=== PATIENT | female | born 1965 | race Two or more races ===

== ENCOUNTER → 2020-02-16 13:22 | Outpatient (BNVA) | payer MEDICAID, SELFPAY | PROVIDERS: PCP Nurse Practitioner Family; Referring Provider Nurse Practitioner Family; Visit Provider Internal Medicine Endocrinology, Diabetes & Metabolism | DX: E11.21 Type 2 diabetes mellitus with diabetic nephropathy (principal); E11.40 Type 2 diabetes mellitus with diabetic neuropathy, unspecified; Z79.84 Long term (current) use of oral hypoglycemic drugs; I10 Essential (primary) hypertension; E78.5 Hyperlipidemia, unspecified; E66.01 Morbid (severe) obesity due to excess calories; Z68.41 Body mass index [BMI] 40.0-44.9, adult; Z79.899 Other long term (current) drug therapy | CPT/HCPCS: 82947; 99214 ==

== ENCOUNTER 2020-03-20 12:47 | Outpatient (REF) | payer MEDICAID, SELFPAY ==
--- NOTE | 2020-03-20 13:00 | MM_ITS ---
EXAMINATION: MM SCREENING DIGITAL BREAST TOMOSYNTHESIS, BILATERAL CLINICAL INFORMATION: Screening. Asymptomatic. Remote history bilateral reduction mammoplasty. The lifetime risk of breast cancer based on the Tyrer-Cuzick Model is 15%. COMPARISON: Mammography: 02/18/2019, 02/10/2018, 10/28/2017, 02/18/2017 TECHNIQUE: Digital breast tomosynthesis is performed in both the craniocaudal and mediolateral oblique views along with computer-aided detection (CAD). Synthesized 2D images are generated from the tomosynthesis. FINDINGS: There are scattered areas of fibroglandular density (ACR BI-RADS breast composition Category b). There are no significant masses, abnormal calcifications, or other abnormalities. Parenchymal pattern is similar to prior studies. Again, there is stable scarring, greater on left with associated left bulky calcifications of fat necrosis again seen. No significant changes. MM/MM tomosynthesis screening BI IMPRESSION: No significant changes from prior studies. ASSESSMENT: BI-RADS 2: Benign RECOMMENDATION: Routine annual mammography screening. This patient's information was entered into a reminder system with a target due date for their next mammogram.
== END 2020-03-20 12:48 | disposition home or self-care (01) ==
LOC: HO.MAMMO 12:47
PROVIDERS: PCP Nurse Practitioner Family; Visit Provider Nurse Practitioner Family
DX: Z12.31 Encounter for screening mammogram for malignant neoplasm of breast (principal); K21.9 Gastro-esophageal reflux disease without esophagitis; R10.10 Upper abdominal pain, unspecified; E66.01 Morbid (severe) obesity due to excess calories; Z87.19 Personal history of other diseases of the digestive system
CPT/HCPCS: 77063; 77067; 99202

== ENCOUNTER 2020-04-07 12:04 | Outpatient (REF) | payer MEDICAID, SELFPAY | END 2020-04-07 12:05 | disposition home or self-care (01) | LOC: HO.LAB 12:04 | PROVIDERS: Visit Provider Internal Medicine | DX: Z20.828 Contact with and (suspected) exposure to other viral communicable diseases (principal) | CPT/HCPCS: C9803; U0003 ==

== ENCOUNTER → 2020-04-10 13:33 | Outpatient (BNVA) | payer MEDICAID, SELFPAY | PROVIDERS: PCP Nurse Practitioner Family; Referring Provider Nurse Practitioner Family; Visit Provider Internal Medicine Endocrinology, Diabetes & Metabolism | DX: Z76.89 Persons encountering health services in other specified circumstances (principal) ==

== ENCOUNTER 2020-04-25 10:51 | Outpatient (REF) | payer MEDICAID, SELFPAY | END 2020-04-25 10:52 | disposition home or self-care (01) | LOC: HO.LAB 10:51 | PROVIDERS: PCP Nurse Practitioner Family; Visit Provider Nurse Practitioner | DX: Z13.89 Encounter for screening for other disorder (principal) ==

== ENCOUNTER → 2020-05-09 09:30 | Outpatient (BNV) | payer MEDICAID, SELFPAY | PROVIDERS: PCP Nurse Practitioner Family; Visit Provider Internal Medicine Medical Oncology | DX: D47.1 Chronic myeloproliferative disease (principal); D32.9 Benign neoplasm of meninges, unspecified | CPT/HCPCS: 99212; 99213; 99214 ==

== ENCOUNTER 2020-05-14 13:51 | Emergency (ER) | payer MEDICAID, SELFPAY ==
[2020-05-14 14:07] VITALS: BP 125/62; PULSE 86; RESP 16; TEMP 36.4; O2SAT 98; BMI 39.4
[2020-05-14 19:55] VITALS: BP 153/77; PULSE 86; RESP 16; TEMP 35.8; O2SAT 96
--- NOTE | 2020-05-14 22:18 | ECG_ITS ---
Test Reason : ABDOMINAL PAIN Blood Pressure : / mmHG Vent. Rate : 074 BPM Atrial Rate : 074 BPM P-R Int : 128 ms QRS Dur : 114 ms QT Int : 430 ms P-R-T Axes : 064 -55 014 degrees QTc Int : 477 ms Normal sinus rhythm Left anterior fascicular block Voltage criteria for left ventricular hypertrophy Abnormal ECG When compared with ECG of 01-SEP-2019 21:51, No significant change was found Referred By: Rickey Horton Electronically Signed By:ALEXANDRO CORTEZ MD
--- NOTE | 2020-05-14 22:21 | ED.GENADULT ---
HPI - General Adult General Chief complaint: Abdominal Pain Stated complaint: back and abdominal pain Time Seen by Provider: 05/14/20 15:13 Source: patient Mode of arrival: ambulatory Limitations: no limitations and language barrier (French speaking, eligibility technician was used to obtain history) History of Present Illness HPI narrative: 55-year-old female who presents the emergency department for evaluation at abdominal pain. She states that the pain came on gradually yesterday and was intermittent and mild. She states that today the pain is more severe and constant. She runs or hand across her upper abdomen when asked to localize the pain. She also points to her bilateral upper flank area when asked to localize the pain. The pain is a constant, burning sensation which is 10/10 at its worst. She has noted urinary frequency and dysuria. She denied fever, chills, weakness, nausea or vomiting. She states that she has had a good appetite and has been able to eat and drink without any difficulty. This is her 1st episode of this type of pain. Related Data Home Medications Medication Instructions Recorded Confirmed albuterol mcg INHALATION 02/15/20 04/10/20 citalopram 40 mg PO DAILY 02/15/20 04/10/20 fluticasone propionate [Flovent] 2 puff INHALATION BID 02/15/20 04/10/20 folic acid 1 mg PO DAILY 02/15/20 04/10/20 loratadine [Claritin] 10 mg PO DAILY 02/15/20 04/10/20 ondansetron HCl 4 mg PO Q8H PRN 02/15/20 04/10/20 ruxolitinib [Jakafi] 5 mg PO BID 02/15/20 04/10/20 senna 8.6 mg PO BEDTIME 02/15/20 04/10/20 cholecalciferol (vitamin D3) 25 25 mcg PO DAILY 02/16/20 04/10/20 mcg (1,000 unit) capsule quetiapine [Seroquel] 50 mg PO BEDTIME 05/09/20 05/09/20 Previous Rx's Medication Instructions Recorded amlodipine 10 mg tablet 10 mg PO DAILY 90 Days #90 tab 02/16/20 atorvastatin 40 mg tablet 40 mg PO BEDTIME 90 Days #90 tab 02/16/20 lisinopril 5 mg tablet 5 mg PO DAILY 90 Days #90 tab 11/03/20 dicyclomine 20 mg tablet 20 mg PO QID 30 Days #120 tab 03/20/20 pantoprazole 40 mg tablet,delayed 40 mg PO BID #60 tab 03/20/20 release simethicone 180 mg capsule 180 mg PO QID 30 Days #120 cap 03/20/20 metformin 1,000 mg tablet 1,000 mg PO DAILY 90 Days #90 tab 04/10/20 sitagliptin 100 mg tablet 100 mg PO DAILY 90 Days #90 tab 04/10/20 oxycodone 5 mg PO Q4H PRN #14 tab 05/15/20 Allergies Allergy/AdvReac Type Severity Reaction Status Date / Time aspirin [ASPIRIN] Allergy Intermediate SWELLING/ITCHING, Verified 05/09/20 09:34 rash Penicillins Allergy Intermediate ITCHING Verified 05/09/20 09:34 vancomycin [VANCOMYCIN] AdvReac Intermediate RED MAN Verified 05/09/20 09:34 SYNDROME PER MD Review of Systems Review of Systems: Yes all other systems are reviewed and are negative Neurologic: Reports Abnormal speech present [facility] Past Medical History Medical History Asthma Diabetes type 2, controlled Diabetic nephropathy Diabetic neuropathy associated with type 2 diabetes mellitus Dyslipidemia Hypertension Morbid obesity due to excess calories Vitamin B12 deficiency Surgical History H/O stem cell transplant History of partial hysterectomy Hx of breast reduction, elective Hx of colonoscopy Hx of esophagogastroduodenoscopy Family History Family History Father Heart problem HTN (hypertension) Mother Diabetes Family/Other Diabetes HTN (hypertension) Heart problem Social History Social History Alcohol intake: current Alcohol intake frequency: does not drink Smoking Status: Former smoker Advance Directives: No Advance Directives Information Provided: Yes Physical Exam Vital Signs: Vital Signs: Last Vital Signs Temp 98.0 F 05/14/20 22:31 Pulse 70 05/15/20 01:24 Resp 16 05/15/20 01:24 BP 143/69 H 05/15/20 01:24 Pulse Ox 98 05/15/20 01:24 Body Mass Index 39.4 Const: General: cooperative Nutritional Appearance: obese Orientation/consciousness: oriented to person and oriented to place Limitations: no limitations HENMT: Head: Yes normal to inspection, Yes normocephalic and Yes atraumatic Ears: external ears normal General nose exam: Normal external nose present Face and sinus: Yes normal facial exam Mouth: Normal oral and palatal mucosa present Throat: Yes posterior oropharynx normal Eyes: Periorbital: periorbital findings normal Eyelids: Yes eyelids normal Conjunctivae: conjunctivae normal Sclerae: sclerae normal Corneas: corneas normal Pupils: Equal, round and reactive pupils present Direct Ophthalmoscopy: normal light reflex Neck: Neck: Yes full ROM, Yes no lymphadenopathy, Yes no meningeal signs, Yes trachea midline and Yes supple Chest: Chest palpation & inspection: normal inspection of the chest and normal palpation of entire chest wall Resp: Effort & Inspection: normal respiratory effort and able to speak in complete sentences Auscultation: clear to auscultation bilaterally Cardio: Rate: regular rate Rhythm: regular rhythm Heart sounds: S1 normal heart sound present, S2 normal heart sound present and no murmurs GI: Inspection: Yes normal to inspection and Yes obesity Palpation (GI): Soft to palpation, Tenderness to palpation present (GI) in the LUQ (Moderate) and in the RUQ (Moderate), no guarding, not rigid and Hepatomegaly present : General: Yes CVA tenderness bilateral (Moderate) Back/Spine/Pelvis: Back: CVA tenderness Cervical Spine: normal cervical lordosis Thoracic/Lumbar Spine: thoracic and lumbar spine normal to inspection Skin: Lesions: no lesions Rashes: no rashes Wounds: no wounds Neuro: General: oriented to person, oriented to place and no meningeal signs Cranial nerves: Yes Equal, round and reactive pupils present Cognition (Neuro): normal cognition Speech: Abnormal speech present Motor exam (neuro): 5/5 motor strength present throughout Extrem: General: Yes normal to inspection and Yes full ROM Psych: Appearance: well kempt Mental Status: mental status grossly normal Speech and movement: Normal speech and movement present Affect: normal affect Attitude: cooperative Thought process: Normal thought process present Thought content: Normal thought content present Course Course Course Narrative: 55-year-old female with multiple medical problems including diabetes mellitus, hyperlipidemia, GERD, CML, chronic kidney disease who presents to the emergency department for evaluation of 2 days of worsening abdominal pain. The patient did upper abdominal tenderness and bilateral CVA tenderness. I do not have a clear etiology for her pain. I did order an abdominal pain workup to include a CT scan of the abdomen pelvis with IV contrast as well. She was ordered to get normal saline IV x1 L, morphine 4 mg IV and Zofran 4 mg IV. 0556 the patient's laboratory evaluation revealed anemia but this is consistent with her CML. The patient's CT scan did not reveal a clear cause for the patient's pain. She does have incidental 3 mm left kidney stone and a 1.8 cm renal cyst. Urinalysis did reveal positive blood with 5-9 red blood cells and only 1-4 white blood cells. The patient did not get any relief with the initial morphine and she got a 2nd dose of morphine 4 mg IV, Toradol 15 mg IV with no relief for pain. She was given a GI cocktail of Maalox, viscous lidocaine and with no relief for discomfort. This point I do not have a clear etiology for the patient's pain. The patient will be discharged home. She is advised to stay on a bland diet for the next 24 hours. She was advised to take Tylenol and oxycodone for her pain. [facility] search revealed prescriptions for tramadol on a regular basis. She was advised to stop taking tramadol wall taking oxycodone. Medical Decision Making Lab Data Result diagrams: 05/14/20 23:48 05/14/20 23:48 Labs: Lab Results 05/14/20 05/14/20 05/15/20 Range/Units 23:48 23:48 01:29 WBC 7.4 (4.8-10.8) X10*3/uL RBC 3.27 L (4.20-5.50) X10*6/uL Hgb 9.2 L (12.0-16.0) g/dl Hct 28.3 L (37-47) % MCV 86.5 (80-98) fL MCH 28.1 (27.0-33.0) pg MCHC 32.5 (31.0-35.0) g/dl RDW 14.5 (11.0-16.0) % Plt Count 253 (160-400) X10*3/uL MPV 9.2 L (9.4-12.3) fL Immature Gran % (Auto) 0.5 H (0.0-0.4) % Neut % (Auto) 57.3 (45-73) % Lymph % (Auto) 33.1 (20-40) % [place] % (Auto) 7.1 (2-11) % Eos % (Auto) 1.9 (0-4) % Baso % (Auto) 0.1 (0-2) % Lymph # (Auto) 2.5 (1.2-4.9) X10*3/uL [place] # (Auto) 0.5 (0.1-1.2) X10*3/uL Eos # (Auto) 0.1 (0.0-0.4) X10*3/uL Baso # (Auto) 0.0 (0.0-0.2) X10*3/uL Abs Immat Gran (auto) 0.04 H (0.00-0.03) X10*3/uL Absolute Neuts (auto) 4.3 (2.0-8.3) X10*3/uL Absolute Nucleated RBC 0.000 (0.0-0.012) X10*3/uL Nucleated RBC % (auto) 0.0 (0.0-0.2) /100WBC Sodium 144 (135-145) mmol/L Potassium 4.5 (3.3-5.1) mmol/l Chloride 108 (96-108) mmol/L Carbon Dioxide 23 (22-29) mmol/L Anion Gap 18 (12-20) BUN 25 H (9-16) mg/dL Creatinine 1.41 H (0.5-1.4) mg/dL Estim Creat Clear Calc 57.4 Estimated GFR 38 Random Glucose 102 (60-115) mg/dL Calcium 8.6 (8.4-10.2) mg/dL Total Bilirubin 0.3 (0.0-1.0) mg/dL AST 15 (5-31) U/L ALT 18 (0-31) U/L Alkaline Phosphatase 87 (39-117) U/L Total Protein 7.2 (6.5-8.0) g/dL Albumin 4.2 (3.5-5.0) g/dL Lipase 43 (8-78) U/L Urine Color YELLOW Urine Appearance CLEAR Urine pH 7.0 (5.0-8.0) Ur Specific [place] 1.020 (1.005-1.025) Urine Protein NEG (NEG-TRACE) MG/DL Urine Glucose (UA) NEG (NEG) MG/DL Urine Ketones NEG (NEG) MG/DL Urine Blood 1+ H (NEG) Urine Nitrite NEG (NEG) Ur Leukocyte Esterase NEG (NEG) Urine RBC 5-9 H (0) /HPF Urine WBC 1-4 (0-4) /HPF Ur Squamous Epith Cells 1+ /LPF Urine Bacteria 1+ /LPF Urine Mucus 1+ /LPF ECG Data Attestation: I personally reviewed and interpreted this ECG as follows: Interpretation: 2226: Normal sinus rhythm with a rate of 74, normal MS, prolonged QRS of 114 milliseconds, prolonged QTC of 477 milliseconds, left anterior fascicular block, no ST segment elevation, no ST segment depression, nonspecific flattening of the T-wave in lead 3, no old EKG for comparison. No evidence for cardiac ischemia or myocardial injury. Discharge Plan Discharge Clinical Impression: Abdominal pain Qualifiers: Abdominal location: upper abdomen, unspecified Qualified Code(s): R10.10 - Upper abdominal pain, unspecified Patient Disposition: Home, Self-Care Instructions: Abdominal Pain (ED) Additional Instructions: Your laboratory evaluation was unremarkable. The CT scan of your abdomen pelvis did not reveal a clear cause for your pain. Take Tylenol (acetaminophen) 500 mg pills, 2 pills every 4 to 6 hours as needed for pain. For pain not relieved by Tylenol take oxycodone 5 mg pills, 1 pill every 4-6 hours as needed for pain. This medication may be constipated and sleepy. Stop taking your tramadol while you are taking oxycodone. Follow-up with your doctor in 2 days. Please return to the emergency department if your symptoms get worse or if you develop any symptoms that are concerning to you. Prescriptions: New oxycodone 5 mg tablet 5 mg PO Q4H PRN (Reason: pain) Qty: 14 RF: 0 No Action lisinopril 5 mg tablet 5 mg PO DAILY 90 Days Qty: 90 RF: 1 citalopram 40 mg Tablet 40 mg PO DAILY RF: 0 ondansetron HCl 4 mg Tablet 4 mg PO Q8H PRN (Reason: Nausea) RF: 0 folic acid 1 mg Tablet 1 mg PO DAILY RF: 0 albuterol 90 mcg/actuation Aerosol INHALATION RF: 0 loratadine [Claritin] 10 mg Tablet 10 mg PO DAILY RF: 0 Flovent 110 mcg/actuation Hfa Aerosol Inhaler 2 puff INHALATION BID RF: 0 senna 8.6 mg Capsule 8.6 mg PO BEDTIME RF: 0 Jakafi 5 mg Tablet 5 mg PO BID RF: 0 quetiapine [Seroquel] 50 mg Tablet 50 mg PO BEDTIME RF: 0 dicyclomine 20 mg tablet 20 mg PO QID 30 Days Qty: 120 RF: 1 simethicone 180 mg capsule 180 mg PO QID 30 Days Qty: 120 RF: 3 pantoprazole 40 mg tablet,delayed release (DR/EC) 40 mg PO BID Qty: 60 RF: 3 cholecalciferol (vitamin D3) 25 mcg (1,000 unit) capsule 25 mcg PO DAILY RF: 0 amlodipine 10 mg tablet 10 mg PO DAILY 90 Days Qty: 90 RF: 1 atorvastatin 40 mg tablet 40 mg PO BEDTIME 90 Days Qty: 90 RF: 1 metformin 1,000 mg tablet 1,000 mg PO DAILY 90 Days Qty: 90 RF: 1 Januvia 100 mg tablet 100 mg PO DAILY 90 Days Qty: 90 RF: 1
[2020-05-14 22:31] VITALS: BP 107/57; PULSE 73; RESP 14; TEMP 36.7; O2SAT 97
[2020-05-14 23:53] LABS: Basophils Percent Auto 0.1 % (0-2); Eosinophils Absolute Auto 0.1 X10*3/uL (0.0-0.4); Eosinophils Percent Auto 1.9 % (0-4); Hematocrit 28.3 % (37-47); Hemoglobin 9.2 g/dl (12.0-16.0); Imm Gran Abs Auto 0.04 X10*3/uL (0.00-0.03); Imm Gran Pct Auto 0.5 % (0.0-0.4); Lymphocytes Absolute Auto 2.5 X10*3/uL (1.2-4.9); Lymphocytes Percent Auto 33.1 % (20-40); MANUAL DIFF FLAG NO; Mean Corpuscular HGB Conc 32.5 g/dl (31.0-35.0); Mean Corpuscular Hemoglobin 28.1 pg (27.0-33.0); Mean Corpuscular Volume 86.5 fL (80-98); Mean Platelet Volume 9.2 fL (9.4-12.3); Monocytes Absolute Auto 0.5 X10*3/uL (0.1-1.2); Monocytes Percent Auto 7.1 % (2-11); Neutrophils Absolute Auto 4.3 X10*3/uL (2.0-8.3); Neutrophils Percent Auto 57.3 % (45-73); Platelet Count 253 X10*3/uL (160-400); Red Blood Count 3.27 X10*6/uL (4.20-5.50); Red Cell Distribution Width 14.5 % (11.0-16.0); White Blood Count 7.4 X10*3/uL (4.8-10.8)
[2020-05-15 00:20] LABS: Alanine Aminotransferase 18 U/L (0-31); Albumin Level 4.2 g/dL (3.5-5.0); Alkaline Phosphatase 87 U/L (39-117); Anion Gap 18 (12-20); Aspartate Amino Transferase 15 U/L (5-31); Bilirubin Total 0.3 mg/dL (0.0-1.0); Blood Urea Nitrogen 25 mg/dL (9-16); Calcium 8.6 mg/dL (8.4-10.2); Carbon Dioxide 23 mmol/L (22-29); Chloride 108 mmol/L (96-108); Creatinine Clr Calc Pharmacy 57.4; Estimated Glomerular Filt Rate 38; Glucose Random 102 mg/dL (60-115); Lipase 43 U/L (8-78); Potassium 4.5 mmol/l (3.3-5.1); Sodium 144 mmol/L (135-145); Total Protein 7.2 g/dL (6.5-8.0)
--- NOTE | 2020-05-15 00:30 | CT_ITS ---
EXAMINATION: CT ABDOMEN AND PELVIS WITHOUT CONTRAST CLINICAL INFORMATION: Upper abdominal and bilateral flank pain. COMPARISON: 09/01/2019 TECHNIQUE: Multidetector volumetric imaging was performed from the superior aspect of the liver through the pubic symphysis. Sagittal and coronal reformatted images were obtained on the technologist's workstation. This CT examination was performed using dose optimization techniques as appropriate, variously including the following: *Automated exposure control *Adjustment of mA and/or kV according to patient size (this includes techniques or standardized protocols for targeted exams where dose is matched to indication/reason for exam; i.e. extremities or head) *Use of iterative reconstruction technique DLP: 941 mGy-cm FINDINGS: LUNG BASES: Right basilar atelectasis. The visualized cardiac structures are unremarkable. LIVER, GALLBLADDER, AND BILIARY TREE: The liver is normal in size and shape with decreased attenuation. No focal hepatic lesion or biliary ductal dilatation is present. The gallbladder is unremarkable with no evidence of radiopaque gallstones, gallbladder wall thickening, or obvious pericholecystic inflammatory changes. PANCREAS: Unremarkable. SPLEEN: Unremarkable. ADRENAL GLANDS: Unremarkable. KIDNEYS AND URETERS: The kidneys are normal in size, shape, and attenuation. No hydronephrosis or hydroureter. 0.3 cm left midpole calculus there is a right lower pole 1.8 cm cyst. BLADDER: Unremarkable. GASTROINTESTINAL TRACT: Small hiatal hernia. The stomach is otherwise unremarkable. Normal caliber small bowel. There is no obstruction. Normal appendix. No colonic wall thickening or inflammatory change. Mild colonic stool burden. No free air. No free fluid. ABDOMINAL WALL: No significant hernia is appreciated. LYMPH NODES: Normal. VASCULAR: Normal caliber aorta with mild atherosclerotic calcifications. PELVIC VISCERA: The uterus is not seen. No adnexal mass. OSSEOUS STRUCTURES: No acute or suspicious osseous abnormality. Mild degenerative changes noted in the spine. CT/CT abdomen pelvis wo con IMPRESSION: No acute finding of the abdomen or pelvis. Hepatic steatosis. Nonobstructing left midpole renal calculus which is unchanged from prior.
[2020-05-15 01:24] VITALS: BP 143/69; PULSE 70; RESP 16; O2SAT 98
[2020-05-15] MEDS: 0.9 % Sodium Chloride 1,000 ML 999 ML IV (01:26)
[2020-05-15] MEDS: ondansetron HCL 4 MG/2 ML VIAL IVPUSH (01:26)
[2020-05-15] MEDS: Morphine Sulfate 4 MG/ML CARTRIDGE IVPUSH ×2 (01:27→02:42)
[2020-05-15 01:35] LABS: Glucose Urine UA NEG (NEG); Leukocyte Esterase Urine NEG (NEG); Nitrite Urine NEG (NEG); Urine Blood 1+ (NEG); Urine Ketones NEG (NEG); Urine Protein NEG (NEG-TRACE)
[2020-05-15 01:37] LABS: Appearance Urine CLEAR; Color Urine YELLOW
[2020-05-15 01:57] LABS: Bacteria Urine 1+ /LPF; Mucus Urine 1+ /LPF; Squamous Epithelial Cell Urine 1+ /LPF
[2020-05-15] MEDS: Magnesium Hydrox/Alum Hydrox 30 ML ORAL.SUSP PO (05:35)
[2020-05-15] MEDS: Lidocaine HCl Viscous 2 % 15 ML SOLUTION MUCOUS MEM (05:35)
[2020-05-15] MEDS: PHENobarb/Hyoscy/Atropine/Scop 10 ML ELIXIR PO (05:36)
[2020-05-15 06:00] VITALS: BP 98/48; PULSE 72; RESP 14; O2SAT 95
[2020-05-15] MEDS: Ketorolac Tromethamine 15 MG/ML VIAL IV (06:19)
== END 2020-05-15 06:24 | disposition home or self-care (01) ==
PROVIDERS: Emergency Provider Emergency Medicine Emergency Medical Services; PCP Nurse Practitioner Family
DX: R10.10 Upper abdominal pain, unspecified (principal); M54.5 Low back pain; Z79.899 Other long term (current) drug therapy
CPT/HCPCS: 36415; 74176; 80053; 81001; 83690; 85025; 93005; 96361; 96374; 96375; 96376; 99284; J1885; J2270; J2405

== ENCOUNTER 2020-06-26 10:39 | Outpatient (REF) | payer MEDICAID, SELFPAY | END 2020-06-26 10:40 | disposition home or self-care (01) | LOC: HO.LNP 10:39 | PROVIDERS: Visit Provider Nurse Practitioner | DX: R10.10 Upper abdominal pain, unspecified (principal); K21.9 Gastro-esophageal reflux disease without esophagitis | CPT/HCPCS: 87338 ==

== ENCOUNTER → 2020-07-10 14:08 | Outpatient (BNVA) | payer MEDICAID, SELFPAY | PROVIDERS: PCP Nurse Practitioner Family; Visit Provider Nurse Practitioner ==

== ENCOUNTER → 2020-07-17 13:06 | Outpatient (BNVA) | payer MEDICAID, SELFPAY | PROVIDERS: PCP Nurse Practitioner Family; Visit Provider Internal Medicine Endocrinology, Diabetes & Metabolism | DX: E11.40 Type 2 diabetes mellitus with diabetic neuropathy, unspecified (principal); E11.21 Type 2 diabetes mellitus with diabetic nephropathy; E66.01 Morbid (severe) obesity due to excess calories; E78.5 Hyperlipidemia, unspecified; I10 Essential (primary) hypertension | CPT/HCPCS: 82947; 99212 ==

== ENCOUNTER → 2020-07-25 08:01 | Outpatient (REF) | payer MEDICAID, SELFPAY ==
--- NOTE | ~2020-07-25 | NM_ITS ---
EXAMINATION: BILIARY TRACT IMAGING STUDY WITH CCK CLINICAL INFORMATION: Periumbilical pain.. COMPARISON: No previous biliary scan is available for comparison. The diagnostic CT scan of the abdomen and pelvis, dated 05/15/2020, is available for comparison. TECHNIQUE: Serial gamma scintillation camera images were obtained over the abdomen for a total observation period of 110 minutes following the intravenous administration of 5.0 mCi Tc-99m Mebrofenin. FINDINGS: There is good concentration of activity in the liver by 5 minutes post injection. Biliary activity is visualized by 10 minutes. The gallbladder is well visualized by 30 minutes. Small bowel is well visualized by 35 minutes. At 80 minutes post radiopharmaceutical injection, a 30-minute infusion of 2.3 micrograms Sincalide was then begun and an additional third minutes of images were obtained. There is only minimal gallbladder emptying during the sincalide infusion. At the end of the study there is abnormal retention in the gallbladder but almost complete clearance of activity from the liver and visualization of diffuse small bowel activity. The calculated gallbladder ejection fraction is 19% (normal gallbladder ejection fraction is greater than 35%). NM/NM hepatobiliary w pharm IMPRESSION: 1. Visualization of the gallbladder is evidence of a patent cystic duct and strong evidence against the diagnosis of acute cholecystitis. The common bile duct is patent. Liver function appears normal. 2. Poor gallbladder emptying and a low gallbladder ejection fraction are evidence of impaired gallbladder contractility and most likely due to chronic cholecystitis.
== END ==
LOC: HO.NUCMED 08:01
PROVIDERS: Visit Provider Nurse Practitioner
DX: R10.33 Periumbilical pain (principal); R14.0 Abdominal distension (gaseous); K21.9 Gastro-esophageal reflux disease without esophagitis
CPT/HCPCS: 78227; A9537; J2805

== ENCOUNTER → 2020-08-08 13:18 | Outpatient (BNVA) | payer MEDICAID, SELFPAY | PROVIDERS: Visit Provider Nurse Practitioner ==

== ENCOUNTER → 2020-08-10 14:08 | Outpatient (BNVA) | payer MEDICAID, SELFPAY | PROVIDERS: Visit Provider Surgery | DX: K82.8 Other specified diseases of gallbladder (principal); E66.01 Morbid (severe) obesity due to excess calories | CPT/HCPCS: 99202 ==

== ENCOUNTER 2020-09-05 09:20 | Outpatient (REF) | payer MEDICAID, SELFPAY | END 2020-09-05 09:21 | disposition home or self-care (01) | LOC: HO.LAB 09:20 | PROVIDERS: Visit Provider Internal Medicine | DX: Z20.822 Contact with and (suspected) exposure to COVID-19 (principal) | CPT/HCPCS: C9803; U0003; U0005 ==

== ENCOUNTER → 2020-10-04 14:31 | Outpatient (BNVA) | payer MEDICAID, SELFPAY | PROVIDERS: PCP Internal Medicine; Referring Provider Internal Medicine; Visit Provider Surgery | DX: K82.8 Other specified diseases of gallbladder (principal) | CPT/HCPCS: 99212 ==

== ENCOUNTER 2020-10-05 13:05 | Emergency (ER) | payer MEDICAID, SELFPAY ==
[2020-10-05 14:11] VITALS: BP 105/61; PULSE 74; RESP 18; TEMP 37; O2SAT 98; BMI 85.9
--- NOTE | 2020-10-05 14:53 | ED.GENADULT ---
HPI - General Adult General Chief complaint: General Medical Stated complaint: CONGESTION AND NOSE PAIN Time Seen by Provider: 10/05/20 14:53 Source: patient Limitations: language barrier History of Present Illness HPI narrative: Patient complaining of facial pain nasal congestion sinus pressure. Worsening over the past 24 hours 8/10 pain. No nausea vomiting chest pain shortness of breath. No dental pain at this time. Patient has longstanding history of asthma diabetes. Patient also has a history of obstructive sleep apnea reflux. No exposure to COVID-19. Patient has been fully vaccinated for COVID-19. Patient also has a small bump in the inside of her nasal passage Related Data Home Medications Medication Instructions Recorded Confirmed albuterol mcg INHALATION 02/15/20 10/04/20 citalopram 40 mg PO DAILY 02/15/20 10/04/20 fluticasone propionate [Flovent] 2 puff INHALATION BID 02/15/20 10/04/20 loratadine [Claritin] 10 mg PO DAILY 02/15/20 10/04/20 ondansetron HCl 4 mg PO Q8H PRN 02/15/20 10/04/20 ruxolitinib [Jakafi] 5 mg PO BID 02/15/20 10/04/20 senna 8.6 mg PO BEDTIME 02/15/20 10/04/20 cholecalciferol (vitamin D3) 25 25 mcg PO DAILY 02/16/20 10/04/20 mcg (1,000 unit) capsule quetiapine [Seroquel] 50 mg PO BEDTIME 05/09/20 10/04/20 acetaminophen 500 mg tablet 500 mg PO Q6H PRN 07/10/20 10/04/20 tramadol 50 mg tablet 50 mg PO Q8H PRN 07/10/20 10/04/20 zolpidem 5 mg tablet 5 mg PO BEDTIME PRN 07/17/20 10/04/20 Previous Rx's Medication Instructions Recorded oxycodone 5 mg PO Q4H PRN #14 tab 05/15/20 hyoscyamine sulfate 0.125 mg 0.125 mg PO BID-QID PRN 30 Days 07/10/20 sublingual tablet #90 tab metformin 1,000 mg tablet 1,000 mg PO DAILY 90 Days #90 tab 07/17/20 sitagliptin 50 mg tablet 50 mg PO DAILY 90 Days #90 tab 07/17/20 folic acid 1 mg PO DAILY tab 07/24/20 folic acid 1 mg PO DAILY #90 tab 07/25/20 [id number]-[id number] 1 cap PO .QIDAC 30 Days #120 cap 07/26/20 24,000-76,000-120,000 unit capsule,delayed rel simethicone 180 mg capsule 180 mg PO QID 30 Days #120 cap 08/08/20 amlodipine 10 mg tablet 10 mg PO DAILY 90 Days #90 tab 08/23/20 canagliflozin 100 mg tablet 100 mg PO DAILY 90 Days #90 tab 08/23/20 pantoprazole 40 mg tablet,delayed 40 mg PO BID #56 tab 09/04/20 release lisinopril 5 mg tablet 5 mg PO DAILY 90 Days #90 tab 09/18/20 atorvastatin 40 mg tablet 40 mg PO BEDTIME 90 Days #90 tab 09/19/20 doxycycline hyclate 100 mg PO BID #10 cap 10/05/20 mupirocin 1 appl TOPICAL BID 10 Days #15 g 10/05/20 Allergies Allergy/AdvReac Type Severity Reaction Status Date / Time aspirin [ASPIRIN] Allergy Intermediate SWELLING/ITCHING, Verified 10/05/20 14:11 rash Penicillins Allergy Intermediate ITCHING Verified 10/05/20 14:11 vancomycin [VANCOMYCIN] AdvReac Intermediate RED MAN Verified 10/05/20 14:11 SYNDROME PER MD Review of Systems Constitutional: Constitutional: Denies chills, Denies fatigue, Denies fever(s) and Denies headache(s) Eyes: Eyes: Denies itchy eyes ENT: Reports facial pain, Denies headache(s), Reports nasal congestion, Reports nasal discharge, Reports sinus pressure and Denies sore throat Cardiovascular: Cardiovascular: Denies chest pain and Denies dyspnea Respiratory: Respiratory: Denies cough and Denies dyspnea Gastrointestinal: Gastrointestinal: Denies nausea and Denies vomiting Musculoskeletal: Musculoskeletal: Reports no additional musculoskeletal complaints Neurologic: Denies headache(s) Endocrine: Endocrine: Denies fatigue Allergic/Immunologic: Allergic/Immunologic: Denies urticaria and Denies itchy eyes PMFSH Past Medical History Attestation statement: The following information was validated with the patient. Medical History Asthma Biliary dyskinesia Chronic myeloproliferative disease CKD stage 3 due to type 2 diabetes mellitus Diabetes type 2, controlled Diabetic nephropathy Diabetic neuropathy associated with type 2 diabetes mellitus Dyslipidemia GERD (gastroesophageal reflux disease) History of gastritis Hypertension Morbid obesity due to excess calories Upper abdominal pain Vitamin B12 deficiency Surgical History H/O stem cell transplant History of partial hysterectomy Hx of breast reduction, elective Hx of colonoscopy Hx of esophagogastroduodenoscopy Family History Family History Father Heart problem HTN (hypertension) Mother Diabetes Family/Other Diabetes HTN (hypertension) Heart problem Sister Cancer Social History Social History Alcohol intake: current Alcohol intake frequency: does not drink Advance Directives: Yes Advance Directives Information Provided: Yes Advance Directives on File: No Patient : No Physical Exam Vital Signs: Vital Signs: Last Vital Signs Temp 98.6 F 10/05/20 14:11 Pulse 74 10/05/20 14:11 Resp 18 10/05/20 14:11 BP 105/61 10/05/20 14:11 Pulse Ox 98 10/05/20 14:11 Body Mass Index 85.9 vital signs have been reviewed as normal and appeared to be correct. Blood pressure normal. Heart rate normal. Respiration rate normal. Temperature normal. Oxygen saturation normal. Appearance: Alert. Oriented X3. No acute distress. Head: Normal external exam. Normocephalic. Atraumatic. No Hickman signs noted. No raccoon eyes noted Eyes: PERRLA. EOMI. Conjunctiva and sclera normal. Eyelids normal. ENT: Pharynx normal. Uvula midline. Positive nasal congestion sinus pressure positive sinus tenderness maxillary frontal right greater than left. Right naris patient has a small area of erythema medial aspect not appear fluctuant. Neck: Soft full range of motion, no JVD CVS: Heart regular rate and rhythm no murmurs and rubs Respiratory: Breath sounds are clear to auscultation bilaterally. No accessory muscle use noted. Skin: Skin warm and dry. Normal skin color. No rashes noted Extremities: No lower extremity edema. Extremities exhibit normal range of motion. Extremities nontender. Patient ambulatory Neuro: Oriented X 3. No motor deficit. No sensory deficit. Reflexes normal. Course Course Course Narrative: Differential diagnosis: Sinusitis URI Viral syndrome seasonal allergies Right nasal abscess Systems consistent with sinusitis Will also prescribe Bactroban nasally Discharge Plan Discharge Clinical Impression: Sinusitis Patient Disposition: Home, Self-Care Instructions: Sinusitis (ED) Prescriptions: New doxycycline hyclate 100 mg capsule 100 mg PO BID Qty: 10 RF: 0 mupirocin 2 % ointment 1 appl topical BID 10 Days Qty: 15 RF: 0 No Action folic acid 1 mg Tablet 1 mg PO DAILY RF: 0 Creon 24,000-76,000 -120,000 unit capsule,delayed release(DR/EC) 1 cap PO .QIDAC 30 Days Qty: 120 RF: 6 Invokana 100 mg tablet 100 mg PO DAILY 90 Days Qty: 90 RF: 2 amlodipine 10 mg tablet 10 mg PO DAILY 90 Days Qty: 90 RF: 1 pantoprazole 40 mg tablet,delayed release (DR/EC) 40 mg PO BID Qty: 56 RF: 1 lisinopril 5 mg tablet 5 mg PO DAILY 90 Days Qty: 90 RF: 1 atorvastatin 40 mg tablet 40 mg PO BEDTIME 90 Days Qty: 90 RF: 1 folic acid 1 mg Tablet 1 mg PO DAILY Qty: 90 RF: 3 citalopram 40 mg Tablet 40 mg PO DAILY RF: 0 ondansetron HCl 4 mg Tablet 4 mg PO Q8H PRN (Reason: Nausea) RF: 0 albuterol 90 mcg/actuation Aerosol INHALATION RF: 0 loratadine [Claritin] 10 mg Tablet 10 mg PO DAILY RF: 0 Flovent 110 mcg/actuation Hfa Aerosol Inhaler 2 puff INHALATION BID RF: 0 senna 8.6 mg Capsule 8.6 mg PO BEDTIME RF: 0 Jakafi 5 mg Tablet 5 mg PO BID RF: 0 quetiapine [Seroquel] 50 mg Tablet 50 mg PO BEDTIME RF: 0 oxycodone 5 mg tablet 5 mg PO Q4H PRN (Reason: pain) Qty: 14 RF: 0 tramadol 50 mg tablet 50 mg PO Q8H PRNRF: 0 acetaminophen [Tylenol Extra Strength] 500 mg tablet 500 mg PO Q6H PRNRF: 0 hyoscyamine sulfate [Levsin/SL] 0.125 mg tablet, sublingual 0.125 mg PO BID-QID PRN (Reason: cramping) 30 Days Qty: 90 RF: 6 cholecalciferol (vitamin D3) 25 mcg (1,000 unit) capsule 25 mcg PO DAILY RF: 0 zolpidem [Ambien] 5 mg tablet 5 mg PO BEDTIME PRNRF: 0 metformin 1,000 mg tablet 1,000 mg PO DAILY 90 Days Qty: 90 RF: 1 Januvia 50 mg tablet 50 mg PO DAILY 90 Days Qty: 90 RF: 2 simethicone 180 mg capsule 180 mg PO QID 30 Days Qty: 120 RF: 3 Referrals: Kalpana Baptiste MD [Primary Care Provider] - 2 days Print Language: [place] Leonean
== END 2020-10-05 15:35 | disposition home or self-care (01) ==
PROVIDERS: Emergency Provider Emergency Medicine; PCP Internal Medicine
DX: J32.8 Other chronic sinusitis (principal); E11.22 Type 2 diabetes mellitus with diabetic chronic kidney disease; I12.9 Hypertensive chronic kidney disease with stage 1 through stage 4 chronic kidney disease, or unspecified chronic kidney disease; N18.30 Chronic kidney disease, stage 3 unspecified; E78.5 Hyperlipidemia, unspecified; E66.01 Morbid (severe) obesity due to excess calories; Z79.02 Long term (current) use of antithrombotics/antiplatelets; Z79.899 Other long term (current) drug therapy; Z79.84 Long term (current) use of oral hypoglycemic drugs
CPT/HCPCS: 99283

== ENCOUNTER 2020-10-11 10:46 | Outpatient (REF) | payer MEDICAID, SELFPAY ==
--- NOTE | ~2020-10-11 | XR_ITS ---
EXAMINATION: XR CHEST CLINICAL INFORMATION: Cough COMPARISON: Chest radiographs 05/17/2019, 02/03/2019 TECHNIQUE: 2 views of the chest were obtained. FINDINGS: The lungs appear grossly clear with no lobar or segmental airspace consolidation, groundglass opacity, or effusion. The costophrenic sulci are clear. The heart is normal in size. The hilar and mediastinal contours and bony structures are similar to prior study. XR/XR chest 2V IMPRESSION: Unremarkable examination.
== END 2020-10-11 10:47 | disposition home or self-care (01) ==
LOC: HO.XRAY 10:46
PROVIDERS: Absent Provider Internal Medicine; PCP Internal Medicine; Visit Provider Emergency Medicine
DX: R05 Cough (principal)
CPT/HCPCS: 71046

== ENCOUNTER 2020-11-03 12:26 | Emergency (ER) | payer MEDICAID, SELFPAY ==
--- NOTE | ~2020-11-03 | CT_ITS ---
EXAMINATION: CT ABDOMEN AND PELVIS WITHOUT CONTRAST CLINICAL INFORMATION: Bilateral flank pain. COMPARISON: CT abdomen and pelvis without contrast. TECHNIQUE: Multidetector volumetric imaging was performed from the superior aspect of the liver through the pubic symphysis. Sagittal and coronal reformatted images were obtained on the technologist's workstation. This CT examination was performed using dose optimization techniques as appropriate, variously including the following: *Automated exposure control *Adjustment of mA and/or kV according to patient size (this includes techniques or standardized protocols for targeted exams where dose is matched to indication/reason for exam; i.e. extremities or head) *Use of iterative reconstruction technique DLP: 1048 mGy-cm FINDINGS: LUNG BASES: The lung bases are clear. There is a right basilar atelectasis. Heart size is normal. LIVER, GALLBLADDER, AND BILIARY TREE: The liver is normal in size, shape, and attenuation. No focal hepatic lesion or biliary ductal dilatation is present. The gallbladder is unremarkable with no evidence of radiopaque gallstones, gallbladder wall thickening, or obvious pericholecystic inflammatory changes. PANCREAS: Unremarkable. SPLEEN: Unremarkable. ADRENAL GLANDS: Unremarkable. KIDNEYS AND URETERS: The kidneys are normal in size, shape, and attenuation. There is a 5 mm nonobstructive radiopaque calculi mid pole left kidney. No caliectasis or hydronephrosis seen. There is no perinephric stranding. BLADDER: Unremarkable. GASTROINTESTINAL TRACT: There is scattered stool, diverticuli and gas seen throughout the colon without significant distention. The small bowel loops are normal caliber. No free air or free fluid seen. ABDOMINAL WALL: No significant hernia is appreciated. LYMPH NODES: No abnormal size lymph nodes or mass seen. VASCULAR: There is atherosclerotic calcification of abdominal aorta. PELVIC VISCERA: The uterus is atrophied or surgically absent. No adnexal mass or free fluid seen. No evidence of hernia. . OSSEOUS STRUCTURES: There are degenerative disc changes with vacuum disc phenomena L4-L5 disc level. No lytic or sclerotic process. CT/CT abdomen pelvis wo con IMPRESSION: No acute intra-abdominal process seen. Nonobstructive 5 mm radiopaque calculi mid pole left kidney. No hydroureteronephrosis seen in either kidney. Mild constipation.
[2020-11-03 12:34] VITALS: BP 113/61; PULSE 81; RESP 20; TEMP 37.1; O2SAT 98; BMI 38.7
[2020-11-03 13:01] LABS: Glucose Urine UA 500 MG/DL (NEG); Leukocyte Esterase Urine 1+ (NEG); Nitrite Urine NEG (NEG); UACC Culture Trigger YES; Urine Blood 1+ (NEG); Urine Ketones NEG (NEG); Urine Protein NEG (NEG-TRACE)
[2020-11-03 13:04] LABS: Appearance Urine CLEAR; Color Urine YELLOW
[2020-11-03 13:19] LABS: Mucus Urine 2+ /LPF; Squamous Epithelial Cell Urine 2+ /LPF
[2020-11-03 14:13] LABS: MANUAL DIFF FLAG NO
--- NOTE | 2020-11-03 14:14 | ED_ITS ---
HPI - General Adult General Chief complaint: General Medical Stated complaint: flank pain Time Seen by Provider: 11/03/20 13:42 Source: patient Mode of arrival: ambulatory Limitations: language barrier ( Hungarian speaking only, [employer] reports developer used) History of Present Illness HPI narrative: 55-year-old female who presents emergency department for evaluation of bilateral flank pain x3 days. The patient states the pain came on gradually in her left flank and then she also developed right flank pain. She describes the pain as a constant, burning sensation which is 10/10 at its worst. She does have urinary frequency and dysuria. She denied fever, chills, nausea, vomiting, chest pain, shortness of breath. The patient took Tylenol with no relief for pain. She states this the 1st episode of this type pain. The patient was seen by me on 05/14/2020 for abdominal pain. She had a CT scan of the abdomen pelvis at that time. There was no clear source for the patient's abdominal pain at that time but she did have a 3 mm left midpole renal calculus. Related Data Home Medications Medication Instructions Recorded Confirmed albuterol mcg INHALATION 02/15/20 10/04/20 citalopram 40 mg PO DAILY 02/15/20 10/04/20 fluticasone propionate [Flovent] 2 puff INHALATION BID 02/15/20 10/04/20 loratadine [Claritin] 10 mg PO DAILY 02/15/20 10/04/20 ondansetron HCl 4 mg PO Q8H PRN 02/15/20 10/04/20 ruxolitinib [Jakafi] 5 mg PO BID 02/15/20 10/04/20 senna 8.6 mg PO BEDTIME 02/15/20 10/04/20 cholecalciferol (vitamin D3) 25 25 mcg PO DAILY 02/16/20 10/04/20 mcg (1,000 unit) capsule quetiapine [Seroquel] 50 mg PO BEDTIME 05/09/20 10/04/20 acetaminophen 500 mg tablet 500 mg PO Q6H PRN 07/10/20 10/04/20 tramadol 50 mg tablet 50 mg PO Q8H PRN 07/10/20 10/04/20 zolpidem 5 mg tablet 5 mg PO BEDTIME PRN 07/17/20 10/04/20 Previous Rx's Medication Instructions Recorded oxycodone 5 mg PO Q4H PRN #14 tab 05/15/20 hyoscyamine sulfate 0.125 mg 0.125 mg PO BID-QID PRN 30 Days 07/10/20 sublingual tablet #90 tab metformin 1,000 mg tablet 1,000 mg PO DAILY 90 Days #90 tab 07/17/20 sitagliptin 50 mg tablet 50 mg PO DAILY 90 Days #90 tab 07/17/20 folic acid 1 mg PO DAILY tab 07/24/20 folic acid 1 mg PO DAILY #90 tab 07/25/20 [id number] 1 cap PO .QIDAC 30 Days #120 cap 07/26/20 24,000-76,000-120,000 unit capsule,delayed rel simethicone 180 mg capsule 180 mg PO QID 30 Days #120 cap 08/08/20 amlodipine 10 mg tablet 10 mg PO DAILY 90 Days #90 tab 08/23/20 canagliflozin 100 mg tablet 100 mg PO DAILY 90 Days #90 tab 08/23/20 pantoprazole 40 mg tablet,delayed 40 mg PO BID #56 tab 09/04/20 release lisinopril 5 mg tablet 5 mg PO DAILY 90 Days #90 tab 09/18/20 atorvastatin 40 mg tablet 40 mg PO BEDTIME 90 Days #90 tab 09/19/20 doxycycline hyclate 100 mg PO BID #10 cap 10/05/20 mupirocin 1 appl TOPICAL BID 10 Days #15 g 10/05/20 Allergies Allergy/AdvReac Type Severity Reaction Status Date / Time aspirin [ASPIRIN] Allergy Intermediate SWELLING/ITCHING, Verified 10/05/20 14:11 rash Penicillins Allergy Intermediate ITCHING Verified 10/05/20 14:11 vancomycin [VANCOMYCIN] AdvReac Intermediate RED MAN Verified 10/05/20 14:11 SYNDROME PER MD Review of Systems Review of Systems: Yes all other systems are reviewed and are negative [facility] Past Medical History [facility] Narrative: Social history: She denies tobacco, alcohol and drug use. Medical History Asthma Biliary dyskinesia Chronic myeloproliferative disease CKD stage 3 due to type 2 diabetes mellitus Diabetes type 2, controlled Diabetic nephropathy Diabetic neuropathy associated with type 2 diabetes mellitus Dyslipidemia GERD (gastroesophageal reflux disease) History of gastritis Hypertension Morbid obesity due to excess calories Upper abdominal pain Vitamin B12 deficiency Surgical History H/O stem cell transplant History of partial hysterectomy Hx of breast reduction, elective Hx of colonoscopy Hx of esophagogastroduodenoscopy Family History Family History Father Heart problem HTN (hypertension) Mother Diabetes Family/Other Diabetes HTN (hypertension) Heart problem Sister Cancer Social History Social History Alcohol intake: current Alcohol intake frequency: does not drink Advance Directives: No Advance Directives Information Provided: No Physical Exam Vital Signs: Vital Signs: Last Vital Signs Temp 98.7 F 11/03/20 14:40 Pulse 68 11/03/20 14:40 Resp 17 11/03/20 14:40 BP 120/75 11/03/20 14:40 Pulse Ox 97 11/03/20 14:40 Body Mass Index 38.7 Const: General: cooperative and in distress ( Secondary to pain) moderate Nutritional Appearance: obese Orientation/consciousness: oriented to person and oriented to place Limitations: no limitations HENMT: Head: Yes normal to inspection, Yes normocephalic and Yes atraumatic Ears: external ears normal General nose exam: Normal external nose present Face and sinus: Yes normal facial exam Mouth: Normal oral and palatal mucosa present Throat: Yes posterior oropharynx normal Eyes: Periorbital: periorbital findings normal Eyelids: Yes eyelids normal Conjunctivae: conjunctivae normal Sclerae: sclerae normal Corneas: corneas normal Pupils: Equal, round and reactive pupils present Direct Ophthalmoscopy: normal light reflex Neck: Neck: Yes full ROM, Yes no lymphadenopathy, Yes no meningeal signs, Yes trachea midline and Yes supple Chest: Chest palpation & inspection: normal inspection of the chest and normal palpation of entire chest wall Resp: Effort & Inspection: normal respiratory effort and able to speak in complete sentences Auscultation: clear to auscultation bilaterally Cardio: Rate: regular rate Rhythm: regular rhythm Heart sounds: S1 normal heart sound present, S2 normal heart sound present and no murmurs GI: Inspection: Yes normal to inspection Palpation (GI): Soft to palpation, nontender, no guarding, not rigid and No hepatosplenomegaly present : General: Yes CVA tenderness on the left ( moderate) Back/Spine/Pelvis: Back: CVA tenderness Cervical Spine: normal cervical lordosis Thoracic/Lumbar Spine: thoracic and lumbar spine normal to inspection Skin: Lesions: no lesions Rashes: no rashes Wounds: no wounds Neuro: General: oriented to person, oriented to place and no meningeal signs Cranial nerves: Yes CN's II-XII intact bilaterally and Yes Equal, round and reactive pupils present Cognition (Neuro): normal cognition Motor exam (neuro): 5/5 motor strength present throughout Extrem: General: Yes normal to inspection and Yes full ROM Psych: Appearance: well kempt Mental Status: mental status grossly normal Speech and movement: Normal speech and movement present Affect: normal affect Attitude: cooperative Thought process: Normal thought process present Thought content: Normal thought content present Course Course Course Narrative: 55-year-old female who presents emergency department for evaluation of bilateral flank pain, the pain started 3 days prior on the left flank and then also developed in the right flank area. The patient has had urinary symptoms including dysuria and frequency. Vital signs were normal. Physical examination did reveal left flank tenderness otherwise was unremarkable. I ordered a CBC, CMP, lipase, CT scan of the abdomen pelvis without IV contrast. Patient's pain was treated with Toradol 30 mg IV and morphine 4 mg IV. She was given Zofran 4 mg IV for nausea and normal saline x1 L. 1626: The patient's laboratory evaluation revealed a chronic anemia. Her BUN and creatinine are chronically elevated as well, urinalysis and microscopic revealed 5-9 WBCs but no bacteria. CT scan of the abdomen pelvis without IV contrast revealed no clear cause for the patient's pain. The patient got some improvement with the IV morphine, was given a 2nd dose 4 mg IV. At this time, I do not have a clear etiology for the patient's pain, it is possible it may be musculoskeletal. The patient will be discharged home from a she is advised to take Tylenol for pain. She was also given a prescription for morphine 15 mg every 4-6 hours as needed for pain, dispense 10 tablets. The patient was given verbal and printed instructions prior to discharge. The patient was advised to follow-up with their PCP in 2 days and to return to the emergency department if their symptoms get worse or if they develop any new symptoms that are concerning to them Medical Decision Making Lab Data Result diagrams: 11/03/20 14:09 11/03/20 14:09 Labs: Lab Results 11/03/20 11/03/20 11/03/20 Range/Units 12:50 14:09 14:09 WBC 7.4 (4.8-10.8) X10*3/uL RBC 3.14 L (4.20-5.50) X10*6/uL Hgb 9.0 L (12.0-16.0) g/dl Hct 27.6 L (37-47) % MCV 87.9 (80-98) fL MCH 28.7 (27.0-33.0) pg MCHC 32.6 (31.0-35.0) g/dl RDW 14.7 (11.0-16.0) % Plt Count 297 (160-400) X10*3/uL MPV 8.9 L (9.4-12.3) fL Immature Gran % (Auto) 0.7 H (0.0-0.4) % Neut % (Auto) 58.5 (45-73) % Lymph % (Auto) 32.0 (20-40) % [place] % (Auto) 6.5 (2-11) % Eos % (Auto) 2.2 (0-4) % Baso % (Auto) 0.1 (0-2) % Lymph # (Auto) 2.4 (1.2-4.9) X10*3/uL [place] # (Auto) 0.5 (0.1-1.2) X10*3/uL Eos # (Auto) 0.2 (0.0-0.4) X10*3/uL Baso # (Auto) 0.0 (0.0-0.2) X10*3/uL Abs Immat Gran (auto) 0.05 H (0.00-0.03) X10*3/uL Absolute Neuts (auto) 4.3 (2.0-8.3) X10*3/uL Absolute Nucleated RBC 0.000 (0.0-0.012) X10*3/uL Nucleated RBC % (auto) 0.0 (0.0-0.2) /100WBC Sodium 147 H (135-145) mmol/L Potassium 5.2 H (3.3-5.1) mmol/L Chloride 110 H (96-108) mmol/L Carbon Dioxide 22 (22-29) mmol/L Anion Gap 20 (12-20) BUN 28 H D (9-16) mg/dL Creatinine 1.70 H (0.5-1.4) mg/dL Estim Creat Clear Calc 47.1 Estimated GFR 31 Random Glucose 163 H (60-115) mg/dL Calcium 9.8 D (8.4-10.2) mg/dL Total Bilirubin 0.5 (0.0-1.0) mg/dL AST 14 (5-31) U/L ALT 16 (0-31) U/L Alkaline Phosphatase 103 (39-117) U/L Total Protein 7.5 (6.5-8.0) g/dL Albumin 4.5 (3.5-5.0) g/dL Lipase 28 (8-78) U/L Urine Color YELLOW Urine Appearance CLEAR Urine pH 6.0 (5.0-8.0) Ur Specific Mccarr 1.010 (1.005-1.025) Urine Protein NEG (NEG-TRACE) MG/DL Urine Glucose (UA) 500 H (NEG) MG/DL Urine Ketones NEG (NEG) MG/DL Urine Blood 1+ H (NEG) Urine Nitrite NEG (NEG) Ur Leukocyte Esterase 1+ H (NEG) Urine RBC 5-9 H (0) /HPF Urine WBC 1-4 (0-4) /HPF Ur Squamous Epith Cells 2+ /LPF Urine Bacteria NONE /LPF Urine Mucus 2+ /LPF Discharge Plan Discharge Prescriptions: No Action folic acid 1 mg Tablet 1 mg PO DAILY RF: 0 Creon 24,000-76,000 -120,000 unit capsule,delayed release(DR/EC) 1 cap PO .QIDAC 30 Days Qty: 120 RF: 6 Invokana 100 mg tablet 100 mg PO DAILY 90 Days Qty: 90 RF: 2 amlodipine 10 mg tablet 10 mg PO DAILY 90 Days Qty: 90 RF: 1 pantoprazole 40 mg tablet,delayed release (DR/EC) 40 mg PO BID Qty: 56 RF: 1 lisinopril 5 mg tablet 5 mg PO DAILY 90 Days Qty: 90 RF: 1 atorvastatin 40 mg tablet 40 mg PO BEDTIME 90 Days Qty: 90 RF: 1 folic acid 1 mg Tablet 1 mg PO DAILY Qty: 90 RF: 3 citalopram 40 mg Tablet 40 mg PO DAILY RF: 0 ondansetron HCl 4 mg Tablet 4 mg PO Q8H PRN (Reason: Nausea) RF: 0 albuterol 90 mcg/actuation Aerosol INHALATION RF: 0 loratadine [Claritin] 10 mg Tablet 10 mg PO DAILY RF: 0 Flovent 110 mcg/actuation Hfa Aerosol Inhaler 2 puff INHALATION BID RF: 0 senna 8.6 mg Capsule 8.6 mg PO BEDTIME RF: 0 Jakafi 5 mg Tablet 5 mg PO BID RF: 0 quetiapine [Seroquel] 50 mg Tablet 50 mg PO BEDTIME RF: 0 oxycodone 5 mg tablet 5 mg PO Q4H PRN (Reason: pain) Qty: 14 RF: 0 doxycycline hyclate 100 mg capsule 100 mg PO BID Qty: 10 RF: 0 mupirocin 2 % ointment 1 appl topical BID 10 Days Qty: 15 RF: 0 tramadol 50 mg tablet 50 mg PO Q8H PRNRF: 0 acetaminophen [Tylenol Extra Strength] 500 mg tablet 500 mg PO Q6H PRNRF: 0 hyoscyamine sulfate [Levsin/SL] 0.125 mg tablet, sublingual 0.125 mg PO BID-QID PRN (Reason: cramping) 30 Days Qty: 90 RF: 6 cholecalciferol (vitamin D3) 25 mcg (1,000 unit) capsule 25 mcg PO DAILY RF: 0 zolpidem [Ambien] 5 mg tablet 5 mg PO BEDTIME PRNRF: 0 metformin 1,000 mg tablet 1,000 mg PO DAILY 90 Days Qty: 90 RF: 1 Januvia 50 mg tablet 50 mg PO DAILY 90 Days Qty: 90 RF: 2 simethicone 180 mg capsule 180 mg PO QID 30 Days Qty: 120 RF: 3
[2020-11-03 14:20] LABS: Basophils Percent Auto 0.1 % (0-2); Eosinophils Absolute Auto 0.2 X10*3/uL (0.0-0.4); Eosinophils Percent Auto 2.2 % (0-4); Hematocrit 27.6 % (37-47); Imm Gran Abs Auto 0.05 X10*3/uL (0.00-0.03); Imm Gran Pct Auto 0.7 % (0.0-0.4); Lymphocytes Absolute Auto 2.4 X10*3/uL (1.2-4.9); Mean Corpuscular HGB Conc 32.6 g/dl (31.0-35.0); Mean Corpuscular Hemoglobin 28.7 pg (27.0-33.0); Mean Corpuscular Volume 87.9 fL (80-98); Mean Platelet Volume 8.9 fL (9.4-12.3); Monocytes Absolute Auto 0.5 X10*3/uL (0.1-1.2); Monocytes Percent Auto 6.5 % (2-11); Neutrophils Absolute Auto 4.3 X10*3/uL (2.0-8.3); Neutrophils Percent Auto 58.5 % (45-73); Platelet Count 297 X10*3/uL (160-400); Red Blood Count 3.14 X10*6/uL (4.20-5.50); Red Cell Distribution Width 14.7 % (11.0-16.0); White Blood Count 7.4 X10*3/uL (4.8-10.8)
[2020-11-03] MEDS: ondansetron HCL 4 MG/2 ML VIAL IVPUSH (14:39)
[2020-11-03 14:40] VITALS: BP 120/75; PULSE 68; RESP 17; RESP 18; TEMP 37.1; O2SAT 97
[2020-11-03] MEDS: Ketorolac Tromethamine 30 MG/ML VIAL IVPUSH (14:40)
[2020-11-03] MEDS: Morphine Sulfate 4 MG/ML CARTRIDGE IVPUSH ×2 (14:40→17:10)
[2020-11-03 14:46] LABS: Alanine Aminotransferase 16 U/L (0-31); Albumin Level 4.5 g/dL (3.5-5.0); Alkaline Phosphatase 103 U/L (39-117); Anion Gap 20 (12-20); Aspartate Amino Transferase 14 U/L (5-31); Bilirubin Total 0.5 mg/dL (0.0-1.0); Blood Urea Nitrogen 28 mg/dL (9-16); Calcium 9.8 mg/dL (8.4-10.2); Carbon Dioxide 22 mmol/L (22-29); Chloride 110 mmol/L (96-108); Creatinine Clr Calc Pharmacy 47.1; Estimated Glomerular Filt Rate 31; Glucose Random 163 mg/dL (60-115); Lipase 28 U/L (8-78); Potassium 5.2 mmol/L (3.3-5.1); Sodium 147 mmol/L (135-145); Total Protein 7.5 g/dL (6.5-8.0)
== END 2020-11-03 18:00 | disposition home or self-care (01) ==
PROVIDERS: Emergency Provider Emergency Medicine Emergency Medical Services; PCP Internal Medicine
DX: R10.9 Unspecified abdominal pain (principal); D64.9 Anemia, unspecified; I12.9 Hypertensive chronic kidney disease with stage 1 through stage 4 chronic kidney disease, or unspecified chronic kidney disease; E11.22 Type 2 diabetes mellitus with diabetic chronic kidney disease; N18.30 Chronic kidney disease, stage 3 unspecified; Z79.84 Long term (current) use of oral hypoglycemic drugs; Z79.899 Other long term (current) drug therapy
CPT/HCPCS: 36415; 74176; 80053; 81001; 81003; 83690; 85025; 87086; 87147; 96374; 96375; 96376; 99284; J1885; J2270; J2405

== ENCOUNTER 2020-11-14 09:52 | Emergency (ER) | payer MEDICAID, SELFPAY ==
--- NOTE | 2020-11-14 | ECG_ITS ---
Test Reason : CHEST PAIN Blood Pressure : / mmHG Vent. Rate : 082 BPM Atrial Rate : 082 BPM P-R Int : 126 ms QRS Dur : 112 ms QT Int : 400 ms P-R-T Axes : 019 -51 002 degrees QTc Int : 467 ms Normal sinus rhythm Left anterior fascicular block Abnormal ECG When compared with ECG of 14-MAY-2020 22:26, No significant change was found Referred By: Generic ED Physician Electronically Signed By:Natanael Montano
--- NOTE | ~2020-11-14 | XR_ITS ---
EXAMINATION: XR CHEST CLINICAL INFORMATION: Chest pain COMPARISON: Previous chest x-ray October 2020 TECHNIQUE: Frontal view of the chest was obtained. FINDINGS: No significant abnormality is noted involving the heart, lungs, mediastinum, bony thorax or soft tissues. XR/XR chest 1V IMPRESSION: Unremarkable examination.
[2020-11-14 10:15] VITALS: BP 140/59; PULSE 90; TEMP 35.7; O2SAT 95; BMI 38.7
--- NOTE | 2020-11-14 15:04 | ED.CHESTPAIN ---
HPI - Chest Pain General Chief Complaint: Chest Pain Stated Complaint: chest Pain Time Seen by Provider: 11/14/20 14:46 Source: patient and inspector open die Mode of arrival: ambulatory Limitations: no limitations History of Present Illness HPI narrative: 55-year-old female came in for evaluation of chest wall pain, and coughing for the past 2 weeks. Patient is a former smoker with history of asthma came in for 2 weeks of nonproductive cough as a result patient complained of by lateral chest wall pain and headache with coughing. Patient declined any fever or chills. Patient ran out of her asthma medication and not taking it. Related Data Home Medications Medication Instructions Recorded Confirmed albuterol mcg INHALATION 02/15/20 10/04/20 citalopram 40 mg PO DAILY 02/15/20 10/04/20 fluticasone propionate [Flovent] 2 puff INHALATION BID 02/15/20 10/04/20 loratadine [Claritin] 10 mg PO DAILY 02/15/20 10/04/20 ruxolitinib [Jakafi] 5 mg PO BID 02/15/20 11/07/20 senna 8.6 mg PO BEDTIME 02/15/20 11/07/20 cholecalciferol (vitamin D3) 25 25 mcg PO DAILY 02/16/20 11/07/20 mcg (1,000 unit) capsule acetaminophen 500 mg tablet 500 mg PO Q6H PRN 07/10/20 11/07/20 tramadol 50 mg tablet 50 mg PO Q8H PRN 07/10/20 11/07/20 Previous Rx's Medication Instructions Recorded hyoscyamine sulfate 0.125 mg 0.125 mg PO BID-QID PRN 30 Days 07/10/20 sublingual tablet #90 tab metformin 1,000 mg tablet 1,000 mg PO DAILY 90 Days #90 tab 07/17/20 sitagliptin 50 mg tablet 50 mg PO DAILY 90 Days #90 tab 07/17/20 folic acid 1 mg PO DAILY #90 tab 07/25/20 fretbj-fonazpun-euntjlr 1 cap PO .QIDAC 30 Days #120 cap 07/26/20 24,000-76,000-120,000 unit capsule,delayed rel simethicone 180 mg capsule 180 mg PO QID 30 Days #120 cap 08/08/20 amlodipine 10 mg tablet 10 mg PO DAILY 90 Days #90 tab 08/23/20 canagliflozin 100 mg tablet 100 mg PO DAILY 90 Days #90 tab 08/23/20 pantoprazole 40 mg tablet,delayed 40 mg PO BID #56 tab 09/04/20 release lisinopril 5 mg tablet 5 mg PO DAILY 90 Days #90 tab 09/18/20 atorvastatin 40 mg tablet 40 mg PO BEDTIME 90 Days #90 tab 09/19/20 doxycycline hyclate 100 mg PO BID #10 cap 10/05/20 mupirocin 1 appl TOPICAL BID 10 Days #15 g 10/05/20 oxycodone 5 mg PO Q8H PRN #30 tab 11/07/20 albuterol sulfate 1 inh INHALATION QID PRN #8.5 g 11/14/20 albuterol sulfate 2.5 mg INHALATION Q4-6H PRN #75 ml 11/14/20 azithromycin [Zithromax Z-George] See Rx Instructions .ROUTE 11/14/20 .COMPLEX #6 tab hydrocodone-homatropine [Hycodan] 5 ml PO Q4-6H PRN #200 ml 11/14/20 prednisone 20 mg PO BID #10 tab 11/14/20 Allergies Allergy/AdvReac Type Severity Reaction Status Date / Time aspirin [ASPIRIN] Allergy Intermediate SWELLING/ITCHING, Verified 10/05/20 14:11 rash Penicillins Allergy Intermediate ITCHING Verified 10/05/20 14:11 vancomycin [VANCOMYCIN] AdvReac Intermediate RED MAN Verified 10/05/20 14:11 SYNDROME PER MD Review of Systems Review of Systems: All other systems are reviewed and are negative Constitutional: Reports as per HPI and Reports no additional constitutional complaints Eyes: Reports as per HPI and Reports no additional eye complaints Reports system reviewed and no additional complaints, except as documented Cardiovascular: Reports as per HPI and Reports no additional cardiovascular complaints Respiratory: Reports as per HPI and Reports no additional respiratory complaints Gastrointestinal: Reports as per HPI and Reports no additional gastrointestinal complaints Genitourinary: Reports no additional female genitourinary complaints Musculoskeletal: Reports no additional musculoskeletal complaints Skin/Breast: Reports system reviewed and no additional complaints, except as docu Psychiatric: Reports no additional psychiatric complaints Endocrine: Reports no additional endocrine complaints Hematologic/Lymphatic: Reports no additional hematologic/lymphatic complaints Allergic/Immunologic: Reports no additional allergic/immunologic complaints Reports system reviewed and no additional complaints, except as documented and Reports Abnormal speech present PMFSH Past Medical History Medical History Asthma Biliary dyskinesia Chronic myeloproliferative disease CKD stage 3 due to type 2 diabetes mellitus Diabetes type 2, controlled Diabetic nephropathy Diabetic neuropathy associated with type 2 diabetes mellitus Dyslipidemia GERD (gastroesophageal reflux disease) History of gastritis Hypertension Morbid obesity due to excess calories Upper abdominal pain Vitamin B12 deficiency Surgical History H/O stem cell transplant History of partial hysterectomy Hx of breast reduction, elective Hx of colonoscopy Hx of esophagogastroduodenoscopy Family History Family History Father Heart problem HTN (hypertension) Mother Diabetes Family/Other Diabetes HTN (hypertension) Heart problem Sister Cancer Social History Social History Alcohol intake: never Patient Tobacco Use Status: Never used Tobacco Use of substances other than those prescribed or required for medical reasons: No Advance Directives: No Advance Directives Information Provided: No Physical Exam Vital Signs: Vital Signs: Last Vital Signs Temp 97.9 F 11/14/20 15:43 Pulse 71 11/14/20 16:06 Resp 16 11/14/20 15:43 BP 133/71 11/14/20 15:43 Pulse Ox 97 11/14/20 15:43 Body Mass Index 38.7 Vital signs have been reviewed as appeared to be correct. Blood pressure normal. Heart rate normal. Respiration rate normal. Temperature normal. Oxygen saturation normal. Appearance: Alert. Oriented X3. No acute distress. Head: Normal external exam. Normocephalic. Atraumatic. No Hickman signs noted. No raccoon eyes noted Eyes: PERRLA. EOMI. Conjunctiva and sclera normal. Eyelids normal. ENT: TM's Normal. Pharynx normal. Uvula midline. Moist mucous membranes. No trismus noted. No drooling noted. No muffled voice noted. Neck: Normal inspection. Neck supple. FROM. No adenopathy. Thyroid Normal. No meningeal signs. No neck mass noted. CVS: Normal heart rate and rhythm. Heart sound normal. No murmurs noted. Pulses normal throughout. Respiratory: No respiratory distress. Painless inspiration. Breath sounds normal. Diffuse bilateral mild expiratory wheezes, no rales, or rhonchi noted. Chest nontender. No accessory muscle usage noted or decreased air movement noted. Abdomen: Soft and nontender. Bowel sounds normal in all 4 quadrants. No distention noted. No organomegaly noted. No visible injury noted. Back: No CVA tenderness. Full range of motion noted. Skin: Skin warm and dry. Normal skin color. Normal skin turgor. No rashes/lesions/lacerations noted. Extremities: No lower extremity edema. Extremities exhibit normal range of motion. Extremities nontender. Neuro: Oriented X 3. No motor deficit. No sensory deficit. Reflexes normal. Course Course Course Narrative: Assessment and plan. 55-year-old female history of asthma, former smoker, came in for 2 weeks of dry cough. Patient improved with prednisone/bronchodilator/Zithromax in the ED. Will discharge the patient on prednisone/bronchodilator/Zithromax MDM - Chest Pain Lab Data Attestation: I reviewed the patient's lab results. Result diagrams: 11/14/20 15:16 11/14/20 15:16 Labs: Lab Results 11/14/20 11/14/20 Range/Units 15:16 15:16 WBC 7.6 (4.8-10.8) X10*3/uL RBC 3.21 L (4.20-5.50) X10*6/uL Hgb 9.0 L (12.0-16.0) g/dl Hct 28.2 L (37-47) % MCV 87.9 (80-98) fL MCH 28.0 (27.0-33.0) pg MCHC 31.9 (31.0-35.0) g/dl RDW 14.8 (11.0-16.0) % Plt Count 271 (160-400) X10*3/uL MPV 8.9 L (9.4-12.3) fL Immature Gran % (Auto) 1.5 H (0.0-0.4) % Neut % (Auto) 69.6 (45-73) % Lymph % (Auto) 18.9 L (20-40) % [place] % (Auto) 8.7 (2-11) % Eos % (Auto) 1.2 (0-4) % Baso % (Auto) 0.1 (0-2) % Lymph # (Auto) 1.4 (1.2-4.9) X10*3/uL [place] # (Auto) 0.7 (0.1-1.2) X10*3/uL Eos # (Auto) 0.1 (0.0-0.4) X10*3/uL Baso # (Auto) 0.0 (0.0-0.2) X10*3/uL Abs Immat Gran (auto) 0.11 H (0.00-0.03) X10*3/uL Absolute Neuts (auto) 5.3 (2.0-8.3) X10*3/uL Absolute Nucleated RBC 0.020 H (0.0-0.012) X10*3/uL Nucleated RBC % (auto) 0.3 H (0.0-0.2) /100WBC Sodium 145 (135-145) mmol/L Potassium 4.7 (3.3-5.1) mmol/L Chloride 108 (96-108) mmol/L Carbon Dioxide 24 (22-29) mmol/L Anion Gap 18 (12-20) BUN 23 H (9-16) mg/dL Creatinine 1.52 H (0.5-1.4) mg/dL Estim Creat Clear Calc 52.7 Estimated GFR 35 Random Glucose 121 H (60-115) mg/dL Calcium 9.5 D (8.4-10.2) mg/dL Total Bilirubin 0.4 (0.0-1.0) mg/dL Direct Bilirubin < 0.2 (0.0-0.5) mg/dL AST 14 (5-31) U/L ALT 15 (0-31) U/L Alkaline Phosphatase 102 (39-117) U/L Total Protein 7.4 (6.5-8.0) g/dL Albumin 4.4 (3.5-5.0) g/dL Lipase 24 (8-78) U/L Imaging Data Chest x-ray: Radiologist's impression: Unremarkable examination ECG Data ECG #1: Interpretation: Normal sinus rhythm at 82 beats per minutes LVH, no acute ST-T changes. Discharge Plan Discharge Clinical Impression: Bronchitis Patient Disposition: Home, Self-Care Instructions: Acute Bronchitis (ED) Prescriptions: New azithromycin [Zithromax Z-George] 250 mg tablet See Rx Instructions .ROUTE .COMPLEX Qty: 6 RF: 0 prednisone 20 mg tablet 20 mg PO BID Qty: 10 RF: 0 albuterol sulfate 2.5 mg /3 mL (0.083 %) solution for nebulization 2.5 mg inhalation Q4-6H PRN (Reason: shortness of breath or wheezing) Qty: 75 RF: 0 albuterol sulfate 90 mcg/actuation HFA aerosol inhaler 1 inh inhalation QID PRN (Reason: shortness of breath or wheezing) Qty: 8.5 RF: 0 hydrocodone-homatropine [Hycodan] 5-1.5 mg/5 mL (5 mL) syrup 5 ml PO Q4-6H PRN (Reason: cough) Qty: 200 RF: 0 No Action Creon 24,000-76,000 -120,000 unit capsule,delayed release(DR/EC) 1 cap PO .QIDAC 30 Days Qty: 120 RF: 6 Invokana 100 mg tablet 100 mg PO DAILY 90 Days Qty: 90 RF: 2 amlodipine 10 mg tablet 10 mg PO DAILY 90 Days Qty: 90 RF: 1 pantoprazole 40 mg tablet,delayed release (DR/EC) 40 mg PO BID Qty: 56 RF: 1 lisinopril 5 mg tablet 5 mg PO DAILY 90 Days Qty: 90 RF: 1 atorvastatin 40 mg tablet 40 mg PO BEDTIME 90 Days Qty: 90 RF: 1 folic acid 1 mg Tablet 1 mg PO DAILY Qty: 90 RF: 3 citalopram 40 mg Tablet 40 mg PO DAILY RF: 0 albuterol 90 mcg/actuation Aerosol INHALATION RF: 0 loratadine [Claritin] 10 mg Tablet 10 mg PO DAILY RF: 0 Flovent 110 mcg/actuation Hfa Aerosol Inhaler 2 puff INHALATION BID RF: 0 senna 8.6 mg Capsule 8.6 mg PO BEDTIME RF: 0 Jakafi 5 mg Tablet 5 mg PO BID RF: 0 oxycodone 5 mg Tablet 5 mg PO Q8H PRN (Reason: Breakthrough Pain, Moderate) Qty: 30 RF: 0 doxycycline hyclate 100 mg capsule 100 mg PO BID Qty: 10 RF: 0 mupirocin 2 % ointment 1 appl topical BID 10 Days Qty: 15 RF: 0 tramadol 50 mg tablet 50 mg PO Q8H PRN (Reason: Pain) RF: 0 acetaminophen [Tylenol Extra Strength] 500 mg tablet 500 mg PO Q6H PRN (Reason: Pain) RF: 0 hyoscyamine sulfate [Levsin/SL] 0.125 mg tablet, sublingual 0.125 mg PO BID-QID PRN (Reason: cramping) 30 Days Qty: 90 RF: 6 cholecalciferol (vitamin D3) 25 mcg (1,000 unit) capsule 25 mcg PO DAILY RF: 0 metformin 1,000 mg tablet 1,000 mg PO DAILY 90 Days Qty: 90 RF: 1 Januvia 50 mg tablet 50 mg PO DAILY 90 Days Qty: 90 RF: 2 simethicone 180 mg capsule 180 mg PO QID 30 Days Qty: 120 RF: 3 Referrals: [facility] [Primary Care Provider] - 2 days
[2020-11-14 15:06] VITALS: BP 133/71; PULSE 82; RESP 16; TEMP 36.9; O2SAT 96
[2020-11-14 15:23] LABS: MANUAL DIFF FLAG NO
[2020-11-14 15:28] LABS: Basophils Percent Auto 0.1 % (0-2); Eosinophils Absolute Auto 0.1 X10*3/uL (0.0-0.4); Eosinophils Percent Auto 1.2 % (0-4); Hematocrit 28.2 % (37-47); Imm Gran Abs Auto 0.11 X10*3/uL (0.00-0.03); Imm Gran Pct Auto 1.5 % (0.0-0.4); Lymphocytes Absolute Auto 1.4 X10*3/uL (1.2-4.9); Lymphocytes Percent Auto 18.9 % (20-40); Mean Corpuscular HGB Conc 31.9 g/dl (31.0-35.0); Mean Corpuscular Volume 87.9 fL (80-98); Mean Platelet Volume 8.9 fL (9.4-12.3); Monocytes Absolute Auto 0.7 X10*3/uL (0.1-1.2); Monocytes Percent Auto 8.7 % (2-11); NRBC Pct Auto 0.3 /100WBC (0.0-0.2); Neutrophils Absolute Auto 5.3 X10*3/uL (2.0-8.3); Neutrophils Percent Auto 69.6 % (45-73); Platelet Count 271 X10*3/uL (160-400); Red Blood Count 3.21 X10*6/uL (4.20-5.50); Red Cell Distribution Width 14.8 % (11.0-16.0); White Blood Count 7.6 X10*3/uL (4.8-10.8)
[2020-11-14] MEDS: Azithromycin 500 MG TABLET PO (15:29)
[2020-11-14] MEDS: predniSONE 20 MG TABLET 60 MG PO (15:29)
[2020-11-14 15:43] VITALS: BP 133/71; PULSE 81; RESP 16; TEMP 36.6; O2SAT 97
[2020-11-14 15:56] LABS: Alanine Aminotransferase 15 U/L (0-31); Albumin Level 4.4 g/dL (3.5-5.0); Alkaline Phosphatase 102 U/L (39-117); Anion Gap 18 (12-20); Aspartate Amino Transferase 14 U/L (5-31); Bilirubin Direct < 0.2 mg/dL (0.0-0.5); Bilirubin Total 0.4 mg/dL (0.0-1.0); Blood Urea Nitrogen 23 mg/dL (9-16); Calcium 9.5 mg/dL (8.4-10.2); Carbon Dioxide 24 mmol/L (22-29); Chloride 108 mmol/L (96-108); Creatinine Clr Calc Pharmacy 52.7; Estimated Glomerular Filt Rate 35; Glucose Random 121 mg/dL (60-115); Lipase 24 U/L (8-78); Potassium 4.7 mmol/L (3.3-5.1); Sodium 145 mmol/L (135-145); Total Protein 7.4 g/dL (6.5-8.0)
[2020-11-14] MEDS: Albuterol/Iprat 2.5/0.5MG 3 ML AMPUL.NEB INHALE (16:03)
[2020-11-14] MEDS: Albuterol Sulfate (0.083%) 2.5 MG/3 ML VIAL.NEB 5 MG INHALE (16:03)
[2020-11-14 16:06] VITALS: PULSE 71; O2SAT 97
[2020-11-14 17:52] VITALS: BP 122/83; PULSE 90; RESP 18; TEMP 36.7; O2SAT 98
== END 2020-11-14 18:09 | disposition home or self-care (01) ==
PROVIDERS: Emergency Provider Emergency Medicine
DX: J40 Bronchitis, not specified as acute or chronic (principal); E11.22 Type 2 diabetes mellitus with diabetic chronic kidney disease; I12.9 Hypertensive chronic kidney disease with stage 1 through stage 4 chronic kidney disease, or unspecified chronic kidney disease; N18.30 Chronic kidney disease, stage 3 unspecified
CPT/HCPCS: 36415; 71045; 80048; 80076; 83690; 85025; 93005; 94640; 94644; 99284

== ENCOUNTER → 2020-11-20 13:18 | Outpatient (BNVA) | payer MEDICAID, SELFPAY | PROVIDERS: PCP Internal Medicine; Visit Provider Internal Medicine Endocrinology, Diabetes & Metabolism | DX: E11.40 Type 2 diabetes mellitus with diabetic neuropathy, unspecified (principal); E66.01 Morbid (severe) obesity due to excess calories; E11.21 Type 2 diabetes mellitus with diabetic nephropathy; E78.5 Hyperlipidemia, unspecified; I10 Essential (primary) hypertension | CPT/HCPCS: 82947; 83036; 99212 ==

== ENCOUNTER → 2020-11-28 15:10 | Outpatient (BNVA) | payer MEDICAID, SELFPAY | PROVIDERS: PCP Internal Medicine; Visit Provider Nurse Practitioner ==

== ENCOUNTER → 2020-12-06 09:49 | Outpatient (BNVA) | payer MEDICAID, SELFPAY | PROVIDERS: PCP Internal Medicine; Referring Provider Internal Medicine; Visit Provider Surgery | DX: K82.8 Other specified diseases of gallbladder (principal) | CPT/HCPCS: 99212 ==

== ENCOUNTER → 2020-12-15 08:35 | Outpatient (BNVA) | payer MEDICAID, SELFPAY | PROVIDERS: PCP Internal Medicine; Visit Provider Nurse Practitioner ==

== ENCOUNTER → 2021-01-09 10:18 | Outpatient (BNVA) | payer MEDICAID, SELFPAY | PROVIDERS: PCP Internal Medicine; Referring Provider Internal Medicine; Visit Provider Psychiatry & Neurology Neurology | DX: G47.33 Obstructive sleep apnea (adult) (pediatric) (principal) | CPT/HCPCS: 99202 ==

== ENCOUNTER → 2021-01-11 13:13 | Outpatient (BNVA) | payer MEDICAID, SELFPAY | PROVIDERS: PCP Internal Medicine; Visit Provider Internal Medicine Pulmonary Disease | DX: J45.909 Unspecified asthma, uncomplicated (principal); R06.00 Dyspnea, unspecified; E11.65 Type 2 diabetes mellitus with hyperglycemia; E11.22 Type 2 diabetes mellitus with diabetic chronic kidney disease; E11.42 Type 2 diabetes mellitus with diabetic polyneuropathy; I12.9 Hypertensive chronic kidney disease with stage 1 through stage 4 chronic kidney disease, or unspecified chronic kidney disease; N18.30 Chronic kidney disease, stage 3 unspecified; E78.5 Hyperlipidemia, unspecified; E66.01 Morbid (severe) obesity due to excess calories; K82.8 Other specified diseases of gallbladder; Z68.41 Body mass index [BMI] 40.0-44.9, adult; Z88.6 Allergy status to analgesic agent; Z88.0 Allergy status to penicillin | CPT/HCPCS: 99202 ==

== ENCOUNTER → 2021-01-12 14:58 | Outpatient (BNVA) | payer MEDICAID, SELFPAY | PROVIDERS: PCP Internal Medicine; Visit Provider Nurse Practitioner ==

== ENCOUNTER 2021-01-26 10:36 | Outpatient (REF) | payer MEDICAID, SELFPAY ==
--- NOTE | 2021-01-26 17:21 | PFT_ITS ---
Forced vital capacity is moderately reduced. FEV1 slightly reduced, but FEV1/FVC ratio is normal. [id number] and MVV are normal. Post bronchodilator therapy, there is no significant change. Total lung capacity and residual volume are slightly decreased. Diffusion capacity is moderately decreased. CONCLUSION: Mild to moderate degree of restrictive pulmonary disorder. No significant obstructive airway disorder. Clinical correlation is recommended. MD TAMIKO Kramer/BANL / [phone]
== END 2021-01-26 10:37 | disposition home or self-care (01) ==
LOC: HO.RESP 10:36
PROVIDERS: PCP Internal Medicine; Visit Provider Internal Medicine Pulmonary Disease
DX: R06.00 Dyspnea, unspecified (principal)
CPT/HCPCS: 94060; 94727; 94729

== ENCOUNTER 2021-02-02 13:37 | Outpatient (REF) | payer MEDICAID, SELFPAY ==
[2021-02-02 13:49] LABS: MANUAL DIFF FLAG NO
[2021-02-02 14:14] LABS: Basophils Percent Auto 0.1 % (0-2); Eosinophils Absolute Auto 0.2 X10*3/uL (0.0-0.4); Eosinophils Percent Auto 2.2 % (0-4); Hematocrit 28.5 % (37-47); Hemoglobin 9.1 g/dl (12.0-16.0); Imm Gran Abs Auto 0.09 X10*3/uL (0.00-0.03); Imm Gran Pct Auto 1.3 % (0.0-0.4); Lymphocytes Absolute Auto 1.7 X10*3/uL (1.2-4.9); Lymphocytes Percent Auto 25.2 % (20-40); Mean Corpuscular HGB Conc 31.9 g/dl (31.0-35.0); Mean Corpuscular Hemoglobin 27.9 pg (27.0-33.0); Mean Corpuscular Volume 87.4 fL (80-98); Monocytes Absolute Auto 0.5 X10*3/uL (0.1-1.2); Monocytes Percent Auto 6.7 % (2-11); Neutrophils Absolute Auto 4.3 X10*3/uL (2.0-8.3); Neutrophils Percent Auto 64.5 % (45-73); Platelet Count 259 X10*3/uL (160-400); Red Blood Count 3.26 X10*6/uL (4.20-5.50); Red Cell Distribution Width 14.6 % (11.0-16.0); White Blood Count 6.7 X10*3/uL (4.8-10.8)
[2021-02-02 14:34] LABS: Albumin Level 4.4 g/dL (3.5-5.0); Anion Gap 14 (12-20); Blood Urea Nitrogen 18 mg/dL (9-16); Calcium 9.3 mg/dL (8.4-10.2); Carbon Dioxide 26 mmol/L (22-29); Chloride 107 mmol/L (96-108); Estimated Glomerular Filt Rate 39; Iron 51 mcg/dL (30-160); Percent Iron Saturation 22 % (15-50); Potassium 4.4 mmol/L (3.3-5.1); Sodium 143 mmol/L (135-145); Total Iron Binding Capacity 231 mcg/dL (228-428); Unsaturated Iron Binding 180 ug/dL
[2021-02-02 14:55] LABS: Vitamin D 25-OH Total 26.7 ng/mL (>30)
[2021-02-02 16:02] LABS: Appearance Urine CLEAR; Color Urine STRAW; Glucose Urine UA >=1000 MG/DL (NEG); Leukocyte Esterase Urine NEG (NEG); Nitrite Urine NEG (NEG); Specific Gravity - Urine 1.015 (1.005-1.025); Urine Blood 1+ (NEG); Urine Ketones NEG (NEG); Urine Protein TRACE MG/DL (NEG-TRACE)
[2021-02-02 16:14] LABS: Bacteria Urine TRACE /LPF; Squamous Epithelial Cell Urine 1+ /LPF; WBC Urine 0 /HPF (0-4)
[2021-02-02 16:30] LABS: Creatinine Urine 79.45 mg/dL; Microalbum/Creatinine Ratio Ur 237.8 ug/mg cr; Protein/Creatinine Ratio, Ur 0.43 (<0.2); Total Protein Urine Random 34 mg/dL (<12)
[2021-02-05 13:27] LABS: Calcium (PTHI) 9.3 mg/dL (8.6-10.4); PTHI 120 pg/mL (14-64)
== END 2021-02-02 13:38 | disposition home or self-care (01) ==
LOC: HO.LAB 13:37
PROVIDERS: PCP Internal Medicine; Visit Provider Internal Medicine Nephrology
DX: I12.9 Hypertensive chronic kidney disease with stage 1 through stage 4 chronic kidney disease, or unspecified chronic kidney disease (principal); E11.22 Type 2 diabetes mellitus with diabetic chronic kidney disease; N18.32 Chronic kidney disease, stage 3b; R80.1 Persistent proteinuria, unspecified
CPT/HCPCS: 36415; 80051; 81001; 81003; 82040; 82043; 82306; 82310; 82565; 83540; 83970; 84156; 84520; 85025; 87086

== ENCOUNTER 2021-02-09 10:48 | Day surgery (SDC) | payer MEDICAID, SELFPAY ==
--- NOTE | 2021-02-08 09:11 | HO.ANESPROP2 ---
Documented by User: Joann Thao NP 02/08/21 09:13 HPI - Anesthesia Eval Consult details Narrative: 55yo F for Upper Endoscopy PMFSH Active Problems Active Problems: All Active Problems (Updated 02/05/21 @ 16:08 by Jazmine Johnson, NEGAR) BERNIE (obstructive sleep apnea) (Acute) Meningioma (Acute) GERD (gastroesophageal reflux disease) (Acute) Abdominal bloating (Acute) Periumbilical abdominal pain (Acute) Acalculous cholecystitis (Acute) Anemia (Acute) Cough (Acute) Obstructive sleep apnea (Acute) Dyspnea on exertion (Acute) Biliary dyskinesia (Acute) Chronic myeloproliferative disease (Acute) CKD stage 3 due to type 2 diabetes mellitus (Acute) Asthma (Acute) Diabetic neuropathy associated with type 2 diabetes mellitus (Acute) Diabetic nephropathy (Acute) Morbid obesity due to excess calories (Acute) Hypertension (Acute) Diabetes type 2, controlled (Acute) Dyslipidemia (Acute) Past Medical History Medical History Anemia Asthma Biliary dyskinesia Chronic myeloproliferative disease CKD stage 3 due to type 2 diabetes mellitus Diabetes type 2, controlled Diabetic nephropathy Diabetic neuropathy associated with type 2 diabetes mellitus Dyslipidemia GERD (gastroesophageal reflux disease) Hiatal hernia History of depression History of gastritis History of myelofibrosis Hypertension Migraines Morbid obesity due to excess calories BERNIE (obstructive sleep apnea) Upper abdominal pain Vitamin B12 deficiency Family History Family History Father Heart problem HTN (hypertension) Mother Diabetes Family/Other Diabetes HTN (hypertension) Heart problem Sister Cancer Surgical History Surgical History H/O stem cell transplant History of partial hysterectomy History of resection of meningioma Hx of breast reduction, elective Hx of colonoscopy Hx of esophagogastroduodenoscopy Social History Social History Alcohol intake: former Patient Tobacco Use Status: Never used Tobacco Use of substances other than those prescribed or required for medical reasons: No Are you DNR?: No Advance Directives: No Advance Directives Information Provided: Yes Meds Allergies Allergy/AdvReac Type Severity Reaction Status Date / Time aspirin [ASPIRIN] Allergy Intermediate SWELLING/ITCHING, Verified 02/09/21 10:02 rash Penicillins Allergy Intermediate ITCHING Verified 02/09/21 10:02 vancomycin [VANCOMYCIN] AdvReac Intermediate RED MAN Verified 02/09/21 10:02 SYNDROME PER MD Home Medications Medication Instructions Recorded Confirmed Last Taken Type albuterol 90 mcg/actuation aerosol 90 mcg INHALATION DAILY 02/15/20 02/05/21 Unknown History inhaler citalopram 40 mg tablet 40 mg PO DAILY 02/15/20 02/05/21 Unknown History fluticasone propionate 110 2 puff INHALATION BID 02/15/20 02/05/21 Unknown History mcg/actuation HFA aerosol inhaler ruxolitinib 5 mg tablet (Jakafi) 5 mg PO BID 02/15/20 02/05/21 Unknown History sennosides 8.6 mg capsule (senna) 8.6 mg PO BEDTIME 02/15/20 02/05/21 Unknown History cholecalciferol (vitamin D3) 25 25 mcg PO DAILY 02/16/20 02/05/21 Unknown History mcg (1,000 unit) capsule acetaminophen 500 mg tablet 500 mg PO Q6H PRN 07/10/20 02/05/21 Unknown History (Tylenol Extra Strength) tramadol 50 mg tablet 50 mg PO Q8H PRN 07/10/20 02/05/21 Unknown History allopurinol 100 mg tablet 100 mg PO DAILY 11/28/20 02/05/21 Unknown History mirtazapine 15 mg tablet 15 mg PO BEDTIME 11/28/20 02/05/21 Unknown History tolterodine 4 mg capsule,extended 4 mg PO BEDTIME cap 11/28/20 02/05/21 Unknown History release 24 hr Exam Exam Date and Time: February 08, 2021 0911 Pertinent Lab Results Pertinent Lab Results: Laboratory Tests 02/02/21 02/02/21 13:45 13:45 WBC 6.7 Hgb 9.1 L Hct 28.5 L Plt Count 259 Sodium 143 Potassium 4.4 Chloride 107 Carbon Dioxide 26 BUN 18 H Creatinine 1.39 Narrative Narrative: EKG 11/2020 Vent. Rate : 082 BPM ? ? Atrial Rate : 082 BPM ?? P-R Int : 126 ms? QRS Dur : 112 ms ? ? QT Int : 400 ms ? ? ? P-R-T Axes : 019 -51 002 degrees ?? QTc Int : 467 ms ? Normal sinus rhythm Left anterior fascicular block Abnormal ECG When compared with ECG of 14-MAY-2020 22:26, No significant change was found PFT 01/2021 Forced vital capacity is moderately reduced.? FEV1 slightly reduced, but FEV1/FVC ratio is normal. ? ASD79-94 and MVV are normal. ? Post bronchodilator therapy, there is no significant change. ? Total lung capacity and residual volume are slightly decreased. ? Diffusion capacity is moderately decreased. ? CONCLUSION:? Mild to moderate degree of restrictive pulmonary disorder. ? No significant obstructive airway disorder. ? Clinical correlation is recommended. Assessment and Plan Assessment Anesthesia Assessment: Chart Reviewed Documented by User: Roseann Fernandez MD 02/09/21 12:35 PMFSH Past Medical History Medical History Anemia Asthma Biliary dyskinesia Chronic myeloproliferative disease CKD stage 3 due to type 2 diabetes mellitus Diabetes type 2, controlled Diabetic nephropathy Diabetic neuropathy associated with type 2 diabetes mellitus Dyslipidemia GERD (gastroesophageal reflux disease) Hiatal hernia History of depression History of gastritis History of myelofibrosis Hypertension Migraines Morbid obesity due to excess calories BERNIE (obstructive sleep apnea) Upper abdominal pain Vitamin B12 deficiency Family History Family History Father Heart problem HTN (hypertension) Mother Diabetes Family/Other Diabetes HTN (hypertension) Heart problem Sister Cancer Family history of problems with anesthesia: No Surgical History Surgical History H/O stem cell transplant History of partial hysterectomy History of resection of meningioma Hx of breast reduction, elective Hx of colonoscopy Hx of esophagogastroduodenoscopy History of Problems with Anesthesia: No Social History Social History Alcohol intake: former Patient Tobacco Use Status: Never used Tobacco Use of substances other than those prescribed or required for medical reasons: No Are you DNR?: No Advance Directives: No Advance Directives Information Provided: Yes Meds Allergies Allergy/AdvReac Type Severity Reaction Status Date / Time aspirin [ASPIRIN] Allergy Intermediate SWELLING/ITCHING, Verified 02/09/21 10:02 rash Penicillins Allergy Intermediate ITCHING Verified 02/09/21 10:02 vancomycin [VANCOMYCIN] AdvReac Intermediate RED MAN Verified 02/09/21 10:02 SYNDROME PER MD Home Medications Medication Instructions Recorded Confirmed Last Taken Type albuterol 90 mcg/actuation aerosol 90 mcg INHALATION DAILY 02/15/20 02/05/21 Unknown History inhaler citalopram 40 mg tablet 40 mg PO DAILY 02/15/20 02/05/21 Unknown History fluticasone propionate 110 2 puff INHALATION BID 02/15/20 02/05/21 Unknown History mcg/actuation HFA aerosol inhaler ruxolitinib 5 mg tablet (Jakafi) 5 mg PO BID 02/15/20 02/05/21 Unknown History sennosides 8.6 mg capsule (senna) 8.6 mg PO BEDTIME 02/15/20 02/05/21 Unknown History cholecalciferol (vitamin D3) 25 25 mcg PO DAILY 02/16/20 02/05/21 Unknown History mcg (1,000 unit) capsule acetaminophen 500 mg tablet 500 mg PO Q6H PRN 07/10/20 02/05/21 Unknown History (Tylenol Extra Strength) tramadol 50 mg tablet 50 mg PO Q8H PRN 07/10/20 02/05/21 Unknown History allopurinol 100 mg tablet 100 mg PO DAILY 11/28/20 02/05/21 Unknown History mirtazapine 15 mg tablet 15 mg PO BEDTIME 11/28/20 02/05/21 Unknown History tolterodine 4 mg capsule,extended 4 mg PO BEDTIME cap 11/28/20 02/05/21 Unknown History release 24 hr Exam Airway Mallampati Class: II TM Dist: >3cm Neck ROM: Full Assessment and Plan Assessment Anesthesia Assessment: Anesthesia Plan Discussed Final Anesthetic Review Family History of Problems with Anesthesia: No History of Problems with Anesthesia: No NPO: Yes ASA Class: III Final Preanesthetic Review: No Changes in Pt Med Stat, Meds/Allgs Chart Reviewed, Consent Obtained/Reviewed and Anes Risks/Benef Reviewed Patient Risk: Intermediate Procedure Risk: Low Assessment/Block/Sedation in SS: Assess/Block/Sedation-SS Anesthetic Plan Anesthetic Plan: MAC: Disposition: Standard PACU
[2021-02-09 11:07] VITALS: BMI 41.8
[2021-02-09 11:23] VITALS: BP 146/85; PULSE 76; RESP 18; TEMP 36.5; O2SAT 94
[2021-02-09 11:28] LABS: Glucose, Whole Blood 133 mg/dL (60-115)
[2021-02-09] MEDS: Lactated Ringers 1,000 ML 100 ML IVCONT (11:38)
--- NOTE | 2021-02-09 12:25 | MHC.SHP ---
Pre-Procedural Eval Section A Date of Service: 02/09/21 The patient is an INPATIENT: No Changes since office visit: Yes Patient answered all questions; No Cold of Flu in the past 2 weeks, No New Medical Problems and No Changes in Medication The History & Physical has been completed within 30 days and I have reviewed it.: Yes Section B Chief Complaint: GERD Details of Present Illness: GERD, abdominal bloating Allergies: Allergies Allergy/AdvReac Type Severity Reaction Status Date / Time aspirin [ASPIRIN] Allergy Intermediate SWELLING/ITCHING, Verified 02/09/21 10:02 rash Penicillins Allergy Intermediate ITCHING Verified 02/09/21 10:02 vancomycin [VANCOMYCIN] AdvReac Intermediate RED MAN Verified 02/09/21 10:02 SYNDROME PER MD Plan I have reviewed the history and physical and performed a pertinent physical examination on my patient. No changes have occurred unless specified.
--- NOTE | 2021-02-09 12:33 | PM.OP ---
Brief Operative Note Date of Service: 02/09/21 Pre-op diagnosis: GERD, cough, abdominal bloating Post-op diagnosis: other (GERD, gastritis, gastric nodule) Procedure: FLEXIBLE TRANSORAL UPPER GASTROINTESTINAL ENDOSCOPY WITH BIOPSIES Consent: Indications for the procedure and potential complications of bleeding, perforation, reaction to medications and missed diagnosis were discussed with the patient and informed consent was obtained. Instrument: Olympus GIF H 190 mid size upper endoscope Monitoring: Vital signs and clinical assessment, continuous EKG monitoring, Pulse oximetry, Carbon Dioxide monitoring and blood pressure monitoring were done throughout the procedure. Procedure: The patient was placed in the left lateral decubitis position and pre-procedure medications were administered and a bite block was placed. The endoscope was inserted into the mouth and advanced under direct vision to the third part of duodenum. A careful inspection was made as the upper endoscope was withdrawn including a retroflexed examination of the proximal stomach; Findings and interventions are described below. Findings: Larynx: Normal Esophagus: GE junction at 35 cms. No esophagitis or Johns Stomach: A 1.5 cms benign appearing nodule in the pre-pyloric area with central erosion - biopsies were obtained. Mild gastric erythema. Biopsies were obtained. Grade 2 flap valve on retroflexed examination of the cardia. Duodenum: Normal bulb and descending duodenum. Biopsies were obtained from 3rd part of the duodenum to check for celiac sprue. Intervention: Biopsies as noted above Impression and Post Procedure Diagnosis: Endoscopy Findings: STOMACH: A 1.5 cms benign appearing nodule in the pre-pyloric area with central erosion - biopsies were obtained. Mild gastric erythema. Biopsies were obtained. DUODENUM: Normal - biopsied to check for celiac sprue Plan: Await pathology results Patient has an appointment on 02/27/21 in the GI Clinic with Kristal Villasenor NP -. Above findings were reviewed with the patient and GERD and Gastritis handouts were given in the discharge area Surgeon: Cristhian Foster MD Anesthesia: MAC (Tex Malik CRNA) Was an Telephone Cleaner used for this Procedure?: Yes Telephone Cleaner: Valentin Wang Estimated blood loss (mL): 0 Pathology: other (A- SMALL BOWEL BXS R/O CELIAC B- GASTRIC ANTRUM R/O H. PYLORI C- GASTRIC NODULE) Condition: stable Disposition: PACU
--- NOTE | 2021-02-09 12:34 | P.OP_ITS ---
Operative Note Operative Note Date of Service: 02/09/21 Narrative: Pre-op diagnosis:?GERD, cough, abdominal bloating Post-op diagnosis:?other (GERD, gastritis, gastric nodule) Procedure:? FLEXIBLE TRANSORAL UPPER GASTROINTESTINAL ENDOSCOPY WITH BIOPSIES Consent:?Indications for the procedure and potential complications of bleeding, perforation, reaction to medications and missed diagnosis were discussed with the patient and informed consent was obtained. Instrument:?Olympus GIF H 190 mid size upper endoscope Monitoring: Vital signs and clinical assessment, continuous EKG monitoring, Pulse oximetry, Carbon Dioxide monitoring and blood pressure monitoring were done throughout the procedure. Procedure:?The patient was placed in the left lateral decubitis position and pre-procedure medications were administered and a bite block was placed. The endoscope was inserted into the mouth and advanced under direct vision to the third part of duodenum. A careful inspection was made as the upper endoscope was withdrawn including a retroflexed examination of the proximal stomach; Findings and interventions are described below. Findings: Larynx:??Normal Esophagus:?GE junction at 35 cms.? No esophagitis or Johns Stomach:?A 1.5 cms benign appearing nodule in the pre-pyloric area with central erosion - biopsies were obtained.? Mild gastric erythema. Biopsies were obtained. Grade 2 flap valve on retroflexed examination of the cardia. Duodenum:?Normal bulb and descending duodenum.? Biopsies were obtained from 3rd part of the duodenum to check for celiac sprue. Intervention:?Biopsies as noted above Impression and Post Procedure Diagnosis: Endoscopy Findings: STOMACH: A 1.5 cms benign appearing nodule in the pre-pyloric area with central erosion - biopsies were obtained.? Mild gastric erythema. Biopsies were obtained. DUODENUM: Normal - biopsied to check for celiac sprue Plan: Await pathology results Patient has an appointment on 02/27/21 in the GI Clinic with Kristal Villasenor NP -. Above findings were reviewed with the patient and GERD and Gastritis handouts were given in the discharge area Surgeon:?Cristhian Foster MD Anesthesia:?BECKY (Tex Malik CRNA) Was an Employment Law Specialist used for this Procedure?:?Yes Employment Law Specialist:?Valentin Wang Estimated blood loss (mL):?0 Pathology:?other (A- SMALL BOWEL BXS? R/O CELIAC? B- GASTRIC ANTRUM? R/O H. PYLORI? C- GASTRIC NODULE) Condition:?stable Disposition:?PACU
[2021-02-09 12:57] VITALS: BP 146/74; PULSE 87; RESP 18; TEMP 36.2
[2021-02-09 13:12] VITALS: BP 142/85; PULSE 70; RESP 16; TEMP 36.2; O2SAT 95
== END 2021-02-09 13:55 | disposition home or self-care (01) ==
PROVIDERS: PCP Internal Medicine; Visit Provider Internal Medicine Gastroenterology
PROC: 0DJ08ZZ Inspection of Upper Intestinal Tract, Via Natural or Artificial Opening Endoscopic (ICD-10-PCS; CPT 43235; principal; 2021-02-09 12:30)
DX: K21.9 Gastro-esophageal reflux disease without esophagitis (principal); R14.0 Abdominal distension (gaseous); K29.70 Gastritis, unspecified, without bleeding; K31.89 Other diseases of stomach and duodenum; E11.22 Type 2 diabetes mellitus with diabetic chronic kidney disease; I12.9 Hypertensive chronic kidney disease with stage 1 through stage 4 chronic kidney disease, or unspecified chronic kidney disease; N18.30 Chronic kidney disease, stage 3 unspecified; E11.40 Type 2 diabetes mellitus with diabetic neuropathy, unspecified; Z88.0 Allergy status to penicillin; Z88.6 Allergy status to analgesic agent; M17.0 Bilateral primary osteoarthritis of knee
CPT/HCPCS: 43239; 82947; 88305; 88342; 99212

== ENCOUNTER → 2021-02-14 08:39 | Outpatient (REF) | payer MEDICAID, SELFPAY | LOC: HO.SL 08:39 | PROVIDERS: PCP Internal Medicine; Visit Provider Psychiatry & Neurology Neurology | DX: G47.33 Obstructive sleep apnea (adult) (pediatric) (principal) | CPT/HCPCS: 95806 ==

== ENCOUNTER 2021-02-17 17:55 | Emergency (ER) | payer MEDICAID, SELFPAY ==
--- NOTE | ~2021-02-17 | CT_ITS ---
EXAMINATION: CT ABDOMEN AND PELVIS WITHOUT CONTRAST CLINICAL INFORMATION: Pain left lower quadrant. Tenderness. COMPARISON: CT scan abdomen pelvis November 03, 2020 TECHNIQUE: Multidetector volumetric imaging was performed from the superior aspect of the liver through the pubic symphysis. Sagittal and coronal reformatted images were obtained on the technologist's workstation. This CT examination was performed using dose optimization techniques as appropriate, variously including the following: *Automated exposure control *Adjustment of mA and/or kV according to patient size (this includes techniques or standardized protocols for targeted exams where dose is matched to indication/reason for exam; i.e. extremities or head) *Use of iterative reconstruction technique DLP: 888 mGy-cm FINDINGS: LUNG BASES: The visualized lung bases are unremarkable. LIVER, GALLBLADDER, AND BILIARY TREE: There is hepatomegaly. Right lobe liver measures 23 cm superior inferior. No focal liver lesion or intrahepatic bile duct dilatation. The gallbladder is unremarkable with no evidence of radiopaque gallstones, gallbladder wall thickening, or obvious pericholecystic inflammatory changes. PANCREAS: Unremarkable. SPLEEN: Unremarkable. ADRENAL GLANDS: Unremarkable. KIDNEYS AND URETERS: There is a 3 mm stone in the midpole of the left kidney. Stone is unchanged since CAT scan November 03, 2020. No stone in right kidney. There is no hydronephrosis. No ureteral stone. 2 cm cyst in the cortex lower pole right kidney. Density measurement 3 Hounsfield units. No follow-up imaging is recommended for simple renal cyst. BLADDER: Unremarkable. GASTROINTESTINAL TRACT: The small and large bowel are unremarkable. The appendix is unremarkable. ABDOMINAL WALL: No significant hernia is appreciated. LYMPH NODES: Normal. VASCULAR: Unremarkable. PELVIC VISCERA: Unremarkable. OSSEOUS STRUCTURES: Unremarkable. CT/CT abdomen pelvis wo con IMPRESSION: No acute abnormality the abdomen or pelvis. Small nonobstructive stone mid pole left kidney. No ureteral stone or hydronephrosis.
[2021-02-17 19:45] LABS: MANUAL DIFF FLAG NO
[2021-02-17 19:47] LABS: Basophils Percent Auto 0.2 % (0-2); Eosinophils Absolute Auto 0.2 X10*3/uL (0.0-0.4); Eosinophils Percent Auto 1.7 % (0-4); Hematocrit 29.2 % (37-47); Hemoglobin 9.4 g/dl (12.0-16.0); Imm Gran Abs Auto 0.07 X10*3/uL (0.00-0.03); Imm Gran Pct Auto 0.8 % (0.0-0.4); Lymphocytes Absolute Auto 1.8 X10*3/uL (1.2-4.9); Lymphocytes Percent Auto 20.4 % (20-40); Mean Corpuscular HGB Conc 32.2 g/dl (31.0-35.0); Mean Corpuscular Hemoglobin 27.9 pg (27.0-33.0); Mean Corpuscular Volume 86.6 fL (80-98); Mean Platelet Volume 9.3 fL (9.4-12.3); Monocytes Absolute Auto 0.8 X10*3/uL (0.1-1.2); Monocytes Percent Auto 8.3 % (2-11); NRBC Pct Auto 0.2 /100WBC (0.0-0.2); Neutrophils Absolute Auto 6.2 X10*3/uL (2.0-8.3); Neutrophils Percent Auto 68.6 % (45-73); Platelet Count 258 X10*3/uL (160-400); Red Blood Count 3.37 X10*6/uL (4.20-5.50)
[2021-02-17 20:05] LABS: Alanine Aminotransferase 20 U/L (0-31); Albumin Level 4.3 g/dL (3.5-5.0); Alkaline Phosphatase 103 U/L (39-117); Anion Gap 16 (12-20); Aspartate Amino Transferase 17 U/L (5-31); Bilirubin Total 0.3 mg/dL (0.0-1.0); Blood Urea Nitrogen 22 mg/dL (9-16); Calcium 9.4 mg/dL (8.4-10.2); Carbon Dioxide 23 mmol/L (22-29); Chloride 108 mmol/L (96-108); Estimated Glomerular Filt Rate 36; Glucose Random 85 mg/dL (60-115); Potassium 4.7 mmol/L (3.3-5.1); Sodium 142 mmol/L (135-145); Total Protein 7.2 g/dL (6.5-8.0)
[2021-02-17 21:02] VITALS: BP 142/71; PULSE 68; RESP 16; TEMP 37.3; O2SAT 97; BMI 41.8
[2021-02-17 22:01] VITALS: BP 122/64; PULSE 73; RESP 18; TEMP 37.1; O2SAT 96
--- NOTE | 2021-02-17 22:52 | ED.ABDPAIN ---
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 She states she has also had abdominal discomfort primarily in the upper abdomen that she describes it is burning in nature without radiation. She states that this has not happened before and that the number of diarrheal episodes has not improved. In addition, she denies any recent medication changes or new medications and denies any use of antibiotics within the past 3 months. She does describe some mild dizziness that this has started since the onset of her multiple episodes of diarrhea. She states that as soon as she eats something it ?goes right through me?. She does endorse a recent upper endoscopy for gastritis. Related Data Home Medications Medication Instructions Recorded Confirmed albuterol 90 mcg/actuation aerosol 90 mcg INHALATION DAILY 02/15/20 02/05/21 inhaler citalopram 40 mg tablet 40 mg PO DAILY 02/15/20 02/05/21 fluticasone propionate 110 2 puff INHALATION BID 02/15/20 02/05/21 mcg/actuation HFA aerosol inhaler ruxolitinib 5 mg tablet (Jakafi) 5 mg PO BID 02/15/20 02/05/21 sennosides 8.6 mg capsule (senna) 8.6 mg PO BEDTIME 02/15/20 02/05/21 cholecalciferol (vitamin D3) 25 25 mcg PO DAILY 02/16/20 02/05/21 mcg (1,000 unit) capsule acetaminophen 500 mg tablet 500 mg PO Q6H PRN 07/10/20 02/05/21 (Tylenol Extra Strength) tramadol 50 mg tablet 50 mg PO Q8H PRN 07/10/20 02/05/21 allopurinol 100 mg tablet 100 mg PO DAILY 11/28/20 02/05/21 mirtazapine 15 mg tablet 15 mg PO BEDTIME 11/28/20 02/05/21 tolterodine 4 mg capsule,extended 4 mg PO BEDTIME cap 11/28/20 02/05/21 release 24 hr Previous Rx's Medication Instructions Recorded folic acid 1 mg tablet 1 mg PO DAILY #90 tab 07/25/20 amlodipine 10 mg tablet 10 mg PO DAILY 90 Days #90 tab 08/23/20 lisinopril 5 mg tablet 5 mg PO DAILY 90 Days #90 tab 09/18/20 atorvastatin 40 mg tablet 40 mg PO BEDTIME 90 Days #90 tab 09/19/20 oxycodone 5 mg tablet 5 mg PO Q8H PRN #30 tab 11/07/20 albuterol sulfate 2.5 mg INHALATION Q4-6H PRN #75 ml 11/14/20 canagliflozin 100 mg tablet 100 mg PO DAILY 90 Days #90 tab 11/20/20 (Invokana) metformin 1,000 mg tablet 1,000 mg PO DAILY 90 Days #90 tab 11/20/20 sitagliptin 50 mg tablet (Januvia) 50 mg PO DAILY 90 Days #90 tab 11/20/20 famotidine 40 mg tablet (Pepcid) 40 mg PO BID 30 Days #60 tab 12/15/20 albuterol sulfate 90 mcg/actuation 2 puff INHALATION Q4-6H PRN 30 01/11/21 aerosol inhaler Days #1 ea fluticasone 250 mcg-salmeterol 50 1 inh INHALATION BID 30 Days #1 ea 01/11/21 mcg/dose blistr powdr for inhalation (Wixela Inhub) [id number] 1 cap PO .QIDAC 30 Days #120 cap 01/12/21 24,000-76,000-120,000 unit capsule,delayed rel (Creon) simethicone 180 mg capsule 180 mg PO QID #120 cap 01/12/21 Allergies Allergy/AdvReac Type Severity Reaction Status Date / Time aspirin [ASPIRIN] Allergy Intermediate SWELLING/ITCHING, Verified 02/17/21 21:02 rash Penicillins Allergy Intermediate ITCHING Verified 02/17/21 21:02 vancomycin [VANCOMYCIN] AdvReac Intermediate RED MAN Verified 02/17/21 21:02 SYNDROME PER MD Review of Systems Review of Systems Pertinent positives and negatives as stated in HPI 10 point review of systems is otherwise negative. Physical Exam Vital Signs: Vital Signs: Last Vital Signs Temp 98.7 F 02/17/21 22:01 Pulse 64 02/18/21 00:13 Resp 18 02/18/21 00:13 BP 135/67 02/18/21 00:13 Pulse Ox 96 02/18/21 00:13 Body Mass Index 41.8 VITAL SIGNS: Reviewed. GENERAL: Well developed, well nourished, in no acute distress. HEAD: Normocephalic/atraumatic EYES: PERRLA, EOMI OROPHARYNX: no oral lesions noted, posterior pharynx clear, moist mucosa NECK: Supple, no adenopathy LUNGS: Normal breath sounds. No adventitious sounds or accessory muscle use. SpO2<96> CARDIOVASCULAR: Regular rate and rhythm without noted murmurs, no JVD or lower extremity edema. ABDOMEN: Soft, diffusely tender and maximal in left lower quadrant as well as right upper quadrant without rebound, non-distended with bowel sounds. MUSCULOSKELETAL: No tenderness, deformities, or effusions noted on gross inspection. EXTREMITIES: No cyanosis, clubbing or edema. SKIN: Inspection of the skin reveals no rashes NEUROLOGIC: Alert and oriented x 4. Strength and sensation to light touch were grossly intact x 4. Course Course Course Narrative: 2300: 55-year-old female with history and clinical presentation suggestive of gastroenteritis, pancreatitis, colitis, diverticulitis and suspect infection. Review of all investigations otherwise negative for acute findings. Patient received 1 L of IV fluids is had no further episodes of diarrhea since being evaluated here in the emergency room. Patient was encouraged to follow-up with her primary care provider on Friday morning and to start taking [id number] Imodium if diarrhea did not improve in the next 24 hours. She was strongly encouraged to increase fluid hydration despite the association with increased bowel movements. Review of repeat lab work and urinalysis with resolution lactic acidosis and improvement of creatinine to baseline levels. Urinalysis is negative for acute findings other than few RBCs. All results and findings discussed with patient at bedside she was discharged home in stable condition. MDM - Abdominal Pain Lab Data Result diagrams: 02/17/21 19:40 02/18/21 00:19 Labs: Lab Results 02/17/21 02/17/21 02/17/21 Range/Units 19:40 19:40 23:04 WBC 9.0 (4.8-10.8) X10*3/uL RBC 3.37 L (4.20-5.50) X10*6/uL Hgb 9.4 L (12.0-16.0) g/dl Hct 29.2 L (37-47) % MCV 86.6 (80-98) fL MCH 27.9 (27.0-33.0) pg MCHC 32.2 (31.0-35.0) g/dl RDW 15.0 (11.0-16.0) % Plt Count 258 (160-400) X10*3/uL MPV 9.3 L (9.4-12.3) fL Immature Gran % (Auto) 0.8 H (0.0-0.4) % Neut % (Auto) 68.6 (45-73) % Lymph % (Auto) 20.4 (20-40) % [place] % (Auto) 8.3 (2-11) % Eos % (Auto) 1.7 (0-4) % Baso % (Auto) 0.2 (0-2) % Lymph # (Auto) 1.8 (1.2-4.9) X10*3/uL [place] # (Auto) 0.8 (0.1-1.2) X10*3/uL Eos # (Auto) 0.2 (0.0-0.4) X10*3/uL Baso # (Auto) 0.0 (0.0-0.2) X10*3/uL Abs Immat Gran (auto) 0.07 H (0.00-0.03) X10*3/uL Absolute Neuts (auto) 6.2 (2.0-8.3) X10*3/uL Absolute Nucleated RBC 0.020 H (0.0-0.012) X10*3/uL Nucleated RBC % (auto) 0.2 (0.0-0.2) /100WBC Sodium 142 (135-145) mmol/L Potassium 4.7 (3.3-5.1) mmol/L Chloride 108 (96-108) mmol/L Carbon Dioxide 23 (22-29) mmol/L Anion Gap 16 (12-20) BUN 22 H (9-16) mg/dL Creatinine 1.50 H (0.5-1.4) mg/dL Estim Creat Clear Calc TNP Estimated GFR 36 Random Glucose 85 (60-115) mg/dL Lactic Acid 2.6 H* (0.5-2.0) mmol/L Calcium 9.4 (8.4-10.2) mg/dL Total Bilirubin 0.3 (0.0-1.0) mg/dL AST 17 (5-31) U/L ALT 20 (0-31) U/L Alkaline Phosphatase 103 (39-117) U/L Total Protein 7.2 (6.5-8.0) g/dL Albumin 4.3 (3.5-5.0) g/dL Lipase 32 (8-78) U/L Urine Color Urine Appearance Urine pH (5.0-8.0) Ur Specific [place] (1.005-1.025) Urine Protein (NEG-TRACE) MG/DL Urine Glucose (UA) (NEG) MG/DL Urine Ketones (NEG) MG/DL Urine Blood (NEG) Urine Nitrite (NEG) Ur Leukocyte Esterase (NEG) Urine RBC (0) /HPF Urine WBC (0-4) /HPF Ur Squamous Epith Cells /LPF Urine Bacteria /LPF Urine Mucus /LPF 02/18/21 02/18/21 02/18/21 Range/Units 00:19 00:19 00:19 WBC (4.8-10.8) X10*3/uL RBC (4.20-5.50) X10*6/uL Hgb (12.0-16.0) g/dl Hct (37-47) % MCV (80-98) fL MCH (27.0-33.0) pg MCHC (31.0-35.0) g/dl RDW (11.0-16.0) % Plt Count (160-400) X10*3/uL MPV (9.4-12.3) fL Immature Gran % (Auto) (0.0-0.4) % Neut % (Auto) (45-73) % Lymph % (Auto) (20-40) % [place] % (Auto) (2-11) % Eos % (Auto) (0-4) % Baso % (Auto) (0-2) % Lymph # (Auto) (1.2-4.9) X10*3/uL [place] # (Auto) (0.1-1.2) X10*3/uL Eos # (Auto) (0.0-0.4) X10*3/uL Baso # (Auto) (0.0-0.2) X10*3/uL Abs Immat Gran (auto) (0.00-0.03) X10*3/uL Absolute Neuts (auto) (2.0-8.3) X10*3/uL Absolute Nucleated RBC (0.0-0.012) X10*3/uL Nucleated RBC % (auto) (0.0-0.2) /100WBC Sodium 141 (135-145) mmol/L Potassium 4.3 (3.3-5.1) mmol/L Chloride 110 H (96-108) mmol/L Carbon Dioxide 22 (22-29) mmol/L Anion Gap 13 (12-20) BUN 21 H (9-16) mg/dL Creatinine 1.29 (0.5-1.4) mg/dL Estim Creat Clear Calc 64.9 Estimated GFR 43 Random Glucose 104 (60-115) mg/dL Lactic Acid 1.7 (0.5-2.0) mmol/L Calcium 8.7 D (8.4-10.2) mg/dL Total Bilirubin (0.0-1.0) mg/dL AST (5-31) U/L ALT (0-31) U/L Alkaline Phosphatase (39-117) U/L Total Protein (6.5-8.0) g/dL Albumin (3.5-5.0) g/dL Lipase (8-78) U/L Urine Color YELLOW Urine Appearance CLEAR Urine pH 5.5 (5.0-8.0) Ur Specific [place] 1.020 (1.005-1.025) Urine Protein NEG (NEG-TRACE) MG/DL Urine Glucose (UA) NEG (NEG) MG/DL Urine Ketones NEG (NEG) MG/DL Urine Blood 2+ H (NEG) Urine Nitrite NEG (NEG) Ur Leukocyte Esterase NEG (NEG) Urine RBC 5-9 H (0) /HPF Urine WBC 1-4 (0-4) /HPF Ur Squamous Epith Cells 1+ /LPF Urine Bacteria TRACE /LPF Urine Mucus TRACE /LPF Discharge Plan Discharge Clinical Impression: Diarrhea, Mild dehydration Patient Disposition: Home, Self-Care Instructions: Dehydration (ED), Acute Diarrhea (ED) Additional Instructions: 1. Reanude todos los medicamentos caseros seg?n lo prescrito. 2. Incrementar la hidrataci?n de los fluidos especialmente con agua. 3. Michaela un seguimiento con lim proveedor de atenci?n primaria el lunes por la ma?shad para rosario reevaluaci?n y un tratamiento ambulatorio adicional. 4. Si los episodios de diarrea no disminuyen en n?foster shira las pr?ximas 24 horas, recomiende comenzar con Imodium de venta donald amira se indica en el empaque exterior. Regrese a la mei de emergencias por un empeoramiento ana de los s?ntomas. Prescriptions: No Action amlodipine 10 mg tablet 10 mg PO DAILY 90 Days Qty: 90 RF: 1 lisinopril 5 mg tablet 5 mg PO DAILY 90 Days Qty: 90 RF: 1 atorvastatin 40 mg tablet 40 mg PO BEDTIME 90 Days Qty: 90 RF: 1 folic acid 1 mg Tablet 1 mg PO DAILY Qty: 90 RF: 3 albuterol sulfate 2.5 mg /3 mL (0.083 %) solution for nebulization 2.5 mg inhalation Q4-6H PRN (Reason: shortness of breath or wheezing) Qty: 75 RF: 0 citalopram 40 mg Tablet 40 mg PO DAILY RF: 0 albuterol 90 mcg/actuation Aerosol 90 mcg INHALATION DAILY RF: 0 fluticasone propionate 110 mcg/actuation Hfa Aerosol Inhaler 2 puff INHALATION BID RF: 0 senna 8.6 mg Capsule 8.6 mg PO BEDTIME RF: 0 Jakafi 5 mg Tablet 5 mg PO BID RF: 0 oxycodone 5 mg Tablet 5 mg PO Q8H PRN (Reason: Breakthrough Pain, Moderate) Qty: 30 RF: 0 tramadol 50 mg tablet 50 mg PO Q8H PRN (Reason: Pain) RF: 0 acetaminophen [Tylenol Extra Strength] 500 mg tablet 500 mg PO Q6H PRN (Reason: Pain) RF: 0 cholecalciferol (vitamin D3) 25 mcg (1,000 unit) capsule 25 mcg PO DAILY RF: 0 Invokana 100 mg tablet 100 mg PO DAILY 90 Days Qty: 90 RF: 2 metformin 1,000 mg tablet 1,000 mg PO DAILY 90 Days Qty: 90 RF: 1 Januvia 50 mg tablet 50 mg PO DAILY 90 Days Qty: 90 RF: 2 allopurinol 100 mg tablet 100 mg PO DAILY RF: 0 tolterodine 4 mg capsule,extended release 24hr 4 mg PO BEDTIME RF: 0 mirtazapine 15 mg tablet 15 mg PO BEDTIME RF: 0 famotidine [Pepcid] 40 mg tablet 40 mg PO BID 30 Days Qty: 60 RF: 6 Creon 24,000-76,000 -120,000 unit capsule,delayed release(DR/EC) 1 cap PO .QIDAC 30 Days Qty: 120 RF: 6 simethicone 180 mg capsule 180 mg PO QID Qty: 120 RF: 6 fluticasone propion-salmeterol [Wixela Inhub] 250-50 mcg/dose blister with device 1 inh inhalation BID 30 Days Qty: 1 RF: 6 albuterol sulfate 90 mcg/actuation HFA aerosol inhaler 2 puff inhalation Q4-6H PRN (Reason: shortness of breath or wheezing) 30 Days Qty: 1 RF: 6 Referrals: Kalpana Baptiste MD [Primary Care Provider] - 2 days Print Language: Ecuadorean [facility] Past Medical History Source: nursing notes reviewed Medical History Anemia Asthma Biliary dyskinesia Chronic myeloproliferative disease CKD stage 3 due to type 2 diabetes mellitus Diabetes Diabetes type 2, controlled Diabetic nephropathy Diabetic neuropathy associated with type 2 diabetes mellitus Dyslipidemia GERD (gastroesophageal reflux disease) Hiatal hernia History of depression History of gastritis History of myelofibrosis Hypertension Migraines Morbid obesity due to excess calories BERNIE (obstructive sleep apnea) Upper abdominal pain Vitamin B12 deficiency Surgical History Bone marrow replaced by transplant H/O stem cell transplant History of partial hysterectomy History of resection of meningioma Hx of breast reduction, elective Hx of colonoscopy Hx of esophagogastroduodenoscopy Family History Family History Father Heart problem HTN (hypertension) Mother Diabetes Family/Other Diabetes HTN (hypertension) Heart problem Sister Cancer Social History Social History Alcohol intake: never Patient Tobacco Use Status: Never used Tobacco Use of substances other than those prescribed or required for medical reasons: No Advance Directives: No Advance Directives Information Provided: Yes
[2021-02-17 23:07] LABS: Lipase 32 U/L (8-78)
[2021-02-17] MEDS: 0.9 % Sodium Chloride 1,000 ML 999 ML IV (23:19)
[2021-02-17 23:24] LABS: Lactic Acid 2.6 mmol/L (0.5-2.0)
[2021-02-18 00:13] VITALS: BP 135/67; PULSE 64; RESP 18; O2SAT 96
[2021-02-18 00:26] LABS: Appearance Urine CLEAR; Color Urine YELLOW; Glucose Urine UA NEG (NEG); Leukocyte Esterase Urine NEG (NEG); Nitrite Urine NEG (NEG); PH 5.5 (5.0-8.0); UACC Culture Trigger NO; Urine Blood 2+ (NEG); Urine Ketones NEG (NEG); Urine Protein NEG (NEG-TRACE)
[2021-02-18 00:37] LABS: Bacteria Urine TRACE /LPF; Mucus Urine TRACE /LPF; Squamous Epithelial Cell Urine 1+ /LPF
[2021-02-18 00:42] LABS: Lactic Acid 1.7 mmol/L (0.5-2.0)
[2021-02-18 00:48] LABS: Anion Gap 13 (12-20); Blood Urea Nitrogen 21 mg/dL (9-16); Calcium 8.7 mg/dL (8.4-10.2); Carbon Dioxide 22 mmol/L (22-29); Chloride 110 mmol/L (96-108); Creatinine Clr Calc Pharmacy 64.9; Estimated Glomerular Filt Rate 43; Glucose Random 104 mg/dL (60-115); Potassium 4.3 mmol/L (3.3-5.1); Sodium 141 mmol/L (135-145)
== END 2021-02-18 01:19 | disposition home or self-care (01) ==
PROVIDERS: Emergency Provider Student in an Organized Health Care Education/Training Program; PCP Internal Medicine
DX: R19.7 Diarrhea, unspecified (principal); E86.0 Dehydration; E11.9 Type 2 diabetes mellitus without complications; I10 Essential (primary) hypertension; J45.909 Unspecified asthma, uncomplicated
CPT/HCPCS: 36415; 74176; 80048; 80053; 81001; 83605; 83690; 85025; 87040; 96360; 99284; 99285

== ENCOUNTER → 2021-02-27 15:27 | Outpatient (BNVA) | payer MEDICAID, SELFPAY | PROVIDERS: PCP Internal Medicine; Visit Provider Nurse Practitioner ==

== ENCOUNTER → 2021-03-02 09:22 | Outpatient (REF) | payer MEDICAID, SELFPAY ==
--- NOTE | 2021-03-02 09:27 | CA_ITS ---
Transthoracic Echocardiogram Patient (Last, First, Middle): Santa Kate, Gender: Female Date of : 1965 Age: 56 Procedure Date: 03/02/2021 Procedure Type: Transthoracic Echocardiogram Location: OP Height: 170.18 cm Weight: 121.11 kg BSA: 2.29 m2 Heart Rate: bpm BP: 138 / 70 mmHg Equal Opportunity Officer: JOSE Anderson MD: Marcio Sandoval MD Symptoms: R06.00 - Dyspnea, unspecified Study Quality: Fair Conclusions: - Normal left ventricular size and systolic function. - There is mildly increased left ventricular wall thickness. - There is mild aortic valve stenosis. Findings Left Ventricle Normal left ventricular size and systolic function. There is mildly increased left ventricular wall thickness. The visually estimated ejection fraction is between 55-60%. There is no evidence of regional wall motion abnormalities. Diastolic function is normal for age. Right Ventricle Normal right ventricular cavity size and systolic function. Atria Both atria are normal in size. Aortic Valve There is a normal trileaflet aortic valve. There is mild thickening of the aortic valve. There is mild aortic valve stenosis. The peak aortic velocity is 2.05 m/s. There is no aortic valve regurgitation. Mitral Valve Normal mitral valve structure and function. There is no mitral valve regurgitation. There is no mitral valve stenosis. Pulmonic Valve Normal pulmonic valve structure and function. There is no pulmonic valve regurgitation. Tricuspid Valve Normal tricuspid valve structure and function. There is trace tricuspid valve regurgitation. Indeterminate right atrial pressure. Great Vessels There is mild dilatation of the ascending aorta measuring 3.60 cm. The visualized portions of the pulmonary artery and branches are normal. Venous The inferior vena cava was not well visualized. Pericardium/Pleural There is no evidence of pericardial effusion. Measurements 2D Linear Measurements IVSd: 1.14 0.6-0.9/0.6-1.0 cm LVIDd: 3.95 3.9-5.3/4.2-5.9 cm LVIDd Index: 1.72 2.4-3.2/2.2-3.1 cm/m2 LVIDs: 2.53 2.0-3.6 cm LVPWd: 1.17 0.7-1.1 cm Ao Root: 3.20 2.1-3.5 cm LA Diam: 3.30 2.7-3.8/3.0-4.0 cm LAIDs Index: 1.44 1.5-2.3 cm/m2 LV Mass: 191.03 67-162/88-224 g LV Mass Index: 83.42 43-95/49-115 g/m2 LVOT Diam: 2.00 3.0+(-)1.3 cm 2D Systolic Function EF 4C: 54.50 >55% EF 2C: 55.90 >55% EF BiP: 54.60 >55% Mitral Valve MV Pk E: 0.96 MV PK A: 0.88 MV Decel Time: 213.00 E/A: 1.10 E'Lateral: 11.10 E'Medial: 6.64 E/E' Med: 14.50 E/E' Lat: 8.60 PHT: 62.00 MVA PHT: 3.55 Decel [place]: 4.51 Aortic Valve AoV Pk Ronaldo: 2.05 AoV Mn Ronaldo: 1.38 AoV VTI: 0.41 AoV Pk Grad: 17.00 Aov Mn Grad: 8.00 PELON Cont.VTI: 1.92 LVOT LVOT Pk Ronaldo: 1.31 LVOT Mn Ronaldo: 0.89 LVOT VTI: 0.25 LVOT Pk Grad: 7.00 LVOT Mn Grad: 3.00 LVOT Diam: 2.00 LVOT Area: 3.14 Diastolic Function MV Pk E: 0.96 MV Pk A: 0.88 E/A: 1.10 E'Medial: 6.64 E/E' Med: 14.50 E' Laterial: 11.10 E/E' Lat: 8.60 Right Ventricle TAPSE (mm): 2.38 TVS' Ronaldo: 11.30 Tricuspid Valve TR Pk Ronaldo: 2.55 TR Pk Grad: 26.00 RA Press: 3.00 RVSP: 29.00 Great Vessels Aorta Ao Root-2D: 3.20 2.0-3.7 cm Ao Asc: 3.60 2.1-3.4 cm Ao Arch: 3.20 Updated in Other Vendor System with Status of Final Natanael Montano MD electronically signed on 03/03/2021 7:34:40 PM with status of Final
== END ==
LOC: HO.CARD 09:22
PROVIDERS: PCP Internal Medicine; Visit Provider Internal Medicine Pulmonary Disease
DX: R06.00 Dyspnea, unspecified (principal)
CPT/HCPCS: 93306

== ENCOUNTER → 2021-03-07 08:23 | Outpatient (BNVA) | payer MEDICAID, SELFPAY | PROVIDERS: PCP Internal Medicine; Visit Provider Anesthesiology | DX: J45.909 Unspecified asthma, uncomplicated (principal); R06.00 Dyspnea, unspecified | CPT/HCPCS: 99202; 99212 ==

== ENCOUNTER 2021-03-27 09:52 | Outpatient (REF) | payer MEDICAID, SELFPAY ==
--- NOTE | ~2021-03-27 | CT_ITS ---
EXAMINATION: CT CHEST WITH CONTRAST CLINICAL INFORMATION: Dyspnea COMPARISON: None TECHNIQUE: Multidetector volumetric CT imaging of the chest was obtained after the administration of 65 mL of Omnipaque 350 intravenous contrast without immediate adverse reactions. Axial MIP volume rendering provided. Sagittal and coronal reformatted images were obtained. This CT examination was performed using dose optimization techniques as appropriate, variously including the following: *Automated exposure control *Adjustment of mA and/or kV according to patient size (this includes techniques or standardized protocols for targeted exams where dose is matched to indication/reason for exam; i.e. extremities or head) *Use of iterative reconstruction technique DLP: 242 mGy-cm FINDINGS: LUNGS: The lungs are clear with no evidence of inflammation or nodules. Mild right basilar subsegmental atelectasis, or focal atelectatic changes within the dependent right lower lobe. MEDIASTINUM: Normal heart size. No pericardial effusion. Great vessels normal caliber. No mediastinal or hilar adenopathy. PLEURA: There is no pleural effusion. No pleural mass or thickening. CHEST WALL/AXILLA: No lymphadenopathy. Stable post surgical changes within the left breast and accompanying dystrophic calcification. UPPER ABDOMEN: Hepatic steatosis. There is a 2 mm nonobstructive calculus in the upper pole of left kidney. A benign parapelvic cysts is present in the upper pole right kidney. This requires no further follow-up. OSSEOUS STRUCTURES: No acute or suspicious osseous abnormalities. CT/CT chest w con IMPRESSION: No etiology for the patient's dyspnea is identified. Hepatic steatosis.
[2021-03-27] MEDS: iohexoL 350 MG/ML 100 ML INFUS..BTL IV (11:20)
== END 2021-03-27 09:53 | disposition home or self-care (01) ==
LOC: HO.CT 09:52
PROVIDERS: Visit Provider Internal Medicine Pulmonary Disease
DX: R06.00 Dyspnea, unspecified (principal)
CPT/HCPCS: 71260; Q9967

== ENCOUNTER → 2021-04-02 12:43 | Outpatient (BNVA) | payer MEDICAID, SELFPAY | PROVIDERS: PCP Internal Medicine; Visit Provider Nurse Practitioner Gerontology | DX: E11.21 Type 2 diabetes mellitus with diabetic nephropathy (principal); E11.40 Type 2 diabetes mellitus with diabetic neuropathy, unspecified; E78.5 Hyperlipidemia, unspecified; E66.01 Morbid (severe) obesity due to excess calories; I10 Essential (primary) hypertension; Z68.41 Body mass index [BMI] 40.0-44.9, adult | CPT/HCPCS: 82947; 83036; 99212 ==

== ENCOUNTER 2021-04-03 06:31 | Outpatient (REF) | payer MEDICAID, SELFPAY ==
--- NOTE | ~2021-04-03 | FL_ITS ---
EXAMINATION: XR FLUOROSCOPY WITH IMAGES CLINICAL INFORMATION: M17.0 - Bilateral primary osteoarthritis of knee COMPARISON: Radiographs knees 12/16/2019 TECHNIQUE: Fluoroscopy performed by Dr. Candido Manzano. Fluoroscopy time: 0.2 minutes DAP: 0.839 Gycm2 Images: 2 FINDINGS: There are spinal needles adjacent to the distal femoral shaft, medial and lateral sides, mid depth. There is a spinal needle adjacent to the proximal tibia on medial side mid depth. Again, there are tricompartment osteoarthritic changes with joint narrowing and osteophytes. FL/FL guidance in treatment room IMPRESSION: Fluoroscopy for pain management procedures.
== END 2021-04-03 06:32 | disposition home or self-care (01) ==
LOC: HO.RADIR 06:31
PROVIDERS: Visit Provider Anesthesiology
DX: M17.0 Bilateral primary osteoarthritis of knee (principal)
CPT/HCPCS: 64454

== ENCOUNTER 2021-04-10 06:28 | Outpatient (REF) | payer MEDICAID, SELFPAY ==
--- NOTE | ~2021-04-10 | FL_ITS ---
EXAMINATION: XR FLUOROSCOPY WITH IMAGES CLINICAL INFORMATION: M17.0 - Bilateral primary osteoarthritis of knee COMPARISON: Radiographs knees 12/16/2019 TECHNIQUE: Fluoroscopy performed by Dr. Candido Manzano. Fluoroscopy time: 0.2 minutes DAP: 2.35 Gycm2 Images: 2 FINDINGS: There are spinal needles adjacent to the distal femoral shaft, medial and lateral sides, mid depth. There is a spinal needle adjacent to the proximal tibia on medial side mid depth. There are tricompartment degenerative changes again seen with joint narrowing and osteophytes. FL/FL guidance in treatment room IMPRESSION: Fluoroscopy for pain management procedures.
== END 2021-04-10 06:29 | disposition home or self-care (01) ==
LOC: HO.RADIR 06:28
PROVIDERS: Visit Provider Anesthesiology
DX: M17.0 Bilateral primary osteoarthritis of knee (principal)
CPT/HCPCS: 64454

== ENCOUNTER → 2021-04-11 11:07 | Outpatient (BNVA) | payer MEDICAID, SELFPAY | PROVIDERS: PCP Internal Medicine; Visit Provider Anesthesiology | DX: M17.0 Bilateral primary osteoarthritis of knee (principal); E66.01 Morbid (severe) obesity due to excess calories; Z68.41 Body mass index [BMI] 40.0-44.9, adult | CPT/HCPCS: 99212 ==

== ENCOUNTER 2021-04-17 14:11 | Outpatient (REF) | payer MEDICAID, SELFPAY ==
--- NOTE | ~2021-04-17 | MM_ITS ---
EXAMINATION: MM SCREENING DIGITAL BREAST TOMOSYNTHESIS, BILATERAL CLINICAL INFORMATION: Screening. Asymptomatic. Prior reduction mammoplasty over 14 years ago. The lifetime risk of breast cancer based on the Tyrer-Cuzick Model is 14%. COMPARISON: Mammography: 03/20/2020, 02/18/2019, 02/10/2018 TECHNIQUE: Digital breast tomosynthesis is performed in both the craniocaudal and mediolateral oblique views along with computer-aided detection (CAD). Synthesized 2D images are generated from the tomosynthesis. Additional right cleavage view and exaggerated left CC view are provided. FINDINGS: There are scattered areas of fibroglandular density (ACR BI-RADS breast composition Category b). Parenchymal pattern is similar to prior studies. There are stable post surgical changes consistent with the reduction mammoplasty. There are no significant masses, abnormal calcifications, or other abnormalities. No significant changes. MM/MM tomosynthesis screening BI IMPRESSION: No mammographic evidence of malignancy. ASSESSMENT: BI-RADS 2: Benign RECOMMENDATION: Routine annual mammography screening. This patient's information was entered into a reminder system with a target due date for their next mammogram.
== END 2021-04-17 14:12 | disposition home or self-care (01) ==
LOC: HO.MAMMO 14:11
PROVIDERS: Visit Provider Internal Medicine
DX: Z12.31 Encounter for screening mammogram for malignant neoplasm of breast (principal)
CPT/HCPCS: 77063; 77067

== ENCOUNTER 2021-04-24 06:23 | Outpatient (REF) | payer MEDICAID, SELFPAY ==
--- NOTE | ~2021-04-24 | FL_ITS ---
EXAMINATION: XR FLUOROSCOPY WITH IMAGES CLINICAL INFORMATION: M54.16 - Radiculopathy, lumbar region COMPARISON: Bilateral knee radiographs 12/16/2019 TECHNIQUE: Fluoroscopy performed by Dr. Candido Manzano. Fluoroscopy time: 0.2 minutes DAP: 0.29 Gycm2 Images: 2 FINDINGS: There are spinal needles adjacent to the distal femoral shaft, medial and lateral sides, mid depth. There is a spinal needle adjacent to the proximal tibia on medial side mid depth. There are degenerative changes again seen greatest medial knee joint compartment with joint narrowing and central and peripheral osteophytes. FL/FL guidance in treatment room IMPRESSION: Fluoroscopy for pain management procedures.
== END 2021-04-24 06:24 | disposition home or self-care (01) ==
LOC: HO.RADIR 06:23
PROVIDERS: Visit Provider Anesthesiology
DX: M17.0 Bilateral primary osteoarthritis of knee (principal); E66.01 Morbid (severe) obesity due to excess calories
CPT/HCPCS: 64454; J3300

== ENCOUNTER 2021-05-01 05:57 | Outpatient (REF) | payer MEDICAID, SELFPAY ==
--- NOTE | ~2021-05-01 | FL_ITS ---
EXAMINATION: XR FLUOROSCOPY WITH IMAGES CLINICAL INFORMATION: M17.0 - Bilateral primary osteoarthritis of knee COMPARISON: Fluoroscopic spot views 04/24/2021 TECHNIQUE: Fluoroscopy performed by pain management physician. Fluoroscopy time: 0.3 minutes DAP: 0.756 Gycm2 Images: 1 FINDINGS: There are spinal needles adjacent to the distal femoral shaft at mid depth, likely medial and lateral sides. There is a spinal needle adjacent to the proximal tibia mid depth. Degenerative changes noted similar to prior exam. FL/FL guidance in treatment room IMPRESSION: Fluoroscopy for pain management procedures.
== END 2021-05-01 05:58 | disposition home or self-care (01) ==
LOC: HO.RADIR 05:57
PROVIDERS: Visit Provider Anesthesiology
DX: M17.0 Bilateral primary osteoarthritis of knee (principal); E66.01 Morbid (severe) obesity due to excess calories; E11.22 Type 2 diabetes mellitus with diabetic chronic kidney disease; E11.21 Type 2 diabetes mellitus with diabetic nephropathy; E11.42 Type 2 diabetes mellitus with diabetic polyneuropathy; I12.9 Hypertensive chronic kidney disease with stage 1 through stage 4 chronic kidney disease, or unspecified chronic kidney disease; N18.30 Chronic kidney disease, stage 3 unspecified; E78.5 Hyperlipidemia, unspecified; E55.9 Vitamin D deficiency, unspecified; G47.33 Obstructive sleep apnea (adult) (pediatric); Z68.41 Body mass index [BMI] 40.0-44.9, adult; Z94.81 Bone marrow transplant status; Z82.49 Family history of ischemic heart disease and other diseases of the circulatory system; Z83.3 Family history of diabetes mellitus; Z80.9 Family history of malignant neoplasm, unspecified; Z88.6 Allergy status to analgesic agent; Z88.1 Allergy status to other antibiotic agents; Z88.0 Allergy status to penicillin
CPT/HCPCS: 64447; J3300

== ENCOUNTER → 2021-05-30 13:26 | Outpatient (BNVA) | payer MEDICAID, SELFPAY | PROVIDERS: PCP Internal Medicine; Visit Provider Anesthesiology | DX: M17.0 Bilateral primary osteoarthritis of knee (principal); M19.039 Primary osteoarthritis, unspecified wrist; E66.01 Morbid (severe) obesity due to excess calories; Z68.41 Body mass index [BMI] 40.0-44.9, adult | CPT/HCPCS: 99212 ==

== ENCOUNTER → 2021-06-11 12:33 | Outpatient (BNVA) | payer MEDICAID, SELFPAY | PROVIDERS: PCP Internal Medicine; Referring Provider Internal Medicine; Visit Provider Surgery | DX: K82.8 Other specified diseases of gallbladder (principal) | CPT/HCPCS: 99212 ==

== ENCOUNTER 2021-06-14 09:42 | Outpatient (REF) | payer MEDICAID, SELFPAY ==
--- NOTE | ~2021-06-14 | XR_ITS ---
EXAMINATION: XR KNEE, BILATERAL XR KNEE, RIGHT XR KNEE, LEFT CLINICAL INFORMATION: Bilateral knee pain. COMPARISON: Most recent bilateral knee radiographs dated 12/16/2019. TECHNIQUE: Standing AP view of both knees and lateral and sunrise views of the right and left knee. FINDINGS: Right Knee: Srzzgkug-ut-bbgumd medial compartment joint space narrowing with prominent central osteophytes. More moderate lateral and patellofemoral compartment joint space narrowing. Lateral compartment central osteophytes. Prominent tricompartmental marginal osteophytes. No osseous erosion. No fracture or dislocation. Small joint effusion. Left Knee: Brkwvnps-jn-fjilvl medial compartment joint space narrowing with central osteophytes and subchondral sclerosis. More moderate patellofemoral and lateral compartment joint space narrowing. Large tricompartmental marginal osteophytes. No fracture or dislocation. Small joint effusion. XR/XR knee RT 2V IMPRESSION: RIGHT KNEE: Prominent tricompartmental osteoarthritis, most severe within the medial compartment. Small joint effusion. Findings are not significantly changed when compared to the most recent radiographs. LEFT KNEE: Prominent tricompartmental osteoarthritis, most severe within the medial compartment. Small joint effusion. Findings are not significantly changed when compared to the most recent radiographs.
--- NOTE | ~2021-06-14 | XR_ITS ---
EXAMINATION: XR KNEE, BILATERAL XR KNEE, RIGHT XR KNEE, LEFT CLINICAL INFORMATION: Bilateral knee pain. COMPARISON: Most recent bilateral knee radiographs dated 12/16/2019. TECHNIQUE: Standing AP view of both knees and lateral and sunrise views of the right and left knee. FINDINGS: Right Knee: Iglxyald-jx-misjzr medial compartment joint space narrowing with prominent central osteophytes. More moderate lateral and patellofemoral compartment joint space narrowing. Lateral compartment central osteophytes. Prominent tricompartmental marginal osteophytes. No osseous erosion. No fracture or dislocation. Small joint effusion. Left Knee: Oqihazpu-hz-sfdywv medial compartment joint space narrowing with central osteophytes and subchondral sclerosis. More moderate patellofemoral and lateral compartment joint space narrowing. Large tricompartmental marginal osteophytes. No fracture or dislocation. Small joint effusion. XR/XR knee LT 2V IMPRESSION: RIGHT KNEE: Prominent tricompartmental osteoarthritis, most severe within the medial compartment. Small joint effusion. Findings are not significantly changed when compared to the most recent radiographs. LEFT KNEE: Prominent tricompartmental osteoarthritis, most severe within the medial compartment. Small joint effusion. Findings are not significantly changed when compared to the most recent radiographs.
--- NOTE | ~2021-06-14 | XR_ITS ---
EXAMINATION: XR KNEE, BILATERAL XR KNEE, RIGHT XR KNEE, LEFT CLINICAL INFORMATION: Bilateral knee pain. COMPARISON: Most recent bilateral knee radiographs dated 12/16/2019. TECHNIQUE: Standing AP view of both knees and lateral and sunrise views of the right and left knee. FINDINGS: Right Knee: Fwygwypf-tw-mthyer medial compartment joint space narrowing with prominent central osteophytes. More moderate lateral and patellofemoral compartment joint space narrowing. Lateral compartment central osteophytes. Prominent tricompartmental marginal osteophytes. No osseous erosion. No fracture or dislocation. Small joint effusion. Left Knee: Aebvydys-mj-mtgcfz medial compartment joint space narrowing with central osteophytes and subchondral sclerosis. More moderate patellofemoral and lateral compartment joint space narrowing. Large tricompartmental marginal osteophytes. No fracture or dislocation. Small joint effusion. XR/XR knee standing BI IMPRESSION: RIGHT KNEE: Prominent tricompartmental osteoarthritis, most severe within the medial compartment. Small joint effusion. Findings are not significantly changed when compared to the most recent radiographs. LEFT KNEE: Prominent tricompartmental osteoarthritis, most severe within the medial compartment. Small joint effusion. Findings are not significantly changed when compared to the most recent radiographs.
== END 2021-06-14 09:43 | disposition home or self-care (01) ==
LOC: HO.HOSX 09:42
PROVIDERS: Visit Provider Orthopaedic Surgery
DX: M17.0 Bilateral primary osteoarthritis of knee (principal); E11.40 Type 2 diabetes mellitus with diabetic neuropathy, unspecified
CPT/HCPCS: 73560; 73565; 99212

== ENCOUNTER 2021-07-04 13:57 | Outpatient (REF) | payer MEDICAID, SELFPAY ==
[2021-07-04 14:23] LABS: MANUAL DIFF FLAG NO
[2021-07-04 14:38] LABS: Basophils Percent Auto 0.3 % (0-2); Eosinophils Absolute Auto 0.1 X10*3/uL (0.0-0.4); Eosinophils Percent Auto 1.6 % (0-4); Hematocrit 28.1 % (37.0-47.0); Hemoglobin 8.9 g/dl (12.0-16.0); Imm Gran Abs Auto 0.04 X10*3/uL (0.00-0.03); Imm Gran Pct Auto 0.6 % (0.0-0.4); Lymphocytes Absolute Auto 1.9 X10*3/uL (1.2-4.9); Lymphocytes Percent Auto 28.2 % (20-40); Mean Corpuscular HGB Conc 31.7 g/dl (31.0-35.0); Mean Corpuscular Hemoglobin 27.4 pg (27.0-33.0); Mean Corpuscular Volume 86.5 fL (80.0-98.0); Monocytes Absolute Auto 0.6 X10*3/uL (0.1-1.2); Monocytes Percent Auto 8.4 % (2-11); Neutrophils Absolute Auto 4.1 x10*3/uL (2.0-8.3); Neutrophils Percent Auto 60.9 % (45-73); Platelet Count 268 X10*3/uL (160-400); Red Blood Count 3.25 X10*6/uL (4.20-5.50); White Blood Count 6.8 X10*3/uL (4.8-10.8)
[2021-07-04 14:42] LABS: Appearance Urine CLEAR; Color Urine YELLOW; Glucose Urine UA NEG (NEG); Leukocyte Esterase Urine NEG (NEG); Nitrite Urine NEG (NEG); Specific Gravity - Urine 1.015 (1.005-1.025); Urine Blood 2+ (NEG); Urine Ketones NEG (NEG); Urine Protein NEG (NEG-TRACE)
[2021-07-04 14:56] LABS: Creatinine Urine 93.97 mg/dL; Microalbum/Creatinine Ratio Ur 56.4 ug/mg cr; Protein/Creatinine Ratio, Ur 0.14 (<0.2); Total Protein Urine Random 13 mg/dL (<12)
[2021-07-04 15:00] LABS: Albumin Level 4.3 g/dL (3.5-5.0); Anion Gap 12 (12-20); Blood Urea Nitrogen 24 mg/dL (9-16); Calcium 8.6 mg/dL (8.4-10.2); Carbon Dioxide 26 mmol/L (22-29); Chloride 109 mmol/L (96-108); Estimated Glomerular Filt Rate 40; Iron 58 mcg/dL (30-160); Magnesium 1.8 mg/dL (1.6-2.6); Phosphorus 2.4 mg/dL (2.7-4.5); Potassium 4.5 mmol/L (3.3-5.1); Sodium 142 mmol/L (135-145)
[2021-07-04 15:04] LABS: WBC Urine 0-2 /HPF (0-4)
[2021-07-04 15:05] LABS: Squamous Epithelial Cell Urine 1+ /LPF
[2021-07-04 15:13] LABS: Percent Iron Saturation 26 % (15-50); Total Iron Binding Capacity 220 mcg/dL (228-428); Unsaturated Iron Binding 162 ug/dL
[2021-07-04 15:17] LABS: Vitamin D 25-OH Total 27.8 ng/mL (>30)
[2021-07-05 14:33] LABS: Calcium (PTHI) 8.5 mg/dL (8.6-10.4); PTHI 131 pg/mL (14-64)
== END 2021-07-04 13:58 | disposition home or self-care (01) ==
LOC: HO.LAB 13:57
PROVIDERS: PCP Internal Medicine; Visit Provider Internal Medicine Nephrology
DX: I12.9 Hypertensive chronic kidney disease with stage 1 through stage 4 chronic kidney disease, or unspecified chronic kidney disease (principal); N18.32 Chronic kidney disease, stage 3b; R80.1 Persistent proteinuria, unspecified; E11.22 Type 2 diabetes mellitus with diabetic chronic kidney disease; E11.21 Type 2 diabetes mellitus with diabetic nephropathy
CPT/HCPCS: 36415; 80051; 81001; 82040; 82043; 82306; 82310; 82565; 83540; 83735; 83970; 84100; 84156; 84520; 85025; 87086; 87147; 95250

== ENCOUNTER → 2021-07-11 12:36 | Outpatient (BNVA) | payer MEDICAID, SELFPAY | PROVIDERS: PCP Internal Medicine; Visit Provider Nurse Practitioner Gerontology | DX: E11.21 Type 2 diabetes mellitus with diabetic nephropathy (principal); E11.40 Type 2 diabetes mellitus with diabetic neuropathy, unspecified; I10 Essential (primary) hypertension; E78.5 Hyperlipidemia, unspecified; E66.09 Other obesity due to excess calories; Z68.41 Body mass index [BMI] 40.0-44.9, adult; Z79.84 Long term (current) use of oral hypoglycemic drugs | CPT/HCPCS: 82947; 83036; 99212 ==

== ENCOUNTER 2021-07-13 14:01 | Outpatient (REF) | payer MEDICAID, SELFPAY ==
[2021-07-13 15:06] LABS: Cholesterol 195 mg/dL; HDL Cholesterol 48 mg/dL; LDL Cholesterol Calculated 99 mg/dl; Triglycerides 242 mg/dL
[2021-07-13 16:57] LABS: Creatinine Urine 148.32 mg/dL; Microalbum/Creatinine Ratio Ur 49.8 ug/mg cr
[2021-07-14 16:20] LABS: LDL Cholesterol Direct 97 mg/dL (<100)
== END 2021-07-13 14:02 | disposition home or self-care (01) ==
LOC: HO.LAB 14:01
PROVIDERS: PCP Internal Medicine; Visit Provider Nurse Practitioner Gerontology
DX: E11.21 Type 2 diabetes mellitus with diabetic nephropathy (principal)
CPT/HCPCS: 36415; 80061; 82043; 83721

== ENCOUNTER → 2021-08-07 10:28 | Outpatient (BNVA) | payer MEDICAID, SELFPAY | PROVIDERS: PCP Internal Medicine; Referring Provider Internal Medicine; Visit Provider Nurse Practitioner | DX: K21.9 Gastro-esophageal reflux disease without esophagitis (principal); R14.0 Abdominal distension (gaseous); K81.9 Cholecystitis, unspecified; D64.9 Anemia, unspecified; L65.9 Nonscarring hair loss, unspecified; E66.01 Morbid (severe) obesity due to excess calories; Z68.41 Body mass index [BMI] 40.0-44.9, adult | CPT/HCPCS: 99212 ==

== ENCOUNTER → 2021-08-08 09:58 | Outpatient (BNVA) | payer MEDICAID, SELFPAY | PROVIDERS: PCP Internal Medicine; Visit Provider Orthopaedic Surgery | DX: E11.21 Type 2 diabetes mellitus with diabetic nephropathy (principal) | CPT/HCPCS: 97802 ==

== ENCOUNTER 2021-08-16 10:17 | Outpatient (REF) | payer MEDICAID, SELFPAY ==
--- NOTE | 2021-08-16 10:23 | ECG_ITS ---
Test Reason : Z01.810 PREOP Blood Pressure : / mmHG Vent. Rate : 065 BPM Atrial Rate : 065 BPM P-R Int : 128 ms QRS Dur : 116 ms QT Int : 420 ms P-R-T Axes : 025 -47 027 degrees QTc Int : 436 ms Normal sinus rhythm Left anterior fascicular block Left ventricular hypertrophy with QRS widening ( R in aVL , [place] product ) Abnormal ECG When compared with ECG of 14-NOV-2020 10:13, No significant change was found Referred By: Tello Grigsby Electronically Signed By:Natanael Montano
[2021-08-16 11:48] LABS: Alanine Aminotransferase 16 U/L (0-31); Albumin Level 4.2 g/dL (3.5-5.0); Alkaline Phosphatase 83 U/L (39-117); Anion Gap 15 (12-20); Aspartate Amino Transferase 12 U/L (5-31); Bilirubin Total 0.4 mg/dL (0.0-1.0); Blood Urea Nitrogen 22 mg/dL (9-16); Calcium 8.7 mg/dL (8.4-10.2); Carbon Dioxide 24 mmol/L (22-29); Chloride 108 mmol/L (96-108); Estimated Glomerular Filt Rate 37; Glucose Random 122 mg/dL (60-115); Potassium 4.8 mmol/L (3.3-5.1); Sodium 142 mmol/L (135-145)
[2021-08-16 12:11] LABS: TSH reflex Free T4 1.39 uIU/mL (0.32-4.0)
== END 2021-08-16 10:18 | disposition home or self-care (01) ==
LOC: HO.LAB 10:17
PROVIDERS: Absent Provider Orthopaedic Surgery; PCP Internal Medicine; Visit Provider Nurse Practitioner
DX: Z01.810 Encounter for preprocedural cardiovascular examination (principal); R10.9 Unspecified abdominal pain; L65.9 Nonscarring hair loss, unspecified
CPT/HCPCS: 36415; 80053; 84443; 93005

== ENCOUNTER 2021-09-11 | Outpatient (REF) | payer MEDICAID, SELFPAY ==
[2021-08-28 11:53] VITALS: BP 119/61; PULSE 74; RESP 20; O2SAT 96; BMI 43.5
[2021-08-28 12:33] LABS: MANUAL DIFF FLAG NO
[2021-08-28 13:08] LABS: Basophils Percent Auto 0.3 % (0-2); Eosinophils Absolute Auto 0.1 X10*3/uL (0.0-0.4); Eosinophils Percent Auto 1.4 % (0-4); Hematocrit 27.4 % (37.0-47.0); Hemoglobin 8.5 g/dl (12.0-16.0); Imm Gran Abs Auto 0.08 X10*3/uL (0.00-0.03); Imm Gran Pct Auto 1.2 % (0.0-0.4); Lymphocytes Absolute Auto 1.8 X10*3/uL (1.2-4.9); Lymphocytes Percent Auto 28.2 % (20-40); Mean Corpuscular Hemoglobin 27.2 pg (27.0-33.0); Mean Corpuscular Volume 87.8 fL (80.0-98.0); Mean Platelet Volume 9.5 fL (9.4-12.3); Monocytes Absolute Auto 0.4 X10*3/uL (0.1-1.2); Monocytes Percent Auto 6.4 % (2-11); Neutrophils Percent Auto 62.5 % (45-73); Platelet Count 241 X10*3/uL (160-400); Red Blood Count 3.12 X10*6/uL (4.20-5.50); Red Cell Distribution Width 14.8 % (11.0-16.0); White Blood Count 6.4 X10*3/uL (4.8-10.8)
[2021-08-28 13:29] LABS: Anion Gap 15 (12-20); Blood Urea Nitrogen 30 mg/dL (9-16); Carbon Dioxide 23 mmol/L (22-29); Chloride 107 mmol/L (96-108); Estimated Glomerular Filt Rate 37; Potassium 4.6 mmol/L (3.3-5.1); Sodium 140 mmol/L (135-145)
[2021-08-28 14:57] LABS: MRSA Nasal PCR NEGATIVE (Negative); SA Nasal PCR POSITIVE (Negative)
== END 2021-09-11 00:01 ==
LOC: HO.PAT
PROVIDERS: Physician Assistant; PCP Internal Medicine; Visit Provider Orthopaedic Surgery
DX: Z01.818 Encounter for other preprocedural examination (principal); M17.12 Unilateral primary osteoarthritis, left knee
CPT/HCPCS: 36415; 80051; 82565; 84520; 85025; 86850; 86900; 86901; 87640; 87641

== ENCOUNTER 2021-10-06 14:57 | Observation (INO) | payer MEDICAID, SELFPAY ==
--- NOTE | ~2021-10-06 | CT_ITS ---
EXAMINATION: CT ABDOMEN AND PELVIS WITHOUT CONTRAST CLINICAL INFORMATION: Right lower quadrant pain with question of appendicitis COMPARISON: CT abdomen pelvis 02/17/2021 TECHNIQUE: Multidetector volumetric imaging was performed from the superior aspect of the liver through the pubic symphysis. Sagittal and coronal reformatted images were obtained on the technologist's workstation. This CT examination was performed using dose optimization techniques as appropriate, variously including the following: *Automated exposure control *Adjustment of mA and/or kV according to patient size (this includes techniques or standardized protocols for targeted exams where dose is matched to indication/reason for exam; i.e. extremities or head) *Use of iterative reconstruction technique DLP: 888 mGy-cm FINDINGS: LUNG BASES: The visualized lung bases are unremarkable. LIVER, GALLBLADDER, AND BILIARY TREE: The liver is markedly enlarged measuring 23.2 cm in greatest cephalocaudad dimension and demonstrates heterogeneous decreased attenuation consistent with hepatic steatosis with areas of focal fatty sparing. No focal hepatic lesion or biliary ductal dilatation is present. The gallbladder contains very subtle layering high density material. This could be dense bilateral including nonradiopaque gallstones. However there is no wall thickening or obvious pericholecystic inflammatory changes. PANCREAS: Unremarkable. SPLEEN: Unremarkable. ADRENAL GLANDS: Unremarkable. KIDNEYS AND URETERS: The kidneys are normal in size, shape, and attenuation. There is a right upper pole 1.9 cm Bosniak class I cyst which needs no further imaging or follow-up. There is a nonobstructing 3 mm calculus in the left mid kidney. This measures 412 Hounsfield units and is 10.7 cm from the posterior axillary line.. No hydronephrosis, hydroureter, or right-sided calculi seen. No perinephric stranding. BLADDER: Unremarkable. GASTROINTESTINAL TRACT: The small and large bowel are unremarkable. The appendix is unremarkable. ABDOMINAL WALL: No significant hernia is appreciated. LYMPH NODES: No retroperitoneal lymphadenopathy. VASCULAR: Calcific aorto iliac plaque is present without aneurysm. PELVIC VISCERA: Surgically removed OSSEOUS STRUCTURES: Mild degenerative changes present at L5-S1. CT/CT abdomen pelvis wo con IMPRESSION: 1. The appendix is normal. 2. Cause for the patient's acute right lower quadrant pain has not found. 3. An enlarged fatty liver is present. 4. Incidental note made of a nonobstructing 3 mm left renal calculus. Fleischner guidelines were followed.
[2021-10-06 15:09] VITALS: BP 127/77; PULSE 74; RESP 24; TEMP 36.8; O2SAT 98; BMI 42.0
--- NOTE | 2021-10-06 18:44 | ED.ABDPAIN ---
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 Travelled from [place] 2 days ago, patient admitted to eating salad 2 days ago then started with a nonbloody watery diarrhea. Has upper abdominal/epigastric pain but also pain is less severe in the whole abdomen, describe it as a dull aching pain that has been constant and severe 02/11, no nausea, no vomiting but associated with nonbloody watery diarrhea, patient's symptoms was triggered by eating a salad in [place], otherwise patient decline using antibiotic recently or exposed to a sick contact. Patient feels hungry with good appetite but afraid to eat because the severe diarrhea. No urinary frequency, no dysuria. Surgical history of hysterectomy. Related Data Home Medications Medication Instructions Recorded Confirmed albuterol 90 mcg/actuation aerosol 90 mcg INHALATION DAILY 02/15/20 08/27/21 inhaler citalopram 40 mg tablet 40 mg PO DAILY 02/15/20 08/27/21 fluticasone propionate 110 2 puff INHALATION BID 02/15/20 08/27/21 mcg/actuation HFA aerosol inhaler (Flovent HFA) ruxolitinib 5 mg tablet (Jakafi) 5 mg PO BID 02/15/20 08/27/21 sennosides 8.6 mg capsule (senna) 8.6 mg PO BEDTIME 02/15/20 08/27/21 cholecalciferol (vitamin D3) 25 25 mcg PO DAILY 02/16/20 08/27/21 mcg (1,000 unit) capsule acetaminophen 500 mg tablet 500 mg PO Q6H PRN 07/10/20 08/27/21 (Tylenol Extra Strength) tramadol 50 mg tablet 50 mg PO Q8H PRN 07/10/20 08/27/21 allopurinol 100 mg tablet 100 mg PO DAILY 11/28/20 08/27/21 mirtazapine 15 mg tablet 15 mg PO BEDTIME 11/28/20 08/27/21 tolterodine 4 mg capsule,extended 4 mg PO BEDTIME cap 11/28/20 08/27/21 release 24 hr (Detrol LA) Previous Rx's Medication Instructions Recorded folic acid 1 mg tablet 1 mg PO DAILY #90 tab 07/25/20 amlodipine 10 mg tablet 10 mg PO DAILY 90 Days #90 tab 08/23/20 lisinopril 5 mg tablet 5 mg PO DAILY 90 Days #90 tab 09/18/20 atorvastatin 40 mg tablet 40 mg PO BEDTIME 90 Days #90 tab 09/19/20 albuterol sulfate 2.5 mg (3 mL) INHALATION Q4-6H PRN 11/14/20 #75 ml vhyrju-czduvmyr-mwuuhor 1 cap PO .QIDAC 30 Days #120 cap 01/12/21 24,000-76,000-120,000 unit capsule,delayed rel (Creon) simethicone 180 mg capsule 180 mg PO QID #120 cap 01/12/21 metformin 500 mg tablet 500 mg PO BID 90 Days #180 tab 06/11/21 sitagliptin 50 mg tablet (Januvia) 50 mg PO DAILY 90 Days #90 tab 06/11/21 canagliflozin 100 mg tablet 100 mg PO DAILY 90 Days #90 tab 07/11/21 (Invokana) dicyclomine 20 mg tablet 20 mg PO QID 30 Days #120 tab 08/07/21 famotidine 40 mg tablet (Pepcid) 40 mg PO BEDTIME 30 Days #30 tab 08/07/21 ferrous sulfate 325 mg (65 mg 325 mg PO DAILY #30 tab 08/07/21 iron) tablet pantoprazole 40 mg tablet,delayed 40 mg PO QAM 30 Days #30 tab 08/07/21 release (Protonix) Allergies Allergy/AdvReac Type Severity Reaction Status Date / Time aspirin [ASPIRIN] Allergy Intermediate SWELLING/ITCHING, Verified 08/07/21 10:57 rash Penicillins Allergy Intermediate ITCHING Verified 08/07/21 10:57 vancomycin [VANCOMYCIN] AdvReac Intermediate RED MAN Verified 08/27/21 10:23 SYNDROME PER MD Review of Systems Review of Systems All other systems are reviewed and are negative Constitutional: Reports as per HPI and Reports no additional constitutional complaints Eyes: Reports as per HPI and Reports no additional eye complaints Reports system reviewed and no additional complaints, except as documented Cardiovascular: Reports as per HPI and Reports no additional cardiovascular complaints Respiratory: Reports as per HPI and Reports no additional respiratory complaints Gastrointestinal: Reports as per HPI and Reports no additional gastrointestinal complaints Genitourinary: Reports no additional female genitourinary complaints Musculoskeletal: Reports no additional musculoskeletal complaints Skin/Breast: Reports system reviewed and no additional complaints, except as docu Psychiatric: Reports no additional psychiatric complaints Endocrine: Reports no additional endocrine complaints Hematologic/Lymphatic: Reports no additional hematologic/lymphatic complaints Allergic/Immunologic: Reports no additional allergic/immunologic complaints Reports system reviewed and no additional complaints, except as documented and Reports Abnormal speech present. [facility] Past Medical History Medical History Anemia Asthma Biliary dyskinesia Chronic myeloproliferative disease CKD stage 3 due to type 2 diabetes mellitus COVID-19 vaccine series completed Diabetes type 2, controlled Diabetic nephropathy Diabetic neuropathy associated with type 2 diabetes mellitus Dyslipidemia GERD (gastroesophageal reflux disease) Hiatal hernia History of depression History of gastritis History of myelofibrosis Hypertension Migraines Morbid obesity due to excess calories Obesity due to excess calories BERNIE (obstructive sleep apnea) Osteoarthritis of knees, bilateral Osteoarthritis of wrist Upper abdominal pain Vitamin B12 deficiency Surgical History (Updated 08/27/21 @ 10:22 by Mary Ellen Mueller RN) Bone marrow replaced by transplant H/O stem cell transplant History of partial hysterectomy History of resection of meningioma Hx of breast reduction, elective Hx of colonoscopy Hx of esophagogastroduodenoscopy Family History Family History Father Heart problem HTN (hypertension) Mother Diabetes Family/Other Diabetes HTN (hypertension) Heart problem Sister Cancer Social History Social History Household Members: None Housing: Apartment Are you a primary critical care technician to a significant other at home: No Do you presently have visiting nurse or other home services: Yes (EMERGENCY ROOM PHYSICIAN-daughter Indu) Alcohol intake: never Patient Tobacco Use Status: Never used Tobacco Advance Directives: Yes Advance Directives on File: Yes Advance Directives Date on File: 03/24/16 service: No Current occupational status: disabled Physical Exam ED Vital Signs: Vital Signs - 24 hr 10/06/21 15:09 10/06/21 19:24 Temperature 98.2 F 98.7 F Pulse Rate 74 70 Respiratory Rate 24 H 16 Blood Pressure 127/77 111/68 Pulse Oximetry 98 98 BMI result Body Mass Index 42.0 Vital signs have been reviewed as appeared to be correct. Blood pressure normal. Heart rate normal. Respiration rate normal. Temperature normal. Oxygen saturation normal. Appearance: Alert. Oriented X3. No acute distress. Head: Normal external exam. Normocephalic. Atraumatic. No Hickman signs noted. No raccoon eyes noted Eyes: PERRLA. EOMI. Conjunctiva and sclera normal. Eyelids normal. ENT: TM's Normal. Pharynx normal. Uvula midline. Dry mucous membranes. No trismus noted. No drooling noted. No muffled voice noted. Neck: Normal inspection. Neck supple. FROM. No adenopathy. Thyroid Normal. No meningeal signs. No neck mass noted. CVS: Normal heart rate and rhythm. Heart sound normal. No murmurs noted. Pulses normal throughout. Respiratory: No respiratory distress. Painless inspiration. Breath sounds normal. No wheezes/rales/rhonchi noted. Chest nontender. No accessory muscle usage noted or decreased air movement noted. Abdomen: Soft, obese, mild epigastric tenderness with no rebound tenderness, no guarding. Bowel sounds normal in all 4 quadrants. No distention noted. No organomegaly noted. No visible injury noted. Back: No CVA tenderness. Full range of motion noted. Skin: Skin warm and dry. Normal skin color. Normal skin turgor. No rashes/lesions/lacerations noted. Extremities: No lower extremity edema. Extremities exhibit normal range of motion. Extremities nontender. Neuro: Oriented X 3. Cranial nerve exam: II-XII are grossly intact No motor deficit. No sensory deficit. Reflexes normal. Course Course Course Narrative: 56-year-old female came in for evaluation of constant diarrhea for the past 2 days with decreased p.o. intake, physical exam is consistent with dehydration, labs showed acute renal injury despite IV hydration. Will admit the patient for further IV hydration and monitoring kidney function. MDM - Abdominal Pain Lab Data Attestation: I reviewed the patient's lab results. Result diagrams: 10/06/21 19:11 10/06/21 23:12 Labs: Lab Results 10/06/21 10/06/21 10/06/21 Range/Units 19:11 19:11 19:11 WBC 8.2 (4.8-10.8) X10*3/uL RBC 3.36 L (4.20-5.50) X10*6/uL Hgb 9.3 L (12.0-16.0) g/dl Hct 27.9 L (37.0-47.0) % MCV 83.0 (80.0-98.0) fL MCH 27.7 (27.0-33.0) pg MCHC 33.3 (31.0-35.0) g/dl RDW 14.6 (11.0-16.0) % Plt Count 283 (160-400) X10*3/uL MPV 8.9 L (9.4-12.3) fL Immature Gran % (Auto) 0.4 (0.0-0.4) % Neut % (Auto) 62.0 (45-73) % Lymph % (Auto) 28.9 (20-40) % [place] % (Auto) 7.4 (2-11) % Eos % (Auto) 1.2 (0-4) % Baso % (Auto) 0.1 (0-2) % Lymph # (Auto) 2.4 (1.2-4.9) X10*3/uL [place] # (Auto) 0.6 (0.1-1.2) X10*3/uL Eos # (Auto) 0.1 (0.0-0.4) X10*3/uL Baso # (Auto) 0.0 (0.0-0.2) X10*3/uL Abs Immat Gran (auto) 0.03 (0.00-0.03) X10*3/uL Absolute Neuts (auto) 5.1 (2.0-8.3) x10*3/uL Absolute Nucleated RBC 0.000 (0.0-0.012) X10*3/uL Nucleated RBC % (auto) 0.0 (0.0-0.2) /100WBC Sodium 139 (135-145) mmol/L Potassium 4.4 (3.3-5.1) mmol/L Chloride 108 (96-108) mmol/L Carbon Dioxide 16 L (22-29) mmol/L Anion Gap 19 (12-20) BUN 33 H (9-16) mg/dL Creatinine 2.07 H (0.5-1.4) mg/dL Estim Creat Clear Calc 40.0 Estimated GFR 25 Random Glucose 97 (60-115) mg/dL Calcium 9.1 (8.4-10.2) mg/dL Total Bilirubin 0.3 (0.0-1.0) mg/dL Direct Bilirubin 0.2 (0.0-0.5) mg/dL AST 26 D (5-31) U/L ALT 25 (0-31) U/L Alkaline Phosphatase 95 (39-117) U/L Troponin I High Sens 9.9 (<3.5-17.0) ng/L Total Protein 7.4 (6.5-8.0) g/dL Albumin 4.4 (3.5-5.0) g/dL Lipase 50 (8-78) U/L Urine Color Urine Appearance Urine pH (5.0-8.0) Ur Specific [place] (1.005-1.025) Urine Protein (NEG-TRACE) MG/DL Urine Glucose (UA) (NEG) MG/DL Urine Ketones (NEG) MG/DL Urine Blood (NEG) Urine Nitrite (NEG) Ur Leukocyte Esterase (NEG) Urine RBC (0) /HPF Urine WBC (0-4) /HPF Ur Squamous Epith Cells /LPF Urine Bacteria /LPF Urine Mucus /LPF Urine Test (NEGATIVE) 10/06/21 10/06/21 10/06/21 Range/Units 19:11 19:11 23:12 WBC (4.8-10.8) X10*3/uL RBC (4.20-5.50) X10*6/uL Hgb (12.0-16.0) g/dl Hct (37.0-47.0) % MCV (80.0-98.0) fL MCH (27.0-33.0) pg MCHC (31.0-35.0) g/dl RDW (11.0-16.0) % Plt Count (160-400) X10*3/uL MPV (9.4-12.3) fL Immature Gran % (Auto) (0.0-0.4) % Neut % (Auto) (45-73) % Lymph % (Auto) (20-40) % [place] % (Auto) (2-11) % Eos % (Auto) (0-4) % Baso % (Auto) (0-2) % Lymph # (Auto) (1.2-4.9) X10*3/uL [place] # (Auto) (0.1-1.2) X10*3/uL Eos # (Auto) (0.0-0.4) X10*3/uL Baso # (Auto) (0.0-0.2) X10*3/uL Abs Immat Gran (auto) (0.00-0.03) X10*3/uL Absolute Neuts (auto) (2.0-8.3) x10*3/uL Absolute Nucleated RBC (0.0-0.012) X10*3/uL Nucleated RBC % (auto) (0.0-0.2) /100WBC Sodium 139 (135-145) mmol/L Potassium 4.7 (3.3-5.1) mmol/L Chloride 110 H (96-108) mmol/L Carbon Dioxide 18 L (22-29) mmol/L Anion Gap 16 (12-20) BUN 33 H (9-16) mg/dL Creatinine 2.14 H (0.5-1.4) mg/dL Estim Creat Clear Calc 38.7 Estimated GFR 24 Random Glucose 88 (60-115) mg/dL Calcium 8.7 (8.4-10.2) mg/dL Total Bilirubin (0.0-1.0) mg/dL Direct Bilirubin (0.0-0.5) mg/dL AST (5-31) U/L ALT (0-31) U/L Alkaline Phosphatase (39-117) U/L Troponin I High Sens (<3.5-17.0) ng/L Total Protein (6.5-8.0) g/dL Albumin (3.5-5.0) g/dL Lipase (8-78) U/L Urine Color DK YELLOW Urine Appearance HAZY Urine pH 5.5 (5.0-8.0) Ur Specific [place] 1.020 (1.005-1.025) Urine Protein NEG (NEG-TRACE) MG/DL Urine Glucose (UA) NEG (NEG) MG/DL Urine Ketones NEG (NEG) MG/DL Urine Blood 1+ H (NEG) Urine Nitrite NEG (NEG) Ur Leukocyte Esterase 1+ H (NEG) Urine RBC 1-4 (0) /HPF Urine WBC 5-9 H (0-4) /HPF Ur Squamous Epith Cells 3+ /LPF Urine Bacteria 3+ /LPF Urine Mucus 2+ /LPF Urine Test NEGATIVE (NEGATIVE) Imaging Data Abdomen and pelvis CT.: Attestation: I personally reviewed and interpreted this imaging study as follows: Radiologist's impression: 1.? The appendix is normal. 2.? Cause for the patient's acute right lower quadrant pain has not found. 3.? An enlarged fatty liver is present. 4.? Incidental note made of a nonobstructing 3 mm left renal calculus. ? Discharge Plan Discharge Clinical Impression: Gastritis, Diarrhea, Acute dehydration, Acute kidney injury Patient Disposition: Admitted As Inpatient Prescriptions: No Action amlodipine 10 mg tablet 10 mg PO DAILY 90 Days Qty: 90 1RF lisinopril 5 mg tablet 5 mg PO DAILY 90 Days Qty: 90 1RF atorvastatin 40 mg tablet 40 mg PO BEDTIME 90 Days Qty: 90 1RF Januvia 50 mg tablet 50 mg PO DAILY 90 Days Qty: 90 2RF Rx Instructions: Dose reduced based on GFR metformin 500 mg tablet 500 mg PO BID 90 Days Qty: 180 1RF folic acid 1 mg Tablet 1 mg PO DAILY Qty: 90 3RF albuterol sulfate 2.5 mg /3 mL (0.083 %) solution for nebulization 2.5 mg inhalation Q4-6H PRN (Reason: shortness of breath or wheezing) Qty: 75 0RF citalopram 40 mg Tablet 40 mg PO DAILY 0RF albuterol 90 mcg/actuation Aerosol 90 mcg INHALATION DAILY 0RF Flovent HFA 110 mcg/actuation Hfa Aerosol Inhaler 2 puff INHALATION BID 0RF senna 8.6 mg Capsule 8.6 mg PO BEDTIME 0RF Jakafi 5 mg Tablet 5 mg PO BID 0RF tramadol 50 mg tablet 50 mg PO Q8H PRN (Reason: Pain) 0RF acetaminophen [Tylenol Extra Strength] 500 mg tablet 500 mg PO Q6H PRN (Reason: Pain) 0RF cholecalciferol (vitamin D3) 25 mcg (1,000 unit) capsule 25 mcg PO DAILY 0RF allopurinol 100 mg tablet 100 mg PO DAILY 0RF tolterodine [Detrol LA] 4 mg capsule,extended release 24hr 4 mg PO BEDTIME 0RF mirtazapine 15 mg tablet 15 mg PO BEDTIME 0RF Creon 24,000-76,000 -120,000 unit capsule,delayed release(DR/EC) 1 cap PO .QIDAC 30 Days Qty: 120 6RF Rx Instructions: administer with meals and/or snacks simethicone 180 mg capsule 180 mg PO QID Qty: 120 6RF Invokana 100 mg tablet 100 mg PO DAILY 90 Days Qty: 90 2RF pantoprazole [Protonix] 40 mg tablet,delayed release (DR/EC) 40 mg PO QAM 30 Days Qty: 30 6RF dicyclomine 20 mg tablet 20 mg PO QID 30 Days Qty: 120 6RF famotidine [Pepcid] 40 mg tablet 40 mg PO BEDTIME 30 Days Qty: 30 6RF ferrous sulfate 325 mg (65 mg iron) tablet 325 mg PO DAILY Qty: 30 6RF
[2021-10-06 19:17] LABS: MANUAL DIFF FLAG NO
[2021-10-06] MEDS: Loperamide HCl 2 MG CAPSULE PO (19:18)
[2021-10-06] MEDS: Magnesium Hydrox/Alum Hydrox 30 ML ORAL.SUSP PO (19:18)
[2021-10-06] MEDS: Famotidine/PF 20 MG/2 ML VIAL IVPUSH (19:19)
[2021-10-06 19:22] LABS: Basophils Percent Auto 0.1 % (0-2); Eosinophils Absolute Auto 0.1 X10*3/uL (0.0-0.4); Eosinophils Percent Auto 1.2 % (0-4); Hematocrit 27.9 % (37.0-47.0); Hemoglobin 9.3 g/dl (12.0-16.0); Imm Gran Abs Auto 0.03 X10*3/uL (0.00-0.03); Imm Gran Pct Auto 0.4 % (0.0-0.4); Lymphocytes Absolute Auto 2.4 X10*3/uL (1.2-4.9); Lymphocytes Percent Auto 28.9 % (20-40); Mean Corpuscular HGB Conc 33.3 g/dl (31.0-35.0); Mean Corpuscular Hemoglobin 27.7 pg (27.0-33.0); Mean Platelet Volume 8.9 fL (9.4-12.3); Monocytes Absolute Auto 0.6 X10*3/uL (0.1-1.2); Monocytes Percent Auto 7.4 % (2-11); Neutrophils Absolute Auto 5.1 x10*3/uL (2.0-8.3); Platelet Count 283 X10*3/uL (160-400); Red Blood Count 3.36 X10*6/uL (4.20-5.50); Red Cell Distribution Width 14.6 % (11.0-16.0); White Blood Count 8.2 X10*3/uL (4.8-10.8)
[2021-10-06 19:23] LABS: Appearance Urine HAZY; Color Urine DK YELLOW; Glucose Urine UA NEG (NEG); Leukocyte Esterase Urine 1+ (NEG); Nitrite Urine NEG (NEG); PH 5.5 (5.0-8.0); UACC Culture Trigger YES; Urine Blood 1+ (NEG); Urine Ketones NEG (NEG); Urine Protein NEG (NEG-TRACE)
[2021-10-06 19:24] VITALS: BP 111/68; PULSE 70; RESP 16; TEMP 37.1; O2SAT 98
[2021-10-06 19:26] LABS: UPreg QC Valid YES; Urine Pregnancy NEGATIVE (NEGATIVE)
[2021-10-06 19:47] LABS: Bacteria Urine 3+ /LPF; Mucus Urine 2+ /LPF; Squamous Epithelial Cell Urine 3+ /LPF
[2021-10-06 20:00] LABS: Troponin-I High Sensitivity 9.9 ng/L (<3.5-17.0)
[2021-10-06 20:01] LABS: Alanine Aminotransferase 25 U/L (0-31); Albumin Level 4.4 g/dL (3.5-5.0); Alkaline Phosphatase 95 U/L (39-117); Anion Gap 19 (12-20); Aspartate Amino Transferase 26 U/L (5-31); Bilirubin Direct 0.2 mg/dL (0.0-0.5); Bilirubin Total 0.3 mg/dL (0.0-1.0); Blood Urea Nitrogen 33 mg/dL (9-16); Calcium 9.1 mg/dL (8.4-10.2); Carbon Dioxide 16 mmol/L (22-29); Chloride 108 mmol/L (96-108); Estimated Glomerular Filt Rate 25; Glucose Random 97 mg/dL (60-115); Lipase 50 U/L (8-78); Potassium 4.4 mmol/L (3.3-5.1); Sodium 139 mmol/L (135-145); Total Protein 7.4 g/dL (6.5-8.0)
[2021-10-06] MEDS: 0.9 % Sodium Chloride 1,000 ML 999 ML IV (22:07)
[2021-10-06 23:41] LABS: Anion Gap 16 (12-20); Blood Urea Nitrogen 33 mg/dL (9-16); Calcium 8.7 mg/dL (8.4-10.2); Carbon Dioxide 18 mmol/L (22-29); Chloride 110 mmol/L (96-108); Creatinine Clr Calc Pharmacy 38.7; Estimated Glomerular Filt Rate 24; Glucose Random 88 mg/dL (60-115); Potassium 4.7 mmol/L (3.3-5.1); Sodium 139 mmol/L (135-145)
[2021-10-07 00:36] VITALS: BP 100/52; PULSE 71; RESP 16; TEMP 36.8; O2SAT 97
--- NOTE | 2021-10-07 00:36 | P.HPHOSP_ITS ---
History of Present Illness Date of Service: 10/07/21 Chief Complaint: Abdominal pain and diarrhea This is a 56-year-old female with past medical history of BERNIE, GERD, anemia, morbid obesity, osteoarthritis, chronic mild low proliferative disease, CKD stage 3, diabetes, HTN, HLD who presents to the hospital with complaints of abdominal pain as well as diarrhea. Patient reports her symptoms started 2 days prior to presentation. Pain is localized to the epigastric region, nonradiating, 8/10, no alleviating or exacerbating factors. She has had more than 10 episodes of diarrhea prior to presenting to the hospital. Patient reports nausea with no vomiting. No fever or chills, no alleviating or exacerbating factors. No recent travel. Patient denies any urinary symptoms and no lower extremity edema. She also reports low oral intake and has not eaten for 3 days. On arrival to the ED patient hemodynamically stable no significant abnormal vitals Labs are significant for WBC count of 8.2, hemoglobin of 9.3, hematocrit of 27.9, creatinine of 2.07 with a baseline of around 1.4, BUN of 33, UA positive for leukocyte Estrace and WBC. Patient will be admitted for further management Review of Systems Review of Systems: Yes all other systems are reviewed and are negative [facility] Medical History Anemia Asthma Biliary dyskinesia Chronic myeloproliferative disease CKD stage 3 due to type 2 diabetes mellitus COVID-19 vaccine series completed Diabetes type 2, controlled Diabetic nephropathy Diabetic neuropathy associated with type 2 diabetes mellitus Dyslipidemia GERD (gastroesophageal reflux disease) Hiatal hernia History of depression History of gastritis History of myelofibrosis Hypertension Migraines Morbid obesity due to excess calories Obesity due to excess calories BERNIE (obstructive sleep apnea) Osteoarthritis of knees, bilateral Osteoarthritis of wrist Upper abdominal pain Vitamin B12 deficiency Family History Father Heart problem HTN (hypertension) Mother Diabetes Family/Other Diabetes HTN (hypertension) Heart problem Sister Cancer Surgical History Bone marrow replaced by transplant H/O stem cell transplant History of partial hysterectomy History of resection of meningioma Hx of breast reduction, elective Hx of colonoscopy Hx of esophagogastroduodenoscopy Social History Household Members: None Housing: Apartment Are you a primary physician locums urgent care to a significant other at home: No Do you presently have visiting nurse or other home services: Yes ([employer] OFFICER-daughter Indu) Alcohol intake: never Patient Tobacco Use Status: Never used Tobacco Advance Directives: Yes Advance Directives on File: Yes Advance Directives Date on File: 03/24/16 service: No Current occupational status: disabled Meds Allergies Allergy/AdvReac Type Severity Reaction Status Date / Time aspirin [ASPIRIN] Allergy Intermediate SWELLING/ITCHING, Verified 08/07/21 10:57 rash Penicillins Allergy Intermediate ITCHING Verified 08/07/21 10:57 vancomycin [VANCOMYCIN] AdvReac Intermediate RED MAN Verified 08/27/21 10:23 SYNDROME PER MD Active Medications: Current Medications Acetaminophen (Acetaminophen 325 Mg Tablet) 650 mg PO Q6H PRN PRN Reason: Pain, Mild (Pain Scale 1-3) Lactated Ringer's (Lr) 1,000 mls @ 100 mls/hr IVCONT .Q10H SOBEIDA Ondansetron HCl (Ondansetron Hcl 4 Mg/2 Ml Vial) 4 mg IVPUSH Q8H PRN PRN Reason: Nausea and Vomiting Sodium Chloride (0.9 % Sodium Chloride Flush 3 Ml Syringe) 3 ml IVFLUSH QSHIFT [facility] Home Medications Medication Instructions Recorded Confirmed Last Taken Type albuterol 90 mcg/actuation aerosol 90 mcg INHALATION DAILY 02/15/20 08/27/21 Unknown History inhaler citalopram 40 mg tablet 40 mg PO DAILY 02/15/20 08/27/21 Unknown History fluticasone propionate 110 2 puff INHALATION BID 02/15/20 08/27/21 Unknown History mcg/actuation HFA aerosol inhaler (Flovent HFA) ruxolitinib 5 mg tablet (Jakafi) 5 mg PO BID 02/15/20 08/27/21 Unknown History sennosides 8.6 mg capsule (senna) 8.6 mg PO BEDTIME 02/15/20 08/27/21 Unknown History cholecalciferol (vitamin D3) 25 25 mcg PO DAILY 02/16/20 08/27/21 Unknown History mcg (1,000 unit) capsule acetaminophen 500 mg tablet 500 mg PO Q6H PRN 07/10/20 08/27/21 Unknown History (Tylenol Extra Strength) tramadol 50 mg tablet 50 mg PO Q8H PRN 07/10/20 08/27/21 Unknown History allopurinol 100 mg tablet 100 mg PO DAILY 11/28/20 08/27/21 Unknown History mirtazapine 15 mg tablet 15 mg PO BEDTIME 11/28/20 08/27/21 Unknown History tolterodine 4 mg capsule,extended 4 mg PO BEDTIME cap 11/28/20 08/27/21 Unknown History release 24 hr (Detrol LA) Physical Exam Vital Signs and Narrative: Vital Signs: Last Vital Signs Temp 98.7 F 10/06/21 19:24 Pulse 70 10/06/21 19:24 Resp 16 10/06/21 19:24 BP 111/68 10/06/21 19:24 Pulse Ox 98 10/06/21 19:24 BMI result Body Mass Index 42.0 Const: General: cooperative and no acute distress Orientation/consciousness: patient oriented x3 Eyes: General: appearance normal, both eyes and all related structures Pupils: Equal, round and reactive pupils present Resp: Effort & Inspection: normal respiratory effort Auscultation: clear to auscultation bilaterally Cardio: Rate: regular rate Rhythm: regular rhythm GI: Other: Abdomen is nontender, no rebound or guarding Palpation (GI): Soft to palpation Auscultation: normal bowel sounds Skin: General skin exam: no rashes or lesions noted Neuro: General: patient oriented x3 Cranial nerves: Yes Equal, round and reactive pupils present Cognition (Neuro): normal cognition Extrem: General: Yes normal to inspection and Yes no pedal edema Results Labs CBC and Chem 7: 10/07/21 06:16 10/06/21 23:12 Labs: Laboratory Results - last 24 hr 10/06/21 10/06/21 10/06/21 19:11 19:11 19:11 MCV 83.0 MCH 27.7 MCHC 33.3 RDW 14.6 Plt Count 283 MPV 8.9 L Immature Gran % (Auto) 0.4 Neut % (Auto) 62.0 Lymph % (Auto) 28.9 [place] % (Auto) 7.4 Eos % (Auto) 1.2 Baso % (Auto) 0.1 Lymph # (Auto) 2.4 [place] # (Auto) 0.6 Eos # (Auto) 0.1 Baso # (Auto) 0.0 Abs Immat Gran (auto) 0.03 Absolute Neuts (auto) 5.1 Absolute Nucleated RBC 0.000 Nucleated RBC % (auto) 0.0 Anion Gap 19 Estim Creat Clear Calc 40.0 Estimated GFR 25 Random Glucose 97 Calcium 9.1 Total Bilirubin 0.3 Direct Bilirubin 0.2 AST 26 D ALT 25 Alkaline Phosphatase 95 Troponin I High Sens 9.9 Total Protein 7.4 Albumin 4.4 Lipase 50 Urine Color Urine Appearance Urine pH Ur Specific [place] Urine Protein Urine Glucose (UA) Urine Ketones Urine Blood Urine Nitrite Ur Leukocyte Esterase Urine RBC Urine WBC Ur Squamous Epith Cells Urine Bacteria Urine Mucus Urine Test 10/06/21 10/06/21 10/06/21 19:11 19:11 23:12 MCV MCH MCHC RDW Plt Count MPV Immature Gran % (Auto) Neut % (Auto) Lymph % (Auto) [place] % (Auto) Eos % (Auto) Baso % (Auto) Lymph # (Auto) [place] # (Auto) Eos # (Auto) Baso # (Auto) Abs Immat Gran (auto) Absolute Neuts (auto) Absolute Nucleated RBC Nucleated RBC % (auto) Anion Gap 16 Estim Creat Clear Calc 38.7 Estimated GFR 24 Random Glucose 88 Calcium 8.7 Total Bilirubin Direct Bilirubin AST ALT Alkaline Phosphatase Troponin I High Sens Total Protein Albumin Lipase Urine Color DK YELLOW Urine Appearance HAZY Urine pH 5.5 Ur Specific [place] 1.020 Urine Protein NEG Urine Glucose (UA) NEG Urine Ketones NEG Urine Blood 1+ H Urine Nitrite NEG Ur Leukocyte Esterase 1+ H Urine RBC 1-4 Urine WBC 5-9 H Ur Squamous Epith Cells 3+ Urine Bacteria 3+ Urine Mucus 2+ Urine Test NEGATIVE Imaging Radiologist's Impressions: Impressions Abdomen/Pelvis CT 10/06/21 18:57 IMPRESSION: 1. The appendix is normal. 2. Cause for the patient's acute right lower quadrant pain has not found. 3. An enlarged fatty liver is present. 4. Incidental note made of a nonobstructing 3 mm left renal calculus. Fleischner guidelines were followed. Assessment and Plan (1) Acute kidney injury superimposed on CKD: Status: Acute (2) Abdominal pain: Status: Acute (3) Diarrhea: Status: Acute (4) UTI (urinary tract infection): Status: Acute Plan 56-year-old female with past medical history as mentioned above including diabetes, hypertension presents to the hospital with complaints of 2-3 days abdominal pain, diarrhea found to have UTI as well as JUSTINO on CKD # Justino and CKD - likely secondary to dehydration, with diarrhea and low oral intake - will start IV fluids - follow BMP # abdominal pain and diarrhea - CT abdomen negative for any acute abnormality - likely viral gastroenteritis - will treat with supportive care, IV fluids # diarrhea - likely secondary to gastritis - rule out C diff - supportive care - IV fluids # UTI -although patient denies any urinary symptoms, given the diarrhea, abdominal pain, and dehydration as well as JUSTINO will treat with IV antibiotics - follow cultures # diabetes - hold oral antihyperglycemics - low-dose sliding scale insulin - diabetic diet # hypertension - stable - hold lisinopril in the setting of JUSTINO # Myloproliferative disease - hold allopurinol in the setting of JUSTINO DVT prophylaxis: Heparin subQ - given the JUSTINO, diarrhea, as well as UTI patient will require minimum 2 night hospital stay for further management -0 stable Quality Stroke Does the patient have a stroke diagnosis?: No VTE Prior VTE?: No VTE Risk Level:: Medical - low VTE Device Contraindication: Treatment Not Indicated VTE Drug Contraindication: N/A - Med Ordered
[2021-10-07] MEDS: Lactated Ringers 1,000 ML 100 ML IVCONT ×3 (01:37→17:10)
[2021-10-07 03:56] LABS: COVID-19 Test Negative (Negative)
[2021-10-07 04:40] VITALS: BP 130/65; PULSE 67; RESP 18; O2SAT 97
[2021-10-07 06:45] LABS: MANUAL DIFF FLAG NO
[2021-10-07 06:49] LABS: Basophils Percent Auto 0.2 % (0-2); Eosinophils Absolute Auto 0.1 X10*3/uL (0.0-0.4); Eosinophils Percent Auto 1.9 % (0-4); Hematocrit 28.7 % (37.0-47.0); Imm Gran Abs Auto 0.02 X10*3/uL (0.00-0.03); Imm Gran Pct Auto 0.3 % (0.0-0.4); Lymphocytes Absolute Auto 1.9 X10*3/uL (1.2-4.9); Mean Corpuscular HGB Conc 31.4 g/dl (31.0-35.0); Mean Corpuscular Hemoglobin 27.2 pg (27.0-33.0); Mean Corpuscular Volume 86.7 fL (80.0-98.0); Mean Platelet Volume 9.3 fL (9.4-12.3); Monocytes Absolute Auto 0.6 X10*3/uL (0.1-1.2); Monocytes Percent Auto 9.5 % (2-11); Neutrophils Absolute Auto 3.8 x10*3/uL (2.0-8.3); Neutrophils Percent Auto 59.1 % (45-73); Platelet Count 272 X10*3/uL (160-400); Red Blood Count 3.31 X10*6/uL (4.20-5.50); Red Cell Distribution Width 14.8 % (11.0-16.0); White Blood Count 6.4 X10*3/uL (4.8-10.8)
[2021-10-07 07:04] LABS: Anion Gap 14 (12-20); Blood Urea Nitrogen 31 mg/dL (9-16); Calcium 8.8 mg/dL (8.4-10.2); Carbon Dioxide 21 mmol/L (22-29); Chloride 110 mmol/L (96-108); Creatinine Clr Calc Pharmacy 41.6; Estimated Glomerular Filt Rate 26; Glucose Random 99 mg/dL (60-115); Potassium 5.3 mmol/L (3.3-5.1); Sodium 140 mmol/L (135-145)
[2021-10-07] MEDS: Heparin Sodium,Porcine 5,000 UNIT/ML VIAL 5000 UNIT SUBCUT ×2 (07:19→20:42)
[2021-10-07] MEDS: cefTRIAXone sodium 1 GM in 0.9 % Sodium Chloride 50 ML IV (07:20)
--- NOTE | 2021-10-07 07:25 | PC.NURSE ---
ate breakfast, no abd pain or n/v. nad. medicated as ordered skin wpd
[2021-10-07] MEDS: 0.9 % Sodium Chloride Flush 3 ML SYRINGE IVFLUSH (07:26)
[2021-10-07 08:24] LABS: Glucose, Whole Blood 88 mg/dL (60-115)
--- NOTE | 2021-10-07 09:10 | PC.NURSE ---
this gag writer assumed care of this pt at 0910. pt alert and oriented, vss. denies pain. LR running 100 ml/hr. no complaints.
[2021-10-07 09:14] VITALS: BP 100/50; PULSE 70; TEMP 35.7; O2SAT 95
--- NOTE | 2021-10-07 11:57 | P.EN_ITS ---
Event Note Date of Service: 10/07/21 Event Note: 56-year-old female with past medical history of BERNIE, GERD, anemia, morbid obesity, osteoarthritis, chronic mild low proliferative disease, CKD stage 3, diabetes, HTN, HLD who presents to the hospital with complaints of abdominal pain and diarrhea, symptoms started 2 days ago pain localized to epigastric region, nonradiating, 8/10, no alleviating or exacerbating factors associated with > 10 episodes of diarrhea, reports nausea with no vomiting.? No fever or chills, Patient denies urinary symptoms , has poor by mouth intake On arrival to the ED patient hemodynamically stable no significant abnormal vitals Labs are significant for WBC count of 8.2, hemoglobin of 9.3, hematocrit of 27.9, creatinine of 2.07 with a baseline of around 1.4, BUN of 33, UA positive for leukocyte Estrace and WBC. at present patient is resting comfortably history of [place] via spanish medical interpreter, denies abdominal pain, no further episodes of diarrhea general awake alert no distress neck is supple abdomen obese soft nontender extremities no edema 56-year-old female with past medical history as mentioned above including diabetes, hypertension presents to the hospital with complaints of 2-3 days abdominal pain, diarrhea found to have UTI as well as ADOLPH on CKD # Adolph on CKD stage III creatinine 2.07 on admission, baseline creatinine 1.5 likely secondary to dehydration, with diarrhea and low oral intake continue IV fluid follow BMP # abdominal pain and diarrhea - likely viral gastroenteritis,CT abdomen negative for any acute abnormality, abdominal pain continue IV fluids, analgesic # UTI UA positive patient denies urinary symptoms continue IV ceftriaxone day 1, follow urine culture. # diabetes - hold oral antihyperglycemics, continue diabetic diet and insulin sliding scale # hypertension - soft BP on Norvasc 10 mg and lisinopril - hold lisinopril in the setting of ADOLPH, resume Norvasc if BP allows # Myloproliferative disease - hold allopurinol in the setting of ADOLPH DVT prophylaxis:? Heparin subQ will request for med reconciliation not done patient admitted this morning continue hospitalization for acute kidney injury requiring IV fluids and IV antibiotics for UTI
[2021-10-07 12:31] LABS: Glucose, Whole Blood 88 mg/dL (60-115)
--- NOTE | 2021-10-07 13:31 | PHA.MEDREC ---
Pharmacy Consult ? Medication Reconciliation Pharmacy has completed the medication reconciliation. Spoke with patient via interpreter deaf. Patient was able to tell me if she was on medications but did not know doses. Patient fills all meds at [facility] and I was able to get an active medication list from them. patient last took medications yesterday.
[2021-10-07 14:52] VITALS: BP 116/60; PULSE 71; RESP 16; TEMP 36.7; O2SAT 97
[2021-10-07 16:00] VITALS: BP 135/66; PULSE 67; RESP 18; TEMP 37.1; O2SAT 97
--- NOTE | 2021-10-07 16:06 | PC.NURSE ---
report given to NEGAR Villarreal
[2021-10-07 17:11] LABS: Glucose, Whole Blood 111 mg/dL (60-115)
[2021-10-07 20:00] VITALS: BP 134/63; PULSE 74; RESP 18; TEMP 36.4; O2SAT 97
[2021-10-07 20:01] LABS: CDiff Gene PCR NEGATIVE (Negative)
[2021-10-07 21:32] LABS: Glucose, Whole Blood 107 mg/dL (60-115)
[2021-10-08] VITALS: BP 145/70; PULSE 65; RESP 17; TEMP 36.4; O2SAT 95
[2021-10-08] MEDS: Lactated Ringers 1,000 ML 100 ML IVCONT (03:18)
[2021-10-08 04:00] VITALS: BP 127/62; PULSE 70; RESP 17; TEMP 36.5; O2SAT 95
[2021-10-08] MEDS: cefTRIAXone sodium 1 GM in 0.9 % Sodium Chloride 50 ML IV (06:17)
[2021-10-08] MEDS: Heparin Sodium,Porcine 5,000 UNIT/ML VIAL 5000 UNIT SUBCUT (06:17)
[2021-10-08 07:42] VITALS: BP 115/73; PULSE 66; RESP 16; TEMP 36.1; O2SAT 95
[2021-10-08 07:46] LABS: Glucose, Whole Blood 100 mg/dL (60-115)
[2021-10-08 08:26] LABS: Anion Gap 13 (12-20); Blood Urea Nitrogen 22 mg/dL (9-16); Calcium 8.9 mg/dL (8.4-10.2); Carbon Dioxide 23 mmol/L (22-29); Chloride 108 mmol/L (96-108); Creatinine Clr Calc Pharmacy 63.2; Estimated Glomerular Filt Rate 42; Glucose Random 107 mg/dL (60-115); Sodium 139 mmol/L (135-145)
[2021-10-08] MEDS: Cholecalciferol (Vitamin D3) 25 MCG TABLET PO (09:09)
[2021-10-08] MEDS: Escitalopram Oxalate 20 MG TABLET PO (09:09)
[2021-10-08] MEDS: SITagliptin Phosphate 50 MG TABLET PO (10:00)
[2021-10-08 11:30] VITALS: BP 137/69; PULSE 66; RESP 18; TEMP 36.1; O2SAT 97
[2021-10-08 11:30] LABS: Glucose, Whole Blood 82 mg/dL (60-115)
--- NOTE | 2021-10-08 13:42 | MHC.CM.PN ---
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 D/C PLAN: HOME TODAY W/RESUMP OF SERVICES, DTR TO TRANSPORT TODAY AFTER DROPPING OF HER CHILD.
--- NOTE | 2021-10-08 16:15 | P.DS_ITS ---
DS: Providers Provider Date of Service: 10/08/21 Date of admission: 10/07/21 00:27 Primary care physician: Kalpana Steele MD DS: Diagnosis Discharge Diagnosis (1) Acute kidney injury superimposed on CKD: Status: Acute (2) Abdominal pain: Status: Acute (3) Diarrhea: Status: Acute (4) UTI (urinary tract infection): Status: Acute DS: Summary Hospital Course Hospital Course: Chief Complaint: Abdominal pain and diarrhea This is a 56-year-old female with past medical history of BERNIE, GERD, anemia, morbid obesity, osteoarthritis, chronic mild low proliferative disease, CKD stage 3, diabetes, HTN, HLD who presents to the hospital with complaints of abdominal pain as well as diarrhea.? Patient reports her symptoms started 2 days prior to presentation.? Pain is localized to the epigastric region, nonradiating, 8/10, no alleviating or exacerbating factors.? She has had more than 10 episodes of diarrhea prior to presenting to the hospital.? Patient reports nausea with no vomiting.? No fever or chills, no alleviating or exacerbating factors.? No recent travel.? Patient denies any urinary symptoms and no lower extremity edema.? She also reports low oral intake and has not eaten for 3 days.? On arrival to the ED patient hemodynamically stable no significant abnormal vitals Labs are significant for WBC count of 8.2, hemoglobin of 9.3, hematocrit of 27.9, creatinine of 2.07 with a baseline of around 1.4, BUN of 33, UA positive for leukocyte Estrace and WBC. Patient will be admitted for further management. hospital course 56-year-old female with past medical history of diabetes hypertension admitted to [facility] with symptoms of abdominal pain and diarrhea and was diagnosed to have acute on chronic kidney disease with creatinine of 2.07 on admission with a baseline creatinine of 1.5, CT abdomen was negative for acute abnormality, patient was admitted to medical floor with a diagnosis of acute on chronic kidney disease stage 3, likely pre renal with diarrhea, and also with low blood pressures,was treated with IV fluids and analgesics patient responded well to above treatment during course of hospitalization patient had no further bouts of diarrhea, no nausea, no vomiting she is tolerating diet she did have epigastric discomfort likely due to underlying history of GERD was continued on Prilosec and Pepcid, with improvement in symptoms, initially felt to have UTI due to positive urinalysis however patient was asymptomatic and urine culture grew strep agalactie therefore does not require antibiotic treatment, since patient symptoms have resolved she is being discharged home due to low blood pressure Zestril has been discontinued and dose of Norvasc has been lowered to 5 mg patient is on multiple medications at home therefore recommend to review home medications with PCP. Diabetes mellitus she is recommended to follow diabetic diet and continue home medications. in regard to morbid obesity patient has been recommended to follow low-calorie diet. discharge diagnosis acute on chronic kidney disease stage 3 abdominal pain/ diarrhea likely gastroenteritis morbid obesity Time Spent with Patient Time attestation: Total time spent providing and/or coordinating discharge services: Discharge coordination time: Greater than 30 minutes Quality: Safe Use of Opioids Does Pt have an Active Cancer Diagnosis on the Problem List?: No Quality: Stroke Does the patient have a stroke diagnosis?: No Physical Exam Vital Signs: Vital Signs: Last Vital Signs Temp 96.9 F 10/08/21 11:30 Pulse 66 10/08/21 11:30 Resp 18 10/08/21 11:30 BP 137/69 10/08/21 11:30 Pulse Ox 97 10/08/21 11:30 BMI result Body Mass Index 42.0 Const: Other: General Awake alert x3, no acute distress. Neck supple no JVD. CVS regular rate rhythm, Respiratory lungs clear to auscultation, no respiratory distress, no wheeze, no rhonchi. Gastrointestinal abdomen obese ,soft, nontender, bowel sounds audible,no guarding , no rigidity. Extremities no edema. Neuro nonfocal Skin no rash psych appropriate affect DS: Data Data Completed and Pending Labs on day of discharge: Laboratory Results - last 24 hr 10/07/21 10/07/21 10/07/21 17:06 18:50 21:15 Sodium Potassium Chloride Carbon Dioxide Anion Gap BUN Creatinine Estim Creat Clear Calc Estimated GFR POC Glucose 111 107 Random Glucose Calcium C. difficile Tox B Gene NEGATIVE 10/08/21 10/08/21 10/08/21 07:33 07:40 11:23 Sodium 139 Potassium 5.0 Chloride 108 Carbon Dioxide 23 Anion Gap 13 BUN 22 H Creatinine 1.31 Estim Creat Clear Calc 63.2 Estimated GFR 42 POC Glucose 100 82 Random Glucose 107 Calcium 8.9 C. difficile Tox B Gene Preliminary micro results at discharge 10/07/21 18:50 Stool Culture - Preliminary Stool Culture in progress. Discharge Plan Discharge Patient Disposition: Home, Self-Care Discharge Diagnosis: Acute on chronic kidney disease stage 3 diarrhea Referrals: Kalpana Baptiste MD [Primary Care Provider] - 1 Week Discharge Medications: New amlodipine [Norvasc] 5 mg tablet 5 mg PO DAILY Qty: 30 0RF Continued Januvia 50 mg tablet 50 mg PO DAILY 90 Days Qty: 90 2RF Rx Instructions: Dose reduced based on GFR citalopram 40 mg Tablet 40 mg PO DAILY 0RF atorvastatin 20 mg Tablet 20 mg PO BEDTIME 0RF tamsulosin 0.4 mg Capsule 0.4 mg PO DAILY@1700 0RF lidocaine [Lidoderm] 5 % Adhesive Patch,Medicated 1 patch TOPICAL DAILY 0RF Rx Instructions: leave on most painful area for up to 12 hrs fluticasone propionate 50 mcg/actuation Bly,Suspension 2 spray INTRANASAL DAILY PRN (Reason: Allergy Symptoms) 0RF Rx Instructions: administer into each nostril loratadine 10 mg Tablet 10 mg PO DAILY PRN (Reason: Allergy Symptoms) 0RF diclofenac sodium 1 % Gel 2 g TOPICAL BID 0RF Rx Instructions: apply to single elbow, wrist or hand; for hand includes palm/fingers/back of hand metformin 500 mg tablet 500 mg PO BIDWM 0RF albuterol sulfate 2.5 mg /3 mL (0.083 %) solution for nebulization 2.5 mg inhalation TID 0RF pantoprazole [Protonix] 40 mg tablet,delayed release (DR/EC) 40 mg PO DAILY@0630 0RF albuterol sulfate [ProAir HFA] 90 mcg/actuation Hfa Aerosol Inhaler 2 puff INHALATION Q4-6H PRN (Reason: Shortness Of Breath) 0RF Jakafi 5 mg Tablet 5 mg PO BID 0RF tramadol 50 mg tablet 50 mg PO QID PRN (Reason: Pain (Scale Score 1-3)) 0RF acetaminophen [Tylenol Extra Strength] 500 mg tablet 1,000 mg PO TID PRN (Reason: Pain (Scale Score 4-6)) 0RF cholecalciferol (vitamin D3) 25 mcg (1,000 unit) capsule 25 mcg PO DAILY 0RF tolterodine [Detrol LA] 4 mg capsule,extended release 24hr 4 mg PO BEDTIME 0RF mirtazapine 15 mg tablet 15 mg PO BEDTIME PRN (Reason: Sleep) 0RF famotidine [Pepcid] 40 mg tablet 40 mg PO BEDTIME 30 Days Qty: 30 6RF ferrous sulfate 325 mg (65 mg iron) tablet 325 mg PO DAILY Qty: 30 6RF Discontinued amlodipine 10 mg tablet 10 mg PO DAILY 90 Days Qty: 90 1RF lisinopril 10 mg Tablet 10 mg PO DAILY 0RF dicyclomine 20 mg tablet 20 mg PO QID 30 Days Qty: 120 6RF Discharge Orders: Discharge Order (Routine); Ordered 10/08/21 Ordered By: Rosemary Miranda Diet: diabetic diet Activity on Discharge: As tolerated Stand Alone Forms: Patient Portal Discharge page Care Plan Goals: acute kidney injury resolved, noted to have soft blood pressure therefore dose of Norvasc reduced to 5 mg and lisinopril discontinued, patient on multiple medications recommend to follow-up with PCP to adjust home meds, on Flomax and Detrol LA, also on protonix and Pepcid, recommend to take dicyclomine as needed Health Concerns: hyperlipidemia, hypertension, chronic kidney disease stage 3, chronic pain, recommend to follow low-calorie diet/ exercise as tolerated Plan of Treatment: outpatient follow-up with primary care physician in 1-2 weeks Assessment: as per discharge summary Discharge Date/Time: 10/08/21 14:00
== END 2021-10-08 14:00 | disposition home or self-care (01) ==
LOC: HO.ED 10-07 00:02 → HO.EDOVER 10-07 00:42 → HO.S3 10-07 15:08
PROVIDERS: Admitting Provider Internal Medicine; Emergency Provider Emergency Medicine; PCP Internal Medicine; Visit Provider Hospitalist
DX: N17.9 Acute kidney failure, unspecified (principal); R10.31 Right lower quadrant pain; R19.7 Diarrhea, unspecified; N39.0 Urinary tract infection, site not specified; K29.70 Gastritis, unspecified, without bleeding; K21.9 Gastro-esophageal reflux disease without esophagitis; E11.22 Type 2 diabetes mellitus with diabetic chronic kidney disease; I12.9 Hypertensive chronic kidney disease with stage 1 through stage 4 chronic kidney disease, or unspecified chronic kidney disease; N18.30 Chronic kidney disease, stage 3 unspecified; E86.0 Dehydration; N20.0 Calculus of kidney; K76.0 Fatty (change of) liver, not elsewhere classified; G47.33 Obstructive sleep apnea (adult) (pediatric); E66.01 Morbid (severe) obesity due to excess calories; E78.5 Hyperlipidemia, unspecified; Z88.6 Allergy status to analgesic agent; Z88.3 Allergy status to other anti-infective agents; Z88.0 Allergy status to penicillin; Z79.4 Long term (current) use of insulin
CPT/HCPCS: 36415; 74176; 80048; 80076; 81001; 81025; 82947; 83690; 84484; 85025; 87045; 87046; 87086; 87147; 87493; 87635; 96361; 96374; 96375; 99218; 99285; J0696

== ENCOUNTER → 2021-10-17 12:29 | Outpatient (BNVA) | payer MEDICAID, SELFPAY | PROVIDERS: PCP Internal Medicine; Visit Provider Surgery | DX: K82.8 Other specified diseases of gallbladder (principal) | CPT/HCPCS: 99212 ==

== ENCOUNTER → 2021-10-23 12:29 | Outpatient (BNVA) | payer MEDICAID, SELFPAY | PROVIDERS: PCP Internal Medicine; Visit Provider Dietitian, Registered | DX: E11.21 Type 2 diabetes mellitus with diabetic nephropathy (principal); Z71.3 Dietary counseling and surveillance | CPT/HCPCS: 97803 ==

== ENCOUNTER → 2021-10-29 13:31 | Outpatient (BNVA) | payer MEDICAID, SELFPAY | PROVIDERS: PCP Internal Medicine; Visit Provider Nurse Practitioner | DX: K21.9 Gastro-esophageal reflux disease without esophagitis (principal); E66.01 Morbid (severe) obesity due to excess calories; Z68.39 Body mass index [BMI] 39.0-39.9, adult; R14.0 Abdominal distension (gaseous); R10.33 Periumbilical pain; K81.9 Cholecystitis, unspecified; D64.9 Anemia, unspecified; Z79.899 Other long term (current) drug therapy | CPT/HCPCS: 99212 ==

== ENCOUNTER → 2021-11-28 12:58 | Outpatient (BNVA) | payer MEDICAID, SELFPAY | PROVIDERS: PCP Internal Medicine; Visit Provider Dietitian, Registered | DX: E11.21 Type 2 diabetes mellitus with diabetic nephropathy (principal); E66.9 Obesity, unspecified; Z68.41 Body mass index [BMI] 40.0-44.9, adult; Z71.3 Dietary counseling and surveillance | CPT/HCPCS: 97803 ==

== ENCOUNTER 2021-12-11 13:49 | Outpatient (REF) | payer MEDICAID, SELFPAY | END 2021-12-11 13:50 | disposition home or self-care (01) | LOC: HO.MDS 13:49 | PROVIDERS: Visit Provider Internal Medicine Medical Oncology | DX: D50.9 Iron deficiency anemia, unspecified (principal) | CPT/HCPCS: 96365; J2916 ==

== ENCOUNTER 2021-12-18 12:35 | Outpatient (REF) | payer MEDICAID, SELFPAY | END 2021-12-18 12:36 | disposition home or self-care (01) | LOC: HO.MDS 12:35 | PROVIDERS: Visit Provider Internal Medicine Medical Oncology | DX: D50.9 Iron deficiency anemia, unspecified (principal); Z94.81 Bone marrow transplant status; Z94.84 Stem cells transplant status | CPT/HCPCS: 96365; J2916 ==

== ENCOUNTER 2021-12-27 10:48 | Emergency (ER) | payer MEDICAID, SELFPAY ==
--- NOTE | ~2021-12-27 | XR_ITS ---
EXAMINATION: XR FOOT, LEFT CLINICAL INFORMATION: Pain after fall COMPARISON: None TECHNIQUE: 3 views of the left foot. FINDINGS: Bones have normal alignment throughout the foot. No acute fracture or subluxation. Moderate sized enthesophytes at the posterior and plantar surfaces of the calcaneus. Small osteophytes of the first metatarsophalangeal joint. Nonspecific soft tissue swelling of the foot. XR/XR foot LT min 3V IMPRESSION: * No acute osseous injury in the left foot. * Incidentally noted is mild osteoarthritis of the great toe metatarsophalangeal joint. * Nonspecific soft tissue swelling of the foot.
[2021-12-27 11:01] VITALS: BP 147/74; PULSE 87; RESP 18; TEMP 36.6; O2SAT 96; BMI 41.8
--- NOTE | 2021-12-27 12:32 | ED.GENADULT ---
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 Patient states that yesterday, she tripped and fell and is now having left great toe pain and right palm pain. Patient states that she did not hit her head with the incident. Patient states that she had no loss of consciousness. Patient denies any dizziness, lightheadedness, abdominal pain, nausea, vomiting, fever, chills, blurry vision, double vision, loss of vision, chest pain, difficulty breathing, shortness of breath, back pain, night sweats, pain with urination, increased urinary frequency, increased urinary urgency, blood in her urine or stool, syncope or a near syncopal episode, bowel incontinence, bladder incontinence, bowel retention, bladder retention, or any other complaints at this time. Onset (ago): day(s) (1) Related Data Home Medications Medication Instructions Recorded Confirmed citalopram 40 mg tablet 40 mg PO DAILY 02/15/20 11/15/21 cholecalciferol (vitamin D3) 25 25 mcg PO DAILY 02/16/20 11/15/21 mcg (1,000 unit) capsule acetaminophen 500 mg tablet 1,000 mg PO TID PRN Pain (Scale 07/10/20 11/15/21 (Tylenol Extra Strength) Score 4-6) tramadol 50 mg tablet 50 mg PO QID PRN Pain (Scale Score 07/10/20 11/15/21 1-3) mirtazapine 15 mg tablet 15 mg PO BEDTIME PRN Sleep 11/28/20 11/15/21 tolterodine 4 mg capsule,extended 4 mg PO BEDTIME 11/28/20 11/15/21 release 24 hr (Detrol LA) albuterol sulfate 2.5 mg/3 mL 2.5 mg inhalation TID 10/07/21 11/15/21 (0.083 %) solution for nebulization albuterol sulfate 90 mcg/actuation 2 puff inhalation Q4-6H PRN 10/07/21 11/15/21 aerosol inhaler (ProAir HFA) Shortness Of Breath atorvastatin 20 mg tablet 20 mg PO BEDTIME 10/07/21 11/15/21 diclofenac sodium 1 % topical gel 2 g topical BID 10/07/21 11/15/21 fluticasone propionate 50 2 spray intranasal DAILY PRN 10/07/21 11/15/21 mcg/actuation nasal Allergy Symptoms spray,suspension lidocaine 5 % topical patch 1 patch topical DAILY 10/07/21 11/15/21 (Lidoderm) loratadine 10 mg tablet 10 mg PO DAILY PRN Allergy Symptoms 10/07/21 11/15/21 metformin 500 mg tablet 500 mg PO BIDWM 10/07/21 11/15/21 ruxolitinib 5 mg tablet (Jakafi) 5 mg PO BID 10/07/21 11/15/21 tamsulosin 0.4 mg capsule 0.4 mg PO DAILY@1700 10/07/21 11/15/21 Previous Rx's Medication Instructions Recorded sitagliptin 50 mg tablet (Januvia) 50 mg PO DAILY 90 days #90 tabs 06/11/21 amlodipine 5 mg tablet (Norvasc) 5 mg PO DAILY #30 tabs 10/08/21 famotidine 40 mg tablet (Pepcid) 40 mg PO BEDTIME 30 days #30 tabs 10/29/21 ferrous sulfate 325 mg (65 mg 325 mg PO DAILY #30 tabs 10/29/21 iron) tablet pantoprazole 40 mg tablet,delayed 40 mg PO DAILY@0630 #30 tabs 10/29/21 release (Protonix) Allergies Allergy/AdvReac Type Severity Reaction Status Date / Time aspirin [ASPIRIN] Allergy Intermediate SWELLING/ITCHING, Verified 11/15/21 09:50 rash Penicillins Allergy Intermediate ITCHING Verified 11/15/21 09:50 vancomycin [VANCOMYCIN] AdvReac Intermediate RED MAN Verified 11/15/21 09:50 SYNDROME PER MD Review of Systems Constitutional: Constitutional: Reports no additional constitutional complaints, Denies chills, Denies fever(s) and Denies night sweats Eyes: Eyes: Reports no additional eye complaints, Denies blurry vision, Denies change in vision, Denies diplopia, Denies eye discharge, Denies loss of vision and Denies eye pain ENT: Denies dizziness Cardiovascular: Cardiovascular: Reports no additional cardiovascular complaints, Denies chest pain, Denies lightheadedness, Denies Loss of Consciousness and Denies dyspnea Respiratory: Respiratory: Reports no additional respiratory complaints and Denies dyspnea Gastrointestinal: Gastrointestinal: Reports no additional gastrointestinal complaints, Denies abdominal pain, Denies melena, Denies hematochezia, Denies change in bowel habits and Denies change in stool character Genitourinary: Genitourinary: Denies hematuria, Denies urinary frequency, Denies dysuria, Denies urinary incontinence, Denies urinary hesitancy and Denies urinary urgency Musculoskeletal: Musculoskeletal: Reports no additional musculoskeletal complaints, Denies numbness and Denies tingling Comments: right hand pain, left great toe pain Neurologic: Denies dizziness, Denies loss of vision, Denies numbness and Denies tingling Psychiatric: Psychiatric: Reports no additional psychiatric complaints Endocrine: Endocrine: Reports no additional endocrine complaints Hematologic/Lymphatic: Hematologic/Lymphatic: Reports no additional hematologic/lymphatic complaints Allergic/Immunologic: Allergic/Immunologic: Reports no additional allergic/immunologic complaints PMFSH Past Medical History Attestation statement: The following information was validated with the patient. Source: old records reviewed Medical History Anemia Asthma Biliary dyskinesia Chronic myeloproliferative disease CKD stage 3 due to type 2 diabetes mellitus COVID-19 vaccine series completed Diabetes type 2, controlled Diabetic nephropathy Diabetic neuropathy associated with type 2 diabetes mellitus Dyslipidemia GERD (gastroesophageal reflux disease) Hiatal hernia History of depression History of gastritis History of myelofibrosis Hypertension Migraines Morbid obesity due to excess calories Obesity due to excess calories BERNIE (obstructive sleep apnea) Osteoarthritis of knees, bilateral Osteoarthritis of wrist Upper abdominal pain Vitamin B12 deficiency Surgical History Bone marrow replaced by transplant H/O stem cell transplant History of partial hysterectomy History of resection of meningioma Hx of breast reduction, elective Hx of colonoscopy Hx of esophagogastroduodenoscopy Family History Family History Father Heart problem HTN (hypertension) Mother Diabetes Family/Other Diabetes HTN (hypertension) Heart problem Sister Cancer Social History Social History Household Members: None Housing: Apartment Are you a primary patient care nursing assistant to a significant other at home: No Do you presently have visiting nurse or other home services: Yes Alcohol intake: never Patient Tobacco Use Status: Never used Tobacco Advance Directives: Yes Advance Directives on File: Yes Advance Directives Date on File: 03/24/16 service: No Current occupational status: disabled Physical Exam ED Vital Signs: Vital Signs - 24 hr 12/27/21 11:01 Temperature 98 F Pulse Rate 87 Respiratory Rate 18 Blood Pressure 147/74 H Pulse Oximetry 96 Oxygen Delivery Method Room Air BMI result Body Mass Index 41.8 Const General: cooperative, no acute distress, alert and awake Nutritional Appearance: well nourished Orientation/consciousness: patient oriented x3 Limitations: no limitations HENMT Head: Yes normal to inspection and Yes atraumatic Ears: hearing grossly normal bilaterally and external ears normal General nose exam: Normal external nose present, no nasal discharge noted and no epistaxis Face and sinus: Yes normal facial exam, No abrasion and No laceration Mouth: Normal oral and palatal mucosa present, no drooling and no muffled voice Eyes General: appearance normal, both eyes and all related structures Periorbital: periorbital findings normal Eyelids: Yes eyelids normal Conjunctivae: conjunctivae normal Pupils: Equal, round and reactive pupils present EOM: EOMs intact bilaterally Neck Neck: Yes normal visual inspection, Yes full ROM and Yes no lymphadenopathy Chest Chest palpation & inspection: normal inspection of the chest Resp Effort & Inspection: normal respiratory effort and able to speak in complete sentences Auscultation: clear to auscultation bilaterally Cardio Rate: regular rate Rhythm: regular rhythm GI Inspection: Yes normal to inspection Neuro General: patient oriented x3 and moves all extremities Cranial nerves: Yes Equal, round and reactive pupils present Cognition (Neuro): normal cognition Motor exam (neuro): 5/5 motor strength present throughout Sensory Exam: Normal double simultaneous stimulation for sensation Coordination: [id number] test normal Extrem General: Yes normal to inspection, Yes full ROM and Yes capillary refill normal Psych Appearance: grossly normal Mental Status: mental status grossly normal Affect: normal affect Attitude: cooperative Thought process: Normal thought process present Thought content: Normal thought content present Insight: Good insight present (Psych) Medical Decision Making MDM Narrative Medical decision making narrative: Patient is a 56 year old female presenting to the emergency department today with right hand pain and left great toe pain. Patient's physical exam was unremarkable. Patient's left foot x-ray showed no acute process. I explained my physical exam findings as well as all test results to the patient. I answered all questions asked by the patient. I stressed the importance of the patient taking her medication as prescribed. I stressed the importance of the patient following up with her primary care provider. I stressed the importance of the patient returning to the emergency department immediately if her symptoms were to worsen or if she were to develop any dizziness, shortness of breath, difficulty breathing, chest pain, blurry vision, loss of vision, nausea, vomiting, abdominal pain, fever, chills, back pain, or any other complaints. Patient verbalized agreement and understanding with this treatment plan and discharge. Differential Diagnosis Differential Diagnosis: left foot pain, right hand pain Medical Records Medical records reviewed: Yes I reviewed the patient's medical records. Lab Data Lab results reviewed: Yes I reviewed the patient's lab results. Imaging Data Left foot x-ray: Attestation: I personally reviewed and interpreted this imaging study as follows: My impression: No acute process. Radiologist's impression: EXAMINATION: XR FOOT, LEFT CLINICAL INFORMATION: Pain after fall? COMPARISON: None? TECHNIQUE: 3 views of the left foot. FINDINGS: Bones have normal alignment throughout the foot. No acute fracture or subluxation. Moderate sized enthesophytes at the posterior and plantar surfaces of the calcaneus. Small osteophytes of the first metatarsophalangeal joint. Nonspecific soft tissue swelling of the foot.? XR/XR foot LT min 3V IMPRESSION: *? No acute osseous injury in the left foot. *? Incidentally noted is mild osteoarthritis of the great toe metatarsophalangeal joint. *? Nonspecific soft tissue swelling of the foot. Dictated By: Valentin Abdalla MD Signed By: Electronically signed by Valentin Abdalla MD 12/27/21 1311 Discharge Plan Discharge Clinical Impression: Fall Patient Disposition: Home, Self-Care Instructions: Fall Prevention (ED) Additional Instructions: Follow up with your primary care provider. Return to the emergency department immediately if your symptoms worsen or if you develop any dizziness, shortness of breath, difficulty breathing, chest pain, blurry vision, loss of vision, nausea, vomiting, abdominal pain, fever, chills, back pain, or any other complaints. Prescriptions: No Action Januvia 50 mg tablet 50 mg PO DAILY 90 Days Qty: 90 2RF Rx Instructions: Dose reduced based on GFR citalopram 40 mg Tablet 40 mg PO DAILY atorvastatin 20 mg Tablet 20 mg PO BEDTIME tamsulosin 0.4 mg Capsule 0.4 mg PO DAILY@1700 lidocaine [Lidoderm] 5 % Adhesive Patch,Medicated 1 patch TOPICAL DAILY Rx Instructions: leave on most painful area for up to 12 hrs fluticasone propionate 50 mcg/actuation [place],Suspension 2 spray INTRANASAL DAILY PRN (Reason: Allergy Symptoms) Rx Instructions: administer into each nostril loratadine 10 mg Tablet 10 mg PO DAILY PRN (Reason: Allergy Symptoms) diclofenac sodium 1 % Gel 2 g TOPICAL BID Rx Instructions: apply to single elbow, wrist or hand; for hand includes palm/fingers/back of hand metformin 500 mg tablet 500 mg PO BIDWM albuterol sulfate 2.5 mg /3 mL (0.083 %) solution for nebulization 2.5 mg inhalation TID albuterol sulfate [ProAir HFA] 90 mcg/actuation Hfa Aerosol Inhaler 2 puff INHALATION Q4-6H PRN (Reason: Shortness Of Breath) Jakafi 5 mg Tablet 5 mg PO BID amlodipine [Norvasc] 5 mg tablet 5 mg PO DAILY Qty: 30 0RF tramadol 50 mg tablet 50 mg PO QID PRN (Reason: Pain (Scale Score 1-3)) acetaminophen [Tylenol Extra Strength] 500 mg tablet 1,000 mg PO TID PRN (Reason: Pain (Scale Score 4-6)) cholecalciferol (vitamin D3) 25 mcg (1,000 unit) capsule 25 mcg PO DAILY tolterodine [Detrol LA] 4 mg capsule,extended release 24hr 4 mg PO BEDTIME mirtazapine 15 mg tablet 15 mg PO BEDTIME PRN (Reason: Sleep) pantoprazole [Protonix] 40 mg tablet,delayed release (DR/EC) 40 mg PO DAILY@0630 Qty: 30 6RF famotidine [Pepcid] 40 mg tablet 40 mg PO BEDTIME 30 Days Qty: 30 6RF ferrous sulfate 325 mg (65 mg iron) tablet 325 mg PO DAILY Qty: 30 6RF Referrals: Kalpana Baptiste MD [Primary Care Provider] - Interventions: ED Discharge Assessment Last Done: 12/27/21 13:56 Discharge Date/Time: 12/27/21 13:58 Print Language: Kinyarwanda
== END 2021-12-27 13:58 | disposition home or self-care (01) ==
PROVIDERS: Emergency Provider Emergency Medicine Emergency Medical Services; PCP Internal Medicine
DX: Z04.3 Encounter for examination and observation following other accident (principal); M79.675 Pain in left toe(s); M79.641 Pain in right hand
CPT/HCPCS: 73630; 99282; 99283

== ENCOUNTER 2021-12-28 11:48 | Outpatient (REF) | payer MEDICAID, SELFPAY | END 2021-12-28 11:49 | disposition home or self-care (01) | LOC: HO.MDS 11:48 | PROVIDERS: Visit Provider Internal Medicine Medical Oncology | DX: D50.9 Iron deficiency anemia, unspecified (principal); Z94.81 Bone marrow transplant status; Z94.84 Stem cells transplant status | CPT/HCPCS: 96365; J2916 ==

== ENCOUNTER 2021-12-30 14:26 | Emergency (ER) | payer MEDICAID, SELFPAY ==
--- NOTE | ~2021-12-30 | US_ITS ---
EXAMINATION: US VENOUS ULTRASOUND WITH DOPPLER LOWER EXTREMITY, LEFT CLINICAL INFORMATION: Foot pain swelling COMPARISON: None TECHNIQUE: Ultrasound of the deep veins is performed from the hip to the calf with compression sonography and color and pulse Doppler assessment. Spectral analysis with color-flow imaging is performed. FINDINGS: There is normal venous compression and respiratory variation and augmented flow. The visualized common femoral vein, superficial femoral vein, profunda femoral vein, popliteal vein, and the trifurcation region shows no evidence of deep venous thrombosis. There is no significant popliteal fossa cyst. If the patient's symptoms persist, followup ultrasound in 5 days 7 days might be of value to exclude proximal propagation from a non-visualized calf vein. US/US venous duplex LE LT IMPRESSION: No DVT demonstrated in the left lower extremity.
--- NOTE | ~2021-12-30 | XR_ITS ---
EXAMINATION: XR FOOT, LEFT CLINICAL INFORMATION: Pain COMPARISON: Left foot radiographs 03/17/2010 TECHNIQUE: AP, lateral, and oblique views of the left foot. FINDINGS: Soft tissue swelling along the dorsal aspect of the foot. No acute fracture or dislocation. Mild first MTP joint osteoarthritis with small marginal osteophytes. Joint spaces are maintained. Lisfranc alignment is within normal limits. Large posterior and plantar calcaneal spurs. Healed fracture deformities of the medial malleolus and distal fibula. XR/XR foot LT min 3V IMPRESSION: 1. No acute fracture or dislocation. 2. Mild first MTP joint osteoarthritis. 3. Healed fractures of the medial and lateral malleoli.
[2021-12-30 14:28] VITALS: BP 146/65; PULSE 100; RESP 19; TEMP 36.1; O2SAT 98; BMI 43.0
--- NOTE | 2021-12-30 15:35 | ED.EXTPRO ---
HPI - Extremity Problem General Chief complaint: Extremity Injury, Lower Stated complaint: L foot pain Time Seen by Provider: 12/30/21 14:58 Source: patient Mode of arrival: ambulatory Limitations: language barrier (Luxembour[place]-speaking medical delivery technician utilized) History of Present Illness HPI Narrative: Patient presents emergency department for evaluation of left foot pain. Onset of pain a few weeks ago, but pain had resolved and then last night she developed sudden onset of severe pain. Pain has been constant. Pain is mostly felt to the ball of the left foot radiating down towards the heel and upper leg. Is is made worse with ambulation or weight-bearing. There is redness to the base of her toe. Denies any numbness or tingling. Denies any known precipitating injury or trauma. Denies any wounds or lesions. Pain has been unrelieved despite the use of home tramadol Related Data Home Medications Medication Instructions Recorded Confirmed citalopram 40 mg tablet 40 mg PO DAILY 02/15/20 11/15/21 cholecalciferol (vitamin D3) 25 25 mcg PO DAILY 02/16/20 11/15/21 mcg (1,000 unit) capsule acetaminophen 500 mg tablet 1,000 mg PO TID PRN Pain (Scale 07/10/20 11/15/21 (Tylenol Extra Strength) Score 4-6) tramadol 50 mg tablet 50 mg PO QID PRN Pain (Scale Score 07/10/20 11/15/21 1-3) mirtazapine 15 mg tablet 15 mg PO BEDTIME PRN Sleep 11/28/20 11/15/21 tolterodine 4 mg capsule,extended 4 mg PO BEDTIME 11/28/20 11/15/21 release 24 hr (Detrol LA) albuterol sulfate 2.5 mg/3 mL 2.5 mg inhalation TID 10/07/21 11/15/21 (0.083 %) solution for nebulization albuterol sulfate 90 mcg/actuation 2 puff inhalation Q4-6H PRN 10/07/21 11/15/21 aerosol inhaler (ProAir HFA) Shortness Of Breath atorvastatin 20 mg tablet 20 mg PO BEDTIME 10/07/21 11/15/21 diclofenac sodium 1 % topical gel 2 g topical BID 10/07/21 11/15/21 fluticasone propionate 50 2 spray intranasal DAILY PRN 10/07/21 11/15/21 mcg/actuation nasal Allergy Symptoms spray,suspension lidocaine 5 % topical patch 1 patch topical DAILY 10/07/21 11/15/21 (Lidoderm) loratadine 10 mg tablet 10 mg PO DAILY PRN Allergy Symptoms 10/07/21 11/15/21 metformin 500 mg tablet 500 mg PO BIDWM 10/07/21 11/15/21 ruxolitinib 5 mg tablet (Jakafi) 5 mg PO BID 10/07/21 11/15/21 tamsulosin 0.4 mg capsule 0.4 mg PO DAILY@1700 10/07/21 11/15/21 Previous Rx's Medication Instructions Recorded sitagliptin 50 mg tablet (Januvia) 50 mg PO DAILY 90 days #90 tabs 06/11/21 amlodipine 5 mg tablet (Norvasc) 5 mg PO DAILY #30 tabs 10/08/21 famotidine 40 mg tablet (Pepcid) 40 mg PO BEDTIME 30 days #30 tabs 10/29/21 ferrous sulfate 325 mg (65 mg 325 mg PO DAILY #30 tabs 10/29/21 iron) tablet pantoprazole 40 mg tablet,delayed 40 mg PO DAILY@0630 #30 tabs 10/29/21 release (Protonix) colchicine 0.6 mg tablet 0.6 mg PO DAILY #10 tabs 12/30/21 Allergies Allergy/AdvReac Type Severity Reaction Status Date / Time aspirin [ASPIRIN] Allergy Intermediate SWELLING/ITCHING, Verified 11/15/21 09:50 rash Penicillins Allergy Intermediate ITCHING Verified 11/15/21 09:50 vancomycin [VANCOMYCIN] AdvReac Intermediate RED MAN Verified 11/15/21 09:50 SYNDROME PER MD Review of Systems Review of Systems: Constitutional: No weight loss, fever, chills, weakness or fatigue. Skin: No rash or itching. Cardiovascular: No chest pain, chest pressure or chest discomfort. No palpitations or pedal edema. Respiratory: No shortness of breath, cough or sputum production. Gastrointestinal: No , nausea, vomiting or diarrhea. No abdominal pain Genitourinary: No burning micturition. No urinary frequency or incontinence. Musculoskeletal: No muscle pain, back pain. Positive foot pain Psychiatric: No depression or anxiety. Yes all other systems are reviewed and are negative PMFSH Past Medical History Attestation statement: The following information was validated with the patient. Source: old records reviewed Medical History Anemia Asthma Biliary dyskinesia Chronic myeloproliferative disease CKD stage 3 due to type 2 diabetes mellitus COVID-19 vaccine series completed Diabetes type 2, controlled Diabetic nephropathy Diabetic neuropathy associated with type 2 diabetes mellitus Dyslipidemia GERD (gastroesophageal reflux disease) Hiatal hernia History of depression History of gastritis History of myelofibrosis Hypertension Migraines Morbid obesity due to excess calories Obesity due to excess calories BERNIE (obstructive sleep apnea) Osteoarthritis of knees, bilateral Osteoarthritis of wrist Upper abdominal pain Vitamin B12 deficiency Surgical History Bone marrow replaced by transplant H/O stem cell transplant History of partial hysterectomy History of resection of meningioma Hx of breast reduction, elective Hx of colonoscopy Hx of esophagogastroduodenoscopy Family History Family History Father Heart problem HTN (hypertension) Mother Diabetes Family/Other Diabetes HTN (hypertension) Heart problem Sister Cancer Social History Social History Household Members: None Housing: Apartment Are you a primary rn critical care to a significant other at home: No Do you presently have visiting nurse or other home services: Yes Alcohol intake: never Patient Tobacco Use Status: Never used Tobacco Advance Directives: Yes Advance Directives on File: Yes Advance Directives Date on File: 03/24/16 service: No Current occupational status: disabled Physical Exam Vital Signs: Vital Signs: Last Vital Signs Temp 97 F 12/30/21 14:28 Pulse 100 12/30/21 14:28 Resp 19 12/30/21 14:28 BP 146/65 H 12/30/21 14:28 Pulse Ox 98 12/30/21 14:28 O2 Del Method 12/30/21 14:28 BMI result Body Mass Index 43.0 Appearance: Alert.?Oriented to person, place and time. No acute distress.?Normal affect. Eyes: Pupils equal, round and reactive to light.? ENT: Pharynx normal.?? Neck: Normal inspection.? Neck supple.?? CVS: Heart sounds normal. Normal heart rate and rhythm.? Pulses normal.?? Respiratory: No respiratory distress.? Lung sounds clear to auscultation bilaterally?? Abdomen: Soft and non-tender. Normoactive bowel sounds. No pulsatile mass.?? Skin: Skin warm and dry.? Normal skin color.? Normal skin turgor.?? Extremities: Localized swelling to left foot. Mild calf tenderness upon palpation. Erythema to the medial 1st MTP on the left. Palpable 2+ DP/PT pulse bilaterally. Neuro: Moves all extremities spontaneously. Sensation intact bilaterally. No focal neuro deficits. Ambulates with antalgic gait Course Course Course Narrative: Patient is a 56-year-old female with a past medical history of anemia, asthma, chronic myeloproliferative disease, CKD stage 3, type 2 diabetes, dyslipidemia, GERD, myelofibrosis, hypertension, obesity, obstructive sleep apnea, and osteoarthritis. She presents emergency department today for evaluation of left foot pain. Onset a few weeks ago, severe increase in pain since last night, swelling and erythema. He is overall well appearing, but does seem uncomfortable. Vital signs are stable, no tachycardia, tachypnea, hypoxia, or fever. Physical exam does not seem consistent with cellulitis or septic arthritis, no wounds or lesions. There is mild erythema at 1st MTP joint, and localized swelling to the foot with pain radiating up her leg and calf tenderness. Will obtain CBC, CMP, inflammatory markers and uric acid, in addition to ultrasound of the left lower extremity to exclude DVT. XR reveals from triage reveals no acute fracture or dislocation, there is however presence of mild osteoarthritis to the first MTP joint Reevaluation(s) Reevaluation #1: Ultrasound of left lower extremity reveals no DVT. CBC is overall unremarkable from baseline. CMP consistent with baseline. CRP is elevated at 3.44, and uric acid level is elevated at 10.9, suspect that pain to the left foot/great toe secondary to gout. Would not advise treatment with oral corticosteroids as she is a diabetic, currently on metformin no insulin, and on Jakafi due to myelofibrosis, therefore would not want to further cause immune suppression. Reviewed plan of care with ED attending Dr. Yepez, patient received a single dose of Decadron while in the emergency department, in addition to colchicine. Will provide prescription for colchicine. Additionally provided a postop shoe to alleviate pressure off of the distal foot. Advised outpatient follow-up with primary care provider within 3 days, for close monitoring of uric acid levels and symptom management. Reviewed worsening signs and symptoms return back to the emergency department for. All questions were answered, and patient was discharged home in stable condition. MDM - Extremity (Nontraumatic) Medical Records Attestation: I reviewed the patient's medical records. Lab Data Attestation: I reviewed the patient's lab results. Result diagrams: 12/30/21 16:27 12/30/21 16:27 Labs: Lab Results 12/30/21 12/30/21 12/30/21 Range/Units 16:27 16: 16:27 WBC 8.1 (4.8-10.8) X10*3/uL RBC 3.15 L (4.20-5.50) X10*6/uL Hgb 8.7 L (12.0-16.0) g/dl Hct 26.8 L (37.0-47.0) % MCV 85.1 (80.0-98.0) fL MCH 27.6 (27.0-33.0) pg MCHC 32.5 (31.0-35.0) g/dl RDW 15.5 (11.0-16.0) % Plt Count 302 (160-400) X10*3/uL MPV 8.8 L (9.4-12.3) fL Immature Gran % (Auto) 1.1 H (0.0-0.4) % Neut % (Auto) 67.9 (45-73) % Lymph % (Auto) 22.7 (20-40) % [place] % (Auto) 6.6 (2-11) % Eos % (Auto) 1.6 (0-4) % Baso % (Auto) 0.1 (0-2) % Lymph # (Auto) 1.9 (1.2-4.9) X10*3/uL [place] # (Auto) 0.5 (0.1-1.2) X10*3/uL Eos # (Auto) 0.1 (0.0-0.4) X10*3/uL Baso # (Auto) 0.0 (0.0-0.2) X10*3/uL Abs Immat Gran (auto) 0.09 H (0.00-0.03) X10*3/uL Absolute Neuts (auto) 5.5 (2.0-8.3) x10*3/uL Absolute Nucleated RBC 0.000 (0.0-0.012) X10*3/uL Nucleated RBC % (auto) 0.0 (0.0-0.2) /100WBC Smear Tech's Comments VERIFIED ESR 109 H (0-20) MM/HR Sodium 140 (135-145) mmol/L Potassium 4.5 (3.3-5.1) mmol/L Chloride 104 (96-108) mmol/L Carbon Dioxide 20 L (22-29) mmol/L Anion Gap 21 H (12-20) BUN 18 H (9-16) mg/dL Creatinine 1.42 H (0.5-1.4) mg/dL Estim Creat Clear Calc 57.2 Estimated GFR 38 Random Glucose 118 H (60-115) mg/dL Uric Acid 10.9 H (2.4-5.7) mg/dL Calcium 8.8 (8.4-10.2) mg/dL Total Bilirubin 0.4 (0.0-1.0) mg/dL AST 18 (5-31) U/L ALT 19 (0-31) U/L Alkaline Phosphatase 98 (39-117) U/L C-Reactive Protein 3.44 H (< or = 0.50) mg/dL Total Protein 7.5 (6.5-8.0) g/dL Albumin 4.1 (3.5-5.0) g/dL Imaging Data XR foot: Radiologist's impression: XR/XR foot LT min 3V IMPRESSION: ? 1. No acute fracture or dislocation. 2. Mild first MTP joint osteoarthritis. 3. Healed fractures of the medial and lateral malleoli. Venous US: Radiologist's impression: US/US venous duplex LE LT IMPRESSION: No DVT demonstrated in the left lower extremity. Discharge Plan Discharge Clinical Impression: Gout Patient Disposition: Home, Self-Care Instructions: Low Purine Diet (ED), Gout (ED) Additional Instructions: As we discussed, the x-ray of your left foot was overall normal. There was evidence of mild osteoarthritis at the base of your first toe. You were found to have elevated uric acid level, 10.9, the pain to your toe is most likely due to a condition called gout. For this you were given a single dose of an oral steroid and colchicine while in the emergency department. You have been given a prescription for colchicine to bulk picker from the pharmacy, this is to take once daily starting tomorrow. Follow low purine diet, and stay well hydrated. Please contact your primary care provider tomorrow to arrange for a follow-up visit within 3 days for close monitoring of your symptoms and levels. You may return to the emergency department with any new or worsening symptoms or concerns. Prescriptions: New colchicine 0.6 mg tablet 0.6 mg PO DAILY Qty: 10 0RF No Action Januvia 50 mg tablet 50 mg PO DAILY 90 Days Qty: 90 2RF Rx Instructions: Dose reduced based on GFR citalopram 40 mg Tablet 40 mg PO DAILY atorvastatin 20 mg Tablet 20 mg PO BEDTIME tamsulosin 0.4 mg Capsule 0.4 mg PO DAILY@1700 lidocaine [Lidoderm] 5 % Adhesive Patch,Medicated 1 patch TOPICAL DAILY Rx Instructions: leave on most painful area for up to 12 hrs fluticasone propionate 50 mcg/actuation [place],Suspension 2 spray INTRANASAL DAILY PRN (Reason: Allergy Symptoms) Rx Instructions: administer into each nostril loratadine 10 mg Tablet 10 mg PO DAILY PRN (Reason: Allergy Symptoms) diclofenac sodium 1 % Gel 2 g TOPICAL BID Rx Instructions: apply to single elbow, wrist or hand; for hand includes palm/fingers/back of hand metformin 500 mg tablet 500 mg PO BIDWM albuterol sulfate 2.5 mg /3 mL (0.083 %) solution for nebulization 2.5 mg inhalation TID albuterol sulfate [ProAir HFA] 90 mcg/actuation Hfa Aerosol Inhaler 2 puff INHALATION Q4-6H PRN (Reason: Shortness Of Breath) Jakafi 5 mg Tablet 5 mg PO BID amlodipine [Norvasc] 5 mg tablet 5 mg PO DAILY Qty: 30 0RF tramadol 50 mg tablet 50 mg PO QID PRN (Reason: Pain (Scale Score 1-3)) acetaminophen [Tylenol Extra Strength] 500 mg tablet 1,000 mg PO TID PRN (Reason: Pain (Scale Score 4-6)) cholecalciferol (vitamin D3) 25 mcg (1,000 unit) capsule 25 mcg PO DAILY tolterodine [Detrol LA] 4 mg capsule,extended release 24hr 4 mg PO BEDTIME mirtazapine 15 mg tablet 15 mg PO BEDTIME PRN (Reason: Sleep) pantoprazole [Protonix] 40 mg tablet,delayed release (DR/EC) 40 mg PO DAILY@0630 Qty: 30 6RF famotidine [Pepcid] 40 mg tablet 40 mg PO BEDTIME 30 Days Qty: 30 6RF ferrous sulfate 325 mg (65 mg iron) tablet 325 mg PO DAILY Qty: 30 6RF Interventions: ED Discharge Assessment Last Done: 12/30/21 18:26 Discharge Date/Time: 12/30/21 18:27
[2021-12-30 16:46] LABS: Eosinophils Absolute Auto 0.1 X10*3/uL (0.0-0.4); Eosinophils Percent Auto 1.6 % (0-4); Hemoglobin 8.7 g/dl (12.0-16.0); PLT CLUMP 1; SCAN SMEAR FLAG 1
[2021-12-30 16:48] LABS: Basophils Percent Auto 0.1 % (0-2); Hematocrit 26.8 % (37.0-47.0); Imm Gran Abs Auto 0.09 X10*3/uL (0.00-0.03); Imm Gran Pct Auto 1.1 % (0.0-0.4); Lymphocytes Absolute Auto 1.9 X10*3/uL (1.2-4.9); Lymphocytes Percent Auto 22.7 % (20-40); MANUAL DIFF FLAG SCAN; Mean Corpuscular HGB Conc 32.5 g/dl (31.0-35.0); Mean Corpuscular Hemoglobin 27.6 pg (27.0-33.0); Mean Corpuscular Volume 85.1 fL (80.0-98.0); Mean Platelet Volume 8.8 fL (9.4-12.3); Monocytes Absolute Auto 0.5 X10*3/uL (0.1-1.2); Monocytes Percent Auto 6.6 % (2-11); Neutrophils Absolute Auto 5.5 x10*3/uL (2.0-8.3); Neutrophils Percent Auto 67.9 % (45-73); Red Blood Count 3.15 X10*6/uL (4.20-5.50); Red Cell Distribution Width 15.5 % (11.0-16.0)
[2021-12-30 16:56] LABS: Alanine Aminotransferase 19 U/L (0-31); Albumin Level 4.1 g/dL (3.5-5.0); Alkaline Phosphatase 98 U/L (39-117); Anion Gap 21 (12-20); Aspartate Amino Transferase 18 U/L (5-31); Bilirubin Total 0.4 mg/dL (0.0-1.0); Blood Urea Nitrogen 18 mg/dL (9-16); C Reactive Protein 3.44 mg/dL (< or = 0.50); Calcium 8.8 mg/dL (8.4-10.2); Carbon Dioxide 20 mmol/L (22-29); Chloride 104 mmol/L (96-108); Creatinine Clr Calc Pharmacy 57.2; Estimated Glomerular Filt Rate 38; Glucose Random 118 mg/dL (60-115); Potassium 4.5 mmol/L (3.3-5.1); Sodium 140 mmol/L (135-145); Total Protein 7.5 g/dL (6.5-8.0); Uric Acid 10.9 mg/dL (2.4-5.7)
[2021-12-30 17:13] LABS: Platelet Count 302 X10*3/uL (160-400); White Blood Count 8.1 X10*3/uL (4.8-10.8)
[2021-12-30 17:17] LABS: SLIDE REVIEW VERIFIED
[2021-12-30 18:05] LABS: Erythrocyte Sedimentation Rate 109 MM/HR (0-20)
[2021-12-30] MEDS: Colchicine 0.6 MG TABLET PO (18:23)
[2021-12-30] MEDS: dexAMETHasone 6 MG TABLET PO (18:23)
== END 2021-12-30 18:27 | disposition home or self-care (01) ==
PROVIDERS: Nurse Practitioner Family; Emergency Provider Emergency Medicine; PCP Internal Medicine
DX: M10.9 Gout, unspecified (principal); R60.0 Localized edema; M79.672 Pain in left foot; Z79.899 Other long term (current) drug therapy
CPT/HCPCS: 36415; 73630; 80053; 84550; 85025; 85652; 86140; 93971; 99283; J8540

== ENCOUNTER → 2022-01-09 13:24 | Outpatient (BNVA) | payer MEDICAID, SELFPAY | PROVIDERS: PCP Registered Nurse; Visit Provider Dietitian, Registered | DX: E11.21 Type 2 diabetes mellitus with diabetic nephropathy (principal) | CPT/HCPCS: 97803 ==

== ENCOUNTER 2022-01-24 11:30 | Outpatient (REF) | payer MEDICAID, SELFPAY ==
[2022-01-24 13:05] LABS: Appearance Urine Clear; Color Urine Yellow; Glucose Urine UA Negative (Negative); Leukocyte Esterase Urine Small (1+) (Negative); Nitrite Urine Negative (Negative); Specific Gravity - Urine 1.015 (1.005-1.025); UMIC TRIGGER UA YES; Urine Blood Moderate (2+) (Negative); Urine Ketones Negative (Negative); Urine Protein 100 (2+) mg/dL (Neg-Trace)
[2022-01-24 13:18] LABS: Bacteria Urine None Seen (None Seen); Hyaline Casts Urine 0-2 /LPF (0-2); RBC Urine 0-2 /HPF (0-2); WBC Urine 0-5 /HPF (0-5)
[2022-01-24 13:34] LABS: Creatinine Urine 145.24 mg/dL
== END 2022-01-24 11:31 | disposition home or self-care (01) ==
LOC: HO.LAB 11:30
PROVIDERS: Visit Provider Internal Medicine Nephrology
DX: I12.9 Hypertensive chronic kidney disease with stage 1 through stage 4 chronic kidney disease, or unspecified chronic kidney disease (principal); N18.32 Chronic kidney disease, stage 3b; E11.22 Type 2 diabetes mellitus with diabetic chronic kidney disease; E11.21 Type 2 diabetes mellitus with diabetic nephropathy; R80.1 Persistent proteinuria, unspecified
CPT/HCPCS: 81001; 82043

== ENCOUNTER 2022-01-26 13:03 | Emergency (ER) | payer MEDICAID, SELFPAY ==
[2022-01-26 13:57] VITALS: BP 166/72; PULSE 85; RESP 16; TEMP 35.9; O2SAT 98; BMI 38.7
[2022-01-26 14:55] LABS: Appearance Urine Clear; Color Urine Yellow; Glucose Urine UA Negative (Negative); Leukocyte Esterase Urine Trace (Negative); Nitrite Urine Negative (Negative); PH 5.5 (5.0-9.0); Specific Gravity - Urine 1.015 (1.005-1.025); UMIC TRIGGER UACC YES; Urine Blood Moderate (2+) (Negative); Urine Ketones Negative (Negative); Urine Protein 100 (2+) mg/dL (Neg-Trace)
[2022-01-26 14:56] LABS: MANUAL DIFF FLAG NO
[2022-01-26 14:58] LABS: Eosinophils Absolute Auto 0.1 X10*3/uL (0.0-0.4); Eosinophils Percent Auto 1.8 % (0-4); Hematocrit 30.4 % (37.0-47.0); Hemoglobin 9.8 g/dl (12.0-16.0); Imm Gran Abs Auto 0.03 X10*3/uL (0.00-0.03); Imm Gran Pct Auto 0.4 % (0.0-0.4); Lymphocytes Absolute Auto 1.7 X10*3/uL (1.2-4.9); Lymphocytes Percent Auto 25.4 % (20-40); Mean Corpuscular HGB Conc 32.2 g/dl (31.0-35.0); Mean Corpuscular Hemoglobin 27.1 pg (27.0-33.0); Mean Corpuscular Volume 84.2 fL (80.0-98.0); Mean Platelet Volume 8.7 fL (9.4-12.3); Monocytes Absolute Auto 0.5 X10*3/uL (0.1-1.2); Monocytes Percent Auto 6.7 % (2-11); Neutrophils Absolute Auto 4.4 x10*3/uL (2.0-8.3); Neutrophils Percent Auto 65.7 % (45-73); Platelet Count 248 X10*3/uL (160-400); Red Blood Count 3.61 X10*6/uL (4.20-5.50); White Blood Count 6.7 X10*3/uL (4.8-10.8)
[2022-01-26 15:03] LABS: Bacteria Urine None Seen (None Seen); WBC Urine 0-5 /HPF (0-5)
[2022-01-26 15:16] LABS: Alanine Aminotransferase 26 U/L (0-31); Albumin Level 4.4 g/dL (3.5-5.0); Alkaline Phosphatase 95 U/L (39-117); Anion Gap 20 (12-20); Aspartate Amino Transferase 21 U/L (5-31); Bilirubin Direct < 0.2 mg/dL (0.0-0.5); Bilirubin Total 0.2 mg/dL (0.0-1.0); Blood Urea Nitrogen 16 mg/dL (9-16); Calcium 8.8 mg/dL (8.4-10.2); Carbon Dioxide 21 mmol/L (22-29); Chloride 107 mmol/L (96-108); Creatinine Clr Calc Pharmacy 56.5; Estimated Glomerular Filt Rate 39; Glucose Random 143 mg/dL (60-115); Lipase 30 U/L (8-78); Potassium 4.5 mmol/L (3.3-5.1); Sodium 143 mmol/L (135-145); Total Protein 7.7 g/dL (6.5-8.0)
[2022-01-26] MEDS: PHENobarb/Hyoscy/Atropine/Scop 10 ML ELIXIR PO (15:30)
[2022-01-26] MEDS: Lidocaine HCl Viscous 2 % 15 ML SOLUTION MUCOUS MEM (15:30)
[2022-01-26] MEDS: Magnesium Hydrox/Alum Hydrox 30 ML ORAL.SUSP PO (15:30)
--- NOTE | 2022-01-26 16:32 | ED.NAVMDI ---
HPI - Nausea/Vomiting/Diarrhea General Chief complaint: Nausea/Vomiting/Diarrhea Stated complaint: stomach pain x3 days Time Seen by Provider: 01/26/22 14:57 Source: patient Mode of arrival: ambulatory Limitations: no limitations History of Present Illness HPI Narrative: 48-year-old female with history of morbid obesity, gastritis, biliary dyskinesia, CKD, DM on insulin with neuropathy, chronic anemia, asthma, BERNIE, GERD, myeloproliferative disorder, chronic abdominal pain who presents to the ER for evaluation of 3 days of generalized abdominal pain and nonbloody diarrhea. She reports a few episodes day of what was green loose stools and is now foamy brown. Last BM was earlier this morning. She endorses nausea but no vomiting. No fever or chills. Similar pain earlier this summer where she presented here, had an unremarkable CT scan. No known sick contacts and denies any possibility of food bourne illness. MD elicited complaint: nausea, diarrhea and abdominal pain Onset (ago): day(s) (3) Description of diarrhea: semi-solid Associated nausea: Yes Associated abdominal pain: Yes Location of pain: diffuse Pain consistency: intermittent Severity: moderate Quality: cramping Exacerbating factors: eating Relieving factors: none Associated symptoms: loss of appetite, malaise and nausea/vomiting Related Data Home Medications Medication Instructions Recorded Confirmed citalopram 40 mg tablet 40 mg PO DAILY 02/15/20 11/15/21 cholecalciferol (vitamin D3) 25 25 mcg PO DAILY 02/16/20 11/15/21 mcg (1,000 unit) capsule acetaminophen 500 mg tablet 1,000 mg PO TID PRN Pain (Scale 07/10/20 11/15/21 (Tylenol Extra Strength) Score 4-6) tramadol 50 mg tablet 50 mg PO QID PRN Pain (Scale Score 07/10/20 11/15/21 1-3) mirtazapine 15 mg tablet 15 mg PO BEDTIME PRN Sleep 11/28/20 11/15/21 tolterodine 4 mg capsule,extended 4 mg PO BEDTIME 11/28/20 11/15/21 release 24 hr (Detrol LA) albuterol sulfate 2.5 mg/3 mL 2.5 mg inhalation TID 10/07/21 11/15/21 (0.083 %) solution for nebulization albuterol sulfate 90 mcg/actuation 2 puff inhalation Q4-6H PRN 10/07/21 11/15/21 aerosol inhaler (ProAir HFA) Shortness Of Breath atorvastatin 20 mg tablet 20 mg PO BEDTIME 10/07/21 11/15/21 diclofenac sodium 1 % topical gel 2 g topical BID 10/07/21 11/15/21 fluticasone propionate 50 2 spray intranasal DAILY PRN 10/07/21 11/15/21 mcg/actuation nasal Allergy Symptoms spray,suspension lidocaine 5 % topical patch 1 patch topical DAILY 10/07/21 11/15/21 (Lidoderm) loratadine 10 mg tablet 10 mg PO DAILY PRN Allergy Symptoms 10/07/21 11/15/21 ruxolitinib 5 mg tablet (Jakafi) 5 mg PO BID 10/07/21 11/15/21 tamsulosin 0.4 mg capsule 0.4 mg PO DAILY@1700 10/07/21 11/15/21 Previous Rx's Medication Instructions Recorded amlodipine 5 mg tablet (Norvasc) 5 mg PO DAILY #30 tabs 10/08/21 famotidine 40 mg tablet (Pepcid) 40 mg PO BEDTIME 30 days #30 tabs 10/29/21 ferrous sulfate 325 mg (65 mg 325 mg PO DAILY #30 tabs 10/29/21 iron) tablet pantoprazole 40 mg tablet,delayed 40 mg PO DAILY@0630 #30 tabs 10/29/21 release (Protonix) colchicine 0.6 mg tablet 0.6 mg PO DAILY #10 tabs 12/30/21 metformin 500 mg tablet 500 mg PO BIDWM #60 tabs 01/18/22 sitagliptin 50 mg tablet (Januvia) 50 mg PO DAILY 90 days #90 tabs 01/18/22 cefuroxime axetil 250 mg tablet 250 mg PO BID 7 days #14 tabs 01/26/22 loperamide 2 mg capsule (Imodium 2 mg PO Q6H PRN loose stool #14 01/26/22 A-D) caps Allergies Allergy/AdvReac Type Severity Reaction Status Date / Time aspirin [ASPIRIN] Allergy Intermediate SWELLING/ITCHING, Verified 11/15/21 09:50 rash Penicillins Allergy Intermediate ITCHING Verified 11/15/21 09:50 vancomycin [VANCOMYCIN] AdvReac Intermediate RED MAN Verified 07/14/22 09:50 SYNDROME PER MD Review of Systems Review of Systems: Constitutional: No Fever, + Chills ENT/Mouth: No sore throat, No Rhinorrhea, No Swallowing Difficulty Cardiovascular: No Chest Pain, No SOB Respiratory: No Cough, No Sputum, No Wheezing, No dyspnea Gastrointestinal: + Nausea, No Vomiting, + Diarrhea, + abdominal Pain, No Hematochezia, No Melena Genitourinary: No Dysuria, +Urinary Frequency, No Hematuria Musculoskeletal: No joint pain, No Myalgias Skin: No Skin Lesions, No rash Neuro: No Weakness, No Numbness, No Dizziness, No Headache Psych: + Anxiety/Panic, No Depression Heme/Lymph: No Bruising, No Lymphadenopathy Endocrine: No Polyuria, No Polydipsia Gastrointestinal: Gastrointestinal: Reports nausea PMFSH Past Medical History Medical History Anemia Asthma Biliary dyskinesia Chronic myeloproliferative disease CKD stage 3 due to type 2 diabetes mellitus COVID-19 vaccine series completed Diabetes type 2, controlled Diabetic nephropathy Diabetic neuropathy associated with type 2 diabetes mellitus Dyslipidemia GERD (gastroesophageal reflux disease) Hiatal hernia History of depression History of gastritis History of myelofibrosis Hypertension Migraines Morbid obesity due to excess calories Obesity due to excess calories BERNIE (obstructive sleep apnea) Osteoarthritis of knees, bilateral Osteoarthritis of wrist Upper abdominal pain Vitamin B12 deficiency Surgical History Bone marrow replaced by transplant H/O stem cell transplant History of partial hysterectomy History of resection of meningioma Hx of breast reduction, elective Hx of colonoscopy Hx of esophagogastroduodenoscopy Family History Family History Father Heart problem HTN (hypertension) Mother Diabetes Family/Other Diabetes HTN (hypertension) Heart problem Sister Cancer Social History Social History Household Members: None Housing: Apartment Are you a primary director of career resources to a significant other at home: No Do you presently have visiting nurse or other home services: Yes Alcohol intake: never Patient Tobacco Use Status: Never used Tobacco Advance Directives: No Advance Directives Information Provided: Yes Advance Directives Date on File: 03/24/16 service: No Current occupational status: disabled Physical Exam Vital Signs: Vital Signs: Last Vital Signs Temp 96.6 F L 01/26/22 13:57 Pulse 85 01/26/22 13:57 Resp 16 01/26/22 13:57 BP 166/72 H 01/26/22 13:57 Pulse Ox 98 01/26/22 13:57 O2 Del Method 01/26/22 13:57 BMI result Body Mass Index 38.7 Appearance: Alert. Oriented X3. No acute distress. Eyes: Pupils equal, round and reactive to light. ENT: Pharynx normal. Neck: Normal inspection. Neck supple. CVS: Normal heart rate and rhythm. Pulses normal. Respiratory: No respiratory distress. Breath sounds normal. Abdomen: Morbidly obese, soft with mild epigastric tenderness, normal +BS x4 Skin: Skin warm and dry. Normal skin color. Normal skin turgor. No rashes. Extremities: No lower extremity edema. Neuro: Oriented X 3. No motor deficit. No sensory deficit. Course Course Course Narrative: 56-year-old female with multiple medical problems presents to the ER for evaluation of 3 days of abdominal pain and nonbloody diarrhea. She reports her pain starts in her epigastric area and then radiates diffusely, it comes and goes. She has nausea but no vomiting. Her last BM was this morning. Labs show improvement in her chronic anemia. No leukocytosis. Her LFTs are normal. Her lipase is normal. She has stable CKD. Most likely an exacerbation of her gastritis, possible gastroenteritis. Will give her a GI cocktail and reassess. Reevaluation(s) Reevaluation #1: Urinalysis is consistent with UTI. Will empirically treat given her urinary frequency. She feels improved after the GI cocktail. At this time she is stable for discharge home with anti diarrhea medication as well as antibiotics for UTI. She will follow-up with her PCP. Recommend following back up with GI as well. Stable for DC home. Patient agrees with plan. MDM - Nausea/Vomiting/Diarrhea Lab Data Result diagrams: 01/26/22 14:50 01/26/22 14:50 Labs: Lab Results 01/26/22 01/26/22 01/26/22 Range/Units 14:45 14:50 14:50 WBC 6.7 (4.8-10.8) X10*3/uL RBC 3.61 L (4.20-5.50) X10*6/uL Hgb 9.8 L (12.0-16.0) g/dl Hct 30.4 L (37.0-47.0) % MCV 84.2 (80.0-98.0) fL MCH 27.1 (27.0-33.0) pg MCHC 32.2 (31.0-35.0) g/dl RDW 15.0 (11.0-16.0) % Plt Count 248 (160-400) X10*3/uL MPV 8.7 L (9.4-12.3) fL Immature Gran % (Auto) 0.4 (0.0-0.4) % Neut % (Auto) 65.7 (45-73) % Lymph % (Auto) 25.4 (20-40) % Gonzales % (Auto) 6.7 (2-11) % Eos % (Auto) 1.8 (0-4) % Baso % (Auto) 0.0 (0-2) % Lymph # (Auto) 1.7 (1.2-4.9) X10*3/uL [place] # (Auto) 0.5 (0.1-1.2) X10*3/uL Eos # (Auto) 0.1 (0.0-0.4) X10*3/uL Baso # (Auto) 0.0 (0.0-0.2) X10*3/uL Abs Immat Gran (auto) 0.03 (0.00-0.03) X10*3/uL Absolute Neuts (auto) 4.4 (2.0-8.3) x10*3/uL Absolute Nucleated RBC 0.000 (0.0-0.012) X10*3/uL Nucleated RBC % (auto) 0.0 (0.0-0.2) /100WBC Sodium 143 (135-145) mmol/L Potassium 4.5 (3.3-5.1) mmol/L Chloride 107 (96-108) mmol/L Carbon Dioxide 21 L (22-29) mmol/L Anion Gap 20 (12-20) BUN 16 (9-16) mg/dL Creatinine 1.40 (0.5-1.4) mg/dL Estim Creat Clear Calc 56.5 Estimated GFR 39 Random Glucose 143 H (60-115) mg/dL Calcium 8.8 (8.4-10.2) mg/dL Total Bilirubin 0.2 (0.0-1.0) mg/dL Direct Bilirubin < 0.2 (0.0-0.5) mg/dL AST 21 (5-31) U/L ALT 26 (0-31) U/L Alkaline Phosphatase 95 (39-117) U/L Total Protein 7.7 (6.5-8.0) g/dL Albumin 4.4 (3.5-5.0) g/dL Lipase 30 (8-78) U/L Urine Color Yellow Urine Appearance Clear Urine pH 5.5 (5.0-9.0) Ur Specific [place] 1.015 (1.005-1.025) Urine Protein 100 (2+) H (Neg-Trace) mg/dL Urine Glucose (UA) Negative (Negative) mg/dL Urine Ketones Negative (Negative) mg/dL Urine Blood Moderate (2+) H (Negative) Urine Nitrite Negative (Negative) Ur Leukocyte Esterase Trace H (Negative) Urine RBC 6-10 H (0-2) /HPF Urine WBC 0-5 (0-5) /HPF Ur Squamous Epith Cells 3-5 (0-2) /HPF Urine Bacteria None Seen (None Seen) Hyaline Casts 3-5 (0-2) /LPF Discharge Plan Discharge Clinical Impression: Gastritis, Diarrhea Patient Disposition: Home, Self-Care Instructions: Gastritis (ED), Diet for Stomach Ulcers and Gastritis (ED), Acute Diarrhea (ED) Additional Instructions: Take the prescribed antibiotic for UTI. Complete the entire course. Drink plenty of water. Take the prescribed loperamide as needed for loose stool and diarrhea. Stick to a bland diet while you are not feeling well. Avoid spicy, greasy foods. Recommend following up with GI doctor if no improvement in your symptoms. If you develop new or worsening symptoms call 911 or come back to the ER for further evaluation. [place] el antibi?casi recetado para la UTI. Completa todo el curso. Beber abundante agua. [place] la loperamida recetada seg?n sea necesario para las heces blandas y la diarrea. Sigue rosario dieta blanda mientras no te sientas josh. Evite los alimentos picantes y grasosos. Recomiende hacer un seguimiento con un m?dico GI si no mejora eden s?ntomas. Si desarrolla s?ntomas nuevos o que empeoran, llame al 911 o regrese a la mei de emergencias para rosario evaluaci?n adicional. Prescriptions: New loperamide [Imodium A-D] 2 mg capsule 2 mg PO Q6H PRN (Reason: loose stool) Qty: 14 0RF cefuroxime axetil 250 mg tablet 250 mg PO BID 7 Days Qty: 14 0RF No Action metformin 500 mg tablet 500 mg PO BIDWM Qty: 60 4RF Januvia 50 mg tablet 50 mg PO DAILY 90 Days Qty: 90 0RF Rx Instructions: Dose reduced based on GFR citalopram 40 mg Tablet 40 mg PO DAILY atorvastatin 20 mg Tablet 20 mg PO BEDTIME tamsulosin 0.4 mg Capsule 0.4 mg PO DAILY@1700 lidocaine [Lidoderm] 5 % Adhesive Patch,Medicated 1 patch TOPICAL DAILY Rx Instructions: leave on most painful area for up to 12 hrs fluticasone propionate 50 mcg/actuation [place]ie[place],Suspension 2 spray INTRANASAL DAILY PRN (Reason: Allergy Symptoms) Rx Instructions: administer into each nostril loratadine 10 mg Tablet 10 mg PO DAILY PRN (Reason: Allergy Symptoms) diclofenac sodium 1 % Gel 2 g TOPICAL BID Rx Instructions: apply to single elbow, wrist or hand; for hand includes palm/fingers/back of hand albuterol sulfate 2.5 mg /3 mL (0.083 %) solution for nebulization 2.5 mg inhalation TID albuterol sulfate [ProAir HFA] 90 mcg/actuation Hfa Aerosol Inhaler 2 puff INHALATION Q4-6H PRN (Reason: Shortness Of Breath) Jakafi 5 mg Tablet 5 mg PO BID amlodipine [Norvasc] 5 mg tablet 5 mg PO DAILY Qty: 30 0RF colchicine 0.6 mg tablet 0.6 mg PO DAILY Qty: 10 0RF tramadol 50 mg tablet 50 mg PO QID PRN (Reason: Pain (Scale Score 1-3)) acetaminophen [Tylenol Extra Strength] 500 mg tablet 1,000 mg PO TID PRN (Reason: Pain (Scale Score 4-6)) cholecalciferol (vitamin D3) 25 mcg (1,000 unit) capsule 25 mcg PO DAILY tolterodine [Detrol LA] 4 mg capsule,extended release 24hr 4 mg PO BEDTIME mirtazapine 15 mg tablet 15 mg PO BEDTIME PRN (Reason: Sleep) pantoprazole [Protonix] 40 mg tablet,delayed release (DR/EC) 40 mg PO DAILY@0630 Qty: 30 6RF famotidine [Pepcid] 40 mg tablet 40 mg PO BEDTIME 30 Days Qty: 30 6RF ferrous sulfate 325 mg (65 mg iron) tablet 325 mg PO DAILY Qty: 30 6RF Referrals: [facility] [place] [facility] [Provider Group] Print Language: Ug[place]
== END 2022-01-26 18:00 | disposition home or self-care (01) ==
PROVIDERS: Emergency Provider Emergency Medicine; PCP Internal Medicine
DX: K29.70 Gastritis, unspecified, without bleeding (principal); R11.2 Nausea with vomiting, unspecified; R19.7 Diarrhea, unspecified; E11.22 Type 2 diabetes mellitus with diabetic chronic kidney disease; I12.9 Hypertensive chronic kidney disease with stage 1 through stage 4 chronic kidney disease, or unspecified chronic kidney disease; N18.30 Chronic kidney disease, stage 3 unspecified; E78.5 Hyperlipidemia, unspecified; E66.01 Morbid (severe) obesity due to excess calories; Z68.38 Body mass index [BMI] 38.0-38.9, adult; Z79.84 Long term (current) use of oral hypoglycemic drugs; Z79.02 Long term (current) use of antithrombotics/antiplatelets; Z79.899 Other long term (current) drug therapy
CPT/HCPCS: 36415; 80048; 80076; 81001; 83690; 85025; 99283

== ENCOUNTER 2022-01-30 12:38 | Outpatient (REF) | payer MEDICAID, SELFPAY | END 2022-01-30 12:39 | disposition home or self-care (01) | LOC: HO.MDS 12:38 | PROVIDERS: Visit Provider Internal Medicine Medical Oncology | DX: D50.9 Iron deficiency anemia, unspecified (principal) | CPT/HCPCS: 96365; J1756 ==

== ENCOUNTER 2022-02-06 12:12 | Outpatient (REF) | payer MEDICAID, SELFPAY | END 2022-02-06 12:13 | disposition home or self-care (01) | LOC: HO.MDS 12:12 | PROVIDERS: Visit Provider Internal Medicine Medical Oncology | DX: D50.9 Iron deficiency anemia, unspecified (principal) | CPT/HCPCS: 96365; J1756 ==

== ENCOUNTER 2022-02-13 12:54 | Outpatient (REF) | payer MEDICAID, SELFPAY | END 2022-02-13 12:55 | disposition home or self-care (01) | LOC: HO.MDS 12:54 | PROVIDERS: Visit Provider Internal Medicine Medical Oncology | DX: D50.9 Iron deficiency anemia, unspecified (principal); Z94.81 Bone marrow transplant status; Z94.84 Stem cells transplant status | CPT/HCPCS: 96365; J1756 ==

== ENCOUNTER 2022-02-19 12:23 | Emergency (ER) | payer MEDICAID, SELFPAY ==
[2022-02-19 12:47] VITALS: BP 150/82; PULSE 88; RESP 18; TEMP 36.6; O2SAT 98; BMI 40.2
--- NOTE | 2022-02-19 14:57 | ED.GENADULT ---
HPI - General Adult General Chief complaint: Extremity Injury, Lower Stated complaint: L foot swollen, diabetic Time Seen by Provider: 02/19/22 14:48 Source: patient Mode of arrival: ambulatory Limitations: no limitations History of Present Illness HPI narrative: 56 year old female history of gout presents to the emergency department with complaints of sudden-onset left great toe pain, pain started 3 days ago and has been progressively worsening. Patient reports pain with ambulation and weight-bearing. She reports pains better at rest. Patient tells me she was seen here few months ago for something similar she was given a steroid and an unknown medication which made the pain better. Patient tells me the 02/11 pain that is throbbing. She tells me her big toe is red and swollen. No history of PE or DVT, no swelling to lower extremities denies chest pain, shortness of breath, fevers, chills, nausea, vomiting, numbness, tingling. Related Data Home Medications Medication Instructions Recorded Confirmed citalopram 40 mg tablet 40 mg PO DAILY 02/15/20 11/15/21 cholecalciferol (vitamin D3) 25 25 mcg PO DAILY 02/16/20 11/15/21 mcg (1,000 unit) capsule acetaminophen 500 mg tablet 1,000 mg PO TID PRN Pain (Scale 07/10/20 11/15/21 (Tylenol Extra Strength) Score 4-6) tramadol 50 mg tablet 50 mg PO QID PRN Pain (Scale Score 07/10/20 11/15/21 1-3) mirtazapine 15 mg tablet 15 mg PO BEDTIME PRN Sleep 11/28/20 11/15/21 tolterodine 4 mg capsule,extended 4 mg PO BEDTIME 11/28/20 11/15/21 release 24 hr (Detrol LA) albuterol sulfate 2.5 mg/3 mL 2.5 mg inhalation TID 10/07/21 11/15/21 (0.083 %) solution for nebulization albuterol sulfate 90 mcg/actuation 2 puff inhalation Q4-6H PRN 10/07/21 11/15/21 aerosol inhaler (ProAir HFA) Shortness Of Breath atorvastatin 20 mg tablet 20 mg PO BEDTIME 10/07/21 11/15/21 diclofenac sodium 1 % topical gel 2 g topical BID 10/07/21 11/15/21 fluticasone propionate 50 2 spray intranasal DAILY PRN 10/07/21 11/15/21 mcg/actuation nasal Allergy Symptoms spray,suspension lidocaine 5 % topical patch 1 patch topical DAILY 10/07/21 11/15/21 (Lidoderm) loratadine 10 mg tablet 10 mg PO DAILY PRN Allergy Symptoms 10/07/21 11/15/21 ruxolitinib 5 mg tablet (Jakafi) 5 mg PO BID 10/07/21 11/15/21 tamsulosin 0.4 mg capsule 0.4 mg PO DAILY@1700 10/07/21 11/15/21 Previous Rx's Medication Instructions Recorded amlodipine 5 mg tablet (Norvasc) 5 mg PO DAILY #30 tabs 10/08/21 famotidine 40 mg tablet (Pepcid) 40 mg PO BEDTIME 30 days #30 tabs 10/29/21 ferrous sulfate 325 mg (65 mg 325 mg PO DAILY #30 tabs 10/29/21 iron) tablet pantoprazole 40 mg tablet,delayed 40 mg PO DAILY@0630 #30 tabs 10/29/21 release (Protonix) colchicine 0.6 mg tablet 0.6 mg PO DAILY #10 tabs 12/30/21 metformin 500 mg tablet 500 mg PO BIDWM #60 tabs 01/18/22 sitagliptin 50 mg tablet (Januvia) 50 mg PO DAILY 90 days #90 tabs 01/18/22 cefuroxime axetil 250 mg tablet 250 mg PO BID 7 days #14 tabs 01/26/22 loperamide 2 mg capsule (Imodium 2 mg PO Q6H PRN loose stool #14 01/26/22 A-D) caps colchicine 0.6 mg tablet 0.6 mg PO DAILY #10 tabs 02/19/22 prednisone 20 mg tablet 20 mg PO DAILY 5 days #5 tabs 02/19/22 Allergies Allergy/AdvReac Type Severity Reaction Status Date / Time aspirin [ASPIRIN] Allergy Intermediate SWELLING/ITCHING, Verified 11/15/21 09:50 rash Penicillins Allergy Intermediate ITCHING Verified 11/15/21 09:50 vancomycin [VANCOMYCIN] AdvReac Intermediate RED MAN Verified 11/15/21 09:50 SYNDROME PER MD Review of Systems Review of Systems: Constitutional : No Weight loss, No Fever, No Chills, No Fatigue, No Malaise ENT/Mouth : No sore throat, No Rhinorrhea Eyes: No Eye Pain, No Swelling, No Redness Cardiovascular : No Chest Pain, No SOB, No Dyspnea on Exertion, No Orthopnea, No Edema, No Palpitations Respiratory : No Cough, No Sputum, No Wheezing Gastrointestinal : No Nausea, No Vomiting, No Diarrhea, No Constipation, No abdominal Pain, No Hematochezia, No Melena Genitourinary : No Dysuria, No Urinary Frequency, No Hematuria, Musculoskeletal : + joint pain, No Myalgias, + Joint Swelling Skin : No Skin Lesions, No rash Neuro : No Weakness, No Numbness, No Dizziness, No Headache All other systems reviewed and are negative Yes all other systems are reviewed and are negative [facility] Past Medical History Attestation statement: The following information was validated with the patient. Source: old records reviewed and nursing notes reviewed Medical History Anemia Asthma Biliary dyskinesia Chronic myeloproliferative disease CKD stage 3 due to type 2 diabetes mellitus COVID-19 vaccine series completed Diabetes type 2, controlled Diabetic nephropathy Diabetic neuropathy associated with type 2 diabetes mellitus Dyslipidemia GERD (gastroesophageal reflux disease) Hiatal hernia History of depression History of gastritis History of myelofibrosis Hypertension Migraines Morbid obesity due to excess calories Obesity due to excess calories BERNIE (obstructive sleep apnea) Osteoarthritis of knees, bilateral Osteoarthritis of wrist Upper abdominal pain Vitamin B12 deficiency Surgical History Bone marrow replaced by transplant H/O stem cell transplant History of partial hysterectomy History of resection of meningioma Hx of breast reduction, elective Hx of colonoscopy Hx of esophagogastroduodenoscopy Family History Family History Father Heart problem HTN (hypertension) Mother Diabetes Family/Other Diabetes HTN (hypertension) Heart problem Sister Cancer Social History Social History Household Members: None Housing: Apartment Are you a primary direct care specialist to a significant other at home: No Do you presently have visiting nurse or other home services: Yes Alcohol intake: never Patient Tobacco Use Status: Never used Tobacco Advance Directives: No Advance Directives Information Provided: Yes Advance Directives Date on File: 03/24/16 service: No Current occupational status: disabled Physical Exam ED Vital Signs: Vital Signs - 24 hr 02/19/22 12:47 Temperature 98 F Pulse Rate 88 Respiratory Rate 18 Blood Pressure 150/82 H Pulse Oximetry 98 Oxygen Delivery Method Room Air BMI result Body Mass Index 40.2 Vital signs stable Appearance: Alert.? Oriented X3.? No acute distress.? Head: Normocephalic, atraumatic, no step-offs or deformities Eyes: Pupils equal, round and reactive to light.? CVS: Normal heart rate and rhythm.? Pulses normal.? Respiratory: No respiratory distress.? Breath sounds normal.? Abdomen: Soft and nontender. Skin: Skin warm and dry.? Normal skin color.? Normal skin turgor.? Extremities: No lower extremity edema.? No calf ttp, negative Alex bilaterally. 5/5 strength to bilateral upper and lower extremities. Normal sensation to bilateral lower extremity toes. Capillary refill intact to bilateral lower extremities. Patient's left great toe erythematous, warm and tender to the touch. Full range of motion to bilateral great toes,. 2+ dorsalis pedis anterior tibialis and posterior tibialis pulses equal bilateral. Neuro: Oriented X 3.? No motor deficit.? No sensory deficit. CN 2-12 intact Course Reevaluation(s) Reevaluation #1: Uric acid elevated consistent with gout, will discharge patient home on colchicine, prednisone. Advised to return with new or worsening symptoms. Educated on worrisome signs and symptoms and when to return. Comfortable discharge Time: 16:22 Medical Decision Making [facility] Narrative Medical decision making narrative: 1621 56 year old female presents w/ left great toe pain hx of gout feels like typical gout for this [facility] Physical examination with and red, swollen, tender left great toe. Full range of motion. Neurovascularly intact. Likely gout, unlikely septic joint, threatened limb. No signs of DVT or arterial occlusion. Plan at this time is to obtain a uric acid level Medical Records Medical records reviewed: Yes I reviewed the patient's medical records. Lab Data Lab results reviewed: Yes I reviewed the patient's lab results. Labs: Lab Results 02/19/22 Range/Units 15:27 Uric Acid 11.6 H (2.4-5.7) mg/dL Discharge Plan Discharge Clinical Impression: Gout attack Patient Disposition: Home, Self-Care Instructions: Gout (ED) Additional Instructions: Take your medications as prescribed. If you were prescribed antibiotics today, it is important that you take your medication to their entirety, do not skip any doses, do not finish them early. Follow-up with your primary care provider this week. Return to the emergency department with new or worsening symptoms. Such as fevers, chills, chest pain, shortness of breath, nausea, vomiting, dizziness, headache, vision changes, lethargy In case of emergency call 911 Symptoms likely secondary to gout. Prednisone has been sent to your pharmacy, this medication can cause your sugars to go up, if your sugars are high you may need to adjust her insulin dose or medications, if it is too high you need to come into the emergency department for evaluation. Can take ibuprofen every 6 hours, Tylenol every 4 as needed for pain or discomfort. Prescriptions: New colchicine 0.6 mg tablet 0.6 mg PO DAILY Qty: 10 0RF prednisone 20 mg tablet 20 mg PO DAILY 5 Days Qty: 5 0RF No Action metformin 500 mg tablet 500 mg PO BIDWM Qty: 60 4RF Januvia 50 mg tablet 50 mg PO DAILY 90 Days Qty: 90 0RF Rx Instructions: Dose reduced based on GFR citalopram 40 mg Tablet 40 mg PO DAILY atorvastatin 20 mg Tablet 20 mg PO BEDTIME tamsulosin 0.4 mg Capsule 0.4 mg PO DAILY@1700 lidocaine [Lidoderm] 5 % Adhesive Patch,Medicated 1 patch TOPICAL DAILY Rx Instructions: leave on most painful area for up to 12 hrs fluticasone propionate 50 mcg/actuation [place],Suspension 2 spray INTRANASAL DAILY PRN (Reason: Allergy Symptoms) Rx Instructions: administer into each nostril loratadine 10 mg Tablet 10 mg PO DAILY PRN (Reason: Allergy Symptoms) diclofenac sodium 1 % Gel 2 g TOPICAL BID Rx Instructions: apply to single elbow, wrist or hand; for hand includes palm/fingers/back of hand albuterol sulfate 2.5 mg /3 mL (0.083 %) solution for nebulization 2.5 mg inhalation TID albuterol sulfate [ProAir HFA] 90 mcg/actuation Hfa Aerosol Inhaler 2 puff INHALATION Q4-6H PRN (Reason: Shortness Of Breath) Jakafi 5 mg Tablet 5 mg PO BID amlodipine [Norvasc] 5 mg tablet 5 mg PO DAILY Qty: 30 0RF colchicine 0.6 mg tablet 0.6 mg PO DAILY Qty: 10 0RF loperamide [Imodium A-D] 2 mg capsule 2 mg PO Q6H PRN (Reason: loose stool) Qty: 14 0RF cefuroxime axetil 250 mg tablet 250 mg PO BID 7 Days Qty: 14 0RF tramadol 50 mg tablet 50 mg PO QID PRN (Reason: Pain (Scale Score 1-3)) acetaminophen [Tylenol Extra Strength] 500 mg tablet 1,000 mg PO TID PRN (Reason: Pain (Scale Score 4-6)) cholecalciferol (vitamin D3) 25 mcg (1,000 unit) capsule 25 mcg PO DAILY tolterodine [Detrol LA] 4 mg capsule,extended release 24hr 4 mg PO BEDTIME mirtazapine 15 mg tablet 15 mg PO BEDTIME PRN (Reason: Sleep) pantoprazole [Protonix] 40 mg tablet,delayed release (DR/EC) 40 mg PO DAILY@0630 Qty: 30 6RF famotidine [Pepcid] 40 mg tablet 40 mg PO BEDTIME 30 Days Qty: 30 6RF ferrous sulfate 325 mg (65 mg iron) tablet 325 mg PO DAILY Qty: 30 6RF Referrals: Kalpana Baptiste MD [Primary Care Provider] - 2 days Stand Alone Forms: Work/School Release Interventions: ED Discharge Assessment Last Done: 02/19/22 15:58 Discharge Date/Time: 02/19/22 15:59
[2022-02-19] MEDS: dexAMETHasone sod phosphate 10 MG/ML VIAL IVPUSH (15:20)
[2022-02-19] MEDS: Morphine Sulfate Immed Release 15 MG TABLET PO (15:37)
[2022-02-19] MEDS: Acetaminophen 325 MG TABLET 650 MG PO (15:38)
[2022-02-19 15:55] LABS: Uric Acid 11.6 mg/dL (2.4-5.7)
== END 2022-02-19 15:59 | disposition home or self-care (01) ==
PROVIDERS: Physician Assistant; Emergency Provider Emergency Medicine Emergency Medical Services; PCP Internal Medicine
DX: M10.9 Gout, unspecified (principal); M79.675 Pain in left toe(s); Z79.899 Other long term (current) drug therapy
CPT/HCPCS: 36415; 84550; 99283; J1100

== ENCOUNTER 2022-02-22 12:18 | Outpatient (REF) | payer MEDICAID, SELFPAY | END 2022-02-22 12:19 | disposition home or self-care (01) | LOC: HO.MDS 12:18 | PROVIDERS: Visit Provider Internal Medicine | DX: D50.9 Iron deficiency anemia, unspecified (principal); Z94.81 Bone marrow transplant status; Z94.84 Stem cells transplant status | CPT/HCPCS: 96365; J1756 ==

== ENCOUNTER 2022-03-01 11:13 | Outpatient (REF) | payer MEDICAID, SELFPAY ==
[2022-03-01 12:28] LABS: MANUAL DIFF FLAG NO
[2022-03-01 12:34] LABS: Basophils Percent Auto 0.2 % (0-2); Eosinophils Absolute Auto 0.1 X10*3/uL (0.0-0.4); Eosinophils Percent Auto 1.5 % (0-4); Hematocrit 32.2 % (37.0-47.0); Hemoglobin 10.3 g/dl (12.0-16.0); Imm Gran Abs Auto 0.04 X10*3/uL (0.00-0.03); Imm Gran Pct Auto 0.7 % (0.0-0.4); Lymphocytes Absolute Auto 2.3 X10*3/uL (1.2-4.9); Lymphocytes Percent Auto 39.2 % (20-40); Mean Corpuscular Hemoglobin 28.1 pg (27.0-33.0); Mean Corpuscular Volume 87.7 fL (80.0-98.0); Mean Platelet Volume 9.1 fL (9.4-12.3); Monocytes Absolute Auto 0.5 X10*3/uL (0.1-1.2); Monocytes Percent Auto 8.8 % (2-11); Neutrophils Absolute Auto 2.9 x10*3/uL (2.0-8.3); Neutrophils Percent Auto 49.6 % (45-73); Platelet Count 236 X10*3/uL (160-400); Red Blood Count 3.67 X10*6/uL (4.20-5.50); Red Cell Distribution Width 15.2 % (11.0-16.0); White Blood Count 5.9 X10*3/uL (4.8-10.8)
== END 2022-03-01 11:14 | disposition home or self-care (01) ==
LOC: HO.MDS 11:13
PROVIDERS: Visit Provider Internal Medicine
DX: D50.9 Iron deficiency anemia, unspecified (principal)
CPT/HCPCS: 36415; 85025; 96374; J1756

== ENCOUNTER 2022-03-08 11:13 | Outpatient (REF) | payer MEDICAID, SELFPAY | END 2022-03-08 11:14 | disposition home or self-care (01) | LOC: HO.MDS 11:13 | PROVIDERS: Visit Provider Internal Medicine | DX: D50.9 Iron deficiency anemia, unspecified (principal) | CPT/HCPCS: 96365; J1756 ==

== ENCOUNTER 2022-03-15 10:55 | Outpatient (REF) | payer MEDICAID, SELFPAY | END 2022-03-15 10:56 | disposition home or self-care (01) | LOC: HO.MDS 10:55 | PROVIDERS: Visit Provider Internal Medicine | DX: D50.9 Iron deficiency anemia, unspecified (principal) | CPT/HCPCS: 96365; J1756 ==

== ENCOUNTER 2022-03-20 13:24 | Emergency (ER) | payer MEDICAID, SELFPAY ==
--- NOTE | ~2022-03-20 | XR_ITS ---
EXAMINATION: XR FOOT, RIGHT CLINICAL INFORMATION: Right foot pain. COMPARISON: None TECHNIQUE: AP, lateral, and oblique views of the right foot. An indicator arrow points to the fifth metatarsal. FINDINGS: There is no acute fracture or dislocation. The joint spaces are unremarkable. The tarsal bones are normally aligned. Moderate plantar and retrocalcaneal spurs are noted. There is mild soft tissue swelling. XR/XR foot RT 2V IMPRESSION: Mild soft tissue swelling and degenerative calcaneal spurs. No acute abnormality.
--- NOTE | ~2022-03-20 | US_ITS ---
EXAMINATION: US VENOUS ULTRASOUND WITH DOPPLER LOWER EXTREMITY, RIGHT CLINICAL INFORMATION: Right foot pain and swelling COMPARISON: None TECHNIQUE: Ultrasound of the deep veins is performed from the hip to the calf with compression sonography and color and pulse Doppler assessment. Spectral analysis with color-flow imaging is performed. FINDINGS: There is normal venous compression and respiratory variation and augmented flow. The visualized common femoral vein, superficial femoral vein, profunda femoral vein, popliteal vein, and the trifurcation region shows no evidence of deep venous thrombosis. There is no significant popliteal fossa cyst. 1.5 x 0.9 x 1.7 cm lymph node is present in the right groin. The contralateral left femoral vein appears normal. If the patient's symptoms persist, followup ultrasound in 5 days 7 days might be of value to exclude proximal propagation from a non-visualized calf vein. US/US venous duplex LE RT IMPRESSION: No DVT demonstrated in the right lower extremity.
[2022-03-20 13:39] VITALS: BP 137/94; PULSE 85; RESP 18; TEMP 36.6; O2SAT 98; BMI 40.2
--- NOTE | 2022-03-20 13:44 | ED.EXTPRO ---
HPI - Extremity Problem General Chief complaint: Extremity Problem <Marlene Snow MD - Last Filed: 03/20/22 13:46> Stated complaint: R leg swollen <Marlene Snow MD - Last Filed: 03/20/22 13:46> Time Seen by Provider: 03/20/22 15:27 <Marlene Snow MD - Last Filed: 03/20/22 13:46> Source: patient <ODALYS Alfaro - Last Filed: 03/20/22 16:25> Mode of arrival: ambulatory <ODALYS Alfaro - Last Filed: 03/20/22 16:25> Limitations: no limitations <ODALYS Alfaro - Last Filed: 03/20/22 16:25> Related Data Home medications: Home Medications Medication Instructions Recorded Confirmed citalopram 40 mg tablet 40 mg PO DAILY 02/15/20 11/15/21 cholecalciferol (vitamin D3) 25 25 mcg PO DAILY 02/16/20 11/15/21 mcg (1,000 unit) capsule acetaminophen 500 mg tablet 1,000 mg PO TID PRN Pain (Scale 07/10/20 11/15/21 (Tylenol Extra Strength) Score 4-6) tramadol 50 mg tablet 50 mg PO QID PRN Pain (Scale Score 07/10/20 11/15/21 1-3) mirtazapine 15 mg tablet 15 mg PO BEDTIME PRN Sleep 11/28/20 11/15/21 tolterodine 4 mg capsule,extended 4 mg PO BEDTIME 11/28/20 11/15/21 release 24 hr (Detrol LA) albuterol sulfate 2.5 mg/3 mL 2.5 mg inhalation TID 10/07/21 11/15/21 (0.083 %) solution for nebulization albuterol sulfate 90 mcg/actuation 2 puff inhalation Q4-6H PRN 10/07/21 11/15/21 aerosol inhaler (ProAir HFA) Shortness Of Breath atorvastatin 20 mg tablet 20 mg PO BEDTIME 10/07/21 11/15/21 diclofenac sodium 1 % topical gel 2 g topical BID 10/07/21 11/15/21 fluticasone propionate 50 2 spray intranasal DAILY PRN 10/07/21 11/15/21 mcg/actuation nasal Allergy Symptoms spray,suspension lidocaine 5 % topical patch 1 patch topical DAILY 10/07/21 11/15/21 (Lidoderm) loratadine 10 mg tablet 10 mg PO DAILY PRN Allergy Symptoms 10/07/21 11/15/21 ruxolitinib 5 mg tablet (Jakafi) 5 mg PO BID 10/07/21 11/15/21 tamsulosin 0.4 mg capsule 0.4 mg PO DAILY@1700 10/07/21 11/15/21 Previous Rx's Medication Instructions Recorded amlodipine 5 mg tablet (Norvasc) 5 mg PO DAILY #30 tabs 10/08/21 famotidine 40 mg tablet (Pepcid) 40 mg PO BEDTIME 30 days #30 tabs 10/29/21 ferrous sulfate 325 mg (65 mg 325 mg PO DAILY #30 tabs 10/29/21 iron) tablet pantoprazole 40 mg tablet,delayed 40 mg PO DAILY@0630 #30 tabs 10/29/21 release (Protonix) colchicine 0.6 mg tablet 0.6 mg PO DAILY #10 tabs 12/30/21 metformin 500 mg tablet 500 mg PO BIDWM #60 tabs 01/18/22 sitagliptin 50 mg tablet (Januvia) 50 mg PO DAILY 90 days #90 tabs 01/18/22 cefuroxime axetil 250 mg tablet 250 mg PO BID 7 days #14 tabs 01/26/22 loperamide 2 mg capsule (Imodium 2 mg PO Q6H PRN loose stool #14 01/26/22 A-D) caps colchicine 0.6 mg tablet 0.6 mg PO DAILY #10 tabs 02/19/22 prednisone 20 mg tablet 20 mg PO DAILY 5 days #5 tabs 02/19/22 <Marlene Snow MD - Last Filed: 03/20/22 13:46> Allergies/Adverse reactions: Allergies Allergy/AdvReac Type Severity Reaction Status Date / Time aspirin [ASPIRIN] Allergy Intermediate SWELLING/ITCHING, Verified 11/15/21 09:50 rash Penicillins Allergy Intermediate ITCHING Verified 11/15/21 09:50 vancomycin [VANCOMYCIN] AdvReac Intermediate RED MAN Verified 11/15/21 09:50 SYNDROME PER MD <Marlene Snow MD - Last Filed: 03/20/22 13:46> [facility] Past Medical History Medical History: Medical History Anemia Asthma Biliary dyskinesia Chronic myeloproliferative disease CKD stage 3 due to type 2 diabetes mellitus COVID-19 vaccine series completed Diabetes type 2, controlled Diabetic nephropathy Diabetic neuropathy associated with type 2 diabetes mellitus Dyslipidemia GERD (gastroesophageal reflux disease) Hiatal hernia History of depression History of gastritis History of myelofibrosis Hypertension Migraines Morbid obesity due to excess calories Obesity due to excess calories BERNIE (obstructive sleep apnea) Osteoarthritis of knees, bilateral Osteoarthritis of wrist Upper abdominal pain Vitamin B12 deficiency <Marlene Snow MD - Last Filed: 03/20/22 13:46> Surgical History: Surgical History Bone marrow replaced by transplant H/O stem cell transplant History of partial hysterectomy History of resection of meningioma Hx of breast reduction, elective Hx of colonoscopy Hx of esophagogastroduodenoscopy <Marlene Snow MD - Last Filed: 03/20/22 13:46> Family History Family History: Family History Father Heart problem HTN (hypertension) Mother Diabetes Family/Other Diabetes HTN (hypertension) Heart problem Sister Cancer <Marlene Snow MD - Last Filed: 03/20/22 13:46> Social History Social History: Social History Household Members: None Housing: Apartment Are you a primary technical healthcare consultant to a significant other at home: No Do you presently have visiting nurse or other home services: Yes Alcohol intake: never Patient Tobacco Use Status: Never used Tobacco Advance Directives: Yes Advance Directives Information Provided: No Advance Directives on File: No Advance Directives Date on File: 03/24/16 service: No Current occupational status: disabled <Marlene Snow MD - Last Filed: 03/20/22 13:46> Physical Exam Vital Signs: Vital Signs: Last Vital Signs Temp 97.8 F 03/20/22 13:39 Pulse 85 03/20/22 13:39 Resp 18 03/20/22 13:39 BP 137/94 H 03/20/22 13:39 Pulse Ox 98 03/20/22 13:39 O2 Del Method 03/20/22 13:39 BMI result Body Mass Index 40.2 <Marlene Snow MD - Last Filed: 03/20/22 13:46> Vital Signs: Last Vital Signs Temp 97.8 F 03/20/22 13:39 Pulse 85 03/20/22 13:39 Resp 18 03/20/22 13:39 BP 137/94 H 03/20/22 13:39 Pulse Ox 98 03/20/22 13:39 O2 Del Method 03/20/22 13:39 BMI result Body Mass Index 40.2 <ODALYS Alfaro - Last Filed: 03/20/22 16:25> Course Course Course Narrative: <Marlene Snow MD - Last Filed: 03/20/22 13:46> Reevaluation(s) Reevaluation #1: 57-year-old female came in with right foot pain for 1 day with no trauma or injury to the right foot. Allergic to ibuprofen was given oxycodone in the ED. history may suggest plantar fasciitis. <Marlene Snow MD - Last Filed: 03/20/22 13:46> Time: 13:45 <Marlene Snow MD - Last Filed: 03/20/22 13:46> Medications Administered Discontinued Medications Generic Name Dose Route Start Last Admin Trade Name Freq PRN Reason Stop Dose Admin Oxycodone HCl 5 mg 03/20/22 13:44 03/20/22 13:54 Oxycodone Hcl Immed Release 5 Mg Tablet PO 03/20/22 13:45 5 mg ONCE ONE Administration Prednisone 60 mg 03/20/22 15:38 03/20/22 16:21 Prednisone 20 Mg Tablet PO 03/20/22 15:39 60 mg ONCE ONE Administration Tramadol HCl 50 mg 03/20/22 15:38 03/20/22 16:21 Tramadol Hcl 50 Mg Tablet PO 03/20/22 15:39 50 mg ONCE ONE Administration <Marlene Snow MD - Last Filed: 03/20/22 13:46> Medications Administered Discontinued Medications Generic Name Dose Route Start Last Admin Trade Name Freq PRN Reason Stop Dose Admin Oxycodone HCl 5 mg 03/20/22 13:44 03/20/22 13:54 Oxycodone Hcl Immed Release 5 Mg Tablet PO 03/20/22 13:45 5 mg ONCE ONE Administration Prednisone 60 mg 03/20/22 15:38 03/20/22 16:21 Prednisone 20 Mg Tablet PO 03/20/22 15:39 60 mg ONCE ONE Administration Tramadol HCl 50 mg 03/20/22 15:38 03/20/22 16:21 Tramadol Hcl 50 Mg Tablet PO 03/20/22 15:39 50 mg ONCE ONE Administration <ODALYS Alfaro - Last Filed: 03/20/22 16:25> Discharge Plan Discharge Clinical Impression: Foot pain <Marlene Snow MD - Last Filed: 03/20/22 13:46> Prescriptions: No Action metformin 500 mg tablet 500 mg PO BIDWM Qty: 60 4RF Januvia 50 mg tablet 50 mg PO DAILY 90 Days Qty: 90 0RF Rx Instructions: Dose reduced based on GFR citalopram 40 mg Tablet 40 mg PO DAILY colchicine 0.6 mg tablet 0.6 mg PO DAILY Qty: 10 0RF prednisone 20 mg tablet 20 mg PO DAILY 5 Days Qty: 5 0RF atorvastatin 20 mg Tablet 20 mg PO BEDTIME tamsulosin 0.4 mg Capsule 0.4 mg PO DAILY@1700 lidocaine [Lidoderm] 5 % Adhesive Patch,Medicated 1 patch TOPICAL DAILY Rx Instructions: leave on most painful area for up to 12 hrs fluticasone propionate 50 mcg/actuation [place],Suspension 2 spray INTRANASAL DAILY PRN (Reason: Allergy Symptoms) Rx Instructions: administer into each nostril loratadine 10 mg Tablet 10 mg PO DAILY PRN (Reason: Allergy Symptoms) diclofenac sodium 1 % Gel 2 g TOPICAL BID Rx Instructions: apply to single elbow, wrist or hand; for hand includes palm/fingers/back of hand albuterol sulfate 2.5 mg /3 mL (0.083 %) solution for nebulization 2.5 mg inhalation TID albuterol sulfate [ProAir HFA] 90 mcg/actuation Hfa Aerosol Inhaler 2 puff INHALATION Q4-6H PRN (Reason: Shortness Of Breath) Jakafi 5 mg Tablet 5 mg PO BID amlodipine [Norvasc] 5 mg tablet 5 mg PO DAILY Qty: 30 0RF colchicine 0.6 mg tablet 0.6 mg PO DAILY Qty: 10 0RF loperamide [Imodium A-D] 2 mg capsule 2 mg PO Q6H PRN (Reason: loose stool) Qty: 14 0RF cefuroxime axetil 250 mg tablet 250 mg PO BID 7 Days Qty: 14 0RF tramadol 50 mg tablet 50 mg PO QID PRN (Reason: Pain (Scale Score 1-3)) acetaminophen [Tylenol Extra Strength] 500 mg tablet 1,000 mg PO TID PRN (Reason: Pain (Scale Score 4-6)) cholecalciferol (vitamin D3) 25 mcg (1,000 unit) capsule 25 mcg PO DAILY tolterodine [Detrol LA] 4 mg capsule,extended release 24hr 4 mg PO BEDTIME mirtazapine 15 mg tablet 15 mg PO BEDTIME PRN (Reason: Sleep) pantoprazole [Protonix] 40 mg tablet,delayed release (DR/EC) 40 mg PO DAILY@0630 Qty: 30 6RF famotidine [Pepcid] 40 mg tablet 40 mg PO BEDTIME 30 Days Qty: 30 6RF ferrous sulfate 325 mg (65 mg iron) tablet 325 mg PO DAILY Qty: 30 6RF <Marlene Snow MD - Last Filed: 03/20/22 13:46>
[2022-03-20] MEDS: oxyCODONE HCl Immed Release 5 MG TABLET PO (13:54)
--- NOTE | 2022-03-20 15:41 | ED.GENADULT ---
HPI - General Adult General Chief complaint: Extremity Problem Stated complaint: R leg swollen Time Seen by Provider: 03/20/22 15:27 Source: patient Mode of arrival: ambulatory Limitations: no limitations History of Present Illness HPI narrative: 57-year-old female history of diabetes, hypertension, CKD, hypertension, morbid obesity, obstructive sleep apnea, and gout presents to the ED for right foot swelling with anterior foot and plantar foot pain. Patient states this has been occurring for the past 2 days. Patient denies any recent trauma to the foot, redness, calf pain, leg swelling, fever, chills, bluish black discoloration, or cramping. Related Data Home Medications Medication Instructions Recorded Confirmed citalopram 40 mg tablet 40 mg PO DAILY 02/15/20 11/15/21 cholecalciferol (vitamin D3) 25 25 mcg PO DAILY 02/16/20 11/15/21 mcg (1,000 unit) capsule acetaminophen 500 mg tablet 1,000 mg PO TID PRN Pain (Scale 07/10/20 11/15/21 (Tylenol Extra Strength) Score 4-6) tramadol 50 mg tablet 50 mg PO QID PRN Pain (Scale Score 07/10/20 11/15/21 1-3) mirtazapine 15 mg tablet 15 mg PO BEDTIME PRN Sleep 11/28/20 11/15/21 tolterodine 4 mg capsule,extended 4 mg PO BEDTIME 11/28/20 11/15/21 release 24 hr (Detrol LA) albuterol sulfate 2.5 mg/3 mL 2.5 mg inhalation TID 10/07/21 11/15/21 (0.083 %) solution for nebulization albuterol sulfate 90 mcg/actuation 2 puff inhalation Q4-6H PRN 10/07/21 11/15/21 aerosol inhaler (ProAir HFA) Shortness Of Breath atorvastatin 20 mg tablet 20 mg PO BEDTIME 10/07/21 11/15/21 diclofenac sodium 1 % topical gel 2 g topical BID 10/07/21 11/15/21 fluticasone propionate 50 2 spray intranasal DAILY PRN 10/07/21 11/15/21 mcg/actuation nasal Allergy Symptoms spray,suspension lidocaine 5 % topical patch 1 patch topical DAILY 10/07/21 11/15/21 (Lidoderm) loratadine 10 mg tablet 10 mg PO DAILY PRN Allergy Symptoms 10/07/21 11/15/21 ruxolitinib 5 mg tablet (Jakafi) 5 mg PO BID 10/07/21 11/15/21 tamsulosin 0.4 mg capsule 0.4 mg PO DAILY@1700 10/07/21 11/15/21 Previous Rx's Medication Instructions Recorded amlodipine 5 mg tablet (Norvasc) 5 mg PO DAILY #30 tabs 10/08/21 famotidine 40 mg tablet (Pepcid) 40 mg PO BEDTIME 30 days #30 tabs 10/29/21 ferrous sulfate 325 mg (65 mg 325 mg PO DAILY #30 tabs 10/29/21 iron) tablet pantoprazole 40 mg tablet,delayed 40 mg PO DAILY@0630 #30 tabs 10/29/21 release (Protonix) colchicine 0.6 mg tablet 0.6 mg PO DAILY #10 tabs 12/30/21 metformin 500 mg tablet 500 mg PO BIDWM #60 tabs 01/18/22 sitagliptin 50 mg tablet (Januvia) 50 mg PO DAILY 90 days #90 tabs 01/18/22 cefuroxime axetil 250 mg tablet 250 mg PO BID 7 days #14 tabs 01/26/22 loperamide 2 mg capsule (Imodium 2 mg PO Q6H PRN loose stool #14 01/26/22 A-D) caps colchicine 0.6 mg tablet 0.6 mg PO DAILY #10 tabs 02/19/22 prednisone 20 mg tablet 20 mg PO DAILY 5 days #5 tabs 02/19/22 colchicine 0.6 mg tablet 0.6 mg PO DAILY 10 days #10 tabs 03/20/22 prednisone 20 mg tablet 40 mg PO DAILY 5 days #10 tabs 03/20/22 Allergies Allergy/AdvReac Type Severity Reaction Status Date / Time aspirin [ASPIRIN] Allergy Intermediate SWELLING/ITCHING, Verified 11/15/21 09:50 rash Penicillins Allergy Intermediate ITCHING Verified 11/15/21 09:50 vancomycin [VANCOMYCIN] AdvReac Intermediate RED MAN Verified 11/15/21 09:50 SYNDROME PER MD Review of Systems Review of Systems: Right foot pain with slight swelling. Yes all other systems are reviewed and are negative PMFSH Past Medical History Medical History Anemia Asthma Biliary dyskinesia Chronic myeloproliferative disease CKD stage 3 due to type 2 diabetes mellitus COVID-19 vaccine series completed Diabetes type 2, controlled Diabetic nephropathy Diabetic neuropathy associated with type 2 diabetes mellitus Dyslipidemia GERD (gastroesophageal reflux disease) Hiatal hernia History of depression History of gastritis History of myelofibrosis Hypertension Migraines Morbid obesity due to excess calories Obesity due to excess calories BERNIE (obstructive sleep apnea) Osteoarthritis of knees, bilateral Osteoarthritis of wrist Upper abdominal pain Vitamin B12 deficiency Surgical History Bone marrow replaced by transplant H/O stem cell transplant History of partial hysterectomy History of resection of meningioma Hx of breast reduction, elective Hx of colonoscopy Hx of esophagogastroduodenoscopy Family History Family History Father Heart problem HTN (hypertension) Mother Diabetes Family/Other Diabetes HTN (hypertension) Heart problem Sister Cancer Social History Social History Household Members: None Housing: Apartment Are you a primary managed care provider to a significant other at home: No Do you presently have visiting nurse or other home services: Yes Alcohol intake: never Patient Tobacco Use Status: Never used Tobacco Advance Directives: Yes Advance Directives Information Provided: No Advance Directives on File: No Advance Directives Date on File: 03/24/16 service: No Current occupational status: disabled Physical Exam ED Vital Signs: Vital Signs - 24 hr 03/20/22 13:39 Temperature 97.8 F Pulse Rate 85 Respiratory Rate 18 Blood Pressure 137/94 H Pulse Oximetry 98 Oxygen Delivery Method Room Air BMI result Body Mass Index 40.2 Const General: cooperative, healthy appearing, comfortable, no acute distress, well developed, alert, awake and Physically active Orientation/consciousness: oriented to person, oriented to place, oriented to time and patient oriented x3 HENMT Head: Yes normal to inspection, Yes No palpable skull fracture present, Yes normocephalic, Yes atraumatic and No abrasion Eyes General: appearance normal, both eyes and all related structures Neck Neck: Yes normal visual inspection, Yes full ROM, Yes no lymphadenopathy, Yes no meningeal signs, Yes trachea midline, Yes supple, No anterior neck swelling and No tender Chest Chest palpation & inspection: normal inspection of the chest and normal palpation of entire chest wall Resp Effort & Inspection: normal respiratory effort and able to speak in complete sentences Auscultation: clear to auscultation bilaterally Cardio Jugular venous distension: no JVD Heart sounds: S1 normal heart sound present and S2 normal heart sound present GI Inspection: Yes normal to inspection and No abdominal wall ecchymosis Palpation (GI): Soft to palpation, not firm, nontender, no guarding and not rigid General: No CVA tenderness and Yes no CVA tenderness Back/Spine/Pelvis Back: no CVA tenderness, No CVA tenderness and No back tenderness Skin General skin exam: no rashes or lesions noted and elasticity normal Neuro General: oriented to person, oriented to place, oriented to time, patient oriented x3, gait normal, tone normal, moves all extremities, no meningeal signs, no focal motor deficits and CN's II-XI intact bilaterally Extrem General: Yes normal to inspection and Yes full ROM Ankle/foot/toe images: 1. Slight swelling of foot. Significant tenderness on palpation. Motor/neuro/vascular exam of lower extremity intact. Negative for redness, deformity, erythema, crepitus or ecchymosis. 2. Tenderness on palpation. Negative for erythema, deformity, ecchymosis, errythema, or crepitus. Motor/neuro/vascular exam intact. Psych Appearance: grossly normal, well kempt and not disheveled Course Course Course Narrative: X-ray ordered which shows slight swelling and calcaneal spur. Due to patient's swelling anteriorly of foot with tenderness was sent ultrasound shows no blood clot. Tramadol steroids ordered for pain. Not suspecting arterial occlusion. Reevaluation(s) Reevaluation #1: Patient ultrasound came back negative for DVT. Calcaneal spur vs gout. History physical exam does not indicate cellulitis. Not suspecting artery occlusion. Xray negative for fractures. Time: 18:09 Medications Administered Discontinued Medications Generic Name Dose Route Start Last Admin Trade Name Marcusq PRN Reason Stop Dose Admin Oxycodone HCl 5 mg 03/20/22 13:44 03/20/22 13:54 Oxycodone Hcl Immed Release 5 Mg Tablet PO 03/20/22 13:45 5 mg ONCE ONE Administration Prednisone 60 mg 03/20/22 15:38 03/20/22 16:21 Prednisone 20 Mg Tablet PO 03/20/22 15:39 60 mg ONCE ONE Administration Tramadol HCl 50 mg 03/20/22 15:38 03/20/22 16:21 Tramadol Hcl 50 Mg Tablet PO 03/20/22 15:39 50 mg ONCE ONE Administration Medical Decision Making MDM Narrative Medical decision making narrative: Calcaneal spur. Gout Discharge Plan Discharge Clinical Impression: Foot pain, Heel spur, Gout Patient Disposition: Home, Self-Care Instructions: Crutch Instructions (ED), Low Purine Diet (ED), Gout (ED), Arthralgia (ED), Heel Spur (ED) Additional Instructions: Lim radiograf?a muestra un espol?n en el ranjit?n. Lim ecograf?a result? negativa para trombosis venosa profunda. Ser? dado de candie con analg?sicos y esteroides. Por favor, traci un seguimiento con lim proveedor de atenci?n primaria. Regrese a la mei de urgencias por cualquier hinchaz?n en las piernas, dolor en la pantorrilla, enrojecimiento, decoloraci?n de color janes azulado, entumecimiento, hormigueo en los planos, fiebre, escalofr?os, dolor en el pecho, dificultad para respirar o cualquier otro s?ntoma preocupante. Contin?e tomando lim prescripci?n de tramadol para el dolor. Prescriptions: New prednisone 20 mg tablet 40 mg PO DAILY 5 Days Qty: 10 0RF colchicine 0.6 mg tablet 0.6 mg PO DAILY 10 Days Qty: 10 0RF No Action metformin 500 mg tablet 500 mg PO BIDWM Qty: 60 4RF Januvia 50 mg tablet 50 mg PO DAILY 90 Days Qty: 90 0RF Rx Instructions: Dose reduced based on GFR citalopram 40 mg Tablet 40 mg PO DAILY colchicine 0.6 mg tablet 0.6 mg PO DAILY Qty: 10 0RF prednisone 20 mg tablet 20 mg PO DAILY 5 Days Qty: 5 0RF atorvastatin 20 mg Tablet 20 mg PO BEDTIME tamsulosin 0.4 mg Capsule 0.4 mg PO DAILY@1700 lidocaine [Lidoderm] 5 % Adhesive Patch,Medicated 1 patch TOPICAL DAILY Rx Instructions: leave on most painful area for up to 12 hrs fluticasone propionate 50 mcg/actuation [place],Suspension 2 spray INTRANASAL DAILY PRN (Reason: Allergy Symptoms) Rx Instructions: administer into each nostril loratadine 10 mg Tablet 10 mg PO DAILY PRN (Reason: Allergy Symptoms) diclofenac sodium 1 % Gel 2 g TOPICAL BID Rx Instructions: apply to single elbow, wrist or hand; for hand includes palm/fingers/back of hand albuterol sulfate 2.5 mg /3 mL (0.083 %) solution for nebulization 2.5 mg inhalation TID albuterol sulfate [ProAir HFA] 90 mcg/actuation Hfa Aerosol Inhaler 2 puff INHALATION Q4-6H PRN (Reason: Shortness Of Breath) Jakafi 5 mg Tablet 5 mg PO BID amlodipine [Norvasc] 5 mg tablet 5 mg PO DAILY Qty: 30 0RF colchicine 0.6 mg tablet 0.6 mg PO DAILY Qty: 10 0RF loperamide [Imodium A-D] 2 mg capsule 2 mg PO Q6H PRN (Reason: loose stool) Qty: 14 0RF cefuroxime axetil 250 mg tablet 250 mg PO BID 7 Days Qty: 14 0RF tramadol 50 mg tablet 50 mg PO QID PRN (Reason: Pain (Scale Score 1-3)) acetaminophen [Tylenol Extra Strength] 500 mg tablet 1,000 mg PO TID PRN (Reason: Pain (Scale Score 4-6)) cholecalciferol (vitamin D3) 25 mcg (1,000 unit) capsule 25 mcg PO DAILY tolterodine [Detrol LA] 4 mg capsule,extended release 24hr 4 mg PO BEDTIME mirtazapine 15 mg tablet 15 mg PO BEDTIME PRN (Reason: Sleep) pantoprazole [Protonix] 40 mg tablet,delayed release (DR/EC) 40 mg PO DAILY@0630 Qty: 30 6RF famotidine [Pepcid] 40 mg tablet 40 mg PO BEDTIME 30 Days Qty: 30 6RF ferrous sulfate 325 mg (65 mg iron) tablet 325 mg PO DAILY Qty: 30 6RF Stand Alone Forms: Work/School Release Interventions: ED Discharge Assessment Last Done: 03/20/22 19:07 Discharge Date/Time: 03/20/22 19:10 Print Language: Kosovan
[2022-03-20] MEDS: traMADoL HCL 50 MG TABLET PO (16:21)
[2022-03-20] MEDS: predniSONE 20 MG TABLET 60 MG PO (16:21)
== END 2022-03-20 19:10 | disposition home or self-care (01) ==
PROVIDERS: Emergency Provider Emergency Medicine Emergency Medical Services; PCP Internal Medicine
DX: M10.9 Gout, unspecified (principal); M77.31 Calcaneal spur, right foot; M79.671 Pain in right foot
CPT/HCPCS: 73620; 93971; 99283; 99284

== ENCOUNTER 2022-03-22 12:10 | Outpatient (REF) | payer MEDICAID, SELFPAY | END 2022-03-22 12:11 | disposition home or self-care (01) | LOC: HO.MDS 12:10 | PROVIDERS: Visit Provider Internal Medicine | DX: D50.9 Iron deficiency anemia, unspecified (principal) | CPT/HCPCS: 96365; J1756 ==

== ENCOUNTER 2022-05-05 21:00 | Emergency (ER) | payer MEDICAID, SELFPAY ==
--- NOTE | ~2022-05-05 | XR_ITS ---
EXAMINATION: XR FOOT, RIGHT CLINICAL INFORMATION: right hallux pain COMPARISON: Right foot 03/20/2022 TECHNIQUE: 3 views of the right foot. FINDINGS: There is no acute abnormality. No fracture or dislocation. Joint spaces are maintained. Prominent plantar calcaneal spur. Small spur at the posterior calcaneus at the insertion of the Achilles tendon. No acute soft tissue abnormality. XR/XR foot RT 2V IMPRESSION: 1. No acute abnormality of the foot. 2. Prominent plantar calcaneal spur.
[2022-05-05 21:10] VITALS: BP 126/84; PULSE 87; RESP 24; TEMP 36.6; O2SAT 99; BMI 40.8
--- NOTE | 2022-05-05 23:02 | PC.NURSE ---
pt reporting 10/10 right foot pain, labs drawn, 20G IV placed left hand, pt pending ED provider.
[2022-05-05 23:03] LABS: Basophils Percent Auto 0.1 % (0-2); Eosinophils Absolute Auto 0.1 X10*3/uL (0.0-0.4); Eosinophils Percent Auto 1.3 % (0-4); Hematocrit 28.2 % (37.0-47.0); Hemoglobin 9.4 g/dl (12.0-16.0); Imm Gran Abs Auto 0.04 X10*3/uL (0.00-0.03); Imm Gran Pct Auto 0.5 % (0.0-0.4); Lymphocytes Absolute Auto 2.4 X10*3/uL (1.2-4.9); Lymphocytes Percent Auto 30.4 % (20-40); MANUAL DIFF FLAG NO; Mean Corpuscular HGB Conc 33.3 g/dl (31.0-35.0); Mean Corpuscular Hemoglobin 28.7 pg (27.0-33.0); Mean Platelet Volume 9.2 fL (9.4-12.3); Monocytes Absolute Auto 0.6 X10*3/uL (0.1-1.2); Monocytes Percent Auto 7.5 % (2-11); Neutrophils Absolute Auto 4.8 x10*3/uL (2.0-8.3); Neutrophils Percent Auto 60.2 % (45-73); Platelet Count 235 X10*3/uL (160-400); Red Blood Count 3.28 X10*6/uL (4.20-5.50); Red Cell Distribution Width 14.3 % (11.0-16.0); White Blood Count 7.9 X10*3/uL (4.8-10.8)
--- NOTE | 2022-05-05 23:11 | PC.NURSE ---
report given to Miguel RN
[2022-05-05 23:39] LABS: Alanine Aminotransferase 22 U/L (0-31); Albumin Level 4.3 g/dL (3.5-5.0); Alkaline Phosphatase 66 U/L (39-117); Anion Gap 17 (12-20); Aspartate Amino Transferase 21 U/L (5-31); Bilirubin Total 0.4 mg/dL (0.0-1.0); Blood Urea Nitrogen 24 mg/dL (9-16); C Reactive Protein 2.18 mg/dL (< or = 0.50); Calcium 8.9 mg/dL (8.4-10.2); Carbon Dioxide 20 mmol/L (22-29); Chloride 107 mmol/L (96-108); Creatinine Clr Calc Pharmacy 54.4; Estimated Glomerular Filt Rate 36; Glucose Random 100 mg/dL (60-115); Sodium 140 mmol/L (135-145); Total Protein 7.2 g/dL (6.5-8.0)
--- NOTE | 2022-05-05 23:49 | ED_ITS ---
HPI - Extremity Injury (Lower) General Chief Complaint: Extremity Injury, Lower Stated Complaint: right foot swollen and red no inj Time Seen by Provider: 05/05/22 22:51 Source: patient Mode of arrival: ambulatory Limitations: language barrier (Patient understands some Romansh, Kyrgyz is a 1st language, firesetter used) History of Present Illness HPI Narrative: 57-year-old female who presents emergency department for evaluation of right great toe pain. Patient states she has had pain in her right foot for approximately 1/2 months. She states she was seen here in the emergency department and diagnosed with gout. In reviewing the ED note from 03/20/2022 patient was diagnosed with gout in treated with steroids and tramadol. She also had a head ultrasound which ruled out DVT. Patient states she did get some improvement but she has had a low level of pain since being seen in the emergency department. She states that last night the pain however became excruciating. She noticed redness and swelling in the right great toe over the MTP joint she states the pain is a constant, pulling pain which is greater than 10/10. She denied fever, chills, nausea, vomiting, diarrhea, feeling tired or fatigued. Related Data Home Medications Medication Instructions Recorded Confirmed citalopram 40 mg tablet 40 mg PO DAILY 02/15/20 11/15/21 cholecalciferol (vitamin D3) 25 25 mcg PO DAILY 02/16/20 11/15/21 mcg (1,000 unit) capsule acetaminophen 500 mg tablet 1,000 mg PO TID PRN Pain (Scale 07/10/20 11/15/21 (Tylenol Extra Strength) Score 4-6) tramadol 50 mg tablet 50 mg PO QID PRN Pain (Scale Score 07/10/20 11/15/21 1-3) mirtazapine 15 mg tablet 15 mg PO BEDTIME PRN Sleep 11/28/20 11/15/21 tolterodine 4 mg capsule,extended 4 mg PO BEDTIME 11/28/20 11/15/21 release 24 hr (Detrol LA) albuterol sulfate 2.5 mg/3 mL 2.5 mg inhalation TID 10/07/21 11/15/21 (0.083 %) solution for nebulization albuterol sulfate 90 mcg/actuation 2 puff inhalation Q4-6H PRN 10/07/21 11/15/21 aerosol inhaler (ProAir HFA) Shortness Of Breath atorvastatin 20 mg tablet 20 mg PO BEDTIME 10/07/21 11/15/21 diclofenac sodium 1 % topical gel 2 g topical BID 10/07/21 11/15/21 fluticasone propionate 50 2 spray intranasal DAILY PRN 10/07/21 11/15/21 mcg/actuation nasal Allergy Symptoms spray,suspension lidocaine 5 % topical patch 1 patch topical DAILY 10/07/21 11/15/21 (Lidoderm) loratadine 10 mg tablet 10 mg PO DAILY PRN Allergy Symptoms 10/07/21 11/15/21 ruxolitinib 5 mg tablet (Jakafi) 5 mg PO BID 10/07/21 11/15/21 tamsulosin 0.4 mg capsule 0.4 mg PO DAILY@1700 10/07/21 11/15/21 Previous Rx's Medication Instructions Recorded amlodipine 5 mg tablet (Norvasc) 5 mg PO DAILY #30 tabs 10/08/21 famotidine 40 mg tablet (Pepcid) 40 mg PO BEDTIME 30 days #30 tabs 10/29/21 ferrous sulfate 325 mg (65 mg 325 mg PO DAILY #30 tabs 10/29/21 iron) tablet pantoprazole 40 mg tablet,delayed 40 mg PO DAILY@0630 #30 tabs 10/29/21 release (Protonix) colchicine 0.6 mg tablet 0.6 mg PO DAILY #10 tabs 12/30/21 metformin 500 mg tablet 500 mg PO BIDWM #60 tabs 01/18/22 sitagliptin phosphate 50 mg tablet 50 mg PO DAILY 90 days #90 tabs 01/18/22 (Januvia) cefuroxime axetil 250 mg tablet 250 mg PO BID 7 days #14 tabs 01/26/22 loperamide 2 mg capsule (Imodium 2 mg PO Q6H PRN loose stool #14 01/26/22 A-D) caps colchicine 0.6 mg tablet 0.6 mg PO DAILY #10 tabs 02/19/22 prednisone 20 mg tablet 20 mg PO DAILY 5 days #5 tabs 02/19/22 colchicine 0.6 mg tablet 0.6 mg PO DAILY 10 days #10 tabs 03/20/22 prednisone 20 mg tablet 40 mg PO DAILY 5 days #10 tabs 03/20/22 colchicine 0.6 mg tablet (Colcrys) 0.6 mg PO ONCE #3 tabs 05/06/22 oxycodone 5 mg tablet 5 mg PO Q4H PRN pain #14 tabs 05/06/22 Allergies Allergy/AdvReac Type Severity Reaction Status Date / Time aspirin [ASPIRIN] Allergy Intermediate SWELLING/ITCHING, Verified 05/05/22 21:09 rash Penicillins Allergy Intermediate ITCHING Verified 05/05/22 21:09 vancomycin [VANCOMYCIN] AdvReac Intermediate RED MAN Verified 05/05/22 21:09 SYNDROME PER MD Review of Systems Review of Systems: Yes all other systems are reviewed and are negative [facility] Past Medical History [facility] Narrative: Social history: She denies tobacco, alcohol and drug use. Medical History Anemia Asthma Biliary dyskinesia Chronic myeloproliferative disease CKD stage 3 due to type 2 diabetes mellitus COVID-19 vaccine series completed Diabetes type 2, controlled Diabetic nephropathy Diabetic neuropathy associated with type 2 diabetes mellitus Dyslipidemia GERD (gastroesophageal reflux disease) Hiatal hernia History of depression History of gastritis History of myelofibrosis Hypertension Migraines Morbid obesity due to excess calories Obesity due to excess calories BERNIE (obstructive sleep apnea) Osteoarthritis of knees, bilateral Osteoarthritis of wrist Upper abdominal pain Vitamin B12 deficiency Surgical History Bone marrow replaced by transplant H/O stem cell transplant History of partial hysterectomy History of resection of meningioma Hx of breast reduction, elective Hx of colonoscopy Hx of esophagogastroduodenoscopy Family History Family History Father Heart problem HTN (hypertension) Mother Diabetes Family/Other Diabetes HTN (hypertension) Heart problem Sister Cancer Social History Social History Household Members: None Housing: Apartment Are you a primary resident care spec to a significant other at home: No Do you presently have visiting nurse or other home services: Yes Alcohol intake: never Patient Tobacco Use Status: Never used Tobacco Advance Directives: No Advance Directives Information Provided: No Advance Directives Date on File: 03/24/16 service: No Current occupational status: disabled Physical Exam Vital Signs: Vital Signs: Last Vital Signs Temp 97.8 F 05/05/22 21:10 Pulse 87 05/05/22 21:10 Resp 24 H 05/05/22 21:10 BP 126/84 05/05/22 21:10 Pulse Ox 99 05/05/22 21:10 O2 Del Method 05/05/22 21:10 BMI result Body Mass Index 40.8 Vital signs reviewed, these are normal. Const: Other: Awake, alert, female patient, she is very pleasant cooperative, does appear to be in distress secondary to her right great toe pain Extrem: Other: Patient has erythema increased warmth over the right 1st MTP joint. Patient's joint is extremely tender and with minimal palpation causes severe pain. She has no other erythema or increased warmth or tenderness over her other joints of her right foot. Medical Decision Making Medical Decision Making [facility] Narrative: 57-year-old female with a history of gout who presents emergency department for evaluation of right foot pain x3 weeks with severe pain in the right great toe MTP joint with erythema of this joint x1 day. Patient's exam did reveal exquisite tenderness with palpation over the right 1st MTP joint which is consistent with gout. Patient's laboratory evaluation revealed chronic anemia with an H&H of 9.4 and 28.2. WBC count was normal 7900. Patient has an elevated BUN and creatinine of 24 and 1.48-this is chronic. Glucose was normal at 100. CRP was elevated 2.18. Course: Patient's presentation is consistent with gout of the right 1st MTP joint. Patient was treated with Colcrys 1.2 mg now and 0.6 mg 1 hour later. She was also given oxycodone 10 mg orally and Tylenol 975 mg orally for her pain. Patient will be discharged home with a prescription for Colchrys to take in 3 days and oxycodone 5 mg pills, 1 pill every 4 hours as needed for pain. She also advised to take Tylenol every 4-6 hours as needed for pain as well. Differential Diagnosis Differential diagnosis includes but is not limited to gout, cellulitis, septic arthritis, osteoarthritis, osteomyelitis Lab Data [facility] Lab Attestation statement: I reviewed the patient's lab results. Please see my interpretation in the [facility] Section Result Diagrams: 05/05/22 22:58 05/05/22 22:58 Labs: Lab Results 05/05/22 05/05/22 Range/Units 22:58 22:58 WBC 7.9 (4.8-10.8) X10*3/uL RBC 3.28 L (4.20-5.50) X10*6/uL Hgb 9.4 L (12.0-16.0) g/dl Hct 28.2 L (37.0-47.0) % MCV 86.0 (80.0-98.0) fL MCH 28.7 (27.0-33.0) pg MCHC 33.3 (31.0-35.0) g/dl RDW 14.3 (11.0-16.0) % Plt Count 235 (160-400) X10*3/uL MPV 9.2 L (9.4-12.3) fL Immature Gran % (Auto) 0.5 H (0.0-0.4) % Neut % (Auto) 60.2 (45-73) % Lymph % (Auto) 30.4 (20-40) % [place] % (Auto) 7.5 (2-11) % Eos % (Auto) 1.3 (0-4) % Baso % (Auto) 0.1 (0-2) % Lymph # (Auto) 2.4 (1.2-4.9) X10*3/uL [place] # (Auto) 0.6 (0.1-1.2) X10*3/uL Eos # (Auto) 0.1 (0.0-0.4) X10*3/uL Baso # (Auto) 0.0 (0.0-0.2) X10*3/uL Abs Immat Gran (auto) 0.04 H (0.00-0.03) X10*3/uL Absolute Neuts (auto) 4.8 (2.0-8.3) x10*3/uL Absolute Nucleated RBC 0.000 (0.0-0.012) X10*3/uL Nucleated RBC % (auto) 0.0 (0.0-0.2) /100WBC Sodium 140 (135-145) mmol/L Potassium 4.0 (3.3-5.1) mmol/L Chloride 107 (96-108) mmol/L Carbon Dioxide 20 L (22-29) mmol/L Anion Gap 17 (12-20) BUN 24 H (9-16) mg/dL Creatinine 1.48 H (0.5-1.4) mg/dL Estim Creat Clear Calc 54.4 Estimated GFR 36 Random Glucose 100 (60-115) mg/dL Calcium 8.9 (8.4-10.2) mg/dL Total Bilirubin 0.4 (0.0-1.0) mg/dL AST 21 (5-31) U/L ALT 22 (0-31) U/L Alkaline Phosphatase 66 D (39-117) U/L C-Reactive Protein 2.18 H (< or = 0.50) mg/dL Total Protein 7.2 (6.5-8.0) g/dL Albumin 4.3 (3.5-5.0) g/dL Independent Interpretation Interpretation: Right foot x-rays were independently interpreted by me as no acute fracture, osteomyelitis or arthritis of the 1st MTP joint Radiology Impression Discussion of test interpretation with radiology: I have reviewed the radiologist's reading. Radiologist Impression: IMPRESSION: 1.? No acute abnormality of the foot. 2.? Prominent plantar calcaneal spur. ?Dictated By: Abe Jameson MD Signed By: <Electronically signed by Abe Jameson MD in OV> 05/05/22 8913 External Record Review External record reviewed: Other ([place] drug monitoring program reviewed-patient on tramadol, advised to stop taking tramadol while on oxycodone) Discharge Plan Discharge Clinical Impression: Gout attack Patient Disposition: Home, Self-Care Instructions: Gout (ED) Additional Instructions: Your x-ray was unremarkable Your laboratory evaluation revealed anemia which is not new. Your kidney numbers were also elevated but again this is not new for you. Your physical exam is consistent with gout of the right great toe. Your treated with Colcrys 1.2 mg and 0.6 mg 1 hour later. This medication reduces the inflammation in your toe joint and should help with the pain. This medication will last for 3 days. Need to repeat this dose in 3 days. Take Tylenol (acetaminophen) 500 mg pills, 2 pills every 4-6 hours as needed for pain. For pain not relieved by Tylenol take oxycodone 5 mg pills, 1 pill every 4 hours as needed for pain. Do not drive or work while taking this medication since they can cause sleepiness. Oxycodone is a narcotic medication that can be addicting. If you are concerned about addiction you can ask the pharmacist for less pills or do not get this prescription filled. STOP TAKING TRAMADOL WHILE TAKING OXYCODONE Follow-up with your doctor in 2 days. Please return to the emergency department if your symptoms get worse or if you develop any symptoms that are concerning to you. Prescriptions: New colchicine [Colcrys] 0.6 mg tablet 0.6 mg PO ONCE Qty: 3 0RF Rx Instructions: 1.2 mg orally, then 1 hour later take 0.6 mg orally,take this on 05/09/2022 oxycodone 5 mg tablet 5 mg PO Q4H PRN (Reason: pain) Qty: 14 0RF Rx Instructions: Patient may request partial fill; Partial Fill upon patient request. No Action metformin 500 mg tablet 500 mg PO BIDWM Qty: 60 4RF Januvia 50 mg tablet 50 mg PO DAILY 90 Days Qty: 90 0RF Rx Instructions: Dose reduced based on GFR citalopram 40 mg Tablet 40 mg PO DAILY colchicine 0.6 mg tablet 0.6 mg PO DAILY Qty: 10 0RF prednisone 20 mg tablet 20 mg PO DAILY 5 Days Qty: 5 0RF prednisone 20 mg tablet 40 mg PO DAILY 5 Days Qty: 10 0RF colchicine 0.6 mg tablet 0.6 mg PO DAILY 10 Days Qty: 10 0RF atorvastatin 20 mg Tablet 20 mg PO BEDTIME tamsulosin 0.4 mg Capsule 0.4 mg PO DAILY@1700 lidocaine [Lidoderm] 5 % Adhesive Patch,Medicated 1 patch TOPICAL DAILY Rx Instructions: leave on most painful area for up to 12 hrs fluticasone propionate 50 mcg/actuation [place],Suspension 2 spray INTRANASAL DAILY PRN (Reason: Allergy Symptoms) Rx Instructions: administer into each nostril loratadine 10 mg Tablet 10 mg PO DAILY PRN (Reason: Allergy Symptoms) diclofenac sodium 1 % Gel 2 g TOPICAL BID Rx Instructions: apply to single elbow, wrist or hand; for hand includes palm/fingers/back of hand albuterol sulfate 2.5 mg /3 mL (0.083 %) solution for nebulization 2.5 mg inhalation TID albuterol sulfate [ProAir HFA] 90 mcg/actuation Hfa Aerosol Inhaler 2 puff INHALATION Q4-6H PRN (Reason: Shortness Of Breath) Jakafi 5 mg Tablet 5 mg PO BID amlodipine [Norvasc] 5 mg tablet 5 mg PO DAILY Qty: 30 0RF colchicine 0.6 mg tablet 0.6 mg PO DAILY Qty: 10 0RF loperamide [Imodium A-D] 2 mg capsule 2 mg PO Q6H PRN (Reason: loose stool) Qty: 14 0RF cefuroxime axetil 250 mg tablet 250 mg PO BID 7 Days Qty: 14 0RF tramadol 50 mg tablet 50 mg PO QID PRN (Reason: Pain (Scale Score 1-3)) acetaminophen [Tylenol Extra Strength] 500 mg tablet 1,000 mg PO TID PRN (Reason: Pain (Scale Score 4-6)) cholecalciferol (vitamin D3) 25 mcg (1,000 unit) capsule 25 mcg PO DAILY tolterodine [Detrol LA] 4 mg capsule,extended release 24hr 4 mg PO BEDTIME mirtazapine 15 mg tablet 15 mg PO BEDTIME PRN (Reason: Sleep) pantoprazole [Protonix] 40 mg tablet,delayed release (DR/EC) 40 mg PO DAILY@0630 Qty: 30 6RF famotidine [Pepcid] 40 mg tablet 40 mg PO BEDTIME 30 Days Qty: 30 6RF ferrous sulfate 325 mg (65 mg iron) tablet 325 mg PO DAILY Qty: 30 6RF
[2022-05-06] MEDS: oxyCODONE HCl Immed Release 5 MG TABLET 10 MG PO (00:21)
[2022-05-06] MEDS: Acetaminophen 325 MG TABLET 975 MG PO (00:21)
[2022-05-06] MEDS: Colchicine 0.6 MG TABLET 1.2 MG PO (01:10)
[2022-05-06] MEDS: Colchicine 0.6 MG TABLET PO (02:24)
== END 2022-05-06 02:28 | disposition home or self-care (01) ==
PROVIDERS: Emergency Provider Emergency Medicine Emergency Medical Services; PCP Internal Medicine
DX: M10.9 Gout, unspecified (principal); R60.0 Localized edema; M79.671 Pain in right foot; Z79.899 Other long term (current) drug therapy
CPT/HCPCS: 36415; 73620; 80053; 85025; 86140; 99284

== ENCOUNTER 2022-06-03 10:51 | Emergency (ER) | payer MEDICAID, SELFPAY ==
--- NOTE | ~2022-06-03 | XR_ITS ---
EXAMINATION: XR FOOT, RIGHT CLINICAL INFORMATION: Pain right big toe pain COMPARISON: X-ray 05/05/2022 TECHNIQUE: AP, lateral, and oblique views of the right foot. FINDINGS: No acute fracture or dislocation. Joint spaces are maintained. No erosive changes. No abnormal soft tissue calcification. Prominent plantar calcaneal spur. Small Achilles tendon insertional spurring. No acute osseous abnormalities otherwise seen. Alignment is anatomic. XR/XR foot RT 2V IMPRESSION: 1. No acute osseous abnormality seen. 2. Prominent plantar calcaneal spur.
[2022-06-03 11:21] VITALS: BP 133/77; PULSE 89; RESP 20; TEMP 36.8; O2SAT 95; BMI 41.8
--- NOTE | 2022-06-03 14:06 | ED_ITS ---
HPI - General Adult General Chief complaint: Extremity Problem Stated complaint: r leg pain Time Seen by Provider: 06/03/22 13:36 Source: patient Mode of arrival: ambulatory Limitations: no limitations History of Present Illness HPI narrative: 57-year-old female history of gout presents to ED for right big toe pain is been off and on for the past 2 months. Patient was seen here beginning of the month and discharged with steroid and colcichine. Patient denies any recent new trauma, redness, leg swelling, calf pain, chest pain, shortness of breath rash, bluish black discoloration, fever, or chills. Related Data Home Medications Medication Instructions Recorded Confirmed citalopram 40 mg tablet 40 mg PO DAILY 02/15/20 05/16/22 cholecalciferol (vitamin D3) 25 25 mcg PO DAILY 02/16/20 05/16/22 mcg (1,000 unit) capsule acetaminophen 500 mg tablet 1,000 mg PO TID PRN Pain (Scale 07/10/20 05/16/22 (Tylenol Extra Strength) Score 4-6) tramadol 50 mg tablet 50 mg PO QID PRN Pain (Scale Score 07/10/20 05/16/22 1-3) mirtazapine 15 mg tablet 15 mg PO BEDTIME PRN Sleep 11/28/20 05/16/22 tolterodine 4 mg capsule,extended 4 mg PO BEDTIME 11/28/20 05/16/22 release 24 hr (Detrol LA) albuterol sulfate 2.5 mg/3 mL 2.5 mg inhalation TID 10/07/21 05/16/22 (0.083 %) solution for nebulization albuterol sulfate 90 mcg/actuation 2 puff inhalation Q4-6H PRN 10/07/21 05/16/22 aerosol inhaler (ProAir HFA) Shortness Of Breath atorvastatin 20 mg tablet 20 mg PO BEDTIME 10/07/21 05/16/22 diclofenac sodium 1 % topical gel 2 g topical BID 10/07/21 05/16/22 fluticasone propionate 50 2 spray intranasal DAILY PRN 10/07/21 05/16/22 mcg/actuation nasal Allergy Symptoms spray,suspension lidocaine 5 % topical patch 1 patch topical DAILY 10/07/21 05/16/22 (Lidoderm) loratadine 10 mg tablet 10 mg PO DAILY PRN Allergy Symptoms 10/07/21 05/16/22 ruxolitinib 5 mg tablet (Jakafi) 5 mg PO BID 10/07/21 05/16/22 tamsulosin 0.4 mg capsule 0.4 mg PO DAILY@1700 10/07/21 05/16/22 Previous Rx's Medication Instructions Recorded amlodipine 5 mg tablet (Norvasc) 5 mg PO DAILY #30 tabs 10/08/21 famotidine 40 mg tablet (Pepcid) 40 mg PO BEDTIME 30 days #30 tabs 10/29/21 ferrous sulfate 325 mg (65 mg 325 mg PO DAILY #30 tabs 10/29/21 iron) tablet pantoprazole 40 mg tablet,delayed 40 mg PO DAILY@0630 #30 tabs 10/29/21 release (Protonix) colchicine 0.6 mg tablet 0.6 mg PO DAILY #10 tabs 12/30/21 metformin 500 mg tablet 500 mg PO BIDWM #60 tabs 01/18/22 sitagliptin phosphate 50 mg tablet 50 mg PO DAILY 90 days #90 tabs 01/18/22 (Januvia) cefuroxime axetil 250 mg tablet 250 mg PO BID 7 days #14 tabs 01/26/22 loperamide 2 mg capsule (Imodium 2 mg PO Q6H PRN loose stool #14 01/26/22 A-D) caps colchicine 0.6 mg tablet 0.6 mg PO DAILY #10 tabs 02/19/22 prednisone 20 mg tablet 20 mg PO DAILY 5 days #5 tabs 02/19/22 colchicine 0.6 mg tablet 0.6 mg PO DAILY 10 days #10 tabs 03/20/22 prednisone 20 mg tablet 40 mg PO DAILY 5 days #10 tabs 03/20/22 colchicine 0.6 mg tablet (Colcrys) 0.6 mg PO ONCE #3 tabs 05/06/22 oxycodone 5 mg tablet 5 mg PO Q4H PRN pain #14 tabs 05/06/22 colchicine 0.6 mg capsule 0.6 mg PO BID 5 days #10 caps 06/03/22 oxycodone 5 mg capsule 5 mg PO TID PRN pain 3 days #9 caps 06/03/22 prednisone 20 mg tablet 60 mg PO DAILY 5 days #15 tabs 06/03/22 Allergies Allergy/AdvReac Type Severity Reaction Status Date / Time aspirin [ASPIRIN] Allergy Intermediate SWELLING/ITCHING, Verified 05/16/22 09:55 rash Penicillins Allergy Intermediate ITCHING Verified 05/16/22 09:55 vancomycin [VANCOMYCIN] AdvReac Intermediate RED MAN Verified 05/16/22 09:55 SYNDROME PER MD Review of Systems Review of Systems: Right big toe pain Yes all other systems are reviewed and are negative [facility] Past Medical History Medical History Anemia Asthma Biliary dyskinesia Chronic myeloproliferative disease CKD stage 3 due to type 2 diabetes mellitus COVID-19 vaccine series completed Diabetes type 2, controlled Diabetic nephropathy Diabetic neuropathy associated with type 2 diabetes mellitus Dyslipidemia GERD (gastroesophageal reflux disease) Hiatal hernia History of depression History of gastritis History of myelofibrosis Hypertension Migraines Morbid obesity due to excess calories Obesity due to excess calories BERNIE (obstructive sleep apnea) Osteoarthritis of knees, bilateral Osteoarthritis of wrist Upper abdominal pain Vitamin B12 deficiency Surgical History Bone marrow replaced by transplant H/O stem cell transplant History of partial hysterectomy History of resection of meningioma Hx of breast reduction, elective Hx of colonoscopy Hx of esophagogastroduodenoscopy Family History Family History Father Heart problem HTN (hypertension) Mother Diabetes Family/Other Diabetes HTN (hypertension) Heart problem Sister Cancer Social History Social History Household Members: None Housing: Apartment Are you a primary managed care specialist to a significant other at home: No Do you presently have visiting nurse or other home services: Yes Alcohol intake: never Patient Tobacco Use Status: Never used Tobacco Advance Directives: No Advance Directives Information Provided: Yes Advance Directives Date on File: 03/24/16 Patient : No service: No Current occupational status: disabled Physical Exam ED Vital Signs: Vital Signs - 24 hr 06/03/22 11:21 Temperature 98.3 F Pulse Rate 89 Respiratory Rate 20 Blood Pressure 133/77 Pulse Oximetry 95 Oxygen Delivery Method Room Air BMI result Body Mass Index 41.8 Const General: cooperative, healthy appearing, comfortable, no acute distress, well developed, alert, awake and Physically active Orientation/consciousness: oriented to person, oriented to place, oriented to time and patient oriented x3 [facility] Head: Yes normal to inspection, Yes No palpable skull fracture present, Yes normocephalic and Yes atraumatic Eyes General: appearance normal, both eyes and all related structures Neck Neck: Yes normal visual inspection, Yes full ROM, Yes no lymphadenopathy, Yes no meningeal signs, Yes trachea midline, Yes supple, No anterior neck swelling and No tender Chest Chest palpation & inspection: normal inspection of the chest and normal palpation of entire chest wall Breast/axilla inspection: normal inspection of the breasts Resp Effort & Inspection: normal respiratory effort and able to speak in complete sentences Auscultation: clear to auscultation bilaterally Cardio Jugular venous distension: no JVD Heart sounds: S1 normal heart sound present and S2 normal heart sound present GI Inspection: Yes normal to inspection and No abdominal wall ecchymosis Palpation (GI): Soft to palpation, not firm, nontender, no guarding and not rigid General: No CVA tenderness and Yes no CVA tenderness Back/Spine/Pelvis Back: no CVA tenderness, No CVA tenderness and No back tenderness Skin General skin exam: no rashes or lesions noted and elasticity normal Neuro General: oriented to person, oriented to place, oriented to time, patient oriented x3, gait normal, tone normal, moves all extremities, Normal light touch and pain sensation, no meningeal signs, no focal motor deficits and CN's II-XI intact bilaterally Extrem General: Yes normal to inspection and Yes full ROM Ankle/foot/toe images: 1. Positive for tenderness and warmth. Negative for erythema, crepitus, ecchymosis, or deformities. Negative for open wounds. Rest of extremities normal. Motor/neuro/vascular exam intact. Negative for any pitting edema, leg swelling, or calf pain. Psych Appearance: grossly normal, well kempt and not disheveled Course Course Course Narrative: Most likely patient has, will do x-ray to ensure there is no new fracture or osteomyelitis. Reevaluation(s) Reevaluation #1: X-ray negative for fracture osteomyelitis. Patient will be discharged and treated as gout. Patient informed to follow-up with primary care provider and orthopedic surgeon to see if she needs intra-ocular glucocorticoid steroid injection. Time: 15:46 Medical Decision Making Medical Decision Making MDM Narrative: 57-year-old female presents to the ED for right big toe pain without any trauma. Patient is not toxic appearing. Not suspecting any sepsis. Negative for any erythema to indicate cellulitis. X-ray negative for osteomyelitis. Will be treated as gout Differential Diagnosis Differential Diagnoses: The differential diagnosis associated with the presentation includes (Gout, cellulitis, osteomyelitis, fracture) Radiology Impression Discussion of test interpretation with radiology: I have reviewed the radiologist's reading. Prescription Management I considered prescription management with: Pain Medication (colcichine, prednisone) Chronic Conditions Patient?s care impacted by: Other gout Discharge Plan Discharge Clinical Impression: Gout Patient Disposition: Home, Self-Care Instructions: Low Purine Diet (ED), Gout (ED) Additional Instructions: Tuviste rosario exacerbaci?n de gota. Ser? dado de candie con analg?sicos y esteroides. Michaela un seguimiento con lim proveedor de atenci?n primaria y cirujano ortop?dico para rosario posible inyecci?n intraarticular de esteroides si no mejora. Regrese al servicio de urgencias inmediatamente si empeora el enrojecimiento, la hinchaz?n, las estr?as sorto, la decoloraci?n manjinder azulada, el entumecimiento/hormigueo, la fiebre, los escalofr?os, la hinchaz?n de las piernas, el dolor en la pantorrilla, el dolor en el pecho, la dificultad para respirar o cualquier otro s?ntoma preocupante. Prescriptions: New prednisone 20 mg tablet 60 mg PO DAILY 5 Days Qty: 15 0RF colchicine 0.6 mg capsule 0.6 mg PO BID 5 Days Qty: 10 0RF oxycodone 5 mg capsule 5 mg PO TID PRN (Reason: pain) 3 Days Qty: 9 0RF Rx Instructions: Partial Fill upon patient request. No Action metformin 500 mg tablet 500 mg PO BIDWM Qty: 60 4RF Januvia 50 mg tablet 50 mg PO DAILY 90 Days Qty: 90 0RF Rx Instructions: Dose reduced based on GFR citalopram 40 mg Tablet 40 mg PO DAILY colchicine 0.6 mg tablet 0.6 mg PO DAILY Qty: 10 0RF prednisone 20 mg tablet 20 mg PO DAILY 5 Days Qty: 5 0RF prednisone 20 mg tablet 40 mg PO DAILY 5 Days Qty: 10 0RF colchicine 0.6 mg tablet 0.6 mg PO DAILY 10 Days Qty: 10 0RF colchicine [Colcrys] 0.6 mg tablet 0.6 mg PO ONCE Qty: 3 0RF Rx Instructions: 1.2 mg orally, then 1 hour later take 0.6 mg orally,take this on 05/09/2022 oxycodone 5 mg tablet 5 mg PO Q4H PRN (Reason: pain) Qty: 14 0RF Rx Instructions: Patient may request partial fill; Partial Fill upon patient request. atorvastatin 20 mg Tablet 20 mg PO BEDTIME tamsulosin 0.4 mg Capsule 0.4 mg PO DAILY@1700 lidocaine [Lidoderm] 5 % Adhesive Patch,Medicated 1 patch TOPICAL DAILY Rx Instructions: leave on most painful area for up to 12 hrs fluticasone propionate 50 mcg/actuation [place]unker,Suspension 2 spray INTRANASAL DAILY PRN (Reason: Allergy Symptoms) Rx Instructions: administer into each nostril loratadine 10 mg Tablet 10 mg PO DAILY PRN (Reason: Allergy Symptoms) diclofenac sodium 1 % Gel 2 g TOPICAL BID Rx Instructions: apply to single elbow, wrist or hand; for hand includes palm/fingers/back of hand albuterol sulfate 2.5 mg /3 mL (0.083 %) solution for nebulization 2.5 mg inhalation TID albuterol sulfate [ProAir HFA] 90 mcg/actuation Hfa Aerosol Inhaler 2 puff INHALATION Q4-6H PRN (Reason: Shortness Of Breath) Jakafi 5 mg Tablet 5 mg PO BID amlodipine [Norvasc] 5 mg tablet 5 mg PO DAILY Qty: 30 0RF colchicine 0.6 mg tablet 0.6 mg PO DAILY Qty: 10 0RF loperamide [Imodium A-D] 2 mg capsule 2 mg PO Q6H PRN (Reason: loose stool) Qty: 14 0RF cefuroxime axetil 250 mg tablet 250 mg PO BID 7 Days Qty: 14 0RF tramadol 50 mg tablet 50 mg PO QID PRN (Reason: Pain (Scale Score 1-3)) acetaminophen [Tylenol Extra Strength] 500 mg tablet 1,000 mg PO TID PRN (Reason: Pain (Scale Score 4-6)) cholecalciferol (vitamin D3) 25 mcg (1,000 unit) capsule 25 mcg PO DAILY tolterodine [Detrol LA] 4 mg capsule,extended release 24hr 4 mg PO BEDTIME mirtazapine 15 mg tablet 15 mg PO BEDTIME PRN (Reason: Sleep) pantoprazole [Protonix] 40 mg tablet,delayed release (DR/EC) 40 mg PO DAILY@0630 Qty: 30 6RF famotidine [Pepcid] 40 mg tablet 40 mg PO BEDTIME 30 Days Qty: 30 6RF ferrous sulfate 325 mg (65 mg iron) tablet 325 mg PO DAILY Qty: 30 6RF Referrals: Kalpana Baptiste MD [Primary Care Provider] - (Gout) Interventions: ED Discharge Assessment Last Done: 06/03/22 16:08 Discharge Date/Time: 06/03/22 16:30 Print Language: Romanian
== END 2022-06-03 16:30 | disposition home or self-care (01) ==
PROVIDERS: Emergency Provider Student in an Organized Health Care Education/Training Program; PCP Internal Medicine
DX: M10.9 Gout, unspecified (principal); M79.671 Pain in right foot
CPT/HCPCS: 73620; 99283

== ENCOUNTER 2022-06-05 09:49 | Outpatient (RCR) | payer MEDICAID, SELFPAY | END 2022-08-17 08:40 | disposition home or self-care (01) | LOC: HO.PT 09:49 | PROVIDERS: PCP Internal Medicine; Visit Provider Internal Medicine Medical Oncology | DX: H81.10 Benign paroxysmal vertigo, unspecified ear (principal) | CPT/HCPCS: 97161 ==

== ENCOUNTER 2022-07-03 13:12 | Emergency (ER) | payer MEDICAID, SELFPAY ==
--- NOTE | ~2022-07-03 | XR_ITS ---
EXAMINATION: XR CHEST CLINICAL INFORMATION: Shortness of breath COMPARISON: 11/14/2020 TECHNIQUE: 2 views of the chest were obtained. FINDINGS: No focal consolidation, pulmonary edema, or pleural effusion. Stable cardiomediastinal silhouette. XR/XR chest 2V IMPRESSION: Unremarkable examination.
[2022-07-03 13:17] VITALS: BP 155/83; PULSE 104; RESP 20; TEMP 36.3; O2SAT 97; BMI 40.8
--- NOTE | 2022-07-03 13:18 | ED.GENADULT ---
HPI - General Adult General Chief complaint: Abdominal Pain <Yeyo Farooq - Last Filed: 07/03/22 13:23> Stated complaint: Asthma/Diarrhea <Yeyo Farooq - Last Filed: 07/03/22 13:23> Time Seen by Provider: 07/04/22 03:01 <Yeyo Farooq - Last Filed: 07/03/22 13:23> Source: patient <Arun Yepez MD - Last Filed: 07/04/22 05:59> Mode of arrival: ambulatory <Arun Yepez MD - Last Filed: 07/04/22 05:59> Limitations: no limitations <Arun Yepez MD - Last Filed: 07/04/22 05:59> History of Present Illness HPI narrative: Patient obese with history of sleep apnea, asthma comes here for 3 weeks of abdominal pain with loose bowels 3 to 4 times a day no nausea no vomiting also complaining of nasal congestion for last 3 days with cough with mucopurulent expectoration specially in the morning no fever no chills no other family member sick had low-grade fever today temperature was 100.6 degrees on arrival <Arun Yepez MD - Last Filed: 07/04/22 05:59> Related Data Home medications: Home Medications Medication Instructions Recorded Confirmed citalopram 40 mg tablet 40 mg PO DAILY 02/15/20 05/16/22 cholecalciferol (vitamin D3) 25 25 mcg PO DAILY 02/16/20 05/16/22 mcg (1,000 unit) capsule acetaminophen 500 mg tablet 1,000 mg PO TID PRN Pain (Scale 07/10/20 05/16/22 (Tylenol Extra Strength) Score 4-6) tramadol 50 mg tablet 50 mg PO QID PRN Pain (Scale Score 07/10/20 05/16/22 1-3) mirtazapine 15 mg tablet 15 mg PO BEDTIME PRN Sleep 11/28/20 05/16/22 tolterodine 4 mg capsule,extended 4 mg PO BEDTIME 11/28/20 05/16/22 release 24 hr (Detrol LA) albuterol sulfate 2.5 mg/3 mL 2.5 mg inhalation TID 10/07/21 05/16/22 (0.083 %) solution for nebulization albuterol sulfate 90 mcg/actuation 2 puff inhalation Q4-6H PRN 10/07/21 05/16/22 aerosol inhaler (ProAir HFA) Shortness Of Breath atorvastatin 20 mg tablet 20 mg PO BEDTIME 10/07/21 05/16/22 diclofenac sodium 1 % topical gel 2 g topical BID 10/07/21 05/16/22 fluticasone propionate 50 2 spray intranasal DAILY PRN 10/07/21 05/16/22 mcg/actuation nasal Allergy Symptoms spray,suspension lidocaine 5 % topical patch 1 patch topical DAILY 10/07/21 05/16/22 (Lidoderm) loratadine 10 mg tablet 10 mg PO DAILY PRN Allergy Symptoms 10/07/21 05/16/22 ruxolitinib 5 mg tablet (Jakafi) 5 mg PO BID 10/07/21 05/16/22 tamsulosin 0.4 mg capsule 0.4 mg PO DAILY@1700 10/07/21 05/16/22 Previous Rx's Medication Instructions Recorded amlodipine 5 mg tablet (Norvasc) 5 mg PO DAILY #30 tabs 10/08/21 famotidine 40 mg tablet (Pepcid) 40 mg PO BEDTIME 30 days #30 tabs 10/29/21 ferrous sulfate 325 mg (65 mg 325 mg PO DAILY #30 tabs 10/29/21 iron) tablet pantoprazole 40 mg tablet,delayed 40 mg PO DAILY@0630 #30 tabs 10/29/21 release (Protonix) colchicine 0.6 mg tablet 0.6 mg PO DAILY #10 tabs 12/30/21 metformin 500 mg tablet 500 mg PO BIDWM #60 tabs 01/18/22 sitagliptin phosphate 50 mg tablet 50 mg PO DAILY 90 days #90 tabs 01/18/22 (Januvia) cefuroxime axetil 250 mg tablet 250 mg PO BID 7 days #14 tabs 01/26/22 loperamide 2 mg capsule (Imodium 2 mg PO Q6H PRN loose stool #14 01/26/22 A-D) caps colchicine 0.6 mg tablet 0.6 mg PO DAILY #10 tabs 02/19/22 prednisone 20 mg tablet 20 mg PO DAILY 5 days #5 tabs 02/19/22 colchicine 0.6 mg tablet 0.6 mg PO DAILY 10 days #10 tabs 03/20/22 prednisone 20 mg tablet 40 mg PO DAILY 5 days #10 tabs 03/20/22 colchicine 0.6 mg tablet (Colcrys) 0.6 mg PO ONCE #3 tabs 05/06/22 oxycodone 5 mg tablet 5 mg PO Q4H PRN pain #14 tabs 05/06/22 colchicine 0.6 mg capsule 0.6 mg PO BID 5 days #10 caps 06/03/22 oxycodone 5 mg capsule 5 mg PO TID PRN pain 3 days #9 caps 06/03/22 prednisone 20 mg tablet 60 mg PO DAILY 5 days #15 tabs 06/03/22 benzonatate 200 mg capsule 200 mg PO TID PRN cough #30 caps 07/04/22 cefuroxime axetil 500 mg tablet 500 mg PO BID 7 days #14 tabs 07/04/22 dicyclomine 20 mg tablet 20 mg PO QID PRN abdominal pain 07/04/22 #20 tabs <Yeyo Farooq - Last Filed: 07/03/22 13:23> Allergies/adverse reactions: Allergies Allergy/AdvReac Type Severity Reaction Status Date / Time aspirin [ASPIRIN] Allergy Intermediate SWELLING/ITCHING, Verified 07/03/22 13:16 rash Penicillins Allergy Intermediate ITCHING Verified 07/03/22 13:16 vancomycin [VANCOMYCIN] AdvReac Intermediate RED MAN Verified 07/03/22 13:16 SYNDROME PER MD <Yeyo Farooq - Last Filed: 07/03/22 13:23> Review of Systems Review of Systems: Yes all other systems are reviewed and are negative <Arun Yepez MD - Last Filed: 07/04/22 05:59> [facility] Past Medical History Medical History: Medical History Anemia Asthma Biliary dyskinesia Chronic myeloproliferative disease CKD stage 3 due to type 2 diabetes mellitus COVID-19 vaccine series completed Diabetes type 2, controlled Diabetic nephropathy Diabetic neuropathy associated with type 2 diabetes mellitus Dyslipidemia GERD (gastroesophageal reflux disease) Hiatal hernia History of depression History of gastritis History of myelofibrosis Hypertension Migraines Morbid obesity due to excess calories Obesity due to excess calories BERNIE (obstructive sleep apnea) Osteoarthritis of knees, bilateral Osteoarthritis of wrist Upper abdominal pain Vitamin B12 deficiency <Yeyo Farooq - Last Filed: 07/03/22 13:23> Surgical History: Surgical History Bone marrow replaced by transplant H/O stem cell transplant History of partial hysterectomy History of resection of meningioma Hx of breast reduction, elective Hx of colonoscopy Hx of esophagogastroduodenoscopy <Yeyo Farooq - Last Filed: 07/03/22 13:23> Family History Family History: Family History Father Heart problem HTN (hypertension) Mother Diabetes Family/Other Diabetes HTN (hypertension) Heart problem Sister Cancer <Yeyo Farooq - Last Filed: 07/03/22 13:23> Social History Social History: Social History Household Members: None Housing: Apartment Are you a primary post anesthesia care unit nurse to a significant other at home: No Do you presently have visiting nurse or other home services: Yes Alcohol intake: never Patient Tobacco Use Status: Never used Tobacco Advance Directives: No Advance Directives Information Provided: Yes Advance Directives Date on File: 03/24/16 service: No Current occupational status: disabled <Yeyo Marialuisay - Last Filed: 07/03/22 13:23> Physical Exam ED Vital Signs: Vital Signs - 24 hr 07/03/22 13:17 07/03/22 14:47 07/04/22 01:28 Temperature 97.4 F 97.8 F 100.0 F Pulse Rate 104 H 92 109 H Respiratory Rate 20 18 24 H Blood Pressure 155/83 H 142/97 H 151/77 H Pulse Oximetry 97 96 94 Oxygen Delivery Method Room Air Room Air Room Air 07/04/22 04:00 07/04/22 04:13 Temperature 100.6 F H Pulse Rate 89 105 H Respiratory Rate 22 H 18 Blood Pressure 170/75 H Pulse Oximetry 95 Oxygen Delivery Method BMI result Body Mass Index 40.8 <Yeyo Farooq - Last Filed: 07/03/22 13:23> Vital Signs - 24 hr 07/03/22 13:17 07/03/22 14:47 03/02/23 01:28 Temperature 97.4 F 97.8 F 100.0 F Pulse Rate 104 H 92 109 H Respiratory Rate 20 18 24 H Blood Pressure 155/83 H 142/97 H 151/77 H Pulse Oximetry 97 96 94 Oxygen Delivery Method Room Air Room Air Room Air 07/04/22 04:00 07/04/22 04:13 Temperature 100.6 F H Pulse Rate 89 105 H Respiratory Rate 22 H 18 Blood Pressure 170/75 H Pulse Oximetry 95 Oxygen Delivery Method BMI result Body Mass Index 40.8 <Arun Yepez MD - Last Filed: 07/04/22 05:59> Appearance: Alert. Oriented X3. No acute distress. Occasional cough Eyes: No pallor or icterus ENT: Pharynx normal. Oral Mucosa moist Neck: Normal inspection. Neck supple. CVS: Normal heart rate and rhythm. Pulses normal. Respiratory: No respiratory distress. Equal air entry bilateral, bilateral wheezing prolonged expiration no crackle Abdomen: Soft and nontender. Bowel sounds are present, no mass palpable, no CVA tenderness Skin: Skin warm and dry. Normal skin color. Normal skin turgor. Extremities: No lower extremity edema. No calf tenderness Neuro: Oriented X 3. No motor deficit. No sensory deficit. <Arun Yepez MD - Last Filed: 07/04/22 05:59> Course Course Course Narrative: RME- 57-year-old primarily Filipino-speaking female with past medical history significant for obesity, diabetes, hypertension, neuropathy, asthma, chronic kidney disease presents for evaluation of abdominal pain and shortness of breath. She reports abdominal pain and diarrhea for the last 3 weeks. She reports shortness of breath increased cough since yesterday. Plan: Labs, viral swab, chest x-ray <Yeyo Farooq - Last Filed: 07/03/22 13:23> Medications Administered Discontinued Medications Generic Name Dose Route Start Last Admin Trade Name Freq PRN Reason Stop Dose Admin Albuterol Sulfate 2.5 mg/ 0 mg 07/04/22 03:48 07/04/22 03:58 Ipratropium [place] 0.5 mg INHALE 07/04/22 03:49 1 each ONCE ONE Administration Dicyclomine HCl 20 mg 07/04/22 03:50 07/04/22 05:03 Dicyclomine Hcl 10 Mg Capsule PO 07/04/22 03:51 20 mg ONCE ONE Administration Guaifenesin/Codeine Phosphate 10 ml 07/04/22 03:51 07/04/22 05:03 Guaifen/Codeine Sf 200/20/10ml 10 Ml Liquid PO 07/04/22 03:52 10 ml ONCE ONE Administration <Yeyo Farooq - Last Filed: 07/03/22 13:23> Medications Administered Discontinued Medications Generic Name Dose Route Start Last Admin Trade Name Justino PRN Reason Stop Dose Admin Albuterol Sulfate 2.5 mg/ 0 mg 07/04/22 03:48 07/04/22 03:58 Ipratropium [place] 0.5 mg INHALE 07/04/22 03:49 1 each ONCE ONE Administration Dicyclomine HCl 20 mg 07/04/22 03:50 07/04/22 05:03 Dicyclomine Hcl 10 Mg Capsule PO 07/04/22 03:51 20 mg ONCE ONE Administration Guaifenesin/Codeine Phosphate 10 ml 07/04/22 03:51 07/04/22 05:03 Guaifen/Codeine Sf 200/20/10ml 10 Ml Liquid PO 07/04/22 03:52 10 ml ONCE ONE Administration <Arun Yepez MD - Last Filed: 07/04/22 05:59> Medical Decision Making Medical Decision Making [facility] Narrative: Patient nonspecific abdominal pain likely IBS improved after dissecting. Patient's COVID floor and influenza negative chest x-ray negative will give her Ceftin for bronchitis discharge patient home patient is saturating 95% on room <Arun Yepez MD - Last Filed: 07/04/22 05:59> Lab Data [facility] Lab Attestation statement: I reviewed the patient's lab results. <Arun Yepez MD - Last Filed: 07/04/22 05:59> Result Diagrams: 07/03/22 13:48 07/03/22 13:48 <Yeyo Farooq - Last Filed: 07/03/22 13:23> Labs: Lab Results 07/03/22 07/03/22 07/03/22 Range/Units 13:48 13:48 13:48 WBC 6.0 (4.8-10.8) X10*3/uL RBC 3.23 L (4.20-5.50) X10*6/uL Hgb 9.5 L (12.0-16.0) g/dl Hct 28.6 L (37.0-47.0) % MCV 88.5 (80.0-98.0) fL MCH 29.4 (27.0-33.0) pg MCHC 33.2 (31.0-35.0) g/dl RDW 13.6 (11.0-16.0) % Plt Count 261 (160-400) X10*3/uL MPV 8.9 L (9.4-12.3) fL Immature Gran % (Auto) 0.8 H (0.0-0.4) % Neut % (Auto) 61.3 (45-73) % Lymph % (Auto) 25.6 (20-40) % [place] % (Auto) 11.1 H (2-11) % Eos % (Auto) 1.0 (0-4) % Baso % (Auto) 0.2 (0-2) % Lymph # (Auto) 1.5 (1.2-4.9) X10*3/uL [place] # (Auto) 0.7 (0.1-1.2) X10*3/uL Eos # (Auto) 0.1 (0.0-0.4) X10*3/uL Baso # (Auto) 0.0 (0.0-0.2) X10*3/uL Abs Immat Gran (auto) 0.05 H (0.00-0.03) X10*3/uL Absolute Neuts (auto) 3.7 (2.0-8.3) x10*3/uL Absolute Nucleated RBC 0.000 (0.0-0.012) X10*3/uL Nucleated RBC % (auto) 0.0 (0.0-0.2) /100WBC Sodium 142 (135-145) mmol/L Potassium 4.3 (3.3-5.1) mmol/L Chloride 106 (96-108) mmol/L Carbon Dioxide 24 (22-29) mmol/L Anion Gap 16 (12-20) BUN 13 (9-16) mg/dL Creatinine 1.42 H (0.5-1.4) mg/dL Estim Creat Clear Calc 56.7 Estimated GFR 38 Random Glucose 106 (60-115) mg/dL Calcium 8.6 D (8.4-10.2) mg/dL Total Bilirubin 0.5 (0.0-1.0) mg/dL AST 25 (5-31) U/L ALT 29 (0-31) U/L Alkaline Phosphatase 60 (39-117) U/L Total Protein 7.0 (6.5-8.0) g/dL Albumin 4.3 (3.5-5.0) g/dL Urine Color Urine Appearance Urine pH (5.0-9.0) Ur Specific [place] (1.005-1.025) Urine Protein (Neg-Trace) mg/dL Urine Glucose (UA) (Negative) mg/dL Urine Ketones (Negative) mg/dL Urine Blood (Negative) Urine Nitrite (Negative) Ur Leukocyte Esterase (Negative) Urine RBC (0-2) /HPF Urine WBC (0-5) /HPF Ur Squamous Epith Cells (0-2) /HPF Urine Bacteria (None Seen) Hyaline Casts (0-2) /LPF Influenza Type A (PCR) NEGATIVE (Negative) Influenza Type B (PCR) NEGATIVE (Negative) RSV RNA Qual (PCR) NEGATIVE (Negative) SARS-CoV-2 RNA (RT-PCR) NEGATIVE (Negative) 07/04/22 Range/Units 01:37 WBC (4.8-10.8) X10*3/uL RBC (4.20-5.50) X10*6/uL Hgb (12.0-16.0) g/dl Hct (37.0-47.0) % MCV (80.0-98.0) fL MCH (27.0-33.0) pg MCHC (31.0-35.0) g/dl RDW (11.0-16.0) % Plt Count (160-400) X10*3/uL MPV (9.4-12.3) fL Immature Gran % (Auto) (0.0-0.4) % Neut % (Auto) (45-73) % Lymph % (Auto) (20-40) % [place] % (Auto) (2-11) % Eos % (Auto) (0-4) % Baso % (Auto) (0-2) % Lymph # (Auto) (1.2-4.9) X10*3/uL [place] # (Auto) (0.1-1.2) X10*3/uL Eos # (Auto) (0.0-0.4) X10*3/uL Baso # (Auto) (0.0-0.2) X10*3/uL Abs Immat Gran (auto) (0.00-0.03) X10*3/uL Absolute Neuts (auto) (2.0-8.3) x10*3/uL Absolute Nucleated RBC (0.0-0.012) X10*3/uL Nucleated RBC % (auto) (0.0-0.2) /100WBC Sodium (135-145) mmol/L Potassium (3.3-5.1) mmol/L Chloride (96-108) mmol/L Carbon Dioxide (22-29) mmol/L Anion Gap (12-20) BUN (9-16) mg/dL Creatinine (0.5-1.4) mg/dL Estim Creat Clear Calc Estimated GFR Random Glucose (60-115) mg/dL Calcium (8.4-10.2) mg/dL Total Bilirubin (0.0-1.0) mg/dL AST (5-31) U/L ALT (0-31) U/L Alkaline Phosphatase (39-117) U/L Total Protein (6.5-8.0) g/dL Albumin (3.5-5.0) g/dL Urine Color Yellow Urine Appearance Clear Urine pH 5.5 (5.0-9.0) Ur Specific [place] 1.015 (1.005-1.025) Urine Protein 300 (3+) H (Neg-Trace) mg/dL Urine Glucose (UA) Negative (Negative) mg/dL Urine Ketones Negative (Negative) mg/dL Urine Blood Moderate (2+) H (Negative) Urine Nitrite Negative (Negative) Ur Leukocyte Esterase Trace H (Negative) Urine RBC 11-20 H (0-2) /HPF Urine WBC 0-5 (0-5) /HPF Ur Squamous Epith Cells 6-10 (0-2) /HPF Urine Bacteria None Seen (None Seen) Hyaline Casts 3-5 (0-2) /LPF Influenza Type A (PCR) (Negative) Influenza Type B (PCR) (Negative) RSV RNA Qual (PCR) (Negative) SARS-CoV-2 RNA (RT-PCR) (Negative) <Yeyo Farooq - Last Filed: 07/03/22 13:23> Lab Results 07/03/22 07/03/22 07/03/22 Range/Units 13:48 13:48 13:48 WBC 6.0 (4.8-10.8) X10*3/uL RBC 3.23 L (4.20-5.50) X10*6/uL Hgb 9.5 L (12.0-16.0) g/dl Hct 28.6 L (37.0-47.0) % MCV 88.5 (80.0-98.0) fL MCH 29.4 (27.0-33.0) pg MCHC 33.2 (31.0-35.0) g/dl RDW 13.6 (11.0-16.0) % Plt Count 261 (160-400) X10*3/uL MPV 8.9 L (9.4-12.3) fL Immature Gran % (Auto) 0.8 H (0.0-0.4) % Neut % (Auto) 61.3 (45-73) % Lymph % (Auto) 25.6 (20-40) % [place] % (Auto) 11.1 H (2-11) % Eos % (Auto) 1.0 (0-4) % Baso % (Auto) 0.2 (0-2) % Lymph # (Auto) 1.5 (1.2-4.9) X10*3/uL [place] # (Auto) 0.7 (0.1-1.2) X10*3/uL Eos # (Auto) 0.1 (0.0-0.4) X10*3/uL Baso # (Auto) 0.0 (0.0-0.2) X10*3/uL Abs Immat Gran (auto) 0.05 H (0.00-0.03) X10*3/uL Absolute Neuts (auto) 3.7 (2.0-8.3) x10*3/uL Absolute Nucleated RBC 0.000 (0.0-0.012) X10*3/uL Nucleated RBC % (auto) 0.0 (0.0-0.2) /100WBC Sodium 142 (135-145) mmol/L Potassium 4.3 (3.3-5.1) mmol/L Chloride 106 (96-108) mmol/L Carbon Dioxide 24 (22-29) mmol/L Anion Gap 16 (12-20) BUN 13 (9-16) mg/dL Creatinine 1.42 H (0.5-1.4) mg/dL Estim Creat Clear Calc 56.7 Estimated GFR 38 Random Glucose 106 (60-115) mg/dL Calcium 8.6 D (8.4-10.2) mg/dL Total Bilirubin 0.5 (0.0-1.0) mg/dL AST 25 (5-31) U/L ALT 29 (0-31) U/L Alkaline Phosphatase 60 (39-117) U/L Total Protein 7.0 (6.5-8.0) g/dL Albumin 4.3 (3.5-5.0) g/dL Urine Color Urine Appearance Urine pH (5.0-9.0) Ur Specific [place] (1.005-1.025) Urine Protein (Neg-Trace) mg/dL Urine Glucose (UA) (Negative) mg/dL Urine Ketones (Negative) mg/dL Urine Blood (Negative) Urine Nitrite (Negative) Ur Leukocyte Esterase (Negative) Urine RBC (0-2) /HPF Urine WBC (0-5) /HPF Ur Squamous Epith Cells (0-2) /HPF Urine Bacteria (None Seen) Hyaline Casts (0-2) /LPF Influenza Type A (PCR) NEGATIVE (Negative) Influenza Type B (PCR) NEGATIVE (Negative) RSV RNA Qual (PCR) NEGATIVE (Negative) SARS-CoV-2 RNA (RT-PCR) NEGATIVE (Negative) 07/04/22 Range/Units 01:37 WBC (4.8-10.8) X10*3/uL RBC (4.20-5.50) X10*6/uL Hgb (12.0-16.0) g/dl Hct (37.0-47.0) % MCV (80.0-98.0) fL MCH (27.0-33.0) pg MCHC (31.0-35.0) g/dl RDW (11.0-16.0) % Plt Count (160-400) X10*3/uL MPV (9.4-12.3) fL Immature Gran % (Auto) (0.0-0.4) % Neut % (Auto) (45-73) % Lymph % (Auto) (20-40) % [place] % (Auto) (2-11) % Eos % (Auto) (0-4) % Baso % (Auto) (0-2) % Lymph # (Auto) (1.2-4.9) X10*3/uL [place] # (Auto) (0.1-1.2) X10*3/uL Eos # (Auto) (0.0-0.4) X10*3/uL Baso # (Auto) (0.0-0.2) X10*3/uL Abs Immat Gran (auto) (0.00-0.03) X10*3/uL Absolute Neuts (auto) (2.0-8.3) x10*3/uL Absolute Nucleated RBC (0.0-0.012) X10*3/uL Nucleated RBC % (auto) (0.0-0.2) /100WBC Sodium (135-145) mmol/L Potassium (3.3-5.1) mmol/L Chloride (96-108) mmol/L Carbon Dioxide (22-29) mmol/L Anion Gap (12-20) BUN (9-16) mg/dL Creatinine (0.5-1.4) mg/dL Estim Creat Clear Calc Estimated GFR Random Glucose (60-115) mg/dL Calcium (8.4-10.2) mg/dL Total Bilirubin (0.0-1.0) mg/dL AST (5-31) U/L ALT (0-31) U/L Alkaline Phosphatase (39-117) U/L Total Protein (6.5-8.0) g/dL Albumin (3.5-5.0) g/dL Urine Color Yellow Urine Appearance Clear Urine pH 5.5 (5.0-9.0) Ur Specific [place] 1.015 (1.005-1.025) Urine Protein 300 (3+) H (Neg-Trace) mg/dL Urine Glucose (UA) Negative (Negative) mg/dL Urine Ketones Negative (Negative) mg/dL Urine Blood Moderate (2+) H (Negative) Urine Nitrite Negative (Negative) Ur Leukocyte Esterase Trace H (Negative) Urine RBC 11-20 H (0-2) /HPF Urine WBC 0-5 (0-5) /HPF Ur Squamous Epith Cells 6-10 (0-2) /HPF Urine Bacteria None Seen (None Seen) Hyaline Casts 3-5 (0-2) /LPF Influenza Type A (PCR) (Negative) Influenza Type B (PCR) (Negative) RSV RNA Qual (PCR) (Negative) SARS-CoV-2 RNA (RT-PCR) (Negative) <Arun Yepez MD - Last Filed: 07/04/22 05:59> Discharge Plan Discharge Clinical Impression: Acute bronchitis, Diarrhea <Yeyo Farooq - Last Filed: 07/03/22 13:23> Patient Disposition: Home, Self-Care <Yeyo Farooq - Last Filed: 07/03/22 13:23> Instructions: Acute Bronchitis (ED), Acute Diarrhea (ED) <Yeyo Farooq - Last Filed: 07/03/22 13:23> Additional Instructions: Drink plenty of fluids Bentyl for abdominal pain and diarrhea Antibiotic as prescribed for bronchitis Continue to use the inhaler/nebulizing treatment every 4-6 hours Cough drops as prescribed Follow with PCP if not better <Yeyo Farooq - Last Filed: 07/03/22 13:23> Prescriptions: New cefuroxime axetil 500 mg tablet 500 mg PO BID 7 Days Qty: 14 0RF benzonatate 200 mg capsule 200 mg PO TID PRN (Reason: cough) Qty: 30 0RF dicyclomine 20 mg tablet 20 mg PO QID PRN (Reason: abdominal pain) Qty: 20 0RF No Action metformin 500 mg tablet 500 mg PO BIDWM Qty: 60 4RF Januvia 50 mg tablet 50 mg PO DAILY 90 Days Qty: 90 0RF Rx Instructions: Dose reduced based on GFR citalopram 40 mg Tablet 40 mg PO DAILY colchicine 0.6 mg tablet 0.6 mg PO DAILY Qty: 10 0RF prednisone 20 mg tablet 20 mg PO DAILY 5 Days Qty: 5 0RF prednisone 20 mg tablet 40 mg PO DAILY 5 Days Qty: 10 0RF colchicine 0.6 mg tablet 0.6 mg PO DAILY 10 Days Qty: 10 0RF colchicine [Colcrys] 0.6 mg tablet 0.6 mg PO ONCE Qty: 3 0RF Rx Instructions: 1.2 mg orally, then 1 hour later take 0.6 mg orally,take this on 05/09/2022 oxycodone 5 mg tablet 5 mg PO Q4H PRN (Reason: pain) Qty: 14 0RF Rx Instructions: Patient may request partial fill; Partial Fill upon patient request. prednisone 20 mg tablet 60 mg PO DAILY 5 Days Qty: 15 0RF colchicine 0.6 mg capsule 0.6 mg PO BID 5 Days Qty: 10 0RF oxycodone 5 mg capsule 5 mg PO TID PRN (Reason: pain) 3 Days Qty: 9 0RF Rx Instructions: Partial Fill upon patient request. atorvastatin 20 mg Tablet 20 mg PO BEDTIME tamsulosin 0.4 mg Capsule 0.4 mg PO DAILY@1700 lidocaine [Lidoderm] 5 % Adhesive Patch,Medicated 1 patch TOPICAL DAILY Rx Instructions: leave on most painful area for up to 12 hrs fluticasone propionate 50 mcg/actuation [place],Suspension 2 spray INTRANASAL DAILY PRN (Reason: Allergy Symptoms) Rx Instructions: administer into each nostril loratadine 10 mg Tablet 10 mg PO DAILY PRN (Reason: Allergy Symptoms) diclofenac sodium 1 % Gel 2 g TOPICAL BID Rx Instructions: apply to single elbow, wrist or hand; for hand includes palm/fingers/back of hand albuterol sulfate 2.5 mg /3 mL (0.083 %) solution for nebulization 2.5 mg inhalation TID albuterol sulfate [ProAir HFA] 90 mcg/actuation Hfa Aerosol Inhaler 2 puff INHALATION Q4-6H PRN (Reason: Shortness Of Breath) Jakafi 5 mg Tablet 5 mg PO BID amlodipine [Norvasc] 5 mg tablet 5 mg PO DAILY Qty: 30 0RF colchicine 0.6 mg tablet 0.6 mg PO DAILY Qty: 10 0RF loperamide [Imodium A-D] 2 mg capsule 2 mg PO Q6H PRN (Reason: loose stool) Qty: 14 0RF cefuroxime axetil 250 mg tablet 250 mg PO BID 7 Days Qty: 14 0RF tramadol 50 mg tablet 50 mg PO QID PRN (Reason: Pain (Scale Score 1-3)) acetaminophen [Tylenol Extra Strength] 500 mg tablet 1,000 mg PO TID PRN (Reason: Pain (Scale Score 4-6)) cholecalciferol (vitamin D3) 25 mcg (1,000 unit) capsule 25 mcg PO DAILY tolterodine [Detrol LA] 4 mg capsule,extended release 24hr 4 mg PO BEDTIME mirtazapine 15 mg tablet 15 mg PO BEDTIME PRN (Reason: Sleep) pantoprazole [Protonix] 40 mg tablet,delayed release (DR/EC) 40 mg PO DAILY@0630 Qty: 30 6RF famotidine [Pepcid] 40 mg tablet 40 mg PO BEDTIME 30 Days Qty: 30 6RF ferrous sulfate 325 mg (65 mg iron) tablet 325 mg PO DAILY Qty: 30 6RF <Yeyo Farooq - Last Filed: 07/03/22 13:23>
[2022-07-03 13:55] LABS: MANUAL DIFF FLAG NO
[2022-07-03 13:57] LABS: Basophils Percent Auto 0.2 % (0-2); Eosinophils Absolute Auto 0.1 X10*3/uL (0.0-0.4); Hematocrit 28.6 % (37.0-47.0); Hemoglobin 9.5 g/dl (12.0-16.0); Imm Gran Abs Auto 0.05 X10*3/uL (0.00-0.03); Imm Gran Pct Auto 0.8 % (0.0-0.4); Lymphocytes Absolute Auto 1.5 X10*3/uL (1.2-4.9); Lymphocytes Percent Auto 25.6 % (20-40); Mean Corpuscular HGB Conc 33.2 g/dl (31.0-35.0); Mean Corpuscular Hemoglobin 29.4 pg (27.0-33.0); Mean Corpuscular Volume 88.5 fL (80.0-98.0); Mean Platelet Volume 8.9 fL (9.4-12.3); Monocytes Absolute Auto 0.7 X10*3/uL (0.1-1.2); Monocytes Percent Auto 11.1 % (2-11); Neutrophils Absolute Auto 3.7 x10*3/uL (2.0-8.3); Neutrophils Percent Auto 61.3 % (45-73); Platelet Count 261 X10*3/uL (160-400); Red Blood Count 3.23 X10*6/uL (4.20-5.50); Red Cell Distribution Width 13.6 % (11.0-16.0)
[2022-07-03 14:14] LABS: Alanine Aminotransferase 29 U/L (0-31); Albumin Level 4.3 g/dL (3.5-5.0); Alkaline Phosphatase 60 U/L (39-117); Anion Gap 16 (12-20); Aspartate Amino Transferase 25 U/L (5-31); Bilirubin Total 0.5 mg/dL (0.0-1.0); Blood Urea Nitrogen 13 mg/dL (9-16); Calcium 8.6 mg/dL (8.4-10.2); Carbon Dioxide 24 mmol/L (22-29); Chloride 106 mmol/L (96-108); Creatinine Clr Calc Pharmacy 56.7; Estimated Glomerular Filt Rate 38; Glucose Random 106 mg/dL (60-115); Potassium 4.3 mmol/L (3.3-5.1); Sodium 142 mmol/L (135-145)
[2022-07-03 14:42] LABS: Influenza A PCR NEGATIVE (Negative); Influenza B PCR NEGATIVE (Negative); Resp Syncy Virus RNA Qual PCR NEGATIVE (Negative); SARS COV2 PCR INHOUSE NEGATIVE (Negative)
[2022-07-03 14:47] VITALS: BP 142/97; PULSE 92; RESP 18; TEMP 36.6; O2SAT 96
[2022-07-04 01:28] VITALS: BP 151/77; PULSE 109; RESP 24; TEMP 37.8; O2SAT 94
[2022-07-04 01:43] LABS: Appearance Urine Clear; Color Urine Yellow; Glucose Urine UA Negative (Negative); Leukocyte Esterase Urine Trace (Negative); Nitrite Urine Negative (Negative); PH 5.5 (5.0-9.0); Specific Gravity - Urine 1.015 (1.005-1.025); UMIC TRIGGER UACC YES; Urine Blood Moderate (2+) (Negative); Urine Ketones Negative (Negative); Urine Protein 300 (3+) mg/dL (Neg-Trace)
[2022-07-04 01:48] LABS: Bacteria Urine None Seen (None Seen); WBC Urine 0-5 /HPF (0-5)
[2022-07-04 04:00] VITALS: PULSE 89; RESP 22; O2SAT 93
[2022-07-04 04:13] VITALS: BP 170/75; PULSE 105; RESP 18; TEMP 38.1; O2SAT 95
[2022-07-04] MEDS: guaiFEN/Codeine SF 200/20/10ML 10 ML LIQUID PO (05:03)
[2022-07-04] MEDS: Dicyclomine HCl 10 MG CAPSULE 20 MG PO (05:03)
== END 2022-07-04 06:29 | disposition home or self-care (01) ==
PROVIDERS: Physician Assistant; Emergency Provider Internal Medicine; PCP Internal Medicine
DX: R19.7 Diarrhea, unspecified (principal); J20.9 Acute bronchitis, unspecified; R50.9 Fever, unspecified; Z20.822 Contact with and (suspected) exposure to COVID-19; Z20.828 Contact with and (suspected) exposure to other viral communicable diseases; E11.22 Type 2 diabetes mellitus with diabetic chronic kidney disease; I12.9 Hypertensive chronic kidney disease with stage 1 through stage 4 chronic kidney disease, or unspecified chronic kidney disease; N18.30 Chronic kidney disease, stage 3 unspecified; E78.5 Hyperlipidemia, unspecified; E66.9 Obesity, unspecified; Z68.41 Body mass index [BMI] 40.0-44.9, adult; Z79.84 Long term (current) use of oral hypoglycemic drugs; Z79.899 Other long term (current) drug therapy; Z79.02 Long term (current) use of antithrombotics/antiplatelets
CPT/HCPCS: 0241U; 71046; 80053; 81001; 85025; 94640; 99284

== ENCOUNTER → 2022-07-26 12:33 | Outpatient (BNVA) | payer MEDICAID, SELFPAY | PROVIDERS: PCP Internal Medicine; Visit Provider Nurse Practitioner | DX: K21.9 Gastro-esophageal reflux disease without esophagitis (principal); K81.9 Cholecystitis, unspecified; R19.7 Diarrhea, unspecified; R10.9 Unspecified abdominal pain; R14.0 Abdominal distension (gaseous) | CPT/HCPCS: 99212 ==

== ENCOUNTER → 2022-07-31 09:28 | Outpatient (BNVA) | payer MEDICAID, SELFPAY | PROVIDERS: PCP Internal Medicine; Visit Provider Nurse Practitioner Family | DX: G47.33 Obstructive sleep apnea (adult) (pediatric) (principal); G47.9 Sleep disorder, unspecified; E66.01 Morbid (severe) obesity due to excess calories; Z68.41 Body mass index [BMI] 40.0-44.9, adult | CPT/HCPCS: 99212 ==

== ENCOUNTER 2022-08-15 10:54 | Emergency (ER) | payer MEDICAID, SELFPAY ==
--- NOTE | ~2022-08-15 | XR_ITS ---
EXAMINATION: XR FOOT, RIGHT CLINICAL INFORMATION: History of gout. COMPARISON: None available. TECHNIQUE: AP, lateral, and oblique views of the right foot. FINDINGS: There is mild loss of first MTP joint space with minimal periarticular spurring, subchondral cystic changes with mild soft tissue swelling suspicious for degenerative changes or gout. Minimal loss of PIP and DIP joint space is seen second through fifth digits. No visible acute fracture or dislocation seen. There is moderate size calcaneal heel and retrocalcaneal enthesophytes. Ankle mortise and the subtalar joints are normal. XR/XR foot RT min 3V IMPRESSION: 1. Moderate size calcaneal heel and retrocalcaneal enthesophytes. 2. Degenerative arthritic changes first MTP joint with mild soft tissue swelling, periarticular spurring and subchondral cystic changes suspicious for degenerative arthritis or gout.
[2022-08-15 11:04] VITALS: BP 125/86; PULSE 90; RESP 18; TEMP 36.6; O2SAT 96; BMI 40.2
--- NOTE | 2022-08-15 11:39 | ED.EXTPRO ---
HPI - Extremity Problem General Chief complaint: Extremity Injury, Lower Stated complaint: R leg pain Time Seen by Provider: 08/15/22 11:37 Source: patient Mode of arrival: ambulatory Limitations: no limitations History of Present Illness HPI Narrative: 57-year-old female with history of obesity, diabetes, HTN, HLD, neuropathy, CKD, BERNIE, anemia, gout, GERD who presents to the ER for evaluation of nontraumatic right foot pain for the last 1 day. She states she noticed some swelling to the top of her foot yesterday and had some burning type pain. It went away on its own. Today she reports the pain is worse and the swelling persisted. She denies any injury or trauma. She denies any redness, warmth or fevers, no rash. No toe pain. Does not feel like her usual gout pain that she gets in her toes. MD Complaint: extremity pain and extremity swelling Onset (ago): day(s) (1) Pain Consistency: constant Location: right and lower extremity Quality: burning Radiation: none Relieving factors: immobilization Exacerbating factors: palpation Associated symptoms: denies other symptoms Related Data Home Medications Medication Instructions Recorded Confirmed citalopram 40 mg tablet 40 mg PO DAILY 02/15/20 05/16/22 cholecalciferol (vitamin D3) 25 25 mcg PO DAILY 02/16/20 05/16/22 mcg (1,000 unit) capsule acetaminophen 500 mg tablet 1,000 mg PO TID PRN Pain (Scale 07/10/20 05/16/22 (Tylenol Extra Strength) Score 4-6) tramadol 50 mg tablet 50 mg PO QID PRN Pain (Scale Score 07/10/20 05/16/22 1-3) mirtazapine 15 mg tablet 15 mg PO BEDTIME PRN Sleep 11/28/20 05/16/22 tolterodine 4 mg capsule,extended 4 mg PO BEDTIME 11/28/20 05/16/22 release 24 hr (Detrol LA) albuterol sulfate 2.5 mg/3 mL 2.5 mg inhalation TID 10/07/21 05/16/22 (0.083 %) solution for nebulization albuterol sulfate 90 mcg/actuation 2 puff inhalation Q4-6H PRN 10/07/21 05/16/22 aerosol inhaler (ProAir HFA) Shortness Of Breath atorvastatin 20 mg tablet 20 mg PO BEDTIME 10/07/21 05/16/22 diclofenac sodium 1 % topical gel 2 g topical BID 10/07/21 05/16/22 fluticasone propionate 50 2 spray intranasal DAILY PRN 10/07/21 05/16/22 mcg/actuation nasal Allergy Symptoms spray,suspension lidocaine 5 % topical patch 1 patch topical DAILY 10/07/21 05/16/22 (Lidoderm) loratadine 10 mg tablet 10 mg PO DAILY PRN Allergy Symptoms 10/07/21 05/16/22 ruxolitinib 5 mg tablet (Jakafi) 5 mg PO BID 10/07/21 05/16/22 tamsulosin 0.4 mg capsule 0.4 mg PO DAILY@1700 10/07/21 05/16/22 Previous Rx's Medication Instructions Recorded amlodipine 5 mg tablet (Norvasc) 5 mg PO DAILY #30 tabs 10/08/21 metformin 500 mg tablet 500 mg PO BIDWM #60 tabs 01/18/22 sitagliptin phosphate 50 mg tablet 50 mg PO DAILY 90 days #90 tabs 01/18/22 (Januvia) loperamide 2 mg capsule (Imodium 2 mg PO Q6H PRN loose stool #14 01/26/22 A-D) caps colchicine 0.6 mg capsule 0.6 mg PO BID 5 days #10 caps 06/03/22 benzonatate 200 mg capsule 200 mg PO TID PRN cough #30 caps 07/04/22 cefuroxime axetil 500 mg tablet 500 mg PO BID 7 days #14 tabs 07/04/22 dicyclomine 20 mg tablet 40 mg PO QID abdominal pain #240 07/26/22 tabs famotidine 40 mg tablet (Pepcid) 40 mg PO BEDTIME 30 days #30 tabs 07/26/22 pantoprazole 40 mg tablet,delayed 40 mg PO DAILY@0630 #30 tabs 07/26/22 release (Protonix) melatonin 3 mg tablet 3 mg PO BEDTIME sleep 30 days #30 07/31/22 tabs ferrous sulfate 325 mg (65 mg 325 mg PO DAILY #30 tabs 08/08/22 iron) tablet tramadol 50 mg tablet 50 mg PO BID PRN severe pain 08/15/22 (scale score 7-10) #6 tabs Allergies Allergy/AdvReac Type Severity Reaction Status Date / Time aspirin [ASPIRIN] Allergy Intermediate SWELLING/ITCHING, Verified 08/15/22 11:04 rash Penicillins Allergy Intermediate ITCHING Verified 08/15/22 11:04 vancomycin [VANCOMYCIN] AdvReac Intermediate RED MAN Verified 08/15/22 11:04 SYNDROME PER MD Review of Systems Review of Systems: Yes all other systems are reviewed and are negative [facility] Past Medical History Medical History Anemia Asthma Biliary dyskinesia Chronic myeloproliferative disease CKD stage 3 due to type 2 diabetes mellitus COVID-19 vaccine series completed Diabetes type 2, controlled Diabetic nephropathy Diabetic neuropathy associated with type 2 diabetes mellitus Dyslipidemia GERD (gastroesophageal reflux disease) Hiatal hernia History of depression History of gastritis History of myelofibrosis Hypertension Migraines Morbid obesity due to excess calories Obesity due to excess calories BERNIE (obstructive sleep apnea) Osteoarthritis of knees, bilateral Osteoarthritis of wrist Upper abdominal pain Vitamin B12 deficiency Surgical History Bone marrow replaced by transplant H/O stem cell transplant History of partial hysterectomy History of resection of meningioma Hx of breast reduction, elective Hx of colonoscopy Hx of esophagogastroduodenoscopy Family History Family History Father Heart problem HTN (hypertension) Mother Diabetes Family/Other Diabetes HTN (hypertension) Heart problem Sister Cancer Social History Social History Household Members: None Housing: Apartment Are you a primary care management specialist to a significant other at home: No Do you presently have visiting nurse or other home services: Yes Alcohol intake: never Patient Tobacco Use Status: Never used Tobacco Advance Directives: No Advance Directives Information Provided: Yes Advance Directives Date on File: 03/24/16 service: No Current occupational status: disabled Physical Exam Vital Signs: Vital Signs: Last Vital Signs Temp 98 F 08/15/22 11:04 Pulse 90 08/15/22 11:04 Resp 18 08/15/22 11:04 BP 125/86 08/15/22 11:04 Pulse Ox 96 08/15/22 11:04 BMI result Body Mass Index 40.2 Appearance: Alert. Oriented X3. No acute distress. HEENT: normal inspection CVS: Normal heart rate and rhythm. Pulses normal. Respiratory: No respiratory distress. Skin: Skin warm and dry. Normal skin color. Normal skin turgor. No rashes. Extremities: right foot with mild-moderate generallized swelling of the top of the foot with associated diffuse tenderness of the metatarsals. No tenderness or swelling of the toes. Foot is warm and well perfused, normal pulses. no erythema or warmth, no rash. NV intact. Neuro: Oriented X 3. No motor deficit. No sensory deficit. Medications Administered Discontinued Medications Generic Name Dose Route Start Last Admin Trade Name Marcusq PRN Reason Stop Dose Admin Acetaminophen 975 mg 08/15/22 11:56 08/15/22 12:06 Acetaminophen 325 Mg Tablet PO 08/15/22 11:57 975 mg ONCE ONE Administration Oxycodone HCl 5 mg 08/15/22 11:56 08/15/22 12:07 Oxycodone Hcl Immed Release 5 Mg Tablet PO 08/15/22 11:57 5 mg ONCE ONE Administration Medical Decision Making Medical Decision Making MDM Narrative: 57-year-old Italian-speaking female with history of diabetes and gout presents to the ER for evaluation of nontraumatic right foot pain for the last 1 day. Examination reveals some soft tissue swelling on the top of the foot along with tenderness diffusely. You see her x-ray does not show any evidence of fractures. Her clinical exam is not consistent with gout. Her pain may be due to neuropathy verses contusion, perhaps she did sustain injury just cannot recall. She was placed in an Nayan wrap for compression and support. We discussed importance of elevation, compression, treatment of pain and swelling. She was given return precautions as well as instructed to monitor for signs of infection including worsening swelling, pain, redness or fevers. She is stable for discharge home. Differential Diagnosis Differential Diagnoses: The differential diagnosis associated with the presentation includes foot contusion, foot fracture, early cellulitis, gout, shingles, metataralgia, neuropathy, etoh abuse, vitamin deficiency Independent Interpretation I performed an independent interpretation of an: Plain X-Ray Interpretation: no acute fracutres, no crystals seen, agree w/ radiologist read Radiology Impression Discussion of test interpretation with radiology: I have reviewed the radiologist's reading. Radiologist Impression: CLINICAL INFORMATION: History of gout.? COMPARISON: None available.? TECHNIQUE: AP, lateral, and oblique views of the right foot. FINDINGS: There is mild loss of first MTP joint space with minimal periarticular spurring, subchondral cystic changes with mild soft tissue swelling suspicious for degenerative changes or gout. Minimal loss of PIP and DIP joint space is seen second through fifth digits. No visible acute fracture or dislocation seen. There is moderate size calcaneal heel and retrocalcaneal enthesophytes. Ankle mortise and the subtalar joints are normal.? XR/XR foot RT min 3V IMPRESSION: 1.? Moderate size calcaneal heel and retrocalcaneal enthesophytes. 2.? Degenerative arthritic changes first MTP joint with mild soft tissue swelling, periarticular spurring and subchondral cystic changes suspicious for degenerative arthritis or gout. ? External Record Review External record reviewed: Office record, Outpatient record, Prior outpatient labs and Prior outpatient radiology Prescription Management I considered prescription management with: Pain Medication and Antibiotic Chronic Conditions Patient?s care impacted by: Diabetes Critical Care Time Critical Care Time Critical Care Time: No Discharge Plan Discharge Clinical Impression: Contusion of foot, right Patient Disposition: Home, Self-Care Instructions: Metatarsalgia (DC) Additional Instructions: Your x-ray today did not show any broken bones. You have some arthritis. You also may have some nerve damange called neuropathy due to your diabetes. Wear the provided NAYAN wrap to help with pain and swelling. Elevate your foot when possible. Use ice on the foot several times per day to help with pain and swelling. Take the prescribed pain medication as needed for severe pain only. Monitor for signs of infection including redness or worsening swelling. Follow up with your doctor next week. Lim radiograf?a de hoy no mostr? rony?n hueso roto. Tienes algo de artritis. Tambi?n puede tener alg?n da?o en los nervios llamado neuropat?a debido a lim diabetes. Use la venda NAYAN provista para ayudar con el dolor y la hinchaz?n. Eleve el pie cuando sea posible. Use hielo en el pie varias veces al d?a para ayudar con el dolor y la hinchaz?n. [place] el analg?sico recetado seg?n sea necesario solo para el dolor intenso. Controle los signos de infecci?n, incluido el enrojecimiento o el empeoramiento de la hinchaz?n. Seguimiento con lim m?dico la pr?xima semana. Prescriptions: New tramadol 50 mg tablet 50 mg PO BID PRN (Reason: severe pain (scale score 7-10)) Qty: 6 0RF No Action metformin 500 mg tablet 500 mg PO BIDWM Qty: 60 4RF Januvia 50 mg tablet 50 mg PO DAILY 90 Days Qty: 90 0RF Rx Instructions: Dose reduced based on GFR ferrous sulfate 325 mg (65 mg iron) tablet 325 mg PO DAILY Qty: 30 6RF citalopram 40 mg Tablet 40 mg PO DAILY colchicine 0.6 mg capsule 0.6 mg PO BID 5 Days Qty: 10 0RF cefuroxime axetil 500 mg tablet 500 mg PO BID 7 Days Qty: 14 0RF benzonatate 200 mg capsule 200 mg PO TID PRN (Reason: cough) Qty: 30 0RF atorvastatin 20 mg Tablet 20 mg PO BEDTIME tamsulosin 0.4 mg Capsule 0.4 mg PO DAILY@1700 lidocaine [Lidoderm] 5 % Adhesive Patch,Medicated 1 patch TOPICAL DAILY Rx Instructions: leave on most painful area for up to 12 hrs fluticasone propionate 50 mcg/actuation [place],Suspension 2 spray INTRANASAL DAILY PRN (Reason: Allergy Symptoms) Rx Instructions: administer into each nostril loratadine 10 mg Tablet 10 mg PO DAILY PRN (Reason: Allergy Symptoms) diclofenac sodium 1 % Gel 2 g TOPICAL BID Rx Instructions: apply to single elbow, wrist or hand; for hand includes palm/fingers/back of hand albuterol sulfate 2.5 mg /3 mL (0.083 %) solution for nebulization 2.5 mg inhalation TID albuterol sulfate [ProAir HFA] 90 mcg/actuation Hfa Aerosol Inhaler 2 puff INHALATION Q4-6H PRN (Reason: Shortness Of Breath) Jakafi 5 mg Tablet 5 mg PO BID amlodipine [Norvasc] 5 mg tablet 5 mg PO DAILY Qty: 30 0RF loperamide [Imodium A-D] 2 mg capsule 2 mg PO Q6H PRN (Reason: loose stool) Qty: 14 0RF tramadol 50 mg tablet 50 mg PO QID PRN (Reason: Pain (Scale Score 1-3)) acetaminophen [Tylenol Extra Strength] 500 mg tablet 1,000 mg PO TID PRN (Reason: Pain (Scale Score 4-6)) cholecalciferol (vitamin D3) 25 mcg (1,000 unit) capsule 25 mcg PO DAILY tolterodine [Detrol LA] 4 mg capsule,extended release 24hr 4 mg PO BEDTIME mirtazapine 15 mg tablet 15 mg PO BEDTIME PRN (Reason: Sleep) famotidine [Pepcid] 40 mg tablet 40 mg PO BEDTIME 30 Days Qty: 30 6RF pantoprazole [Protonix] 40 mg tablet,delayed release (DR/EC) 40 mg PO DAILY@0630 Qty: 30 6RF dicyclomine 20 mg tablet 40 mg PO QID Qty: 240 6RF melatonin 3 mg tablet 3 mg PO BEDTIME 30 Days Qty: 30 1RF Referrals: Kalpana Baptiste MD [Primary Care Provider] - (right foot swelling and pain, x-ray negative, ?neuropathy) Print Language: Italian
[2022-08-15] MEDS: Acetaminophen 325 MG TABLET 975 MG PO (12:06)
[2022-08-15] MEDS: oxyCODONE HCl Immed Release 5 MG TABLET PO (12:07)
--- NOTE | 2022-08-15 12:07 | PC.NURSE ---
pt medicated per provider order for 02/11 rt foot pain/swelling
== END 2022-08-15 12:46 | disposition home or self-care (01) ==
PROVIDERS: Emergency Provider Emergency Medicine; PCP Internal Medicine
DX: S90.31XA Contusion of right foot, initial encounter (principal); X58.XXXA Exposure to other specified factors, initial encounter; Y93.9 Activity, unspecified; Y92.9 Unspecified place or not applicable; Y99.9 Unspecified external cause status
CPT/HCPCS: 73630; 99283

== ENCOUNTER 2022-08-17 00:44 | Emergency (ER) | payer MEDICAID, SELFPAY ==
[2022-08-17] VITALS (7 sets, daily range): BP systolic 124–169; BP diastolic 65–98; PULSE 74–111; RESP 16–20; TEMP 36.4–37.3; O2SAT 92–98; BMI 35.5
[2022-08-17 02:31] LABS: Hematocrit 31.2 % (37.0-47.0); Hemoglobin 10.5 g/dl (12.0-16.0); Mean Corpuscular HGB Conc 33.7 g/dl (31.0-35.0); Mean Corpuscular Hemoglobin 29.1 pg (27.0-33.0); Mean Corpuscular Volume 86.4 fL (80.0-98.0); Mean Platelet Volume 9.1 fL (9.4-12.3); NRBC Pct Auto 0.2 /100WBC (0.0-0.2); Platelet Count 260 X10*3/uL (160-400); Red Blood Count 3.61 X10*6/uL (4.20-5.50); Red Cell Distribution Width 13.8 % (11.0-16.0); White Blood Count 10.4 X10*3/uL (4.8-10.8)
[2022-08-17 02:45] LABS: Alanine Aminotransferase 22 U/L (0-31); Albumin Level 4.7 g/dL (3.5-5.0); Alkaline Phosphatase 73 U/L (39-117); Anion Gap 19 (12-20); Aspartate Amino Transferase 23 U/L (5-31); Bilirubin Total 0.5 mg/dL (0.0-1.0); Blood Urea Nitrogen 22 mg/dL (9-16); Calcium 9.1 mg/dL (8.4-10.2); Carbon Dioxide 21 mmol/L (22-29); Chloride 106 mmol/L (96-108); Creatinine Clr Calc Pharmacy 39.1; Estimated Glomerular Filt Rate 27; Glucose Random 127 mg/dL (60-115); Sodium 141 mmol/L (135-145); Total Protein 7.6 g/dL (6.5-8.0)
--- NOTE | 2022-08-17 03:25 | MHC.EDTECH ---
PT 1X assisted with meter changes records clerk into gown. Pt personal belonigns placed bedside. Pt right leg elevated with pillows. Pt given warm blanket and call maldonado placed in reach.
--- NOTE | 2022-08-17 07:17 | ED.GENADULT ---
HPI - General Adult General Chief complaint: Extremity Injury, Lower Stated complaint: Leg Pain Time Seen by Provider: 08/17/22 06:59 Source: patient History of Present Illness HPI narrative: This is 57 years old female that was seen yesterday for right foot pain she had imaging done were negative for fracture or discharged home, she returned today complaining of right foot and difficult the in to ambulate, a baseline issue ambulate with walker Onset (ago): day(s) (2) Location: lower extremity (rt foot) Radiation: non-radiation Severity: moderate Quality: burning Pain Consistency: constant Relieving factors: none and movement Exacerbating factors: none Related Data Home Medications Medication Instructions Recorded Confirmed citalopram 40 mg tablet 40 mg PO DAILY 02/15/20 05/16/22 cholecalciferol (vitamin D3) 25 25 mcg PO DAILY 02/16/20 05/16/22 mcg (1,000 unit) capsule acetaminophen 500 mg tablet 1,000 mg PO TID PRN Pain (Scale 07/10/20 05/16/22 (Tylenol Extra Strength) Score 4-6) tramadol 50 mg tablet 50 mg PO QID PRN Pain (Scale Score 07/10/20 05/16/22 1-3) mirtazapine 15 mg tablet 15 mg PO BEDTIME PRN Sleep 11/28/20 05/16/22 tolterodine 4 mg capsule,extended 4 mg PO BEDTIME 11/28/20 05/16/22 release 24 hr (Detrol LA) albuterol sulfate 2.5 mg/3 mL 2.5 mg inhalation TID 10/07/21 05/16/22 (0.083 %) solution for nebulization albuterol sulfate 90 mcg/actuation 2 puff inhalation Q4-6H PRN 10/07/21 05/16/22 aerosol inhaler (ProAir HFA) Shortness Of Breath atorvastatin 20 mg tablet 20 mg PO BEDTIME 10/07/21 05/16/22 diclofenac sodium 1 % topical gel 2 g topical BID 10/07/21 05/16/22 fluticasone propionate 50 2 spray intranasal DAILY PRN 10/07/21 05/16/22 mcg/actuation nasal Allergy Symptoms spray,suspension lidocaine 5 % topical patch 1 patch topical DAILY 10/07/21 05/16/22 (Lidoderm) loratadine 10 mg tablet 10 mg PO DAILY PRN Allergy Symptoms 10/07/21 05/16/22 ruxolitinib 5 mg tablet (Jakafi) 5 mg PO BID 10/07/21 05/16/22 tamsulosin 0.4 mg capsule 0.4 mg PO DAILY@1700 10/07/21 05/16/22 Previous Rx's Medication Instructions Recorded amlodipine 5 mg tablet (Norvasc) 5 mg PO DAILY #30 tabs 10/08/21 metformin 500 mg tablet 500 mg PO BIDWM #60 tabs 01/18/22 sitagliptin phosphate 50 mg tablet 50 mg PO DAILY 90 days #90 tabs 01/18/22 (Januvia) loperamide 2 mg capsule (Imodium 2 mg PO Q6H PRN loose stool #14 01/26/22 A-D) caps colchicine 0.6 mg capsule 0.6 mg PO BID 5 days #10 caps 06/03/22 benzonatate 200 mg capsule 200 mg PO TID PRN cough #30 caps 07/04/22 cefuroxime axetil 500 mg tablet 500 mg PO BID 7 days #14 tabs 07/04/22 dicyclomine 20 mg tablet 40 mg PO QID abdominal pain #240 07/26/22 tabs famotidine 40 mg tablet (Pepcid) 40 mg PO BEDTIME 30 days #30 tabs 07/26/22 pantoprazole 40 mg tablet,delayed 40 mg PO DAILY@0630 #30 tabs 07/26/22 release (Protonix) melatonin 3 mg tablet 3 mg PO BEDTIME sleep 30 days #30 07/31/22 tabs ferrous sulfate 325 mg (65 mg 325 mg PO DAILY #30 tabs 08/08/22 iron) tablet tramadol 50 mg tablet 50 mg PO BID PRN severe pain 08/15/22 (scale score 7-10) #6 tabs oxycodone 5 mg capsule 5 mg PO Q8H PRN pain #12 caps 08/17/22 prednisone 20 mg tablet 20 mg PO DAILY 5 days #5 tabs 08/17/22 Allergies Allergy/AdvReac Type Severity Reaction Status Date / Time aspirin [ASPIRIN] Allergy Intermediate SWELLING/ITCHING, Verified 08/15/22 11:04 rash Penicillins Allergy Intermediate ITCHING Verified 08/15/22 11:04 vancomycin [VANCOMYCIN] AdvReac Intermediate RED MAN Verified 08/15/22 11:04 SYNDROME PER MD Review of Systems Constitutional: Constitutional: Reports no additional constitutional complaints Cardiovascular: Cardiovascular: Reports no additional cardiovascular complaints Gastrointestinal: Gastrointestinal: Reports no additional gastrointestinal complaints Musculoskeletal: Musculoskeletal: Reports other (Right foot pain) REPLACED BY [facility] Past Medical History Medical History Anemia Asthma Biliary dyskinesia Chronic myeloproliferative disease CKD stage 3 due to type 2 diabetes mellitus COVID-19 vaccine series completed Diabetes type 2, controlled Diabetic nephropathy Diabetic neuropathy associated with type 2 diabetes mellitus Dyslipidemia GERD (gastroesophageal reflux disease) Hiatal hernia History of depression History of gastritis History of myelofibrosis Hypertension Migraines Morbid obesity due to excess calories Obesity due to excess calories BERNIE (obstructive sleep apnea) Osteoarthritis of knees, bilateral Osteoarthritis of wrist Upper abdominal pain Vitamin B12 deficiency Surgical History Bone marrow replaced by transplant H/O stem cell transplant History of partial hysterectomy History of resection of meningioma Hx of breast reduction, elective Hx of colonoscopy Hx of esophagogastroduodenoscopy Family History Family History Father Heart problem HTN (hypertension) Mother Diabetes Family/Other Diabetes HTN (hypertension) Heart problem Sister Cancer Social History Social History Household Members: None Housing: Apartment Are you a primary ocular care aide to a significant other at home: No Do you presently have visiting nurse or other home services: Yes Alcohol intake: never Patient Tobacco Use Status: Never used Tobacco Smoked in Last 30 Days: No Use of substances other than those prescribed or required for medical reasons: No Advance Directives: No Advance Directives Information Provided: Yes Advance Directives Date on File: 03/24/16 Patient : No service: No Current occupational status: disabled Physical Exam ED Vital Signs: Vital Signs - 24 hr 08/17/22 01:15 08/17/22 02:00 08/17/22 05:50 Temperature 97.5 F 99.1 F 98.1 F Pulse Rate 86 81 84 Respiratory Rate 20 16 16 Blood Pressure 133/80 142/72 H 124/68 Pulse Oximetry 96 96 92 Oxygen Delivery Method Room Air Room Air Room Air 08/17/22 07:19 08/17/22 10:00 08/17/22 11:59 Temperature Pulse Rate 74 78 78 Respiratory Rate 16 16 16 Blood Pressure 169/86 H 129/65 131/71 Pulse Oximetry 92 93 97 Oxygen Delivery Method Room Air Room Air Room Air BMI result Body Mass Index 35.5 Const Other: She looks well she is not toxic-appearing Nutritional Appearance: well nourished HENNE Head: Yes normal to inspection Face and sinus: Yes normal facial exam Neck Neck: Yes normal visual inspection Chest Chest palpation & inspection: normal inspection of the chest Resp Effort & Inspection: normal respiratory effort Auscultation: clear to auscultation bilaterally Cardio Jugular venous distension: no JVD Rate: regular rate Rhythm: regular rhythm GI Inspection: Yes normal to inspection Palpation (GI): Soft to palpation, not firm and nontender Skin General skin exam: no rashes or lesions noted Extrem Other: Examination the right foot showed good peripheral pulses there is tenderness in the dorsal aspect of the foot Course Reevaluation(s) Reevaluation #1: Pt was seen by PT she did well,also was seen by home health care case manager and appropriate referral for VNA was done Time: 11:29 Reevaluation #2: Patient is feeling better again seen by physical therapy she was able to ambulate;the etiology of right foot pain the is unclear gout comes to mind (she has elevated uric acid) she has elevated inflammatory marker , however we cannot give anti-inflammatory medication because the elevated the renal function tests (she has chronic renal failure) I will try few days of prednisone Time: 11:36 Medications Administered Discontinued Medications Generic Name Dose Route Start Last Admin Trade Name Freq PRN Reason Stop Dose Admin Oxycodone HCl 5 mg 08/17/22 07:16 08/17/22 07:51 Oxycodone Hcl Immed Release 5 Mg Tablet PO 08/17/22 07:17 5 mg ONCE ONE Administration Medical Decision Making Medical Decision Making [facility] Narrative: Patient presented with right foot pain inability to ambulate seen yesterday already x-ray was done yesterday no fracture will get PT to see the patient she states she is unable to ambulate Differential Diagnosis Differential Diagnoses: The differential diagnosis associated with the presentation includes Tendinitis/gout Admission/Observation Consideration of admission/observation: Escalation of care including admission/observation considered Lab Data [facility] Lab Attestation statement: I reviewed the patient's lab results. 08/17/22 02:22 08/17/22 02:22 Labs: Lab Results 08/17/22 08/17/22 08/17/22 Range/Units 02:22 02:22 02:22 WBC 10.4 (4.8-10.8) X10*3/uL RBC 3.61 L (4.20-5.50) X10*6/uL Hgb 10.5 L (12.0-16.0) g/dl Hct 31.2 L (37.0-47.0) % MCV 86.4 (80.0-98.0) fL MCH 29.1 (27.0-33.0) pg MCHC 33.7 (31.0-35.0) g/dl RDW 13.8 (11.0-16.0) % Plt Count 260 (160-400) X10*3/uL MPV 9.1 L (9.4-12.3) fL Absolute Nucleated RBC 0.020 H (0.0-0.012) X10*3/uL Nucleated RBC % (auto) 0.2 (0.0-0.2) /100WBC ESR 87 H (0-20) MM/HR Sodium 141 (135-145) mmol/L Potassium 5.0 (3.3-5.1) mmol/L Chloride 106 (96-108) mmol/L Carbon Dioxide 21 L (22-29) mmol/L Anion Gap 19 (12-20) BUN 22 H (9-16) mg/dL Creatinine 1.91 H (0.5-1.4) mg/dL Estim Creat Clear Calc 39.1 Estimated GFR 27 Random Glucose 127 H (60-115) mg/dL Uric Acid 11.1 H (2.4-5.7) mg/dL Calcium 9.1 (8.4-10.2) mg/dL Total Bilirubin 0.5 (0.0-1.0) mg/dL AST 23 (5-31) U/L ALT 22 (0-31) U/L Alkaline Phosphatase 73 (39-117) U/L C-Reactive Protein 3.36 H (< or = 0.50) mg/dL Total Protein 7.6 (6.5-8.0) g/dL Albumin 4.7 (3.5-5.0) g/dL Independent Interpretation I performed an independent interpretation of an: Plain X-Ray Interpretation: from Yesterday xray was reviwed Discharge Plan Discharge Clinical Impression: Acute foot pain Patient Disposition: Home, Self-Care Instructions: Foot Sprain (ED) Additional Instructions: Follow-up with your primary care physician tomorrow, return to the emergency room if you worse any concern. Prescriptions: New oxycodone 5 mg capsule 5 mg PO Q8H PRN (Reason: pain) Qty: 12 0RF Rx Instructions: Partial Fill upon patient request. prednisone 20 mg tablet 20 mg PO DAILY 5 Days Qty: 5 0RF No Action metformin 500 mg tablet 500 mg PO BIDWM Qty: 60 4RF Januvia 50 mg tablet 50 mg PO DAILY 90 Days Qty: 90 0RF Rx Instructions: Dose reduced based on GFR ferrous sulfate 325 mg (65 mg iron) tablet 325 mg PO DAILY Qty: 30 6RF citalopram 40 mg Tablet 40 mg PO DAILY colchicine 0.6 mg capsule 0.6 mg PO BID 5 Days Qty: 10 0RF cefuroxime axetil 500 mg tablet 500 mg PO BID 7 Days Qty: 14 0RF benzonatate 200 mg capsule 200 mg PO TID PRN (Reason: cough) Qty: 30 0RF atorvastatin 20 mg Tablet 20 mg PO BEDTIME tamsulosin 0.4 mg Capsule 0.4 mg PO DAILY@1700 lidocaine [Lidoderm] 5 % Adhesive Patch,Medicated 1 patch TOPICAL DAILY Rx Instructions: leave on most painful area for up to 12 hrs fluticasone propionate 50 mcg/actuation [place],Suspension 2 spray INTRANASAL DAILY PRN (Reason: Allergy Symptoms) Rx Instructions: administer into each nostril loratadine 10 mg Tablet 10 mg PO DAILY PRN (Reason: Allergy Symptoms) diclofenac sodium 1 % Gel 2 g TOPICAL BID Rx Instructions: apply to single elbow, wrist or hand; for hand includes palm/fingers/back of hand albuterol sulfate 2.5 mg /3 mL (0.083 %) solution for nebulization 2.5 mg inhalation TID albuterol sulfate [ProAir HFA] 90 mcg/actuation Hfa Aerosol Inhaler 2 puff INHALATION Q4-6H PRN (Reason: Shortness Of Breath) Jakafi 5 mg Tablet 5 mg PO BID amlodipine [Norvasc] 5 mg tablet 5 mg PO DAILY Qty: 30 0RF loperamide [Imodium A-D] 2 mg capsule 2 mg PO Q6H PRN (Reason: loose stool) Qty: 14 0RF tramadol 50 mg tablet 50 mg PO BID PRN (Reason: severe pain (scale score 7-10)) Qty: 6 0RF tramadol 50 mg tablet 50 mg PO QID PRN (Reason: Pain (Scale Score 1-3)) acetaminophen [Tylenol Extra Strength] 500 mg tablet 1,000 mg PO TID PRN (Reason: Pain (Scale Score 4-6)) cholecalciferol (vitamin D3) 25 mcg (1,000 unit) capsule 25 mcg PO DAILY tolterodine [Detrol LA] 4 mg capsule,extended release 24hr 4 mg PO BEDTIME mirtazapine 15 mg tablet 15 mg PO BEDTIME PRN (Reason: Sleep) famotidine [Pepcid] 40 mg tablet 40 mg PO BEDTIME 30 Days Qty: 30 6RF pantoprazole [Protonix] 40 mg tablet,delayed release (DR/EC) 40 mg PO DAILY@0630 Qty: 30 6RF dicyclomine 20 mg tablet 40 mg PO QID Qty: 240 6RF melatonin 3 mg tablet 3 mg PO BEDTIME 30 Days Qty: 30 1RF Referrals: Kalpana Baptiste MD [Primary Care Provider] - 1 day Interventions: ED Discharge Assessment Last Done: 08/17/22 13:01 Discharge Date/Time: 08/17/22 13:01
[2022-08-17 07:40] LABS: C Reactive Protein 3.36 mg/dL (< or = 0.50)
[2022-08-17] MEDS: oxyCODONE HCl Immed Release 5 MG TABLET PO (07:51)
--- NOTE | 2022-08-17 07:51 | PC.NURSE ---
describes RLE pain with swelling since yesterday. NKI. pt thinks is arthritis and neuropathy.
--- NOTE | 2022-08-17 07:53 | PC.NURSE ---
minimal non pitting edema to RLE. pt state she cannot bare weight. Awaits PT eval.
[2022-08-17 08:22] LABS: Erythrocyte Sedimentation Rate 87 MM/HR (0-20)
--- NOTE | 2022-08-17 10:57 | MHC.CM.ED ---
PATIENT LIVES ALONE. 'SHE HAS A WALKER, 2 THERMODYNAMICS ENGINEER, AND BIPAP FOR BERNIE. HCP ON FILE IS INVALID (NOT DATED) CASE MANAGEMENT CAN ASSIST WITH NEW DOCUMENT IF SHE CHOOSES NO VNA SHE DOES NOT WANT TO DC TO SHORT TERM REHAB SHE IS AGREEABLE TO [facility] REFERRAL, NOW PLACED. DAUGHTER RAJI WILL PROVIDE TRANSPORT HOME
--- NOTE | 2022-08-17 12:09 | MHC.CM.ED ---
NO PT. EVAL AVAILABLE OF THIS NOTE
--- NOTE | 2022-08-17 12:16 | MHC.CM.ED ---
PER CONVERSATION WITH PHYSICAL THERAPY, THEY ARE RECOMMENDING OUTPATIENT P.T. [facility] MADE AWARE OF PLAN.
[2022-08-17 12:20] LABS: Uric Acid 11.1 mg/dL (2.4-5.7)
== END 2022-08-17 13:01 | disposition home or self-care (01) ==
PROVIDERS: Emergency Provider Emergency Medicine; PCP Internal Medicine
DX: M79.671 Pain in right foot (principal); E11.22 Type 2 diabetes mellitus with diabetic chronic kidney disease; I12.9 Hypertensive chronic kidney disease with stage 1 through stage 4 chronic kidney disease, or unspecified chronic kidney disease; N18.30 Chronic kidney disease, stage 3 unspecified; E78.5 Hyperlipidemia, unspecified; E66.9 Obesity, unspecified; Z68.35 Body mass index [BMI] 35.0-35.9, adult; Z79.02 Long term (current) use of antithrombotics/antiplatelets; Z79.899 Other long term (current) drug therapy; Z79.84 Long term (current) use of oral hypoglycemic drugs
CPT/HCPCS: 36415; 80053; 84550; 85027; 85652; 86140; 97161; 99284; 99285

== ENCOUNTER 2022-08-21 12:37 | Outpatient (REF) | payer MEDICAID, SELFPAY ==
--- NOTE | ~2022-08-21 | MM_ITS ---
EXAMINATION: MM SCREENING DIGITAL BREAST TOMOSYNTHESIS, BILATERAL CLINICAL INFORMATION: Screening. Asymptomatic. Status post breast reduction surgery. The lifetime risk of breast cancer based on the Tyrer-Cuzick Model is 14.5%. COMPARISON: Mammography: April 17, 2021 and studies dating back to March 02, 2015 TECHNIQUE: Digital breast tomosynthesis is performed in both the craniocaudal and mediolateral oblique views along with computer-aided detection (CAD). Synthesized 2D images are generated from the tomosynthesis. FINDINGS: The breasts are almost entirely fatty (ACR BI-RADS breast composition Category a). There are no new significant masses, abnormal calcifications, or other abnormalities. Dystrophic calcifications are seen about the anterior aspect of the left breast. MM/MM tomosynthesis screening BI IMPRESSION: No significant changes from prior exam. ASSESSMENT: BI-RADS 1: Negative RECOMMENDATION: Routine annual mammography screening. This patient's information was entered into a reminder system with a target due date for their next mammogram.
== END 2022-08-21 12:38 | disposition home or self-care (01) ==
LOC: HO.MAMMO 12:37
PROVIDERS: Visit Provider Internal Medicine
DX: Z12.31 Encounter for screening mammogram for malignant neoplasm of breast (principal)
CPT/HCPCS: 77063; 77067

== ENCOUNTER → 2022-08-28 21:37 | Outpatient (REF) | payer MEDICAID, SELFPAY | LOC: HO.SL 21:37 | PROVIDERS: PCP Internal Medicine; Visit Provider Nurse Practitioner Family | DX: G47.33 Obstructive sleep apnea (adult) (pediatric) (principal); E66.01 Morbid (severe) obesity due to excess calories; I10 Essential (primary) hypertension | CPT/HCPCS: 95810 ==

== ENCOUNTER 2022-09-05 13:24 | Outpatient (REF) | payer MEDICAID, SELFPAY ==
[2022-09-05 13:40] LABS: MANUAL DIFF FLAG NO
[2022-09-05 15:07] LABS: Basophils Percent Auto 0.2 % (0-2); Eosinophils Absolute Auto 0.1 X10*3/uL (0.0-0.4); Hematocrit 29.8 % (37.0-47.0); Imm Gran Abs Auto 0.05 X10*3/uL (0.00-0.03); Imm Gran Pct Auto 0.8 % (0.0-0.4); Lymphocytes Absolute Auto 2.3 X10*3/uL (1.2-4.9); Lymphocytes Percent Auto 35.2 % (20-40); Mean Corpuscular HGB Conc 33.6 g/dl (31.0-35.0); Mean Corpuscular Volume 89.5 fL (80.0-98.0); Mean Platelet Volume 9.9 fL (9.4-12.3); Monocytes Absolute Auto 0.5 X10*3/uL (0.1-1.2); Monocytes Percent Auto 6.9 % (2-11); Neutrophils Absolute Auto 3.7 x10*3/uL (2.0-8.3); Neutrophils Percent Auto 54.9 % (45-73); Platelet Count 253 X10*3/uL (160-400); Red Blood Count 3.33 X10*6/uL (4.20-5.50); Red Cell Distribution Width 13.9 % (11.0-16.0); White Blood Count 6.6 X10*3/uL (4.8-10.8)
[2022-09-05 15:14] LABS: Appearance Urine Clear; Color Urine Yellow; Glucose Urine UA Negative (Negative); Leukocyte Esterase Urine Small (1+) (Negative); Nitrite Urine Negative (Negative); Specific Gravity - Urine 1.015 (1.005-1.025); UMIC TRIGGER UA YES; Urine Blood Moderate (2+) (Negative); Urine Ketones Negative (Negative); Urine Protein 300 (3+) mg/dL (Neg-Trace)
[2022-09-05 15:23] LABS: Bacteria Urine None Seen (None Seen); RBC Urine 0-2 /HPF (0-2); WBC Urine 0-5 /HPF (0-5)
[2022-09-05 16:05] LABS: Albumin Level 4.2 g/dL (3.5-5.0); Anion Gap 18 (12-20); Blood Urea Nitrogen 16 mg/dL (9-16); Carbon Dioxide 21 mmol/L (22-29); Chloride 106 mmol/L (96-108); Estimated Glomerular Filt Rate 36; Magnesium 1.6 mg/dL (1.6-2.6); Phosphorus 3.4 mg/dL (2.7-4.5); Potassium 4.2 mmol/L (3.3-5.1); Sodium 141 mmol/L (135-145)
[2022-09-05 16:05] LABS: Creatinine Urine 175.08 mg/dL; Protein/Creatinine Ratio, Ur 0.71 (<0.2); Total Protein Urine Random 124 mg/dL (<12)
[2022-09-05 16:22] LABS: Vitamin D 25-OH Total 30.5 ng/mL (>30)
[2022-09-09 15:24] LABS: Calcium (PTHI) 9.3 mg/dL (8.6-10.4); PTHI 72 pg/mL (16-77)
== END 2022-09-05 13:25 | disposition home or self-care (01) ==
LOC: HO.LAB 13:24
PROVIDERS: PCP Internal Medicine; Visit Provider Internal Medicine Nephrology
DX: E11.22 Type 2 diabetes mellitus with diabetic chronic kidney disease (principal); E11.21 Type 2 diabetes mellitus with diabetic nephropathy; I12.9 Hypertensive chronic kidney disease with stage 1 through stage 4 chronic kidney disease, or unspecified chronic kidney disease; N18.32 Chronic kidney disease, stage 3b; R80.1 Persistent proteinuria, unspecified
CPT/HCPCS: 36415; 80051; 81001; 82040; 82043; 82306; 82310; 82565; 83735; 83970; 84100; 84156; 84520; 85025; 87086

== ENCOUNTER 2022-11-21 14:21 | Outpatient (AMB) | payer MEDICAID, SELFPAY ==
--- NOTE | 2022-11-21 14:27 | A.OFFVIS_ITS ---
Intake Intake Visit Reasons: OV - Bilateral Knee OA Intake Note: Santa is a 57 year old female who presents today for a follow up of bilateral knee osteoarthritis, left>right. She was previously booked for a Left TKA on 09/11/21 but was cancelled due to abnormal labs. Allergies aspirin [ASPIRIN] Allergy (Intermediate, Verified 11/12/22 10:52) SWELLING/ITCHING, rash Penicillins Allergy (Intermediate, Verified 11/12/22 10:52) ITCHING vancomycin [VANCOMYCIN] Adverse Reaction (Intermediate, Verified 11/12/22 10:52) RED MAN SYNDROME PER MD HPI OV - Bilateral Knee OA HPI Details Santa is a 57 year old Diabetic woman with bilateral knee OA. She was previously scheduled for a left TKA on 09/11/21, but this was cancelled due to her high HgA1c. She presents today with complaints of bilateral knee pain, L>R. She says her Diabetes is better controlled and her most recent HgA1c is <8.0%. She is limited in her ambulation to <5 minutes and she uses a walker. She has a Hx of CKD [facility] Medical History Anemia Asthma Biliary dyskinesia Chronic myeloproliferative disease CKD stage 3 due to type 2 diabetes mellitus COVID-19 vaccine series completed Diabetes type 2, controlled Diabetic nephropathy Diabetic neuropathy associated with type 2 diabetes mellitus Dyslipidemia GERD (gastroesophageal reflux disease) Hiatal hernia History of depression History of gastritis History of myelofibrosis Hypertension Migraines Morbid obesity due to excess calories Obesity due to excess calories BERNIE (obstructive sleep apnea) Osteoarthritis of knees, bilateral Osteoarthritis of wrist Upper abdominal pain Vitamin B12 deficiency Surgical History Bone marrow replaced by transplant H/O stem cell transplant History of partial hysterectomy History of resection of meningioma Hx of breast reduction, elective Hx of colonoscopy Hx of esophagogastroduodenoscopy Family History Father Heart problem HTN (hypertension) Mother Diabetes Family/Other Diabetes HTN (hypertension) Heart problem Sister Cancer Social History Household Members: None Housing: Apartment Are you a primary home care associate to a significant other at home: No Do you presently have visiting nurse or other home services: Yes Alcohol intake: never Patient Tobacco Use Status: Never used Tobacco Advance Directives Date on File: 03/24/16 service: No Current occupational status: disabled Review of Systems Const All systems reviewed & are unremarkable except as noted in HPI and below Physical Exam Const General: no acute distress and alert Orientation/consciousness: patient oriented x3 Neuro General: patient oriented x3 Psych Appearance: grossly normal Affect: normal affect Attitude: cooperative Results Reviewed Results Reviewed: I personally reviewed relevant radiographs. RIGHT KNEE: Prominent tricompartmental osteoarthritis, most severe within the medial compartment. Small joint effusion. Findings are not significantly changed when compared to the most recent radiographs. ? LEFT KNEE: Prominent tricompartmental osteoarthritis, most severe within the medial compartment. Small joint effusion. Findings are not significantly changed when compared to the most recent radiographs. Assessment & Plan Assessment & Plan (1) Osteoarthritis of knees, bilateral: Code(s): M17.0 - Bilateral primary osteoarthritis of knee Plan: This is a 57 year old woman with severe bilateral knee OA, L>R. She was scheduled for a TKA in the past but her Diabetes was not well-controlled enough. She has pain with daily activity, and is limited to ambulating no longer than 5 minutes, while using an assistive device. I discussed her diagnosis and treatment options. I recommend a left TKA, however she has CKD and will need clearance from Nephrology and for her HgA1c to be <8.0%. I discussed the risks, benefits, and alternatives including, but not limited to, the risk of pain, infection, stiffness, need for further surgery as well as potential medical complications such as blood clots, pulmonary embolism and cardiac complications. I discussed the recovery timeline and process as well as the importance of PT. Santa is a good candidate for this surgery, and she wishes to proceed with this decision. She will speak with Klaudia to schedule this procedure once she has clearance. (2) CKD stage 3 due to type 2 diabetes mellitus: Code(s): E11.22 - Type 2 diabetes mellitus with diabetic chronic kidney disease; N18.30 - Chronic kidney disease, stage 3 unspecified (3) Diabetes type 2, controlled: Code(s): E11.9 - Type 2 diabetes mellitus without complications Qualifiers: Diabetes mellitus complication detail: with nephropathy Diabetes mellitus complication status: with kidney complications Diabetes mellitus intermediate insulin use: without intermediate use Qualified Code(s): E11.21 - Type 2 diabetes mellitus with diabetic nephropathy Plan Scribed for Tello Grigsby MD by Jeremy Mosquera, medical biller coder, on 11/21/22 at 2:55 PM, EST. Coding Level of Care Code Est Pt Level 4 (78539) Diagnoses Osteoarthritis of knees, bilateral M17.0 CKD stage 3 due to type 2 diabetes mellitus E11.22; N18.30 Diabetes type 2, controlled E11.21 Diabetes mellitus complication detail: with nephropathy Diabetes mellitus complication status: with kidney complications Diabetes mellitus intermediate insulin use: without intermediate use
== END 2022-11-21 16:36 | disposition home or self-care (01) ==
PROVIDERS: PCP Internal Medicine; Visit Provider Orthopaedic Surgery
DX: M17.0 Bilateral primary osteoarthritis of knee (principal)
CPT/HCPCS: 99214

== ENCOUNTER → 2022-11-21 14:21 | Outpatient (BNVA) | payer MEDICAID, SELFPAY | PROVIDERS: PCP Internal Medicine; Visit Provider Orthopaedic Surgery | DX: M17.0 Bilateral primary osteoarthritis of knee (principal); E11.22 Type 2 diabetes mellitus with diabetic chronic kidney disease; N18.30 Chronic kidney disease, stage 3 unspecified | CPT/HCPCS: 99212 ==

== ENCOUNTER 2022-12-28 19:07 | Emergency (ER) | payer MEDICAID, SELFPAY ==
--- NOTE | ~2022-12-28 | CT_ITS ---
EXAMINATION: CT ABDOMEN AND PELVIS WITHOUT CONTRAST CLINICAL INFORMATION: Abdominal pain and diarrhea COMPARISON: CT abdomen and pelvis 10/06/2021 TECHNIQUE: Multidetector volumetric imaging was performed from the superior aspect of the liver through the pubic symphysis. Sagittal and coronal reformatted images were obtained on the technologist's workstation. This CT examination was performed using dose optimization techniques as appropriate, variously including the following: *Automated exposure control *Adjustment of mA and/or kV according to patient size (this includes techniques or standardized protocols for targeted exams where dose is matched to indication/reason for exam; i.e. extremities or head) *Use of iterative reconstruction technique DLP: 889 mGy-cm FINDINGS: LUNG BASES: The visualized lung bases are unremarkable. LIVER, GALLBLADDER, AND BILIARY TREE: Diffuse hepatic steatosis with areas of focal fatty sparing. The liver is enlarged. The gallbladder is unremarkable with no evidence of radiopaque gallstones, gallbladder wall thickening, or obvious pericholecystic inflammatory changes. PANCREAS: Unremarkable. SPLEEN: Unremarkable. ADRENAL GLANDS: Unremarkable. KIDNEYS AND URETERS: The kidneys are normal in size and shape. No hydronephrosis. Nonobstructing stone in the mid left kidney measuring 4 mm. BLADDER: Unremarkable. GASTROINTESTINAL TRACT: Hyperdense material in the region of the lower abscess, likely an ingested pill. The large and small bowel are normal in caliber. The appendix is normal. ABDOMINAL WALL: No significant hernia is appreciated. LYMPH NODES: Normal. VASCULAR: Unremarkable. PELVIC VISCERA: Unremarkable. OSSEOUS STRUCTURES: Degenerative changes of the lumbar spine. CT/CT abdomen pelvis wo IV con IMPRESSION: 1. The appendix is normal. 2. Enlarged steatotic liver. 3. Nonobstructing 4 mm left renal stone. Fleischner guidelines were followed.
[2022-12-28 19:33] VITALS: BP 170/89; PULSE 88; RESP 18; TEMP 36.6; O2SAT 97; BMI 40.2
--- NOTE | 2022-12-28 19:36 | ED_ITS ---
HPI - Abdominal Pain General Chief Complaint: Abdominal Pain Stated Complaint: Abdominal pain/Diarrhea Time Seen by Provider: 12/28/22 20:56 Source: patient Limitations: no limitations History of Present Illness HPI narrative: 57-year-old female presents with abdominal pain. The pain is the upper abdomen. She described as burning. The pain is constant. Started 3 weeks ago. Is worse with eating. It is not associated with nausea vomiting but does have association with nonbloody diarrhea. The pain does not radiate. She has a hist ory of a hysterectomy but no other abdominal surgeries. She had no fevers or chills. No urinary complaints. Related Data Home Medications Medication Instructions Recorded Confirmed citalopram 40 mg tablet 40 mg PO DAILY 02/15/20 11/12/22 cholecalciferol (vitamin D3) 25 25 mcg PO DAILY 02/16/20 11/12/22 mcg (1,000 unit) capsule acetaminophen 500 mg tablet 1,000 mg PO TID PRN Pain (Scale 07/10/20 11/12/22 (Tylenol Extra Strength) Score 4-6) tramadol 50 mg tablet 50 mg PO QID PRN Pain (Scale Score 07/10/20 11/12/22 1-3) mirtazapine 15 mg tablet 15 mg PO BEDTIME PRN Sleep 11/28/20 11/12/22 tolterodine 4 mg capsule,extended 4 mg PO BEDTIME 11/28/20 11/12/22 release 24 hr (Detrol LA) albuterol sulfate 2.5 mg/3 mL 2.5 mg inhalation TID 10/07/21 11/12/22 (0.083 %) solution for nebulization albuterol sulfate 90 mcg/actuation 2 puff inhalation Q4-6H PRN 10/07/21 11/12/22 aerosol inhaler (ProAir HFA) Shortness Of Breath atorvastatin 20 mg tablet 20 mg PO BEDTIME 10/07/21 11/12/22 diclofenac sodium 1 % topical gel 2 g topical BID 10/07/21 11/12/22 fluticasone propionate 50 2 spray intranasal DAILY PRN 10/07/21 11/12/22 mcg/actuation nasal Allergy Symptoms spray,suspension lidocaine 5 % topical patch 1 patch topical DAILY 10/07/21 11/12/22 (Lidoderm) loratadine 10 mg tablet 10 mg PO DAILY PRN Allergy Symptoms 10/07/21 11/12/22 ruxolitinib 5 mg tablet (Jakafi) 5 mg PO BID 10/07/21 11/12/22 tamsulosin 0.4 mg capsule 0.4 mg PO DAILY@1700 10/07/21 11/12/22 Previous Rx's Medication Instructions Recorded amlodipine 5 mg tablet (Norvasc) 5 mg PO DAILY #30 tabs 10/08/21 metformin 500 mg tablet 500 mg PO BIDWM #60 tabs 01/18/22 sitagliptin phosphate 50 mg tablet 50 mg PO DAILY 90 days #90 tabs 01/18/22 (Januvia) loperamide 2 mg capsule (Imodium 2 mg PO Q6H PRN loose stool #14 01/26/22 A-D) caps colchicine (gout) 0.6 mg capsule 0.6 mg PO BID 5 days #10 caps 06/03/22 cefuroxime axetil 500 mg tablet 500 mg PO BID 7 days #14 tabs 07/04/22 dicyclomine 20 mg tablet 40 mg PO QID abdominal pain #240 07/26/22 tabs famotidine 40 mg tablet (Pepcid) 40 mg PO BEDTIME 30 days #30 tabs 07/26/22 pantoprazole 40 mg tablet,delayed 40 mg PO DAILY@0630 #30 tabs 07/26/22 release (Protonix) ferrous sulfate 325 mg (65 mg 325 mg PO DAILY #30 tabs 08/08/22 iron) tablet prednisone 20 mg tablet 20 mg PO DAILY 5 days #5 tabs 08/17/22 dicyclomine 20 mg tablet 20 mg PO QID PRN abdominal pain 12/29/22 #14 tabs ondansetron 4 mg disintegrating 4 mg PO Q8H PRN nausea and 12/29/22 tablet vomiting #10 tabs Allergies Allergy/AdvReac Type Severity Reaction Status Date / Time aspirin [ASPIRIN] Allergy Intermediate SWELLING/ITCHING, Verified 12/28/22 19:38 rash Penicillins Allergy Intermediate ITCHING Verified 12/28/22 19:38 vancomycin [VANCOMYCIN] AdvReac Intermediate RED MAN Verified 12/28/22 19:38 SYNDROME PER MD Review of Systems Review of Systems CONSTITUTIONAL: Denies weight loss, fever and chills. HEENT: Denies changes in vision and hearing. RESPIRATORY: Denies SOB and cough. CV: Denies palpitations no CP. GI: + abdominal pain, -nausea, vomiting + diarrhea. : Denies dysuria and urinary frequency. MSK: Denies myalgia and joint pain. SKIN: Denies rash and pruritus. NEUROLOGICAL: Denies headache and syncope. PSYCHIATRIC: Denies recent changes in mood. Denies anxiety and depression. All other ROS are negative unless in HPI PMFSH Past Medical History Medical History Anemia Asthma Biliary dyskinesia Chronic myeloproliferative disease CKD stage 3 due to type 2 diabetes mellitus COVID-19 vaccine series completed Diabetes type 2, controlled Diabetic nephropathy Diabetic neuropathy associated with type 2 diabetes mellitus Dyslipidemia GERD (gastroesophageal reflux disease) Hiatal hernia History of depression History of gastritis History of myelofibrosis Hypertension Migraines Morbid obesity due to excess calories Obesity due to excess calories BERNIE (obstructive sleep apnea) Osteoarthritis of knees, bilateral Osteoarthritis of wrist Upper abdominal pain Vitamin B12 deficiency Surgical History Bone marrow replaced by transplant H/O stem cell transplant History of partial hysterectomy History of resection of meningioma Hx of breast reduction, elective Hx of colonoscopy Hx of esophagogastroduodenoscopy Family History Family History Father Heart problem HTN (hypertension) Mother Diabetes Family/Other Diabetes HTN (hypertension) Heart problem Sister Cancer Social History Social History Household Members: None Housing: Apartment Are you a primary patient care director to a significant other at home: No Do you presently have visiting nurse or other home services: Yes Alcohol intake: never Patient Tobacco Use Status: Never used Tobacco Smoked in Last 30 Days: No Use of substances other than those prescribed or required for medical reasons: No Advance Directives: No Advance Directives Information Provided: Yes Advance Directives Date on File: 03/24/16 service: No Current occupational status: disabled Physical Exam ED Vital Signs: Vital Signs - 24 hr 12/28/22 19:33 12/28/22 21:48 12/28/22 22:17 Temperature 97.8 F 98.6 F Pulse Rate 88 80 Respiratory Rate 18 16 18 Blood Pressure 170/89 H 139/77 Pulse Oximetry 97 97 Oxygen Delivery Method Room Air Room Air 12/28/22 23:51 Temperature 98.6 F Pulse Rate 77 Respiratory Rate 16 Blood Pressure 122/74 Pulse Oximetry 97 Oxygen Delivery Method Room Air BMI result Body Mass Index 40.2 GEN: Well developed, no acute distress, alert, oriented HEENT: Normocephalic, atraumatic, normal external ears, nose appears normal, no oropharyngeal edema or exudates Eyes: Normal to appearance Neck: Supple, no lymphadenopathy Respiratory: Talks in complete sentences, no respiratory distress, clear to auscultation bilaterally Cardiovascular: Regular rate and rhythm, no murmurs rubs or gallops Abdomen: Soft, generalized tenderness, nondistended, no guarding, no rebound Back: No CVA tenderness Extremities: No clubbing cyanosis or edema Neurologic: No focal neurologic deficits, cranial nerves 2-12 intact, strength is 5/5 bilaterally Skin: No rash Course Course Course Narrative: This is an RME: Additional HPI, ROS, PE not included below will be deferred to primary provider. Patient is a 57-year-old female who presents emergency department for evaluation of diffuse abdominal pain x3 weeks. Initial first week had associated nausea and vomiting. For 3 weeks she has had diarrhea reportedly with any time she eats or drinks. Denies hematochezia or melena. She is able to tolerate liquids but states unable to tolerate solids. Reports a history of similar symptoms in the past. Plan: Labs, urinalysis, CT AP Reevaluation(s) Reevaluation #1: Patient is feeling much better at this time. Her lactic acid improved significantly. Will discharge to follow-up with her primary care provider. Time: 02:04 Medical Decision Making Medical Decision Making MDM Narrative: 57-year-old female presents with abdominal pain. Is not associated with nausea vomiting. Social with diarrhea. Abdomen was soft, generally tender without rebound or guarding. Differential diagnosis includes gastroenteritis, gastritis, GERD, pancreatitis, biliary colic, colitis, epiploic appendagitis, mesenteric adenitis. Will obtain a CT scan the abdomen pelvis, routine laboratory analysis,. Will provide patient with analgesia, acid reducing medications and re-evaluate the patient following workup. Differential Diagnosis Differential Diagnoses: The differential diagnosis associated with the presentation includes (See above) Admission/Observation Consideration of admission/observation: Escalation of care including admission/observation considered Lab Data MDM Lab Attestation statement: I reviewed the patient's lab results. 12/28/22 19:41 12/28/22 19:41 Labs: Lab Results 12/28/22 12/28/22 12/28/22 Range/Units 19:41 19:41 19:41 WBC 7.8 (4.8-10.8) X10*3/uL RBC 3.49 L (4.20-5.50) X10*6/uL Hgb 10.1 L (12.0-16.0) g/dl Hct 30.3 L (37.0-47.0) % MCV 86.8 (80.0-98.0) fL MCH 28.9 (27.0-33.0) pg MCHC 33.3 (31.0-35.0) g/dl RDW 13.5 (11.0-16.0) % Plt Count 255 (160-400) X10*3/uL MPV 9.1 L (9.4-12.3) fL Immature Gran % (Auto) 0.6 H (0.0-0.4) % Neut % (Auto) 60.6 (45-73) % Lymph % (Auto) 30.2 (20-40) % [place] % (Auto) 7.5 (2-11) % Eos % (Auto) 1.0 (0-4) % Baso % (Auto) 0.1 (0-2) % Lymph # (Auto) 2.4 (1.2-4.9) X10*3/uL [place] # (Auto) 0.6 (0.1-1.2) X10*3/uL Eos # (Auto) 0.1 (0.0-0.4) X10*3/uL Baso # (Auto) 0.0 (0.0-0.2) X10*3/uL Abs Immat Gran (auto) 0.05 H (0.00-0.03) X10*3/uL Absolute Neuts (auto) 4.7 (2.0-8.3) x10*3/uL Absolute Nucleated RBC 0.000 (0.0-0.012) X10*3/uL Nucleated RBC % (auto) 0.0 (0.0-0.2) /100WBC Sodium 142 (135-145) mmol/L Potassium 4.1 (3.3-5.1) mmol/L Chloride 109 H (96-108) mmol/L Carbon Dioxide 22 (22-29) mmol/L Anion Gap 15 (12-20) BUN 15 (9-16) mg/dL Creatinine 1.53 H (0.5-1.4) mg/dL Estim Creat Clear Calc 52.2 Estimated GFR 35 Random Glucose 103 (60-115) mg/dL Lactic Acid 2.4 H* (0.5-2.0) mmol/L Lactic Acid F/U @ 2Hr (0.5-2.0) mmol/L Calcium 9.1 D (8.4-10.2) mg/dL Total Bilirubin 0.4 (0.0-1.0) mg/dL AST 19 (5-31) U/L ALT 19 (0-31) U/L Alkaline Phosphatase 69 (39-117) U/L Total Protein 7.8 (6.5-8.0) g/dL Albumin 4.4 (3.5-5.0) g/dL Lipase 29 (8-78) U/L Urine Color Urine Appearance Urine pH (5.0-9.0) Ur Specific [place] (1.005-1.025) Urine Protein (Neg-Trace) mg/dL Urine Glucose (UA) (Negative) mg/dL Urine Ketones (Negative) mg/dL Urine Blood (Negative) Urine Nitrite (Negative) Ur Leukocyte Esterase (Negative) Urine RBC (0-2) /HPF Urine WBC (0-5) /HPF Ur Squamous Epith Cells (0-2) /HPF Urine Bacteria (None Seen) Hyaline Casts (0-2) /LPF 12/28/22 12/28/22 12/29/22 Range/Units 19:58 22:39 00:38 WBC (4.8-10.8) X10*3/uL RBC (4.20-5.50) X10*6/uL Hgb (12.0-16.0) g/dl Hct (37.0-47.0) % MCV (80.0-98.0) fL MCH (27.0-33.0) pg MCHC (31.0-35.0) g/dl RDW (11.0-16.0) % Plt Count (160-400) X10*3/uL MPV (9.4-12.3) fL Immature Gran % (Auto) (0.0-0.4) % Neut % (Auto) (45-73) % Lymph % (Auto) (20-40) % [place] % (Auto) (2-11) % Eos % (Auto) (0-4) % Baso % (Auto) (0-2) % Lymph # (Auto) (1.2-4.9) X10*3/uL [place] # (Auto) (0.1-1.2) X10*3/uL Eos # (Auto) (0.0-0.4) X10*3/uL Baso # (Auto) (0.0-0.2) X10*3/uL Abs Immat Gran (auto) (0.00-0.03) X10*3/uL Absolute Neuts (auto) (2.0-8.3) x10*3/uL Absolute Nucleated RBC (0.0-0.012) X10*3/uL Nucleated RBC % (auto) (0.0-0.2) /100WBC Sodium (135-145) mmol/L Potassium (3.3-5.1) mmol/L Chloride (96-108) mmol/L Carbon Dioxide (22-29) mmol/L Anion Gap (12-20) BUN (9-16) mg/dL Creatinine (0.5-1.4) mg/dL Estim Creat Clear Calc Estimated GFR Random Glucose (60-115) mg/dL Lactic Acid 1.4 (0.5-2.0) mmol/L Lactic Acid F/U @ 2Hr 2.5 H* (0.5-2.0) mmol/L Calcium (8.4-10.2) mg/dL Total Bilirubin (0.0-1.0) mg/dL AST (5-31) U/L ALT (0-31) U/L Alkaline Phosphatase (39-117) U/L Total Protein (6.5-8.0) g/dL Albumin (3.5-5.0) g/dL Lipase (8-78) U/L Urine Color Yellow Urine Appearance Clear Urine pH 5.5 (5.0-9.0) Ur Specific [place] 1.015 (1.005-1.025) Urine Protein 300 (3+) H (Neg-Trace) mg/dL Urine Glucose (UA) Negative (Negative) mg/dL Urine Ketones Negative (Negative) mg/dL Urine Blood Moderate (2+) H (Negative) Urine Nitrite Negative (Negative) Ur Leukocyte Esterase Negative (Negative) Urine RBC 3-5 H (0-2) /HPF Urine WBC 0-5 (0-5) /HPF Ur Squamous Epith Cells 3-5 (0-2) /HPF Urine Bacteria None Seen (None Seen) Hyaline Casts 6-10 (0-2) /LPF Independent Interpretation I performed an independent interpretation of an: CT Scan (Abd: NAD) Radiology Impression Discussion of test interpretation with radiology: I have reviewed the radiologist's reading. Radiologist Impression: CT/CT abdomen pelvis wo IV con IMPRESSION: 1.? The appendix is normal.? 2.? Enlarged steatotic liver. 3.? Nonobstructing 4 mm left renal stone. ? Fleischner guidelines were followed. Dictated By: Santiago Salazar MD Signed By: <Electronically signed by Santiago Salazar MD in [place]> [id number]/28/[id number] Prescription Management I considered prescription management with: Pain Medication Chronic Conditions Patient?s care impacted by: Diabetes and Hypertension Medications Administered Discontinued Medications Generic Name Dose Route Start Last Admin Trade Name Freq PRN Reason Stop Dose Admin Famotidine 20 mg 12/28/22 21:34 12/28/22 22:17 Famotidine 20 Mg Tablet PO 12/28/22 21:35 20 mg ONCE ONE Administration Hydromorphone HCl 1 mg 12/28/22 21:34 12/28/22 22:17 Hydromorphone Hcl 1 Mg/Ml Syringe IM 12/28/22 21:35 1 mg ONCE ONE Administration Protocol Sodium Chloride 1,000 mls @ 999 mls/hr 12/28/22 23:15 12/29/22 00:58 Ns IV 12/29/22 00:15 Infused .Q1H1M [facility] Infusion Discharge Plan Discharge Clinical Impression: Abdominal pain, Diarrhea Patient Disposition: Home, Self-Care Instructions: Acute Diarrhea (ED), Abdominal Pain (ED) Prescriptions: New ondansetron 4 mg tablet,disintegrating 4 mg PO Q8H PRN (Reason: nausea and vomiting) Qty: 10 0RF dicyclomine 20 mg tablet 20 mg PO QID PRN (Reason: abdominal pain) Qty: 14 0RF No Action metformin 500 mg tablet 500 mg PO BIDWM Qty: 60 4RF Januvia 50 mg tablet 50 mg PO DAILY 90 Days Qty: 90 0RF Rx Instructions: Dose reduced based on GFR ferrous sulfate 325 mg (65 mg iron) tablet 325 mg PO DAILY Qty: 30 6RF citalopram 40 mg Tablet 40 mg PO DAILY colchicine (gout) 0.6 mg capsule 0.6 mg PO BID 5 Days Qty: 10 0RF cefuroxime axetil 500 mg tablet 500 mg PO BID 7 Days Qty: 14 0RF atorvastatin 20 mg Tablet 20 mg PO BEDTIME tamsulosin 0.4 mg Capsule 0.4 mg PO DAILY@1700 lidocaine [Lidoderm] 5 % Adhesive Patch,Medicated 1 patch TOPICAL DAILY Rx Instructions: leave on most painful area for up to 12 hrs fluticasone propionate 50 mcg/actuation [place],Suspension 2 spray INTRANASAL DAILY PRN (Reason: Allergy Symptoms) Rx Instructions: administer into each nostril loratadine 10 mg Tablet 10 mg PO DAILY PRN (Reason: Allergy Symptoms) diclofenac sodium 1 % Gel 2 g TOPICAL BID Rx Instructions: apply to single elbow, wrist or hand; for hand includes palm/fingers/back of hand albuterol sulfate 2.5 mg /3 mL (0.083 %) solution for nebulization 2.5 mg inhalation TID albuterol sulfate [ProAir HFA] 90 mcg/actuation Hfa Aerosol Inhaler 2 puff INHALATION Q4-6H PRN (Reason: Shortness Of Breath) Jakafi 5 mg Tablet 5 mg PO BID amlodipine [Norvasc] 5 mg tablet 5 mg PO DAILY Qty: 30 0RF loperamide [Imodium A-D] 2 mg capsule 2 mg PO Q6H PRN (Reason: loose stool) Qty: 14 0RF prednisone 20 mg tablet 20 mg PO DAILY 5 Days Qty: 5 0RF tramadol 50 mg tablet 50 mg PO QID PRN (Reason: Pain (Scale Score 1-3)) acetaminophen [Tylenol Extra Strength] 500 mg tablet 1,000 mg PO TID PRN (Reason: Pain (Scale Score 4-6)) cholecalciferol (vitamin D3) 25 mcg (1,000 unit) capsule 25 mcg PO DAILY tolterodine [Detrol LA] 4 mg capsule,extended release 24hr 4 mg PO BEDTIME mirtazapine 15 mg tablet 15 mg PO BEDTIME PRN (Reason: Sleep) famotidine [Pepcid] 40 mg tablet 40 mg PO BEDTIME 30 Days Qty: 30 6RF pantoprazole [Protonix] 40 mg tablet,delayed release (DR/EC) 40 mg PO DAILY@0630 Qty: 30 6RF dicyclomine 20 mg tablet 40 mg PO QID Qty: 240 6RF Referrals: Kalpana Baptiste MD [Primary Care Provider] - 3 days
[2022-12-28 19:51] LABS: MANUAL DIFF FLAG NO
[2022-12-28 19:56] LABS: Basophils Percent Auto 0.1 % (0-2); Eosinophils Absolute Auto 0.1 X10*3/uL (0.0-0.4); Hematocrit 30.3 % (37.0-47.0); Hemoglobin 10.1 g/dl (12.0-16.0); Imm Gran Abs Auto 0.05 X10*3/uL (0.00-0.03); Imm Gran Pct Auto 0.6 % (0.0-0.4); Lymphocytes Absolute Auto 2.4 X10*3/uL (1.2-4.9); Lymphocytes Percent Auto 30.2 % (20-40); Mean Corpuscular HGB Conc 33.3 g/dl (31.0-35.0); Mean Corpuscular Hemoglobin 28.9 pg (27.0-33.0); Mean Corpuscular Volume 86.8 fL (80.0-98.0); Mean Platelet Volume 9.1 fL (9.4-12.3); Monocytes Absolute Auto 0.6 X10*3/uL (0.1-1.2); Monocytes Percent Auto 7.5 % (2-11); Neutrophils Absolute Auto 4.7 x10*3/uL (2.0-8.3); Neutrophils Percent Auto 60.6 % (45-73); Platelet Count 255 X10*3/uL (160-400); Red Blood Count 3.49 X10*6/uL (4.20-5.50); Red Cell Distribution Width 13.5 % (11.0-16.0); White Blood Count 7.8 X10*3/uL (4.8-10.8)
[2022-12-28 20:06] LABS: Appearance Urine Clear; Color Urine Yellow; Glucose Urine UA Negative (Negative); Leukocyte Esterase Urine Negative (Negative); Nitrite Urine Negative (Negative); PH 5.5 (5.0-9.0); Specific Gravity - Urine 1.015 (1.005-1.025); UMIC TRIGGER UACC YES; Urine Blood Moderate (2+) (Negative); Urine Ketones Negative (Negative); Urine Protein 300 (3+) mg/dL (Neg-Trace)
[2022-12-28 20:10] LABS: Alanine Aminotransferase 19 U/L (0-31); Albumin Level 4.4 g/dL (3.5-5.0); Alkaline Phosphatase 69 U/L (39-117); Anion Gap 15 (12-20); Aspartate Amino Transferase 19 U/L (5-31); Bilirubin Total 0.4 mg/dL (0.0-1.0); Blood Urea Nitrogen 15 mg/dL (9-16); Calcium 9.1 mg/dL (8.4-10.2); Carbon Dioxide 22 mmol/L (22-29); Chloride 109 mmol/L (96-108); Creatinine Clr Calc Pharmacy 52.2; Estimated Glomerular Filt Rate 35; Glucose Random 103 mg/dL (60-115); Lactic Acid 2.4 mmol/L (0.5-2.0); Lipase 29 U/L (8-78); Potassium 4.1 mmol/L (3.3-5.1); Sodium 142 mmol/L (135-145); Total Protein 7.8 g/dL (6.5-8.0)
[2022-12-28 21:14] LABS: Bacteria Urine None Seen (None Seen); WBC Urine 0-5 /HPF (0-5)
[2022-12-28 21:48] VITALS: BP 139/77; PULSE 80; RESP 16; TEMP 37; O2SAT 97
[2022-12-28 21:50] LABS: Reflex Lactate? Lactic Acid Added
[2022-12-28 22:17] VITALS: RESP 18
[2022-12-28] MEDS: Famotidine 20 MG TABLET PO (22:17)
[2022-12-28] MEDS: HYDROmorphone HCl 1 MG/ML SYRINGE IM (22:17)
--- NOTE | 2022-12-28 22:21 | PC.NURSE ---
Addendum entered by Brian White 12/28/22 22:24: correction - repeat lactic. Original Note: pt a&ox4, vss, reporting 10/10 abd pain w associated diarrhea x 3 weeks, medicated per MAR. repeat trop scheduled - tech aware.
[2022-12-28 23:04] LABS: ~Lactic Acid-LAB USE ONLY 2.5 mmol/L (0.5-2.0)
[2022-12-28] MEDS: 0.9 % Sodium Chloride 1,000 ML 999 ML IV (23:32)
[2022-12-28 23:51] VITALS: BP 122/74; PULSE 77; RESP 16; TEMP 37; O2SAT 97
[2022-12-29 00:43] LABS: Reflex Lactate? 2 Y
[2022-12-29 00:53] LABS: Lactic Acid 1.4 mmol/L (0.5-2.0)
[2022-12-29] MEDS: oxyCODONE HCl Immed Release 5 MG TABLET PO (02:09)
[2022-12-29 02:25] VITALS: BP 150/98; PULSE 94; RESP 19; TEMP 36.6; O2SAT 97
== END 2022-12-29 02:26 | disposition home or self-care (01) ==
PROVIDERS: Nurse Practitioner Family; Emergency Provider Emergency Medicine; PCP Internal Medicine
DX: R19.7 Diarrhea, unspecified (principal); R10.10 Upper abdominal pain, unspecified; E11.22 Type 2 diabetes mellitus with diabetic chronic kidney disease; I12.9 Hypertensive chronic kidney disease with stage 1 through stage 4 chronic kidney disease, or unspecified chronic kidney disease; N18.30 Chronic kidney disease, stage 3 unspecified; E78.5 Hyperlipidemia, unspecified; E66.9 Obesity, unspecified; Z68.41 Body mass index [BMI] 40.0-44.9, adult; Z79.84 Long term (current) use of oral hypoglycemic drugs; Z79.899 Other long term (current) drug therapy
CPT/HCPCS: 36415; 74176; 80053; 81001; 83605; 83690; 85025; 96360; 96372; 99284; J1170

== ENCOUNTER 2023-01-17 13:42 | Outpatient (AMB) | payer MEDICAID, SELFPAY ==
[2023-01-17 14:51] VITALS: BP 128/80; PULSE 80; O2SAT 95; BMI 38.8
--- NOTE | 2023-01-17 14:51 | A.OFFVIS_ITS ---
Intake Vital Signs 01/17/23 14:51 Height 5 ft 7 in Weight 247 lb 8 oz BMI 38.8 BP 128/80 Blood Pressure Location Lt brachial Position Sitting Pulse 80 Pulse Source Pulse Oximeter Pulse Oximetry (%) 95 Oxygen Delivery Method Room Air Intake Visit Reasons: Follow up - BERNIE-Confirmed Intake Note: Pt presents as a f/u for BERNIE Underwriting Account Representative Required: Yes Underwriting Account Representative Name: sarita [id number] Allergies aspirin [ASPIRIN] Allergy (Intermediate, Verified 01/17/23 14:58) SWELLING/ITCHING, rash Penicillins Allergy (Intermediate, Verified 01/17/23 14:58) ITCHING vancomycin [VANCOMYCIN] Adverse Reaction (Intermediate, Verified 01/17/23 14:58) RED MAN SYNDROME PER MD HPI HPI Comments History of Present Illness Details 57 y/o female patient presents for follo w up of sleep study. Pt had a PSG sleep study done. The PSG study result was c/w a severe degree of sleep apnea. The AHI was 73/hr and oxygen kenny was 74%. However, pt declined CPAP titration study. Pt reports difficulty falling asleep and staying sleep. She takes mirtazapine 15 mg qHS but not really helpful to promote sleep or staying sleep. She has not tried melatonin,yet. [facility] Medical History COVID-19 vaccine series completed Osteoarthritis of wrist Obesity due to excess calories Osteoarthritis of knees, bilateral Hiatal hernia History of myelofibrosis Migraines History of depression Anemia BERNIE (obstructive sleep apnea) Biliary dyskinesia CKD stage 3 due to type 2 diabetes mellitus Upper abdominal pain Chronic myeloproliferative disease History of gastritis GERD (gastroesophageal reflux disease) Diabetic neuropathy associated with type 2 diabetes mellitus Diabetic nephropathy Morbid obesity due to excess calories Hypertension Diabetes type 2, controlled Asthma Vitamin B12 deficiency Dyslipidemia Surgical History Bone marrow replaced by transplant History of resection of meningioma H/O stem cell transplant Hx of colonoscopy Hx of breast reduction, elective Hx of esophagogastroduodenoscopy History of partial hysterectomy Family History Father Heart problem HTN (hypertension) Mother Diabetes Family/Other Diabetes HTN (hypertension) Heart problem Sister Cancer Social History Household Members: None Housing: Apartment Are you a primary pediatric acute care unit nurse to a significant other at home: No Do you presently have visiting nurse or other home services: Yes Alcohol intake: never Patient Tobacco Use Status: Never used Tobacco Use of substances other than those prescribed or required for medical reasons: No Have you been hit, kicked, punched, or otherwise hurt by someone within the past year? If so, by whom?: No Advance Directives: No Advance Directives Information Provided: No Advance Directives Date on File: 03/24/16 Do you have thoughts of harming others: None Do you have a plan to hurt others: No Plan Do you have the means to hurt others: No Recently lost weight without trying: No Patient : No service: No Current occupational status: disabled Physical Exam Vital Signs: Last Vital Signs Pulse 80 01/17/23 14:51 BP 128/80 01/17/23 14:51 Pulse Ox 95 01/17/23 14:51 Oxygen Delivery Method Room Air 01/17/23 14:51 BMI result Body Mass Index 38.8 Assessment & Plan Assessment & Plan (1) Morbid obesity due to excess calories: Code(s): E66.01 - Morbid (severe) obesity due to excess calories (2) BERNIE (obstructive sleep apnea): Comment: Severe degree of sleep apnea. The AHI was 70/hr and oxygen kenny was 66%. Code(s): G47.33 - Obstructive sleep apnea (adult) (pediatric) (3) Sleep disorder: Code(s): G47.9 - Sleep disorder, unspecified Plan Advised patient to start APAP [id number]. Stressed CPAP compliance, use CPAP nightly and more than 4 hrs. Advised patient to start melatonin 3 mg along with mirtazipine to promote sleep and staying sleep. Sleep hygiene eudcation provided. Coding Level of Care Code Est Pt Level 3 (71916) Diagnoses Morbid obesity due to excess calories E66.01 BERNIE (obstructive sleep apnea) G47.33 Sleep disorder G47.9
== END 2023-01-17 15:17 | disposition home or self-care (01) ==
PROVIDERS: PCP Internal Medicine; Visit Provider Nurse Practitioner Family
DX: E66.01 Morbid (severe) obesity due to excess calories (principal); G47.33 Obstructive sleep apnea (adult) (pediatric); G47.9 Sleep disorder, unspecified
CPT/HCPCS: 99213

== ENCOUNTER → 2023-01-17 13:42 | Outpatient (BNVA) | payer MEDICAID, SELFPAY | PROVIDERS: PCP Internal Medicine; Visit Provider Nurse Practitioner Family | DX: G47.33 Obstructive sleep apnea (adult) (pediatric) (principal); G47.9 Sleep disorder, unspecified; E66.01 Morbid (severe) obesity due to excess calories; Z68.38 Body mass index [BMI] 38.0-38.9, adult | CPT/HCPCS: 99212 ==

== ENCOUNTER 2023-02-27 12:39 | Outpatient (REF) | payer MEDICAID, SELFPAY ==
[2023-02-27 13:30] LABS: MANUAL DIFF FLAG NO
[2023-02-27 14:15] LABS: Basophils Percent Auto 0.1 % (0-2); Eosinophils Absolute Auto 0.1 X10*3/uL (0.0-0.4); Eosinophils Percent Auto 1.3 % (0-4); Hematocrit 29.2 % (37.0-47.0); Hemoglobin 9.7 g/dl (12.0-16.0); Imm Gran Abs Auto 0.05 X10*3/uL (0.00-0.03); Imm Gran Pct Auto 0.6 % (0.0-0.4); Lymphocytes Absolute Auto 2.8 X10*3/uL (1.2-4.9); Lymphocytes Percent Auto 32.7 % (20-40); Mean Corpuscular HGB Conc 33.2 g/dl (31.0-35.0); Mean Corpuscular Hemoglobin 29.5 pg (27.0-33.0); Mean Corpuscular Volume 88.8 fL (80.0-98.0); Mean Platelet Volume 9.6 fL (9.4-12.3); Monocytes Absolute Auto 0.6 X10*3/uL (0.1-1.2); Monocytes Percent Auto 6.9 % (2-11); Neutrophils Absolute Auto 4.9 x10*3/uL (2.0-8.3); Neutrophils Percent Auto 58.4 % (45-73); Platelet Count 310 X10*3/uL (160-400); Red Blood Count 3.29 X10*6/uL (4.20-5.50); Red Cell Distribution Width 13.5 % (11.0-16.0); White Blood Count 8.5 X10*3/uL (4.8-10.8)
== END 2023-02-27 12:40 | disposition home or self-care (01) ==
LOC: HO.LAB 12:39
PROVIDERS: PCP Internal Medicine; Visit Provider Physician Assistant
DX: M17.0 Bilateral primary osteoarthritis of knee (principal); R16.1 Splenomegaly, not elsewhere classified
CPT/HCPCS: 36415; 85025; 99212

== ENCOUNTER 2023-02-27 12:39 | Outpatient (AMB) | payer MEDICAID, SELFPAY ==
--- NOTE | 2023-02-27 12:55 | MHC.OFFVIS ---
Intake Vital Signs 02/27/23 12:57 Height 5 ft 7 in Weight 245 lb BMI 38.4 Intake Visit Reasons: Preop LT TKA 03/04/23 NE Intake Note: Santa 57 yr old female presents today for her Pre op visit for her left TKA scheduled for 03/04/23. Pain management agreement signed and reviewed. Allergies aspirin [ASPIRIN] Allergy (Intermediate, Verified 02/27/23 12:56) SWELLING/ITCHING, rash Penicillins Allergy (Intermediate, Verified 02/27/23 12:56) ITCHING vancomycin [VANCOMYCIN] Adverse Reaction (Intermediate, Verified 02/27/23 12:56) RED MAN SYNDROME PER MD Medication List - Last Reconciled 02/27/23 by Angel Schafer PA-C acetaminophen (Tylenol Extra Strength) 1,000 mg PO TID PRN albuterol sulfate 90 mcg/actuation (ProAir HFA) 2 puffs inhalation Q4-6H PRN albuterol sulfate 2.5 mg inhalation TID amlodipine (Norvasc) 10 mg PO DAILY cholecalciferol (vitamin D3) 25 mcg PO DAILY citalopram 40 mg PO DAILY cyanocobalamin (vitamin B-12) 1,000 mcg IM QMONTH diclofenac sodium 1% 2 grams topical BID famotidine (Pepcid) 40 mg PO BEDTIME 30 days ferrous sulfate 325 mg PO DAILY fluticasone propionate 50 mcg/actuation 2 sprays intranasal DAILY PRN fluticasone propionate 110 mcg/actuation (Flovent HFA) 1 puff inhalation Q12H lidocaine 5% (Lidoderm) 1 patch topical DAILY lisinopril 5 mg PO DAILY loratadine 10 mg PO DAILY PRN metformin 500 mg PO BIDWM mirtazapine 30 mg PO BEDTIME PRN pantoprazole (Protonix) 40 mg PO DAILY@0630 pravastatin 40 mg PO BEDTIME ruxolitinib (Jakafi) 5 mg PO BID sitagliptin phosphate (Januvia) 50 mg PO DAILY 90 days tramadol 50 mg PO QID PRN HPI HPI Comments History of Present Illness Details Ms Kate presents to the office today for preop visit. She is scheduled for left total knee arthroplasty with Dr. Grigsby. She continues to have ongoing pain and difficulty with ambulation in the left knee, which is affecting her quality of life; therefore, she has elected to move forward with surgery. [facility] Medical History (Updated 02/27/23 @ 13:47 by Angel Schafer PA-C) Hx of radiation therapy Hx of transfusion of packed red blood cells COVID-19 vaccine series completed Osteoarthritis of wrist Obesity due to excess calories Osteoarthritis of knees, bilateral Hiatal hernia History of myelofibrosis History of depression Anemia BERNIE (obstructive sleep apnea) Biliary dyskinesia CKD stage 3 due to type 2 diabetes mellitus Chronic myeloproliferative disease History of gastritis GERD (gastroesophageal reflux disease) Diabetic neuropathy associated with type 2 diabetes mellitus Diabetic nephropathy Morbid obesity due to excess calories Hypertension Diabetes type 2, controlled Asthma Vitamin B12 deficiency Dyslipidemia Surgical History (Updated 02/18/23 @ 11:53 by Valeria Kent RN) Bone marrow replaced by transplant History of resection of meningioma H/O stem cell transplant Hx of colonoscopy Hx of breast reduction, elective Hx of esophagogastroduodenoscopy History of partial hysterectomy Family History Father Heart problem HTN (hypertension) Mother Diabetes Family/Other Diabetes HTN (hypertension) Heart problem Sister Cancer Social History Household Members: None Housing: Apartment Are you a primary personal care service provider to a significant other at home: No Do you presently have visiting nurse or other home services: Yes (GROUP PRESIDENT) Alcohol intake: never Patient Tobacco Use Status: Never used Tobacco Advance Directives Date on File: 03/24/16 service: No Current occupational status: disabled Review of Systems Const All systems reviewed & are unremarkable except as noted in HPI and below Physical Exam Vital Signs: BMI result Body Mass Index 38.4 Const General: cooperative, healthy appearing and no acute distress Orientation/consciousness: patient oriented x3 HEENT Head: Yes normal to inspection, Yes normocephalic and Yes atraumatic Eyes General: appearance normal, both eyes and all related structures Neck Neck: Yes normal visual inspection and Yes no lymphadenopathy Resp Effort & Inspection: normal respiratory effort and able to speak in complete sentences Cardio Rate: regular rate Peripheral pulses: Peripheral pulses 2+ throughout GI Inspection: Yes normal to inspection Palpation (GI): Soft to palpation Skin General skin exam: no rashes or lesions noted Lesions: no lesions Rashes: no rashes Neuro General: patient oriented x3 Extrem Other: Left knee: Skin intact. No open wound or abrasion. ROM is 0-95 degrees. Calf supple, nontender. NVI. Psych Appearance: grossly normal Mental Status: mental status grossly normal Assessment & Plan Assessment & Plan (1) Osteoarthritis of left knee: Code(s): M17.12 - Unilateral primary osteoarthritis, left knee Qualifiers: Osteoarthritis type: primary Qualified Code(s): M17.12 - Unilateral primary osteoarthritis, left knee Plan: I discussed in detail the procedure and what to expect pre and post operatively. We discussed the risks, benefits and alternatives to the surgery as well as the rehabilitation course. The risks; which include, but are not limited to infection, bleeding, nerve injury, ongoing pain, swelling, and stiffness, perioperative risk of injury to bones and soft tissues, and blood clots. I?ve answered all questions and with their understanding they have consented to move forward with Left total knee arthroplasty with Dr. Grigsby Orders: Orders Complete Blood Count Auto Diff Today M17.0 - Bilateral primary osteoarthritis of knee, R16.1 - Splenomegaly, not elsewhere classified Patient Instructions: Scribed for Angel Schafer PA-C, by Margarito Saldana medical secretary receptionist, on 02/27/2023. I, Angel Schafer PA-C, have personally reviewed and agree with the information entered by the scribe. Coding Level of Care Code Est Pt Level 3 (58435) Diagnoses Primary osteoarthritis of left knee M17.12 Osteoarthritis type: primary
[2023-02-27 12:57] VITALS: BMI 38.4
== END 2023-02-27 13:17 | disposition home or self-care (01) ==
PROVIDERS: PCP Internal Medicine; Visit Provider Physician Assistant
DX: M17.12 Unilateral primary osteoarthritis, left knee (principal)
CPT/HCPCS: 99213

== ENCOUNTER → 2023-03-04 08:05 | Outpatient (BNV) | payer MEDICAID, SELFPAY | PROVIDERS: PCP Internal Medicine; Visit Provider Student in an Organized Health Care Education/Training Program | DX: J96.01 Acute respiratory failure with hypoxia (principal) | CPT/HCPCS: 99222; 99232; 99233; 99499 ==

== ENCOUNTER → 2023-03-04 08:05 | Outpatient (BNV) | payer MEDICAID, SELFPAY | PROVIDERS: PCP Internal Medicine; Visit Provider Orthopaedic Surgery | DX: Z96.652 Presence of left artificial knee joint (principal) | CPT/HCPCS: 27447; 99024 ==

== ENCOUNTER 2023-03-06 16:05 | Inpatient (IN) | payer MEDICAID, SELFPAY ==
[2023-02-18 12:25] VITALS: BP 145/77; PULSE 76; RESP 18; O2SAT 96; BMI 39.0
--- NOTE | 2023-02-18 12:35 | P.CONAN_ITS ---
Documented by User: Joann Thao NP 02/27/23 12:09 HPI - Anesthesia Eval Consult details Narrative: 57yo F for Left Knee Replacement Total PCP cleared Follows renal for CKD in setting of DM / HTN. Stable at last office visit 09/2022. Follows Onc for hx meningioma s/p resection 2019, myelofibrosis s/p BMT 2012. Last office visit 07/2022. Stable with 1 year f/u. MRI for obs only. No recent illness No CP/SOB with minimal activity. Limited d/t pain BERNIE. Awaiting CPAP CKD. Follows renal Diabetes. FBS ~120 Asthma. Stable. Albuterol needed ~ 1 x weekly Myelofibrosis s/p bone marrow transplant ~2012 [facility] Active Problems Active Problems: All Active Problems (Updated 02/18/23 @ 11:51 by Valeria Kent RN) Sleep disorder (Acute) Splenomegaly (Acute) Alopecia (Acute) Abdominal pain (Acute) Morbid obesity (Acute) Localized osteoarthritis of knees, bilateral (Acute) Dyspnea on exertion (Acute) Obstructive sleep apnea (Acute) Cough (Acute) Anemia (Acute) Acalculous cholecystitis (Acute) Periumbilical abdominal pain (Acute) Abdominal bloating (Acute) GERD (gastroesophageal reflux disease) (Acute) Meningioma (Acute) BERNIE (obstructive sleep apnea) (Acute) Anemia (Acute) Osteoarthritis of wrist (Acute) Obesity due to excess calories (Acute) Osteoarthritis of knees, bilateral (Acute) Biliary dyskinesia (Acute) Chronic myeloproliferative disease (Acute) CKD stage 3 due to type 2 diabetes mellitus (Acute) Asthma (Acute) Diabetic neuropathy associated with type 2 diabetes mellitus (Acute) Diabetic nephropathy (Acute) Morbid obesity due to excess calories (Acute) Hypertension (Acute) Diabetes type 2, controlled (Acute) Dyslipidemia (Acute) Past Medical History Medical History (Updated 02/27/23 @ 13:47 by Angel Schafer PA-C) Hx of radiation therapy Hx of transfusion of packed red blood cells COVID-19 vaccine series completed Osteoarthritis of wrist Obesity due to excess calories Osteoarthritis of knees, bilateral Hiatal hernia History of myelofibrosis History of depression Anemia BERNIE (obstructive sleep apnea) Biliary dyskinesia CKD stage 3 due to type 2 diabetes mellitus Chronic myeloproliferative disease History of gastritis GERD (gastroesophageal reflux disease) Diabetic neuropathy associated with type 2 diabetes mellitus Diabetic nephropathy Morbid obesity due to excess calories Hypertension Diabetes type 2, controlled Asthma Vitamin B12 deficiency Dyslipidemia Family History Family History Father Heart problem HTN (hypertension) Mother Diabetes Family/Other Diabetes HTN (hypertension) Heart problem Sister Cancer Family history of problems with anesthesia: No Surgical History Surgical History (Updated 02/18/23 @ 11:53 by Valeria Kent RN) Bone marrow replaced by transplant History of resection of meningioma H/O stem cell transplant Hx of colonoscopy Hx of breast reduction, elective Hx of esophagogastroduodenoscopy History of partial hysterectomy History of Problems with Anesthesia: No Social History Social History Household Members: None Housing: Apartment Are you a primary life care planner to a significant other at home: No Do you presently have visiting nurse or other home services: Yes (DONOR RELATIONS COORDINATOR) Alcohol intake: never Patient Tobacco Use Status: Never used Tobacco Use of substances other than those prescribed or required for medical reasons: No Have you been hit, kicked, punched, or otherwise hurt by someone within the past year? If so, by whom?: No Advance Directives: No Advance Directives Information Provided: Yes Advance Directives on File: No Advance Directives Date on File: 03/24/16 Recently lost weight without trying: Yes How much weight loss: 14-23 pounds Nutrition Risks: No Nutritional Risk Patient : No : No Poor oral hygiene: No service: No Current occupational status: disabled Meds Allergies Allergy/AdvReac Type Severity Reaction Status Date / Time aspirin [ASPIRIN] Allergy Intermediate SWELLING/ITCHING, Verified 02/27/23 12:56 rash Penicillins Allergy Intermediate ITCHING Verified 02/27/23 12:56 vancomycin [VANCOMYCIN] AdvReac Intermediate RED MAN Verified 02/27/23 12:56 SYNDROME PER MD Home Medications Medication Instructions Recorded Confirmed Last Taken Type citalopram 40 mg tablet 40 mg PO DAILY 02/15/20 02/27/23 03/04/23 History cholecalciferol (vitamin D3) 25 25 mcg PO DAILY 02/16/20 02/27/23 02/27/23 History mcg (1,000 unit) capsule acetaminophen 500 mg tablet 1,000 mg PO TID PRN Pain (Scale 07/10/20 02/27/23 02/26/23 History (Tylenol Extra Strength) Score 4-6) tramadol 50 mg tablet 50 mg PO QID PRN Pain (Scale Score 07/10/20 02/27/23 02/24/23 History 1-3) mirtazapine 15 mg tablet 30 mg PO BEDTIME PRN Sleep 11/28/20 02/27/23 03/03/23 History albuterol sulfate 2.5 mg/3 mL 2.5 mg inhalation TID 10/07/21 02/27/23 02/26/23 History (0.083 %) solution for nebulization albuterol sulfate 90 mcg/actuation 2 puff inhalation Q4-6H PRN 10/07/21 02/27/23 02/26/23 History aerosol inhaler (ProAir HFA) Shortness Of Breath diclofenac sodium 1 % topical gel 2 g topical BID 10/07/21 02/27/23 02/27/23 History fluticasone propionate 50 2 spray intranasal DAILY PRN 10/07/21 02/27/23 03/03/23 History mcg/actuation nasal Allergy Symptoms spray,suspension lidocaine 5 % topical patch 1 patch topical DAILY 10/07/21 02/27/23 02/26/23 History (Lidoderm) loratadine 10 mg tablet 10 mg PO DAILY PRN Allergy Symptoms 10/07/21 02/27/23 03/03/23 History ruxolitinib 5 mg tablet (Jakafi) 5 mg PO BID 10/07/21 02/27/23 03/04/23 History amlodipine 5 mg tablet (Norvasc) 10 mg PO DAILY 02/18/23 02/27/23 03/04/23 H istory cyanocobalamin (vitamin B-12) 1,000 mcg IM QMONTH 02/18/23 02/27/23 02/27/23 History 1,000 mcg/mL injection solution fluticasone propionate 110 1 puff inhalation Q12H 02/18/23 02/27/23 03/03/23 History mcg/actuation HFA aerosol inhaler (Flovent HFA) lisinopril 5 mg tablet 5 mg PO DAILY 02/18/23 02/27/23 03/03/23 History pravastatin 40 mg tablet 40 mg PO BEDTIME 02/18/23 02/27/23 03/03/23 History Exam Exam Date and Time: February 18, 2023 1235 Height,Weight and Vital Signs: Height 5 ft 7 in Weight 112.945 kg Last Vital Signs Pulse 76 02/18/23 12:25 Resp 18 02/18/23 12:25 BP 145/77 H 02/18/23 12:25 Pulse Ox 96 02/18/23 12:25 O2 Del Method Room Air 02/18/23 12:25 Pertinent Lab Results Pertinent Lab Results: Lab Results 02/18/23 02/18/23 02/18/23 Range/Units 12:30 13:09 13:15 WBC 7.2 (4.8-10.8) X10*3/uL RBC 3.38 L (4.20-5.50) X10*6/uL Hgb 9.7 L (12.0-16.0) g/dl Hct 29.3 L (37.0-47.0) % MCV 86.7 (80.0-98.0) fL MCH 28.7 (27.0-33.0) pg MCHC 33.1 (31.0-35.0) g/dl RDW 13.6 (11.0-16.0) % Plt Count 278 (160-400) X10*3/uL MPV 9.3 L (9.4-12.3) fL Absolute Nucleated RBC 0.000 (0.0-0.012) X10*3/uL Nucleated RBC % (auto) 0.0 (0.0-0.2) /100WBC Sodium 141 (135-145) mmol/L Potassium 4.0 (3.3-5.1) mmol/L Chloride 108 (96-108) mmol/L Carbon Dioxide 20 L (22-29) mmol/L Anion Gap 17 (12-20) BUN 23 H (9-16) mg/dL Creatinine 1.62 H (0.5-1.4) mg/dL Estim Creat Clear Calc 48.5 Estimated GFR 33 Random Glucose 98 (60-115) mg/dL Estimat Average Glucose 126 mg/dL Hemoglobin A1c % 6.0 (<6.0) % Calcium 9.2 (8.4-10.2) mg/dL Nasal Screen MRSA (PCR) NEGATIVE (Negative) Nasal S. aureus Screen POSITIVE A (Negative) Nasal MRSA/S.aureus Interp SEE NOTE Blood Type O Positive Antibody Screen NEGATIVE Narrative Narrative: EKG 02/2023 SR @ 77 Marked LAD c/w LAFB Slight IV conduction delay ECHO 2020 Conclusions: - Normal left ventricular size and systolic function. - There is mildly increased left ventricular wall thickness. - There is mild aortic valve stenosis. Airway Mallampati Class: II TM Dist: >3cm Neck ROM: Full Loose/Missing/Broken Teeth: Yes (molars pulled) Heart: RRR Lungs: CTAB Assessment and Plan Assessment Anesthesia Assessment: Anesthesia Plan Discussed and PAT Visit Final Anesthetic Review Family History of Problems with Anesthesia: No History of Problems with Anesthesia: No Documented by User: Roshan Ware MD 03/04/23 12:39 PMFSH Past Medical History Medical History (Updated 02/27/23 @ 13:47 by Angel Schafer PA-C) Hx of radiation therapy Hx of transfusion of packed red blood cells COVID-19 vaccine series completed Osteoarthritis of wrist Obesity due to excess calories Osteoarthritis of knees, bilateral Hiatal hernia History of myelofibrosis History of depression Anemia BERNIE (obstructive sleep apnea) Biliary dyskinesia CKD stage 3 due to type 2 diabetes mellitus Chronic myeloproliferative disease History of gastritis GERD (gastroesophageal reflux disease) Diabetic neuropathy associated with type 2 diabetes mellitus Diabetic nephropathy Morbid obesity due to excess calories Hypertension Diabetes type 2, controlled Asthma Vitamin B12 deficiency Dyslipidemia Family History Family History Father Heart problem HTN (hypertension) Mother Diabetes Family/Other Diabetes HTN (hypertension) Heart problem Sister Cancer Surgical History Surgical History (Updated 02/18/23 @ 11:53 by Valeria Kent RN) Bone marrow replaced by transplant History of resection of meningioma H/O stem cell transplant Hx of colonoscopy Hx of breast reduction, elective Hx of esophagogastroduodenoscopy History of partial hysterectomy Social History Social History Household Members: None Housing: Apartment Are you a primary life care planner to a significant other at home: No Do you presently have visiting nurse or other home services: Yes (DONOR RELATIONS COORDINATOR) Alcohol intake: never Patient Tobacco Use Status: Never used Tobacco Use of substances other than those prescribed or required for medical reasons: No Have you been hit, kicked, punched, or otherwise hurt by someone within the past year? If so, by whom?: No Advance Directives: No Advance Directives Information Provided: Yes Advance Directives on File: No Advance Directives Date on File: 03/24/16 Recently lost weight without trying: Yes How much weight loss: 14-23 pounds Nutrition Risks: No Nutritional Risk Patient : No : No Poor oral hygiene: No service: No Current occupational status: disabled Meds Allergies Allergy/AdvReac Type Severity Reaction Status Date / Time aspirin [ASPIRIN] Allergy Intermediate SWELLING/ITCHING, Verified 02/27/23 12:56 rash Penicillins Allergy Intermediate ITCHING Verified 02/27/23 12:56 vancomycin [VANCOMYCIN] AdvReac Intermediate RED MAN Verified 02/27/23 12:56 SYNDROME PER MD Home Medications Medication Instructions Recorded Confirmed Last Taken Type citalopram 40 mg tablet 40 mg PO DAILY 02/15/20 02/27/23 03/04/23 History cholecalciferol (vitamin D3) 25 25 mcg PO DAILY 02/16/20 02/27/23 02/27/23 History mcg (1,000 unit) capsule acetaminophen 500 mg tablet 1,000 mg PO TID PRN Pain (Scale 07/10/20 02/27/23 02/26/23 History (Tylenol Extra Strength) Score 4-6) tramadol 50 mg tablet 50 mg PO QID PRN Pain (Scale Score 07/10/20 02/27/23 02/24/23 History 1-3) mirtazapine 15 mg tablet 30 mg PO BEDTIME PRN Sleep 11/28/20 02/27/23 03/03/23 History albuterol sulfate 2.5 mg/3 mL 2.5 mg inhalation TID 10/07/21 02/27/23 02/26/23 History (0.083 %) solution for nebulization albuterol sulfate 90 mcg/actuation 2 puff inhalation Q4-6H PRN 10/07/21 02/27/23 02/26/23 History aerosol inhaler (ProAir HFA) Shortness Of Breath diclofenac sodium 1 % topical gel 2 g topical BID 10/07/21 02/27/23 02/27/23 History fluticasone propionate 50 2 spray intranasal DAILY PRN 10/07/21 02/27/23 03/03/23 History mcg/actuation nasal Allergy Symptoms spray,suspension lidocaine 5 % topical patch 1 patch topical DAILY 10/07/21 02/27/23 02/26/23 History (Lidoderm) loratadine 10 mg tablet 10 mg PO DAILY PRN Allergy Symptoms 10/07/21 02/27/23 03/03/23 History ruxolitinib 5 mg tablet (Jakafi) 5 mg PO BID 10/07/21 02/27/23 03/04/23 History amlodipine 5 mg tablet (Norvasc) 10 mg PO DAILY 02/18/23 02/27/23 03/04/23 History cyanocobalamin (vitamin B-12) 1,000 mcg IM QMONTH 02/18/23 02/27/23 02/27/23 History 1,000 mcg/mL injection solution fluticasone propionate 110 1 puff inhalation Q12H 02/18/23 02/27/23 03/03/23 History mcg/actuation HFA aerosol inhaler (Flovent HFA) lisinopril 5 mg tablet 5 mg PO DAILY 02/18/23 02/27/23 03/03/23 History pravastatin 40 mg tablet 40 mg PO BEDTIME 02/18/23 02/27/23 03/03/23 History Assessment and Plan Final Anesthetic Review NPO: Yes ASA Class: III Final Preanesthetic Review: No Changes in Pt Med Stat, Meds/Allgs Chart Reviewed, Consent Obtained/Reviewed and Anes Risks/Benef Reviewed Patient Risk: Intermediate Procedure Risk: Intermediate Anesthetic Plan Anesthetic Plan: Spinal and Regional Block Disposition: Standard PACU
[2023-02-18 13:54] LABS: Hematocrit 29.3 % (37.0-47.0); Hemoglobin 9.7 g/dl (12.0-16.0); Mean Corpuscular HGB Conc 33.1 g/dl (31.0-35.0); Mean Corpuscular Hemoglobin 28.7 pg (27.0-33.0); Mean Corpuscular Volume 86.7 fL (80.0-98.0); Mean Platelet Volume 9.3 fL (9.4-12.3); Platelet Count 278 X10*3/uL (160-400); Red Blood Count 3.38 X10*6/uL (4.20-5.50); Red Cell Distribution Width 13.6 % (11.0-16.0); White Blood Count 7.2 X10*3/uL (4.8-10.8)
[2023-02-18 14:01] LABS: Estimated Average Glucose 126 mg/dL
[2023-02-18 15:16] LABS: Anion Gap 17 (12-20); Blood Urea Nitrogen 23 mg/dL (9-16); Calcium 9.2 mg/dL (8.4-10.2); Carbon Dioxide 20 mmol/L (22-29); Chloride 108 mmol/L (96-108); Creatinine Clr Calc Pharmacy 48.5; Estimated Glomerular Filt Rate 33; Glucose Random 98 mg/dL (60-115); Sodium 141 mmol/L (135-145)
[2023-02-18 16:05] LABS: MRSA Nasal PCR NEGATIVE (Negative); SA Nasal PCR POSITIVE (Negative)
[2023-03-04] VITALS (20 sets, daily range): BP systolic 111–158; BP diastolic 56–90; PULSE 55–91; RESP 13–20; TEMP 36–36.8; O2SAT 90–99; BMI 38.7
[2023-03-04 08:29] LABS: Glucose, Whole Blood 126 mg/dL (60-115)
[2023-03-04] MEDS: Lactated Ringers 1,000 ML 100 ML IVCONT ×2 (09:08→17:16)
[2023-03-04 09:12] LABS: Hematocrit 27.2 % (37.0-47.0); Hemoglobin 9.1 g/dl (12.0-16.0)
--- NOTE | 2023-03-04 12:51 | PC.NURSE ---
voided 350ml in the bedpan and measured clear yellow
--- NOTE | 2023-03-04 15:12 | P.BOP_ITS ---
Brief Operative Note Date of Service: 03/04/23 Pre-op diagnosis: left knee OA Post-op diagnosis: same Procedure: Left TKA Implants: Triathlon posterior stabilized cemented 09/06/10 Surgeon: Tello Grigsby MD Anesthesia: regional and spinal Was an Solar Installation Technician used for this Procedure?: Yes Solar Installation Technician: Angel Schafer Estimated blood loss (mL): 100 Tourniquet time (min): 50 IV fluids (mL): 1,000 Pathology: other Condition: stable Disposition: PACU
[2023-03-04] MEDS: fentaNYL citrate/PF 100 MCG/2 ML VIAL 25 MCG IVPUSH ×4 (15:33→15:55)
--- NOTE | 2023-03-04 15:53 | PHA.MEDREC ---
Pharmacy Consult ? Medication Reconciliation Pharmacy has completed the medication reconciliation. Reviewed med rec done by nursing
[2023-03-04 15:56] LABS: Glucose, Whole Blood 94 mg/dL (60-115)
[2023-03-04] MEDS: HYDROmorphone HCl 0.5 MG/0.5 ML SYRINGE 0.25 MG IVPUSH ×3 (16:05→21:41)
[2023-03-04 17:33] LABS: Glucose, Whole Blood 110 mg/dL (60-115)
[2023-03-04] MEDS: oxyCODONE HCl Immed Release 5 MG TABLET 10 MG PO (17:59)
[2023-03-04] MEDS: ceFAZolin Sodium/Dextrose,Iso 2 GM/50 ML PIGGYBACK IV (19:26)
[2023-03-04 20:09] LABS: Glucose, Whole Blood 168 mg/dL (60-115)
[2023-03-04] MEDS: Albuterol Sulfate (0.083%) 2.5 MG/3 ML VIAL.NEB INHALE (21:17)
[2023-03-04] MEDS: oxyCODONE HCl ER 10 MG TAB.ER.12H PO (21:40)
[2023-03-04] MEDS: Famotidine 20 MG TABLET 40 MG PO (21:40)
[2023-03-04] MEDS: Docusate Sodium 100 MG CAPSULE PO (21:40)
[2023-03-04] MEDS: Insulin Lispro 100 UNIT/ML 3 ML VIAL SUBCUT (21:42)
[2023-03-04 23:36] LABS: Creatinine Clr Calc Pharmacy 47.9; Estimated Glomerular Filt Rate 33
[2023-03-05] VITALS (10 sets, daily range): BP systolic 112–154; BP diastolic 61–77; PULSE 76–100; RESP 15–18; TEMP 36.1–36.9; O2SAT 90–96
[2023-03-05] MEDS: oxyCODONE HCl Immed Release 5 MG TABLET 10 MG PO ×3 (01:38→18:18)
[2023-03-05] MEDS: Lactated Ringers 1,000 ML 100 ML IVCONT ×2 (03:43→15:37)
[2023-03-05] MEDS: HYDROmorphone HCl 0.5 MG/0.5 ML SYRINGE 0.25 MG IVPUSH ×3 (04:19→22:57)
[2023-03-05] MEDS: ondansetron HCL 4 MG/2 ML VIAL IVPUSH (04:30)
[2023-03-05 06:13] LABS: MANUAL DIFF FLAG NO
[2023-03-05 06:26] LABS: Basophils Percent Auto 0.3 % (0-2); Eosinophils Absolute Auto 0.1 X10*3/uL (0.0-0.4); Eosinophils Percent Auto 0.7 % (0-4); Hematocrit 24.6 % (37.0-47.0); Imm Gran Abs Auto 0.05 X10*3/uL (0.00-0.03); Imm Gran Pct Auto 0.7 % (0.0-0.4); Lymphocytes Absolute Auto 1.1 X10*3/uL (1.2-4.9); Lymphocytes Percent Auto 15.5 % (20-40); Mean Corpuscular HGB Conc 32.5 g/dl (31.0-35.0); Mean Corpuscular Hemoglobin 28.9 pg (27.0-33.0); Mean Corpuscular Volume 88.8 fL (80.0-98.0); Mean Platelet Volume 9.2 fL (9.4-12.3); Monocytes Absolute Auto 0.6 X10*3/uL (0.1-1.2); Monocytes Percent Auto 8.8 % (2-11); Neutrophils Absolute Auto 5.1 x10*3/uL (2.0-8.3); Platelet Count 213 X10*3/uL (160-400); Red Blood Count 2.77 X10*6/uL (4.20-5.50); Red Cell Distribution Width 13.5 % (11.0-16.0); White Blood Count 6.9 X10*3/uL (4.8-10.8)
[2023-03-05 06:40] LABS: Anion Gap 17 (12-20); Blood Urea Nitrogen 22 mg/dL (9-16); Calcium 8.7 mg/dL (8.4-10.2); Carbon Dioxide 20 mmol/L (22-29); Chloride 108 mmol/L (96-108); Creatinine Clr Calc Pharmacy 52.9; Estimated Glomerular Filt Rate 37; Glucose Fasting 152 mg/dL (60-99); Potassium 4.5 mmol/L (3.3-5.1); Sodium 140 mmol/L (135-145)
[2023-03-05] MEDS: Omeprazole 20 MG CAPSULE.DR PO (06:43)
--- NOTE | 2023-03-05 07:17 | PM.PNORT ---
Subjective Subjective Date of Service: 03/05/23 Interval history: POD1 s/p LTKA Patient is resting in bed comfortably No overnight events Pain is managed No additional complaints Physical Exam Vital Signs: Vital Signs: Last Vital Signs Temp 96.9 F 03/05/23 04:00 Pulse 76 03/05/23 04:00 Resp 16 03/05/23 04:00 BP 154/77 H 03/05/23 04:00 Pulse Ox 96 03/05/23 04:00 O2 Del Method CPAP 03/05/23 04:00 O2 Flow Rate 3 03/04/23 16:48 BMI result Body Mass Index 38.7 Const: General: cooperative, healthy appearing and no acute distress Resp: Effort & Inspection: normal respiratory effort and able to speak in complete sentences Cardio: Rate: regular rate Peripheral pulses: Peripheral pulses 2+ throughout GI: Palpation (GI): Soft to palpation Skin: Lesions: no lesions Rashes: no rashes Extrem: Other: left knee dressing is c/d/i. Able to dorsi/plantar flex. Calf is supple and nontender. Sensation intact. Pedal pulse intact. Procedures Date of Service Date of Service: 03/05/23 Progress Note: A&P Assessment and plan (1) Status post total knee replacement, left: Status: Acute Plan Continue pain mgmnt Begin Lovenox for dvt ppx begin PT for LTKA Dispo planning-Pending PT eval, pain mgmnt Time Spent With Patient Time: Total time managing care of this patient today ____ minutes. Quality Stroke Does the patient have a stroke diagnosis?: No VTE Prior VTE?: No VTE Risk Level:: Medical - moderate - high VTE Device Contraindication: N/A - Device Ordered VTE Drug Contraindication: N/A - Med Ordered
[2023-03-05] MEDS: Albuterol Sulfate (0.083%) 2.5 MG/3 ML VIAL.NEB INHALE ×3 (07:45→19:11)
[2023-03-05 07:51] LABS: Glucose, Whole Blood 144 mg/dL (60-115)
--- NOTE | 2023-03-05 07:51 | P.OP_ITS ---
Operative Note Operative Note Date of Service: 03/04/23 Narrative: Date of Service: 03/04/23 Pre-op diagnosis: left knee OA Post-op diagnosis: same Procedure: Left TKA Implants: Triathlon posterior stabilized cemented 09/06/10 Surgeon: Tello Grigsby MD Anesthesia: regional and spinal Was an Marine Animal Trainer used for this Procedure?: Yes Marine Animal Trainer: Angel Schafer Estimated blood loss (mL): 100 Tourniquet time (min): 50 IV fluids (mL): 1,000 Pathology: other Condition: stable Disposition: PACU Procedure in detail: The patient was brought to the operating room and prepped and draped in standard sterile fashion. A time-out was called to identify proper site proper procedure proper surgeon and IV antibiotics were administered. 1 g of IV tranexamic acid was administered. She had a 20deg flexion contracture. I began by making a midline incision to the retinaculum and performed a medial parapatellar arthrotomy. The patella was translated laterally and the knee was flexed up. The medial and anterior compartemnts were eburnated. I performed a small medial peel and resected the infrapatellar fat pad. [place]'s line was then used to drill my intramedullary femoral guide and my distal femur cut of 14 mm was made in 5 degrees of valgus while protecting the soft tissues. I then measured a # 5 femur and placed my cutting guide and made my anterior posterior and chamfer cuts protecting the soft tissues at all times. I then made my box but removing the PCL. Once I was satisfied with my cuts I turned my attention to the tibia. I removed the meniscus medially and laterally and , using an external cutting guide, in line with the tibial crest and the third ray, I made my distal tibial cut in 0 deg slope of while protecting the posterior soft tissues at all times. An extension block was used to confirm appropriate amount of bony resection. I then sized a #5 tibia and once I was satisfied that there was complete tibial coverage I placed my trial and with the trial femur in place took the knee through range of motion. I was satisfied with the extension and flexion as well as the stability at 0, 30 and 90 degrees. I then turned my attention to the patella where I removed 1 cm from the undersurface of the patella and then trialed a 32a patellar button. Again the knee was taken through range of motion I was satisfied with the tracking. I then returned to the femur and drilled my femoral lug holes and prepared the tibia. A femoral bone plug was placed and the knee was irrigated copiously. 2 bags of bone cement were mixed on the back table using 4th generation cementation technique, I then press fit the patella, tibia and femur in standard fashion. I trialed different inserts until I selected a #11 insert. The final insert was placed and a 3 minutes iodine soak with local TXA was performed. The knee was then closed with a running Quill suture, a [address] on the skin. Patient was then placed in sterile dressing and brought to recovery room in stable condition there were no known complications.
--- NOTE | 2023-03-05 07:59 | PC.RT ---
pt refuses her flovent inhaler and does not want it. Please discontinue this med please.
[2023-03-05] MEDS: Ferrous Sulfate 324 MG TABLET.DR PO (08:18)
[2023-03-05] MEDS: Escitalopram Oxalate 20 MG TABLET PO (08:18)
[2023-03-05] MEDS: oxyCODONE HCl ER 10 MG TAB.ER.12H PO ×2 (08:18→18:18)
[2023-03-05] MEDS: Docusate Sodium 100 MG CAPSULE PO ×2 (08:18→18:19)
--- NOTE | 2023-03-05 09:17 | MHC.CLN ---
NUTRITION CALORIES INCREASED TO DIABETIC 1800 KCALS TO BETTER MEET ESTIMATED ENERGY NEEDS. REVIEW OF WEIGHT HISTORY SHOWS MODERATE WEIGHT LOSS TREND X ONE YEAR WITHOUT SIGNIFICANT CHANGE. WEIGHT LOSS X 2 YEARS APPROX 20#, -8%. WEIGHT LOSS FAVORABLE DUE TO OBESITY.
[2023-03-05 09:35] LABS: Glucose, Whole Blood 179 mg/dL (60-115)
[2023-03-05] MEDS: Acetaminophen 325 MG TABLET 650 MG PO ×2 (11:07→18:19)
[2023-03-05] MEDS: Insulin Lispro 100 UNIT/ML 3 ML VIAL SUBCUT ×2 (11:08→20:10)
--- NOTE | 2023-03-05 11:20 | HO.PM.IMCN ---
History of Present Illness Data of Consult Service Date: 03/05/23 Primary Care Provider: Kalpana Steele MD HPI Reason for consult: Diabetes, medical management Patient is a 58-year-old Estonian speaking female with PMH significant for HTN, HLD, chronic mild low proliferative disease, CKD 3, ehm-[id number]-pllzfzoia diabetes type 2, osteoarthritis, GERD, and BERNIE on CPAP who is admitted to the hospital under orthopedics for left TKA. POD1. Hospitalist consult for medical and diabetes management. Patient complains of left knee pain at surgical site, especially with walking. Also complains of some lightheadedness with standing. Otherwise has no acute medical complaints this time in no acute events overnight. No chest pain/pressure, palpitations. Denies shortness of breath. No headache. Denies fever, chills, nausea, vomiting, abdominal pain. Review of Systems Review of Systems: Left knee pain especially with walking Lightheadedness with standing Otherwise has no acute medical complaints PMFSH Medical History Hx of radiation therapy Hx of transfusion of packed red blood cells COVID-19 vaccine series completed Osteoarthritis of wrist Obesity due to excess calories Osteoarthritis of knees, bilateral Hiatal hernia History of myelofibrosis History of depression Anemia BERNIE (obstructive sleep apnea) Biliary dyskinesia CKD stage 3 due to type 2 diabetes mellitus Chronic myeloproliferative disease History of gastritis GERD (gastroesophageal reflux disease) Diabetic neuropathy associated with type 2 diabetes mellitus Diabetic nephropathy Morbid obesity due to excess calories Hypertension Diabetes type 2, controlled Asthma Vitamin B12 deficiency Dyslipidemia Family History Father Heart problem HTN (hypertension) Mother Diabetes Family/Other Diabetes HTN (hypertension) Heart problem Sister Cancer Surgical History Bone marrow replaced by transplant History of resection of meningioma H/O stem cell transplant Hx of colonoscopy Hx of breast reduction, elective Hx of esophagogastroduodenoscopy History of partial hysterectomy Social History Household Members: None Housing: Apartment Are you a primary healthcare consulting manager to a significant other at home: No Do you presently have visiting nurse or other home services: No Alcohol intake: never Patient Tobacco Use Status: Never used Tobacco Use of substances other than those prescribed or required for medical reasons: No Have you been hit, kicked, punched, or otherwise hurt by someone within the past year? If so, by whom?: No Do you feel safe in your current relationship?: No Current Relationship Is there a partner from a previous relationship who is making you feel unsafe now?: No Are you made to feel afraid or neglected: No Advance Directives: No Advance Directives Information Provided: Yes Advance Directives on File: No Advance Directives Date on File: 03/24/16 Do you have thoughts of harming others: None Do you have a plan to hurt others: No Plan Recently lost weight without trying: No How much weight loss: 14-23 pounds Eating poorly because of decreased appetite: No Nutrition screen score: 2 Nutrition Risks: No Nutritional Risk Patient : No : No Poor oral hygiene: No service: No Current occupational status: disabled Meds Allergies Allergy/AdvReac Type Severity Reaction Status Date / Time aspirin [ASPIRIN] Allergy Intermediate SWELLING/ITCHING, Verified 02/27/23 12:56 rash Penicillins Allergy Intermediate ITCHING Verified 02/27/23 12:56 vancomycin [VANCOMYCIN] AdvReac Intermediate RED MAN Verified 02/27/23 12:56 SYNDROME PER MD Active Medications: Current Medications Acetaminophen (Acetaminophen 325 Mg Tablet) 650 mg PO Q6H PRN PRN Reason: Pain, Mild (Pain Scale 1-3) Last Admin: 03/05/23 11:07 Dose: 650 mg Albuterol Sulfate (Albuterol Sulfate 90 Mcg 8 Gm Inhaler) 2 puff INHALE Q4H PRN PRN Reason: Shortness Of Breath Albuterol Sulfate (Albuterol Sulfate (0.083%) 2.5 Mg/3 Ml Vial.Neb) 2.5 mg INHALE TID [facility] Last Admin: 03/05/23 07:45 Dose: 2.5 mg Dextrose (Dextrose 50 % 25 Gm/50 Ml Syringe) 25 gm IVPUSH Q15M PRN; Protocol PRN Reason: per Hypoglycemia Standing Ord. Docusate Sodium (Docusate Sodium 100 Mg Capsule) 100 mg PO BID [facility] Last Admin: 03/05/23 08:18 Dose: 100 mg Enoxaparin Sodium (Enoxaparin Sodium 40 Mg/0.4 Ml Syringe) 40 mg SUBCUT Q24H [facility] Escitalopram Oxalate (Escitalopram Oxalate 20 Mg Tablet) 20 mg PO DAILY [facility] Last Admin: 03/05/23 08:18 Dose: 20 mg Famotidine (Famotidine 20 Mg Tablet) 40 mg PO BEDTIME [facility] Last Admin: 03/04/23 21:40 Dose: 40 mg Ferrous Sulfate (Ferrous Sulfate 324 Mg Tablet.) 324 mg PO DAILY [facility] Last Admin: 03/05/23 08:18 Dose: 324 mg Fluticasone Propionate (Fluticasone Propionate Nasal 16 Gm [place]) 2 spray NOSTRIL-B DAILY PRN PRN Reason: Allergy Symptoms Fluticasone Propionate (Fluticasone Propionate 100 Mcg Blst.W.Dev) 1 puff INHALE RBID [facility] Last Admin: 03/05/23 07:47 Dose: Not Given Glucose (Glucose Gel 15 Gm Gel..Gram.) 15 gm PO Q15M PRN; Protocol PRN Reason: per Hypoglycemia Standing Ord. Hydromorphone HCl (Hydromorphone Hcl 0.5 Mg/0.5 Ml Syringe) 0.25 mg IVPUSH Q4H PRN; Protocol PRN Reason: Pain, Severe (Pain Scale 7-10) Last Admin: 03/05/23 04:19 Dose: 0.25 mg Lactated Ringer's (Lr) 1,000 mls @ 100 mls/hr IVCONT .Q10H [facility] Last Admin: 03/05/23 03:43 Dose: 100 mls/hr Insulin Human Lispro (Insulin Lispro 100 Unit/Ml 3 Ml Vial) 0 unit SUBCUT QIDACHS [facility]; Protocol Last Admin: 03/05/23 11:08 Dose: 2 unit Loratadine (Loratadine 10 Mg Tablet) 10 mg PO DAILY PRN PRN Reason: Allergy Symptoms Mirtazapine (Mirtazapine 30 Mg Tablet) 30 mg PO BEDTIME PRN PRN Reason: Sleep Omeprazole (Omeprazole 20 Mg Capsule.) 20 mg PO DAILY@0630 [facility] Last Admin: 03/05/23 06:43 Dose: 20 mg Ondansetron HCl (Ondansetron Hcl 4 Mg/2 Ml Vial) 4 mg IVPUSH Q8H PRN PRN Reason: Nausea and Vomiting Last Admin: 03/05/23 04:30 Dose: 4 mg Oxycodone HCl (Oxycodone Hcl Immed Release 5 Mg Tablet) 10 mg PO Q4H PRN PRN Reason: Pain, Moderate(Pain Scale 4-6) Last Admin: 03/05/23 11:07 Dose: 10 mg Oxycodone HCl (Oxycodone Hcl Er 10 Mg Tab.Er.12h) 10 mg PO BID [facility] Last Admin: 03/05/23 08:18 Dose: 10 mg Sodium Chloride (0.9 % Sodium Chloride Flush 3 Ml Syringe) 3 ml IVFLUSH QSHIFT [facility] Last Admin: 03/05/23 08:20 Dose: Not Given Home Medications Medication Instructions Recorded Confirmed Last Taken Type citalopram 40 mg tablet 40 mg PO DAILY 02/15/20 02/27/23 03/04/23 History cholecalciferol (vitamin D3) 25 25 mcg PO DAILY 02/16/20 02/27/23 02/27/23 History mcg (1,000 unit) capsule acetaminophen 500 mg tablet 1,000 mg PO TID PRN Pain (Scale 07/10/20 02/27/23 02/26/23 History (Tylenol Extra Strength) Score 4-6) tramadol 50 mg tablet 50 mg PO QID PRN Pain (Scale Score 07/10/20 02/27/23 02/24/23 History 1-3) mirtazapine 15 mg tablet 30 mg PO BEDTIME PRN Sleep 11/28/20 02/27/23 03/03/23 History albuterol sulfate 2.5 mg/3 mL 2.5 mg inhalation TID 10/07/21 02/27/23 02/26/23 History (0.083 %) solution for nebulization albuterol sulfate 90 mcg/actuation 2 puff inhalation Q4-6H PRN 10/07/21 02/27/23 02/26/23 History aerosol inhaler (ProAir HFA) Shortness Of Breath diclofenac sodium 1 % topical gel 2 g topical BID 10/07/21 02/27/23 02/27/23 History fluticasone propionate 50 2 spray intranasal DAILY PRN 10/07/21 02/27/23 03/03/23 History mcg/actuation nasal Allergy Symptoms spray,suspension lidocaine 5 % topical patch 1 patch topical DAILY 10/07/21 02/27/23 02/26/23 History (Lidoderm) loratadine 10 mg tablet 10 mg PO DAILY PRN Allergy Symptoms 10/07/21 02/27/23 03/03/23 History ruxolitinib 5 mg tablet (Jakafi) 5 mg PO BID 10/07/21 02/27/23 03/04/23 History amlodipine 5 mg tablet (Norvasc) 10 mg PO DAILY 02/18/23 02/27/23 03/04/23 History cyanocobalamin (vitamin B-12) 1,000 mcg IM QMONTH 02/18/23 02/27/23 02/27/23 History 1,000 mcg/mL injection solution fluticasone propionate 110 1 puff inhalation Q12H 02/18/23 02/27/23 03/03/23 History mcg/actuation HFA aerosol inhaler (Flovent HFA) lisinopril 5 mg tablet 5 mg PO DAILY 02/18/23 02/27/23 03/03/23 History pravastatin 40 mg tablet 40 mg PO BEDTIME 02/18/23 02/27/23 03/03/23 History Physical Exam Vital Signs and Narrative: Vital Signs: Last Vital Signs Temp 97.9 F 03/05/23 07:43 Pulse 87 03/05/23 09:39 Resp 16 03/05/23 07:47 BP 141/61 H 03/05/23 09:39 Pulse Ox 94 03/05/23 09:39 O2 Del Method CPAP 03/05/23 07:43 O2 Flow Rate 3 03/04/23 16:48 BMI result Body Mass Index 38.7 General: AOx3, no acute distress Resp: CTA bilaterally CVS: S1, S2, RRR GI: +BS, NT, no distention Skin: No rash Neuro: Cranial nerves II-XII grossly intact bilaterally. Motor grossly intact bilaterally Extremities: No edema. Left knee wrapped in clean bandages Psych: Appropriate affect Results Labs 03/05/23 05:57 03/05/23 05:57 Labs: Laboratory Results - last 24 hr 03/04/23 03/04/23 03/04/23 15:53 17:28 20:05 MCV MCH MCHC RDW Plt Count MPV Immature Gran % (Auto) Neut % (Auto) Lymph % (Auto) Millard % (Auto) Eos % (Auto) Baso % (Auto) Lymph # (Auto) Millard # (Auto) Eos # (Auto) Baso # (Auto) Abs Immat Gran (auto) Absolute Neuts (auto) Absolute Nucleated RBC Nucleated RBC % (auto) Anion Gap Estim Creat Clear Calc Estimated GFR POC Glucose 94 110 168 H Fasting Glucose Calcium 03/04/23 03/05/23 03/05/23 23:15 05:57 07:32 MCV 88.8 MCH 28.9 MCHC 32.5 RDW 13.5 Plt Count 213 D MPV 9.2 L Immature Gran % (Auto) 0.7 H Neut % (Auto) 74.0 H Lymph % (Auto) 15.5 L Millard % (Auto) 8.8 Eos % (Auto) 0.7 Baso % (Auto) 0.3 Lymph # (Auto) 1.1 L Millard # (Auto) 0.6 Eos # (Auto) 0.1 Baso # (Auto) 0.0 Abs Immat Gran (auto) 0.05 H Absolute Neuts (auto) 5.1 Absolute Nucleated RBC 0.000 Nucleated RBC % (auto) 0.0 Anion Gap 17 Estim Creat Clear Calc 47.9 52.9 Estimated GFR 33 37 POC Glucose 144 H Fasting Glucose 152 H Calcium 8.7 03/05/23 09:29 MCV MCH MCHC RDW Plt Count MPV Immature Gran % (Auto) Neut % (Auto) Lymph % (Auto) Millard % (Auto) Eos % (Auto) Baso % (Auto) Lymph # (Auto) Millard # (Auto) Eos # (Auto) Baso # (Auto) Abs Immat Gran (auto) Absolute Neuts (auto) Absolute Nucleated RBC Nucleated RBC % (auto) Anion Gap Estim Creat Clear Calc Estimated GFR POC Glucose 179 H Fasting Glucose Calcium Imaging Radiologist's Impressions: Impressions Knee X-Ray 03/04/23 16:12 IMPRESSION: Left knee arthroplasty in anatomic alignment and position. Assessment and Plan (1) Status post total knee replacement, left: Status: Acute Plan Patient is a 58-year-old Estonian speaking female with PMH significant for HTN, HLD, chronic mild low proliferative disease, CKD 3, [id number] diabetes type 2, osteoarthritis, GERD, and BERNIE on CPAP who is admitted to the hospital under orthopedics for left TKA. POD1. Hospitalist consult for medical and diabetes management. Left TKA Pt complaining of left knee pain, just received pain meds 10 minutes prior Plan as per Orthopedics HTN BP slightly high Continue lisinopril, amlodipine [id number] diabetes type 2 Glucose levels slightly high Will hold metformin Will restart Januvia, continue sliding scale insulin Diabetic diet HLD Continue statin CKD 3 Creatinine stable, at baseline COPD Not in acute exacerbation Continue home inhalers Mood disorder Continue home meds BERNIE Continue CPAP at night GERD Continue famotidine, pantoprazole Thank you for allowing us to participate in the care of this patient. Signing off at this time. Please re-consult if any acute complaints or questions arise.
[2023-03-05 11:25] LABS: Glucose, Whole Blood 182 mg/dL (60-115)
[2023-03-05] MEDS: SITagliptin Phosphate 50 MG TABLET PO (11:59)
[2023-03-05] MEDS: lisinopriL 5 MG TABLET PO (11:59)
--- NOTE | 2023-03-05 13:38 | MHC.CM.PN ---
pt lives alone has oca services ,pt and family are agreeable to str ,referrals made
--- NOTE | 2023-03-05 14:02 | HO.POSTANES ---
Post Anesthesia Evaluation Post Anesthesia Evaluation Date of Service: 03/05/23 Vital Signs: Vital Signs Temp Pulse Resp BP Pulse Ox O2 Del Method 03/05/23 09:39 87 141/61 H 94 03/05/23 07:47 85 16 03/05/23 07:43 97.9 F 81 112/69 90 L CPAP 03/05/23 04:00 96.9 F 76 16 154/77 H 96 CPAP Anesthesia: Spinal and Nerve Block Mental Status: Awake Pain Control: Satisfactory Nausea/Vomiting: None Hydration: Adequate Anesthesia-Related Issues: No Anes. Related Issues
[2023-03-05] MEDS: Enoxaparin Sodium 40 MG/0.4 ML SYRINGE SUBCUT (14:46)
[2023-03-05 16:02] LABS: Glucose, Whole Blood 145 mg/dL (60-115)
[2023-03-05] MEDS: Fluticasone Propionate 100 MCG BLST.W.DEV 1 PUFF INHALE (19:11)
[2023-03-05] MEDS: Famotidine 20 MG TABLET 40 MG PO (20:01)
[2023-03-05] MEDS: Pravastatin Sodium 40 MG TABLET PO (20:01)
[2023-03-05 20:09] LABS: Glucose, Whole Blood 173 mg/dL (60-115)
[2023-03-06] VITALS (17 sets, daily range): BP systolic 110–169; BP diastolic 66–86; PULSE 77–105; RESP 18–20; TEMP 36–36.9; O2SAT 89–99
--- NOTE | 2023-03-06 | ECG_ITS ---
Test Reason : hypoxia Blood Pressure : / mmHG Vent. Rate : 098 BPM Atrial Rate : 098 BPM P-R Int : 124 ms QRS Dur : 112 ms QT Int : 360 ms P-R-T Axes : 023 -52 050 degrees QTc Int : 459 ms Normal sinus rhythm Left anterior fascicular block Moderate voltage criteria for LVH, may be normal variant ( R in aVL , Brent product ) Abnormal ECG When compared with ECG of 16-AUG-2021 10:30, Vent. rate has increased BY 33 BPM Referred By: Kai Polo Electronically Signed By:ANAYELI REICH MD
--- NOTE | ~2023-03-06 | US_ITS ---
EXAMINATION: US VENOUS ULTRASOUND WITH DOPPLER LOWER EXTREMITY, BILATERAL CLINICAL INFORMATION: Hypoxia. Elevated d-dimer. Rule out DVT COMPARISON: None available. TECHNIQUE: Ultrasound of the deep veins is performed from the hip to the calf with compression sonography and color and pulse Doppler assessment. Spectral analysis with color-flow imaging is performed. FINDINGS: RIGHT: There is normal venous compression and respiratory variation and augmented flow. The visualized common femoral vein, superficial femoral vein, profunda femoral vein, popliteal vein, and the trifurcation region shows no evidence of deep venous thrombosis. There is no significant popliteal fossa cyst. LEFT: There is normal venous compression and respiratory variation and augmented flow. The visualized common femoral vein, superficial femoral vein, profunda femoral vein, and popliteal vein shows no evidence of deep venous thrombosis. Left peroneal and posterior tibial veins not well visualized. There is no significant popliteal fossa cyst. US/US venous duplex LE BI IMPRESSION: No DVT demonstrated in the bilateral lower extremity. Left posterior tibial and peroneal veins in the calf not well visualized.
--- NOTE | ~2023-03-06 | XR_ITS ---
EXAMINATION: XR CHEST CLINICAL INFORMATION: Hypoxia COMPARISON: Chest 07/03/2022. TECHNIQUE: Frontal view of the chest was obtained. FINDINGS: There is mild cardiomegaly with prominent pulmonary vascularity but no congestion seen. The lungs are expanded with right upper lobe atelectasis/infiltrate. No gross bony abnormality seen. XR/XR chest 1V IMPRESSION: 1. Right upper lobe atelectasis/infiltrate. 2. Mild cardiomegaly with prominent pulmonary vascularity but no congestion seen.
--- NOTE | ~2023-03-06 | NM_ITS ---
EXAMINATION: NM LUNG IMAGE PERFUSION only CLINICAL INFORMATION: Hypoxia COMPARISON: Chest film 03/06/2023 TECHNIQUE: 4 mCi technetium MAA FINDINGS: Mildly heterogeneous perfusion. No segmental defect is seen here. Correlation is made with chest x-ray 03/06/2023 NM/NM pul perfusion IMPRESSION: Findings described above. I believe these would constitute a low probability for pulmonary embolism.
--- NOTE | ~2023-03-06 | XR_ITS ---
EXAMINATION: XR CHEST CLINICAL INFORMATION: Worsening hypoxia. COMPARISON: Chest x-ray March 06, 2023, 7:58 PM TECHNIQUE: Frontal portable view of the chest was obtained. 2240 hours FINDINGS: Redemonstration of streaky linear perihilar opacity in the right upper lobe which is similar to the prior chest x-ray today. No new airspace disease. No pulmonary vascular congestion. The cardiac and mediastinal contours are normal. XR/XR chest 1V IMPRESSION: Persistent streaky linear opacity in the right upper lobe similar prior chest x-ray today.
--- NOTE | ~2023-03-06 | XR_ITS ---
EXAMINATION: XR KNEE, LEFT CLINICAL INFORMATION: Left total knee arthroplasty COMPARISON: None available. TECHNIQUE: Frontal and lateral portable views of the left knee. FINDINGS: There is a left knee replacement in anatomic alignment and position with associated skin rd and tissue changes. XR/XR knee LT 2V IMPRESSION: Left knee arthroplasty in anatomic alignment and position.
[2023-03-06] MEDS: Lactated Ringers 1,000 ML 100 ML IVCONT (00:28)
[2023-03-06] MEDS: oxyCODONE HCl Immed Release 5 MG TABLET 10 MG PO ×3 (04:19→16:52)
[2023-03-06] MEDS: Omeprazole 20 MG CAPSULE.DR PO (05:31)
[2023-03-06] MEDS: HYDROmorphone HCl 0.5 MG/0.5 ML SYRINGE 0.25 MG IVPUSH (05:42)
--- NOTE | 2023-03-06 06:13 | PM.DS ---
DS: Providers Provider Date of Service: 03/12/23 Primary care physician: Kalpana Steele MD Consults: 03/04/23 16:59 Consult to Hospitalist Routine Comment: Consulting Provider: Hospitalist Reason For Exam: diabetes DS: Diagnosis Discharge Diagnosis (1) Status post total knee replacement, left: Status: Acute DS: Summary Hospital Course Hospital Course: The patient underwent a successful left total knee arthroplasty on 03/04/23, was transferred to PACU and then to the floor to recover. During their stay, their vitals were stable, afebrile at 97.5. Labs were unremarkable, H/H 8.5 /26.3 . POD 1 he was started on Lovenox for DVT ppx, they also received Physical Therapy services twice a day. POD 1 hospitalist was called to see patient around 20:00 patient with tachypea, sob, accessory muscles. lungs were CTA without wheezing. given neb and empiric 60mg iv lasix. EKG was unremarkable, abg with mild resp acidosis (?chronic) and chronic metabolic acidosis, akilah on CKD III (creatining increased from 1.56 to 2.06. ddimer around 1500 (likely due to surgery, would hold off on CTA due to akilah, will order dopplers), CXR with rul opacity ? atelectasis vs infiltrate. requiring 4L 02. patient put on her chornic cpap for night with much improvement. 1.Left TKA -persistent pain, will DC IV morphine placed on oxycodone 5 mg Q 4 hour continue same upon discharge -status post 1 unit of PRBC, hematocrit improved to 26 -constipation resolved continue Colace , MiraLax -encourage incentive spirometry 2. Acute hypoxic respiratory failure -likely due to anemia, postop and obstructive sleep apnea, on 2 L of oxygen finger oximetry 97%, -V/Q unremarkable -oxygen discontinued finger oximetry 95% recommend to use oxygen with activity as needed at rehab, encourage incentive spirometry, out of bed to chair 3.Acute on chronic normocytic anemia -history of stem cell transplant, received 1 unit of packed RBC ,hematocrit improved continue iron supplement , continue outpatient follow-up with Dr. Rosales 4.HTN -BP better controlled, continue amlodipine 10 mg and lisinopril 5 mg daily 5.Nsu-nuqwlbd-fsnhblyyb diabetes type 2 -blood sugars stable, resume metformin , continue diabetic diet, Januvia and lispro correctional scale 6.CKD 3 -stable 7.BERNIE -Continue CPAP at night, not on home CPAP 8. Mood disorder continue Lexapro Physical therapy should include gait training, ROM to tolerance and quad strength. She is WBAT. Prior to discharge, her dressing was changed, incision clean dry and intact, new Aquacel dressing applied. The Aquacel dressing should remain intact and dry at all times. Any concerns with the dressing, please contact orthopedic office. No showering. The plan is to be discharged home to [facility] - length of stay less than 30 days Time Attestation Discharge coordination time: Less than 30 minutes Quality: Safe Use of Opioids Does Pt have an Active Cancer Diagnosis on the Problem List?: No Quality: Stroke Does the patient have a stroke diagnosis?: No Physical Exam Vital Signs: Vital Signs: Last Vital Signs Temp 97.5 F 03/06/23 04:00 Pulse 101 H 03/06/23 04:00 Resp 18 03/06/23 04:00 BP 169/76 H 03/06/23 04:00 Pulse Ox 93 03/06/23 04:00 O2 Del Method CPAP 03/06/23 04:00 O2 Flow Rate 3 03/04/23 16:48 BMI result Body Mass Index 38.7 DS: Data Data Completed and Pending Pending studies at discharge: Pending at discharge 03/04/23 14:59 Surgical [PTH] Routine Labs on day of discharge: Laboratory Results - last 24 hr 03/05/23 03/05/23 03/05/23 05:57 07:32 09:29 WBC 6.9 RBC 2.77 L Hgb 8.0 L Hct 24.6 L MCV 88.8 MCH 28.9 MCHC 32.5 RDW 13.5 Plt Count 213 D MPV 9.2 L Immature Gran % (Auto) 0.7 H Neut % (Auto) 74.0 H Lymph % (Auto) 15.5 L Smyth % (Auto) 8.8 Eos % (Auto) 0.7 Baso % (Auto) 0.3 Lymph # (Auto) 1.1 L Smyth # (Auto) 0.6 Eos # (Auto) 0.1 Baso # (Auto) 0.0 Abs Immat Gran (auto) 0.05 H Absolute Neuts (auto) 5.1 Absolute Nucleated RBC 0.000 Nucleated RBC % (auto) 0.0 Sodium 140 Potassium 4.5 Chloride 108 Carbon Dioxide 20 L Anion Gap 17 BUN 22 H Creatinine 1.46 H Estim Creat Clear Calc 52.9 Estimated GFR 37 POC Glucose 144 H 179 H Fasting Glucose 152 H Calcium 8.7 03/05/23 03/05/23 03/05/23 11:01 15:58 20:05 WBC RBC Hgb Hct MCV MCH MCHC RDW Plt Count MPV Immature Gran % (Auto) Neut % (Auto) Lymph % (Auto) Smyth % (Auto) Eos % (Auto) Baso % (Auto) Lymph # (Auto) Smyth # (Auto) Eos # (Auto) Baso # (Auto) Abs Immat Gran (auto) Absolute Neuts (auto) Absolute Nucleated RBC Nucleated RBC % (auto) Sodium Potassium Chloride Carbon Dioxide Anion Gap BUN Creatinine Estim Creat Clear Calc Estimated GFR POC Glucose 182 H 145 H 173 H Fasting Glucose Calcium Discharge Plan Discharge Anticipated Discharge Date/Time: 03/12/23 11:41 Patient Disposition: Xfer SNF Discharge Diagnosis: LT TKA Referrals: [facility] [Outside] - 1 Week Angel Schafer PA-C [Physician Side [facility]] - 1 Week [place]03[place]20/23 12:[place] [facility] [place] [facility] Angel Schafer PA-C[place] Discharge Medications: New acetaminophen 325 mg Tablet 650 mg PO Q6H PRN (Reason: Pain, Mild (Pain Scale 1-3)) 30 Days Qty: 240 0RF docusate sodium 100 mg Capsule 100 mg PO BID 14 Days Qty: 28 0RF oxycodone 5 mg Tablet 5 mg PO Q4H PRN (Reason: Pain, Severe (Pain Scale 7-10)) 7 Days Qty: 42 0RF Rx Instructions: Partial Fill upon patient request. enoxaparin 40 mg/0.4 mL Syringe 40 mg subcut Q24H 35 Days Qty: 14 0RF Continued metformin 500 mg tablet 500 mg PO BIDWM Qty: 60 4RF Januvia 50 mg tablet 50 mg PO DAILY 90 Days Qty: 90 0RF Rx Instructions: Dose reduced based on GFR ferrous sulfate 325 mg (65 mg iron) tablet 325 mg PO DAILY Qty: 30 6RF citalopram 40 mg Tablet 40 mg PO DAILY lidocaine [Lidoderm] 5 % Adhesive Patch,Medicated 1 patch TOPICAL DAILY Rx Instructions: leave on most painful area for up to 12 hrs fluticasone propionate 50 mcg/actuation [place]lin,Suspension 2 spray INTRANASAL DAILY PRN (Reason: Allergy Symptoms) Rx Instructions: administer into each nostril loratadine 10 mg Tablet 10 mg PO DAILY PRN (Reason: Allergy Symptoms) diclofenac sodium 1 % Gel 2 g TOPICAL BID Rx Instructions: apply to single elbow, wrist or hand; for hand includes palm/fingers/back of hand albuterol sulfate 2.5 mg /3 mL (0.083 %) solution for nebulization 2.5 mg inhalation TID albuterol sulfate [ProAir HFA] 90 mcg/actuation Hfa Aerosol Inhaler 2 puff INHALATION Q4-6H PRN (Reason: Shortness Of Breath) Jakafi 5 mg Tablet 5 mg PO BID amlodipine [Norvasc] 5 mg tablet 10 mg PO DAILY cyanocobalamin (vitamin B-12) 1,000 mcg/mL Solution 1,000 mcg IM QMONTH lisinopril 5 mg Tablet 5 mg PO DAILY pravastatin 40 mg Tablet 40 mg PO BEDTIME fluticasone propionate [Flovent HFA] 110 mcg/actuation Hfa Aerosol Inhaler 1 puff INHALATION Q12H cholecalciferol (vitamin D3) 25 mcg (1,000 unit) capsule 25 mcg PO DAILY mirtazapine 15 mg tablet 30 mg PO BEDTIME PRN (Reason: Sleep) famotidine [Pepcid] 40 mg tablet 40 mg PO BEDTIME 30 Days Qty: 30 6RF pantoprazole [Protonix] 40 mg tablet,delayed release (DR/EC) 40 mg PO DAILY@0630 Qty: 30 6RF Discontinued tramadol 50 mg tablet 50 mg PO QID PRN (Reason: Pain (Scale Score 1-3)) acetaminophen [Tylenol Extra Strength] 500 mg tablet 1,000 mg PO TID PRN (Reason: Pain (Scale Score 4-6)) Discharge Orders: Discharge Order (Routine); Ordered 03/12/23 Ordered By: Angel Schafer Diet: Regular diet Activity on Discharge: Use cane or walker Stand Alone Forms: Patient Portal Discharge page Activity Restrictions/Additional Instructions: Physical Therapy for Total knee arthroplasty: WBAT, gait training, ROM 0-12, quad strength Limit stair climbing No showering, no tub bath-keep dressing clean, dry and intact No driving x6 weeks Continue Lovenox x 6 weeks [place] [facility] [place]/23 12:[place] [facility] [place] Sur[facility] Schafer PA-C --you will also have your first out patient PT eval on the day of your post op appt-so please plan on being in the office that day for an extended period of time. Care Plan Goals: Use CPAP at night Oxygen as needed to keep finger oximetry greater than 94 Receive 1 unit of packed RBC hemoglobin greater than 8 Health Concerns: Monitor O2 levels CPAP at night Plan of Treatment: Physical Therapy Pain management DVT prophylaxis Assessment: above
[2023-03-06 06:14] LABS: MANUAL DIFF FLAG NO
[2023-03-06 06:20] LABS: Basophils Percent Auto 0.1 % (0-2); Eosinophils Percent Auto 0.5 % (0-4); Hematocrit 23.6 % (37.0-47.0); Hemoglobin 7.6 g/dl (12.0-16.0); Imm Gran Abs Auto 0.06 X10*3/uL (0.00-0.03); Imm Gran Pct Auto 0.7 % (0.0-0.4); Lymphocytes Absolute Auto 1.3 X10*3/uL (1.2-4.9); Lymphocytes Percent Auto 14.9 % (20-40); Mean Corpuscular HGB Conc 32.2 g/dl (31.0-35.0); Mean Corpuscular Hemoglobin 28.8 pg (27.0-33.0); Mean Corpuscular Volume 89.4 fL (80.0-98.0); Mean Platelet Volume 9.2 fL (9.4-12.3); Monocytes Absolute Auto 0.7 X10*3/uL (0.1-1.2); Monocytes Percent Auto 7.9 % (2-11); Neutrophils Absolute Auto 6.4 x10*3/uL (2.0-8.3); Neutrophils Percent Auto 75.9 % (45-73); Platelet Count 211 X10*3/uL (160-400); Red Blood Count 2.64 X10*6/uL (4.20-5.50); White Blood Count 8.5 X10*3/uL (4.8-10.8)
[2023-03-06 06:37] LABS: Anion Gap 15 (12-20); Blood Urea Nitrogen 19 mg/dL (9-16); Calcium 8.7 mg/dL (8.4-10.2); Carbon Dioxide 22 mmol/L (22-29); Chloride 107 mmol/L (96-108); Creatinine Clr Calc Pharmacy 49.5; Estimated Glomerular Filt Rate 34; Glucose Fasting 163 mg/dL (60-99); Potassium 4.6 mmol/L (3.3-5.1); Sodium 139 mmol/L (135-145)
[2023-03-06 07:30] LABS: Glucose, Whole Blood 135 mg/dL (60-115)
[2023-03-06] MEDS: Albuterol Sulfate (0.083%) 2.5 MG/3 ML VIAL.NEB INHALE ×3 (07:44→19:48)
[2023-03-06] MEDS: amLODIPine Besylate 10 MG TABLET PO (08:15)
[2023-03-06] MEDS: lisinopriL 5 MG TABLET PO (08:15)
[2023-03-06] MEDS: Docusate Sodium 100 MG CAPSULE PO ×2 (08:15→21:19)
[2023-03-06] MEDS: Escitalopram Oxalate 20 MG TABLET PO (08:15)
[2023-03-06] MEDS: Ferrous Sulfate 324 MG TABLET.DR PO (08:15)
[2023-03-06] MEDS: SITagliptin Phosphate 50 MG TABLET PO (08:15)
[2023-03-06] MEDS: oxyCODONE HCl ER 10 MG TAB.ER.12H PO ×2 (08:15→21:19)
--- NOTE | 2023-03-06 09:08 | PM.PNORT ---
Subjective Subjective Date of Service: 03/06/23 Interval history: POD2 s/p LTKA Patient is resting in bed comfortably No overnight events Pain is managed No additional complaints Physical Exam Vital Signs: Vital Signs: Last Vital Signs Temp 97 F 03/06/23 08:00 Pulse 94 03/06/23 08:00 Resp 18 03/06/23 08:00 BP 126/71 03/06/23 08:00 Pulse Ox 94 03/06/23 08:16 O2 Del Method Nasal Cannula 03/06/23 08:16 O2 Flow Rate 2 03/06/23 08:16 BMI result Body Mass Index 38.7 Const: General: cooperative, healthy appearing and no acute distress Resp: Effort & Inspection: normal respiratory effort and able to speak in complete sentences Cardio: Rate: regular rate Peripheral pulses: Peripheral pulses 2+ throughout GI: Palpation (GI): Soft to palpation Skin: Lesions: no lesions Rashes: no rashes Extrem: Other: left knee dressing is c/d/i. [employer] intact. dRessing changed at bedside. Able to dorsi/plantar flex. Calf is supple and nontender. Sensation intact. Pedal pulse intact. Procedures Date of Service Date of Service: 03/06/23 Progress Note: A&P Assessment and plan (1) Status post total knee replacement, left: Status: Acute Assessment and Plan: Continue pain mgmnt Continue Lovenox for dvt ppx Continue PT for LTKA Dispo planning-Pending PT, pain mgmnt, rehab placement Time Spent With Patient Time: Total time managing care of this patient today ____ minutes. Quality Stroke Does the patient have a stroke diagnosis?: No VTE Prior VTE?: No VTE Risk Level:: Medical - moderate - high VTE Device Contraindication: N/A - Device Ordered VTE Drug Contraindication: N/A - Med Ordered
[2023-03-06 11:36] LABS: Glucose, Whole Blood 159 mg/dL (60-115)
[2023-03-06] MEDS: Acetaminophen 325 MG TABLET 650 MG PO (11:54)
[2023-03-06] MEDS: Insulin Lispro 100 UNIT/ML 3 ML VIAL SUBCUT (12:04)
[2023-03-06] MEDS: Enoxaparin Sodium 40 MG/0.4 ML SYRINGE SUBCUT (13:18)
--- NOTE | 2023-03-06 14:37 | P.PNIM_ITS ---
Subjective Subjective Date of Service: 03/06/23 Interval History: Resting in bed complaining of mild lightheadedness, denies nausea, no vomiting tolerating diet, good pain control no other acute events overnight, noted to have significant drop in hematocrit this morning to 23.6 has underlying history of myelofibrosis with history of anemia and splenomegaly. Also have B12 deficiency anemia. Received B12 shot prior to surgery, no GI bleed noted. Review of Systems All other system reviewed and negative. Physical Exam 2 Vital Signs: Vital Signs: Last Vital Signs Temp 97.4 F 03/06/23 12:00 Pulse 92 03/06/23 12:00 Resp 18 03/06/23 12:00 BP 137/77 03/06/23 12:00 Pulse Ox 94 03/06/23 09:10 O2 Del Method Nasal Cannula 03/06/23 08:16 O2 Flow Rate 2 03/06/23 08:16 BMI result Body Mass Index 38.7 Const: Other: General Awake alert x3, no acute distress. Anicteric sclera Neck supple no JVD. CVS regular rate rhythm, Respiratory lungs clear to auscultation, no respiratory distress, no wheeze, no rhonchi. Gastrointestinal abdomen obese ,soft, non tender, bowel sounds audible,no guarding , no rigidity. Extremities no edema. Left knee dressing in place with ice pack Neuro non focal Skin pale psych appropriate affect Objective Data Active Medications Acetaminophen (Acetaminophen 325 Mg Tablet) 650 mg PO Q6H PRN PRN Reason: Pain, Mild (Pain Scale 1-3) Last Admin: 03/06/23 11:54 Dose: 650 mg Documented By: SOHA Albuterol Sulfate (Albuterol Sulfate 90 Mcg 8 Gm Inhaler) 2 puff INHALE Q4H PRN PRN Reason: Shortness Of Breath Albuterol Sulfate (Albuterol Sulfate (0.083%) 2.5 Mg/3 Ml Vial.Neb) 2.5 mg INHALE TID [facility] Last Admin: 03/06/23 07:44 Dose: 2.5 mg Documented By: JELANI Amlodipine Besylate (Amlodipine Besylate 10 Mg Tablet) 10 mg PO DAILY [facility]; Protocol Last Admin: 03/06/23 08:15 Dose: 10 mg Documented By: SOHA Dextrose (Dextrose 50 % 25 Gm/50 Ml Syringe) 25 gm IVPUSH Q15M PRN; Protocol PRN Reason: per Hypoglycemia Standing Ord. Docusate Sodium (Docusate Sodium 100 Mg Capsule) 100 mg PO BID [facility] Last Admin: 03/06/23 08:15 Dose: 100 mg Documented By: SOHA Enoxaparin Sodium (Enoxaparin Sodium 40 Mg/0.4 Ml Syringe) 40 mg SUBCUT Q24H [facility] Last Admin: 03/06/23 13:18 Dose: 40 mg Documented By: SOHA Escitalopram Oxalate (Escitalopram Oxalate 20 Mg Tablet) 20 mg PO DAILY [facility] Last Admin: 03/06/23 08:15 Dose: 20 mg Documented By: SOHA Famotidine (Famotidine 20 Mg Tablet) 40 mg PO BEDTIME [facility] Last Admin: 03/05/23 20:01 Dose: 40 mg Documented By: NAKIA Ferrous Sulfate (Ferrous Sulfate 324 Mg Tablet.Dr) 324 mg PO DAILY [facility] Last Admin: 03/06/23 08:15 Dose: 324 mg Documented By: SOHA Fluticasone Propionate (Fluticasone Propionate Nasal 16 Gm [place]) 2 spray NOSTRIL-B DAILY PRN PRN Reason: Allergy Symptoms Fluticasone Propionate (Fluticasone Propionate 100 Mcg Blst.W.Dev) 1 puff INHALE RBID [facility] Last Admin: 03/06/23 08:03 Dose: Not Given Documented By: JELANI Non-Admin Reason: Patient Refused Glucose (Glucose Gel 15 Gm Gel..Gram.) 15 gm PO Q15M PRN; Protocol PRN Reason: per Hypoglycemia Standing Ord. Hydromorphone HCl (Hydromorphone Hcl 0.5 Mg/0.5 Ml Syringe) 0.25 mg IVPUSH Q4H PRN; Protocol PRN Reason: Pain, Severe (Pain Scale 7-10) Last Admin: 03/06/23 05:42 Dose: 0.25 mg Documented By: NAKIA Insulin Human Lispro (Insulin Lispro 100 Unit/Ml 3 Ml Vial) 0 unit SUBCUT QIDACHS [facility]; Protocol Last Admin: 03/06/23 12:04 Dose: 2 unit Documented By: SOHA Lisinopril (Lisinopril 5 Mg Tablet) 5 mg PO DAILY [facility]; Protocol Last Admin: 03/06/23 08:15 Dose: 5 mg Documented By: SOHA Loratadine (Loratadine 10 Mg Tablet) 10 mg PO DAILY PRN PRN Reason: Allergy Symptoms Mirtazapine (Mirtazapine 30 Mg Tablet) 30 mg PO BEDTIME PRN PRN Reason: Sleep Omeprazole (Omeprazole 20 Mg Capsule.Dr) 20 mg PO DAILY@0630 [facility] Last Admin: 03/06/23 05:31 Dose: 20 mg Documented By: NAKIA Ondansetron HCl (Ondansetron Hcl 4 Mg/2 Ml Vial) 4 mg IVPUSH Q8H PRN PRN Reason: Nausea and Vomiting Last Admin: 03/05/23 04:30 Dose: 4 mg Documented By: MALKA Oxycodone HCl (Oxycodone Hcl Immed Release 5 Mg Tablet) 10 mg PO Q4H PRN PRN Reason: Pain, Moderate(Pain Scale 4-6) Last Admin: 03/06/23 11:53 Dose: 10 mg Documented By: SOHA Oxycodone HCl (Oxycodone Hcl Er 10 Mg Tab.Er.12h) 10 mg PO BID [facility] Last Admin: 03/06/23 08:15 Dose: 10 mg Documented By: SOHA Pravastatin Sodium (Pravastatin Sodium 40 Mg Tablet) 40 mg PO BEDTIME [facility] Last Admin: 03/05/23 20:01 Dose: 40 mg Documented By: NAKIA Sitagliptin Phosphate (Sitagliptin Phosphate 50 Mg Tablet) 50 mg PO DAILY [facility] Last Admin: 03/06/23 08:15 Dose: 50 mg Documented By: SOHA Sodium Chloride (0.9 % Sodium Chloride Flush 3 Ml Syringe) 3 ml IVFLUSH QSHIFT [facility] Last Admin: 03/06/23 09:16 Dose: Not Given Documented By: SOHA Non-Admin Reason: IV infusing Labs 03/06/23 05:50 03/06/23 05:50 Labs: Laboratory Results - last 24 hr 03/05/23 03/05/23 03/06/23 15:58 20:05 05:50 MCV 89.4 MCH 28.8 MCHC 32.2 RDW 14.0 Plt Count 211 MPV 9.2 L Immature Gran % (Auto) 0.7 H Neut % (Auto) 75.9 H Lymph % (Auto) 14.9 L [place] % (Auto) 7.9 Eos % (Auto) 0.5 Baso % (Auto) 0.1 Lymph # (Auto) 1.3 [place] # (Auto) 0.7 Eos # (Auto) 0.0 Baso # (Auto) 0.0 Abs Immat Gran (auto) 0.06 H Absolute Neuts (auto) 6.4 Absolute Nucleated RBC 0.000 Nucleated RBC % (auto) 0.0 Anion Gap 15 Estim Creat Clear Calc 49.5 Estimated GFR 34 POC Glucose 145 H 173 H Fasting Glucose 163 H Calcium 8.7 Blood Type Antibody Screen Crossmatch 03/06/23 03/06/23 03/06/23 07:13 09:34 11:15 MCV MCH MCHC RDW Plt Count MPV Immature Gran % (Auto) Neut % (Auto) Lymph % (Auto) [place] % (Auto) Eos % (Auto) Baso % (Auto) Lymph # (Auto) [place] # (Auto) Eos # (Auto) Baso # (Auto) Abs Immat Gran (auto) Absolute Neuts (auto) Absolute Nucleated RBC Nucleated RBC % (auto) Anion Gap Estim Creat Clear Calc Estimated GFR POC Glucose 135 H 159 H Fasting Glucose Calcium Blood Type O Positive Antibody Screen NEGATIVE Crossmatch See Detail Assessment and Plan (1) Status post total knee replacement, left: Status: Acute (2) Morbid obesity: Status: Acute (3) Anemia: Status: Acute Plan 58-year-old Northern Irish speaking female with PMH significant for HTN, HLD, chronic mild low proliferative disease, CKD 3, [id number] diabetes type 2, osteoarthritis, GERD, and BERNIE on CPAP who is admitted to the hospital under orthopedics for left TKA. POD1. Hospitalist consult for medical and diabetes management. Left TKA Good pain control continue pain management and anticoagulation as per Orthopedic Service Acute on chronic normocytic anemia Multifactorial with history of myelofibrosis/vitamin B12 deficiency/dilutional/surgery No GI bleed will transfuse 1 unit of packed RBC follow hematocrit recommend outpatient follow-up with Oncology, HTN stable blood pressure, Continue lisinopril, amlodipine [id number] diabetes type 2 Stable blood sugars, metformin on hold continue sliding scale insulin, Januvia and Diabetic diet HLD Continue statin CKD 3 Creatinine stable, at baseline COPD Not in acute exacerbation, Continue home inhalers Mood disorder Continue home meds BERNIE Continue CPAP at night GERD Continue famotidine, pantoprazole Morbid obesity low-calorie diet recommended. DVT prophylaxis on Lovenox Disposition as per Orthopedic surgery Quality Stroke Does the patient have a stroke diagnosis?: No VTE Prior VTE?: No VTE Risk Level:: Medical - moderate - high VTE Device Contraindication: N/A - Device Ordered VTE Drug Contraindication: N/A - Med Ordered
[2023-03-06 16:25] LABS: Glucose, Whole Blood 148 mg/dL (60-115)
[2023-03-06] MEDS: 0.9 % Sodium Chloride Flush 3 ML SYRINGE IVFLUSH ×2 (16:38→21:20)
[2023-03-06 20:21] LABS: Glucose, Whole Blood 137 mg/dL (60-115)
[2023-03-06] MEDS: Furosemide 100 MG/10 ML VIAL 60 MG IVPUSH (20:46)
[2023-03-06 20:47] LABS: ABG Base Excess -1.8 mmol/L; ABG HCO3 25 mmol/L (22-26); ABG pCO2 51 mmHg (32-45); ABG pH 7.28 (7.35-7.45); ABG pO2 70 mmHg (83-108)
[2023-03-06] MEDS: Pravastatin Sodium 40 MG TABLET PO (21:19)
[2023-03-06] MEDS: Famotidine 20 MG TABLET 40 MG PO (21:19)
[2023-03-06 21:25] LABS: Hematocrit 26.3 % (37.0-47.0); Hemoglobin 8.4 g/dl (12.0-16.0); Mean Corpuscular HGB Conc 31.9 g/dl (31.0-35.0); Mean Corpuscular Volume 90.7 fL (80.0-98.0); Mean Platelet Volume 9.1 fL (9.4-12.3); Platelet Count 174 X10*3/uL (160-400); Red Cell Distribution Width 14.3 % (11.0-16.0); White Blood Count 8.1 X10*3/uL (4.8-10.8)
[2023-03-06 21:44] LABS: Anion Gap 15 (12-20); Blood Urea Nitrogen 26 mg/dL (9-16); Calcium 8.8 mg/dL (8.4-10.2); Carbon Dioxide 25 mmol/L (22-29); Chloride 105 mmol/L (96-108); Creatinine Clr Calc Pharmacy 37.4; Estimated Glomerular Filt Rate 25; Glucose Random 171 mg/dL (60-115); Potassium 4.8 mmol/L (3.3-5.1); Sodium 140 mmol/L (135-145)
[2023-03-06 21:46] LABS: D Dimer High Sensitivity 1517 NG/ML
[2023-03-06 21:53] LABS: Troponin-I High Sensitivity 15.5 ng/L (<3.5-17.0)
--- NOTE | 2023-03-06 22:09 | PM.EVENT ---
Event Note Date of Service: 03/06/23 Event Note: called to see patient around 8pm, patient with tachypea, sob, accessory muscles. lungs were CTA without wheezing. given neb and empiric 60mg iv lasix. EKG was unremarkable, abg with mild resp acidosis (?chronic) and chronic metabolic acidosis, akilah on CKD III (creatining increased from 1.56 to 2.06. ddimer around 1500 (likely due to surgery, would hold off on CTA due to akilah, will order dopplers), CXR with rul opacity ? atelectasis vs infiltrate. requiring 4L 02. patient put on her chornic cpap for night with much improvement. acute hypoxic respiratory failure suspect combination of acute on chornic diastolic chf, RUL atelectasis s/p one dose lasix, continue cpap, incentive spirometry check doppler at 10pm patient now resting comfortably Time Spent With Patient Time: Total time managing care of this patient today ____ minutes.
[2023-03-06 22:11] LABS: ABG Refer to POC result
--- NOTE | 2023-03-06 22:44 | PC.NURSE ---
1929 02sat 80% on 2L increased 02 to 4L sat-92%. 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
[2023-03-06 22:50] LABS: ABG HCO3 27 mmol/L (22-26); ABG pCO2 54 mmHg (32-45); ABG pO2 135 mmHg (83-108)
[2023-03-06 22:58] LABS: Alanine Aminotransferase 11 U/L (0-31); Albumin Level 3.8 g/dL (3.5-5.0); Alkaline Phosphatase 58 U/L (39-117); Aspartate Amino Transferase 19 U/L (5-31); Bilirubin Direct 0.3 mg/dL (0.0-0.5); Total Protein 7.2 g/dL (6.5-8.0)
[2023-03-06 23:50] LABS: ABG Refer to POC result
[2023-03-07] VITALS (10 sets, daily range): BP systolic 109–135; BP diastolic 57–78; PULSE 83–98; RESP 18–20; TEMP 36.2–37; O2SAT 90–98
[2023-03-07] MEDS: Omeprazole 20 MG CAPSULE.DR PO (05:52)
[2023-03-07 06:02] LABS: MANUAL DIFF FLAG NO
[2023-03-07 06:15] LABS: Basophils Percent Auto 0.1 % (0-2); Eosinophils Absolute Auto 0.1 X10*3/uL (0.0-0.4); Hematocrit 23.6 % (37.0-47.0); Hemoglobin 7.6 g/dl (12.0-16.0); Imm Gran Abs Auto 0.12 X10*3/uL (0.00-0.03); Imm Gran Pct Auto 1.8 % (0.0-0.4); Lymphocytes Absolute Auto 1.2 X10*3/uL (1.2-4.9); Lymphocytes Percent Auto 17.4 % (20-40); Mean Corpuscular HGB Conc 32.2 g/dl (31.0-35.0); Mean Corpuscular Hemoglobin 29.3 pg (27.0-33.0); Mean Corpuscular Volume 91.1 fL (80.0-98.0); Mean Platelet Volume 9.5 fL (9.4-12.3); Monocytes Absolute Auto 0.5 X10*3/uL (0.1-1.2); Monocytes Percent Auto 7.5 % (2-11); Neutrophils Absolute Auto 4.9 x10*3/uL (2.0-8.3); Neutrophils Percent Auto 72.2 % (45-73); Platelet Count 177 X10*3/uL (160-400); Red Blood Count 2.59 X10*6/uL (4.20-5.50); Red Cell Distribution Width 14.3 % (11.0-16.0); White Blood Count 6.8 X10*3/uL (4.8-10.8)
[2023-03-07 06:19] LABS: Anion Gap 15 (12-20); Blood Urea Nitrogen 29 mg/dL (9-16); Calcium 8.4 mg/dL (8.4-10.2); Carbon Dioxide 23 mmol/L (22-29); Chloride 107 mmol/L (96-108); Creatinine Clr Calc Pharmacy 35.4; Estimated Glomerular Filt Rate 23; Glucose Fasting 137 mg/dL (60-99); Potassium 4.4 mmol/L (3.3-5.1); Sodium 141 mmol/L (135-145)
[2023-03-07] MEDS: SITagliptin Phosphate 50 MG TABLET PO (07:05)
[2023-03-07] MEDS: amLODIPine Besylate 10 MG TABLET PO (07:05)
[2023-03-07] MEDS: oxyCODONE HCl Immed Release 5 MG TABLET 10 MG PO ×2 (07:05→14:23)
[2023-03-07] MEDS: 0.9 % Sodium Chloride Flush 3 ML SYRINGE IVFLUSH ×2 (07:05→21:27)
[2023-03-07] MEDS: Escitalopram Oxalate 20 MG TABLET PO (07:05)
[2023-03-07] MEDS: lisinopriL 5 MG TABLET PO (07:06)
[2023-03-07] MEDS: oxyCODONE HCl ER 10 MG TAB.ER.12H PO ×2 (07:06→21:21)
[2023-03-07] MEDS: Ferrous Sulfate 324 MG TABLET.DR PO (07:06)
[2023-03-07] MEDS: Docusate Sodium 100 MG CAPSULE PO ×2 (07:07→21:21)
[2023-03-07 07:33] LABS: Glucose, Whole Blood 125 mg/dL (60-115)
--- NOTE | 2023-03-07 08:16 | PC.NURSE ---
At 0715 this morning pt on continuous CPAP and continous O2 monitoring O2 Sat decreased to 82. T/W went into room, pt easily arousable to name, no complaints of SOB. Pt seemed increasingly drowsy. Dr Polanco made aware and came to bedside to assess pt. VQ scan ordered. pt desatted again to low 80s. T/W went to reassess pt. Pt sleeping but easily arousable to name stating she feels fine and has no complaints of SOB. RT called to bedside. CPAP increased to 6L, O2 increased to 92-94. Dr Polanco made aware ABG ordered. RT aware.
[2023-03-07 08:31] LABS: ABG Base Excess 1.1 mmol/L; ABG HCO3 27 mmol/L (22-26); ABG pCO2 53 mmHg (32-45); ABG pH 7.32 (7.35-7.45); ABG pO2 48 mmHg (83-108)
--- NOTE | 2023-03-07 08:37 | P.PNOP_ITS ---
Subjective Subjective Date of Service: 03/07/23 Interval history: POD 3 s/p LT TKA No overnight events patients Oxygen level has been dropping when off bipap/cpap/NC denies sob, cp, palpitations or dizziness Physical Exam Vital Signs: Vital Signs: Last Vital Signs Temp 97.2 F 03/07/23 07:11 Pulse 85 03/07/23 07:11 Resp 18 03/07/23 07:11 BP 117/67 03/07/23 07:11 Pulse Ox 91 L 03/07/23 07:11 O2 Del Method CPAP 03/07/23 07:11 O2 Flow Rate 2 03/07/23 03:32 BMI result Body Mass Index 38.7 Const: General: cooperative, healthy appearing and no acute distress Resp: Effort & Inspection: normal respiratory effort and able to speak in c omplete sentences Cardio: Rate: regular rate Peripheral pulses: Peripheral pulses 2+ throughout GI: Palpation (GI): Soft to palpation Skin: General skin exam: no rashes or lesions noted Lesions: no lesions Rashes: no rashes Extrem: Other: left knee dressing is c/d/i. Lew intact. dRessing changed at bedside. Able to dorsi/plantar flex. Calf is supple and nontender. Sensation intact. Pedal pulse intact. Procedures Date of Service Date of Service: 03/07/23 Progress Note: A&P Assessment and plan (1) Status post total knee replacement, left: Status: Acute Assessment and Plan: Continue pain mgmnt Per medicine Hold lovenox -pending VQ scan Continue PT for LTKA Dispo-pending medical clearance and rehab placement Need for continued inpatient stay: uncontrolled pain, low h/h, desating Oxygen levels requiring further workup Time Spent With Patient Time: Total time managing care of this patient today ____ minutes. Quality Stroke Does the patient have a stroke diagnosis?: No VTE Prior VTE?: No VTE Risk Level:: Medical - moderate - high VTE Device Contraindication: N/A - Device Ordered VTE Drug Contraindication: N/A - Med Ordered
--- NOTE | 2023-03-07 08:37 | PC.RT ---
pt was found with cpap on but machine was not on. pt just ate and taken off and placed on 8 liter oxymask. [facility] Dr. Polanco and monitoring with the possiblility of HFNC.
--- NOTE | 2023-03-07 09:22 | PC.RT ---
Rt called to bedside this am, pt noted on cpap with 2 lpm O2 titrated in with O2 spo2 83%, O2 inc to 6lpm with result of 94%. RT meets with Dr. Polanco, abg ordered with results paO2 of 48, pt placed on 8 lpm oxymask withy spo2 98% at this time. HFNC per Dr. Polanco post nuclear med scan and pt to [facility].
[2023-03-07] MEDS: Enoxaparin Sodium 100 MG/ML SYRINGE SUBCUT (09:56)
[2023-03-07 11:14] LABS: Glucose, Whole Blood 130 mg/dL (60-115)
[2023-03-07] MEDS: Furosemide 40 MG/4 ML VIAL IVPUSH (12:27)
[2023-03-07 13:22] LABS: Hematocrit 24.6 % (37.0-47.0); Hemoglobin 7.9 g/dl (12.0-16.0); Mean Corpuscular HGB Conc 32.1 g/dl (31.0-35.0); Mean Corpuscular Volume 90.4 fL (80.0-98.0); Mean Platelet Volume 8.9 fL (9.4-12.3); NRBC Pct Auto 0.3 /100WBC (0.0-0.2); Platelet Count 177 X10*3/uL (160-400); Red Blood Count 2.72 X10*6/uL (4.20-5.50); Red Cell Distribution Width 14.4 % (11.0-16.0)
[2023-03-07 13:32] LABS: INTERNATIONAL NORM RATIO 1.2 (0.9-1.1)
[2023-03-07 13:34] LABS: Partial Thromboplastin Time 35.9 SEC (26.0-36.4)
[2023-03-07] MEDS: Enoxaparin Sodium 40 MG/0.4 ML SYRINGE SUBCUT (14:22)
[2023-03-07] MEDS: Acetaminophen 325 MG TABLET 650 MG PO (14:22)
--- NOTE | 2023-03-07 14:45 | HO.PM.IMPN ---
Subjective Subjective Date of Service: 03/07/23 Interval History: Still hypoxic despite high-flow O2. V/Q scan equivocal Review of Systems Denies chest pain Denies shortness of breath Denies nausea vomiting diarrhea Denies fever chills Physical Exam Vital Signs: Vital Signs: Last Vital Signs Temp 98.4 F 03/07/23 11:57 Pulse 83 03/07/23 14:07 Resp 18 03/07/23 11:57 BP 131/72 03/07/23 14:07 Pulse Ox 93 03/07/23 14:07 O2 Del Method High Flow Nasal C annula 03/07/23 11:57 O2 Flow Rate 50 03/07/23 11:57 FiO2 33 03/07/23 11:57 BMI result Body Mass Index 38.7 Const: Other: Awake alert no acute distress lying comfortably with high-flow Resp: Other: Clear to auscultation bilaterally no rales rhonchi or wheezes Cardio: Other: No S4; positive S1-S2; no S3 murmurs rubs or gallops GI: Other: Soft nontender nondistended normoactive bowel sounds Extrem: Other: No edema bilaterally Objective Data Active Medications Acetaminophen (Acetaminophen 325 Mg Tablet) 650 mg PO Q6H PRN PRN Reason: Pain, Mild (Pain Scale 1-3) Last Admin: 03/07/23 14:22 Dose: 650 mg Documented By: CARLOTTA Albuterol Sulfate (Albuterol Sulfate 90 Mcg 8 Gm Inhaler) 2 puff INHALE Q4H PRN PRN Reason: Shortness Of Breath Albuterol Sulfate (Albuterol Sulfate (0.083%) 2.5 Mg/3 Ml Vial.Neb) 2.5 mg INHALE TID [facility] Last Admin: 03/07/23 08:39 Dose: Not Given Documented By: GENNY Non-Admin Reason: Patient Refused Amlodipine Besylate (Amlodipine Besylate 10 Mg Tablet) 10 mg PO DAILY [facility]; Protocol Last Admin: 03/07/23 07:05 Dose: 10 mg Documented By: DAISY Dextrose (Dextrose 50 % 25 Gm/50 Ml Syringe) 25 gm IVPUSH Q15M PRN; Protocol PRN Reason: per Hypoglycemia Standing Ord. Docusate Sodium (Docusate Sodium 100 Mg Capsule) 100 mg PO BID [facility] Last Admin: 03/07/23 07:07 Dose: 100 mg Documented By: DAISY Enoxaparin Sodium (Enoxaparin Sodium 40 Mg/0.4 Ml Syringe) 40 mg SUBCUT Q24H [facility] Last Admin: 03/07/23 14:22 Dose: 40 mg Documented By: CARLOTTA Escitalopram Oxalate (Escitalopram Oxalate 20 Mg Tablet) 20 mg PO DAILY [facility] Last Admin: 03/07/23 07:05 Dose: 20 mg Documented By: DAISY Famotidine (Famotidine 20 Mg Tablet) 40 mg PO BEDTIME [facility] Last Admin: 03/06/23 21:19 Dose: 40 mg Documented By: NAKIA Ferrous Sulfate (Ferrous Sulfate 324 Mg Tablet.) 324 mg PO DAILY [facility] Last Admin: 03/07/23 07:06 Dose: 324 mg Documented By: DAISY Fluticasone Propionate (Fluticasone Propionate Nasal 16 Gm [place]) 2 spray NOSTRIL-B DAILY PRN PRN Reason: Allergy Symptoms Fluticasone Propionate (Fluticasone Propionate 100 Mcg Blst.W.Dev) 1 puff INHALE RBID [facility] Last Admin: 03/07/23 08:39 Dose: Not Given Documented By: GENNY Non-Admin Reason: Patient Refused Glucose (Glucose Gel 15 Gm Gel..Gram.) 15 gm PO Q15M PRN; Protocol PRN Reason: per Hypoglycemia Standing Ord. Hydromorphone HCl (Hydromorphone Hcl 0.5 Mg/0.5 Ml Syringe) 0.25 mg IVPUSH Q4H PRN; Protocol PRN Reason: Pain, Severe (Pain Scale 7-10) Last Admin: 03/06/23 05:42 Dose: 0.25 mg Documented By: NAKIA Insulin Human Lispro (Insulin Lispro 100 Unit/Ml 3 Ml Vial) 0 unit SUBCUT QIDACHS [facility]; Protocol Last Admin: 03/07/23 11:33 Dose: Not Given Documented By: CARLOTTA Non-Admin Reason: See Note Loratadine (Loratadine 10 Mg Tablet) 10 mg PO DAILY PRN PRN Reason: Allergy Symptoms Mirtazapine (Mirtazapine 30 Mg Tablet) 30 mg PO BEDTIME PRN PRN Reason: Sleep Omeprazole (Omeprazole 20 Mg Capsule.) 20 mg PO DAILY@0630 [facility] Last Admin: 03/07/23 05:52 Dose: 20 mg Documented By: NAKIA Ondansetron HCl (Ondansetron Hcl 4 Mg/2 Ml Vial) 4 mg IVPUSH Q8H PRN PRN Reason: Nausea and Vomiting Last Admin: 03/05/23 04:30 Dose: 4 mg Documented By: MALKA Oxycodone HCl (Oxycodone Hcl Immed Release 5 Mg Tablet) 10 mg PO Q4H PRN PRN Reason: Pain, Moderate(Pain Scale 4-6) Last Admin: 03/07/23 14:23 Dose: 10 mg Documented By: CARLOTTA Oxycodone HCl (Oxycodone Hcl Er 10 Mg Tab.Er.12h) 10 mg PO BID [facility] Last Admin: 03/07/23 07:06 Dose: 10 mg Documented By: DAISY Pravastatin Sodium (Pravastatin Sodium 40 Mg Tablet) 40 mg PO BEDTIME [facility] Last Admin: 03/06/23 21:19 Dose: 40 mg Documented By: NAKIA Sitagliptin Phosphate (Sitagliptin Phosphate 50 Mg Tablet) 50 mg PO DAILY [facility] Last Admin: 03/07/23 07:05 Dose: 50 mg Documented By: DAISY Sodium Chloride (0.9 % Sodium Chloride Flush 3 Ml Syringe) 3 ml IVFLUSH QSHIFT [facility] Last Admin: 03/07/23 11:36 Dose: Not Given Documented By: CARLOTTA Non-Admin Reason: See Note Sodium Chloride (0.9 % Sodium Chloride Flush 3 Ml Syringe) 3 ml IVFLUSH QSHIFT [facility] Last Admin: 03/07/23 11:36 Dose: Not Given Documented By: CARLOTTA Non-Admin Reason: See Note Labs 03/07/23 13:15 03/07/23 05:50 Labs: Laboratory Results - last 24 hr 03/06/23 03/06/23 03/06/23 09:34 16:19 20:15 MCV MCH MCHC RDW Plt Count MPV Immature Gran % (Auto) Neut % (Auto) Lymph % (Auto) Wilson % (Auto) Eos % (Auto) Baso % (Auto) Lymph # (Auto) Wilson # (Auto) Eos # (Auto) Baso # (Auto) Abs Immat Gran (auto) Absolute Neuts (auto) Absolute Nucleated RBC Nucleated RBC % (auto) PT INR APTT D-Dimer High Sensitivty O2 Saturation ABG pH at Pt Temp ABG pCO2 at Pt Temp ABG pO2 at Pt Temp ABG HCO3 ABG Base Excess (Actual) Anion Gap Estim Creat Clear Calc Estimated GFR POC Glucose 148 H 137 H Random Glucose Fasting Glucose Calcium Total Bilirubin Direct Bilirubin AST ALT Alkaline Phosphatase Total Protein Albumin Crossmatch See Detail 03/06/23 03/06/23 03/06/23 20:42 21:18 21:19 MCV 90.7 MCH 29.0 MCHC 31.9 RDW 14.3 Plt Count 174 MPV 9.1 L Immature Gran % (Auto) Neut % (Auto) Lymph % (Auto) Wilson % (Auto) Eos % (Auto) Baso % (Auto) Lymph # (Auto) Wilson # (Auto) Eos # (Auto) Baso # (Auto) Abs Immat Gran (auto) Absolute Neuts (auto) Absolute Nucleated RBC 0.000 Nucleated RBC % (auto) 0.0 PT INR APTT D-Dimer High Sensitivty 1517 O2 Saturation 94.0 ABG pH at Pt Temp 7.28 L ABG pCO2 at Pt Temp 51 H ABG pO2 at Pt Temp 70 L ABG HCO3 25 ABG Base Excess (Actual) -1.8 Anion Gap 15 Estim Creat Clear Calc 37.4 Estimated GFR 25 POC Glucose Random Glucose 171 H Fasting Glucose Calcium 8.8 Total Bilirubin 1.0 Direct Bilirubin 0.3 AST 19 ALT 11 Alkaline Phosphatase 58 Total Protein 7.2 Albumin 3.8 Crossmatch 03/06/23 03/07/23 03/07/23 22:45 05:50 07:14 MCV 91.1 MCH 29.3 MCHC 32.2 RDW 14.3 Plt Count 177 MPV 9.5 Immature Gran % (Auto) 1.8 H Neut % (Auto) 72.2 Lymph % (Auto) 17.4 L Wilson % (Auto) 7.5 Eos % (Auto) 1.0 Baso % (Auto) 0.1 Lymph # (Auto) 1.2 Wilson # (Auto) 0.5 Eos # (Auto) 0.1 Baso # (Auto) 0.0 Abs Immat Gran (auto) 0.12 H Absolute Neuts (auto) 4.9 Absolute Nucleated RBC 0.000 Nucleated RBC % (auto) 0.0 PT INR APTT D-Dimer High Sensitivty O2 Saturation 99.0 ABG pH at Pt Temp 7.30 L ABG pCO2 at Pt Temp 54 H ABG pO2 at Pt Temp 135 H ABG HCO3 27 H ABG Base Excess (Actual) 0.0 Anion Gap 15 Estim Creat Clear Calc 35.4 Estimated GFR 23 POC Glucose 125 H Random Glucose Fasting Glucose 137 H Calcium 8.4 Total Bilirubin Direct Bilirubin AST ALT Alkaline Phosphatase Total Protein Albumin Crossmatch 03/07/23 03/07/23 03/07/23 08:11 11: 13:15 MCV 90.4 MCH 29.0 MCHC 32.1 RDW 14.4 Plt Count 177 MPV 8.9 L Immature Gran % (Auto) Neut % (Auto) Lymph % (Auto) Wilson % (Auto) Eos % (Auto) Baso % (Auto) Lymph # (Auto) Wilson # (Auto) Eos # (Auto) Baso # (Auto) Abs Immat Gran (auto) Absolute Neuts (auto) Absolute Nucleated RBC 0.020 H Nucleated RBC % (auto) 0.3 H PT 14.0 H INR 1.2 H APTT 35.9 D-Dimer High Sensitivty O2 Saturation 78.0 ABG pH at Pt Temp 7.32 L ABG pCO2 at Pt Temp 53 H ABG pO2 at Pt Temp 48 L* ABG HCO3 27 H ABG Base Excess (Actual) 1.1 Anion Gap Estim Creat Clear Calc Estimated GFR POC Glucose 130 H Random Glucose Fasting Glucose Calcium Total Bilirubin Direct Bilirubin AST ALT Alkaline Phosphatase Total Protein Albumin Crossmatch Assessment and Plan (1) Acute hypoxic respiratory failure: Status: Acute (2) CKD stage 3 due to type 2 diabetes mellitus: Status: Acute (3) Diabetic neuropathy associated with type 2 diabetes mellitus: Status: Acute (4) Status post total knee replacement, left: Status: Acute Plan 58-year-old [place] speaking female with PMH significant for HTN, HLD, chronic mild low proliferative disease, CKD 3, [id number] diabetes type 2, osteoarthritis, GERD, and BERNIE on CPAP who is admitted to the hospital under orthopedics for left TKA. Significant desaturation requiring high-flow O2. V/Q questionable. 1.Left TKA -as per Ortho 2. Acute hypoxic respiratory failure -continue high-flow -no response to diuresis -will check CTA to rule out PE... One dose full anticoagulant given 3.Acute on chronic normocytic anemia -Hgb stable 4.HTN -hold lisinopril pending CT -add back when clinically appropriate 5.[id number] diabetes type 2 -metformin held ... continue same -lispro correctional scale 6.CKD 3 -Hold ACEI -Volume after scan -follow renals/divalents 7.BERNIE -Continue CPAP at night Lovenox Full code Requires ongoing hospitalization for high-flow oxygen pending workup of hypoxic respiratory failure Quality Stroke Does the patient have a stroke diagnosis?: No VTE Prior VTE?: No VTE Risk Level:: Medical - moderate - high VTE Device Contraindication: N/A - Device Ordered VTE Drug Contraindication: N/A - Med Ordered
--- NOTE | 2023-03-07 15:57 | P.CONPL_ITS ---
History of Present Illness History of Present Illness Consult date: 03/07/23 Chief complaint: Hypoxemia Narrative: 58-year-old lady with underlying history of obesity, obstructive sleep apnea currently not on CPAP therapy, CKD stage 3, myelofibrosis, now status post elective left total knee replacement with postprocedure course complicated by hypoxemia. Patient also also noted to be significantly volume positive after the procedure. She has been started on diuretic with some improvement, but not complete resolution of her hypoxemia. Her DVT study was negative for lower extremity DVTs. She was started on empiric anticoagulation. Review of Systems 2 Constitutional: Constitutional: Denies daytime sleepiness, Denies excessive sweating, Denies fatigue, Denies fever(s), Denies lethargy, Denies malaise, Denies night sweats, Denies snoring and Denies weight loss Eyes: Eyes: Denies blurry vision and Denies itchy eyes ENT: Denies nasal congestion, Denies post nasal drip, Denies sinus pain, Denies sinus pressure and Denies other ( Thrush) Cardiovascular: Cardiovascular: Denies chest pain, Denies pedal edema, Denies dyspnea, Denies orthopnea and Denies paroxysmal nocturnal dyspnea Respiratory: Respiratory: Denies cough, Denies hemoptysis, Denies excessive phlegm production, Denies dyspnea, Denies snoring and Denies wheezing Gastrointestinal: Gastrointestinal: Denies abdominal pain and Denies heartburn Musculoskeletal: Musculoskeletal: Denies myalgias, Denies arthralgias and Denies joint swelling Integumentary/Breasts: Skin/Breast: Denies rash Neurologic: Denies memory loss and Denies seizure-like activity Psychiatric: Psychiatric: Denies abnormal sleep pattern, Denies anxiety and Denies memory loss Endocrine: Endocrine: Denies excessive sweating, Denies fatigue and Denies heat intolerance Hematologic/Lymphatic: Hematologic/Lymphatic: Denies easy bruising Allergic/Immunologic: Allergic/Immunologic: Denies itchy eyes, Denies seasonal rhinorrhea and Denies wheezing PMFSH Past Medical History Medical History Hx of radiation therapy Hx of transfusion of packed red blood cells COVID-19 vaccine series completed Osteoarthritis of wrist Obesity due to excess calories Osteoarthritis of knees, bilateral Hiatal hernia History of myelofibrosis History of depression Anemia BERNIE (obstructive sleep apnea) Biliary dyskinesia CKD stage 3 due to type 2 diabetes mellitus Chronic myeloproliferative disease History of gastritis GERD (gastroesophageal reflux disease) Diabetic neuropathy associated with type 2 diabetes mellitus Diabetic nephropathy Morbid obesity due to excess calories Hypertension Diabetes type 2, controlled Asthma Vitamin B12 deficiency Dyslipidemia Family History Family History Father Heart problem HTN (hypertension) Mother Diabetes Family/Other Diabetes HTN (hypertension) Heart problem Sister Cancer Surgical History Surgical History Bone marrow replaced by transplant History of resection of meningioma H/O stem cell transplant Hx of colonoscopy Hx of breast reduction, elective Hx of esophagogastroduodenoscopy History of partial hysterectomy Social History Social History Household Members: None Housing: Apartment Are you a primary rn urgent care to a significant other at home: No Do you presently have visiting nurse or other home services: No Alcohol intake: never Patient Tobacco Use Status: Never used Tobacco Use of substances other than those prescribed or required for medical reasons: No Currently Displaying Signs/Symptoms of Drug Intoxication Withdrawal: No Have you been hit, kicked, punched, or otherwise hurt by someone within the past year? If so, by whom?: No Do you feel safe in your current relationship?: No Current Relationship Is there a partner from a previous relationship who is making you feel unsafe now?: No Are you made to feel afraid or neglected: No Advance Directives: No Advance Directives Information Provided: Yes Advance Directives on File: No Advance Directives Date on File: 03/24/16 Do you have thoughts of harming others: None Do you have a plan to hurt others: No Plan Recently lost weight without trying: No How much weight loss: 14-23 pounds Eating poorly because of decreased appetite: No Nutrition screen score: 2 Nutrition Risks: No Nutritional Risk Patient : No : No Poor oral hygiene: No service: No Current occupational status: disabled Meds Allergies Allergy/AdvReac Type Severity Reaction Status Date / Time aspirin [ASPIRIN] Allergy Intermediate SWELLING/ITCHING, Verified 02/27/23 12:56 rash Penicillins Allergy Intermediate ITCHING Verified 02/27/23 12:56 vancomycin [VANCOMYCIN] AdvReac Intermediate RED MAN Verified 02/27/23 12:56 SYNDROME PER MD Active Medications: Current Medications Acetaminophen (Acetaminophen 325 Mg Tablet) 650 mg PO Q6H PRN PRN Reason: Pain, Mild (Pain Scale 1-3) Last Admin: 03/07/23 14:22 Dose: 650 mg Albuterol Sulfate (Albuterol Sulfate 90 Mcg 8 Gm Inhaler) 2 puff INHALE Q4H PRN PRN Reason: Shortness Of Breath Albuterol Sulfate (Albuterol Sulfate (0.083%) 2.5 Mg/3 Ml Vial.Neb) 2.5 mg INHALE TID [facility] Last Admin: 03/07/23 08:39 Dose: Not Given Amlodipine Besylate (Amlodipine Besylate 10 Mg Tablet) 10 mg PO DAILY [facility]; Protocol Last Admin: 03/07/23 07:05 Dose: 10 mg Dextrose (Dextrose 50 % 25 Gm/50 Ml Syringe) 25 gm IVPUSH Q15M PRN; Protocol PRN Reason: per Hypoglycemia Standing Ord. Docusate Sodium (Docusate Sodium 100 Mg Capsule) 100 mg PO BID [facility] Last Admin: 03/07/23 07:07 Dose: 100 mg Enoxaparin Sodium (Enoxaparin Sodium 40 Mg/0.4 Ml Syringe) 40 mg SUBCUT Q24H [facility] Last Admin: 03/07/23 14:22 Dose: 40 mg Escitalopram Oxalate (Escitalopram Oxalate 20 Mg Tablet) 20 mg PO DAILY [facility] Last Admin: 03/07/23 07:05 Dose: 20 mg Famotidine (Famotidine 20 Mg Tablet) 40 mg PO BEDTIME [facility] Last Admin: 03/06/23 21:19 Dose: 40 mg Ferrous Sulfate (Ferrous Sulfate 324 Mg Tablet.Dr) 324 mg PO DAILY [facility] Last Admin: 03/07/23 07:06 Dose: 324 mg Fluticasone Propionate (Fluticasone Propionate Nasal 16 Gm [place]) 2 spray NOSTRIL-B DAILY PRN PRN Reason: Allergy Symptoms Fluticasone Propionate (Fluticasone Propionate 100 Mcg Blst.W.Dev) 1 puff INHALE RBID [facility] Last Admin: 03/07/23 08:39 Dose: Not Given Glucose (Glucose Gel 15 Gm Gel..Gram.) 15 gm PO Q15M PRN; Protocol PRN Reason: per Hypoglycemia Standing Ord. Hydromorphone HCl (Hydromorphone Hcl 0.5 Mg/0.5 Ml Syringe) 0.25 mg IVPUSH Q4H PRN; Protocol PRN Reason: Pain, Severe (Pain Scale 7-10) Last Admin: 03/06/23 05:42 Dose: 0.25 mg Insulin Human Lispro (Insulin Lispro 100 Unit/Ml 3 Ml Vial) 0 unit SUBCUT QIDACHS [facility]; Protocol Last Admin: 03/07/23 11:33 Dose: Not Given Loratadine (Loratadine 10 Mg Tablet) 10 mg PO DAILY PRN PRN Reason: Allergy Symptoms Mirtazapine (Mirtazapine 30 Mg Tablet) 30 mg PO BEDTIME PRN PRN Reason: Sleep Omeprazole (Omeprazole 20 Mg Capsule.Dr) 20 mg PO DAILY@0630 [facility] Last Admin: 03/07/23 05:52 Dose: 20 mg Ondansetron HCl (Ondansetron Hcl 4 Mg/2 Ml Vial) 4 mg IVPUSH Q8H PRN PRN Reason: Nausea and Vomiting Last Admin: 03/05/23 04:30 Dose: 4 mg Oxycodone HCl (Oxycodone Hcl Immed Release 5 Mg Tablet) 10 mg PO Q4H PRN PRN Reason: Pain, Moderate(Pain Scale 4-6) Last Admin: 03/07/23 14:23 Dose: 10 mg Oxycodone HCl (Oxycodone Hcl Er 10 Mg Tab.Er.12h) 10 mg PO BID [facility] Last Admin: 03/07/23 07:06 Dose: 10 mg Pravastatin Sodium (Pravastatin Sodium 40 Mg Tablet) 40 mg PO BEDTIME [facility] Last Admin: 03/06/23 21:19 Dose: 40 mg Sitagliptin Phosphate (Sitagliptin Phosphate 50 Mg Tablet) 50 mg PO DAILY [facility] Last Admin: 03/07/23 07:05 Dose: 50 mg Sodium Chloride (0.9 % Sodium Chloride Flush 3 Ml Syringe) 3 ml IVFLUSH [facility] Last Admin: 03/07/23 11:36 Dose: Not Given Sodium Chloride (0.9 % Sodium Chloride Flush 3 Ml Syringe) 3 ml IVFLUSH [facility] Last Admin: 03/07/23 11:36 Dose: Not Given Home Medications Medication Instructions Recorded Confirmed Last Taken Type citalopram 40 mg tablet 40 mg PO DAILY 02/15/20 02/27/23 03/04/23 History cholecalciferol (vitamin D3) 25 25 mcg PO DAILY 02/16/20 02/27/23 02/27/23 History mcg (1,000 unit) capsule acetaminophen 500 mg tablet 1,000 mg PO TID PRN Pain (Scale 07/10/20 02/27/23 02/26/23 History (Tylenol Extra Strength) Score 4-6) tramadol 50 mg tablet 50 mg PO QID PRN Pain (Scale Score 07/10/20 02/27/23 02/24/23 History 1-3) mirtazapine 15 mg tablet 30 mg PO BEDTIME PRN Sleep 11/28/20 02/27/23 03/03/23 History albuterol sulfate 2.5 mg/3 mL 2.5 mg inhalation TID 10/07/21 02/27/23 02/26/23 History (0.083 %) solution for nebulization albuterol sulfate 90 mcg/actuation 2 puff inhalation Q4-6H PRN 10/07/21 02/27/23 02/26/23 History aerosol inhaler (ProAir HFA) Shortness Of Breath diclofenac sodium 1 % topical gel 2 g topical BID 10/07/21 02/27/23 02/27/23 History fluticasone propionate 50 2 spray intranasal DAILY PRN 10/07/21 02/27/23 03/03/23 History mcg/actuation nasal Allergy Symptoms spray,suspension lidocaine 5 % topical patch 1 patch topical DAILY 10/07/21 02/27/23 02/26/23 History (Lidoderm) loratadine 10 mg tablet 10 mg PO DAILY PRN Allergy Symptoms 10/07/21 02/27/23 03/03/23 History ruxolitinib 5 mg tablet (Jakafi) 5 mg PO BID 10/07/21 02/27/23 03/04/23 History amlodipine 5 mg tablet (Norvasc) 10 mg PO DAILY 02/18/23 02/27/23 03/04/23 History cyanocobalamin (vitamin B-12) 1,000 mcg IM QMONTH 02/18/23 02/27/23 02/27/23 History 1,000 mcg/mL injection solution fluticasone propionate 110 1 puff inhalation Q12H 02/18/23 02/27/23 03/03/23 History mcg/actuation HFA aerosol inhaler (Flovent HFA) lisinopril 5 mg tablet 5 mg PO DAILY 02/18/23 02/27/23 03/03/23 History pravastatin 40 mg tablet 40 mg PO BEDTIME 02/18/23 02/27/23 03/03/23 History Physical Exam 2 Vital Signs: Vital Signs: Last Vital Signs Temp 98.2 F 03/07/23 15:13 Pulse 87 03/07/23 15:13 Resp 18 03/07/23 15:13 BP 135/65 03/07/23 15:13 Pulse Ox 95 03/07/23 15:13 O2 Del Method High Flow Nasal C annula 03/07/23 15:13 O2 Flow Rate 50 03/07/23 15:13 FiO2 35 03/07/23 15:13 BMI result Body Mass Index 38.7 Const: General: no acute distress and alert Nutritional Appearance: obese Orientation/consciousness: Other orientation findings ( oriented) HEENT: Head: Yes atraumatic Eyes: General: appearance normal, both eyes and all related structures S clerae: sclerae normal EOM: EOMs intact bilaterally Neck: Neck: Yes supple Lymphatic: no lymphadenopathy noted Resp: Effort & Inspection: normal respiratory effort and no use of accessory muscles Auscultation: crackles (Bilateral) Cardio: Rate: regular rate Rhythm: regular rhythm Heart sounds: no gallops, no murmurs and no rubs Skin: General skin exam: other ( warm) Extrem: Other: Left knee with surgical dressing General: No clubbing, No cyanosis and Yes edema (1+ bilateral) Results Laboratory Findings 03/07/23 13:15 03/07/23 05:50 ABG, PT/INR, D-dimer: PT/INR, D-dimer PT 14.0 SEC (11.1-13.3) H 03/07/23 13:15 INR 1.2 (0.9-1.1) H 03/07/23 13:15 Abnormal lab findings: Abnormal Labs 02/18/23 02/18/23 03/04/23 12:30 13:15 08:25 RBC 3.38 L Hgb 9.7 L Hct 29.3 L MPV 9.3 L Immature Gran % (Auto) Neut % (Auto) Lymph % (Auto) Lymph # (Auto) Abs Immat Gran (auto) Absolute Nucleated RBC Nucleated RBC % (auto) PT INR ABG pH at Pt Temp ABG pCO2 at Pt Temp ABG pO2 at Pt Temp ABG HCO3 Carbon Dioxide 20 L BUN 23 H Creatinine 1.62 H POC Glucose 126 H Random Glucose Fasting Glucose Nasal S. aureus Screen POSITIVE A Crossmatch 03/04/23 03/04/23 03/04/23 08:55 20:05 23:15 RBC Hgb 9.1 L Hct 27.2 L MPV Immature Gran % (Auto) Neut % (Auto) Lymph % (Auto) Lymph # (Auto) Abs Immat Gran (auto) Absolute Nucleated RBC Nucleated RBC % (auto) PT INR ABG pH at Pt Temp ABG pCO2 at Pt Temp ABG pO2 at Pt Temp ABG HCO3 Carbon Dioxide BUN Creatinine 1.61 H POC Glucose 168 H Random Glucose Fasting Glucose Nasal S. aureus Screen Crossmatch 03/05/23 03/05/23 03/05/23 05:57 07:32 09:29 RBC 2.77 L Hgb 8.0 L Hct 24.6 L MPV 9.2 L Immature Gran % (Auto) 0.7 H Neut % (Auto) 74.0 H Lymph % (Auto) 15.5 L Lymph # (Auto) 1.1 L Abs Immat Gran (auto) 0.05 H Absolute Nucleated RBC Nucleated RBC % (auto) PT INR ABG pH at Pt Temp ABG pCO2 at Pt Temp ABG pO2 at Pt Temp ABG HCO3 Carbon Dioxide 20 L BUN 22 H Creatinine 1.46 H POC Glucose 144 H 179 H Random Glucose Fasting Glucose 152 H Nasal S. aureus Screen Crossmatch 03/05/23 03/05/23 03/05/23 11:01 15:58 20:05 RBC Hgb Hct MPV Immature Gran % (Auto) Neut % (Auto) Lymph % (Auto) Lymph # (Auto) Abs Immat Gran (auto) Absolute Nucleated RBC Nucleated RBC % (auto) PT INR ABG pH at Pt Temp ABG pCO2 at Pt Temp ABG pO2 at Pt Temp ABG HCO3 Carbon Dioxide BUN Creatinine POC Glucose 182 H 145 H 173 H Random Glucose Fasting Glucose Nasal S. aureus Screen Crossmatch 03/06/23 03/06/23 03/06/23 05:50 07:13 09:34 RBC 2.64 L Hgb 7.6 L Hct 23.6 L MPV 9.2 L Immature Gran % (Auto) 0.7 H Neut % (Auto) 75.9 H Lymph % (Auto) 14.9 L Lymph # (Auto) Abs Immat Gran (auto) 0.06 H Absolute Nucleated RBC Nucleated RBC % (auto) PT INR ABG pH at Pt Temp ABG pCO2 at Pt Temp ABG pO2 at Pt Temp ABG HCO3 Carbon Dioxide BUN 19 H Creatinine 1.56 H POC Glucose 135 H Random Glucose Fasting Glucose 163 H Nasal S. aureus Screen Crossmatch See Detail 03/06/23 03/06/23 03/06/23 11:15 16:19 20:15 RBC Hgb Hct MPV Immature Gran % (Auto) Neut % (Auto) Lymph % (Auto) Lymph # (Auto) Abs Immat Gran (auto) Absolute Nucleated RBC Nucleated RBC % (auto) PT INR ABG pH at Pt Temp ABG pCO2 at Pt Temp ABG pO2 at Pt Temp ABG HCO3 Carbon Dioxide BUN Creatinine POC Glucose 159 H 148 H 137 H Random Glucose Fasting Glucose Nasal S. aureus Screen Crossmatch 03/06/23 03/06/23 03/06/23 20:42 21:18 21:19 RBC 2.90 L Hgb 8.4 L Hct 26.3 L MPV 9.1 L Immature Gran % (Auto) Neut % (Auto) Lymph % (Auto) Lymph # (Auto) Abs Immat Gran (auto) Absolute Nucleated RBC Nucleated RBC % (auto) PT INR ABG pH at Pt Temp 7.28 L ABG pCO2 at Pt Temp 51 H ABG pO2 at Pt Temp 70 L ABG HCO3 Carbon Dioxide BUN 26 H Creatinine 2.06 H POC Glucose Random Glucose 171 H Fasting Glucose Nasal S. aureus Screen Crossmatch 03/06/23 03/07/23 03/07/23 22:45 05:50 07:14 RBC 2.59 L Hgb 7.6 L Hct 23.6 L MPV Immature Gran % (Auto) 1.8 H Neut % (Auto) Lymph % (Auto) 17.4 L Lymph # (Auto) Abs Immat Gran (auto) 0.12 H Absolute Nucleated RBC Nucleated RBC % (auto) PT INR ABG pH at Pt Temp 7.30 L ABG pCO2 at Pt Temp 54 H ABG pO2 at Pt Temp 135 H ABG HCO3 27 H Carbon Dioxide BUN 29 H Creatinine 2.18 H POC Glucose 125 H Random Glucose Fasting Glucose 137 H Nasal S. aureus Screen Crossmatch 03/07/23 03/07/23 03/07/23 08:11 11:03 13:15 RBC 2.72 L Hgb 7.9 L Hct 24.6 L MPV 8.9 L Immature Gran % (Auto) Neut % (Auto) Lymph % (Auto) Lymph # (Auto) Abs Immat Gran (auto) Absolute Nucleated RBC 0.020 H Nucleated RBC % (auto) 0.3 H PT 14.0 H INR 1.2 H ABG pH at Pt Temp 7.32 L ABG pCO2 at Pt Temp 53 H ABG pO2 at Pt Temp 48 L* ABG HCO3 27 H Carbon Dioxide BUN Creatinine POC Glucose 130 H Random Glucose Fasting Glucose Nasal S. aureus Screen Crossmatch Assessment and Plan (1) Acute hypoxic respiratory failure: Status: Acute (2) Morbid obesity: Status: Acute (3) BERNIE (obstructive sleep apnea): Status: Acute Plan Impression: 58-year-old lady admitted after an elective total knee replacement with postop course complicated by hypoxemia. Patient still closely walking positive, at least 5 L. Her oxygenation is improving with diuresis. Recommendations: Would continue with judicious diuresis, consider Lasix drip at 5 mg a now. Also underlying severe obstructive sleep apnea, requires nocturnal CPAP of 12. No concern for pulmonary embolism at this time. May have had transient fat embolism, though unlikely. Procedures Date of Service Date of Service: 03/07/23
[2023-03-07] MEDS: Albuterol Sulfate (0.083%) 2.5 MG/3 ML VIAL.NEB INHALE ×2 (16:09→19:38)
[2023-03-07 16:13] LABS: Glucose, Whole Blood 123 mg/dL (60-115)
[2023-03-07] MEDS: HYDROmorphone HCl 0.5 MG/0.5 ML SYRINGE 0.25 MG IVPUSH (16:55)
[2023-03-07 20:42] LABS: Glucose, Whole Blood 124 mg/dL (60-115)
[2023-03-07] MEDS: Famotidine 20 MG TABLET 40 MG PO (21:21)
[2023-03-07] MEDS: Pravastatin Sodium 40 MG TABLET PO (21:22)
[2023-03-08] VITALS (13 sets, daily range): BP systolic 106–127; BP diastolic 57–89; PULSE 69–91; RESP 12–20; TEMP 36–37.1; O2SAT 91–98
[2023-03-08] MEDS: HYDROmorphone HCl 0.5 MG/0.5 ML SYRINGE 0.25 MG IVPUSH ×5 (03:52→21:55)
[2023-03-08] MEDS: Omeprazole 20 MG CAPSULE.DR PO (05:59)
[2023-03-08 07:43] LABS: Glucose, Whole Blood 132 mg/dL (60-115)
[2023-03-08 08:07] LABS: Hematocrit 22.4 % (37.0-47.0); Hemoglobin 7.2 g/dl (12.0-16.0); Mean Corpuscular HGB Conc 32.1 g/dl (31.0-35.0); Mean Corpuscular Hemoglobin 28.7 pg (27.0-33.0); Mean Corpuscular Volume 89.2 fL (80.0-98.0); Mean Platelet Volume 9.3 fL (9.4-12.3); Platelet Count 183 X10*3/uL (160-400); Red Blood Count 2.51 X10*6/uL (4.20-5.50); White Blood Count 5.5 X10*3/uL (4.8-10.8)
[2023-03-08 08:27] LABS: INTERNATIONAL NORM RATIO 1.1 (0.9-1.1); Prothrombin Time 13.7 SEC (11.1-13.3)
[2023-03-08] MEDS: 0.9 % Sodium Chloride Flush 3 ML SYRINGE IVFLUSH ×2 (08:35→21:55)
[2023-03-08 08:38] LABS: Alanine Aminotransferase 13 U/L (0-31); Albumin Level 3.3 g/dL (3.5-5.0); Alkaline Phosphatase 62 U/L (39-117); Anion Gap 14 (12-20); Aspartate Amino Transferase 29 U/L (5-31); Blood Urea Nitrogen 28 mg/dL (9-16); Calcium 8.4 mg/dL (8.4-10.2); Carbon Dioxide 25 mmol/L (22-29); Chloride 106 mmol/L (96-108); Creatinine Clr Calc Pharmacy 42.6; Estimated Glomerular Filt Rate 29; Glucose Fasting 144 mg/dL (60-99); Potassium 4.1 mmol/L (3.3-5.1); Sodium 141 mmol/L (135-145); Total Protein 6.5 g/dL (6.5-8.0)
[2023-03-08] MEDS: Docusate Sodium 100 MG CAPSULE PO ×2 (08:38→21:54)
[2023-03-08] MEDS: amLODIPine Besylate 10 MG TABLET PO (08:38)
[2023-03-08] MEDS: Escitalopram Oxalate 20 MG TABLET PO (08:39)
[2023-03-08] MEDS: Ferrous Sulfate 324 MG TABLET.DR PO (08:39)
[2023-03-08] MEDS: oxyCODONE HCl ER 10 MG TAB.ER.12H PO ×2 (08:39→21:54)
[2023-03-08] MEDS: SITagliptin Phosphate 50 MG TABLET PO (08:39)
[2023-03-08 09:03] LABS: Bilirubin Total 0.5 mg/dL (0.0-1.0)
[2023-03-08 11:41] LABS: Glucose, Whole Blood 182 mg/dL (60-115)
[2023-03-08] MEDS: Enoxaparin Sodium 40 MG/0.4 ML SYRINGE SUBCUT (13:44)
--- NOTE | 2023-03-08 14:15 | HO.PM.IMPN ---
Subjective Subjective Date of Service: 03/08/23 Interval History: Slowly improving. O2 requirement decreasing. States feels better. Pain control adequate Review of Systems Denies chest pain Denies shortness of breath Denies nausea vomiting diarrhea Denies fever chills Physical Exam Vital Signs: Vital Signs: Last Vital Signs Temp 97.2 F 03/08/23 11:40 Pulse 84 03/08/23 11:40 Resp 16 03/08/23 11:40 BP 111/57 L 03/08/23 11:40 Pulse Ox 94 03/08/23 11:40 O2 Del Method BiPAP 03/08/23 11:40 O2 Flow Rate 7 03/08/23 11:40 FiO2 30 03/07/23 19:40 BMI result Body Mass Index 38.7 Const: Other: Awake alert no acute distress lying comfortably with high-flow Resp: Other: Clear to auscultation bilaterally no rales rhonchi or wheezes Cardio: Other: No S4; positive S1-S2; no S3 murmurs rubs or gallops GI: Other: Soft nontender nondistended normoactive bowel sounds Extrem: Other: No edema bilaterally Objective Data Active Medications Acetaminophen (Acetaminophen 325 Mg Tablet) 650 mg PO Q6H PRN PRN Reason: Pain, Mild (Pain Scale 1-3) Last Admin: 03/07/23 14:22 Dose: 650 mg Documented By: CARLOTTA Albuterol Sulfate (Albuterol Sulfate 90 Mcg 8 Gm Inhaler) 2 puff INHALE Q4H PRN PRN Reason: Shortness Of Breath Albuterol Sulfate (Albuterol Sulfate (0.083%) 2.5 Mg/3 Ml Vial.Neb) 2.5 mg INHALE TID [facility] Last Admin: 03/08/23 08:12 Dose: Not Given Documented By: GENNY Non-Admin Reason: Patient Asleep Amlodipine Besylate (Amlodipine Besylate 10 Mg Tablet) 10 mg PO DAILY [facility]; Protocol Last Admin: 03/08/23 08:38 Dose: 10 mg Documented By: ALEX Dextrose (Dextrose 50 % 25 Gm/50 Ml Syringe) 25 gm IVPUSH Q15M PRN; Protocol PRN Reason: per Hypoglycemia Standing Ord. Docusate Sodium (Docusate Sodium 100 Mg Capsule) 100 mg PO BID [facility] Last Admin: 03/08/23 08:38 Dose: 100 mg Documented By: ALEX Enoxaparin Sodium (Enoxaparin Sodium 40 Mg/0.4 Ml Syringe) 40 mg SUBCUT Q24H [facility] Last Admin: 03/08/23 13:44 Dose: 40 mg Documented By: ALEX Escitalopram Oxalate (Escitalopram Oxalate 20 Mg Tablet) 20 mg PO DAILY [facility] Last Admin: 03/08/23 08:39 Dose: 20 mg Documented By: ALEX Famotidine (Famotidine 20 Mg Tablet) 40 mg PO BEDTIME [facility] Last Admin: 03/07/23 21:21 Dose: 40 mg Documented By: DEANA Ferrous Sulfate (Ferrous Sulfate 324 Mg Tablet.) 324 mg PO DAILY [facility] Last Admin: 03/08/23 08:39 Dose: 324 mg Documented By: ALEX Fluticasone Propionate (Fluticasone Propionate Nasal 16 Gm [place]) 2 spray NOSTRIL-B DAILY PRN PRN Reason: Allergy Symptoms Fluticasone Propionate (Fluticasone Propionate 100 Mcg Blst.W.Dev) 1 puff INHALE RBID [facility] Last Admin: 03/08/23 08:12 Dose: Not Given Documented By: GENNY Non-Admin Reason: Patient Refused Glucose (Glucose Gel 15 Gm Gel..Gram.) 15 gm PO Q15M PRN; Protocol PRN Reason: per Hypoglycemia Standing Ord. Hydromorphone HCl (Hydromorphone Hcl 0.5 Mg/0.5 Ml Syringe) 0.25 mg IVPUSH Q4H PRN; Protocol PRN Reason: Pain, Severe (Pain Scale 7-10) Last Admin: 03/08/23 13:43 Dose: 0.25 mg Documented By: ALEX Insulin Human Lispro (Insulin Lispro 100 Unit/Ml 3 Ml Vial) 0 unit SUBCUT QIDACHS [facility]; Protocol Last Admin: 03/08/23 13:33 Dose: Not Given Documented By: ALEX Non-Admin Reason: No Insulin Coverage Loratadine (Loratadine 10 Mg Tablet) 10 mg PO DAILY PRN PRN Reason: Allergy Symptoms Mirtazapine (Mirtazapine 30 Mg Tablet) 30 mg PO BEDTIME PRN PRN Reason: Sleep Omeprazole (Omeprazole 20 Mg Capsule.) 20 mg PO DAILY@0630 [facility] Last Admin: 03/08/23 05:59 Dose: 20 mg Documented By: DEANA Ondansetron HCl (Ondansetron Hcl 4 Mg/2 Ml Vial) 4 mg IVPUSH Q8H PRN PRN Reason: Nausea and Vomiting Last Admin: 03/05/23 04:30 Dose: 4 mg Documented By: MALKA Oxycodone HCl (Oxycodone Hcl Immed Release 5 Mg Tablet) 10 mg PO Q4H PRN PRN Reason: Pain, Moderate(Pain Scale 4-6) Last Admin: 03/07/23 14:23 Dose: 10 mg Documented By: CARLOTTA Oxycodone HCl (Oxycodone Hcl Er 10 Mg Tab.Er.12h) 10 mg PO BID [facility] Last Admin: 03/08/23 08:39 Dose: 10 mg Documented By: ALEX Pravastatin Sodium (Pravastatin Sodium 40 Mg Tablet) 40 mg PO BEDTIME [facility] Last Admin: 03/07/23 21:22 Dose: 40 mg Documented By: DEANA Sitagliptin Phosphate (Sitagliptin Phosphate 50 Mg Tablet) 50 mg PO DAILY [facility] Last Admin: 03/08/23 08:39 Dose: 50 mg Documented By: ALEX Sodium Chloride (0.9 % Sodium Chloride Flush 3 Ml Syringe) 3 ml IVFLUSH [facility] Last Admin: 03/08/23 08:35 Dose: 3 ml Documented By: ALEX Sodium Chloride (0.9 % Sodium Chloride Flush 3 Ml Syringe) 3 ml IVFLUSH [facility] Last Admin: 03/08/23 13:33 Dose: Not Given Documented By: ALEX Non-Admin Reason: IV Running Labs 03/08/23 07:34 03/08/23 07:34 Labs: Laboratory Results - last 24 hr 03/06/23 03/07/23 03/07/23 09:34 15:57 20:31 MCV MCH MCHC RDW Plt Count MPV Absolute Nucleated RBC Nucleated RBC % (auto) PT INR Anion Gap Estim Creat Clear Calc Estimated GFR POC Glucose 123 H 124 H Fasting Glucose Calcium Total Bilirubin AST ALT Alkaline Phosphatase Total Protein Albumin Blood Type O Positive Antibody Screen NEGATIVE Crossmatch See Detail 03/08/23 03/08/23 03/08/23 07:25 07:34 11:36 MCV 89.2 MCH 28.7 MCHC 32.1 RDW 14.0 Plt Count 183 MPV 9.3 L Absolute Nucleated RBC 0.000 Nucleated RBC % (auto) 0.0 PT 13.7 H INR 1.1 Anion Gap 14 Estim Creat Clear Calc 42.6 Estimated GFR 29 POC Glucose 132 H 182 H Fasting Glucose 144 H Calcium 8.4 Total Bilirubin 0.5 AST 29 ALT 13 Alkaline Phosphatase 62 Total Protein 6.5 Albumin 3.3 L Blood Type Antibody Screen Crossmatch Assessment and Plan (1) Status post total knee replacement, left: Status: Acute (2) Acute hypoxic respiratory failure: Status: Acute Plan 58-year-old Romansh speaking female with PMH significant for HTN, HLD, chronic mild low proliferative disease, CKD 3, [id number] diabetes type 2, osteoarthritis, GERD, and BERNIE on CPAP who is admitted to the hospital under orthopedics for left TKA. Significant desaturation requiring high-flow O2. V/Q questionable. 1.Left TKA -as per Ortho 2. Acute hypoxic respiratory failure -continue high-flow... Titrate as indicated -V/Q unremarkable 3.Acute on chronic normocytic anemia -Hgb stable -history of stem cell transplant... Avoid transfusion of possible 4.HTN -hold lisinopril -add back when clinically appropriate 5.Rbl-[id number] diabetes type 2 -metformin held ... continue same -lispro correctional scale 6.CKD 3 -Hold ACEI -Volume after scan -follow renals/divalents 7.BERNIE -Continue CPAP at night Lovenox Full code Requires ongoing hospitalization for high-flow oxygen pending workup of hypoxic respiratory failure Quality Stroke Does the patient have a stroke diagnosis?: No VTE Prior VTE?: No VTE Risk Level:: Medical - moderate - high VTE Device Contraindication: N/A - Device Ordered VTE Drug Contraindication: N/A - Med Ordered
[2023-03-08] MEDS: Albuterol Sulfate (0.083%) 2.5 MG/3 ML VIAL.NEB INHALE ×2 (15:17→19:48)
[2023-03-08 16:34] LABS: Glucose, Whole Blood 116 mg/dL (60-115)
[2023-03-08] MEDS: Acetaminophen 325 MG TABLET 650 MG PO (17:31)
[2023-03-08 20:39] LABS: Glucose, Whole Blood 129 mg/dL (60-115)
[2023-03-08] MEDS: Famotidine 20 MG TABLET 40 MG PO (21:54)
[2023-03-08] MEDS: Pravastatin Sodium 40 MG TABLET PO (21:59)
[2023-03-09] VITALS (10 sets, daily range): BP systolic 109–157; BP diastolic 56–71; PULSE 74–94; RESP 16–20; TEMP 36.2–36.6; O2SAT 92–97
[2023-03-09] MEDS: HYDROmorphone HCl 0.5 MG/0.5 ML SYRINGE 0.25 MG IVPUSH ×5 (01:50→21:44)
[2023-03-09] MEDS: Omeprazole 20 MG CAPSULE.DR PO (05:26)
[2023-03-09 07:29] LABS: Glucose, Whole Blood 128 mg/dL (60-115)
[2023-03-09] MEDS: Fluticasone Propionate 100 MCG BLST.W.DEV 1 PUFF INHALE ×2 (07:42→19:23)
[2023-03-09] MEDS: Albuterol Sulfate (0.083%) 2.5 MG/3 ML VIAL.NEB INHALE ×2 (07:43→19:40)
[2023-03-09 07:49] LABS: Alanine Aminotransferase 18 U/L (0-31); Albumin Level 3.3 g/dL (3.5-5.0); Alkaline Phosphatase 74 U/L (39-117); Anion Gap 15 (12-20); Aspartate Amino Transferase 27 U/L (5-31); Bilirubin Total 0.4 mg/dL (0.0-1.0); Blood Urea Nitrogen 30 mg/dL (9-16); Calcium 8.8 mg/dL (8.4-10.2); Carbon Dioxide 26 mmol/L (22-29); Chloride 106 mmol/L (96-108); Creatinine Clr Calc Pharmacy 47.6; Estimated Glomerular Filt Rate 32; Glucose Fasting 131 mg/dL (60-99); Potassium 4.5 mmol/L (3.3-5.1); Sodium 142 mmol/L (135-145); Total Protein 6.8 g/dL (6.5-8.0)
[2023-03-09] MEDS: 0.9 % Sodium Chloride Flush 3 ML SYRINGE IVFLUSH ×4 (09:19→21:49)
[2023-03-09] MEDS: SITagliptin Phosphate 50 MG TABLET PO (09:21)
[2023-03-09] MEDS: amLODIPine Besylate 10 MG TABLET PO (09:21)
[2023-03-09] MEDS: Docusate Sodium 100 MG CAPSULE PO (09:21)
[2023-03-09] MEDS: oxyCODONE HCl ER 10 MG TAB.ER.12H PO (09:21)
[2023-03-09] MEDS: Ferrous Sulfate 324 MG TABLET.DR PO (09:22)
[2023-03-09] MEDS: Acetaminophen 325 MG TABLET 650 MG PO ×2 (09:22→15:23)
[2023-03-09] MEDS: Escitalopram Oxalate 20 MG TABLET PO (09:22)
[2023-03-09 11:38] LABS: Glucose, Whole Blood 155 mg/dL (60-115)
--- NOTE | 2023-03-09 12:19 | HO.PM.IMPN ---
Subjective Subjective Date of Service: 03/09/23 Interval History: Slowly improving. More alert today. States pain control adequate Review of Systems Denies chest pain Denies shortness of breath Denies nausea vomiting diarrhea Denies fever chills Physical Exam Vital Signs: Vital Signs: Last Vital Signs Temp 97.9 F 03/09/23 11:23 Pulse 83 03/09/23 11:23 Resp 20 03/09/23 11:23 BP 120/56 L 03/09/23 11:23 Pulse Ox 97 03/09/23 11:23 O2 Del Method High Flow Nasal C annula 03/09/23 11:23 O2 Flow Rate 35 03/09/23 11:23 FiO2 35 03/09/23 11:23 BMI result Body Mass Index 38.7 Const: Other: Awake alert no acute distress lying comfortably with high-flow Resp: Other: Clear to auscultation bilaterally no rales rhonchi or wheezes Cardio: Other: No S4; positive S1-S2; no S3 murmurs rubs or gallops GI: Other: Soft nontender nondistended normoactive bowel sounds Extrem: Other: No edema bilaterally Objective Data Active Medications Acetaminophen (Acetaminophen 325 Mg Tablet) 650 mg PO Q6H PRN PRN Reason: Pain, Mild (Pain Scale 1-3) Last Admin: 03/09/23 09:22 Dose: 650 mg Documented By: ALEX Albuterol Sulfate (Albuterol Sulfate 90 Mcg 8 Gm Inhaler) 2 puff INHALE Q4H PRN PRN Reason: Shortness Of Breath Albuterol Sulfate (Albuterol Sulfate (0.083%) 2.5 Mg/3 Ml Vial.Neb) 2.5 mg INHALE TID [facility] Last Admin: 03/09/23 07:43 Dose: 2.5 mg Documented By: POLA Amlodipine Besylate (Amlodipine Besylate 10 Mg Tablet) 10 mg PO DAILY [facility]; Protocol Last Admin: 03/09/23 09:21 Dose: 10 mg Documented By: ALEX Dextrose (Dextrose 50 % 25 Gm/50 Ml Syringe) 25 gm IVPUSH Q15M PRN; Protocol PRN Reason: per Hypoglycemia Standing Ord. Docusate Sodium (Docusate Sodium 100 Mg Capsule) 100 mg PO BID [facility] Last Admin: 03/09/23 09:21 Dose: 100 mg Documented By: ALEX Enoxaparin Sodium (Enoxaparin Sodium 40 Mg/0.4 Ml Syringe) 40 mg SUBCUT Q24H [facility] Last Admin: 03/08/23 13:44 Dose: 40 mg Documented By: ALEX Escitalopram Oxalate (Escitalopram Oxalate 20 Mg Tablet) 20 mg PO DAILY [facility] Last Admin: 03/09/23 09:22 Dose: 20 mg Documented By: ALEX Famotidine (Famotidine 20 Mg Tablet) 40 mg PO BEDTIME [facility] Last Admin: 03/08/23 21:54 Dose: 40 mg Documented By: DEANA Ferrous Sulfate (Ferrous Sulfate 324 Mg Tablet.) 324 mg PO DAILY [facility] Last Admin: 03/09/23 09:22 Dose: 324 mg Documented By: ALEX Fluticasone Propionate (Fluticasone Propionate Nasal 16 Gm [place]) 2 spray NOSTRIL-B DAILY PRN PRN Reason: Allergy Symptoms Fluticasone Propionate (Fluticasone Propionate 100 Mcg Blst.W.Dev) 1 puff INHALE RBID [facility] Last Admin: 03/09/23 07:42 Dose: 1 puff Documented By: POLA Glucose (Glucose Gel 15 Gm Gel..Gram.) 15 gm PO Q15M PRN; Protocol PRN Reason: per Hypoglycemia Standing Ord. Hydromorphone HCl (Hydromorphone Hcl 0.5 Mg/0.5 Ml Syringe) 0.25 mg IVPUSH Q4H PRN; Protocol PRN Reason: Pain, Severe (Pain Scale 7-10) Last Admin: 03/09/23 09:18 Dose: 0.25 mg Documented By: ALEX Insulin Human Lispro (Insulin Lispro 100 Unit/Ml 3 Ml Vial) 0 unit SUBCUT QIDACHS [facility]; Protocol Last Admin: 03/09/23 07:32 Dose: Not Given Documented By: ALEX Non-Admin Reason: No Insulin Coverage Comments: 128 Loratadine (Loratadine 10 Mg Tablet) 10 mg PO DAILY PRN PRN Reason: Allergy Symptoms Mirtazapine (Mirtazapine 30 Mg Tablet) 30 mg PO BEDTIME PRN PRN Reason: Sleep Omeprazole (Omeprazole 20 Mg Capsule.) 20 mg PO DAILY@0630 [facility] Last Admin: 03/09/23 05:26 Dose: 20 mg Documented By: DEANA Ondansetron HCl (Ondansetron Hcl 4 Mg/2 Ml Vial) 4 mg IVPUSH Q8H PRN PRN Reason: Nausea and Vomiting Last Admin: 03/05/23 04:30 Dose: 4 mg Documented By: MALKA Oxycodone HCl (Oxycodone Hcl Immed Release 5 Mg Tablet) 10 mg PO Q4H PRN PRN Reason: Pain, Moderate(Pain Scale 4-6) Last Admin: 03/07/23 14:23 Dose: 10 mg Documented By: CARLOTTA Oxycodone HCl (Oxycodone Hcl Er 10 Mg Tab.Er.12h) 10 mg PO BID [facility] Last Admin: 03/09/23 09:21 Dose: 10 mg Documented By: ALEX Pravastatin Sodium (Pravastatin Sodium 40 Mg Tablet) 40 mg PO BEDTIME [facility] Last Admin: 03/08/23 21:59 Dose: 40 mg Documented By: DEANA Sitagliptin Phosphate (Sitagliptin Phosphate 50 Mg Tablet) 50 mg PO DAILY [facility] Last Admin: 03/09/23 09:21 Dose: 50 mg Documented By: ALEX Sodium Chloride (0.9 % Sodium Chloride Flush 3 Ml Syringe) 3 ml IVFLUSH [facility] Last Admin: 03/09/23 09:23 Dose: Not Given Documented By: ALEX Non-Admin Reason: IV Running Sodium Chloride (0.9 % Sodium Chloride Flush 3 Ml Syringe) 3 ml IVFLUSH [facility] Last Admin: 03/09/23 09:23 Dose: 3 ml Documented By: ALEX Labs 03/08/23 07:34 03/09/23 06:13 Labs: Laboratory Results - last 24 hr 03/08/23 03/08/23 03/09/23 16:30 20:01 06:13 Hold Purple Top SEE NOTE Anion Gap 15 Estim Creat Clear Calc 47.6 Estimated GFR 32 POC Glucose 116 H 129 H Fasting Glucose 131 H Calcium 8.8 Total Bilirubin 0.4 AST 27 ALT 18 Alkaline Phosphatase 74 Total Protein 6.8 Albumin 3.3 L 03/09/23 03/09/23 07:19 11:24 Hold Purple Top Anion Gap Estim Creat Clear Calc Estimated GFR POC Glucose 128 H 155 H Fasting Glucose Calcium Total Bilirubin AST ALT Alkaline Phosphatase Total Protein Albumin Assessment and Plan (1) Acute hypoxic respiratory failure: Status: Acute Plan 58-year-old Honduran speaking female with PMH significant for HTN, HLD, chronic mild low proliferative disease, CKD 3, [id number] diabetes type 2, osteoarthritis, GERD, and BERNIE on CPAP who is admitted to the hospital under orthopedics for left TKA. Significant desaturation requiring high-flow O2. V/Q questionable. 1.Left TKA -as per Ortho 2. Acute hypoxic respiratory failure -continue high-flow... Titrate as indicated -V/Q unremarkable -consult pulmonary in a.m. 3.Acute on chronic normocytic anemia -Hgb stable -history of stem cell transplant... Avoid transfusion of possible 4.HTN -hold lisinopril -add back when clinically appropriate 5.Cud-rebqelf-txkedwfqh diabetes type 2 -metformin held ... continue same -lispro correctional scale 6.CKD 3 -Hold ACEI -Volume after scan -follow renals/divalents 7.BERNIE -Continue CPAP at night Lovenox Full code Requires ongoing hospitalization for high-flow oxygen pending workup of hypoxic respiratory failure Quality Stroke Does the patient have a stroke diagnosis?: No VTE Prior VTE?: No VTE Risk Level:: Medical - moderate - high VTE Device Contraindication: N/A - Device Ordered VTE Drug Contraindication: N/A - Med Ordered
[2023-03-09 13:35] LABS: MANUAL DIFF FLAG NO
[2023-03-09 13:42] LABS: Basophils Percent Auto 0.2 % (0-2); Eosinophils Absolute Auto 0.1 X10*3/uL (0.0-0.4); Eosinophils Percent Auto 1.7 % (0-4); Hemoglobin 7.1 g/dl (12.0-16.0); Imm Gran Abs Auto 0.03 X10*3/uL (0.00-0.03); Imm Gran Pct Auto 0.6 % (0.0-0.4); Lymphocytes Absolute Auto 0.8 X10*3/uL (1.2-4.9); Lymphocytes Percent Auto 16.6 % (20-40); Mean Corpuscular HGB Conc 30.9 g/dl (31.0-35.0); Mean Corpuscular Hemoglobin 29.1 pg (27.0-33.0); Mean Corpuscular Volume 94.3 fL (80.0-98.0); Mean Platelet Volume 9.6 fL (9.4-12.3); Monocytes Absolute Auto 0.4 X10*3/uL (0.1-1.2); Monocytes Percent Auto 8.4 % (2-11); NRBC Pct Auto 0.4 /100WBC (0.0-0.2); Neutrophils Absolute Auto 3.5 x10*3/uL (2.0-8.3); Neutrophils Percent Auto 72.5 % (45-73); Platelet Count 213 X10*3/uL (160-400); Red Blood Count 2.44 X10*6/uL (4.20-5.50); Red Cell Distribution Width 14.1 % (11.0-16.0); White Blood Count 4.8 X10*3/uL (4.8-10.8)
[2023-03-09] MEDS: Enoxaparin Sodium 40 MG/0.4 ML SYRINGE SUBCUT (15:24)
[2023-03-09] MEDS: Lactated Ringers 1,000 ML 100 ML IVCONT (15:45)
[2023-03-09 16:29] LABS: Glucose, Whole Blood 133 mg/dL (60-115)
[2023-03-09 20:25] LABS: Glucose, Whole Blood 129 mg/dL (60-115)
[2023-03-09] MEDS: Mirtazapine 30 MG TABLET PO (21:48)
[2023-03-09] MEDS: Pravastatin Sodium 40 MG TABLET PO (21:48)
[2023-03-09] MEDS: Famotidine 20 MG TABLET 40 MG PO (21:49)
[2023-03-10] VITALS (10 sets, daily range): BP systolic 112–158; BP diastolic 55–72; PULSE 61–103; RESP 18–20; TEMP 36.2–38.7; O2SAT 93–97
[2023-03-10] MEDS: HYDROmorphone HCl 0.5 MG/0.5 ML SYRINGE 0.25 MG IVPUSH ×4 (02:58→18:20)
[2023-03-10] MEDS: Acetaminophen 325 MG TABLET 650 MG PO ×2 (03:02→17:56)
[2023-03-10 07:05] LABS: Alanine Aminotransferase 25 U/L (0-31); Albumin Level 3.3 g/dL (3.5-5.0); Alkaline Phosphatase 95 U/L (39-117); Anion Gap 13 (12-20); Aspartate Amino Transferase 33 U/L (5-31); Bilirubin Total 0.4 mg/dL (0.0-1.0); Blood Urea Nitrogen 24 mg/dL (9-16); Calcium 8.9 mg/dL (8.4-10.2); Carbon Dioxide 27 mmol/L (22-29); Chloride 106 mmol/L (96-108); Creatinine Clr Calc Pharmacy 58.5; Estimated Glomerular Filt Rate 41; Glucose Fasting 136 mg/dL (60-99); Potassium 4.1 mmol/L (3.3-5.1); Sodium 142 mmol/L (135-145); Total Protein 6.9 g/dL (6.5-8.0)
[2023-03-10 07:49] LABS: Glucose, Whole Blood 155 mg/dL (60-115)
[2023-03-10] MEDS: 0.9 % Sodium Chloride Flush 3 ML SYRINGE IVFLUSH ×3 (08:20→20:09)
[2023-03-10] MEDS: Insulin Lispro 100 UNIT/ML 3 ML VIAL SUBCUT ×2 (08:20→11:36)
[2023-03-10] MEDS: SITagliptin Phosphate 50 MG TABLET PO (08:21)
[2023-03-10] MEDS: Escitalopram Oxalate 20 MG TABLET PO (08:21)
[2023-03-10] MEDS: amLODIPine Besylate 10 MG TABLET PO (08:21)
[2023-03-10] MEDS: Docusate Sodium 100 MG CAPSULE PO ×2 (08:21→21:55)
[2023-03-10] MEDS: Ferrous Sulfate 324 MG TABLET.DR PO (08:21)
[2023-03-10 11:09] LABS: Glucose, Whole Blood 174 mg/dL (60-115)
[2023-03-10] MEDS: Enoxaparin Sodium 40 MG/0.4 ML SYRINGE SUBCUT (13:52)
--- NOTE | 2023-03-10 14:24 | MHC.CM.PN ---
CM met with pt and her daughter in law. They are in agreement with pt going to [facility] and requested [facility], which CM let them know that they do not take pt.'s insurance. They requested that she go in [place]. referrals were made and awaiting possible bed at [facility]. Family and pt aware.
--- NOTE | 2023-03-10 15:18 | P.PNIM_ITS ---
Subjective Subjective Date of Service: 03/10/23 Interval History: Complaining of left knee pain, denies chest pain, no shortness of breath, had no bowel movement in last few days, denies nausea ,vomiting, oxygenation stable currently on 2 L 97%, no acute events overnight. Review of Systems All other system reviewed and negative. Physical Exam 2 Vital Signs: Vital Signs: Last Vital Signs Temp 99.0 F 03/10/23 11:13 Pulse 72 03/10/23 11:13 Resp 20 03/10/23 11:13 BP 112/55 L 03/10/23 11:13 Pulse Ox 93 03/10/23 11:13 O2 Del Method Nasal Cannula 03/10/23 11:13 O2 Flow Rate 3 03/10/23 11:13 FiO2 35 03/09/23 11:23 BMI result Body Mass Index 38.7 Const: Other: General Awake alert x3, no acute distress. Anicteric sclera Neck supple no JVD. CVS regular rate rhythm, Respiratory lungs clear to auscultation, no respiratory distress, no wheeze, no rhonchi. Gastrointestinal abdomen soft, non tender, bowel sounds audible,no guarding , no rigidity. Extremities Left knee dressing in place Neuro non focal Skin pale psych appropriate affect Objective Data Active Medications Acetaminophen (Acetaminophen 325 Mg Tablet) 650 mg PO Q6H PRN PRN Reason: Pain, Mild (Pain Scale 1-3) Last Admin: 03/10/23 03:02 Dose: 650 mg Documented By: ANDREY Albuterol Sulfate (Albuterol Sulfate 90 Mcg 8 Gm Inhaler) 2 puff INHALE Q4H PRN PRN Reason: Shortness Of Breath Albuterol Sulfate (Albuterol Sulfate (0.083%) 2.5 Mg/3 Ml Vial.Neb) 2.5 mg INHALE TID [facility] Last Admin: 03/10/23 15:17 Dose: Not Given Documented By: MICHELLE Non-Admin Reason: Patient Asleep Amlodipine Besylate (Amlodipine Besylate 10 Mg Tablet) 10 mg PO DAILY [facility]; Protocol Last Admin: 03/10/23 08:21 Dose: 10 mg Documented By: MINI Dextrose (Dextrose 50 % 25 Gm/50 Ml Syringe) 25 gm IVPUSH Q15M PRN; Protocol PRN Reason: per Hypoglycemia Standing Ord. Docusate Sodium (Docusate Sodium 100 Mg Capsule) 100 mg PO BID [facility] Last Admin: 03/10/23 08:21 Dose: 100 mg Documented By: MINI Enoxaparin Sodium (Enoxaparin Sodium 40 Mg/0.4 Ml Syringe) 40 mg SUBCUT Q24H [facility] Last Admin: 03/10/23 13:52 Dose: 40 mg Documented By: MINI Escitalopram Oxalate (Escitalopram Oxalate 20 Mg Tablet) 20 mg PO DAILY [facility] Last Admin: 03/10/23 08:21 Dose: 20 mg Documented By: MINI Famotidine (Famotidine 20 Mg Tablet) 40 mg PO BEDTIME [facility] Last Admin: 03/09/23 21:49 Dose: 40 mg Documented By: ANDREY Ferrous Sulfate (Ferrous Sulfate 324 Mg Tablet.Dr) 324 mg PO DAILY [facility] Last Admin: 03/10/23 08:21 Dose: 324 mg Documented By: MIIN Fluticasone Propionate (Fluticasone Propionate Nasal 16 Gm [place]) 2 spray NOSTRIL-B DAILY PRN PRN Reason: Allergy Symptoms Fluticasone Propionate (Fluticasone Propionate 100 Mcg Blst.W.Dev) 1 puff INHALE RBID [facility] Last Admin: 03/10/23 07:48 Dose: Not Given Documented By: MICHELLE Non-Admin Reason: Patient Asleep Glucose (Glucose Gel 15 Gm Gel..Gram.) 15 gm PO Q15M PRN; Protocol PRN Reason: per Hypoglycemia Standing Ord. Hydromorphone HCl (Hydromorphone Hcl 0.5 Mg/0.5 Ml Syringe) 0.25 mg IVPUSH Q4H PRN; Protocol PRN Reason: Pain, Severe (Pain Scale 7-10) Last Admin: 03/10/23 14:13 Dose: 0.25 mg Documented By: DULCE Insulin Human Lispro (Insulin Lispro 100 Unit/Ml 3 Ml Vial) 0 unit SUBCUT QIDACHS [facility]; Protocol Last Admin: 03/10/23 11:36 Dose: 2 unit Documented By: MINI Loratadine (Loratadine 10 Mg Tablet) 10 mg PO DAILY PRN PRN Reason: Allergy Symptoms Mirtazapine (Mirtazapine 30 Mg Tablet) 30 mg PO BEDTIME PRN PRN Reason: Sleep Last Admin: 03/09/23 21:48 Dose: 30 mg Documented By: ANDREY Omeprazole (Omeprazole 20 Mg Capsule.Dr) 20 mg PO DAILY@0630 [facility] Last Admin: 03/10/23 06:30 Dose: Not Given Documented By: ANDREY Non-Admin Reason: Patient Asleep Ondansetron HCl (Ondansetron Hcl 4 Mg/2 Ml Vial) 4 mg IVPUSH Q8H PRN PRN Reason: Nausea and Vomiting Last Admin: 03/05/23 04:30 Dose: 4 mg Documented By: MALKA Pravastatin Sodium (Pravastatin Sodium 40 Mg Tablet) 40 mg PO BEDTIME [facility] Last Admin: 03/09/23 21:48 Dose: 40 mg Documented By: ANDREY Sitagliptin Phosphate (Sitagliptin Phosphate 50 Mg Tablet) 50 mg PO DAILY [facility] Last Admin: 03/10/23 08:21 Dose: 50 mg Documented By: MINI Sodium Chloride (0.9 % Sodium Chloride Flush 3 Ml Syringe) [facility] Last Admin: 03/10/23 08:20 Dose: 3 ml Documented By: MINI Sodium Chloride (0.9 % Sodium Chloride Flush 3 Ml Syringe) 3 ml IVFLUSH QSRIFT [facility] Last Admin: 03/10/23 08:17 Dose: Not Given Documented By: MINI Non-Admin Reason: Duplicate Order Labs 03/09/23 13:26 03/10/23 05:58 Labs: Laboratory Results - last 24 hr 03/09/23 03/09/23 03/10/23 16:25 20:21 05:58 Hold Purple Top SEE NOTE Anion Gap 13 Estim Creat Clear Calc 58.5 Estimated GFR 41 POC Glucose 133 H 129 H Fasting Glucose 136 H Calcium 8.9 Total Bilirubin 0.4 AST 33 H ALT 25 Alkaline Phosphatase 95 Total Protein 6.9 Albumin 3.3 L 03/10/23 03/10/23 07:40 11:03 Hold Purple Top Anion Gap Estim Creat Clear Calc Estimated GFR POC Glucose 155 H 174 H Fasting Glucose Calcium Total Bilirubin AST ALT Alkaline Phosphatase Total Protein Albumin Assessment and Plan (1) Acute hypoxic respiratory failure: Status: Acute Plan 58-year-old Uzbek speaking female with PMH significant for HTN, HLD, chronic mild low proliferative disease, CKD 3, [id number] diabetes type 2, osteoarthritis, GERD, and BERNIE on CPAP who is admitted to the hospital under orthopedics for left TKA. Significant desaturation requiring high-flow O2. V/Q questionable. 1.Left TKA -PT recommend short-term rehab -low hematocrit will transfuse 1 unit follow CBC -constipation on Colace will add MiraLax and lactulose x1 -encourage incentive spirometry 2. Acute hypoxic respiratory failure -on 2 L of oxygen finger oximetry 97%, likely due to anemia,post op -V/Q unremarkable -wean oxygen encourage incentive spirometry, out of bed to chair 3.Acute on chronic normocytic anemia -history of stem cell transplant, case discussed with Dr. Rosales she recommend 1 unit of packed RBC follow H&H, continue iron supplement 4.HTN -BP elevated continue amlodipine 10 mg and resume lisinopril 5 mg daily -add back when clinically appropriate 5.Jfc-qubchqa-mmkncomsc diabetes type 2 -blood sugars stable, metformin held , continue diabetic diet, Januvia and lispro correctional scale 6.CKD 3 -stable resume lisinopril 7.BERNIE -Continue CPAP at night, not on home CPAP 8. Mood disorder continue Lexapro Lovenox Full code Requires ongoing hospitalization for hypoxia, anemia requiring blood transfusion disposition to short-term rehab upon discharge as per Ortho Quality Stroke Does the patient have a stroke diagnosis?: No VTE Prior VTE?: No VTE Risk Level:: Medical - moderate - high VTE Device Contraindication: N/A - Device Ordered VTE Drug Contraindication: N/A - Med Ordered
[2023-03-10 16:59] LABS: Glucose, Whole Blood 124 mg/dL (60-115)
[2023-03-10] MEDS: lisinopriL 5 MG TABLET PO (17:12)
[2023-03-10] MEDS: Furosemide 20 MG TABLET PO (17:12)
[2023-03-10] MEDS: Lactulose 20 GM/30 ML SOLUTION 10 GM PO (17:12)
[2023-03-10] MEDS: polyethylene glycoL 3350 17 GM POWD.PACK PO (17:12)
--- NOTE | 2023-03-10 18:05 | PC.NURSE ---
1 unit of PRBCs ordered for pt, when assessing pre administration vitals patients temp increased at 101.6, prn tylenol given and blood not hung until temp is 99.[address] valladares
[2023-03-10] MEDS: Fluticasone Propionate 100 MCG BLST.W.DEV 1 PUFF INHALE (18:50)
[2023-03-10] MEDS: Albuterol Sulfate (0.083%) 2.5 MG/3 ML VIAL.NEB INHALE (18:50)
[2023-03-10 20:17] LABS: Glucose, Whole Blood 121 mg/dL (60-115)
[2023-03-10] MEDS: Famotidine 20 MG TABLET 40 MG PO (21:55)
[2023-03-10] MEDS: Pravastatin Sodium 40 MG TABLET PO (21:55)
[2023-03-11] VITALS (14 sets, daily range): BP systolic 129–158; BP diastolic 59–81; PULSE 61–90; RESP 16–20; TEMP 36.2–37.2; O2SAT 92–98
[2023-03-11] MEDS: 0.9 % Sodium Chloride Flush 3 ML SYRINGE IVFLUSH ×4 (00:46→20:01)
[2023-03-11] MEDS: HYDROmorphone HCl 0.5 MG/0.5 ML SYRINGE 0.25 MG IVPUSH ×4 (00:46→20:00)
[2023-03-11] MEDS: Omeprazole 20 MG CAPSULE.DR PO (06:05)
[2023-03-11 06:40] LABS: Hematocrit 26.4 % (37.0-47.0); Hemoglobin 8.6 g/dl (12.0-16.0); Mean Corpuscular HGB Conc 32.6 g/dl (31.0-35.0); Mean Corpuscular Hemoglobin 28.9 pg (27.0-33.0); Mean Corpuscular Volume 88.6 fL (80.0-98.0); NRBC Pct Auto 0.3 /100WBC (0.0-0.2); Platelet Count 216 X10*3/uL (160-400); Red Blood Count 2.98 X10*6/uL (4.20-5.50); Red Cell Distribution Width 14.1 % (11.0-16.0); White Blood Count 5.7 X10*3/uL (4.8-10.8)
[2023-03-11 07:00] LABS: Glucose, Whole Blood 141 mg/dL (60-115)
[2023-03-11] MEDS: Fluticasone Propionate 100 MCG BLST.W.DEV 1 PUFF INHALE ×2 (07:47→20:06)
[2023-03-11] MEDS: Albuterol Sulfate (0.083%) 2.5 MG/3 ML VIAL.NEB INHALE ×3 (07:49→20:02)
[2023-03-11] MEDS: SITagliptin Phosphate 50 MG TABLET PO (08:40)
[2023-03-11] MEDS: amLODIPine Besylate 10 MG TABLET PO (08:40)
[2023-03-11] MEDS: Furosemide 20 MG TABLET PO (08:40)
[2023-03-11] MEDS: Docusate Sodium 100 MG CAPSULE PO ×2 (08:40→20:01)
[2023-03-11] MEDS: Escitalopram Oxalate 20 MG TABLET PO (08:41)
[2023-03-11] MEDS: polyethylene glycoL 3350 17 GM POWD.PACK PO (08:41)
[2023-03-11] MEDS: lisinopriL 5 MG TABLET PO (08:41)
[2023-03-11] MEDS: Ferrous Sulfate 324 MG TABLET.DR PO (08:41)
--- NOTE | 2023-03-11 09:53 | PM.PNORT ---
Subjective Subjective Date of Service: 03/11/23 Interval history: POD 7 s/p LT TKA No overnight events patients Oxygen level has been dropping when off bipap/cpap/NC denies sob, cp, palpitations or dizziness Physical Exam Vital Signs: Vital Signs: Last Vital Signs Temp 98.4 F 03/11/23 06:59 Pulse 88 03/11/23 07:49 Resp 16 03/11/23 07:49 BP 148/70 H 03/11/23 06:59 Pulse Ox 92 03/11/23 06:59 O2 Del Method CPAP 03/11/23 06:59 O2 Flow Rate 3 03/10/23 11:13 FiO2 35 03/09/23 11:23 BMI result Body Mass Index 38.7 Const: General: cooperative, healthy appearing and no acute distress Resp: Effort & Inspection: normal respiratory effort and able to speak in complete sentences Cardio: Rate: regular rate Peripheral pulses: Peripheral pulses 2+ throughout GI: Palpation (GI): Soft to palpation Skin: General skin exam: no rashes or lesions noted Lesions: no lesions Rashes: no rashes Extrem: Other: left knee dressing is c/d/i. Lew intact. dRessing changed at bedside. Able to dorsi/plantar flex. Calf is supple and nontender. Sensation intact. Pedal pulse intact. Procedures Date of Service Date of Service: 03/11/23 Progress Note: A&P Assessment and plan (1) Status post total knee replacement, left: Status: Acute Assessment and Plan: Continue pain mgmnt lovenox for dvt ppx Continue PT for LTKA Dispo-pending medical clearance and rehab placement Need for continued inpatient stay: uncontrolled pain, low h/h, desating Oxygen levels Time Spent With Patient Time: Total time managing care of this patient today ____ minutes. Quality Stroke Does the patient have a stroke diagnosis?: No VTE Prior VTE?: No VTE Risk Level:: Medical - moderate - high VTE Device Contraindication: N/A - Device Ordered VTE Drug Contraindication: N/A - Med Ordered
--- NOTE | 2023-03-11 10:30 | P.PNIM_ITS ---
Subjective Subjective Date of Service: 03/11/23 Interval History: Feeling better this morning, denies shortness of breath, no headache, had left knee pain earlier receive IV Dilaudid with good relief in symptoms, tolerated 1 unit of blood last night, no acute issues overnight, tolerating diet with no nausea no vomiting or abdominal discomfort. Review of Systems All other system reviewed and negative. Physical Exam 2 Vital Signs: Vital Signs: Last Vital Signs Temp 98.4 F 03/11/23 06:59 Pulse 88 03/11/23 07:49 Resp 16 03/11/23 07:49 BP 148/70 H 03/11/23 06:59 Pulse Ox 92 03/11/23 06:59 O2 Del Method CPAP 03/11/23 06:59 O2 Flow Rate 3 03/10/23 11:13 FiO2 35 03/09/23 11:23 BMI result Body Mass Index 38.7 Const: Other: General Awake alert x3, no acute distress. Anicteric sclera Neck supple no JVD. CVS regular rate rhythm, Respiratory lungs clear to auscultation, no respiratory distress, no wheeze, no rhonchi. Gastrointestinal abdomen soft, non tender, bowel sounds audible,no guarding , no rigidity. Extremities Left knee dressing in place Neuro non focal Skin no rash, good color psych appropriate affect Objective Data Active Medications Acetaminophen (Acetaminophen 325 Mg Tablet) 650 mg PO Q6H PRN PRN Reason: Pain, Mild (Pain Scale 1-3) Last Admin: 03/10/23 17:56 Dose: 650 mg Documented By: MINI Albuterol Sulfate (Albuterol Sulfate 90 Mcg 8 Gm Inhaler) 2 puff INHALE Q4H PRN PRN Reason: Shortness Of Breath Albuterol Sulfate (Albuterol Sulfate (0.083%) 2.5 Mg/3 Ml Vial.Neb) 2.5 mg INHALE TID [facility] Last Admin: 03/11/23 07:49 Dose: 2.5 mg Documented By: GENNY Amlodipine Besylate (Amlodipine Besylate 10 Mg Tablet) 10 mg PO DAILY [facility]; Protocol Last Admin: 03/11/23 08:40 Dose: 10 mg Documented By: KLAUSARTRaciel Dextrose (Dextrose 50 % 25 Gm/50 Ml Syringe) 25 gm IVPUSH Q15M PRN; Protocol PRN Reason: per Hypoglycemia Standing Ord. Docusate Sodium (Docusate Sodium 100 Mg Capsule) 100 mg PO BID [facility] Last Admin: 03/11/23 08:40 Dose: 100 mg Documented By: JUSTA Enoxaparin Sodium (Enoxaparin Sodium 40 Mg/0.4 Ml Syringe) 40 mg SUBCUT Q24H [facility] Last Admin: 03/10/23 13:52 Dose: 40 mg Documented By: MINI Escitalopram Oxalate (Escitalopram Oxalate 20 Mg Tablet) 20 mg PO DAILY [facility] Last Admin: 03/11/23 08:41 Dose: 20 mg Documented By: JUSTA Famotidine (Famotidine 20 Mg Tablet) 40 mg PO BEDTIME [facility] Last Admin: 03/10/23 21:55 Dose: 40 mg Documented By: JINFOMalika Ferrous Sulfate (Ferrous Sulfate 324 Mg Tablet.Dr) 324 mg PO DAILY [facility] Last Admin: 03/11/23 08:41 Dose: 324 mg Documented By: JUSTA Fluticasone Propionate (Fluticasone Propionate Nasal 16 Gm [place]) 2 spray NOSTRIL-B DAILY PRN PRN Reason: Allergy Symptoms Fluticasone Propionate (Fluticasone Propionate 100 Mcg Blst.W.Dev) 1 puff INHALE RBID [facility] Last Admin: 03/11/23 07:47 Dose: 1 puff Documented By: GENNY Furosemide (Furosemide 20 Mg Tablet) 20 mg PO DAILY [facility]; Protocol Last Admin: 03/11/23 08:40 Dose: 20 mg Documented By: JUSTA Glucose (Glucose Gel 15 Gm Gel..Gram.) 15 gm PO Q15M PRN; Protocol PRN Reason: per Hypoglycemia Standing Ord. Hydromorphone HCl (Hydromorphone Hcl 0.5 Mg/0.5 Ml Syringe) 0.25 mg IVPUSH Q4H PRN; Protocol PRN Reason: Pain, Severe (Pain Scale 7-10) Last Admin: 03/11/23 08:41 Dose: 0.25 mg Documented By: JUSTA Insulin Human Lispro (Insulin Lispro 100 Unit/Ml 3 Ml Vial) 0 unit SUBCUT QIDACHS [facility]; Protocol Last Admin: 03/11/23 07:52 Dose: Not Given Documented By: JUSTA Non-Admin Reason: No Insulin Coverage Lisinopril (Lisinopril 5 Mg Tablet) 5 mg PO DAILY [facility]; Protocol Last Admin: 03/11/23 08:41 Dose: 5 mg Documented By: JUSTA Loratadine (Loratadine 10 Mg Tablet) 10 mg PO DAILY PRN PRN Reason: Allergy Symptoms Mirtazapine (Mirtazapine 30 Mg Tablet) 30 mg PO BEDTIME PRN PRN Reason: Sleep Last Admin: 03/09/23 21:48 Dose: 30 mg Documented By: ANDREY Omeprazole (Omeprazole 20 Mg Capsule.Dr) 20 mg PO DAILY@0630 [facility] Last Admin: 03/11/23 06:05 Dose: 20 mg Documented By: GENE Ondansetron HCl (Ondansetron Hcl 4 Mg/2 Ml Vial) 4 mg IVPUSH Q8H PRN PRN Reason: Nausea and Vomiting Last Admin: 03/05/23 04:30 Dose: 4 mg Documented By: MALKA Polyethylene Glycol (Polyethylene Glycol 3350 17 Gm Powd.Pack) 17 gm PO DAILY [facility] Last Admin: 03/11/23 08:41 Dose: 17 gm Documented By: JUSTA Pravastatin Sodium (Pravastatin Sodium 40 Mg Tablet) 40 mg PO BEDTIME [facility] Last Admin: 03/10/23 21:55 Dose: 40 mg Documented By: DEMETRA Sitagliptin Phosphate (Sitagliptin Phosphate 50 Mg Tablet) 50 mg PO DAILY [facility] Last Admin: 03/11/23 08:40 Dose: 50 mg Documented By: JUSTA Sodium Chloride (0.9 % Sodium Chloride Flush 3 Ml Syringe) 3 ml IVFLUSH [facility] Last Admin: 03/11/23 08:42 Dose: 3 ml Documented By: JUSTA Sodium Chloride (0.9 % Sodium Chloride Flush 3 Ml Syringe) [facility] Last Admin: 03/11/23 08:48 Dose: Not Given Documented By: JUSTA Non-Admin Reason: Duplicate Order Labs 03/11/23 06:20 03/10/23 05:58 Labs: Laboratory Results - last 24 hr 03/10/23 03/10/23 03/10/23 11:03 15:46 16:55 MCV MCH MCHC RDW Plt Count MPV Absolute Nucleated RBC Nucleated RBC % (auto) POC Glucose 174 H 124 H Blood Type O Positive Antibody Screen NEGATIVE Crossmatch See Detail 03/10/23 03/11/23 03/11/23 20:12 06:20 06:56 MCV 88.6 D MCH 28.9 MCHC 32.6 RDW 14.1 Plt Count 216 MPV 9.0 L Absolute Nucleated RBC 0.020 H Nucleated RBC % (auto) 0.3 H POC Glucose 121 H 141 H Blood Type Antibody Screen Crossmatch Assessment and Plan (1) Acute hypoxic respiratory failure: Status: Acute Plan 58-year-old Cameroonian speaking female with PMH significant for HTN, HLD, chronic mild low proliferative disease, CKD 3, [id number] diabetes type 2, osteoarthritis, GERD, and BERNIE on CPAP who is admitted to the hospital under orthopedics for left TKA. Significant desaturation requiring high-flow O2. V/Q questionable. 1.Left TKA - Good pain control -is status post 1 unit of PRBC, hematocrit improved 26 -constipation on Colace , MiraLax ,s/p lactulose will follow -encourage incentive spirometry 2. Acute hypoxic respiratory failure -on 2 L of oxygen finger oximetry 97%, likely due to anemia,post op -V/Q unremarkable -wean oxygen encourage incentive spirometry, out of bed to chair 3.Acute on chronic normocytic anemia -history of stem cell transplant, case discussed with Dr. Rosales received 1 unit of packed RBC hematocrit improved continue iron supplement 4.HTN -BP better controlled, continue amlodipine 10 mg and lisinopril 5 mg daily 5.Fus-yxucjpn-ytdcxxygy diabetes type 2 -blood sugars stable, metformin held , continue diabetic diet, Januvia and lispro correctional scale 6.CKD 3 -stable 7.BERNIE -Continue CPAP at night, not on home CPAP 8. Mood disorder continue Lexapro Lovenox Full code disposition to short-term rehab as per Ortho Quality Stroke Does the patient have a stroke diagnosis?: No VTE Prior VTE?: No VTE Risk Level:: Medical - moderate - high VTE Device Contraindication: N/A - Device Ordered VTE Drug Contraindication: N/A - Med Ordered
[2023-03-11 10:59] LABS: Glucose, Whole Blood 156 mg/dL (60-115)
[2023-03-11] MEDS: Insulin Lispro 100 UNIT/ML 3 ML VIAL SUBCUT (11:35)
[2023-03-11] MEDS: Enoxaparin Sodium 40 MG/0.4 ML SYRINGE SUBCUT (14:38)
--- NOTE | 2023-03-11 15:30 | MHC.CM.PN ---
Pt has been accepted at [facility] for [facility] term stay. She takes a med that they are not able to give her for chemotherapy. CM discussed this with SNF, PT, family, to determine solution. Family will ask oncologist if pt can go a week or two more without the med (she is not taking it here) to determine if she can go to rehab. MDS, completed and faxed to [facility], awaiting screen. CM to follow.
[2023-03-11 16:24] LABS: Glucose, Whole Blood 139 mg/dL (60-115)
[2023-03-11] MEDS: Famotidine 20 MG TABLET 40 MG PO (20:01)
[2023-03-11] MEDS: Pravastatin Sodium 40 MG TABLET PO (20:01)
[2023-03-11 20:30] LABS: Glucose, Whole Blood 144 mg/dL (60-115)
[2023-03-12] VITALS: BP 123/75; PULSE 76; RESP 20; TEMP 37.1; O2SAT 92
[2023-03-12 02:47] VITALS: PULSE 69; RESP 22; O2SAT 91
[2023-03-12 03:47] VITALS: BP 144/81; PULSE 74; RESP 18; TEMP 36.6; O2SAT 94
[2023-03-12] MEDS: 0.9 % Sodium Chloride Flush 3 ML SYRINGE IVFLUSH ×2 (06:34→08:18)
[2023-03-12] MEDS: Omeprazole 20 MG CAPSULE.DR PO (06:35)
[2023-03-12 07:08] VITALS: BP 143/75; PULSE 68; RESP 20; TEMP 36.4; O2SAT 96
[2023-03-12 07:14] LABS: Glucose, Whole Blood 135 mg/dL (60-115)
--- NOTE | 2023-03-12 07:43 | PM.PNORT ---
Subjective Subjective Date of Service: 03/12/23 Interval history: POD 8 s/p LT TKA No overnight events patients Oxygen level has been dropping when off bipap/cpap/NC denies sob, cp, palpitations or dizziness Physical Exam Vital Signs: Vital Signs: Last Vital Signs Temp 97.5 F 03/12/23 07:08 Pulse 68 03/12/23 07:08 Resp 20 03/12/23 07:08 BP 143/75 H 03/12/23 07:08 Pulse Ox 96 03/12/23 07:08 O2 Del Method Nasal Cannula 03/12/23 07:08 O2 Flow Rate 3 03/12/23 07:08 FiO2 35 03/09/23 11:23 BMI result Body Mass Index 38.7 Const: General: cooperative, healthy appearing and no acute distress Resp: Effort & Inspection: normal respiratory effort and able to speak in complete sentences Cardio: Rate: regular rate Peripheral pulses: Peripheral pulses 2+ throughout GI: Palpation (GI): Soft to palpation Skin: General skin exam: no rashes or lesions noted Lesions: no lesions Rashes: no rashes Extrem: Other: left knee dressing is c/d/i. Lew intact. dRessing changed at bedside. Able to dorsi/plantar flex. Calf is supple and nontender. Sensation intact. Pedal pulse intact. Procedures Date of Service Date of Service: 03/12/23 Progress Note: A&P Assessment and plan (1) Status post total knee replacement, left: Status: Acute Assessment and Plan: Continue pain mgmnt lovenox for dvt ppx Continue PT for LTKA Dispo-pending medical clearance and rehab placement Need for continued inpatient stay: uncontrolled pain, low h/h, desating Oxygen levels Time Spent With Patient Time: Total time managing care of this patient today ____ minutes. Quality Stroke Does the patient have a stroke diagnosis?: No VTE Prior VTE?: No VTE Risk Level:: Medical - moderate - high VTE Device Contraindication: N/A - Device Ordered VTE Drug Contraindication: N/A - Med Ordered
[2023-03-12 08:11] LABS: Hematocrit 26.3 % (37.0-47.0); Hemoglobin 8.5 g/dl (12.0-16.0); Mean Corpuscular HGB Conc 32.3 g/dl (31.0-35.0); Mean Corpuscular Hemoglobin 28.5 pg (27.0-33.0); Mean Corpuscular Volume 88.3 fL (80.0-98.0); Mean Platelet Volume 9.2 fL (9.4-12.3); NRBC Pct Auto 0.5 /100WBC (0.0-0.2); Platelet Count 220 X10*3/uL (160-400); Red Blood Count 2.98 X10*6/uL (4.20-5.50); Red Cell Distribution Width 14.1 % (11.0-16.0); White Blood Count 6.5 X10*3/uL (4.8-10.8)
[2023-03-12 08:14] VITALS: PULSE 68; RESP 16; O2SAT 94
[2023-03-12] MEDS: Fluticasone Propionate 100 MCG BLST.W.DEV 1 PUFF INHALE (08:14)
[2023-03-12] MEDS: Escitalopram Oxalate 20 MG TABLET PO (08:17)
[2023-03-12] MEDS: amLODIPine Besylate 10 MG TABLET PO (08:17)
[2023-03-12] MEDS: Furosemide 20 MG TABLET PO (08:17)
[2023-03-12] MEDS: Docusate Sodium 100 MG CAPSULE PO (08:18)
[2023-03-12] MEDS: polyethylene glycoL 3350 17 GM POWD.PACK PO (08:18)
[2023-03-12] MEDS: lisinopriL 5 MG TABLET PO (08:18)
[2023-03-12] MEDS: SITagliptin Phosphate 50 MG TABLET PO (08:18)
[2023-03-12] MEDS: Ferrous Sulfate 324 MG TABLET.DR PO (08:18)
--- NOTE | 2023-03-12 09:29 | P.PNIM_ITS ---
Subjective Subjective Date of Service: 03/12/23 Interval History: Complaining of pain left knee and also shortness of breath, slept well no acute issues overnight on 2 L of oxygen finger oximetry 97% denies nausea, no vomiting, no abdominal pain, tolerating diet. Review of Systems All other system reviewed and negative. Physical Exam 2 Vital Signs: Vital Signs: Last Vital Signs Temp 97.5 F 03/12/23 07:08 Pulse 68 03/12/23 08:14 Resp 16 03/12/23 08:14 BP 143/75 H 03/12/23 07:08 Pulse Ox 96 03/12/23 07:08 O2 Del Method Nasal Cannula 03/12/23 07:08 O2 Flow Rate 3 03/12/23 07:08 FiO2 35 03/09/23 11:23 BMI result Body Mass Index 38.7 Const: Other: General Awake alert x3, no acute distress. Anicteric sclera Neck supple no JVD. CVS regular rate rhythm, Respiratory lungs clear to auscultation, no respiratory distress, no wheeze, no rhonchi. Gastrointestinal abdomen soft, non tender, bowel sounds audible,no guarding , no rigidity. Extremities Left knee dressing in place ,swelling Neuro non focal Skin no rash, good color psych appropriate affect Objective Data Active Medications Acetaminophen (Acetaminophen 325 Mg Tablet) 650 mg PO Q6H PRN PRN Reason: Pain, Mild (Pain Scale 1-3) Last Admin: 03/10/23 17:56 Dose: 650 mg Documented By: MINI Albuterol Sulfate (Albuterol Sulfate 90 Mcg 8 Gm Inhaler) 2 puff INHALE Q4H PRN PRN Reason: Shortness Of Breath Amlodipine Besylate (Amlodipine Besylate 10 Mg Tablet) 10 mg PO DAILY [facility]; Protocol Last Admin: 03/12/23 08:17 Dose: 10 mg Documented By: KEITH Dextrose (Dextrose 50 % 25 Gm/50 Ml Syringe) 25 gm IVPUSH Q15M PRN; Protocol PRN Reason: per Hypoglycemia Standing Ord. Docusate Sodium (Docusate Sodium 100 Mg Capsule) 100 mg PO BID [facility] Last Admin: 03/12/23 08:18 Dose: 100 mg Documented By: KEITH Enoxaparin Sodium (Enoxaparin Sodium 40 Mg/0.4 Ml Syringe) 40 mg SUBCUT Q24H [facility] Last Admin: 03/11/23 14:38 Dose: 40 mg Documented By: JUSTA Escitalopram Oxalate (Escitalopram Oxalate 20 Mg Tablet) 20 mg PO DAILY [facility] Last Admin: 03/12/23 08:17 Dose: 20 mg Documented By: KEITH Famotidine (Famotidine 20 Mg Tablet) 40 mg PO BEDTIME [facility] Last Admin: 03/11/23 20:01 Dose: 40 mg Documented By: COLLEEN Ferrous Sulfate (Ferrous Sulfate 324 Mg Tablet.Dr) 324 mg PO DAILY [facility] Last Admin: 03/12/23 08:18 Dose: 324 mg Documented By: KEITH Fluticasone Propionate (Fluticasone Propionate Nasal 16 Gm Dane) 2 spray NOSTRIL-B DAILY PRN PRN Reason: Allergy Symptoms Fluticasone Propionate (Fluticasone Propionate 100 Mcg Blst.W.Dev) 1 puff INHALE RBID [facility] Last Admin: 03/12/23 08:14 Dose: 1 puff Documented By: GENNY Furosemide (Furosemide 20 Mg Tablet) 20 mg PO DAILY [facility]; Protocol Last Admin: 03/12/23 08:17 Dose: 20 mg Documented By: KEITH Glucose (Glucose Gel 15 Gm Gel..Gram.) 15 gm PO Q15M PRN; Protocol PRN Reason: per Hypoglycemia Standing Ord. Hydromorphone HCl (Hydromorphone Hcl 0.5 Mg/0.5 Ml Syringe) 0.25 mg IVPUSH Q4H PRN; Protocol PRN Reason: Pain, Severe (Pain Scale 7-10) Last Admin: 03/11/23 20:00 Dose: 0.25 mg Documented By: COLLEEN Insulin Human Lispro (Insulin Lispro 100 Unit/Ml 3 Ml Vial) 0 unit SUBCUT QIDACHS [facility]; Protocol Last Admin: 03/12/23 08:01 Dose: Not Given Documented By: KEITH Non-Admin Reason: No Insulin Coverage Lisinopril (Lisinopril 5 Mg Tablet) 5 mg PO DAILY [facility]; Protocol Last Admin: 03/12/23 08:18 Dose: 5 mg Documented By: KEITH Loratadine (Loratadine 10 Mg Tablet) 10 mg PO DAILY PRN PRN Reason: Allergy Symptoms Mirtazapine (Mirtazapine 30 Mg Tablet) 30 mg PO BEDTIME PRN PRN Reason: Sleep Last Admin: 03/09/23 21:48 Dose: 30 mg Documented By: ANDREY Omeprazole (Omeprazole 20 Mg Capsule.) 20 mg PO DAILY@0630 [facility] Last Admin: 03/12/23 06:35 Dose: 20 mg Documented By: FABY Ondansetron HCl (Ondansetron Hcl 4 Mg/2 Ml Vial) 4 mg IVPUSH Q8H PRN PRN Reason: Nausea and Vomiting Last Admin: 03/05/23 04:30 Dose: 4 mg Documented By: MALKA Polyethylene Glycol (Polyethylene Glycol 3350 17 Gm Powd.Pack) 17 gm PO DAILY [facility] Last Admin: 03/12/23 08:18 Dose: 17 gm Documented By: KEITH Pravastatin Sodium (Pravastatin Sodium 40 Mg Tablet) 40 mg PO BEDTIME [facility] Last Admin: 03/11/23 20:01 Dose: 40 mg Documented By: COLLEEN Sitagliptin Phosphate (Sitagliptin Phosphate 50 Mg Tablet) 50 mg PO DAILY [facility] Last Admin: 03/12/23 08:18 Dose: 50 mg Documented By: KEITH Sodium Chloride (0.9 % Sodium Chloride Flush 3 Ml Syringe) 3 ml IVFLUSH QSVAFT [facility] Last Admin: 03/12/23 08:18 Dose: 3 ml Documented By: KEITH Sodium Chloride (0.9 % Sodium Chloride Flush 3 Ml Syringe) 3 ml IVFLUSH QSVAFT [facility] Last Admin: 03/12/23 08:07 Dose: Not Given Documented By: KEITH Non-Admin Reason: Duplicate Order Labs 03/12/23 07:14 03/10/23 05:58 Labs: Laboratory Results - last 24 hr 03/11/23 03/11/23 03/11/23 10:53 16:18 20:26 MCV MCH MCHC RDW Plt Count MPV Absolute Nucleated RBC Nucleated RBC % (auto) POC Glucose 156 H 139 H 144 H 03/12/23 03/12/23 07:09 07:14 MCV 88.3 MCH 28.5 MCHC 32.3 RDW 14.1 Plt Count 220 MPV 9.2 L Absolute Nucleated RBC 0.030 H Nucleated RBC % (auto) 0.5 H POC Glucose 135 H Assessment and Plan (1) Acute hypoxic respiratory failure: Status: Acute Plan 58-year-old Vietnamese speaking female with PMH significant for HTN, HLD, chronic mild low proliferative disease, CKD 3, kat-hffvbhf-ccpgetcnz diabetes type 2, osteoarthritis, GERD, and BERNIE on CPAP who is admitted to the hospital under orthopedics for left TKA. Significant desaturation requiring high-flow O2. V/Q questionable. 1.Left TKA -persistent pain, will DC IV morphine placed on oxycodone 5 mg Q 4 hour continue same upon discharge -status post 1 unit of PRBC, hematocrit improved to 26 -constipation resolved continue Colace , MiraLax -encourage incentive spirometry 2. Acute hypoxic respiratory failure -likely due to anemia, postop and obstructive sleep apnea, on 2 L of oxygen finger oximetry 97%, -V/Q unremarkable -oxygen discontinued finger oximetry 95% recommend to use oxygen with activity as needed at rehab, encourage incentive spirometry, out of bed to chair 3.Acute on chronic normocytic anemia -history of stem cell transplant, received 1 unit of packed RBC ,hematocrit improved continue iron supplement , continue outpatient follow-up with Dr. Rosales 4.HTN -BP better controlled, continue amlodipine 10 mg and lisinopril 5 mg daily 5.Cvd-fxmwgyd-mgjrxokef diabetes type 2 -blood sugars stable, resume metformin , continue diabetic diet, Januvia and lispro correctional scale 6.CKD 3 -stable 7.BERNIE -Continue CPAP at night, not on home CPAP 8. Mood disorder continue Lexapro Lovenox Full code disposition to short-term rehab as per Ortho Quality Stroke Does the patient have a stroke diagnosis?: No VTE Prior VTE?: No VTE Risk Level:: Medical - moderate - high VTE Device Contraindication: N/A - Device Ordered VTE Drug Contraindication: N/A - Med Ordered
[2023-03-12] MEDS: oxyCODONE HCl Immed Release 5 MG TABLET PO (09:49)
--- NOTE | 2023-03-12 11:41 | MHC.CM.PN ---
Pt medically cleared for DC, she is going to STR at [facility]. Barrier to DC was a medication that she takes for cancer (Jakafi). Rehab reported that she could not take it there. CM followed up with family and oncologist, and was informed that this med is not chemo, info was sent via fax to rehab, and oncologist said it would be ok for her to go a week or 2 without it until she gets home. [facility] accepted patient.
[2023-03-12 11:50] VITALS: BP 140/73; PULSE 76; RESP 20; TEMP 36.8; O2SAT 94
[2023-03-12 12:01] LABS: Glucose, Whole Blood 138 mg/dL (60-115)
== END 2023-03-12 13:40 | disposition skilled nursing facility (03) | DRG 326 ==
LOC: HO.SSS 16:06 → HO.S3 16:06 → HO.IMC 03-07 11:09
PROVIDERS: Hospitalist; Internal Medicine; Nurse Practitioner; Admitting Provider Physician Assistant; PCP Internal Medicine; Visit Provider Orthopaedic Surgery
PROC: 0SRD0J9 Replacement of Left Knee Joint with Synthetic Substitute, Cemented, Open Approach (ICD-10-PCS; CPT 27447; principal; 2023-03-04 11:50)
DX: M17.12 Unilateral primary osteoarthritis, left knee (principal); J96.01 Acute respiratory failure with hypoxia; I50.33 Acute on chronic diastolic (congestive) heart failure; D47.1 Chronic myeloproliferative disease; E11.22 Type 2 diabetes mellitus with diabetic chronic kidney disease; Z94.81 Bone marrow transplant status; D64.9 Anemia, unspecified; N18.30 Chronic kidney disease, stage 3 unspecified; E66.01 Morbid (severe) obesity due to excess calories; Z68.38 Body mass index [BMI] 38.0-38.9, adult; I13.0 Hypertensive heart and chronic kidney disease with heart failure and stage 1 through stage 4 chronic kidney disease, or unspecified chronic kidney disease; J44.9 Chronic obstructive pulmonary disease, unspecified; E11.40 Type 2 diabetes mellitus with diabetic neuropathy, unspecified; F39 Unspecified mood [affective] disorder; Z94.84 Stem cells transplant status; G47.33 Obstructive sleep apnea (adult) (pediatric); G89.18 Other acute postprocedural pain; Z79.51 Long term (current) use of inhaled steroids; Z79.84 Long term (current) use of oral hypoglycemic drugs; Z79.899 Other long term (current) drug therapy
CPT/HCPCS: 36415; 36600; 71045; 73560; 78580; 80048; 80053; 80076; 82565; 82803; 82947; 83036; 84484; 85014; 85018; 85025; 85027; 85379; 85610; 85730; 86850; 86900; 86901; 86923; 87640; 87641; 88305; 88311; 93005; 93970; 94640; 94660; 97110; 97116; 97162; 97530; A9540; C1713; C1776; J0131; J0690; J1170; J1650; J1885; J1940; J2405; J2795; J3010; P9016

== ENCOUNTER → 2023-03-06 16:05 | Outpatient (BNV) | payer MEDICAID, SELFPAY | PROVIDERS: Admitting Provider Physician Assistant; PCP Internal Medicine; Visit Provider Internal Medicine Pulmonary Disease | DX: J96.01 Acute respiratory failure with hypoxia (principal); E66.01 Morbid (severe) obesity due to excess calories; G47.33 Obstructive sleep apnea (adult) (pediatric) | CPT/HCPCS: 99222 ==

== ENCOUNTER 2023-03-20 06:34 | Outpatient (RCR) | payer MEDICAID, SELFPAY | END 2023-07-18 14:55 | disposition home or self-care (01) | LOC: HO.PT 06:34 | PROVIDERS: PCP Internal Medicine; Visit Provider Physician Assistant | DX: M17.12 Unilateral primary osteoarthritis, left knee (principal) ==

== ENCOUNTER 2023-03-24 08:22 | Outpatient (AMB) | payer MEDICAID, SELFPAY ==
--- NOTE | 2023-03-24 08:29 | A.OFFVIS_ITS ---
Intake Intake Visit Reasons: PO-LT TKA 03/04/23 NE Intake Note: Santa quiñonez 58 year old female presents today for a post operative left TKA, 03/04/23 NE. Patient reports mild pain, stating some days are better than others. Complaints of intermittent swelling at the base of her thumb since her surgery. Allergies aspirin [ASPIRIN] Allergy (Intermediate, Verified 03/24/23 08:30) SWELLING/ITCHING, rash Penicillins Allergy (Intermediate, Verified 03/24/23 08:30) ITCHING vancomycin [VANCOMYCIN] Adverse Reaction (Intermediate, Verified 03/24/23 08:30) RED MAN SYNDROME PER MD HPI PO-LT TKA 03/04/23 NE HPI Details 58-year-old female who returns to the [facility] today for post-op left TKA, 03/04/[address] Grigsby. She continues to have pain in her knee which fluctuates in intensity between days. She also c/o intermittent swelling at the base of her thumb since the DOS. She is working on physical therapy with benefits. She is doing well otherwise and has no concerns today. [facility] Medical History Hx of radiation therapy Hx of transfusion of packed red blood cells COVID-19 vaccine series completed Osteoarthritis of wrist Obesity due to excess calories Osteoarthritis of knees, bilateral Hiatal hernia History of myelofibrosis History of depression Anemia BERNIE (obstructive sleep apnea) Biliary dyskinesia CKD stage 3 due to type 2 diabetes mellitus Chronic myeloproliferative disease History of gastritis GERD (gastroesophageal reflux disease) Diabetic neuropathy associated with type 2 diabetes mellitus Diabetic nephropathy Morbid obesity due to excess calories Hypertension Diabetes type 2, controlled Asthma Vitamin B12 deficiency Dyslipidemia Surgical History Bone marrow replaced by transplant History of resection of meningioma H/O stem cell transplant Hx of colonoscopy Hx of breast reduction, elective Hx of esophagogastroduodenoscopy History of partial hysterectomy Family History Father Heart problem HTN (hypertension) Mother Diabetes Family/Other Diabetes HTN (hypertension) Heart problem Sister Cancer Social History Household Members: None Housing: Apartment Are you a primary healthcare facility administrator to a significant other at home: No Do you presently have visiting nurse or other home services: No Alcohol intake: never Patient Tobacco Use Status: Never used Tobacco Advance Directives Date on File: 03/24/16 service: No Current occupational status: disabled Review of Systems Const All systems reviewed & are unremarkable except as noted in HPI and below Physical Exam Extrem Other: Left knee: Incision clean, dry and intact. No erythema or drainage around the incision. ROM is 10 to 90 degrees. Calf supple, nontender. NVI. Assessment & Plan Assessment & Plan (1) Status post total knee replacement, left: Code(s): Z96.652 - Presence of left artificial knee joint Plan Tyronza removed, steri strips applied. She will begin to transition to Outpatient PT to continue working on Gait training, ROM and quad strength. No driving for another 4 weeks. She will require ppx abx for dental procedures. She will f/u in 4 weeks, sooner if needed. Patient Instructions: Scribed for Angel Shcafer PA-C, by Chandler Galvez medical technologist microbiology, on 03/24/2023 at 8:30 AM EST. I, Angel Schafer PA-C, have personally reviewed and agree with the information entered by the scribe. Coding Level of Care Code Global (45543) Diagnoses Status post total knee replacement, left Z96.652
== END 2023-03-24 08:58 | disposition home or self-care (01) ==
PROVIDERS: PCP Internal Medicine; Visit Provider Physician Assistant
DX: Z96.652 Presence of left artificial knee joint (principal)
CPT/HCPCS: 99024

== ENCOUNTER → 2023-03-24 08:22 | Outpatient (BNVA) | payer MEDICAID, SELFPAY | PROVIDERS: PCP Internal Medicine; Visit Provider Physician Assistant ==

== ENCOUNTER 2023-04-08 12:13 | Emergency (ER) | payer MEDICAID, SELFPAY ==
--- NOTE | ~2023-04-08 | XR_ITS ---
EXAMINATION: XR HAND, RIGHT CLINICAL INFORMATION: Pain and swelling second MCP COMPARISON: None available. TECHNIQUE: PA, lateral, and oblique views of the right hand. FINDINGS: No acute visible fracture or dislocation. Mild multi joint arthritic changes. Joint spaces and alignment are otherwise maintained. Soft tissues are unremarkable. XR/XR hand RT min 3V IMPRESSION: 1. No acute visible fracture or dislocation. 2. Mild multi joint arthritic changes.
[2023-04-08 13:00] VITALS: BP 141/71; PULSE 82; RESP 20; TEMP 36.6; O2SAT 100; BMI 36.0
--- NOTE | 2023-04-08 13:01 | ED_ITS ---
HPI - General Adult General Chief complaint: General Medical Stated complaint: Swollen R arm no inj Time Seen by Provider: 04/08/23 18:46 Source: patient Mode of arrival: ambulatory Limitations: no limitations History of Present Illness HPI narrative: Patient history of asthma arthritis and gout notice pain and swelling in the right hand 2nd MCP joint no other joint swelling no fever or chills Related Data Home Medications Medication Instructions Recorded Confirmed citalopram 40 mg tablet 40 mg PO DAILY 02/15/20 02/27/23 cholecalciferol (vitamin D3) 25 25 mcg PO DAILY 02/16/20 02/27/23 mcg (1,000 unit) capsule mirtazapine 15 mg tablet 30 mg PO BEDTIME PRN Sleep 11/28/20 02/27/23 albuterol sulfate 2.5 mg/3 mL 2.5 mg inhalation TID 10/07/21 02/27/23 (0.083 %) solution for nebulization albuterol sulfate 90 mcg/actuation 2 puff inhalation Q4-6H PRN 10/07/21 02/27/23 aerosol inhaler (ProAir HFA) Shortness Of Breath diclofenac sodium 1 % topical gel 2 g topical BID 10/07/21 02/27/23 fluticasone propionate 50 2 spray intranasal DAILY PRN 10/07/21 02/27/23 mcg/actuation nasal Allergy Symptoms spray,suspension lidocaine 5 % topical patch 1 patch topical DAILY 10/07/21 02/27/23 (Lidoderm) loratadine 10 mg tablet 10 mg PO DAILY PRN Allergy Symptoms 10/07/21 02/27/23 ruxolitinib 5 mg tablet (Jakafi) 5 mg PO BID 10/07/21 02/27/23 amlodipine 5 mg tablet (Norvasc) 10 mg PO DAILY 02/18/23 02/27/23 cyanocobalamin (vitamin B-12) 1,000 mcg IM QMONTH 02/18/23 02/27/23 1,000 mcg/mL injection solution fluticasone propionate 110 1 puff inhalation Q12H 02/18/23 02/27/23 mcg/actuation HFA aerosol inhaler (Flovent HFA) lisinopril 5 mg tablet 5 mg PO DAILY 02/18/23 02/27/23 pravastatin 40 mg tablet 40 mg PO BEDTIME 02/18/23 02/27/23 Previous Rx's Medication Instructions Recorded metformin 500 mg tablet 500 mg PO BIDWM #60 tabs 01/18/22 sitagliptin phosphate 50 mg tablet 50 mg PO DAILY 90 days #90 tabs 01/18/22 (Januvia) famotidine 40 mg tablet (Pepcid) 40 mg PO BEDTIME 30 days #30 tabs 07/26/22 pantoprazole 40 mg tablet,delayed 40 mg PO DAILY@0630 #30 tabs 07/26/22 release (Protonix) ferrous sulfate 325 mg (65 mg 325 mg PO DAILY #30 tabs 08/08/22 iron) tablet acetaminophen 325 mg tablet 650 mg (2 x 325 mg) PO Q6H PRN 03/12/23 Pain, Mild (Pain Scale 1-3) 30 days #240 tabs docusate sodium 100 mg capsule 100 mg PO BID 14 days #28 caps 03/12/23 enoxaparin 40 mg/0.4 mL 40 mg (0.4 mL) subcut Q24H 35 days 03/12/23 subcutaneous syringe #14 mL oxycodone 5 mg tablet 5 mg PO Q4H PRN Pain, Severe (Pain 03/12/23 Scale 7-10) 7 days #42 tabs walker #1 ea 03/24/23 colchicine 0.6 mg tablet 0.6 mg PO DAILY #30 tabs 04/08/23 ibuprofen 600 mg tablet 600 mg PO Q6H PRN fever or pain 04/08/23 #30 tabs prednisone 20 mg tablet 40 mg (2 x 20 mg) PO DAILY #10 tabs 04/08/23 Allergies Allergy/AdvReac Type Severity Reaction Status Date / Time aspirin [ASPIRIN] Allergy Intermediate SWELLING/ITCHING, Verified 03/24/23 08:30 rash Penicillins Allergy Intermediate ITCHING Verified 03/24/23 08:30 vancomycin [VANCOMYCIN] AdvReac Intermediate RED MAN Verified 03/24/23 08:30 SYNDROME PER MD BAZZI Past Medical History Medical History Hx of radiation therapy Hx of transfusion of packed red blood cells COVID-19 vaccine series completed Osteoarthritis of wrist Obesity due to excess calories Osteoarthritis of knees, bilateral Hiatal hernia History of myelofibrosis History of depression Anemia BERNIE (obstructive sleep apnea) Biliary dyskinesia CKD stage 3 due to type 2 diabetes mellitus Chronic myeloproliferative disease History of gastritis GERD (gastroesophageal reflux disease) Diabetic neuropathy associated with type 2 diabetes mellitus Diabetic nephropathy Morbid obesity due to excess calories Hypertension Diabetes type 2, controlled Asthma Vitamin B12 deficiency Dyslipidemia Surgical History Bone marrow replaced by transplant History of resection of meningioma H/O stem cell transplant Hx of colonoscopy Hx of breast reduction, elective Hx of esophagogastroduodenoscopy History of partial hysterectomy Family History Family History Father Heart problem HTN (hypertension) Mother Diabetes Family/Other Diabetes HTN (hypertension) Heart problem Sister Cancer Social History Social History Household Members: None Housing: Apartment Are you a primary care coordination manager to a significant other at home: No Do you presently have visiting nurse or other home services: No Alcohol intake: never Patient Tobacco Use Status: Never used Tobacco Smoked in Last 30 Days: No Use of substances other than those prescribed or required for medical reasons: No Advance Directives: No Advance Directives Information Provided: Yes Advance Directives Date on File: 03/24/16 service: No Current occupational status: disabled Physical Exam ED Vital Signs: Vital Signs - 24 hr 04/08/23 13:00 04/08/23 20:43 Temperature 97.9 F Pulse Rate 82 83 Respiratory Rate 20 18 Blood Pressure 141/71 H 162/88 H Pulse Oximetry 100 98 Oxygen Delivery Method Room Air Room Air BMI result Body Mass Index 36.0 Appearance: Alert. Oriented X3. No acute distress. Neck: Normal inspection. Neck supple. CVS: Normal heart rate and rhythm. Pulses normal. Respiratory: No respiratory distress. Equal air entry bilateral, Abdomen: Soft and nontender. Bowel sounds are present, Skin: Skin warm and dry. Normal skin color. Normal skin turgor. Extremities: No lower extremity edema. No calf tenderness swollen right 1st MCP joint normal temperature no signs of infection no other joints involved Neuro: Oriented X 3. No motor deficit. Course Course Course Narrative: This is a rapid medical exam: Additional HPI, ROS, PE not included below will be deferred to primary provider. Patient is a 58-year-old female presenting to the emergency department with complaint of pain and swelling to right hand at 2nd MCP joint for 3 days. Denies injury or trauma. Reports history of gout. Did not take any OTC medications prior to arrival. Plan: x-ray Medications Administered Discontinued Medications Generic Name Dose Route Start Last Admin Trade Name Marcusq PRN Reason Stop Dose Admin Colchicine 1.2 mg 04/08/23 18:57 04/08/23 20:03 Colchicine 0.6 Mg Tablet PO 04/08/23 18:58 1.2 mg ONCE ONE Administration Ibuprofen 600 mg 04/08/23 20:21 04/08/23 20:26 Ibuprofen 600 Mg Tablet PO 04/08/23 20:22 600 mg ONCE ONE Administration Prednisone 60 mg 04/08/23 18:57 04/08/23 20:03 Prednisone 20 Mg Tablet PO 04/08/23 18:58 60 mg ONCE ONE Administration Medical Decision Making Medical Decision Making [facility] Narrative: Patient likely with gout of her right 1st MCP joint felt better after prednisone and colchicine discharge patient home on colchicine and prednisone Differential Diagnosis Differential Diagnoses: The differential diagnosis associated with the presentation includes Gout/arthritis Independent Interpretation I performed an independent interpretation of an: Plain X-Ray Radiology Impression Discussion of test interpretation with radiology: I have reviewed the radiologist's reading. Discharge Plan Discharge Clinical Impression: Gout attack Patient Disposition: Home, Self-Care Instructions: Gout (ED) Additional Instructions: Take medication as prescribed Follow with PCP if not better Prescriptions: New prednisone 20 mg tablet 40 mg PO DAILY Qty: 10 0RF colchicine 0.6 mg tablet 0.6 mg PO DAILY Qty: 30 0RF ibuprofen 600 mg tablet 600 mg PO Q6H PRN (Reason: fever or pain) Qty: 30 0RF No Action metformin 500 mg tablet 500 mg PO BIDWM Qty: 60 4RF Januvia 50 mg tablet 50 mg PO DAILY 90 Days Qty: 90 0RF Rx Instructions: Dose reduced based on GFR ferrous sulfate 325 mg (65 mg iron) tablet 325 mg PO DAILY Qty: 30 6RF citalopram 40 mg Tablet 40 mg PO DAILY lidocaine [Lidoderm] 5 % Adhesive Patch,Medicated 1 patch TOPICAL DAILY Rx Instructions: leave on most painful area for up to 12 hrs fluticasone propionate 50 mcg/actuation [place],Suspension 2 spray INTRANASAL DAILY PRN (Reason: Allergy Symptoms) Rx Instructions: administer into each nostril loratadine 10 mg Tablet 10 mg PO DAILY PRN (Reason: Allergy Symptoms) diclofenac sodium 1 % Gel 2 g TOPICAL BID Rx Instructions: apply to single elbow, wrist or hand; for hand includes palm/fingers/back of hand albuterol sulfate 2.5 mg /3 mL (0.083 %) solution for nebulization 2.5 mg inhalation TID albuterol sulfate [ProAir HFA] 90 mcg/actuation Hfa Aerosol Inhaler 2 puff INHALATION Q4-6H PRN (Reason: Shortness Of Breath) Jakafi 5 mg Tablet 5 mg PO BID amlodipine [Norvasc] 5 mg tablet 10 mg PO DAILY cyanocobalamin (vitamin B-12) 1,000 mcg/mL Solution 1,000 mcg IM QMONTH lisinopril 5 mg Tablet 5 mg PO DAILY pravastatin 40 mg Tablet 40 mg PO BEDTIME fluticasone propionate [Flovent HFA] 110 mcg/actuation Hfa Aerosol Inhaler 1 puff INHALATION Q12H acetaminophen 325 mg Tablet 650 mg PO Q6H PRN (Reason: Pain, Mild (Pain Scale 1-3)) 30 Days Qty: 240 0RF docusate sodium 100 mg Capsule 100 mg PO BID 14 Days Qty: 28 0RF oxycodone 5 mg Tablet 5 mg PO Q4H PRN (Reason: Pain, Severe (Pain Scale 7-10)) 7 Days Qty: 42 0RF Rx Instructions: Partial Fill upon patient request. enoxaparin 40 mg/0.4 mL Syringe 40 mg subcut Q24H 35 Days Qty: 14 0RF cholecalciferol (vitamin D3) 25 mcg (1,000 unit) capsule 25 mcg PO DAILY mirtazapine 15 mg tablet 30 mg PO BEDTIME PRN (Reason: Sleep) famotidine [Pepcid] 40 mg tablet 40 mg PO BEDTIME 30 Days Qty: 30 6RF pantoprazole [Protonix] 40 mg tablet,delayed release (DR/EC) 40 mg PO DAILY@0630 Qty: 30 6RF (DME) walker Misc See Rx Instructions .MEDSUPPLY Qty: 1 0RF Rx Instructions: Folding Front wheeled walker Interventions: ED Discharge Assessment Last Done: 04/08/23 20:44 Discharge Date/Time: 04/08/23 20:46
--- NOTE | 2023-04-08 19:12 | PC.NURSE ---
Colchicine unavailable in [place], pharmacy called who will send dose down.
[2023-04-08] MEDS: predniSONE 20 MG TABLET 60 MG PO (20:03)
[2023-04-08] MEDS: Colchicine 0.6 MG TABLET 1.2 MG PO (20:03)
[2023-04-08] MEDS: Ibuprofen 600 MG TABLET PO (20:26)
[2023-04-08 20:43] VITALS: BP 162/88; PULSE 83; RESP 18; O2SAT 98
== END 2023-04-08 20:46 | disposition home or self-care (01) ==
PROVIDERS: Emergency Provider Internal Medicine; PCP Internal Medicine
DX: M10.041 Idiopathic gout, right hand (principal); Z79.899 Other long term (current) drug therapy
CPT/HCPCS: 73130; 99283; 99284

== ENCOUNTER 2023-04-21 12:16 | Outpatient (AMB) | payer MEDICAID, SELFPAY ==
--- NOTE | 2023-04-21 12:47 | A.OFFVIS_ITS ---
Intake Vital Signs 04/21/23 12:51 Height 5 ft 7 in Weight 230 lb BMI 36.0 Intake Visit Reasons: PO-LT TKA 03/04/23 NE Intake Note: Santa quiñonez 58 year old female presents today with her daughter for a post operative visit of left TKA, 03/04/23 NE. Patient reports that she continues to at home exercises, stating she was not contacted to start at home therapy. Allergies aspirin [ASPIRIN] Allergy (Intermediate, Verified 04/21/23 12:52) SWELLING/ITCHING, rash Penicillins Allergy (Intermediate, Verified 04/21/23 12:52) ITCHING vancomycin [VANCOMYCIN] Adverse Reaction (Intermediate, Verified 04/21/23 12:52) RED MAN SYNDROME PER MD HPI PO-LT TKA 03/04/23 NE HPI Details 58-year-old female who returns to the [facility] today with her daughter for post-op left TKA, 03/04/[address] Grigsby. She states she has no pain and is doing well overall. She continues to work on home exercises as instructed. She has not yet started with physical therapy and continues to have some night pain. [facility] Medical History Hx of radiation therapy Hx of transfusion of packed red blood cells COVID-19 vaccine series completed Osteoarthritis of wrist Obesity due to excess calories Osteoarthritis of knees, bilateral Hiatal hernia History of myelofibrosis History of depression Anemia BERNIE (obstructive sleep apnea) Biliary dyskinesia CKD stage 3 due to type 2 diabetes mellitus Chronic myeloproliferative disease History of gastritis GERD (gastroesophageal reflux disease) Diabetic neuropathy associated with type 2 diabetes mellitus Diabetic nephropathy Morbid obesity due to excess calories Hypertension Diabetes type 2, controlled Asthma Vitamin B12 deficiency Dyslipidemia Surgical History Bone marrow replaced by transplant History of resection of meningioma H/O stem cell transplant Hx of colonoscopy Hx of breast reduction, elective Hx of esophagogastroduodenoscopy History of partial hysterectomy Family History Father Heart problem HTN (hypertension) Mother Diabetes Family/Other Diabetes HTN (hypertension) Heart problem Sister Cancer Social History Household Members: None Housing: Apartment Are you a primary child care cook to a significant other at home: No Do you presently have visiting nurse or other home services: No Alcohol intake: never Patient Tobacco Use Status: Never used Tobacco Advance Directives Date on File: 03/24/16 service: No Current occupational status: disabled Review of Systems Const All systems reviewed & are unremarkable except as noted in HPI and below Physical Exam Vital Signs: BMI result Body Mass Index 36.0 Extrem Other: Left shoulder: Incision well healed. No swelling or erythema. ROM is 0-100 degrees. She is able to initiate quad strength with poor control. NVI. Assessment & Plan Assessment & Plan (1) Status post total knee replacement, left: Code(s): Z96.652 - Presence of left artificial knee joint Plan An order for physical therapy has been reinitiated. I did stress the importance of working with physical therapy to improve her quad function. I would like to see her back in [address] Grigsby and new x-rays, sooner if needed. Patient Instructions: Scribed for Angel Schafer PA-C, by Chandler Galvez medical staff director, on 04/21/2023 at 12:45 PM EST. I, Angel Schafer PA-C, have personally reviewed and agree with the information entered by the scribe. Coding Level of Care Code Global (16232) Diagnoses Status post total knee replacement, left Z96.652
[2023-04-21 12:51] VITALS: BMI 36.0
== END 2023-04-21 13:25 | disposition home or self-care (01) ==
PROVIDERS: PCP Internal Medicine; Visit Provider Physician Assistant
DX: Z96.652 Presence of left artificial knee joint (principal)
CPT/HCPCS: 99024

== ENCOUNTER → 2023-04-21 12:16 | Outpatient (BNVA) | payer MEDICAID, SELFPAY | PROVIDERS: PCP Internal Medicine; Visit Provider Physician Assistant | DX: Z47.1 Aftercare following joint replacement surgery (principal); Z96.652 Presence of left artificial knee joint | CPT/HCPCS: 99212 ==

== ENCOUNTER 2023-04-25 11:19 | Outpatient (REF) | payer MEDICAID, SELFPAY ==
[2023-04-25 11:56] LABS: MANUAL DIFF FLAG NO
[2023-04-25 12:00] LABS: Basophils Percent Auto 0.3 % (0-2); Eosinophils Absolute Auto 0.2 X10*3/uL (0.0-0.4); Eosinophils Percent Auto 3.1 % (0-4); Hematocrit 28.6 % (37.0-47.0); Hemoglobin 9.4 g/dl (12.0-16.0); Imm Gran Abs Auto 0.03 X10*3/uL (0.00-0.03); Imm Gran Pct Auto 0.4 % (0.0-0.4); Lymphocytes Absolute Auto 2.1 X10*3/uL (1.2-4.9); Lymphocytes Percent Auto 31.4 % (20-40); Mean Corpuscular HGB Conc 32.9 g/dl (31.0-35.0); Mean Corpuscular Hemoglobin 27.9 pg (27.0-33.0); Mean Corpuscular Volume 84.9 fL (80.0-98.0); Monocytes Absolute Auto 0.5 X10*3/uL (0.1-1.2); Monocytes Percent Auto 7.1 % (2-11); Neutrophils Absolute Auto 3.9 x10*3/uL (2.0-8.3); Neutrophils Percent Auto 57.7 % (45-73); Platelet Count 207 X10*3/uL (160-400); Red Blood Count 3.37 X10*6/uL (4.20-5.50); Red Cell Distribution Width 13.9 % (11.0-16.0); White Blood Count 6.8 X10*3/uL (4.8-10.8)
[2023-04-25 12:19] LABS: Alanine Aminotransferase 12 U/L (0-31); Albumin Level 3.7 g/dL (3.5-5.0); Alkaline Phosphatase 82 U/L (39-117); Anion Gap 14 (12-20); Aspartate Amino Transferase 12 U/L (5-31); Bilirubin Total 0.4 mg/dL (0.0-1.0); Blood Urea Nitrogen 16 mg/dL (9-16); Calcium 9.3 mg/dL (8.4-10.2); Carbon Dioxide 23 mmol/L (22-29); Chloride 108 mmol/L (96-108); Estimated Glomerular Filt Rate 39; Glucose Random 111 mg/dL (60-115); Potassium 4.4 mmol/L (3.3-5.1); Sodium 141 mmol/L (135-145); Total Protein 7.7 g/dL (6.5-8.0)
== END 2023-04-25 11:20 | disposition home or self-care (01) ==
LOC: HO.LAB 11:19
PROVIDERS: PCP Internal Medicine; Visit Provider Internal Medicine Medical Oncology
DX: D64.9 Anemia, unspecified (principal)
CPT/HCPCS: 36415; 80053; 85025; 86850; 86900; 86901

== ENCOUNTER 2023-06-02 07:10 | Outpatient (REF) | payer MEDICAID, SELFPAY | END 2023-06-02 07:11 | disposition home or self-care (01) | LOC: HO.HOSX 07:10 | PROVIDERS: Visit Provider Orthopaedic Surgery | DX: Z13.89 Encounter for screening for other disorder (principal) ==

== ENCOUNTER 2023-06-03 14:33 | Outpatient (REF) | payer MEDICAID, SELFPAY ==
[2023-06-03 15:27] LABS: MANUAL DIFF FLAG NO
[2023-06-03 15:45] LABS: Alanine Aminotransferase 8 U/L (0-31); Albumin Level 4.4 g/dL (3.5-5.0); Alkaline Phosphatase 84 U/L (39-117); Anion Gap 17 (12-20); Aspartate Amino Transferase 10 U/L (5-31); Bilirubin Total 0.2 mg/dL (0.0-1.0); Blood Urea Nitrogen 19 mg/dL (9-16); Calcium 9.6 mg/dL (8.4-10.2); Carbon Dioxide 21 mmol/L (22-29); Chloride 108 mmol/L (96-108); Estimated Glomerular Filt Rate 33; Glucose Random 128 mg/dL (60-115); Lactate Dehydrogenase 204 U/L (122-220); Potassium 3.8 mmol/L (3.3-5.1); Sodium 142 mmol/L (135-145); Total Protein 7.9 g/dL (6.5-8.0)
[2023-06-03 15:48] LABS: Basophils Percent Auto 0.1 % (0-2); Eosinophils Absolute Auto 0.1 X10*3/uL (0.0-0.4); Eosinophils Percent Auto 1.5 % (0-4); Hematocrit 30.2 % (37.0-47.0); Hemoglobin 9.7 g/dl (12.0-16.0); Imm Gran Abs Auto 0.06 X10*3/uL (0.00-0.03); Imm Gran Pct Auto 0.8 % (0.0-0.4); Lymphocytes Absolute Auto 2.2 X10*3/uL (1.2-4.9); Mean Corpuscular HGB Conc 32.1 g/dl (31.0-35.0); Mean Corpuscular Hemoglobin 27.9 pg (27.0-33.0); Mean Corpuscular Volume 86.8 fL (80.0-98.0); Mean Platelet Volume 9.2 fL (9.4-12.3); Monocytes Absolute Auto 0.5 X10*3/uL (0.1-1.2); Monocytes Percent Auto 6.1 % (2-11); Neutrophils Absolute Auto 5.1 x10*3/uL (2.0-8.3); Neutrophils Percent Auto 63.5 % (45-73); Platelet Count 322 X10*3/uL (160-400); Red Blood Count 3.48 X10*6/uL (4.20-5.50); Red Cell Distribution Width 14.3 % (11.0-16.0)
== END 2023-06-03 14:34 | disposition home or self-care (01) ==
LOC: HO.LAB 14:33
PROVIDERS: PCP Internal Medicine; Visit Provider Internal Medicine Medical Oncology
DX: D64.9 Anemia, unspecified (principal)
CPT/HCPCS: 36415; 80053; 83615; 85025

== ENCOUNTER 2023-06-09 12:00 | Outpatient (RCR) | payer MEDICAID, SELFPAY ==
--- NOTE | 2023-05-08 13:28 | MHC.PT.EP ---
[facility] [place] Office [place] Office [place] Office [address] Gwendolyn Gunn [address] [phone] F: [phone] F: [phone] F: [phone] F: [phone] Physical Therapy Plan of Care Date of Evaluation: 05/08/23 Date of Surgery: 03/04/23 Diagnosis: L TKA (RL) Assessment: pt is a 58 y/o female presenting to physical therapy w/ referring diagnosis of L TKA. Impairments include pain, decreased range of motion, decreased strength, impaired functional mobility, impaired postural awareness, and altered ambulation mechanics. pt is a good candidate for skilled PT due to age, potential remediation of impairments, typical disease/condition progression and prognosis, comorbidities, and motivation. pt would benefit from skilled PT intervention to provide a tailored strengthening and stretching exercise program, functional training, gait training, postural re-training, neuromuscular re-education, modalities as needed for pain, equipment safety demonstration. Frequency and Duration: The patient will be seen 2x/wk for 5 wks Short Term Goals: pt will be I w/ HEP to promote self-management of condition. pt will improve L knee extension strength to 5/5 to promote ease in sit<>stand transfers and stair navigation. Ultrasound Manager Goals: pt will ambulate 5 x 50' w/ LRAD to promote improved tolerance for household ambulation. pt will report a statistically significant improvement in self-reported outcome measure, LEFI, to promote return to PLOF. Treatment Plan: Modalities to reduce pain, spasms and effusion. Manual therapy to restore motion and function. Therapeutic exercise to improve strength and flexibility. Neuromuscular re-education for posture and balance. Therapeutic activities to return to functional activities of daily living. Electronically signed by: Vanessa Shin PT, DPT Please sign and return to therapist. Thank you for your referral.
--- NOTE | 2023-07-07 15:11 | MHC.PT.DC ---
[facility] [place] Office [place] Office [place] Office [address] Gwendolyn Gunn [address] [phone] F: [phone] F: [phone] F: [phone] F: [phone] Physical Therapy Discharge Report Diagnosis: L TKA (RL) Date of Surgery: 03/04/23 Date of Evaluation: 05/08/23 Date of Discharge: 07/07/23 Treatments to Date: 6 Cancellations to Date: 5 No Shows to Date: 0 Discharge Status: Visit Non-compliance Discharge Summary: The patient cancelled her last scheduled appointments and has not reached out to reschedule in approximately 30 days. When she was attending PT she was still lacking full range of motion. Specifically, she was struggling with extension which I believe is due to when she lays down she externally rotates the leg and holds it in flexion. She is discharged from this physical therapy plan of care. Electronically signed by: Vanessa Shin PT, DPT Please sign and return to therapist. Thank you for your referral.
== END 2023-07-07 15:11 | disposition home or self-care (01) ==
LOC: HO.PT 12:00
PROVIDERS: PCP Internal Medicine; Visit Provider Physician Assistant
DX: M17.12 Unilateral primary osteoarthritis, left knee (principal)
CPT/HCPCS: 97110; 97116; 97140; 97163; 97530

== ENCOUNTER 2023-08-04 14:40 | Outpatient (AMB) | payer MEDICAID, SELFPAY ==
--- NOTE | 2023-08-04 15:26 | MHC.OFFVIS ---
Intake Vital Signs 08/04/23 15:35 Height 5 ft 7 in Weight 240 lb 6 oz BMI 37.6 BP 134/80 Blood Pressure Location Lt brachial Position Sitting Pulse 74 Pulse Source Pulse Oximeter Pulse Oximetry (%) 98 Oxygen Delivery Method Room Air Intake Visit Reasons: f/u-LVM - Conf Intake Note: Patience presents for F/U. Allergies aspirin [ASPIRIN] Allergy (Intermediate, Verified 08/04/23 15:34) SWELLING/ITCHING, rash Penicillins Allergy (Intermediate, Verified 08/04/23 15:34) ITCHING vancomycin [VANCOMYCIN] Adverse Reaction (Intermediate, Verified 08/04/23 15:34) RED MAN SYNDROME PER MD HPI HPI Comments History of Present Illness Details 58 y/o female patient presents for follow up of sleep study. Pt had a PSG sleep study done. The PSG study result was c/w a severe degree of sleep apnea. The AHI was 73/hr and oxygen kenny was 74%. However, pt declined CPAP titration study. APAP ordered, but patient has not received the CPAP and she was told that her CPAP order . Pt continues to endorse snoring, difficulty staying sleep, frequent arousals with daytime sleepiness. [facility] Medical History (Updated 08/05/23 @ 21:18 by Leyla Preciado CNP) BERNIE (obstructive sleep apnea) Acute hypoxic respiratory failure Morbid obesity Anemia Hx of radiation therapy Hx of transfusion of packed red blood cells COVID-19 vaccine series completed Osteoarthritis of wrist Obesity due to excess calories Osteoarthritis of knees, bilateral Hiatal hernia History of myelofibrosis History of depression Anemia BERNIE (obstructive sleep apnea) Biliary dyskinesia CKD stage 3 due to type 2 diabetes mellitus Chronic myeloproliferative disease History of gastritis GERD (gastroesophageal reflux disease) Diabetic neuropathy associated with type 2 diabetes mellitus Diabetic nephropathy Morbid obesity due to excess calories Hypertension Diabetes type 2, controlled Asthma Vitamin B12 deficiency Dyslipidemia Surgical History Bone marrow replaced by transplant History of resection of meningioma H/O stem cell transplant Hx of colonoscopy Hx of breast reduction, elective Hx of esophagogastroduodenoscopy History of partial hysterectomy Family History Father Heart problem HTN (hypertension) Mother Diabetes Family/Other Diabetes HTN (hypertension) Heart problem Sister Cancer Social History Household Members: None Housing: Apartment Are you a primary resident care technician to a significant other at home: No Do you presently have visiting nurse or other home services: No Alcohol intake: never Patient Tobacco Use Status: Never used Tobacco Advance Directives Date on File: 03/24/16 service: No Current occupational status: disabled Review of Systems Const All systems reviewed & are unremarkable except as noted in HPI and below Physical Exam Vital Signs: Last Vital Signs Pulse 74 08/04/23 15:35 BP 134/80 08/04/23 15:35 Pulse Ox 98 08/04/23 15:35 Oxygen Delivery Method Room Air 08/04/23 15:35 BMI result Body Mass Index 37.6 Assessment & Plan Assessment & Plan (1) BERNIE (obstructive sleep apnea): Comment: Severe degree of sleep apnea. The AHI was 73/hr and oxygen kenny was 74%. Code(s): G47.33 - Obstructive sleep apnea (adult) (pediatric) Plan New CPAP prescription sent to [facility]. Advised patient to start APAP at [id number]. Stressed compliance, use CPAP nightly and more than 4 hrs. Coding Level of Care Code New Pt Level 3 (49755) Diagnoses BERNIE (obstructive sleep apnea) G47.33
[2023-08-04 15:35] VITALS: BP 134/80; PULSE 74; O2SAT 98; BMI 37.6
== END 2023-08-04 16:19 | disposition home or self-care (01) ==
PROVIDERS: PCP Internal Medicine; Visit Provider Nurse Practitioner Family
DX: G47.33 Obstructive sleep apnea (adult) (pediatric) (principal)
CPT/HCPCS: 99213

== ENCOUNTER → 2023-08-04 14:40 | Outpatient (BNVA) | payer MEDICAID, SELFPAY | PROVIDERS: PCP Internal Medicine; Visit Provider Nurse Practitioner Family | DX: G47.33 Obstructive sleep apnea (adult) (pediatric) (principal) | CPT/HCPCS: 99212 ==

== ENCOUNTER 2023-08-21 13:44 | Outpatient (REF) | payer MEDICAID, SELFPAY ==
[2023-08-21 16:35] LABS: Cholesterol 268 mg/dL (<200); HDL Cholesterol 50 mg/dL (>40); Triglycerides 552 mg/dL (<150); Uric Acid 9.3 mg/dL (2.4-5.7)
== END 2023-08-21 13:45 | disposition home or self-care (01) ==
LOC: HO.HHCL 13:44
PROVIDERS: Visit Provider Internal Medicine
DX: M1A.9XX0 Chronic gout, unspecified, without tophus (tophi) (principal); I10 Essential (primary) hypertension
CPT/HCPCS: 36415; 80061; 84550

== ENCOUNTER 2023-08-26 14:02 | Outpatient (REF) | payer MEDICAID, SELFPAY ==
--- NOTE | ~2023-08-26 | MM_ITS ---
EXAMINATION: MM SCREENING DIGITAL BREAST TOMOSYNTHESIS, BILATERAL CLINICAL INFORMATION: Screening. Asymptomatic. The patient is status post bilateral breast reduction. COMPARISON: Mammography: This study is compared with prior exams dating back to 2019. TECHNIQUE: Digital breast tomosynthesis is performed in both the craniocaudal and mediolateral oblique views along with computer-aided detection (CAD). Synthesized 2D images are generated from the tomosynthesis. FINDINGS: There are scattered areas of fibroglandular density (ACR BI-RADS breast composition Category b). There are no significant masses, abnormal calcifications, or other abnormalities. Few, coarse, retroareolar calcifications are present in the left breast. These are benign and unchanged from prior studies. There are post reduction changes in each breast. MM/MM tomosynthesis screening BI IMPRESSION: No mammographic evidence of malignancy. ASSESSMENT: BI-RADS BI-RADS 2 - Benign Findings RECOMMENDATION: Routine annual mammography screening. 1 year F/U This examination should not preclude the clinical evaluation of a suspicious palpable abnormality. This patient's information was entered into a reminder system with a target due date for their next mammogram.
== END 2023-08-26 14:03 | disposition home or self-care (01) ==
LOC: HO.MAMMO 14:02
PROVIDERS: PCP Internal Medicine; Visit Provider Internal Medicine
DX: Z12.31 Encounter for screening mammogram for malignant neoplasm of breast (principal)
CPT/HCPCS: 77063; 77067

== ENCOUNTER → 2023-08-26 14:45 | Outpatient (BNV) | payer MEDICAID, SELFPAY | PROVIDERS: PCP Internal Medicine; Visit Provider Radiology Diagnostic Radiology | DX: Z12.31 Encounter for screening mammogram for malignant neoplasm of breast (principal) | CPT/HCPCS: 77063; 77067 ==

== ENCOUNTER 2024-01-23 10:45 | Outpatient (REF) | payer MEDICAID, SELFPAY ==
--- NOTE | ~2024-01-23 | XR_ITS ---
EXAMINATION: XR WRIST, RIGHT CLINICAL INFORMATION: Right wrist pain. COMPARISON: April 08, 2023 TECHNIQUE: PA, lateral, and oblique views of the right wrist. FINDINGS: Alignment is anatomic with normal joint spaces. No displaced fracture or dislocation. No bony erosions or abnormal soft tissue calcifications. XR/XR wrist RT min 3V IMPRESSION: No acute abnormality. Electronically signed by: Toni Linton MD 01/23/2024 01:02 PM EDT
== END 2024-01-23 10:46 | disposition home or self-care (01) ==
LOC: HO.HHCX 10:45
PROVIDERS: Visit Provider Family Medicine
DX: M25.531 Pain in right wrist (principal)
CPT/HCPCS: 73110

== ENCOUNTER 2024-03-18 13:12 | Emergency (ER) | payer MEDICAID, SELFPAY ==
--- NOTE | ~2024-03-18 | CT_ITS ---
EXAMINATION: CT ABDOMEN AND PELVIS WITHOUT CONTRAST CLINICAL INFORMATION: Right-sided abdominal pain, flank pain COMPARISON: CT abdomen pelvis 12/28/2022 TECHNIQUE: Multidetector volumetric imaging was performed from the superior aspect of the liver through the pubic symphysis. Sagittal and coronal reformatted images were obtained on the technologist's workstation. This CT examination was performed using dose optimization techniques as appropriate, variously including the following: *Automated exposure control *Adjustment of mA and/or kV according to patient size (this includes techniques or standardized protocols for targeted exams where dose is matched to indication/reason for exam; i.e. extremities or head) *Use of iterative reconstruction technique DLP: 876 mGy-cm FINDINGS: LUNG BASES: The visualized lung bases are unremarkable. There is some right basilar atelectasis/scarring. Compare LIVER, GALLBLADDER, AND BILIARY TREE: The liver is markedly enlarged at 25.3 cm in cephalocaudad dimension with decreased attenuation consistent with min hepatic steatosis. No focal hepatic lesion or biliary ductal dilatation is present. The gallbladder is unremarkable with no evidence of radiopaque gallstones, gallbladder wall thickening, or obvious pericholecystic inflammatory changes. PANCREAS: Unremarkable. SPLEEN: Unremarkable. ADRENAL GLANDS: Unremarkable. KIDNEYS AND URETERS: The kidneys are normal in size, shape, and attenuation. There is a 4 mm nonobstructing calculus in the mid left kidney. No hydronephrosis, hydroureter, or calculi seen. No perinephric stranding. A benign right lower pole 2.2 cm Bosniak class I renal cyst is noted which requires no additional imaging or follow up. No solid renal masses are seen. BLADDER: Unremarkable. GASTROINTESTINAL TRACT: There is a small hiatal hernia present. The The small and large bowel are unremarkable. The appendix is unremarkable. ABDOMINAL WALL: No significant hernia is appreciated. LYMPH NODES: No retroperitoneal lymphadenopathy. VASCULAR: Minimal calcific atherosclerotic changes are present in the aorta and iliac vessels. There is no evidence of an abdominal aortic aneurysm. PELVIC VISCERA: The uterus is not seen. An abnormal adnexal mass is not detected. No free intraperitoneal fluid is present. OSSEOUS STRUCTURES: Unremarkable. Degenerative changes are seen at L5-S1 CT/CT abdomen pelvis wo IV con IMPRESSION: 1. A cause for the patient's right-sided abdominal pain and flank pain has not been found. 2. Incidental note made of an enlarged fatty liver, 4 mm nonobstructing left renal calculus, small hiatal hernia, benign right renal cyst which needs no follow-up and degenerative changes L5-S1. Fleischner guidelines were followed. Electronically signed by: Daron Olmstead MD 03/18/2024 10:28 PM [facility]
[2024-03-18 13:55] VITALS: BP 133/80; PULSE 79; RESP 20; TEMP 36.3; O2SAT 98; BMI 37.7
--- NOTE | 2024-03-18 14:04 | ED.ABDPAIN ---
HPI - Abdominal Pain General Chief Complaint: Abdominal Pain Stated Complaint: abd pain-back pain-?kidney Time Seen by Provider: 03/18/24 21:30 Source: patient Mode of arrival: ambulatory Limitations: language barrier (Marshallese speaking only, [facility] chronograph operator used) History of Present Illness ED Provider: Dr. Rickey Horton HPI narrative: 59-year-old female with a history of obstructive sleep apnea, osteoarthritis, abdominal pain, GERD, anemia, chronic myeloproliferative disorder, diabetes, hypertension, dyslipidemia who presents emergency department for evaluation of 4 days of abdominal pain. Patient states that her pain came on gradually. She runs her hand across her upper abdomen and states she has a constant burning sensation that goes down the right side of her abdomen into her right flank. She states the pain has been constant for 4 days but waxes and wanes in intensity. The pain is 10/10 at the time of evaluation. The patient had chills but no fever. She denied nausea, vomiting or diarrhea. She states she had similar pain a year ago and it was secondary to a kidney infection. She states she has noted urinary frequency and dysuria. Patient did take tramadol and Tylenol with only minimal relief of her pain. Related Data Home Medications ?Medication ?Instructions ?Recorded ?Confirmed citalopram 40 mg tablet 40 mg PO DAILY 02/15/20 06/03/23 cholecalciferol (vitamin D3) 25 25 mcg PO DAILY 02/16/20 06/03/23 mcg (1,000 unit) capsule mirtazapine 15 mg tablet 30 mg PO BEDTIME PRN Sleep 11/28/20 06/03/23 albuterol sulfate 2.5 mg/3 mL 2.5 mg inhalation TID 10/07/21 06/03/23 (0.083 %) solution for nebulization albuterol sulfate 90 mcg/actuation 2 puff inhalation Q4-6H PRN 10/07/21 06/03/23 aerosol inhaler (ProAir HFA) Shortness Of Breath diclofenac sodium 1 % topical gel 2 g topical BID 10/07/21 06/03/23 fluticasone propionate 50 2 spray intranasal DAILY PRN 10/07/21 06/03/23 mcg/actuation nasal Allergy Symptoms spray,suspension lidocaine 5 % topical patch 1 patch topical DAILY 10/07/21 06/03/23 (Lidoderm) loratadine 10 mg tablet 10 mg PO DAILY PRN Allergy Symptoms 10/07/21 06/03/23 ruxolitinib 5 mg tablet (Jakafi) 5 mg PO BID 10/07/21 06/03/23 amlodipine 5 mg tablet (Norvasc) 10 mg PO DAILY 02/18/23 06/03/23 cyanocobalamin (vitamin B-12) 1,000 mcg IM QMONTH 02/18/23 06/03/23 1,000 mcg/mL injection solution fluticasone propionate 110 1 puff inhalation Q12H 02/18/23 06/03/23 mcg/actuation HFA aerosol inhaler (Flovent HFA) lisinopril 5 mg tablet 5 mg PO DAILY 02/18/23 06/03/23 pravastatin 40 mg tablet 40 mg PO BEDTIME 02/18/23 06/03/23 Previous Rx's ?Medication ?Instructions ?Recorded metformin 500 mg tablet 500 mg PO BIDWM #60 tabs 01/18/22 sitagliptin phosphate 50 mg tablet 50 mg PO DAILY 90 days #90 tabs 01/18/22 (Januvia) famotidine 40 mg tablet (Pepcid) 40 mg PO BEDTIME 30 days #30 tabs 07/26/22 pantoprazole 40 mg tablet,delayed 40 mg PO DAILY@0630 #30 tabs 07/26/22 release (Protonix) ferrous sulfate 325 mg (65 mg 325 mg PO DAILY #30 tabs 08/08/22 iron) tablet acetaminophen 325 mg tablet 650 mg (2 x 325 mg) PO Q6H PRN 03/12/23 Pain, Mild (Pain Scale 1-3) 30 days #240 tabs docusate sodium 100 mg capsule 100 mg PO BID 14 days #28 caps 03/12/23 enoxaparin 40 mg/0.4 mL 40 mg (0.4 mL) subcut Q24H 35 days 03/12/23 subcutaneous syringe #14 mL oxycodone 5 mg tablet 5 mg PO Q4H PRN Pain, Severe (Pain 03/12/23 Scale 7-10) 7 days #42 tabs walker #1 ea 03/24/23 colchicine 0.6 mg tablet 0.6 mg PO DAILY #30 tabs 04/08/23 ibuprofen 600 mg tablet 600 mg PO Q6H PRN fever or pain 04/08/23 #30 tabs prednisone 20 mg tablet 40 mg (2 x 20 mg) PO DAILY #10 tabs 04/08/23 allopurinol 100 mg tablet 100 mg PO DAILY #90 tabs 06/03/23 ruxolitinib 5 mg tablet (Jakafi) 5 mg PO BID #180 tabs 12/15/23 morphine 15 mg immediate release 15 mg PO Q8H PRN pain #10 tabs 03/19/24 tablet Allergies Allergy/AdvReac Type Severity Reaction Status Date / Time aspirin [ASPIRIN] Allergy Intermediate SWELLING/ITCHING, Verified 03/18/24 13:57 rash Penicillins Allergy Intermediate ITCHING Verified 03/18/24 13:57 vancomycin [VANCOMYCIN] AdvReac Intermediate RED MAN Verified 03/18/24 13:57 SYNDROME PER MD Review of Systems Review of Systems Yes all other systems are reviewed and are negative [facility] Past Medical History Medical History (Updated 03/19/24 @ 00:16 by Rickey Horton MD) BERNIE (obstructive sleep apnea) Acute hypoxic respiratory failure Morbid obesity Anemia Hx of radiation therapy Hx of transfusion of packed red blood cells COVID-19 vaccine series completed Osteoarthritis of wrist Obesity due to excess calories Osteoarthritis of knees, bilateral Hiatal hernia History of myelofibrosis History of depression Anemia BERNIE (obstructive sleep apnea) Biliary dyskinesia CKD stage 3 due to type 2 diabetes mellitus Chronic myeloproliferative disease History of gastritis GERD (gastroesophageal reflux disease) Diabetic neuropathy associated with type 2 diabetes mellitus Diabetic nephropathy Morbid obesity due to excess calories Hypertension Diabetes type 2, controlled Asthma Vitamin B12 deficiency Dyslipidemia Surgical History Bone marrow replaced by transplant History of resection of meningioma H/O stem cell transplant Hx of colonoscopy Hx of breast reduction, elective Hx of esophagogastroduodenoscopy History of partial hysterectomy Family History Family History Father Heart problem HTN (hypertension) Mother Diabetes Family/Other Diabetes HTN (hypertension) Heart problem Sister Cancer Social History Social History Household Members: None Housing: Apartment Are you a primary youth care professional to a significant other at home: No Do you presently have visiting nurse or other home services: No Alcohol intake: never Patient Tobacco Use Status: Never used Tobacco Smoked in Last 30 Days: No Use of substances other than those prescribed or required for medical reasons: No Advance Directives: No Advance Directives Information Provided: Yes Advance Directives Date on File: 03/24/16 Patient : No service: No Current occupational status: disabled Physical Exam ED Vital Signs: Vital Signs - 24 hr 03/18/24 13:55 03/18/24 20:36 Temperature 97.3 F 97.9 F Pulse Rate 79 68 Respiratory Rate 20 20 Blood Pressure 133/80 128/73 Pulse Oximetry 98 98 Oxygen Delivery Method Room Air Room Air BMI result Body Mass Index 37.7 Vital signs were normal Exam: General: Awake, alert in no distress, weight was 109.3 kg, elevated BMI 37.7 kg per m2 Head: Normocephalic, atraumatic EENT: PERRL, Lids normal, sclera normal, conjunctiva normal, nose normal , ears normal, throat without erythema or exudates Neck: Supple, no adenopathy Lung: breath sounds symmetric, no wheezing, rales or rhonchi Chest: symmetric movement, nontender Heart: regular rate and rhythm, normal S1, S2 no murmurs or rubs Abdomen: Obese, moderate epigastric and right upper quadrant tenderness, mild to moderate right lower quadrant tenderness, normoactive bowel sounds, no rebound Back: no vertebral tenderness, moderate right CVA tenderness Extremities: no deformities, moves all extremities symmetrically Neuro: Awake, alert, oriented, normal speech, cranial nerves intact, moves all extremities symmetrically Psych: Pleasant, cooperative Course Course Course Narrative: This is a Rapid Medical Exam performed in triage by Majo Cheatham PA-C. Full HPI, ROS and PE to be performed by primary ED provider. 59-year-old female with a past medical history of BERNIE, alopecia, GERD, anemia, asthma, HTN, diabetes presenting to the ED c/o diffuse abdominal pain radiating to back x 4 days. Reports urine is hot. Denies nausea/vomiting or diarrhea PE: Abdomen soft diffusely tender Plan: Labs, UA Medical Decision Making Medical Decision Making MDM Narrative: 59-year-old female with a history of obstructive sleep apnea, osteoarthritis, abdominal pain, GERD, anemia, chronic myeloproliferative disorder, diabetes, hypertension, dyslipidemia who presents emergency department for evaluation of 4 days of right-sided and epigastric pain with right flank pain x4 days, pain has been constant but waxes and wanes in intensity he is currently 10/10 associated with chills, frequency and dysuria. Vital signs were normal. Physical examination did reveal epigastric, right upper quadrant right lower quadrant tenderness. She also had right flank tenderness. Differential diagnosis: ?Includes but is not limited to pancreatitis, diverticulitis, cholecystitis, appendicitis, urinary tract infection, pyelonephritis, renal colic, ureteral stone, anemia, electrolyte abnormalities Course: 21:55 My interpretation patient's laboratory evaluation is as follows: Normocytic anemia with an H&H of 10 and 29.6. . Elevated BUN and creatinine 19 and 1.93 with a GFR of 26-similar to her baseline. AST and ALT elevated 43 and 50. Lipase was normal. Laboratory evaluation was nonspecific and non diagnostic for the patient's abdominal pain. I ordered a CT scan of the patient's abdomen pelvis without IV contrast to further evaluate her pain. The patient was treated with normal saline IV x1 L, Zofran 4 mg IV and morphine 4 mg IV. 00:13 CT scan of the abdomen pelvis without IV contrast did not reveal a clear cause for the patient's pain. Patient was given another dose of morphine 4 mg IV. At this time the patient will be discharged home and I did give her printed and verbal instructions and abdominal pain. The patient was advised to stop taking her tramadol and she was given a short course of morphine 15 mg every 6 hours as needed for pain. Admission/Observation Consideration of admission/observation: Escalation of care including admission/observation considered (Yes) Lab Data MDM Lab Attestation statement: I reviewed the patient's lab results. 03/18/24 14:49 03/18/24 14:49 Labs: Lab Results 03/18/24 Range/Units 14:49 WBC 7.4 (4.8-10.8) X10*3/uL RBC 3.35 L (4.20-5.50) X10*6/uL Hgb 10.0 L (12.0-16.0) g/dl Hct 29.6 L (37.0-47.0) % MCV 88.4 (80.0-98.0) fL MCH 29.9 (27.0-33.0) pg MCHC 33.8 (31.0-35.0) g/dl RDW 13.1 (11.0-16.0) % Plt Count 250 (160-400) X10*3/uL MPV 9.2 L (9.4-12.3) fL Immature Gran % (Auto) 0.3 (0.0-0.4) % Neut % (Auto) 59.0 (45-73) % Lymph % (Auto) 29.6 (20-40) % [place] % (Auto) 9.5 (2-11) % Eos % (Auto) 1.5 (0-4) % Baso % (Auto) 0.1 (0-2) % Lymph # (Auto) 2.2 (1.2-4.9) X10*3/uL [place] # (Auto) 0.7 (0.1-1.2) X10*3/uL Eos # (Auto) 0.1 (0.0-0.4) X10*3/uL Baso # (Auto) 0.0 (0.0-0.2) X10*3/uL Abs Immat Gran (auto) 0.02 (0.00-0.03) X10*3/uL Absolute Neuts (auto) 4.4 (2.0-8.3) x10*3/uL Absolute Nucleated RBC 0.000 (0.0-0.012) X10*3/uL Nucleated RBC % (auto) 0.0 (0.0-0.2) /100WBC Sodium 139 (135-145) mmol/L Potassium 4.5 (3.3-5.1) mmol/L Chloride 106 (96-108) mmol/L Carbon Dioxide 26 (22-29) mmol/L Anion Gap 12 (12-20) BUN 19 H (9-16) mg/dL Creatinine 1.93 H (0.5-1.4) mg/dL Estim Creat Clear Calc 38.9 Estimated GFR 26 Random Glucose 101 (60-115) mg/dL Calcium 9.0 (8.4-10.2) mg/dL Magnesium 1.8 (1.6-2.6) mg/dL Total Bilirubin 0.5 (0.0-1.0) mg/dL Direct Bilirubin 0.1 (0.0-0.5) mg/dL AST 43 H (5-31) U/L ALT 50 H (0-31) U/L Alkaline Phosphatase 72 (39-117) U/L Total Protein 7.5 (6.5-8.0) g/dL Albumin 4.5 (3.5-5.0) g/dL Lipase 31 (8-78) U/L Urine Color Yellow Urine Appearance Clear Urine pH 5.5 (5.0-9.0) Ur Specific [place] 1.015 (1.005-1.025) Urine Protein 300 (3+) H (Neg-Trace) mg/dL Urine Glucose (UA) Negative (Negative) mg/dL Urine Ketones Negative (Negative) mg/dL Urine Blood Small (1+) H (Negative) Urine Nitrite Negative (Negative) Ur Leukocyte Esterase Negative (Negative) Urine RBC 0-2 (0-2) /HPF Urine WBC 0-5 (0-5) /HPF Ur Squamous Epith Cells 0-2 (0-2) /HPF Urine Bacteria None Seen (None Seen) Hyaline Casts 3-5 (0-2) /LPF Radiology Impression Discussion of test interpretation with radiology: I have reviewed the radiologist's reading. Radiologist Impression: CT abdomen pelvis wo IV con IMPRESSION: 1. A cause for the patient's right-sided abdominal pain and flank pain has not been found. 2. Incidental note made of an enlarged fatty liver, 4 mm nonobstructing left renal calculus, small hiatal hernia, benign right renal cyst which needs no follow-up and degenerative changes L5-S1. Fleischner guidelines were followed. Electronically signed by: Daron Olmstead MD 03/18/2024 10:28 PM [facility] Dictated By: Daron Olmstead MD External Record Review External record reviewed: Inpatient record Prescription Management I considered prescription management with: Pain Medication (Morphine) Chronic Conditions Patient?s care impacted by: Diabetes and Hypertension Discharge Plan Discharge Clinical Impression: Abdominal pain Qualifiers: Abdominal location: generalized Qualified Code(s): R10.84 - Generalized abdominal pain Patient Disposition: Home, Self-Care Instructions: Abdominal Pain (ED) Additional Instructions: Your blood work was unremarkable and unchanged from previous labs. The CT scan of your abdomen pelvis without IV contrast did not reveal a clear cause of your pain. I want you to stop taking your tramadol and take morphine 15 mg pills, 1 pill every 6 hours as needed for pain. Follow-up with your doctor in 2 days. Please return to the emergency department if your symptoms get worse or if you develop any symptoms that are concerning to you. Prescriptions: New morphine 15 mg tablet 15 mg PO Q8H PRN (Reason: pain) Qty: 10 0RF Rx Instructions: Partial Fill upon patient request. No Action metformin 500 mg tablet 500 mg PO BIDWM Qty: 60 4RF Januvia 50 mg tablet 50 mg PO DAILY 90 Days Qty: 90 0RF Rx Instructions: Dose reduced based on GFR ferrous sulfate 325 mg (65 mg iron) tablet 325 mg PO DAILY Qty: 30 6RF citalopram 40 mg Tablet 40 mg PO DAILY allopurinol 100 mg Tablet 100 mg PO DAILY Qty: 90 4RF Jakafi 5 mg Tablet 5 mg PO BID Qty: 180 4RF lidocaine [Lidoderm] 5 % Adhesive Patch,Medicated 1 patch TOPICAL DAILY Rx Instructions: leave on most painful area for up to 12 hrs fluticasone propionate 50 mcg/actuation [place],Suspension 2 spray INTRANASAL DAILY PRN (Reason: Allergy Symptoms) Rx Instructions: administer into each nostril loratadine 10 mg Tablet 10 mg PO DAILY PRN (Reason: Allergy Symptoms) diclofenac sodium 1 % Gel 2 g TOPICAL BID Rx Instructions: apply to single elbow, wrist or hand; for hand includes palm/fingers/back of hand albuterol sulfate 2.5 mg /3 mL (0.083 %) solution for nebulization 2.5 mg inhalation TID albuterol sulfate [ProAir HFA] 90 mcg/actuation Hfa Aerosol Inhaler 2 puff INHALATION Q4-6H PRN (Reason: Shortness Of Breath) Jakafi 5 mg Tablet 5 mg PO BID amlodipine [Norvasc] 5 mg tablet 10 mg PO DAILY cyanocobalamin (vitamin B-12) 1,000 mcg/mL Solution 1,000 mcg IM QMONTH lisinopril 5 mg Tablet 5 mg PO DAILY pravastatin 40 mg Tablet 40 mg PO BEDTIME fluticasone propionate [Flovent HFA] 110 mcg/actuation Hfa Aerosol Inhaler 1 puff INHALATION Q12H acetaminophen 325 mg Tablet 650 mg PO Q6H PRN (Reason: Pain, Mild (Pain Scale 1-3)) 30 Days Qty: 240 0RF docusate sodium 100 mg Capsule 100 mg PO BID 14 Days Qty: 28 0RF oxycodone 5 mg Tablet 5 mg PO Q4H PRN (Reason: Pain, Severe (Pain Scale 7-10)) 7 Days Qty: 42 0RF Rx Instructions: Partial Fill upon patient request. enoxaparin 40 mg/0.4 mL Syringe 40 mg subcut Q24H 35 Days Qty: 14 0RF prednisone 20 mg tablet 40 mg PO DAILY Qty: 10 0RF colchicine 0.6 mg tablet 0.6 mg PO DAILY Qty: 30 0RF ibuprofen 600 mg tablet 600 mg PO Q6H PRN (Reason: fever or pain) Qty: 30 0RF cholecalciferol (vitamin D3) 25 mcg (1,000 unit) capsule 25 mcg PO DAILY mirtazapine 15 mg tablet 30 mg PO BEDTIME PRN (Reason: Sleep) famotidine [Pepcid] 40 mg tablet 40 mg PO BEDTIME 30 Days Qty: 30 6RF pantoprazole [Protonix] 40 mg tablet,delayed release (DR/EC) 40 mg PO DAILY@0630 Qty: 30 6RF (ALVA) najma Misbecky See Rx Instructions .MEDSUPPLY Qty: 1 0RF Rx Instructions: Abdi Front jack yao Print Language: Marshallese
[2024-03-18 15:00] LABS: MANUAL DIFF FLAG NO
[2024-03-18 15:02] LABS: Basophils Percent Auto 0.1 % (0-2); Eosinophils Absolute Auto 0.1 X10*3/uL (0.0-0.4); Eosinophils Percent Auto 1.5 % (0-4); Hematocrit 29.6 % (37.0-47.0); Imm Gran Abs Auto 0.02 X10*3/uL (0.00-0.03); Imm Gran Pct Auto 0.3 % (0.0-0.4); Lymphocytes Absolute Auto 2.2 X10*3/uL (1.2-4.9); Lymphocytes Percent Auto 29.6 % (20-40); Mean Corpuscular HGB Conc 33.8 g/dl (31.0-35.0); Mean Corpuscular Hemoglobin 29.9 pg (27.0-33.0); Mean Corpuscular Volume 88.4 fL (80.0-98.0); Mean Platelet Volume 9.2 fL (9.4-12.3); Monocytes Absolute Auto 0.7 X10*3/uL (0.1-1.2); Monocytes Percent Auto 9.5 % (2-11); Neutrophils Absolute Auto 4.4 x10*3/uL (2.0-8.3); Platelet Count 250 X10*3/uL (160-400); Red Blood Count 3.35 X10*6/uL (4.20-5.50); Red Cell Distribution Width 13.1 % (11.0-16.0); White Blood Count 7.4 X10*3/uL (4.8-10.8)
[2024-03-18 15:03] LABS: Appearance Urine Clear; Color Urine Yellow; Glucose Urine UA Negative (Negative); Leukocyte Esterase Urine Negative (Negative); Nitrite Urine Negative (Negative); PH 5.5 (5.0-9.0); Specific Gravity - Urine 1.015 (1.005-1.025); UMIC TRIGGER UACC YES; Urine Blood Small (1+) (Negative); Urine Ketones Negative (Negative); Urine Protein 300 (3+) mg/dL (Neg-Trace)
[2024-03-18 15:17] LABS: Bacteria Urine None Seen (None Seen); RBC Urine 0-2 /HPF (0-2); Squamous Epithelial Cell Urine 0-2 /HPF (0-2); WBC Urine 0-5 /HPF (0-5)
[2024-03-18 15:26] LABS: Alanine Aminotransferase 50 U/L (0-31); Albumin Level 4.5 g/dL (3.5-5.0); Alkaline Phosphatase 72 U/L (39-117); Anion Gap 12 (12-20); Aspartate Amino Transferase 43 U/L (5-31); Bilirubin Direct 0.1 mg/dL (0.0-0.5); Bilirubin Total 0.5 mg/dL (0.0-1.0); Blood Urea Nitrogen 19 mg/dL (9-16); Carbon Dioxide 26 mmol/L (22-29); Chloride 106 mmol/L (96-108); Creatinine Clr Calc Pharmacy 38.9; Estimated Glomerular Filt Rate 26; Glucose Random 101 mg/dL (60-115); Lipase 31 U/L (8-78); Magnesium 1.8 mg/dL (1.6-2.6); Potassium 4.5 mmol/L (3.3-5.1); Sodium 139 mmol/L (135-145); Total Protein 7.5 g/dL (6.5-8.0)
[2024-03-18 20:36] VITALS: BP 128/73; PULSE 68; RESP 20; TEMP 36.6; O2SAT 98
[2024-03-18] MEDS: 0.9 % Sodium Chloride 1,000 ML 999 ML IV (22:36)
[2024-03-18] MEDS: Morphine Sulfate 4 MG/ML CARTRIDGE IVPUSH (22:37)
[2024-03-18] MEDS: ondansetron HCL 4 MG/2 ML VIAL IVPUSH (22:37)
--- NOTE | 2024-03-18 22:40 | PC.NURSE ---
Iv placed by NEGAR Nicholas by Factor 14 sound, medicated per jul, notified NEGAR Davis
[2024-03-18 23:01] VITALS: BP 134/68; PULSE 64; RESP 20; TEMP 36.7; O2SAT 94
[2024-03-19] MEDS: Morphine Sulfate 4 MG/ML CARTRIDGE IVPUSH (00:26)
[2024-03-19 00:28] VITALS: BP 112/64; PULSE 64; RESP 18; TEMP 36.4; O2SAT 94
[2024-03-19 00:56] VITALS: BP 112/64; PULSE 64; RESP 18; TEMP 36.4; O2SAT 94
== END 2024-03-19 00:57 | disposition home or self-care (01) ==
PROVIDERS: Physician Assistant; Emergency Provider Emergency Medicine Emergency Medical Services; PCP Internal Medicine
DX: R10.2 Pelvic and perineal pain (principal); M54.50 Low back pain, unspecified; I10 Essential (primary) hypertension; R11.0 Nausea; Z79.899 Other long term (current) drug therapy
CPT/HCPCS: 36415; 74176; 80048; 80076; 81001; 81003; 83690; 83735; 85025; 96361; 96374; 96375; 96376; 99284; J2270; J2405

== ENCOUNTER 2024-06-04 09:56 | Outpatient (REF) | payer MEDICAID, SELFPAY ==
--- OUTSIDE RECORDS SUMMARY | 2024-06-04 10:33 | XMS_ITS | Encounter Summary ---
Author Organization [employer] Address [address] [place] [address] Care Team Providers Care Outside Food Server Name Role Phone Kalpana Baptiste MD Primary Care Provide r Reason for Visit * Reason Comments Med Refill Encounter Details Date Type Department Care Team ([facility] st Contact Info) Description 07/28/2023 Refill [facility] [address], [place] [phone] Kalpana Baptiste MD [address] [place] [address] Moderate persistent asthma without complication; Chronic gout of multiple sites, unspecified cause; Primary osteoarthritis of both knees Social History Tobacco Use Types Packs/Day Years Used Date Smoking Tobacco: Former Cigarettes Passive Smoke Exposure: Never Smokeless Tobacco: Never Alcohol Use Standard Drinks/Week Comments Never 0 (1 standard drink = 0.6 oz pur e alcohol) Depression Answer Date Recorded Patient Health Questionnaire-9 Score 0 08/21/2022 Housing Stability Answer Date Recorded What is your housing situation today? I have [place]a [place] 02/18/[address] you li ve. Do you have problems with any of the following? None of the above 02/18/2023 Food Insecurity Answer Date Recorded Within the past 12 months, y ou worried that your food would run out before you got money to buy more: Never True 02/18/2023 Within the past 12 months,th e food you bought just didn't last and you didn't have enough money to get more: Never True Transportation Answer Date Recorded In the past 12 months, has l ack of transportation kept you from medical appts, meetings, work or from getting things needed for daily living? No 02/18/2023 Utilities Answer Date Recorded In the past 12 months, has t he electric, gas, oil or water company threatened to shut off services in your home? No 02/18/2023 Depression Answer Date Recorded Patient Health Questionnaire-2 Score 0 08/21/2022 Comments Unknown Sex and Gender Information Value Date Recorded Sex Assigned at Female 03/04/2022 10:14 AM EDT Legal Sex Female 10:14 AM EDT Gender Identity Female 03/04/2022 10:14 AM EDT Sexual Orientation Straight 03/04/2022 10 :14 AM EDT documented as of this encounter Plan of Treatment Upcoming Encounters Date Type Department Care Team (Late st Contact Info) Description 06/22/2024 1:00 PM EST Office Visit [facility] [address] [place] [address] Jonathon, Beata, OD [address] [place] [address] 08/05/2024 1:00 PM EDT Office Visit [facility] [address] [place] [address] Kalpana Baptiste MD [address] [place] [phone] 08/12/2024 11:30 AM EDT Clinical Support [facility] [address] [place] [phone] Amanda Waldrop RN documented as of this encounter Visit Diagnoses Diagnosis Moderate persistent asthma without complication Chronic gout of multiple sites, unspecified cause Primary osteoarthritis of both knees documented in this encounter Additional Health Concerns Assessment Noted Time PHQ-9 Depression Total Score: 0 08/22/19 23 10:06 AM EDT documented as of this encounter Care Teams Outside Food Server Relationship Specialty Start Date End Date Kalpana Baptiste MD [address] [place] [phone] PCP - General Family Medicine 06/14/20 documented as of this encounter
--- OUTSIDE RECORDS SUMMARY | 2024-06-04 10:33 | XMS_ITS | Encounter Summary ---
Author Organization [employer] Address [address] [facility] [address] 7t [place] [address] Care Team Providers Care Jeeper Operator Name Role Phone Kalpana Baptiste MD Primary Care Provide r Reason for Visit * Reason Comments Med Refill Encounter Details Date Type Department Care Team ([facility] st Contact Info) Description 07/24/2023 Refill [facility] MEDICINE 230 [place], [place] [phone] Kalpana Baptiste MD 230 [place] [address] Moderate persistent asthma without complication; Primary osteoarthritis of both knees; Chronic gout of multiple sites, unspecified cause Social History Tobacco Use Types Packs/Day Years [...] Description 06/22/2024 1:00 PM EST Office Visit [facility] OPTOMETRY 267 [place] [address] Jonathon, Beata, OD 230 [place] [address] 08/05/2024 1:00 PM EDT Office Visit [facility] MEDICINE 230 [place] [address] Kalpana Baptiste MD [address] [place] [address] 08/12/2024 11:30 AM EDT Clinical Support [facility] MEDICINE [address] [place] [phone] Amanda Waldrop RN documented as of this encounter Visit Diagnoses Diagnosis Moderate persistent asthma without complication Primary osteoarthritis of both knees Chronic gout of multiple sites, unspecified cause documented in this encounter Additional Health Concerns Assessment Noted Time PHQ-9 Depression Total Score: 0 08/22/19 23 10:06 AM EDT documented as of this encounter Care Teams Jeeper Operator Relationship Specialty Start Date End Date Kalpana Baptiste MD [address] [place] [phone] PCP - General Family Medicine 06/14/20 documented as of this encounter
--- OUTSIDE RECORDS SUMMARY | 2024-06-04 10:33 | XMS_ITS | Encounter Summary ---
Author Organization [employer] Address [address] [facility] [address] 7t [place] [address] Care Team Providers Care Polo Coach Name Role Phone Kalpana Baptiste MD Primary Care Provide r Reason for Visit * Reason Comments Med Refill Encounter Details Date Type Department Care Team ([facility] st Contact Info) Description 07/24/2023 Refill [facility] MEDICINE 230 [place], [place] [phone] Caryl Biggs MD 230 [place] [address] Chronic tension-type headache, not intractable Social History Tobacco Use Types Packs/Day Years [...] 1:00 PM EST Office Visit [facility] OPTOMETRY [address] [place], [place] [phone] Jonathon, Beata, OD 230 [place] [address] 08/05/2024 1:00 PM EDT Office Visit [facility] MEDICINE 230 [place] [address] Kalpana Baptiste MD 230 [place] [address] 08/12/2024 11:30 AM EDT Clinical Support [facility] MEDICINE [address] [place] [phone] Amanda Waldrop RN documented as of this encounter Visit Diagnoses Diagnosis Chronic tension-type headache, not intractable Chronic tension type headache documented in this encounter Additional Health Concerns Assessment Noted Time PHQ-9 Depression Total Score: 0 08/22/19 23 10:06 AM EDT documented as of this encounter Care Teams Polo Coach Relationship Specialty Start Date End Date Kalpana Baptiste MD [address] [place] [address] [phone] PCP - General Family Medicine 06/14/20 documented as of this encounter
--- OUTSIDE RECORDS SUMMARY | 2024-06-04 10:33 | XMS_ITS | Encounter Summary ---
Author Organization [employer] Address [address] [facility] [address] 7t [place] [address] Care Team Providers Care Liability Claims Representative Name Role Phone Kalpana Baptiste MD Primary Care Provide r Reason for Visit * Reason Comments Med Refill Encounter Details Date Type Department Care Team ([facility] st Contact Info) Description 07/25/2023 Refill [facility] MEDICINE 230 [place], [place] [phone] Kalpana Baptiste MD 230 [place] [address] Chronic gout of multiple sites, unspecified cause; Primary osteoarthritis of both knees; Moderate persistent asthma without complication Social History Tobacco Use Types Packs/Day Years [...] Description 06/22/2024 1:00 PM EST Office Visit [facility] OPTOMETRY [address] [place] [address] Jonathon, Beata, OD 230 [place] [address] 08/05/2024 1:00 PM EDT Office Visit [facility] MEDICINE 230 [place] [address] Kalpana Baptiste MD [address] [place] [address] 08/12/2024 11:30 AM EDT Clinical Support [facility] MEDICINE [address] [place] [phone] Amanda Waldrop RN documented as of this encounter Visit Diagnoses Diagnosis Chronic gout of multiple sites, unspecified cause Primary osteoarthritis of both knees Moderate persistent asthma without complication documented in this encounter Additional Health Concerns Assessment Noted Time PHQ-9 Depression Total Score: 0 08/22/19 23 10:06 AM EDT documented as of this encounter Care Teams Liability Claims Representative Relationship Specialty Start Date End Date Kalpana Baptiste MD [address] [place] [phone] PCP - General Family Medicine 06/14/20 documented as of this encounter
--- OUTSIDE RECORDS SUMMARY | 2024-06-04 10:33 | XMS_ITS | Encounter Summary ---
Author Organization [employer] Address [address] [facility] [address] 7t [place] [address] Care Team Providers Care Molder Inflated Ball Name Role Phone Kalpana Baptiste MD Primary Care Provide r Reason for Visit * Reason Comments Med Refill Encounter Details Date Type Department Care Team ([facility] st Contact Info) Description 07/10/2023 Refill [facility] MEDICINE [address] [place], [place] [phone] Caryl Biggs MD 230 [place] [address] Primary osteoarthritis of both knees Social History [...] Description 06/22/2024 1:00 PM EST Office Visit [facility] OPTOMETRY 267 [place] [address] Jonathon, Beata, OD 230 [place] [address] 08/05/2024 1:00 PM EDT Office Visit [facility] MEDICINE 230 [place] [address] Kalpana Baptiste MD 230 [place] [address] 08/12/2024 11:30 AM EDT Clinical Support [facility] MEDICINE [address] [place] [phone] Amanda Waldrop RN documented as of this encounter Visit Diagnoses Diagnosis Primary osteoarthritis of both knees documented in this encounter Additional Health Concerns Assessment Noted Time PHQ-9 Depression Total Score: 0 08/22/19 23 10:06 AM EDT documented as of this encounter Care Teams Molder Inflated Ball Relationship Specialty Start Date End Date Kalpana Baptiste MD [address] [place] [phone] PCP - General Family Medicine 06/14/20 documented as of this encounter
--- OUTSIDE RECORDS SUMMARY | 2024-06-04 10:33 | XMS_ITS | Encounter Summary ---
Author Organization [employer] Address [address] [facility] [address] 7t [place] [address] Care Team Providers Care Deputy Of Counter Intelligence Name Role Phone Kalpana Baptiste MD Primary Care Provide r Reason for Visit * Reason Comments Med Refill Encounter Details Date Type Department Care Team ([facility] st Contact Info) Description 07/28/2023 Refill [facility] MEDICINE 230 [place], [place] [phone] Caryl Biggs MD 230 [place] [address] Chronic tension-type headache, not intractable Social History [...] Description 06/22/2024 1:00 PM EST Office Visit [facility] OPTOMETRY [address] [place], [place] [phone] Jonathon, Beata, OD 230 [place] [address] 08/05/2024 1:00 PM EDT Office Visit [facility] MEDICINE 230 [place] [address] Kalpana Baptiste MD 230 [place] [address] 08/12/2024 11:30 AM EDT Clinical Support [facility] MEDICINE [address] [place] [phone] Amanda Waldrop RN documented as of this encounter Visit Diagnoses Diagnosis Chronic tension-type headache, not intractable Chronic tension type headache documented in this encounter Additional Health Concerns Assessment Noted Time PHQ-9 Depression Total Score: 0 08/22/19 23 10:06 AM EDT documented as of this encounter Care Teams Deputy Of Counter Intelligence Relationship Specialty Start Date End Date Kalpana Baptiste MD [address] [place] [address] [phone] PCP - General Family Medicine 06/14/20 documented as of this encounter
--- OUTSIDE RECORDS SUMMARY | 2024-06-04 10:33 | XMS_ITS | Encounter Summary ---
Author Organization [employer] Address [address] [facility] [address] 7t [place] [address] Care Team Providers Care Banquet Manager Name Role Phone Kalpana Baptiste MD Primary Care Provide r Reason for Visit * Reason Comments Med Refill Encounter Details Date Type Department Care Team ([facility] st Contact Info) Description 07/14/2023 Refill [facility] MEDICINE 230 [place], [place] [phone] Caryl Biggs MD 230 [place] [address] Primary osteoarthritis of both knees Social History [...] 1:00 PM EST Office Visit [facility] OPTOMETRY 267 [place] [address] Jonathon, Beata, OD 230 [place] [address] 08/05/2024 1:00 PM EDT Office Visit [facility] MEDICINE 230 [place] [address] Kalpana Baptiste MD 230 [place] [address] 08/12/2024 11:30 AM EDT Clinical Support [facility] MEDICINE [address] [place] [phone] Amanda Waldrop RN documented as of this encounter Visit Diagnoses Diagnosis Primary osteoarthritis of both knees documented in this encounter Additional Health Concerns Assessment Noted Time PHQ-9 Depression Total Score: 0 08/22/19 23 10:06 AM EDT documented as of this encounter Care Teams Banquet Manager Relationship Specialty Start Date End Date Kalpana Baptiste MD [address] [place] [phone] PCP - General Family Medicine 06/14/20 documented as of this encounter
--- OUTSIDE RECORDS SUMMARY | 2024-06-04 10:33 | XMS_ITS | Encounter Summary ---
Author Organization [employer] Address [address] [facility] [address] 7t [place] [address] Care Team Providers Care District Manager Name Role Phone Kalpana Baptiste MD Primary Care Provide r Reason for Visit * Reason Comments Med Refill Encounter Details Date Type Department Care Team ([facility] st Contact Info) Description 07/25/2023 Refill [facility] MEDICINE 230 [place], [place] [phone] Caryl Biggs MD 230 [place] [address] Chronic tension-type headache, not intractable Social History [...] Description 06/22/2024 1:00 PM EST Office Visit [facility] OPTOMETRY [address], [place] [phone] Jonathon, Beata, OD 230 [place] [address] 08/05/2024 1:00 PM EDT Office Visit [facility] MEDICINE 230 [place] [address] Kalpana Baptiste MD 230 [place] [address] 08/12/2024 11:30 AM EDT Clinical Support [facility] MEDICINE [address] [place] [phone] Amanda Waldrop RN documented as of this encounter Visit Diagnoses Diagnosis Chronic tension-type headache, not intractable Chronic tension type headache documented in this encounter Additional Health Concerns Assessment Noted Time PHQ-9 Depression Total Score: 0 08/22/19 23 10:06 AM EDT documented as of this encounter Care Teams District Manager Relationship Specialty Start Date End Date Kalpana Baptiste MD [address] [place] [address] [phone] PCP - General Family Medicine 06/14/20 documented as of this encounter
--- OUTSIDE RECORDS SUMMARY | 2024-06-04 10:34 | XMS_ITS | Encounter Summary ---
Author Organization [employer] Address [address] [facility] [address] 7t [place] [address] Care Team Providers Care Handkerchief Maker Name Role Phone Kalpana Baptiste MD Primary Care Provide r Reason for Visit * Reason Comments Med Refill Encounter Details Date Type Department Care Team ([facility] st Contact Info) Description 06/06/2023 Refill [facility] MEDICINE 230 [place], [place] [phone] Kalpana Baptiste MD 230 [place] [address] Primary osteoarthritis of both knees; Chronic tension-type headache, not intractable; Heartburn Social History Tobacco Use Types Packs/Day Years [...] Office Visit [facility] OPTOMETRY 267 [place] [address] Jonathon, Beata, OD 230 [place] [address] 08/05/2024 1:00 PM EDT Office Visit [facility] MEDICINE 230 [place] [address] Kalpana Baptiste MD 230 [place] [address] 08/12/2024 11:30 AM EDT Clinical Support [facility] MEDICINE [address] [place] [phone] Amanda Waldrop RN documented as of this encounter Visit Diagnoses Diagnosis Primary osteoarthritis of both knees Chronic tension-type headache, not intractable Chronic tension type headache Heartburn documented in this encounter Additional Health Concerns Assessment Noted Time PHQ-9 Depression Total Score: 0 08/22/19 23 10:06 AM EDT documented as of this encounter Care Teams Handkerchief Maker Relationship Specialty Start Date End Date Kalpana Baptiste MD [address] [place] [phone] PCP - General Family Medicine 06/14/20 documented as of this encounter
--- OUTSIDE RECORDS SUMMARY | 2024-06-04 10:34 | XMS_ITS | Encounter Summary ---
Author Organization [employer] Address [address] [facility] [address] 7t [place] [address] Care Team Providers Care Academic Physician Name Role Phone Kalpana Baptiste MD Primary Care Provide r Reason for Visit * Reason Comments Med Refill Encounter Details Date Type Department Care Team ([facility] st Contact Info) Description 06/09/2023 Refill [facility] MEDICINE 230 [place], [place] [phone] Kalpana Baptiste MD 230 [place] [address] Chronic tension-type headache, not intractable; Primary osteoarthritis of both knees; Heartburn Social History Tobacco Use Types Packs/Day [...] Description 06/22/2024 1:00 PM EST Office Visit [facility] OPTOMETRY 267 [place] [address] Jonathon, Beata, OD 230 [place] [address] 08/05/2024 1:00 PM EDT Office Visit [facility] MEDICINE 230 [place] [address] Kalpana Baptiste MD 230 [place] [address] 08/12/2024 11:30 AM EDT Clinical Support [facility] MEDICINE [address] [place] [phone] Amanda Waldrop RN documented as of this encounter Visit Diagnoses Diagnosis Chronic tension-type headache, not intractable Chronic tension type headache Primary osteoarthritis of both knees Heartburn documented in this encounter Additional Health Concerns Assessment Noted Time PHQ-9 Depression Total Score: 0 08/22/19 23 10:06 AM EDT documented as of this encounter Care Teams Academic Physician Relationship Specialty Start Date End Date Kalpana Baptiste MD [address] [place] [phone] PCP - General Family Medicine 06/14/20 documented as of this encounter
--- OUTSIDE RECORDS SUMMARY | 2024-06-04 10:34 | XMS_ITS | Encounter Summary ---
Author Organization [employer] Address [address] [facility] [address] 7t [place] [address] Care Team Providers Care Merchandise Support Associate Name Role Phone Kalpana Baptiste MD Primary Care Provide r Reason for Visit * Reason Comments Med Refill Encounter Details Date Type Department Care Team ([facility] st Contact Info) Description 06/27/2023 Refill [facility] MEDICINE 230 [place], [place] [phone] Kalpana Baptiste MD 230 [place] [address] Heartburn Social History Tobacco Use Types Packs/Day [...] Description 06/22/2024 1:00 PM EST Office Visit [facility] OPTOMETRY 267 [place], [place] [phone] Beata Holt, OD 230 [place] [address] 08/05/2024 1:00 PM EDT Office Visit [facility] MEDICINE 230 [place] [address] Kalpana Baptiste MD 230 [place] [address] 08/12/2024 11:30 AM EDT Clinical Support [facility] MEDICINE 230 [place] [address] Amanda Waldrop RN documented as of this encounter Visit Diagnoses Diagnosis Heartburn documented in this encounter Additional Health Concerns Assessment Noted Time PHQ-9 Depression Total Score: 0 08/22/19 23 10:06 AM EDT documented as of this encounter Care Teams Merchandise Support Associate Relationship Specialty Start Date End Date Kalpana Baptiste MD 230 [place] [address] PCP - General Family Medicine 06/14/20 documented as of this encounter
--- OUTSIDE RECORDS SUMMARY | 2024-06-04 10:34 | XMS_ITS | Encounter Summary ---
Author Organization [employer] Address [address] [facility] [address] 7t [place] [address] Care Team Providers Care Log Manager Name Role Phone Kalpana Baptiste MD Primary Care Provide r Reason for Visit * Reason Comments Med Refill Encounter Details Date Type Department Care Team ([facility] st Contact Info) Description 06/29/2023 Refill [facility] MEDICINE 230 [place], [place] [phone] Caryl Biggs MD 230 [place] [address] Primary osteoarthritis of both knees Social History [...] 1:00 PM EST Office Visit [facility] OPTOMETRY 267 [place] [address] Jonathon, Beata, OD 230 [place] [address] 08/05/2024 1:00 PM EDT Office Visit [facility] MEDICINE 230 [place] [address] Kalpana Baptiste MD 230 [place] [address] 08/12/2024 11:30 AM EDT Clinical Support [facility] MEDICINE [address] [place] [address] Amanda Waldrop RN documented as of this encounter Visit Diagnoses Diagnosis Primary osteoarthritis of both knees documented in this encounter Additional Health Concerns Assessment Noted Time PHQ-9 Depression Total Score: 0 08/22/19 23 10:06 AM EDT documented as of this encounter Care Teams Log Manager Relationship Specialty Start Date End Date Kalpana Baptiste MD [address] [place] [phone] PCP - General Family Medicine 06/14/20 documented as of this encounter
--- OUTSIDE RECORDS SUMMARY | 2024-06-04 10:35 | XMS_ITS | Encounter Summary ---
Author Organization [employer] Address [address] [facility] 7t [place] [address] Care Team Providers Care Track Man Name Role Phone Kalpana Baptiste MD Primary Care Provide r Reason for Visit * Reason Comments Med Refill Encounter Details Date Type Department Care Team (Late Contact Info) Description 11/20/2022 Refill [facility] MEDICINE [address] [place] [address] [phone] Abe Dial AGNP Overactive bladder Social History Tobacco Use Types Packs/Day Years Used Date Smoking Tobacco: Never Passive Smoke Exposure: Never Smokeless Tobacco: Never Alcohol Use Standard Drinks/Week Comments Never 0 (1 standard drink = 0.6 oz pur e alcohol) Depression Answer Date Recorded Patient Health Questionnaire-9 Score 0 08/21/2022 Depression Answer Date Recorded Patient Health Questionnaire-2 [...] Encounters Date Type Department Care Team (Late Contact Info) Description 06/22/2024 1:00 PM EST Office Visit [facility] OPTOMETRY [address] [place], [place] [phone] Jonathon, Beata, OD 230 [place], [place] [phone] 08/05/2024 1:00 PM EDT Office Visit [facility] MEDICINE 230 [place] [address] Kalpana Baptiste MD 230 [place] [address] 08/12/2024 11:30 AM EDT Clinical Support [facility] MEDICINE 230 [place] [address] Amanda Waldrop RN documented as of this encounter Visit Diagnoses Diagnosis Overactive bladder Hypertonicity of bladder documented in this encounter Additional Health Concerns Assessment Noted Time PHQ-9 Depression Total Score: 0 08/22/19 23 10:06 AM EDT documented as of this encounter Care Teams Track Man Relationship Specialty Start Date End Date Kalpana Baptiste MD 230 [place] [address] PCP - General Family Medicine 06/14/20 documented as of this encounter
--- OUTSIDE RECORDS SUMMARY | 2024-06-04 10:35 | XMS_ITS | Encounter Summary ---
Author Organization [employer] Address [address] [facility] [address] 7t [place] [address] Care Team Providers Care Scoop Operator Name Role Phone Kalpana Baptiste MD Primary Care Provide r Reason for Visit * Reason Comments Med Refill Encounter Details Date Type Department Care Team ([facility] st Contact Info) Description 09/15/2023 Refill [facility] MEDICINE 230 [place], [place] [phone] Neida Garrett DO 230 [place] [address] Heartburn Social History Tobacco Use Types Packs/Day [...] Description 06/22/2024 1:00 PM EST Office Visit [facility] OPTOMETRY [address] [place], [place] [phone] Beata Holt, OD 230 [place] [address] 08/05/2024 1:00 PM EDT Office Visit [facility] MEDICINE 230 [place] [address] Kalpana Baptiste MD 230 [place] [address] 08/12/2024 11:30 AM EDT Clinical Support [facility] MEDICINE 230 [place] [address] Amanda Waldrop, NEGAR documented as of this encounter Visit Diagnoses Diagnosis Heartburn documented in this encounter Additional Health Concerns Assessment Noted Time PHQ-9 Depression Total Score: 0 08/22/19 23 10:06 AM EDT documented as of this encounter Care Teams Scoop Operator Relationship Specialty Start Date End Date Kalpana Baptiste MD 230 [place] [address] PCP - General Family Medicine 06/14/20 documented as of this encounter
--- OUTSIDE RECORDS SUMMARY | 2024-06-04 10:35 | XMS_ITS | Encounter Summary ---
Author Organization [employer] Address [address] [facility] 7t [place] [address] Care Team Providers Care Skoog Patching Machine Operator Name Role Phone Kalpana Baptiste MD Primary Care Provide r Reason for Visit * Reason Comments Med Refill Encounter Details Date Type Department Care Team ([facility] Contact Info) Description 09/03/2022 Refill [facility] MEDICINE 230 [place], [place] [phone] Kalpana Baptiste MD 230 [place] [address] Primary osteoarthritis of both knees Social History [...] Orientation Straight 03/04/2022 10 :14 AM EDT COVID-19 Exposure Response Date Recorded In the last 10 days, have yo u been in contact with someone who was confirmed or suspected to have Coronavirus/COVID-19? No / Unsure 08/21/2022 9:53 AM EDT documented as of this encounter Plan of Treatment Upcoming Encounters Date Type Department Care Team ([facility] Contact Info) Description 06/22/2024 1:00 PM EST Office Visit [facility] OPTOMETRY [address] [place] [address] Beata Holt, OD 230 [place] [address] 08/05/2024 1:00 PM EDT Office Visit [facility] MEDICINE 230 [place] [address] Kalpana Baptiste MD 230 [place] [address] 08/12/2024 11:30 AM EDT Clinical Support [facility] MEDICINE [address] [place] [phone] Amanda Waldrop, NEGAR documented as of this encounter Visit Diagnoses Diagnosis Primary osteoarthritis of both knees documented in this encounter Additional Health Concerns Assessment Noted Time PHQ-9 Depression Total Score: 0 08/22/19 23 10:06 AM EDT documented as of this encounter Care Teams [employer] Patching Machine Operator Relationship Specialty Start Date End Date Kalpana Baptiste MD [address] [place] [address] [phone] PCP - General Family Medicine 06/14/20 documented as of this encounter
--- OUTSIDE RECORDS SUMMARY | 2024-06-04 10:35 | XMS_ITS | Encounter Summary ---
Author Organization [facility] Address [address] [place] [address] Care Team Providers Care Cut And Print Machine Operator Name Role Phone Kalpana Baptiste MD Primary Care Provider Encounter Details Date Type Department Care Team (Late st Contact Info) Description 01/15/2016 Orders Only [facility] Building [address] [place] [address] Aylin Gunn PA [address] [place] [address] Hematology/[place] [address] Social History Tobacco Use Types Packs/Day Years Used Date Smoking Tobacco: Never Assessed Comments Unknown Sex and Gender Information Value Date Recorded Sex Assigned at Not on file Legal Sex Female 8:19 AM EDT Gender Identity Not on file Sexual Orientation Not on file documented as of this encounter Plan of Treatment Upcoming Encounters Date Type Department Care Team (Late st Contact Info) Description 08/04/2024 12:00 PM EDT Lab [facility] ACC Draw Site Fifth Floor [address] [place] [address] 08/04/2024 1:00 PM EDT Follow-Up [facility] [address] [place] [address] Vivek Bernal MD PhD [address] [place] [address] documented as of this encounter Visit Diagnoses Not on filedocumented in this encounter Care Teams Cut And Print Machine Operator Relationship Specialty Start Date End Date Kalpana Baptiste MD [address] [place] [address] PCP - General 11/22/20 documented as of this encounter
--- OUTSIDE RECORDS SUMMARY | 2024-06-04 10:35 | XMS_ITS | Encounter Summary ---
Author Organization [employer] Address [address] [facility] 7t [place] [address] Care Team Providers Care Medical Office Secretary Name Role Phone Kalpana Baptiste MD Primary Care Provide r Reason for Visit * Reason Comments Med Refill Encounter Details Date Type Department Care Team ([facility] Contact Info) Description 08/23/2022 Refill [facility] MEDICINE [address] [place], [place] [phone] Kalpana Baptiste MD 230 [place] [address] Primary osteoarthritis of both knees Social History [...] Upcoming Encounters Date Type Department Care Team ([facility] [address] Contact Info) Description 06/22/2024 1:00 PM EST Office Visit [facility] OPTOMETRY [address] [place] [address] Beata Holt, OD 230 [place] [address] 08/05/2024 1:00 PM EDT Office Visit [facility] MEDICINE 230 [place] [address] Kalpana Baptiste MD 230 [place] [address] 08/12/2024 11:30 AM EDT Clinical Support [facility] MEDICINE [address] [place] [address] Amanda Waldrop, NEGAR documented as of this encounter Visit Diagnoses Diagnosis Primary osteoarthritis of both knees documented in this encounter Additional Health Concerns Assessment Noted Time PHQ-9 Depression Total Score: 0 08/22/19 23 10:06 AM EDT documented as of this encounter Care Teams Medical Office Secretary Relationship Specialty Start Date End Date Kalpana Baptiste MD [address] [place] [address] [phone] PCP - General Family Medicine 06/14/20 documented as of this encounter
--- OUTSIDE RECORDS SUMMARY | 2024-06-04 10:35 | XMS_ITS | Encounter Summary ---
Author Organization [employer] Address [address] [facility] [facility] [address] 7t [place] [address] Care Team Providers Care Asphalt Screed Operator Name Role Phone Kalpana Baptiste MD Primary Care Provide r Reason for Visit * Reason Comments Med Refill Encounter Details Date Type Department Care Team ([facility] st Contact Info) Description 07/05/2023 Refill [facility] MEDICINE 230 [place], [place] [phone] Caryl Biggs MD 230 [place] [address] Primary osteoarthritis of both knees Social History [...] Office Visit [facility] OPTOMETRY [address] [place] [address] Jonathon, Beata, OD 230 [place] [address] 08/05/2024 1:00 PM EDT Office Visit [facility] MEDICINE 230 [place] [address] Kalpana Baptiste MD 230 [place] [address] 08/12/2024 11:30 AM EDT Clinical Support [facility] MEDICINE [address] [place] [address] Amanda Waldrop RN documented as of this encounter Visit Diagnoses Diagnosis Primary osteoarthritis of both knees documented in this encounter Additional Health Concerns Assessment Noted Time PHQ-9 Depression Total Score: 0 08/22/19 23 10:06 AM EDT documented as of this encounter Care Teams Asphalt Screed Operator Relationship Specialty Start Date End Date Kalpana Baptiste MD [address] [place] [phone] PCP - General Family Medicine 06/14/20 documented as of this encounter
--- OUTSIDE RECORDS SUMMARY | 2024-06-04 10:35 | XMS_ITS | Encounter Summary ---
Author Organization [facility] Address [address] [facility] [address] 7t [place] [address] Care Team Providers Care Vocational Rehabilitation Administrator Name Role Phone Kalpana Baptiste MD Primary Care Provide r Reason for Visit * Reason Comments Med Refill Encounter Details Date Type Department Care Team ([facility] st Contact Info) Description 09/15/2023 Refill [facility] MEDICINE 230 [place], [place] [phone] Kalpana Baptiste MD 230 [place] [address] Chronic tension-type headache, not intractable; Dry eyes; Primary osteoarthritis of both knees Social History [...] Description 06/22/2024 1:00 PM EST Office Visit [facility] OPTOMETRY [address] [place] [address] Jonathon, Beata, OD 230 [place] [address] 08/05/2024 1:00 PM EDT Office Visit [facility] MEDICINE 230 [place] [address] Kalpana Baptiste MD [address] [place] [address] 08/12/2024 11:30 AM EDT Clinical Support [facility] MEDICINE [address] [place] [address] Amanda Waldrop RN documented as of this encounter Visit Diagnoses Diagnosis Chronic tension-type headache, not intractable Chronic tension type headache Dry eyes Unspecified tear film insufficiency Primary osteoarthritis of both knees documented in this encounter Additional Health Concerns Assessment Noted Time PHQ-9 Depression Total Score: 0 08/22/19 23 10:06 AM EDT documented as of this encounter Care Teams Vocational Rehabilitation Administrator Relationship Specialty Start Date End Date Kalpana Baptiste MD [address] [place] [phone] PCP - General Family Medicine 06/14/20 documented as of this encounter
--- OUTSIDE RECORDS SUMMARY | 2024-06-04 10:35 | XMS_ITS | Encounter Summary ---
Author Organization [employer] Address [address] [facility] [address] 7t [place] [address] Care Team Providers Care Hand Crown Pouncer Name Role Phone Kalpana Baptiste MD Primary Care Provide r Reason for Visit * Reason Comments Med Refill Encounter Details Date Type Department Care Team ([facility] st Contact Info) Description 06/30/2023 Refill [facility] MEDICINE 230 [place], [place] [phone] Kalpana Baptiste MD 230 [place] [address] Heartburn Social History Tobacco Use Types Packs/Day [...] Description 06/22/2024 1:00 PM EST Office Visit [facility] OPTOMETRY [address] [place], [place] [phone] Beata Holt, OD 230 [place] [address] 08/05/2024 1:00 PM EDT Office Visit [facility] MEDICINE 230 [place] [address] Kalpana Baptiste MD 230 [place] [address] 08/12/2024 11:30 AM EDT Clinical Support [facility] MEDICINE [address] [place] [address] Amanda Waldrop RN documented as of this encounter Visit Diagnoses Diagnosis Heartburn documented in this encounter Additional Health Concerns Assessment Noted Time PHQ-9 Depression Total Score: 0 08/22/19 23 10:06 AM EDT documented as of this encounter Care Teams Hand Crown Pouncer Relationship Specialty Start Date End Date Kalpana Baptiste MD 230 [place] [address] PCP - General Family Medicine 06/14/20 documented as of this encounter
--- OUTSIDE RECORDS SUMMARY | 2024-06-04 10:35 | XMS_ITS | Encounter Summary ---
Author Organization [employer] Address [address] [facility] [address] 7t [place] [address] Care Team Providers Care Unattended Ground Sensor Specialist Name Role Phone Kalpana Baptiste MD Primary Care Provide r Reason for Visit * Reason Comments Med Refill Encounter Details Date Type Department Care Team ([facility] st Contact Info) Description 09/19/2023 Refill [facility] MEDICINE 230 [place], [place] [phone] Kalpana Baptiste MD 230 [place] [address] Primary osteoarthritis of both knees; Chronic tension-type headache, not intractable; Dry eyes Social History Tobacco Use Types Packs/Day Years [...] 1:00 PM EST Office Visit [facility] OPTOMETRY [address] [place] [address] Jonathon, Beata, OD 230 [place] [address] 08/05/2024 1:00 PM EDT Office Visit [facility] MEDICINE [address] [place] [address] Kalpana Baptiste MD [address] [place] [address] 08/12/2024 11:30 AM EDT Clinical Support [facility] MEDICINE [address] [place] [phone] Amanda Waldrop RN documented as of this encounter Visit Diagnoses Diagnosis Primary osteoarthritis of both knees Chronic tension-type headache, not intractable Chronic tension type headache Dry eyes Unspecified tear film insufficiency documented in this encounter Additional Health Concerns Assessment Noted Time PHQ-9 Depression Total Score: 0 08/22/19 23 10:06 AM EDT documented as of this encounter Care Teams Unattended Ground Sensor Specialist Relationship Specialty Start Date End Date Kalpana Baptiste MD [address] [place] [address] PCP - General Family Medicine 06/14/20 documented as of this encounter
--- OUTSIDE RECORDS SUMMARY | 2024-06-04 10:35 | XMS_ITS | Encounter Summary ---
Author Organization [employer] Address [address] [facility] [address] 7t [place] [address] Care Team Providers Care Hand Weaver Name Role Phone Kalpana Baptiste MD Primary Care Provide r Reason for Visit * Reason Comments Med Refill Encounter Details Date Type Department Care Team ([facility] st Contact Info) Description 08/22/2023 Refill [facility] MEDICINE 230 [place], [place] [phone] Kalpana Baptiste MD 230 [place] [address] Primary osteoarthritis of both knees Social History [...] Description 06/22/2024 1:00 PM EST Office Visit [facility] OPTOMETRY [address] [place] [address] JonathonBeata perkins, OD 230 [place] [address] 08/05/2024 1:00 PM EDT Office Visit [facility] MEDICINE 230 [place] [address] Kalpana Baptiste MD [address] [place] [address] 08/12/2024 11:30 AM EDT Clinical Support [facility] MEDICINE 230 [place] [address] Amanda Waldrop RN documented as of this encounter Visit Diagnoses Diagnosis Primary osteoarthritis of both knees documented in this encounter Additional Health Concerns Assessment Noted Time PHQ-9 Depression Total Score: 0 08/22/19 23 10:06 AM EDT documented as of this encounter Care Teams Hand Weaver Relationship Specialty Start Date End Date Kalpana Baptiste MD [address] [place] [address] PCP - General Family Medicine 06/14/20 documented as of this encounter
--- OUTSIDE RECORDS SUMMARY | 2024-06-04 10:35 | XMS_ITS | Encounter Summary ---
Author Organization [facility] Address [address] [place] [address] Care Team Providers Care School Psychologist Assistant Name Role Phone Kalpana Baptiste MD Primary Care Provider Encounter Details Date Type Department Care Team (Late st Contact Info) Description 01/17/2016 Orders Only [facility] Specialty Pharmacy [facility] Building [address] [place] [address] Aylin Gunn PA [address] [place] [address] Hematology/[place] [address] Social History Tobacco Use Types Packs/Day Years [...] Info) Description 08/04/2024 12:00 PM EDT Lab [facility] ACC Draw Site Fifth Floor [address] [place] [address] 08/04/2024 1:00 PM EDT Follow-Up [facility] Clinic [address] [place] [address] Vivek Bernal MD PhD [address] [place] [address] documented as of this encounter Visit Diagnoses Not on filedocumented in this encounter Care Teams School Psychologist Assistant Relationship Specialty Start Date End Date Kalpana Baptiste MD 230 [place] [address] PCP - General 11/22/20 documented as of this encounter
--- OUTSIDE RECORDS SUMMARY | 2024-06-04 10:35 | XMS_ITS | Encounter Summary ---
Author Organization [employer] Address [address] [facility] [address] 7t [place] [address] Care Team Providers Care Manager Documentation Name Role Phone Kalpana Baptiste MD Primary Care Provide r Reason for Visit * Reason Comments Med Refill Encounter Details Date Type Department Care Team ([facility] Contact Info) Description 08/15/2022 Refill [facility] MEDICINE 230 [place] [address] Marilyn Corral MD 230 [place] [address] Other hyperlipidemia; Allergic rhinitis, unspecified seasonality, unspecified trigger; Chronic tension-type headache, not intractable; Abdominal pain, epigastric Social History Tobacco Use Types Packs/Day Years Used Date Smoking Tobacco: Never Smokeless Tobacco: Never Alcohol Use Standard Drinks/Week Comments Never 0 (1 standard drink = 0.6 oz pur e alcohol) Comments Unknown Sex and Gender Information Value [...] suspected to have Coronavirus/COVID-19? No / Unsure 08/08/2022 9:40 AM EDT documented as of this encounter Plan of Treatment Upcoming Encounters Date Type Department Care Team ([facility] Contact Info) Description 06/22/2024 1:00 PM EST Office Visit [facility] OPTOMETRY [address] [place] [address] Jonathon, Beata, OD 230 [place] [address] 08/05/2024 1:00 PM EDT Office Visit [facility] MEDICINE [address] [place] [address] Kalpana Baptiste MD 230 [place] [address] 08/12/2024 11:30 AM EDT Clinical Support [address] [address] Amanda Waldrop RN documented as of this encounter Visit Diagnoses Diagnosis Other hyperlipidemia Allergic rhinitis, unspecified seasonality, unspecified trigger Chronic tension-type headache, not intractable Chronic tension type headache Abdominal pain, epigastric documented in this encounter Care Teams Manager Documentation Relationship Specialty Start Date End Date Kalpana Baptiste MD [address] [place] [address] PCP - General Family Medicine 06/14/20 documented as of this encounter
--- OUTSIDE RECORDS SUMMARY | 2024-06-04 10:35 | XMS_ITS | Encounter Summary ---
Author Organization [employer] Address [address] 7t [place] [address] Care Team Providers Care Elevator Repairer Name Role Phone Kalpana Baptiste MD Primary Care Provide r Reason for Visit * Reason Comments Med Refill Encounter Details Date Type Department Care Team ([facility] st Contact Info) Description 07/08/2023 Refill [facility] MEDICINE 230 [place], [place] [phone] Caryl Biggs MD 230 [place] [address] Primary osteoarthritis of both knees Social History [...] PM EST Office Visit [facility] OPTOMETRY [address] [place] [address] Jonathon, Beata, OD 230 [place] [address] 08/05/2024 1:00 PM EDT Office Visit [facility] MEDICINE 230 [place] [address] Kalpana Baptiste MD 230 [place] [address] 08/12/2024 11:30 AM EDT Clinical Support [facility] MEDICINE [address] [place] [phone] Amanda Waldrop RN documented as of this encounter Visit Diagnoses Diagnosis Primary osteoarthritis of both knees documented in this encounter Additional Health Concerns Assessment Noted Time PHQ-9 Depression Total Score: 0 08/22/19 23 10:06 AM EDT documented as of this encounter Care Teams Elevator Repairer Relationship Specialty Start Date End Date Kalpana Baptiste MD [address] [place] [address] PCP - General Family Medicine 06/14/20 documented as of this encounter
--- OUTSIDE RECORDS SUMMARY | 2024-06-04 10:35 | XMS_ITS | Encounter Summary ---
Author Organization [employer] Address [address] [facility] [address] 7t [place] [address] Care Team Providers Care Data Engineer Name Role Phone Kalpana Baptiste MD Primary Care Provide r Reason for Visit * Reason Comments Med Refill Encounter Details Date Type Department Care Team (Late Contact Info) Description 08/15/2022 Refill [facility] MEDICINE 230 [place] [address] Kalpana Baptiste MD 230 [place] [address] Primary osteoarthritis of both knees Social History [...] Upcoming Encounters Date Type Department Care Team ([facility] Contact Info) Description 06/22/2024 1:00 PM EST Office Visit [facility] OPTOMETRY [address] [place] [address] Beata Holt, OD 230 [place] [address] 08/05/2024 1:00 PM EDT Office Visit [address] [phone] Kalpana Baptiste MD 230 [place], [place] [phone] 08/12/2024 11:30 AM EDT Clinical Support [address] [phone] Amanda Waldrop, NEGAR documented as of this encounter Visit Diagnoses Diagnosis Primary osteoarthritis of both knees documented in this encounter Care Teams Data Engineer Relationship Specialty Start Date End Date Kalpana Baptiste MD [address] [place] [address] [phone] PCP - General Family Medicine 06/14/20 documented as of this encounter
--- OUTSIDE RECORDS SUMMARY | 2024-06-04 10:35 | XMS_ITS | Encounter Summary ---
Author Organization [employer] Address [address] 7t [place] [address] Care Team Providers Care University Relations Director Name Role Phone Kalpana Baptiste MD Primary Care Provide r Reason for Visit * Reason Comments Med Refill Encounter Details Date Type Department Care Team ([facility] st Contact Info) Description 08/11/2023 Refill [facility] MEDICINE 230 [place], [place] [phone] Kalpana Baptiste MD 230 [place] [address] Chronic gout of multiple sites, unspecified cause; [...] 1:00 PM EST Office Visit [facility] OPTOMETRY [address] [place] [address] Jonathon, Beata, OD 230 [place] [address] 08/05/2024 1:00 PM EDT Office Visit [facility] MEDICINE [address] [place] [address] Kalpana Baptiste MD [address] [place] [address] 08/12/2024 11:30 AM EDT Clinical Support [facility] MEDICINE [address] [place] [address] Amanda Waldrop RN documented as of this encounter Visit Diagnoses Diagnosis Chronic gout of multiple sites, unspecified cause Primary osteoarthritis of both knees Moderate persistent asthma without complication documented in this encounter Additional Health Concerns Assessment Noted Time PHQ-9 Depression Total Score: 0 08/22/19 23 10:06 AM EDT documented as of this encounter Care Teams University Relations Director Relationship Specialty Start Date End Date Kalpana Baptiste MD [address] [place] [address] PCP - General Family Medicine 06/14/20 documented as of this encounter
--- OUTSIDE RECORDS SUMMARY | 2024-06-04 10:35 | XMS_ITS | Encounter Summary ---
Author Organization [employer] Address [address] [facility] [address] 7t [place] [address] Care Team Providers Care Animal Care Giver Name Role Phone Kalpana Baptiste MD Primary Care Provide r Encounter Details Date Type Department Care Team ([facility] st Contact Info) Description 08/29/2023 Telephone [facility] MEDICINE 230 [place], [place] [phone] Kalpana Baptiste MD 230 [place], [place] [phone] Social History Tobacco Use Types Packs/Day Years [...] Description 06/22/2024 1:00 PM EST Office Visit [facility] OPTOMETRY [address] [place], [place] [phone] Beata Holt, OD 230 [place] [address] 08/05/2024 1:00 PM EDT Office Visit [facility] MEDICINE 230 [place] [address] Kalpana Baptiste MD 230 [place] [address] 08/12/2024 11:30 AM EDT Clinical Support [facility] MEDICINE [address] [place] [phone] Amanda Waldrop, NEGAR documented as of this encounter Visit Diagnoses Not on filedocumented in this encounter Additional Health Concerns Assessment Noted Time PHQ-9 Depression Total Score: 0 08/22/19 23 10:06 AM EDT documented as of this encounter Care Teams Animal Care Giver Relationship Specialty Start Date End Date Kalpana Baptiste MD 230 [place], [place] [phone] PCP - General Family Medicine 06/14/20 documented as of this encounter
--- OUTSIDE RECORDS SUMMARY | 2024-06-04 10:35 | XMS_ITS | Encounter Summary ---
Author Organization [employer] Address [address] 7t [place] [address] Care Team Providers Care Damper Worker Name Role Phone Kalpana Baptiste MD Primary Care Provide r Reason for Visit * Reason Comments Med Refill Encounter Details Date Type Department Care Team ([facility] st Contact Info) Description 09/11/2023 Refill [facility] MEDICINE [address] [place], [place] [phone] Kalpana Baptiste MD 230 [place] [address] Acute otitis media, unspecified otitis media type Social History Tobacco Use Types Packs/Day Years [...] Description 06/22/2024 1:00 PM EST Office Visit [facility] OPTOMETRY [address] [place] [address] JonathonBeata perkins, OD 230 [place] [address] 08/05/2024 1:00 PM EDT Office Visit [facility] MEDICINE [address] [place] [address] Kalpana Baptiste MD 230 [place] [address] 08/12/2024 11:30 AM EDT Clinical Support [facility] MEDICINE [address] [place] [address] Amanda Waldrop RN documented as of this encounter Visit Diagnoses Diagnosis Acute otitis media, unspecified otitis media type documented in this encounter Additional Health Concerns Assessment Noted Time PHQ-9 Depression Total Score: 0 08/22/19 23 10:06 AM EDT documented as of this encounter Care Teams Damper Worker Relationship Specialty Start Date End Date Kalpana Baptiste MD [address] [place] [phone] PCP - General Family Medicine 06/14/20 documented as of this encounter
--- OUTSIDE RECORDS SUMMARY | 2024-06-04 10:35 | XMS_ITS | Encounter Summary ---
Author Organization [employer] Address [address] [facility] [address] [address] 7[address] [place] [address] Care Team Providers Care Technical Planner Name Role Phone Kalpana Baptiste MD Primary Care Provide r Reason for Visit * Reason Onset Date Comments Med Refill 10/13/2023 Encounter Details Date Type Department Care Team ([facility] st Contact Info) Description 10/13/2023 Telephone [facility] [address] [place], [place] [phone] Kalpana Baptiste MD 230 [place] [address] Med Refill Social History Tobacco Use Types Packs/Day Years [...] AM EDT documented as of this encounter Miscellaneous Notes * Telephone Encounter - Neida Bower LPN - 10/13/2023 2:55 PM EDT Medication pended to PCP. * Telephone Encounter - Aicha Saldivar - 10/13/2023 2:48 PM EDT TC from pt requesting medication refill. Medications needing refill : sucralfate (Carafate) 1 g tablet To be sent to: [facility] - [place], [place] - [address] [place] [address] documented in this encounter Plan of Treatment Upcoming Encounters Date Type Department Care Team (Late st Contact Info) Description 06/22/2024 1:00 PM EST Office Visit [facility] [address] [place] [address] Beata Holt, JUAN MANUEL 230 [place] [address] 08/05/2024 1:00 PM EDT Office Visit [facility] [address] [place] [phone] Kalpana Baptiste MD 230 [place] [address] 08/12/2024 11:30 AM EDT Clinical Support [facility] [address] [place] [phone] Amanda Waldrop, RN documented as of this encounter Visit Diagnoses Not on filedocumented in this encounter Additional Health Concerns Assessment Noted Time PHQ-9 Depression Total Score: 0 08/22/19 23 10:06 AM EDT documented as of this encounter Care Teams Technical Planner Relationship Specialty Start Date End Date Kalpana Baptiste MD 230 [place] [address] PCP - General Family Medicine 06/14/20 documented as of this encounter
--- OUTSIDE RECORDS SUMMARY | 2024-06-04 10:35 | XMS_ITS | Encounter Summary ---
Author Organization [employer] Address [address] [facility] [address] 7[address] [place] [address] Care Team Providers Care Technical Supervisor Name Role Phone Kalpana Baptiste MD Primary Care Provide r Reason for Visit * Reason Comments Med Refill Encounter Details Date Type Department Care Team ([facility] st Contact Info) Description 08/28/[address] [facility] [address] [place], [place] [phone] Kalpana Baptiste MD [address] [place] [address] Primary osteoarthritis of both knees Social History [...] Description 06/22/2024 1:00 PM EST Office Visit [facility] OPT[facility] [address] [place] [address] JonathonBeata perkins, OD 230 [place] [address] 08/05/2024 1:00 PM EDT Office Visit [facility] [address] [place] [address] Kalpana Baptiste MD [address] [place] [address] 08/12/2024 11:30 AM EDT Clinical Support [facility] [address] [place] [address] Amanda Waldrop RN documented as of this encounter Visit Diagnoses Diagnosis Primary osteoarthritis of both knees documented in this encounter Additional Health Concerns Assessment Noted Time PHQ-9 Depression Total Score: 0 08/22/19 23 10:06 AM EDT documented as of this encounter Care Teams Technical Supervisor Relationship Specialty Start Date End Date Kalpana Baptiste MD [address] [place] [phone] PCP - General Family Medicine 06/14/20 documented as of this encounter
--- OUTSIDE RECORDS SUMMARY | 2024-06-04 10:36 | XMS_ITS | Encounter Summary ---
Author Organization [employer] Address [address] [facility] 7t [place] [address] Care Team Providers Care Qa Software Test Engineer Name Role Phone Kalpana Baptiste MD Primary Care Provide r Reason for Visit * Reason Comments Med Refill Encounter Details Date Type Department Care Team ([facility] Contact Info) Description 10/09/2022 Refill [facility] 230 [place], [place] [phone] Marilyn Corral MD 230 [place] [address] Moderate persistent asthma without complication Social History [...] Upcoming Encounters Date Type Department Care Team ([facility] Contact Info) Description 06/22/2024 1:00 PM EST Office Visit [facility] OPT[facility] [address] [place] [address] Beata Holt, OD 230 [place] [address] 08/05/2024 1:00 PM EDT Office Visit [facility] [address] [place] [address] [phone] Kalpana Baptiste MD [address] [place] [phone] 08/12/2024 11:30 AM EDT Clinical Support [address] [address] Amanda Waldrop, NEGAR documented as of this encounter Visit Diagnoses Diagnosis Moderate persistent asthma without complication documented in this encounter Additional Health Concerns Assessment Noted Time PHQ-9 Depression Total Score: 0 08/22/19 23 10:06 AM EDT documented as of this encounter Care Teams Qa Software Test Engineer Relationship Specialty Start Date End Date Kalpana Baptiste MD [address] [place] [phone] PCP - General Family Medicine 06/14/20 documented as of this encounter
--- OUTSIDE RECORDS SUMMARY | 2024-06-04 10:36 | XMS_ITS | Encounter Summary ---
Author Organization [employer] Address [address] [facility] 7t [place] [address] Care Team Providers Care Finisher Plate Name Role Phone Kalpana Baptiste MD Primary Care Provide r Reason for Visit * Reason Comments Med Refill Encounter Details Date Type Department Care Team ([facility] Contact Info) Description 12/13/2022 Refill [facility] 230 [place], [place] [phone] Kalpana Baptiste MD 230 [place] [address] Primary osteoarthritis of both knees Social History [...] Upcoming Encounters Date Type Department Care Team ([facility] Contact Info) Description 06/22/2024 1:00 PM EST Office Visit [facility] OPTOMETRY 267 [place] [address] Beata Holt, OD 230 [place] [address] 08/05/2024 1:00 PM EDT Office Visit [address] [phone] Kalpana Baptiste MD [address] [place] [address] 08/12/2024 11:30 AM EDT Clinical Support [address] [address] Amanda Waldrop, NEGAR documented as of this encounter Visit Diagnoses Diagnosis Primary osteoarthritis of both knees documented in this encounter Additional Health Concerns Assessment Noted Time PHQ-9 Depression Total Score: 0 08/22/19 23 10:06 AM EDT documented as of this encounter Care Teams Finisher Plate Relationship Specialty Start Date End Date Kalpana Baptiste MD [address] [place] [phone] PCP - General Family Medicine 06/14/20 documented as of this encounter
--- OUTSIDE RECORDS SUMMARY | 2024-06-04 10:36 | XMS_ITS | Clinical Summary ---
Author Organization [facility][1] Address [address] [place] [address] [place] [address] Phone Care Team Providers Care Tool Coordinator Name Role Phone Kalpana Baptiste MD Primary Care Provide r Allergies Active Allergy Reactions Criticality Noted Date Comments Aspirin Other (see comments) 02/01/2021 Penicillin V Other (see comments) 02/01/2021 Vancomycin 05/16/2021 Other reaction(s): Rash, Rash Medications metFORMIN (GLUCOPHAGE) 500 MG tablet Take 1 tablet by mouth 2 (two) times a day Active cholecalciferol (VITAMIN D-3) 25 MCG (1000 UT) capsule Take 1 capsule by mouth 1 (one) time each day Active amLODIPine (NORVASC) 10 MG tablet Take 1 tablet by mouth 1 (one) time each day Active Albuterol Sulfate (ProAir RespiClick) 108 (90 Base) MCG/ACT aerosol powder Active albuterol (5 MG/ML) 0.5% nebulizer solution Active acetaminophen (TYLENOL) 500 MG tablet Take by mouth every 6 (six) hours if needed for mild pain Active allopurinol (ZYLOPRIM) 100 MG tablet Take 100 mg by mouth 1 (one) time each day Active citalopram (CeleXA) 40 MG tablet Take 40 mg by mouth 1 (one) time each day Active fluticasone HFA (FLOVENT HFA) 110 MCG/ACT inhaler Inhale 1 puff 2 (two) times a day Rinse mouth with water after use to reduce aftertaste and incidence of candidiasis. Do not swallow. Active folic acid (FOLVITE) 1 MG tablet Take 1 mg by mouth 1 (one) time each day Active Canagliflozin (Invokana) 100 MG tablet Take by mouth Active ruxolitinib (JAKAFI) 5 MG chemo tablet Take 5 mg by mouth in the morning and 5 mg in the evening. Take at about the same time each day. Take with or without food. . Active SITagliptin (JANUVIA) 50 MG tablet Take 50 mg by mouth 1 (one) time each day Active lisinopril 5 MG tablet Take 5 mg by mouth 1 (one) time each day Active mirtazapine (REMERON) 15 MG tablet Take 15 mg by mouth every night Active senna (SENOKOT) 8.6 MG tablet Take 1 tablet by mouth 1 (one) time each day Active tolterodine (DETROL) 2 MG tablet Take 2 mg by mouth in the morning and 2 mg in the evening. 4mg . Active traMADol (ULTRAM) 50 MG tablet Take 50 mg by mouth every 6 (six) hours if needed for moderate pain Active Active Problems Problem Noted Date Diagnosed Date Gastroesophageal reflux disease 12/16/2022 01/10/2023 Foot pain 12/16/2022 01/10/2023 Fall 12/16/2022 01/10/2023 Dyspnea on exertion 12/16/2022 01/10/2023 Dyslipidemia 12/16/2022 01/10/2023 Contusion of right foot 12/16/2022 01/11/20 Cholecystitis without calculus 12/16/2022 0 01/10/2023 Calcaneal spur 12/16/2022 01/10/2023 Biliary dyskinesia 12/16/2022 01/10/2023 Alopecia 12/16/2022 01/10/2023 Acute nontraumatic kidney injury 12/16/2022 Abdominal bloating 12/16/2022 01/10/2023 Meningioma 12/16/2022 01/10/2023 History of gastritis 12/16/2022 01/10/2023 Neuropathy due to type 2 diabetes mellitus 12/1601/10/2023 Urinary tract infectious disease 12/16/2022 01/10/2023 Patient encounter status 08/21/2022 Overview (09/09/2022): Last Assessment & Plan: Pending PAP and colon cancer screening Diabetic labs ordered, diabetic foot exam done referral to optometry done Dental caries 07/01/2022 Dental calculus 07/01/2022 Periodontal disease 07/01/2022 Elevated blood pressure reading 06/21/2022 Overview (09/09/2022): Last Assessment & Plan: 154/86 before leaving Patient has BP kit at home, she is to monitory BP twice a day until F/up. I gave the patient a BP log. History of total hysterectomy 05/14/2022 Cobalamin deficiency 05/14/2022 Chronic gouty arthritis 05/14/2022 Overview (09/09/2022): Last Assessment & Plan: Pain on her foot likely due to gout arthritis flare, I advise to finsh her prednisone, I will refer patient to rheumatology and I will order labs including uric acid and if not at goal I will likely start patient on allopurinol Bilateral primary osteoarthritis of knee 023 Overview (09/09/2022): Last Assessment & Plan: Patient has not had surgery due to her anemia I will order CBC today if hgb still too low I will communicate with hematology to plan and try to conduct patient to have her b/l knee replacement for improvement of her quality of life Steatosis of liver 05/14/2022 Renal stone 05/14/2022 Essential hypertension 02/01/2021 Proteinuria 02/01/2021 Renal disorder due to type 2 diabetes mellitus 0 02/01/2021 Stage 3b chronic kidney disease 02/01/2021 Vitamin D deficiency 03/20/2017 Moderate persistent asthma 06/01/2015 Type 2 diabetes mellitus 03/29/2015 Overview (09/09/2022): Last Assessment & Plan: Today A1c 6.7 Lab Results Component Value Date CREATININE 1.91 (H) 08/17/2022 - Diabetic eye exam: referral to eye care today - Diabetic foot exam: done today - Continue lifestyle modifications - Continue current medications Indigestion 03/02/2015 Depressive disorder 03/02/2015 Chronic myeloproliferative disease 03/02/2015 Allergic rhinitis 03/02/2015 Anemia 03/02/2015 Obstructive sleep apnea syndrome 03/02/2015 Overview (09/09/2022): Last Assessment & Plan: Referral to sleep medicine ordered Obesity 03/02/2015 Low back pain 06/03/2012 Resolved Problems Problem Noted Date Diagnosed Date Resolved Date Drug-induced gout, knee 01/03/2022 09/0 05/2021 Encounters Date Type Department Care Team Description 05/10/2024 Documentation Only [facility] [address] [place] [phone] Eben Us MD from Last 3 Months Immunizations Name Administration Dates Next Due DTP / HiB 08/09/2013 DTaP 5 08/10/2014,12/01/2013 Hep B, Adolescent or Pediatric 07/23/2010,2010 Hepatitis A 10/14/2018 Hepatitis B 11/15/2014, 5,12/01/2013,08/09 Hib (PRP-OMP) 08/10/2014,12/01/2013 IPV 08/10/2014,12/01/2013,08/09/2013 Influenza (IM) Preservative Free 03/24/2016,01/04 Influenza Split 01/09/2012 Influenza TIV (IM) 02/23/2014 Influenza, Quadrivalent, Pre servative Free 02/20/2021,02/18/2020,02/11/2018,02/17 Influenza, Quadrivalent, Wit h Preservative 01/18/2019,03/02/2015 MMR 12/24/2000,02/06/2000 Meningococcal MCV4P 08/09/2013 Pneumococcal Conjugate 13-Valent 03/24/2016 Pneumococcal Polysaccharide 03/24/2016,0 08/10/2014,08/09/2013,07/08,01/17/2009 Pneumococcal, Unspecified 01/17/2009 Shingrix 08/21/2021,06/13/2021 Td 01/18/2019,10/01/1996 Tdap 01/17/2009 Family History Medical History Relation Comments Kidney disease Father Kidney disease Mother Relation Status Comments Father Mother Social History Tobacco Use Types Packs/Day Years Used Date Smoking Tobacco: Former Smokeless Tobacco: Former Comments:Smoking History Inf o:Every day Alcohol Use Standard Drinks/Week Comments No 0 (1 standard drink = 0.6 oz pur e alcohol) Comments Unknown Sex and Gender Information Value Date Recorded Sex Assigned at Not on file Legal Sex Female 4:43 PM EST Gender Identity Not on file Sexual Orientation Not on file Last Filed Vital Signs Vital Sign Reading Time Taken Comments Blood Pressure 126/80 09/09/2022 10:58 AM EDT Pulse 76 09/09/2022 10:58 AM EDT Temperature - - Respiratory Rate - - Oxygen Saturation 98% 09/09/2022 10:58 AM EDT Inhaled Oxygen Concentration - - Weight 116 kg (256 lb 3.2 oz) 09/09/2022 10:58 A M EDT Height 170.2 cm (5' 7 ) 08/27/2018 12:00 PM EDT Body Mass Index 40.13 08/27/2018 12:00 PM EDT Plan of Treatment Upcoming Encounters Date Type Department Care Team (Late st Contact Info) Description 06/14/2024 4:15 PM EST Office Visit [facility] [address] [facility] [address] Eben Us MD [address] [facility] [address] [place] [phone] Health Maintenance Due Date Last Done Comments Breast Cancer Screening 1965 Colorectal Cancer Screening: Annual FOBT 2012 Colorectal Cancer Screening: Colonoscopy 2012 Colorectal Cancer Screening: Sigmoidoscopy 2012 Diabetes: Ophthalmology Exam 06/05/2020 Diabetes: Pedal Pulse Checked 06/05/2020 Diabetes: Sensory Foot Exam 06/05/2020 Diabetes: Visual Foot Exam 06/05/2020 Diabetes: Hemoglobin A1C 11/20/2022 08/21/2022 Influenza Vaccine (#1) 2024 , 02/18/2020, 01/18/2019, Additional history exists Pneumococcal Vaccine: Pediatrics (0 to 5 Years) and At-Risk Patients (6 to 64 Years) (4 of 4 - PPSV23 or PCV20) 2028 03/24/2016, 03/24/2016, 08/10/2014, Additional history exists Hepatitis B Vaccine Aged Out 11/15/2014, 08/10/2014, 12/01/2013, Additional history exists No longer eligible based on patient's age to complete this topic Insurance [place] Care Teams Tool Coordinator Relationship Specialty Start Date End Date Kalpana Baptiste MD [address] [place] [phone] PCP - General Internal Medicine 07/03/21
--- OUTSIDE RECORDS SUMMARY | 2024-06-04 10:36 | XMS_ITS | Encounter Summary ---
Author Organization [employer] Address [address] [facility] [address] 7t [place] [address] Care Team Providers Care Impression Printer Name Role Phone Kalpana Baptiste MD Primary Care Provide r Reason for Visit * Reason Comments Med Refill Encounter Details Date Type Department Care Team ([facility] st Contact Info) Description 11/10/2023 Refill [facility] 230 [place], [place] [phone] Kalpana Baptiste MD 230 [place] [address] Social History Tobacco Use Types Packs/Day Years [...] 06/22/2024 1:00 PM EST Office Visit [facility] [address] [place], [place] [phone] Beata Holt, OD 230 [place] [address] 08/05/2024 1:00 PM EDT Office Visit [facility] 230 [place] [address] Kalpana Baptiste MD [address] [place] [address] 08/12/2024 11:30 AM EDT Clinical Support [facility] [address] [place] [phone] Amanda Waldrop, NEGAR documented as of this encounter Visit Diagnoses Not on filedocumented in this encounter Additional Health Concerns Assessment Noted Time PHQ-9 Depression Total Score: 0 08/22/19 23 10:06 AM EDT documented as of this encounter Care Teams Impression Printer Relationship Specialty Start Date End Date Kalpana Baptiste MD [address] [place] [phone] PCP - General Family Medicine 06/14/20 documented as of this encounter
--- OUTSIDE RECORDS SUMMARY | 2024-06-04 10:36 | XMS_ITS | Encounter Summary ---
Author Organization [employer] Address [address] [facility] [address] 7t [place] [address] Care Team Providers Care Conservation Agent Name Role Phone Kalpana Baptiste MD Primary Care Provide r Encounter Details Date Type Department Care Team ([facility] st Contact Info) Description 02/12/2023 Abstract [facility] [address] [place] [address] Therese Brown Social History Tobacco Use Types Packs/Day Years Used Date Smoking Tobacco: Former Cigarettes Passive Smoke Exposure: Never Smokeless Tobacco: Never Alcohol Use Standard Drinks/Week Comments Never 0 (1 standard drink = 0.6 oz pur e alcohol) Depression Answer Date Recorded Patient Health Questionnaire-9 Score 0 08/21/2022 Housing Stability Answer Date Recorded What is your housing situation today? I have [place]a [place] 02/10/[address] you li ve. Do you have problems with any of the following? None of the above 02/10/2023 Food Insecurity Answer Date Recorded Within the past 12 months, y ou worried that your food would run out before you got money to buy more: Never True 02/10/2023 Within the past 12 months,th e food you bought just didn't last and you didn't have enough money to get more: Never True 01/2023 Transportation Answer Date Recorded In the past 12 months, has l ack of transportation kept you from medical appts, meetings, work or from getting things needed for daily living? No 02/10/2023 Utilities Answer Date Recorded In the past 12 months, has t he electric, gas, oil or water company threatened to shut off services in your home? No 02/10/2023 Depression Answer Date Recorded Patient Health Questionnaire-2 [...] Description 06/22/2024 1:00 PM EST Office Visit [facility] OPT[facility] [address] [place], [place] [phone] Beata Holt, OD 230 [place] [address] 08/05/2024 1:00 PM EDT Office Visit [facility] [address] [place] [address] Kalpana Baptiste MD 230 [place] [address] 08/12/2024 11:30 AM EDT Clinical Support [facility] [address] [place] [address] Amanda Waldrop RN documented as of this encounter Procedures Procedure Name Priority Date/Time Associated Diagnosis Comments COLONOSCOPY Routine 07/06/2015 documented in this encounter Results * Colonoscopy (07/06/2015) Colonoscopy Normal Normal Narrative Therese Brown - 07/06/2015 Recommended 5 year follow up us Historical Provider HEALTH MAINTENANCE Final Result documented in this encounter Visit Diagnoses Not on filedocumented in this encounter Additional Health Concerns Assessment Noted Time PHQ-9 Depression Total Score: 0 08/22/19 23 10:06 AM EDT documented as of this encounter Care Teams Conservation Agent Relationship Specialty Start Date End Date Kalpana Baptiste MD [address] [place] [phone] PCP - General Family Medicine 2/10/21 documented as of this encounter
--- OUTSIDE RECORDS SUMMARY | 2024-06-04 10:36 | XMS_ITS | Encounter Summary ---
Author Organization [employer] Address [address] [facility] [address] 7[address] [place] [address] Care Team Providers Care Plant Equipment Engineer Name Role Phone Kalpana Baptiste MD Primary Care Provide r Reason for Visit * Reason Comments Med Refill Encounter Details Date Type Department Care Team ([facility] st Contact Info) Description 02/11/2024 Refill [facility] MEDICINE 230 [place], [place] [phone] Caryl Biggs MD 230 [place] [address] Primary osteoarthritis of both knees Social History Tobacco Use Types Packs/Day Years Used Date Smoking Tobacco: Former Cigarettes Passive Smoke Exposure: Past Smokeless Tobacco: Never Alcohol Use Standard Drinks/Week [...] Description 06/22/2024 1:00 PM EST Office Visit [facility] OPTOMETRY [address] [place] [address] Jonathon, Beata, OD 230 [place] [address] 08/05/2024 1:00 PM EDT Office Visit [facility] MED[facility]INE 230 [place] [address] Kalpana Baptiste MD 230 [place] [address] 08/12/2024 11:30 AM EDT Clinical Support [facility] [address] [place] [phone] Amanda Waldrop RN documented as of this encounter Visit Diagnoses Diagnosis Primary osteoarthritis of both knees documented in this encounter Additional Health Concerns Assessment Noted Time PHQ-9 Depression Total Score: 0 08/22/19 23 10:06 AM EDT documented as of this encounter Care Teams Plant Equipment Engineer Relationship Specialty Start Date End Date Kalpana Baptiste MD [address] [place] [phone] PCP - General Family Medicine 06/14/20 documented as of this encounter
--- OUTSIDE RECORDS SUMMARY | 2024-06-04 10:36 | XMS_ITS | Referral Summary ---
Author Organization [facility] Address [address] [place] [address] Care Team Providers Care Large Sheetfed Press Operator Name Role Phone Kalpana Baptiste MD Primary Care Provider Encounters Date Type Department Care Team Description 03/12/2024 Refill [facility] [address] [place] [id number] Aylin Gunn PA from Last 3 Months Allergies Active Allergy Reactions Criticality Noted Date Comments Aspirin Flushing,Rash Penicillin Flushing,Rash,Angioedema High Medications vitamin D3 1,000 unit capsule Take 1,000 Units by mouth daily. 09/02/2012 Active citalopram (CeleXA) 10 mg tablet Take 10 mg by mouth daily. Active lisinopril (PRINIVIL,ZESTR IL) 20 mg tablet Take 1 tablet (20 mg total) by mouth daily. 08/11/2017 Active amLODIPine (NORVASC) 2.5 mg tablet Take 4 tablets (10 mg total) by mouth daily. 08/11/2017 Active metFORMIN (GLUCOPHAGE) 500 mg tablet Take 1 tablet (500 mg total) by mouth 2 times a day with meals. 08/11/[address] (PROTONIX) 40 mg tablet Take 1 tablet (40 mg total) by mouth 2 (two) times a day. 11/21/2020 Active traMADoL (ULTRAM) 50 mg tablet Take 50 mg by mouth every 6 hours as needed. Active allopurinoL (ZYLOPRIM) 100 mg tablet Take 1 tablet (100 mg total) by mouth once a day. 30 tablet 05/07/2023 Active mirtazapine (REMERON) 15 mg tablet Take 15 mg by mouth nightly. Active ruxolitinib (JAKAFI) 5 mg chemo tablet Take 1 tablet (5 mg total) by mouth 2 times a day. Take at about the same time each day. Take with or without food. 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 Anxiety disorder 06/24/2012 Depression 06/24/2012 Lower back pain 06/03/2012 Spleen enlargement 05/13/2012 Hypertension 03/06/2012 Asthma 03/06/2012 Hyperlipidemia 03/06/2012 Myelofibrosis 03/06/2012 Immunizations Name Administration Dates Next Due DTP-Haemophilus Influenzae T ype B Conjugate Vaccine 08/09/2013 Diphtheria, Tetanus Toxoids and Acellular Pertussis Vaccine, 5 Pertussis Antigens 08/10/2014,12/01/2013 Haemophilus Influenzae Type B Vaccine, PRP-OMP Conjugate 08/10/2014,12/01/2013 Hepatitis B adult (ENGERIX-B /RECOMBIVAX HB ADULT) vaccine 1 mL IM 08/10/2014,12/01/2013,08/09/2013 INFLUENZA, SPLIT VIRUS, TRIVALENT, PF 02/04/2024 ,01/26/2014 Influenza, Trivalent, MDV, Injectable 02/23/2014 Meningococcal Polysaccharide (Groups A, C, Y and W-135) Diphtheria Toxoid Conjugate Vaccine (MCV4P) 08/09/2013 Pneumococcal Polysaccharide Vaccine, 23 Valent 08/10/2014,08/09/2013 Poliovirus Vaccine, Inactivated 08/10/2014,12/01,08/09/2013 Social History Tobacco Use Types Packs/Day Years Used Date Smoking Tobacco: Former Smokeless Tobacco: Never Tobacco Cessation:Counseling Given: Not Answered Comments:: Comments Unknown Sex and Gender Information Value Date Recorded Sex Assigned at Not on file Legal Sex Female 8:19 AM EDT Gender Identity Not on file Sexual Orientation Not on file Last Filed Vital Signs Vital Sign Reading Time Taken Comments Blood Pressure 158/85 02/04/2024 10:51 AM EDT Pulse 84 02/04/2024 10:51 AM EDT Temperature 36.8 ??C (98.2 ??F) 02/04/2024 1 0:51 AM EDT Respiratory Rate 22 02/04/2024 10:5 1 AM EDT Oxygen Saturation 95% 02/04/2024 10: 51 AM EDT Inhaled Oxygen Concentration - - Weight 110.2 kg (243 lb 0.9 oz) 024 10:51 AM EDT Height 166.3 cm (5' 5.47 ) 03/06/2012 1 0:46 AM EDT Body Mass Index - - Plan of Treatment Upcoming Encounters Date Type Department Care Team (Late st Contact Info) Description 08/04/2024 12:00 PM EDT Lab [facility] ACC Draw Site Fifth Floor [address] [place] [address] 08/04/2024 1:00 PM EDT Follow-Up [facility] [address] [place] [address] Vivek Bernal MD PhD [address] [place] [address] Procedures * Due to [place] state law, this organization might not be sharing negative HIV tests. Procedure Name Priority Date/Time Associated Diagnosis Comments CBC AUTO DIFFERENTIAL STAT 02/04/2024 10:26 AM EDT Chronic nxqla-zmqncs-fkru disease (HCC) COMPREHENSIVE METABOLIC PANEL STAT 02/04/2024 10:26 AM EDT Chronic uomoh-etirrg-ubbi disease (HCC) HEMOGLOBIN A1C Routine 08/11/2017 10:41 AM EDT History of allogeneic stem cell transplant (CMS/HCC) (HCC) VITAMIN D, 25-HYDROXY, TOTAL, IMMUNOASSAY Routine 08/11/2017 10:41 AM EDT History of allogeneic stem cell transplant (CMS/HCC) (HCC) HEPATITIS C ANTIBODY, CONVERSION Routine 08/09/2013 3:20 PM EDT HIV-1/2 ANTIGEN/ANTIBODIES 4TH GENERATION W/REFLEX Routine 08/09/2013 3:20 PM EDT PHOSPHORUS Routine 10/08/2012 3:[address] CHEST W CONTRAST Routine 08/12/2012 9 :56 PM EDT from Last 3 Months or Most Recently Relevant to Health Maintenance Results * Due to [place] state law, this organization might not be sharing negative HIV tests. * (ABNORMAL) CBC Auto Differential (02/04/2024 10:26 AM EDT) WBC 4.6 3.8 - 10.8 10*3/uL 02/04/2024 10:53 AM EDT [facility] RBC 3.40(L) 3.80 - 5.10 10*6/uL 02/04/2024 10:53 AM EDT [facility] Hemoglobin 9.8(L) 11.7 - 15.5 g/dL 02/04/2024 10:53 AM EDT [facility] Hematocrit 30.3(L) 35.0 - 45.0 % 02/04/2024 10:53 AM EDT [facility] MCV 89.1 80.0 - 100.0 fL 02/04/2024 10:53 AM EDT [facility] MCH 28.8 27.0 - 33.0 pg 02/04/2024 10:53 AM EDT [facility] MCHC 32.3 32.0 - 36.0 g/dL 02/04/2024 10:53 AM EDT [facility] RDW 13.2 11.0 - 15.0 % 02/04/2024 10:53 AM EDT [facility] Platelets 241 140 - 400 10*3/uL 02/04/2024 10:53 AM EDT [facility] MPV 9.2 7.5 - 12.5 fL 02/04/2024 10:53 AM EDT [facility] Neutrophil % 44.4 % 02/04/2024 10:53 AM EDT [facility] Immature Grans % 0.9 0.0 - 0.9 % 02/04/2024 10:53 AM EDT [facility] Lymphocyte % 43.4 % 02/04/2024 10:53 AM EDT [facility] Monocyte % 10.2 % 02/04/2024 10:53 AM EDT [facility] Eosinophil % 0.9 % 02/04/2024 10:53 AM EDT [facility] Basophil % 0.2 % 02/04/2024 10:53 AM EDT [facility] Neutrophil # 2.06 1.50 - 7.80 10*3/uL 02/04/2024 10:53 AM EDT [facility] Immature Grans # 0.04(H) <=0.03 10*3/uL 02/04/2024 10:53 AM EDT [facility] Lymphocyte # 2.00 0.85 - 3.90 10*3/uL 02/04/2024 10:53 AM EDT [facility] Monocyte # 0.50 0.20 - 0.95 10*3/uL 02/04/2024 10:53 AM EDT [facility] Eosinophil # <0.03 0.02 - 0.50 10*3/uL 02/04/2024 10:53 AM EDT [facility] Basophil # <0.03 0.00 - 0.20 10*3/uL 02/04/2024 10:53 AM EDT [facility] nRBC % 0.0 /100 WBCs 02/04/2024 10:53 AM EDT [facility] nRBC # <0.01 <0.01 10*3/uL 02/04/2024 10:53 AM EDT [facility] Total Neutrophil #, Preliminary 2.06 1.50 - 7.80 10*3/uL 02/04/2024 10:53 AM EDT [facility] Blood Structure of peripheral vein / Unknown Venipuncture / Unknown 02/04/2024 10:26 AM EDT 02/04/2024 10:43 AM EDT us Aylin MORROW LAB BLOOD ORDERABLES Gabi acuna Result [facility] [address] [place] [address], * (ABNORMAL) Comprehensive Metabolic Panel (02/04/2024 10:26 AM EDT) NA 142 135 - 145 mmol/L 02/04/2024 11:17 AM EDT [facility] K 4.0 3.5 - 5.3 mmol/L 02/04/2024 11:17 AM EDT [facility] Cl 105 98 - 107 mmol/L 02/04/2024 11:17 AM EDT [facility] CO2 24 22 - 32 mmol/L 02/04/2024 11:17 AM EDT [facility] Anion Gap 13 5 - 15 02/04/2024 11:17 AM EDT [facility] Glucose 110(H) 65 - 99 mg/dL 02/04/2024 11:17 AM EDT [facility] Creatinine 1.57(H) 0.50 - 1.20 mg/dL 02/04/2024 11:17 AM EDT [facility] Calcium 8.5(L) 8.6 - 10.5 mg/dL 02/04/2024 11:17 AM EDT [facility] Total Protein 7.2 6.0 - 8.0 g/dL 02/04/2024 11:17 AM ED [facility] Albumin 4.5 3.5 - 5.2 g/dL 02/04/2024 11:17 AM [facility] Bilirubin, Total 0.3 0.2 - 1.2 mg/dL 02/04/2024 11:17 AM ED [facility] Alkaline Phosphatase 71 35 - 129 U/L 02/04/2024 11:17 AM [facility] AST 37 10 - 40 U/L 02/04/2024 11:17 AM [facility] ALT 43(H) 10 - 40 U/L 02/04/2024 11:17 AM [facility] BUN 19 7 - 23 mg/dL 02/04/2024 11:17 AM [facility] eGFR 38(L) >=60 mL/min/1 .73m2 02/04/2024 11:17 AM [facility] Comment:The estimated glomer ular filtration rate (eGFR) is calculated using a new formula developed by the NKF-ASN task force to eliminate race-based correction factors. The new formula uses serum/plasma creatinine, age, and gender to determine eGFR. A value below 60mls/min might indicate kidney disease and will be flagged. For additional information, see Brice et al, Am J Kidney Dis. 2021;79(2):268- 288, A Unifying Approach for GFR estimation: Recommendations of the NKF-ASN Task Force on Reassessing the Inclusion of Race in Diagnosing Kidney Disease . Globulin, Total 2.7 2.1 - 4.2 g/dL 02/04/2024 11:17 AM [facility] A/G Ratio 1.7 1.5 - 3.0 02/04/2024 11:17 AM [facility] Blood Structure of peripheral vein / Unknown Venipuncture / Unknown 02/04/2024 10:26 AM EDT 02/04/2024 10:43 AM EDT Aylin MORROW LAB BLOOD ORDERABLES Gabi l Result Performing Organization Address [facility]/ZIP Co de Phone Number [facility] [address] [place] [phone], * (ABNORMAL) Vitamin D, 25-Hydroxy, Total, Immunoassay (08/11/2017 10:41 AM EDT) Calcidiol+ercalc idiol 24(L) 30 - 100 ng/mL 08/11/2017 7:50 PM EDT [facility] Comment: Vitamin D Status ? 25-OH Vitamin D: Deficiency: ?<20 ng/mL Insufficiency: ? 20 - 29 ng/mL Optimal: ? > or = 30 ng/mL For 25-OH Vitamin D testing on patients on D2-supplementation and patients for whom quantitation of D2 and D3 fractions is required, the QuestAssureD(TM) 25-OH VIT D, (D2,D3), LC/MS/MS is recommended: order code 10653 (patients >2yrs). For more information on this test, go to: http://education.Sina Weibo/faq/EGX800 (This link is being provided for informational/educational purposes only.) Blood specimen (specimen) Structure of peripheral vein / Unknown Venipuncture / Unknown 08/11/2017 10:41 AM EDT 08/11/2017 10:57 AM EDT Narrative GIO CRUZ - 08/11/2017 7:50 PM EDT [facility] Received Date:[id number] Aylin MORROW LAB BLOOD ORDERABLES Gabi l Result Performing Organization Address City/[facility]/ZIP Co de Phone Number GIO CRUZ [address] [facility] 3rd Floor, [address] [place] [id number], [facility] [address], [address] [place] [address], * (ABNORMAL) Hemoglobin A1c (08/11/2017 10:41 AM EDT) Pathologist [facility] [place] [facility] Hemoglobin A1C 5.8(H) <5.7 % of total Hgb 08/11/2017 7:12 PM EDT [facility] Comment: For someone without known diabetes, a hemoglobin A1c value between 5.7% and 6.4% is consistent with prediabetes and should be confirmed with a follow-up test. For someone with known diabetes, a value <7% indicates that their diabetes is well controlled. A1c targets should be individualized based on duration of diabetes, age, comorbid conditions, and other considerations. This assay result is consistent with an increased risk of diabetes. Currently, no consensus exists regarding use of hemoglobin A1c for diagnosis of diabetes for children. eAG (MG/DL) 120 (calc) 08/11/2017 7:12 PM EDT [facility] eAG (MMOL/L) 6.6 (calc) 08/11/2017 7:12 PM EDT [facility] Blood specimen (specimen) Structure of peripheral vein / Unknown Venipuncture / Unknown 08/11/2017 10:41 AM EDT 08/11/2017 10:57 AM EDT Narrative GIO CRUZ - 08/11/2017 7:12 PM EDT [facility] Received Date: Aylin MORROW LAB BLOOD ORDERABLES Gabi l Result GIO [facility] [address] [facility] 3rd Floor, [address] [place] [address], [facility] [address], [address] [place] [address], * HEPATITIS C ANTIBODY, CONVERSION (08/09/2013 3:20 PM EDT) Hepatitis C Antibody 0.06 <1.00 [facility] HCV Interpretation Negative [facility] Comment: Not infected with HCV, unless recent infection is suspected or other evidence exists to indicate HCV infection. 08/09/2013 3:20 PM EDT 08/09/2013 4:45 PM EDT us Vivek Bernal MD PhD LAB HISTORICAL RESULTS Final Re sult Performing Organization Address City/[facility]/ZIP Co de Phone Number [facility] [address] [place] [address], [place] * HIV-1/2 Antigen/Antibodies 4th Generation w/Reflex (08/09/2013 3:20 PM EDT) Pathologist [facility] [place] [facility] HIV 1,2 Ab/Ag Stat NEGATIVE NEGATIVE [facility] 08/09/2013 3:20 PM EDT 08/09/2013 4:45 PM EDT us Vivek Bernal MD PhD LAB BLOOD ORDERABLES Final Resu lt Performing Organization Address [facility] Co de Phone Number [facility] [address] [place] [address], [place] * Phosphorus (10/08/2012 3:00 AM EDT) Pathologist [facility] [place] [facility] Phosphorus Blood 3.6 2.5 - 4.5 mg/dL [facility] 10/08/2012 3:00 AM EDT 10/08/2012 4:14 AM EDT us Neida Sotelo LAB BLOOD ORDERABLES Final Re sult Performing Organization Address [facility] Co de Phone Number [facility] [address] [place] [address], [place] * CT Chest W Contrast (08/12/2012 9:56 PM EDT) Anatomical Region Laterality Modality Body Computed Tomogra phy 08/12/2012 11:4 0 AM EDT Impressions 08/13/2012 9:51 AM EDT 1. Occasional very small/mild areas of groundglass attenuation in the upper lobes are nonspecific but could represent small foci of infection/inflammation. 2. 2 mm right lower lobe pulmonary nodule is indeterminate and for which a followup low dose CT thorax in 12 months is recommended if patient has a history smoking or other risk factors for lung cancer per Fleischner recommendations listed below. Under the Fleischner Society 2005 recommendations; a nodule size of 4 mm or less in a low risk patient (no smoking history and normal immune system) no followup is needed. In a high risk patient (smoking history or other risk factor for lung cancer) a 12 month a followup is recommended. Then, if there is no change in the nodule(s) a low-risk patient does not need followup. If there is no change in a high risk patient, followup at 12 months. Correlate clinically. COMMUNICATION: ??Per this written report. Contrast Information : OMNIPAQUE 350: 100 ML, IV POWER INJ Narrative 08/13/2012 9:51 AM EDT EXAMINATION: ??Helical CT of the Chest INDICATION: History of myelofibrosis post stem cell transplant with fevers. TECHNIQUE: Contrast enhanced CT was performed following administration of Omnipaque 350 intravenous contrast. Coronal and sagittal reformatted sequences were provided. COMPARISON: None FINDINGS: LUNGS AND PLEURA: No pleural effusion or pneumothorax. Patent central airways. Very small areas of groundglass attenuation in the anterior left upper lobe on image 69 and 100 and in the posterior right upper lobe on image 82. Bilateral lower lobe linear atelectasis/scarring. 2 mm noncalcified right lower lobe pulmonary nodule image 140 of series 5 is indeterminate. No other pulmonary nodules. MEDIASTINUM: No enlarged hilar or mediastinal lymph nodes. Normal sized heart without pericardial effusion. No detectable coronary artery calcifications. Normal diameter thoracic aorta with no detectable atherosclerotic calcifications. Normal sized pulmonary arteries. LOWER NECK: Unremarkable UPPER ABDOMEN (limited): See separate CT abdomen report BONES: ?? Diffuse increased bone density compatible with history of myelofibrosis. Preservation of vertebral body heights. No discrete osseous lesions. Procedure Note Jeremy Curiel MD - 01/02/2017 EXAMINATION: Helical CT of the Chest INDICATION: History of myelofibrosis post stem cell transplant with fevers. TECHNIQUE: Contrast enhanced CT was performed following administration of Omnipaque 350 intravenous contrast. Coronal and sagittal reformatted sequences were provided. COMPARISON: None FINDINGS: LUNGS AND PLEURA: No pleural effusion or pneumothorax. Patent central airways. Very small areas of groundglass attenuation in the anterior left upper lobe on image 69 and 100 and in the posterior right upper lobe on image 82. Bilateral lower lobe linear atelectasis/scarring. 2 mm noncalcified right lower lobe pulmonary nodule image 140 of series 5 is indeterminate. No other pulmonary nodules. MEDIASTINUM: No enlarged hilar or mediastinal lymph nodes. Normal sized heart without pericardial effusion. No detectable coronary artery calcifications. Normal diameter thoracic aorta with no detectable atherosclerotic calcifications. Normal sized pulmonary arteries. LOWER NECK: Unremarkable UPPER ABDOMEN (limited): See separate CT abdomen report BONES: Diffuse increased bone density compatible with history of myelofibrosis. Preservation of vertebral body heights. No discrete osseous lesions. IMPRESSION: 1. Occasional very small/mild areas of groundglass attenuation in the upper lobes are nonspecific but could represent small foci of infection/inflammation. 2. 2 mm right lower lobe pulmonary nodule is indeterminate and for which a followup low dose CT thorax in 12 months is recommended if patient has a history smoking or other risk factors for lung cancer per Fleischner recommendations listed below. Under the Fleischner Society 2005 recommendations; a nodule size of 4 mm or less in a low risk patient (no smoking history and normal immune system) no followup is needed. In a high risk patient (smoking history or other risk factor for lung cancer) a 12 month a followup is recommended. Then, if there is no change in the nodule(s) a low-risk patient does not need followup. If there is no change in a high risk patient, followup at 12 months. Correlate clinically. COMMUNICATION: Per this written report. Contrast Information : OMNIPAQUE 350: 100 ML, IV POWER INJ us Historical Conversion Provider IMG CT PROCEDURES Final Result from Last 3 Months or Most Recently Relevant to Health Maintenance Insurance [address] [place] [address] Advance Directives Documents on File Type Date Recorded Patient Barber Expl anation Advance Directive 08/27/2012 12:00 AM Adva nce Care Directives Advance Directive 08/27/2012 12:00 AM Adva nce Care Directives Advance Directive 07/22/2012 12:00 AM emre Silva edical Dec Making (Adv.Dir) Care Teams Large Sheetfed Press Operator Relationship Specialty Start Date End Date Kalpana Baptiste MD [address] [place] [phone] PCP - General 11/22/20
--- OUTSIDE RECORDS SUMMARY | 2024-06-04 10:36 | XMS_ITS | Encounter Summary ---
Author Organization [employer] Address [address] [place] [address] Care Team Providers Care Iron Cutter Name Role Phone Kalpana Baptiste MD Primary Care Provide r Reason for Visit * Reason Comments Med Refill Encounter Details Date Type Department Care Team ([facility] st Contact Info) Description 01/28/2024 Refill [facility] MEDICINE [address] [place], [place] [phone] Caryl Biggs MD [address] [place] [address] Primary osteoarthritis of both knees Social History [...] SYSTEM [facility] OPTOMETRY [address] [place] [address] Jonathon, Beata, OD [address] [place] [address] 08/05/2024 1:00 PM EDT Office Visit [facility] MEDICINE [address] [place] [address] Kalpana Baptiste MD [address] [place] [address] 08/12/2024 11:30 AM EDT Clinical Support [facility] MEDICINE [address] [place] [phone] Amanda Waldrop RN documented as of this encounter Visit Diagnoses Diagnosis Primary osteoarthritis of both knees documented in this encounter Additional Health Concerns Assessment Noted Time PHQ-9 Depression Total Score: 0 08/22/19 23 10:06 AM EDT documented as of this encounter Care Teams Iron Cutter Relationship Specialty Start Date End Date Kalpana Baptiste MD [address] [place] [phone] PCP - General Family Medicine 06/14/20 documented as of this encounter
--- OUTSIDE RECORDS SUMMARY | 2024-06-04 10:36 | XMS_ITS | Encounter Summary ---
Author Organization [facility] Address [address] [phone] Phone Care Team Providers Care Government Services Professional Name Role Phone Kalpana Baptiste MD Primary Care Provide r Encounter Details Date Type Department Care Team ([facility] Contact Info) Description 05/10/2024 Documentation Only [facility] [address] [place] [phone] Eben Us MD [address] [place] [phone] Social History Tobacco Use Types Packs/Day Years [...] Department Care Team (Late Contact Info) Description 06/14/2024 4:15 PM EST Office Visit [facility] [address] [place] [address] Eben Us MD [address] [phone] documented as of this encounter Visit Diagnoses Not on filedocumented in this encounter Care Teams Government Services Professional Relationship Specialty Start Date End Date Kalpana Baptiste MD [address] [place] [phone] PCP - General Internal Medicine 07/03/21 documented as of this encounter
--- OUTSIDE RECORDS SUMMARY | 2024-06-04 10:36 | XMS_ITS | Encounter Summary ---
Author Organization [employer] Address [address] [facility] [address] 7t [place] [address] Care Team Providers Care Beeswax Bleacher Name Role Phone Kalpana Baptiste MD Primary Care Provide r Reason for Visit * Reason Comments Med Refill Encounter Details Date Type Department Care Team ([facility] st Contact Info) Description 02/18/2023 Refill [facility] [address] [place], [place] [phone] Kalpana Baptiste MD 230 [place] [address] Primary osteoarthritis of both knees Social History [...] Description 06/22/2024 1:00 PM EST Office Visit [facility] [address] [place] [address] JonathonBeata perkins, OD 230 [place] [address] 08/05/2024 1:00 PM EDT Office Visit [facility] 230 [place] [address] Kalpana Baptiste MD 230 [place] [address] 08/12/2024 11:30 AM EDT Clinical Support [facility] [address] [place] [address] Amanda Waldrop RN documented as of this encounter Visit Diagnoses Diagnosis Primary osteoarthritis of both knees documented in this encounter Additional Health Concerns Assessment Noted Time PHQ-9 Depression Total Score: 0 08/22/19 23 10:06 AM EDT documented as of this encounter Care Teams Beeswax Bleacher Relationship Specialty Start Date End Date Kalpana Baptiste MD [address] [place] [phone] PCP - General Family Medicine 06/14/20 documented as of this encounter
--- OUTSIDE RECORDS SUMMARY | 2024-06-04 10:36 | XMS_ITS | Encounter Summary ---
Author Organization [employer] Address 75 [facility] 7t [place] [address] Care Team Providers Care Consulting Analyst Name Role Phone Kalpana Baptiste MD Primary Care Provide r Reason for Visit * Reason Comments Med Refill Encounter Details Date Type Department Care Team (Late Contact Info) Description 12/09/2022 Refill [facility] 230 [place], [place] [phone] Abe Dial AGNP Indigestion; Overactive bladder Social History Tobacco Use Types [...] Description 06/22/2024 1:00 PM EST Office Visit [facility] [address] [place], [place] [phone] Beata Holt, OD 230 [place], [place] [phone] 08/05/2024 1:00 PM EDT Office Visit [address] [address] Kalpana Baptiste MD 230 [place] [address] 08/12/2024 11:30 AM EDT Clinical Support [address] [address] Amanda Waldrop RN documented as of this encounter Visit Diagnoses Diagnosis Indigestion Dyspepsia and other specified disorders of function of stomach Overactive bladder Hypertonicity of bladder documented in this encounter Additional Health Concerns Assessment Noted Time PHQ-9 Depression Total Score: 0 08/22/19 23 10:06 AM EDT documented as of this encounter Care Teams Consulting Analyst Relationship Specialty Start Date End Date Kalpana Baptiste MD [address] [place] [address] PCP - General Family Medicine 06/14/20 documented as of this encounter
--- OUTSIDE RECORDS SUMMARY | 2024-06-04 10:36 | XMS_ITS | Clinical Summary ---
Author Organization [facility] Address [address] [place] [address] Care Team Providers Care Chemical Process Project Engineer Name Role Phone Kalpana Baptiste MD Primary Care Provider Allergies Active Allergy Reactions Criticality Noted Date [...] 03/29/2015 Acute pharyngitis 12/29/2013 Cough 06/16/2013 Chronic etgqb-cwebfc-qywl disease 05/19/2013 Headache 03/24/2013 Dysuria 12/30/2012 Abdominal pain, epigastric 10/29/2012 Status post bone marrow transplant 08/27/2012 Anxiety disorder 06/24/2012 Depression 06/24/2012 Lower back pain 06/03/2012 Spleen enlargement 05/13/2012 Hypertension 03/06/2012 Asthma 03/06/2012 Hyperlipidemia 03/06/2012 Myelofibrosis 03/06/2012 Encounters Date Type Department Care Team Description 03/12/2024 Refill [facility] [address] [place] [address] Aylin Gunn PA from Last 3 Months Immunizations Name Administration Dates Next Due DTP-Haemophilus [...] Info) Description 08/04/2024 12:00 PM EDT Lab [facility] ACC Draw Site Fifth Floor [address] [place] [address] 08/04/2024 1:00 PM EDT Follow-Up [facility] ACC Building BMT Clinic [address] [place] [address] Vivek Bernal MD PhD [address] [place] [address] Health Maintenance Due Date Last Done Comments Cervical Cancer Screening 1963 Cologuard 1963 Colon Cancer Screening 1965 Colonoscopy 1963 FOBT / Fit Test 1963 HPV and Pap Smear 1963 PTH 1963 Pap Smear 1963 Sigmoidoscopy [address] Lung Cancer Screening (Baseline) 08/12/2013 08/12/2012 Phosphorus 10/08/2013 10/08/2012, 09/2012, 10/06/2012, Additional history exists 25 Hydroxy / Vitamin D 08/11/2018 8, 08/10/2014, 02/03/2013, Additional history exists Urine Microalbumin 01/24/2023 01/24/2022 RSV Vaccine (60+ years old a nd patients) (1 - Risk 60-74 years 1-dose series) 2023 COVID-19 Vaccine (4 - 2023-2 5 season) 2024 05/08/2021, 07/05/2020, 06/06/2020 Alcohol/Substance Use Screening 05/05/2024 Depression Evaluation 05/05/2024 Social Drivers of Health Cindy ual Screening 05/05/2024 Hemoglobin A1C 05/27/2024 11/25/2023, 01/04, 08/21/2022, Additional history exists Basic Metabolic Panel 08/04/2024 02/04/2024 , 08/06/2023, 06/03/2023, Additional history exists Mammogram 08/21/2024 08/21/2022, 02/02, 02/11/2018 Hemoglobin 02/03/2025 02/04/2024, 04/0 07/2023, 05/07/2023, Additional history exists Pneumococcal Vaccine: Pediat maria alejandra (0-5 Years) and At-Risk Patients (6-64 Years) (4 of 4 - PPSV23 or PCV20) 2028 03/24/2016, 03/24/2016, 08/10/2014, Additional history exists DTaP,Tdap,and Td Vaccines (6 - Td or Tdap) 01/18/2029 01/18/2019, 08/10/2014, 12/01/2013, Additional history exists CT Lung Cancer Screening (12 months, previous LungRADS 1 or 2) Discontinued 08/12/2012 HIV Screening Completed 08/09/2013 Hepatitis C Screening Completed 08/09/2013 Hepatitis B Vaccines Completed 11/15/2014, 08/10/2014, 12/01/2013, Additional history exists Zoster Vaccines Completed 08/21/2021, 08/03, 06/13/2021, Additional history exists Influenza Vaccine Completed 02/04/2024, , 02/20/2021, Additional history exists Procedures * Due to [place] state law, this organization might not be sharing negative HIV tests. Procedure Name Priority Date/Time Associated Diagnosis Comments CBC AUTO DIFFERENTIAL STAT 02/04/2024 10:26 AM EDT Chronic wiojh-kjufgj-ihox disease (HCC) COMPREHENSIVE METABOLIC PANEL STAT 02/04/2024 10:26 AM EDT Chronic kdzhb-spomal-azhf disease (HCC) HEMOGLOBIN A1C Routine 08/11/2017 10:41 [...] to Health Maintenance Results * Due to [place] state law, this organization might not be sharing negative HIV tests. * (ABNORMAL) CBC Auto Differential (02/04/2024 10:26 AM EDT) WBC 4.6 3.8 - 10.8 10*3/uL 02/04/2024 10:53 AM EDT [facility] RBC 3.40(L) 3.80 - 5.10 10*6/uL 02/04/2024 10:53 AM EDT [facility] Hemoglobin 9.8(L) 11.7 - 15.5 g/dL 02/04/2024 10:53 AM EDT [facility] Hematocrit 30.3(L) 35.0 - 45.0 % 02/04/2024 10:53 AM EDT [facility] MCV 89.1 80.0 - 100.0 fL 02/04/2024 10:53 AM EDT [facility] MCH 28.8 27.0 - 33.0 pg 02/04/2024 10:53 AM EDT [facility] MCHC 32.3 32.0 - 36.0 g/dL 02/04/2024 10:53 AM EDT [facility] RDW 13.2 11.0 - 15.0 % 02/04/2024 10:53 AM EDT [facility] Platelets 241 140 - 400 10*3/uL 02/04/2024 10:53 AM EDT [facility] MPV 9.2 7.5 - 12.5 fL 02/04/2024 10:53 AM EDT [facility] Neutrophil % 44.4 % 02/04/2024 10:53 AM EDT [facility] Immature Grans % 0.9 0.0 - 0.9 % 02/04/2024 10:53 AM EDT [facility] Lymphocyte % 43.4 % 02/04/2024 10:53 AM EDT [facility] Monocyte % 10.2 % 02/04/2024 10:53 AM EDT [facility] Eosinophil % 0.9 % 02/04/2024 10:53 AM EDT [facility] Basophil % 0.2 % 02/04/2024 10:53 AM EDT [facility] Neutrophil # 2.06 1.50 - 7.80 10*3/uL 02/04/2024 10:53 AM EDT [facility] Immature Grans # 0.04(H) <=0.03 10*3/uL 02/04/2024 10:53 AM EDT [facility] Lymphocyte # 2.00 0.85 - 3.90 10*3/uL 02/04/2024 10:53 AM EDT [facility] Monocyte # 0.50 0.20 - 0.95 10*3/uL 02/04/2024 10:53 AM EDT [facility] Eosinophil # <0.03 0.02 - 0.50 10*3/uL 02/04/2024 10:53 AM EDT [facility] Basophil # <0.03 0.00 - 0.20 10*3/uL 02/04/2024 10:53 AM EDT [facility] nRBC % 0.0 /100 WBCs 02/04/2024 10:53 AM EDT [facility] nRBC # <0.01 <0.01 10*3/uL 02/04/2024 10:53 AM EDT [facility] Total Neutrophil #, Preliminary 2.06 1.50 - 7.80 10*3/uL 02/04/2024 10:53 AM EDT [facility] Blood Structure of peripheral vein / Unknown Venipuncture / Unknown 02/04/2024 10:26 AM EDT 02/04/2024 10:43 AM EDT Aylin MORROW LAB BLOOD ORDERABLES Gabi acuna Result [facility] [address] [place] [address], * (ABNORMAL) Comprehensive Metabolic Panel (02/04/2024 10:26 AM EDT) NA 142 135 - 145 mmol/L 02/04/2024 11:17 AM EDT [facility] K 4.0 3.5 - 5.3 mmol/L 02/04/2024 11:17 AM EDT [facility] Cl 105 98 - 107 mmol/L 02/04/2024 11:17 AM EDT [facility] CO2 24 22 - 32 mmol/L 02/04/2024 11:17 AM EDT [facility] Anion Gap 13 5 - 15 02/04/2024 11:17 AM EDT [facility] Glucose 110(H) 65 - 99 mg/dL 02/04/2024 11:17 AM EDT [facility] Creatinine 1.57(H) 0.50 - 1.20 mg/dL 02/04/2024 11:17 AM EDT [facility] Calcium 8.5(L) 8.6 - 10.5 mg/dL 02/04/2024 11:17 AM EDT [facility] Total Protein 7.2 6.0 - 8.0 g/dL 02/04/2024 11:17 AM EDT [facility] Albumin 4.5 3.5 - 5.2 g/dL 02/04/2024 11:17 AM Conf[facility] Bilirubin, Total 0.3 0.2 - 1.2 mg/dL 02/04/2024 11:17 AM EDT [facility] Alkaline Phosphatase 71 35 - 129 U/L 02/04/2024 11:17 AM EDT [facility] AST 37 10 - 40 U/L 02/04/2024 11:17 AM EDT [facility] ALT 43(H) 10 - 40 U/L 02/04/2024 11:17 AM ConfabbT [facility] BUN 19 7 - 23 mg/dL 02/04/2024 11:17 AM EDT [facility] eGFR 38(L) >=60 mL/min/1 .73m2 02/04/2024 11:17 AM EDT [facility] Comment:The estimated glomer ular [...] 2.1 - 4.2 g/dL 02/04/2024 11:17 AM EDT [facility] A/G Ratio 1.7 1.5 - 3.0 02/04/2024 11:17 AM EDT [facility] Blood Structure of peripheral vein / Unknown Venipuncture / Unknown 02/04/2024 10:26 AM EDT 02/04/2024 10:43 AM EDT us Aylin MORROW LAB BLOOD ORDERABLES Gabi l Result [facility] [address] [place] [address], * (ABNORMAL) Vitamin D, 25-Hydroxy, Total, Immunoassay (08/11/2017 10:41 AM EDT) Calcidiol+ercalc idiol 24(L) 30 - 100 ng/mL 08/11/2017 7:50 PM EDT [facility] Comment: Vitamin D Status ? 25-OH Vitamin D: Deficiency: ?<20 ng/mL Insufficiency: ? 20 - 29 ng/mL Optimal: ? > or = 30 ng/mL For 25-OH Vitamin D testing on patients on D2-supplementation and patients for whom quantitation of D2 and D3 fractions is required, the QuestAssureD(TM) 25-OH VIT D, (D2,D3), LC/MS/MS is recommended: order code [id number] (patients >2yrs). For more information on this test, go to: http://education.Vizify/faq/DDM658 (This link is being provided for informational/educational purposes only.) Blood specimen (specimen) Structure of peripheral vein / Unknown Venipuncture / Unknown 08/11/2017 10:41 AM EDT 08/11/2017 10:57 AM EDT Mariajose CRUZ - 08/11/2017 7:50 PM EDT [facility] Received Date:[id number] Aylin MORROW LAB BLOOD ORDERABLES Gabi l Result [facility] [address] [facility] 3rd Floor, [place] [address], [employer] [facility] [address] [facility] 3rd Floor, [place] [address], * (ABNORMAL) Hemoglobin A1c (08/11/2017 10:41 AM EDT) Hemoglobin A1C 5.8(H) <5.7 % of total Hgb 08/11/2017 7:12 PM EDT [facility] Comment: For someone without known diabetes, a [...] (MG/DL) 120 (calc) 08/11/2017 7:12 PM EDT [facility] eAG (MMOL/L) 6.6 (calc) 08/11/2017 7:12 PM EDT [facility] Blood specimen (specimen) Structure of peripheral vein / Unknown Venipuncture / Unknown 08/11/2017 10:41 AM EDT 08/11/2017 10:57 AM EDT [facility] [employer] NANCY - 08/11/2017 7:12 PM EDT [facility] Received Date:[id number] us Aylin Gunn PA LAB BLOOD ORDERABLES Gabi l Result [facility] [address] [facility] 3rd Floor, [place] [address], [place] [phone] [facility] [address], [place] [address], [place] [phone] * HEPATITIS C ANTIBODY, CONVERSION (08/09/2013 3:20 PM EDT) Hepatitis C Antibody 0.06 <1.00 [facility] HCV Interpretation Negative [facility] Comment: Not infected with HCV, unless recent infection is suspected or other evidence exists to indicate HCV infection. 08/09/2013 3:20 PM EDT 08/09/2013 4:45 PM EDT Vivek Bernal MD PhD LAB HISTORICAL RESULTS Final Re sult [facility] [address] [place] [address], [place] * HIV-1/2 Antigen/Antibodies 4th Generation w/Reflex (08/09/2013 3:20 PM EDT) HIV 1,2 Ab/Ag Stat NEGATIVE NEGATIVE [facility] 08/09/2013 3:20 PM EDT 08/09/2013 4:45 PM EDT Vivek Bernal MD PhD LAB BLOOD ORDERABLES Final Resu lt [facility] [address] [place] [address], [place] * Phosphorus (10/08/2012 3:00 AM EDT) Phosphorus Blood 3.6 2.5 - 4.5 mg/dL [facility] 10/08/2012 3:00 AM EDT 10/08/2012 4:14 AM EDT us Neida Sotelo LAB BLOOD ORDERABLES Final Re sult [facility] [address] [place] [address], [place] * CT Chest W Contrast (08/12/2012 [...] Most Recently Relevant to Health Maintenance Insurance Advance Directives Documents on File Type Date Recorded Patient Model Making Supervisor Expl anation Advance Directive 08/27/2012 12:00 AM Adva nce Care Directives Advance Directive 08/27/2012 12:00 AM Adva nce Care Directives Advance Directive 07/22/2012 12:00 AM sf M edical Dec Making (Adv.Dir) Care Teams Chemical Process Project Engineer Relationship Specialty Start Date End Date Kalpana Baptiste MD [address] [place] [address] PCP - General 11/22/20
--- OUTSIDE RECORDS SUMMARY | 2024-06-04 10:36 | XMS_ITS | Encounter Summary ---
Author Organization [employer] Address [address] [facility] 7t [place] [address] Care Team Providers Care Associate Product Integrity Engineer Name Role Phone Kalpana Baptiste MD Primary Care Provide r Reason for Visit * Reason Comments Med Refill Encounter Details Date Type Department Care Team ([facility] Contact Info) Description 12/19/2022 Refill [facility] [address] [place], [place] [phone] Kalpana Baptiste MD 230 [place] [address] Primary osteoarthritis of both knees Social History [...] Upcoming Encounters Date Type Department Care Team ([facility] Contact Info) Description 06/22/2024 1:00 PM EST Office Visit [facility] [address] [place], [place] [phone] Beata Holt, OD 230 [place] [address] 08/05/2024 1:00 PM EDT Office Visit [address] [phone] Kalpana Baptiste MD [address] [place] [address] 08/12/2024 11:30 AM EDT Clinical Support [address] [address] Amanda Waldrop, NEGAR documented as of this encounter Visit Diagnoses Diagnosis Primary osteoarthritis of both knees documented in this encounter Additional Health Concerns Assessment Noted Time PHQ-9 Depression Total Score: 0 08/22/19 23 10:06 AM EDT documented as of this encounter Care Teams Associate Product Integrity Engineer Relationship Specialty Start Date End Date Kalpana Baptiste MD [address] [place] [address] PCP - General Family Medicine 06/14/20 documented as of this encounter
--- OUTSIDE RECORDS SUMMARY | 2024-06-04 10:36 | XMS_ITS | Encounter Summary ---
Author Organization [employer] Address [address] [facility] [address] 7t [place] [address] Care Team Providers Care Area Safety Manager Name Role Phone Kalpana Baptiste MD Primary Care Provide r Reason for Visit * Reason Comments Med Refill Encounter Details Date Type Department Care Team ([facility] st Contact Info) Description 02/12/2024 Refill [facility] 230 [place], [place] [phone] Caryl Biggs MD 230 [place] [address] Primary osteoarthritis of both knees Social History [...] Office Visit [facility] [address] [place] [address] Jonathon, Beata, OD 230 [place] [address] 08/05/2024 1:00 PM EDT Office Visit [facility] 230 [place] [address] Kalpana Baptiste MD [address] [place] [address] 08/12/2024 11:30 AM EDT Clinical Support [facility] [address] [place] [phone] Amanda Waldrop RN documented as of this encounter Visit Diagnoses Diagnosis Primary osteoarthritis of both knees documented in this encounter Additional Health Concerns Assessment Noted Time PHQ-9 Depression Total Score: 0 08/22/19 23 10:06 AM EDT documented as of this encounter Care Teams Area Safety Manager Relationship Specialty Start Date End Date Kalpana Baptiste MD [address] [place] [address] PCP - General Family Medicine 06/14/20 documented as of this encounter
--- OUTSIDE RECORDS SUMMARY | 2024-06-04 10:36 | XMS_ITS | Encounter Summary ---
Author Organization [employer] Address [address] [facility] 7t [place] [address] Care Team Providers Care Port Drier Name Role Phone Kalpana Baptiste MD Primary Care Provide r Reason for Visit * Reason Comments Med Refill Encounter Details Date Type Department Care Team ([facility] Contact Info) Description 01/24/2023 Refill [facility] 230 [place], [place] [phone] Kalpana Baptiste MD 230 [place] [address] Primary osteoarthritis of both knees Social History [...] Department Care Team ([facility] Contact Info) Description 06/22/2024 1:00 PM EST Office Visit [facility] [address] [place] [address] Beata Holt, OD 230 [place] [address] 08/05/2024 1:00 PM EDT Office Visit [address] [phone] Kalpana Baptiste MD [address] [place] [address] 08/12/2024 11:30 AM EDT Clinical Support [address] [address] Amanda aWldrop, NEGAR documented as of this encounter Visit Diagnoses Diagnosis Primary osteoarthritis of both knees documented in this encounter Additional Health Concerns Assessment Noted Time PHQ-9 Depression Total Score: 0 08/22/19 23 10:06 AM EDT documented as of this encounter Care Teams Port Drier Relationship Specialty Start Date End Date Kalpana Baptiste MD [address] [place] [address] PCP - General Family Medicine 06/14/20 documented as of this encounter
--- OUTSIDE RECORDS SUMMARY | 2024-06-04 10:36 | XMS_ITS | Encounter Summary ---
Author Organization [employer] Address [address] [facility] [address] 7t [place] [address] Care Team Providers Care Analytical Lab Analyst Name Role Phone Kalpana Baptiste MD Primary Care Provide r Reason for Visit * Reason Comments Med Refill Encounter Details Date Type Department Care Team ([facility] st Contact Info) Description 02/04/2024 Refill [facility] MED[facility] 230 [place], [place] [phone] Caryl Biggs MD [address] [place] [address] Social History Tobacco Use Types Packs/Day Years [...] 06/22/2024 1:00 PM EST Office Visit [facility] OPT[facility]RY [address] [place], [place] [phone] Beata Holt, OD 230 [place] [address] 08/05/2024 1:00 PM EDT Office Visit [facility] MED[facility] [address] [place] [address] Kalpana Baptiste MD [address] [place] [address] 08/12/2024 11:30 AM EDT Clinical Support [facility] [address] [place] [phone] Amanda Waldrop, RN documented as of this encounter Visit Diagnoses Not on filedocumented in this encounter Additional Health Concerns Assessment Noted Time PHQ-9 Depression Total Score: 0 08/22/19 23 10:06 AM EDT documented as of this encounter Care Teams Analytical Lab Analyst Relationship Specialty Start Date End Date Kalpana Baptiste MD [address] [place] [address] PCP - General Family Medicine 06/14/20 documented as of this encounter
--- OUTSIDE RECORDS SUMMARY | 2024-06-04 10:36 | XMS_ITS | Encounter Summary ---
Author Organization [employer] Address [address] [facility] [address] 7t [place] [address] Care Team Providers Care Speech Correction Consultant Name Role Phone Kalpana Baptiste MD Primary Care Provide r Reason for Visit * Reason Comments Med Refill Encounter Details Date Type Department Care Team ([facility] st Contact Info) Description 02/02/[address] [facility] MEDICINE 230 [place], [place] [phone] Caryl Biggs MD 230 [place] [address] Primary osteoarthritis of both knees Social History [...] 1:00 PM EST Office Visit [facility] OPTOMETRY [address] [place] [address] Jonathon, Beata, OD 230 [place] [address] 08/05/2024 1:00 PM EDT Office Visit [facility] MEDICINE 230 [place] [address] Kalpana Baptiste MD 230 [place] [address] 08/12/2024 11:30 AM EDT Clinical Support [facility] MEDICINE [address] [place] [phone] Amanda Waldrop RN documented as of this encounter Visit Diagnoses Diagnosis Primary osteoarthritis of both knees documented in this encounter Additional Health Concerns Assessment Noted Time PHQ-9 Depression Total Score: 0 08/22/19 23 10:06 AM EDT documented as of this encounter Care Teams Speech Correction Consultant Relationship Specialty Start Date End Date Kalpana Baptiste MD [address] [place] [address] PCP - General Family Medicine 06/14/20 documented as of this encounter
--- OUTSIDE RECORDS SUMMARY | 2024-06-04 10:36 | XMS_ITS | Encounter Summary ---
Author Organization [employer] Address 75 [facility] 7t [place] [address] Care Team Providers Care Kitchen And Bath Designer Name Role Phone Kalpana Baptiste MD Primary Care Provide r Reason for Visit * Reason Comments Med Refill Encounter Details Date Type Department Care Team (Late Contact Info) Description 10/23/2022 Refill [facility] CH[facility] MED & PEDS [address] [place], [place] [phone] Tootie Tineo, ANP 230 [place], [place] [phone] Social History Tobacco Use Types Packs/Day Years [...] Description 06/22/2024 1:00 PM EST Office Visit C OPTOMETRY 267 [place], [place] [phone] Beata Holt, OD 230 [place], [place] [phone] 08/05/2024 1:00 PM EDT Office Visit [address] [address] Kalpana Baptiste MD [address] [place] [address] 08/12/2024 11:30 AM EDT Clinical Support [address] [address] Amanda Waldrop, NEGAR documented as of this encounter Visit Diagnoses Not on filedocumented in this encounter Additional Health Concerns Assessment Noted Time PHQ-9 Depression Total Score: 0 08/22/19 23 10:06 AM EDT documented as of this encounter Care Teams Kitchen And Bath Designer Relationship Specialty Start Date End Date Kalpana Baptiste MD [address] [place] [phone] PCP - General Family Medicine 06/14/20 documented as of this encounter
--- OUTSIDE RECORDS SUMMARY | 2024-06-04 10:36 | XMS_ITS | Encounter Summary ---
Author Organization [employer] Address 75 [facility] 7t [place] [address] Care Team Providers Care Olive Brine Tester Name Role Phone Kalpana Baptiste MD Primary Care Provide r Reason for Visit * Reason Comments Med Refill Encounter Details Date Type Department Care Team (Late Contact Info) Description 10/04/2022 Refill [facility] MEDICINE 230 [place], [place] [phone] Marilyn Corral MD 230 [place] [address] Moderate persistent asthma without complication Social History [...] Upcoming Encounters Date Type Department Care Team ([facility] Contact Info) Description 06/22/2024 1:00 PM EST Office Visit [facility] OPTOMETRY [address] [place] [address] Beata Holt, OD 230 [place] [address] 08/05/2024 1:00 PM EDT Office Visit [facility] MEDICINE [address] [place] [address] [phone] Kalpana Baptiste MD [address] [place] [address] 08/12/2024 11:30 AM EDT Clinical Support [address] [address] Amanda Waldrop, NEGAR documented as of this encounter Visit Diagnoses Diagnosis Moderate persistent asthma without complication documented in this encounter Additional Health Concerns Assessment Noted Time PHQ-9 Depression Total Score: 0 08/22/19 23 10:06 AM EDT documented as of this encounter Care Teams Olive Brine Tester Relationship Specialty Start Date End Date Kalpana Baptiste MD [address] [place] [address] PCP - General Family Medicine 06/14/20 documented as of this encounter
--- OUTSIDE RECORDS SUMMARY | 2024-06-04 10:36 | XMS_ITS | Encounter Summary ---
Author Organization [employer] Address 75 [facility] 7t [place] [address] Care Team Providers Care Change Management Name Role Phone Kalpana Baptiste MD Primary Care Provide r Reason for Visit * Reason Comments Med Refill Encounter Details Date Type Department Care Team ([facility] Contact Info) Description 11/13/2022 Refill [facility] MEDICINE 230 [place], [place] [phone] Kalpana Baptiste MD 230 [place] [address] Primary osteoarthritis of both knees Social History [...] Upcoming Encounters Date Type Department Care Team ([facility] Contact Info) Description 06/22/2024 1:00 PM EST Office Visit [facility] OPTOMETRY 267 [place] [address] Beata Holt, OD 230 [place] [address] 08/05/2024 1:00 PM EDT Office Visit [address] [phone] Kalpana Baptiste MD [address] [place] [address] 08/12/2024 11:30 AM EDT Clinical Support [address] [address] Amanda Waldrop, NEGAR documented as of this encounter Visit Diagnoses Diagnosis Primary osteoarthritis of both knees documented in this encounter Additional Health Concerns Assessment Noted Time PHQ-9 Depression Total Score: 0 08/22/19 23 10:06 AM EDT documented as of this encounter Care Teams Change Management Relationship Specialty Start Date End Date Kalpana Baptiste MD [address] [place] [phone] PCP - General Family Medicine 06/14/20 documented as of this encounter
--- OUTSIDE RECORDS SUMMARY | 2024-06-04 10:36 | XMS_ITS | Encounter Summary ---
Author Organization [employer] Address [address] [facility] [address] 7t [place] [address] Care Team Providers Care Steamboat Pilot Name Role Phone Kalpana Baptiste MD Primary Care Provide r Reason for Visit * Reason Comments Med Refill Encounter Details Date Type Department Care Team ([facility] st Contact Info) Description 12/26/2023 Refill [facility] MEDICINE 230 [place], [place] [phone] Kalpana Baptiste MD 230 [place] [address] Other hyperlipidemia; Chronic gout of multiple sites, unspecified cause; Abdominal pain, epigastric; Allergic rhinitis, unspecified seasonality, unspecified trigger; Moderate persistent asthma without complication Social History [...] Description 06/22/2024 1:00 PM EST Office Visit [facility] OPTOMETRY 267 [place] [address] Beata Holt, OD 230 [place] [address] 08/05/2024 1:00 PM EDT Office Visit [facility] MEDICINE [address] [place] [address] Kalpana Baptiste MD [address] [place] [address] 08/12/2024 11:30 AM EDT Clinical Support [facility] MEDICINE [address] [place] [address] Amanda Waldrop, NEGAR documented as of this encounter Visit Diagnoses Diagnosis Other hyperlipidemia Chronic gout of multiple sites, unspecified cause Abdominal pain, epigastric Allergic rhinitis, unspecified seasonality, unspecified trigger Moderate persistent asthma without complication documented in this encounter Additional Health Concerns Assessment Noted Time PHQ-9 Depression Total Score: 0 08/22/19 23 10:06 AM EDT documented as of this encounter Care Teams Steamboat Pilot Relationship Specialty Start Date End Date Kalpana Baptiste MD [address] [place] [address] PCP - General Family Medicine 06/14/20 documented as of this encounter
--- OUTSIDE RECORDS SUMMARY | 2024-06-04 10:36 | XMS_ITS | Encounter Summary ---
Author Organization [employer] Address 75 [facility] [address] 7t [place] [address] Care Team Providers Care Heel Molder Name Role Phone Kalpana Baptiste MD Primary Care Provide r Reason for Visit * Reason Comments Med Refill Encounter Details Date Type Department Care Team ([facility] st Contact Info) Description 02/18/2024 Refill [facility] MEDICINE 230 [place], [place] [phone] Caryl Biggs MD 230 [place] [address] Primary osteoarthritis of both knees Social History [...] Description 06/22/2024 1:00 PM EST Office Visit [facility] OPTOMETRY 267 [place] [address] Jonathon, Beata, OD 230 [place] [address] 08/05/2024 1:00 PM EDT Office Visit [facility] MEDICINE 230 [place] [address] Kalpana Baptiste MD 230 [place] [address] 08/12/2024 11:30 AM EDT Clinical Support [facility] MEDICINE [address] [place] [address] Amanda Wladrop RN documented as of this encounter Visit Diagnoses Diagnosis Primary osteoarthritis of both knees documented in this encounter Additional Health Concerns Assessment Noted Time PHQ-9 Depression Total Score: 0 08/22/19 23 10:06 AM EDT documented as of this encounter Care Teams Heel Molder Relationship Specialty Start Date End Date Kalpana Baptiste MD [address] [place] [phone] PCP - General Family Medicine 06/14/20 documented as of this encounter
--- OUTSIDE RECORDS SUMMARY | 2024-06-04 10:36 | XMS_ITS ---
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 Other Current Plans Vaccines for Post BMT Shingrix Only* Plan Start Date:03/05/2020 Plan Provider:Vivek Bernal MD PhD Linked Problems Myelofibrosis (HCC)Bone geo ow transplant status (HCC) Treatment Medications Current Day (Day 1 , Shingrix Dose #1 - Planned for 03/05/2020) Next Day (Day 1, Shingrix Dose #2 - Planned for 06/03/2020) No medications scheduled. No medications schedul ed. No medications scheduled. Past Plans Radiation Treatments * No radiation treatments are documented for this patient in [facility]. Treatments may have been administered in another system.
--- OUTSIDE RECORDS SUMMARY | 2024-06-04 10:36 | XMS_ITS | Encounter Summary ---
Author Organization [employer] Address 75 [facility] 7t [place] [address] Care Team Providers Care Lab Rn Name Role Phone Kalpana Baptiste MD Primary Care Provide r Reason for Visit * Reason Comments Med Refill Encounter Details Date Type Department Care Team (Late Contact Info) Description 10/04/2022 Refill [facility] CHC MED & PEDS 505 [place], [place] [phone] Tootie Tineo, ANP 230 [place], [place] [phone] Social History Tobacco Use Types Packs/Day Years [...] PM EST Office Visit C OPTOMETRY 267 [place], [place] [phone] Beata Holt, OD 230 [place], [place] [phone] 08/05/2024 1:00 PM EDT Office Visit [address] [address] Kalpana Baptiste MD [address] [place] [address] 08/12/2024 11:30 AM EDT Clinical Support [address] [address] Amanda Waldrop, NEGAR documented as of this encounter Visit Diagnoses Not on filedocumented in this encounter Additional Health Concerns Assessment Noted Time PHQ-9 Depression Total Score: 0 08/22/19 23 10:06 AM EDT documented as of this encounter Care Teams Lab Rn Relationship Specialty Start Date End Date Kalpana Baptiste MD [address] [place] [address] PCP - General Family Medicine 06/14/20 documented as of this encounter
--- OUTSIDE RECORDS SUMMARY | 2024-06-04 10:36 | XMS_ITS | Encounter Summary ---
Author Organization [employer] Address [address] [facility] [address] 7t [place] [address] Care Team Providers Care Occupational Therapy Aides Teacher Name Role Phone Kalpana Baptiste MD Primary Care Provide r Reason for Visit * Reason Comments Med Refill Encounter Details Date Type Department Care Team ([facility] st Contact Info) Description 02/09/2024 Refill [facility] MEDICINE 230 [place], [place] [phone] Caryl Biggs MD 230 [place] [address] Primary osteoarthritis of both knees Social History [...] Description 06/22/2024 1:00 PM EST Office Visit [facility] OPTOMETRY [address] [place] [address] Jonathon, Beata, OD 230 [place] [address] 08/05/2024 1:00 PM EDT Office Visit [facility] MEDICINE 230 [place] [address] Kalpana Baptiste MD 230 [place] [address] 08/12/2024 11:30 AM EDT Clinical Support [facility] MEDICINE [address] [place] [address] Amanda Waldrop RN documented as of this encounter Visit Diagnoses Diagnosis Primary osteoarthritis of both knees documented in this encounter Additional Health Concerns Assessment Noted Time PHQ-9 Depression Total Score: 0 08/22/19 23 10:06 AM EDT documented as of this encounter Care Teams Occupational Therapy Aides Teacher Relationship Specialty Start Date End Date Kalpana Baptiste MD [address] [place] [address] PCP - General Family Medicine 06/14/20 documented as of this encounter
--- OUTSIDE RECORDS SUMMARY | 2024-06-04 10:37 | XMS_ITS | Encounter Summary ---
Author Organization [employer] Address [address] [facility] [address] 7t [place] [address] Care Team Providers Care Associate Professor Of Chemistry Name Role Phone Kalpana Baptiste MD Primary Care Provide r Reason for Visit * Reason Comments Med Refill Encounter Details Date Type Department Care Team ([facility] st Contact Info) Description 03/23/2024 Refill [facility] MEDICINE 230 [place], [place] [phone] Kalpana Batpiste MD 230 [place] [address] Type 2 diabetes mellitus with other specified complication, unspecified whether halfway insulin use ([facility]); Primary osteoarthritis of both knees Social History [...] is your housing situation today? I have noravitaly [place] 02/18/[address] you [...] PM EST Office Visit [facility] OPTOMETRY 267 [place], [place] [phone] Jonathon, Beata, OD 230 [place] [address] 08/05/2024 1:00 PM EDT Office Visit [facility] MEDICINE [address] [place] [address] Kalpana Baptiste MD 230 [place] [address] 08/12/2024 11:30 AM EDT Clinical Support [facility] MEDICINE [address] [place] [address] Amanda Waldrop, NEGAR documented as of this encounter Visit Diagnoses Diagnosis Type 2 diabetes mellitus with other specified complication, unspecified whether halfway insulin use ([facility]) Primary osteoarthritis of both knees documented in this encounter Additional Health Concerns Assessment Noted Time PHQ-9 Depression Total Score: 0 08/22/19 23 10:06 AM EDT documented as of this encounter Care Teams Associate Professor Of Chemistry Relationship Specialty Start Date End Date Kalpana Baptiste MD [address] [place] [address] PCP - General Family Medicine 06/14/20 documented as of this encounter
--- OUTSIDE RECORDS SUMMARY | 2024-06-04 10:37 | XMS_ITS | Encounter Summary ---
Author Organization [employer] Address [address] [facility] [address] 7t [place] [address] Care Team Providers Care Airport Ramp Supervisor Name Role Phone Kalpana Baptiste MD Primary Care Provide r Reason for Visit * Reason Comments Med Refill Encounter Details Date Type Department Care Team ([facility] st Contact Info) Description 03/23/2024 Refill [facility] MEDICINE 230 [place], [place] [phone] Kalpana Baptiste MD 230 [place] [address] Primary osteoarthritis of both knees; Type 2 diabetes mellitus with other specified complication, unspecified whether detention insulin use ([facility]) Social History Tobacco Use Types Packs/Day Years [...] Description 06/22/2024 1:00 PM EST Office Visit [facility] OPTOMETRY 267 [place], [place] [phone] Jonathon, Beata, OD 230 [place] [address] 08/05/2024 1:00 PM EDT Office Visit [facility] MEDICINE 230 [place] [address] Kaplana Baptiste MD [address] [place] [address] 08/12/2024 11:30 AM EDT Clinical Support [facility] MEDICINE 230 [place] [address] Amanda Waldrop RN documented as of this encounter Visit Diagnoses Diagnosis Primary osteoarthritis of both knees Type 2 diabetes mellitus with other specified complication, unspecified whether rat exterminator insulin use ([facility]) documented in this encounter Additional Health Concerns Assessment Noted Time PHQ-9 Depression Total Score: 0 08/22/19 23 10:06 AM EDT documented as of this encounter Care Teams Airport Ramp Supervisor Relationship Specialty Start Date End Date Kalpana Baptiste MD [address] [place] [address] [phone] PCP - General Family Medicine 06/14/20 documented as of this encounter
--- OUTSIDE RECORDS SUMMARY | 2024-06-04 10:37 | XMS_ITS | Encounter Summary ---
Author Organization [employer] Address [address] [facility] [address] 7t [place] [address] Care Team Providers Care Senior Medical Director Name Role Phone Kalpana Baptiste MD Primary Care Provide r Reason for Visit * Reason Comments Med Refill Encounter Details Date Type Department Care Team ([facility] st Contact Info) Description 03/29/2024 Refill [facility] MEDICINE 230 [place], [place] [phone] Kalpana Baptiste MD 230 [place] [address] Type 2 diabetes mellitus with other specified complication, unspecified whether skilled nursing insulin use ([facility]); Primary osteoarthritis of both knees Social History [...] [facility] OPTOMETRY 267 [place], [place] [phone] Jonathon, Beata, OD 230 [place] [address] 08/05/2024 1:00 PM EDT Office Visit [facility] MEDICINE 230 [place] [address] Kalpana Baptiste MD 230 [place] [address] 08/12/2024 11:30 AM EDT Clinical Support [facility] MEDICINE 230 [place] [address] Amanda Waldrop, NEGAR documented as of this encounter Visit Diagnoses Diagnosis Type 2 diabetes mellitus with other specified complication, unspecified whether skilled nursing insulin use ([facility]) Primary osteoarthritis of both knees documented in this encounter Additional Health Concerns Assessment Noted Time PHQ-9 Depression Total Score: 0 08/22/19 23 10:06 AM EDT documented as of this encounter Care Teams Senior Medical Director Relationship Specialty Start Date End Date Kalpana Baptiste MD [address] [place] [address] PCP - General Family Medicine 06/14/20 documented as of this encounter
--- OUTSIDE RECORDS SUMMARY | 2024-06-04 10:37 | XMS_ITS | Encounter Summary ---
Author Organization [employer] Address [address] [facility] [address] 7t [place] [address] Care Team Providers Care Open Hearth Worker Name Role Phone Kalpana Bapitste MD Primary Care Provide r Reason for Visit * Reason Comments Med Refill Encounter Details Date Type Department Care Team ([facility] st Contact Info) Description 03/31/2024 Refill [facility] MEDICINE 230 [place], [place] [phone] Kalpana Baptiste MD 230 [place] [address] Type 2 diabetes mellitus with other specified complication, unspecified whether half-way insulin use ([facility]); Primary osteoarthritis of both knees Social History [...] 06/22/2024 1:00 PM EST Office Visit [facility] OPTOMETRY [address] [place], [place] [phone] Jonathon, Beata, OD 230 [place] [address] 08/05/2024 1:00 PM EDT Office Visit [facility] MEDICINE 230 [place] [address] Kalpana Baptiste MD 230 [place] [address] 08/12/2024 11:30 AM EDT Clinical Support [facility] MEDICINE 230 [place] [address] Amanda Waldrop, NEGAR documented as of this encounter Visit Diagnoses Diagnosis Type 2 diabetes mellitus with other specified complication, unspecified whether half-way insulin use ([facility]) Primary osteoarthritis of both knees documented in this encounter Additional Health Concerns Assessment Noted Time PHQ-9 Depression Total Score: 0 08/22/19 23 10:06 AM EDT documented as of this encounter Care Teams Open Hearth Worker Relationship Specialty Start Date End Date Kalpana Baptiste MD [address] [place] [address] PCP - General Family Medicine 06/14/20 documented as of this encounter
--- OUTSIDE RECORDS SUMMARY | 2024-06-04 10:37 | XMS_ITS | Encounter Summary ---
Author Organization [employer] Address [address] [facility] [address] 7t [place] [address] Care Team Providers Care Snack Stewardess Name Role Phone Kalpana Baptiste MD Primary Care Provide r Reason for Visit * Reason Onset Date Comments BPI Scoring 05/13/2024 Encounter Details Date Type Department Care Team ([facility] st Contact Info) Description 05/13/2024 Telephone [facility] MEDICINE 230 [place] [address] Amanda Waldrop RN BPI Scoring Social History Tobacco Use Types Packs/Day Years Used Date Smoking Tobacco: Former Cigarettes Passive Smoke Exposure: Past Smokeless Tobacco: Never Alcohol Use Standard Drinks/Week Comments Never 0 (1 standard drink = 0.6 oz pur e alcohol) Depression Answer Date Recorded Patient Health Questionnaire-9 Score 0 05/06/2024 Patient Health Questionnaire-9 Score 0 05/06/2024 Last PHQ-9: Questionnaire Data Not on file 0 05/06/2024 Housing Stability Answer Date Recorded What is your housing situation today? I have nora [place] 05/06/[address] you li ve. Do you have problems with any of the following? None of the above 05/06/2024 Food Insecurity Answer Date Recorded Within the past 12 months, y ou worried that your food would run out before you got money to buy more: Never True 05/06/2024 Within the past 12 months,th e food you bought just didn't last and you didn't have enough money to get more: Never True 06/2024 Transportation Answer Date Recorded In the past 12 months, has l ack of transportation kept you from medical appts, meetings, work or from getting things needed for daily living? No 05/06/2024 Utilities Answer Date Recorded In the past 12 months, has t he electric, gas, oil or water company threatened to shut off services in your home? No 05/06/2024 Depression Answer Date Recorded Patient Health Questionnaire-2 Score 0 05/06/2024 Internet Access Answer Date Recorded Internet Access Q1 Yes 05/06/2024 Internet Access Q2 Not on file 05/06/2024 Comments Unknown Sex and Gender Information Value Date Recorded Sex Assigned at Female 03/04/2022 10:14 AM EDT Legal Sex Female 10:14 AM EDT Gender Identity Female 03/04/2022 10:14 AM EDT Sexual Orientation Straight 03/04/2022 10 :14 AM EDT documented as of this encounter Miscellaneous Notes * Telephone Encounter - Amanda Waldrop RN - 05/13/2024 9:24 AM EST Pt had EQUIPMENT WASHER RV appt today BPI updated Pain severity score of 8.5, activity interference score of 9.6. Previous BPI completed 12/09/23 with pain severity score of 7.5, activity interference score of 3. Has been without Tramadol X 4 days. States she hasn't received script sent 05/06/24. Called pharmacy,they said they are delivering it today. Asked why they waited so long to deliver it, they stated they didn't know. Requested they send it as ordered in future. documented in this encounter Plan of Treatment Upcoming Encounters Date Type Department Care Team (Late st Contact Info) Description 06/22/2024 1:00 PM EST Office Visit [facility] OPTOMETRY [address] [place] [address] Jonathon, Beata, OD 230 [place] [address] 08/05/2024 1:00 PM EDT Office Visit [facility] MEDICINE 230 [place] [address] Kalpana Baptiste MD 230 [place] [address] 08/12/2024 11:30 AM EDT Clinical Support [facility] MEDICINE [address] [place] [address] Amanda Waldrop RN documented as of this encounter Visit Diagnoses Not on filedocumented in this encounter Additional Health Concerns Assessment Noted Time PHQ-9 Depression Total Score: 0 05/06/19 25 2:15 PM EST documented as of this encounter Care Teams Snack Stewardess Relationship Specialty Start Date End Date Kalpana Baptiste MD 230 [place] [address] PCP - General Family Medicine 06/14/20 documented as of this encounter
--- OUTSIDE RECORDS SUMMARY | 2024-06-04 10:37 | XMS_ITS | Encounter Summary ---
Author Organization [employer] Address [address] [place] [address] Care Team Providers Care Sales Office Coordinator Name Role Phone Kalpana Baptiste MD Primary Care Provide r Encounter Details Date Type Department Care Team (Latest Contact Info) Description 05/13/2024 Travel Social History Tobacco Use Types Packs/Day Years [...] Description 06/22/2024 1:00 PM EST Office Visit [facility] OPTOMETRY [address] [place], [place] [phone] Beata Holt, OD [address] [place] [address] 08/05/2024 1:00 PM EDT Office Visit [facility] MEDICINE [address] [place] [address] Kalpana Baptiste MD [address] [place] [address] 08/12/2024 11:30 AM EDT Clinical Support [facility] MEDICINE [address] [place] [id number] Amanda Waldrop RN documented as of this encounter Visit Diagnoses Not on filedocumented in this encounter Additional Health Concerns Assessment Noted Time PHQ-9 Depression Total Score: 0 05/06/19 25 2:15 PM EST documented as of this encounter Care Teams Sales Office Coordinator Relationship Specialty Start Date End Date Kalpana Baptiste MD [address] [place], [place] [phone] PCP - General Family Medicine 06/14/20 documented as of this encounter
--- OUTSIDE RECORDS SUMMARY | 2024-06-04 10:38 | XMS_ITS | Clinical Summary ---
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 Chlamydia pneumoniae Not Detected Not Detected LAB MICROBIOLOGY METHOD 05/18/2024 1:49 PM EST [facility] SARS COV-2 Not Detected Not Detected LAB MICROBIOLOGY METHOD 05/18/2024 1:49 PM EST [facility] Swab Both anterior nares / Unknown Non-blood Collection / Unknown 05/18/2024 12:20 PM EST 05/18/2024 12:53 PM EST Narrative [facility] - 05/18/2024 1:49 PM EST Testing was performed using the [employer] Respiratory Pathogen PCR Assay. All results must be correlated with the clinical findings. Results should not be used as the sole basis for diagnosis. False Negative results may occur from the presence of sequence variants in the region targeted by the assay or the presence of inhibitors. Results may be affected by concurrent antiviral/antimicrobial therapy or levels of organisms that are below the limit of detection. Beronica MORROW LAB MICROBIOLOGY - G ENERAL ORDERABLES [facility] [address] [place] [address], [place] [phone] * Mckeon urine culture tube (05/18/2024 3:32 AM EST) Extra Tube Hold for add-ons. 05/18/2024 9:01 AM EST [facility] Comment:Auto resulted. Urine Urine specimen obtained by clean catch procedure / Unknown Non-blood Collection / Unknown 05/18/2024 3:32 AM EST 05/18/2024 7:37 AM EST Clyde Retana MD LAB URINE ORDERABLES Performing Organization Address [facility]/ZIP Co de Phone Number [facility] [address] [place] [address], [place] [phone] * CT Abdomen Pelvis wo Contrast (05/18/2024 2:48 AM EST) Anatomical Region Laterality Modality Body Computed Tomogra phy 05/18/2024 3:16 AM EST Impressions 05/18/2024 3:16 AM EST Nonobstructive 3 mm calculus in the left midpole kidney. This document has been electronically signed by: Waqar Candelaria MD on 05/18/2024 03:16:27 Narrative 05/18/2024 3:[address] abdomen and pelvis without contrast Comparison: None Findings: Small hiatal hernia. Atelectasis. Cardiomegaly without significant pericardial effusion. Coronary artery calcifications. Hepatomegaly with steatosis. Mildly distended gallbladder. Right lower pole hypodense renal cyst. Nonobstructive 3 mm calculus in the left midpole kidney. Nonspecific oval-shaped hyperdensity in the left upper quadrant small bowel loops series 3, image 67 reflect ingested material considering similar density throughout the stomach. No obstruction. Pelvic contents unremarkable. Normal appendix. Mild circumferential bladder wall thickening, nonspecific. Osteopenia with diffuse multilevel spondylosis. Diffuse atheromatous plaque disease throughout the aorta and branch vessels, without aneurysmal dilatation. Procedure Note Waqar Candelaria MD - 05/18/2024 CT abdomen and pelvis without contrast Comparison: None Findings: Small hiatal hernia. Atelectasis. Cardiomegaly without significant pericardial effusion. Coronary artery calcifications. Hepatomegaly with steatosis. Mildly distended gallbladder. Right lower pole hypodense renal cyst. Nonobstructive 3 mm calculus in the left midpole kidney. Nonspecific oval-shaped hyperdensity in the left upper quadrant small bowel loops series 3, image 67 reflect ingested material considering similar density throughout the stomach. No obstruction. Pelvic contents unremarkable. Normal appendix. Mild circumferential bladder wall thickening, nonspecific. Osteopenia with diffuse multilevel spondylosis. Diffuse atheromatous plaque disease throughout the aorta and branch vessels, without aneurysmal dilatation. IMPRESSION: Nonobstructive 3 mm calculus in the left midpole kidney. This document has been electronically signed by: Waqar Candelaria MD on 05/18/2024 03:16:27 Clyde Retana MD IMDevin CT PROCEDURES * (ABNORMAL) Urinalysis with reflex microscopic and culture (05/18/2024 12:46 AM EST) Specific Angelica Urine 1.017 1.003 - 1.030 LAB URINALYSIS - AUTOMATED METHOD 05/18/2024 3:45 AM [facility] pH, Urine 5.5 5.0 - 8.0 pH LAB URINALYSIS - AUTOMATED METHOD 05/18/2024 3:45 AM [facility] Leukocytes, Urine Negative Negative LAB URINALYSIS - AUTOMATED METHOD 05/18/2024 3:45 AM [facility] Nitrite, Urine Negative Negative LAB URINALYSIS - AUTOMATED METHOD 05/18/2024 3:45 AM [facility] Protein, Urine 300(A) <=Trace mg/dL LAB URINALYSIS - AUTOMATED METHOD 05/18/2024 3:45 AM [facility] Glucose, Urine Negative Negative mg/dL LAB URINALYSIS - AUTOMATED METHOD 05/18/2024 3:45 AM [facility] Ketones, Urine Trace(A) Negative mg/dL LAB URINALYSIS - AUTOMATED METHOD 05/18/2024 3:45 AM [facility] Urobilinogen, Urine 0.2 0.2 - 1.0 mg/dL LAB URINALYSIS - AUTOMATED METHOD 05/18/2024 3:45 AM [facility] Bilirubin, Urine Negative Negative LAB URINALYSIS - AUTOMATED METHOD 05/18/2024 3:45 AM [facility] Blood, Urine Trace(A) Negative LAB URINALYSIS - AUTOMATED METHOD 05/18/2024 3:45 AM [facility] RBC, Urine 4.1(H) 0 - 4 /HPF LAB URINALYSIS - AUTOMATED METHOD 05/18/2024 3:45 AM [facility] WBC, Urine 2.3 0 - 4 /HPF LAB URINALYSIS - AUTOMATED METHOD 05/18/2024 3:45 AM [facility] Squamous Epithelial, Urine 36 0 - 60 /LPF LAB URINALYSIS - AUTOMATED METHOD 05/18/2024 3:45 AM [facility] Bacteria, Urine Negative Negative /HPF LAB URINALYSIS - AUTOMATED METHOD 05/18/2024 3:45 AM [facility] Hyaline Casts, Urine 2.9 0 - 3 /LPF LAB URINALYSIS - AUTOMATED METHOD 05/18/2024 3:45 AM [facility] Urine Urine specimen obtained by clean catch procedure / Unknown Non-blood Collection / Unknown 05/18/2024 12:46 AM EST 05/18/2024 3:36 AM EST Clyde Retana MD LAB URINE ORDERABLES [facility] [address] [place] [address], [place] [phone] * Jermyn top urine tube (05/18/2024 12:46 AM EST) Extra Tube Hold for add-ons. 05/18/2024 3:04 AM [facility] Comment:Auto resulted. Urine Urine specimen obtained by clean catch procedure / Unknown Non-blood Collection / Unknown 05/18/2024 12:46 AM EST 05/18/2024 1:06 AM EST Clyde HUBBARD URINE ORDERABLES [facility] [address] [place] [address], [place] [phone] * Urine culture (05/18/2024 12:46 AM EST) Culture, Urine No growth 05/19/2024 10:27 AM [facility] Urine Urine specimen obtained by clean catch procedure / Unknown Non-blood Collection / Unknown 05/18/2024 12:46 AM EST 05/18/2024 1:05 AM EST Clyde Retana MD LAB MICROBIOLOGY - G ENERAL ORDERABLES [facility] [address] [place] [address], * (ABNORMAL) Manual differential (05/18/2024 12:37 AM EST) Neutrophils % 74.0 % LAB HEMETOLOGY METHOD 5 1:39 AM EST [facility] Bands % 13.0 % LAB HEMETOLOGY METHOD 5 1:39 AM [facility] Lymphocytes % 10.0 % LAB HEMETOLOGY METHOD 5 1:39 AM [facility] Monocytes % 2.0 % LAB HEMETOLOGY METHOD 5 1:39 AM [facility] Eosinophils % 0.0 % LAB HEMETOLOGY METHOD 5 1:39 AM [facility] Basophils % 0.0 % LAB HEMETOLOGY METHOD 5 1:39 AM [facility] Metamyelocytes % 1.0(H) % LAB HEMETOLOGY METHOD 5 1:39 AM [facility] Neutrophils Absolute Manual 4.22 1.50 - 7.00 K/mcL LAB HEMETOLOGY METHOD 5 1:39 AM EST [facility] Bands Absolute Manual 0.74(H) 0.00 - 0.00 K/mcL LAB HEMETOLOGY METHOD 5 1:39 AM [facility] Lymphocytes Absolute 0.57(L) 1.00 - 5.00 K/mcL LAB HEMETOLOGY METHOD 5 1:39 AM [facility] Monocytes Absolute Manual 0.11(L) 0.20 - 1.00 K/mcL LAB HEMETOLOGY METHOD 5 1:39 AM EST [facility] Eosinophils Absolute Manual 0.00 0.00 - 0.50 K/mcL LAB HEMETOLOGY METHOD 5 1:39 AM EST [facility] Basophils Absolute Manual 0.00 0.00 - 0.20 K/mcL LAB HEMETOLOGY METHOD 5 1:39 AM EST [facility] Metamyelocytes Absolute Manual 0.06(H) 0.00 - 0.00 K/mcL LAB HEMETOLOGY METHOD 5 1:39 AM EST [facility] Rbc Morphology Consistent with indices Consistent with indices, Normal for LAB HEMETOLOGY METHOD 1:39 AM [facility] Platelet Morphology - WAM Normal Normal LAB HEMETOLOGY METHOD 1:39 AM [facility] Blood Venous blood specimen / Unknown Venipuncture / Unknown 05/18/2024 12:37 AM EST 05/18/2024 1:04 AM EST Scot Mario Retana MD LAB BLOOD ORDERABLES [facility] [address] [place] [address], * (ABNORMAL) CBC auto differential (05/18/2024 12:37 AM EST) WBC 5.7 4.8 - 10.8 K/mcL LAB HEMETOLOGY METHOD 05/18/2024 1:39 AM EST [facility] RBC 3.80 3.80 - 4.80 M/mcL LAB HEMETOLOGY METHOD 05/18/2024 1:39 AM EST [facility] Hemoglobin 11.1(L) 11.5 - 16.0 g/dL LAB HEMETOLOGY METHOD 05/18/2024 1:39 AM EST [facility] Hematocrit 33.2(L) 35.0 - 47.0 % LAB HEMETOLOGY METHOD 05/18/2024 1:39 AM EST [facility] MCV 87.6 79.0 - 98.0 FL LAB HEMETOLOGY METHOD 05/18/2024 1:39 AM [facility] MCH 29.3 27.0 - 32.0 pcg LAB HEMETOLOGY METHOD 05/18/2024 1:39 AM EST [facility] MCHC 33.4 32.0 - 37.0 g/dL LAB HEMETOLOGY METHOD 05/18/2024 1:39 AM [facility] RDW 13.3 11.0 - 15.0 % LAB HEMETOLOGY METHOD 05/18/2024 1:39 AM [facility] Platelets 256 130 - 400 K/mcL LAB HEMETOLOGY METHOD 05/18/2024 1:39 AM EST [facility] MPV 9.9 7.0 - 11.0 FL LAB HEMETOLOGY METHOD 05/18/2024 1:39 AM EST [facility] NRBC 0.0 <1.0 % LAB HEMETOLOGY METHOD 05/18/2024 1:39 AM [facility] NRBC Absolute 0.00 <0.10 K/mcL LAB HEMETOLOGY METHOD 05/18/2024 1:39 AM [facility] Blood Venous blood specimen / Unknown Venipuncture / Unknown 05/18/2024 12:37 AM EST 05/18/2024 1:04 AM EST Scot Mario Retana MD LAB BLOOD ORDERABLES [facility] [address] [place] [address], * Lipase (05/18/2024 12:37 AM EST) Lipase 48 13 - 75 unit/L LAB CHEMISTRY METHOD 05/18/2024 1:36 AM [facility] Blood Venous blood specimen / Unknown Venipuncture / Unknown 05/18/2024 12:37 AM EST 05/18/2024 1:04 AM EST Clyde Retana MD LAB BLOOD ORDERABLES [facility] [address] [place] [address], * (ABNORMAL) Comprehensive metabolic panel (05/18/2024 12:37 AM EST) Sodium 140 133 - 145 mmol/L LAB CHEMISTRY METHOD 05/18/2024 1:36 AM [facility] Potassium 4.3 3.5 - 5.5 mmol/L LAB CHEMISTRY METHOD 05/18/2024 1:36 AM [facility] Chloride 109 96 - 110 mmol/L LAB CHEMISTRY METHOD 05/18/2024 1:36 AM [facility] CO2 20(L) 21 - 32 mmol/L LAB CHEMISTRY METHOD 05/18/2024 1:36 AM [facility] Anion Gap 11 3 - 11 LAB CHEMISTRY METHOD 05/18/2024 1:36 AM [facility] Glucose 131(H) 70 - 100 mg/dL LAB CHEMISTRY METHOD 05/18/2024 1:36 AM [facility] BUN 35(H) 5 - 25 mg/dL LAB CHEMISTRY METHOD 05/18/2024 1:36 AM [facility] Creatinine 2.57(H) 0.50 - 1.10 mg/dL LAB CHEMISTRY METHOD 05/18/2024 1:36 AM [facility] eGFR 21(L) >=60 mL/min/1. 73m2 LAB CHEMISTRY METHOD 05/18/2024 1:36 AM [facility] Comment:Calculation based on the??Chronic Kidney Disease Epidemiology Collaboration (CKD-EPI) equation refit??without adjustment for race. BUN/Creatinine Ratio 13.6 LAB CHEMISTRY METHOD 05/18/2024 1:36 AM [facility] Calcium 8.9 8.5 - 10.5 mg/dL LAB CHEMISTRY METHOD 05/18/2024 1:36 AM [facility] AST (SGOT) 46(H) 10 - 42 unit/L LAB CHEMISTRY METHOD 05/18/2024 1:36 AM [facility] ALT (SGPT) 68(H) 10 - 60 unit/L LAB CHEMISTRY METHOD 05/18/2024 1:36 AM [facility] Alkaline Phosphatase 78 42 - 121 unit/L LAB CHEMISTRY METHOD 05/18/2024 1:36 AM [facility] Total Protein 7.7 6.0 - 8.0 g/dL LAB CHEMISTRY METHOD 05/18/2024 1:36 AM [facility] Albumin 4.3 3.2 - 5.0 g/dL LAB CHEMISTRY METHOD 05/18/2024 1:36 AM [facility] Total Bilirubin 0.5 0.0 - 1.4 mg/dL LAB CHEMISTRY METHOD 05/18/2024 1:36 AM [facility] Blood Venous blood specimen / Unknown Venipuncture / Unknown 05/18/2024 12:37 AM EST 05/18/2024 1:04 AM EST Clyde Retana MD LAB BLOOD ORDERABLES [facility] [address] [place] [address], * ECG-Annotated (05/18/2024) Provider Elayne MCKEON ECG ORDERABLES from Last 3 Months Additional Health Concerns Infection Onset Date Last Indicated Norovirus 05/20/2024 05/20/2024 Advance Directives Documents on File Type Date Recorded Patient Regroover Expl anation Advance Directives and Living Will 05/21/2024 8:51 AM Advance Directives and Living Will 05/19/2024 11:42 AM Veronique Burrell [facility] * Full Code - Default (Latest Code Status on File) Date Activated Date Inactivated Comments 05/18/2024 6:31 AM 05/20/2024 5:44 PM This is orde r is used when code status has not been discussed with the patient, or code status is otherwise unknown/unconfirmed To update the patient's code status, place a code status order. Do not modify or discontinue any currently active code status orders. Healthcare Agents on File Name Relationship Healthcare Agent Relationshi p Communication Veronique Dominique Sister Health Care Agent Salome Kate Sister [facility] Health Care Agent Care Teams Aquatics Lifeguard Relationship Specialty Start Date End Date Kalpana Baptiste MD [address] [phone] PCP - General Internal Medicine 05/18/24
--- OUTSIDE RECORDS SUMMARY | 2024-06-04 10:38 | XMS_ITS | Encounter Summary ---
Author Organization [employer] Address [address] [place] [address] Care Team Providers Care Beef Pusher Name Role Phone Kalpana Baptiste MD Primary Care Provide r Reason for Visit * Reason Comments Med Refill Encounter Details Date Type Department Care Team ([facility] st Contact Info) Description 04/02/2024 Refill [facility] [address] [place], [place] [phone] Kalpana Baptiste MD 230 [place] [address] Primary osteoarthritis of both knees; Type 2 diabetes mellitus with other specified complication, unspecified whether senior living insulin use ([facility]) Social History Tobacco Use Types Packs/Day [...] 1:00 PM EST Office Visit [facility] OPTOMETRY [address] [place], [place] [phone] Jonathon, Beata, OD [address] [place] [address] 08/05/2024 1:00 PM EDT Office Visit [facility] [address] [place] [address] Kalpana Baptiste MD [address] [place] [phone] 08/12/2024 11:30 AM EDT Clinical Support [facility] [address] [place] [address] Amanda Waldrop RN documented as of this encounter Visit Diagnoses Diagnosis Primary osteoarthritis of both knees Type 2 diabetes mellitus with other specified complication, unspecified whether terminologist insulin use ([facility]) documented in this encounter Additional Health Concerns Assessment Noted Time PHQ-9 Depression Total Score: 0 08/22/19 23 10:06 AM EDT documented as of this encounter Care Teams Beef Pusher Relationship Specialty Start Date End Date Kalpana Baptiste MD [address] [place] [address] [phone] PCP - General Family Medicine 06/14/20 documented as of this encounter
--- OUTSIDE RECORDS SUMMARY | 2024-06-04 10:38 | XMS_ITS | Encounter Summary ---
Author Organization [employer] Address [address] [place] [address] Care Team Providers Care Console Manager Name Role Phone Kalpana Baptiste MD Primary Care Provide r Reason for Visit * Reason Comments Med Refill Encounter Details Date Type Department Care Team ([facility] st Contact Info) Description 05/13/2024 Refill [facility] [address] [place], [place] [phone] Kalpana Baptiste MD [address] [place] [address] Heartburn Social History Tobacco Use Types Packs/Day [...] Description 06/22/2024 1:00 PM EST Office Visit [facility] OPTOMETRY [address] [place] [address] Beata Holt, OD [address] [place] [address] 08/05/2024 1:00 PM EDT Office Visit [facility] [address] [place] [phone] Kalpana Baptiste MD [address] [place] [address] 08/12/2024 11:30 AM EDT Clinical Support [facility] [address] [place] [phone] Amanda Waldrop, NEGAR documented as of this encounter Visit Diagnoses Diagnosis Heartburn documented in this encounter Additional Health Concerns Assessment Noted Time PHQ-9 Depression Total Score: 0 05/06/19 25 2:15 PM EST documented as of this encounter Care Teams Console Manager Relationship Specialty Start Date End Date Kalpana Baptiste MD [address] [place] [address] [phone] PCP - General Family Medicine 06/14/20 documented as of this encounter
--- OUTSIDE RECORDS SUMMARY | 2024-06-04 10:38 | XMS_ITS | Encounter Summary ---
Author Organization [employer] Address [address] [place] [address] Care Team Providers Care Tour Production Supervisor Name Role Phone Kalpana Baptiste MD Primary Care Provide r Reason for Visit * Reason Comments Transition Of Care (Tcm) HDF unscheduled . LVM #2 Encounter Details Date Type Department Care Team ([facility] Contact Info) Description 05/25/2024 Patient Outreach [facility] [address] [place] [address] Kalpana Baptiste MD [address] [place] [address] Transition Of Care (Tcm) (HDF unscheduled. LVM #2) Social History Tobacco Use Types Packs/Day Years [...] as of this encounter Miscellaneous Notes * Significant Event - Mar Garcia - 05/25/2024 10:30 AM EST 05/25/24 1025 Hospital Discharges and Admission for [facility] Type of Visit Hospital Admission Date of Admission/Visit 05/18/24 Date of Discharge 05/20/24 [facility] Diagnosis Acute Kidney Failure Disposition Discharged Home Follow-Up Actions Follow-Up Needed Provider appointment Follow-Up Outcome Left Voicemail Initial Contact Date 05/25/24 JER Vazquez second call to offer patient with an HDF appointment with provider. No answerat this time. Patient's name and were not confirmed. CC left detailed message educating patienton importance of following up with provider following an inpatient admission. Provided contact information requesting a call back in order to schedule the HDF appointment. Patient educated via voicemail on extended clinic hours on Mondays and Wednesdays, and Walk-In Urgent Care Located in [facility] of [facility]. Patient provided with after-hours line for [facility], , which offer night time triage service and option to transfer to automotive collision repair instructor provider if needed. CC Discharge summary has been scanned into patient's chart. documented in this encounter Plan of Treatment Upcoming Encounters Date Type Department Care Team (Late st Contact Info) Description 06/22/2024 1:00 PM EST Office Visit [facility] OPTOMETRY [address] [place], [place] [phone] Jonathon, Beata, OD [address] [place] [address] 08/05/2024 1:00 PM EDT Office Visit [facility] MEDICINE [address] [place] [address] Kalpana Baptiste MD [address] [place] [address] 08/12/2024 11:30 AM EDT Clinical Support [address] [phone] Amanda Waldrop RN documented as of this encounter Visit Diagnoses Not on filedocumented in this encounter Additional Health Concerns Assessment Noted Time PHQ-9 Depression Total Score: 0 05/06/19 25 2:15 PM EST documented as of this encounter Care Teams Tour Production Supervisor Relationship Specialty Start Date End Date Kalpana Baptiste MD [address] [place] [address] [phone] PCP - General Family Medicine 06/14/20 documented as of this encounter
--- OUTSIDE RECORDS SUMMARY | 2024-06-04 10:38 | XMS_ITS | Encounter Summary ---
Author Organization [employer] Address [address] [place] [address] Care Team Providers Care Inspector Name Role Phone Kalpana Baptiste MD Primary Care Provide r Reason for Visit * Reason Onset Date Comments Med Refill 06/03/2023 Encounter Details Date Type Department Care Team ([facility] st Contact Info) Description 06/03/2023 Telephone [facility] [address] [place], [place] [phone] Kalpana Baptiste MD [address] [place] [address] Med Refill Social History Tobacco Use Types [...] Telephone Encounter - Neida Bower LPN - 06/03/2023 3:13 PM EST Medications pended to PCP. * Telephone Encounter - Tere Camarillo - 06/03/2023 3:03 PM EST TC from pt requesting medication refill. Medications needing refill : sucralfate (Carafate) 1 g tablet Metformin 500 mg To be sent to: [facility] - [place], [place] - [address] [place] [address] documented in this encounter Plan of Treatment Upcoming Encounters Date Type Department Care Team (Late st Contact Info) Description 06/22/2024 1:00 PM EST Office Visit [facility] OPTOMETRY [address] [place] [address] Beata Holt, OD [address] [place] [address] 08/05/2024 1:00 PM EDT Office Visit [address] [address] Kalpana Baptiste MD [address] [place] [address] 08/12/2024 11:30 AM EDT Clinical Support [address] [place] [address] Amanda Waldrop, RN documented as of this encounter Visit Diagnoses Not on filedocumented in this encounter Additional Health Concerns Assessment Noted Time PHQ-9 Depression Total Score: 0 08/22/19 23 10:06 AM EDT documented as of this encounter Care Teams Inspector Relationship Specialty Start Date End Date Kalpana Baptiste MD 230 [place] [address] PCP - General Family Medicine 06/14/20 documented as of this encounter
--- OUTSIDE RECORDS SUMMARY | 2024-06-04 10:38 | XMS_ITS | Encounter Summary ---
Author Organization [employer] Address [address] [place] [address] Care Team Providers Care Slip Seat Coverer Name Role Phone Kalpana Baptiste MD Primary Care Provide r Reason for Visit * Reason Comments Transition Of Care (Tcm) HDF unscheduled . Encounter Details Date Type Department Care Team ([facility] Contact Info) Description 05/21/2024 Patient Outreach [facility] MED & PEDS [address] [place] [address] Kalpana Baptiste MD [address] [place] [address] Transition Of Care (Tcm) (HDF unscheduled. ) Social History Tobacco Use Types Packs/Day Years [...] * Significant Event - Mar Garcia - 05/21/2024 9:17 AM EST 05/21/24 0912 Hospital Discharges and Admission for [facility] Type of Visit Hospital Admission Date of Admission/Visit 05/18/24 Date of Discharge 05/20/24 [facility] Diagnosis Acute Kidney Failure Disposition Discharged Home Follow-Up Actions Follow-Up Needed Provider appointment Follow-Up Outcome Left Voicemail Initial Contact Date 05/21/24 [facility] pompa call to offer patient with an HDF appointment with provider. No answer at this time. Patient's name and were not confirmed. CC left detailed message educating patient on importance of following up with provider following an inpatient admission. Provided contact information requesting a call back in order to schedule the HDF appointment. Patient educated via voicemail on extended clinic hours on Mondays and Wednesdays, and Walk-In Urgent Care Located in [facility] of [facility]. Patient provided with after-hours line for [facility], , which offer night time triage service and option to transfer to supervisor filtration provider if needed. CC will request Discharge summaries to scan intochart. CC will place additional outreach call within 2-5 business days. documented in this encounter Plan of Treatment Upcoming Encounters Date Type Department Care Team (Late st Contact Info) Description 06/22/2024 1:00 PM EST Office Visit [facility] OPTOMETRY [address] [place], [place] [id number] Beata Holt, OD [address] [place] [address] 08/05/2024 1:00 PM EDT Office Visit [facility] MEDICINE [address] [place] [address] Kalpana Baptiste MD [address], [place] [phone] 08/12/2024 11:30 AM EDT Clinical Support [facility] [address], [place] [phone] Amanda Waldrop RN documented as of this encounter Visit Diagnoses Not on filedocumented in this encounter Additional Health Concerns Assessment Noted Time PHQ-9 Depression Total Score: 0 05/06/19 25 2:15 PM EST documented as of this encounter Care Teams Slip Seat Coverer Relationship Specialty Start Date End Date Kalpana Baptiste MD [address] [place] [id number] PCP - General Family Medicine 06/14/20 documented as of this encounter
--- OUTSIDE RECORDS SUMMARY | 2024-06-04 10:38 | XMS_ITS | Clinical Summary ---
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 Name Role Phone Kalpana Baptiste MD Primary Care Provide r Allergies Active Allergy Reactions Criticality Noted Date Comments Aspirin Rash High Other reaction(s): Flushing, Other (see comments), unspecified Other reaction(s): SWELLING/ITCHING, rash Other Reaction(s): itching Penicillins Angioedema,Itching,Rash High Other reaction(s): Flushing, Other (see comments), unspecified Other Reaction(s): itching Vancomycin High 05/16/2021 Other reaction(s): Rash, Rash Other reaction(s): RED MAN SYNDROME PER MD Medications aluminum-magnesiu m hydroxide-simethi cone (Maalox Max) 400-400-40 MG/5ML suspension Take by mouth. Active atorvastatin (Lipitor) 20 MG tablet Take 1 tablet by mouth. Active canagliflozin (Invokana) 100 MG Take by mouth. Active citalopram (CeleXA) 10 MG tablet Take 10 mg by mouth in the morning. Active colchicine 0.6 MG tablet TAKE 2 TABLETS ORALLY, THEN 1 HOUR LATER TAKE 1 TABLET ORALLY,TAKE THIS ON 05/09/2022 Active cyanocobalamin (Vitamin B-12) 1000 MCG/ML injection Inject 1 mL into the shoulder, thigh, or buttocks. Active Diclofenac Sodium 1 % gel Apply topically every 12 (twelve) hours. Active ferrous sulfate 325 (65 Fe) MG tablet Take by mouth at bed time. Active fluticasone (Flovent HFA) 110 MCG/ACT inhaler Inhale 1 puff every 12 (twelve) hours. Active folic acid (Folvite) 1 MG tablet Take 1 mg by mouth. Active ketotifen (Alaway) 0.025 % ophthalmic solution Administer 1 drop into affected eye(s) every 12 (twelve) hours. Active lidocaine (Lidoderm) 5 % patch Place 1 patch on the skin at bed time. Active loperamide (Imodium) 2 MG capsule TAKE 1 CAPSULE BY MOUTH EVERY 6 HOURS NEEDED FOR LOOSE STOOL Active ruxolitinib (Jakafi) 5 MG chemo tablet Take 5 mg by mouth. Active sennosides (Senokot) 8.6 MG tablet Take 1 tablet by mouth. Active tamsulosin (Flomax) 0.4 MG 24 hr capsule Take 1 capsule by mouth at bed time. Active terazosin (Hytrin) 1 MG capsule Take 1 mg by mouth at bedtime. Active tolterodine LA (Detrol LA) 4 MG 24 hr capsuleIndication s:Overactive bladder Take 1 capsule (4 mg) by mouth in the morning. 90 capsule 1 023 Active melatonin 3 MG tablet TAKE 1 TABLET BY MOUTH EVERY DAY AT BEDTIME FOR SLEEP Active dicyclomine (Bentyl) 20 MG tablet TAKE 1 TABLET BY MOUTH FOUR TIMES A DAY NEEDED ABDOMINAL PAIN Active cefuroxime (Ceftin) 500 MG tablet Take 500 mg by mouth 2 times daily. 023 Active ondansetron ODT (Zofran-ODT) 4 MG disintegrating tablet DISSOLVE 1 TABLET BY MOUTH EVERY 8 HOURS NEEDED FOR NAUSEA AND VOMITING 023 Active mirtazapine (Remeron) 15 MG tabletIndications :Primary insomnia Take 1 tablet (15 mg) by mouth at bedtime for 15 doses. 15 tablet 023 Active Acetaminophen Extra Strength 500 MG tabletIndications :Chronic tension-type headache, not intractable TAKE ONE TO TWO TABLETS BY MOUTH THREE TIMES A DAY NEEDED . MAXIMUM DAILY DOSE OF 6 TABLETS / 24 HOURS. (VIAL) 100 tablet 1 024 Active FreeStyle lancetsIndication s:Type 2 diabetes mellitus with stage 3 chronic kidney disease, without long-term current use of insulin, unspecified whether stage 3a or 3b CKD ([facility]) 1 each by Other route 2 times daily. 100 each 11 024 Active Blood Glucose Monitoring Suppl (FreeStyle [place] Lite) w/Device kitIndications:Ty pe 2 diabetes mellitus with stage 3 chronic kidney disease, without long-term current use of insulin, unspecified whether stage 3a or 3b CKD ([facility]) Use to test blood sugar 2 times daily 1 kit 024 Active dextran 70-hypromellose (artificial tears) 0.1-0.3 % ophthalmic solutionIndicatio ns:Dry eyes Administer 1 drop into both eyes if needed in the morning, at noon, and at bedtime for dry eyes. 30 mL 1 024 2024 Active azithromycin (Zithromax) 250 MG tabletIndications :Acute otitis media, unspecified otitis media type Take 2 tabs PO daily x 1d then 1 tab PO daily on D2 to D5 6 tablet 024 Active polyvinyl alcohol (Liquifilm Tears) 1.4 % ophthalmic solutionIndicatio ns:Dry eyes one drop in each eye at least 2 times a day, more if burning 15 mL 1 024 Active Blood Glucose Monitoring Suppl (FreeStyle [place] Lite) w/Device kitIndications: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 ([facility]) Use to test blood sugar 2 times daily 1 kit 024 Active SITagliptin (Januvia) 50 MG tabletIndications :Type 2 diabetes mellitus with other specified complication, unspecified whether residential insulin use ([facility]) TAKE ONE TABLET BY MOUTH EVERY DAY (VIAL) 90 tablet 3 024 Active dextran 70-hypromellose PF (GenTeal Tears Moderate PF) 0.1-0.3 % ophthalmic solutionIndicatio ns:Dry eyes INSTILL ONE DROP IN EACH EYE THREE TIMES A DAY (MORNING, NOON, AND BEDTIME) NEEDED (BULK) 36 each 1 024 Active fluticasone (Flonase) 50 MCG/ACT nasal spray USE 2 SPRAYS IN EACH NOSTRIL EVERY MORNING NEEDED (BULK) 48 g 3 Active cholecalciferol (Vitamin D-3) 25 MCG (1000 UT) capsule TAKE 1 CAPSULE BY MOUTH ONCE A DAY (VIAL) 30 capsule 11 Active albuterol (2.5 MG/3ML) 0.083% nebulizer solution INHALE THE CONTENTS OF 1 VIAL VIA NEBULIZER THREE TIMES A DAY DIRECTED (BULK) 75 mL 5 024 Active pantoprazole (ProtoNix) 40 MG EC tabletIndications :Indigestion TAKE ONE TABLET BY MOUTH EVERY DAY (VIAL) 90 tablet 3 024 Active loratadine (Claritin) 10 MG tabletIndications :Allergic rhinitis, unspecified seasonality, unspecified trigger TAKE ONE TABLET BY MOUTH EVERY MORNING (VIAL) 30 tablet 11 024 Active colchicine 0.6 MG tabletIndications :Chronic gout of multiple sites, unspecified cause TAKE ONE TABLET BY MOUTH EVERY MORNING (VIAL) 28 tablet 11 024 Active famotidine (Pepcid) 20 MG tabletIndications :Abdominal pain, epigastric TAKE ONE TABLET BY MOUTH EVERY DAY (VIAL) 30 tablet 11 024 Active pravastatin (Pravachol) 40 MG tabletIndications :Other hyperlipidemia TAKE ONE TABLET BY MOUTH AT BEDTIME (VIAL) 30 tablet 11 024 Active Ventolin HFA 108 (90 Base) MCG/ACT inhalerIndication s:Moderate persistent asthma without complication INHALE TWO PUFFS BY MOUTH EVERY 6 HOURS NEEDED FOR SHORTNESS OF BREATH OR WHEEZING (BULK) 18 g 11 024 Active predniSONE (Deltasone) 20 MG tablet 2 tablets PO x first day then 1 tab po/d x 4d 6 tablet 024 Active Neomycin-Polymyxi n-HC 1 % solutionIndicatio ns:Chronic otitis externa of left ear, unspecified type Administer 3 drops into affected ear(s) 4 times daily. 10 mL 024 Active sucralfate (Carafate) 1 g tabletIndications :Heartburn TAKE ONE TABLET BY MOUTH THREE TIMES A DAY, BEFORE BREAKFAST, BEFORE LUNCH, AND BEFORE DINNER (VIAL) 90 tablet 2 024 Active naloxone (Narcan) 4 mg/0.1 mL nasal spray ADMINISTER 1 SPRAY INTO AFFECTED NOSTRIL NEEDED FOR OPIOID REVERSAL (BULK) 2 each 2 024 Active Alcohol Swabs (Easy Touch Alcohol Prep Medium) 70 % pads USE 1 SWAB ONCE DAILY (BULK) 100 each 11 024 Active FREESTYLE LITE test strip USE TO TEST BLOOD SUGAR ONCE DAILY AND DIRECTED (BULK) 50 strip Active metFORMIN (Glucophage) 500 MG tabletIndications :Type 2 diabetes mellitus with other specified complication, unspecified whether residential insulin use ([facility]) TAKE ONE TABLET BY MOUTH TWICE A DAY WITH MEALS 56 tablet 11 024 Active amLODIPine (Norvasc) 10 MG tabletIndications :Primary hypertension Take 1 tablet (10 mg) by mouth Once per day. 30 tablet 3 025 Active losartan (Cozaar) 25 MG tabletIndications :Primary hypertension Take 1 tablet (25 mg) by mouth Once per day. 30 tablet 11 025 2025 Active hydroCHLOROthiazi de 12.5 MG tabletIndications :Primary hypertension Take 1 tablet (12.5 mg) by mouth Once per day. 30 tablet 11 025 2025 Active lisinopril 5 MG tablet Take 5 mg by mouth. 2024 Discontinued amLODIPine (Norvasc) 2.5 MG tabletIndications :Primary hypertension Take 4 tablets (10 mg) by mouth in the morning. 90 tablet 1 023 2024 Discontinued hydroCHLOROthiazi de 12.5 MG tabletIndications :Primary hypertension Take 1 tablet (12.5 mg) by mouth Once per day. 30 tablet 11 024 2024 Discontinued(R eorder (will not trigger notification to Pharmacy)) amLODIPine (Norvasc) 10 MG tablet TAKE ONE TABLET BY MOUTH ONCE DAILY (VIAL) 30 tablet 8 024 2024 Discontinued(R eorder (will not trigger notification to Pharmacy)) traMADol (Ultram) 50 MG tabletIndications :Primary osteoarthritis of both knees Take 1 tablet (50 mg) by mouth every 6 (six) hours if needed for severe pain for up to 25 days. Do not start before April 15, 2024. 100 tablet 024 2024 Discontinued(R eorder (will not trigger notification to Pharmacy)) traMADol (Ultram) 50 MG tabletIndications :Primary osteoarthritis of both knees Take 1 tablet (50 mg) by mouth every 6 (six) hours if needed for severe pain for up to 25 days. 100 tablet 025 2024 Active Problems Problem Noted Date Diagnosed Date Elevated LFTs 05/06/2024 Right wrist pain 02/25/2024 Left otitis externa 02/25/2024 Urinary incontinence, mixed 02/25/2024 Assessment & Plan (02/25/2024 4:30 PM EDT): I will prescribe for patient pads for urinary incontinence Tendinitis of hand 01/30/2024 Assessment & Plan (01/30/2024 10:54 AM EDT): Not improving with topical NSAIDs and tylenol, patient allergic to ASA, I will try to avoid PO NSAIDs. 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 Assessment & Plan (02/25/2024 4:30 PM EDT): Continue to follow with specialist Preop examination 02/12/2023 Assessment & Plan (02/12/2023 3:28 PM EDT): RCRI score is 0, which is 3.9% risk Surgery should proceed as schedule NPO after midnight the day of the surgery Blood pressure medications should be taken the day of the surgery with small sip of water Colon cancer screening 02/12/2023 Primary insomnia 01/28/2023 Heartburn 01/28/2023 Assessment & Plan (01/28/2023 1:17 PM EDT): I advise patient to avoid NSAIDs, spicy and acid food, I advise to eat at the same time every day, I advise to elevate the head of the bed and take medications as prescribe Abdominal bloating 12/16/2022 Acalculous cholecystitis 12/16/2022 Acute kidney failure, unspecified 12/16/2022 Alopecia 12/16/2022 Biliary dyskinesia 12/16/2022 Contusion of foot, right 12/16/2022 Diabetic neuropathy associat ed with type 2 diabetes mellitus 12/16/2022 Dyslipidemia 12/16/2022 Dyspnea on exertion 12/16/2022 Fall 12/16/2022 GERD (gastroesophageal reflux disease) Assessment & Plan (11/25/2023 3:23 PM EDT): I advise patient to avoid NSAIDs, spicy and acid food, I advise to eat at the same time every day, I advise to elevate the head of the bed and take medications as prescribe Heel spur 12/16/2022 History of gastritis 12/16/2022 Meningioma 12/16/2022 Osteoarthritis of wrist 12/16/2022 Pain of foot 12/16/2022 UTI (urinary tract infection) 12/16/2022 Cholecystitis without calculus 12/16/2022 Contusion of right foot 12/16/2022 Neuropathy due to type 2 diabetes mellitus 12/16 Gastroesophageal reflux disease 12/16/2022 Calcaneal spur 12/16/2022 Acute nontraumatic kidney injury 12/16/2022 Urinary tract infectious disease 12/16/2022 Health care maintenance 08/21/2022 Assessment & Plan (08/21/2022 11:02 AM EDT): Pending PAP and colon cancer screening Diabetic labs ordered, diabetic foot exam done referral to optometry done Dental calculus 07/01/2022 Periodontal disease 07/01/2022 Dental caries 07/01/2022 Elevated blood pressure reading 06/21/2022 Assessment & Plan (06/21/2022 5:04 PM EST): 154/86 before leaving Patient has BP kit at home, she is to monitory BP twice a day until F/up. I gave the patient a BP log. Chronic gouty arthritis 05/14/2022 Assessment & Plan (08/21/2022 11:04 AM EDT): Pain on her foot likely due to gout arthritis flare, I advise to finsh her prednisone, I will refer patient to rheumatology and I will order labs including uric acid and if not at goal I will likely start patient on allopurinol Cobalamin deficiency 05/14/2022 History of total hysterectomy 05/14/2022 Kidney stone 05/14/2022 Osteoarthritis of both knees 05/14/2022 Assessment & Plan (08/21/2022 10:59 AM EDT): Patient has not had surgery due to her anemia I will order CBC today if hgb still too low I will communicate with hematology to plan and try to conduct patient to have her b/l knee replacement for improvement of her quality of life Primary osteoarthritis of both knees 05/14/2022 Assessment & Plan (05/06/2024 3:05 PM EST): Tramadol prescription renewed, she will be call for her CRAP SHOOTER appointment Steatosis of liver 05/14/2022 CKD stage 3 due to type 2 diabetes mellitus 01/05 Diabetic nephropathy 02/01/2021 Proteinuria 02/01/2021 Vitamin D deficiency 03/20/2017 Moderate persistent asthma 06/01/2015 Assessment & Plan (02/25/2024 4:27 PM EDT): Stable c/w same interventions Type 2 diabetes mellitus 03/29/2015 Overview (12/16/2022): Last Assessment & Plan: Today A1c 6.7 Lab Results Component Value Date CREATININE 1.91 (H) 08/17/2022 - Diabetic eye exam: referral to eye care today - Diabetic foot exam: done today - Continue lifestyle modifications - Continue current medications Assessment & Plan (08/21/2023 1:45 PM EDT): Diabetes is: controlled - Lab Results Component Value Date HGBA1C 5.9 08/21/2023 HGBA1C 6.3 (A) 01/28/2023 HGBA1C 6.7 (A) 08/21/2022 - Lab Results Component Value Date MICROALBUR 900.0 09/05/2022 CREATININE 1.58 (H) 06/03/2023 -Changes: none - Diabetic eye exam:up to date - Diabetic foot exam:up to date - Continue lifestyle modifications - Continue current medications - Follow up: 3 months Assessment & Plan (06/02/2023 4:29 PM EST): Lab Results Component Value Date HGBA1C 6.3 (A) 01/28/2023 HGBA1C 6.7 (A) 08/21/2022 - Lab Results Component Value Date MICROALBUR 900.0 09/05/2022 CREATININE 1.39 04/25/2023 - Diabetic eye exam:up to date - Diabetic foot exam:up to date - Continue lifestyle modifications - Continue current medications Assessment & Plan (02/12/2023 3:27 PM EDT): Controlled continue with same interventions and same medication regimen Assessment & Plan (01/28/2023 1:18 PM EDT): - Lab Results Component Value Date HGBA1C 6.3 (A) 01/28/2023 HGBA1C 6.7 (A) 08/21/2022 - Lab Results Component Value Date MICROALBUR 900.0 09/05/2022 CREATININE 1.53 (H) 12/28/2022 - Continue lifestyle modifications - Continue current medications Assessment & Plan (08/21/2022 11:00 AM EDT): Today A1c 6.7 Lab Results Component Value Date CREATININE 1.91 (H) 08/17/2022 - Diabetic eye exam: referral to eye care today - Diabetic foot exam: done today - Continue lifestyle modifications - Continue current medications Allergic rhinitis 03/02/2015 Anemia 03/02/2015 Chronic myeloproliferative disease 03/02/2015 Depressive disorder 03/02/2015 Indigestion 03/02/2015 Obesity 03/02/2015 Obstructive sleep apnea syndrome 03/02/2015 Assessment & Plan (06/21/2022 5:04 PM EST): Referral to sleep medicine ordered Acute pharyngitis 12/29/2013 Cough 06/16/2013 Chronic ovovv-tsiozf-lpgi disease 05/19/2013 Headache 03/24/2013 Dysuria 12/30/2012 Abdominal pain, epigastric 10/29/2012 Status post bone marrow transplant 08/27/2012 Anxiety disorder 06/24/2012 Major depressive disorder, single episode 2012 Low back pain 06/03/2012 Splenomegaly 05/13/2012 Asthma 03/06/2012 Hyperlipidemia 03/06/2012 Myelofibrosis 03/06/2012 Assessment & Plan (02/25/2024 4:30 PM EDT): Continue to follow with specialist Hypertensive disorder 03/06/2012 Assessment & Plan (05/06/2024 3:04 PM EST): - I will add losartan 25mg daily, c/w amlodipine 10mg daily and c/w hydrochlorothiazide 12.5mg daily I will refrer her also to nephrology - Aerobic exercise to reduce BP. Initial goal of 30 min walk 3-5x/week. Increase as tolerated. - low-sodium diet (goal: <2g/day) and heart healthy diet such as DASH to reduce BP and prevent ASCVD. - Home BP monitoring 1-2 x day with goal of <140/90. - Seek immediate medical attention for chest pain, palpitations, SOB, syncope, or sudden changes in mental status. - Do not change or discontinue current prescriptions without first consulting health care provider Assessment & Plan (02/25/2024 4:31 PM EDT): - Aerobic exercise to reduce BP. Initial goal of 30 min walk 3-5x/week. Increase as tolerated. - low-sodium diet (goal: <2g/day) and heart healthy diet such as DASH to reduce BP and prevent ASCVD. - Home BP monitoring 1-2 x day with goal of <140/90. - Seek immediate medical attention for chest pain, palpitations, SOB, syncope, or sudden changes in mental status. - Do not change or discontinue current prescriptions without first consulting health care provider Assessment & Plan (11/25/2023 3:23 PM EDT): C/w amlodipine 10mg daily I added today hydrochlorothiazide 12.5mg daily Assessment & Plan (08/21/2023 1:43 PM EDT): -I advise not to miss any dose of her blood pressure medications - Aerobic exercise to reduce BP. Initial goal of 30 min walk 3-5x/week. Increase as tolerated. - low-sodium diet (goal: <2g/day) and heart healthy diet such as DASH to reduce BP and prevent ASCVD. - Home BP monitoring 1-2 x day with goal of <140/90. - Seek immediate medical attention for chest pain, palpitations, SOB, syncope, or sudden changes in mental status. - Do not change or discontinue current prescriptions without first consulting health care provider Assessment & Plan (01/28/2023 1:17 PM EDT): - Aerobic exercise to reduce BP. Initial goal of 30 min walk 3-5x/week. Increase as tolerated. - low-sodium diet (goal: <2g/day) and heart healthy diet such as DASH to reduce BP and prevent ASCVD. - Home BP monitoring 1-2 x day with goal of <140/90. - Seek immediate medical attention for chest pain, palpitations, SOB, syncope, or sudden changes in mental status. - Do not change or discontinue current prescriptions without first consulting health care provider Assessment & Plan (08/21/2022 10:56 AM EDT): Maintenance: BMP: ordered today Lipid Panel: ordered today ASCVD Risk: Patient already on statin - Aerobic exercise to reduce BP. Initial goal of 30 min walk 3-5x/week. Increase as tolerated. - low-sodium diet (goal: <2g/day) and heart healthy diet such as DASH to reduce BP and prevent ASCVD. - Home BP monitoring 1-2 x day with goal of <140/90. - Seek immediate medical attention for chest pain, palpitations, SOB, syncope, or sudden changes in mental status. - Do not change or discontinue current prescriptions without first consulting health care provider - Patient today forgot to take her blood pressure medication I advise not to miss any dose and if BP is persistently high in spite of taking her medication to call back Resolved Problems Problem Noted Date Diagnosed Date Resolved Date Gout 08/21/2023 12/01/2023 Assessment & Plan (08/21/2023 1:45 PM EDT): Uric will be check C/w colchicine 0.6mg daily Encounters Date Type Department Care Team Description 05/25/2024 Patient Outreach [facility] [address] [place], [place] [id number] Kalpana Baptiste MD Transition Of Care (Tcm) (HDF unscheduled. LVM #2) 05/21/2024 Patient Outreach [facility] [address] [place], [place] [phone] Kalpana Baptiste MD Transition Of Care (Tcm) (HDF unscheduled. ) 05/13/2024 9:00 AM EST Clinical Support [address] [id number] Amanda Waldrop RN Chronic gouty arthritis (Primary Dx) 05/13/[address] [address] Kalpana Baptiste MD Heartburn 05/13/[address] [address] Amanda Waldrop RN BPI Scoring 05/13/2024 Travel 05/13/[address] [address] Amanda Waldrop, RN Recommend CRAP SHOOTER Tier 2 05/07/[address] [address] Amanda Waldrop RN Reschedule CRAP SHOOTER RV appt she cancelled 03/22/24 05/06/2024 2:30 PM EST Office Visit [facility] [address] [place] [address] Kalpana Baptiste MD Primary hypertension (Primary Dx); CKD stage 3 due to type 2 diabetes mellitus ([facility]); Elevated LFTs; Primary osteoarthritis of both knees 05/06/2024 Travel 04/12/2024 Refill [facility] [address] [place] [address] Kalpana Baptiste MD Primary osteoarthritis of both knees (Primary Dx) 04/12/2024 Refill [facility] [address] [place] [address] Kalpana Baptiste MD Type 2 diabetes mellitus with other specified complication, unspecified whether long term care phlebotomist insulin use (CMS/[facility]) 04/05/2024 11:45 AM EST Office Visit [facility] [address] [place] [address] Neida Garrett DO Generalized abdominal pain (Primary Dx); Essential hypertension 04/05/2024 Telephone [facility] [address] [place] [address] Montez Mo [place] DME for liner 04/05/2024 Travel 04/02/2024 Refill [facility] [address] [place] [address] Kalpana Baptiste MD Primary osteoarthritis of both knees; Type 2 diabetes mellitus with other specified complication, unspecified whether long term care phlebotomist insulin use (CMS/HCC) 03/31/2024 Refill [facility] [address] [place] [address] Kalpana Baptiste MD Type 2 diabetes mellitus with other specified complication, unspecified whether long term care phlebotomist insulin use (CMS/HCC); Primary osteoarthritis of both knees 03/29/2024 Refill [facility] [address] [place] [address] Kalpana Baptiste MD Type 2 diabetes mellitus with other specified complication, unspecified whether residential insulin use (CMS/HCC); Primary osteoarthritis of both knees 03/23/2024 Refill [facility] [address] [place] [address] Kalpana Baptiste MD Type 2 diabetes mellitus with other specified complication, unspecified whether long term care phlebotomist insulin use ([facility]); Primary osteoarthritis of both knees 03/23/2024 Refill [facility] [address] [place] [address] Kalpana Baptiste MD Primary osteoarthritis of both knees; Type 2 diabetes mellitus with other specified complication, unspecified whether residential insulin use ([facility]) 03/22/2024 Refill [facility] [address] [place] [address] Kalpana Baptiste MD Primary osteoarthritis of both knees 03/22/2024 Telephone [facility] [address] [place] [address] Kalpana Baptiste MD ER Follow-up 03/18/2024 Orders Only GENERIC EXTERNAL DATA DEPARTMENT Provider, Generic External Data 03/17/2024 Telephone [facility] [address] [place] [address] Jaime Garcia [place] EDDA REACLL 03/16/2024 Refill [facility] [address] [place] [address] Kalpana Baptiste MD 03/04/2024 Telephone [facility] [address] [place] [phone] Kalpana Baptiste MD from Last 3 Months Immunizations Name Administration Dates Next Due DTP / HiB 08/09/2013 DTaP, 5 pertussis antigens 08/10/2014,12/01/2013 Hep A, Adult 10/14/2018 Hep B, Adolescent or Pediatric 07/23/2010,2010 Hep B, adult 11/15/2014, 5,12/01/2013,08/09 Hib (PRP-OMP) 08/10/2014,12/01/2013 IPV 08/10/2014,12/01/2013,08/09/2013 Influenza injectable quadriv alent IIV4 with preservative 01/18/2019,03/02/2015 Influenza injectable quadriv alent preservative free 02/12/2023,02/20/2021,02/18/2020,02/11,02/17/2017 Influenza, IIV3, injectable 02/23/2014 Influenza, Split (incl. ze fied surface antigen) 01/09/2012 Influenza, seasonal, injecta ble, preservative free 02/04/2024,03/24/2016,01/26/2014 MMR 12/24/2000,02/06/2000 Meningococcal MCV4P ACYW-135 08/09/2013 Moderna Covid-19 Vaccine 12+ 05/08/2021,07/06/19,06/06/2020 Pfizer Covid-19 Vaccine 12+ 02/25/2024 Pneumococcal Conjugate PCV 13 03/24/2016 Pneumococcal Polysaccharide PPSV23 03/24,08/10/2014,08/09/2013,07/08,01/17/2009 Pneumococcal, Unspecified 01/17/2009 TD (adult), 2 Lf tetanus tox oid, preservative free, adsorbed 01/18/2019,10/01/1996 Tdap 01/17/2009 Zoster, Recombinant 08/21/2021,06/13/2021 Zoster, live 08/21/2021,06/13/2021 Family History Medical History Relation Name Comments Diabetes Brother Coronary artery disease Father Diabetes Mother Glaucoma Mother Heart disease Mother Hypertension Mother Kidney disease Mother Breast cancer Mother's Sister Breast cancer Sister Diabetes Sister Relation Name Status Comments Brother Father Mother Mother's Sister Sister Social History Tobacco Use Types Packs/Day Years Used Date Smoking Tobacco: Former Cigarettes Passive Smoke Exposure: Past Smokeless Tobacco: Never Tobacco Cessation:Counseling Given: Not Answered Alcohol Use Standard Drinks/Week Comments Never 0 [...] Orientation Straight 03/04/2022 10 :14 AM EDT Last Filed Vital Signs Vital Sign Reading Time Taken Comments Blood Pressure 165/90 05/06/2024 1:59 PM EST Pulse 71 05/06/2024 1:59 PM EST Temperature 36 ??C (96.8 ??F) 05/06/2024 1:59 PM EST Respiratory Rate 20 05/06/2024 1:59 PM EST Oxygen Saturation 99% 05/06/2024 1:59 PM EST Inhaled Oxygen Concentration - - Weight 108 kg (238 lb 3.2 oz) 05/06/2024 1:59 PM EST Height 170.2 cm (5' 7 ) 05/06/2024 1:59 PM EST Body Mass Index 37.31 05/06/2024 1:59 PM EST Plan of Treatment Upcoming Encounters Date Type Department Care Team (Late st Contact Info) Description 06/22/2024 1:00 PM EST Office Visit [facility] OPTOMETRY [address] [place] [address] Jonathon, Beata, OD [address] [place] [address] 08/05/2024 1:00 PM EDT Office Visit [facility] MEDICINE [address] [place] [phone] Kalpana Baptiste MD [address] [place] [address] 08/12/2024 11:30 AM EDT Clinical Support [facility] MEDICINE [address] [place] [address] Amanda Waldrop RN Health Maintenance Due Date Last Done Comments CT Colonography 1965 FIT DNA/Cologuard 1965 FIT 1965 FOBT 1965 HIV Screening 1965 Sigmoidoscopy 1965 Alcohol/Substance Use Screening 1975 Pap Smear 1984 HPV/Cotest 1993 Hepatitis A Vaccines (2 of 2 - Risk 2-dose series) 04/15/2019 10/14/2018 Colonoscopy 07/05/2020 07/06/2015 Colorectal Cancer Screening 07/05/2020 Pneumococcal Vaccine: 50+ Years (4 of 4 - PCV20 or PCV21) 03/24/2021 03/24/2016, 03/24/2016, 08/10/2014, Additional history exists Dental Oral Exam 12/30/2022 07/01/2022 Dental Prophylaxis 12/30/2022 07/01/2022 RSV Patients and Patients Aged 60 years or older (1 - Risk 60-74 years 1-dose series) 2023 Diabetes: Foot Exam 08/22/2023 08/21/2022, COVID-19 Vaccine ( season) 2024 02/25/2024, 05/08/2021, 07/05/2020, Additional history exists Lipid Panel 08/20/2024 08/21/2023, 07/03, 02/20/2021 Diabetes: Hemoglobin A1C 08/25/2024 024, 11/25/2023, 08/21/2023, Additional history exists Mammogram 08/25/2024 08/26/2023, 08/03, 08/21/2022, Additional history exists Dental X-Ray: Bitewings 12/18/2024 12/18/2023, 07/01 Eye Exam 01/13/2025 01/13/2023, 01/03, 01/13/2023, Additional history exists Depression Screening 05/06/2025 05/06/2024, 05/06/19 SDOH Screening 05/06/2025 05/06/2024 Tobacco Screening 05/06/2025 05/06/2024 Dental X-Ray: Full Mouth 07/02/2025 07/01/2022 DTaP/Tdap/Td Vaccines (6 - Td or Tdap) 01/18/2029 01/18/2019, 08/10/2014, 12/01/2013, Additional history exists Meningococcal Vaccine Aged Out 08/09/2013 No nuno juvenal eligible based on patient's age to complete this topic HIB Vaccines Aged Out 08/10/2014, 11/04, 08/09/2013 No longer eligible based on patient's age to complete this topic IPV Vaccines Completed 08/10/2014, 11/04, 08/09/2013 Hepatitis B Vaccines Completed 11/15/2014, 08/10/2014, 12/01/2013, Additional history exists Hepatitis C Screening Completed 02/20/2021 Zoster Vaccines Completed 08/21/2021, 08/03, 06/13/2021, Additional history exists Influenza Vaccine Completed 02/04/2024, , 02/20/2021, Additional history exists Cervical Cancer Screening Discontinued HPV Vaccines Aged Out No longer eligi ble based on patient's age to complete this topic RSV under 20 months Aged Out No longe r eligible based on patient's age to complete this topic Rotavirus Vaccines Aged Out No longer eligible based on patient's age to complete this topic Procedures Procedure Name Priority Date/Time Associated Diagnosis Comments POCT MARY-14 URINE DRUG SCREEN Routine 05/13/2024 9:14 AM EST Chronic gouty arthritis CT ABDOMEN PELVIS WO CONTRAST Routine 03/18/2024 10:03 PM EST LIPASE Routine 03/18/2024 2:49 PM EST MAGNESIUM Routine 03/18/2024 2:49 PM EST BASIC METABOLIC PANEL Routine 03/18/2024 2:49 PM EST HEPATIC FUNCTION PANEL Routine 03/18/2024 2:49 PM EST URINALYSIS, COMPLETE, WITH REFLEX TO CULTURE Routine 03/18/2024 2:49 PM EST URINALYSIS WITH REFLEX MICROSCOPIC Routine 03/18/2024 2:49 PM EST CBC WITH AUTO DIFFERENTIAL Routine 03/18/2024 2:49 PM EST POCT GLYCATED HEMOGLOBIN, TOTAL Routine 02/25/2024 2:04 PM EDT Type 2 diabetes mellitus with stage 3 chronic kidney disease, without long-term current use of insulin, unspecified whether stage 3a or 3b CKD (CMS/HCC) BITEWING - SINGLE RADIOGRAPHIC IMAGE Routine 12/18/2023 11:00 AM EDT Full coverage crown needed for root canal-treated tooth BI MAMMOGRAM SCREENING TOMOSYNTHESIS BILATERAL Routine 08/26/2023 2:30 PM EDT LIPID PANEL, STANDARD Routine 08/21/2023 1:45 PM EDT Primary hypertension PERIODIC ORAL EVALUATION - ESTABLISHED PATIENT Routine 07/01/2022 2:00 PM EST PROPHYLAXIS - ADULT Routine 07/01/2022 1 :00 PM EST Dental calculus Periodontal disease DIAGNOSTIC - DIAGNOSTIC IMAGING - INTRAORAL - COMPREHENSIVE SERIES OF RADIOGRAPHIC IMAGES Routine 07/01/2022 1:00 PM EST Dental calculus Periodontal disease Dental caries ZZZ HISTORICAL HEPATITIS C AB W/REFL TO HCV RNA, QN, PCR Routine 02/20/2021 1:06 PM EDT HM COLONOSCOPY Routine 07/06/2015 from Last 3 Months or Most Recently Relevant to Health Maintenance Results * POCT MARY-14 Urine Drug Screen (05/13/2024 9:14 AM EST) Urine Urine specimen obtained by clean catch procedure / Unknown 05/13/2024 9:14 AM EST Narrative Amanda Waldrop RN - 05/13/2024 9:14 AM EST UTOX cup Lot#[id number] Exp. 01/27/26 Internal Pass Control Negative for all substances us Kalpana Steele MD POINT OF CARE TEST EN TER/EDIT ORDERABLES Final Result * CT Abdomen Pelvis w/o Contrast (03/18/2024 10:03 PM EST) Anatomical Region Laterality Modality Body, Pelvis, Abdomen Computed T omography 03/18/2024 10:0 3 PM EST Narrative 03/18/2024 10:32 PM EST ? [facility] ?[address] ?[place] [address] ? CT Scan Report ? Signed ? Patient: Lavinia,Santa ?MR#: [id number] ?? 74 ? : 1965 ?Acct:[id number] ? Age/Sex: 59 / F ?ADM Date: 03/18/24 ? Loc: HO.ED ? Attending Dr: ? Ordering Physician: Rickey Horton MD ?? Date of Service: 03/18/24 ?? Procedure(s): CT abdomen pelvis wo IV con ?? Accession Number(s): [id number] ? cc: Kalpana Baptiste MD; Rickey Horton MD ? EXAMINATION: ?? CT ABDOMEN AND PELVIS WITHOUT CONTRAST ? CLINICAL INFORMATION: ?? Right-sided abdominal pain, flank pain ? COMPARISON: ?? CT abdomen pelvis 12/28/2022 ? TECHNIQUE: ?? Multidetector volumetric imaging was performed from the superior aspect ?? of the liver through the pubic symphysis. Sagittal and coronal ?? reformatted images were obtained on the technologist's workstation. ? This CT examination was performed using dose optimization techniques as ?? appropriate, variously including the following: ?? *Automated exposure control ?? *Adjustment of mA and/or kV according to patient size (this includes ?? techniques or standardized protocols for targeted exams where dose is ?? matched to indication/reason for exam; i.e. extremities or head) ?? *Use of iterative reconstruction technique ? DLP: ?? 876 mGy-cm ? FINDINGS: ?? LUNG BASES: The visualized lung bases are unremarkable. ??There is some ?? right basilar atelectasis/scarring. Compare ? LIVER, GALLBLADDER, AND BILIARY TREE: The liver is markedly enlarged at ?? 25.3 cm in cephalocaudad dimension with decreased attenuation ?? consistent with min hepatic steatosis. ??No focal hepatic lesion or ?? biliary ductal dilatation is present. The gallbladder is unremarkable ?? with no evidence of radiopaque gallstones, gallbladder wall thickening, ?? or obvious pericholecystic inflammatory changes. ? PANCREAS: Unremarkable. ? SPLEEN: Unremarkable. ? ADRENAL GLANDS: Unremarkable. ? KIDNEYS AND URETERS: The kidneys are normal in size, shape, and ?? attenuation. There is a 4 mm nonobstructing calculus in the mid left ?? kidney. No hydronephrosis, hydroureter, or calculi seen. No perinephric ?? stranding. ?? A benign right lower pole 2.2 cm Bosniak class I renal ?? cyst is noted which requires no additional imaging or follow up. No ?? solid renal masses are seen. ? BLADDER: Unremarkable. ? GASTROINTESTINAL TRACT: There is a small hiatal hernia present. The The ?? small and large bowel are unremarkable. The appendix is unremarkable. ? ABDOMINAL WALL: No significant hernia is appreciated. ? LYMPH NODES: No retroperitoneal lymphadenopathy. ? VASCULAR: Minimal calcific atherosclerotic changes are present in the ?? aorta and iliac vessels. There is no evidence of an abdominal aortic ?? aneurysm. ? PELVIC VISCERA: The uterus is not seen. An abnormal adnexal mass is not ?? detected. No free intraperitoneal fluid is present. ? OSSEOUS STRUCTURES: Unremarkable. Degenerative changes are seen at ?? L5-S1 ? CT/CT abdomen pelvis wo IV con ?? IMPRESSION: ?? 1. ??A cause for the patient's right-sided abdominal pain and flank pain ?? has not been found. ?? 2. ??Incidental note made of an enlarged fatty liver, 4 mm ?? nonobstructing left renal calculus, small hiatal hernia, benign right ?? renal cyst which needs no follow-up and degenerative changes L5-S1. ? Fleischner guidelines were followed. ? Electronically signed by: ??Daron Olmstead MD ??03/18/2024 10:28 PM EST ?? RP ? Dictated By: ?Daron Olmstead MD ? Signed By: ?<Electronically signed by Daron Olmstead MD in OV> ? 03/18/248 ? DD/ 02 ? TD/TT: 03/18/242202 ? [employer] Product Consultant: SS ? Procedure Note Donotrayainterpreter, Image - 03/18/[address] [place] [address] [address] Scan Report Signed Patient: Damian Kate#: [id number] 74 : 1965Acct:[id number] Age/Sex: 59 / FADM Date: 03/18/24 Loc: HO.ED Attending Dr: Ordering Physician: Rickey Horton MD Date of Service: 03/18/24 Procedure(s): CT abdomen pelvis wo IV con Accession Number(s): [id number] cc: Kalpana Baptiste MD; Rickey Horton MD EXAMINATION: CT ABDOMEN AND PELVIS WITHOUT CONTRAST CLINICAL INFORMATION: Right-sided abdominal pain, flank pain COMPARISON: CT abdomen pelvis 12/28/2022 TECHNIQUE: Multidetector volumetric imaging was performed from the superior aspect of the liver through the pubic symphysis. Sagittal and coronal reformatted images were obtained on the technologist's workstation. This CT examination was performed using dose optimization techniques as appropriate, variously including the following: *Automated exposure control *Adjustment of mA and/or kV according to patient size (this includes techniques or standardized protocols for targeted exams where dose is matched to indication/reason for exam; i.e. extremities or head) *Use of iterative reconstruction technique DLP: 876 mGy-cm FINDINGS: LUNG BASES: The visualized lung bases are unremarkable. There is some right basilar atelectasis/scarring. Compare LIVER, GALLBLADDER, AND BILIARY TREE: The liver is markedly enlarged at 25.3 cm in cephalocaudad dimension with decreased attenuation consistent with min hepatic steatosis. No focal hepatic lesion or biliary ductal dilatation is present. The gallbladder is unremarkable with no evidence of radiopaque gallstones, gallbladder wall thickening, or obvious pericholecystic inflammatory changes. PANCREAS: Unremarkable. SPLEEN: Unremarkable. ADRENAL GLANDS: Unremarkable. KIDNEYS AND URETERS: The kidneys are normal in size, shape, and attenuation. There is a 4 mm nonobstructing calculus in the mid left kidney. No hydronephrosis, hydroureter, or calculi seen. No perinephric stranding. A benign right lower pole 2.2 cm Bosniak class I renal cyst is noted which requires no additional imaging or follow up. No solid renal masses are seen. BLADDER: Unremarkable. GASTROINTESTINAL TRACT: There is a small hiatal hernia present. The The small and large bowel are unremarkable. The appendix is unremarkable. ABDOMINAL WALL: No significant hernia is appreciated. LYMPH NODES: No retroperitoneal lymphadenopathy. VASCULAR: Minimal calcific atherosclerotic changes are present in the aorta and iliac vessels. There is no evidence of an abdominal aortic aneurysm. PELVIC VISCERA: The uterus is not seen. An abnormal adnexal mass is not detected. No free intraperitoneal fluid is present. OSSEOUS STRUCTURES: Unremarkable. Degenerative changes are seen at L5-S1 CT/CT abdomen pelvis wo IV con IMPRESSION: 1. A cause for the patient's right-sided abdominal pain and flank pain has not been found. 2. Incidental note made of an enlarged fatty liver, 4 mm nonobstructing left renal calculus, small hiatal hernia, benign right renal cyst which needs no follow-up and degenerative changes L5-S1. Fleischner guidelines were followed. Electronically signed by: Daron Olmstead MD 03/18/2024 10:28 PM [facility] Dictated By: Daron Olmstead MD Signed By: <Electronically signed by Daron Olmstead MD in OV> 03/18/242227 DD/ 02 TD/TT: 03/18/242202 [employer] Product Consultant: [facility] External Provider IMG CT PROCEDURES Edited Result - Final * (ABNORMAL) Urinalysis, Complete, with Reflex to Culture (03/18/2024 2:49 PM EST) Color Urine Yellow [facility] Appearance Urine Clear [facility] PH 5.5 5.0 - 9.0 [facility] Glucose Urine UA Negative Negative mg/dL [facility] Urine Blood Small (1+)(A) Negative [facility] Specific [place] - Urine 1.015 1.005 - 1.025 [facility] Urine Protein 300 (3+)(A) Neg-Trace mg/dL [facility] Urine Ketones Negative Negative mg/dL [facility] Nitrite Urine Negative Negative [facility] Leukocyte Esterase Urine Negative Negative [facility] RBC Urine 0-2 0 - 2 /HPF [facility] Urine WBC 0-5 0 - 5 /HPF [facility] Urine Squamous Epithelial Cell 0-2 0 - 2 /HPF [facility] Urine Bacteria None Seen None Seen [facility] Hyaline Casts, Urine 3-5 0 - 2 /LPF [facility] 03/18/2024 2:49 PM EST 03/18/2024 2:58 PM EST Narrative [facility] - 03/18/2024 3:17 PM EST Urine, Clean Catch us Generic External Data Provider LAB URINE ORDERAB LES Final Result Performing Organization Address City/State/[facility] Co de Phone Number [facility] [address] [place] [phone] * (ABNORMAL) CBC auto differential (03/18/2024 2:49 PM EST) White Blood Count 7.4 4.8 - 10.8 X10*3/uL [facility] Red Blood Count 3.35(L) 4.20 - 5.50 X10*6/uL [facility] Hemoglobin 10.0(L) 12.0 - 16.0 g/dl [facility] Hematocrit 29.6(L) 37.0 - 47.0 % [facility] Mean Corpuscular Volume 88.4 80.0 - 98.0 fL [facility] Mean Corpuscular Hemoglobin 29.9 27.0 - 33.0 pg [facility] Mean Corpuscular HGB Conc 33.8 31.0 - 35.0 g/dl [facility] Red Cell Distribution Width 13.1 11.0 - 16.0 % [facility] Platelet Count 250 160 - 400 X10*3/uL [facility] Mean Platelet Volume 9.2(L) 9.4 - 12.3 fL [facility] Neutrophils Percent Auto 59.0 45 - 73 % [facility] Imm Gran Pct Auto 0.3 0.0 - 0.4 % [facility] Lymphocytes Percent Auto 29.6 20 - 40 % [facility] Monocytes Percent Auto 9.5 2 - 11 % [facility] Eosinophils Percent Auto 1.5 0 - 4 % [facility] Basophils Percent Auto 0.1 0 - 2 % [facility] NRBC Pct Auto 0.0 0.0 - 0.2 /100WBC [facility] Neutrophils Absolute Auto 4.4 2.0 - 8.3 x10*3/uL [facility] Imm Gran Abs Auto 0.02 0.00 - 0.03 X10*3/uL [facility] Lymphocytes Absolute Auto 2.2 1.2 - 4.9 X10*3/uL [facility] Monocytes Absolute Auto 0.7 0.1 - 1.2 X10*3/uL [facility] Eosinophils Absolute Auto 0.1 0.0 - 0.4 X10*3/uL [facility] Basophils Absolute Auto 0.0 0.0 - 0.2 X10*3/uL [facility] NRBC Abs Auto 0.000 0.0 - 0.012 X10*3/uL [facility] 03/18/2024 2:49 PM EST 03/18/2024 2:58 PM EST us Generic External Data Provider LAB BLOOD ORDERAB LES Final Result Performing Organization Address City/State/[facility] Co de Phone Number [facility] [address] [place] [address] [phone] * (ABNORMAL) Urinalysis w/reflex microscopic (03/18/2024 2:49 PM EST) Color Urine Yellow [facility] Appearance Urine Clear [facility] PH 5.5 5.0 - 9.0 [facility] Glucose Urine UA Negative Negative mg/dL [facility] Urine Blood Small (1+)(A) Negative [facility] Specific [place] - Urine 1.015 1.005 - 1.025 [facility] Urine Protein 300 (3+)(A) Neg-Trace mg/dL [facility] Urine Ketones Negative Negative mg/dL [facility] Nitrite Urine Negative Negative [facility] Leukocyte Esterase Urine Negative Negative [facility] 03/18/2024 2:49 PM EST 03/18/2024 2:58 PM EST Narrative [facility] - 03/18/2024 3:03 PM EST Urine, Clean Catch us Generic External Data Provider LAB URINE ORDERAB LES Final Result Performing Organization Address [facility] Co vt Phone Number [facility] [address] [place] [phone] * Magnesium (03/18/2024 2:49 PM EST) Magnesium 1.8 1.6 - 2.6 mg/dL [facility] 03/18/2024 2:49 PM EST 03/18/2024 2:58 PM EST us Generic External Data Provider LAB BLOOD ORDERAB LES Final Result Performing Organization Address [facility] Co de Phone Number [facility] [address] [place] [phone] * Lipase (03/18/2024 2:49 PM EST) Lipase 31 8 - 78 U/L [facility] 03/18/2024 2:49 PM EST 03/18/2024 2:58 PM EST Generic External Data Provider LAB BLOOD ORDERAB LES Final Result Performing Organization Address [facility]/ZIP Co de Phone Number [facility] [address] [place] [phone] * (ABNORMAL) Hepatic Function Panel (03/18/2024 2:49 PM EST) [facility] Bilirubin, Total 0.5 0.0 - 1.0 mg/dL [facility] Bilirubin, Direct 0.1 0.0 - 0.5 mg/dL [facility] Aspartate Amino Transferase 43(H) 5 - 31 U/L [facility] Alanine Aminotransferase 50(H) 0 - 31 U/L [facility] Total Protein 7.5 6.5 - 8.0 g/dL [facility] Albumin Level 4.5 3.5 - 5.0 g/dL [facility] Alkaline Phosphatase 72 39 - 117 U/L [facility] 03/18/2024 2:49 PM EST 03/18/2024 2:58 PM EST us Generic External Data Provider LAB BLOOD ORDERAB LES Final Result Performing Organization Address [facility]/ZIP Co de Phone Number [facility] [address] [place] [phone] * (ABNORMAL) Basic Metabolic Panel (03/18/2024 2:49 PM EST) [facility] Sodium 139 135 - 145 mmol/L [facility] Potassium 4.5 3.3 - 5.1 mmol/L [facility] Chloride 106 96 - 108 mmol/L [facility] Carbon Dioxide 26 22 - 29 mmol/L [facility] Anion Gap 12 12 - 20 [facility] Urea Nitrogen (BUN) 19(H) 9 - 16 mg/dL [facility] Creatinine, Serum 1.93(H) 0.5 - 1.4 mg/dL [facility] Creatinine Clr Calc Pharmacy 38.9 [facility] Comment:Provided height and weight: 170.18 cm,109.316 kg.eGFR (calculated from the MDRD study equation) and eCrCl(calculated from the Cockcroft-Gault equation) are based ondifferent parameters and may not yield comparable results.If eCrCl result is absurd, please check patient'sheight/weight. Estimated Glomerular Filt Rate 26 [facility] Comment:Chronic Kidney Disea se: Estimated GFR < 60 mL/min/1.37b4Gydpzy Kidney Disease: Estimated GFR < 15 mL/min/1.73m2 Glucose 101 60 - 115 mg/dL [facility] Calcium 9.0 8.4 - 10.2 mg/dL [facility] 03/18/2024 2:49 PM EST 03/18/2024 2:58 PM EST us Generic External Data Provider LAB BLOOD ORDERAB LES Final Result [facility] [address] [place] [phone] * (ABNORMAL) POCT HGB A1C (02/25/2024 2:04 PM EDT) Hemoglobin A1C 6.0 4.0 - 6.0 % QC Media Lot # [id number] Lot# Expiration Date [id number] Blood 02/25/2024 2:04 PM EDT us Kalpana Steele MD POINT OF CARE TEST EN TER/EDIT ORDERABLES Final Result * BI Mammogram Screening Tomosynthesis Bilateral (08/26/2023 2:30 PM EDT) Anatomical Region Laterality Modality Breast Bilateral Mammography 08/26/2023 2:30 PM EDT Narrative 09/22/2023 4:39 AM EDT ? [facility] ? [address] ?[place] [address] ? Mammography Report ? Signed ? Patient: Lavinia,Santa ?MR#: [id number] ?? 74 ? : 1965 ?Acct:[id number] ? Age/Sex: 58 / F ?ADM Date: 08/26/23 ? Loc: HO.MAMMO ? Attending Dr: Kalpana Steele MD ? Ordering Physician: Kalpana Baptiste MD ?Results: ?? 2Benign Findings ? Date of Service: 08/26/23 ?Follow Up: 1 Year From Orig ?? inal Mammogram ? Procedure(s): MM tomosynthesis screening BI ?? Accession Number(s): [id number] ? cc: Kalpana Baptiste MD ? EXAMINATION: ?? MM SCREENING DIGITAL BREAST TOMOSYNTHESIS, BILATERAL ? CLINICAL INFORMATION: ? Screening. Asymptomatic. ? The patient is status post bilateral breast reduction. ? COMPARISON: ?? Mammography: This study is compared with prior exams dating back to ?? 2019. ? TECHNIQUE: ?? Digital breast tomosynthesis is performed in both the craniocaudal and ?? mediolateral oblique views along with computer-aided detection (CAD). ?? Synthesized 2D images are generated from the tomosynthesis. ? FINDINGS: ?? There are scattered areas of fibroglandular density (ACR BI-RADS breast ?? composition Category b). ? There are no significant masses, abnormal calcifications, or other ?? abnormalities. ? Few, coarse, retroareolar calcifications are present in the left ?? breast. These are benign and unchanged from prior studies. ? There are post reduction changes in each breast. ? MM/MM tomosynthesis screening BI ?? IMPRESSION: ?? No mammographic evidence of malignancy. ? ASSESSMENT: ? BI-RADS BI-RADS 2 - Benign Findings ? RECOMMENDATION: ?? Routine annual mammography screening. ? 1 year F/U ? This examination should not preclude the clinical evaluation of a ?? suspicious palpable abnormality. ? This patient's information was entered into a reminder system with a ?? target due date for their next mammogram. ? Dictated By: ?Kate Arana MD ? Signed By: ?<Electronically signed by Kate Arana MD in OV> ? 09/22/23 0435 ? DD/ 1430 ? TD/TT: ? [employer] Product Consultant: ? Procedure Note Donlisater, Image - 09/22/2023 [facility] [address] [place] [address] Mammography Report Signed Patient: Damian Kate#: [id number] : 1965Acct:[id number] Age/Sex: 58 / FADM Date: 08/26/23 Loc: HO.MAMMO Attending Dr: Kalpana Steele MD Ordering Physician: Kalpana Baptiste MDResults: 2Benign Findings Date of Service: 08/26/23Follow Up: 1 Year From Orig inal Mammogram Procedure(s): MM tomosynthesis screening BI Accession Number(s): [id number] cc: Kalpana Baptiste MD EXAMINATION: MM SCREENING DIGITAL BREAST TOMOSYNTHESIS, BILATERAL CLINICAL INFORMATION: Screening. Asymptomatic. The patient is status post bilateral breast reduction. COMPARISON: Mammography: This study is compared with prior exams dating back to 2019. TECHNIQUE: Digital breast tomosynthesis is performed in both the craniocaudal and mediolateral oblique views along with computer-aided detection (CAD). Synthesized 2D images are generated from the tomosynthesis. FINDINGS: There are scattered areas of fibroglandular density (ACR BI-RADS breast composition Category b). There are no significant masses, abnormal calcifications, or other abnormalities. Few, coarse, retroareolar calcifications are present in the left breast. These are benign and unchanged from prior studies. There are post reduction changes in each breast. MM/MM tomosynthesis screening BI IMPRESSION: No mammographic evidence of malignancy. ASSESSMENT: BI-RADS BI-RADS 2 - Benign Findings RECOMMENDATION: Routine annual mammography screening. 1 year F/U This examination should not preclude the clinical evaluation of a suspicious palpable abnormality. This patient's information was entered into a reminder system with a target due date for their next mammogram. Dictated By: Kate Arana MD Signed By: <Electronically signed by Kate Arana MD in OV> 09/22/23 0435 DD/ 1430 TD/TT: [employer] Product Consultant: us Kalpana Steele MD IMG BI PROCEDURES Chad nick Result - Final * (ABNORMAL) Lipid Panel, Standard (08/21/2023 1:45 PM EDT) Triglycerides 552(H) <150 mg/dL [facility] Comment:Desirable Triglyceri de: less than 150 mg/dLBorderline High Triglyceride 150-199 mg/dLHigh Triglyceride: 200-499 mg/dLVery High Triglyceride: greater than or equal to 5OO mg/dL Cholesterol 268(H) <200 mg/dL [facility] Comment:Desirable Cholestero l: less than 200 mg/dLBorderline High Cholesterol: 200-239 mg/dLHigh Cholesterol: greater than 239 mg/dL LDL Cholesterol Calculated TNP <100 mg/dL [facility] Comment:Unable to calculate the LDL. The formula of Friedwald,Stock, and Mendoza is only valid if the triglycerides areless than 400 mg/dl. HDL Cholesterol 50 >40 mg/dL [facility] Comment:Desirable HDL: great er than 40 mg/dL Note: This HDL assay may give artificially low results in patients with liver disease. Blood Venous blood specimen / Unknown 08/21/2023 1:45 PM EDT 08/21/2023 3:52 PM EDT Kalpana Steele MD LAB BLOOD ORDERABLES Final Result Performing Organization Address [facility]/ZIP Co de Phone Number [facility] [address] [place] [address] [phone] * HEPATITIS C AB W/REFL TO HCV RNA, QN, PCR (02/20/2021 1:06 PM EDT) HEPATITIS C ANTIBODY NON-REACT KARYNA NON-REACT KARYNA [facility] INDEX 0.02 <1.00 [facility] Comment: ?? HCV antibody was non-reactive. There is no laboratory ?? evidence of HCV infection. ?? In most cases, no further action is required. However, if recent HCV exposure is suspected, a test for HCV RNA (test code 35249) is suggested. ?? For additional information please refer to http://education.Wander (f. [employer])/faq/ZPL43l2 (This link is being provided for informational/ educational purposes only.) ?? 02/20/2021 1:06 PM EDT Jennifer Carty DOCK OPERATOR HISTORICAL/NON ORDERABLE LABS Final Result Performing Organization Address [facility] Co de Phone Number [facility] [address] * Colonoscopy (07/06/2015) Colonoscopy Normal Normal Narrative Therese Brown - 07/06/2015 Recommended 5 year follow up Emilee Provider HEALTH MAINTENANCE Final Result from Last 3 Months or Most Recently Relevant to Health Maintenance [place] [facility] MEDICAID STAND ADULT Care Teams Wire Brush Maker Relationship Specialty Start Date End Date Kalpana Baptiste MD [address] [place] [address] PCP - General Family Medicine 06/14/20
--- OUTSIDE RECORDS SUMMARY | 2024-06-04 10:39 | XMS_ITS | Encounter Summary ---
Author Organization [employer] Address [address] 7t [place] [address] Care Team Providers Care Classification Analyst Name Role Phone Kalpana Baptiste MD Primary Care Provide r Reason for Visit * Reason Comments Med Refill Encounter Details Date Type Department Care Team ([facility] Contact Info) Description 06/11/2022 Refill [facility] CHC MED & PEDS [address] [place], [place] [phone] Neida Garrett DO [address] [place] [address] Social History Tobacco Use Types Packs/Day Years [...] suspected to have Coronavirus/COVID-19? No / Unsure 05/13/2022 9:49 AM EST documented as of this encounter Plan of Treatment Upcoming Encounters Date Type Department Care Team ([facility] Contact Info) Description 06/22/2024 1:00 PM EST Office Visit [facility] OPTOMETRY [address] [place] [address] Beata Holt, OD [address] [place] [address] 08/05/2024 1:00 PM EDT Office Visit [address] [address] Kalpana Baptiste MD [address] [place] [address] 08/12/2024 11:30 AM EDT Clinical Support [address] [address] Amanda Waldrop, NEGAR documented as of this encounter Visit Diagnoses Not on filedocumented in this encounter Care Teams Classification Analyst Relationship Specialty Start Date End Date Kalpana Baptiste MD [address] [place] [address] PCP - General Family Medicine 06/14/20 documented as of this encounter
--- OUTSIDE RECORDS SUMMARY | 2024-06-04 10:39 | XMS_ITS | Encounter Summary ---
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 insulin use ([facility]) Social History Tobacco Use Types Packs/Day Years [...] EST Office Visit [facility] OPTOMETRY [address] [place] [address] Jonathon, Beata, OD [address] [place] [address] 08/05/2024 1:00 PM EDT Office Visit [facility] MEDICINE [address] [place] [address] Kalpana Baptiste MD [address] [place] [phone] 08/12/2024 11:30 AM EDT Clinical Support [facility] [address] [place] [address] Amanda Waldrop, NEGAR documented as of this encounter Visit Diagnoses Diagnosis Type 2 diabetes mellitus with other specified complication, 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
--- OUTSIDE RECORDS SUMMARY | 2024-06-04 10:39 | XMS_ITS | Encounter Summary ---
Author Organization [employer] Address [address] 7t [place] [address] Care Team Providers Care Post Form Remover Name Role Phone Kalpana Baptiste MD Primary Care Provide r Reason for Visit * Reason Comments Med Refill Encounter Details Date Type Department Care Team ([facility] Contact Info) Description 06/01/2022 Refill [facility] CHC MED & PEDS [address] [place], [place] [phone] Neida Garrett DO 230 [place] [address] Social History Tobacco Use Types Packs/Day Years [...] Upcoming Encounters Date Type Department Care Team ([facility] Contact Info) Description 06/22/2024 1:00 PM EST Office Visit [facility] OPTOMETRY [address] [place] [address] Beata Holt, OD [address] [place] [address] 08/05/2024 1:00 PM EDT Office Visit [address] [address] Kalpana Baptiste MD [address] [place] [address] 08/12/2024 11:30 AM EDT Clinical Support [address] [address] Amanda Waldrop, NEGAR documented as of this encounter Visit Diagnoses Not on filedocumented in this encounter Care Teams Post Form Remover Relationship Specialty Start Date End Date Kalpana Baptiste MD [address] [place] [address] PCP - General Family Medicine 06/14/20 documented as of this encounter
--- OUTSIDE RECORDS SUMMARY | 2024-06-04 10:39 | XMS_ITS | Encounter Summary ---
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 supervisor insulin use ([facility]) Social History Tobacco Use Types Packs/Day Years [...] Description 06/22/2024 1:00 PM EST Office Visit [facility] OPTOMETRY [address] [place] [address] Jonathon, Beata, OD [address] [place] [address] 08/05/2024 1:00 PM EDT Office Visit [facility] MEDICINE [address] [place] [address] Kalpana Baptiste MD [address] [place] [address] 08/12/2024 11:30 AM EDT Clinical Support [facility] [address] [place] [address] Amanda Waldrop, NEGAR documented as of this encounter Visit Diagnoses Diagnosis Type 2 diabetes mellitus with other specified complication, unspecified whether extermination supervisor insulin use ([facility]) documented in this encounter Additional Health Concerns Assessment Noted Time PHQ-9 Depression Total Score: 0 08/22/19 23 10:06 AM EDT documented as of this encounter Care Teams Production Laborer Relationship Specialty Start Date End Date Kalpana Baptiste MD [address] [place] [address] PCP - General Family Medicine 06/14/20 documented as of this encounter
--- OUTSIDE RECORDS SUMMARY | 2024-06-04 10:39 | XMS_ITS | Encounter Summary ---
Author Organization [employer] Address [address] 7t [place] [address] Care Team Providers Care Irrigation Specialist Name Role Phone Kalpana Baptiste MD Primary Care Provide r Reason for Visit * Reason Comments Med Refill Encounter Details Date Type Department Care Team ([facility] st Contact Info) Description 03/11/2023 Refill [facility] [address] [place], [place] [phone] Kalpana Baptiste MD 230 [place] [address] Chronic tension-type headache, not intractable; Primary osteoarthritis of both knees Social History [...] Description 06/22/2024 1:00 PM EST Office Visit [facility] OPTOMETRY [address] [place] [address] Jonathon, Beata, OD 230 [place] [address] 08/05/2024 1:00 PM EDT Office Visit [facility] MEDICINE [address] [place] [address] Kalpana Baptiste MD [address] [place] [address] 08/12/2024 11:30 AM EDT Clinical Support [facility] [address] [place] [address] Amanda Waldrop RN documented as of this encounter Visit Diagnoses Diagnosis Chronic tension-type headache, not intractable Chronic tension type headache Primary osteoarthritis of both knees documented in this encounter Additional Health Concerns Assessment Noted Time PHQ-9 Depression Total Score: 0 08/22/19 23 10:06 AM EDT documented as of this encounter Care Teams Irrigation Specialist Relationship Specialty Start Date End Date Kalpana Baptiste MD [address] [place] [address] PCP - General Family Medicine 06/14/20 documented as of this encounter
--- OUTSIDE RECORDS SUMMARY | 2024-06-04 10:39 | XMS_ITS | Encounter Summary ---
Author Organization [employer] Address [address] [place] [address] Care Team Providers Care Safety Risk Lead Name Role Phone Kalpana Baptiste MD Primary Care Provide r Encounter Details Date Type Department Care Team (Latest Contact Info) Description 05/06/2024 Travel Social History Tobacco Use Types Packs/Day [...] Description 06/22/2024 1:00 PM EST Office Visit [facility] OPTOMETRY [address] [place], [place] [phone] Beata Holt, OD 230 [place] [address] 08/05/2024 1:00 PM EDT Office Visit [facility] MEDICINE [address] [place] [address] Kalpana Baptiste MD [address] [place] [address] 08/12/2024 11:30 AM EDT Clinical Support [facility] [address] [place] [address] Amanda Waldrop RN documented as of this encounter Visit Diagnoses Not on filedocumented in this encounter Additional Health Concerns Assessment Noted Time PHQ-9 Depression Total Score: 0 05/06/19 25 2:15 PM EST documented as of this encounter Care Teams Safety Risk Lead Relationship Specialty Start Date End Date Kalpana Baptiste MD [address] [place], [place] [phone] PCP - General Family Medicine 06/14/20 documented as of this encounter
--- OUTSIDE RECORDS SUMMARY | 2024-06-04 10:39 | XMS_ITS | Encounter Summary ---
Author Organization [employer] Address [address] [facility] [address] 7t [place] [address] Care Team Providers Care Back Tender Cloth Printing Name Role Phone Kalpana Baptiste MD Primary Care Provide r Encounter Details Date Type Department Care Team (Latest Contact Info) Description 06/07/2020 Abstract [facility] CONVERSIONS Dental, Provider, DDS Social History Tobacco Use Types Packs/Day Years [...] Description 06/22/2024 1:00 PM EST Office Visit [facility] OPTOMETRY [address] [place] [address] Beata Holt, OD [address] [place] [address] 08/05/2024 1:00 PM EDT Office Visit [facility] MEDICINE 230 [place] [address] Kalpana Baptiste MD 230 [place] [address] 08/12/2024 11:30 AM EDT Clinical Support [facility] MEDICINE [address] [place] [address] Palma, Amanda, RN documented as of this encounter Visit Diagnoses Not on filedocumented in this encounter Care Teams Back Tender Cloth Printing Relationship Specialty Start Date End Date Kalapna Baptiste MD 230 [place] [address] PCP - General Family Medicine 06/14/20 documented as of this encounter
--- OUTSIDE RECORDS SUMMARY | 2024-06-04 10:39 | XMS_ITS | Encounter Summary ---
Author Organization [employer] Address [address]t [place] [address] Care Team Providers Care Photonic Laboratory Technician Name Role Phone Kalpana Baptiste MD Primary Care Provide r Reason for Visit * Reason Comments Med Refill Encounter Details Date Type Department Care Team ([facility] st Contact Info) Description 05/14/2023 Refill [facility] MEDICINE [address] [place], [place] [phone] Kalpana Baptiste MD 230 [place] [address] Primary osteoarthritis of both knees; Heartburn Social [...] Description 06/22/2024 1:00 PM EST Office Visit [facility] OPTOMETRY [address] [place], [place] [phone] JonathonBeata perkins, OD 230 [place] [address] 08/05/2024 1:00 PM EDT Office Visit [facility] MEDICINE [address] [place] [address] Kalpana Baptiste MD [address] [place] [address] 08/12/2024 11:30 AM EDT Clinical Support [facility] MEDICINE [address] [place] [address] Amanda Waldrop RN documented as of this encounter Visit Diagnoses Diagnosis Primary osteoarthritis of both knees Heartburn documented in this encounter Additional Health Concerns Assessment Noted Time PHQ-9 Depression Total Score: 0 08/22/19 23 10:06 AM EDT documented as of this encounter Care Teams Photonic Laboratory Technician Relationship Specialty Start Date End Date Kalpana Baptiste MD [address] [place] [address] PCP - General Family Medicine 06/14/20 documented as of this encounter
--- OUTSIDE RECORDS SUMMARY | 2024-06-04 10:39 | XMS_ITS | Encounter Summary ---
Author Organization [employer] Address [address] 7[address] [place] [address] Care Team Providers Care Beadworker Name Role Phone Kalpana Baptiste MD Primary Care Provide r Reason for Visit * Reason Onset Date Comments Recommend BLOOD BANK MANAGER Tier 2 05/13/2024 Encounter Details Date Type Department Care Team ([facility] st Contact Info) Description 05/13/2024 Telephone [facility] MEDICINE [address] [place] [address] Amanda Waldrop RN Recommend BLOOD BANK MANAGER Tier 2 Social History Tobacco Use Types Packs/Day Years [...] Encounter - Amanda Waldrop RN - 05/13/2024 7:23 AM EST What BLOOD BANK MANAGER Tier would you like this patient to be? I recommend Tier 2, please let me know if you agree or would rather patient be in another BLOOD BANK MANAGER Tier. Tier 1 = HIGH RISK, Monthly BLOOD BANK MANAGER visits Tier 2 = MODerate RISK, Q3 Month visits Tier 3 = LOW RISK = Q4-6 month visits documented in this encounter Plan of Treatment Upcoming Encounters Date Type Department Care Team (Late st Contact Info) Description 06/22/2024 1:00 PM EST Office Visit [facility] OPTOMETRY [address] [place] [address] Jonathon, Beata, OD [address] [place] [address] 08/05/2024 1:00 PM EDT Office Visit [facility] MEDICINE [address] [place] [address] Kalpana Baptiste MD 230 [place] [address] 08/12/2024 11:30 AM EDT Clinical Support [facility] MEDICINE [address] [place] [address] Palma, Amanda, RN documented as of this encounter Visit Diagnoses Not on filedocumented in this encounter Additional Health Concerns Assessment Noted Time PHQ-9 Depression Total Score: 0 05/06/19 25 2:15 PM EST documented as of this encounter Care Teams Beadworker Relationship Specialty Start Date End Date Kalpana Baptiste MD [address] [place] [address] PCP - General Family Medicine 06/14/20 documented as of this encounter
--- OUTSIDE RECORDS SUMMARY | 2024-06-04 10:39 | XMS_ITS | Encounter Summary ---
Author Organization [facility] Address [address] [place] [address] Care Team Providers Care Emergency Services Professional Name Role Phone Kalpana Baptiste MD Primary Care Provider Reason for Visit * Reason Onset Date Comments BMT appt 05/31/2020 Encounter Details Date Type Department Care Team (Late st Contact Info) Description 05/31/2020 Telephone [facility] Central Scheduling Department [address] [place] [address] Telephone Intake, Staff BMT appt Social History Tobacco Use Types Packs/Day Years Used Date Smoking Tobacco: Former Smokeless Tobacco: Never Comments:: Comments Unknown Sex and Gender Information Value Date Recorded Sex Assigned at Not on file Legal Sex Female 8:19 AM EDT Gender Identity Not on file Sexual Orientation Not on file documented as of this encounter Miscellaneous Notes * Telephone Encounter - Bharati Webb - 05/31/2020 3:03 PM EST Pt of [facility]. Bernal at [facility] Calling to schedule a follow up appt CS unable to book as requested. BM Line not available Please call for appt at [phone] documented in this encounter Plan of Treatment Upcoming Encounters Date Type Department Care Team (Late st Contact Info) Description 08/04/2024 12:00 PM EDT Lab [facility] ACC Draw Site Fifth Floor [address] [place] [address] 08/04/2024 1:00 PM EDT Follow-Up [facility] [address] [place] [address] Vivek Bernal MD PhD [address] [place] [address] documented as of this encounter Visit Diagnoses Not on filedocumented in this encounter Care Teams Emergency Services Professional Relationship Specialty Start Date End Date Kalpana Baptiste MD [address] [place] [address] PCP - General 11/22/20 documented as of this encounter
--- OUTSIDE RECORDS SUMMARY | 2024-06-04 10:39 | XMS_ITS | Encounter Summary ---
Author Organization [employer] Address [address] 7t [place] [address] Care Team Providers Care Grain Oilseed Or Pasture Farm Manager Name Role Phone Kalpana Baptiste MD Primary Care Provide r Reason for Visit * Reason Comments Med Refill Encounter Details Date Type Department Care Team ([facility] st Contact Info) Description 04/08/2023 Refill [facility] MEDICINE [address] [place], [place] [phone] Kalpana Baptiste MD 230 [place] [address] Chronic tension-type headache, not intractable Social History [...] Description 06/22/2024 1:00 PM EST Office Visit [facility] OPTOMETRY [address] [place], [place] [phone] Jonathon, Beata, OD 230 [place] [address] 08/05/2024 1:00 PM EDT Office Visit [facility] MEDICINE [address] [place] [address] Kalpana Baptiste MD [address] [place] [address] 08/12/2024 11:30 AM EDT Clinical Support [facility] MEDICINE [address] [place] [address] Amanda Waldrop RN documented as of this encounter Visit Diagnoses Diagnosis Chronic tension-type headache, not intractable Chronic tension type headache documented in this encounter Additional Health Concerns Assessment Noted Time PHQ-9 Depression Total Score: 0 08/22/19 23 10:06 AM EDT documented as of this encounter Care Teams Grain Oilseed Or Pasture Farm Manager Relationship Specialty Start Date End Date Kalpana Baptiste MD [address] [place], [place] [phone] PCP - General Family Medicine 06/14/20 documented as of this encounter
--- OUTSIDE RECORDS SUMMARY | 2024-06-04 10:39 | XMS_ITS | Encounter Summary ---
Author Organization [employer] Address [address] [facility] [address] [place] [address] Care Team Providers Care Fabric Worker Foreman Name Role Phone Kalpana Baptiste MD Primary Care Provide r Reason for Visit * Reason Comments Med Refill Encounter Details Date Type Department Care Team ([facility] st Contact Info) Description 04/16/2023 Refill [facility] MEDICINE [address] [place], [place] [phone] Kalpana Baptiste MD 230 [place] [address] Chronic tension-type headache, not intractable Social History [...] PM EST Office Visit [facility] OPTOMETRY [address] [place], [place] [phone] Jonathon, Beata, OD 230 [place] [address] 08/05/2024 1:00 PM EDT Office Visit [facility] MEDICINE [address] [place] [address] Kalpana Baptiste MD 230 [place] [address] 08/12/2024 11:30 AM EDT Clinical Support [facility] MEDICINE [address] [place] [address] Amanda Waldrop RN documented as of this encounter Visit Diagnoses Diagnosis Chronic tension-type headache, not intractable Chronic tension type headache documented in this encounter Additional Health Concerns Assessment Noted Time PHQ-9 Depression Total Score: 0 08/22/19 23 10:06 AM EDT documented as of this encounter Care Teams Fabric Worker Foreman Relationship Specialty Start Date End Date Kalpana Baptiste MD [address] [place], [place] [phone] PCP - General Family Medicine 06/14/20 documented as of this encounter
--- OUTSIDE RECORDS SUMMARY | 2024-06-04 10:39 | XMS_ITS | Encounter Summary ---
Author Organization [employer] Address [address] [facility] [address] [place] [address] Care Team Providers Care Marketing Program Manager Name Role Phone Kalpana Baptiste MD Primary Care Provide r Reason for Visit * Reason Onset Date Comments Med Refill 04/30/2023 Encounter Details Date Type Department Care Team ([facility] st Contact Info) Description 04/30/2023 Telephone [facility] MEDICINE [address] [place], [place] [phone] Kalpana Baptiste MD 230 [place] [address] Med Refill Social History Tobacco Use Types [...] encounter Miscellaneous Notes * Telephone Encounter - Shannan Hutchins RN - 04/30/2023 11:58 AM EST Mark otoole, pt. Last picked up 25 day supply 04/18/23, will be due 05/13/23. Will plan to pend Friday05/12/23 * Telephone Encounter - Morteza Brower - 04/30/2023 11:47 AM EST Tc from pt requesting a refill for Tramadol 50 mg documented in this encounter Plan of Treatment Upcoming Encounters Date Type Department Care Team (Late st Contact Info) Description 06/22/2024 1:00 PM EST Office Visit [facility] OPTOMETRY [address] [place] [address] Beata Holt, OD [address] [place] [address] 08/05/2024 1:00 PM EDT Office Visit [facility] MEDICINE [address] [place] [address] Kalpana Baptiste MD [address] [place] [address] 08/12/2024 11:30 AM EDT Clinical Support [facility] MEDICINE [address] [place], [place] [phone] Amanda Waldrop RN documented as of this encounter Visit Diagnoses Not on filedocumented in this encounter Additional Health Concerns Assessment Noted Time PHQ-9 Depression Total Score: 0 08/22/19 23 10:06 AM EDT documented as of this encounter Care Teams Marketing Program Manager Relationship Specialty Start Date End Date Kalpana Baptiste MD [address] [place], [place] [phone] PCP - General Family Medicine 06/14/20 documented as of this encounter
--- OUTSIDE RECORDS SUMMARY | 2024-06-04 10:39 | XMS_ITS | Encounter Summary ---
Author Organization [employer] Address [address] [facility] 7[address] [place] [address] Care Team Providers Care Cell Technician Name Role Phone Kalpana Baptiste MD Primary Care Provide r Reason for Visit * Reason Comments Med Refill Encounter Details Date Type Department Care Team ([facility] st Contact Info) Description 03/07/2023 Refill [facility] MEDICINE [address] [place], [place] [phone] Kalpana Baptiste MD [address] [place] [address] Primary osteoarthritis of both knees; Chronic tension-type headache, not intractable Social History [...] Description 06/22/2024 1:00 PM EST Office Visit [facility] OPTOMETRY [address] [place] [address] Jonathon, Beata, OD 230 [place] [address] 08/05/2024 1:00 PM EDT Office Visit [facility] MEDICINE [address] [place] [address] Kalpana Baptiste MD [address] [place] [address] 08/12/2024 11:30 AM EDT Clinical Support [facility] MEDICINE [address] [place] [phone] mAanda Waldrop RN documented as of this encounter Visit Diagnoses Diagnosis Primary osteoarthritis of both knees Chronic tension-type headache, not intractable Chronic tension type headache documented in this encounter Additional Health Concerns Assessment Noted Time PHQ-9 Depression Total Score: 0 08/22/19 23 10:06 AM EDT documented as of this encounter Care Teams Cell Technician Relationship Specialty Start Date End Date Kalpana Baptiste MD [address] [place] [phone] PCP - General Family Medicine 06/14/20 documented as of this encounter
--- OUTSIDE RECORDS SUMMARY | 2024-06-04 10:39 | XMS_ITS | Encounter Summary ---
Author Organization [employer] Address [address] [facility] [address] [place] [address] Care Team Providers Care Employee Benefits Specialist Name Role Phone Kalpana Baptiste MD Primary Care Provide r Reason for Visit * Reason Comments Med Refill Encounter Details Date Type Department Care Team ([facility] st Contact Info) Description 04/21/2023 Refill [facility] MEDICINE [address] [place], [place] [phone] Kalpana Baptiste MD [address] [place] [address] Primary osteoarthritis of both knees Social History [...] [facility] OPTOMETRY [address] [place] [address] JonathonBeata perkins, OD 230 [place] [address] 08/05/2024 1:00 PM EDT Office Visit [facility] MEDICINE [address] [place] [address] Kalpana Baptiste MD [address] [place] [address] 08/12/2024 11:30 AM EDT Clinical Support [facility] [address] [place] [address] Amanda Waldrop RN documented as of this encounter Visit Diagnoses Diagnosis Primary osteoarthritis of both knees documented in this encounter Additional Health Concerns Assessment Noted Time PHQ-9 Depression Total Score: 0 08/22/19 23 10:06 AM EDT documented as of this encounter Care Teams Employee Benefits Specialist Relationship Specialty Start Date End Date Kalpana Baptiste MD [address] [place] [phone] PCP - General Family Medicine 06/14/20 documented as of this encounter
--- OUTSIDE RECORDS SUMMARY | 2024-06-04 10:39 | XMS_ITS | Encounter Summary ---
Author Organization [employer] Address [address] [facility] [address] 7[address] [place] [address] Care Team Providers Care Chemical Tester Name Role Phone Kalpana Baptiste MD Primary Care Provide r Reason for Visit * Reason Comments Med Refill Encounter Details Date Type Department Care Team ([facility] Contact Info) Description 06/10/2022 Refill [facility] MED & PEDS [address] [place], [place] [phone] Neida Garrett DO 230 [place] [address] Social History Tobacco Use Types Packs/Day Years [...] Upcoming Encounters Date Type Department Care Team ([facility] Contact Info) Description 06/22/2024 1:00 PM EST Office Visit [facility] OPTOMETRY [address] [place] [address] Beata Holt, OD [address] [place] [address] 08/05/2024 1:00 PM EDT Office Visit [address] [address] Kalpana Baptiste MD [address] [place] [address] 08/12/2024 11:30 AM EDT Clinical Support [address] [address] Amanda Waldrop, NEGAR documented as of this encounter Visit Diagnoses Not on filedocumented in this encounter Care Teams Chemical Tester Relationship Specialty Start Date End Date Kalpana Baptiste MD [address] [place] [phone] PCP - General Family Medicine 06/14/20 documented as of this encounter
--- OUTSIDE RECORDS SUMMARY | 2024-06-04 10:39 | XMS_ITS | Encounter Summary ---
Author Organization [employer] Address [address] [facility] [address] [place] [address] Care Team Providers Care Employee Relations Administrator Name Role Phone Kalpana Baptiste MD Primary Care Provide r Encounter Details Date Type Department Care Team ([facility] Contact Info) Description 05/17/2022 Orders Only [facility] MEDICINE [address] [place], [place] [phone] Marilyn Corral MD 230 [place] [address] Acute idiopathic gout involving toe of right foot Social History Tobacco Use Types Packs/Day Years [...] Upcoming Encounters Date Type Department Care Team ([facility] Contact Info) Description 06/22/2024 1:00 PM EST Office Visit [facility] OPTOMETRY [address] [place], [place] [phone] Beata Holt, OD [address] [place] [address] 08/05/2024 1:00 PM EDT Office Visit [address] [phone] Kalpana Baptiste MD [address] [place] [address] 08/12/2024 11:30 AM EDT Clinical Support [address] [phone] Amanda Waldrop RN documented as of this encounter Visit Diagnoses Diagnosis Acute idiopathic gout involving toe of right foot documented in this encounter Care Teams Employee Relations Administrator Relationship Specialty Start Date End Date Kalpana Baptiste MD [address] [place] [phone] PCP - General Family Medicine 06/14/20 documented as of this encounter
--- OUTSIDE RECORDS SUMMARY | 2024-06-04 10:39 | XMS_ITS | Encounter Summary ---
Author Organization [employer] Address [address] [facility] [address] [place] [address] Care Team Providers Care Group Home Worker Name Role Phone Kalpana Baptiste MD Primary Care Provide r Reason for Referral * Consultation (Routine) - Authorized Specialty Diagnoses / Procedures Referred By Contac t Referred To Contact Nephrology Diagnoses Primary hypertension CKD stage 3 due to type 2 diabetes mellitus ([facility]) Kalpana Baptiste MD [address] [place] [address] Phone: tel: fax: [facility] Nephrology [address] [place] [address] Drive [address] [place], [place] Phone: tel: fax: Referral ID Status Reason Start Date Expiration Date Visits Requested Visits Authorized [id number] Authorized Specialty Services Required 05/06/2024 05/06/2025 6 6 * Imaging (Routine) - Authorized Specialty Diagnoses / Procedures Referred By Contac t Referred To Contact Radiology Diagnoses Elevated LFTs Procedures US Abdomen Complete Kalpana Baptiste MD [address] [place] [address] Phone: tel: fax: [facility] [address] [place], [place] Phone: tel: fax: Referral ID Status Reason Start Date Expiration Date V isits Requested Visits Authorized [id number] Authorized 05/06/2024 05/06/2025 1 1 Reason for Visit * Reason Comments Follow-up Encounter Details Date Type Department Care Team (Latest Contact Info) Description 05/06/2024 2:30 PM EST Office Visit [facility] MEDICINE [address] [place] [address] Kalpana Baptiste MD [address] [place], [place] [phone] Primary hypertension (Primary Dx); CKD stage 3 due to type 2 diabetes mellitus (CMS/HCC); Elevated LFTs; Primary osteoarthritis of both knees Social History [...] AM EDT documented as of this encounter Last Filed Vital Signs Vital Sign Reading [...] Mass Index 37.31 05/06/2024 1:59 PM EST documented in this encounter Progress Notes * Kalpana Steele MD - 05/06/2024 2:30 PM EST SUBJECTIVE: Santa Kate is a 59 y.o. year old female who presents for Chronic Disease Management . Acute Concerns: Patient reports increase pain of both knees, hips, she run out of her pain meds and her roller walker broke Patient reports her blood pressure has being high at home Lbas where reviewed with patient EGFr 38.9 and LFTS are elevated Social History Social History Narrative Not on file Patient Active Problem List Diagnosis Abdominal pain, epigastric Acute pharyngitis Allergic rhinitis Anemia Anxiety disorder Asthma Chronic gouty arthritis Chronic zkiyt-wuqkch-armv disease (CMS/HCC) Low back pain Chronic myeloproliferative disease (CMS/HCC) CKD stage 3 due to type 2 diabetes mellitus (CMS/HCC) Cobalamin deficiency Cough Depressive disorder Diabetic nephropathy (CMS/HCC) Dysuria Status post bone marrow transplant (CMS/HCC) Headache Hyperlipidemia History of total hysterectomy Indigestion Kidney stone Major depressive disorder, single episode Moderate persistent asthma Myelofibrosis (CMS/HCC) Obesity Obstructive sleep apnea syndrome Osteoarthritis of both knees Hypertensive disorder Primary osteoarthritis of both knees Proteinuria Splenomegaly Steatosis of liver Type 2 diabetes mellitus (CMS/HCC) Vitamin D deficiency Elevated blood pressure reading Dental calculus Periodontal disease Dental caries Health care maintenance Abdominal bloating Acalculous cholecystitis Acute kidney failure, unspecified (CMS/HCC) Alopecia Biliary dyskinesia Contusion of foot, right Diabetic neuropathy associated with type 2 diabetes mellitus (CMS/HCC) Dyslipidemia Dyspnea on exertion Fall GERD (gastroesophageal reflux disease) Heel spur History of gastritis Meningioma (CMS/HCC) Osteoarthritis of wrist Pain of foot UTI (urinary tract infection) Primary insomnia Heartburn Preop examination Colon cancer screening Chronic gout of multiple sites Dry eyes Acute otitis media Diarrhea Large granular lymphocytic leukemia (CMS/HCC) Cholecystitis without calculus Contusion of right foot Neuropathy due to type 2 diabetes mellitus (CMS/HCC) Gastroesophageal reflux disease Calcaneal spur Acute nontraumatic kidney injury (CMS/HCC) Urinary tract infectious disease Epigastric pain Recurrent otitis media of left ear Tendinitis of hand Right wrist pain Left otitis externa Urinary incontinence, mixed Elevated LFTs Family History Problem Relation Name Age of Onset Diabetes Mother Kidney disease Mother Hypertension Mother Glaucoma Mother Heart disease Mother Coronary artery disease Father Breast cancer Sister 49 Diabetes Sister Diabetes Brother Breast cancer Mother's Sister Review of Systems Constitutional: Negative. HENT: Negative. Respiratory: Negative. Cardiovascular: Negative. Musculoskeletal: Positive for arthralgias and myalgias. OBJECTIVE: Vitals: 05/06/24 1359 BP: (!) 165/90 BP Location: Left arm Patient Position: Sitting BP Cuff Size: Large adult Pulse: 71 Resp: 20 Temp: 96.8 ??F (36 ??C) TempSrc: Temporal SpO2: 99% Weight: 238 lb 3.2 oz (108 kg) Height: 5' 7 (1.702 m) Physical Exam Constitutional: Appearance: Normal appearance. Cardiovascular: Rate and Rhythm: Normal rate and regular rhythm. Pulmonary: Effort: Pulmonary effort is normal. Breath sounds: Normal breath sounds. Abdominal: General: Abdomen is flat. Palpations: Abdomen is soft. Musculoskeletal: Right lower leg: No edema. Left lower leg: No edema. Neurological: Mental Status: She is alert. Follow Up: Follow up in about 3 months (around 08/04/2024) for chronic conditions . Current Outpatient Medications on File Prior to Visit Medication Sig Dispense Refill Acetaminophen Extra Strength 500 MG tablet TAKE ONE TO TWO TABLETS BY MOUTH THREE TIMES A DAY NEEDED . MAXIMUM DAILY DOSE OF 6 TABLETS / 24 HOURS. (VIAL) 100 tablet 1 albuterol (2.5 MG/3ML) 0.083% nebulizer solution INHALE THE CONTENTS OF 1 VIAL VIA NEBULIZER THREE TIMES A DAY DIRECTED (BULK) 75 mL 5 Alcohol Swabs (Easy Touch Alcohol Prep Medium) 70 % pads USE 1 SWAB ONCE DAILY (BULK) 100 each 11 aluminum-magnesium hydroxide-simethicone (Maalox Max) 400-400-40 MG/5ML suspension Take by mouth. atorvastatin (Lipitor) 20 MG tablet Take 1 tablet by mouth. azithromycin (Zithromax) 250 MG tablet Take 2 tabs PO daily x 1d then 1 tab PO daily on D2 to D5 6 tablet 0 Blood Glucose Monitoring Suppl (FreeStyle Yermo Lite) w/Device kit Use to test blood sugar 2 times daily 1 kit 0 Blood Glucose Monitoring Suppl (FreeStyle Yermo Lite) w/Device kit Use to test blood sugar 2 times daily 1 kit 0 canagliflozin (Invokana) 100 MG Take by mouth. cefuroxime (Ceftin) 500 MG tablet Take 500 mg by mouth 2 times daily. cholecalciferol (Vitamin D-3) 25 MCG (1000 UT) capsule TAKE 1 CAPSULE BY MOUTH ONCE A DAY (VIAL) 30capsule 11 citalopram (CeleXA) 10 MG tablet Take 10 mg by mouth in the morning. colchicine 0.6 MG tablet TAKE 2 TABLETS ORALLY, THEN 1 HOUR LATER TAKE 1 TABLET ORALLY,TAKE THIS ON05/09/2022 colchicine 0.6 MG tablet TAKE ONE TABLET BY MOUTH EVERY MORNING (VIAL) 28 tablet 11 cyanocobalamin (Vitamin B-12) 1000 MCG/ML injection Inject 1 mL into the shoulder, thigh, or buttocks. dextran 70-hypromellose (artificial tears) 0.1-0.3 % ophthalmic solution Administer 1 drop into both eyes if needed in the morning, at noon, and at bedtime for dry eyes. 30 mL 1 dextran 70-hypromellose PF (GenTeal Tears Moderate PF) 0.1-0.3 % ophthalmic solution INSTILL ONE DROP IN EACH EYE THREE TIMES A DAY (MORNING, NOON, AND BEDTIME) NEEDED (BULK) 36 each 1 Diclofenac Sodium 1 % gel Apply topically every 12 (twelve) hours. dicyclomine (Bentyl) 20 MG tablet TAKE 1 TABLET BY MOUTH FOUR TIMES A DAY NEEDED ABDOMINAL PAIN famotidine (Pepcid) 20 MG tablet TAKE ONE TABLET BY MOUTH EVERY DAY (VIAL) 30 tablet 11 ferrous sulfate 325 (65 Fe) MG tablet Take by mouth at bed time. fluticasone (Flonase) 50 MCG/ACT nasal spray USE 2 SPRAYS IN EACH NOSTRIL EVERY MORNING NEEDED (BULK) 48 g 3 fluticasone (Flovent HFA) 110 MCG/ACT inhaler Inhale 1 puff every 12 (twelve) hours. folic acid (Folvite) 1 MG tablet Take 1 mg by mouth. FreeStyle lancets 1 each by Other route 2 times daily. 100 each 11 FREESTYLE LITE test strip USE TO TEST BLOOD SUGAR ONCE DAILY AND DIRECTED (BULK) 50 strip 11 ketotifen (Alaway) 0.025 % ophthalmic solution Administer 1 drop into affected eye(s) every 12 (twelve) hours. lidocaine (Lidoderm) 5 % patch Place 1 patch on the skin at bed time. loperamide (Imodium) 2 MG capsule TAKE 1 CAPSULE BY MOUTH EVERY 6 HOURS NEEDED FOR LOOSE STOOL loratadine (Claritin) 10 MG tablet TAKE ONE TABLET BY MOUTH EVERY MORNING (VIAL) 30 tablet 11 melatonin 3 MG tablet TAKE 1 TABLET BY MOUTH EVERY DAY AT BEDTIME FOR SLEEP metFORMIN (Glucophage) 500 MG tablet TAKE ONE TABLET BY MOUTH TWICE A DAY WITH MEALS 56 tablet 11 mirtazapine (Remeron) 15 MG tablet Take 1 tablet (15 mg) by mouth at bedtime for 15 doses. 15 tablet 0 naloxone (Narcan) 4 mg/0.1 mL nasal spray ADMINISTER 1 SPRAY INTO AFFECTED NOSTRIL NEEDED FOR OPIOID REVERSAL (BULK) 2 each 2 Cbyicuqn-Xhawxstbh-WY 1 % solution Administer 3 drops into affected ear(s) 4 times daily. 10 mL 0 ondansetron ODT (Zofran-ODT) 4 MG disintegrating tablet DISSOLVE 1 TABLET BY MOUTH EVERY 8 HOURS ASNEEDED FOR NAUSEA AND VOMITING pantoprazole (ProtoNix) 40 MG EC tablet TAKE ONE TABLET BY MOUTH EVERY DAY (VIAL) 90 tablet 3 polyvinyl alcohol (Liquifilm Tears) 1.4 % ophthalmic solution one drop in each eye at least 2 timesa day, more if burning 15 mL 1 pravastatin (Pravachol) 40 MG tablet TAKE ONE TABLET BY MOUTH AT BEDTIME (VIAL) 30 tablet 11 predniSONE (Deltasone) 20 MG tablet 2 tablets PO x first day then 1 tab po/d x 4d 6 tablet 0 ruxolitinib (Jakafi) 5 MG chemo tablet Take 5 mg by mouth. sennosides (Senokot) 8.6 MG tablet Take 1 tablet by mouth. SITagliptin (Januvia) 50 MG tablet TAKE ONE TABLET BY MOUTH EVERY DAY (VIAL) 90 tablet 3 sucralfate (Carafate) 1 g tablet TAKE ONE TABLET BY MOUTH THREE TIMES A DAY, BEFORE BREAKFAST, BEFORE LUNCH, AND BEFORE DINNER (VIAL) 90 tablet 2 tamsulosin (Flomax) 0.4 MG 24 hr capsule Take 1 capsule by mouth at bed time. terazosin (Hytrin) 1 MG capsule Take 1 mg by mouth at bedtime. tolterodine LA (Detrol LA) 4 MG 24 hr capsule Take 1 capsule (4 mg) by mouth in the morning. 90 capsule 1 Ventolin HFA 108 (90 Base) MCG/ACT inhaler INHALE TWO PUFFS BY MOUTH EVERY 6 HOURS NEEDED FOR SHORTNESS OF BREATH OR WHEEZING (BULK) 18 g 11 [DISCONTINUED] amLODIPine (Norvasc) 10 MG tablet TAKE ONE TABLET BY MOUTH ONCE DAILY (VIAL) 30 tablet 8 [DISCONTINUED] amLODIPine (Norvasc) 2.5 MG tablet Take 4 tablets (10 mg) by mouth in the morning. 90 tablet 1 [DISCONTINUED] hydroCHLOROthiazide 12.5 MG tablet Take 1 tablet (12.5 mg) by mouth Once per day. 30tablet 11 [DISCONTINUED] lisinopril 5 MG tablet Take 5 mg by mouth. [DISCONTINUED] traMADol (Ultram) 50 MG tablet Take 1 tablet (50 mg) by mouth every 6 (six) hours ifneeded for severe pain for up to 25 days. Do not start before April 15, 2024. 100 tablet 0 No current facility-administered medications on file prior to visit. Problem List Items Addressed This Visit Hypertensive disorder - Primary - I will add losartan 25mg daily, [...] pain, palpitations, SOB, syncope, or sudden changes inmental status. - Do not change or discontinue current prescriptions without first consulting health care provider Relevant Medications amLODIPine (Norvasc) 10 MG tablet losartan (Cozaar) 25 MG tablet hydroCHLOROthiazide 12.5 MG tablet Other Relevant Orders Referral to Nephrology CKD stage 3 due to type 2 diabetes mellitus ([facility]) Relevant Orders Referral to Nephrology Elevated LFTs Relevant Orders Hepatitis A,B,C Profile US Abdomen Complete Primary osteoarthritis of both knees Tramadol prescription renewed, she will be call for her PEST CONTROL APPLICATOR appointment Relevant Medications traMADol (Ultram) 50 MG tablet documented in this encounter Miscellaneous Notes * Assessment & Plan Note - Kalpana Steele MD - 05/06/2024 3:05 PM EST Associated Problem(s): Primary osteoarthritis of both knees Tramadol prescription renewed, she will be call for her PEST CONTROL APPLICATOR appointment * Assessment & Plan Note - Kalpana Steele MD - 05/06/2024 3:04 PM EST Associated Problem(s): Hypertensive disorder - I will add losartan 25mg daily, [...] pain, palpitations, SOB, syncope, or sudden changes inmental status. - Do not change or discontinue current prescriptions without first consulting health care provider documented in this encounter Plan of Treatment Upcoming Encounters Date Type Department Care Team (Late st Contact Info) Description 06/22/2024 1:00 PM EST Office Visit [facility] OPTOMETRY [address] [place] [address] Jonathon, Beata, OD [address] [place] [address] 08/05/2024 1:00 PM EDT Office Visit [facility] MEDICINE [address] [place] [address] Kalpana Baptiste MD [address] [place] [address] 08/12/2024 11:30 AM EDT Clinical Support [facility] MEDICINE [address] [place] [address] Amanda Waldrop RN Scheduled Orders Name Type Priority Associated Diagnoses Orde r Schedule Hepatitis A,B,C Profile Lab Routine Elevated LFTs Expected: 05/06/2024, Expires: 05/06/2025 US Abdomen Complete Imaging Routine Elevated LFTs Expected: 05/06/2024, Expires: 05/06/2025 Scheduled Referrals Name Type Priority Associated Diagnoses Order Schedule Referral to Nephrology Outpatient Referral Routine Primary hypertension CKD stage 3 due to type 2 diabetes mellitus (CMS/HCC) Expected: 05/06/2024 (Approximate), Expires: 05/06/2025 documented as of this encounter Visit Diagnoses Diagnosis Primary hypertension- Primary Unspecified essential hypertension CKD stage 3 due to type 2 diabetes mellitus (CMS/HCC) Elevated LFTs Other abnormal blood chemistry Primary osteoarthritis of both knees documented in this encounter Additional Health Concerns Assessment Noted Time PHQ-9 Depression Total Score: 0 05/06/19 25 2:15 PM EST documented as of this encounter Care Teams Group Home Worker Relationship Specialty Start Date End Date Kalpana Baptiste MD [address] [place], [place] [phone] PCP - General Family Medicine 06/14/20 documented as of this encounter
--- OUTSIDE RECORDS SUMMARY | 2024-06-04 10:39 | XMS_ITS | Encounter Summary ---
Author Organization [employer] Address [address] [place] [address] Care Team Providers Care Inside Contractor Sales Name Role Phone Kalpana Baptiste MD Primary Care Provide r Reason for Visit * Reason Comments Med Refill Encounter Details Date Type Department Care Team ([facility] st Contact Info) Description 05/15/2023 Refill [facility] [address] [place], [place] [phone] Kalpana Baptiste MD [address] [place] [address] Primary osteoarthritis of both knees; Heartburn Social [...] [facility] [address] [place], [place] [phone] JonathonBeata perkins, OD [address] [place] [address] 08/05/2024 1:00 PM EDT Office Visit [facility] [address] [place] [address] Kalpana Baptiste MD [address] [place] [address] 08/12/2024 11:30 AM EDT Clinical Support [facility] [address] [place] [address] Amanda Waldrop RN documented as of this encounter Visit Diagnoses Diagnosis Primary osteoarthritis of both knees Heartburn documented in this encounter Additional Health Concerns Assessment Noted Time PHQ-9 Depression Total Score: 0 08/22/19 23 10:06 AM EDT documented as of this encounter Care Teams Inside Contractor Sales Relationship Specialty Start Date End Date Kalpana Baptiste MD [address] [place] [id number] PCP - General Family Medicine 06/14/20 documented as of this encounter
--- OUTSIDE RECORDS SUMMARY | 2024-06-04 10:39 | XMS_ITS | Encounter Summary ---
Author Organization [facility] Address [address] [place] [address] Care Team Providers Care Senior Underwriter Name Role Phone Kalpana Baptiste MD Primary Care Provide r Reason for Visit * Reason Comments Abdominal Pain PT ARRIVES VIA EMS F ROM HOME, STATES SINCE NOON ABD PAIN, VOMITED X 3 AND DIARRHEA AND HEADACHE , NO CALL TO TIFFANY GARCIA WITH WALKER W/SEAT AT BASELINE,PT USUALLY FREQ [facility], ALSO ADDS DARK URINE TODAY, PT DENIES SOB, DENIES CHEST PAIN, * Auth/Cert (Routine) Specialty Diagnoses / Procedures Referred By Angelic nair Referred To Contact Diagnoses JUSTINO (acute kidney injury) ([facility]) Procedures [place] [facility] IP/OBS CARE INITIAL MODERATE LEVEL PER DAY . Heladio Sharma MD [address] [place] [address] [facility] Emergency [address] [place] [address] Referral ID Status Reason Start Date Expiration Date Visits Re quested Visits Authorized [id number] 1 1 Encounter Details Date Type Department Care Team (Latest Contact Info) Description 05/17/2024 11:26 PM EST - 05/20/2024 3:44 PM EST Hospital Encounter [facility] Intermediate Care Unit [address] [place] [address] Clyde Retana MD [address] [place] [id number] Heladio Sharma MD [address] [place] [address] Randee Slater MD [address] [place] [id number] Generalized abdominal pain (Primary Dx); Acute kidney injury (CMS/HCC) Discharge Disposition: Home or Self Care Social History Tobacco Use Types Packs/Day Years [...] file Not on file Not on file documented as of this encounter Last Filed [...] Mass Index 37.28 05/17/2024 11:51 PM EST documented in this encounter Discharge Summaries * ODALYS Gómez - 05/20/2024 1:07 PM EST Images from the original note were not included. [place] DISCHARGE SUMMARY Patient Information Santa Kate : 1965 [59 y.o.] Admitting Provider Heladio Sharma MD Discharge Provider ODALYS Gómez, Randee Slater MD Primary Care Physician Kalpana Steele MD Admission Date 05/17/2024 Discharge Date 05/20/2024 Discharge Destination: Home Code Status at Discharge: Full Code - Default Hospital Course Summary Abdominal pain Left non obstructing kidney stone? 59-year-old female with a history of diabetes, COPD/asthma, hypertension presented to ED for abdominal pain. She reported nausea, vomiting, diarrhea. Denied fever. Per patient, she was evaluated 3 weeks ago for similar symptoms at [facility]. At admission, her temperature was high 38.2. The rest of vital signs stable. CBC was negative for leukocytosis. CMP showed increased creatinine 2.57. Lactate level was high 2.7. Respiratory virus panel was negative. UA was negative. CT abdomen showed left kidney with nonobstructive 3 mm calculus. She was managed with IV fluid, pain medication. Her symptoms were improving. Patient was stable during her observation. She was able to tolerate oral intake. Patient discharged and was recommend to follow-up with PCP. JUSTINO Prerenal? Creatinine on admission high 2.57. His hydrochlorothiazide, losartan were held. She was treated with IV fluid. Her creatinine level was improving and was 1.75 at discharge. Patient was advised to continue to hold hydrochlorothiazide and losartan and follow-up with facility assistant and PCP. Hypomagnesemia Magnesium low on admission 1.4 and was replaced. Type II diabetes mellitus On Diet, SSI. Hypertension While in the hospital, her hydrochlorothiazide, losartan were held. Amlodipine dose was increased. As above, patient was advised to hold hydrochlorothiazide and losartan at discharge and follow-up with PCP/facility assistant for blood pressure management. Myelofibrosis Status post marrow transplant 10 years ago. Followed by [facility] oncology. Type II obesity BMI 37.28. Follow-up with PCP. Procedures done: CT Abdomen Pelvis wo Contrast Final Result Nonobstructive 3 mm calculus in the left midpole kidney. This document has been electronically signed by: Waqar Candelaria MD on 05/18/2024 03:16:27 Condition upon discharge Visit Vitals BP 134/73 (BP Location: Right arm, Patient Position: Lying) Pulse 70 Temp 36.4 ??C (97.5 ??F) (Temporal) Resp 18 Temp (24hrs), Av.7 ??C (98 ??F), Min:36.4 ??C (97.5 ??F), Max:37.1 ??C (98.8 ??F) Body mass index is 37.28 kg/m??. No results found for: PTWT , PTHT GEN: Alert, oriented. No distress. HEENT: Atraumatic, symmetric, PERRLA. Neck: Supple, nontender, no range of motion limitation. Lungs: Clear, no accessory muscle use. Heart: Regular, no murmur. Abdomen: Not distended, soft, nontender. Bowel sounds present. Diffuse abdominal tenderness, mostly left flank tenderness. No CVA tenderness. Neuro: Alert, oriented. Cranial nerves II to XII grossly intact. No facial droop. No motor deficit,no sensory deficit. Psych: Cooperative, calm. This note was written using [employer] speech recognition software which is prone to typographical errors. If questions occur please do not hesitate to call this provider. Follow-Up Instructions and Recommendations Primary care provider (PCP) Kalpana Steele MD [address] [place] [id number] Discharge Procedure Orders Primary care provider (PCP) There are no outpatient Patient Instructions on file for this admission. Discharge Medications Your medication list START taking these medications Instructions Last Dose Given Next Dose Due oxyCODONE 5 mg immediate release tablet Commonly known as: ROXICODONE Take 1 tablet (5 mg total) by mouth 3 (three) times a day if needed for severe pain. Max Daily Amount: 15 mg CHANGE how you take these medications Instructions Last Dose Given Next Dose Due amLODIPine 10 mg tablet Commonly known as: NORVASC What changed: medication strength [place] 1 tableta (10 mg en total) por v??a oral 1 (rosario) vez al d??a. (Take 1 tablet (10 mg total) by mouth 1 (one) time each day.) fluticasone propionate 50 mcg/actuation nasal spray Commonly known as: FLONASE What changed: how much to take Administer 2 sprays into each nostril 1 (one) time each day. Shake gently. Before first use, prime pump. After use, clean tip and replace cap. CONTINUE taking these medications Instructions Last Dose Given Next Dose Due albuterol 2.5 mg /3 mL (0.083 %) nebulizer solution Take 3 mL (2.5 mg total) by nebulization every 8 (eight) hours if needed for wheezing. albuterol HFA 90 mcg/actuation inhaler Commonly known as: PROAIR HFA ; PROVENTIL HFA ; VENTOLIN HFA Inhale 2 puffs by mouth every 6 (six) hours if needed for wheezing. colchicine 0.6 mg capsule capsule Commonly known as: MITIGARE Take 1 capsule (0.6 mg total) by mouth 1 (one) time each day in the morning. famotidine 20 mg tablet Commonly known as: PEPCID [place] 1 tableta (20 mg en total) por v??a oral 1 (rosario) vez al d??a. (Take 1 tablet (20 mg total) by mouth 1 (one) time each day.) loratadine 10 mg capsule Take 10 mg by mouth. metFORMIN 500 mg tablet Commonly known as: GLUCOPHAGE [place] 1 tableta (500 mg en total) por v??a oral 1 (rosario) vez al d??a con el desayuno. (Take 1 tablet (500 mg total) by mouth 1 (one) time each day with breakfast.) naloxone 4 mg/actuation nasal spray KIT (Take home med ONLY) Commonly known as: NARCAN Administer 1 spray (4 mg total) into affected nostril(s) See administration instructions. pantoprazole 40 mg EC tablet Commonly known as: PROTONIX [place] 1 tableta (40 mg en total) por v??a oral 1 (rosario) vez al d??a antes del desayuno. (Take 1 tablet (40 mg total) by mouth 1 (one) time each day before breakfast.) pravastatin 40 mg tablet Commonly known as: PRAVACHOL [place] rosario tableta (40 mg en total) por v??a oral antes de acostarse. (Take 1 tablet (40 mg total) by mouth at bedtime.) senna 8.6 mg tablet Commonly known as: SENOKOT Take 1 tablet (8.6 mg total) by mouth 1 (one) time each day. SITagliptin phosphate 50 mg tablet Commonly known as: JANUVIA [place] 1 tableta (50 mg en total) por v??a oral 1 (rosario) vez al d??a. (Take 1 tablet (50 mg total) by mouth 1 (one) time each day.) sucralfate 1 gram tablet Commonly known as: CARAFATE Take by mouth 3 (three) times a day. STOP taking these medications hydroCHLOROthiazide 12.5 mg tablet losartan 25 mg tablet Commonly known as: COZAAR traMADoL 50 mg tablet Commonly known as: ULTRAM Where to Get Your Medications These medications were sent to [facility]/pharmacy #[id number] [facility] [address] [address] Hours: 24-hours amLODIPine 10 mg tablet fluticasone propionate 50 mcg/actuation nasal spray oxyCODONE 5 mg immediate release tablet Case discussed with Dr Slater Time spent: 60 minutes. Associated attestation - Randee Slater MD - 05/20/2024 3:22 PM EST This is a split/shared visit with ODALYS Gómez. I personally performed the medical decision making (MDM) for the care of this patient on 05/20/24 as documented below Patient seen and discussed with ODALYS Sanchez and agree with the discharge summary. More than 50% of the substantiative time was spent reviewing the chart, discussing the discharge summary with the PA and seeing the patient directly Randee Slater MD 05/20/24 3:21 PM EST documented in this encounter Discharge Instructions * Discharge Instructions* ODALYS Gómez - 05/20/2024 9:53 AM EST Increase water intake Hold Losartan and Hydrochlorothiazide. Follow up with PCP and facility assistant * Attachments The following attachments cannot be sent through Care Everywhere. * Acute Kidney Injury ([place]) documented in this encounter Medications at Time of Discharge Medication Sig Dispensed Refills Start Date End Date amLODIPine (NORVASC) 10 mg tablet Take 1 tablet (10 mg total) by mouth 1 (one) time each day. 30 each 05/20/2024 06/19/2024 fluticasone propionate (FLONASE) 50 mcg/actuation nasal spray Administer 2 sprays into each nostril 1 (one) time each day. Shake gently. Before first use, prime pump. After use, clean tip and replace cap. 16 g 11 05/20/2024 oxyCODONE (ROXICODONE) 5 mg immediate release tablet Take 1 tablet (5 mg total) by mouth 3 (three) times a day if needed for severe pain. Max Daily Amount: 15 mg 6 tablet 05/20/2024 albuterol 2.5 mg /3 mL (0.083 %) nebulizer solution Take 3 mL (2.5 mg total) by nebulization every 8 (eight) hours if needed for wheezing. albuterol HFA (PROAIR HFA ; PROVENTIL HFA ; VENTOLIN HFA) 90 mcg/actuation inhaler Inhale 2 puffs by mouth every 6 (six) hours if needed for wheezing. colchicine (MITIGARE) 0.6 mg capsule capsule Take 1 capsule (0.6 mg total) by mouth 1 (one) time each day in the morning. famotidine (PEPCID) 20 mg tablet Take 1 tablet (20 mg total) by mouth 1 (one) time each day. loratadine 10 mg capsule Take 10 mg by mouth. metFORMIN (GLUCOPHAGE) 500 mg tabletIndications:ty pe 2 diabetes mellitus Take 1 tablet (500 mg total) by mouth 1 (one) time each day with breakfast. naloxone (NARCAN) 4 mg/actuation nasal spray KIT (Take home med ONLY) Administer 1 spray (4 mg total) into affected nostril(s) See administration instructions. pantoprazole (PROTONIX) 40 mg EC tablet Take 1 tablet (40 mg total) by mouth 1 (one) time each day before breakfast. pravastatin (PRAVACHOL) 40 mg tablet Take 1 tablet (40 mg total) by mouth at bedtime. senna (SENOKOT) 8.6 mg tablet Take 1 tablet (8.6 mg total) by mouth 1 (one) time each day. SITagliptin phosphate (JANUVIA) 50 mg tablet Take 1 tablet (50 mg total) by mouth 1 (one) time each day. sucralfate (CARAFATE) 1 gram tablet Take by mouth 3 (three) times a day. documented as of this encounter Ordered Prescriptions Prescription Sig Dispensed Refills Start Date End Da te fluticasone propionate (FLONASE) 50 mcg/actuation nasal spray Administer 2 sprays into each nostril 1 (one) time each day. Shake gently. Before first use, prime pump. After use, clean tip and replace cap. 16 g 11 05/20/2024 oxyCODONE (ROXICODONE) 5 mg immediate release tablet Take 1 tablet (5 mg total) by mouth 3 (three) times a day if needed for severe pain. Max Daily Amount: 15 mg 6 tablet 05/20/2024 amLODIPine (NORVASC) 10 mg tablet Take 1 tablet (10 mg total) by mouth 1 (one) time each day. 30 each 05/20/2024 06/19/2024 documented in this encounter Discharge Disposition Disposition Code Departure Means Destination Comment s Home or Self Care documented in this encounter Progress Notes * Cathy Tomlinson RN - 05/20/2024 4:32 PM EST 05/20/24 1631 Transportation Transportation at discharge Family What day is the transport expected? 05/20/24 Final Discharge Disposition Home or Self Care * Jina Dominguez RN - 05/20/2024 12:55 AM EST Goals: Identify possible barriers to meeting goals/advancing plan of care: Pain management Stability of the patient: Moderately Stable - Low risk of patient condition declining or worsening End of Shift Summary: Abdominal tenderness, dressings are clean, dry & intact. Patient reportedpain, getting pain medications. * ODALYS Gómez - 05/19/2024 1:29 PM EST Santa Kate 05[birth year] 59 y.o. [id number] Randee Slater MD SUBJECTIVE : Reporting left flank pain. Denying fever, night sweats, chills, nausea, vomiting, diarrhea, bowel movement. OBJECTIVE: Visit Vitals BP 114/64 (BP Location: Right arm, Patient Position: Lying) Pulse 78 Temp 36.5 ??C (97.7 ??F) (Temporal) Resp 12 Temp (24hrs), Av.7 ??C (98.1 ??F), Min:36.5 ??C (97.7 ??F), Max:37 ??C (98.6 ??F) Body mass index is 37.28 kg/m??. No results found for: PTWT , PTHT Intake/Output Summary (Last 24 hours) at 05/19/2024 1329 Last data filed at 05/19/2024 1100 Gross per 24 hour Intake -- Output 500 ml Net -500 ml Wt Readings from Last 1 Encounters: 05/17/24 2351 108 kg (238 lb) PHYSICAL EXAM: GEN: Alert, oriented. No distress. HEENT: Atraumatic, symmetric, PERRLA. Neck: Supple, nontender, no range of motion limitation. Lungs: Clear, no accessory muscle use. Heart: Regular, no murmur. Abdomen: Not distended, soft, nontender. Bowel sounds present. Diffuse abdominal tenderness, mostly left flank tenderness. No CVA tenderness. Neuro: Alert, oriented. Cranial nerves II to XII grossly intact. No facial droop. No motor deficit,no sensory deficit. Psych: Cooperative, calm. RESULTS: CBC BMP Results from last 7 days Lab Units 05/19/24 0551 05/18/24 0037 WBC AUTO K/mcL 4.5* 5.7 HEMOGLOBIN g/dL 8.9* 11.1* HEMATOCRIT % 27.9* 33.2* PLATELETS K/mcL 164 256 LYMPHS PCT MAN % -- 10.0 MONO PCT MAN % -- 2.0 EOS PCT MAN % -- 0.0 Results from last 7 days Lab Units 05/19/24 0551 05/18/24 0037 SODIUM mmol/L 138 140 POTASSIUM mmol/L 3.9 4.3 CHLORIDE mmol/L 108 109 CO2 mmol/L 22 20* ANION GAP 8 11 BUN mg/dL 26* 35* CREATININE mg/dL 2.06* 2.57* CALCIUM mg/dL 7.8* 8.9 MAGNESIUM mg/dL 2.1 1.4* Results from last 7 days Lab Units 05/19/24 1120 05/19/24 0723 05/19/24 0551 05/18/24 2315 05/18/24 1648 POCT GLUCOSE mg/dL 121* 112* -- 107* 107* GLUCOSE mg/dL -- -- 115* -- -- Results from last 7 days Lab Units 05/18/24 0037 AST unit/L 46* ALT unit/L 68* Imaging: Scheduled Medications PRN Medications IV Medications amLODIPine, 10 mg, Daily colchicine, 0.6 mg, q AM famotidine, 20 mg, Daily heparin (porcine), 5,000 Units, q12h SOBEIDA insulin lispro, 1-6 Units, TID AC loratadine, 10 mg, Daily [Held by provider] losartan, 25 mg, Daily pantoprazole, 40 mg, q AM AC pravastatin, 40 mg, Nightly senna, 1 tablet, Daily sucralfate, 1 g, TID acetaminophen, 650 mg, q6h PRN albuterol, 2.5 mg, q8h PRN dextrose 50%, 12.5 g, q15 min PRN dextrose 50%, 25 g, q15 min PRN dextrose, 15 g, q15 min PRN dextrose, 30 g, q15 min PRN glucagon injection, 1 mg, Once PRN ondansetron, 4 mg, q6h PRN oxyCODONE, 10 mg, q4h PRN oxyCODONE, 5 mg, q4h PRN sodium chloride, Last Rate: 125 mL/hr (05/19/24 0631) ASSESSMENT/PLAN: Abdominal pain Left non obstructing kidney stone? 59-year-old female with a history of diabetes, COPD/asthma, hypertension presented to ED for abdominal pain. She reported nausea, vomiting, diarrhea. Denied fever. Per patient, she was evaluated 3 weeks ago for similar symptoms at [facility]. At admission, her temperature was high 38.2. The rest of vital signs stable. CBC was negative for leukocytosis. CMP showed increased creatinine 2.57. Lactate level was high 2.7. Respiratory virus panel was negative. UA was negative. CT abdomen showed left kidney with nonobstructive 3 mm calculus. Patient was started on pain medication, IV fluid. This morning, continue to report left flank pain. Denied any fever, night sweats, chills, GI symptoms. Vital signs stable. White count normal. Pain meds were readjusted. Continue with IV fluid. JUSTINO Prerenal? Creatinine on admission high 2.57. Treated with IV fluid. Improving, creatinine down to 2.06. Continue with IV fluid. Hypomagnesemia Magnesium low on admission 1.4 and was replaced. This morning, magnesium normal. Type II diabetes mellitus On Diet, SSI. Hypertension On amlodipine Holding hydrochlorothiazide, losartan. Myelofibrosis Status post marrow transplant 10 years ago. Followed by [facility] oncology. Type II obesity BMI 37.28. Follow-up with PCP. CODE STATUS Full DVT prophylaxis Heparin. Time spent: 60 minutes. Case discussed with Dr Slater Disclaimer: Speech recognition software was utilized to dictate portions of this document. Errors in powerhouse mechanic helper may be present. Please call / cortext me if any questions. Portions of this note such ROS, Exam, Assessment and Plan were copy pasted from previous notes. Information was reviewed and changes were made accordingly. I agree with above mentioned information Associated attestation - Randee Slater MD - 05/19/2024 4:08 PM EST This is a split/shared visit with ODALYS Gómez. I personally performed the medical decision making (MDM) for the care of this patient on 05/19/24 as documented below Patient was seen and examined, clinical findings were independently confirmed, case was discussed in detail with Aydin Sanchez and agree with his assessment and plan as detailed in his note of the day of service.I have personally performed the medical decision making in its entirety Briefly 59year-old female with history of diabetes COPD hypertension comes in with uncontrolled because of abdominal pain. Was found to have left nonobstructive kidney stone. Her nausea and vomiting is resolved at this time. Will continue with pain management for now. Continue with IV fluids was found to have JUSTINO. Will monitor her another 24 hours. Randee Slater MD 05/19/24 4:06 PM EST * Melisa Paige RN - 05/19/2024 4:54 AM EST Goals: Acute Kidney Injury, Monitor labwork, medicate for pain, Identify possible barriers to meeting goals/advancing plan of care: Stability of the patient: Moderately Stable - Low risk of patient condition declining or worsening End of Shift Summary: * Gogo Larkin RN - 05/18/2024 9:23 PM EST ED RN HANDOFF (All Wallace Below Must Be Completed) Reason/Diagnosis for Admission: JUSTINO/ kidney stone Type of Admission: [] Medsurg, [x] Telemetry Already in a Hospital Bed: [] Yes / [x] No Room Considerations/Precautions (ex: fever, diarrhea, or any infectious concerns): [x] Yes / [] No Development Specialist: [x] Yes / [] No If YES, Cardiac Rhythm: [x] NSR, [] SB, [] ST, [] A-FIB, [] A-Flutter, [] Pacemaker, [] 1st Degree HB, [] 2nd Degree HB, [] 3rd Degree HB Reason for Development Specialist: VS: Visit Vitals BP 115/62 (BP Location: Left arm) Pulse 79 Temp 37.5 ??C (99.5 ??F) (Oral) Resp 18 Ht 1.702 m (67 ) Wt 108 kg (238 lb) SpO2 96% BMI 37.28 kg/m?? BSA 2.18 m?? Current Mental Status: A/O x [x]4, []3, []2, []1 Current Ambulation Status: standby with rolling walker IV Access: [x] Yes / [] No Field IV present: [] Yes / [x] No Hx of Violence: [] Yes / [x] No / [] Unknown Fall Risk:[x] Yes / [] No Yellow Bracelet Applied [x] Yes / [] No Yellow Socks Applied [x] Yes / [] No Patient Belongings inventoried and BL completed: [x] Yes / [] No Patient belongings stored in the security closet: [] Yes (If Yes please supply Security bag #): [x] No Patient Medications stored in Pharmacy: [] Yes (If Yes please supply Medication Security bag #): [x] No ED Summary of Care: Pt to ED for c/o abd pain, N/V/D since 05/17 as well as dark urine. Pt found to have JUSTINO BUN 35, creat 2.57. Febrile at 100.8F, but states flu/cold symptoms & + sick contacts at home. Negative respiratory panel. Submitted by and Phone Extension: NEGAR Bowens * Scarlet Flood RN - 05/18/2024 6:50 AM EST REPORT TO BIJAL HOLLINS RN * Scarlet Flood RN - 05/18/2024 2:47 AM EST PT TO CT SCAN * Scarlet Flood RN - 05/17/2024 11:46 PM EST MED LIST : ALBUT INHALER.AMLODIPINE, COLCHINE, FAMOTIDINE,FLUTICASONE, HCTZ, JANUVIA, LORATADINE,LOSARTAN, METFORMIN,PANTOPRAZOLE,PRAVASTATIN,SUCRALFATE, TRAMADOL, VENTOLIN, VITD3 * Scarlet Flood RN - 05/17/2024 11:40 PM EST FALL RISK BAND APPLIED ALLERGY BAND APPLIED * Scarlet Flood RN - 05/17/2024 11:39 PM EST PT ARRIVES VIA EMS FROM HOME, STATES SINCE NOON ABD PAIN, VOMITED X 3 AND DIARRHEA AND HEADACHE , NO CALL TO TIFFANY GARCIA WITH WALKER W/SEAT AT BASELINE,PT USUALLY FREQ [facility], ALSO ADDS DARKURINE TODAY, PT DENIES SOB, DENIES CHEST PAIN, * Clyde Retana MD - 05/17/2024 11:17 PM EST Emergency Medicine Note Patient Name: Santa Kate Initial Evaluation: 05/17/2024 : 1965 Patient's PCP: Kalpana Steele MD Emergency Physician: Clyde Retana MD History of Present Illness Chief Complaint: Chief Complaint Patient presents with Abdominal Pain PT ARRIVES VIA EMS FROM HOME, STATES SINCE NOON ABD PAIN, VOMITED X 3 AND DIARRHEA AND HEADACHE , NO CALL TO TIFFANY GARCIA WITH WALKER W/SEAT AT BASELINE,PT USUALLY [facility], ALSO ADDS DARKURINE TODAY, PT DENIES SOB, DENIES CHEST PAIN, HPI: 59-year-old female, history of COPD, hypertension, who presents with abdominal pain. Patient states that around noon on 05/17/2024 she developed fairly diffuse abdominal pain, she vomited x 3, and developed a headache. She is also having some diarrhea. She denies any fever. She is not having any chest pain. She is not having any shortness of breath. Patient also reports that her urine appears darker today than it normally is. No foul smell noted. Patient continues to have pain in the lowerportions of her abdomen, radiates through to her back. Pain is constant, aching, no relieving or exacerbating factors. ROS: I have performed a ROS with the pertinent positives and negatives documented in the history ofpresent illness. Previous History No past medical history on file. No past surgical history on file. No family history on file. is allergic to aspirin, penicillins, and vancomycin. No current facility-administered medications on file prior to encounter. Current Outpatient Medications on File Prior to Encounter Medication Sig Dispense Refill acetaminophen (TYLENOL) 500 mg tablet Take 2 tablets (1,000 mg total) by mouth every 8 (eight) hours if needed for mild pain. albuterol 2.5 mg /3 mL (0.083 %) nebulizer solution Take 3 mL (2.5 mg total) by nebulization every 8 (eight) hours if needed for wheezing. albuterol HFA (PROAIR HFA ; PROVENTIL HFA ; VENTOLIN HFA) 90 mcg/actuation inhaler Inhale 2 puffs by mouth every 6 (six) hours if needed for wheezing. aluminum-magnesium hydroxide-simethicone (MAALOX MAX) 400-400-40 mg/5 mL suspension 4 (four) times a day (before meals and nightly). amLODIPine (NORVASC) 2.5 mg tablet Take 4 tablets (10 mg total) by mouth 1 (one) time each day. atorvastatin (LIPITOR) 20 mg tablet Take 1 tablet (20 mg total) by mouth at bedtime. canagliflozin (INVOKANA) 100 mg tablet Take 1 tablet (100 mg total) by mouth 1 (one) time each day. cefuroxime (CEFTIN) 500 mg tablet Take 1 tablet (500 mg total) by mouth 2 (two) times a day. cholecalciferol (VITAMIN D-3) 25 mcg (1,000 unit) tablet Take 40,000 tablets (40,000,000 Units total) by mouth 1 (one) time each day. citalopram (CeleXA) 10 mg tablet Take 1 tablet (10 mg total) by mouth 1 (one) time each day in the morning. colchicine (MITIGARE) 0.6 mg capsule capsule Take 1 capsule (0.6 mg total) by mouth 1 (one) time each day in the morning. cyanocobalamin (VITAMIN B-12) 1,000 mcg/mL injection Inject 1 mL (1,000 mcg total) into the shoulder, thigh, or buttocks every 30 (thirty) days. Dextran 70-Hypromellose, PF, 0.1-0.3 % dropperette Administer 1 each into affected eye(s) 3 (three)times a day. 1 DROP IN BOTH EYES 3 TIMES DAILYL diclofenac (VOLTAREN) 1 % topical gel Apply topically 2 (two) times a day. dicyclomine (BENTYL) 20 mg tablet Take 1 tablet (20 mg total) by mouth 4 (four) times a day (beforemeals and nightly). famotidine (PEPCID) 20 mg tablet Take 1 tablet (20 mg total) by mouth 1 (one) time each day. ferrous sulfate 325 mg (65 mg elemental iron) tablet Take 1 tablet (325 mg total) by mouth at bedtime. fluticasone HFA (FLOVENT HFA) 110 mcg/actuation inhaler Inhale 1 puff by mouth 2 (two) times a day.Rinse mouth with water after use to reduce aftertaste and incidence of candidiasis. Do not swallow. fluticasone propionate (FLONASE) 50 mcg/actuation nasal spray Administer 12 sprays into each nostril 1 (one) time each day. Shake gently. Before first use, prime pump. After use, clean tip and replace cap. folic acid (FOLVITE) 1 mg tablet Take 1 tablet (1 mg total) by mouth 1 (one) time each day. hydroCHLOROthiazide 12.5 mg tablet Take 1 tablet (12.5 mg total) by mouth 1 (one) time each day. ketotifen (ZADITOR) 0.025 % ophthalmic solution 1 drop every 12 (twelve) hours. INTO AFFECTED EYE lidocaine (LIDODERM) 5 % patch Apply 1 patch topically at bedtime. Remove & discard patch within 12 hours or as directed by MD. lisinopriL (PRINIVIL,ZESTRIL) 5 mg tablet Take 1 tablet (5 mg total) by mouth 1 (one) time each day. loperamide (IMODIUM) 2 mg capsule Take 1 capsule (2 mg total) by mouth 4 (four) times a day if needed for diarrhea. loratadine 10 mg capsule Take 10 mg by mouth. melatonin 3 mg tablet Take 1 tablet (3 mg total) by mouth at bedtime. metFORMIN (GLUCOPHAGE) 500 mg tablet Take 1 tablet (500 mg total) by mouth 2 (two) times a day withmeals. mirtazapine (REMERON) 15 mg tablet Take 1 tablet (15 mg total) by mouth at bedtime. naloxone (NARCAN) 4 mg/actuation nasal spray KIT (Take home med ONLY) Administer 1 spray (4 mg total) into affected nostril(s) See administration instructions. ngvnnebm-dsaicfqpm-foekyqjvqfxbqa (CORTISPORIN) otic solution 3 drops 4 (four) times a day. ondansetron ODT (ZOFRAN-ODT) 4 mg disintegrating tablet Dissolve 1 tablet (4 mg total) on top of the tongue every 8 (eight) hours if needed for nausea or vomiting. pantoprazole (PROTONIX) 40 mg EC tablet Take 1 tablet (40 mg total) by mouth 1 (one) time each day before breakfast. polyvinyl alcohol (ARTIFICIAL TEARS) 1.4 % ophthalmic solution Administer 1 drop into both eyes 2 (two) times a day. pravastatin (PRAVACHOL) 40 mg tablet Take 1 tablet (40 mg total) by mouth at bedtime. ruxolitinib (JAKAFI) 5 mg tablet Take 1 tablet (5 mg total) by mouth 1 (one) time each day senna (SENOKOT) 8.6 mg tablet Take 1 tablet (8.6 mg total) by mouth 1 (one) time each day. SITagliptin phosphate (JANUVIA) 50 mg tablet Take 1 tablet (50 mg total) by mouth 1 (one) time eachday. sucralfate (CARAFATE) 1 gram tablet Take by mouth 3 (three) times a day. tamsulosin (FLOMAX) 0.4 mg 24 hr capsule Take 1 capsule (0.4 mg total) by mouth at bedtime. Capsules should be taken 30 minutes following the same meal each day. terazosin (HYTRIN) 1 mg capsule Take 1 capsule (1 mg total) by mouth at bedtime. tolterodine LA (DETROL LA) 4 mg 24 hr capsule Take 1 capsule (4 mg total) by mouth 1 (one) time each day in the morning. Do not crush, chew, or split. traMADoL (ULTRAM) 50 mg tablet Take 1 tablet (50 mg total) by mouth every 6 (six) hours if needed for severe pain. Max Daily Amount: 200 mg Physical Exam ED Triage Vitals Temp Pulse Resp BP -- -- -- -- SpO2 Temp src Heart Rate Source Patient Position -- -- -- -- BP Location FiO2 (%) -- -- General: Well-appearing, well nourished, in no acute distress HEENT: PERRL, EOMI, external ears and nose appear unremarkable, airway is patent Neck: Supple, full range of motion Chest: Clear to auscultation; no evidence of respiratory distress Circulatory: RRR, extremities well perfused Abdomen: Non-distended, tender to palpation diffusely, no rebound, no guarding. No Brown Reed, no Chicken sign Extremities: Normal ROM, No edema Skin: Warm and dry Neuro: Alert and oriented, no focal deficits Results Labs Reviewed COMPREHENSIVE METABOLIC PANEL - Abnormal Result Value Sodium 140 Potassium 4.3 Chloride 109 CO2 20 (*) Anion Gap 11 Glucose 131 (*) BUN 35 (*) Creatinine 2.57 (*) eGFR 21 (*) BUN/Creatinine Ratio 13.6 Calcium 8.9 AST (SGOT) 46 (*) ALT (SGPT) 68 (*) Alkaline Phosphatase 78 Total Protein 7.7 Albumin 4.3 Total Bilirubin 0.5 MAGNESIUM - Abnormal Magnesium 1.4 (*) CBC WITH AUTO DIFFERENTIAL - Abnormal WBC 5.7 RBC 3.80 Hemoglobin 11.1 (*) Hematocrit 33.2 (*) MCV 87.6 MCH 29.3 MCHC 33.4 RDW 13.3 Platelets 256 MPV 9.9 NRBC 0.0 NRBC Absolute 0.00 URINALYSIS WITH REFLEX MICROSCOPIC AND CULTURE - Abnormal Specific [place] Urine 1.017 pH, Urine 5.5 Leukocytes, Urine Negative Nitrite, Urine Negative Protein, Urine 300 (*) Glucose, Urine Negative Ketones, Urine Trace (*) Urobilinogen, Urine 0.2 Bilirubin, Urine Negative Blood, Urine Trace (*) RBC, Urine 4.1 (*) WBC, Urine 2.3 Squamous Epithelial, Urine 36 Bacteria, Urine Negative Hyaline Casts, Urine 2.9 MANUAL DIFFERENTIAL - INSTRUMENT DIFFERENTIAL - Abnormal Neutrophils % 74.0 Bands % 13.0 Lymphocytes % 10.0 Monocytes % 2.0 Eosinophils % 0.0 Basophils % 0.0 Metamyelocytes % 1.0 (*) Neutrophils Absolute Manual 4.22 Bands Absolute Manual 0.74 (*) Lymphocytes Absolute 0.57 (*) Monocytes Absolute Manual 0.11 (*) Eosinophils Absolute Manual 0.00 Basophils Absolute Manual 0.00 Metamyelocytes Absolute Manual 0.06 (*) Rbc Morphology Consistent with indices Platelet Morphology - WAM Normal LIPASE - Normal Lipase 48 CULTURE URINE CBC AND DIFFERENTIAL Narrative: The following orders were created for panel order CBC and differential. Procedure Abnormality Status --------- ------ CBC auto differential[[id number]] Abnormal Final result Please view results for these tests on the individual orders. URINALYSIS WITH REFLEX MICROSCOPIC AND CULTURE Narrative: The following orders were created for panel order Urinalysis with reflex microscopic and culture. Procedure Abnormality Status --------- ------ Urinalysis with reflex ...[[id number]] Abnormal Final result [facility] urine culture tube[[id number]] Please view results for these tests on the individual orders. Abnormal Labs Reviewed COMPREHENSIVE METABOLIC PANEL - Abnormal; Notable for the following components: Result Value CO2 20 (*) Glucose 131 (*) BUN 35 (*) Creatinine 2.57 (*) eGFR 21 (*) AST (SGOT) 46 (*) ALT (SGPT) 68 (*) All other components within normal limits MAGNESIUM - Abnormal; Notable for the following components: Magnesium 1.4 (*) All other components within normal limits CBC WITH AUTO DIFFERENTIAL - Abnormal; Notable for the following components: Hemoglobin 11.1 (*) Hematocrit 33.2 (*) All other components within normal limits URINALYSIS WITH REFLEX MICROSCOPIC AND CULTURE - Abnormal; Notable for the following components: Protein, Urine 300 (*) Ketones, Urine Trace (*) Blood, Urine Trace (*) RBC, Urine 4.1 (*) All other components within normal limits MANUAL DIFFERENTIAL - INSTRUMENT DIFFERENTIAL - Abnormal; Notable for the following components: Metamyelocytes % 1.0 (*) Bands Absolute Manual 0.74 (*) Lymphocytes Absolute 0.57 (*) Monocytes Absolute Manual 0.11 (*) Metamyelocytes Absolute Manual 0.06 (*) All other components within normal limits CT Abdomen Pelvis wo Contrast Final Result Nonobstructive 3 mm calculus in the left midpole kidney. This document has been electronically signed by: Waqar Candelaria MD on 05/18/2024 03:16:27 I have discussed the incidental/abnormal imaging and/or lab abnormalities with the patient and haveinstructed them the need for further evaluation and workup with their primary care doctor. I have provided the patient with a paper copy of the abnormality. The laboratory results, imaging results and other diagnostic exam results were reviewed in the EMR. EKG Interpretation Critical Care Time None ? Medical Decision Making Medications sodium chloride 0.9 % infusion (125 mL/hr intravenous Rate/Dose Verify 05/18/24 0541) sodium chloride 0.9 % bolus 1,000 mL (1,000 mL intravenous New Bag 05/18/24 0610) ondansetron (PF) (ZOFRAN) injection 4 mg (4 mg intravenous Given 05/18/24 012) ketorolac (TORADOL) injection 15 mg (15 mg intravenous Given 05/18/24 0125) ED Course as of 05/18/24 0611 FriMay 18, [address] scan shows no significant abnormality. Patient's urinalysis shows protein is elevated at 300, some trace blood. Her creatinine is elevated at 2.57, this is up from her baseline of 1.5. Patient will be admitted for acute kidney injury. Additional IV fluids pending at this time [SM] ED Course User Index [SM] Clyde Retana MD Clinical Impressions as of 05/18/24 0611 Generalized abdominal pain Acute kidney injury (CMS/HCC) 59-year-old female, no pertinent past medical history, who presents with abdominal pain associated with nausea/vomiting/diarrhea. Potential etiologies for this patient's symptoms include but not limited to viral gastroenteritis, diverticulitis, colitis, urinary tract infection. Patient's history and physical exam does not narrow the differential significantly unfortunately. Screening labs, IV fluids, symptomatic relief, CT of the abdomen and pelvis pending at this time. Urinalysis is pending. Will monitor. Procedures Procedures Diagnosis 1. Generalized abdominal pain 2. Acute kidney injury (CMS/HCC) Disposition Admit to Inpatient ED Prescriptions None Physician Attestation Clyde Retana MD 05/18/24 0009 Clyde Retana MD 05/18/24 0135 Clyde Retana MD 05/18/24 0611 documented in this encounter H&P Notes * ODALYS Mckeon - 05/18/2024 9:40 AM EST Images from the original note were not included. [facility] HISTORY AND PHYSICAL Patient: Santa Kate Admission Date/Time: 05/17/2024 11:26 PM : 1965 59 y.o. Patient's PCP: Kalpana Steele MD Attending Provider: Heladio Sharma MD CHIEF COMPLAINT Abdominal pain. HISTORY OF PRESENT ILLNESS 59-year-old female with a history of diabetes, COPD/asthma, hypertension and further history as noted below presented to the emergency room with abdominal pain. Patient reported that around noontime yesterday she developed fairly diffuse abdominal pain and vomited 3 times. She noted associated headache as well as some loose stools. She denied any fever. She noted no chest pain and/or shortness ofbreath she reported that her urine appeared darker than normal. While in the emergency room she noted persistent lower abdominal pain radiating to her back which was constant and achy with no relieving factors. 100.8 CBC revealed a hemoglobin of 11.1. Hematocrit of 33.2. BMP revealed a CO2 of 20. BUN of 35. Creatinine 2.57. GFR 21. AST 46. ALT 68. Magnesium 1.4. Urinalysis revealed 300 of protein, trace ketones, trace blood??? CT abdomen and pelvis without contrast revealed nonobstructive 3 mm calculus in the left midpole kidney??? Please see full report At present time patient reports developing sudden onset of right sided abdominal pain yesterday afternoon. She states it radiates to her back she developed associated chills as well as a few episodesof nausea and vomiting. She also reports some episodes of loose stools. She notes some recent nasalcongestion and sick contacts stating that several of her sisters have flulike illnesses one of themis hospitalized. She notes some urinary discomfort but is quite vague regarding this. Review of Systems As per HPI. Other 10 point review of systems is negative. MEDICAL HISTORY Past Medical History Diabetes mellitus Hypertension Diabetic neuropathy Myelofibrosis Chronic kidney disease stage III Chronic rurbr-ihfnrc-hsit disease Asthma, moderate persistent Depression with anxiety Gout BERNIE Meningioma Osteoarthritis Hepatosteatosis Past Surgical History Bone marrow transplant Hysterectomy Social History Reports living alone. She ambulates with a rolling walker. She has a remote history of tobacco use smoked in her 20s. She denies any alcohol use. She is a full code. Her emergency contact is her sister [phone] she notes that she has been sick herself. Family History Mother-diabetes, HTN, CKD, heart disease. Father-CAD. Sister-breast cancer, DM. Allergies PCN ASA Vancomycin Home Medications Albuterol nebs every 4 as needed Amlodipine 10 mg daily Colchicine 0.6 mg daily Famotidine 20 mg daily Fluticasone nasal spray daily Hydrochlorothiazide 12.5 mg daily Januvia 50 mg daily Loratadine 10 mg daily Losartan 25 mg daily Metformin 500 mg daily Protonix 40 mg daily Pravastatin 40 mg at bedtime Sucralfate 1 g 3 times daily Tramadol 50 mg every 6 hours as needed for pain Vitamin D3 25 mcg daily OBJECTIVE Vitals Visit Vitals BP 100/67 Pulse 89 Temp (!) 38.2 ??C (100.8 ??F) Resp 20 Temp (24hrs), Av.2 ??C (99 ??F), Min:36.7 ??C (98 ??F), Max:38.2 ??C (100.8 ??F) Body mass index is 37.28 kg/m??. No results found for: PTWT , PTHT PHYSICAL EXAM: General: 59-year-old female lying in a left lateral decubitus position in no acute distress. She isalert and oriented able to answer questions and follow commands primarily in Faroese. HEENT: Pupils are equal, round and reactive to light. No facial asymmetry. Mucous membranes dry. Cardiovascular: S1S2, no murmur appreciated. Lungs: Clear to auscultation bilaterally. No wheezing, rhonchi and or rales. Abdomen: Protuberant, positive bowel sounds, soft, nontender without rebound and or guarding. Extremities: No erythema and/or edema. Active range of motion all 4 extremities. Cranial Nerves: II through XII grossly intact. LAB RESULTS (most recent) HEMATOLOGY Lab Results Component Value Date WBC 5.7 05/18/2024 HGB 11.1 (L) 05/18/2024 HCT 33.2 (L) 05/18/2024 MCV 87.6 05/18/2024 PLT 256 05/18/2024 CHEMISTRY Lab Results Component Value Date GLUCOSE 131 (H) 05/18/2024 NA 140 05/18/2024 K 4.3 05/18/2024 CO2 20 (L) 05/18/2024 CL 109 05/18/2024 BUN 35 (H) 05/18/2024 CREATININE 2.57 (H) 05/18/2024 EGFR 21 (L) 05/18/2024 CALCIUM 8.9 05/18/2024 MG 1.4 (L) 05/18/2024 ANIONGAP 11 05/18/[address] Abdomen Pelvis wo Contrast Final Result Nonobstructive 3 mm calculus in the left midpole kidney. This document has been electronically signed by: Waqar Candelaria MD on 05/18/2024 03:16:27 ASSESSMENT & PLAN Acute kidney injury on CKD stage IV BUN 35. Creatinine 2.57. GFR 21. On 03/2024 BUN was 19. Creatinine 1.9. GFR 26. - Admit. - Hold hydrochlorothiazide metformin and losartan. - Treat with LR and repeat labs. Abdominal pain, right sided Possibly related to a viral illness, notes URI symptoms as well as GI symptoms and multiple sick contacts recently. Urinalysis unrevealing. CT abdomen and pelvis as noted above unrevealing. - Obtain respiratory viral panel. - If continues to have loose stools will check GI panel. - Continue with IV fluids, antiemetics and analgesics as needed. Hypomagnesemia -Replace and recheck. Diabetes mellitus - On Januvia and metformin. Oral agents will be held. - Check [id number]'s ACHS. [place] insulin sliding scale. Hypertension - On amlodipine, hydrochlorothiazide and losartan. Hydrochlorothiazide and losartan will be held today. - Monitor blood pressure trend and adjust regimen accordingly. Myelofibrosis Reports having a bone marrow transplant approximately 10 years ago. She states one of her sisters was a match but unfortunately she last year of breast cancer. -Oncologist at [facility]. DVT prophylaxis - Heparin. Code Status: Full. Associated attestation - Heladio Sharma MD - 05/24/2024 10:20 AM EST This is a split/shared visit with ODALYS Mckeon. I personally performed the medical decision making (MDM) for the care of this patient on 05/18/24 asdocumented below 59-year-old female with multiple medical problems including diabetes type 2 as well as COPD/asthma and hypertension presented to emergency room with abdominal pain. This has been complicated by development of nausea and vomiting as well as some headache and loose stool. She has leukocytosis. She has acute kidney injury with creatinine of 2.57 and hypomagnesemia. I have reviewed her CT of abdomen and pelvis which has some small stone in the renal pelvis on the left side. Is been a compromise patient with bone marrow transplant. However see that she is on any immunosuppressive medication Agree with admission to the hospital with probable viral illness as well as acute on chronic kidneyinjury. Gentle hydration. GI panel. Hold hydrochlorothiazide metformin and losartan. Replete electrolytes. Heladio Sharma MD 05/24/24 10:18 AM EST documented in this encounter Plan of Treatment Upcoming Encounters Date Type Department Care Team (Late st Contact Info) Description 06/15/2024 2:45 PM EST Office Visit Orthopedic Surgery - [place] [address] [facility] [address] [place] [phone] Lee Delaney, DPM [address] [facility] [address] [place] [address] documented as of this encounter Procedures Procedure Name Priority Date/Time Associated Diagnosis Comments POCT GLUCOSE BLOOD Routine 05/20/2024 12 :08 PM EST POCT GLUCOSE BLOOD Routine 05/20/2024 9 :00 AM EST BASIC METABOLIC PANEL Routine 05/20/2024 6:02 AM EST GASTROINTESTINAL PATHOGENS BY PCR Routine 05/20/2024 1:56 AM EST POCT GLUCOSE BLOOD Routine 05/19/2024 7: 44 PM EST POCT GLUCOSE BLOOD Routine 05/19/2024 4: 10 PM EST POCT GLUCOSE BLOOD Routine 05/19/2024 11 :20 AM EST LACTATE Routine 05/19/2024 8:15 AM EST POCT GLUCOSE BLOOD Routine 05/19/2024 7: 23 AM EST COMPLETE BLOOD COUNT Routine 05/19/2024 5:51 AM EST MAGNESIUM Routine 05/19/2024 5:51 AM EST BASIC METABOLIC PANEL Routine 05/19/2024 5:51 AM EST POCT GLUCOSE BLOOD Routine 05/18/2024 11 :15 PM EST POCT GLUCOSE BLOOD Routine 05/18/2024 4: 48 PM EST SODIUM, URINE, RANDOM STAT 05/18/2024 4:28 PM EST PROTEIN, URINE, RANDOM STAT 4:28 PM EST CREATININE, URINE, RANDOM STAT 05/18/2024 4:28 PM EST RESPIRATORY VIRUS PANEL MOLECULAR STUDY STAT 05/18/2024 12:20 PM EST POCT GLUCOSE BLOOD Routine 05/18/2024 12 :11 PM EST LACTATE STAT 05/18/2024 10:21 AM EST [facility] URINE CULTURE TUBE STAT 05/18/19 25 3:[address] ABDOMEN PELVIS WO CONTRAST STAT 05/18/2024 2:48 AM EST URINALYSIS WITH REFLEX MICROSCOPIC AND CULTURE STAT 05/18/2024 12:46 AM EST TIGER TOP URINE TUBE Routine 05/18/2024 12:46 AM EST EXTRA TUBES Routine 05/18/2024 12:46 AM EST URINALYSIS WITH REFLEX MICROSCOPIC AND CULTURE STAT 05/18/2024 12:46 AM EST CULTURE URINE STAT 05/18/2024 12:46 AM EST MANUAL DIFFERENTIAL - SYSMEX WAM STAT 05/18/2024 12:37 AM EST CBC WITH AUTO DIFFERENTIAL STAT 05/18/2024 12:37 AM EST CBC AND DIFFERENTIAL STAT 05/18/2024 12:37 AM EST MAGNESIUM STAT 05/18/2024 12:37 AM EST LIPASE STAT 05/18/2024 12:37 AM EST COMPREHENSIVE METABOLIC PANEL STAT 05/18/2024 12:37 AM EST ECG ANNOTATED 05/18/2024 documented in this encounter Results * (ABNORMAL) POCT Glucose, blood (05/20/2024 12:08 PM EST) Glucose POCT 129(H) 70 - 100 mg/dL 05/20/2024 12:09 PM EST [facility] Blood Capillary blood specimen / Unknown 05/20/2024 12:08 PM EST 05/20/2024 12:10 PM EST Randee Slater MD LAB POINT OF CARE TE ST DOCKED DEVICE UNSOLICITED RESULTS Performing Organization Address City/[facility]/ZIP Co de Phone Number [facility] [address] [place] [address], [place] [phone] * (ABNORMAL) POCT Glucose, blood (05/20/2024 9:00 AM EST) Glucose POCT 149(H) 70 - 100 mg/dL 05/20/2024 9:01 AM EST [facility] Blood Capillary blood specimen / Unknown 05/20/2024 9:00 AM EST 05/20/2024 9:02 AM EST Randee Slater MD LAB POINT OF CARE TE ST DOCKED DEVICE UNSOLICITED RESULTS Performing Organization Address City/[facility]/ZIP Co de Phone Number [facility] [address] [place] [address], [place] [phone] * (ABNORMAL) Basic metabolic panel (05/20/2024 6:02 AM EST) Sodium 138 133 - 145 mmol/L LAB CHEMISTRY METHOD 05/20/2024 9:07 AM EST [facility] Potassium 4.0 3.5 - 5.5 mmol/L LAB CHEMISTRY METHOD 05/20/2024 9:07 AM [facility] Chloride 111(H) 96 - 110 mmol/L LAB CHEMISTRY METHOD 05/20/2024 9:07 AM [facility] CO2 24 21 - 32 mmol/L LAB CHEMISTRY METHOD 05/20/2024 9:07 AM [facility] Anion Gap 3 3 - 11 LAB CHEMISTRY METHOD 05/20/2024 9:07 AM [facility] Glucose 106(H) 70 - 100 mg/dL LAB CHEMISTRY METHOD 05/20/2024 9:07 AM [facility] BUN 18 5 - 25 mg/dL LAB CHEMISTRY METHOD 05/20/2024 9:07 AM [facility] Creatinine 1.75(H) 0.50 - 1.10 mg/dL LAB CHEMISTRY METHOD 05/20/2024 9:07 AM [facility] eGFR 33(L) >=60 mL/min/1. 73m2 LAB CHEMISTRY METHOD 05/20/2024 9:07 AM [facility] Comment:Calculation based on the??Chronic Kidney Disease Epidemiology Collaboration (CKD-EPI) equation refit??without adjustment for race. BUN/Creatinine Ratio 10.3 LAB CHEMISTRY METHOD 05/20/2024 9:07 AM [facility] Calcium 8.0(L) 8.5 - 10.5 mg/dL LAB CHEMISTRY METHOD 05/20/2024 9:07 AM [facility] Blood Venous blood specimen / Unknown Venipuncture / Unknown 05/20/2024 6:02 AM EST 05/20/2024 6:38 AM EST Clarice MORROW LAB BLOOD ORDERAB LES [facility] [address] [place] [address], * (ABNORMAL) Gastrointestinal pathogens molecular study (05/20/2024 1:56 AM EST) Campylobacter Detection by PCR Not Detected Not Detected LAB MICROBIOLOGY METHOD 5 8:58 AM [facility] Plesiomonas shigelloides Detection by PCR Not Detected Not Detected LAB MICROBIOLOGY METHOD 5 8:58 AM EST [facility] Salmonella Detection by PCR Not Detected Not Detected LAB MICROBIOLOGY METHOD 5 8:58 AM [facility] Vibrio Detection by PCR Not Detected Not Detected LAB MICROBIOLOGY METHOD 5 8:58 AM [facility] Vibrio cholerae Detection by PCR Not Detected Not Detected LAB MICROBIOLOGY METHOD 5 8:58 AM [facility] Yersinia enterocolitica Detection by PCR Not Detected Not Detected LAB MICROBIOLOGY METHOD 5 8:58 AM [facility] Enteroaggregative E coli EAEC Detection by PCR Not Detected Not Detected LAB MICROBIOLOGY METHOD 5 8:58 AM [facility] Enteropathogenic E coli EPEC Detection Not Detected Not Detected LAB MICROBIOLOGY METHOD 5 8:58 AM [facility] Enterotoxigenic E coli ETEC LTST Detection Not Detected Not Detected LAB MICROBIOLOGY METHOD 5 8:58 AM [facility] Shiga-like toxin producing E coli STEC STX1 STX2 Det Not Detected Not Detected LAB MICROBIOLOGY METHOD 5 8:58 AM [facility] Shigella Enteroinvasive E coli EIEC Detection Not Detected Not Detected LAB MICROBIOLOGY METHOD 5 8:58 AM [facility] Cryptosporidium Detection by PCR Not Detected Not Detected LAB MICROBIOLOGY METHOD 5 8:58 AM [facility] Cyclospora cayetanensis Detection by PCR Not Detected Not Detected LAB MICROBIOLOGY METHOD 5 8:58 AM [facility] Entamoeba histolytica Detection by PCR Not Detected Not Detected LAB MICROBIOLOGY METHOD 5 8:58 AM EST [facility] Giardia lamblia Detection by PCR Not Detected Not Detected LAB MICROBIOLOGY METHOD 5 8:58 AM [facility] Adenovirus F 40 41 Detection by PCR Not Detected Not Detected LAB MICROBIOLOGY METHOD 5 8:58 AM [facility] Astrovirus Detection by PCR Not Detected Not Detected LAB MICROBIOLOGY METHOD 5 8:58 AM [facility] Norovirus GI GII Detection by PCR Detected(A ) Not Detected LAB MICROBIOLOGY METHOD 5 8:58 AM [facility] Comment:ALTERNATE METHOD REC OMMENDED IF RESULTS DO NOT CORRELATE WITH CLINICAL PRESENTATION Sapovirus Detection by PCR Not Detected Not Detected LAB MICROBIOLOGY METHOD 5 8:58 AM [facility] Rotavirus A Detection by PCR Not Detected Not Detected LAB MICROBIOLOGY METHOD 5 8:58 AM [facility] Stool Rectum structure / Unknown Non-blood Collection / Unknown 05/20/2024 1:56 AM EST 05/20/2024 2:06 AM EST [facility] - 05/20/2024 8:58 AM EST PCR [...] Clarice MORROW LAB MICROBIOLOGY - GENERAL ORDERABLES [facility] [address] [place] [address], * (ABNORMAL) POCT Glucose, blood (05/19/2024 7:44 PM EST) Glucose POCT 117(H) 70 - 100 mg/dL 05/19/2024 7:45 PM EST [facility] Blood Capillary blood specimen / Unknown 05/19/2024 7:44 PM EST 05/19/2024 7:46 PM EST Ranede Slater MD LAB POINT OF CARE TE ST DOCKED DEVICE UNSOLICITED RESULTS [facility] [address] [place] [address], [place] [phone] * (ABNORMAL) POCT Glucose, blood (05/19/2024 4:10 PM EST) Glucose POCT 113(H) 70 - 100 mg/dL 05/19/2024 4:11 PM EST [facility] Blood Capillary blood specimen / Unknown 05/19/2024 4:10 PM EST 05/19/2024 4:12 PM EST Randee Slater MD LAB POINT OF CARE TE ST DOCKED DEVICE UNSOLICITED RESULTS [facility] [address] [place] [address], [place] [phone] * (ABNORMAL) POCT Glucose, blood (05/19/2024 11:20 AM EST) Glucose POCT 121(H) 70 - 100 mg/dL 05/19/2024 11:21 AM EST [facility] POCT Comment RN Notified 05/19/2024 11:21 AM EST [facility] Blood Capillary blood specimen / Unknown 05/19/2024 11:20 AM EST 05/19/2024 11:22 AM EST Randee Slater MD LAB POINT OF CARE TE ST DOCKED DEVICE UNSOLICITED RESULTS Performing Organization Address City/[facility]/ZIP Co de Phone Number [facility] [address] [place] [address], [place] [phone] * Lactate (05/19/2024 8:15 AM EST) Lactate 0.8 0.4 - 2.0 mmol/L LAB CHEMISTRY METHOD 05/19/2024 9:00 AM EST [facility] Blood Venous blood specimen / Unknown Venipuncture / Unknown 05/19/2024 8:15 AM EST 05/19/2024 8:32 AM EST Clarice MORROW LAB BLOOD ORDERAB LES Performing Organization Address [facility] Co de Phone Number [facility] [address] [place] [address], * (ABNORMAL) POCT Glucose, blood (05/19/2024 7:23 AM EST) [facility] Glucose POCT 112(H) 70 - 100 mg/dL 05/19/2024 7:23 AM EST [facility] POCT Comment RN Notified 05/19/2024 7:23 AM EST [facility] Blood Capillary blood specimen / Unknown 05/19/2024 7:23 AM EST 05/19/2024 7:24 AM EST Randee Slater MD LAB POINT OF CARE TE ST DOCKED DEVICE UNSOLICITED RESULTS Performing Organization Address City/[facility]/ZIP Co de Phone Number [facility] [address] [place] [address], [place] [phone] * Magnesium (05/19/2024 5:51 AM EST) Magnesium 2.1 1.9 - 2.6 mg/dL LAB CHEMISTRY METHOD 05/19/2024 7:53 AM [facility] Blood Venous blood specimen / Unknown Venipuncture / Unknown 05/19/2024 5:51 AM EST 05/19/2024 6:51 AM EST Beronica MORROW LAB BLOOD ORDERABLES [facility] [address] [place] [address], * (ABNORMAL) Basic metabolic panel (05/19/2024 5:51 AM EST) Sodium 138 133 - 145 mmol/L LAB CHEMISTRY METHOD 05/19/2024 7:53 AM [facility] Potassium 3.9 3.5 - 5.5 mmol/L LAB CHEMISTRY METHOD 05/19/2024 7:53 AM [facility] Chloride 108 96 - 110 mmol/L LAB CHEMISTRY METHOD 05/19/2024 7:53 AM [facility] CO2 22 21 - 32 mmol/L LAB CHEMISTRY METHOD 05/19/2024 7:53 AM [facility] Anion Gap 8 3 - 11 LAB CHEMISTRY METHOD 05/19/2024 7:53 AM [facility] Glucose 115(H) 70 - 100 mg/dL LAB CHEMISTRY METHOD 05/19/2024 7:53 AM [facility] BUN 26(H) 5 - 25 mg/dL LAB CHEMISTRY METHOD 05/19/2024 7:53 AM [facility] Creatinine 2.06(H) 0.50 - 1.10 mg/dL LAB CHEMISTRY METHOD 05/19/2024 7:53 AM [facility] eGFR 27(L) >=60 mL/min/1. 73m2 LAB CHEMISTRY METHOD 05/19/2024 7:53 AM [facility] Comment:Calculation based on the??Chronic Kidney Disease Epidemiology Collaboration (CKD-EPI) equation refit??without adjustment for race. BUN/Creatinine Ratio 12.6 LAB CHEMISTRY METHOD 05/19/2024 7:53 AM [facility] Calcium 7.8(L) 8.5 - 10.5 mg/dL LAB CHEMISTRY METHOD 05/19/2024 7:53 AM [facility] Blood Venous blood specimen / Unknown Venipuncture / Unknown 05/19/2024 5:51 AM EST 05/19/2024 6:51 AM EST Beronica MORROW LAB BLOOD ORDERABLES [facility] [address] [place] [address], * (ABNORMAL) Complete blood count (05/19/2024 5:51 AM EST) WBC 4.5(L) 4.8 - 10.8 K/mcL LAB HEMETOLOGY METHOD 05/19/2024 7:30 AM [facility] RBC 3.10(L) 3.80 - 4.80 M/[facility] LAB HEMETOLOGY METHOD 05/19/2024 7:30 AM [facility] Hemoglobin 8.9(L) 11.5 - 16.0 g/dL LAB HEMETOLOGY METHOD 05/19/2024 7:30 AM [facility] Hematocrit 27.9(L) 35.0 - 47.0 % LAB HEMETOLOGY METHOD 05/19/2024 7:30 AM [facility] MCV 91.2 79.0 - 98.0 FL LAB HEMETOLOGY METHOD 05/19/2024 7:30 AM [facility] MCH 29.1 27.0 - 32.0 pcg LAB HEMETOLOGY METHOD 05/19/2024 7:30 AM [facility] MCHC 31.9(L) 32.0 - 37.0 g/dL LAB HEMETOLOGY METHOD 05/19/2024 7:30 AM EST [facility] RDW 13.6 11.0 - 15.0 % LAB HEMETOLOGY METHOD 05/19/2024 7:30 AM EST [facility] Platelets 164 130 - 400 K/mcL LAB HEMETOLOGY METHOD 05/19/2024 7:30 AM EST [facility] MPV 10.1 7.0 - 11.0 FL LAB HEMETOLOGY METHOD 05/19/2024 7:30 AM EST [facility] NRBC 0.4 <1.0 % LAB HEMETOLOGY METHOD 05/19/2024 7:30 AM EST [facility] NRBC Absolute 0.02 <0.10 K/mcL LAB HEMETOLOGY METHOD 05/19/2024 7:30 AM [facility] Blood Venous blood specimen / Unknown Venipuncture / Unknown 05/19/2024 5:51 AM EST 05/19/2024 6:50 AM EST Beronica MORROW LAB BLOOD ORDERABLES [facility] [address] [place] [address], [place] [phone] * (ABNORMAL) POCT Glucose, blood (05/18/2024 11:15 PM EST) [facility] Signature Glucose POCT 107(H) 70 - 100 mg/dL 05/18/2024 11:16 PM EST [facility] Blood Capillary blood specimen / Unknown 05/18/2024 11:15 PM EST 05/18/2024 11:17 PM EST Heladio Sharma MD LAB POINT OF CARE TE ST DOCKED DEVICE UNSOLICITED RESULTS [facility] [address] [place] [address], [place] [phone] * (ABNORMAL) POCT Glucose, blood (05/18/2024 4:48 PM EST) Glucose POCT 107(H) 70 - 100 mg/dL 05/18/2024 4:49 PM EST [facility] Blood Capillary blood specimen / Unknown 05/18/2024 4:48 PM EST 05/18/2024 4:50 PM EST Heladio Sharma MD LAB POINT OF CARE TE ST DOCKED DEVICE UNSOLICITED RESULTS [facility] [address] [place] [address], [place] [phone] * Protein, urine, random (05/18/2024 4:28 PM EST) Protein, Urine 42 mg/dL LAB CHEMISTRY METHOD 05/18/2024 5:14 PM EST [facility] Urine Urine specimen obtained by clean catch procedure / Unknown Non-blood Collection / Unknown 05/18/2024 4:28 PM EST 05/18/2024 4:51 PM EST Beronica MORROW LAB URINE ORDERABLES Performing Organization Address City/[facility]/ZIP Co de Phone Number [facility] [address] [place] [address], [place] [phone] * Creatinine, urine, random (05/18/2024 4:28 PM EST) Creatinine, Urine 97.0 mg/dL LAB CHEMISTRY METHOD 05/18/2024 5:18 PM EST [facility] Urine Urine specimen from urethra / Unknown Non-blood Collection / Unknown 05/18/2024 4:28 PM EST 05/18/2024 4:51 PM EST Beronica MORROW LAB URINE ORDERABLES [facility] [address] [place] [address], [place] [phone] * Sodium, urine, random (05/18/2024 4:28 PM EST) [facility] Sodium, Ur 96 mmol/L LAB CHEMISTRY METHOD 05/18/2024 5:18 PM EST [facility] Urine Urine specimen from urethra / Unknown Non-blood Collection / Unknown 05/18/2024 4:28 PM EST 05/18/2024 4:51 PM EST Beronica MORROW LAB URINE ORDERABLES [facility] [address] [place] [address], [place] [phone] * Respiratory virus panel molecular study (05/18/2024 12:20 PM EST) [facility] Adenovirus Detection by PCR Not Detected Not Detected LAB MICROBIOLOGY METHOD 05/18/2024 1:49 PM EST [facility] Influenza A PCR Not Detected Not Detected LAB MICROBIOLOGY METHOD 05/18/2024 1:49 PM EST [facility] Influenza B PCR Not Detected Not Detected LAB MICROBIOLOGY METHOD 05/18/2024 1:49 PM EST [facility] Coronavirus 229E Not Detected Not Detected LAB MICROBIOLOGY METHOD 05/18/2024 1:49 PM EST [facility] Coronavirus HKU1 Not Detected Not Detected LAB MICROBIOLOGY METHOD 05/18/2024 1:49 PM EST [facility] Coronavirus OC43 Not Detected Not Detected LAB MICROBIOLOGY METHOD 05/18/2024 1:49 PM EST [facility] Coronavirus NL63 Not Detected Not Detected LAB MICROBIOLOGY METHOD 05/18/2024 1:49 PM EST [facility] Parainfluenza Virus 1 Not Detected Not Detected LAB MICROBIOLOGY METHOD 05/18/2024 1:49 PM EST [facility] Parainfluenza Virus 2 Not Detected Not Detected LAB MICROBIOLOGY METHOD 05/18/2024 1:49 PM EST [facility] Parainfluenza Virus 3 Not Detected Not Detected LAB MICROBIOLOGY METHOD 05/18/2024 1:49 PM [facility] Parainfluenza Virus 4 Not Detected Not Detected LAB MICROBIOLOGY METHOD 05/18/2024 1:49 PM [facility] RSV PCR Not Detected Not Detected LAB MICROBIOLOGY METHOD 05/18/2024 1:49 PM [facility] Human Metapneumovirus A and B Not Detected Not Detected LAB MICROBIOLOGY METHOD 05/18/2024 1:49 PM [facility] Rhinovirus/Entero virus Not Detected Not Detected LAB MICROBIOLOGY METHOD 05/18/2024 1:49 PM [facility] Bordetella pertussis Not Detected Not Detected LAB MICROBIOLOGY METHOD 05/18/2024 1:49 PM [facility] Bordetella parapertussis Not Detected Not Detected LAB MICROBIOLOGY METHOD 05/18/2024 1:49 PM [facility] Mycoplasma pneumo by PCR Not Detected Not Detected LAB MICROBIOLOGY METHOD 05/18/2024 1:49 PM [facility] Chlamydia pneumoniae Not Detected Not Detected LAB MICROBIOLOGY METHOD 05/18/2024 1:49 PM [facility] SARS COV-2 Not Detected Not Detected LAB MICROBIOLOGY METHOD 05/18/2024 1:49 PM [facility] Swab Both anterior nares / Unknown Non-blood Collection / Unknown 05/18/2024 12:20 PM EST 05/18/2024 12:53 PM EST [facility] - 05/18/2024 1:49 PM EST Testing was performed using the [employer] Respiratory Pathogen PCR Assay. All results must [...] MORROW LAB MICROBIOLOGY - G ENERAL ORDERABLES Performing Organization Address [facility]/ZIP Co de Phone Number [facility] [address] [place] [address], [place] [phone] * (ABNORMAL) POCT Glucose, blood (05/18/2024 12:11 PM EST) [facility] Glucose POCT 111(H) 70 - 100 mg/dL 05/18/2024 12:12 PM EST [facility] Blood Capillary blood specimen / Unknown 05/18/2024 12:11 PM EST 05/18/2024 12:13 PM EST Heladio Sharma MD LAB POINT OF CARE TE ST DOCKED DEVICE UNSOLICITED RESULTS Performing Organization Address [facility]/ZIP Co de Phone Number [facility] [address] [place] [address], [place] [phone] * (ABNORMAL) Lactate (05/18/2024 10:21 AM EST) [facility] Lactate 2.7(H) 0.4 - 2.0 mmol/L LAB CHEMISTRY METHOD 05/18/2024 11:06 AM EST [facility] Blood Venous blood specimen / Unknown Venipuncture / Unknown 05/18/2024 10:21 AM EST 05/18/2024 10:37 AM EST Beronica MORROW LAB BLOOD ORDERABLES Performing Organization Address [facility]/ZIP Co de Phone Number [facility] [address] [place] [address], [place] [phone] * Mckeon urine culture tube (05/18/2024 3:32 AM EST) [facility] Extra Tube Hold for add-ons. 05/18/2024 9:01 AM EST [facility] Comment:Auto resulted. Urine Urine specimen obtained by clean catch procedure / Unknown Non-blood Collection / Unknown 05/18/2024 3:32 AM EST 05/18/2024 7:37 AM EST Scot Mario Retana MD LAB URINE ORDERABLES [facility] ([facility] [address] [place] [address], * CT Abdomen Pelvis wo Contrast (05/18/2024 [...] MD on 05/18/2024 03:16:27 Clyde Retana MD IMG CT PROCEDURES * (ABNORMAL) Urinalysis with reflex microscopic and culture (05/18/2024 12:46 AM EST) Specific [place] Urine 1.017 1.003 - 1.030 LAB URINALYSIS - AUTOMATED METHOD 05/18/2024 3:45 AM [facility] pH, Urine 5.5 5.0 - 8.0 pH LAB URINALYSIS - AUTOMATED METHOD 05/18/2024 3:45 AM [facility] Leukocytes, Urine Negative Negative LAB URINALYSIS - AUTOMATED METHOD 05/18/2024 3:45 AM [facility] Nitrite, Urine Negative Negative LAB URINALYSIS - AUTOMATED METHOD 05/18/2024 3:45 AM [facility] Protein, Urine 300(A) <=Trace mg/dL LAB URINALYSIS - AUTOMATED METHOD 05/18/2024 3:45 AM [facility] Glucose, Urine Negative Negative mg/dL LAB URINALYSIS - AUTOMATED METHOD 05/18/2024 3:45 AM [facility] Ketones, Urine Trace(A) Negative mg/dL LAB URINALYSIS - AUTOMATED METHOD 05/18/2024 3:45 AM [facility] Urobilinogen, Urine 0.2 0.2 - 1.0 mg/dL LAB URINALYSIS - AUTOMATED METHOD 05/18/2024 3:45 AM [facility] Bilirubin, Urine Negative Negative LAB URINALYSIS - AUTOMATED METHOD 05/18/2024 3:45 AM [facility] Blood, Urine Trace(A) Negative LAB URINALYSIS - AUTOMATED METHOD 05/18/2024 3:45 AM [facility] RBC, Urine 4.1(H) 0 - 4 /HPF LAB URINALYSIS - AUTOMATED METHOD 05/18/2024 3:45 AM [facility] WBC, Urine 2.3 0 - 4 /HPF LAB URINALYSIS - AUTOMATED METHOD 05/18/2024 3:45 AM [facility] Squamous Epithelial, Urine 36 0 - 60 /LPF LAB URINALYSIS - AUTOMATED METHOD 05/18/2024 3:45 AM [facility] Bacteria, Urine Negative Negative /HPF LAB URINALYSIS - AUTOMATED METHOD 05/18/2024 3:45 AM [facility] Hyaline Casts, Urine 2.9 0 - 3 /LPF LAB URINALYSIS - AUTOMATED METHOD 05/18/2024 3:45 AM [facility] Urine Urine specimen obtained by clean catch procedure / Unknown Non-blood Collection / Unknown 05/18/2024 12:46 AM EST 05/18/2024 3:36 AM EST Clyde Retana MD LAB URINE ORDERABLES Performing Organization Address City/State/[facility] Co de Phone Number [facility] [address] [place] [address], * [place] top urine tube (05/18/2024 12:46 AM EST) Extra Tube Hold for add-ons. 05/18/2024 3:04 AM [facility] Comment:Auto resulted. Urine Urine specimen obtained by clean catch procedure / Unknown Non-blood Collection / Unknown 05/18/2024 12:46 AM EST 05/18/2024 1:06 AM EST Clyde Retana MD LAB URINE ORDERABLES Performing Organization Address City/[facility]/ZIP Co de Phone Number [facility] [address] [place] [address], * Urine culture (05/18/2024 12:46 AM EST) Culture, Urine No growth 05/19/2024 10:27 AM [facility] Urine Urine specimen obtained by clean catch procedure / Unknown Non-blood Collection / Unknown 05/18/2024 12:46 AM EST 05/18/2024 1:05 AM EST Clyde Retana MD LAB MICROBIOLOGY - G ENERAL ORDERABLES Performing Organization Address [facility]/ZIP Co de Phone Number [facility] [address] [place] [address], * (ABNORMAL) Manual differential (05/18/2024 12:37 AM EST) Neutrophils % 74.0 % LAB HEMETOLOGY METHOD 5 1:39 AM [facility] Bands % 13.0 % LAB HEMETOLOGY METHOD 5 1:39 AM [facility] Lymphocytes % 10.0 % LAB HEMETOLOGY METHOD 5 1:39 AM [facility] Monocytes % 2.0 % LAB HEMETOLOGY METHOD 5 1:39 AM [facility] Eosinophils % 0.0 % LAB HEMETOLOGY METHOD 5 1:39 AM [facility] Basophils % 0.0 % LAB HEMETOLOGY METHOD 5 1:39 AM [facility] Metamyelocytes % 1.0(H) % LAB HEMETOLOGY METHOD 5 1:39 AM [facility] Neutrophils Absolute Manual 4.22 1.50 - 7.00 K/mcL LAB HEMETOLOGY METHOD 5 1:39 AM EST [facility] Bands Absolute Manual 0.74(H) 0.00 - 0.00 K/mcL LAB HEMETOLOGY METHOD 5 1:39 AM [facility] Lymphocytes Absolute 0.57(L) 1.00 - 5.00 K/mcL LAB HEMETOLOGY METHOD 5 1:39 AM EST [facility] Monocytes Absolute Manual 0.11(L) 0.20 - 1.00 K/mcL LAB HEMETOLOGY METHOD 5 1:39 AM [facility] Eosinophils Absolute Manual 0.00 0.00 - 0.50 K/mcL LAB HEMETOLOGY METHOD 5 1:39 AM [facility] Basophils Absolute Manual 0.00 0.00 - 0.20 K/mcL LAB HEMETOLOGY METHOD 5 1:39 AM [facility] Metamyelocytes Absolute Manual 0.06(H) 0.00 - 0.00 K/mcL LAB HEMETOLOGY METHOD 5 1:39 AM [facility] Rbc Morphology Consistent with indices Consistent with indices, Normal for LAB HEMETOLOGY METHOD 5 1:39 AM EST [facility] Platelet Morphology - WAM Normal Normal LAB HEMETOLOGY METHOD 5 1:39 AM [facility] Blood Venous blood specimen / Unknown Venipuncture / Unknown 05/18/2024 12:37 AM EST 05/18/2024 1:04 AM EST Clyde Retana MD LAB BLOOD ORDERABLES [facility] [address] [place] [address], * (ABNORMAL) CBC auto differential (05/18/2024 12:37 AM EST) [facility] WBC 5.7 4.8 - 10.8 K/mcL LAB HEMETOLOGY METHOD 05/18/2024 1:39 AM [facility] RBC 3.80 3.80 - 4.80 M/mcL LAB HEMETOLOGY METHOD 05/18/2024 1:39 AM [facility] Hemoglobin 11.1(L) 11.5 - 16.0 g/dL LAB HEMETOLOGY METHOD 05/18/2024 1:39 AM [facility] Hematocrit 33.2(L) 35.0 - 47.0 % LAB HEMETOLOGY METHOD 05/18/2024 1:39 AM [facility] MCV 87.6 79.0 - 98.0 FL LAB HEMETOLOGY METHOD 05/18/2024 1:39 AM [facility] MCH 29.3 27.0 - 32.0 pcg LAB HEMETOLOGY METHOD 05/18/2024 1:39 AM [facility] MCHC 33.4 32.0 - 37.0 g/dL LAB HEMETOLOGY METHOD 05/18/2024 1:39 AM [facility] RDW 13.3 11.0 - 15.0 % LAB HEMETOLOGY METHOD 05/18/2024 1:39 AM [facility] Platelets 256 130 - 400 K/mcL LAB HEMETOLOGY METHOD 05/18/2024 1:39 AM [facility] MPV 9.9 7.0 - 11.0 FL LAB HEMETOLOGY METHOD 05/18/2024 1:39 AM [facility] NRBC 0.0 <1.0 % LAB HEMETOLOGY METHOD 05/18/2024 1:39 AM [facility] NRBC Absolute 0.00 <0.10 K/mcL LAB HEMETOLOGY METHOD 05/18/2024 1:39 AM EST [facility] Blood Venous blood specimen / Unknown Venipuncture / Unknown 05/18/2024 12:37 AM EST 05/18/2024 1:04 AM EST Clyde Retana MD LAB BLOOD ORDERABLES Performing Organization Address City/[facility]/ZIP Co de Phone Number [facility] [address] [place] [address], [place] [phone] * Lipase (05/18/2024 12:37 AM EST) Lipase 48 13 - 75 unit/L LAB CHEMISTRY METHOD 05/18/2024 1:36 AM EST [facility] Blood Venous blood specimen / Unknown Venipuncture / Unknown 05/18/2024 12:37 AM EST 05/18/2024 1:04 AM EST Clyde Retana MD LAB BLOOD ORDERABLES Performing Organization Address City/[facility]/ZIP Co de Phone Number [facility] [address] [place] [address], [place] [phone] * (ABNORMAL) Magnesium (05/18/2024 12:37 AM EST) Magnesium 1.4(L) 1.9 - 2.6 mg/dL LAB CHEMISTRY METHOD 05/18/2024 1:36 AM EST [facility] Blood Venous blood specimen / Unknown Venipuncture / Unknown 05/18/2024 12:37 AM EST 05/18/2024 1:04 AM EST Clyde Retana MD LAB BLOOD ORDERABLES Performing Organization Address City/[facility]/ZIP Co de Phone Number [facility] [address] [place] [address], [place] [phone] * (ABNORMAL) Comprehensive metabolic panel (05/18/2024 12:37 AM EST) Sodium 140 133 - 145 mmol/L LAB CHEMISTRY METHOD 05/18/2024 1:36 AM [facility] Potassium 4.3 3.5 - 5.5 mmol/L LAB CHEMISTRY METHOD 05/18/2024 1:36 AM [facility] Chloride 109 96 - 110 mmol/L LAB CHEMISTRY METHOD 05/18/2024 1:36 AM [facility] CO2 20(L) 21 - 32 mmol/L LAB CHEMISTRY METHOD 05/18/2024 1:36 AM [facility] Anion Gap 11 3 - 11 LAB CHEMISTRY METHOD 05/18/2024 1:36 AM [facility] Glucose 131(H) 70 - 100 mg/dL LAB CHEMISTRY METHOD 05/18/2024 1:36 AM [facility] BUN 35(H) 5 - 25 mg/dL LAB CHEMISTRY METHOD 05/18/2024 1:36 AM [facility] Creatinine 2.57(H) 0.50 - 1.10 mg/dL LAB CHEMISTRY METHOD 05/18/2024 1:36 AM [facility] eGFR 21(L) >=60 mL/min/1. 73m2 LAB CHEMISTRY METHOD 05/18/2024 1:36 AM [facility] Comment:Calculation based on the??Chronic Kidney Disease Epidemiology Collaboration (CKD-EPI) equation refit??without adjustment for race. BUN/Creatinine Ratio 13.6 LAB CHEMISTRY METHOD 05/18/2024 1:36 AM [facility] Calcium 8.9 8.5 - 10.5 mg/dL LAB CHEMISTRY METHOD 05/18/2024 1:36 AM [facility] AST (SGOT) 46(H) 10 - 42 unit/L LAB CHEMISTRY METHOD 05/18/2024 1:36 AM [facility] ALT (SGPT) 68(H) 10 - 60 unit/L LAB CHEMISTRY METHOD 05/18/2024 1:36 AM EST [facility] Alkaline Phosphatase 78 42 - 121 unit/L LAB CHEMISTRY METHOD 05/18/2024 1:36 AM EST [facility] Total Protein 7.7 6.0 - 8.0 g/dL LAB CHEMISTRY METHOD 05/18/2024 1:36 AM EST [facility] Albumin 4.3 3.2 - 5.0 g/dL LAB CHEMISTRY METHOD 05/18/2024 1:36 AM EST [facility] Total Bilirubin 0.5 0.0 - 1.4 mg/dL LAB CHEMISTRY METHOD 05/18/2024 1:36 AM [facility] Blood Venous blood specimen / Unknown Venipuncture / Unknown 05/18/2024 12:37 AM EST 05/18/2024 1:04 AM EST Clyde Retana MD LAB BLOOD ORDERABLES [facility] [address] [place] [address], * ECG-Annotated (05/18/2024) Provider Onbase ECG ORDERABLES documented in this encounter Visit Diagnoses Diagnosis JUSTINO (acute kidney injury) ([facility]/HCC)- Primary Generalized abdominal pain Abdominal pain, generalized Acute kidney injury ([facility]/HCC) documented in this encounter Admitting Diagnoses Diagnosis JUSTINO (acute kidney injury) ([facility]/HCC) documented in this encounter Administered Medications Inactive Administered Medications - up to 3 most recent administrations Medication Order MAR Action Action Date Dose Rate Site acetaminophen (TYLENOL) tablet 650 mg 650 mg, oral, Every 6 hours PRN, mild pain, moderate pain, headaches, Starting on Fri05/18/24 at 0947 Given 05/20/2024 6:09 AM EST 650 mg Given 05/19/2024 8:58 PM EST 650 mg Given 05/19/2024 8:28 AM EST 650 mg amLODIPine (NORVASC) tablet 10 mg 10 mg, oral, Daily, First dose on Fri05/18/24 at 0940 Given 05/20/2024 9:17 AM EST 10 mg Given 05/19/2024 8:21 AM EST 10 mg Given 05/18/2024 10:59 AM EST 10 mg colchicine (MITIGARE) capsule 0.6 mg 0.6 mg, oral, Every morning, First dose on Fri05/18/24 at 1030, HAZARDOUS Drug Precautions - Low Risk (Category A/NIOSH Group 3) Reproductive Risk Only: - Single pair of ASTM standard D6978 certified chemotherapy gloves - Eye protection (goggles or face shield) required only with a potential for facial contact (i.e. concern for spitting or vomiting of the dose during or after administration) - Staff at reproductive risk (actively trying to conceive, or may be become , and ): chemo certified gown and an N95 respirator required when crushing meds (crushing of tabs allowed only in closed pouches) or opening of capsules only for allowable dosage forms Given 05/20/2024 6:10 AM EST 0.6 mg Given 05/19/2024 6:31 AM EST 0.6 mg Given 05/18/2024 10:59 AM EST 0.6 mg dextrose (D50W) 50% injection 12.5 g 12.5 g, intravenous, Every 15 min PRN, low blood sugar, moderate hypoglycemia *Patient is Unconscious, NPO, unable to swallow: BG 54 - 69 mg/dl*, Starting on Fri05/18/24 at 0939 dextrose (D50W) 50% injection 25 g 25 g, intravenous, Every 15 min PRN, low blood sugar, severe hypoglycemia *Patient is Unconscious, NPO, unable to swallow: BG LESS than 54 mg/dL*, Starting on Fri05/18/24 at 0939 dextrose 15 gram/60 mL oral solution 15 g 15 g, oral, Every 15 min PRN, low blood sugar, hypoglycemia *Patient conscious AND able to drink and swallow safely*, Starting on Fri05/18/24 at 0939 dextrose 15 gram/60 mL oral solution 30 g 30 g, oral, Every 15 min PRN, low blood sugar, hypoglycemia *Patient conscious AND able to drink and swallow safely*, Starting on Fri05/18/24 at 0939 famotidine (PEPCID) tablet 20 mg 20 mg, oral, Daily, First dose on Fri05/18/24 at 1030 Given 05/20/2024 9:17 AM EST 20 mg Given 05/19/2024 8:21 AM EST 20 mg Given 05/18/2024 11:00 AM EST 20 mg Glucagon HCl (rDNA) injection 1 mg 1 mg, intramuscular, Once as needed, low blood sugar, severe hypoglycemia, Starting on Fri05/18/24 at 0939, For 1 dose heparin (UFH) injection 5,000 Units 5,000 Units, subcutaneous, Every 12 hours scheduled, First dose on Fri05/18/24 at 1155, Enter Indication for use of heparin (UFH) instead of enoxaparin (LOVENOX): (free text): justino, Indication: VTE Prophylaxis, Indications: Prophylaxis of Venous Thromboembolism Given 05/20/2024 9:17 AM EST 5,000 Units Left Lower Abdomen Given 05/19/2024 8:59 PM EST 5,000 Units L eft Lower Abdomen Given 05/19/2024 8:21 AM EST 5,000 Units L eft Lower Abdomen insulin lispro injection 1-6 Units 1-6 Units, subcutaneous, 3 times daily before meals, First dose on Fri05/18/24 at 1130, Indication: Total Daily Dose (TDD) LESS than 40 units Correction Scale: Low Dose Administer with meal and/or mealtime dose of insulin to correct high blood glucose If mealtime insulin dose not given (e.g. patient NPO or not eating), still administer correction factor for high blood glucose ketorolac (TORADOL) injection 15 mg 15 mg, intravenous, Once, On Fri05/18/24 at 0104, For 1 dose Given 05/18/2024 1:25 AM EST 15 mg lactated Ringer's infusion 100 mL/hr, intravenous, Continuous, Starting on Fri05/18/24 at 0951, For 10 hours Rate/Dose Verify 05/18/2024 3:42 PM EST 100 mL/hr 100 mL/hr Rate/Dose Verify 05/18/2024 1:15 PM EST 100 mL/hr 100 mL/ hr New Bag 05/18/2024 10:52 AM EST 100 mL/hr 100 mL/hr loratadine (CLARITIN) tablet 10 mg 10 mg, oral, Daily, First dose on Fri05/18/24 at 0940 Given 05/20/2024 9:17 AM EST 10 mg Given 05/19/2024 8:21 AM EST 10 mg Given 05/18/2024 10:59 AM EST 10 mg magnesium sulfate 2 gram/50 mL (4 %) IVPB 2 g 2 g, intravenous, at 25 mL/hr, Administer over 2 Hours, Once, On Fri05/18/24 at 1030, For 1 dose New Bag 05/18/2024 10:52 AM EST 2 g 25 mL/hr ondansetron (PF) (ZOFRAN) injection 4 mg 4 mg, intravenous, Once, On Fri05/18/24 at 0104, For 1 dose Given 05/18/2024 1:25 AM EST 4 mg ondansetron (PF) (ZOFRAN) injection 4 mg 4 mg, intravenous, Every 6 hours PRN, nausea, vomiting, Starting on Fri05/18/24 at 1154 oxyCODONE (ROXICODONE) immediate release tablet 10 mg 10 mg, oral, Every 4 hours PRN, severe pain, Starting on Fri05/19/24 at 1102 oxyCODONE (ROXICODONE) immediate release tablet 5 mg 5 mg, oral, Every 4 hours PRN, moderate pain, Starting on Fri05/19/24 at 1102 Given 05/20/2024 6:19 AM EST 5 mg Given 05/19/2024 2:29 PM EST 5 mg pantoprazole (PROTONIX) EC tablet 40 mg 40 mg, oral, Every morning before breakfast, First dose on Fri05/19/24 at 0700, Do not crush, chew, or split. Given 05/20/2024 6:10 AM EST 40 mg Given 05/19/2024 6:31 AM EST 40 mg pravastatin (PRAVACHOL) tablet 40 mg 40 mg, oral, Nightly, First dose on Fri05/18/24 at 2100 Given 05/19/2024 8:58 PM EST 40 mg Given 05/18/2024 8:53 PM EST 40 mg senna (SENOKOT) tablet 8.6 mg 8.6 mg (1 tablet), oral, Daily, First dose on Fri05/18/24 at 0940 Given 05/20/2024 9:17 AM EST 8.6 mg Given 05/19/2024 8:21 AM EST 8.6 mg Given 05/18/2024 10:59 AM EST 8.6 mg sodium chloride 0.9 % bolus 1,000 mL 1,000 mL, intravenous, at 1,000 mL/hr, Administer over 1 Hours, Once, On Fri05/18/24 at 0607, For 1 dose New Bag 05/18/2024 6:10 AM EST 1,000 mL 1000 mL/hr sodium chloride 0.9 % infusion 125 mL/hr, intravenous, Continuous, Starting on Fri05/18/24 at 0104 New Bag 05/20/2024 8:57 AM EST 125 mL/hr 125 mL/hr New Bag 05/20/2024 12:16 AM EST 125 mL/hr 125 mL/hr New Bag 05/19/2024 4:15 PM EST 125 mL/hr 125 mL/hr sucralfate (CARAFATE) tablet 1 g 1 g, oral, 3 times daily, First dose on Fri05/18/24 at 0940 Given 05/20/2024 2:19 PM EST 1 g Given 05/20/2024 9:17 AM EST 1 g Given 05/19/2024 8:59 PM EST 1 g traMADoL (ULTRAM) tablet 50 mg 50 mg, oral, Every 6 hours PRN, severe pain, Starting on Fri05/18/24 at 0939, CrCl LESS than 30 mL/min = q12h PRN dosing interval. Max 200mg daily Given 05/19/2024 10:09 AM EST 50 mg Given 05/19/2024 3:18 AM EST 50 mg Given 05/18/2024 6:57 PM EST 50 mg documented in this encounter Discontinued Medications Medication Sig Discontinue Reason Start Date End Da te acetaminophen (TYLENOL) 500 mg tablet Take 2 tablets (1,000 mg total) by mouth every 8 (eight) hours if needed for mild pain. Entered in Error 05/18/2024 aluminum-magnesium hydroxide-simethicone (MAALOX MAX) 400-400-40 mg/5 mL suspension 4 (four) times a day (before meals and nightly). Entered in Error 05/18/2024 atorvastatin (LIPITOR) 20 mg tablet Take 1 tablet (20 mg total) by mouth at bedtime. Entered in Error 05/18/2024 canagliflozin (INVOKANA) 100 mg tablet Take 1 tablet (100 mg total) by mouth 1 (one) time each day. Entered in Error 05/18/2024 cefuroxime (CEFTIN) 500 mg tablet Take 1 tablet (500 mg total) by mouth 2 (two) times a day. Entered in Error 05/18/2024 cholecalciferol (VITAMIN D-3) 25 mcg (1,000 unit) tablet Take 40,000 tablets (40,000,000 Units total) by mouth 1 (one) time each day. Entered in Error 05/18/2024 citalopram (CeleXA) 10 mg tablet Take 1 tablet (10 mg total) by mouth 1 (one) time each day in the morning. Entered in Error 05/18/2024 cyanocobalamin (VITAMIN B-12) 1,000 mcg/mL injection Inject 1 mL (1,000 mcg total) into the shoulder, thigh, or buttocks every 30 (thirty) days. Entered in Error 05/18/2024 Dextran 70-Hypromellose, PF, 0.1-0.3 % dropperette Administer 1 each into affected eye(s) 3 (three) times a day. 1 DROP IN BOTH EYES 3 TIMES DAILYL Entered in Error 05/18/2024 diclofenac (VOLTAREN) 1 % topical gel Apply topically 2 (two) times a day. Entered in Error 05/18/2024 dicyclomine (BENTYL) 20 mg tablet Take 1 tablet (20 mg total) by mouth 4 (four) times a day (before meals and nightly). Entered in Error 05/18/2024 ferrous sulfate 325 mg (65 mg elemental iron) tablet Take 1 tablet (325 mg total) by mouth at bedtime. Entered in Error 05/18/2024 fluticasone HFA (FLOVENT HFA) 110 mcg/actuation inhaler Inhale 1 puff by mouth 2 (two) times a day. Rinse mouth with water after use to reduce aftertaste and incidence of candidiasis. Do not swallow. Entered in Error 05/18/2024 folic acid (FOLVITE) 1 mg tablet Take 1 tablet (1 mg total) by mouth 1 (one) time each day. Entered in Error 05/18/2024 ketotifen (ZADITOR) 0.025 % ophthalmic solution 1 drop every 12 (twelve) hours. INTO AFFECTED EYE Entered in Error 05/18/2024 lidocaine (LIDODERM) 5 % patch Apply 1 patch topically at bedtime. Remove & discard patch within 12 hours or as directed by MD. Entered in Error 05/18/2024 lisinopriL (PRINIVIL,ZESTRIL) 5 mg tablet Take 1 tablet (5 mg total) by mouth 1 (one) time each day. Entered in Error 05/18/2024 loperamide (IMODIUM) 2 mg capsule Take 1 capsule (2 mg total) by mouth 4 (four) times a day if needed for diarrhea. Entered in Error 05/18/2024 melatonin 3 mg tablet Take 1 tablet (3 mg total) by mouth at bedtime. Entered in Error 05/18/2024 mirtazapine (REMERON) 15 mg tablet Take 1 tablet (15 mg total) by mouth at bedtime. Entered in Error 05/18/2024 xmhrtttc-wenwztiuk-ojqpp cortisone (CORTISPORIN) otic solution 3 drops 4 (four) times a day. Entered in Error 05/18/2024 ondansetron ODT (ZOFRAN-ODT) 4 mg disintegrating tablet Dissolve 1 tablet (4 mg total) on top of the tongue every 8 (eight) hours if needed for nausea or vomiting. Entered in Error 05/18/2024 polyvinyl alcohol (ARTIFICIAL TEARS) 1.4 % ophthalmic solution Administer 1 drop into both eyes 2 (two) times a day. Entered in Error 05/18/2024 ruxolitinib (JAKAFI) 5 mg tablet Take 1 tablet (5 mg total) by mouth 1 (one) time each day Entered in Error 05/18/2024 tamsulosin (FLOMAX) 0.4 mg 24 hr capsule Take 1 capsule (0.4 mg total) by mouth at bedtime. Capsules should be taken 30 minutes following the same meal each day. Entered in Error 05/18/2024 terazosin (HYTRIN) 1 mg capsule Take 1 capsule (1 mg total) by mouth at bedtime. Entered in Error 05/18/2024 tolterodine LA (DETROL LA) 4 mg 24 hr capsule Take 1 capsule (4 mg total) by mouth 1 (one) time each day in the morning. Do not crush, chew, or split. Entered in Error 05/18/2024 amLODIPine (NORVASC) 2.5 mg tablet Take 4 tablets (10 mg total) by mouth 1 (one) time each day. 05/20/2024 fluticasone propionate (FLONASE) 50 mcg/actuation nasal spray Administer 12 sprays into each nostril 1 (one) time each day. Shake gently. Before first use, prime pump. After use, clean tip and replace cap. 05/20/2024 hydroCHLOROthiazide 12.5 mg tablet Take 1 tablet (12.5 mg total) by mouth 1 (one) time each day. Stop Taking at Discharge 05/20/2024 traMADoL (ULTRAM) 50 mg tablet Take 1 tablet (50 mg total) by mouth every 6 (six) hours if needed for severe pain. Max Daily Amount: 200 mg Stop Taking at Discharge 05/20/2024 losartan (COZAAR) 25 mg tablet Take 1 tablet (25 mg total) by mouth 1 (one) time each day. Stop Taking at Discharge 05/20/2024 documented as of this encounter Historical Medications * This list may reflect changes made after this encounter. Medication Sig Dispensed Refills Start Date End Date losartan (COZAAR) 25 mg tablet Take 1 tablet (25 mg total) by mouth 1 (one) time each day. 05/20/2024 added in this encounter Active and Recently Administered Medications Times are shown in EST. Scheduled Medication Order 05/18/2024 05/19/2024 05/20/2024 amLODIPine (NORVASC) tablet 10 mg 10 mg, oral, Daily, First dose on Fri05/18/24 at 0940 1059 (Given - Provider: Amrit Villanueva RN) 0821 (Given - Provider: Jayda Hoffman RN) 0917 (Given - Provider: Jayda Hoffman RN) colchicine (MITIGARE) capsule 0.6 mg 0.6 mg, oral, Every morning, First dose on Fri05/18/24 at 1030, HAZARDOUS Drug Precautions - Low Risk (Category A/NIOSH Group 3) Reproductive Risk Only: - Single pair of ASTM standard D6978 certified chemotherapy gloves - Eye protection (goggles or face shield) required only with a potential for facial contact (i.e. concern for spitting or vomiting of the dose during or after administration) - Staff at reproductive risk (actively trying to conceive, or may be become , and ): chemo certified gown and an N95 respirator required when crushing meds (crushing of tabs allowed only in closed pouches) or opening of capsules only for allowable dosage forms 1059 (Given - Provider: Amrit Villanueva RN) 0631 (Given - Provider: Melisa Paige RN) 0610 (Given - Provider: Jina Dominguez RN) famotidine (PEPCID) tablet 20 mg 20 mg, oral, Daily, First dose on Fri05/18/24 at 1030 1100 (Given - Provider: Amrit Villanueva RN) 0821 (Given - Provider: Jayda Hoffman RN) 0917 (Given - Provider: Jayda Hoffman RN) heparin (UFH) injection 5,000 Units 5,000 Units, subcutaneous, Every 12 hours scheduled, First dose on Fri05/18/24 at 1155, Enter Indication for use of heparin (UFH) instead of enoxaparin (LOVENOX): (free text): justino, Indication: VTE Prophylaxis, Indications: Prophylaxis of Venous Thromboembolism 1220 (Given - Provider: Gogo Larkin RN)2053 (Given - Provider: Gogo Larkin RN) 0821 (Given - Provider: Jayda Hoffman, NEGAR)2058 (Given - Provider: Jina Dominguez RN) 0917 (Given - Provider: Jayda Hoffman RN) insulin lispro injection 1-6 Units 1-6 Units, subcutaneous, 3 times daily before meals, First dose on Fri05/18/24 at 1130, Indication: Total Daily Dose (TDD) LESS than 40 units Correction Scale: Low Dose Administer with meal and/or mealtime dose of insulin to correct high blood glucose If mealtime insulin dose not given (e.g. patient NPO or not eating), still administer correction factor for high blood glucose 1213 (Not Given - Provider: Gogo Larkin RN - Reason: Contraindicated - Comment: blood sugar 111)1649 (Not Given - Provider: Gogo Larkin RN - Reason: Contraindicated - Comment: blood sugar < 150) 0839 (Not Given - Provider: Jayda Hoffman RN - Reason: Contraindicated - Comment: blood glucose normal limits)1152 (Not Given - Provider: Jayda Hoffman RN - Reason: Contraindicated - Comment: blood glucose in normal limits)1617 (Not Given - Provider: Jayda Hfofman RN - Reason: Contraindicated - Comment: blood glucose in normal limits) 0829 (Not Given - Provider: Jayda Hoffman RN - Reason: Contraindicated)1209 (Not Given - Provider: Jayda Hoffman RN - Reason: Contraindicated - Comment: blood glucose in normal limits)1630 (Canceled Entry - Provider: Automatic Discharge Provider - Comment: Automatically canceled at discontinue of medication order) ketorolac (TORADOL) injection 15 mg (COMPLETED) 15 mg, intravenous, Once, On Fri05/18/24 at 0104, For 1 dose 0125 (Given - Provider: Scarlet Flood RN) loratadine (CLARITIN) tablet 10 mg 10 mg, oral, Daily, First dose on Fri05/18/24 at 0940 1059 (Given - Provider: Amrit Villanueva RN) 0821 (Given - Provider: Jayda Hoffman RN) 0917 (Given - Provider: Jayda Hoffman RN) losartan (COZAAR) tablet 25 mg 25 mg, oral, Daily, First dose on Fri05/18/24 at 0940, On hold since Fri05/18/2024 at 0939 until manually unheld 0939 (Held by provider - Provider: ODALYS Mckeon - Reason: Other - Comment: justino)0940 (Dose Auto Held) 0900 (Dose Auto Held) 0900 (Dose Auto Held)1754 (Unheld by provider - Provider: Automatic Discharge Provider) magnesium sulfate 2 gram/50 mL (4 %) IVPB 2 g (COMPLETED) 2 g, intravenous, at 25 mL/hr, Administer over 2 Hours, Once, On Fri05/18/24 at 1030, For 1 dose 1052 (New Bag - Provider: Amrit Villanueva, RN)1315 (Stopped - Provider: Gogo Larkin, NEGAR) ondansetron (PF) (ZOFRAN) injection 4 mg (COMPLETED) 4 mg, intravenous, Once, On Fri05/18/24 at 0104, For 1 dose 0125 (Given - Provider: Scarlet Flood, NEGAR) pantoprazole (PROTONIX) EC tablet 40 mg 40 mg, oral, Every morning before breakfast, First dose on Fri05/19/24 at 0700, Do not crush, chew, or split. 0631 (Given - Provider: Melisa Paige RN) 0610 (Given - Provider: Jina Dominguez, NEGAR) pravastatin (PRAVACHOL) tablet 40 mg 40 mg, oral, Nightly, First dose on Fri05/18/24 at 2100 205 (Given - Provider: Gogo Larkin RN) 2057 (Given - Provider: Jina Dominguez, NEGAR) senna (SENOKOT) tablet 8.6 mg 8.6 mg (1 tablet), oral, Daily, First dose on Fri05/18/24 at 0940 1059 (Given - Provider: Amrit Villanueva, NEGAR) 0821 (Given - Provider: Jayda Hoffman, NEGAR) 0917 (Given - Provider: Jayda Hoffman RN) sodium chloride 0.9 % bolus 1,000 mL (COMPLETED) 1,000 mL, intravenous, at 1,000 mL/hr, Administer over 1 Hours, Once, On Fri05/18/24 at 0607, For 1 dose 0610 (New Bag - Provider: Scarlet Flood RN)0839 (Stopped - Provider: Bijal Cole RN) sucralfate (CARAFATE) tablet 1 g 1 g, oral, 3 times daily, First dose on Fri05/18/24 at 0940 1100 (Given - Provider: Amrit Villanueva RN)1422 (Given - Provider: Gogo Larkin, NEGAR)205 (Given - Provider: Gogo Larkin, NEGAR) 0821 (Given - Provider: Jayda Hoffman, NEGAR)1429 (Given - Provider: Jayda Hoffman RN)205 (Given - Provider: Jina Dominguez RN) 0917 (Given - Provider: Jayda Hoffman RN)1419 (Given - Provider: Jayda Hoffman RN) Continuous Medication Order 05/18/2024 05/19/2024 05/20/2024 lactated Ringer's infusion () 100 mL/hr, intravenous, Continuous, Starting on Fri05/18/24 at 0951, For 10 hours 1052 (New Bag - Provider: Amrit Villanueva RN)1315 (Rate/Dose Verify - Provider: Gogo Larkin, NEGAR)1542 (Rate/Dose Verify - Provider: Gogo Larkin, RN)2055 (Stopped - Provider: Gogo Larkin RN) sodium chloride 0.9 % infusion 125 mL/hr, intravenous, Continuous, Starting on Fri05/18/24 at 0104 0125 (New Bag - Provider: Scarlet Flood RN)0541 (Rate/Dose Verify - Provider: Scarlet Flood, NEGAR)1101 (Stopped - Provider: Amrit Villanueva RN) 0631 (New Bag - Provider: Melisa Paige RN)1615 (New Bag - Provider: Jayda Hoffman RN) 0016 (New Bag - Provider: Jina Dominguez, NEGAR)0857 (New Bag - Provider: Jayda Hoffman RN)1754 (Due: Stopped) PRN Medication Order 05/18/2024 05/19/2024 05/20/2024 acetaminophen (TYLENOL) tablet 650 mg 650 mg, oral, Every 6 hours PRN, mild pain, moderate pain, headaches, Starting on Fri05/18/24 at 0947 1100 (Given - Provider: Amrit Villanueva RN)2316 (Given - Provider: Macrina Hernández RN) 0828 (Given - Provider: Jayda Hoffman, NEGAR)2058 (Given - Provider: Jina Dominguez, NEGAR) 0609 (Given - Provider: Jina Dominguez, NEGAR) albuterol 2.5 mg /3 mL (0.083 %) nebulizer solution 2.5 mg 2.5 mg, nebulization, Every 8 hours PRN, wheezing, Starting on Fri05/18/24 at 0939 dextrose (D50W) 50% injection 12.5 g 12.5 g, intravenous, Every 15 min PRN, low blood sugar, moderate hypoglycemia *Patient is Unconscious, NPO, unable to swallow: BG 54 - 69 mg/dl*, Starting on Fri05/18/24 at 0939 dextrose (D50W) 50% injection 25 g 25 g, intravenous, Every 15 min PRN, low blood sugar, severe hypoglycemia *Patient is Unconscious, NPO, unable to swallow: BG LESS than 54 mg/dL*, Starting on Fri05/18/24 at 0939 dextrose 15 gram/60 mL oral solution 15 g 15 g, oral, Every 15 min PRN, low blood sugar, hypoglycemia *Patient conscious AND able to drink and swallow safely*, Starting on Fri05/18/24 at 0939 dextrose 15 gram/60 mL oral solution 30 g 30 g, oral, Every 15 min PRN, low blood sugar, hypoglycemia *Patient conscious AND able to drink and swallow safely*, Starting on Fri05/18/24 at 0939 Glucagon HCl (rDNA) injection 1 mg 1 mg, intramuscular, Once as needed, low blood sugar, severe hypoglycemia, Starting on Fri05/18/24 at 0939, For 1 dose ondansetron (PF) (ZOFRAN) injection 4 mg 4 mg, intravenous, Every 6 hours PRN, nausea, vomiting, Starting on Fri05/18/24 at 1154 oxyCODONE (ROXICODONE) immediate release tablet 10 mg 10 mg, oral, Every 4 hours PRN, severe pain, Starting on Fri05/19/24 at 1102 oxyCODONE (ROXICODONE) immediate release tablet 5 mg 5 mg, oral, Every 4 hours PRN, moderate pain, Starting on Fri05/19/24 at 1102 1429 (Given - Provider: Jayda Hoffman RN) 0619 (Given - Provider: Jina Dominguez RN) traMADoL (ULTRAM) tablet 50 mg (CANCELED) 50 mg, oral, Every 6 hours PRN, severe pain, Starting on Fri05/18/24 at 0939, CrCl LESS than 30 mL/min = q12h PRN dosing interval. Max 200mg daily 1100 (Given - Provider: Amrit Villanueva RN)6297 (Given - Provider: Sheba Vazquez RN) 0318 (Given - Provider: Melisa Paige, NEGAR)1009 (Given - Provider: Jayda Hoffman, NEGAR) documented in this encounter Orders Medications Ordered That Anselmo ht Not Have Been Administered Count Last Ordered Date First Ordered Date oxyCODONE (ROXICODONE) immed iate release tablet 10 mg 1 05/19/2024 albuterol 2.5 mg /3 mL (0.08 3 %) nebulizer solution 2.5 mg 1 05/18/2024 dextrose (D50W) 50% injection 12.5 g 1 05/05 dextrose (D50W) 50% injection 25 g 1 2024 dextrose 15 gram/60 mL oral solution 15 g 1 05/18/2024 dextrose 15 gram/60 mL oral solution 30 g 1 05/18/2024 Glucagon HCl (rDNA) injection 1 mg 1 2024 insulin lispro injection 1-6 Units 1 2024 losartan (COZAAR) tablet 25 mg 1 05/18/2024 ondansetron (PF) (ZOFRAN) injection 4 mg 1 05/18/2024 Lab Orders Without Results Count Last Ordered D ate First Ordered Date POCT GLUCOSE, BLOOD 8 05/20/2024 05/18/19 25 Nursing Count Last Ordered Date First Orde red Date FOLLOW UP PRIMARY PHYSICIAN 1 05/20/2024 IV Count Last Ordered Date First Orde red Date INSERT PERIPHERAL IV 1 05/18/2024 Admission Count Last Ordered Date First Orde red Date ADMIT TO INPATIENT ADMITTING REQ 1 05/18/19 25 Transfer Count Last Ordered Date First Orde red Date TRANSFER PATIENT TO NEW UNIT 1 05/19/2024 ED TO FLOOR BED REQUEST 1 05/18/2024 Discharge Count Last Ordered Date First Orde red Date DISCHARGE PATIENT 1 05/20/2024 documented in this encounter Additional Health Concerns Infection Onset Date Last Indicated Resolved Time Respiratory Rule-Out 05/18/2024 05/18/2024 025 1:49 PM EST COVID-19 Rule-Out 05/18/2024 05/18/2024 05/18/2024 1:49 PM EST Gastrointestinal Rule-Out 05/19/2024 05/20/2024 8:52 AM EST Norovirus 05/20/2024 05/20/2024 documented as of this encounter Care Teams Senior Underwriter Relationship Specialty Start Date End Date Kalpana Baptiste MD [address] [place] [id number] PCP - General Internal Medicine 05/18/24 documented as of this encounter
--- OUTSIDE RECORDS SUMMARY | 2024-06-04 10:39 | XMS_ITS | Encounter Summary ---
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 States she has been taking as prescribed, last dose taken was 4 days ago,she has run out. She denies smoking cigarettes, ETOH use, Illicit drug use and marijuana use. Currently rates her pain a 9and states medication is 75% effective at alleviating her pain. Current pain sites are her lower back and both of her knee's. Pt cancelled SHEET METAL HELPER RV appt 03/22/24. O: SCT Tier 2. Pt currently prescribed Tramadol 50mg Q6hr PRN. ESTHETICIAN/SKIN THERAPIST verified today. Rx last filled on 05/06/24. Pill count not performed. Pt states she hasn't received her medication since April. Call placed to [facility], pharmacy states her Tramadol from 05/06/24 is being delivered today. Inquired why its just being delivered today, it was dated for 05/06/24, pharmacy stated they didn't know. Requested they not hold her narcotic refill and send as prescribed. UTOX completed. Negative for all substances: AMP, BAR, BUP, BZO, SENIA, FTY, MDMA, MET, MOP, MTD, OXY, PCP, TCA, THC. UTOX as expected. BPI updated today. Pain severity score of 8.5, activity interference score of 9.6. Previous BPIcompleted 12/09/23 with pain severity score of 7.5, activity interference score of 3. Will update PCPwith BPI scoring. Last PCP visit was 05/06/24. A: SHEET METAL HELPER Contract Revisit: Chronic Opioid use related to pain. P: Pt to continue taking medication only as prescribed; Next SHEET METAL HELPER RV appointment scheduled for 08/12/24 @ 11:30am, F/U sooner PRN. Appointment reminder given. Pt verbalized understanding and agreed to plan. documented in this encounter Plan of Treatment Upcoming Encounters Date Type Department Care Team (Late st Contact Info) Description 06/22/2024 1:00 PM EST Office Visit [facility] OPTOMETRY [address] [place] [address] Beata Holt, OD 230 [place] [address] 08/05/2024 1:00 PM EDT Office Visit [facility] MEDICINE [address] [place] [address] Kalpana Baptiste MD 230 [place] [address] 08/12/2024 11:30 AM EDT Clinical Support [facility] MEDICINE [address] [place] [address] Amanda Waldrop RN documented as of this encounter Procedures Procedure Name Priority Date/Time Associated Diagnosis Comments POCT MARY-14 URINE DRUG SCREEN Routine 05/13/2024 9:14 AM EST Chronic gouty arthritis documented in this encounter Results * POCT MARY-14 Urine Drug Screen (05/13/2024 9:14 AM EST) Urine Urine specimen obtained by clean catch procedure / Unknown 05/13/2024 9:14 AM EST Narrative Amanda Waldrop, NEGAR - 05/13/2024 9:14 AM EST UTOX cup Lot#[id number] Exp. 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
--- OUTSIDE RECORDS SUMMARY | 2024-06-04 10:39 | XMS_ITS | Encounter Summary ---
Author Organization [employer] Address [address] [facility] [address] 7[address] [place] [address] Care Team Providers Care Caving Guide Name Role Phone Kalpana Baptiste MD Primary Care Provide r Reason for Visit * Reason Onset Date Comments Reschedule NEONATAL CRITICAL CARE NURSE RV appt she cancelled 03/22/24 Encounter Details Date Type Department Care Team ([facility] Contact Info) Description 05/07/2024 Telephone [facility] MEDICINE [address] [place] [address] Amanda Waldrop, NEGAR Reschedule NEONATAL CRITICAL CARE NURSE RV appt she cancelled 03/22/24 Social History Tobacco Use Types Packs/Day Years [...] Telephone Encounter - Amanda Waldrop RN - 05/10/2024 1:21 PM EST Pt cancelled NEONATAL CRITICAL CARE NURSE appt 03/22/24 and has not rescheduled. Had left previous voicemail to call and reschedule appt, with no response. TC via [id number], no answer. Left 3rd message asking her to call back to reschedule her NEONATAL CRITICAL CARE NURSE appt. Will update PCP. * Telephone Encounter - Amanda Waldrop RN - 05/07/2024 12:03 PM EST Pt cancelled NEONATAL CRITICAL CARE NURSE appt 03/22/24 and has not rescheduled. Had left previous voicemail to call and reschedule appt, with no response. TC via [id number], no answer. L/M asking her to call back to reschedule her NEONATAL CRITICAL CARE NURSE appt. documented in this encounter Plan of Treatment Upcoming Encounters Date Type Department Care Team (Late st Contact Info) Description 06/22/2024 1:00 PM EST Office Visit [facility] OPTOMETRY [address] [place] [address] Jonathon, Beata, OD [address] [place] [address] 08/05/2024 1:00 PM EDT Office Visit [address] [phone] Kalpana Baptiste MD 230 [place] [address] 08/12/2024 11:30 AM EDT Clinical Support [address] [address] Amanda Waldrop, NEGAR documented as of this encounter Visit Diagnoses Not on filedocumented in this encounter Additional Health Concerns Assessment Noted Time PHQ-9 Depression Total Score: 0 05/06/19 25 2:15 PM EST documented as of this encounter Care Teams Caving Guide Relationship Specialty Start Date End Date Kalpana Baptiste MD [address] [place] [phone] PCP - General Family Medicine 06/14/20 documented as of this encounter
--- OUTSIDE RECORDS SUMMARY | 2024-06-04 10:39 | XMS_ITS | Encounter Summary ---
Author Organization [employer] Address [address] [facility] [address] 7t [place] [address] Care Team Providers Care Home Health Aid Name Role Phone Kalpana Baptiste MD Primary Care Provide r Reason for Visit * Reason Comments Med Refill Encounter Details Date Type Department Care Team ([facility] st Contact Info) Description 04/21/2023 Refill [facility] MEDICINE 230 [place], [place] [phone] Kalpana Baptiste MD 230 [place] [address] Chronic tension-type headache, not intractable Social History [...] EST Office Visit [facility] OPTOMETRY [address] [place], [place] [phone] Jonathon, Beata, OD 230 [place] [address] 08/05/2024 1:00 PM EDT Office Visit [facility] MEDICINE [address] [place] [address] Kalpana Baptiste MD 230 [place] [address] 08/12/2024 11:30 AM EDT Clinical Support [facility] MEDICINE [address] [place] [address] Amanda Waldrop RN documented as of this encounter Visit Diagnoses Diagnosis Chronic tension-type headache, not intractable Chronic tension type headache documented in this encounter Additional Health Concerns Assessment Noted Time PHQ-9 Depression Total Score: 0 08/22/19 23 10:06 AM EDT documented as of this encounter Care Teams Home Health Aid Relationship Specialty Start Date End Date Kalpana Baptiste MD [address] [place], [place] [phone] PCP - General Family Medicine 06/14/20 documented as of this encounter
== END 2024-06-04 09:57 | disposition home or self-care (01) ==
LOC: HO.US 09:56
PROVIDERS: PCP Internal Medicine; Visit Provider Internal Medicine
DX: R79.89 Other specified abnormal findings of blood chemistry (principal)
CPT/HCPCS: 76700

== ENCOUNTER → 2024-06-04 09:57 | Outpatient (BNV) | payer MEDICAID, SELFPAY | PROVIDERS: PCP Internal Medicine; Visit Provider Radiology Diagnostic Radiology | DX: K76.0 Fatty (change of) liver, not elsewhere classified (principal); R16.0 Hepatomegaly, not elsewhere classified | CPT/HCPCS: 76700 ==

== ENCOUNTER 2024-07-09 09:43 | Outpatient (REF) | payer MEDICAID, SELFPAY ==
--- OUTSIDE RECORDS SUMMARY | 2024-07-09 10:36 | XMS_ITS | Encounter Summary ---
Author Organization [employer] Address [address] [facility] [address] 7[address] [place] [address] Care Team Providers Care Transfer And Line Up Worker Name Role Phone Kalpana Baptiste MD Primary Care Provide r Reason for Visit * Reason Comments Med Refill Encounter Details Date Type Department Care Team ([facility] st Contact Info) Description 07/24/2023 Refill [facility] 230 [place], [place] [phone] Caryl Biggs MD 230 [place] [address] Chronic tension-type headache, not intractable Social History [...] Care Team (Late st Contact Info) Description 08/05/2024 1:00 PM EDT Office Visit [facility] MEDICINE [address] [place] [address] Kalpana Baptiste MD [address] [place] [address] 08/12/2024 11:30 AM EDT Clinical Support [address] [address] Amanda Waldrop RN documented as of this encounter Visit Diagnoses Diagnosis Chronic tension-type headache, not intractable Chronic tension type headache documented in this encounter Additional Health Concerns Assessment Noted Time PHQ-9 Depression Total Score: 0 08/22/19 23 10:06 AM EDT documented as of this encounter Care Teams Transfer And Line Up Worker Relationship Specialty Start Date End Date Kalpana Baptiste MD [address] [place] [phone] PCP - General Family Medicine 06/14/20 documented as of this encounter
--- OUTSIDE RECORDS SUMMARY | 2024-07-09 10:36 | XMS_ITS | Encounter Summary ---
Author Organization [employer] Address [address] [facility] [address] 7[address] [place] [address] Care Team Providers Care Precision Machining Instructor Name Role Phone Kalpana Baptiste MD Primary Care Provide r Reason for Visit * Reason Comments Med Refill Encounter Details Date Type Department Care Team ([facility] st Contact Info) Description 07/10/2023 Refill [facility] MEDICINE 230 [place], [place] [phone] Caryl Biggs MD 230 [place] [address] Primary osteoarthritis of both knees Social History [...] Description 08/05/2024 1:00 PM EDT Office Visit [facility] MEDICINE [address] [place] [phone] Kalpana Baptiste MD [address] [place] [address] 08/12/2024 11:30 AM EDT Clinical Support [address] [address] Amanda Waldrop, NEGAR documented as of this encounter Visit Diagnoses Diagnosis Primary osteoarthritis of both knees documented in this encounter Additional Health Concerns Assessment Noted Time PHQ-9 Depression Total Score: 0 08/22/19 23 10:06 AM EDT documented as of this encounter Care Teams Precision Machining Instructor Relationship Specialty Start Date End Date Kalpana Baptiste MD [address] [place] [phone] PCP - General Family Medicine 06/14/20 documented as of this encounter
--- OUTSIDE RECORDS SUMMARY | 2024-07-09 10:36 | XMS_ITS | Encounter Summary ---
Author Organization [employer] Address [address] [facility] [address] 7[address] [place] [address] Care Team Providers Care Rod Puller And Coiler Name Role Phone Kalpana Baptiste MD Primary Care Provide r Reason for Visit * Reason Comments Med Refill Encounter Details Date Type Department Care Team ([facility] st Contact Info) Description 07/28/2023 Refill [facility] MEDICINE 230 [place], [place] [phone] Kalpana Bpatiste MD 230 [place] [address] Moderate persistent asthma without complication; Chronic gout [...] Description 08/05/2024 1:00 PM EDT Office Visit [facility] MEDICINE [address] [place] [phone] Kalpana Baptiste MD [address] [place] [address] 08/12/2024 11:30 AM EDT Clinical Support [address] [address] Amanda Waldrop, NEGAR documented as of this encounter Visit Diagnoses Diagnosis Moderate persistent asthma without complication Chronic gout of multiple sites, unspecified cause Primary osteoarthritis of both knees documented in this encounter Additional Health Concerns Assessment Noted Time PHQ-9 Depression Total Score: 0 08/22/19 23 10:06 AM EDT documented as of this encounter Care Teams Rod Puller And Coiler Relationship Specialty Start Date End Date Kalpana Baptiste MD [address] [place] [phone] PCP - General Family Medicine 06/14/20 documented as of this encounter
--- OUTSIDE RECORDS SUMMARY | 2024-07-09 10:36 | XMS_ITS | Encounter Summary ---
Author Organization [employer] Address [address] [facility] [address] 7[address] [place] [address] Care Team Providers Care Glazing Superintendent Name Role Phone Kalpana Baptiste MD Primary Care Provide r Encounter Details Date Type Department Care Team ([facility] st Contact Info) Description 08/29/2023 Telephone [facility] MEDICINE 230 [place], [place] [phone] Kalpana Baptiste MD 230 [place], [place] [phone] Social History Tobacco Use Types Packs/Day Years [...] Description 08/05/2024 1:00 PM EDT Office Visit [facility] MEDICINE [address] [place] [phone] Kalpana Baptiste MD [address] [place] [address] 08/12/2024 11:30 AM EDT Clinical Support [facility] MEDICINE [address] [place] [address] Amanda Waldrop, NEGAR documented as of this encounter Visit Diagnoses Not on filedocumented in this encounter Additional Health Concerns Assessment Noted Time PHQ-9 Depression Total Score: 0 08/22/19 23 10:06 AM EDT documented as of this encounter Care Teams Glazing Superintendent Relationship Specialty Start Date End Date Kalpana Baptiste MD [address] [place] [address] PCP - General Family Medicine 06/14/20 documented as of this encounter
--- OUTSIDE RECORDS SUMMARY | 2024-07-09 10:36 | XMS_ITS | Encounter Summary ---
Author Organization [employer] Address [address] [facility] [address] 7[address] [place] [address] Care Team Providers Care Dye Padder Operator Name Role Phone Kalpana Baptiste MD Primary Care Provide r Reason for Visit * Reason Comments Med Refill Encounter Details Date Type Department Care Team ([facility] st Contact Info) Description 06/09/2023 Refill [facility] MEDICINE 230 [place], [place] [phone] Kalpana Baptiste MD 230 [place] [address] Chronic tension-type headache, not intractable; Primary osteoarthritis [...] Description 08/05/2024 1:00 PM EDT Office Visit [address] [address] Kalpana Baptiste MD [address] [place] [address] 08/12/2024 11:30 AM EDT Clinical Support [address] [address] Amanda Waldrop RN documented as of this encounter Visit Diagnoses Diagnosis Chronic tension-type headache, not intractable Chronic tension type headache Primary osteoarthritis of both knees Heartburn documented in this encounter Additional Health Concerns Assessment Noted Time PHQ-9 Depression Total Score: 0 08/22/19 23 10:06 AM EDT documented as of this encounter Care Teams Dye Padder Operator Relationship Specialty Start Date End Date Kalpana Baptiste MD [address] [place] [address] PCP - General Family Medicine 06/14/20 documented as of this encounter
--- OUTSIDE RECORDS SUMMARY | 2024-07-09 10:36 | XMS_ITS | Encounter Summary ---
Author Organization [employer] Address [address] [facility] [address] 7[address] [place] [address] Care Team Providers Care Hot Tamale Worker Name Role Phone Kalpana Baptiste MD Primary Care Provide r Reason for Visit * Reason Comments Med Refill Encounter Details Date Type Department Care Team ([facility] st Contact Info) Description 06/05/2023 Refill [facility] MEDICINE 230 [place], [place] [phone] Kalpana Baptiste MD 230 [place] [address] Heartburn; Chronic tension-type headache, not intractable; Primary osteoarthritis [...] Description 08/05/2024 1:00 PM EDT Office Visit [address] [address] Kalpana Baptiste MD [address] [place] [address] 08/12/2024 11:30 AM EDT Clinical Support [address] [address] Amanda Waldrop RN documented as of this encounter Visit Diagnoses Diagnosis Heartburn Chronic tension-type headache, not intractable Chronic tension type headache Primary osteoarthritis of both knees documented in this encounter Additional Health Concerns Assessment Noted Time PHQ-9 Depression Total Score: 0 08/22/19 23 10:06 AM EDT documented as of this encounter Care Teams Hot Tamale Worker Relationship Specialty Start Date End Date Kalpana Baptiste MD [address] [place] [phone] PCP - General Family Medicine 06/14/20 documented as of this encounter
--- OUTSIDE RECORDS SUMMARY | 2024-07-09 10:36 | XMS_ITS | Encounter Summary ---
Author Organization [employer] Address [address] [facility] [address] 7[address] [place] [address] Care Team Providers Care Warehouse Checker Name Role Phone Kalpana Baptiste MD Primary Care Provide r Reason for Visit * Reason Comments Med Refill Encounter Details Date Type Department Care Team ([facility] st Contact Info) Description 06/27/2023 Refill [facility] MEDICINE 230 [place], [place] [phone] Kalpana Baptiste MD 230 [place] [address] Heartburn Social History Tobacco Use Types Packs/Day [...] Description 08/05/2024 1:00 PM EDT Office Visit [facility] MEDICINE [address] [place] [address] Kalpana Baptiste MD [address] [place] [address] 08/12/2024 11:30 AM EDT Clinical Support [facility] MEDICINE [address] [place] [address] Amanda Waldrop, NEGAR documented as of this encounter Visit Diagnoses Diagnosis Heartburn documented in this encounter Additional Health Concerns Assessment Noted Time PHQ-9 Depression Total Score: 0 08/22/19 23 10:06 AM EDT documented as of this encounter Care Teams Warehouse Checker Relationship Specialty Start Date End Date Kalpana Baptiste MD [address] [place] [phone] PCP - General Family Medicine 06/14/20 documented as of this encounter
--- OUTSIDE RECORDS SUMMARY | 2024-07-09 10:36 | XMS_ITS | Encounter Summary ---
Author Organization [email or web address] Address [address] [facility] [address] [place] [address] Care Team Providers Care Outside Sales Engineer Name Role Phone Kalpana Baptiste MD Primary Care Provide r Reason for Visit * Reason Comments Med Refill Encounter Details Date Type Department Care Team ([facility] st Contact Info) Description 07/25/2023 Refill [facility] MEDICINE 230 [place], [place] [phone] Kalpana Baptiste MD 230 [place] [address] Chronic gout of multiple sites, unspecified cause; [...] Description 08/05/2024 1:00 PM EDT Office Visit [facility] MEDICINE [address] [place] [phone] Kalpana Baptiste MD [address] [place] [address] 08/12/2024 11:30 AM EDT Clinical Support [address] [address] Amanda Waldrop RN documented as of this encounter Visit Diagnoses Diagnosis Chronic gout of multiple sites, unspecified cause Primary osteoarthritis of both knees Moderate persistent asthma without complication documented in this encounter Additional Health Concerns Assessment Noted Time PHQ-9 Depression Total Score: 0 08/22/19 23 10:06 AM EDT documented as of this encounter Care Teams Outside Sales Engineer Relationship Specialty Start Date End Date Kalpana Baptiste MD [address] [place] [address] PCP - General Family Medicine 06/14/20 documented as of this encounter
--- OUTSIDE RECORDS SUMMARY | 2024-07-09 10:36 | XMS_ITS | Encounter Summary ---
Author Organization [employer] Address [address] [place] [address] Care Team Providers Care Drywall Hanger Name Role Phone Kalpana Baptiste MD Primary Care Provide r Reason for Visit * Reason Comments Med Refill Encounter Details Date Type Department Care Team ([facility] st Contact Info) Description 07/14/2023 Refill [facility] MEDICINE 230 [place], [place] [phone] Caryl Biggs MD 230 [place] [address] Primary osteoarthritis of both knees Social History [...] Description 08/05/2024 1:00 PM EDT Office Visit [facility] MEDICINE [address] [place] [address] Kalpana Baptiste MD [address] [place] [address] 08/12/2024 11:30 AM EDT Clinical Support [address] [address] Amanda Waldrop, NEGAR documented as of this encounter Visit Diagnoses Diagnosis Primary osteoarthritis of both knees documented in this encounter Additional Health Concerns Assessment Noted Time PHQ-9 Depression Total Score: 0 08/22/19 23 10:06 AM EDT documented as of this encounter Care Teams Drywall Hanger Relationship Specialty Start Date End Date Kalpana Baptiste MD [address] [place] [address] PCP - General Family Medicine 06/14/20 documented as of this encounter
--- OUTSIDE RECORDS SUMMARY | 2024-07-09 10:36 | XMS_ITS | Encounter Summary ---
Author Organization [employer] Address [address] [facility] [address] [place] [address] Care Team Providers Care Energy Efficient Site Manager Name Role Phone Kalpana Baptiste MD Primary Care Provide r Reason for Visit * Reason Comments Med Refill Encounter Details Date Type Department Care Team ([facility] st Contact Info) Description 07/24/2023 Refill [facility] MEDICINE 230 [place], [place] [phone] Kalpana Baptiste MD 230 [place] [address] Moderate persistent asthma without complication; Primary osteoarthritis [...] Description 08/05/2024 1:00 PM EDT Office Visit [facility] MEDICINE [address] [place] [address] Kalpana Baptiste MD [address] [place] [address] 08/12/2024 11:30 AM EDT Clinical Support [address] [address] Amanda Waldrop, NEGAR documented as of this encounter Visit Diagnoses Diagnosis Moderate persistent asthma without complication Primary osteoarthritis of both knees Chronic gout of multiple sites, unspecified cause documented in this encounter Additional Health Concerns Assessment Noted Time PHQ-9 Depression Total Score: 0 08/22/19 23 10:06 AM EDT documented as of this encounter Care Teams Energy Efficient Site Manager Relationship Specialty Start Date End Date Kalpana Baptiste MD [address] [place] [address] PCP - General Family Medicine 06/14/20 documented as of this encounter
--- OUTSIDE RECORDS SUMMARY | 2024-07-09 10:36 | XMS_ITS | Encounter Summary ---
Author Organization [employer] Address [address] [facility] [address] [place] [address] Care Team Providers Care Pc Tech Name Role Phone Kalpana Baptiste MD Primary Care Provide r Reason for Visit * Reason Comments Med Refill Encounter Details Date Type Department Care Team ([facility] st Contact Info) Description 06/30/2023 Refill [facility] MEDICINE 230 [place], [place] [phone] Kalpana Baptiste MD [address] [place] [address] Heartburn Social History Tobacco Use Types Packs/Day [...] Description 08/05/2024 1:00 PM EDT Office Visit [facility] MEDICINE [address] [place] [address] Kalpana Baptiste MD [address] [place] [address] 08/12/2024 11:30 AM EDT Clinical Support [facility] MEDICINE [address] [place] [address] Amanda Waldrop, NEGAR documented as of this encounter Visit Diagnoses Diagnosis Heartburn documented in this encounter Additional Health Concerns Assessment Noted Time PHQ-9 Depression Total Score: 0 08/22/19 23 10:06 AM EDT documented as of this encounter Care Teams Pc Tech Relationship Specialty Start Date End Date Kalpana Baptiste MD [address] [place] [address] PCP - General Family Medicine 06/14/20 documented as of this encounter
--- OUTSIDE RECORDS SUMMARY | 2024-07-09 10:36 | XMS_ITS | Encounter Summary ---
Author Organization [employer] Address 75 [facility] 7t [place] [address] Care Team Providers Care Experimental Display Builder Name Role Phone Kalpana Baptiste MD Primary Care Provide r Reason for Visit * Reason Comments Med Refill Encounter Details Date Type Department Care Team ([facility] Contact Info) Description 08/15/2022 Refill [facility] MEDICINE [address] [place] [phone] Kalpana Baptiste MD 230 [place] [address] Primary osteoarthritis of both knees Social History [...] Upcoming Encounters Date Type Department Care Team ([facility] Contact Info) Description 08/05/2024 1:00 PM EDT Office Visit [facility] MEDICINE [address] [place] [phone] Kalpana Baptiste MD [address] [place] [address] 08/12/2024 11:30 AM EDT Clinical Support [facility] MEDICINE [address] [place] [address] 408[address] Amanda Waldrop RN documented as of this encounter Visit Diagnoses Diagnosis Primary osteoarthritis of both knees documented in this encounter Care Teams Experimental Display Builder Relationship Specialty Start Date End Date Kalpana Baptiste MD [address] [place] [phone] PCP - General Family Medicine 06/14/20 documented as of this encounter
--- OUTSIDE RECORDS SUMMARY | 2024-07-09 10:36 | XMS_ITS | Encounter Summary ---
Author Organization [employer] Address [address] [facility] [address] 7t [place] [address] Care Team Providers Care Healthcare Recruiter Name Role Phone Kalpana Baptiste MD Primary Care Provide r Reason for Visit * Reason Comments Med Refill Encounter Details Date Type Department Care Team ([facility] st Contact Info) Description 09/15/2023 Refill [facility] MEDICINE 230 [place], [place] [phone] Neida Garrett DO 230 [place] [address] Heartburn Social History Tobacco Use Types Packs/Day [...] Description 08/05/2024 1:00 PM EDT Office Visit [facility] MEDICINE [address] [place] [phone] Kalpana Baptiste MD [address] [place] [address] 08/12/2024 11:30 AM EDT Clinical Support [facility] [address] [place] [phone] Amanda Waldrop, NEGAR documented as of this encounter Visit Diagnoses Diagnosis Heartburn documented in this encounter Additional Health Concerns Assessment Noted Time PHQ-9 Depression Total Score: 0 08/22/19 23 10:06 AM EDT documented as of this encounter Care Teams Healthcare Recruiter Relationship Specialty Start Date End Date Kalpana Baptiste MD [address] [place] [address] PCP - General Family Medicine 06/14/20 documented as of this encounter
--- OUTSIDE RECORDS SUMMARY | 2024-07-09 10:36 | XMS_ITS | Encounter Summary ---
Author Organization [employer] Address [address] [facility] [address] 7t [place] [address] Care Team Providers Care Telegraph Operator Name Role Phone Kalpana Baptiste MD Primary Care Provide r Reason for Visit * Reason Comments Med Refill Encounter Details Date Type Department Care Team ([facility] st Contact Info) Description 07/05/2023 Refill [facility] MEDICINE 230 [place], [place] [phone] Caryl Biggs MD 230 [place] [address] Primary osteoarthritis of both knees Social History [...] Description 08/05/2024 1:00 PM EDT Office Visit [facility] MEDICINE [address] [place] [address] Kalpana Baptiste MD [address] [place] [address] 08/12/2024 11:30 AM EDT Clinical Support [address] [address] Amanda Waldrop, NEGAR documented as of this encounter Visit Diagnoses Diagnosis Primary osteoarthritis of both knees documented in this encounter Additional Health Concerns Assessment Noted Time PHQ-9 Depression Total Score: 0 08/22/19 23 10:06 AM EDT documented as of this encounter Care Teams Telegraph Operator Relationship Specialty Start Date End Date Kalpana Baptiste MD [address] [place] [address] PCP - General Family Medicine 06/14/20 documented as of this encounter
--- OUTSIDE RECORDS SUMMARY | 2024-07-09 10:36 | XMS_ITS | Encounter Summary ---
Author Organization [employer] Address [address] [facility] [address] 7t [place] [address] Care Team Providers Care Fisher Lampara Net Name Role Phone Kalpana Baptiste MD Primary Care Provide r Reason for Visit * Reason Comments Med Refill Encounter Details Date Type Department Care Team ([facility] st Contact Info) Description 06/06/2023 Refill [facility] MEDICINE 230 [place], [place] [phone] Kalpana Baptiste MD 230 [place] [address] Primary osteoarthritis of both knees; Chronic tension-type [...] Description 08/05/2024 1:00 PM EDT Office Visit [address] [address] Kalpana Baptiste MD [address] [place] [address] 08/12/2024 11:30 AM EDT Clinical Support [address] [address] Amanda Waldrop RN documented as of this encounter Visit Diagnoses Diagnosis Primary osteoarthritis of both knees Chronic tension-type headache, not intractable Chronic tension type headache Heartburn documented in this encounter Additional Health Concerns Assessment Noted Time PHQ-9 Depression Total Score: 0 08/22/19 23 10:06 AM EDT documented as of this encounter Care Teams Fisher Lampara Net Relationship Specialty Start Date End Date Kalpana Baptiste MD [address] [place] [phone] PCP - General Family Medicine 06/14/20 documented as of this encounter
--- OUTSIDE RECORDS SUMMARY | 2024-07-09 10:36 | XMS_ITS | Encounter Summary ---
Author Organization [employer] Address 75 [facility] 7t [place] [address] Care Team Providers Care Jig Boring Machine Set Up Operator Name Role Phone Kalpana Baptiste MD Primary Care Provide r Reason for Visit * Reason Comments Med Refill Encounter Details Date Type Department Care Team ([facility] Contact Info) Description 08/15/2022 Refill [facility] MEDICINE [address] [place] [address] [phone] Marilyn Corral MD 230 [place], [place] [phone] Other hyperlipidemia; Allergic rhinitis, unspecified seasonality, unspecified [...] Upcoming Encounters Date Type Department Care Team ([facility] Contact Info) Description 08/05/2024 1:00 PM EDT Office Visit [facility] MEDICINE 230 [place] [phone] Kalpana Baptiste MD 230 [place] [address] 08/12/2024 11:30 AM EDT Clinical Support [facility] MEDICINE 230 [place] [address] Amanda Waldrop RN documented as of this encounter Visit Diagnoses Diagnosis Other hyperlipidemia Allergic rhinitis, unspecified seasonality, unspecified trigger Chronic tension-type headache, not intractable Chronic tension type headache Abdominal pain, epigastric documented in this encounter Care Teams Jig Boring Machine Set Up Operator Relationship Specialty Start Date End Date Kalpana Baptiste MD 230 [place] [address] PCP - General Family Medicine 06/14/20 documented as of this encounter
--- OUTSIDE RECORDS SUMMARY | 2024-07-09 10:36 | XMS_ITS | Encounter Summary ---
Author Organization [employer] Address [address] [facility] [address] 7t [place] [address] Care Team Providers Care Industrial Gas Production Operator Name Role Phone Kalpana Baptiste MD Primary Care Provide r Reason for Visit * Reason Comments Med Refill Encounter Details Date Type Department Care Team ([facility] st Contact Info) Description 07/28/2023 Refill [facility] MEDICINE 230 [place], [place] [phone] Caryl Biggs MD 230 [place] [address] Chronic tension-type headache, not intractable Social History [...] Description 08/05/2024 1:00 PM EDT Office Visit [facility] MEDICINE [address] [place] [phone] Kalpana Baptiste MD [address] [place] [address] 08/12/2024 11:30 AM EDT Clinical Support [address] [address] Amanda Waldrop RN documented as of this encounter Visit Diagnoses Diagnosis Chronic tension-type headache, not intractable Chronic tension type headache documented in this encounter Additional Health Concerns Assessment Noted Time PHQ-9 Depression Total Score: 0 08/22/19 23 10:06 AM EDT documented as of this encounter Care Teams Industrial Gas Production Operator Relationship Specialty Start Date End Date Kalpana Baptiste MD [address] [place] [phone] PCP - General Family Medicine 06/14/20 documented as of this encounter
--- OUTSIDE RECORDS SUMMARY | 2024-07-09 10:36 | XMS_ITS | Encounter Summary ---
Author Organization [employer] Address [address] [facility] [address] 7t [place] [address] Care Team Providers Care Compliance Review Specialist Name Role Phone Kalpana Baptiste MD Primary Care Provide r Reason for Visit * Reason Comments Med Refill Encounter Details Date Type Department Care Team ([facility] st Contact Info) Description 09/11/2023 Refill [facility] MEDICINE 230 [place], [place] [phone] Kalpana Baptiste MD 230 [place] [address] Acute otitis media, unspecified otitis media type [...] PM EDT Office Visit [facility] MEDICINE [address] [place] [phone] Kalpana Baptiste MD [address] [place] [address] 08/12/2024 11:30 AM EDT Clinical Support [facility] MED[facility]INE [address] [place] [address] 13913 Amanda Waldrop RN documented as of this encounter Visit Diagnoses Diagnosis Acute otitis media, unspecified otitis media type documented in this encounter Additional Health Concerns Assessment Noted Time PHQ-9 Depression Total Score: 0 08/22/19 23 10:06 AM EDT documented as of this encounter Care Teams Compliance Review Specialist Relationship Specialty Start Date End Date Kalpana Baptiste MD [address] [place] [phone] PCP - General Family Medicine 06/14/20 documented as of this encounter
--- OUTSIDE RECORDS SUMMARY | 2024-07-09 10:36 | XMS_ITS | Encounter Summary ---
Author Organization [employer] Address [address] [facility] [address] 7t [place] [address] Care Team Providers Care Adjuster Name Role Phone Kalpana Baptiste MD Primary Care Provide r Reason for Visit * Reason Comments Med Refill Encounter Details Date Type Department Care Team ([facility] st Contact Info) Description 07/08/2023 Refill [facility] MEDICINE 230 [place], [place] [phone] Caryl Biggs MD 230 [place] [address] Primary osteoarthritis of both knees Social History [...] Description 08/05/2024 1:00 PM EDT Office Visit [facility] MEDICINE [address] [place] [address] Kalpana Baptiste MD [address] [place] [address] 08/12/2024 11:30 AM EDT Clinical Support [address] [address] Amanda Waldrop, NEGAR documented as of this encounter Visit Diagnoses Diagnosis Primary osteoarthritis of both knees documented in this encounter Additional Health Concerns Assessment Noted Time PHQ-9 Depression Total Score: 0 08/22/19 23 10:06 AM EDT documented as of this encounter Care Teams Adjuster Relationship Specialty Start Date End Date Kalpana Baptiste MD [address] [place] [phone] PCP - General Family Medicine 06/14/20 documented as of this encounter
--- OUTSIDE RECORDS SUMMARY | 2024-07-09 10:36 | XMS_ITS | Encounter Summary ---
Author Organization [employer] Address [address] [facility] [address] 7t [place] [address] Care Team Providers Care Mechanical Project Manager Name Role Phone Kalpana Baptiste MD Primary Care Provide r Reason for Visit * Reason Comments Med Refill Encounter Details Date Type Department Care Team ([facility] st Contact Info) Description 07/25/2023 Refill [facility] MEDICINE 230 [place], [place] [phone] Caryl Biggs MD 230 [place] [address] Chronic tension-type headache, not intractable Social History [...] Description 08/05/2024 1:00 PM EDT Office Visit [facility] MEDICINE [address] [place] [phone] Kalpana Baptiste MD [address] [place] [address] 08/12/2024 11:30 AM EDT Clinical Support [address] [address] Amanda Waldrop RN documented as of this encounter Visit Diagnoses Diagnosis Chronic tension-type headache, not intractable Chronic tension type headache documented in this encounter Additional Health Concerns Assessment Noted Time PHQ-9 Depression Total Score: 0 08/22/19 23 10:06 AM EDT documented as of this encounter Care Teams Mechanical Project Manager Relationship Specialty Start Date End Date Kalpana Baptiste MD [address] [place] [phone] PCP - General Family Medicine 06/14/20 documented as of this encounter
--- OUTSIDE RECORDS SUMMARY | 2024-07-09 10:36 | XMS_ITS | Encounter Summary ---
Author Organization [employer] Address [address] [facility] [address] 7t [place] [address] Care Team Providers Care Occupational Therapy Asst Name Role Phone Kalpana Baptiste MD Primary Care Provide r Reason for Visit * Reason Comments Med Refill Encounter Details Date Type Department Care Team ([facility] st Contact Info) Description 06/29/2023 Refill [facility] MEDICINE 230 [place], [place] [phone] Caryl Biggs MD 230 [place] [address] Primary osteoarthritis of both knees Social History [...] Description 08/05/2024 1:00 PM EDT Office Visit [facility] MEDICINE [address] [place] [phone] Kalpana Baptiste MD [address] [place] [address] 08/12/2024 11:30 AM EDT Clinical Support [address] [address] Amanda Waldrop, NEGAR documented as of this encounter Visit Diagnoses Diagnosis Primary osteoarthritis of both knees documented in this encounter Additional Health Concerns Assessment Noted Time PHQ-9 Depression Total Score: 0 08/22/19 23 10:06 AM EDT documented as of this encounter Care Teams Occupational Therapy Asst Relationship Specialty Start Date End Date Kalpana Baptiste MD [address] [place] [phone] PCP - General Family Medicine 06/14/20 documented as of this encounter
--- OUTSIDE RECORDS SUMMARY | 2024-07-09 10:37 | XMS_ITS | Encounter Summary ---
Author Organization [employer] Address 75 [facility] 7t [place] [address] Care Team Providers Care Sand System Operator Name Role Phone Kalpana Baptiste MD Primary Care Provide r Reason for Visit * Reason Comments Med Refill Encounter Details Date Type Department Care Team ([facility] Contact Info) Description 08/23/2022 Refill [facility] MEDICINE 230 [place], [place] [phone] Kalpana Baptiste MD 230 [place] [address] Primary osteoarthritis of both knees Social History [...] Team ([facility] Contact Info) Description 08/05/2024 1:00 PM EDT Office Visit [facility] MEDICINE [address] [place] [phone] Kalpana Baptiste MD [address] [place] [address] 08/12/2024 11:30 AM EDT Clinical Support [address] [address] Amanda Waldrop RN documented as of this encounter Visit Diagnoses Diagnosis Primary osteoarthritis of both knees documented in this encounter Additional Health Concerns Assessment Noted Time PHQ-9 Depression Total Score: 0 08/22/19 23 10:06 AM EDT documented as of this encounter Care Teams Sand System Operator Relationship Specialty Start Date End Date Kalpana Baptiste MD [address] [place] [phone] PCP - General Family Medicine 06/14/20 documented as of this encounter
--- OUTSIDE RECORDS SUMMARY | 2024-07-09 10:37 | XMS_ITS | Encounter Summary ---
Author Organization [employer] Address 75 [facility] 7t [place] [address] Care Team Providers Care Salvage Inspector Wood Parts Name Role Phone Kalpana Baptiste MD Primary Care Provide r Reason for Visit * Reason Comments Med Refill Encounter Details Date Type Department Care Team ([facility] Contact Info) Description 11/13/2022 Refill [facility] MEDICINE [address] [place] [address] [phone] Kalpana Baptiste MD 230 [place], [place] [phone] Primary osteoarthritis of both knees Social History [...] Upcoming Encounters Date Type Department Care Team ([facility] Contact Info) Description 08/05/2024 1:00 PM EDT Office Visit [facility] MEDICINE 230 [place] [address] Kalpana Baptiste MD 230 [place] [address] 08/12/2024 11:30 AM EDT Clinical Support [facility] MEDICINE 230 [place] [address] Amanda Waldrop, RN documented as of this encounter Visit Diagnoses Diagnosis Primary osteoarthritis of both knees documented in this encounter Additional Health Concerns Assessment Noted Time PHQ-9 Depression Total Score: 0 08/22/19 23 10:06 AM EDT documented as of this encounter Care Teams Salvage Inspector Wood Parts Relationship Specialty Start Date End Date Kalpana Baptiste MD [address] [place] [phone] PCP - General Family Medicine 06/14/20 documented as of this encounter
--- OUTSIDE RECORDS SUMMARY | 2024-07-09 10:37 | XMS_ITS | Encounter Summary ---
Author Organization [employer] Address [address] [facility] [address] 7t [place] [address] Care Team Providers Care Wafer Production Worker Name Role Phone Kalpana Baptiste MD Primary Care Provide r Reason for Visit * Reason Onset Date Comments Med Refill 10/13/2023 Encounter Details Date Type Department Care Team ([facility] st Contact Info) Description 10/13/2023 Telephone [facility] MEDICINE 230 [place], [place] [phone] Kalpana Baptiste MD 230 [place] [address] Med Refill Social History Tobacco Use Types [...] 1 g tablet To be sent to: [facility] [place], [place] - [address] [place] [address] documented in this encounter Plan of Treatment Upcoming Encounters Date Type Department Care Team (Late st Contact Info) Description 08/05/2024 1:00 PM EDT Office Visit [facility] MEDICINE [address] [place] [address] Kalpana Baptiste MD 230 [place] [address] 08/12/2024 11:30 AM EDT Clinical Support [facility] MEDICINE [address] [place] [address] Amanda Waldrop RN documented as of this encounter Visit Diagnoses Not on filedocumented in this encounter Additional Health Concerns Assessment Noted Time PHQ-9 Depression Total Score: 0 08/22/19 23 10:06 AM EDT documented as of this encounter Care Teams Wafer Production Worker Relationship Specialty Start Date End Date Kalpana Baptiste MD 230 [place] [address] PCP - General Family Medicine 06/14/20 documented as of this encounter
--- OUTSIDE RECORDS SUMMARY | 2024-07-09 10:37 | XMS_ITS | Encounter Summary ---
Author Organization [employer] Address 75 [facility] 7t [place] [address] Care Team Providers Care Computer Hardware Designer Name Role Phone Kalpana Baptiste MD Primary Care Provide r Reason for Visit * Reason Comments Med Refill Encounter Details Date Type Department Care Team ([facility] Contact Info) Description 11/20/[address] [address] Abe Dial AGNP Overactive bladder Social History [...] [facility] Contact Info) Description 08/05/2024 1:00 PM EDT Office Visit [facility] MEDICINE [address] [place] [phone] Kalpana Baptiste MD [address] [place] [address] 08/12/2024 11:30 AM EDT Clinical Support [facility] MEDICINE 230 [place] [address] Amanda Waldrop RN documented as of this encounter Visit Diagnoses Diagnosis Overactive bladder Hypertonicity of bladder documented in this encounter Additional Health Concerns Assessment Noted Time PHQ-9 Depression Total Score: 0 08/22/19 23 10:06 AM EDT documented as of this encounter Care Teams Computer Hardware Designer Relationship Specialty Start Date End Date Kalpana Baptiste MD 230 [place] [address] PCP - General Family Medicine 06/14/20 documented as of this encounter
--- OUTSIDE RECORDS SUMMARY | 2024-07-09 10:37 | XMS_ITS | Encounter Summary ---
Author Organization [employer] Address [address] [facility] [address] 7t [place] [address] Care Team Providers Care Patient Care Manager Name Role Phone Kalpana Baptiste MD Primary Care Provide r Reason for Visit * Reason Comments Med Refill Encounter Details Date Type Department Care Team ([facility] st Contact Info) Description 12/26/2023 Refill [facility] MEDICINE 230 [place], [place] [phone] Kalpana Baptiste MD 230 [place] [address] Other hyperlipidemia; Chronic gout of multiple sites, [...] Description 08/05/2024 1:00 PM EDT Office Visit [facility] MEDICINE [address] [place] [phone] Kalpana Baptiste MD [address] [place] [address] 08/12/2024 11:30 AM EDT Clinical Support [facility] MEDICINE [address] [place] [phone] Amanda Waldrop RN documented as of this encounter Visit Diagnoses Diagnosis Other hyperlipidemia Chronic gout of multiple sites, unspecified cause Abdominal pain, epigastric Allergic rhinitis, unspecified seasonality, unspecified trigger Moderate persistent asthma without complication documented in this encounter Additional Health Concerns Assessment Noted Time PHQ-9 Depression Total Score: 0 08/22/19 23 10:06 AM EDT documented as of this encounter Care Teams Patient Care Manager Relationship Specialty Start Date End Date Kalpana Baptiste MD [address] [place] [phone] PCP - General Family Medicine 06/14/20 documented as of this encounter
--- OUTSIDE RECORDS SUMMARY | 2024-07-09 10:37 | XMS_ITS | Encounter Summary ---
Author Organization [employer] Address 75 [facility] 7t [place] [address] Care Team Providers Care Biostatistician Name Role Phone Kalpana Baptiste MD Primary Care Provide r Reason for Visit * Reason Comments Med Refill Encounter Details Date Type Department Care Team (Late Contact Info) Description 10/04/2022 Refill [facility] [address] [place], [place] [phone] Tootie Tineo ANP 230 [place], [place] [phone] Social History Tobacco Use Types Packs/Day Years [...] Upcoming Encounters Date Type Department Care Team ([facility] Contact Info) Description 08/05/2024 1:00 PM EDT Office Visit [facility] MEDICINE 230 [place], [place] [phone] Kalpana Baptiste MD 230 [place], [place] [phone] 08/12/2024 11:30 AM EDT Clinical Support [facility] MEDICINE 230 [place] [address] Amanda Waldrop RN documented as of this encounter Visit Diagnoses Not on filedocumented in this encounter Additional Health Concerns Assessment Noted Time PHQ-9 Depression Total Score: 0 08/22/19 23 10:06 AM EDT documented as of this encounter Care Teams Biostatistician Relationship Specialty Start Date End Date Kalpana Baptiste MD 230 [place] [address] PCP - General Family Medicine 06/14/20 documented as of this encounter
--- OUTSIDE RECORDS SUMMARY | 2024-07-09 10:37 | XMS_ITS | Encounter Summary ---
Author Organization [employer] Address 75 [facility] 7t [place] [address] Care Team Providers Care Supervisor Public Health Nursing Name Role Phone Kalpana Baptiste MD Primary Care Provide r Reason for Visit * Reason Comments Med Refill Encounter Details Date Type Department Care Team ([facility] Contact Info) Description 12/13/2022 Refill [facility] MEDICINE [address] [place] [address] [phone] Kalpana Baptiste MD [address] [place], [place] [phone] Primary osteoarthritis of both knees Social History [...] Encounters Date Type Department Care Team ([facility] Contact Info) Description 08/05/2024 1:00 PM EDT Office Visit [facility] MEDICINE 230 [place] [address] Kalpana Baptiste MD 230 [place] [address] 08/12/2024 11:30 AM EDT Clinical Support [facility] MEDICINE [address] [place] [address] Amanda Waldrop, RN documented as of this encounter Visit Diagnoses Diagnosis Primary osteoarthritis of both knees documented in this encounter Additional Health Concerns Assessment Noted Time PHQ-9 Depression Total Score: 0 08/22/19 23 10:06 AM EDT documented as of this encounter Care Teams Supervisor Public Health Nursing Relationship Specialty Start Date End Date Kalpana Baptiste MD [address] [place] [phone] PCP - General Family Medicine 06/14/20 documented as of this encounter
--- OUTSIDE RECORDS SUMMARY | 2024-07-09 10:37 | XMS_ITS | Encounter Summary ---
Author Organization [employer] Address [address] [facility] [address] 7t [place] [address] Care Team Providers Care Utility Spray Operator Name Role Phone aKlpana Baptiste MD Primary Care Provide r Reason for Visit * Reason Comments Med Refill Encounter Details Date Type Department Care Team ([facility] st Contact Info) Description 08/28/[address] [facility] MEDICINE 230 [place], [place] [phone] Kalpana Baptiste MD 230 [place] [address] Primary osteoarthritis of both knees Social History [...] Description 08/05/2024 1:00 PM EDT Office Visit [facility] MEDICINE [address] [place] [phone] Kalpana Baptiste MD [address] [place] [phone] 08/12/2024 11:30 AM EDT Clinical [facility] MEDICINE [address] [place] [address] Amanda Waldrop, NEGAR documented as of this encounter Visit Diagnoses Diagnosis Primary osteoarthritis of both knees documented in this encounter Additional Health Concerns Assessment Noted Time PHQ-9 Depression Total Score: 0 08/22/19 23 10:06 AM EDT documented as of this encounter Care Teams Utility Spray Operator Relationship Specialty Start Date End Date Kalpana Baptiste MD [address] [place] [address] PCP - General Family Medicine 06/14/20 documented as of this encounter
--- OUTSIDE RECORDS SUMMARY | 2024-07-09 10:37 | XMS_ITS | Encounter Summary ---
Author Organization [employer] Address 75 [facility] 7t [place] [address] Care Team Providers Care Epic Manager Name Role Phone Kalpana Baptiste MD Primary Care Provide r Reason for Visit * Reason Comments Med Refill Encounter Details Date Type Department Care Team ([facility] Contact Info) Description 09/03/2022 Refill [facility] MEDICINE 230 [place], [place] [phone] Kalpana Baptiste MD 230 [place] [address] Primary osteoarthritis of both knees Social History [...] Encounters Date Type Department Care Team ([facility] Contact Info) Description 08/05/2024 1:00 PM EDT Office Visit [facility] MEDICINE [address] [place] [address] Kalpana Baptiste MD [address] [place] [address] 08/12/2024 11:30 AM EDT Clinical Support [address] [address] Amanda Waldrop RN documented as of this encounter Visit Diagnoses Diagnosis Primary osteoarthritis of both knees documented in this encounter Additional Health Concerns Assessment Noted Time PHQ-9 Depression Total Score: 0 08/22/19 23 10:06 AM EDT documented as of this encounter Care Teams Epic Manager Relationship Specialty Start Date End Date Kalpana Baptiste MD [address] [place] [phone] PCP - General Family Medicine 06/14/20 documented as of this encounter
--- OUTSIDE RECORDS SUMMARY | 2024-07-09 10:37 | XMS_ITS | Encounter Summary ---
Author Organization [facility] Address [address] [place] [address] Care Team Providers Care Economic Consultant Name Role Phone Kalpana Baptiste MD Primary Care Provider Encounter Details Date Type Department Care Team (Late st Contact Info) Description 01/15/2016 Orders Only [facility] Building [address] [place] [phone] Aylin Gunn PA [address] [place] [address] [place]ematology[place] [address] Social History Tobacco Use Types Packs/Day Years [...] Info) Description 08/04/2024 12:00 PM EDT Lab [facility] ACC Draw Site Fifth Floor [address] [place] [address] 08/04/2024 1:00 PM EDT Follow-Up [facility] [address] [place] [address] Vivek Bernal MD PhD [address] [place] [address] documented as of this encounter Visit Diagnoses Not on filedocumented in this encounter Care Teams Economic Consultant Relationship Specialty Start Date End Date Kalpana Baptiste MD 230 [place] [address] PCP - General 11/22/20 documented as of this encounter
--- OUTSIDE RECORDS SUMMARY | 2024-07-09 10:37 | XMS_ITS | Encounter Summary ---
Author Organization [employer] Address 75 [facility] 7t [place] [address] Care Team Providers Care Supervisor Malted Milk Name Role Phone Kalpana Baptiste MD Primary Care Provide r Reason for Visit * Reason Comments Med Refill Encounter Details Date Type Department Care Team ([facility] Contact Info) Description 12/19/2022 Refill [facility] MEDICINE [address] [place] [address] [phone] Kalpana Baptiste MD 230 [place], [place] [phone] Primary osteoarthritis of both knees Social History [...] Upcoming Encounters Date Type Department Care Team ([facility] Contact Info) Description 08/05/2024 1:00 PM EDT Office Visit [facility] MEDICINE [address] [place] [address] Kalpana Baptiste MD 230 [place] [address] 08/12/2024 11:30 AM EDT Clinical Support [facility] MEDICINE [address] [place] [address] Amanda Waldrop, RN documented as of this encounter Visit Diagnoses Diagnosis Primary osteoarthritis of both knees documented in this encounter Additional Health Concerns Assessment Noted Time PHQ-9 Depression Total Score: 0 08/22/19 23 10:06 AM EDT documented as of this encounter Care Teams Supervisor Malted Milk Relationship Specialty Start Date End Date Kalpana Baptiste MD [address] [place] [phone] PCP - General Family Medicine 06/14/20 documented as of this encounter
--- OUTSIDE RECORDS SUMMARY | 2024-07-09 10:37 | XMS_ITS | Encounter Summary ---
Author Organization [employer] Address 75 [facility] 7t [place] [address] Care Team Providers Care Carriage Dogger Name Role Phone Kalpana Baptiste MD Primary Care Provide r Reason for Visit * Reason Comments Med Refill Encounter Details Date Type Department Care Team ([facility] Contact Info) Description 10/04/2022 Refill [facility] MEDICINE [address] [place] [address] [phone] Marilyn Corral MD 230 [place], [place] [phone] Moderate persistent asthma without complication Social History [...] Upcoming Encounters Date Type Department Care Team ([facility] Contact Info) Description 08/05/2024 1:00 PM EDT Office Visit [facility] MEDICINE [address] [place] [address] [phone] Kalpana Baptiste MD 230 [place], [place] [phone] 08/12/2024 11:30 AM EDT Clinical Support [facility] MEDICINE 230 [place] [address] Amanda Waldrop, RN documented as of this encounter Visit Diagnoses Diagnosis Moderate persistent asthma without complication documented in this encounter Additional Health Concerns Assessment Noted Time PHQ-9 Depression Total Score: 0 08/22/19 23 10:06 AM EDT documented as of this encounter Care Teams Carriage Dogger Relationship Specialty Start Date End Date Kalpana Baptiste MD [address] [place] [address] PCP - General Family Medicine 06/14/20 documented as of this encounter
--- OUTSIDE RECORDS SUMMARY | 2024-07-09 10:37 | XMS_ITS | Encounter Summary ---
Author Organization [employer] Address 75 [facility] 7t [place] [address] Care Team Providers Care Wheel Presser Name Role Phone Kalpana Baptiste MD Primary Care Provide r Reason for Visit * Reason Comments Med Refill Encounter Details Date Type Department Care Team (Late Contact Info) Description 12/09/2022 Refill [facility] MEDICINE [address] [place] [address] [phone] Abe Dial AGNP Indigestion; Overactive bladder Social [...] Department Care Team (Late Contact Info) Description 08/05/2024 1:00 PM EDT Office Visit [facility] MEDICINE [address] [place] [address] [phone] Kalpana Baptiste MD 230 [place] [address] 08/12/2024 11:30 AM EDT Clinical Support [facility] MEDICINE 230 [place] [address] Amanda Waldrop RN documented as of this encounter Visit Diagnoses Diagnosis Indigestion Dyspepsia and other specified disorders of function of stomach Overactive bladder Hypertonicity of bladder documented in this encounter Additional Health Concerns Assessment Noted Time PHQ-9 Depression Total Score: 0 08/22/19 23 10:06 AM EDT documented as of this encounter Care Teams Wheel Presser Relationship Specialty Start Date End Date Kalpana Baptiste MD 230 [place] [address] PCP - General Family Medicine 06/14/20 documented as of this encounter
--- OUTSIDE RECORDS SUMMARY | 2024-07-09 10:37 | XMS_ITS | Encounter Summary ---
Author Organization [employer] Address [address] [facility] [address] [address] 7t [place] [address] Care Team Providers Care Flight Operations Engineer Name Role Phone Kalpnaa Baptiste MD Primary Care Provide r Reason for Visit * Reason Comments Med Refill Encounter Details Date Type Department Care Team ([facility] st Contact Info) Description 08/22/2023 Refill [facility] MEDICINE 230 [place], [place] [phone] Kalpana Baptiste MD 230 [place] [address] Primary osteoarthritis of both knees Social History [...] Description 08/05/2024 1:00 PM EDT Office Visit [facility] MEDICINE [address] [place] [address] Kalpana Baptiste MD [address] [place] [address] 08/12/2024 11:30 AM EDT Clinical Support [facility] MEDICINE [address] [place] [address] Amanda Waldrop, NEGAR documented as of this encounter Visit Diagnoses Diagnosis Primary osteoarthritis of both knees documented in this encounter Additional Health Concerns Assessment Noted Time PHQ-9 Depression Total Score: 0 08/22/19 23 10:06 AM EDT documented as of this encounter Care Teams Flight Operations Engineer Relationship Specialty Start Date End Date Kalpana Baptiste MD [address] [place] [address] PCP - General Family Medicine 06/14/20 documented as of this encounter
--- OUTSIDE RECORDS SUMMARY | 2024-07-09 10:37 | XMS_ITS | Encounter Summary ---
Author Organization [employer] Address [address] [facility] [address] 7t [place] [address] Care Team Providers Care Road Mechanic Name Role Phone Kalpana Baptiste MD Primary Care Provide r Reason for Visit * Reason Comments Med Refill Encounter Details Date Type Department Care Team ([facility] st Contact Info) Description 11/10/2023 Refill [facility] MEDICINE 230 [place], [place] [phone] Kalpana Baptiste MD 230 [place] [address] Social History Tobacco Use Types Packs/Day Years [...] 08/05/2024 1:00 PM EDT Office Visit [facility] MEDICINE [address] [place] [address] Kalpana Baptiste MD [address] [place] [address] 08/12/2024 11:30 AM EDT Clinical Support [facility] MEDICINE [address] [place] [phone] Amanda Waldrop, NEGAR documented as of this encounter Visit Diagnoses Not on filedocumented in this encounter Additional Health Concerns Assessment Noted Time PHQ-9 Depression Total Score: 0 08/22/19 23 10:06 AM EDT documented as of this encounter Care Teams Road Mechanic Relationship Specialty Start Date End Date Kalpana Baptiste MD [address] [place] [address] PCP - General Family Medicine 06/14/20 documented as of this encounter
--- OUTSIDE RECORDS SUMMARY | 2024-07-09 10:37 | XMS_ITS | Encounter Summary ---
Author Organization [employer] Address [address] [facility] [address] 7t [place] [address] Care Team Providers Care Metal Burrer Name Role Phone Kalpana Baptiste MD Primary Care Provide r Reason for Visit * Reason Comments Med Refill Encounter Details Date Type Department Care Team ([facility] st Contact Info) Description 09/15/2023 Refill [facility] MEDICINE 230 [place], [place] [phone] Kalpana Baptiste MD 230 [place] [address] Chronic tension-type headache, not intractable; Dry eyes; [...] Description 08/05/2024 1:00 PM EDT Office Visit [address] [address] Kalpana Baptiste MD [address] [place] [address] 08/12/2024 11:30 AM EDT Clinical Support [address] [address] Amanda Waldrop RN documented as of this encounter Visit Diagnoses Diagnosis Chronic tension-type headache, not intractable Chronic tension type headache Dry eyes Unspecified tear film insufficiency Primary osteoarthritis of both knees documented in this encounter Additional Health Concerns Assessment Noted Time PHQ-9 Depression Total Score: 0 08/22/19 23 10:06 AM EDT documented as of this encounter Care Teams Metal Burrer Relationship Specialty Start Date End Date Kalpana Baptiste MD [address] [place] [phone] PCP - General Family Medicine 06/14/20 documented as of this encounter
--- OUTSIDE RECORDS SUMMARY | 2024-07-09 10:37 | XMS_ITS | Encounter Summary ---
Author Organization [employer] Address 75 [facility] 7t [place] [address] Care Team Providers Care Group Managing Director Name Role Phone Kalpana Baptiste MD Primary Care Provide r Reason for Visit * Reason Comments Med Refill Encounter Details Date Type Department Care Team ([facility] Contact Info) Description 10/09/2022 Refill [facility] MEDICINE [address] [place] [address] [phone] Marilyn Corral MD 230 [place], [place] [phone] Moderate persistent asthma without complication Social History [...] Upcoming Encounters Date Type Department Care Team ([facility] Contact Info) Description 08/05/2024 1:00 PM EDT Office Visit [facility] MEDICINE [address] [place] [address] [phone] Kalpana Baptiste MD 230 [place], [place] [phone] 08/12/2024 11:30 AM EDT Clinical Support [facility] MEDICINE 230 [place] [address] Amanda Waldrop, RN documented as of this encounter Visit Diagnoses Diagnosis Moderate persistent asthma without complication documented in this encounter Additional Health Concerns Assessment Noted Time PHQ-9 Depression Total Score: 0 08/22/19 23 10:06 AM EDT documented as of this encounter Care Teams Group Managing Director Relationship Specialty Start Date End Date Kalpana Baptiste MD 230 [place] [address] PCP - General Family Medicine 06/14/20 documented as of this encounter
--- OUTSIDE RECORDS SUMMARY | 2024-07-09 10:37 | XMS_ITS | Encounter Summary ---
Author Organization [employer] Address [address] [facility] [address] 7t [place] [address] Care Team Providers Care Personnel Generalist Manager Name Role Phone Kalpana Baptiste MD Primary Care Provide r Reason for Visit * Reason Comments Med Refill Encounter Details Date Type Department Care Team ([facility] st Contact Info) Description 08/11/2023 Refill [facility] MEDICINE 230 [place], [place] [phone] Kalpana Baptiste MD 230 [place] [address] Chronic gout of multiple sites, unspecified cause; [...] 08/05/2024 1:00 PM EDT Office Visit [facility] MEDICINE [address] [place] [phone] Kalpana Baptiste MD [address] [place] [address] 08/12/2024 11:30 AM EDT Clinical Support [address] [address] Amanda Waldrop RN documented as of this encounter Visit Diagnoses Diagnosis Chronic gout of multiple sites, unspecified cause Primary osteoarthritis of both knees Moderate persistent asthma without complication documented in this encounter Additional Health Concerns Assessment Noted Time PHQ-9 Depression Total Score: 0 08/22/19 23 10:06 AM EDT documented as of this encounter Care Teams Personnel Generalist Manager Relationship Specialty Start Date End Date Kalpana Baptiste MD [address] [place] [address] PCP - General Family Medicine 06/14/20 documented as of this encounter
--- OUTSIDE RECORDS SUMMARY | 2024-07-09 10:37 | XMS_ITS | Encounter Summary ---
Author Organization [facility] Address [address] [place] [address] Care Team Providers Care Newspaper Reporter Name Role Phone Kalpana Baptiste MD Primary Care Provider Encounter Details Date Type Department Care Team (Late st Contact Info) Description 01/17/2016 Orders Only [facility] Building [address] [place] [address] Aylin Gunn PA [address] [place] [address] [place]ology[place] [address] Social History Tobacco Use Types Packs/Day Years [...] Info) Description 08/04/2024 12:00 PM EDT Lab [facility] ACC Draw Site Fifth Floor [address] [place] [address] 08/04/2024 1:00 PM EDT Follow-Up [facility] Clinic [address] [place] [address] Vivek Bernal MD PhD [address] [place] [address] documented as of this encounter Visit Diagnoses Not on filedocumented in this encounter Care Teams Newspaper Reporter Relationship Specialty Start Date End Date Kalpana Baptiste MD 230 [place] [address] PCP - General 11/22/20 documented as of this encounter
--- OUTSIDE RECORDS SUMMARY | 2024-07-09 10:37 | XMS_ITS | Encounter Summary ---
Author Organization [employer] Address 75 [facility] 7t [place] [address] Care Team Providers Care Lumite Injector Name Role Phone Kalpana Baptiste MD Primary Care Provide r Reason for Visit * Reason Comments Med Refill Encounter Details Date Type Department Care Team (Late Contact Info) Description 10/23/2022 Refill [facility] [address] [place], [place] [phone] Tootie Tineo ANP 230 [place], [place] [phone] Social History Tobacco Use Types Packs/Day Years [...] Upcoming Encounters Date Type Department Care Team ([facility] Contact Info) Description 08/05/2024 1:00 PM EDT Office Visit [facility] MEDICINE 230 [place], [place] [phone] Kalpana Baptiste MD 230 [place], [place] [phone] 08/12/2024 11:30 AM EDT Clinical Support [facility] MEDICINE [address] [place] [address] Amanda Waldrop RN documented as of this encounter Visit Diagnoses Not on filedocumented in this encounter Additional Health Concerns Assessment Noted Time PHQ-9 Depression Total Score: 0 08/22/19 23 10:06 AM EDT documented as of this encounter Care Teams Lumite Injector Relationship Specialty Start Date End Date Kalpana Baptiste MD [address] [place] [address] PCP - General Family Medicine 06/14/20 documented as of this encounter
--- OUTSIDE RECORDS SUMMARY | 2024-07-09 10:37 | XMS_ITS | Encounter Summary ---
Author Organization [employer] Address [address] [facility] [address] 7t [place] [address] Care Team Providers Care Wind Turbine Technician Name Role Phone Kalpana Baptiste MD Primary Care Provide r Reason for Visit * Reason Comments Med Refill Encounter Details Date Type Department Care Team ([facility] st Contact Info) Description 09/19/[address] [facility] MEDICINE 230 [place], [place] [phone] Kalpana Baptiste MD [address] [place] [address] Primary osteoarthritis of both knees; Chronic tension-type [...] Description 08/05/2024 1:00 PM EDT Office Visit [address] [address] Kalpana Baptiste MD [address] [place] [address] 08/12/2024 11:30 AM EDT Clinical Support [address] [address] Amanda Waldrop RN documented as of this encounter Visit Diagnoses Diagnosis Primary osteoarthritis of both knees Chronic tension-type headache, not intractable Chronic tension type headache Dry eyes Unspecified tear film insufficiency documented in this encounter Additional Health Concerns Assessment Noted Time PHQ-9 Depression Total Score: 0 08/22/19 23 10:06 AM EDT documented as of this encounter Care Teams Wind Turbine Technician Relationship Specialty Start Date End Date Kalpana Baptiste MD [address] [place] [address] PCP - General Family Medicine 06/14/20 documented as of this encounter
--- OUTSIDE RECORDS SUMMARY | 2024-07-09 10:38 | XMS_ITS | Encounter Summary ---
Author Organization [employer] Address [address] [facility] [address] 7t [place] [address] Care Team Providers Care Arson And Bomb Investigator Name Role Phone Kalpana Baptiste MD Primary Care Provide r Reason for Visit * Reason Comments Med Refill Encounter Details Date Type Department Care Team ([facility] st Contact Info) Description 03/23/2024 Refill [facility] MEDICINE 230 [place], [place] [phone] Kalpana Baptiste MD 230 [place] [address] Type 2 diabetes mellitus with other specified complication, unspecified whether intermodal truck driver insulin use ([facility]); Primary osteoarthritis of both knees Social History [...] Description 08/05/2024 1:00 PM EDT Office Visit [facility] MEDICINE [address] [place] [address] Kalpana Baptiste MD [address] [place] [address] 08/12/2024 11:30 AM EDT Clinical Support [facility] MEDICINE [address] [place] [phone] Amanda Waldrop RN documented as of this encounter Visit Diagnoses Diagnosis Type 2 diabetes mellitus with other specified complication, unspecified whether long-term insulin use ([facility]) Primary osteoarthritis of both knees documented in this encounter Additional Health Concerns Assessment Noted Time PHQ-9 Depression Total Score: 0 08/22/19 23 10:06 AM EDT documented as of this encounter Care Teams Arson And Bomb Investigator Relationship Specialty Start Date End Date Kalpana Baptiste MD [address] [place] [address] PCP - General Family Medicine 06/14/20 documented as of this encounter
--- OUTSIDE RECORDS SUMMARY | 2024-07-09 10:38 | XMS_ITS | Encounter Summary ---
Author Organization [employer] Address [address] 7t [place] [address] Care Team Providers Care Commercial Property Manager Name Role Phone Kalpana Baptiste MD Primary Care Provide r Reason for Visit * Reason Comments Med Refill Encounter Details Date Type Department Care Team ([facility] st Contact Info) Description 02/18/2023 Refill [facility] [address] [place], [place] [phone] Kalpana Baptiste MD 230 [place] [address] Primary osteoarthritis of both knees Social History [...] Description 08/05/2024 1:00 PM EDT Office Visit [facility] [address] [place] [phone] Kalpana Baptiste MD [address] [place] [phone] 08/12/2024 11:30 AM EDT Clinical Support [facility] [address] [place] [phone] Amanda Waldrop, NEGAR documented as of this encounter Visit Diagnoses Diagnosis Primary osteoarthritis of both knees documented in this encounter Additional Health Concerns Assessment Noted Time PHQ-9 Depression Total Score: 0 08/22/19 23 10:06 AM EDT documented as of this encounter Care Teams Commercial Property Manager Relationship Specialty Start Date End Date Kalpana Baptiste MD [address] [place] [phone] PCP - General Family Medicine 06/14/20 documented as of this encounter
--- OUTSIDE RECORDS SUMMARY | 2024-07-09 10:38 | XMS_ITS ---
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 Other [...] medications schedul ed. No medications scheduled. Past Treatment and Therapy Plans
--- OUTSIDE RECORDS SUMMARY | 2024-07-09 10:38 | XMS_ITS | Encounter Summary ---
Author Organization [employer] Address [address] [place] [address] Care Team Providers Care Brick Layer Name Role Phone Kalpana Baptiste MD Primary Care Provide r Reason for Visit * Reason Comments Med Refill Encounter Details Date Type Department Care Team ([facility] st Contact Info) Description 02/04/2024 Refill [facility] [address] [place], [place] [phone] Caryl Biggs MD [address] [place] [address] Social History Tobacco Use Types Packs/Day Years [...] Description 08/05/2024 1:00 PM EDT Office Visit [facility] [address] [place] [phone] Kalpana Baptiste MD [address] [place] [phone] 08/12/2024 11:30 AM EDT Clinical Support [address] [address] Amanda Waldrop, RN documented as of this encounter Visit Diagnoses Not on filedocumented in this encounter Additional Health Concerns Assessment Noted Time PHQ-9 Depression Total Score: 0 08/22/19 23 10:06 AM EDT documented as of this encounter Care Teams Brick Layer Relationship Specialty Start Date End Date Kalpana Baptiste MD [address] [place] [phone] PCP - General Family Medicine 06/14/20 documented as of this encounter
--- OUTSIDE RECORDS SUMMARY | 2024-07-09 10:38 | XMS_ITS | Encounter Summary ---
Author Organization [employer] Address [address] 7[address] [place] [address] Care Team Providers Care Stacker Attendant Name Role Phone Kalpana Baptiste MD Primary Care Provide r Reason for Visit * Reason Comments Med Refill Encounter Details Date Type Department Care Team ([facility] st Contact Info) Description 02/12/2024 Refill [facility] 230 [place], [place] [phone] Caryl Biggs MD 230 [place] [address] Primary osteoarthritis of both knees Social History [...] 1:00 PM EDT Office Visit [facility] MED[facility] [address] [place] [phone] Kalpana Baptiste MD [address] [place] [phone] 08/12/2024 11:30 AM EDT Clinical Support [address] [address] Amanda Waldrop, NEGAR documented as of this encounter Visit Diagnoses Diagnosis Primary osteoarthritis of both knees documented in this encounter Additional Health Concerns Assessment Noted Time PHQ-9 Depression Total Score: 0 08/22/19 23 10:06 AM EDT documented as of this encounter Care Teams Stacker Attendant Relationship Specialty Start Date End Date Kalpana Baptiste MD [address] [place] [phone] PCP - General Family Medicine 06/14/20 documented as of this encounter
--- OUTSIDE RECORDS SUMMARY | 2024-07-09 10:38 | XMS_ITS | Encounter Summary ---
Author Organization [employer] Address [address] 7[address] [place] [address] Care Team Providers Care Pourer Bull Ladle Name Role Phone Kalpana Baptiste MD Primary Care Provide r Encounter Details Date Type Department Care Team ([facility] st Contact Info) Description 02/12/2023 Abstract [facility] 230 [place] [address] Therese Brown Social History Tobacco Use Types [...] 08/05/2024 1:00 PM EDT Office Visit [facility] [address] [place] [phone] Kalpana Baptiste MD [address] [place] [address] [phone] 08/12/2024 11:30 AM EDT Clinical Support [address] [address] Amanda Waldrop RN documented as of this encounter Procedures Procedure Name Priority Date/Time Associated Diagnosis Comments COLONOSCOPY Routine 07/06/2015 documented in this encounter Results * Colonoscopy (07/06/2015) Colonoscopy Normal Normal Narrative Therese Brown - 07/06/2015 Recommended 5 year follow up Historical Provider HEALTH MAINTENANCE Final Result documented in this encounter Visit Diagnoses Not on filedocumented in this encounter Additional Health Concerns Assessment Noted Time PHQ-9 Depression Total Score: 0 08/22/19 23 10:06 AM EDT documented as of this encounter Care Teams Pourer Bull Ladle Relationship Specialty Start Date End Date Kalpana Baptiste MD [address] [place] [phone] PCP - General Family Medicine 06/14/20 documented as of this encounter
--- OUTSIDE RECORDS SUMMARY | 2024-07-09 10:38 | XMS_ITS | Encounter Summary ---
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 ([facility]); Primary osteoarthritis of both knees Social History [...] Office Visit [facility] MEDICINE [address] [place] [phone] Kalpana Baptiste MD [address] [place] [address] 08/12/2024 11:30 AM EDT Clinical Support [facility]INE [address] [place] [phone] Amanda Waldrop RN documented as of this encounter Visit Diagnoses Diagnosis Type 2 diabetes mellitus with other specified complication, unspecified whether care home insulin use ([facility]) Primary osteoarthritis of both knees documented in this encounter Additional Health Concerns Assessment Noted Time PHQ-9 Depression Total Score: 0 08/22/19 23 10:06 AM EDT documented as of this encounter Care Teams Shipping Supervisor Relationship Specialty Start Date End Date Kalpana Baptiste MD [address] [place] [phone] PCP - General Family Medicine 06/14/20 documented as of this encounter
--- OUTSIDE RECORDS SUMMARY | 2024-07-09 10:38 | XMS_ITS | Clinical Summary ---
Author Organization [facility] Address [address] [place] [address] [place] [phone] Phone Care Team Providers Care Backside Grinder Name Role Phone Kalpana Baptiste MD Primary [...] Encounters Date Type Department Care Team Description 06/14/2024 4:15 PM EST Office Visit [facility] [address] BROWN [address] [place] [phone] Eben Us MD Stage 3b chronic kidney disease (HCC) (Primary Dx); Renal disorder due to type 2 diabetes mellitus <Diabetic nephropathy> (HCC); Persistent proteinuria; Essential hypertension 05/10/2024 Documentation Only [facility] [address] [phone] Eben Us MD from Last 3 Months [...] Sign Reading Time Taken Comments Blood Pressure 132/70 06/14/2024 3:44 PM EST Pulse 93 06/14/2024 3:44 PM EST Temperature - - Respiratory Rate - - Oxygen Saturation 97% 06/14/2024 3:44 PM EST Inhaled Oxygen Concentration - - Weight 108 kg (237 lb 12.8 oz) 06/14/2024 3:44 P M EST Height 170.2 cm (5' 7 ) 08/27/2018 12:00 PM EDT Body Mass Index 37.24 08/27/2018 12:00 PM EDT Plan of Treatment Upcoming Encounters Date Type Department Care Team (Late st Contact Info) Description 12/14/2024 1:30 PM EDT Office Visit [facility] [address] [phone] Eben Us MD [address] [phone] Health Maintenance Due Date Last Done Comments Breast Cancer Screening 1965 Colorectal Cancer Screening: Annual FOBT 2012 Colorectal Cancer Screening: Colonoscopy 2012 Colorectal Cancer Screening: Sigmoidoscopy 2012 Diabetes: Ophthalmology Exam 06/05/2020 Diabetes: Pedal Pulse Checked 06/05/2020 Diabetes: Sensory Foot Exam 06/05/2020 Diabetes: Visual Foot Exam 06/05/2020 Hepatitis B Vaccine (1 of 3 - Risk 3-dose series) 2023 11/15/2014, 08/10/2014, 12/01/2013, Additional history exists Diabetes: Hemoglobin A1C 05/27/2024 024, 08/21/2022, 08/11/2017 Pneumococcal Vaccine: Pediat rics (0 to 5 Years) and At-Risk Patients (6 to 64 Years) (4 of 4 - PPSV23 or PCV20) 2028 03/24/2016, 03/24/2016, 08/10/2014, Additional history exists Influenza Vaccine Completed 02/04/2024, , 02/20/2021, Additional history exists Insurance MEDICAID [place] Member Subscriber Plan / Payer (Ef fective 2020-Present) Name:Santa Kate Relation to Subscriber:Self Name:Santa Kate Payer ID:Not on file Group ID:Not on file Type:Not on file Address: [place] [id number] [place] Care Teams Backside Grinder Relationship Specialty Start Date End Date Kalpana Baptiste MD [address] [place] [address], [place] [phone] PCP - General Internal Medicine 07/03/21
--- OUTSIDE RECORDS SUMMARY | 2024-07-09 10:38 | XMS_ITS | Encounter Summary ---
Author Organization [employer] Address [address] [facility] 7t [place] [address] Care Team Providers Care Rotary Drier Operator Name Role Phone Kalpana Baptiste MD Primary Care Provide r Reason for Visit * Reason Comments Med Refill Encounter Details Date Type Department Care Team ([facility] Contact Info) Description 01/24/2023 Refill [facility] MED[facility]INE [address] [place] [address] [phone] Kalpana Baptiste MD [address] [place], [place] [phone] Primary osteoarthritis of both knees Social History [...] Upcoming Encounters Date Type Department Care Team ([facility] Contact Info) Description 08/05/2024 1:00 PM EDT Office Visit [facility]INE 230 [place] [address] Kalpana Baptiste MD [address] [place] [address] 08/12/2024 11:30 AM EDT Clinical Support [facility] [address] [place] [address] Amanda Waldrop, RN documented as of this encounter Visit Diagnoses Diagnosis Primary osteoarthritis of both knees documented in this encounter Additional Health Concerns Assessment Noted Time PHQ-9 Depression Total Score: 0 08/22/19 23 10:06 AM EDT documented as of this encounter Care Teams Rotary Drier Operator Relationship Specialty Start Date End Date Kalpana Baptiste MD [address] [place] [phone] PCP - General Family Medicine 06/14/20 documented as of this encounter
--- OUTSIDE RECORDS SUMMARY | 2024-07-09 10:38 | XMS_ITS | Encounter Summary ---
Author Organization [employer] Address [address] 7t [place] [address] Care Team Providers Care Pin Maker Name Role Phone Kalpana Baptiste MD Primary Care Provide r Reason for Visit * Reason Comments Med Refill Encounter Details Date Type Department Care Team ([facility] st Contact Info) Description 02/02/2024 Refill [facility] [address] [place], [place] [phone] Caryl Biggs MD [address] [place] [address] Primary osteoarthritis of both knees Social History [...] EDT Office Visit [facility] [address] [place] [phone] Kalpana Baptiste MD [address] [place] [phone] 08/12/2024 11:30 AM EDT Clinical Support [address] [address] Amanda Waldrop, NEGAR documented as of this encounter Visit Diagnoses Diagnosis Primary osteoarthritis of both knees documented in this encounter Additional Health Concerns Assessment Noted Time PHQ-9 Depression Total Score: 0 08/22/19 23 10:06 AM EDT documented as of this encounter Care Teams Pin Maker Relationship Specialty Start Date End Date Kalpana Baptiste MD [address] [place] [phone] PCP - General Family Medicine 06/14/20 documented as of this encounter
--- OUTSIDE RECORDS SUMMARY | 2024-07-09 10:38 | XMS_ITS | Encounter Summary ---
Author Organization [employer] Address [address] [place] [address] Care Team Providers Care Fabric Worker Leader Name Role Phone Kalpana Baptiste MD Primary Care Provide r Reason for Visit * Reason Comments Med Refill Encounter Details Date Type Department Care Team ([facility] st Contact Info) Description 02/18/2024 Refill [facility] MED[facility]INE 230 [place], [place] [phone] Caryl Biggs MD 230 [place] [address] Primary osteoarthritis of both knees Social History [...] 1:00 PM EDT Office Visit [facility] MEDICINE [address] [place] [phone] Kalpana Baptiste MD [address] [place] [phone] 08/12/2024 11:30 AM EDT Clinical Support [address] [address] Amanda Waldrop, NEGAR documented as of this encounter Visit Diagnoses Diagnosis Primary osteoarthritis of both knees documented in this encounter Additional Health Concerns Assessment Noted Time PHQ-9 Depression Total Score: 0 08/22/19 23 10:06 AM EDT documented as of this encounter Care Teams Fabric Worker Leader Relationship Specialty Start Date End Date Kalpana Baptiste MD [address] [place] [phone] PCP - General Family Medicine 06/14/20 documented as of this encounter
--- OUTSIDE RECORDS SUMMARY | 2024-07-09 10:38 | XMS_ITS | Clinical Summary ---
Author Organization [facility] Address [address] [place] [address] Care Team Providers Care Head Of Research & Insights Name Role Phone Kalpana Baptiste MD Primary [...] with or without food. 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 Anxiety disorder 06/24/2012 Depression 06/24/2012 Lower back pain 06/03/2012 Spleen enlargement 05/13/2012 Hypertension 03/06/2012 Asthma 03/06/2012 Hyperlipidemia 03/06/2012 Myelofibrosis 03/06/2012 Immunizations Immunization Administration Dates Next Due DTP-Haemophilus Influenzae T [...] Info) Description 08/04/2024 12:00 PM EDT Lab [facility] ACC Draw Site Fifth Floor [address] [place] [address] 08/04/2024 1:00 PM EDT Follow-Up [facility] Building B[facility] [address] [place] [address] Vivek Bernal MD PhD [address] [place] [address] Health Maintenance Due Date Last Done Comments Cervical Cancer Screening 1963 Cologuard 1963 Colon Cancer Screening 1965 Colonoscopy 1963 FOBT / Fit Test 1963 HPV and Pap Smear 1963 PTH 1963 Pap Smear 1963 Sigmoidoscopy [address] Lung Cancer Screening (Baseline) 08/12/2013 08/12/2012 Phosphorus 10/08/2013 10/08/2012, 06/0 09/2012, 10/06/2012, Additional history exists 25 Hydroxy / Vitamin D 08/11/2018 8, 08/10/2014, 02/03/2013, Additional history exists Pneumococcal Vaccine: 50+ Ye ars (4 of 4 - PCV20 or PCV21) 03/24/2021 03/24/2016, 03/24/2016, 08/10/2014, Additional history exists Urine Microalbumin 01/24/2023 01/24/2022 RSV Vaccine (60+ years old a nd patients) (1 - Risk 60-74 years 1-dose series) 2023 COVID-19 Vaccine (4 2023-2 5 season) 2024 05/08/2021, 07/05/2020, 06/06/2020 Alcohol/Substance Use Screening 05/05/2024 Depression Evaluation 05/05/2024 Social Drivers of Health Cindy ual Screening 05/05/2024 Hemoglobin A1C 05/27/2024 11/25/2023, 01/04, 08/21/2022, Additional history exists Basic Metabolic Panel 08/04/2024 02/04/2024 , 08/06/2023, 06/03/2023, Additional history exists Mammogram 08/21/2024 08/21/2022, 02/02, 02/11/2018 Hemoglobin 02/03/2025 02/04/2024, 04/0 07/2023, 05/07/2023, Additional history exists DTaP,Tdap,and Td Vaccines (6 [...] Additional history exists Procedures * Due to [place] state law, this organization might not be sharing negative HIV tests. Procedure Name Priority Date/Time Associated Diagnosis Comments CBC AUTO DIFFERENTIAL STAT 02/04/2024 10:26 AM EDT Chronic qjxvn-vvnbgj-ylva disease (HCC) COMPREHENSIVE METABOLIC PANEL STAT 02/04/2024 10:26 AM EDT Chronic oddiq-gsjsgc-djab disease (HCC) HEMOGLOBIN A1C Routine 08/11/2017 10:41 [...] to Health Maintenance Results * Due to [place] state law, this organization might not be sharing negative HIV tests. * (ABNORMAL) CBC Auto Differential (02/04/2024 10:26 AM EDT) WBC 4.6 3.8 - 10.8 10*3/uL 02/04/2024 10:53 AM EDT [facility] RBC 3.40(L) 3.80 - 5.10 10*6/uL 02/04/2024 10:53 AM EDT [facility] Hemoglobin 9.8(L) 11.7 - 15.5 g/dL 02/04/2024 10:53 AM EDT [facility] Hematocrit 30.3(L) 35.0 - 45.0 % 02/04/2024 10:53 AM EDT [facility] MCV 89.1 80.0 - 100.0 fL 02/04/2024 10:53 AM EDT [facility] MCH 28.8 27.0 - 33.0 pg 02/04/2024 10:53 AM EDT [facility] MCHC 32.3 32.0 - 36.0 g/dL 02/04/2024 10:53 AM EDT [facility] RDW 13.2 11.0 - 15.0 % 02/04/2024 10:53 AM EDT [facility] Platelets 241 140 - 400 10*3/uL 02/04/2024 10:53 AM EDT [facility] MPV 9.2 7.5 - 12.5 fL 02/04/2024 10:53 AM EDT [facility] Neutrophil % 44.4 % 02/04/2024 10:53 AM EDT [facility] Immature Grans % 0.9 0.0 - 0.9 % 02/04/2024 10:53 AM EDT [facility] Lymphocyte % 43.4 % 02/04/2024 10:53 AM EDT [facility] Monocyte % 10.2 % 02/04/2024 10:53 AM EDT [facility] Eosinophil % 0.9 % 02/04/2024 10:53 AM EDT [facility] Basophil % 0.2 % 02/04/2024 10:53 AM EDT [facility] Neutrophil # 2.06 1.50 - 7.80 10*3/uL 02/04/2024 10:53 AM EDT [facility] Immature Grans # 0.04(H) <=0.03 10*3/uL 02/04/2024 10:53 AM EDT [facility] Lymphocyte # 2.00 0.85 - 3.90 10*3/uL 02/04/2024 10:53 AM EDT [facility] Monocyte # 0.50 0.20 - 0.95 10*3/uL 02/04/2024 10:53 AM EDT [facility] Eosinophil # <0.03 0.02 - 0.50 10*3/uL 02/04/2024 10:53 AM EDT [facility] Basophil # <0.03 0.00 - 0.20 10*3/uL 02/04/2024 10:53 AM EDT [facility] nRBC % 0.0 /100 WBCs 02/04/2024 10:53 AM EDT [facility] nRBC # <0.01 <0.01 10*3/uL 02/04/2024 10:53 AM EDT [facility] Total Neutrophil #, Preliminary 2.06 1.50 - 7.80 10*3/uL 02/04/2024 10:53 AM EDT [facility] Blood Structure of peripheral vein / Unknown Venipuncture / Unknown 02/04/2024 10:26 AM EDT 02/04/2024 10:43 AM EDT us Aylin MORROW LAB BLOOD ORDERABLES Gabi acuna Result [facility] [address] [place] [address], [place] * (ABNORMAL) Comprehensive Metabolic Panel (02/04/2024 10:26 AM EDT) NA 142 135 - 145 mmol/L 02/04/2024 11:17 AM EDT [facility] K 4.0 3.5 - 5.3 mmol/L 02/04/2024 11:17 AM EDT [facility] Cl 105 98 - 107 mmol/L 02/04/2024 11:17 AM EDT [facility] CO2 24 22 - 32 mmol/L 02/04/2024 11:17 AM EDT [facility] Anion Gap 13 5 - 15 02/04/2024 11:17 AM EDT [facility] Glucose 110(H) 65 - 99 mg/dL 02/04/2024 11:17 AM EDT [facility] Creatinine 1.57(H) 0.50 - 1.20 mg/dL 02/04/2024 11:17 AM EDT [facility] Calcium 8.5(L) 8.6 - 10.5 mg/dL 02/04/2024 11:17 AM EDT [facility] Total Protein 7.2 6.0 - 8.0 g/dL 02/04/2024 11:17 AM EDT [facility] Albumin 4.5 3.5 - 5.2 g/dL 02/04/2024 11:17 AM EDT [facility] Bilirubin, Total 0.3 0.2 - 1.2 mg/dL 02/04/2024 11:17 AM EDT [facility] Alkaline Phosphatase 71 35 - 129 U/L 02/04/2024 11:17 AM T [facility] AST 37 10 - 40 U/L 02/04/2024 11:17 AM EDT [facility] ALT 43(H) 10 - 40 U/L 02/04/2024 11:17 AM ED [facility] BUN 19 7 - 23 mg/dL 02/04/2024 11:17 AM [facility] eGFR 38(L) >=60 mL/min/1 .73m2 02/04/2024 11:17 AM [facility] Comment:The estimated glomer ular [...] - 4.2 g/dL 02/04/2024 11:17 AM EDT [facility] A/G Ratio 1.7 1.5 - 3.0 02/04/2024 11:17 AM EDT [facility] Blood Structure of peripheral vein / Unknown Venipuncture / Unknown 02/04/2024 10:26 AM EDT 02/04/2024 10:43 AM EDT us Aylin MORROW LAB BLOOD ORDERABLES Gabi l Result [facility] [address] [place] [address], * (ABNORMAL) Vitamin D, 25-Hydroxy, Total, Immunoassay (08/11/2017 10:41 AM EDT) Calcidiol+ercalc idiol 24(L) 30 - 100 ng/mL 08/11/2017 7:50 PM EDT [facility] Comment: Vitamin D Status ? 25-OH Vitamin D: Deficiency: ?<20 ng/mL Insufficiency: ? 20 - 29 ng/mL Optimal: ? > or = 30 ng/mL For 25-OH Vitamin D testing on patients on D2-supplementation and patients for whom quantitation of D2 and D3 fractions is required, the [facility]() 25-OH VIT D, (D2,D3), LC/MS/MS is recommended: order code [id number] (patients >2yrs). For more information on this test, go to: http://education.Xceliant/faq/DMY483 (This link is being provided for informational/educational purposes only.) Blood specimen (specimen) Structure of peripheral vein / Unknown Venipuncture / Unknown 08/11/2017 10:41 AM EDT 08/11/2017 10:57 AM EDT Narrative [facility] 08/11/2017 7:50 PM EDT [facility] Received Date:[id number] us Aylin MORROW LAB BLOOD ORDERABLES Gabi l Result [facility] [address] [facility] 3rd Floor, [place] [address], [facility] [address], [place] [address], * (ABNORMAL) Hemoglobin A1c (08/11/2017 10:41 AM EDT) Hemoglobin A1C 5.8(H) <5.7 % of total Hgb 08/11/2017 7:12 PM EDT [facility] Comment: For someone without known diabetes, a [...] (MG/DL) 120 (calc) 08/11/2017 7:12 PM EDT [facility] eAG (MMOL/L) 6.6 (calc) 08/11/2017 7:12 PM EDT [facility] Blood specimen (specimen) Structure of peripheral vein / Unknown Venipuncture / Unknown 08/11/2017 10:41 AM EDT 08/11/2017 10:57 AM EDT [facility] - 08/11/2017 7:12 PM EDT [facility] Received Date:[id number] us Aylin MORROW LAB BLOOD ORDERABLES Gabi l Result [facility] [address], [place] [address], [facility] [address], [place] [address], [place] [phone] * HEPATITIS C ANTIBODY, CONVERSION (08/09/2013 3:20 PM EDT) Hepatitis C Antibody 0.06 <1.00 [facility] HCV Interpretation Negative [facility] Comment: Not infected with HCV, unless recent infection is suspected or other evidence exists to indicate HCV infection. 08/09/2013 3:20 PM EDT 08/09/2013 4:45 PM EDT us Vivek Bernal MD PhD LAB HISTORICAL RESULTS Final Re sult Performing Organization Address [facility]/ZIP Co de Phone Number [facility] [address] [place] [address], [place] * HIV-1/2 Antigen/Antibodies 4th Generation w/Reflex (08/09/2013 3:20 PM EDT) HIV 1,2 Ab/Ag Stat NEGATIVE NEGATIVE [facility] 08/09/2013 3:20 PM EDT 08/09/2013 4:45 PM EDT us Vivek Bernal MD PhD LAB BLOOD ORDERABLES Final Resu lt Performing Organization Address [facility] Co de Phone Number [facility] [address] [place] [address], [place] * Phosphorus (10/08/2012 3:00 AM EDT) Phosphorus Blood 3.6 2.5 - 4.5 mg/dL [facility] 10/08/2012 3:00 AM EDT 10/08/2012 4:14 AM EDT us Neida Sotelo LAB BLOOD ORDERABLES Final Re sult Performing Organization Address [facility]/ZIP Co de Phone Number [facility] [address] [place] [address], [place] * CT Chest W Contrast (08/12/2012 [...] Most Recently Relevant to Health Maintenance Insurance [address] [place] [address] [facility] Advance Directives Documents on File Type Date Recorded Patient Trade Show Coordinator Expl anation Advance Directive 08/27/2012 12:00 AM Adva nce Care Directives Advance Directive 08/27/2012 12:00 AM Adva nce Care Directives Advance Directive 07/22/2012 12:00 AM emre Silva edical Dec Making (Adv.Dir) Care Teams Head Of Research & Insights Relationship Specialty Start Date End Date Kalpana Baptiste MD [address] [place] [phone] PCP - General 11/22/20
--- OUTSIDE RECORDS SUMMARY | 2024-07-09 10:38 | XMS_ITS | Data Portability ---
Author Organization [place] - [facility], Allergy Address [address] [facility] [address] [place] [address] Assessment Encounter Date Assessment Date Assessment LastModified by Organization Details LastModified Time 06/07/2024 06/07/2024 59 yo F presents for her ear. She has had symptoms of pain, pressure, had a lot of drainage years ago when young, has had trouble since. On exam today, there is a granulation polyp posteriorly on the TM coated with some thin mucus. This is probably contributing to the mixed loss. I recommended a course of drops with steroids and dry ear precautions. Will plan on short-term reassessment. Would recommend CT T-bone if no improvement. [email or web address] Not available 06/17/2024 09:19:53 Plan of Treatment Reminders Order Date Submit Date Provider Last Modified By Organization Details Last Modified Time Details Appointments None recorded. Lab None recorded. Referral None recorded. Procedures None recorded. Surgeries None recorded. Imaging None recorded. Medication Orders tobramycin 0.3 %-dexametha sone 0.1 % eye drops,suspe nsion [address] [facility] #[id number], [address] [facility], [place], [address], 5 10:13:58 Patient TargetsNo targets recorded. Patient InstructionsNo instructions recorded. Reason for Referral None Reported. Results Created Date Observation Date Name Description Value Unit Range Abnormal Flag Note LastModifiedBy Organization Detail LastModifiedTime 06/07/19 25 audio gram No observ ation record ed. BARCODE Not Available 2024 13:28:12 Result Notes None recorded. Problems Name Problem SNOMED Code Status Onset Date Resolution Date Notes Provider Name and Address Organization Details Recorded Time Disorder of left Eustachian tube 6120434835685 109 Active 2024 VANE NGUYENSWATICURT, AUD [address] [facility],[place] [address], [place], [address], 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 Procedures Surgical History Date Name Laterality Status Provider Name and Address Organization Details Recorded Time 06/07/2024 Comp Audio with Tymps (93191 & 39509) completed VANE NGUYENSHAHID, MONICA [address] [facility],[address], [address], [facility] 06/07/2024 09:35:44 Imaging Results Imaging Date Name Status LastModified by Organiz ation Details LastModified Time 06/07/2024 audiogram completed BARCODE Information no t available 06/07/2024 13:28:12 Procedure Notes None recorded. Medical Equipment None Reported. Allergies Allergen ID Allergen Name Allergen Category Reaction Reaction Severity Criticality Documentation Date Start Date Code Code System Note Provider Name and Address Organization Details Recorded Time 870534 aspirin medicatio n Not available Not available Not available 06/07/2024 1191 RxNorm Suzette mathew [place] [facility] 09:58:34 240492 Product containin g penicilli n (product) medicatio n Not available Not available Not available 06/07/2024 28837 8001 SNOMED Suzette mathew [place] [facility] 09:58:43 Medications Name Sig Start Date Stop Date Status Note LastModified by Organization Details LastModified Time prednisone 20 mg tablet TAKE 2 TABLETS BY MOUTH ON DAY 1, THEN TAKE 1 TABLET DAILY FOR 4 DAYS 06/07 completed Not Available Not Available Not Available clindamycin HCl 150 mg capsule TAKE 1 CAPSULE BY MOUTH FOUR TIMES DAILY FOR 7 DAYS 06/07 completed Not Available Not Available Not Available acetaminoph en ER 650 mg tablet,exte nded release TAKE 1 TABLET BY MOUTH EVERY 8 HOURS NEEDED FOR MODERATE PAIN DO NOT BREAK, CRUSH, DISSOLVE OR CHEW 06/07 completed Not Available Not Available Not Available doxycycline hyclate 100 mg tablet TAKE 1 TABLET BY MOUTH TWICE DAILY FOR 10 DAYS WITH A FULL GLASS OF WATER. Do not lie down for 30 minutes after taking 06/07 completed Not Available Not Available Not Available tobramycin 0.3 %-dexametha sone 0.1 % eye drops,suspe nsion USE 3 DROPS INTO LEFT EAR TWICE A DAY FOR 2 WEEKS active Not Available Not Available No t Available [employer] [place] Lite kit USE TEST BLOOD SUGAR TWICE DAILY active Not Available Not Available No t Available diclofenac 1 % topical gel APPLY 1 GRAM TOPICALLY TO AFFECTED AREA(S) 4 TIMES A DAY IN THE MORNING, AT NOON, IN THE EVENING, AND AT BEDTIME NEEDED FOR PAIN (WRIST) active Not Available Not Available No t Available Vitals Date Recorded Body height Body mass index (BMI) Body weight Provider Name and Address Organization Details Last Updated DateTime 06/07/2024 170.18 cm 37.3 kg/m2 613348.98 g Suzette Dunlap [place] - [facility] 06/07/2024 09:58:20 Social History None recorded. Functional Status None recorded. Mental Status None recorded. Family History Nothing Reported. Medical History Condition Response Diabetes Y Anemia Y Anxiety Y Hypertension Y Depression Y Asthma Y Gynecological HistoryNo gynecological history recorded. Obstetrics History GPAL:G 0 P 0 0 0 0 Past Encounters Encounter ID Performer Location Encounter Start Date Encounter Closed Date Diagnosis/Indication Diagnosis SNOMED-CT Code Diagnosis ICD10 Code Diagnosis Note [id number] ANKUSH CARRION MD [facility] [address] [address] 06/07/2024 09:23:18 06/07/2024 10:19:54 Disorder of left Eustachian tube 1745149015 528528 H69.92 Right Ear:Mild SNHL with good speech discrimina tion.Type A tympanogra m.Left Ear:Mild to severe MHL with good speech discrimina tion.Type B tympanogra m. Mixed cond uctive and sensorineural hearing loss of left ear 9437211645 9107 H90.A32 Granulatio ns on tympanic membrane 090750610 H73.899 Health Concerns Section Related Observation LastModified by Organization Detai ls LastModified Time None Recorded Concern Status LastModified by Organization Details LastModified Time None Recorded Advance Directives Directive None Recorded Payers Encounter Date Sequence Insurance Name Policy Number Policy [place] Covered Member ID [place] Member ID Guarantor Name 06/07/2024 1 [place]-[place] Santaclaudio Denis [id number] [place] Notes Date Note Type Note Provider Name and Address Organization Details Recorded Time 06/07/2024 text/html 59 yo F presents for her ear Symptoms of pain, pressure, had a lot of drainage years ago when young, has had trouble since Does not know if still getting infections, gets pain with water in the ears Uses drops Has DM, does not know last AIC but reports it is under better control No tinnitus, no sinus infections lately ANKUSH CARRION MD [address] [place] [address], [phone], [facility] - [facility] 06/17/2024 09:20:04 OBGyn Episode No OBEpisode recorded.
--- OUTSIDE RECORDS SUMMARY | 2024-07-09 10:38 | XMS_ITS | Encounter Summary ---
Author Organization [employer] Address [address] [place] [address] Care Team Providers Care Knot Picker Cloth Name Role Phone Kalpana Baptiste MD Primary Care Provide r Reason for Visit * Reason Comments Med Refill Encounter Details Date Type Department Care Team ([facility] st Contact Info) Description 03/31/2024 Refill [facility] [address] [place], [place] [phone] Kalpana Baptiste MD [address] [place] [address] Type 2 diabetes mellitus with other specified complication, unspecified whether keno terminal operator insulin use ([facility]); Primary osteoarthritis of both knees Social [...] Description 08/05/2024 1:00 PM EDT Office Visit [facility] [address] [place] [address] Kalpana Baptiste MD [address] [place] [phone] 08/12/2024 11:30 AM EDT Clinical Support [facility] [address] [place] [address] Amanda Waldrop RN documented as of this encounter Visit Diagnoses Diagnosis Type 2 diabetes mellitus with other specified complication, unspecified whether usp insulin use ([facility]) Primary osteoarthritis of both knees documented in this encounter Additional Health Concerns Assessment Noted Time PHQ-9 Depression Total Score: 0 08/22/19 23 10:06 AM EDT documented as of this encounter Care Teams Knot Picker Cloth Relationship Specialty Start Date End Date Kalpana Baptiste MD [address] [place] [phone] PCP - General Family Medicine 06/14/20 documented as of this encounter
--- OUTSIDE RECORDS SUMMARY | 2024-07-09 10:38 | XMS_ITS | Encounter Summary ---
Author Organization [employer] Address [address] [place] [address] Care Team Providers Care Boatbuilder Supervisor Name Role Phone Kalpana Baptiste MD Primary Care Provide r Reason for Visit * Reason Comments Med Refill Encounter Details Date Type Department Care Team ([facility] st Contact Info) Description 05/13/2024 Refill [facility] [address] [place], [place] [phone] Kalpana Baptiste MD [address] [place] [address] Heartburn Social History Tobacco Use Types Packs/Day [...] 1:00 PM EDT Office [facility] [address] [place] [phone] Kalpana Baptiste MD [address] [place] [phone] 08/12/2024 11:30 AM EDT Clinical Support [address] [address] Amanda Waldrop, NEG[place] documented as of this encounter Visit Diagnoses Diagnosis Heartburn documented in this encounter Additional Health Concerns Assessment Noted Time PHQ-9 Depression Total Score: 0 05/06/19 25 2:15 PM EST documented as of this encounter Care Teams Boatbuilder Supervisor Relationship Specialty Start Date End Date Kalpana Baptiste MD [address] [place] [phone] PCP - General Family Medicine 06/14/20 documented as of this encounter
--- OUTSIDE RECORDS SUMMARY | 2024-07-09 10:38 | XMS_ITS | Encounter Summary ---
Author Organization [facility] Address [address] [place] [address] Care Team Providers Care Warehouse Examiner Name Role Phone Kalpana Baptiste MD Primary Care Provide r Reason for Visit * Reason Comments Consult NPV-diabetic foot ca re * Orthopedic (Routine) - Closed Specialty Diagnoses / Procedures Referred By Angelic nair Referred To Contact Podiatry / Orthopaedic Surgery Diagnoses Type 2 diabetes mellitus with diabetic chronic kidney disease Chronic kidney disease, stage 3 unspecified Procedures AMB Referral to Podiatry Kalpana Baptiste MD [address] [place] [phone] Phone: tel: fax: Lee Delaney DPM [address] [address] Phone: tel: fax: Referral ID Status Reason Start Date Expiration Date V isits Requested Visits Authorized [id number] Closed Consult and Treat 03/04/2024 03/04/2025 6 6 Encounter Details Date Type Department Care Team ([facility] Contact Info) Description 06/15/2024 2:45 PM EST Office Visit Orthopedic Surgery - [place] [address] [phone] Lee Delaney DPM [address] [phone] Metatarsalgia of both feet (Primary Dx); Pain in right wrist; Dermatophytosis of nail; Pain in toe of right foot; Pain in toe of left foot; Diabetic mononeuropathy simplex (CMS/HCC) Social History Tobacco Use Types Packs/Day Years Used Date Smoking Tobacco: Never Smokeless Tobacco: Never Interpersonal Safety Answer Date Record ed Physical Abuse 05/18/2024 Verbal Abuse 05/18/2024 Comments Unknown Sex and Gender Information Value Date Recorded Sex Assigned at Not on file Legal Sex Female 12:42 AM EST Gender Identity Not on file Sexual Orientation Not on file documented as of this encounter Last Filed Vital Signs Vital Sign Reading Time Taken Comments Blood Pressure - - Pulse - - Temperature - - Respiratory Rate - - Oxygen Saturation - - Inhaled Oxygen Concentration - - Weight 108 kg (238 lb) 06/15/2024 1:35 PM EST Height 170.2 cm (5' 7.01 ) 06/15/2024 1:35 PM ES T Body Mass Index 37.27 06/15/2024 1:35 PM EST documented in this encounter Progress Notes * Lee Delaney DPM - 06/15/2024 2:45 PM EST Last PCP visit:Referring MD: Kalpana Baptiste * 05/17/24 IDENTIFIER: Lavinia is a 59 y.o. year old female who presents for consultation. CC: Foot pain HPI: Patient presents today for evaluation of her feet she is a type II diabetic poorly controlled states she has numbness burning tingling to her feet longer painful thickened nails and skin bother her constantly she states that she also has thick skin in the balls of both of her feet when she walks for prolonged periods of time she has difficulty walking walks a 4 point rolling walker and cane states she is difficulty in care of her feet and was referred today for evaluation does occasionally havethrobbing burning sensation in both of her feet with pain in the balls of both feet ROS: GENERAL: Pt denies nausea, fever, vomiting, chills, or shortness of breath. Pt in NAD. CARDIOLOGY: pt denies chest pain, palpitations LUNGS: pt denies shortness of breath MUSCULOSKELETAL: See HPI, otherwise no joint pain or swelling, back pain, or muscle pain. SKIN: see HPI, otherwise no lesions, rash or itching NEURO: No persistent headache, weakness or numbness The remainder of the review of systems is noncontributory PAST MEDICAL HISTORY: Patient Active Problem List Diagnosis JUSTINO (acute kidney injury) ([facility]) SOCIAL HISTORY: Social History Tobacco Use Smoking status: Never Smokeless tobacco: Never Substance Use Topics Alcohol use: Not on file ACTIVE MEDICATIONS: Outpatient Medications Marked as Taking for the 06/15/24 encounter (Office Visit) with Lee Delaney DPM Medication Sig Dispense Refill albuterol 2.5 mg /3 mL (0.083 %) nebulizer solution Take 3 mL (2.5 mg total) by nebulization every 8 (eight) hours if needed for wheezing. albuterol HFA (PROAIR HFA ; PROVENTIL HFA ; VENTOLIN HFA) 90 mcg/actuation inhaler Inhale 2 puffs by mouth every 6 (six) hours if needed for wheezing. amLODIPine (NORVASC) 10 mg tablet Take 1 tablet (10 mg total) by mouth 1 (one) time each day. 30 each 0 colchicine (MITIGARE) 0.6 mg capsule capsule Take 1 capsule (0.6 mg total) by mouth 1 (one) time each day in the morning. famotidine (PEPCID) 20 mg tablet Take 1 tablet (20 mg total) by mouth 1 (one) time each day. fluticasone propionate (FLONASE) 50 mcg/actuation nasal spray Administer 2 sprays into each nostril1 (one) time each day. Shake gently. Before first use, prime pump. After use, clean tip and replacecap. 16 g 11 loratadine 10 mg capsule Take 10 mg by mouth. metFORMIN (GLUCOPHAGE) 500 mg tablet Take 1 tablet (500 mg total) by mouth 1 (one) time each day with breakfast. naloxone (NARCAN) 4 mg/actuation nasal spray KIT (Take home med ONLY) Administer 1 spray (4 mg total) into affected nostril(s) See administration instructions. oxyCODONE (ROXICODONE) 5 mg immediate release tablet Take 1 tablet (5 mg total) by mouth 3 (three) times a day if needed for severe pain. Max Daily Amount: 15 mg 6 tablet 0 pantoprazole (PROTONIX) 40 mg EC tablet Take [...] by mouth 3 (three) times a day. ALLERGIES: Allergies Allergen Reactions Aspirin Rash Penicillins Rash Vancomycin PHYSICAL EXAM: Visit Vitals Ht 1.702 m (67.01 ) Wt 108 kg (238 lb) BMI 37.27 kg/m?? Smoking Status Never BSA 2.18 m?? PODIATRIC EXAMINATION: GENERAL: Patient appears well nourished, with NAD. VASCULAR: Dorsalis pedis pulses are 1/4 bilaterally and Posterior tibial pulses are 1/4 bilaterally. Capillary filling time within normal limits the digits. No pallor on elevation or rubor on dependency. No varicosities. Denies rest pain or claudication pain. NEUROLOGICAL: Sharp/dull sensation intact, protective sensation intact 10/10 with 5.07 semmes hector bilaterally, vibratory sensation with tuning fork intact to the tibial tuberosity. ORTHOPEDIC: Good muscle strength 5/5 of all flexors and extensors. Dorsi flexion of ankle ,10 degrees, plantar flexion WNL. No muscle atrophy. DERMATOLOGICAL:. Toenails: Left Toenail(s) 1-5: Crumbling upon debridement, subungual debris, discoloration, dystrophy, elongation, mycotic appearance, onychomycosis, pain and thickening. Right Toenail(s) 1-5: Crumbling upon debridement, subungual debris, discoloration, dystrophy, elongation, mycotic appearance, onychomycosis, pain and thickening. Annular scaling bilateral feet moccasin distribution Skin thinning texture shiny appearance diffuse hyperpigmentation bilaterally pedal hair decreased BIOMECHANICS: Ankle ROM WNL, STJ ROM wnl, MTJ ROM wnl, 1st MPJ ROM mild track bound bunion bilateral . Symmetric fat pad she bilaterally with tailor's bunionette deformities bilateral metatarsalgia bilateral fat pad atrophy a preulcerative lesion subfifth metatarsal bilateral IMAGING: IMPRESSION: 1. Metatarsalgia of both feet 2. Pain in right wrist 3. Dermatophytosis of nail 4. Pain in toe of right foot 5. Pain in toe of left foot 6. Diabetic mononeuropathy simplex (CMS/HCC) PLAN: Pt was seen and examined, history reviewed. Supportive shoe gear orthotics insoles and metatarsal pads were discussed and reviewed Discussed with patient regarding proper glucose control, exercise, and diet. Explained to patient proper shoe gear, and importance of daily foot checks. I reviewed neuropathy and why it occurs in diabetics. I educated the patient on proper blood sugar control and the importance of an HgBA1c of less than 7.0%. I reviewed the signs and symptoms of neuropathy with the patient Clotrimazole recommended [id number] options were given Pt to return for another evaluation in 3 months. Debridement of mycotic toenails 6-10: Verbal informed consent was obtained from the patient. Greater than 6 nails were aseptically debrided in thickness and length with nail nippers Lee Delaney DPM documented in this encounter Plan of Treatment Upcoming Encounters Date Type Department Care Team (Late st Contact Info) Description 09/14/2024 11:00 AM EDT Office Visit Orthopedic Surgery - [place] [address] [phone] Lee Delaney DPM [address] [phone] documented as of this encounter Visit Diagnoses Diagnosis Metatarsalgia of both feet- Primary Pain in right wrist Pain in joint, forearm Dermatophytosis of nail Pain in toe of right foot Pain in soft tissues of limb Pain in toe of left foot Pain in soft tissues of limb Diabetic mononeuropathy simplex (CMS/HCC) Type II or unspecified type diabetes mellitus with neurological manifestations, not stated as uncontrolled documented in this encounter Orders Outpatient Referral Count Last Ordered Date Fir st Ordered Date AMB REFERRAL TO ORTHOPEDIC 1 06/15/2024 documented in this encounter Additional Health Concerns Infection Onset Date Last Indicated Resolved Time Norovirus 05/20/2024 05/20/2024 documented as of this encounter Care Teams Warehouse Examiner Relationship Specialty Start Date End Date Kalpana Baptiste MD [address] [phone] PCP - General Internal Medicine 05/18/24 documented as of this encounter
--- OUTSIDE RECORDS SUMMARY | 2024-07-09 10:38 | XMS_ITS | Encounter Summary ---
Author Organization [employer] Address [address] [place] [address] Care Team Providers Care Emergency Physician Name Role Phone Kalpana Baptiste MD Primary Care Provide r Reason for Visit * Reason Comments Med Refill Encounter Details Date Type Department Care Team ([facility] st Contact Info) Description 01/28/2024 Refill [facility] [address] [place], [place] [phone] Caryl Biggs MD [address] [place] [address] Primary osteoarthritis of both knees Social History [...] Description 08/05/2024 1:00 PM EDT Office Visit [facility] [address] [place] [phone] Kalpana Baptiste MD [address] [place] [phone] 08/12/2024 11:30 AM EDT Clinical Support [address] [address] Amanda Waldrop, NEGAR documented as of this encounter Visit Diagnoses Diagnosis Primary osteoarthritis of both knees documented in this encounter Additional Health Concerns Assessment Noted Time PHQ-9 Depression Total Score: 0 08/22/19 23 10:06 AM EDT documented as of this encounter Care Teams Emergency Physician Relationship Specialty Start Date End Date Kalpana Baptiste MD [address] [place] [phone] PCP - General Family Medicine 06/14/20 documented as of this encounter
--- OUTSIDE RECORDS SUMMARY | 2024-07-09 10:38 | XMS_ITS | Encounter Summary ---
Author Organization [facility] Address [address] [phone] Phone Care Team Providers Care Nursing Service Administrator Name Role Phone Kalpana Baptiste MD Primary Care Provide r Reason for Visit * Reason Comments Stage 3b chronic kidney disease Encounter Details Date Type Department Care Team ([facility] st Contact Info) Description 06/14/2024 4:15 PM EST Office Visit [facility] [address] [place] [phone] Eben Us MD [address] [phone] Stage 3b chronic kidney disease (HCC) (Primary Dx); Renal disorder due to type 2 diabetes mellitus <Diabetic nephropathy> (HCC); Persistent proteinuria; Essential hypertension Social History Tobacco Use Types Packs/Day Years [...] oz) 06/14/2024 3:44 P M EST Height - - Body Mass Index 37.24 08/27/2018 12:00 PM EDT documented in this encounter Patient Instructions * Patient Instructions* Eben Us MD - 06/14/2024 4:15 PM EST No NSAIDS - Do not take non-steroidal anti-inflammatory medications (NSAIDS) such as Ibuprofen (Advil, Motrin, etc), Naproxen (Aleve, etc), Celecoxib (Celebrex) or Ketoprofen. These common arthritis medications can cause permanent kidney damage or worsen your kidney damage. For mild occasional pain, Acetaminophen (Tylenol, etc) is safe for your kidneys. Sodium and Your CKD Diet: How to Spice Up Your Cooking What is sodium? Sodium is a mineral found naturally in foods and is the major part of table salt. What are the effects of eating too much sodium? When your kidneys are not healthy, extra sodium and fluid build up in your body. This can cause swollen ankles, puffiness, a rise in blood pressure, shortness of breath, and/or fluid around your heart and lungs. See the following table for suggestions on how to reduce sodium in your diet. LIMIT THE [AMOUNT OF... FOOD TO LIMIT BECAUSE OF THEIR HIGH SODIUM CONTENT ACCEPTABLE SUBSTITUTES SALT & SALT SEASONINGS Table salt Seasoning salt Garlic salt Onion salt Celery salt Lemon pepper Lite salt Meat tenderizer Bouillon cubes Flavor enhancers Fresh garlic, fresh onion, garlic powder, onion powder, black [pepper, lemon juice, low-sodium/salt-free seasoning blends, vinegar SALTY FOODS Barbecue sauce Steak sauce Soy sauce Teriaky sauce Oyster sauce Salted Snacks such as Crackers Potato chips [place]ton chips Pretzels Tortilla chips Nuts Popcorn Tingley seeds Homemade or low- sodium sauces and salad dressings; Vinegar, dry mustard, unsalted popcorn, pretzels, tortilla or corn chips Cured Foods Ham Salt pork [place] Sauerkraut Pickles, pickle relish Lox & Gomes Olives Fresh beef, veal, pork, poultry, fish, eggs [place] MEATS Hot Dogs Cold cuts, deli meats Pastrami Sausage Corned beef Spam Low-salt deli meats PROCESSED FOODS Buttermilk Cheese Canned: Soups Tomato products Vegetable juices Canned vegetables Convenience Foods such as: TV Dinners Canned raviolis [place] Macaroni & Cheese Spaghetti Frozen prepared foods Fast foods Natural cheese (1-2 oz Per week) Homemade or haris,1- sodium soups, canned food without added salt Homemade casseroles without added salt, made with fresh or raw vegetables, fresh meat, lexii, pasta, or unsalted canned vegetables Some salt or sodium is needed for body water balance. But when your kidneys lose the ability to control sodium and water balance, you may experience the following: thirst fluid gain high blood pressure discomfort during dialysis By using less sodium in your diet, you can control these problems. Hints to keep your sodium intake down Cook with herbs and spices instead of salt. (Refer to Spice Up Your Cooking section for further suggestions.) Read food labels and choose those foods low in sodium. Avoid salt substitutes and specialty low-sodium foods made with salt substitutes because they are high in potassium. When eating out, ask for meat or fish without salt. Ask for gravy or sauce on the side; these may contain large amounts of salt and should be used in small amounts . Limit use of canned, processed and frozen foods. Some information about reading labels Understanding the terms: Sodium Free - Only a trivial amount of sodium per serving. Very Low Sodium - 35 mg or less per serving. Low Sodium - 140 mg or less per serving. Reduced Sodium - Foods in which the level of sodium is reduced by 25%. Light or Lite in Sodium - Foods in which the sodium is reduced by at least 50% . Simple rule of thumb : If salt is listed in the first five ingredients, the item is probably too high in sodium to use. All food labels now have milligrams (mg) of sodium listed. Follow these steps when reading the sodiwn information on the label: 1. Know how much sodium you are allowed each day. Remember that there are 1000 milligrams (mg) in 1gram. For [id number], if your diet prescription is 2 grams of sodium , your limit is 2000 milligrams per day. Consider the sodium value or other food to be eaten during the day. 2. Look at the package label. Check the serving size. Nutrition values are expressed per christian g. How does this compare to your total daily allowance? If the sodium level is 500 mg or more per serving, the item is not a good choice. 3. Compare labels of similar products. Select the lowest sodium level for the same serving size. How to Spice Up Your Cooking Giving up salt does not mean giving up flavor. Learn to season your food with herbs and spices. Be creative and experiment for a new and exciting flavor. What kinds of spices and herbs should I use instead of salt to add flavor? Try the following spices with the foods listed. Allspice: Use with beef, fish, beets, cabbage, canots, peas, fruit. Basil: Use with beef, pork, most vegetables. [place]: Use with beef, pork, most vegetables. Stanley: Use with beef, pork, green beans, cauliflower, cabbage, beets, asparagus, and in dips and marinades. Cardamom: Use with fruit and in baked goods. Ware: Use with beef, chicken, pork, fish, green beans, carrots and in marinades. Dill: Use with beef, chicken, green beans, cabbage, carrots, peas and in dips. Martha: Use with beef, chicken, pork, green beans, cauliflower and eggplant. Marjoram: Use with beef, chicken, pork, green beans, cauliflower and eggplant. Marisela: Use with chicken, pork, cauliflower, peas and in marinades. Thyme: Use with beef, chicken, pork, fish, green beans, beets and carrots. Femi: Use with chicken, pork, eggplant and in dressing. Tarragon: Use with fish, chicken, asparagus, beets, cabbage, cauliflower and in marinades. Tips for cooking with herbs and spices Purchase spices and herbs in small amounts . When they sit on the shelf for years they lose their flavor. Use no more than ?? teaspoon of dried spice (?? of fresh) per pound of meat. Add ground spices to food about 15 minutes before the end of the cooking period. Add whole spices to food at least one hour before the end of the cooking period. Combine herbs with oil or butter, set for 30 minutes to bring out their flavor, then brush on foodswhile they cook, or brush meat with oil and sprinkle herbs one hour before coolcing. Crush dried herbs before adding to foods. Can I use salt substitutes? Caution! If you are told to limit potassium in your diet, be very cautious about using salt substitutes because most of them contain some form of potassium. Check with your doctor or dietitian beforeusing and salt substitute. [place] and create your own seasoning containing those spices that you like. If you would like to become a volunteer and find out more about what's happening where you live, contact your local [facility] Affiliate. Blood pressure monitoring education: Monitor home blood pressure values after sitting for 5 minutes with back and arm support. Keep a log. Bring your log and blood pressure cuff to your next visit. documented in this encounter Progress Notes * Eben Us MD - 06/14/2024 4:15 PM EST Images from the original note were not included. Patient Name: Santa Kate, Female Date of : 1965, 59 y.o. Date: 06/14/24 [] New Patient [x] Established Patient [] New Hospital Follow Up [] Established Hospital Follow Up [] Telemed Visit [] H&P Referring MD: No primary care provider on file. PCP: Kalpana Baptiste MD Reason For Visit CKD 3, DM, HTN, Anemia, H/O BM XPant Santa Kate is a 59 y.o. female seen today in f/u regarding stage 3 CKD on backdrop of DM and HTN. Since last seen hosp last month w epsiode of dehydration JUSTINO peak Scr 2.5 Overall doing ok. Cont c/o back pain radiating to L leg--using a walker. She has ongoiing eval by orhto and back specialist. Cont Has f/u with [facility] re: BM Xplant and C ( Bobby) She avoids NSAIDs. Meds as noted. Denies chest pain or shortness of breath. No blood in the urine or difficulties urinating. Complains of mild arthritic complaints but avoids use of NSAIDs. The following portions of the patient's chart were reviewed in this encounter and updated as appropriate: Allergies Meds Problems Med Hx Surg Hx Fam Hx Constitutional: Negative for chills and fever. Respiratory: Negative for cough and shortness of breath. Cardiovascular: Negative for chest pain, palpitations and leg swelling. Gastrointestinal: Negative for abdominal pain, nausea and vomiting. Genitourinary: Negative for dysuria, frequency, hematuria and urgency. Musculoskeletal: Positive for back pain and joint pain. Full 13 point review of systems unremarkable except as noted above. Past Medical History: Diagnosis Date Anemia Asthma Essential hypertension Hyperlipidemia Sleep apnea Past Surgical History: Procedure Laterality Date OTHER SURGICAL HISTORY bone marrow transplant Social History Tobacco Use Smoking status: Former Smokeless tobacco: Former Tobacco comments: Smoking History Info:Every day Substance Use Topics Alcohol use: No Family History Problem Relation Age of Onset Kidney disease Father Kidney disease Mother Current Outpatient Medications Medication Sig Dispense Refill acetaminophen (TYLENOL) 500 MG tablet Take by mouth every 6 (six) hours if needed for mild pain albuterol (5 MG/ML) 0.5% nebulizer solution Albuterol Sulfate (ProAir RespiClick) 108 (90 Base) MCG/ACT aerosol powder allopurinol (ZYLOPRIM) 100 MG tablet Take 100 mg by mouth 1 (one) time each day amLODIPine (NORVASC) 10 MG tablet Take 1 tablet by mouth 1 (one) time each day Canagliflozin (Invokana) 100 MG tablet Take by mouth cholecalciferol (VITAMIN D-3) 25 MCG (1000 UT) capsule Take 1 capsule by mouth 1 (one) time each day citalopram (CeleXA) 40 MG tablet Take 40 mg by mouth 1 (one) time each day fluticasone HFA (FLOVENT HFA) 110 MCG/ACT inhaler Inhale 1 puff 2 (two) times a day Rinse mouth with water after use to reduce aftertaste and incidence of candidiasis. Do not swallow. folic acid (FOLVITE) 1 MG tablet Take 1 mg by mouth 1 (one) time each day lisinopril 5 MG tablet Take 5 mg by mouth 1 (one) time each day metFORMIN (GLUCOPHAGE) 500 MG tablet Take 1 tablet by mouth 2 (two) times a day mirtazapine (REMERON) 15 MG tablet Take 15 mg by mouth every night ruxolitinib (JAKAFI) 5 MG chemo tablet Take 5 mg by mouth in the morning and 5 mg in the evening. Take at about the same time each day. Take with or without food. . senna (SENOKOT) 8.6 MG tablet Take 1 tablet by mouth 1 (one) time each day SITagliptin (JANUVIA) 50 MG tablet Take 50 mg by mouth 1 (one) time each day tolterodine (DETROL) 2 MG tablet Take 2 mg by mouth in the morning and 2 mg in the evening. 4mg . traMADol (ULTRAM) 50 MG tablet Take 50 mg by mouth every 6 (six) hours if needed for moderate pain No current facility-administered medications for this visit. Allergies Allergen Reactions Aspirin Other (see comments) Penicillin V Other (see comments) Vancomycin Other reaction(s): Rash, Rash Objective: Vitals: 06/14/24 1544 BP: 132/70 BP Location: Right upper arm Patient Position: Sitting BP Cuff Size: Large adult Pulse: 93 SpO2: 97% Weight: 237 lb 12.8 oz (108 kg) 128/70 Vitals reviewed. Constitutional: She appears well-developed. No distress. Cardiovascular: Normal rate, regular rhythm and normal heart sounds. She exhibits no edema. Pulmonary/Chest: Effort normal and breath sounds normal. No respiratory distress. Abdominal: Soft. There is no abdominal tenderness. No hernia. Skin: Skin is warm and dry. Psychiatric: She has a normal mood and affect. Her behavior is normal. No results found for: EGFRAFR eGFR Non-Afr Kyrgyz Date Value Ref Range Status 06/19/2021 36 Final Chemistry Lab Units 05/20/24 0602 05/19/24 0551 05/18/24 0037 09/05/22 1339 CREATININE mg/dL 1.75* 2.06* 2.57* 1.48* BUN mg/dL 18 26* 35* 16 BUN / CREAT RATIO 10.3 12.6 13.6 -- GLUCOSE mg/dL 106* 115* 131* -- POTASSIUM mmol/L 4 3.9 4.3 4.2 SODIUM mmol/L 138 138 140 141 CO2 mmol/L 24 22 20* 21* CHLORIDE mmol/L 111* 108 109 106 ALBUMIN g/dL -- -- 4.3 4.2 BILIRUBIN TOTAL mg/dL -- -- 0.5 -- AST unit/L -- -- 46* -- Bone Mineral Lab Units 05/20/24 0602 05/19/24 0551 05/18/24 0037 09/05/22 1339 CALCIUM mg/dL 8* 7.8* 8.9 9.0 PHOSPHORUS mg/dL -- -- -- 3.4 ALK PHOS unit/L -- -- 78 -- MAGNESIUM mg/dL -- -- -- 1.6 PTH pg/mL -- -- -- 72 VITAMIN D ng/mL -- -- -- 30.5 CBC Lab Units 09/05/22 1339 WBC AUTO X10*3/uL 6.6 RBC AUTO X10*6/uL 3.33* MCV fL 89.5 HEMATOCRIT % 29.8* HEMOGLOBIN g/dl 10.0* PLATELETS AUTO X10*3/uL 253 Urine Lab Units 09/05/22 1457 PROT/CREAT RATIO UR 0.71* ALB MG/G CREAT UR ug/mg cr 514.0 Urine Lab Units 09/05/22 1457 PH U 5.0 COLOR U Yellow GLUCOSE U MG/DL mg/dL Negative WBC UR HPF /HPF 0-5 RBC UR HPF /HPF 0-2 PLAN: Assessment & Plan 59 Y/O hF STAGE 3B CKD DIABETIC HYPERTENSIVE PATEINT H/O BMT 1. JUSTINO epsidoe d/t dehydartion peak Scr 2.6--> 1.75 at time of d/c w rehydration 2. CKD 3: most c/w DN 3. HTN: controlled; goal < 130/80 4. H/O BMT for myelofibrosis 5. Obesity 6. Albuminuria: hg/o of low grade but need to repeat 7. Anemia: cont f/u Heme--ques nutrtional def ( Fe) and/or epo def vs recurrence of Myelofibrosis 8. HyperK: resolved 9. Gout: on/off attacks To Maximize renal protection: - cont use DOC-inhibitor ( PAT or ARB) -cont SGLT2i -add Kerendia in future - LDL target < 70 - cont to stress strict BP/BS control and avoid NSAIDS PLAN; stress importance of NSAIDs; repeat renal labs q 3months; consider adding Kerendi if ok'd by Heme/Onc; Stress BS/BP control to delay progression; check PTH as at risk for MBD of CKD Check UAL as may need incr allupurinol 1. Stage 3b chronic kidney disease (HCC) 2. Renal disorder due to type 2 diabetes mellitus <Diabetic nephropathy> (HCC) 3. Persistent proteinuria 4. Essential hypertension Orders Placed This Encounter PTH, Intact Renal Function Panel Urinalysis with microscopic Urine Albumin / Creatinine Ratio Urine Culture Protein, Total, Random Urine w/Creatinine (Protein/Creat Ratio) Vitamin D 25 Hydroxy CBC Phosphorus Magnesium Albumin Calcium Return in about 6 months (around 12/12/2024). Eben Us MD documented in this encounter Plan of Treatment Upcoming Encounters Date Type Department Care Team (Late st Contact Info) Description 12/14/2024 1:30 PM EDT Office Visit [facility] [address] [phone] Eben Us MD [address] [phone] Scheduled Orders Name Type Priority Associated Diagnoses Orde r Schedule PTH, Intact Lab Today Stage 3b chronic kidney disease (HCC) Renal disorder due to type 2 diabetes mellitus <Diabetic nephropathy> (HCC) Persistent proteinuria Essential hypertension Expected: 06/14/2024, Expires: 07/12/2025 Renal Function Panel Lab Today Stage 3b chronic kidney disease (HCC) Renal disorder due to type 2 diabetes mellitus <Diabetic nephropathy> (HCC) Persistent proteinuria Essential hypertension Expected: 06/14/2024, Expires: 07/12/2025 Urinalysis with microscopic Lab Today Stage 3b chronic kidney disease (HCC) Renal disorder due to type 2 diabetes mellitus <Diabetic nephropathy> (HCC) Persistent proteinuria Essential hypertension Expected: 06/14/2024, Expires: 07/12/2025 Urine Albumin / Creatinine Ratio Lab Today Stage 3b chronic kidney disease (HCC) Renal disorder due to type 2 diabetes mellitus <Diabetic nephropathy> (HCC) Persistent proteinuria Essential hypertension Expected: 06/14/2024, Expires: 07/12/2025 Urine Culture Lab Today Stage 3b chronic kidney disease (HCC) Renal disorder due to type 2 diabetes mellitus <Diabetic nephropathy> (HCC) Persistent proteinuria Essential hypertension Expected: 06/14/2024, Expires: 07/12/2025 Protein, Total, Random Urine w/Creatinine (Protein/Creat Ratio) Lab Today Stage 3b chronic kidney disease (HCC) Renal disorder due to type 2 diabetes mellitus <Diabetic nephropathy> (HCC) Persistent proteinuria Essential hypertension Expected: 06/14/2024, Expires: 07/12/2025 Vitamin D 25 Hydroxy Lab Today Stage 3b chronic kidney disease (HCC) Renal disorder due to type 2 diabetes mellitus <Diabetic nephropathy> (HCC) Persistent proteinuria Essential hypertension Expected: 06/14/2024, Expires: 07/12/2025 CBC Lab Today Stage 3b chronic kidney disease (HCC) Renal disorder due to type 2 diabetes mellitus <Diabetic nephropathy> (HCC) Persistent proteinuria Essential hypertension Expected: 06/14/2024, Expires: 07/12/2025 Phosphorus Lab Today Stage 3b chronic kidney disease (HCC) Renal disorder due to type 2 diabetes mellitus <Diabetic nephropathy> (HCC) Persistent proteinuria Essential hypertension Expected: 06/14/2024, Expires: 07/12/2025 Magnesium Lab Today Stage 3b chronic kidney disease (HCC) Renal disorder due to type 2 diabetes mellitus <Diabetic nephropathy> (HCC) Persistent proteinuria Essential hypertension Expected: 06/14/2024, Expires: 07/12/2025 Albumin Lab Today Stage 3b chronic kidney disease (HCC) Renal disorder due to type 2 diabetes mellitus <Diabetic nephropathy> (HCC) Persistent proteinuria Essential hypertension Expected: 06/14/2024, Expires: 07/12/2025 Calcium Lab Today Stage 3b chronic kidney disease (HCC) Renal disorder due to type 2 diabetes mellitus <Diabetic nephropathy> (HCC) Persistent proteinuria Essential hypertension Expected: 06/14/2024, Expires: 07/12/2025 documented as of this encounter Visit Diagnoses Diagnosis Stage 3b chronic kidney disease (HCC)- Primary Renal disorder due to type 2 diabetes mellitus <Diabetic nephropathy> (HCC) Persistent proteinuria Essential hypertension documented in this encounter Care Teams Nursing Service Administrator Relationship Specialty Start Date End Date Kalpana Baptiste MD [address] [place] [phone] PCP - General Internal Medicine 07/03/21 documented as of this encounter
--- OUTSIDE RECORDS SUMMARY | 2024-07-09 10:38 | XMS_ITS | Encounter Summary ---
Author Organization [employer] Address [address] [place] [address] Care Team Providers Care Aerospace Medicine Physician Name Role Phone Kalpana Baptiste MD Primary Care Provide r Reason for Visit * Reason Comments Med Refill Encounter Details Date Type Department Care Team ([facility] st Contact Info) Description 02/09/2024 Refill [facility]INE [address] [place], [place] [phone] Caryl Biggs MD [address] [place] [address] Primary osteoarthritis of both knees Social History [...] Description 08/05/2024 1:00 PM EDT Office Visit [facility] [address] [place] [phone] Kalpana Baptiste MD [address] [place] [phone] 08/12/2024 11:30 AM EDT Clinical Support [address] [phone] Amanda Waldrop, NEGAR documented as of this encounter Visit Diagnoses Diagnosis Primary osteoarthritis of both knees documented in this encounter Additional Health Concerns Assessment Noted Time PHQ-9 Depression Total Score: 0 08/22/19 23 10:06 AM EDT documented as of this encounter Care Teams Aerospace Medicine Physician Relationship Specialty Start Date End Date Kalpana Baptiste MD [address] [place] [phone] PCP - General Family Medicine 06/14/20 documented as of this encounter
--- OUTSIDE RECORDS SUMMARY | 2024-07-09 10:38 | XMS_ITS | Referral Summary ---
Author Organization [facility] Address [address] [place] [address] Care Team Providers Care Parking Lot Supervisor Name Role Phone Kalpana Baptiste MD [...] 03/29/2015 Acute pharyngitis 12/29/2013 Cough 06/16/2013 Chronic ehqlk-nwoeaf-wcnv disease 05/19/2013 Headache 03/24/2013 Dysuria 12/30/2012 Abdominal [...] Info) Description 08/04/2024 12:00 PM EDT Lab [facility] ACC Draw Site Fifth Floor [address] [place] [address] 08/04/2024 1:00 PM EDT Follow-Up [facility] [address] [place] [address] Vivek Bernal MD PhD [address] [place] [address] Procedures * Due to [place] state law, this organization might not be sharing negative HIV tests. Procedure Name Priority Date/Time Associated Diagnosis Comments CBC AUTO DIFFERENTIAL STAT 02/04/2024 10:26 AM EDT Chronic fggte-wblgag-eqlw disease (HCC) COMPREHENSIVE METABOLIC PANEL STAT 02/04/2024 10:26 AM EDT Chronic snqit-rkrhfp-fdza disease (HCC) HEMOGLOBIN A1C Routine 08/11/2017 10:41 [...] to Health Maintenance Results * Due to [place] state law, this organization might not be sharing negative HIV tests. * (ABNORMAL) CBC Auto Differential (02/04/2024 10:26 AM EDT) WBC 4.6 3.8 - 10.8 10*3/uL 02/04/2024 10:53 AM EDT [facility] RBC 3.40(L) 3.80 - 5.10 10*6/uL 02/04/2024 10:53 AM EDT [facility] Hemoglobin 9.8(L) 11.7 - 15.5 g/dL 02/04/2024 10:53 AM EDT [facility] Hematocrit 30.3(L) 35.0 - 45.0 % 02/04/2024 10:53 AM EDT [facility] MCV 89.1 80.0 - 100.0 fL 02/04/2024 10:53 AM EDT [facility] MCH 28.8 27.0 - 33.0 pg 02/04/2024 10:53 AM EDT [facility] MCHC 32.3 32.0 - 36.0 g/dL 02/04/2024 10:53 AM EDT [email or web address] RDW 13.2 11.0 - 15.0 % 02/04/2024 10:53 AM EDT [facility] Platelets 241 140 - 400 10*3/uL 02/04/2024 10:53 AM EDT [facility] MPV 9.2 7.5 - 12.5 fL 02/04/2024 10:53 AM EDT [facility] Neutrophil % 44.4 % 02/04/2024 10:53 AM EDT [email or web address] Immature Grans % 0.9 0.0 - 0.9 % 02/04/2024 10:53 AM EDT [email or web address] Lymphocyte % 43.4 % 02/04/2024 10:53 AM EDT [email or web address] Monocyte % 10.2 % 02/04/2024 10:53 AM EDT [email or web address] Eosinophil % 0.9 % 02/04/2024 10:53 AM EDT [email or web address] Basophil % 0.2 % 02/04/2024 10:53 AM EDT [facility] Neutrophil # 2.06 1.50 - 7.80 10*3/uL 02/04/2024 10:53 AM EDT [facility] Immature Grans # 0.04(H) <=0.03 10*3/uL 02/04/2024 10:53 AM EDT [facility] Lymphocyte # 2.00 0.85 - 3.90 10*3/uL 02/04/2024 10:53 AM EDT [facility] Monocyte # 0.50 0.20 - 0.95 10*3/uL 02/04/2024 10:53 AM EDT [facility] Eosinophil # <0.03 0.02 - 0.50 10*3/uL 02/04/2024 10:53 AM EDT [facility] Basophil # <0.03 0.00 - 0.20 10*3/uL 02/04/2024 10:53 AM EDT [facility] nRBC % 0.0 /100 WBCs 02/04/2024 10:53 AM EDT [facility] nRBC # <0.01 <0.01 10*3/uL 02/04/2024 10:53 AM EDT [facility] Total Neutrophil #, Preliminary 2.06 1.50 - 7.80 10*3/uL 02/04/2024 10:53 AM EDT [facility] Blood Structure of peripheral vein / Unknown Venipuncture / Unknown 02/04/2024 10:26 AM EDT 02/04/2024 10:43 AM EDT us Aylin MORROW LAB BLOOD ORDERABLES Gabi l Result [facility] [address] [place] [address], * (ABNORMAL) Comprehensive Metabolic Panel (02/04/2024 10:26 AM EDT) NA 142 135 - 145 mmol/L 02/04/2024 11:17 AM EDT [facility] K 4.0 3.5 - 5.3 mmol/L 02/04/2024 11:17 AM EDT [facility] Cl 105 98 - 107 mmol/L 02/04/2024 11:17 AM EDT [facility] CO2 24 22 - 32 mmol/L 02/04/2024 11:17 AM EDT [facility] Anion Gap 13 5 - 15 02/04/2024 11:17 AM EDT [facility] Glucose 110(H) 65 - 99 mg/dL 02/04/2024 11:17 AM EDT [facility] Creatinine 1.57(H) 0.50 - 1.20 mg/dL 02/04/2024 11:17 AM EDT [facility] Calcium 8.5(L) 8.6 - 10.5 mg/dL 02/04/2024 11:17 AM EDT [facility] Total Protein 7.2 6.0 - 8.0 g/dL 02/04/2024 11:17 AM EDT [facility] Albumin 4.5 3.5 - 5.2 g/dL 02/04/2024 11:17 AM T [facility] Bilirubin, Total 0.3 0.2 - 1.2 mg/dL 02/04/2024 11:17 AM [facility] Alkaline Phosphatase 71 35 - 129 U/L 02/04/2024 11:17 AM EDT [facility] AST 37 10 - 40 U/L 02/04/2024 11:17 AM [facility]Jul[facility] ALT 43(H) 10 - 40 U/L 02/04/2024 11:17 AM [facility] BUN 19 7 - 23 mg/dL 02/04/2024 11:17 AM [facility] eGFR 38(L) >=60 mL/min/1 .73m2 02/04/2024 11:17 AM [facility] Comment:The estimated glomer ular [...] 2.1 - 4.2 g/dL 02/04/2024 11:17 AM [facility] the [facility] A/G Ratio 1.7 1.5 - 3.0 02/04/2024 11:17 AM [facility] 5[employer] BaseWASHINGTON COUNTY MEM[facility]IAL HOSPITALHickiesNV [facility] Blood Structure of peripheral vein / Unknown Venipuncture / Unknown 02/04/2024 10:26 AM EDT 02/04/2024 10:43 AM EDT us Aylin MORROW LAB BLOOD ORDERABLES Gabi l Result [facility] [address] [place] [address], * (ABNORMAL) Vitamin D, 25-Hydroxy, Total, Immunoassay (08/11/2017 10:41 AM EDT) Calcidiol+ercalc idiol 24(L) 30 - 100 ng/mL 08/11/2017 7:50 PM EDT [facility] Comment: Vitamin D Status ? 25-OH Vitamin D: Deficiency: ?<20 ng/mL Insufficiency: ? 20 - 29 ng/mL Optimal: ? > or = 30 ng/mL For 25-OH Vitamin D testing on patients on D2-supplementation and patients for whom quantitation of D2 and D3 fractions is required, the QuestAssureD(TM) 25-OH VIT D, (D2,D3), LC/MS/MS is recommended: order code 32796 (patients >2yrs). For more information on this test, go to: http://education.[employer]/faq/JNO502 (This link is being provided for informational/educational purposes only.) Blood specimen (specimen) Structure of peripheral vein / Unknown Venipuncture / Unknown 08/11/2017 10:41 AM EDT 08/11/2017 10:57 AM EDT Narrative [facility] - 08/11/2017 7:50 PM EDT [facility] Received Date: Aylin MORROW LAB BLOOD ORDERABLES Gabi l Result [facility] [address] [facility] [address] Floor, [place] [address], [place] [phone] [facility] [address] [facility] [address]rd Floor, [place] [address], [place] [phone] * (ABNORMAL) Hemoglobin A1c (08/11/2017 10:41 AM EDT) Hemoglobin A1C 5.8(H) <5.7 % of total Hgb 08/11/2017 7:12 PM EDT [facility] Comment: For someone without known diabetes, a [...] (MG/DL) 120 (calc) 08/11/2017 7:12 PM EDT [facility] eAG (MMOL/L) 6.6 (calc) 08/11/2017 7:12 PM EDT [facility] Blood specimen (specimen) Structure of peripheral vein / Unknown Venipuncture / Unknown 08/11/2017 10:41 AM EDT 08/11/2017 10:57 AM EDT Mariajose GIO CRUZ - 08/11/2017 7:12 PM EDT [facility] Received Date: Aylin MORROW LAB BLOOD ORDERABLES Gabi l Result G[facility] [address] [facility] [address], [place] [address], [facility] [address] [facility] 3rd [address], [place] [address], * HEPATITIS C ANTIBODY, CONVERSION (08/09/2013 3:20 PM EDT) Pathologist [facility] Hepatitis C Antibody 0.06 <1.00 [facility] HCV Interpretation Negative [facility] Comment: Not infected with HCV, unless recent infection is suspected or other evidence exists to indicate HCV infection. 08/09/2013 3:20 PM EDT 08/09/2013 4:45 PM EDT us Vivek Bernal MD PhD LAB HISTORICAL RESULTS Final Re sult Performing Organization Address [facility] Co de Phone Number [facility] [address] [place] [address], [place] * HIV-1/2 Antigen/Antibodies 4th Generation w/Reflex (08/09/2013 3:20 PM EDT) HIV 1,2 Ab/Ag Stat NEGATIVE NEGATIVE [facility] 08/09/2013 3:20 PM EDT 08/09/2013 4:45 PM EDT us Vivek Bernal MD PhD LAB BLOOD ORDERABLES Final Resu lt Performing Organization Address [facility] de Phone Number [facility] [address] [place] [address], [place] * Phosphorus (10/08/2012 3:00 AM EDT) Phosphorus Blood 3.6 2.5 - 4.5 mg/dL [facility] 10/08/2012 3:00 AM EDT 10/08/2012 4:14 AM EDT us Neida Sotelo LAB BLOOD ORDERABLES Final Re sult Performing Organization Address [facility] de Phone Number [facility] [address] [place] [address], [place] * CT Chest W Contrast (08/12/2012 [...] Most Recently Relevant to Health Maintenance Insurance [facility] Advance Directives Documents on File Type Date Recorded Patient Learning Solutions Specialist Expl anation Advance Directive 08/27/2012 12:00 AM Adva nce Care Directives Advance Directive 08/27/2012 12:00 AM Adva nce Care Directives Advance Directive 07/22/2012 12:00 AM emre [email or web address] Dec Making (Adv.Dir) Care Teams Parking Lot Supervisor Relationship Specialty Start Date End Date Kalpana Baptiste MD [address] [place] [phone] PCP - General 11/22/20
--- OUTSIDE RECORDS SUMMARY | 2024-07-09 10:38 | XMS_ITS | Encounter Summary ---
Author Organization [facility] Address [address] 7t [place] [address] Care Team Providers Care Business Process Analyst Name Role Phone Kalpana Baptiste MD Primary Care Provide r Reason for Visit * Reason Comments Med Refill Encounter Details Date Type Department Care Team ([facility] st Contact Info) Description 02/11/2024 Refill [facility] [address] [place], [place] [phone] Caryl Biggs MD [address] [place] [address] Primary osteoarthritis of both knees Social History [...] 1:00 PM EDT Office Visit [facility] [address] [place] [phone] Kalpana Baptiste MD [address] [place] [phone] 08/12/2024 11:30 AM EDT Clinical Support [address] [address] Amanda Waldrop, NEGAR documented as of this encounter Visit Diagnoses Diagnosis Primary osteoarthritis of both knees documented in this encounter Additional Health Concerns Assessment Noted Time PHQ-9 Depression Total Score: 0 08/22/19 23 10:06 AM EDT documented as of this encounter Care Teams Business Process Analyst Relationship Specialty Start Date End Date Kalpana Baptiste MD [address] [place] [phone] PCP - General Family Medicine 06/14/20 documented as of this encounter
--- OUTSIDE RECORDS SUMMARY | 2024-07-09 10:38 | XMS_ITS | Encounter Summary ---
Author Organization [facility] Address [address] 7t [place] [address] Care Team Providers Care Occupational Work Experience Teacher Name Role Phone Kalpana Baptiste MD Primary Care Provide r Reason for Visit * Reason Comments Med Refill Encounter Details Date Type Department Care Team ([facility] st Contact Info) Description 03/23/2024 Refill [facility] [address] [place], [place] [phone] Kalpana Baptiste MD [address] [place] [address] Primary osteoarthritis of both knees; Type 2 diabetes mellitus with other specified complication, unspecified whether [facility] insulin use ([facility]) Social History Tobacco Use Types Packs/Day Years [...] Description 08/05/2024 1:00 PM EDT Office Visit [facility] [address] [place] [phone] Kalpana Baptiste MD [address] [place] [address] 08/12/2024 11:30 AM EDT Clinical Support [facility] [address] [place] [phone] Amanda Waldrop RN documented as of this encounter Visit Diagnoses Diagnosis Primary osteoarthritis of both knees Type 2 diabetes mellitus with other specified complication, unspecified whether 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
--- OUTSIDE RECORDS SUMMARY | 2024-07-09 10:39 | XMS_ITS | Encounter Summary ---
Author Organization [employer] [facility] Address [address] [facility] 7t [place] [address] Care Team Providers Care Seed Sorter Name Role Phone Kalpana Baptiste MD Primary Care Provide r Reason for Visit * Reason Comments Med Refill Encounter Details Date Type Department Care Team ([facility] Contact Info) Description 06/11/2022 Refill [facility] [address] [place], [place] [phone] Neida Garrett DO [address] [place] [address] Social History Tobacco Use Types Packs/Day Years [...] Office Visit [facility] [address] [place], [place] [phone] Kalpana Baptiste MD [address] [place] [phone] 08/12/2024 11:30 AM EDT Clinical Support [facility] [address] [place] [address] [phone] Amnada Waldrop RN documented as of this encounter Visit Diagnoses Not on filedocumented in this encounter Care Teams Seed Sorter Relationship Specialty Start Date End Date Kalpana Baptiste MD [address] [place] [phone] PCP - General Family Medicine 06/14/20 documented as of this encounter
--- OUTSIDE RECORDS SUMMARY | 2024-07-09 10:39 | XMS_ITS | Encounter Summary ---
Author Organization [employer] [facility] Address [address] [address] 7t [place] [address] Care Team Providers Care Floor Coverer Name Role Phone Kalpana Baptiste MD Primary Care Provide r Reason for Visit * Reason Comments Med Refill Encounter Details Date Type Department Care Team ([facility] st Contact Info) Description 03/07/2023 Refill [facility] [address] [place], [place] [phone] Kalpana Baptiste MD 230 [place] [address] Primary osteoarthritis of both knees; Chronic tension-type [...] Description 08/05/2024 1:00 PM EDT Office Visit [address] [address] Kalpana Baptiste MD [address] [place] [address] 08/12/2024 11:30 AM EDT Clinical Support [address] [address] Amanda Waldrop RN documented as of this encounter Visit Diagnoses Diagnosis Primary osteoarthritis of both knees Chronic tension-type headache, not intractable Chronic tension type headache documented in this encounter Additional Health Concerns Assessment Noted Time PHQ-9 Depression Total Score: 0 08/22/19 23 10:06 AM EDT documented as of this encounter Care Teams Floor Coverer Relationship Specialty Start Date End Date Kalpana Baptiste MD [address] [place] [phone] PCP - General Family Medicine 06/14/20 documented as of this encounter
--- OUTSIDE RECORDS SUMMARY | 2024-07-09 10:39 | XMS_ITS | Encounter Summary ---
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 ([facility]) Social History Tobacco Use Types Packs/Day [...] Description 08/05/2024 1:00 PM EDT Office Visit [facility] [address] [place] [phone] Kalpana Baptiste MD [address] [place] [address] 08/12/2024 11:30 AM EDT Clinical Support [address] [address] Amanda Waldrop RN documented as of this encounter Visit Diagnoses Diagnosis Type 2 diabetes mellitus with other specified complication, unspecified whether snf insulin use ([facility]) documented in this encounter Additional Health Concerns Assessment Noted Time PHQ-9 Depression Total Score: 0 08/22/19 23 10:06 AM EDT documented as of this encounter Care Teams Furniture Duster Relationship Specialty Start Date End Date Kalpana Baptiste MD [address] [place] [phone] PCP - General Family Medicine 06/14/20 documented as of this encounter
--- OUTSIDE RECORDS SUMMARY | 2024-07-09 10:39 | XMS_ITS | Encounter Summary ---
Author Organization [employer] Address [address] [facility] [address] 7t [place] [address] Care Team Providers Care Manager Imaging Name Role Phone Kalpana Baptiste MD Primary Care Provide r Reason for Visit * Reason Comments Med Refill Encounter Details Date Type Department Care Team ([facility] st Contact Info) Description 07/02/2024 Refill [facility] [address] [place], [place] [phone] Kalpana Baptiste MD 230 [place] [address] Primary osteoarthritis of both knees Social History [...] Description 08/05/2024 1:00 PM EDT Office Visit [facility] [address] [place] [phone] Kalpana Baptiste MD [address] [place] [address] 08/12/2024 11:30 AM EDT Clinical Support [address] [address] Amanda Waldrop, RN documented as of this encounter Visit Diagnoses Diagnosis Primary osteoarthritis of both knees documented in this encounter Additional Health Concerns Assessment Noted Time PHQ-9 Depression Total Score: 0 05/06/19 25 2:15 PM EST documented as of this encounter Care Teams Manager Imaging Relationship Specialty Start Date End Date Kalpana Baptiste MD [address] [place] [phone] PCP - General Family Medicine 06/14/20 documented as of this encounter
--- OUTSIDE RECORDS SUMMARY | 2024-07-09 10:39 | XMS_ITS | Encounter Summary ---
Author Organization [employer] Address [address] 7t [place] [address] Care Team Providers Care Plumbing And Heating Mechanic Name Role Phone Kalpana Baptiste MD Primary Care Provide r Reason for Visit * Reason Comments Med Refill Encounter Details Date Type Department Care Team ([facility] st Contact Info) Description 04/21/2023 Refill [facility] 230 [place], [place] [phone] Kalpana Baptiste MD 230 [place] [address] Chronic tension-type headache, not intractable Social History [...] Description 08/05/2024 1:00 PM EDT Office Visit [facility] [address] [place] [address] Kalpana Baptiste MD [address] [place] [phone] 08/12/2024 11:30 AM EDT Clinical Support [address] [address] Amanda Waldrop RN documented as of this encounter Visit Diagnoses Diagnosis Chronic tension-type headache, not intractable Chronic tension type headache documented in this encounter Additional Health Concerns Assessment Noted Time PHQ-9 Depression Total Score: 0 08/22/19 23 10:06 AM EDT documented as of this encounter Care Teams Plumbing And Heating Mechanic Relationship Specialty Start Date End Date Kalpana Baptiste MD [address] [place] [phone] PCP - General Family Medicine 06/14/20 documented as of this encounter
--- OUTSIDE RECORDS SUMMARY | 2024-07-09 10:39 | XMS_ITS | Encounter Summary ---
Author Organization [employer] Address [address] [place] [address] Care Team Providers Care Marketing Communications Manager Name Role Phone Kalpana Baptiste MD Primary Care Provide r Reason for Visit * Reason Comments Med Refill Encounter Details Date Type Department Care Team ([facility] st Contact Info) Description 04/02/2024 Refill [facility] 230 [place], [place] [phone] Kalpana Baptiste MD 230 [place] [address] Primary osteoarthritis of both knees; Type 2 diabetes mellitus with other specified complication, unspecified whether intermediate insulin use ([facility]) Social History Tobacco Use Types Packs/Day [...] 1:00 PM EDT Office Visit [facility] [address] [place] [address] Kalpana Baptiste MD [address] [place] [phone] 08/12/2024 11:30 AM EDT Clinical Support [facility] [address] [place] [phone] Amanda Waldrop RN documented as of this encounter Visit Diagnoses Diagnosis Primary osteoarthritis of both knees 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
--- OUTSIDE RECORDS SUMMARY | 2024-07-09 10:39 | XMS_ITS | Encounter Summary ---
Author Organization [employer] Address [address] [facility] 7t [place] [address] Care Team Providers Care Enrobing Machine Feeder Name Role Phone Kalpana Baptiste MD Primary Care Provide r Reason for Visit * Reason Comments Med Refill Encounter Details Date Type Department Care Team ([facility] Contact Info) Description 06/10/2022 Refill [facility] CHC MED & PEDS [address] [place], [place] [phone] Neida Garrett DO [address] [place] [address] Social History Tobacco Use Types Packs/Day Years [...] Upcoming Encounters Date Type Department Care Team ([facility] Contact Info) Description 08/05/2024 1:00 PM EDT Office Visit [facility] MEDICINE [address] [place], [place] [phone] Kalpana Baptiste MD [address] [place] [phone] 08/12/2024 11:30 AM EDT Clinical Support [facility] MEDICINE [address] [place] [address] [phone] Amanda Waldrop RN documented as of this encounter Visit Diagnoses Not on filedocumented in this encounter Care Teams Enrobing Machine Feeder Relationship Specialty Start Date End Date Kalpana Baptiste MD [address] [place] [phone] PCP - General Family Medicine 06/14/20 documented as of this encounter
--- OUTSIDE RECORDS SUMMARY | 2024-07-09 10:39 | XMS_ITS | Encounter Summary ---
Author Organization [employer] Address [address] 7[address] [place] [address] Care Team Providers Care Telegraph Mechanic Name Role Phone Kalpana Baptiste MD Primary Care Provide r Encounter Details Date Type Department Care Team ([facility] st Contact Info) Description 06/22/2024 1:00 PM EST Office Visit [facility] OPTOMETRY [address] [place] [address] Jonathon, Beata, OD [address] [place] [address] Diabetes type 2, no ocular involvement (CMS/HCC) (Primary Dx); Early cataracts, bilateral; Presbyopia; Dry eyes, bilateral Social History Tobacco Use Types Packs/Day Years [...] your housing situation today? I have nora sing 05/06/[address] you li [...] Description 08/05/2024 1:00 PM EDT Office Visit [address] [phone] Kalpana Baptiste MD [address] [place] [phone] 08/12/2024 11:30 AM EDT Clinical Support [address] [address] Amanda Waldrop, NEGAR documented as of this encounter Visit Diagnoses Diagnosis Diabetes type 2, no ocular involvement ([facility])- Primary Early cataracts, bilateral Presbyopia Dry eyes, bilateral documented in this encounter Additional Health Concerns Assessment Noted Time PHQ-9 Depression Total Score: 0 05/06/19 25 2:15 PM EST documented as of this encounter Care Teams Telegraph Mechanic Relationship Specialty Start Date End Date Kalpana Baptiste MD [address] [place] [phone] PCP - General Family Medicine 06/14/20 documented as of this encounter
--- OUTSIDE RECORDS SUMMARY | 2024-07-09 10:39 | XMS_ITS | Encounter Summary ---
Author Organization [employer] Address [address] [facility] [address] [facility] [address] 7[address] [place] [address] Care Team Providers Care Cold Strip Feeder Name Role Phone Kalpana Baptiste MD Primary Care Provide r Encounter Details Date Type Department Care Team (Latest Contact Info) Description 06/22/2024 Travel Social History Tobacco Use Types Packs/Day [...] [facility] MEDICINE [address] [place] [phone] Kalpana Baptiste MD [address] [place] [phone] 08/12/2024 11:30 AM EDT Clinical Support [facility] MEDICINE [address] [place] [phone] Amanda Waldrop, NEGAR documented as of this encounter Visit Diagnoses Not on filedocumented in this encounter Additional Health Concerns Assessment Noted Time PHQ-9 Depression Total Score: 0 05/06/19 25 2:15 PM EST documented as of this encounter Care Teams Cold Strip Feeder Relationship Specialty Start Date End Date Kalpana Baptiste MD [address] [place] [phone] PCP - General Family Medicine 06/14/20 documented as of this encounter
--- OUTSIDE RECORDS SUMMARY | 2024-07-09 10:39 | XMS_ITS | Encounter Summary ---
Author Organization [employer] Address [address] [facility] [address] [address] [place] [address] Care Team Providers Care Laborer Tree Tapping Name Role Phone Kalpana Baptiste MD Primary Care Provide r Reason for Visit * Reason Comments Med Refill Encounter Details Date Type Department Care Team ([facility] st Contact Info) Description 04/16/2023 Refill [facility] MEDICINE [address] [place], [place] [phone] Kalpana Baptiste MD [address] [place] [address] Chronic tension-type headache, not intractable Social History [...] Description 08/05/2024 1:00 PM EDT Office Visit [facility] MEDICINE [address] [place] [phone] Kalpana Baptiste MD [address] [place] [phone] 08/12/2024 11:30 AM EDT Clinical Support [address] [address] Amanda Waldrop RN documented as of this encounter Visit Diagnoses Diagnosis Chronic tension-type headache, not intractable Chronic tension type headache documented in this encounter Additional Health Concerns Assessment Noted Time PHQ-9 Depression Total Score: 0 08/22/19 23 10:06 AM EDT documented as of this encounter Care Teams Laborer Tree Tapping Relationship Specialty Start Date End Date Kalpana Baptiste MD [address] [place] [phone] PCP - General Family Medicine 06/14/20 documented as of this encounter
--- OUTSIDE RECORDS SUMMARY | 2024-07-09 10:39 | XMS_ITS | Encounter Summary ---
Author Organization [employer] Address [address] [facility] [address] 7[address] [place] [address] Care Team Providers Care Mill Crane Operator Name Role Phone Kalpana Baptiste MD Primary Care Provide r Reason for Visit * Reason Comments Med Refill Encounter Details Date Type Department Care Team ([facility] st Contact Info) Description 05/14/2023 Refill [facility] MEDICINE [address] [place], [place] [phone] Marilyn Corral MD [address] [place], [place] [phone] Type 2 diabetes mellitus with other specified complication, unspecified whether termite treater helper insulin use ([facility]) Social History Tobacco Use Types [...] 1:00 PM EDT Office Visit [facility] MEDICINE [address] [place] [phone] Kalpana Baptiste MD [address] [place] [address] 08/12/2024 11:30 AM EDT Clinical Support [address] [address] Amanda Waldrop RN documented as of this encounter Visit Diagnoses Diagnosis Type 2 diabetes mellitus with other specified complication, unspecified whether halfway insulin use ([facility]) documented in this encounter Additional Health Concerns Assessment Noted Time PHQ-9 Depression Total Score: 0 08/22/19 23 10:06 AM EDT documented as of this encounter Care Teams Mill Crane Operator Relationship Specialty Start Date End Date Kalpana Baptiste MD [address] [place] [phone] PCP - General Family Medicine 06/14/20 documented as of this encounter
--- OUTSIDE RECORDS SUMMARY | 2024-07-09 10:39 | XMS_ITS | Encounter Summary ---
Author Organization [employer] Address [address] [address] [address] [place] [address] Care Team Providers Care Golf Club Head Former Name Role Phone Kalpana Baptiste MD Primary Care Provide r Reason for Visit * Reason Comments Med Refill Encounter Details Date Type Department Care Team ([facility] st Contact Info) Description 04/21/2023 Refill [facility] MEDICINE [address] [place], [place] [phone] Kalpana Baptiste MD [address] [place] [address] Primary osteoarthritis of both knees Social History [...] Office Visit [facility] MEDICINE [address] [place] [phone] Kalpana Baptiste MD [address] [place] [phone] 08/12/2024 11:30 AM EDT Clinical Support [facility] MEDICINE [address] [place] [phone] Amanda Waldrop, NEGAR documented as of this encounter Visit Diagnoses Diagnosis Primary osteoarthritis of both knees documented in this encounter Additional Health Concerns Assessment Noted Time PHQ-9 Depression Total Score: 0 08/22/19 23 10:06 AM EDT documented as of this encounter Care Teams Golf Club Head Former Relationship Specialty Start Date End Date Kalpana Baptiste MD [address] [place] [phone] PCP - General Family Medicine 06/14/20 documented as of this encounter
--- OUTSIDE RECORDS SUMMARY | 2024-07-09 10:39 | XMS_ITS | Clinical Summary ---
Author Organization [facility] Address [address] [place] [address] Phone Care Team Providers Care Residential Sales Rep Name Role Phone Kalpana Baptiste MD Primary Care Provide r Allergies Active Allergy Reactions Criticality Noted Date Comments Aspirin Rash 03/03/2019 Penicillins Rash 03/03/2019 Vancomycin 03/05/2024 Medications metFORMIN (GLUCOPHAGE) 500 mg tabletIndicati ons:type 2 diabetes mellitus Take 1 tablet (500 [...] 1 (one) time each day. 30 each 5 Active oxyCODONE (ROXICODONE) 5 mg immediate release tablet Take 1 tablet (5 mg total) by mouth 3 (three) times a day if needed for severe pain. Max Daily Amount: 15 mg 6 tablet 5 Active fluticasone propionate (FLONASE) 50 mcg/actuation nasal spray Administer 2 sprays into each nostril 1 (one) time each day. Shake gently. Before first use, prime pump. After use, clean tip and replace cap. 16 g 11 5 Active Active Problems Problem Noted Date Diagnosed Date JUSTINO (acute kidney injury) 05/18/2024 Encounters Date Type Department Care Team Description 06/15/2024 2:45 PM EST Office Visit Orthopedic Surgery [facility] [address] [facility] [address] [place] [phone] Lee Delaney, DPM Metatarsalgia of both feet (Primary Dx); Pain in right wrist; Dermatophytosis of nail; Pain in toe of right foot; Pain in toe of left foot; Diabetic mononeuropathy simplex (CMS/HCC) 05/17/2024 11:26 PM EST - 05/20/2024 3:44 PM EST Hospital Encounter [facility] [address] [place] [phone] Millay, Scot MD Zachary Martin Nermina, MD Mohani, Priya, MD Generalized abdominal pain (Primary Dx); Acute kidney injury (CMS/HCC) Discharge Disposition: Home or Self Care from Last 3 Months Surgical History Surgery [...] on file Sexual Orientation Not on file Obstetrics History Last Filed [...] Mass Index 37.27 06/15/2024 1:35 PM EST Plan of Treatment Upcoming Encounters Date Type Department Care Team (Late st Contact Info) Description 09/14/2024 11:00 AM EDT Office Visit Orthopedic Surgery - [place] [address] [phone] Lee Delaney, DPM [address] [address] Health Maintenance Due Date Last Done Comments Breast Cancer Screening 1963 Diabetes: Annual Foot Exam 1973 Diabetes: Annual Retina Eye Exam 1973 Cervical Cancer Screening: Pap Smear 1984 Hepatitis A Vaccines (2 of 2 - Risk 2-dose series) 04/15/2019 10/14/2018 Pneumococcal Vaccine: 50+ Years (4 of 4 - PCV20 or PCV21) 03/24/2021 03/24/2016, 03/24/2016, 08/10/2014, Additional history exists Pneumococcal Vaccine: Pediatrics (0 to 5 Years) and At-Risk Patients (6 to 64 Years) (4 of 4 - PCV20 or PCV21) 03/24/2021 03/24/2016, 03/24/2016, 08/10/2014, Additional history exists Colorectal Cancer Screening: Colonoscopy 04/14/2022 Hepatitis C [...] 05/20/2025 05/20/2024, 05/19/2024, 05/18/2024, Additional history exists Cholesterol Screening (Lipid Panel) [...] on patient's age to complete this topic Meningococcal B Vacine Aged Out No lo nger eligible based on patient's [...] of9 resultswithin the time period is included. [facility] Glucose POCT 129(H) 70 - 100 mg/dL 05/20/2024 12:09 PM EST [facility] Blood Capillary blood specimen / Unknown 05/20/2024 12:08 PM EST 05/20/2024 12:10 PM EST us Randee Slater MD LAB POINT OF CARE TE ST DOCKED DEVICE UNSOLICITED RESULTS Final Result [facility] [address] [place] [address], [place] [phone] * (ABNORMAL) Basic metabolic panel (05/20/2024 6:02 AM EST) Only the most recent of2 resultswithin the time period is included. [facility] Sodium 138 133 - 145 mmol/L LAB CHEMISTRY METHOD 05/20/2024 9:07 AM EST [facility] Potassium 4.0 3.5 - 5.5 mmol/L LAB CHEMISTRY METHOD 05/20/2024 9:07 AM EST [facility] Chloride 111(H) 96 - 110 mmol/L [...] 6:38 AM EST Clarice MORROW LAB BLOOD ORDERABLES Gabi acuna Result [facility] [address] [place] [address], * (ABNORMAL) Gastrointestinal pathogens molecular study (05/20/2024 1:56 AM EST) [facility] Campylobacter Detection by PCR Not Detected Not [...] LAB MICROBIOLOGY METHOD 5 8:58 AM EST [facility] Giardia lamblia Detection by PCR Not [...] 5 8:58 AM [facility] Comment:ALTERNATE METHOD REC OMMENDED IF RESULTS DO NOT CORRELATE WITH CLINICAL PRESENTATION Sapovirus Detection by PCR Not Detected Not Detected LAB MICROBIOLOGY METHOD 5 8:58 AM [facility] Rotavirus A Detection by PCR Not Detected Not Detected LAB MICROBIOLOGY METHOD 5 8:58 AM [facility] Stool Rectum structure / Unknown Non-blood Collection / Unknown 05/20/2024 1:56 AM EST 05/20/2024 2:06 AM EST [facility] - 05/20/2024 8:58 AM EST PCR [...] MULTIPLEXED PCR Clarice MORROW LAB MICROBIOLOGY - GENERA L ORDERABLES Edited Result - Final [facility] [address] [place] [address], * Lactate (05/19/2024 8:15 AM EST) Only the most recent of2 resultswithin the time period is included. Pathologist [facility] Lactate 0.8 0.4 - 2.0 mmol/L LAB CHEMISTRY METHOD 05/19/2024 9:00 AM [facility] Blood Venous blood specimen / Unknown Venipuncture / Unknown 05/19/2024 8:15 AM EST 05/19/2024 8:32 AM EST Clarice MORROW LAB BLOOD ORDERABLES Gabi l Result [facility] [address] [place] [address], * (ABNORMAL) Complete blood count (05/19/2024 5:51 AM EST) [facility] WBC 4.5(L) 4.8 - 10.8 K/mcL LAB [...] LAB HEMETOLOGY METHOD 05/19/2024 7:30 AM EST [facility] RDW 13.6 11.0 - 15.0 % LAB HEMETOLOGY METHOD 05/19/2024 7:30 AM EST [facility] Platelets 164 130 - 400 K/mcL LAB HEMETOLOGY METHOD 05/19/2024 7:30 AM EST [facility] MPV 10.1 7.0 - 11.0 FL LAB HEMETOLOGY METHOD 05/19/2024 7:30 AM EST [facility] NRBC 0.4 <1.0 % LAB HEMETOLOGY METHOD 05/19/2024 7:30 AM EST [facility] NRBC Absolute 0.02 <0.10 K/mcL LAB HEMETOLOGY METHOD 05/19/2024 7:30 AM EST [facility] Blood Venous blood specimen / Unknown Venipuncture / Unknown 05/19/2024 5:51 AM EST 05/19/2024 6:50 AM EST us Beronica MORROW LAB BLOOD ORDERABLES Final Resul t [facility] [address] [place] [address], [place] [phone] * Magnesium (05/19/2024 5:51 AM EST) Only the most recent of2 resultswithin the time period is included. Magnesium 2.1 1.9 - 2.6 mg/dL LAB CHEMISTRY METHOD 05/19/2024 7:53 AM EST [facility] Blood Venous blood specimen / Unknown Venipuncture / Unknown 05/19/2024 5:51 AM EST 05/19/2024 6:51 AM EST us Beronica MORROW LAB BLOOD ORDERABLES Final Resul t [facility] [address] [place] [address], [place] [phone] * Sodium, urine, random (05/18/2024 4:28 PM EST) Sodium, Ur 96 mmol/L LAB CHEMISTRY METHOD 05/18/2024 5:18 PM EST [facility] Urine Urine specimen from urethra / Unknown Non-blood Collection / Unknown 05/18/2024 4:28 PM EST 05/18/2024 4:51 PM EST us Beronica MORROW LAB URINE ORDERABLES Final Resul t Performing Organization Address City/[facility]/ZIP Co de Phone Number [facility] [address] [place] [address], [place] [phone] * Protein, urine, random (05/18/2024 4:28 PM EST) Protein, Urine 42 mg/dL LAB CHEMISTRY METHOD 05/18/2024 5:14 PM EST [facility] Urine Urine specimen obtained by clean catch procedure / Unknown Non-blood Collection / Unknown 05/18/2024 4:28 PM EST 05/18/2024 4:51 PM EST us Beronica MORROW LAB URINE ORDERABLES Final Resul t [facility] [address] [place] [address], [place] [phone] * Creatinine, urine, random (05/18/2024 4:28 PM EST) Creatinine, Urine 97.0 mg/dL LAB CHEMISTRY METHOD 05/18/2024 5:18 PM EST [facility] Urine Urine specimen from urethra / Unknown Non-blood Collection / Unknown 05/18/2024 4:28 PM EST 05/18/2024 4:51 PM EST us Beronica MORROW LAB URINE ORDERABLES Final Resul t [facility] [address] [place] [address], [place] [phone] * Respiratory virus panel molecular study (05/18/2024 12:20 PM EST) Adenovirus Detection by PCR Not Detected Not Detected LAB MICROBIOLOGY METHOD 05/18/2024 1:49 PM EST [facility] Influenza A PCR Not Detected Not Detected LAB MICROBIOLOGY METHOD 05/18/2024 1:49 PM EST [facility] Influenza B PCR Not Detected Not Detected LAB MICROBIOLOGY METHOD 05/18/2024 1:49 PM EST [facility] Coronavirus 229E Not Detected Not Detected LAB MICROBIOLOGY METHOD 05/18/2024 1:49 PM EST [facility] Coronavirus HKU1 Not Detected Not Detected LAB MICROBIOLOGY METHOD 05/18/2024 1:49 PM EST [facility] Coronavirus OC43 Not Detected Not Detected LAB MICROBIOLOGY METHOD 05/18/2024 1:49 PM EST [facility] Coronavirus NL63 Not Detected Not Detected LAB MICROBIOLOGY METHOD 05/18/2024 1:49 PM [facility] Parainfluenza Virus 1 Not Detected Not Detected LAB MICROBIOLOGY METHOD 05/18/2024 1:49 PM EST [facility] Parainfluenza Virus 2 Not Detected Not Detected LAB MICROBIOLOGY METHOD 05/18/2024 1:49 PM EST [facility] Parainfluenza Virus 3 Not Detected Not Detected LAB MICROBIOLOGY METHOD 05/18/2024 1:49 PM EST [facility] Parainfluenza Virus 4 Not Detected Not Detected LAB MICROBIOLOGY METHOD 05/18/2024 1:49 PM [facility] RSV PCR Not Detected Not Detected LAB MICROBIOLOGY METHOD 05/18/2024 1:49 PM EST [facility] Human Metapneumovirus A and B Not Detected Not Detected LAB MICROBIOLOGY METHOD 05/18/2024 1:49 PM EST [facility] Rhinovirus/Entero virus Not Detected Not Detected LAB MICROBIOLOGY METHOD 05/18/2024 1:49 PM EST [facility] Bordetella pertussis Not Detected Not Detected LAB MICROBIOLOGY METHOD 05/18/2024 1:49 PM EST [facility] Bordetella parapertussis Not Detected Not Detected LAB MICROBIOLOGY METHOD 05/18/2024 1:49 PM EST [facility] Mycoplasma pneumo by PCR Not Detected Not Detected LAB MICROBIOLOGY METHOD 05/18/2024 1:49 PM EST [facility] Chlamydia pneumoniae Not Detected Not Detected LAB MICROBIOLOGY METHOD 05/18/2024 1:49 PM EST [facility] SARS COV-2 Not Detected Not Detected LAB MICROBIOLOGY METHOD 05/18/2024 1:49 PM [facility] Swab Both anterior nares / Unknown Non-blood Collection / Unknown 05/18/2024 12:20 PM EST 05/18/2024 12:53 PM EST [facility] - 05/18/2024 1:49 PM EST Testing was performed using the [employer] Respiratory Pathogen PCR Assay. All results must [...] that are below the limit of detection. us Beronica MORROW LAB MICROBIOLOGY - GENERAL ORDER BRUNO Final Result [facility] [address] [place] [address], * [place] urine culture tube (05/18/2024 3:32 AM EST) Pathologist [facility] Extra Tube Hold for add-ons. 05/18/2024 9:[address] [facility] Comment:Auto resulted. Urine Urine specimen obtained by clean catch procedure / Unknown Non-blood Collection / Unknown 05/18/2024 3:32 AM EST 05/18/2024 7:37 AM EST us Clyde Retana MD LAB URINE ORDERABLES Final Resu lt [facility] [address] [place] [address], [place] [phone] * CT Abdomen Pelvis wo Contrast (05/18/2024 [...] 03:16:27 Clyde Retana MD IMG CT PROCEDURES Final Result * (ABNORMAL) Urinalysis with reflex microscopic and culture (05/18/2024 12:46 AM EST) Specific [place] Urine 1.017 1.003 - 1.030 LAB URINALYSIS [...] EST Clyde Retana MD LAB URINE ORDERABLES Final Resu lt [facility] [address] [place] [address], [place] [phone] * [place] top urine tube (05/18/2024 12:46 AM EST) Extra Tube Hold for add-ons. 05/18/2024 3:04 AM [facility] Comment:Auto resulted. Urine Urine specimen obtained by clean catch procedure / Unknown Non-blood Collection / Unknown 05/18/2024 12:46 AM EST 05/18/2024 1:06 AM EST us Clyde Retana MD LAB URINE ORDERABLES Final Resu lt Performing Organization Address City/[facility]/ZIP Co de Phone Number [facility] [address] [place] [address], [place] [phone] * Urine culture (05/18/2024 12:46 AM EST) Pathologist [facility] Culture, Urine No growth 05/19/2024 10:27 AM [facility] Urine Urine specimen obtained by clean catch procedure / Unknown Non-blood Collection / Unknown 05/18/2024 12:46 AM EST 05/18/2024 1:05 AM EST us Clyde Retana MD LAB MICROBIOLOGY - GENERAL ORDE RABLES Final Result Performing Organization Address [facility]/ZIP Co de Phone Number [facility] [address] [place] [address], [place] [phone] * (ABNORMAL) Manual differential (05/18/2024 12:37 AM EST) Neutrophils % 74.0 % LAB HEMETOLOGY METHOD 5 1:39 AM [facility] Bands % 13.0 % [...] 5 1:39 AM [facility] Bands Absolute Manual 0.74(H) 0.00 - 0.00 K/mcL LAB HEMETOLOGY METHOD 5 1:39 AM [facility] Lymphocytes Absolute 0.57(L) 1.00 - 5.00 K/mcL LAB HEMETOLOGY METHOD 5 1:39 AM [facility] Monocytes Absolute Manual 0.11(L) 0.20 - 1.00 K/mcL LAB HEMETOLOGY METHOD 5 1:39 AM [facility] Eosinophils Absolute Manual 0.00 0.00 - 0.50 K/mcL LAB HEMETOLOGY METHOD 5 1:39 AM [facility] Basophils Absolute Manual 0.00 0.00 - 0.20 K/mcL LAB HEMETOLOGY METHOD 5 1:39 AM [facility] Metamyelocytes Absolute Manual 0.06(H) 0.00 - 0.00 K/mcL LAB HEMETOLOGY METHOD 5 1:39 AM [facility] Rbc Morphology Consistent with indices Consistent with indices, Normal for LAB HEMETOLOGY METHOD 5 1:39 AM [facility] Platelet Morphology - WAM Normal Normal LAB HEMETOLOGY METHOD 5 1:39 AM [facility] Blood Venous blood specimen / Unknown Venipuncture / Unknown 05/18/2024 12:37 AM EST 05/18/2024 1:04 AM EST us Scot Mario Retana MD LAB BLOOD ORDERABLES Final Resu lt [facility] [address] [place] [address], * (ABNORMAL) CBC auto differential (05/18/2024 12:37 AM EST) WBC 5.7 4.8 - 10.8 K/mcL LAB HEMETOLOGY METHOD 05/18/2024 1:39 AM [facility] RBC 3.80 3.80 - 4.80 M/mcL LAB HEMETOLOGY METHOD 05/18/2024 1:39 AM [facility] Hemoglobin 11.1(L) 11.5 - 16.0 g/dL LAB HEMETOLOGY METHOD 05/18/2024 1:39 AM [facility] Hematocrit 33.2(L) 35.0 - 47.0 % LAB HEMETOLOGY METHOD 05/18/2024 1:39 AM [facility] MCV 87.6 79.0 - 98.0 FL LAB HEMETOLOGY METHOD 05/18/2024 1:39 AM [facility] MCH 29.3 27.0 - 32.0 pcg LAB HEMETOLOGY METHOD 05/18/2024 1:39 AM [facility] MCHC 33.4 32.0 - 37.0 g/dL LAB HEMETOLOGY METHOD 05/18/2024 1:39 AM [facility] RDW 13.3 11.0 - 15.0 % LAB HEMETOLOGY METHOD 05/18/2024 1:39 AM [facility] Platelets 256 130 - 400 K/mcL LAB HEMETOLOGY METHOD 05/18/2024 1:39 AM [facility] MPV 9.9 7.0 - 11.0 FL LAB HEMETOLOGY METHOD 05/18/2024 1:39 AM [facility] NRBC 0.0 <1.0 % LAB HEMETOLOGY METHOD 05/18/2024 1:39 AM EST [facility] NRBC Absolute 0.00 <0.10 K/mcL LAB HEMETOLOGY METHOD 05/18/2024 1:39 AM EST [facility] Blood Venous blood specimen / Unknown Venipuncture / Unknown 05/18/2024 12:37 AM EST 05/18/2024 1:04 AM EST us Clyde Retana MD LAB BLOOD ORDERABLES Final Resu lt Performing Organization Address City/[facility]/ZIP Co de Phone Number [facility] [address] [place] [address], [place] [phone] * Lipase (05/18/2024 12:37 AM EST) Lipase 48 13 - 75 unit/L LAB CHEMISTRY METHOD 05/18/2024 1:36 AM EST [facility] Blood Venous blood specimen / Unknown Venipuncture / Unknown 05/18/2024 12:37 AM EST 05/18/2024 1:04 AM EST us Clyde Retana MD LAB BLOOD ORDERABLES Final Resu lt Performing Organization Address [facility]/ZIP Co de Phone Number [facility] [address] [place] [address], [place] [phone] * (ABNORMAL) Comprehensive metabolic panel (05/18/2024 12:37 AM EST) Sodium 140 133 - 145 mmol/L LAB CHEMISTRY METHOD 05/18/2024 1:36 AM EST [facility] Potassium 4.3 3.5 - 5.5 mmol/L LAB CHEMISTRY METHOD 05/18/2024 1:36 AM EST [facility] Chloride 109 96 - 110 mmol/L LAB CHEMISTRY METHOD 05/18/2024 1:36 AM EST [facility] CO2 20(L) 21 - 32 mmol/L [...] LAB CHEMISTRY METHOD 05/18/2024 1:36 AM EST [facility] Total Bilirubin 0.5 0.0 - 1.4 mg/dL LAB CHEMISTRY METHOD 05/18/2024 1:36 AM EST [facility] Blood Venous blood specimen / Unknown Venipuncture / Unknown 05/18/2024 12:37 AM EST 05/18/2024 1:04 AM EST us Scot Mario Retana MD LAB BLOOD ORDERABLES Final Resu lt [facility] [address] [place] [address], * ECG-Annotated (05/18/2024) us Provider Onbase ECG ORDERABLES Final Result from Last 3 Months Additional Health Concerns Infection Onset Date Last Indicated Norovirus 05/20/2024 05/20/2024 Insurance MEDICAID - [place] Advance Directives Documents on File Type Date Recorded Patient Swim Coach Expl anation Advance Directives and Living Will 05/21/2024 8:51 AM Advance Directives and Living Will 05/19/2024 11:42 AM Veronique Burrell [facility] Care Pro xy * Full Code - [...] Healthcare Agent Relationshi p Communication Veronique Dominique [facility] Health Care Agent Salome Koroma [facility] Health Care Agent Care Teams Residential Sales Rep Relationship Specialty Start Date End Date Kalpana Baptiste MD [address] [place] [phone] PCP - General Internal Medicine 05/18/24
--- OUTSIDE RECORDS SUMMARY | 2024-07-09 10:39 | XMS_ITS | Encounter Summary ---
Author Organization [employer] Address [address] [facility] 7t [place] [address] Care Team Providers Care Director Of Rehabilitation Name Role Phone Kalpana Baptiste MD Primary Care Provide r Reason for Referral * Consultation (Routine) - Closed Specialty Diagnoses / Procedures Referred By Contac t Referred To Contact Gastroenterology Diagnoses Hepatic steatosis Kalpana Baptiste MD [address] [place] [address] Phone: tel: fax: [facility] [address] [place] [address] 2nd Floor [place], [place] Phone: tel: fax: Referral ID Status Reason Start Date Expiration Date V isits Requested Visits Authorized [id number] Closed Specialty Services Required 06/11/2024 06/10/2025 6 6 Encounter Details Date Type Department Care Team (Late st Contact Info) Description 06/10/2024 Orders Only [facility] [address] [place], [place] [phone] Kalpana Baptiste MD [address] [place] [address] Hepatic steatosis (Primary Dx) Social History Tobacco Use Types [...] 08/05/2024 1:00 PM EDT Office Visit [facility] [address] [place] [phone] Kalpana Baptiste MD [address] [place] [phone] 08/12/2024 11:30 AM EDT Clinical Support [facility] [address] [place] [phone] Amanda Waldrop RN Scheduled Referrals Name Type Priority Associated Diagnoses Order Schedule Referral to Gastroenterology Outpatient Referral Routine Hepatic steatosis Expected: 06/10/2024 (Approximate), Expires: 06/10/2025 documented as of this encounter Visit Diagnoses Diagnosis Hepatic steatosis- Primary Other chronic nonalcoholic liver disease documented in this encounter Additional Health Concerns Assessment Noted Time PHQ-9 Depression Total Score: 0 05/06/19 25 2:15 PM EST documented as of this encounter Care Teams Director Of Rehabilitation Relationship Specialty Start Date End Date Kalpana Baptiste MD [address] [place] [address] PCP - General Family Medicine 06/14/20 documented as of this encounter
--- OUTSIDE RECORDS SUMMARY | 2024-07-09 10:39 | XMS_ITS | Encounter Summary ---
Author Organization [employer] Address [address] [facility] 7t [place] [address] Care Team Providers Care Supervisor Instrument Maintenance Name Role Phone Kalpana Baptiste MD Primary Care Provide r Reason for Visit * Reason Onset Date Comments Med Refill Results 06/08/2024 Encounter Details Date Type Department Care Team ([facility] st Contact Info) Description 06/08/2024 Refill [facility] [address] [place], [place] [phone] Kalpana Baptiste MD [address] [place] [address] Primary osteoarthritis of both knees Social History [...] encounter Miscellaneous Notes * Telephone Encounter - Leslie Hernandez RN - 06/11/2024 9:35 AM EST T/C placed to pt re below imaging results and POC. Informed US showed a fatty liver. Super common, typically caused by a diet high in fat and cholesterol. Advised to increased fruits, vegetables, andwhole grains. Decrease fried, fatty, processed foods. Informed GI referral placed to further evaluate her liver. Advised she notify us if she doesn't hear from their office with an appt within 2 weeks. Pt verbalized understanding and denied having any further questions or concerns at this time. * Telephone Encounter - Leslie Hernandez RN - 06/11/2024 9:30 AM EST ----- Message from Kalpana Steele MD sent at 06/10/2024 4:54 PM EST ----- Please let patient know I reviewed her US result she has liver steatosis, please advise low fat/healthy diet, I referred her to GI thank you documented in this encounter Plan of Treatment Upcoming Encounters Date Type Department Care Team (Late st Contact Info) Description 08/05/2024 1:00 PM EDT Office Visit [facility] [address] [place] [phone] Kalpana Baptiste MD [address] [place] [address] 08/12/2024 11:30 AM EDT Clinical Support [facility] [address] [place] [phone] Amanda Waldrop, NEGAR documented as of this encounter Visit Diagnoses Diagnosis Primary osteoarthritis of both knees documented in this encounter Additional Health Concerns Assessment Noted Time PHQ-9 Depression Total Score: 0 05/06/19 25 2:15 PM EST documented as of this encounter Care Teams Supervisor Instrument Maintenance Relationship Specialty Start Date End Date Kalpana Baptiste MD [address] [place] [phone] PCP - General Family Medicine 06/14/20 documented as of this encounter
--- OUTSIDE RECORDS SUMMARY | 2024-07-09 10:39 | XMS_ITS | Encounter Summary ---
Author Organization [employer] Address [address] [facility] 7t [place] [address] Care Team Providers Care Molding Machine Tender Name Role Phone Kalpana Baptiste MD Primary Care Provide r Encounter Details Date Type Department Care Team (Latest Contact Info) Description 06/07/2020 Abstract [facility] Dental, Provider, DDS Social History Tobacco [...] Upcoming Encounters Date Type Department Care Team ( st Contact Info) Description 08/05/2024 1:00 PM EDT Office Visit [facility] [address] [place] [phone] Kalpana Baptiste MD [address] [place] [phone] 08/12/2024 11:30 AM EDT Clinical Support [facility] [address] [place] [address] [phone] Amanda Waldrop RN documented as of this encounter Visit Diagnoses Not on filedocumented in this encounter Care Teams Molding Machine Tender Relationship Specialty Start Date End Date Kalpana Baptiste MD [address] [place] [address] [phone] PCP - General Family Medicine 06/14/20 documented as of this encounter
--- OUTSIDE RECORDS SUMMARY | 2024-07-09 10:39 | XMS_ITS | Encounter Summary ---
Author Organization [employer] Address [address] [facility] [address] [place] [address] Care Team Providers Care Service Department Manager Name Role Phone Kalpana Baptiste MD Primary Care Provide r Reason for Visit * Reason Comments Med Refill Encounter Details Date Type Department Care Team ([facility] st Contact Info) Description 04/08/2023 Refill [facility] [address] [place], [place] [phone] Kalpana Baptiste MD [address] [place] [address] Chronic tension-type headache, not intractable Social History [...] Description 08/05/2024 1:00 PM EDT Office Visit [facility] [address] [place] [phone] Kalpana Baptiste MD [address] [place] [phone] 08/12/2024 11:30 AM EDT Clinical Support [address] [phone] Amanda Waldrop RN documented as of this encounter Visit Diagnoses Diagnosis Chronic tension-type headache, not intractable Chronic tension type headache documented in this encounter Additional Health Concerns Assessment Noted Time PHQ-9 Depression Total Score: 0 08/22/19 23 10:06 AM EDT documented as of this encounter Care Teams Service Department Manager Relationship Specialty Start Date End Date Kalpana Baptiste MD [address] [place] [phone] PCP - General Family Medicine 06/14/20 documented as of this encounter
--- OUTSIDE RECORDS SUMMARY | 2024-07-09 10:39 | XMS_ITS | Encounter Summary ---
Author Organization [employer] Address [address] [facility] [address] 7[address] [place] [address] Care Team Providers Care Software Systems Architect Name Role Phone Kalpana Baptiste MD Primary Care Provide r Encounter Details Date Type Department Care Team ([facility] Contact Info) Description 05/17/2022 Orders Only [facility] [address] [place] [address] [phone] Marilyn Corral MD [address] [place], [place] [phone] Acute idiopathic gout involving toe of right [...] Description 08/05/2024 1:00 PM EDT Office Visit [facility] [address] [place] [address] [phone] Kalpana Baptiste MD [address] [place] [address] 08/12/2024 11:30 AM EDT Clinical Support [facility] [address] [place], [place] [phone] Amanda Waldrop RN documented as of this encounter Visit Diagnoses Diagnosis 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
--- OUTSIDE RECORDS SUMMARY | 2024-07-09 10:39 | XMS_ITS | Encounter Summary ---
Author Organization [employer] Address [address] [facility] [address] 7[address] [place] [address] Care Team Providers Care Can Doffer Name Role Phone Kalpana Baptiste MD Primary Care Provide r Reason for Visit * Reason Comments Med Refill Encounter Details Date Type Department Care Team ([facility] st Contact Info) Description 06/22/[address] [facility] [address] [place], [place] [phone] Kalpana Baptiste MD 230 [place] [address] Heartburn Social History Tobacco Use Types Packs/Day [...] 08/05/2024 1:00 PM EDT Office Visit [facility] [address] [place] [phone] Kalpana Baptiste MD [address] [place] [phone] 08/12/2024 11:30 AM EDT Clinical Support [address] [address] Amanda Waldrop, NEGAR documented as of this encounter Visit Diagnoses Diagnosis Heartburn documented in this encounter Additional Health Concerns Assessment Noted Time PHQ-9 Depression Total Score: 0 05/06/19 25 2:15 PM EST documented as of this encounter Care Teams Can Doffer Relationship Specialty Start Date End Date Kalpana Baptiste MD [address] [place] [phone] PCP - General Family Medicine 06/14/20 documented as of this encounter
--- OUTSIDE RECORDS SUMMARY | 2024-07-09 10:39 | XMS_ITS | Encounter Summary ---
Author Organization [employer] Address [address] [facility] [address] 7[address] [place] [address] Care Team Providers Care Hosiery Looper Name Role Phone Kalpana Baptiste MD Primary Care Provide r Reason for Visit * Reason Onset Date Comments Med Refill 07/02/2024 Encounter Details Date Type Department Care Team ([facility] st Contact Info) Description 07/02/[address] [facility] MEDICINE [address] [place], [place] [phone] Kalpana Baptiste MD 230 [place] [address] Social History Tobacco Use Types Packs/Day Years [...] encounter Miscellaneous Notes * Telephone Encounter - Justa Smith - 07/02/2024 2:04 PM EST TC from pt requesting medication refill. Medications needing refill : cholecalciferol (Vitamin D-3) 25 MCG (1000 UT) capsule To be sent to: [employer] - [address] documented in this encounter Plan of Treatment Upcoming Encounters Date Type Department Care Team (Late st Contact Info) Description 08/05/2024 1:00 PM EDT Office Visit [facility] MEDICINE [address] [place] [phone] Kalpana Baptiste MD [address] [place] [phone] 08/12/2024 11:30 AM EDT Clinical Support [facility] [address] [place] [phone] Amanda Waldrop RN documented as of this encounter Visit Diagnoses Not on filedocumented in this encounter Additional Health Concerns Assessment Noted Time PHQ-9 Depression Total Score: 0 05/06/19 25 2:15 PM EST documented as of this encounter Care Teams Hosiery Looper Relationship Specialty Start Date End Date Kalpana Baptiste MD [address] [place] [phone] PCP - General Family Medicine 06/14/20 documented as of this encounter
--- OUTSIDE RECORDS SUMMARY | 2024-07-09 10:39 | XMS_ITS | Encounter Summary ---
Author Organization [employer] Address [address] [facility] 7t [place] [address] Care Team Providers Care Partition Setter Name Role Phone Kalpana Baptiste MD Primary Care Provide r Reason for Visit * Reason Comments Med Refill Encounter Details Date Type Department Care Team ([facility] Contact Info) Description 06/01/2022 Refill [facility] [address] [place], [place] [phone] Neida Garrett DO [address] [place] [address] Social History Tobacco Use Types Packs/Day Years [...] Upcoming Encounters Date Type Department Care Team ([facility] Contact Info) Description 08/05/2024 1:00 PM EDT Office Visit [facility] MED[facility]INE [address] [place], [place] [phone] Kalpana Baptiste MD [address] [place] [phone] 08/12/2024 11:30 AM EDT Clinical Support [facility] [address] [place] [address] [phone] Amanda Waldrop RN documented as of this encounter Visit Diagnoses Not on filedocumented in this encounter Care Teams Partition Setter Relationship Specialty Start Date End Date Kalpana Baptiste MD [address] [place] [phone] PCP - General Family Medicine 06/14/20 documented as of this encounter
--- OUTSIDE RECORDS SUMMARY | 2024-07-09 10:39 | XMS_ITS | Encounter Summary ---
Author Organization [employer] Address [address] [facility] [address] [place] [address] Care Team Providers Care Chemistry Account Manager Name Role Phone Kalpana Baptiste MD Primary Care Provide r Reason for Visit * Reason Comments Med Refill Encounter Details Date Type Department Care Team ([facility] st Contact Info) Description 05/15/2023 Refill [facility] [address] [place], [place] [phone] Kalpana Baptiste MD 230 [place] [address] Primary osteoarthritis of both knees; Heartburn Social [...] [facility] [address] [place] [phone] Kalpana Baptiste MD [address] [place] [phone] 08/12/2024 11:30 AM EDT Clinical Support [facility] MED[facility]INE [address] [place] [phone] Amanda Waldrop RN documented as of this encounter Visit Diagnoses Diagnosis Primary osteoarthritis of both knees Heartburn documented in this encounter Additional Health Concerns Assessment Noted Time PHQ-9 Depression Total Score: 0 08/22/19 23 10:06 AM EDT documented as of this encounter Care Teams Chemistry Account Manager Relationship Specialty Start Date End Date Kalpana Baptiste MD [address] [place] [phone] PCP - General Family Medicine 06/14/20 documented as of this encounter
--- OUTSIDE RECORDS SUMMARY | 2024-07-09 10:39 | XMS_ITS | Encounter Summary ---
Author Organization [employer] Address [address] [address] 7[address] [place] [address] Care Team Providers Care Agricultural Engineering Teacher Name Role Phone Kalpana Baptiste MD Primary Care Provide r Reason for Visit * Reason Onset Date Comments Med Refill 06/03/2023 Encounter Details Date Type Department Care Team ([facility] st Contact Info) Description 06/03/2023 Telephone [facility] MED[facility]INE [address] [place], [place] [phone] Kalpana Baptiste MD [address] [place] [address] Med Refill Social History Tobacco Use Types [...] Metformin 500 mg To be sent to: [facility] - [address] documented in this encounter Plan of Treatment Upcoming Encounters Date Type Department Care Team (Late st Contact Info) Description 08/05/2024 1:00 PM EDT Office Visit [facility] MED[facility]INE [address] [place] [phone] Kalpana Baptiste MD [address] [place] [address] 08/12/2024 11:30 AM EDT Clinical Support [facility] [address] [place] [phone] Amanda Waldrop RN documented as of this encounter Visit Diagnoses Not on filedocumented in this encounter Additional Health Concerns Assessment Noted Time PHQ-9 Depression Total Score: 0 08/22/19 23 10:06 AM EDT documented as of this encounter Care Teams Agricultural Engineering Teacher Relationship Specialty Start Date End Date Kalpana Baptiste MD [address] [place] [address] PCP - General Family Medicine 06/14/20 documented as of this encounter
--- OUTSIDE RECORDS SUMMARY | 2024-07-09 10:39 | XMS_ITS | Encounter Summary ---
Author Organization [employer] Address [address] [facility] [address] [place] [address] Care Team Providers Care Insurance Inspector Name Role Phone Kalpana Baptiste MD Primary Care Provide r Reason for Visit * Reason Comments Med Refill Encounter Details Date Type Department Care Team ([facility] st Contact Info) Description 03/11/2023 Refill [facility] [address] [place], [place] [phone] Kalpana Baptiste MD 230 [place] [address] Chronic tension-type headache, not intractable; Primary osteoarthritis [...] Description 08/05/2024 1:00 PM EDT Office Visit [facility] [address] [place] [phone] Kalpana Baptiste MD [address] [place] [phone] 08/12/2024 11:30 AM EDT Clinical Support [address] [address] Amanda Waldrop RN documented as of this encounter Visit Diagnoses Diagnosis Chronic tension-type headache, not intractable Chronic tension type headache Primary osteoarthritis of both knees documented in this encounter Additional Health Concerns Assessment Noted Time PHQ-9 Depression Total Score: 0 08/22/19 23 10:06 AM EDT documented as of this encounter Care Teams Insurance Inspector Relationship Specialty Start Date End Date Kalpana Baptiste MD [address] [place] [phone] PCP - General Family Medicine 06/14/20 documented as of this encounter
--- OUTSIDE RECORDS SUMMARY | 2024-07-09 10:39 | XMS_ITS | Clinical Summary ---
Author Organization [employer] Address [address] [facility] 7t [place] [address] Care Team Providers Care Podiatric Assistant Name Role Phone Kalpana Baptiste MD [...] unspecified whether stage 3a or 3b CKD ([facility]) 1 each by Other route 2 times daily. 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) Use to test blood sugar 2 times daily 1 kit 024 Active SITagliptin (Januvia) 50 MG tabletIndications :Type 2 diabetes mellitus with other specified complication, unspecified whether [place] insulin use ([facility]) TAKE ONE TABLET BY MOUTH EVERY [...] MORNING NEEDED (BULK) 48 g 3 Active pantoprazole (ProtoNix) 40 MG EC tabletIndications [...] BREATH OR WHEEZING (BULK) 18 g 11 Active predniSONE (Deltasone) 20 MG tablet 2 tablets PO x first day then 1 tab po/d x 4d 6 tablet Active Neomycin-Polymyxi n-HC 1 % solutionIndicatio ns:Chronic otitis externa of left ear, unspecified type Administer 3 drops into affected ear(s) 4 times daily. 10 mL Active Alcohol Swabs (Easy Touch Alcohol Prep Medium) 70 % pads USE 1 SWAB ONCE DAILY (BULK) 100 each 11 Active FREESTYLE LITE test strip USE TO TEST BLOOD SUGAR ONCE DAILY AND DIRECTED (BULK) 50 strip Active metFORMIN (Glucophage) 500 MG tabletIndications :Type 2 diabetes mellitus with other specified complication, unspecified whether mixer operator raw salt insulin use (CMS/HCC) TAKE ONE TABLET BY MOUTH TWICE A DAY WITH MEALS 56 tablet 11 Active amLODIPine (Norvasc) 10 MG tabletIndications :Primary hypertension Take 1 tablet (10 mg) by mouth Once per day. 30 tablet 3 01/02/2 025 Active losartan (Cozaar) 25 MG tabletIndications :Primary hypertension Take 1 tablet (25 mg) by mouth Once per day. 30 tablet 11 025 2025 Active hydroCHLOROthiazi de 12.5 MG tabletIndications :Primary hypertension Take 1 tablet (12.5 mg) by mouth Once per day. 30 tablet 11 025 2025 Active sucralfate (Carafate) 1 g tabletIndications :Heartburn TAKE ONE TABLET BY MOUTH THREE TIMES A DAY, BEFORE BREAKFAST, BEFORE LUNCH, AND BEFORE DINNER (VIAL) 90 tablet 2 Active albuterol (2.5 MG/3ML) 0.083% nebulizer solution INHALE THE CONTENTS OF 1 VIAL VIA NEBULIZER THREE TIMES A DAY DIRECTED (BULK) 75 mL 5 025 Active traMADol (Ultram) 50 MG tabletIndications :Primary osteoarthritis of both knees TAKE ONE TABLET BY MOUTH EVERY 6 HOURS IF NEEDED FOR SEVERE PAIN (VIAL) 100 tablet 025 Active naloxone (Narcan) 4 mg/0.1 mL nasal spray ADMINISTER 1 SPRAY INTO AFFECTED NOSTRIL NEEDED FOR OPIOID REVERSAL (BULK) 2 each 2 Active cholecalciferol (Vitamin D-3) 25 MCG (1000 UT) capsule Take 1 capsule (25 mcg) by mouth Once per day. TAKE 1 CAPSULE BY MOUTH ONCE A DAY (VIAL) 30 capsule 11 025 Active tobramycin-dexAME THasone (Tobradex) ophthalmic suspension USE 3 DROPS INTO LEFT EAR TWICE A DAY FOR 2 WEEKS Active cholecalciferol (Vitamin D-3) 25 MCG (1000 UT) capsule TAKE 1 CAPSULE BY MOUTH ONCE A DAY (VIAL) 30 capsule 11 024 2024 Discontinued(R eorder (will not trigger notification to Pharmacy)) albuterol (2.5 MG/3ML) 0.083% nebulizer solution INHALE THE CONTENTS OF 1 VIAL VIA NEBULIZER THREE TIMES A DAY DIRECTED (BULK) 75 mL 5 024 2024 Discontinued sucralfate (Carafate) 1 g tabletIndications :Heartburn TAKE ONE TABLET BY MOUTH THREE TIMES A DAY, BEFORE BREAKFAST, BEFORE LUNCH, AND BEFORE DINNER (VIAL) 90 tablet 2 024 2024 Discontinued naloxone (Narcan) 4 mg/0.1 mL nasal spray ADMINISTER 1 SPRAY INTO AFFECTED NOSTRIL NEEDED FOR OPIOID REVERSAL (BULK) 2 each 2 024 2024 Discontinued traMADol (Ultram) 50 MG tabletIndications :Primary osteoarthritis of both knees Take 1 tablet (50 mg) by mouth every 6 (six) hours if needed for severe pain for up to 25 days. 100 tablet 025 2024 Discontinued Active Problems Problem Noted Date Diagnosed Date [...] renewed, she will be call for her CUSTOMER EXPERIENCE SPECIALIST appointment Steatosis of liver 05/14/2022 CKD stage [...] ordered Acute pharyngitis 12/29/2013 Cough 06/16/2013 Chronic evbvp-bbuyro-dnwi disease 05/19/2013 Headache 03/24/2013 Dysuria 12/30/2012 Abdominal [...] Encounters Date Type Department Care Team Description 07/06/2024 Refill [facility] [address] [place] [address] Kalpana Baptiste MD Primary osteoarthritis of both knees 07/02/2024 Refill [facility] [address] [place] [address] Kalpana Baptiste MD 07/02/2024 Refill [facility] [address] [place] [address] Kalpana Baptiste MD Primary osteoarthritis of both knees 06/22/2024 1:00 PM EST Office Visit [facility] [address] [place] [address] Jonathon, Beata, OD Diabetes type 2, no ocular involvement (CMS/HCC) (Primary Dx); Early cataracts, bilateral; Presbyopia; Dry eyes, bilateral 06/22/2024 Refill [facility] [address] [place] [address] Kalpana Baptiste MD Heartburn 06/22/2024 Travel 06/10/2024 Orders Only [facility] [address] [place] [address] Kalpana Baptiste MD Hepatic steatosis (Primary Dx) 06/08/2024 Refill [facility] [address] [place] [address] Kalpana Baptiste MD Primary osteoarthritis of both knees 05/25/2024 Patient Outreach [facility] [address] [place] [address] Kalpana Baptiste MD Transition Of Care (Tcm) (HDF unscheduled. LVM #2) 05/21/2024 Patient Outreach [facility] [address] [place] [address] Kalpana Baptiste MD Transition Of Care (Tcm) (HDF unscheduled. ) 05/13/2024 9:00 AM EST Clinical Support [facility] [address] [place] [phone] Amanda Waldrop RN Chronic gouty arthritis (Primary Dx) 05/13/2024 Refill [facility] [address] [place] [address] Kalpana Baptiste MD Heartburn 05/13/2024 Telephone [facility] [address] [place] [phone] Amanda Waldrop RN BPI Scoring 05/13/2024 Travel 05/13/2024 Telephone [facility] [address] [place] [phone] Amanda Waldrop, RN Recommend CUSTOMER EXPERIENCE SPECIALIST Tier 2 05/07/2024 Telephone [facility] [address] [place] [phone] Amanda Wadlrop, RN Reschedule CUSTOMER EXPERIENCE SPECIALIST RV appt she cancelled 03/22/24 05/06/2024 2:30 PM EST Office Visit [facility] [address] [place] [phone] Kalpana Baptiste MD Primary hypertension (Primary Dx); CKD stage 3 due to type 2 diabetes mellitus ([facility]); Elevated LFTs; Primary osteoarthritis of both knees 05/06/2024 Travel 04/12/2024 Refill [facility] [address] [place] [address] Kalpana Baptiste MD Primary osteoarthritis of both knees (Primary Dx) 04/12/2024 Refill [facility] [address] [place] [address] Kalpana Baptiste MD Type 2 diabetes mellitus with other specified complication, unspecified whether [place] insulin use ([facility]) from Last 3 Months Immunizations Name Administration [...] [id number] 08/09/2013 Moderna Covid-19 Vaccine 12+ 05/08/2021,07/06/19 21,06/06/2020 Pfizer Covid-19 Vaccine 12+ 02/25/2024 Pneumococcal Conjugate [...] EDT Office Visit [facility] [address] [place] [address] [phone] Kalpana Baptiste MD [address] [place], [place] [phone] 08/12/2024 11:30 AM EDT Clinical Support [facility] [address] [place] [phone] Amanda Waldrop, RN Health Maintenance Due Date Last Done [...] exists Dental X-Ray: Bitewings 12/18/2024 12/18/2023, 07/01 Depression Screening 05/06/2025 05/06/2024, 05/06/19 25 SDOH Screening 05/06/2025 05/06/2024 Dental X-Ray: Full Mouth 07/02/2025 07/01/2022 Tobacco Screening 07/07/2025 07/07/2024 Eye Exam 06/22/2026 06/22/2024, 06/05, 06/22/2024, Additional history exists DTaP/Tdap/Td Vaccines (6 - Td or Tdap) [...] Procedure Name Priority Date/Time Associated Diagnosis Comments US ABDOMEN COMPLETE Routine 06/10/2024 2 :37 PM EST Elevated LFTs POCT MARY-14 URINE DRUG SCREEN Routine 05/13/2024 9:14 AM EST Chronic gouty arthritis POCT GLYCATED HEMOGLOBIN, TOTAL Routine 02/25/2024 2:04 [...] :00 PM EST Dental calculus Periodontal disease INTRAORAL - COMPLETE SERIES OF RADIOGRAPHIC IMAGES Routine 07/01/2022 1:00 PM EST Dental calculus Periodontal disease Dental caries ZZZ HISTORICAL HEPATITIS C AB W/REFL TO HCV RNA, QN, PCR Routine 02/20/2021 1:06 PM EDT HM COLONOSCOPY Routine 07/06/2015 from Last 3 Months or Most Recently Relevant to Health Maintenance Results * US Abdomen Complete (06/10/2024 2:37 PM EST) Anatomical Region Laterality Modality Abdomen Ultrasound 06/10/2024 2:37 PM EST Narrative 06/10/2024 2:39 PM EST ? [facility] [facility] ?[address] ?[place] [address] ? Ultrasound Report ? Signed ? Patient: Lavinia,Santa ?MR#: [id number] ?? 74 ? : 1965 ?Acct:[id number] ? Age/Sex: 59 / F ?ADM Date: 06/04/24 ? Loc: HO.US ? Attending Dr: Kalpana Steele MD ? Ordering Physician: Kalpana Baptiste MD ?? Date of Service: 06/04/24 ?? Procedure(s): US abdomen complete ?? Accession Number(s): [id number] ? cc: Kalpana Baptiste MD ? CLINICAL HISTORY: elevated LFTS ? Ultrasound of the abdomen ? Comparison: None ? Findings: ?? The liver is enlarged, measuring 21.9cm. Increased echogenicity without ?? focal lesions. No intrahepatic biliary ductal dilatation. ?? No cholelithiasis. No gallbladder wall thickening or pericholecystic ?? fluid. Negative Louise's sign. ?? The common bile duct is normal, measuring 0.4cm. ?? Unremarkable limited evaluation of the pancreas. ?? The right kidney is normal in echogenicity and size, measuring 11.0cm. No ?? nephrolithiasis or hydronephrosis. There is a simple cyst in the lower ?? pole measuring 1.6 x 2.4 x 1.9 cm. ?? The left kidney is normal echogenicity and size, measuring 10.4cm. No ?? nephrolithiasis or hydronephrosis. There is a simple cyst in the upper ?? pole measuring 0.7 x 1.0 x 1.0 cm. Calcification versus nephrolithiasis ?? measuring 0.4 x 0.4 x 0.4 cm. ?? The spleen is without focal lesions and upper limit of normal size, ?? measuring 12.0cm. ?? The aorta and IVC are unremarkable. ?? No ascites. ? Impression: ?? Hepatomegaly with hepatic steatosis. ? This document has been electronically signed by: Delores Sepulveda MD ?? on 06/10/2024 14:37:25 ? Dictated By: ?Delores Arita MD ? Signed By: ?<Electronically signed by Delores Arita MD in OV> ? 06/10/24 1438 ? DD/ 1437 ? TD/TT: 06/10/24 1437 ? Rotary Shear Worker Helper: ? Procedure Note Donotuseinterpreter, Image - 06/10/[address] [address] Ultrasound Report Signed Patient: Damian Kate#: [id number] 74 : 1965Acct:[id number] Age/Sex: 59 / FADM Date: 06/04/24 Loc: HO.US Attending Dr: Kalpana Steele MD Ordering Physician: Kalpana Baptiste MD Date of Service: 06/04/24 Procedure(s): US abdomen complete Accession Number(s): [id number] cc: Kalpana Baptiste MD CLINICAL HISTORY: elevated LFTS Ultrasound of the abdomen Comparison: None Findings: The liver is enlarged, measuring 21.9cm. Increased echogenicity without focal lesions. No intrahepatic biliary ductal dilatation. No cholelithiasis. No gallbladder wall thickening or pericholecystic fluid. Negative Louise's sign. The common bile duct is normal, measuring 0.4cm. Unremarkable limited evaluation of the pancreas. The right kidney is normal in echogenicity and size, measuring 11.0cm. No nephrolithiasis or hydronephrosis. There is a simple cyst in the lower pole measuring 1.6 x 2.4 x 1.9 cm. The left kidney is normal echogenicity and size, measuring 10.4cm. No nephrolithiasis or hydronephrosis. There is a simple cyst in the upper pole measuring 0.7 x 1.0 x 1.0 cm. Calcification versus nephrolithiasis measuring 0.4 x 0.4 x 0.4 cm. The spleen is without focal lesions and upper limit of normal size, measuring 12.0cm. The aorta and IVC are unremarkable. No ascites. Impression: Hepatomegaly with hepatic steatosis. This document has been electronically signed by: Delores Sepulveda MD on 06/10/2024 14:37:25 Dictated By: Delores Arita MD Signed By: <Electronically signed by Delores Arita MD in OV> 06/10/24 1438 DD/ 1437 TD/TT: 06/10/24 1437 Rotary Shear Worker Helper: Kalpana Steele MD IMG US PROCEDURES Fin al Result * POCT MARY-14 Urine Drug Screen (05/13/2024 9:14 AM EST) Urine Urine specimen obtained by clean catch procedure / Unknown 05/13/2024 9:14 AM EST Narrative Amanda Waldrop RN - 05/13/2024 9:14 AM EST UTOX cup Lot#[id number] Exp. 01/27/26 Internal Pass Control Negative for all substances Kalpana Steele MD POINT OF CARE TEST EN TER/EDIT ORDERABLES Final Result * (ABNORMAL) POCT HGB A1C (02/25/2024 2:04 PM EDT) Hemoglobin A1C 6.0 4.0 - 6.0 % QC Media Lot # [id number] Lot# Expiration Date [id number] Blood 02/25/2024 2:04 PM EDT Kalpana Steele MD POINT OF CARE TEST EN TER/EDIT ORDERABLES Final Result * BI Mammogram Screening Tomosynthesis Bilateral (08/26/2023 2:30 PM EDT) Anatomical Region Laterality Modality Breast Bilateral Mammography 08/26/2023 2:30 PM EDT Narrative 09/22/2023 4:39 AM EDT ? [facility] [place] ? [address] ?[place] [address] ? Mammography Report ? Signed ? Patient: Lavinia,Santa ?MR#: [id number] ?? 74 ? : 1965 ?Acct:[id number] ? Age/Sex: 58 / F ?ADM Date: 04/23/24 ? Loc: HO.MAMMO ? Attending Dr: Kalpana Steele MD ? Ordering Physician: Kalpana Baptiste MD ?Results: ?? 2Benign Findings ? Date of Service: 08/26/23 ?Follow Up: 1 Year From Orig ?? inal Mammogram ? Procedure(s): MM tomosynthesis screening BI ?? Accession Number(s): [id number] ? cc: Kalpana Baptiste MD ? EXAMINATION: ?? MM SCREENING DIGITAL BREAST TOMOSYNTHESIS, BILATERAL ? CLINICAL INFORMATION: ? Screening. Asymptomatic. ? The patient is status post bilateral breast reduction. ? COMPARISON: ?? Mammography: This study is compared with prior exams dating back to ?? 2018. ? TECHNIQUE: ?? Digital breast tomosynthesis is [...] 0435 ? DD/ 1430 ? TD/TT: ? Rotary Shear Worker Helper: ? Procedure Note Donotrayainterpreter, Image - 09/22/2023 [facility] [address] [place], [place] [address] Mammography Report Signed Patient: Damian Kate#: [id number] 74 : 1965Acct:[id number] Age/Sex: 58 / FADM Date: 08/26/23 Loc: HO.MAMMO Attending Dr: Kalpana Steele MD Ordering Physician: Kalpana Baptiste MDResults: 2Benign Findings Date of Service: 08/26/23Follow Up: 1 Year From Orig ina Mammogram Procedure(s): MM tomosynthesis screening BI Accession Number(s): [id number] cc: Kalpana Baptiste MD EXAMINATION: MM SCREENING [...] in OV> 09/22/23 0435 DD/ 1430 TD/TT: Rotary Shear Worker Helper: us Kalpana Steele MD IMG BI PROCEDURES Chad nick Result - Final * (ABNORMAL) Lipid Panel, Standard (08/21/2023 1:45 PM EDT) Triglycerides 552(H) <150 mg/dL [facility] Comment:Desirable Triglyceri de: less than 150 mg/dLBorderline High Triglyceride 150-199 mg/dLHigh Triglyceride: 200-499 mg/dLVery High Triglyceride: greater than or equal to 5OO mg/dL Cholesterol 268(H) <200 mg/dL [facility] Comment:Desirable Cholestero l: less than 200 mg/dLBorderline High Cholesterol: 200-239 mg/dLHigh Cholesterol: greater than 239 mg/dL LDL Cholesterol Calculated TNP <100 mg/dL [facility] Comment:Unable to calculate the LDL. The formula of Friedwald,Stock, and Mendoza is only valid if the triglycerides areless than 400 mg/dl. HDL Cholesterol 50 >40 mg/dL [facility] Comment:Desirable HDL: great er than 40 mg/dL Note: This HDL assay may give artificially low results in patients with liver disease. Blood Venous blood specimen / Unknown 08/21/2023 1:45 PM EDT 08/21/2023 3:52 PM EDT Kalpana Steele MD LAB BLOOD ORDERABLES Final Result [facility] [address] [place] [address] [phone] * HEPATITIS C AB W/REFL TO HCV RNA, QN, PCR (02/20/2021 1:06 PM EDT) HEPATITIS C ANTIBODY NON-REACT KARYNA NON-REACT KARYNA [facility] INDEX 0.02 <1.00 [facility] Comment: ?? HCV antibody was non-reactive. There is no laboratory ?? evidence of HCV infection. ?? In most cases, no further action is required. However, if recent HCV exposure is suspected, a test for HCV RNA (test code 09758) is suggested. ?? For additional information please refer to http://education.Hotlist/faq/YNR65h7 (This link is being provided for informational/ educational purposes only.) ?? 02/20/2021 1:06 PM EDT Jennifer LIM HISTORICAL/NON ORDERABLE LABS Final Result [facility] [address] * Colonoscopy (07/06/2015) Pathologist [facility] Colonoscopy Normal Normal Narrative Therese Brown - 07/06/2015 Recommended 5 year follow up Historical Provider MD HEALTH MAINTENANCE Final Result from Last 3 Months or Most Recently Relevant to Health Maintenance [place] [place] [address] [employer] [employer] ADULT Care Teams Podiatric Assistant Relationship Specialty Start Date End Date Kalpana Baptiste MD [address] [place] [phone] PCP - General Family Medicine 06/14/20
--- OUTSIDE RECORDS SUMMARY | 2024-07-09 10:39 | XMS_ITS | Encounter Summary ---
Author Organization [employer] Address [address] [facility] [address] [place] [address] Care Team Providers Care Box Order Person Name Role Phone Kalpana Baptiste MD Primary Care Provide r Reason for Visit * Reason Comments Med Refill Encounter Details Date Type Department Care Team ([facility] st Contact Info) Description 05/14/2023 Refill [facility] [address] [place], [place] [phone] Kalpana Baptiste MD [address] [place] [address] Primary osteoarthritis of both knees; Heartburn Social [...] Description 08/05/2024 1:00 PM EDT Office Visit [facility] [address] [place] [phone] Kalpana Baptiste MD [address] [place] [phone] 08/12/2024 11:30 AM EDT Clinical Support [facility] [address] [place] [phone] Amanda Waldrop RN documented as of this encounter Visit Diagnoses Diagnosis Primary osteoarthritis of both knees Heartburn documented in this encounter Additional Health Concerns Assessment Noted Time PHQ-9 Depression Total Score: 0 08/22/19 23 10:06 AM EDT documented as of this encounter Care Teams Box Order Person Relationship Specialty Start Date End Date Kalpana Baptiste MD [address] [place] [phone] PCP - General Family Medicine 06/14/20 documented as of this encounter
--- OUTSIDE RECORDS SUMMARY | 2024-07-09 10:39 | XMS_ITS | Encounter Summary ---
Author Organization [facility] Address [address] [place] [address] Care Team Providers Care Monument Installer Name Role Phone Kalpana Baptiste MD Primary Care Provider Reason for Visit * Reason Onset Date Comments BMT appt 05/31/2020 Encounter Details Date Type Department Care Team (Late st Contact Info) Description 05/31/2020 Telephone [facility] Central Scheduling Department [address] [place] [address] Telephone Intake, Staff BMT appt Social History [...] PM EST Pt of [facility]. Bernal at [facility] Calling to schedule a follow up appt CS unable to book as requested. BM Line not available Please call for appt at [phone] documented in this encounter Plan of Treatment Upcoming Encounters Date Type Department Care Team (Late st Contact Info) Description 08/04/2024 12:00 PM EDT Lab [facility] ACC Draw Site Fifth Floor [address] [place] [address] 08/04/2024 1:00 PM EDT Follow-Up [facility] [address] [place] [address] Vivek Bernal MD PhD [address] [place] [phone] documented as of this encounter Visit Diagnoses Not on filedocumented in this encounter Care Teams Monument Installer Relationship Specialty Start Date End Date Kalpana Baptiste MD [address] [place] [phone] PCP - General 11/22/20 documented as of this encounter
--- OUTSIDE RECORDS SUMMARY | 2024-07-09 10:39 | XMS_ITS | Encounter Summary ---
Author Organization [employer] Address [address] [facility] [address] [place] [address] Care Team Providers Care French Edge Operator Name Role Phone Kalpana Baptiste MD Primary Care Provide r Reason for Visit * Reason Comments Med Refill Encounter Details Date Type Department Care Team ([facility] st Contact Info) Description 07/06/2024 Refill [facility] [address] [place], [place] [phone] Kalpana Baptiste MD [address] [place] [address] Primary osteoarthritis of both knees Social History [...] Description 08/05/2024 1:00 PM EDT Office Visit [facility] [address] [place] [phone] Kalpana Baptiste MD [address] [place] [phone] 08/12/2024 11:30 AM EDT Clinical Support [address] [phone] Amanda Wadlrop, RN documented as of this encounter Visit Diagnoses Diagnosis Primary osteoarthritis of both knees documented in this encounter Additional Health Concerns Assessment Noted Time PHQ-9 Depression Total Score: 0 05/06/19 25 2:15 PM EST documented as of this encounter Care Teams French Edge Operator Relationship Specialty Start Date End Date Kalpana Baptiste MD [address] [place] [phone] PCP - General Family Medicine 06/14/20 documented as of this encounter
[2024-07-09 11:27] LABS: HBsAGNum1 0.32 S/CO (0.00-0.99); Hepatitis A Antibody IgM 0.21 Index (0-0.79); Hepatitis B Core Antibody Nonreactive (Nonreactive); Hepatitis B Surface Antigen Negative (Negative); ~HepC Num1 0.09 S/CO (0.00-0.79); ~Hepatitis A Antibody IgM Nonreactive (Nonreactive); ~Hepatitis B Surface Antibody NONREACTIVE (Nonreactive); ~Hepatitis C Antibody Nonreactive (Nonreactive)
== END 2024-07-09 09:44 | disposition home or self-care (01) ==
LOC: HO.LAB 09:43
PROVIDERS: PCP Internal Medicine; Visit Provider Internal Medicine
DX: R79.89 Other specified abnormal findings of blood chemistry (principal)
CPT/HCPCS: 36415; 86704; 86706; 86709; 86803; 87340

== ENCOUNTER 2024-07-15 12:05 | Outpatient (REF) | payer MEDICAID, SELFPAY ==
[2024-07-15 12:29] LABS: MANUAL DIFF FLAG NO
[2024-07-15 12:51] LABS: Basophils Percent Auto 0.2 % (0-2); Eosinophils Absolute Auto 0.1 X10*3/uL (0.0-0.4); Eosinophils Percent Auto 1.4 % (0-4); Hematocrit 29.6 % (37.0-47.0); Hemoglobin 10.1 g/dl (12.0-16.0); Imm Gran Abs Auto 0.03 X10*3/uL (0.00-0.03); Imm Gran Pct Auto 0.7 % (0.0-0.4); Lymphocytes Absolute Auto 1.9 X10*3/uL (1.2-4.9); Mean Corpuscular HGB Conc 34.1 g/dl (31.0-35.0); Mean Corpuscular Hemoglobin 29.4 pg (27.0-33.0); Mean Corpuscular Volume 86.3 fL (80.0-98.0); Mean Platelet Volume 9.2 fL (9.4-12.3); Monocytes Absolute Auto 0.4 X10*3/uL (0.1-1.2); Neutrophils Absolute Auto 1.9 x10*3/uL (2.0-8.3); Neutrophils Percent Auto 43.7 % (45-73); Platelet Count 251 X10*3/uL (160-400); Red Blood Count 3.43 X10*6/uL (4.20-5.50); Red Cell Distribution Width 13.6 % (11.0-16.0); White Blood Count 4.3 X10*3/uL (4.8-10.8)
[2024-07-15 12:55] LABS: Appearance Urine Clear; Color Urine Yellow; Glucose Urine UA Negative (Negative); Leukocyte Esterase Urine Negative (Negative); Nitrite Urine Negative (Negative); Specific Gravity - Urine 1.015 (1.005-1.025); UMIC TRIGGER UA YES; Urine Blood Small (1+) (Negative); Urine Ketones Negative (Negative); Urine Protein 300 (3+) mg/dL (Neg-Trace)
[2024-07-15 13:08] LABS: Bacteria Urine None Seen (None Seen); RBC Urine 0-2 /HPF (0-2); WBC Urine 0-5 /HPF (0-5)
[2024-07-15 13:24] LABS: Albumin Level 4.3 g/dL (3.5-5.0); Anion Gap 15 (12-20); Blood Urea Nitrogen 22 mg/dL (9-16); Carbon Dioxide 22 mmol/L (22-29); Chloride 112 mmol/L (96-108); Estimated Glomerular Filt Rate 29; Magnesium 1.7 mg/dL (1.6-2.6); Potassium 4.2 mmol/L (3.3-5.1); Sodium 145 mmol/L (135-145)
[2024-07-15 13:41] LABS: Parathyroid Hormone Intact 117.4 pg/mL (8.7-77.1); Vitamin D 25-OH Total 29.3 ng/mL (>30)
[2024-07-15 14:11] LABS: Creatinine Urine 155.09 mg/dL; Protein/Creatinine Ratio, Ur 1.25 (<0.2); Total Protein Urine Random 194 mg/dL (<12)
[2024-07-15 14:24] LABS: Microalbum/Creatinine Ratio Ur 956.2 ug/mg cr (<30)
--- OUTSIDE RECORDS SUMMARY | 2024-07-15 15:33 | XMS_ITS | Encounter Summary ---
Author Organization [employer] Address [address] [facility] [address] [place] [address] Care Team Providers Care Tangled Yarn Worker Name Role Phone Kalpana Baptiste MD Primary Care Provide r Reason for Visit * Reason Comments Med Refill Encounter Details Date Type Department Care Team ([facility] st Contact Info) Description 07/08/2023 Refill [facility] [address] [place], [place] [phone] Caryl Biggs MD [address] [place] [address] Primary osteoarthritis of both knees Social History [...] 08/05/2024 1:00 PM EDT Office Visit [facility] [address] [place] [phone] Kalpana Baptiste MD [address] [place] [phone] 08/12/2024 11:30 AM EDT Clinical Support [address] [phone] Amanda Waldrop, NEGAR documented as of this encounter Visit Diagnoses Diagnosis Primary osteoarthritis of both knees documented in this encounter Additional Health Concerns Assessment Noted Time PHQ-9 Depression Total Score: 0 08/22/19 23 10:06 AM EDT documented as of this encounter Care Teams Tangled Yarn Worker Relationship Specialty Start Date End Date Kalpana Baptiste MD [address] [place] [phone] PCP - General Family Medicine 06/14/20 documented as of this encounter
--- OUTSIDE RECORDS SUMMARY | 2024-07-15 15:33 | XMS_ITS | Encounter Summary ---
Author Organization [employer] Address [address] [facility] [facility] [address] 7t [place] [address] Care Team Providers Care Professor Computer Science Name Role Phone Kalpana Baptiste MD Primary Care Provide r Reason for Visit * Reason Comments Med Refill Encounter Details Date Type Department Care Team ([facility] st Contact Info) Description 07/14/[address] [facility] MEDICINE 230 [place], [place] [phone] Caryl Biggs MD 230 [place] [address] Primary osteoarthritis of both knees Social History [...] [facility] MEDICINE [address] [place] [address] Kalpana Baptiste MD [address] [place] [address] 08/12/2024 11:30 AM EDT Clinical Support [address] [address] Amanda Waldrop, NEGAR documented as of this encounter Visit Diagnoses Diagnosis Primary osteoarthritis of both knees documented in this encounter Additional Health Concerns Assessment Noted Time PHQ-9 Depression Total Score: 0 08/22/19 23 10:06 AM EDT documented as of this encounter Care Teams Professor Computer Science Relationship Specialty Start Date End Date Kalpana Baptiste MD [address] [place] [phone] PCP - General Family Medicine 06/14/20 documented as of this encounter
--- OUTSIDE RECORDS SUMMARY | 2024-07-15 15:33 | XMS_ITS | Encounter Summary ---
Author Organization [employer] Address [address] [facility] 7t [place] [address] Care Team Providers Care Shuttle Inspector Name Role Phone Kalpana Baptiste MD Primary Care Provide r Reason for Visit * Reason Comments Med Refill Encounter Details Date Type Department Care Team ([facility] Contact Info) Description 08/23/2022 Refill [facility] MEDICINE 230 [place], [place] [phone] Kalpana Baptiste MD 230 [place] [address] Primary osteoarthritis of both knees Social History [...] 08/05/2024 1:00 PM EDT Office Visit [facility] MEDICINE [address] [place] [phone] Kalpana Baptiste MD [address] [place] [address] 08/12/2024 11:30 AM EDT Clinical Support [address] [address] Amanda Waldrop RN documented as of this encounter Visit Diagnoses Diagnosis Primary osteoarthritis of both knees documented in this encounter Additional Health Concerns Assessment Noted Time PHQ-9 Depression Total Score: 0 08/22/19 23 10:06 AM EDT documented as of this encounter Care Teams Shuttle Inspector Relationship Specialty Start Date End Date Kalpana Baptiste MD [address] [place] [phone] PCP - General Family Medicine 06/14/20 documented as of this encounter
--- OUTSIDE RECORDS SUMMARY | 2024-07-15 15:33 | XMS_ITS | Encounter Summary ---
Author Organization [employer] Address [address] [address] 7t [place] [address] Care Team Providers Care Care Center Manager Name Role Phone Kalpana Baptiste MD Primary Care Provide r Reason for Visit * Reason Comments Med Refill Encounter Details Date Type Department Care Team ([facility] st Contact Info) Description 09/15/2023 Refill [facility] MEDICINE 230 [place], [place] [phone] Kalpana Baptiste MD 230 [place] [address] Chronic tension-type headache, not intractable; Dry eyes; [...] Description 08/05/2024 1:00 PM EDT Office Visit [address] [address] Kalpana Baptiste MD [address] [place] [address] 08/12/2024 11:30 AM EDT Clinical Support [address] [address] Amanda Waldrop RN documented as of this encounter Visit Diagnoses Diagnosis Chronic tension-type headache, not intractable Chronic tension type headache Dry eyes Unspecified tear film insufficiency Primary osteoarthritis of both knees documented in this encounter Additional Health Concerns Assessment Noted Time PHQ-9 Depression Total Score: 0 08/22/19 23 10:06 AM EDT documented as of this encounter Care Teams Care Center Manager Relationship Specialty Start Date End Date Kalpana Baptiste MD [address] [place] [phone] PCP - General Family Medicine 06/14/20 documented as of this encounter
--- OUTSIDE RECORDS SUMMARY | 2024-07-15 15:33 | XMS_ITS | Encounter Summary ---
Author Organization [employer] Address [address] [facility] [address] 7t [place] [address] Care Team Providers Care Rolls Baker Name Role Phone Kalpana Baptiste MD Primary Care Provide r Reason for Visit * Reason Comments Med Refill Encounter Details Date Type Department Care Team ([facility] st Contact Info) Description 06/27/2023 Refill [facility] MEDICINE 230 [place], [place] [phone] Kalpana Baptiste MD 230 [place] [address] Heartburn Social History Tobacco Use Types Packs/Day [...] EDT Office Visit [facility] MEDICINE [address] [place] [address] Kalpana Baptiste MD [address] [place] [address] 08/12/2024 11:30 AM EDT Clinical Support [facility] MEDICINE [address] [place] [address] Amanda Waldrop, NEGAR documented as of this encounter Visit Diagnoses Diagnosis Heartburn documented in this encounter Additional Health Concerns Assessment Noted Time PHQ-9 Depression Total Score: 0 08/22/19 23 10:06 AM EDT documented as of this encounter Care Teams Rolls Baker Relationship Specialty Start Date End Date Kalpana Baptiste MD [address] [place] [address] PCP - General Family Medicine 06/14/20 documented as of this encounter
--- OUTSIDE RECORDS SUMMARY | 2024-07-15 15:33 | XMS_ITS | Encounter Summary ---
Author Organization [employer] Address [address] [facility] [address] [facility] [address] 7t [place] [address] Care Team Providers Care Catalogue And Special Products Manager Name Role Phone Kalpana Baptiste MD Primary Care Provide r Reason for Visit * Reason Comments Med Refill Encounter Details Date Type Department Care Team ([facility] st Contact Info) Description 06/09/2023 Refill [facility]INE 230 [place], [place] [phone] Kalpana Baptiste MD 230 [place] [address] Chronic tension-type headache, not intractable; Primary osteoarthritis [...] Description 08/05/2024 1:00 PM EDT Office Visit [address] [address] Kalpana Baptiste MD [address] [place] [address] 08/12/2024 11:30 AM EDT Clinical Support [address] [address] Amanda Waldrop RN documented as of this encounter Visit Diagnoses Diagnosis Chronic tension-type headache, not intractable Chronic tension type headache Primary osteoarthritis of both knees Heartburn documented in this encounter Additional Health Concerns Assessment Noted Time PHQ-9 Depression Total Score: 0 08/22/19 23 10:06 AM EDT documented as of this encounter Care Teams Catalogue And Special Products Manager Relationship Specialty Start Date End Date Kalpana Baptiste MD [address] [place] [address] PCP - General Family Medicine 06/14/20 documented as of this encounter
--- OUTSIDE RECORDS SUMMARY | 2024-07-15 15:33 | XMS_ITS | Encounter Summary ---
Author Organization [employer] Address [address] [facility] [address] 7t [place] [address] Care Team Providers Care Manager Lsw Name Role Phone Kalpana Baptiste MD Primary Care Provide r Reason for Visit * Reason Comments Med Refill Encounter Details Date Type Department Care Team ([facility] st Contact Info) Description 07/05/2023 Refill [facility] 230 [place], [place] [phone] Caryl Biggs MD 230 [place] [address] Primary osteoarthritis of both knees Social History [...] Office Visit [facility] [address] [place] [address] Kalpana Baptiste MD [address] [place] [address] 08/12/2024 11:30 AM EDT Clinical Support [address] [address] Amanda Waldrop, NEGAR documented as of this encounter Visit Diagnoses Diagnosis Primary osteoarthritis of both knees documented in this encounter Additional Health Concerns Assessment Noted Time PHQ-9 Depression Total Score: 0 08/22/19 23 10:06 AM EDT documented as of this encounter Care Teams Manager Lsw Relationship Specialty Start Date End Date Kalpana Baptiste MD [address] [place] [address] PCP - General Family Medicine 06/14/20 documented as of this encounter
--- OUTSIDE RECORDS SUMMARY | 2024-07-15 15:33 | XMS_ITS | Encounter Summary ---
Author Organization [employer] Address [address] [facility] [facility] [address] 7t [place] [address] Care Team Providers Care Green Promotions Specialist Name Role Phone Kalpana Baptiste MD Primary Care Provide r Reason for Visit * Reason Comments Med Refill Encounter Details Date Type Department Care Team ([facility] st Contact Info) Description 08/28/2023 Refill [facility] MEDICINE 230 [place], [place] [phone] Kalpana Baptiste MD 230 [place] [address] Primary osteoarthritis of both knees Social History [...] Description 08/05/2024 1:00 PM EDT Office Visit [facility] MEDICINE [address] [place] [phone] Kalpana Baptiste MD [address] [place] [address] 08/12/2024 11:30 AM EDT Clinical Support [facility] MEDICINE [address] [place] [address] Amanda Waldrop, NEGAR documented as of this encounter Visit Diagnoses Diagnosis Primary osteoarthritis of both knees documented in this encounter Additional Health Concerns Assessment Noted Time PHQ-9 Depression Total Score: 0 08/22/19 23 10:06 AM EDT documented as of this encounter Care Teams Green Promotions Specialist Relationship Specialty Start Date End Date Kalpana Baptiste MD [address] [place] [address] PCP - General Family Medicine 06/14/20 documented as of this encounter
--- OUTSIDE RECORDS SUMMARY | 2024-07-15 15:33 | XMS_ITS | Encounter Summary ---
Author Organization [employer] Address [address] [facility] [address] [facility] [address] 7t [place] [address] Care Team Providers Care Web Offset Press Feeder Name Role Phone Kalpana Baptiste MD Primary Care Provide r Reason for Visit * Reason Onset Date Comments Med Refill 10/13/2023 Encounter Details Date Type Department Care Team ([facility] st Contact Info) Description 10/13/2023 Telephone [facility] MEDICINE 230 [place], [place] [phone] Kalpana Baptiste MD 230 [place] [address] Med Refill Social History Tobacco Use Types [...] 1 g tablet To be sent to: [facility] - [place], [place] - [address] [place] [address] documented in this encounter Plan of Treatment Upcoming Encounters Date Type Department Care Team (Late st Contact Info) Description 08/05/2024 1:00 PM EDT Office Visit [facility] MEDICINE [address] [place] [phone] Kalpana Baptiste MD 230 [place] [address] 08/12/2024 11:30 AM EDT Clinical Support [facility] MEDICINE [address] [place] [address] Amanda Waldrop RN documented as of this encounter Visit Diagnoses Not on filedocumented in this encounter Additional Health Concerns Assessment Noted Time PHQ-9 Depression Total Score: 0 08/22/19 23 10:06 AM EDT documented as of this encounter Care Teams Web Offset Press Feeder Relationship Specialty Start Date End Date Kalpana Baptiste MD 230 [place] [address] PCP - General Family Medicine 06/14/20 documented as of this encounter
--- OUTSIDE RECORDS SUMMARY | 2024-07-15 15:33 | XMS_ITS | Encounter Summary ---
Author Organization [employer] Address [address] [facility] 7t [place] [address] Care Team Providers Care Pick Up Driver Name Role Phone Kalpana Baptiste MD Primary Care Provide r Reason for Visit * Reason Comments Med Refill Encounter Details Date Type Department Care Team (Late Contact Info) Description 10/04/2022 Refill [facility] 505 [place], [place] [phone] Tootie Tineo ANP 230 [place], [place] [phone] Social History Tobacco Use Types Packs/Day Years [...] Encounters Date Type Department Care Team ([facility] Contact Info) Description 08/05/2024 1:00 PM EDT Office Visit [facility] MEDICINE 230 [place], [place] [phone] Kalpana Baptiste MD 230 [place], [place] [phone] 08/12/2024 11:30 AM EDT Clinical Support [facility] MEDICINE 230 [place] [address] Amanda Waldrop RN documented as of this encounter Visit Diagnoses Not on filedocumented in this encounter Additional Health Concerns Assessment Noted Time PHQ-9 Depression Total Score: 0 08/22/19 23 10:06 AM EDT documented as of this encounter Care Teams Pick Up Driver Relationship Specialty Start Date End Date Kalpana Baptiste MD 230 [place] [address] PCP - General Family Medicine 06/14/20 documented as of this encounter
--- OUTSIDE RECORDS SUMMARY | 2024-07-15 15:33 | XMS_ITS | Encounter Summary ---
Author Organization [facility] Address [address] [place] [address] Care Team Providers Care Marketing Communications Specialist Name Role Phone Kalpana Baptiste MD Primary Care Provider Encounter Details Date Type Department Care Team (Late st Contact Info) Description 01/15/2016 Orders Only [facility] Building [address] [place] [phone] Aylin Gunn PA [address] [place] [address] [place] [address] Social History Tobacco Use Types Packs/Day Years [...] Info) Description 08/04/2024 12:00 PM EDT Lab [facility] ACC Draw Site Fifth Floor [address] [place] [address] 08/04/2024 1:00 PM EDT Follow-Up [facility] [address] [place] [address] Vivek Bernal MD PhD [address] [place] [address] documented as of this encounter Visit Diagnoses Not on filedocumented in this encounter Care Teams Marketing Communications Specialist Relationship Specialty Start Date End Date Kalpana Baptiste MD 230 [place] [address] PCP - General 11/22/20 documented as of this encounter
--- OUTSIDE RECORDS SUMMARY | 2024-07-15 15:33 | XMS_ITS | Encounter Summary ---
Author Organization [employer] Address [address] [facility] [address] 7t [place] [address] Care Team Providers Care Appliance Sales Associate Name Role Phone Kalpana Baptiste MD Primary Care Provide r Encounter Details Date Type Department Care Team ([facility] st Contact Info) Description 08/29/2023 Telephone [facility] MEDICINE 230 [place], [place] [phone] Kalpana Baptiste MD 230 [place], [place] [phone] Social History Tobacco Use Types Packs/Day Years [...] 08/05/2024 1:00 PM EDT Office Visit [facility] MEDICINE [address] [place] [address] Kalpana Baptiste MD [address] [place] [address] 08/12/2024 11:30 AM EDT Clinical Support [facility] MEDICINE [address] [place] [address] Amanda Waldrop, NEGAR documented as of this encounter Visit Diagnoses Not on filedocumented in this encounter Additional Health Concerns Assessment Noted Time PHQ-9 Depression Total Score: 0 08/22/19 23 10:06 AM EDT documented as of this encounter Care Teams Appliance Sales Associate Relationship Specialty Start Date End Date Kalpana Baptiste MD [address] [place] [address] PCP - General Family Medicine 06/14/20 documented as of this encounter
--- OUTSIDE RECORDS SUMMARY | 2024-07-15 15:33 | XMS_ITS | Encounter Summary ---
Author Organization [employer] Address [address] [facility] [address] [facility] [address] 7t [place] [address] Care Team Providers Care Cadastral Engineer Name Role Phone Kalpana Baptiste MD Primary Care Provide r Reason for Visit * Reason Comments Med Refill Encounter Details Date Type Department Care Team ([facility] st Contact Info) Description 09/15/2023 Refill [facility] MEDICINE 230 [place], [place] [phone] Neida Garrett DO 230 [place] [address] Heartburn Social History Tobacco Use Types Packs/Day [...] Description 08/05/2024 1:00 PM EDT Office Visit [facility] MEDICINE [address] [place] [address] Kalpana Baptiste MD [address] [place] [address] 08/12/2024 11:30 AM EDT Clinical Support [facility] MEDICINE [address] [place] [address] Amanda Waldrop, NEGAR documented as of this encounter Visit Diagnoses Diagnosis Heartburn documented in this encounter Additional Health Concerns Assessment Noted Time PHQ-9 Depression Total Score: 0 08/22/19 23 10:06 AM EDT documented as of this encounter Care Teams Cadastral Engineer Relationship Specialty Start Date End Date Kalpana Baptiste MD [address] [place] [address] PCP - General Family Medicine 06/14/20 documented as of this encounter
--- OUTSIDE RECORDS SUMMARY | 2024-07-15 15:33 | XMS_ITS | Encounter Summary ---
Author Organization [employer] Address [address] [facility] 7t [place] [address] Care Team Providers Care Dressing Machine Operator Name Role Phone Kalpana Baptiste MD Primary Care Provide r Reason for Visit * Reason Comments Med Refill Encounter Details Date Type Department Care Team ([facility] Contact Info) Description 12/19/2022 Refill [facility] MEDICINE [address] [place] [address] [phone] Kalpana Baptiste MD 230 [place], [place] [phone] Primary osteoarthritis of both knees Social History [...] Upcoming Encounters Date Type Department Care Team ([facility] Contact Info) Description 08/05/2024 1:00 PM EDT Office Visit [facility] MEDICINE 230 [place] [address] Kalpana Baptiste MD 230 [place] [address] 08/12/2024 11:30 AM EDT Clinical Support [facility] MEDICINE 230 [place] [address] Amanda Waldrop, RN documented as of this encounter Visit Diagnoses Diagnosis Primary osteoarthritis of both knees documented in this encounter Additional Health Concerns Assessment Noted Time PHQ-9 Depression Total Score: 0 08/22/19 23 10:06 AM EDT documented as of this encounter Care Teams Dressing Machine Operator Relationship Specialty Start Date End Date Kalpana Baptiste MD [address] [place] [address] PCP - General Family Medicine 06/14/20 documented as of this encounter
--- OUTSIDE RECORDS SUMMARY | 2024-07-15 15:33 | XMS_ITS | Encounter Summary ---
Author Organization [employer] Address [address] [facility] [address] 7t [place] [address] Care Team Providers Care Business Intelligence Consultant Name Role Phone Kalpana Baptiste MD Primary Care Provide r Reason for Visit * Reason Comments Med Refill Encounter Details Date Type Department Care Team ([facility] st Contact Info) Description 08/11/2023 Refill [facility] MEDICINE 230 [place], [place] [phone] Kalpana Baptiste MD 230 [place] [address] Chronic gout of multiple sites, unspecified cause; [...] 1:00 PM EDT Office Visit [facility] MEDICINE [address] [place] [phone] Kalpana Baptiste MD [address] [place] [address] 08/12/2024 11:30 AM EDT Clinical Support [address] [address] Amanda Waldrop RN documented as of this encounter Visit Diagnoses Diagnosis Chronic gout of multiple sites, unspecified cause Primary osteoarthritis of both knees Moderate persistent asthma without complication documented in this encounter Additional Health Concerns Assessment Noted Time PHQ-9 Depression Total Score: 0 08/22/19 23 10:06 AM EDT documented as of this encounter Care Teams Business Intelligence Consultant Relationship Specialty Start Date End Date Kalpana Baptiste MD [address] [place] [address] PCP - General Family Medicine 06/14/20 documented as of this encounter
--- OUTSIDE RECORDS SUMMARY | 2024-07-15 15:33 | XMS_ITS | Encounter Summary ---
Author Organization [email or web address] Address [address] [facility] [address] 7t [place] [address] Care Team Providers Care Safety Belt Installer Name Role Phone Kalpana Baptiste MD Primary Care Provide r Reason for Visit * Reason Comments Med Refill Encounter Details Date Type Department Care Team ([facility] st Contact Info) Description 09/19/2023 Refill [facility] MEDICINE 230 [place], [place] [phone] Kalpana Baptiste MD 230 [place] [address] Primary osteoarthritis of both knees; Chronic tension-type [...] Description 08/05/2024 1:00 PM EDT Office Visit [address] [address] Kalpana Baptiste MD [address] [place] [address] 08/12/2024 11:30 AM EDT Clinical Support [address] [address] Amanda Waldrop RN documented as of this encounter Visit Diagnoses Diagnosis Primary osteoarthritis of both knees Chronic tension-type headache, not intractable Chronic tension type headache Dry eyes Unspecified tear film insufficiency documented in this encounter Additional Health Concerns Assessment Noted Time PHQ-9 Depression Total Score: 0 08/22/19 23 10:06 AM EDT documented as of this encounter Care Teams Safety Belt Installer Relationship Specialty Start Date End Date Kalpana Baptiste MD [address] [place] [address] PCP - General Family Medicine 06/14/20 documented as of this encounter
--- OUTSIDE RECORDS SUMMARY | 2024-07-15 15:33 | XMS_ITS | Encounter Summary ---
Author Organization [employer] Address [address] [facility] [address] 7t [place] [address] Care Team Providers Care Detailer Name Role Phone Kalpana Baptiste MD Primary Care Provide r Reason for Visit * Reason Comments Med Refill Encounter Details Date Type Department Care Team ([facility] st Contact Info) Description 12/26/2023 [facility]ill [facility] 230 [place], [place] [phone] Kalpana Baptiste MD 230 [place] [address] Other hyperlipidemia; Chronic gout of multiple sites, [...] 08/05/2024 1:00 PM EDT [facility] [address] [place] [address] Kalpana Baptiste MD [address] [place] [address] 08/12/2024 11:30 AM EDT Clinical Support [facility] [address] [place] [address] Amanda Waldrop RN documented as of this encounter Visit Diagnoses Diagnosis Other hyperlipidemia Chronic gout of multiple sites, unspecified cause Abdominal pain, epigastric Allergic rhinitis, unspecified seasonality, unspecified trigger Moderate persistent asthma without complication documented in this encounter Additional Health Concerns Assessment Noted Time PHQ-9 Depression Total Score: 0 08/22/19 23 10:06 AM EDT documented as of this encounter Care Teams Detailer Relationship Specialty Start Date End Date Kalpana Baptiste MD [address] [place] [address] PCP - General Family Medicine 06/14/20 documented as of this encounter
--- OUTSIDE RECORDS SUMMARY | 2024-07-15 15:33 | XMS_ITS | Encounter Summary ---
Author Organization [employer] Address [address] [facility] 7t [place] [address] Care Team Providers Care Managing Broker Name Role Phone Kalpana Baptiste MD Primary Care Provide r Reason for Visit * Reason Comments Med Refill Encounter Details Date Type Department Care Team ([facility] Contact Info) Description 09/03/2022 Refill [facility] MEDICINE [address] [place], [place] [phone] Kalpana Baptiste MD 230 [place] [address] Primary osteoarthritis of both knees Social History [...] Upcoming Encounters Date Type Department Care Team ([facility] Contact Info) Description 08/05/2024 1:00 PM EDT Office Visit [facility] MEDICINE [address] [place] [address] Kalpana Baptiste MD [address] [place] [address] 08/12/2024 11:30 AM EDT Clinical Support [address] [address] Amanda Waldrop RN documented as of this encounter Visit Diagnoses Diagnosis Primary osteoarthritis of both knees documented in this encounter Additional Health Concerns Assessment Noted Time PHQ-9 Depression Total Score: 0 08/22/19 23 10:06 AM EDT documented as of this encounter Care Teams Managing Broker Relationship Specialty Start Date End Date Kalpana Baptiste MD [address] [place] [phone] PCP - General Family Medicine 06/14/20 documented as of this encounter
--- OUTSIDE RECORDS SUMMARY | 2024-07-15 15:33 | XMS_ITS | Encounter Summary ---
Author Organization [employer] Address [address] 7t [place] [address] Care Team Providers Care Payroll Accounting Clerk Name Role Phone Kalpana Baptiste MD Primary Care Provide r Reason for Visit * Reason Comments Med Refill Encounter Details Date Type Department Care Team ([facility] st Contact Info) Description 06/29/2023 Refill [facility] MEDICINE 230 [place], [place] [phone] Caryl Biggs MD 230 [place] [address] Primary osteoarthritis of both knees Social History [...] 1:00 PM EDT Office Visit [facility] MEDICINE [address] [place] [address] Kalpana Baptiste MD [address] [place] [address] 08/12/2024 11:30 AM EDT Clinical Support [address] [address] Amanda Waldrop, NEGAR documented as of this encounter Visit Diagnoses Diagnosis Primary osteoarthritis of both knees documented in this encounter Additional Health Concerns Assessment Noted Time PHQ-9 Depression Total Score: 0 08/22/19 23 10:06 AM EDT documented as of this encounter Care Teams Payroll Accounting Clerk Relationship Specialty Start Date End Date Kalpana Baptiste MD [address] [place] [address] PCP - General Family Medicine 06/14/20 documented as of this encounter
--- OUTSIDE RECORDS SUMMARY | 2024-07-15 15:33 | XMS_ITS | Encounter Summary ---
Author Organization [facility] Address [address] [place] [address] Care Team Providers Care Catering Assistant Name Role Phone Kalpana Baptiste MD Primary Care Provider Encounter Details Date Type Department Care Team (Late st Contact Info) Description 01/17/2016 Orders Only [facility] Building [address] [place] [address] Aylin Gunn PA [address] [place] [address] Hematology[place] [address] Social History Tobacco Use Types Packs/Day Years [...] Info) Description 08/04/2024 12:00 PM EDT Lab [facility] ACC Draw Site Fifth Floor [address] [place] [address] 08/04/2024 1:00 PM EDT Follow-Up [facility] [address] [place] [address] Vivek Bernal MD PhD [address] [place] [address] documented as of this encounter Visit Diagnoses Not on filedocumented in this encounter Care Teams Catering Assistant Relationship Specialty Start Date End Date Kalpana Baptiste MD 230 [place] [address] PCP - General 11/22/20 documented as of this encounter
--- OUTSIDE RECORDS SUMMARY | 2024-07-15 15:33 | XMS_ITS | Encounter Summary ---
Author Organization [employer] Address [address] [facility] [address] 7t [place] [address] Care Team Providers Care Funeral Service Licensee Name Role Phone Kalpana Baptiste MD Primary Care Provide r Reason for Visit * Reason Comments Med Refill Encounter Details Date Type Department Care Team ([facility] st Contact Info) Description 06/06/2023 Refill [facility] MEDICINE 230 [place], [place] [phone] Kalpana Baptiste MD [address] [place] [address] Primary osteoarthritis of both knees; Chronic tension-type [...] 08/05/2024 1:00 PM EDT Office Visit [address] [address] Kalpana Baptiste MD [address] [place] [address] 08/12/2024 11:30 AM EDT Clinical Support [address] [address] Amanda Waldrop RN documented as of this encounter Visit Diagnoses Diagnosis Primary osteoarthritis of both knees Chronic tension-type headache, not intractable Chronic tension type headache Heartburn documented in this encounter Additional Health Concerns Assessment Noted Time PHQ-9 Depression Total Score: 0 08/22/19 23 10:06 AM EDT documented as of this encounter Care Teams Funeral Service Licensee Relationship Specialty Start Date End Date Kalpana Baptiste MD [address] [place] [address] PCP - General Family Medicine 06/14/20 documented as of this encounter
--- OUTSIDE RECORDS SUMMARY | 2024-07-15 15:33 | XMS_ITS | Encounter Summary ---
Author Organization [employer] Address [address] [facility] [address] 7t [place] [address] Care Team Providers Care Seo Manager Name Role Phone Kalpana Baptiste MD Primary Care Provide r Reason for Visit * Reason Comments Med Refill Encounter Details Date Type Department Care Team ([facility] st Contact Info) Description 06/05/2023 Refill [facility] MEDICINE 230 [place], [place] [phone] Kalpana Baptiste MD 230 [place] [address] Heartburn; Chronic tension-type headache, not intractable; Primary [...] 08/05/2024 1:00 PM EDT Office Visit [address] [address] Kalpana Baptiste MD [address] [place] [address] 08/12/2024 11:30 AM EDT Clinical Support [address] [address] Amanda Waldrop RN documented as of this encounter Visit Diagnoses Diagnosis Heartburn Chronic tension-type headache, not intractable Chronic tension type headache Primary osteoarthritis of both knees documented in this encounter Additional Health Concerns Assessment Noted Time PHQ-9 Depression Total Score: 0 08/22/19 23 10:06 AM EDT documented as of this encounter Care Teams Seo Manager Relationship Specialty Start Date End Date Kalpana Baptiste MD [address] [place] [address] PCP - General Family Medicine 06/14/20 documented as of this encounter
--- OUTSIDE RECORDS SUMMARY | 2024-07-15 15:33 | XMS_ITS | Encounter Summary ---
Author Organization [employer] Address [address] [facility] [address] 7t [place] [address] Care Team Providers Care Workplace Trainer And Assessor Name Role Phone Kalpana Baptiste MD Primary Care Provide r Reason for Visit * Reason Comments Med Refill Encounter Details Date Type Department Care Team ([facility] st Contact Info) Description 06/30/2023 Refill [facility] MEDICINE 230 [place], [place] [phone] Kalpana Baptiste MD 230 [place] [address] Heartburn Social History Tobacco Use Types Packs/Day [...] Description 08/05/2024 1:00 PM EDT Office Visit [facility] MEDICINE [address] [place] [address] Kalpana Baptiste MD [address] [place] [address] 08/12/2024 11:30 AM EDT Clinical Support [facility] [address] [place] [address] Amanda Waldrop, NEGAR documented as of this encounter Visit Diagnoses Diagnosis Heartburn documented in this encounter Additional Health Concerns Assessment Noted Time PHQ-9 Depression Total Score: 0 08/22/19 23 10:06 AM EDT documented as of this encounter Care Teams Workplace Trainer And Assessor Relationship Specialty Start Date End Date Kalpana Baptiste MD [address] [place] [address] PCP - General Family Medicine 06/14/20 documented as of this encounter
--- OUTSIDE RECORDS SUMMARY | 2024-07-15 15:33 | XMS_ITS | Encounter Summary ---
Author Organization [employer] Address [address] 7t [place] [address] Care Team Providers Care Town Manager Name Role Phone Kalpana Baptiste MD Primary Care Provide r Reason for Visit * Reason Comments Med Refill Encounter Details Date Type Department Care Team ([facility] st Contact Info) Description 07/25/2023 Refill [facility] MEDICINE 230 [place], [place] [phone] Caryl Biggs MD 230 [place] [address] Chronic tension-type headache, not intractable Social History [...] 08/05/2024 1:00 PM EDT Office Visit [facility] MEDICINE [address] [place] [address] Kalpana Baptiste MD [address] [place] [address] 08/12/2024 11:30 AM EDT Clinical Support [address] [address] Amanda Waldrop RN documented as of this encounter Visit Diagnoses Diagnosis Chronic tension-type headache, not intractable Chronic tension type headache documented in this encounter Additional Health Concerns Assessment Noted Time PHQ-9 Depression Total Score: 0 08/22/19 23 10:06 AM EDT documented as of this encounter Care Teams Town Manager Relationship Specialty Start Date End Date Kalpana Baptiste MD [address] [place] [address] PCP - General Family Medicine 06/14/20 documented as of this encounter
--- OUTSIDE RECORDS SUMMARY | 2024-07-15 15:33 | XMS_ITS | Encounter Summary ---
Author Organization [employer] Address [address] [facility] [address] 7t [place] [address] Care Team Providers Care Shuttle Threader Name Role Phone Kalpana Baptiste MD Primary Care Provide r Reason for Visit * Reason Comments Med Refill Encounter Details Date Type Department Care Team ([facility] st Contact Info) Description 07/28/2023 Refill [facility] MEDICINE 230 [place], [place] [phone] Caryl Biggs MD 230 [place] [address] Chronic tension-type headache, not intractable Social History [...] [facility] MEDICINE [address] [place] [address] Kalpana Baptiste MD [address] [place] [address] 08/12/2024 11:30 AM EDT Clinical Support [address] [address] Amanda Waldrop RN documented as of this encounter Visit Diagnoses Diagnosis Chronic tension-type headache, not intractable Chronic tension type headache documented in this encounter Additional Health Concerns Assessment Noted Time PHQ-9 Depression Total Score: 0 08/22/19 23 10:06 AM EDT documented as of this encounter Care Teams Shuttle Threader Relationship Specialty Start Date End Date Kalpana Baptiste MD [address] [place] [address] PCP - General Family Medicine 06/14/20 documented as of this encounter
--- OUTSIDE RECORDS SUMMARY | 2024-07-15 15:33 | XMS_ITS | Encounter Summary ---
Author Organization [employer] Address [address] [facility] [address] 7t [place] [address] Care Team Providers Care Armament Installer Name Role Phone Kalpana Baptiste MD Primary Care Provide r Reason for Visit * Reason Comments Med Refill Encounter Details Date Type Department Care Team ([facility] st Contact Info) Description 07/10/2023 Refill [facility] MEDICINE 230 [place], [place] [phone] Caryl Biggs MD 230 [place] [address] Primary osteoarthritis of both knees Social History [...] Description 08/05/2024 1:00 PM EDT Office Visit [facility] MEDICINE [address] [place] [address] Kalpana Baptiste MD [address] [place] [address] 08/12/2024 11:30 AM EDT Clinical Support [address] [address] Amanda Waldrop, NEGAR documented as of this encounter Visit Diagnoses Diagnosis Primary osteoarthritis of both knees documented in this encounter Additional Health Concerns Assessment Noted Time PHQ-9 Depression Total Score: 0 08/22/19 23 10:06 AM EDT documented as of this encounter Care Teams Armament Installer Relationship Specialty Start Date End Date Kalpana Baptiste MD [address] [place] [address] PCP - General Family Medicine 06/14/20 documented as of this encounter
--- OUTSIDE RECORDS SUMMARY | 2024-07-15 15:33 | XMS_ITS | Encounter Summary ---
Author Organization [employer] Address [address] [facility] 7t [place] [address] Care Team Providers Care Ground Worker Name Role Phone Kalpana Baptiste MD Primary Care Provide r Reason for Visit * Reason Comments Med Refill Encounter Details Date Type Department Care Team ([facility] Contact Info) Description 12/13/2022 Refill [facility] MEDICINE [address] [place] [address] [phone] Kalpana Baptiste MD 230 [place], [place] [phone] Primary osteoarthritis of both knees Social History [...] Upcoming Encounters Date Type Department Care Team ([facility] Contact Info) Description 08/05/2024 1:00 PM EDT Office Visit [facility] MEDICINE 230 [place] [address] Kalpana Baptiste MD 230 [place] [address] 08/12/2024 11:30 AM EDT Clinical Support [facility] MEDICINE 230 [place] [address] Amanda Waldrop, RN documented as of this encounter Visit Diagnoses Diagnosis Primary osteoarthritis of both knees documented in this encounter Additional Health Concerns Assessment Noted Time PHQ-9 Depression Total Score: 0 08/22/19 23 10:06 AM EDT documented as of this encounter Care Teams Ground Worker Relationship Specialty Start Date End Date Kalpana Baptiste MD [address] [place] [address] PCP - General Family Medicine 06/14/20 documented as of this encounter
--- OUTSIDE RECORDS SUMMARY | 2024-07-15 15:33 | XMS_ITS | Encounter Summary ---
Author Organization [employer] Address [address] [facility] 7t [place] [address] Care Team Providers Care Central Communications Specialist Name Role Phone Kalpana Baptiste MD Primary Care Provide r Reason for Visit * Reason Comments Med Refill Encounter Details Date Type Department Care Team ([facility] Contact Info) Description 08/15/2022 Refill [facility] MEDICINE [address] [place] [address] [phone] Marilyn Corral MD 230 [place], [place] [phone] Other hyperlipidemia; Allergic rhinitis, unspecified seasonality, unspecified [...] Upcoming Encounters Date Type Department Care Team ([facility] Contact Info) Description 08/05/2024 1:00 PM EDT Office Visit [facility] MEDICINE 230 [place] [address] Kalpana Baptiste MD 230 [place] [address] 08/12/2024 11:30 AM EDT Clinical Support [facility] MEDICINE 230 [place] [address] Amanda Waldrop RN documented as of this encounter Visit Diagnoses Diagnosis Other hyperlipidemia Allergic rhinitis, unspecified seasonality, unspecified trigger Chronic tension-type headache, not intractable Chronic tension type headache Abdominal pain, epigastric documented in this encounter Care Teams Central Communications Specialist Relationship Specialty Start Date End Date Kalpana Baptiste MD 230 [place] [address] PCP - General Family Medicine 06/14/20 documented as of this encounter
--- OUTSIDE RECORDS SUMMARY | 2024-07-15 15:33 | XMS_ITS | Encounter Summary ---
Author Organization [employer] Address [address] [facility] [address] 7t [place] [address] Care Team Providers Care Teasel Setter Name Role Phone Kalpana Baptiste MD Primary Care Provide r Reason for Visit * Reason Comments Med Refill Encounter Details Date Type Department Care Team ([facility] st Contact Info) Description 07/28/2023 Refill [facility] MEDICINE 230 [place], [place] [phone] Kalpana Baptiste MD 230 [place] [address] Moderate persistent asthma without complication; Chronic gout [...] Visit [facility] MEDICINE [address] [place] [address] Kalpana Baptiste MD [address] [place] [address] 08/12/2024 11:30 AM EDT Clinical Support [address] [address] Amanda Waldrop, NEGAR documented as of this encounter Visit Diagnoses Diagnosis Moderate persistent asthma without complication Chronic gout of multiple sites, unspecified cause Primary osteoarthritis of both knees documented in this encounter Additional Health Concerns Assessment Noted Time PHQ-9 Depression Total Score: 0 08/22/19 23 10:06 AM EDT documented as of this encounter Care Teams Teasel Setter Relationship Specialty Start Date End Date Kalpana Baptiste MD [address] [place] [address] PCP - General Family Medicine 06/14/20 documented as of this encounter
--- OUTSIDE RECORDS SUMMARY | 2024-07-15 15:33 | XMS_ITS | Encounter Summary ---
Author Organization [employer] Address [address] [facility] 7t [place] [address] Care Team Providers Care Management Trainee Program Stores Name Role Phone Kalpana Baptiste MD Primary Care Provide r Reason for Visit * Reason Comments Med Refill Encounter Details Date Type Department Care Team (Late Contact Info) Description 12/09/2022 Refill [facility] MEDICINE [address] [place] [address] [phone] Abe Dial AGNP Indigestion; Overactive bladder Social [...] [facility] [address] [place] [address] [phone] Kalpana Baptiste MD 230 [place] [address] 08/12/2024 11:30 AM EDT Clinical Support [facility] MEDICINE 230 [place] [address] Amanda Waldrop RN documented as of this encounter Visit Diagnoses Diagnosis Indigestion Dyspepsia and other specified disorders of function of stomach Overactive bladder Hypertonicity of bladder documented in this encounter Additional Health Concerns Assessment Noted Time PHQ-9 Depression Total Score: 0 08/22/19 23 10:06 AM EDT documented as of this encounter Care Teams Management Trainee Program Stores Relationship Specialty Start Date End Date Kalpana Baptiste MD 230 [place] [address] PCP - General Family Medicine 06/14/20 documented as of this encounter
--- OUTSIDE RECORDS SUMMARY | 2024-07-15 15:33 | XMS_ITS | Encounter Summary ---
Author Organization [employer] Address [address] [facility] 7t [place] [address] Care Team Providers Care Database Engineer Name Role Phone Kalpana Baptiste MD Primary Care Provide r Reason for Visit * Reason Comments Med Refill Encounter Details Date Type Department Care Team ([facility] Contact Info) Description 11/20/[address] [phone] Abe Dial AGNP Overactive bladder Social History [...] 08/05/2024 1:00 PM EDT Office Visit [facility] MEDICINE [address] [place] [address] Kalpana Baptiste MD [address] [place] [address] 08/12/2024 11:30 AM EDT Clinical Support [facility] MEDICINE 230 [place] [address] Amanda Waldrop RN documented as of this encounter Visit Diagnoses Diagnosis Overactive bladder Hypertonicity of bladder documented in this encounter Additional Health Concerns Assessment Noted Time PHQ-9 Depression Total Score: 0 08/22/19 23 10:06 AM EDT documented as of this encounter Care Teams Database Engineer Relationship Specialty Start Date End Date Kalpana Baptiste MD 230 [place] [address] PCP - General Family Medicine 06/14/20 documented as of this encounter
--- OUTSIDE RECORDS SUMMARY | 2024-07-15 15:33 | XMS_ITS | Encounter Summary ---
Author Organization [employer] Address [address] [facility] 7t [place] [address] Care Team Providers Care Urban Planning Teacher Name Role Phone Kalpana Baptiste MD Primary Care Provide r Reason for Visit * Reason Comments Med Refill Encounter Details Date Type Department Care Team ([facility] Contact Info) Description 08/15/2022 Refill [facility] MEDICINE [address] [place] [phone] Kalpana Baptiste MD 230 [place] [address] Primary osteoarthritis of both knees Social History [...] Upcoming Encounters Date Type Department Care Team ([facility] Contact Info) Description 08/05/2024 1:00 PM EDT Office Visit [facility] MEDICINE [address] [place] [address] Kalpana Baptiste MD [address] [place] [address] 08/12/2024 11:30 AM EDT Clinical Support [facility] MEDICINE [address] [place] [address] Amanda Waldrop RN documented as of this encounter Visit Diagnoses Diagnosis Primary osteoarthritis of both knees documented in this encounter Care Teams Urban Planning Teacher Relationship Specialty Start Date End Date Kalpana Baptiste MD [address] [place] [address] PCP - General Family Medicine 06/14/20 documented as of this encounter
--- OUTSIDE RECORDS SUMMARY | 2024-07-15 15:33 | XMS_ITS | Encounter Summary ---
Author Organization [employer] Address [address] [facility] [address] 7t [place] [address] Care Team Providers Care Medical Lab Assistant Name Role Phone Kalpana Baptiste MD Primary Care Provide r Reason for Visit * Reason Comments Med Refill Encounter Details Date Type Department Care Team ([facility] st Contact Info) Description 07/24/2023 Refill [facility] MEDICINE 230 [place], [place] [phone] Kalpana Baptiste MD 230 [place] [address] Moderate persistent asthma without complication; Primary osteoarthritis [...] 08/05/2024 1:00 PM EDT Office Visit [facility] MEDICINE [address] [place] [phone] Kalpana Baptiste MD [address] [place] [address] 08/12/2024 11:30 AM EDT Clinical Support [address] [address] Amanda Waldrop, NEGAR documented as of this encounter Visit Diagnoses Diagnosis Moderate persistent asthma without complication Primary osteoarthritis of both knees Chronic gout of multiple sites, unspecified cause documented in this encounter Additional Health Concerns Assessment Noted Time PHQ-9 Depression Total Score: 0 08/22/19 23 10:06 AM EDT documented as of this encounter Care Teams Medical Lab Assistant Relationship Specialty Start Date End Date Kalpana Baptiste MD [address] [place] [address] PCP - General Family Medicine 06/14/20 documented as of this encounter
--- OUTSIDE RECORDS SUMMARY | 2024-07-15 15:33 | XMS_ITS | Encounter Summary ---
Author Organization [employer] Address [address] [facility] [address] 7t [place] [address] Care Team Providers Care Take Out Waitress Name Role Phone Kalpana Baptiste MD Primary Care Provide r Reason for Visit * Reason Comments Med Refill Encounter Details Date Type Department Care Team ([facility] st Contact Info) Description 09/11/2023 Refill [facility] [address] [place], [place] [phone] Kalpana Baptiste MD 230 [place] [address] Acute otitis media, unspecified otitis media type [...] Description 08/05/2024 1:00 PM EDT Office Visit [facility] [address] [place] [phone] Kalpana Baptiste MD [address] [place] [address] 08/12/2024 11:30 AM EDT Clinical Support [facility] [address] [place] [phone] Amanda Waldrop RN documented as of this encounter Visit Diagnoses Diagnosis Acute otitis media, unspecified otitis media type documented in this encounter Additional Health Concerns Assessment Noted Time PHQ-9 Depression Total Score: 0 08/22/19 23 10:06 AM EDT documented as of this encounter Care Teams Take Out Waitress Relationship Specialty Start Date End Date Kalpana Baptiste MD [address] [place] [phone] PCP - General Family Medicine 06/14/20 documented as of this encounter
--- OUTSIDE RECORDS SUMMARY | 2024-07-15 15:33 | XMS_ITS | Encounter Summary ---
Author Organization [employer] Address [address] [facility] [address] 7t [place] [address] Care Team Providers Care Repair Order Clerk Name Role Phone Kalpana Baptiste MD Primary Care Provide r Reason for Visit * Reason Comments Med Refill Encounter Details Date Type Department Care Team ([facility] st Contact Info) Description 07/24/2023 Refill [facility] MED[facility]INE 230 [place], [place] [phone] Caryl Biggs MD 230 [place] [address] Chronic tension-type headache, not intractable Social History [...] Visit [facility] MEDICINE [address] [place] [address] Kalpana Baptiste MD [address] [place] [address] 08/12/2024 11:30 AM EDT Clinical Support [address] [address] Amanda Waldrop RN documented as of this encounter Visit Diagnoses Diagnosis Chronic tension-type headache, not intractable Chronic tension type headache documented in this encounter Additional Health Concerns Assessment Noted Time PHQ-9 Depression Total Score: 0 08/22/19 23 10:06 AM EDT documented as of this encounter Care Teams Repair Order Clerk Relationship Specialty Start Date End Date Kalpana Baptiste MD [address] [place] [phone] PCP - General Family Medicine 06/14/20 documented as of this encounter
--- OUTSIDE RECORDS SUMMARY | 2024-07-15 15:33 | XMS_ITS | Encounter Summary ---
Author Organization [employer] Address [address] [facility] [address] 7[address] [place] [address] Care Team Providers Care Block Making Machine Operator Name Role Phone Kalpana Baptiste MD Primary Care Provide r Reason for Visit * Reason Comments Med Refill Encounter Details Date Type Department Care Team ([facility] st Contact Info) Description 07/25/2023 Refill [facility]INE 230 [place], [place] [phone] Kalpana Baptiste MD 230 [place] [address] Chronic gout of multiple sites, unspecified cause; [...] Description 08/05/2024 1:00 PM EDT Office Visit [facility] [address] [place] [phone] Kalpana Baptiste MD [address] [place] [address] 08/12/2024 11:30 AM EDT Clinical Support [address] [address] Amanda Waldrop RN documented as of this encounter Visit Diagnoses Diagnosis Chronic gout of multiple sites, unspecified cause Primary osteoarthritis of both knees Moderate persistent asthma without complication documented in this encounter Additional Health Concerns Assessment Noted Time PHQ-9 Depression Total Score: 0 08/22/19 23 10:06 AM EDT documented as of this encounter Care Teams Block Making Machine Operator Relationship Specialty Start Date End Date Kalpana Baptiste MD [address] [place] [phone] PCP - General Family Medicine 06/14/20 documented as of this encounter
--- OUTSIDE RECORDS SUMMARY | 2024-07-15 15:33 | XMS_ITS | Encounter Summary ---
Author Organization [employer] Address [address] [facility] [address] 7t [place] [address] Care Team Providers Care Assistance Representative Name Role Phone Kalpana Baptiste MD Primary Care Provide r Reason for Visit * Reason Comments Med Refill Encounter Details Date Type Department Care Team ([facility] st Contact Info) Description 08/22/2023 Refill [facility] MEDICINE 230 [place], [place] [phone] Kalpana Baptiste MD 230 [place] [address] Primary osteoarthritis of both knees Social History [...] Description 08/05/2024 1:00 PM EDT Office Visit [facility] MEDICINE [address] [place] [phone] Kalpana Baptiste MD [address] [place] [address] 08/12/2024 11:30 AM EDT Clinical Support [facility] MEDICINE [address] [place] [phone] Amanda Waldrop, NEGAR documented as of this encounter Visit Diagnoses Diagnosis Primary osteoarthritis of both knees documented in this encounter Additional Health Concerns Assessment Noted Time PHQ-9 Depression Total Score: 0 08/22/19 23 10:06 AM EDT documented as of this encounter Care Teams Assistance Representative Relationship Specialty Start Date End Date Kalpana Baptiste MD [address] [place] [address] PCP - General Family Medicine 06/14/20 documented as of this encounter
--- OUTSIDE RECORDS SUMMARY | 2024-07-15 15:34 | XMS_ITS | Encounter Summary ---
Author Organization [employer] Address [address] [facility] [address] 7t [place] [address] Care Team Providers Care Building Carpenter Name Role Phone Kalpana Baptiste MD Primary Care Provide r Reason for Visit * Reason Comments Med Refill Encounter Details Date Type Department Care Team ([facility] st Contact Info) Description 02/18/2024 Refill [facility] 230 [place], [place] [phone] Caryl Biggs MD 230 [place] [address] Primary osteoarthritis of both knees Social History [...] Description 08/05/2024 1:00 PM EDT Office Visit [facility] [address] [place] [phone] Kalpana Baptiste MD [address] [place] [address] 08/12/2024 11:30 AM EDT Clinical Support [address] [address] Amanda Waldrop, NEGAR documented as of this encounter Visit Diagnoses Diagnosis Primary osteoarthritis of both knees documented in this encounter Additional Health Concerns Assessment Noted Time PHQ-9 Depression Total Score: 0 08/22/19 23 10:06 AM EDT documented as of this encounter Care Teams Building Carpenter Relationship Specialty Start Date End Date Kalpana Baptiste MD [address] [place] [address] PCP - General Family Medicine 06/14/20 documented as of this encounter
--- OUTSIDE RECORDS SUMMARY | 2024-07-15 15:34 | XMS_ITS | Encounter Summary ---
Author Organization [employer] Address [address] [facility] [address] 7t [place] [address] Care Team Providers Care Visitor Services Associate Name Role Phone Kalpana Baptiste MD Primary Care Provide r Reason for Visit * Reason Comments Med Refill Encounter Details Date Type Department Care Team ([facility] st Contact Info) Description 03/23/2024 Refill [facility] MED[facility] 230 [place], [place] [phone] Kaplana Baptiste MD 230 [place] [address] Primary osteoarthritis of both knees; Type 2 diabetes mellitus with other specified complication, unspecified whether keno terminal operator insulin use ([facility]) Social History Tobacco Use Types Packs/Day Years [...] Description 08/05/2024 1:00 PM EDT Office Visit [facility] MEDICINE [address] [place] [address] Kalpana Baptiste MD [address] [place] [address] 08/12/2024 11:30 AM EDT Clinical Support [facility] MED[facility]INE [address] [place] [phone] Amanda Waldrop RN documented as of this encounter Visit Diagnoses Diagnosis Primary osteoarthritis of both knees Type 2 diabetes mellitus with other specified complication, unspecified whether keno terminal operator insulin use ([facility]) documented in this encounter Additional Health Concerns Assessment Noted Time PHQ-9 Depression Total Score: 0 08/22/19 23 10:06 AM EDT documented as of this encounter Care Teams Visitor Services Associate Relationship Specialty Start Date End Date Kalpana Baptiste MD [address] [place] [address] PCP - General Family Medicine 06/14/20 documented as of this encounter
--- OUTSIDE RECORDS SUMMARY | 2024-07-15 15:34 | XMS_ITS | Encounter Summary ---
Author Organization [employer] Address [address] [facility] [address] 7t [place] [address] Care Team Providers Care Pallet Assembler Name Role Phone Kalpana Baptiste MD Primary Care Provide r Reason for Visit * Reason Comments Med Refill Encounter Details Date Type Department Care Team ([facility] st Contact Info) Description 03/23/2024 Refill [facility] 230 [place], [place] [phone] Kalpana Baptiste MD 230 [place] [address] Type 2 diabetes mellitus with other specified complication, unspecified whether long term care phlebotomist insulin use ([facility]); Primary osteoarthritis of both knees Social [...] Description 08/05/2024 1:00 PM EDT Office Visit [facility] [address] [place] [phone] Kalpana Baptiste MD [address] [place] [address] 08/12/2024 11:30 AM EDT Clinical Support [facility] [address] [place] [phone] Amanda Waldrop RN documented as of this encounter Visit Diagnoses Diagnosis Type 2 diabetes mellitus with other specified complication, unspecified whether long term care phlebotomist insulin use ([facility]) Primary osteoarthritis of both knees documented in this encounter Additional Health Concerns Assessment Noted Time PHQ-9 Depression Total Score: 0 08/22/19 23 10:06 AM EDT documented as of this encounter Care Teams Pallet Assembler Relationship Specialty Start Date End Date Kalpana Baptiste MD [address] [place] [phone] PCP - General Family Medicine 06/14/20 documented as of this encounter
--- OUTSIDE RECORDS SUMMARY | 2024-07-15 15:34 | XMS_ITS | Encounter Summary ---
Author Organization [employer] Address [address] [facility] [address] 7t [place] [address] Care Team Providers Care Computer Systems Administrator Name Role Phone Kalpana Baptiste MD Primary Care Provide r Reason for Visit * Reason Comments Med Refill Encounter Details Date Type Department Care Team ([facility] st Contact Info) Description 02/11/2024 Refill [facility] 230 [place], [place] [phone] Caryl Biggs MD 230 [place] [address] Primary osteoarthritis of both knees Social History [...] EDT Office Visit [facility] [address] [place] [address] Kalpana Baptiste MD [address] [place] [address] 08/12/2024 11:30 AM EDT Clinical Support [address] [address] Amanda Waldrop, NEGAR documented as of this encounter Visit Diagnoses Diagnosis Primary osteoarthritis of both knees documented in this encounter Additional Health Concerns Assessment Noted Time PHQ-9 Depression Total Score: 0 08/22/19 23 10:06 AM EDT documented as of this encounter Care Teams Computer Systems Administrator Relationship Specialty Start Date End Date Kalpana Baptiste MD [address] [place] [address] PCP - General Family Medicine 06/14/20 documented as of this encounter
--- OUTSIDE RECORDS SUMMARY | 2024-07-15 15:34 | XMS_ITS ---
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
--- OUTSIDE RECORDS SUMMARY | 2024-07-15 15:34 | XMS_ITS | Encounter Summary ---
Author Organization [employer] Address 75 [facility] 7t [place] [address] Care Team Providers Care Diesel Dragline Operator Name Role Phone Kalpana Baptiste MD Primary Care Provide r Reason for Visit * Reason Comments Med Refill Encounter Details Date Type Department Care Team ([facility] Contact Info) Description 10/09/2022 Refill [facility] [address] [place] [address] [phone] Marilyn Corral MD 230 [place], [place] [phone] Moderate persistent asthma without complication Social History [...] EDT Office Visit [facility] [address] [place] [address] [phone] Kalpana Baptiste MD 230 [place], [place] [phone] 08/12/2024 11:30 AM EDT Clinical Support [facility] 230 [place] [address] Amanda Waldrop, RN documented as of this encounter Visit Diagnoses Diagnosis Moderate persistent asthma without complication documented in this encounter Additional Health Concerns Assessment Noted Time PHQ-9 Depression Total Score: 0 08/22/19 23 10:06 AM EDT documented as of this encounter Care Teams Diesel Dragline Operator Relationship Specialty Start Date End Date Kalpana Baptiste MD 230 [place] [address] PCP - General Family Medicine 06/14/20 documented as of this encounter
--- OUTSIDE RECORDS SUMMARY | 2024-07-15 15:34 | XMS_ITS | Encounter Summary ---
Author Organization [employer] Address 75 [facility] 7t [place] [address] Care Team Providers Care Senior Data Scientist Name Role Phone Kalpana Baptiste MD Primary Care Provide r Reason for Visit * Reason Comments Med Refill Encounter Details Date Type Department Care Team ([facility] Contact Info) Description 11/13/2022 Refill [facility] MEDICINE [address] [place] [address] [phone] Kalpana Baptiste MD 230 [place], [place] [phone] Primary osteoarthritis of both knees Social History [...] Department Care Team ([facility] Contact Info) Description 08/05/2024 1:00 PM EDT Office Visit [facility] MEDICINE 230 [place] [address] Kalpana Baptiste MD 230 [place] [address] 08/12/2024 11:30 AM EDT Clinical Support [facility] 230 [place] [address] Amanda Waldrop, RN documented as of this encounter Visit Diagnoses Diagnosis Primary osteoarthritis of both knees documented in this encounter Additional Health Concerns Assessment Noted Time PHQ-9 Depression Total Score: 0 08/22/19 23 10:06 AM EDT documented as of this encounter Care Teams Senior Data Scientist Relationship Specialty Start Date End Date Kalpana Baptiste MD [address] [place] [address] PCP - General Family Medicine 06/14/20 documented as of this encounter
--- OUTSIDE RECORDS SUMMARY | 2024-07-15 15:34 | XMS_ITS | Encounter Summary ---
Author Organization [employer] Address [address] [facility] [address] 7t [place] [address] Care Team Providers Care Tank Bottom Assembler Name Role Phone Kalpana Baptiste MD Primary Care Provide r Encounter Details Date Type Department Care Team ([facility] st Contact Info) Description 02/12/2023 Abstract [facility] MEDICINE 230 [place] [address] Therese Brown Social History Tobacco Use Types [...] Office Visit [facility] MEDICINE [address] [place] [phone] Kalpana Baptiste MD [address] [place] [address] [phone] 08/12/2024 11:30 AM EDT Clinical Support [address] [address] Amanda Waldrop RN documented as [...] documented as of this encounter Care Teams Tank Bottom Assembler Relationship Specialty Start Date End Date Kalpana Baptiste MD [address] [place] [phone] PCP - General Family Medicine 06/14/20 documented as of this encounter
--- OUTSIDE RECORDS SUMMARY | 2024-07-15 15:34 | XMS_ITS | Data Portability ---
Author Organization [place] [facility] Address [address] [facility] [address] [place] [address] Assessment Encounter Date Assessment Date Assessment LastModified [...] 0.1 % eye drops,suspe nsion 2024 025 [facility][id number], [address] [facility], [place], [address], 5 10:13:58 Patient TargetsNo targets recorded. Patient [...] Recorded Time Disorder of left Eustachian tube 2764222019772 109 Active 2024 VANE NGUYENSWATICURT, AUD [address] [facility],[place] [address], [place], [phone], 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 5 09:42:07 Granulation s on tympanic membrane 138464490 Active 2024 ANKUSH CARRION MD [address] [place] [address],[place] [address], [place], [phone], [facility] 10:13:26 Problem Notes None recorded. Procedures Surgical History Date Name Laterality Status Provider Name and Address Organization Details Recorded Time 06/07/2024 Comp Audio with Tymps (43707 & 61533) completed VANE NGUYENSHAHID, MNO[place] [address] [facility],[address], [phone], [facility] 06/07/2024 09:35:44 Imaging Results Imaging Date Name Status LastModified by Organiz ation Details LastModified Time 06/07/2024 audiogram completed [facility] Information no t available 06/07/2024 13:28:12 Procedure Notes None recorded. Medical Equipment None Reported. Allergies Allergen ID Allergen Name Allergen Category Reaction Reaction Severity Criticality Documentation Date Start Date Code Code System Note Provider Name and Address Organization Details Recorded Time 397349 aspirin medicatio n Not available Not available Not available 06/07/2024 1191 RxNorm Suzette mathew [place] [facility] 09:58:34 822776 Product containin g penicilli n (product) medicatio n Not available Not available Not available 06/07/2024 07563 8001 SNOMED Suzette mathew [place] [facility] 09:58:43 Medications Name Sig Start Date [...] Not Available Not Available No t Available ReelGenie Lindstrom Lite kit USE TEST BLOOD SUGAR TWICE [...] Updated DateTime 06/07/2024 170.18 cm 37.3 kg/m2 512983.98 g Suzette Dunlap [place] - [facility] 06/07/2024 09:58:20 Social History None recorded. [...] SNOMED-CT Code Diagnosis ICD10 Code Diagnosis Note [id number] ANKUSH CARRION MD [facility] [address] [phone] 06/07/2024 09:23:18 06/07/2024 10:19:54 Disorder of left Eustachian tube 9677645934 466977 H69.92 Right Ear:Mild SNHL with good speech discrimina tion.Type A tympanogra m.Left Ear:Mild to severe MHL with good speech discrimina tion.Type B tympanogra m. Mixed cond uctive and sensorineural hearing loss of left ear [id number] 9107 H90.A32 Granulatio ns on tympanic membrane 842033961 H73.899 Health Concerns Section Related Observation LastModified by Organization Detai ls LastModified Time None Recorded Concern Status LastModified by Organization Details LastModified Time None Recorded Advance Directives Directive None Recorded Payers Encounter Date Sequence Insurance Name Policy Number Policy [place] Covered Member ID [place] Member ID Guarantor Name 06/07/2024 1 [place] [facility] Santaclaudio Denis [id number] [place] Notes Date Note Type Note [...] no sinus infections lately ANKUSH CARRION MD [address] [place] [address], [phone], [facility] 06/17/2024 09:20:04 OBGyn Episode No OBEpisode recorded.
--- OUTSIDE RECORDS SUMMARY | 2024-07-15 15:34 | XMS_ITS | Referral Summary ---
Author Organization [facility] Address [address] [place] [address] Care Team Providers Care Dog Or Horse Racing Official Name Role Phone Kalpana Baptiste MD Primary [...] 03/29/2015 Acute pharyngitis 12/29/2013 Cough 06/16/2013 Chronic miwhu-ncrrwi-zfdd disease 05/19/2013 Headache 03/24/2013 Dysuria 12/30/2012 Abdominal [...] Info) Description 08/04/2024 12:00 PM EDT Lab [facility] ACC Draw Site Fifth Floor [address] [place] [address] 08/04/2024 1:00 PM EDT Follow-Up [facility] Building B[facility] [address] [place] [address] Vivek Bernal MD PhD [address] [place] [address] Procedures * Due to [place] state law, this organization might not be sharing negative HIV tests. Procedure Name Priority Date/Time Associated Diagnosis Comments CBC AUTO DIFFERENTIAL STAT 02/04/2024 10:26 AM EDT Chronic azewi-nmomot-luqb disease (HCC) COMPREHENSIVE METABOLIC PANEL STAT 02/04/2024 10:26 AM EDT Chronic hdfmx-yevexa-wgrw disease (HCC) HEMOGLOBIN A1C Routine 08/11/2017 10:41 [...] to Health Maintenance Results * Due to [place] state law, this organization might not be sharing negative HIV tests. * (ABNORMAL) CBC Auto Differential (02/04/2024 10:26 AM EDT) WBC 4.6 3.8 - 10.8 10*3/uL 02/04/2024 10:53 AM EDT [facility] RBC 3.40(L) 3.80 - 5.10 10*6/uL 02/04/2024 10:53 AM EDT [facility] Hemoglobin 9.8(L) 11.7 - 15.5 g/dL 02/04/2024 10:53 AM EDT [facility] Hematocrit 30.3(L) 35.0 - 45.0 % 02/04/2024 10:53 AM EDT [facility] MCV 89.1 80.0 - 100.0 fL 02/04/2024 10:53 AM EDT [facility] MCH 28.8 27.0 - 33.0 pg 02/04/2024 10:53 AM EDT [facility] MCHC 32.3 32.0 - 36.0 g/dL 02/04/2024 10:53 AM EDT [facility] RDW 13.2 11.0 - 15.0 % 02/04/2024 10:53 AM EDT [facility] Platelets 241 140 - 400 10*3/uL 02/04/2024 10:53 AM EDT [facility] MPV 9.2 7.5 - 12.5 fL 02/04/2024 10:53 AM EDT [facility] Neutrophil % 44.4 % 02/04/2024 10:53 AM EDT [facility] Immature Grans % 0.9 0.0 - 0.9 % 02/04/2024 10:53 AM EDT [facility] Lymphocyte % 43.4 % 02/04/2024 10:53 AM EDT [facility] Monocyte % 10.2 % 02/04/2024 10:53 AM EDT [facility] Eosinophil % 0.9 % 02/04/2024 10:53 AM EDT [facility] Basophil % 0.2 % 02/04/2024 10:53 AM EDT [facility] Neutrophil # 2.06 1.50 - 7.80 10*3/uL 02/04/2024 10:53 AM EDT [facility] Immature Grans # 0.04(H) <=0.03 10*3/uL 02/04/2024 10:53 AM EDT [facility] Lymphocyte # 2.00 0.85 - 3.90 10*3/uL 02/04/2024 10:53 AM EDT [facility] Monocyte # 0.50 0.20 - 0.95 10*3/uL 02/04/2024 10:53 AM EDT [facility] Eosinophil # <0.03 0.02 - 0.50 10*3/uL 02/04/2024 10:53 AM EDT [facility] Basophil # <0.03 0.00 - 0.20 10*3/uL 02/04/2024 10:53 AM EDT [facility] nRBC % 0.0 /100 WBCs 02/04/2024 10:53 AM EDT [facility] nRBC # <0.01 <0.01 10*3/uL 02/04/2024 10:53 AM EDT [facility] Total Neutrophil #, Preliminary 2.06 1.50 - 7.80 10*3/uL 02/04/2024 10:53 AM EDT [facility] Blood Structure of peripheral vein / Unknown Venipuncture / Unknown 02/04/2024 10:26 AM EDT 02/04/2024 10:43 AM EDT us Aylin MORROW LAB BLOOD ORDERABLES Gabi l Result [facility] [address] [place] [address], * (ABNORMAL) Comprehensive Metabolic Panel (02/04/2024 10:26 AM EDT) NA 142 135 - 145 mmol/L 02/04/2024 11:17 AM EDT [facility] K 4.0 3.5 - 5.3 mmol/L 02/04/2024 11:17 AM EDT [facility] Cl 105 98 - 107 mmol/L 02/04/2024 11:17 AM EDT [facility] CO2 24 22 - 32 mmol/L 02/04/2024 11:17 AM EDT [facility] Anion Gap 13 5 - 15 02/04/2024 11:17 AM EDT [facility] Glucose 110(H) 65 - 99 mg/dL 02/04/2024 11:17 AM EDT [facility] Creatinine 1.57(H) 0.50 - 1.20 mg/dL 02/04/2024 11:17 AM EDT [facility] Calcium 8.5(L) 8.6 - 10.5 mg/dL 02/04/2024 11:17 AM EDT [facility] Total Protein 7.2 6.0 - 8.0 g/dL 02/04/2024 11:17 AM EDT [facility] Albumin 4.5 3.5 - 5.2 g/dL 02/04/2024 11:17 AM T [facility] Bilirubin, Total 0.3 0.2 - 1.2 mg/dL 02/04/2024 11:17 AM [facility] Alkaline Phosphatase 71 35 - 129 U/L 02/04/2024 11:17 AM EDT [facility] AST 37 10 - 40 U/L 02/04/2024 11:17 AM [facility] ALT 43(H) 10 - 40 U/L 02/04/2024 11:17 AM [facility] BUN 19 7 - 23 mg/dL 02/04/2024 11:17 AM [facility] eGFR 38(L) >=60 mL/min/1 .73m2 02/04/2024 11:17 AM [facility] Comment:The estimated glomer ular [...] 4.2 g/dL 02/04/2024 11:17 AM [facility] A/G Ratio 1.7 1.5 - 3.0 02/04/2024 11:17 AM [facility]ITALWell[facility] Blood Structure of peripheral vein / Unknown Venipuncture / Unknown 02/04/2024 10:26 AM EDT 02/04/2024 10:43 AM EDT us Aylin MORROW LAB BLOOD ORDERABLES Gabi l Result [facility] [address] [place] [address], * (ABNORMAL) Vitamin D, 25-Hydroxy, Total, Immunoassay (08/11/2017 10:41 AM EDT) Calcidiol+ercalc idiol 24(L) 30 - 100 ng/mL 08/11/2017 7:50 PM EDT [facility] Comment: Vitamin D Status ? 25-OH Vitamin D: Deficiency: ?<20 ng/mL Insufficiency: ? 20 - 29 ng/mL Optimal: ? > or = 30 ng/mL For 25-OH Vitamin D testing on patients on D2-supplementation and patients for whom quantitation of D2 and D3 fractions is required, the QuestAssureD(TM) 25-OH VIT D, (D2,D3), LC/MS/MS is recommended: order code 37509 (patients >2yrs). For more information on this test, go to: http://education.[employer]/faq/ETJ869 (This link is being provided for informational/educational purposes only.) Blood specimen (specimen) Structure of peripheral vein / Unknown Venipuncture / Unknown 08/11/2017 10:41 AM EDT 08/11/2017 10:57 AM EDT Narrative [facility] - 08/11/2017 7:50 PM EDT [facility] Received Date: Aylin MORROW LAB BLOOD ORDERABLES Gabi l Result [facility] [address] [facility] [address], [place] [address], [place] [phone] [employer] [facility] [address] [facility] [address] Floor, [place] [address], [place] [phone] * (ABNORMAL) Hemoglobin A1c (08/11/2017 10:41 AM EDT) Hemoglobin A1C 5.8(H) <5.7 % of total Hgb 08/11/2017 7:12 PM EDT [facility] Comment: For someone without known diabetes, a [...] (MG/DL) 120 (calc) 08/11/2017 7:12 PM EDT [facility] eAG (MMOL/L) 6.6 (calc) 08/11/2017 7:12 PM EDT [facility] Blood specimen (specimen) Structure of peripheral vein / Unknown Venipuncture / Unknown 08/11/2017 10:41 AM EDT 08/11/2017 10:57 AM EDT Mariajose [facility] - 08/11/2017 7:12 PM EDT [employer] Received Date: Aylin MORROW LAB BLOOD ORDERABLES Gabi l Result [facility] [address] [facility] [address]rd [address], [place] [address], [facility] [address] [facility] [address], [place] [address], * HEPATITIS C ANTIBODY, CONVERSION (08/09/2013 3:20 PM EDT) Pathologist [facility] Hepatitis C Antibody 0.06 <1.00 [facility] HCV Interpretation Negative [facility] Comment: Not infected with HCV, unless recent infection is suspected or other evidence exists to indicate HCV infection. 08/09/2013 3:20 PM EDT 08/09/2013 4:45 PM EDT us Vivek Bernal MD PhD LAB HISTORICAL RESULTS Final Re sult Performing Organization Address [facility] Co de Phone Number [facility] [address] [place] [address], [place] * HIV-1/2 Antigen/Antibodies 4th Generation w/Reflex (08/09/2013 3:20 PM EDT) HIV 1,2 Ab/Ag Stat NEGATIVE NEGATIVE [facility] 08/09/2013 3:20 PM EDT 08/09/2013 4:45 PM EDT us Vivek Bernal MD PhD LAB BLOOD ORDERABLES Final Resu lt Performing Organization Address [facility] de Phone Number [facility] [address] [place] [address], [place] * Phosphorus (10/08/2012 3:00 AM EDT) Phosphorus Blood 3.6 2.5 - 4.5 mg/dL [facility] 10/08/2012 3:00 AM EDT 10/08/2012 4:14 AM EDT us Neida Sotelo LAB BLOOD ORDERABLES Final Re sult Performing Organization Address [facility] de Phone Number [facility] [address] [place] [address], [place] * CT Chest W Contrast (08/12/2012 [...] Most Recently Relevant to Health Maintenance Insurance [facility] Advance Directives Documents on File Type Date Recorded Patient Casting Carrier Expl anation Advance Directive 08/27/2012 12:00 AM Adva nce Care Directives Advance Directive 08/27/2012 12:00 AM Adva nce Care Directives Advance Directive 07/22/2012 12:00 AM emre [email or web address] Dec Making (Adv.Dir) Care Teams Dog Or Horse Racing Official Relationship Specialty Start Date End Date Kalpana Baptiste MD [address] [place] [phone] PCP - General 11/22/20
--- OUTSIDE RECORDS SUMMARY | 2024-07-15 15:34 | XMS_ITS | Encounter Summary ---
Author Organization [employer] Address [address] [place] [address] Care Team Providers Care Crew Foreman Name Role Phone Kalpana Baptiste MD Primary Care Provide r Reason for Visit * Reason Comments Med Refill Encounter Details Date Type Department Care Team ([facility] st Contact Info) Description 05/13/2024 Refill [facility] [address] [place], [place] [phone] Kalpana Baptiste MD [address] [place] [address] Heartburn Social History Tobacco Use Types Packs/Day [...] EDT Office Visit [facility] [address] [place] [phone] Kalpana Baptiste MD [address] [place] [phone] 08/12/2024 11:30 AM EDT Clinical Support [address] [address] Amanda Waldrop, NEGAR documented as of this encounter Visit Diagnoses Diagnosis Heartburn documented in this encounter Additional Health Concerns Assessment Noted Time PHQ-9 Depression Total Score: 0 05/06/19 25 2:15 PM EST documented as of this encounter Care Teams Crew Foreman Relationship Specialty Start Date End Date Kalpana Baptiste MD [address] [place] [phone] PCP - General Family Medicine 06/14/20 documented as of this encounter
--- OUTSIDE RECORDS SUMMARY | 2024-07-15 15:34 | XMS_ITS | Encounter Summary ---
Author Organization [employer] Address [address] [place] [address] Care Team Providers Care Field Trainer Name Role Phone Kalpana Baptiste MD Primary Care Provide r Reason for Visit * Reason Comments Med Refill Encounter Details Date Type Department Care Team ([facility] st Contact Info) Description 02/02/2024 Refill [facility] [address] [place], [place] [phone] Caryl Biggs MD [address] [place] [address] Primary osteoarthritis of both knees Social History [...] Description 08/05/2024 1:00 PM EDT Office Visit [facility] [address] [place] [phone] Kalpana Baptiste MD [address] [place] [phone] 08/12/2024 11:30 AM EDT Clinical Support [address] [address] Amanda Waldrop, NEGAR documented as of this encounter Visit Diagnoses Diagnosis Primary osteoarthritis of both knees documented in this encounter Additional Health Concerns Assessment Noted Time PHQ-9 Depression Total Score: 0 08/22/19 23 10:06 AM EDT documented as of this encounter Care Teams Field Trainer Relationship Specialty Start Date End Date Kalpana Baptiste MD [address] [place] [phone] PCP - General Family Medicine 06/14/20 documented as of this encounter
--- OUTSIDE RECORDS SUMMARY | 2024-07-15 15:34 | XMS_ITS | Encounter Summary ---
Author Organization [employer] Address [address] [facility] 7t [place] [address] Care Team Providers Care Donor Relations Manager Name Role Phone Kalpana Baptiste MD Primary Care Provide r Reason for Visit * Reason Comments Med Refill Encounter Details Date Type Department Care Team ([facility] st Contact Info) Description 01/28/2024 Refill [facility] [address] [place], [place] [phone] Caryl Biggs MD [address] [place] [address] Primary osteoarthritis of both knees Social History [...] EDT Office Visit [facility] [address] [place] [phone] Kalpana Baptiste MD [address] [place] [phone] 08/12/2024 11:30 AM EDT Clinical Support [address] [address] Amanda Waldrop, NEGAR documented as of this encounter Visit Diagnoses Diagnosis Primary osteoarthritis of both knees documented in this encounter Additional Health Concerns Assessment Noted Time PHQ-9 Depression Total Score: 0 08/22/19 23 10:06 AM EDT documented as of this encounter Care Teams Donor Relations Manager Relationship Specialty Start Date End Date Kalpana Baptiste MD [address] [place] [phone] PCP - General Family Medicine 06/14/20 documented as of this encounter
--- OUTSIDE RECORDS SUMMARY | 2024-07-15 15:34 | XMS_ITS | Encounter Summary ---
Author Organization [employer] Address [address] [place] [address] Care Team Providers Care Finish Repairer Name Role Phone Kalpana Baptiste MD Primary Care Provide r Reason for Visit * Reason Comments Med Refill Encounter Details Date Type Department Care Team ([facility] st Contact Info) Description 02/09/2024 Refill [facility] [address] [place], [place] [phone] Caryl Biggs MD [address] [place] [address] Primary osteoarthritis of both knees Social History [...] EDT Office Visit [facility] [address] [place] [phone] Kalpana Baptiste MD [address] [place] [phone] 08/12/2024 11:30 AM EDT Clinical Support [address] [address] Amanda Waldrop, NGEAR documented as of this encounter Visit Diagnoses Diagnosis Primary osteoarthritis of both knees documented in this encounter Additional Health Concerns Assessment Noted Time PHQ-9 Depression Total Score: 0 08/22/19 23 10:06 AM EDT documented as of this encounter Care Teams Finish Repairer Relationship Specialty Start Date End Date Kalpana Baptiste MD [address] [place] [phone] PCP - General Family Medicine 06/14/20 documented as of this encounter
--- OUTSIDE RECORDS SUMMARY | 2024-07-15 15:34 | XMS_ITS | Clinical Summary ---
Author Organization [facility] Address [address] [place] [address] [place] [phone] Phone Care Team Providers Care Signal And Communications Maintainer Name Role Phone Kalpana Baptiste MD Primary [...] Office Visit [facility] [address] [place] [address] [place] [phone] Eben Us MD Stage 3b chronic kidney disease (HCC) (Primary Dx); Renal disorder due to type 2 diabetes mellitus <Diabetic nephropathy> (HCC); Persistent proteinuria; Essential hypertension 05/10/2024 Documentation Only [facility] [address] [phone] Eben Us MD from Last 3 Months [...] Visit [facility] [address] [phone] Eben Us MD [address] [phone] Health Maintenance Due Date Last Done Comments [...] 02/04/2024, , 02/20/2021, Additional history exists Procedures Procedure Name Priority Date/Time Associated Diagnosis Comments ALBUMIN, URINE, RANDOM Routine 07/15/2024 12:47 PM EDT PROTEIN / CREATININE RATIO, URINE Today 07/15/2024 12:47 PM EDT Stage 3b chronic kidney disease (HCC) Renal disorder due to type 2 diabetes mellitus <Diabetic nephropathy> (HCC) Persistent proteinuria Essential hypertension URINALYSIS WITH MICROSCOPIC Today 07/15/2024 12:47 PM EDT Stage 3b chronic kidney disease (HCC) Renal disorder due to type 2 diabetes mellitus <Diabetic nephropathy> (HCC) Persistent proteinuria Essential hypertension PTH, INTACT (HC) Routine 07/15/2024 12:2 8 PM EDT CREATININE, BLOOD Routine 07/15/2024 12: 28 PM EDT BUN Routine 07/15/2024 12:28 PM EDT ELECTROLYTE PANEL Routine 07/15/2024 12: 28 PM EDT CBC AND DIFFERENTIAL Routine 07/15/2024 12:28 PM EDT CALCIUM Today 07/15/2024 12:28 PM EDT Stage 3b chronic kidney disease (HCC) Renal disorder due to type 2 diabetes mellitus <Diabetic nephropathy> (HCC) Persistent proteinuria Essential hypertension ALBUMIN Today 07/15/2024 12:28 PM EDT Stage 3b chronic kidney disease (HCC) Renal disorder due to type 2 diabetes mellitus <Diabetic nephropathy> (HCC) Persistent proteinuria Essential hypertension MAGNESIUM Today 07/15/2024 12:28 PM EDT Stage 3b chronic kidney disease (HCC) Renal disorder due to type 2 diabetes mellitus <Diabetic nephropathy> (HCC) Persistent proteinuria Essential hypertension VITAMIN D 25 HYDROXY Today 07/15/2024 12:28 PM EDT Stage 3b chronic kidney disease (HCC) Renal disorder due to type 2 diabetes mellitus <Diabetic nephropathy> (HCC) Persistent proteinuria Essential hypertension from Last 3 Months Results * (ABNORMAL) Protein, Total, Random Urine w/Creatinine (Protein/Creat Ratio) (07/15/2024 12:47 PM EDT) Protein Urine Random 194(H) <12 mg/dL See order comments Protein/Creati nine Ratio, Urine 1.25(H) <0.2 See order comments Comment: The spot urine protein:creatinine ratio may increase to 0.3 during normal . Urine (Urine, Clean Catch) 07/15/2024 12:47 PM EDT 07/15/2024 12:47 PM EDT us Eben Us MD LAB URINE ORDERABLES Final Re sult [place] See order comments [place] [address] * (ABNORMAL) Albumin, urine, random (07/15/2024 12:47 PM EDT) Creatinine, Urine 155.09 mg/dL Se e order comments Urine Microalbumin 1,483.0 mg/L See order comments Microalbumin/Crea tinine Ratio 956.2(H) <30 ug/mg cr See order comments Comment: ?Albumin/Creatinine Ratio Reference Ranges: ?Normal: < 30 ug/mg creatinine ?Microalbuminuria: ??30 - 300 ug/mg creatinine Clinical Albuminuria: ??> 300 ug/mg creatinine 07/15/2024 12:4 7 PM EDT 07/15/2024 12:47 PM EDT Eben Us MD LAB URINE ORDERABLES Final Re sult Performing Organization Address [facility] de Phone Number [place] See order comments [place] [address] * (ABNORMAL) Urinalysis with microscopic (07/15/2024 12:47 PM EDT) Color Urine Yellow See orde r comments Appearance Urine Clear See order comments pH Urine 5.0 5.0 - 9.0 See order comments Glucose Urine Negative Negative mg/dL See order comments Blood, Urine Small (1+)(A) Negative See order comments Specific Christoval Urine 1.015 1.005 - 1.025 See order comments Protein Urine 300 (3+)(A) Neg-Trace mg/dL See order comments Ketones, Urine Negative Negative mg/dL See order comments Nitrite, Urine Negative Negative See o rder comments Leukocyte Esterase Urine Negative Negative See order comments RBC, Urine 0-2 0 - 2 /HPF See orde r comments WBC 0-5 0 - 5 /HPF See order comments Squamous Epithelial, Urine 3-5 0 - 2 /HPF See order comments Bacteria, Urine None Seen None Seen See order comments Hyaline Casts, Urine 6-10 0 - 2 /LPF See order comments Urine (Urine, Clean Catch) 07/15/2024 12:47 PM EDT 07/15/2024 12:47 PM EDT Eben Us MD LAB URINE ORDERABLES Edited R esult - Final Performing Organization Address [facility] de Phone Number [place] See order comments [place] [address] * (ABNORMAL) Creatinine (07/15/2024 12:28 PM EDT) Creatinine Serum 1.76(H) 0.5 - 1.4 mg/dL See order comments eGFR 29 See order comments Comment: Chronic Kidney Disease: ??Estimated GFR < 60 mL/min/1.73m2 Severe Kidney Disease: ??Estimated GFR < 15 mL/min/1.73m2 07/15/2024 12:2 8 PM EDT 07/15/2024 12:28 PM EDT Eben Us MD LAB BLOOD ORDERABLES Final Re sult Performing Organization Address [facility] Co de Phone Number [place] See order comments [place] [address] * (ABNORMAL) PTH, Intact (07/15/2024 12:28 PM EDT) Parathyroid Hormone, Intact 117.4(H) 8.7 - 77.1 pg/mL See order comments 07/15/2024 12:2 8 PM EDT 07/15/2024 12:28 PM EDT Eben Us MD LAB [id number] SOLICITED RESULTS Final Result Performing Organization Address [facility] de Phone Number [place] See order comments [place] [address] * (ABNORMAL) Vitamin D 25 Hydroxy (07/15/2024 12:28 PM EDT) Vitamin D, 25-Hydroxy 29.3(L) >30 ng/mL See order comments Comment: Health Based Reference Values* < 20 ??ng/mL ??Deficient 20-30 ng/mL ??Insufficient > 30 ??ng/mL ??Sufficient *Enoc [place]. N Engl J Med. 2007;357:266-280 There is no well-established upper level of normal vitamin D levels. Some laboratories use 50 ng/mL as an upper limit of normal. However, toxicity is patient-dependent and may occur at any level. Careful correlation with the patient's presentation is necessary and, if there is concern for vitamin D toxicity, treatment should be considered irrespective of the serum level. Care must be taken in interpreting Vitamin D results from different laboratories and methodologies. ??Published data demonstrated that results from patients undergoing hemodialysis may show a negative bias when tested with various automated 25-OH vitamin D assays when compared to LC-MS/MS. When testing samples from patients whose predominant form of Vitamin D is Vitamin D2, such as patients receiving Vitamin D2 supplementation, results that are subtherapeutic should be confirmed with another method such as LC-MS/MS. Blood (Blood, Venous) 07/15/2024 12:28 PM EDT 07/15/2024 12:28 PM EDT us Eben Us MD LAB BLOOD ORDERABLES Final Re sult [place] See order comments [place] [address] * (ABNORMAL) CBC and Differential (07/15/2024 12:28 PM EDT) WBC 4.3(L) 4.8 - 10.8 X10*3/uL See order comments RBC 3.43(L) 4.20 - 5.50 X10*6/uL See order comments Hgb 10.1(L) 12.0 - 16.0 g/dl See order comments Hematocrit 29.6(L) 37.0 - 47.0 % See order comments MCV 86.3 80.0 - 98.0 fL See order comments MCH 29.4 27.0 - 33.0 pg See order comments MCHC 34.1 31.0 - 35.0 g/dl See order comments RDW 13.6 11.0 - 16.0 % See order comments Platelets 251 160 - 400 X10*3/uL See order comments MPV 9.2(L) 9.4 - 12.3 fL See order comments Neutrophils % Auto 43.7(L) 45 - 73 % See order comments Immature Granulocytes 0.7(H) 0.0 - 0.4 % See order comments Lymphocytes Relative 45.0(H) 20 - 40 % See order comments Monocytes 9.0 2 - 11 % See order comments Eosinophils Relative 1.4 0 - 4 % See order comments Basophils Relative 0.2 0 - 2 % See order comments nRBC Count 0.0 0.0 - 0.2 /100WBC See order comments Neutrophils Absolute 1.9(L) 2.0 - 8.3 x10*3/uL See order comments Immature Grans (Absolute) 0.03 0.00 - 0.03 X10*3/uL See order comments Lymphocytes Absolute 1.9 1.2 - 4.9 X10*3/uL See order comments Monocytes Absolute 0.4 0.1 - 1.2 X10*3/uL See order comments Eosinophils Absolute 0.1 0.0 - 0.4 X10*3/uL See order comments Basophils Absolute 0.0 0.0 - 0.2 X10*3/uL See order comments NRBC Absolute 0.000 0.0 - 0.012 X10*3/uL See order comments 07/15/2024 12:2 8 PM EDT 07/15/2024 12:28 PM EDT us Eben Us MD LAB BLOOD ORDERABLES Final Re sult Performing Organization Address [facility] de Phone Number [place] See order comments [place] [address] * (ABNORMAL) BUN (07/15/2024 12:28 PM EDT) BUN 22(H) 9 - 16 mg/dL See order comments 07/15/2024 12:2 8 PM EDT 07/15/2024 12:28 PM EDT us Eben Us MD LAB BLOOD ORDERABLES Final Re sult Performing Organization Address [facility] de Phone Number [place] See order comments [place] [address] * Magnesium (07/15/2024 12:28 PM EDT) Magnesium 1.7 1.6 - 2.6 mg/dL See order comments Blood (Blood, Venous) 07/15/2024 12:28 PM EDT 07/15/2024 12:28 PM EDT us Eben Us MD LAB BLOOD ORDERABLES Final Re sult Performing Organization Address [facility] de Phone Number [place] See order comments [place] [address] * Calcium (07/15/2024 12:28 PM EDT) Calcium 9.0 8.4 - 10.2 mg/dL See order comments Blood (Blood, Venous) 07/15/2024 12:28 PM EDT 07/15/2024 12:28 PM EDT Eben Us MD LAB BLOOD ORDERABLES Final Re sult Performing Organization Address [facility] Co de Phone Number [place] See order comments [place] [address] * Albumin (07/15/2024 12:28 PM EDT) Albumin 4.3 3.5 - 5.0 g/dL See order comments Blood (Blood, Venous) 07/15/2024 12:28 PM EDT 07/15/2024 12:28 PM EDT Eben Us MD LAB BLOOD ORDERABLES Final Re sult Performing Organization Address [facility] Phone Number [place] See order comments [place] [address] * (ABNORMAL) Electrolyte panel (07/15/2024 12:28 PM EDT) Sodium 145 135 - 145 mmol/L See order comments Potassium 4.2 3.3 - 5.1 mmol/L See order comments Chloride 112(H) 96 - 108 mmol/L See order comments Bicarbonate (CO2) 22 22 - 29 mmol/L See order comments Anion Gap 15 12 - 20 See order comments 07/15/2024 12:2 8 PM EDT 07/15/2024 12:28 PM EDT us Eben Us MD LAB BLOOD ORDERABLES Final Re sult Performing Organization Address [facility] Co de Phone Number [place] See order comments [place] [address] from Last 3 Months [place] Care Teams Signal And Communications Maintainer Relationship Specialty Start Date End Date Kalpana Baptiste MD [address] [place] [phone] PCP - General Internal Medicine 07/03/21
--- OUTSIDE RECORDS SUMMARY | 2024-07-15 15:34 | XMS_ITS | Encounter Summary ---
Author Organization [employer] Address [address] [place] [address] Care Team Providers Care Tax Examining Technician Name Role Phone Kalpana Baptiste MD Primary Care Provide r Reason for Visit * Reason Comments Med Refill Encounter Details Date Type Department Care Team ([facility] Contact Info) Description 10/04/2022 Refill [facility] [address] [place] [address] [phone] Marilyn Corral MD [address] [place], [place] [phone] Moderate persistent asthma without complication Social History [...] Upcoming Encounters Date Type Department Care Team ([facility] Contact Info) Description 08/05/2024 1:00 PM EDT Office Visit [facility] [address] [place] [address] [phone] Kalpana Baptiste MD [address] [place], [place] [phone] 08/12/2024 11:30 AM EDT Clinical Support [facility] [address] [place] [address] Amanda Waldrop, RN documented as of this encounter Visit Diagnoses Diagnosis Moderate persistent asthma without complication documented in this encounter Additional Health Concerns Assessment Noted Time PHQ-9 Depression Total Score: 0 08/22/19 23 10:06 AM EDT documented as of this encounter Care Teams Tax Examining Technician Relationship Specialty Start Date End Date Kalpana Baptiste MD [address] [place] [address] PCP - General Family Medicine 06/14/20 documented as of this encounter
--- OUTSIDE RECORDS SUMMARY | 2024-07-15 15:34 | XMS_ITS | Encounter Summary ---
Author Organization [facility] Address [address] [place] [address] Care Team Providers Care Tree Scout Name Role Phone Kalpana Baptiste MD Primary [...] AMB Referral to Podiatry Kalpana Baptiste MD [address] [place] [phone] Phone: tel: fax: Lee Delaney DPM [address] [address] Phone: tel: fax: Referral ID Status Reason Start Date Expiration Date V isits Requested Visits Authorized [id number] Closed Consult and Treat 03/04/2024 03/04/2025 6 6 Encounter Details Date Type Department Care Team ([facility] Contact Info) Description 06/15/2024 2:45 PM EST Office Visit Orthopedic Surgery - [place] [address] [phone] Lee Delaney DPM [address] [phone] Metatarsalgia of both feet (Primary Dx); Pain [...] Problem List Diagnosis JUSTINO (acute kidney injury) ([facility]) SOCIAL HISTORY: Social History Tobacco Use Smoking [...] of neuropathy with the patient Clotrimazole recommended [id number] options were given Pt to return for [...] AM EDT Office Visit [facility] - [place] [address] [phone] Lee Delaney DPM [address] [address] documented as of this encounter Visit Diagnoses [...] documented as of this encounter Care Teams Tree Scout Relationship Specialty Start Date End Date Kalpana Baptiste MD [address] [phone] PCP - General Internal Medicine 05/18/24 documented as of this encounter
--- OUTSIDE RECORDS SUMMARY | 2024-07-15 15:34 | XMS_ITS | Clinical Summary ---
Author Organization [facility] Address [address] [place] [address] Care Team Providers Care Wage Hand Name Role Phone Kalpana Baptiste MD Primary [...] 03/29/2015 Acute pharyngitis 12/29/2013 Cough 06/16/2013 Chronic olwcw-gdbtvf-wxoh disease 05/19/2013 Headache 03/24/2013 Dysuria 12/30/2012 Abdominal [...] Info) Description 08/04/2024 12:00 PM EDT Lab [facility] ACC Draw Site Fifth Floor [address] [place] [address] 08/04/2024 1:00 PM EDT Follow-Up [facility] Building [facility] Clinic [address] [place] [address] Vivek Bernal MD PhD [address] [place] [address] Health Maintenance Due Date Last Done Comments [...] Additional history exists Procedures * Due to [place] state law, this organization might not be sharing negative HIV tests. Procedure Name Priority Date/Time Associated Diagnosis Comments CBC AUTO DIFFERENTIAL STAT 02/04/2024 10:26 AM EDT Chronic mbijh-lkomyi-hnpj disease (HCC) COMPREHENSIVE METABOLIC PANEL STAT 02/04/2024 10:26 AM EDT Chronic swdlm-twlhgi-yjjs disease (HCC) HEMOGLOBIN A1C Routine 08/11/2017 10:41 [...] to Health Maintenance Results * Due to [place] state law, this organization might not be sharing negative HIV tests. * (ABNORMAL) CBC Auto Differential (02/04/2024 10:26 AM EDT) WBC 4.6 3.8 - 10.8 10*3/uL 02/04/2024 10:53 AM EDT [facility] RBC 3.40(L) 3.80 - 5.10 10*6/uL 02/04/2024 10:53 AM EDT [facility] Hemoglobin 9.8(L) 11.7 - 15.5 g/dL 02/04/2024 10:53 AM EDT [facility] Hematocrit 30.3(L) 35.0 - 45.0 % 02/04/2024 10:53 AM EDT [facility] MCV 89.1 80.0 - 100.0 fL 02/04/2024 10:53 AM EDT [facility] MCH 28.8 27.0 - 33.0 pg 02/04/2024 10:53 AM EDT [facility] MCHC 32.3 32.0 - 36.0 g/dL 02/04/2024 10:53 AM EDT [facility] RDW 13.2 11.0 - 15.0 % 02/04/2024 10:53 AM EDT [facility] Platelets 241 140 - 400 10*3/uL 02/04/2024 10:53 AM EDT [facility] MPV 9.2 7.5 - 12.5 fL 02/04/2024 10:53 AM EDT [facility] Neutrophil % 44.4 % 02/04/2024 10:53 AM EDT [facility] Immature Grans % 0.9 0.0 - 0.9 % 02/04/2024 10:53 AM EDT [facility] Lymphocyte % 43.4 % 02/04/2024 10:53 AM EDT [facility] Monocyte % 10.2 % 02/04/2024 10:53 AM EDT [facility] Eosinophil % 0.9 % 02/04/2024 10:53 AM EDT [facility] Basophil % 0.2 % 02/04/2024 10:53 AM EDT [facility] Neutrophil # 2.06 1.50 - 7.80 10*3/uL 02/04/2024 10:53 AM EDT [facility] Immature Grans # 0.04(H) <=0.03 10*3/uL 02/04/2024 10:53 AM EDT [facility] Lymphocyte # 2.00 0.85 - 3.90 10*3/uL 02/04/2024 10:53 AM EDT [facility] Monocyte # 0.50 0.20 - 0.95 10*3/uL 02/04/2024 10:53 AM EDT [facility] Eosinophil # <0.03 0.02 - 0.50 10*3/uL 02/04/2024 10:53 AM EDT [facility] Basophil # <0.03 0.00 - 0.20 10*3/uL 02/04/2024 10:53 AM EDT [facility] nRBC % 0.0 /100 WBCs 02/04/2024 10:[address] [facility]ShopReply[facility] nRBC # <0.01 <0.01 10*3/uL 02/04/2024 10:53 AM EDT [facility]ENTERReferral.IMSELECT [facility] Total Neutrophil #, Preliminary 2.06 1.50 - 7.80 10*3/uL 02/04/2024 10:53 AM EDT [facility] Blood Structure of peripheral vein / Unknown Venipuncture / Unknown 02/04/2024 10:26 AM EDT 02/04/2024 10:43 AM EDT us Aylin [facility] LAB BLOOD ORDERABLES Gabi acuna Result [facility]FastHealth[facility] [address] [place] [address], [place] * (ABNORMAL) Comprehensive Metabolic Panel (02/04/2024 10:26 AM EDT) NA 142 135 - 145 mmol/L 02/04/2024 11:17 AM EDT [facility] K 4.0 3.5 - 5.3 mmol/L 02/04/2024 11:17 AM EDT [facility] Cl 105 98 - 107 mmol/L 02/04/2024 11:17 AM EDT [facility] CO2 24 22 - 32 mmol/L 02/04/2024 11:17 AM EDT [facility] Anion Gap 13 5 - 15 02/04/2024 11:17 AM EDT [facility] Glucose 110(H) 65 - 99 mg/dL 02/04/2024 11:17 AM EDT [facility] Creatinine 1.57(H) 0.50 - 1.20 mg/dL 02/04/2024 11:17 AM EDT [facility] Calcium 8.5(L) 8.6 - 10.5 mg/dL 02/04/2024 11:17 AM EDT [facility] Total Protein 7.2 6.0 - 8.0 g/dL 02/04/2024 11:17 AM EDT [facility] Albumin 4.5 3.5 - 5.2 g/dL 02/04/2024 11:17 AM EDT [facility] Bilirubin, Total 0.3 0.2 - 1.2 mg/dL 02/04/2024 11:17 AM EDT [facility] Alkaline Phosphatase 71 35 - 129 U/L 02/04/2024 11:17 AM T [facility] AST 37 10 - 40 U/L 02/04/2024 11:17 AM EDT [facility] ALT 43(H) 10 - 40 U/L 02/04/2024 11:17 AM ED [facility] BUN 19 7 - 23 mg/dL 02/04/2024 11:17 AM [facility] eGFR 38(L) >=60 mL/min/1 .73m2 02/04/2024 11:17 AM [facility] Comment:The estimated glomer ular [...] - 4.2 g/dL 02/04/2024 11:17 AM EDT [facility] A/G Ratio 1.7 1.5 - 3.0 02/04/2024 11:[address] [facility] Blood Structure of peripheral vein / Unknown Venipuncture / Unknown 02/04/2024 10:26 AM EDT 02/04/2024 10:43 AM EDT us Aylin MORROW LAB BLOOD ORDERABLES Gabi l Result [facility] [address] [place] [address], * (ABNORMAL) Vitamin D, 25-Hydroxy, Total, Immunoassay (08/11/2017 10:41 AM EDT) Calcidiol+ercalc idiol 24(L) 30 - 100 ng/mL 08/11/2017 7:50 PM EDT [facility] Comment: Vitamin D Status ? 25-OH Vitamin D: Deficiency: ?<20 ng/mL Insufficiency: ? 20 - 29 ng/mL Optimal: ? > or = 30 ng/mL For 25-OH Vitamin D testing on patients on D2-supplementation and patients for whom quantitation of D2 and D3 fractions is required, the [email or web address]() 25-OH VIT D, (D2,D3), LC/MS/MS is recommended: order code [id number] (patients >2yrs). For more information on this test, go to: http://education.[employer]/faq/SPC318 (This link is being provided for informational/educational purposes only.) Blood specimen (specimen) Structure of peripheral vein / Unknown Venipuncture / Unknown 08/11/2017 10:41 AM EDT 08/11/2017 10:57 AM EDT Narrative [facility] 08/11/2017 7:50 PM EDT [facility] Received Date:[id number] us Aylin MORROW LAB BLOOD ORDERABLES Gabi l Result [facility] [address] [facility] 3rd Floor, [place] [address], [facility] [address], [place] [address], * (ABNORMAL) Hemoglobin A1c (08/11/2017 10:41 AM EDT) Hemoglobin A1C 5.8(H) <5.7 % of total Hgb 08/11/2017 7:12 PM EDT [facility] Comment: For someone without known diabetes, a [...] (MG/DL) 120 (calc) 08/11/2017 7:12 PM EDT [facility] eAG (MMOL/L) 6.6 (calc) 08/11/2017 7:12 PM EDT [facility] Blood specimen (specimen) Structure of peripheral vein / Unknown Venipuncture / Unknown 08/11/2017 10:41 AM EDT 08/11/2017 10:57 AM EDT [facility] NANCY - 08/11/2017 7:12 PM EDT [facility] Received Date:[id number] us Aylin MORROW LAB BLOOD ORDERABLES Gabi l Result [facility] [address], [place] [address], [facility] [address], [place] [address], [place] [phone] * HEPATITIS C ANTIBODY, CONVERSION (08/09/2013 3:20 PM EDT) Hepatitis C Antibody 0.06 <1.00 [facility] HCV Interpretation Negative [facility] Comment: Not infected with HCV, unless recent infection is suspected or other evidence exists to indicate HCV infection. 08/09/2013 3:20 PM EDT 08/09/2013 4:45 PM EDT us Vivek Bernal MD PhD LAB HISTORICAL RESULTS Final Re sult Performing Organization Address [facility]/ZIP Co de Phone Number [facility] [address] [place] [address], [place] * HIV-1/2 Antigen/Antibodies 4th Generation w/Reflex (08/09/2013 3:20 PM EDT) HIV 1,2 Ab/Ag Stat NEGATIVE NEGATIVE [facility] 08/09/2013 3:20 PM EDT 08/09/2013 4:45 PM EDT us Vivek Bernal MD PhD LAB BLOOD ORDERABLES Final Resu lt Performing Organization Address [facility] Co de Phone Number [facility] [address] [place] [address], [place] * Phosphorus (10/08/2012 3:00 AM EDT) Phosphorus Blood 3.6 2.5 - 4.5 mg/dL [facility] 10/08/2012 3:00 AM EDT 10/08/2012 4:14 AM EDT us Neida Sotelo LAB BLOOD ORDERABLES Final Re sult Performing Organization Address [facility]/ZIP Co de Phone Number [facility] [address] [place] [address], [place] * CT Chest W Contrast (08/12/2012 [...] Relevant to Health Maintenance Insurance [address] [place] [address] [facility] Advance Directives Documents on File Type Date Recorded Patient Transportation Department Head Expl anation Advance Directive 08/27/2012 12:00 AM Adva nce Care Directives Advance Directive 08/27/2012 12:00 AM Adva nce Care Directives Advance Directive 07/22/2012 12:00 AM emre Silva edical Dec Making (Adv.Dir) Care Teams Wage Hand Relationship Specialty Start Date End Date Kalpana Baptiste MD [address] [place] [phone] PCP - General 11/22/20
--- OUTSIDE RECORDS SUMMARY | 2024-07-15 15:34 | XMS_ITS | Encounter Summary ---
Author Organization [facility] Address [address] 7t [place] [address] Care Team Providers Care Special Delivery Clerk Name Role Phone Kalpana Baptiste MD Primary Care Provide r Reason for Visit * Reason Comments Med Refill Encounter Details Date Type Department Care Team ([facility] st Contact Info) Description 02/04/2024 Refill [facility] [address] [place], [place] [phone] Caryl Biggs MD [address] [place] [address] Social History Tobacco Use Types Packs/Day Years [...] Description 08/05/2024 1:00 PM EDT Office Visit [facility] [address] [place] [phone] Kalpana Baptiste MD [address] [place] [address] 08/12/2024 11:30 AM EDT Clinical Support [address] [address] Amanda Waldrop, RN documented as of this encounter Visit Diagnoses Not on filedocumented in this encounter Additional Health Concerns Assessment Noted Time PHQ-9 Depression Total Score: 0 08/22/19 23 10:06 AM EDT documented as of this encounter Care Teams Special Delivery Clerk Relationship Specialty Start Date End Date Kalpana Baptiste MD [address] [place] [phone] PCP - General Family Medicine 06/14/20 documented as of this encounter
--- OUTSIDE RECORDS SUMMARY | 2024-07-15 15:34 | XMS_ITS | Encounter Summary ---
Author Organization [facility] Address [address] 7t [place] [address] Care Team Providers Care Manufacturers Agent Name Role Phone Kalpana Baptiste MD Primary Care Provide r Reason for Visit * Reason Comments Med Refill Encounter Details Date Type Department Care Team (Late Contact Info) Description 10/23/2022 Refill [facility] & [facility]EDS [address] [place], [place] [phone] Tootie Tineo ANP [address] [place], [place] [phone] Social History Tobacco Use Types Packs/Day Years [...] Upcoming Encounters Date Type Department Care Team ([facility] Contact Info) Description 08/05/2024 1:00 PM EDT Office Visit [facility] MEDICINE [address] [place], [place] [phone] Kalpana Baptiste MD [address] [place], [place] [phone] 08/12/2024 11:30 AM EDT Clinical Support [facility] [address] [place] [address] Amanda Waldrop RN documented as of this encounter Visit Diagnoses Not on filedocumented in this encounter Additional Health Concerns Assessment Noted Time PHQ-9 Depression Total Score: 0 08/22/19 23 10:06 AM EDT documented as of this encounter Care Teams Manufacturers Agent Relationship Specialty Start Date End Date Kalpana Baptiste MD [address] [place] [address] PCP - General Family Medicine 06/14/20 documented as of this encounter
--- OUTSIDE RECORDS SUMMARY | 2024-07-15 15:34 | XMS_ITS | Encounter Summary ---
Author Organization [facility] Address [address]t [place] [address] Care Team Providers Care Boat Garnisher Name Role Phone Kalpana Baptiste MD Primary Care Provide r Reason for Visit * Reason Comments Med Refill Encounter Details Date Type Department Care Team ([facility] st Contact Info) Description 11/10/2023 Refill [facility] [address] [place], [place] [phone] Kalpana Baptiste MD [address] [place] [address] Social History Tobacco Use Types Packs/Day Years [...] Visit [facility] [address] [place] [phone] Kalpana Baptiste MD [address] [place] [address] 08/12/2024 11:30 AM EDT Clinical Support [facility] [address] [place] [address] Amanda Waldrop, NEGAR documented as of this encounter Visit Diagnoses Not on filedocumented in this encounter Additional Health Concerns Assessment Noted Time PHQ-9 Depression Total Score: 0 08/22/19 23 10:06 AM EDT documented as of this encounter Care Teams Boat Garnisher Relationship Specialty Start Date End Date Kalpana Baptiste MD [address] [place] [phone] PCP - General Family Medicine 06/14/20 documented as of this encounter
--- OUTSIDE RECORDS SUMMARY | 2024-07-15 15:34 | XMS_ITS | Encounter Summary ---
Author Organization [facility] Address [address] 7t [place] [address] Care Team Providers Care Cash Accountant Name Role Phone Kalpana Baptiste MD Primary Care Provide r Reason for Visit * Reason Comments Med Refill Encounter Details Date Type Department Care Team ([facility] st Contact Info) Description 02/12/2024 Refill [facility] [address] [place], [place] [phone] Caryl Biggs MD [address] [place] [address] Primary osteoarthritis of both knees Social History [...] 1:00 PM EDT Office Visit [facility] [address] [place] [phone] Kalpana Baptiste MD [address] [place] [address] 08/12/2024 11:30 AM EDT Clinical Support [address] [address] Amanda Waldrop, NEGAR documented as of this encounter Visit Diagnoses Diagnosis Primary osteoarthritis of both knees documented in this encounter Additional Health Concerns Assessment Noted Time PHQ-9 Depression Total Score: 0 08/22/19 23 10:06 AM EDT documented as of this encounter Care Teams Cash Accountant Relationship Specialty Start Date End Date Kalpana Baptiste MD [address] [place] [phone] PCP - General Family Medicine 06/14/20 documented as of this encounter
--- OUTSIDE RECORDS SUMMARY | 2024-07-15 15:34 | XMS_ITS | Encounter Summary ---
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 ([facility]); Primary osteoarthritis of both knees Social History [...] EDT Office Visit [facility] [address] [place] [phone] Kalpana Baptiste MD [address] [place] [address] 08/12/2024 11:30 AM EDT Clinical Support [facility] [address] [place] [phone] Amanda Waldrop RN documented as of this encounter Visit Diagnoses Diagnosis Type 2 diabetes mellitus with other specified complication, 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
--- OUTSIDE RECORDS SUMMARY | 2024-07-15 15:34 | XMS_ITS | Encounter Summary ---
Author Organization [employer] [facility] Address [address] [facility] 7t [place] [address] Care Team Providers Care Electric Transfer Operator Name Role Phone Kalpana Baptiste MD Primary Care Provide r Reason for Visit * Reason Comments Med Refill Encounter Details Date Type Department Care Team ([facility] Contact Info) Description 01/24/2023 Refill [facility] [address] [place] [address] [phone] Kalpana Baptiste MD [address] [place], [place] [phone] Primary osteoarthritis of both knees Social History [...] Upcoming Encounters Date Type Department Care Team ([facility] Contact Info) Description 08/05/2024 1:00 PM EDT Office Visit [facility] [address] [place] [address] Kalpana Baptiste MD [address] [place] [address] 08/12/2024 11:30 AM EDT Clinical Support [facility] [address] [place] [address] Amanda Waldrop, RN documented as of this encounter Visit Diagnoses Diagnosis Primary osteoarthritis of both knees documented in this encounter Additional Health Concerns Assessment Noted Time PHQ-9 Depression Total Score: 0 08/22/19 23 10:06 AM EDT documented as of this encounter Care Teams Electric Transfer Operator Relationship Specialty Start Date End Date Kalpana Baptiste MD [address] [place] [phone] PCP - General Family Medicine 06/14/20 documented as of this encounter
--- OUTSIDE RECORDS SUMMARY | 2024-07-15 15:34 | XMS_ITS | Encounter Summary ---
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 extermination supervisor insulin use ([facility]); Primary osteoarthritis of both knees Social History [...] Visit [facility] [address] [place] [phone] Kalpana Baptiste MD [address] [place] [phone] 08/12/2024 11:30 AM EDT Clinical Support [facility] [address] [place] [phone] Amanda Waldrop RN documented as of this encounter Visit Diagnoses Diagnosis Type 2 diabetes mellitus with other specified complication, unspecified whether extermination supervisor insulin use ([facility]) Primary osteoarthritis of both knees documented in this encounter Additional Health Concerns Assessment Noted Time PHQ-9 Depression Total Score: 0 08/22/19 23 10:06 AM EDT documented as of this encounter Care Teams Take Down Sorter Relationship Specialty Start Date End Date Kalpana Baptiste MD [address] [place] [phone] PCP - General Family Medicine 06/14/20 documented as of this encounter
--- OUTSIDE RECORDS SUMMARY | 2024-07-15 15:34 | XMS_ITS | Encounter Summary ---
Author Organization [employer] [facility] Address [address]t [place] [address] Care Team Providers Care Real Estate Transaction Manager Name Role Phone Kalpana Baptiste MD Primary Care Provide r Reason for Visit * Reason Comments Med Refill Encounter Details Date Type Department Care Team ([facility] st Contact Info) Description 02/18/2023 Refill [facility] [address] [place], [place] [phone] Kalpana Baptiste MD 230 [place] [address] Primary osteoarthritis of both knees Social History [...] EDT Office Visit [facility] [address] [place] [phone] Kalpana Baptiste MD [address] [place] [phone] 08/12/2024 11:30 AM EDT Clinical Support [facility] [address] [place] [address] Amanda Waldrop, NEGAR documented as of this encounter Visit Diagnoses Diagnosis Primary osteoarthritis of both knees documented in this encounter Additional Health Concerns Assessment Noted Time PHQ-9 Depression Total Score: 0 08/22/19 23 10:06 AM EDT documented as of this encounter Care Teams Real Estate Transaction Manager Relationship Specialty Start Date End Date Kalpana Baptiste MD [address] [place] [phone] PCP - General Family Medicine 06/14/20 documented as of this encounter
--- OUTSIDE RECORDS SUMMARY | 2024-07-15 15:35 | XMS_ITS | Encounter Summary ---
Author Organization [employer] [facility] Address [address]t [place] [address] Care Team Providers Care President + Publisher Name Role Phone Kalpana Baptiste MD Primary [...] 1:00 PM EDT Office Visit [facility] MEDICINE [address] [place] [address] Kalpana Baptiste MD [address] [place] [phone] 08/12/2024 11:30 AM EDT Clinical Support [facility] [address] [place] [phone] Amanda Waldrop, NEGAR documented as of this encounter Visit Diagnoses Not on filedocumented in this encounter Additional Health Concerns Assessment Noted Time PHQ-9 Depression Total Score: 0 05/06/19 25 2:15 PM EST documented as of this encounter Care Teams President + Publisher Relationship Specialty Start Date End Date Kalpana Baptiste MD [address] [place] [phone] PCP - General Family Medicine 06/14/20 documented as of this encounter
--- OUTSIDE RECORDS SUMMARY | 2024-07-15 15:35 | XMS_ITS | Encounter Summary ---
Author Organization [employer] Address [facility] [address] 7t [place] [address] Care Team Providers Care Tassel Maker Name Role Phone Kalpana Baptiste MD Primary Care Provide r Reason for Visit * Reason Comments Med Refill Encounter Details Date Type Department Care Team ([facility] st Contact Info) Description 04/16/2023 Refill [facility] [address] [place], [place] [phone] Kalpana Baptiste MD 230 [place] [address] Chronic tension-type headache, not intractable Social History [...] PM EDT Office Visit [facility] [address] [place] [address] Kalpana Baptiste MD [address] [place] [address] 08/12/2024 11:30 AM EDT Clinical Support [address] [address] Amanda Waldrop RN documented as of this encounter Visit Diagnoses Diagnosis Chronic tension-type headache, not intractable Chronic tension type headache documented in this encounter Additional Health Concerns Assessment Noted Time PHQ-9 Depression Total Score: 0 08/22/19 23 10:06 AM EDT documented as of this encounter Care Teams Tassel Maker Relationship Specialty Start Date End Date Kalpana Baptiste MD [address] [place] [phone] PCP - General Family Medicine 06/14/20 documented as of this encounter
--- OUTSIDE RECORDS SUMMARY | 2024-07-15 15:35 | XMS_ITS | Encounter Summary ---
Author Organization [employer] Address [address] [facility] [address] 7t [place] [address] Care Team Providers Care Dust Box Worker Name Role Phone Kalpana Baptiste MD Primary Care Provide r Reason for Visit * Reason Comments Med Refill Encounter Details Date Type Department Care Team ([facility] st Contact Info) Description 05/15/2023 Refill [facility] 230 [place], [place] [phone] Kalpana Baptiste MD 230 [place] [address] Primary osteoarthritis of both knees; Heartburn Social [...] EDT Office Visit [facility] [address] [place] [address] Kalpana Baptiste MD [address] [place] [address] 08/12/2024 11:30 AM EDT Clinical Support [facility] [address] [place] [address] Amanda Waldrop RN documented as of this encounter Visit Diagnoses Diagnosis Primary osteoarthritis of both knees Heartburn documented in this encounter Additional Health Concerns Assessment Noted Time PHQ-9 Depression Total Score: 0 08/22/19 23 10:06 AM EDT documented as of this encounter Care Teams Dust Box Worker Relationship Specialty Start Date End Date Kalpana Baptiste MD [address] [place] [phone] PCP - General Family Medicine 06/14/20 documented as of this encounter
--- OUTSIDE RECORDS SUMMARY | 2024-07-15 15:35 | XMS_ITS | Encounter Summary ---
Author Organization [employer] Address [address] [facility] [address] 7t [place] [address] Care Team Providers Care Woodwind Instrument Repairer Name Role Phone Kalpana Baptiste MD Primary Care Provide r Reason for Visit * Reason Onset Date Comments Med Refill 07/02/2024 Encounter Details Date Type Department Care Team ([facility] st Contact Info) Description 07/02/2024 Refill [facility] 230 [place], [place] [phone] Kalpana Baptiste MD 230 [place] [address] Social History Tobacco Use Types Packs/Day Years [...] (1000 UT) capsule To be sent to: [email or web address] [address] documented in this encounter Plan of Treatment Upcoming Encounters Date Type Department Care Team (Late st Contact Info) Description 08/05/2024 1:00 PM EDT Office Visit [facility] [address] [place] [phone] Kalpana Baptiste MD [address] [place] [address] 08/12/2024 11:30 AM EDT Clinical Support [facility] [address] [place] [address] Amanda Waldrop RN documented as of this encounter Visit Diagnoses Not on filedocumented in this encounter Additional Health Concerns Assessment Noted Time PHQ-9 Depression Total Score: 0 05/06/19 25 2:15 PM EST documented as of this encounter Care Teams Woodwind Instrument Repairer Relationship Specialty Start Date End Date Kalpana Baptiste MD [address] [place] [phone] PCP - General Family Medicine 06/14/20 documented as of this encounter
--- OUTSIDE RECORDS SUMMARY | 2024-07-15 15:35 | XMS_ITS | Encounter Summary ---
Author Organization [employer] Address [address] [facility] [address] 7t [place] [address] Care Team Providers Care Education Officer Name Role Phone Kalpana Baptiste MD Primary Care Provide r Reason for Visit * Reason Comments Med Refill Encounter Details Date Type Department Care Team ([facility] [place] st Contact Info) Description 05/14/2023 Refill [facility] 230 [place], [place] [phone] Kalpnaa Baptiste MD 230 [place] [address] Primary osteoarthritis of both knees; Heartburn Social [...] Office Visit [facility] [address] [place] [phone] Kalpana Baptiste MD [address] [place] [address] 08/12/2024 11:30 AM EDT Clinical Support [facility] [address] [place] [address] Amanda Waldrop RN documented as of this encounter Visit Diagnoses Diagnosis Primary osteoarthritis of both knees Heartburn documented in this encounter Additional Health Concerns Assessment Noted Time PHQ-9 Depression Total Score: 0 08/22/19 23 10:06 AM EDT documented as of this encounter Care Teams Education Officer Relationship Specialty Start Date End Date Kalpana Baptiste MD [address] [place] [address] PCP - General Family Medicine 06/14/20 documented as of this encounter
--- OUTSIDE RECORDS SUMMARY | 2024-07-15 15:35 | XMS_ITS | Encounter Summary ---
Author Organization [employer] Address [address] [facility] [address] 7t [place] [address] Care Team Providers Care Child Day Care Teacher Name Role Phone Kalpana Baptiste MD Primary Care Provide r Reason for Visit * Reason Comments Med Refill Encounter Details Date Type Department Care Team ([facility] st Contact Info) Description 04/21/[address] [facility] 230 [place], [place] [phone] Kalpana Baptiste MD 230 [place] [address] Primary osteoarthritis of both knees Social History [...] PM EDT Office Visit [facility] [address] [place] [address] Kalpana Baptiste MD [address] [place] [address] 08/12/2024 11:30 AM EDT Clinical Support [facility] [address] [place] [address] Amanda Waldrop, NEGAR documented as of this encounter Visit Diagnoses Diagnosis Primary osteoarthritis of both knees documented in this encounter Additional Health Concerns Assessment Noted Time PHQ-9 Depression Total Score: 0 08/22/19 23 10:06 AM EDT documented as of this encounter Care Teams Child Day Care Teacher Relationship Specialty Start Date End Date Kalpana Baptiste MD [address] [place] [address] PCP - General Family Medicine 06/14/20 documented as of this encounter
--- OUTSIDE RECORDS SUMMARY | 2024-07-15 15:35 | XMS_ITS | Encounter Summary ---
Author Organization [employer] Address 75 [facility] 7t [place] [address] Care Team Providers Care Manager Technology Name Role Phone Kalpana Baptiste MD Primary Care Provide r Encounter Details Date Type Department Care Team (Latest Contact Info) Description 06/07/[address] [facility] CONVERSIONS Dental, Provider, DDS Social History [...] Description 08/05/2024 1:00 PM EDT Office Visit [facility] [address] [place] [phone] Kalpana Baptiste MD [address] [place] [address] 08/12/2024 11:30 AM EDT Clinical Support [facility] [address] [place] [address] [phone] Amanda Waldrop RN documented as of this encounter Visit Diagnoses Not on filedocumented in this encounter Care Teams Manager Technology Relationship Specialty Start Date End Date Kalpana Baptiste MD [address] [place] [address] [phone] PCP - General Family Medicine 06/14/20 documented as of this encounter
--- OUTSIDE RECORDS SUMMARY | 2024-07-15 15:35 | XMS_ITS | Encounter Summary ---
Author Organization [facility] Address [address] [place] [address] Care Team Providers Care Heel Wheeler Name Role Phone Kalpana Baptiste MD Primary Care Provider Reason for Visit * Reason Onset Date Comments BMT appt 05/31/2020 Encounter Details Date Type Department Care Team (Late st Contact Info) Description 05/31/2020 Telephone [facility] Central Scheduling Department [address] [place] [address] Telephone Intake, Staff BMT appt Social History [...] PM EST Pt of [facility]. Bernal at [facility] Calling to schedule a follow up appt CS unable to book as requested. BM Line not available Please call for appt at [phone] documented in this encounter Plan of Treatment Upcoming Encounters Date Type Department Care Team (Late st Contact Info) Description 08/04/2024 12:00 PM EDT Lab [facility] ACC Draw Site Fifth Floor [address] [place] [address] 08/04/2024 1:00 PM EDT Follow-Up [facility] Clinic [address] [place] [address] Vivek Bernal MD PhD [address] [place] [address] documented as of this encounter Visit Diagnoses Not on filedocumented in this encounter Care Teams Heel Wheeler Relationship Specialty Start Date End Date Kalpana Baptiste MD [address] [place] [phone] PCP - General 11/22/20 documented as of this encounter
--- OUTSIDE RECORDS SUMMARY | 2024-07-15 15:35 | XMS_ITS | Encounter Summary ---
Author Organization [employer] Address 75 [facility] [address] 7t [place] [address] Care Team Providers Care Mobile Development Manager Name Role Phone Kalpana Baptiste MD Primary Care Provide r Reason for Visit * Reason Comments Med Refill Encounter Details Date Type Department Care Team ([facility] st Contact Info) Description 05/14/2023 Refill [facility] 230 [place], [place] [phone] Marilyn Corral MD 230 [place], [place] [phone] Type 2 diabetes mellitus with other specified complication, unspecified whether intermodal dispatcher insulin use ([facility]) Social History Tobacco Use Types Packs/Day [...] EDT Office Visit [facility] [address] [place] [address] Kalpana Baptiste MD [address] [place] [address] 08/12/2024 11:30 AM EDT Clinical Support [address] [address] Amanda Waldrop RN documented as of this encounter Visit Diagnoses Diagnosis Type 2 diabetes mellitus with other specified complication, unspecified whether intermodal dispatcher insulin use ([facility]) documented in this encounter Additional Health Concerns Assessment Noted Time PHQ-9 Depression Total Score: 0 08/22/19 23 10:06 AM EDT documented as of this encounter Care Teams Mobile Development Manager Relationship Specialty Start Date End Date Kalpana Baptiste MD [address] [place] [phone] PCP - General Family Medicine 06/14/20 documented as of this encounter
--- OUTSIDE RECORDS SUMMARY | 2024-07-15 15:35 | XMS_ITS | Encounter Summary ---
Author Organization [employer] Address [address] [facility] [address] 7t [place] [address] Care Team Providers Care Geospatial Technologist Name Role Phone Kalpana Baptiste MD Primary Care Provide r Reason for Visit * Reason Onset Date Comments Med Refill 06/03/2023 Encounter Details Date Type Department Care Team ([facility] st Contact Info) Description 06/03/2023 Telephone [facility] 230 [place], [place] [phone] Kalpana Baptiste MD 230 [place] [address] Med Refill Social History Tobacco Use Types [...] Metformin 500 mg To be sent to: [facility] - [address] documented in this encounter Plan of Treatment Upcoming Encounters Date Type Department Care Team (Late st Contact Info) Description 08/05/2024 1:00 PM EDT Office Visit [facility] [address] [place] [phone] Kalpana Baptiste MD 230 [place] [address] 08/12/2024 11:30 AM EDT Clinical Support [facility] [address] [place] [address] Amanda Waldrop RN documented as of this encounter Visit Diagnoses Not on filedocumented in this encounter Additional Health Concerns Assessment Noted Time PHQ-9 Depression Total Score: 0 08/22/19 23 10:06 AM EDT documented as of this encounter Care Teams Geospatial Technologist Relationship Specialty Start Date End Date Kalpana Baptiste MD 230 [place] [address] PCP - General Family Medicine 06/14/20 documented as of this encounter
--- OUTSIDE RECORDS SUMMARY | 2024-07-15 15:35 | XMS_ITS | Encounter Summary ---
Author Organization [employer] Address [address] [facility] [address] 7t [place] [address] Care Team Providers Care Potato Grader Name Role Phone Kalpana Baptiste MD Primary Care Provide r Reason for Visit * Reason Comments Med Refill Encounter Details Date Type Department Care Team ([facility] st Contact Info) Description 04/02/2024 Refill [facility] 230 [place], [place] [phone] Kalpana Baptiste MD 230 [place] [address] Primary osteoarthritis of both knees; Type 2 diabetes mellitus with other specified complication, unspecified whether continuous churn buttermaker insulin use ([facility]) Social History Tobacco Use Types [...] 1:00 PM EDT Office Visit [facility] [address] [place] [phone] Kalpana Baptiste MD [address] [place] [address] 08/12/2024 11:30 AM EDT Clinical Support [facility] [address] [place] [phone] Amanda Waldrop RN documented as of this encounter Visit Diagnoses Diagnosis Primary osteoarthritis of both knees Type 2 diabetes mellitus with other specified complication, unspecified whether continuous churn buttermaker insulin use ([facility]) documented in this encounter Additional Health Concerns Assessment Noted Time PHQ-9 Depression Total Score: 0 08/22/19 23 10:06 AM EDT documented as of this encounter Care Teams Potato Grader Relationship Specialty Start Date End Date Kalpana Baptiste MD [address] [place] [address] PCP - General Family Medicine 06/14/20 documented as of this encounter
--- OUTSIDE RECORDS SUMMARY | 2024-07-15 15:35 | XMS_ITS | Encounter Summary ---
Author Organization [employer] Address 75 [facility] 7t [place] [address] Care Team Providers Care Writing Center Director Name Role Phone Kalpana Baptiste MD Primary Care Provide r Reason for Visit * Reason Comments Med Refill Encounter Details Date Type Department Care Team ([facility] Contact Info) Description 06/10/2022 Refill [facility] [address] [place], [place] [phone] Neida Garrett DO 230 [place] [address] Social History Tobacco Use Types Packs/Day Years [...] 1:00 PM EDT Office Visit [facility] 230 [place], [place] [phone] Kalpana Baptiste MD [address] [place] [address] 08/12/2024 11:30 AM EDT Clinical Support [facility] [address] [place] [address] [phone] Amanda Waldrop RN documented as of this encounter Visit Diagnoses Not on filedocumented in this encounter Care Teams Writing Center Director Relationship Specialty Start Date End Date Kalpana Baptiste MD [address] [place] [address] PCP - General Family Medicine 06/14/20 documented as of this encounter
--- OUTSIDE RECORDS SUMMARY | 2024-07-15 15:35 | XMS_ITS | Encounter Summary ---
Author Organization [employer] Address [address] [facility] [address] 7t [place] [address] Care Team Providers Care Egg Setter Name Role Phone Kalpana Baptiste MD Primary Care Provide r Reason for Visit * Reason Comments Med Refill Encounter Details Date Type Department Care Team ([facility] st Contact Info) Description 07/06/2024 Refill [facility] 230 [place], [place] [phone] Kalpana Baptiste MD 230 [place] [address] Primary osteoarthritis of both knees Social History [...] 1:00 PM EDT Office Visit [facility] [address] [place] [address] Kalpana Baptiste MD [address] [place] [address] 08/12/2024 11:30 AM EDT Clinical Support [address] [address] Amanda Waldrop, RN documented as of this encounter Visit Diagnoses Diagnosis Primary osteoarthritis of both knees documented in this encounter Additional Health Concerns Assessment Noted Time PHQ-9 Depression Total Score: 0 05/06/19 25 2:15 PM EST documented as of this encounter Care Teams Egg Setter Relationship Specialty Start Date End Date Kalpana Baptiste MD [address] [place] [address] PCP - General Family Medicine 06/14/20 documented as of this encounter
--- OUTSIDE RECORDS SUMMARY | 2024-07-15 15:35 | XMS_ITS | Encounter Summary ---
Author Organization [employer] Address [address] [facility] [address] 7t [place] [address] Care Team Providers Care Assistant Boiler Operator Name Role Phone Kalpana Baptiste MD Primary Care Provide r Reason for Visit * Reason Comments Med Refill Encounter Details Date Type Department Care Team ([facility] st Contact Info) Description 04/21/2023 Refill [facility] 230 [place], [place] [phone] Kalpana Baptiste MD 230 [place] [address] Chronic tension-type headache, not intractable Social History [...] 1:00 PM EDT Office Visit [facility] [address] [place] [address] Kalpana Baptiste MD [address] [place] [address] 08/12/2024 11:30 AM EDT Clinical Support [address] [address] Amanda Waldrop RN documented as of this encounter Visit Diagnoses Diagnosis Chronic tension-type headache, not intractable Chronic tension type headache documented in this encounter Additional Health Concerns Assessment Noted Time PHQ-9 Depression Total Score: 0 08/22/19 23 10:06 AM EDT documented as of this encounter Care Teams Assistant Boiler Operator Relationship Specialty Start Date End Date Kalpana Baptiste MD [address] [place] [address] PCP - General Family Medicine 06/14/20 documented as of this encounter
--- OUTSIDE RECORDS SUMMARY | 2024-07-15 15:35 | XMS_ITS | Encounter Summary ---
Author Organization [employer] Address [address] [facility] [address] 7t [place] [address] Care Team Providers Care Utilization Review Coordinator Name Role Phone Kalpana Baptiste MD Primary Care Provide r Reason for Visit * Reason Comments Med Refill Encounter Details Date Type Department Care Team ([facility] st Contact Info) Description 04/08/2023 Refill [facility] 230 [place], [place] [phone] Kalpana Baptiste MD 230 [place] [address] Chronic tension-type headache, not intractable Social History [...] Description 08/05/2024 1:00 PM EDT Office Visit [facility] MED[facility]INE [address] [place] [phone] Kalpana Baptiste MD [address] [place] [address] 08/12/2024 11:30 AM EDT Clinical Support [address] [address] Amanda Waldrop RN documented as of this encounter Visit Diagnoses Diagnosis Chronic tension-type headache, not intractable Chronic tension type headache documented in this encounter Additional Health Concerns Assessment Noted Time PHQ-9 Depression Total Score: 0 08/22/19 23 10:06 AM EDT documented as of this encounter Care Teams Utilization Review Coordinator Relationship Specialty Start Date End Date Kalpana Baptiste MD [address] [place] [phone] PCP - General Family Medicine 06/14/20 documented as of this encounter
--- OUTSIDE RECORDS SUMMARY | 2024-07-15 15:35 | XMS_ITS | Encounter Summary ---
Author Organization [employer] Address [address] [facility] [address] 7t [place] [address] Care Team Providers Care Plastic Tool Maker Name Role Phone Kalpana Baptiste MD Primary Care Provide r Reason for Visit * Reason Comments Med Refill Encounter Details Date Type Department Care Team ([facility] st Contact Info) Description 03/11/2023 Refill [facility] 230 [place], [place] [phone] Kalpana Baptiste MD 230 [place] [address] Chronic tension-type headache, not intractable; Primary osteoarthritis [...] Office Visit [facility] MED[facility]INE [address] [place] [address] Kalpana Baptiste MD [address] [place] [address] 08/12/2024 11:30 AM EDT Clinical Support [address] [address] Amanda Waldrop RN documented as of this encounter Visit Diagnoses Diagnosis Chronic tension-type headache, not intractable Chronic tension type headache Primary osteoarthritis of both knees documented in this encounter Additional Health Concerns Assessment Noted Time PHQ-9 Depression Total Score: 0 08/22/19 23 10:06 AM EDT documented as of this encounter Care Teams Plastic Tool Maker Relationship Specialty Start Date End Date Kalpana Baptiste MD [address] [place] [address] PCP - General Family Medicine 06/14/20 documented as of this encounter
--- OUTSIDE RECORDS SUMMARY | 2024-07-15 15:35 | XMS_ITS | Encounter Summary ---
Author Organization [employer] Address [address] [facility] [address] 7t [place] [address] Care Team Providers Care Gang Mower Operator Name Role Phone Kalpana Baptiste MD Primary Care Provide r Reason for Visit * Reason Comments Med Refill Encounter Details Date Type Department Care Team ([facility] st Contact Info) Description 03/07/2023 Refill [facility] 230 [place], [place] [phone] Kalpana Baptiste MD 230 [place] [address] Primary osteoarthritis of both knees; Chronic tension-type [...] Description 08/05/2024 1:00 PM EDT Office Visit [address] [address] Kalpana Baptiste MD [address] [place] [address] 08/12/2024 11:30 AM EDT Clinical Support [address] [address] Amanda Waldrop RN documented as of this encounter Visit Diagnoses Diagnosis Primary osteoarthritis of both knees Chronic tension-type headache, not intractable Chronic tension type headache documented in this encounter Additional Health Concerns Assessment Noted Time PHQ-9 Depression Total Score: 0 08/22/19 23 10:06 AM EDT documented as of this encounter Care Teams Gang Mower Operator Relationship Specialty Start Date End Date Kalpana Baptiste MD [address] [place] [address] PCP - General Family Medicine 06/14/20 documented as of this encounter
--- OUTSIDE RECORDS SUMMARY | 2024-07-15 15:35 | XMS_ITS | Encounter Summary ---
Author Organization [employer] Address [address] [facility] 7t [place] [address] Care Team Providers Care Astro Technician Name Role Phone Kalpana Baptiste MD Primary Care Provide r Reason for Visit * Reason Comments Med Refill Encounter Details Date Type Department Care Team ([facility] Contact Info) Description 06/11/2022 Refill [facility] MED & PEDS [address] [place], [place] [phone] Neida Garrett DO [address] [place] [address] Social History Tobacco Use Types Packs/Day Years [...] Upcoming Encounters Date Type Department Care Team ([facility] Contact Info) Description 08/05/2024 1:00 PM EDT Office Visit [facility] MEDICINE [address] [place], [place] [phone] Kalpana Baptiste MD [address] [place] [phone] 08/12/2024 11:30 AM EDT Clinical Support [facility] MEDICINE [address] [place] [address] [phone] Amanda Waldrop RN documented as of this encounter Visit Diagnoses Not on filedocumented in this encounter Care Teams Astro Technician Relationship Specialty Start Date End Date Kalpana Baptiste MD [address] [place] [phone] PCP - General Family Medicine 06/14/20 documented as of this encounter
--- OUTSIDE RECORDS SUMMARY | 2024-07-15 15:35 | XMS_ITS | Encounter Summary ---
Author Organization [email or web address] Address [address] [facility] [address] 7t [place] [address] Care Team Providers Care Grain Processor Name Role Phone Kalpana Baptiste MD Primary Care Provide r Reason for Visit * Reason Comments Med Refill Encounter Details Date Type Department Care Team ([facility] st Contact Info) Description 05/15/2023 Refill [facility] MEDICINE [address] [place], [place] [phone] Mrailyn Corral MD [address] [place], [place] [phone] Type 2 diabetes mellitus with other specified complication, unspecified whether long term care phlebotomist insulin use ([facility]) Social History Tobacco Use Types Packs/Day [...] Description 08/05/2024 1:00 PM EDT Office Visit [facility] MEDICINE [address] [place] [phone] Kalpana Baptiste MD [address] [place] [phone] 08/12/2024 11:30 AM EDT Clinical Support [address] [phone] Amanda Waldrop RN documented as of this encounter Visit Diagnoses Diagnosis Type 2 diabetes mellitus with other specified complication, unspecified whether long term care phlebotomist insulin use ([facility]) documented in this encounter Additional Health Concerns Assessment Noted Time PHQ-9 Depression Total Score: 0 08/22/19 23 10:06 AM EDT documented as of this encounter Care Teams Grain Processor Relationship Specialty Start Date End Date Kalpana Baptiste MD [address] [place] [phone] PCP - General Family Medicine 06/14/20 documented as of this encounter
--- OUTSIDE RECORDS SUMMARY | 2024-07-15 15:35 | XMS_ITS | Encounter Summary ---
Author Organization [employer] Address [address] [facility] 7t [place] [address] Care Team Providers Care Organisation And Methods Analyst Name Role Phone Kalpana Baptiste MD Primary Care Provide r Reason for Visit * Reason Comments Med Refill Encounter Details Date Type Department Care Team ([facility] Contact Info) Description 06/01/2022 Refill [facility] CHC MED & PEDS [address] [place], [place] [phone] Neida Garrett DO [address] [place] [address] Social History Tobacco Use Types Packs/Day Years [...] Upcoming Encounters Date Type Department Care Team ([facility] Contact Info) Description 08/05/2024 1:00 PM EDT Office Visit [facility] MEDICINE [address] [place], [place] [phone] Kalpana Baptiste MD [address] [place] [phone] 08/12/2024 11:30 AM EDT Clinical Support [facility] MEDICINE [address] [place] [address] [phone] Amanda Waldrop RN documented as of this encounter Visit Diagnoses Not on filedocumented in this encounter Care Teams Organisation And Methods Analyst Relationship Specialty Start Date End Date Kalpana Baptiste MD [address] [place] [phone] PCP - General Family Medicine 06/14/20 documented as of this encounter
--- OUTSIDE RECORDS SUMMARY | 2024-07-15 15:35 | XMS_ITS | Clinical Summary ---
Author Organization [employer] Address [address] [facility] 7t [place] [address] Care Team Providers Care Absorption And Adsorption Engineer Name Role Phone Kalpana Baptiste MD [...] unspecified whether stage 3a or 3b CKD ([facility]) 1 each by Other route 2 times daily. 100 each 11 024 Active Blood Glucose Monitoring Suppl (FreeStyle Oakpark Lite) w/Device kitIndications:Ty pe 2 diabetes mellitus with stage 3 chronic kidney disease, without long-term current use of insulin, unspecified whether stage 3a or 3b CKD ([facility]) Use to test blood sugar 2 times [...] 024 Active Blood Glucose Monitoring Suppl (FreeStyle [place]park Lite) w/Device kitIndications: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 ([facility]) Use to test blood sugar 2 times daily 1 kit 024 Active SITagliptin (Januvia) 50 MG tabletIndications :Type 2 diabetes mellitus with other specified complication, unspecified whether watcher automat long goods insulin use ([facility]) TAKE ONE TABLET BY MOUTH EVERY DAY [...] mellitus with other specified complication, unspecified whether watcher automat long goods insulin use (CMS/HCC) TAKE ONE TABLET BY [...] renewed, she will be call for her [employer]NAGER [employer] appointment Steatosis of liver 05/14/2022 CKD stage [...] ordered Acute pharyngitis 12/29/2013 Cough 06/16/2013 Chronic jtkwy-zlcknr-ghpb disease 05/19/2013 Headache 03/24/2013 Dysuria 12/30/2012 Abdominal [...] Type Department Care Team Description 07/06/2024 Refill [facility] [address] [place] [address] Kalpana Baptiste MD Primary osteoarthritis of both knees 07/02/2024 Refill [facility] [address] [place] [address] Kalpana Baptiste MD 07/02/2024 Refill [facility] [address] [place] [address] Kalpana Baptiste MD Primary osteoarthritis of both knees 06/22/2024 1:00 PM EST Office Visit [facility] [address] [place] [address] Jonathon, Beata, OD Diabetes type 2, no ocular involvement (CMS/HCC) (Primary Dx); Dry eyes, bilateral; History of meningioma; Chalazion of left lower eyelid; Early cataracts, bilateral; Presbyopia 06/22/2024 Refill [facility] [address] [place] [address] Kalpana Baptiste MD Heartburn 06/22/2024 Travel 06/10/2024 Orders Only [facility] [address] [place] [address] Kalpana Baptiste MD Hepatic steatosis (Primary Dx) 06/08/2024 Refill [facility] [address] [facility] [place] [address] Kalpana Baptiste MD Primary osteoarthritis of both knees 05/25/2024 Patient Outreach [facility] MED & PEDS [address] [place] [address] Kalpana Baptiste MD Transition Of Care (Tcm) (HDF unscheduled. LVM #2) 05/21/2024 Patient Outreach [facility] MED & PEDS [address] [place] [address] Kalpana Baptiste MD Transition Of Care (Tcm) (HDF unscheduled. ) 05/13/2024 9:00 AM EST Clinical Support [facility] [address] [place] [phone] Amanda Waldrop RN Chronic gouty arthritis (Primary Dx) 05/13/2024 Refill [facility] [address] [place] [phone] Kalpana Baptiste MD Heartburn 05/13/2024 Telephone [facility] [address] [place] [phone] Amanda Waldrop, NEGAR BPI Scoring 05/13/2024 Travel 05/13/2024 Telephone [facility] [address] [place] [phone] Amanda Waldrop, RN Recommend [employer]SE Tier 2 05/07/2024 Telephone [facility] [address] [place] [phone] Amanda Waldrop, RN Reschedule [employer] RV appt she cancelled 03/22/24 05/06/2024 2:30 PM EST Office Visit [facility] [address] [place] [phone] Kalpana Baptiste MD Primary hypertension (Primary Dx); CKD stage 3 due to type 2 diabetes mellitus ([facility]/HCC); Elevated LFTs; Primary osteoarthritis of both knees 05/06/2024 Travel from Last 3 Months Immunizations Name Administration [...] 1:00 PM EDT Office Visit [facility] [address] [place] [phone] Kalpana Baptiste MD [address] [place] [address] 08/12/2024 11:30 AM EDT Clinical Support [facility] [address] [place] [phone] Amanda Waldrop, NEGAR Health Maintenance Due Date Last Done Comments [...] Completed 02/04/2024, , 02/20/2021, Additional history exists Hepatitis C Screening Completed 07/09/2024, 021 Cervical Cancer Screening Discontinued HPV Vaccines Aged Out No longer eligi ble based on patient's age to complete this topic RSV under 20 months Aged Out No longe r eligible based on patient's age to complete this topic Rotavirus Vaccines Aged Out No longer eligible based on patient's age to complete this topic Procedures Procedure Name Priority Date/Time Associated Diagnosis Comments HEPATITIS PANEL, GENERAL Routine 07/09/2024 9:57 AM EST Elevated LFTs US ABDOMEN COMPLETE Routine 06/10/2024 2 :37 [...] EST Dental calculus Periodontal disease Dental caries HM COLONOSCOPY Routine 07/06/2015 from Last 3 Months or Most Recently Relevant to Health Maintenance Results * Hepatitis A,B,C Profile (07/09/2024 9:57 AM EST) Hepatitis A IgM Nonreactive Nonreactive [facility] Comment:IgM antibodies to LUCIANO V not detected; does not exclude earlyacute or recovered HAV infection. ~Hepatitis B Surface Antibody NONREACTIVE Nonreactive [facility] Comment:Nonreactive: < 8.00 mIU/mL Hepatitis B Core Antibody Nonreactive Nonreactive [facility] Hepatitis C Antibody Nonreactive Nonreactive [facility] Comment:Antibodies to HCV no t detected; does not exclude early acuteHCV infection. Hepatitis B Surface Ag Negative Negative [facility] Blood Venous blood specimen / Unknown 07/09/2024 9:57 AM EST 07/09/2024 9:57 AM EST us Kalpana Steele MD LAB BLOOD ORDERABLES Final Result [facility] [address] [facility] [place] [address] [phone] * US Abdomen Complete (06/10/2024 2:37 PM EST) Anatomical Region Laterality Modality Abdomen Ultrasound 06/10/2024 2:3 7 PM EST Narrative 06/10/2024 2:39 PM EST ? [facility] ?[address] ?[place] [address] ? Ultrasound Report ? Signed ? Patient: Lavinia,Santa ?MR#: [id number] ?? 74 ? : 1965 ?Acct:[id number] ? Age/Sex: 59 / F ?ADM Date: 06/04/24 ? Loc: HO.US ? Attending Dr: Kalpana Steele MD ? Ordering Physician: Kalpana Baptiste MD ?? Date of Service: 06/04/24 ?? Procedure(s): US abdomen complete ?? Accession Number(s): [id number] ? cc: Kalpana Baptiste MD ? CLINICAL [...] DD/ 1437 ? TD/TT: 06/10/24 1437 ? Inspection Engineer: ? Procedure Note Donlisater, Image - 06/10/2024 [place] [address] Ultrasound Report Signed Patient: Damian Kate#: [id number] 74 : 1965Acct:[id number] Age/Sex: 59 / FADM Date: 06/04/24 Loc: HO.US Attending Dr: Kalpana Steele MD Ordering Physician: Kalpana Baptiste MD Date of Service: 06/04/24 Procedure(s): US abdomen complete Accession Number(s): [id number] cc: Kalpana Baptiste MD CLINICAL HISTORY: elevated [...] document has been electronically signed by: [place] eSpulveda MD on 06/10/2024 14:37:25 Dictated By: [place] Arita MD Signed By: <Electronically signed by [place] Arita MD in OV> 06/10/24 1438 DD/ 1437 TD/TT: 06/10/24 1437 Inspection Engineer: Kalpana Steele MD IMG US PROCEDURES Fin al Result * POCT MARY-14 Urine Drug Screen (05/13/2024 9:14 AM EST) Urine Urine specimen obtained by clean catch procedure / Unknown 05/13/2024 9:14 AM EST Amanda Muñoz RN - 05/13/2024 9:14 AM EST UTOX cup Lot#[id number] Exp. 01/27/26 Internal Pass Control Negative for all substances Result [facility] Kalpana Steele MD POINT OF CARE TEST EN TER/EDIT ORDERABLES Final Result * (ABNORMAL) POCT HGB A1C (02/25/2024 2:04 PM EDT) Hemoglobin A1C 6.0 4.0 - 6.0 % QC Media Lot # [id number] Lot# Expiration Date [id number] Blood 02/25/2024 2:04 PM EDT Result [facility] Kalpana Steele MD POINT OF CARE TEST EN TER/EDIT ORDERABLES Final Result * BI Mammogram Screening Tomosynthesis Bilateral (08/26/2023 2:30 PM EDT) Anatomical Region Laterality Modality Breast Bilateral Mammography 08/26/2023 2:30 PM EDT Narrative 09/22/2023 4:39 AM EDT ? [facility] ? [address] ?[place] [address] ? Mammography Report ? Signed ? Patient: Lavinia,Santa ?MR#: [id number] ?? 74 ? : 1965 ?Acct:[id number] ? Age/Sex: 58 / F ?ADM Date: 08/26/23 ? Loc: HO.MAMMO ? Attending Dr: Kalpana Steele MD ? Ordering Physician: Kalpana Baptiste MD ?Results: ?? 2Benign Findings ? Date of Service: 08/26/23 ?Follow Up: 1 Year From Orig ?? inal Mammogram ? Procedure(s): MM tomosynthesis screening BI ?? Accession Number(s): [id number] ? cc: Kalpana Baptiste MD ? EXAMINATION: [...] 0435 ? DD/ 1430 ? TD/TT: ? Inspection Engineer: ? Procedure Note Pablo, Image - 09/22/2023 [facility] [address] [place] [address] Mammography Report Signed Patient: Damian Kate#: [id number] 74 : 1965Acct:[id number] Age/Sex: 58 / FADM Date: 08/26/23 Loc: HO.MAMMO Attending Dr: Kalpana Steele MD Ordering Physician: Kalpana Baptiste MDResults: 2Benign Findings Date of Service: 08/26/23Follow Up: 1 Year From Orig inal Mammogram Procedure(s): MM tomosynthesis screening BI Accession Number(s): [id number] cc: Kalpana Baptiste MD EXAMINATION: MM SCREENING [...] in OV> 09/22/23 0435 DD/ 1430 TD/TT: Inspection Engineer: us Kalpana Steele MD IMG BI PROCEDURES Chad nick Result - Final * (ABNORMAL) Lipid Panel, Standard (08/21/2023 1:45 PM EDT) Triglycerides 552(H) <150 mg/dL [facility] Comment:Desirable Triglyceri de: less than 150 mg/dLBorderline High Triglyceride 150-199 mg/dLHigh Triglyceride: 200-499 mg/dLVery High Triglyceride: greater than or equal to 5OO mg/dL Cholesterol 268(H) <200 mg/dL [facility] Comment:Desirable Cholestero l: less than 200 mg/dLBorderline High Cholesterol: 200-239 mg/dLHigh Cholesterol: greater than 239 mg/dL LDL Cholesterol Calculated TNP <100 mg/dL [facility] Comment:Unable to calculate the LDL. The formula of Friedwald,Stock, and Mendoza is only valid if the triglycerides areless than 400 mg/dl. HDL Cholesterol 50 >40 mg/dL [facility] Comment:Desirable HDL: great er than 40 mg/dL Note: This HDL assay may give artificially low results in patients with liver disease. Blood Venous blood specimen / Unknown 08/21/2023 1:45 PM EDT 08/21/2023 3:52 PM EDT us Kalpana Steele MD LAB BLOOD ORDERABLES Final Result [facility] [address] [place] [address] [phone] * Colonoscopy (07/06/2015) Colonoscopy Normal Normal Narrative Therese Brown - 07/06/2015 Recommended 5 year follow up us Historical Provider HEALTH MAINTENANCE Final Result from Last 3 Months or Most Recently Relevant to Health Maintenance Insurance [facility] C3 DENTAL-[facility] MEDICAID STAND ADULT Care Teams Absorption And Adsorption Engineer Relationship Specialty Start Date End Date Kalpana Baptiste MD [address] [place] [phone] PCP - General Family Medicine 06/14/20
--- OUTSIDE RECORDS SUMMARY | 2024-07-15 15:35 | XMS_ITS | Clinical Summary ---
Author Organization 175 [facility] Address [address] [place] [address] Phone Care Team Providers Care Geospatial Scientist Name Role Phone Kalpana Baptiste MD [...] 2:45 PM EST Office Visit Orthopedic Surgery [facility] 250 175 [facility] [address] [place] [phone] Lee Delaney, DPM Metatarsalgia of both feet (Primary Dx); Pain in right wrist; Dermatophytosis of nail; Pain in toe of right foot; Pain in toe of left foot; Diabetic mononeuropathy simplex (CMS/HCC) 05/17/2024 11:26 PM EST - 05/20/2024 3:44 PM EST Hospital Encounter [facility] [address] [place] [phone] Millay, Scot MD Zachary Martin Nermina, MD [...] Orthopedic Surgery - [place] [address] [phone] Lee Delaney, DPM [address] [address] Health Maintenance Due Date Last Done Comments [...] of9 resultswithin the time period is included. [facility] Glucose POCT 129(H) 70 - 100 mg/dL 05/20/2024 12:[address] [facility] Blood Capillary blood specimen / Unknown 05/20/2024 12:08 PM EST 05/20/2024 12:10 PM EST us Randee Slater MD LAB POINT OF CARE TE ST DOCKED DEVICE UNSOLICITED RESULTS Final Result [facility] [address] [place] [address], [place] [phone] * (ABNORMAL) Basic metabolic panel (05/20/2024 6:02 AM EST) Only the most recent of2 resultswithin the time period is included. [facility] Sodium 138 133 - 145 mmol/L LAB CHEMISTRY METHOD 05/20/2024 9:[address] [facility] Potassium 4.0 3.5 - 5.5 mmol/L LAB CHEMISTRY METHOD 05/20/2024 9:[address] [facility] Chloride 111(H) 96 - 110 mmol/L LAB CHEMISTRY METHOD 05/20/2024 9:07 AM [facility] CO2 24 21 - 32 mmol/L LAB CHEMISTRY METHOD 05/20/2024 9:07 AM [facility] Anion Gap 3 3 - 11 LAB CHEMISTRY METHOD 05/20/2024 9:07 AM [facility] Glucose 106(H) 70 - 100 mg/dL LAB CHEMISTRY METHOD 05/20/2024 9:07 AM [facility] BUN 18 5 - 25 mg/dL LAB CHEMISTRY METHOD 05/20/2024 9:07 AM [facility] Creatinine 1.75(H) 0.50 - 1.10 mg/dL LAB CHEMISTRY METHOD 05/20/2024 9:07 AM [facility] eGFR 33(L) >=60 mL/min/1. 73m2 LAB CHEMISTRY METHOD 05/20/2024 9:07 AM [facility] Comment:Calculation based on the??Chronic Kidney Disease Epidemiology Collaboration (CKD-EPI) equation refit??without adjustment for race. BUN/Creatinine Ratio 10.3 LAB CHEMISTRY METHOD 05/20/2024 9:07 AM [facility] Calcium 8.0(L) 8.5 - 10.5 mg/dL LAB CHEMISTRY METHOD 05/20/2024 9:07 AM [facility] Blood Venous blood specimen / Unknown Venipuncture / Unknown 05/20/2024 6:02 AM EST 05/20/2024 6:38 AM EST Clarice MORROW LAB BLOOD ORDERABLES Gabi acuna Result [facility] [address] [place] [address], * (ABNORMAL) Gastrointestinal pathogens molecular study (05/20/2024 1:56 AM EST) [facility] Campylobacter Detection by PCR Not Detected Not Detected LAB MICROBIOLOGY METHOD 5 8:58 AM [facility] Plesiomonas shigelloides Detection by PCR Not Detected Not Detected LAB MICROBIOLOGY METHOD 5 8:58 AM [facility] Salmonella Detection by PCR Not Detected Not Detected LAB MICROBIOLOGY METHOD 5 8:58 AM [facility] Vibrio Detection by PCR Not Detected Not Detected LAB MICROBIOLOGY METHOD 5 8:58 AM [facility] Vibrio cholerae Detection by PCR Not Detected Not Detected LAB MICROBIOLOGY METHOD 5 8:58 AM [facility] Yersinia enterocolitica Detection by PCR Not Detected Not Detected LAB MICROBIOLOGY METHOD 5 8:58 AM [facility] Enteroaggregative E coli EAEC Detection by PCR Not Detected Not Detected LAB MICROBIOLOGY METHOD 5 8:58 AM [facility] Enteropathogenic E coli EPEC Detection Not Detected Not Detected LAB MICROBIOLOGY METHOD 5 8:58 AM [facility] Enterotoxigenic E coli ETEC LTST Detection Not Detected Not Detected LAB MICROBIOLOGY METHOD 5 8:58 AM [facility] Shiga-like toxin producing E coli STEC STX1 STX2 Det Not Detected Not Detected LAB MICROBIOLOGY METHOD 5 8:58 AM [facility] Shigella Enteroinvasive E coli EIEC Detection Not Detected Not Detected LAB MICROBIOLOGY METHOD 5 8:58 AM [facility] Cryptosporidium Detection by PCR Not Detected Not Detected LAB MICROBIOLOGY METHOD 5 8:58 AM [facility] Cyclospora cayetanensis Detection by PCR Not Detected Not Detected LAB MICROBIOLOGY METHOD 5 8:58 AM [facility] Entamoeba histolytica Detection by PCR Not Detected Not Detected LAB MICROBIOLOGY METHOD 5 8:[address] [facility] Giardia lamblia Detection by PCR Not Detected Not Detected LAB MICROBIOLOGY METHOD 5 8:58 AM [facility] Adenovirus F 40 41 Detection by PCR Not Detected Not Detected LAB MICROBIOLOGY METHOD 5 8:58 AM [facility] Astrovirus Detection by PCR Not Detected Not Detected LAB MICROBIOLOGY METHOD 5 8:58 AM [facility] Norovirus GI GII Detection by PCR Detected(A ) Not Detected LAB MICROBIOLOGY METHOD 5 8:58 AM [facility] Comment:ALTERNATE METHOD REC OMMENDED IF RESULTS DO NOT CORRELATE WITH CLINICAL PRESENTATION Sapovirus Detection by PCR Not Detected Not Detected LAB MICROBIOLOGY METHOD 5 8:58 AM [facility] Rotavirus A Detection by PCR Not Detected Not Detected LAB MICROBIOLOGY METHOD 5 8:58 AM [facility] Stool Rectum structure / Unknown Non-blood Collection / Unknown 05/20/2024 1:56 AM EST 05/20/2024 2:06 AM EST [facility] - 05/20/2024 8:58 AM EST [...] GENERA L ORDERABLES Edited Result - Final [facility] [address] [place] [address], * Lactate (05/19/2024 8:15 AM EST) Only the most recent of2 resultswithin the time period is included. Pathologist [facility] Lactate 0.8 0.4 - 2.0 mmol/L LAB CHEMISTRY METHOD 05/19/2024 9:00 AM [facility] Blood Venous blood specimen / Unknown Venipuncture / Unknown 05/19/2024 8:15 AM EST 05/19/2024 8:32 AM EST Clarice MORROW LAB BLOOD ORDERABLES Gabi l Result [facility] [address] [place] [address], * (ABNORMAL) Complete blood count (05/19/2024 5:51 AM EST) [facility] WBC 4.5(L) 4.8 - 10.8 K/mcL LAB HEMETOLOGY METHOD 05/19/2024 7:30 AM [facility] RBC 3.10(L) 3.80 - 4.80 M/mcL LAB HEMETOLOGY METHOD 05/19/2024 7:30 AM [facility] Hemoglobin 8.9(L) 11.5 - 16.0 g/dL LAB HEMETOLOGY METHOD 05/19/2024 7:30 AM [facility] Hematocrit 27.9(L) 35.0 - 47.0 % LAB HEMETOLOGY METHOD 05/19/2024 7:30 AM [facility] MCV 91.2 79.0 - 98.0 FL LAB HEMETOLOGY METHOD 05/19/2024 7:30 AM [facility] MCH 29.1 27.0 - 32.0 pcg LAB HEMETOLOGY METHOD 05/19/2024 7:30 AM [facility] MCHC 31.9(L) 32.0 - 37.0 g/dL LAB HEMETOLOGY METHOD 05/19/2024 7:[address] [facility] RDW 13.6 11.0 - 15.0 % LAB HEMETOLOGY METHOD 05/19/2024 7:[address] [facility] Platelets 164 130 - 400 K/mcL LAB HEMETOLOGY METHOD 05/19/2024 7:[address] [facility] MPV 10.1 7.0 - 11.0 FL LAB HEMETOLOGY METHOD 05/19/2024 7:[address] [facility] NRBC 0.4 <1.0 % LAB HEMETOLOGY METHOD 05/19/2024 7:[address] [facility] NRBC Absolute 0.02 <0.10 K/mcL LAB HEMETOLOGY METHOD 05/19/2024 7:[address] [facility] Blood Venous blood specimen / Unknown Venipuncture / Unknown 05/19/2024 5:51 AM EST 05/19/2024 6:50 AM EST us Beronica MORROW LAB BLOOD ORDERABLES Final Resul t [facility] [address] [place] [address], [place] [phone] * Magnesium (05/19/2024 5:51 AM EST) Only the most recent of2 resultswithin the time period is included. Magnesium 2.1 1.9 - 2.6 mg/dL LAB CHEMISTRY METHOD 05/19/2024 7:[address] [facility] Blood Venous blood specimen / Unknown Venipuncture / Unknown 05/19/2024 5:51 AM EST 05/19/2024 6:51 AM EST us Beronica MORROW LAB BLOOD ORDERABLES Final Resul t [facility] [address] [place] [address], [place] [phone] * Sodium, urine, random (05/18/2024 4:28 PM EST) Sodium, Ur 96 mmol/L LAB CHEMISTRY METHOD 05/18/2024 5:[address] [facility] Urine Urine specimen from urethra / Unknown Non-blood Collection / Unknown 05/18/2024 4:28 PM EST 05/18/2024 4:51 PM EST us Beronica MORROW LAB URINE ORDERABLES Final Resul t Performing Organization Address City/[facility]/ZIP Co de Phone Number [facility] [address] [place] [address], [place] [phone] * Protein, urine, random (05/18/2024 4:28 PM EST) Protein, Urine 42 mg/dL LAB CHEMISTRY METHOD 05/18/2024 5:[address] [facility] Urine Urine specimen obtained by clean catch procedure / Unknown Non-blood Collection / Unknown 05/18/2024 4:28 PM EST 05/18/2024 4:51 PM EST us Beronica MORROW LAB URINE ORDERABLES Final Resul t [facility] [address] [place] [address], [place] [phone] * Creatinine, urine, random (05/18/2024 4:28 PM EST) Creatinine, Urine 97.0 mg/dL LAB CHEMISTRY METHOD 05/18/2024 5:[address] [facility] Urine Urine specimen from urethra / Unknown Non-blood Collection / Unknown 05/18/2024 4:28 PM EST 05/18/2024 4:51 PM EST us Beronica MORROW LAB URINE ORDERABLES Final Resul t [facility] [address] [place] [address], [place] [phone] * Respiratory virus panel molecular study (05/18/2024 12:20 PM EST) Adenovirus Detection by PCR Not Detected Not Detected LAB MICROBIOLOGY METHOD 05/18/2024 1:[address] [facility] Influenza A PCR Not Detected Not Detected LAB MICROBIOLOGY METHOD 05/18/2024 1:[address] [facility] Influenza B PCR Not Detected Not Detected LAB MICROBIOLOGY METHOD 05/18/2024 1:[address] [facility] Coronavirus 229E Not Detected Not Detected LAB MICROBIOLOGY METHOD 05/18/2024 1:[address] [facility] Coronavirus HKU1 Not Detected Not Detected LAB MICROBIOLOGY METHOD 05/18/2024 1:[address] [facility] Coronavirus OC43 Not Detected Not Detected LAB MICROBIOLOGY METHOD 05/18/2024 1:[address] [facility] Coronavirus NL63 Not Detected Not Detected LAB MICROBIOLOGY METHOD 05/18/2024 1:49 PM [facility] Parainfluenza Virus 1 Not Detected Not Detected LAB MICROBIOLOGY METHOD 05/18/2024 1:[address] [facility] Parainfluenza Virus 2 Not Detected Not Detected LAB MICROBIOLOGY METHOD 05/18/2024 1:[address] [facility] Parainfluenza Virus 3 Not Detected Not Detected LAB MICROBIOLOGY METHOD 05/18/2024 1:[address] [facility] Parainfluenza Virus 4 Not Detected Not Detected LAB MICROBIOLOGY METHOD 05/18/2024 1:49 PM [facility] RSV PCR Not Detected Not Detected LAB MICROBIOLOGY METHOD 05/18/2024 1:[address] [facility] Human Metapneumovirus A and B Not Detected Not Detected LAB MICROBIOLOGY METHOD 05/18/2024 1:[address] [facility] Rhinovirus/Entero virus Not Detected Not Detected LAB MICROBIOLOGY METHOD 05/18/2024 1:[address] [facility] Bordetella pertussis Not Detected Not Detected LAB MICROBIOLOGY METHOD 05/18/2024 1:[address] [facility] Bordetella parapertussis Not Detected Not Detected LAB MICROBIOLOGY METHOD 05/18/2024 1:[address] [facility] Mycoplasma pneumo by PCR Not Detected Not Detected LAB MICROBIOLOGY METHOD 05/18/2024 1:[address] [facility] Chlamydia pneumoniae Not Detected Not Detected LAB MICROBIOLOGY METHOD 05/18/2024 1:[address] [facility] SARS COV-2 Not Detected Not Detected LAB MICROBIOLOGY METHOD 05/18/2024 1:49 PM [facility] Swab Both anterior nares / Unknown Non-blood Collection / Unknown 05/18/2024 12:20 PM EST 05/18/2024 12:53 PM EST [facility] - 05/18/2024 1:49 PM EST Testing was performed using the [facility] Respiratory Pathogen PCR Assay. All results must [...] MICROBIOLOGY - GENERAL ORDER BRUNO Final Result [facility] [address] [place] [address], * Mckeon urine culture tube (05/18/2024 3:32 AM EST) Pathologist [facility] Extra Tube Hold for add-ons. 05/18/2024 9:01 AM EST [facility] Comment:Auto resulted. Urine Urine specimen obtained by clean catch procedure / Unknown Non-blood Collection / Unknown 05/18/2024 3:32 AM EST 05/18/2024 7:37 AM EST us Clyde Retana MD LAB URINE ORDERABLES Final Resu lt [facility] [address] [place] [address], [place] [phone] * CT Abdomen Pelvis wo Contrast (05/18/2024 [...] and culture (05/18/2024 12:46 AM EST) Specific [place] Urine 1.017 1.003 - 1.030 LAB URINALYSIS - AUTOMATED METHOD 05/18/2024 3:45 AM [facility] pH, Urine 5.5 5.0 - 8.0 pH LAB URINALYSIS - AUTOMATED METHOD 05/18/2024 3:45 AM [facility] Leukocytes, Urine Negative Negative LAB URINALYSIS - AUTOMATED METHOD 05/18/2024 3:45 AM [facility] Nitrite, Urine Negative Negative LAB URINALYSIS - AUTOMATED METHOD 05/18/2024 3:45 AM [facility] Protein, Urine 300(A) <=Trace mg/dL LAB URINALYSIS - AUTOMATED METHOD 05/18/2024 3:45 AM [facility] Glucose, Urine Negative Negative mg/dL LAB URINALYSIS - AUTOMATED METHOD 05/18/2024 3:45 AM [facility] Ketones, Urine Trace(A) Negative mg/dL LAB URINALYSIS - AUTOMATED METHOD 05/18/2024 3:45 AM [facility] Urobilinogen, Urine 0.2 0.2 - 1.0 mg/dL LAB URINALYSIS - AUTOMATED METHOD 05/18/2024 3:45 AM [facility] Bilirubin, Urine Negative Negative LAB URINALYSIS - AUTOMATED METHOD 05/18/2024 3:45 AM [facility] Blood, Urine Trace(A) Negative LAB URINALYSIS - AUTOMATED METHOD 05/18/2024 3:45 AM [facility] RBC, Urine 4.1(H) 0 - 4 /HPF LAB URINALYSIS - AUTOMATED METHOD 05/18/2024 3:45 AM [facility] WBC, Urine 2.3 0 - 4 /HPF LAB URINALYSIS - AUTOMATED METHOD 05/18/2024 3:45 AM [facility] Squamous Epithelial, Urine 36 0 - 60 /LPF LAB URINALYSIS - AUTOMATED METHOD 05/18/2024 3:45 AM [facility] Bacteria, Urine Negative Negative /HPF LAB URINALYSIS - AUTOMATED METHOD 05/18/2024 3:45 AM [facility] Hyaline Casts, Urine 2.9 0 - 3 /LPF LAB URINALYSIS - AUTOMATED METHOD 05/18/2024 3:45 AM [facility] Urine Urine specimen obtained by clean catch procedure / Unknown Non-blood Collection / Unknown 05/18/2024 12:46 AM EST 05/18/2024 3:36 AM EST Clyde Retana MD LAB URINE ORDERABLES Final Resu lt [facility] [address] [place] [address], [place] [phone] * [place] top urine tube (05/18/2024 12:46 AM EST) Extra Tube Hold for add-ons. 05/18/2024 3:04 AM [facility] Comment:Auto resulted. Urine Urine specimen obtained by clean catch procedure / Unknown Non-blood Collection / Unknown 05/18/2024 12:46 AM EST 05/18/2024 1:06 AM EST us Clyde Retana MD LAB URINE ORDERABLES Final Resu lt Performing Organization Address City/[facility]/ZIP Co de Phone Number [facility] [address] [place] [address], [place] [phone] * Urine culture (05/18/2024 12:46 AM EST) Pathologist [facility] Culture, Urine No growth 05/19/2024 10:27 AM [facility] Urine Urine specimen obtained by clean catch procedure / Unknown Non-blood Collection / Unknown 05/18/2024 12:46 AM EST 05/18/2024 1:05 AM EST us Clyde Retana MD LAB MICROBIOLOGY - GENERAL ORDE RABLES Final Result Performing Organization Address [facility]/ZIP Co de Phone Number [facility] [address] [place] [address], [place] [phone] * (ABNORMAL) Manual differential (05/18/2024 12:37 AM EST) Neutrophils % 74.0 % LAB HEMETOLOGY METHOD 5 1:39 AM [facility] Bands % 13.0 % LAB HEMETOLOGY METHOD 5 1:39 AM [facility] Lymphocytes % 10.0 % LAB HEMETOLOGY METHOD 5 1:39 AM [facility] Monocytes % 2.0 % LAB HEMETOLOGY METHOD 5 1:39 AM [facility] Eosinophils % 0.0 % LAB HEMETOLOGY METHOD 5 1:39 AM [facility] Basophils % 0.0 % LAB HEMETOLOGY METHOD 5 1:39 AM [facility] Metamyelocytes % 1.0(H) % LAB HEMETOLOGY METHOD 5 1:39 AM [facility] Neutrophils Absolute Manual 4.22 1.50 - 7.00 K/mcL LAB HEMETOLOGY METHOD 5 1:39 AM [facility] Bands Absolute Manual 0.74(H) 0.00 - 0.00 K/mcL LAB HEMETOLOGY METHOD 5 1:39 AM [facility] Lymphocytes Absolute 0.57(L) 1.00 - 5.00 K/mcL LAB HEMETOLOGY METHOD 5 1:39 AM [facility] Monocytes Absolute Manual 0.11(L) 0.20 - 1.00 K/mcL LAB HEMETOLOGY METHOD 5 1:39 AM [facility] Eosinophils Absolute Manual 0.00 0.00 - 0.50 K/mcL LAB HEMETOLOGY METHOD 5 1:39 AM [facility] Basophils Absolute Manual 0.00 0.00 - 0.20 K/mcL LAB HEMETOLOGY METHOD 5 1:39 AM [facility] Metamyelocytes Absolute Manual 0.06(H) 0.00 - 0.00 K/mcL LAB HEMETOLOGY METHOD 5 1:39 AM [facility] Rbc Morphology Consistent with indices Consistent with indices, Normal for LAB HEMETOLOGY METHOD 5 1:39 AM [facility] Platelet Morphology - WAM Normal Normal LAB HEMETOLOGY METHOD 5 1:39 AM [facility] Blood Venous blood specimen / Unknown Venipuncture / Unknown 05/18/2024 12:37 AM EST 05/18/2024 1:04 AM EST us Scot Mario Retana MD LAB BLOOD ORDERABLES Final Resu lt [facility] [address] [place] [address], * (ABNORMAL) CBC auto differential (05/18/2024 12:37 AM EST) WBC 5.7 4.8 - 10.8 K/mcL LAB HEMETOLOGY METHOD 05/18/2024 1:39 AM [facility] RBC 3.80 3.80 - 4.80 M/mcL LAB HEMETOLOGY METHOD 05/18/2024 1:39 AM [facility] Hemoglobin 11.1(L) 11.5 - 16.0 g/dL LAB HEMETOLOGY METHOD 05/18/2024 1:39 AM [facility] Hematocrit 33.2(L) 35.0 - 47.0 % LAB HEMETOLOGY METHOD 05/18/2024 1:39 AM [facility] MCV 87.6 79.0 - 98.0 FL LAB HEMETOLOGY METHOD 05/18/2024 1:39 AM [facility] MCH 29.3 27.0 - 32.0 pcg LAB HEMETOLOGY METHOD 05/18/2024 1:39 AM [facility] MCHC 33.4 32.0 - 37.0 g/dL LAB HEMETOLOGY METHOD 05/18/2024 1:39 AM [facility] RDW 13.3 11.0 - 15.0 % LAB HEMETOLOGY METHOD 05/18/2024 1:39 AM [facility] Platelets 256 130 - 400 K/mcL LAB HEMETOLOGY METHOD 05/18/2024 1:39 AM [facility] MPV 9.9 7.0 - 11.0 FL LAB HEMETOLOGY METHOD 05/18/2024 1:39 AM [facility] NRBC 0.0 <1.0 % LAB HEMETOLOGY METHOD 05/18/2024 1:[address] [facility] NRBC Absolute 0.00 <0.10 K/mcL LAB HEMETOLOGY METHOD 05/18/2024 1:[address] [facility] Blood Venous blood specimen / Unknown Venipuncture / Unknown 05/18/2024 12:37 AM EST 05/18/2024 1:04 AM EST us Clyde Retana MD LAB BLOOD ORDERABLES Final Resu lt Performing Organization Address City/[facility]/ZIP Co de Phone Number [facility] [address] [place] [address], [place] [phone] * Lipase (05/18/2024 12:37 AM EST) Lipase 48 13 - 75 unit/L LAB CHEMISTRY METHOD 05/18/2024 1:[address] [facility] Blood Venous blood specimen / Unknown Venipuncture / Unknown 05/18/2024 12:37 AM EST 05/18/2024 1:04 AM EST us Clyde Retana MD LAB BLOOD ORDERABLES Final Resu lt Performing Organization Address [facility]/ZIP Co de Phone Number [facility] [address] [place] [address], [place] [phone] * (ABNORMAL) Comprehensive metabolic panel (05/18/2024 12:37 AM EST) Sodium 140 133 - 145 mmol/L LAB CHEMISTRY METHOD 05/18/2024 1:[address] [facility] Potassium 4.3 3.5 - 5.5 mmol/L LAB CHEMISTRY METHOD 05/18/2024 1:[address] [facility] Chloride 109 96 - 110 mmol/L LAB CHEMISTRY METHOD 05/18/2024 1:[address] [facility] CO2 20(L) 21 - 32 mmol/L LAB CHEMISTRY METHOD 05/18/2024 1:36 AM [facility] Anion Gap 11 3 - 11 LAB CHEMISTRY METHOD 05/18/2024 1:36 AM [facility] Glucose 131(H) 70 - 100 mg/dL LAB CHEMISTRY METHOD 05/18/2024 1:36 AM [facility] BUN 35(H) 5 - 25 mg/dL LAB CHEMISTRY METHOD 05/18/2024 1:36 AM [facility] Creatinine 2.57(H) 0.50 - 1.10 mg/dL LAB CHEMISTRY METHOD 05/18/2024 1:36 AM [facility] eGFR 21(L) >=60 mL/min/1. 73m2 LAB CHEMISTRY METHOD 05/18/2024 1:36 AM [facility] Comment:Calculation based on the??Chronic Kidney Disease Epidemiology Collaboration (CKD-EPI) equation refit??without adjustment for race. BUN/Creatinine Ratio 13.6 LAB CHEMISTRY METHOD 05/18/2024 1:36 AM [facility] Calcium 8.9 8.5 - 10.5 mg/dL LAB CHEMISTRY METHOD 05/18/2024 1:36 AM [facility] AST (SGOT) 46(H) 10 - 42 unit/L LAB CHEMISTRY METHOD 05/18/2024 1:36 AM [facility] ALT (SGPT) 68(H) 10 - 60 unit/L LAB CHEMISTRY METHOD 05/18/2024 1:36 AM [facility] Alkaline Phosphatase 78 42 - 121 unit/L LAB CHEMISTRY METHOD 05/18/2024 1:36 AM [facility] Total Protein 7.7 6.0 - 8.0 g/dL LAB CHEMISTRY METHOD 05/18/2024 1:36 AM [facility] Albumin 4.3 3.2 - 5.0 g/dL LAB CHEMISTRY METHOD 05/18/2024 1:[address] [facility] Total Bilirubin 0.5 0.0 - 1.4 mg/dL LAB CHEMISTRY METHOD 05/18/2024 1:[address] [facility] Blood Venous blood specimen / Unknown Venipuncture / Unknown 05/18/2024 12:37 AM EST 05/18/2024 1:04 AM EST us Scot Mario Retana MD LAB BLOOD ORDERABLES Final Resu lt [facility] [address] [place] [address], * ECG-Annotated (05/18/2024) us Provider Onbase ECG ORDERABLES Final Result from Last 3 Months Additional Health Concerns Infection Onset Date Last Indicated Norovirus 05/20/2024 05/20/2024 Insurance MEDICA[place] - [place] Advance Directives Documents on File Type Date Recorded Patient Survey Methodologist Expl anation Advance Directives and Living Will 05/21/2024 8:51 AM Advance Directives and Living Will 05/19/2024 11:42 AM Veronique Burrell [facility] Care Pro xy * Full Code - [...] Healthcare Agent Relationshi p Communication Veronique Dominique [facility] Health Care Agent Salome Koroma [facility] Health Care Agent Care Teams Geospatial Scientist Relationship Specialty Start Date End Date Kalpana Baptiste MD [address] [place] [phone] PCP - General Internal Medicine 05/18/24
--- OUTSIDE RECORDS SUMMARY | 2024-07-15 15:35 | XMS_ITS | Encounter Summary ---
Author Organization [employer] Address [address] [place] [address] Care Team Providers Care Nutrition Faculty Member Name Role Phone Kalpana Baptiste MD Primary Care Provide r Reason for Visit * Reason Comments Med Refill Encounter Details Date Type Department Care Team ([facility] st Contact Info) Description 06/22/[address] [facility] [address] [place], [place] [phone] Kalpana Baptiste MD [address] [place] [address] Heartburn Social History Tobacco Use Types Packs/Day [...] EDT Office Visit [facility] [address] [place] [phone] Kalpana Baptiste MD [address] [place] [address] 08/12/2024 11:30 AM EDT Clinical Support [address] [address] Amanda Waldrop, NEGAR documented as of this encounter Visit Diagnoses Diagnosis Heartburn documented in this encounter Additional Health Concerns Assessment Noted Time PHQ-9 Depression Total Score: 0 05/06/19 25 2:15 PM EST documented as of this encounter Care Teams Nutrition Faculty Member Relationship Specialty Start Date End Date Kalpana Baptiste MD [address] [place] [phone] PCP - General Family Medicine 06/14/20 documented as of this encounter
--- OUTSIDE RECORDS SUMMARY | 2024-07-15 15:35 | XMS_ITS | Encounter Summary ---
Author Organization [employer] Address [address] 7[address] [place] [address] Care Team Providers Care Loss Control Technician Name Role Phone Kalpana Baptiste MD Primary Care Provide r Reason for Visit * Reason Comments Diabetic Eye Exam Encounter Details Date Type Department Care Team ([facility] st Contact Info) Description 06/22/2024 1:00 PM EST Office Visit [facility] OPTOMETRY [address] [place] [address] Jonathon, Beata, OD [address] [place] [address] Diabetes type 2, no ocular involvement (CMS/HCC) (Primary Dx); Dry eyes, bilateral; History of meningioma; Chalazion of left lower eyelid; Early cataracts, bilateral; Presbyopia Social History Tobacco Use Types Packs/Day Years [...] as of this encounter Progress Notes * Beata Holt, OD - 06/22/2024 1:00 PM EST Eye Care Progress Note Patient ID: Santa Kate is a 59 y.o. female. Chief Complaint Diabetic Eye Exam HPI Here for a diabetic eye exam. She has Type II IDDM. Her last HbA1c was 6.0% on 02/25/2024. The patient has a history of a grade 2 right frontal parafalcine meningioma that has been resected.Today she complains of blurry vision at distance and near in both eyes for about 6 months. She complains of dryness in both eyes. She does not self treat her symptoms. Her last eye exam was here on 01/13/2023. Last edited by Beata Holt, OD on 07/15/2024 2:27 PM. Current Outpatient Medications Medication Sig Dispense Refill Acetaminophen Extra Strength [...] Max) 400-400-40 MG/5ML suspension Take by mouth. amLODIPine (Norvasc) 10 MG tablet Take 1 tablet (10 mg) by mouth Once per day. 30 tablet 3 atorvastatin (Lipitor) 20 MG tablet Take 1 tablet by mouth. azithromycin (Zithromax) 250 MG tablet Take 2 tabs PO daily x 1d then 1 tab PO daily on D2 to D5 6 tablet 0 Blood Glucose Monitoring Suppl (FreeStyle [place] Lite) w/Device kit Use to test blood sugar 2 times daily 1 kit 0 Blood Glucose Monitoring Suppl (FreeStyle [place] Lite) w/Device kit Use to test blood [...] ONCE A DAY (VIAL) 30 capsule 11 citalopram (CeleXA) 10 MG tablet Take [...] DAILY AND DIRECTED (BULK) 50 strip 11 hydroCHLOROthiazide 12.5 MG tablet Take 1 tablet (12.5 mg) by mouth Once per day. 30 tablet 11 ketotifen (Alaway) 0.025 % ophthalmic solution [...] MOUTH EVERY MORNING (VIAL) 30 tablet 11 losartan (Cozaar) 25 MG tablet Take 1 tablet (25 mg) by mouth Once per day. 30 tablet 11 melatonin 3 MG tablet [...] FOR OPIOID REVERSAL (BULK) 2 each 2 Vliiwgjk-Uwnhngjuy-VO 1 % solution Administer 3 drops into [...] Take 1 mg by mouth at bedtime. tobramycin-dexAMETHasone (Tobradex) ophthalmic suspension USE 3 DROPS INTO LEFT EAR TWICE A DAY FOR2 WEEKS tolterodine LA (Detrol LA) 4 MG 24 hr capsule Take 1 capsule (4 mg) by mouth in the morning. 90 capsule 1 traMADol (Ultram) 50 MG tablet TAKE ONE TABLET BY MOUTH EVERY 6 HOURS IF NEEDED FOR SEVERE PAIN (VIAL) 100 tablet 0 Ventolin HFA 108 (90 Base) MCG/ACT inhaler INHALE TWO PUFFS BY MOUTH EVERY 6 HOURS NEEDED FOR SHORTNESS OF BREATH OR WHEEZING (BULK) 18 g 11 No current facility-administered medications for this visit. Past Medical History: Diagnosis Date Acalculous cholecystitis 12/16/2022 Anemia Asthma Biliary dyskinesia 12/16/2022 Diabetes mellitus (CMS/HCC) Dyslipidemia 12/16/2022 Dysuria 12/30/2012 GERD (gastroesophageal reflux disease) 12/16/2022 Gout involving toe Seen at [facility] ED 05/06/22 with acute exacerbation. Prescribed colchicine and oxycodone. History of cancer History of meningioma 03/2019 excision and radiation Hypertension Hypertensive disorder 03/06/2012 Kidney stones Meningioma (CMS/HCC) 12/16/2022 Myelofibrosis (CMS/HCC) 03/06/2012 Obstructive sleep apnea syndrome 03/02/2015 Osteoarthritis of both knees 05/14/2022 Osteoporosis Steatosis of liver 05/14/2022 Past Surgical History: Procedure Laterality Date BASAL CELL CARCINOMA EXCISION Right 01/2015 cheek BONE MARROW TRANSPLANT 2012 Myelofibrosis BREAST SURGERY 2006 Reduction ESOPHAGOGASTRODUODENOSCOPY 07/2015 GYNECOLOGIC CRYOSURGERY 1992 ectropion cervix HYSTERECTOMY KNEE SURGERY Bilateral 2004 TUBAL LIGATION Bilateral Family History Problem Relation Name Age of Onset Diabetes Mother Kidney disease Mother Hypertension Mother Glaucoma Mother Heart disease Mother Coronary artery disease Father Breast cancer Sister 49 Diabetes Sister Diabetes Brother Breast cancer Mother's Sister Social History Socioeconomic History Marital status: Spouse name: Not on file Number of children: Not on file Years of education: Not on file Highest education level: Not on file Occupational History Not on file Tobacco Use Smoking status: Former Types: Cigarettes Passive exposure: Past Smokeless tobacco: Never Vaping Use Vaping status: Unknown Substance and Sexual Activity Alcohol use: Never Drug use: Never Sexual activity: Defer Other Topics Concern Not on file Social History Narrative Not on file Social Drivers of Health Food Insecurity: Low Risk (05/06/2024) Food Insecurity Within the past 12 months, you worried that your food would run out before you got money to buy more:: Never True Within the past 12 months,the food you bought just didn't last and you didn't have enough money to get more: : Never True Transportation Needs: Low Risk (05/06/2024) Transportation In the past 12 months, has lack of transportation kept you from medical appts, meetings, work or from getting things needed for daily living? : No Intimate Partner Violence: Not on file Housing Stability: Low Risk (05/06/2024) Housing Stability What is your housing situation today?: I have housing Think about the place you live. Do you have problems with any of the following? : None of the above Allergies Allergen Reactions Aspirin Rash Other reaction(s): Flushing, Other (see comments), unspecified Other reaction(s): SWELLING/ITCHING, rash Other Reaction(s): itching Penicillins Angioedema, Itching and Rash Other reaction(s): Flushing, Other (see comments), unspecified Other Reaction(s): itching Vancomycin Other reaction(s): Rash, Rash Other reaction(s): RED MAN SYNDROME PER MD ROS Positive for: Eyes Negative for: Constitutional, Gastrointestinal, Neurological, Skin, Genitourinary, Musculoskeletal,HENT, Endocrine, Cardiovascular, Respiratory, Psychiatric, Allergic/Imm, Heme/Lymph Last edited by Kierra Alvarado on 06/22/2024 1:05 PM. Base Eye Exam Visual Acuity (Snellen - Linear) Right Left Dist cc 20/25 -1 20/30 Correction: Glasses Tonometry (iCare , 1:12 PM) Right Left Pressure 9 9 Pupils Pupils APD Right PERRL None Left PERRL None Visual Wallace (Counting fingers) Left Right Full Full Extraocular Movement Right Left Full Full Neuro/Psych Oriented x3: Yes Mood/Affect: Normal Dilation Both eyes: 1% Tropicamide @ 1:22 PM Additional Tests Glare Testing (BIO) Off High Right 20/25-1 20/25-1 Left 20/25-1 20/25-1 Slit Lamp and Fundus Exam External Exam Right Left External Normal Normal Slit Lamp Exam Right Left Lids/Lashes Normal 2mm chalazion LLL Conjunctiva/Sclera Temporal pinguecula, 1mm nasal pterygium Temporal pinguecula Cornea TBUT instant, SPK inferiorly TBUT instant, SPK inferiorly Anterior Chamber Deep and quiet Deep and quiet Iris Flat, no NVI Flat, no NVI Lens Trace PSC, trace NS Trace PSC, trace NS Fundus Exam Right Left Vitreous Clear Clear Disc Bradley and Distinct, no NVD Bradley and Distinct, no NVD C/D Ratio Vertical 0.1 0.15 C/D Ratio Horizontal 0.1 0.15 Macula Flat and Intact, no CSME Flat and Intact, no CSME Vessels Normal Normal Periphery No holes/breaks/tears 360 degrees, no NVE No holes/breaks/tears 360 degrees, no NVE Refraction Wearing Rx Sphere Cylinder Add Right +0.75 Sphere +2.25 Left +0.75 Sphere +2.25 Manifest Refraction (Subjective) Sphere Cylinder Dist VA Add Right +0.75 Sphere 20/25 -1 +2.50 Left +0.75 Sphere 20/25 +1 +2.50 Near VA Both: 20/20 Final Rx Sphere Cylinder Dist VA Add Right +0.75 Sphere 20/25 +2.50 Left +0.75 Sphere 20/25 +2.50 Expiration Date: 06/22/2025 Assessment/plan: Diagnoses and all orders for this visit: Diabetes type 2, no ocular involvement ([facility]) There is no diabetic retinopathy or macular edema present today in either eye. The patient was educated on the exam findings. The patient was educated to continue controlling blood glucose levels through diet, exercise and medication. The patient was educated on potential complications of diabetic retinopathy, including blindness, if left untreated. The patient was educated on the importance of an annual diabetic eye exam to monitor for diabetic retinopathy. A summary of today's dilated eye exam results will be communicated to the patient's PCP through the shared patient problem list in [facility].Will monitor in 1 year. Dry eyes, bilateral Patient educated on dry eye syndrome. Dry eye syndrome is caused by a chronic lack of sufficient lubrication and moisture on the surface of the eye. Consequences of dry eyes range from subtle but constant eye irritation to significant inflammation and even scarring of the front surface of the eye. S ymptoms of dry eye syndrome include: a burning sensation, itching, an aching sensation, heavy feeling eyes, fatigued eyes, sore eyes, dryness sensation, redness, photophobia, and blurred vision. She was given a handout of OTC artificial tears to purchase and use 4 times per day in both eyes. Will monitor at her next exam. History of meningioma The patient was diagnosed with a meningioma in 2019 which was resected. Her visual wallace remain normal. Will monitor as necessary. Chalazion of left lower eyelid Patient educated on condition. A chalazion is a painless bump or lump in the upper eyelid or, less frequently, in the lower eyelid. It is caused by a thickening of the fluid in the oil glands (meibomian glands) of the eyelid. She was educated to try warm compresses and lid massage to help express the gland as well. The patient was educated to return with any increase in symptoms. Early cataracts, bilateral Not visually significant to warrant treatment at this time. Patient educated on progressive nature of cataracts. Will monitor at their next exam. Presbyopia Glasses prescription updated and given. Will monitor at the patient's next full eye exam. Beata Jonathon, OD 07/15/2024, 2:50 PM Student Name: Kierra Alvarado I attest that I was physically present with the optometry student. I personally saw and evaluated the patient and performed my own history and examination. I have reviewed, verified, and revised the documented findings as necessary and agree with the content and plan as written. Rice Drier Source: ___ None _X__ Bilingual Staff ___ Qualified Staff Clinical Esthetician ___ Telephone Rice Drier; ID# ___ Rice Drier brought by patient (family member, friend, VP [employer], etc) ___ In person electrical plumbing supervisor ___ Ipad Rice Drier; ID#: Language Spoken During Exam: __Spanish documented in this encounter Plan of Treatment Upcoming Encounters Date Type Department Care Team (Late st Contact Info) Description 08/05/2024 1:00 PM EDT Office Visit [address] [phone] Kalpana Baptiste MD [address] [place] [phone] 08/12/2024 11:30 AM EDT Clinical Support [address] [address] Amanda Waldrop, RN documented as of this encounter Visit Diagnoses Diagnosis Diabetes type 2, no ocular involvement ([facility])- Primary Dry eyes, bilateral History of meningioma Chalazion of left lower eyelid Early cataracts, bilateral Presbyopia documented in this encounter Additional Health Concerns Assessment Noted Time PHQ-9 Depression Total Score: 0 05/06/19 25 2:15 PM EST documented as of this encounter Care Teams Loss Control Technician Relationship Specialty Start Date End Date Kalpana Baptiste MD [address] [place] [address] [phone] PCP - General Family Medicine 06/14/20 documented as of this encounter
--- OUTSIDE RECORDS SUMMARY | 2024-07-15 15:35 | XMS_ITS | Encounter Summary ---
Author Organization [employer] Address [address] [place] [address] Care Team Providers Care Comfort Advisor Name Role Phone Kalpana Baptiste MD Primary Care Provide r Reason for Visit * Reason Comments Med Refill Encounter Details Date Type Department Care Team ([facility] st Contact Info) Description 07/02/[address] [facility] MEDICINE [address] [place], [place] [phone] Kalpana Baptiste MD [address] [place] [address] Primary osteoarthritis of both knees Social History [...] PM EDT Office Visit [facility] MEDICINE [address] [place] [phone] Kalpana Baptiste MD [address] [place] [phone] 08/12/2024 11:30 AM EDT Clinical Support [address] [address] Amanda Waldrop, RN documented as of this encounter Visit Diagnoses Diagnosis Primary osteoarthritis of both knees documented in this encounter Additional Health Concerns Assessment Noted Time PHQ-9 Depression Total Score: 0 05/06/19 25 2:15 PM EST documented as of this encounter Care Teams Comfort Advisor Relationship Specialty Start Date End Date Kalpana Baptiste MD [address] [place] [phone] PCP - General Family Medicine 06/14/20 documented as of this encounter
--- OUTSIDE RECORDS SUMMARY | 2024-07-15 15:35 | XMS_ITS | Encounter Summary ---
Author Organization [employer] Address [address] [place] [address] Care Team Providers Care Summer Law Associate Name Role Phone Kalpana Baptiste MD Primary Care Provide r Encounter Details Date Type Department Care Team ([facility] Contact Info) Description 05/17/2022 Orders Only [facility] MEDICINE [address] [place] [address] [phone] Marilyn Corral MD [address] [place], [place] [phone] Acute idiopathic gout involving toe of right [...] Upcoming Encounters Date Type Department Care Team ([facility] Contact Info) Description 08/05/2024 1:00 PM EDT Office Visit [facility] MEDICINE [address] [place] [address] [phone] Kalpana Baptiste MD [address] [place] [address] 08/12/2024 11:30 AM EDT Clinical Support [facility] MEDICINE [address] [place], [place] [phone] Amanda Waldrop RN documented as of this encounter Visit Diagnoses Diagnosis Acute idiopathic gout involving toe of right foot documented in this encounter Care Teams Summer Law Associate Relationship Specialty Start Date End Date Kalpana Baptiste MD [address] [place] [phone] PCP - General Family Medicine 06/14/20 documented as of this encounter
== END 2024-07-15 12:06 | disposition home or self-care (01) ==
LOC: HO.LAB 12:05
PROVIDERS: PCP Internal Medicine; Visit Provider Internal Medicine Nephrology
DX: I12.9 Hypertensive chronic kidney disease with stage 1 through stage 4 chronic kidney disease, or unspecified chronic kidney disease (principal); E11.21 Type 2 diabetes mellitus with diabetic nephropathy; N18.32 Chronic kidney disease, stage 3b; R80.1 Persistent proteinuria, unspecified
CPT/HCPCS: 36415; 80051; 81001; 82040; 82043; 82306; 82310; 82565; 82570; 83735; 83970; 84156; 84520; 85025; 87086; 87147

== ENCOUNTER 2024-09-01 13:19 | Outpatient (REF) | payer MEDICAID, SELFPAY ==
--- OUTSIDE RECORDS SUMMARY | 2024-09-01 14:37 | XMS_ITS | Encounter Summary ---
Author Organization [employer] Address [address] [place] [address] Care Team Providers Care Wireless Store Manager Name Role Phone Kalpana Baptiste MD Primary Care Provide r Reason for Visit * Reason Comments Med Refill Encounter Details Date Type Department Care Team ([facility] st Contact Info) Description 07/10/2023 Refill [facility] MED[facility]INE [address] [place], [place] [phone] Crayl Biggs MD [address] [place] [address] Primary osteoarthritis of both knees Social History [...] Care Team (Late st Contact Info) Description 11/01/2024 1:30 PM EDT Clinical Support [facility] MEDICINE [address] [place] [phone] Amanda Waldrop RN 11/10/2024 10:00 AM EDT Office Visit [facility] MEDICINE [address] [place] [phone] Kalpana Baptiste MD [address] [place] [phone] documented as of this encounter Visit Diagnoses Diagnosis Primary osteoarthritis of both knees documented in this encounter Additional Health Concerns Assessment Noted Time PHQ-9 Depression Total Score: 0 08/22/19 23 10:06 AM EDT documented as of this encounter Care Teams Wireless Store Manager Relationship Specialty Start Date End Date Kalpana Baptiste MD [address] [place] [phone] PCP - General Family Medicine 06/14/20 documented as of this encounter
--- OUTSIDE RECORDS SUMMARY | 2024-09-01 14:37 | XMS_ITS | Encounter Summary ---
Author Organization [employer] Address [address] [place] [address] Care Team Providers Care Can Worker Name Role Phone Kalpana Baptiste MD Primary Care Provide r Reason for Visit * Reason Comments Med Refill Encounter Details Date Type Department Care Team ([facility] st Contact Info) Description 07/24/2023 Refill [facility] MEDICINE [address] [place], [place] [phone] Caryl Biggs MD [address] [place] [address] Chronic tension-type headache, not intractable Social History [...] 11/01/2024 1:30 PM EDT Clinical Support [facility] MEDICINE [address] [place] [phone] Amanda Waldrop RN 11/10/2024 10:00 AM EDT Office Visit [facility] MEDICINE [address] [place] [phone] Kalpana Baptiste MD [address] [place] [phone] documented as of this encounter Visit Diagnoses Diagnosis Chronic tension-type headache, not intractable Chronic tension type headache documented in this encounter Additional Health Concerns Assessment Noted Time PHQ-9 Depression Total Score: 0 08/22/19 23 10:06 AM EDT documented as of this encounter Care Teams Can Worker Relationship Specialty Start Date End Date Kalpana Baptiste MD [address] [place] [phone] PCP - General Family Medicine 06/14/20 documented as of this encounter
--- OUTSIDE RECORDS SUMMARY | 2024-09-01 14:37 | XMS_ITS | Encounter Summary ---
Author Organization [employer] Address [address] [place] [address] Care Team Providers Care Refuse Driver Name Role Phone Kalpana Baptiste MD Primary Care Provide r Reason for Visit * Reason Comments Med Refill Encounter Details Date Type Department Care Team ([facility] st Contact Info) Description 07/14/2023 Refill [facility] MEDICINE [address] [place], [place] [phone] Caryl Biggs MD [address] [place] [address] Primary osteoarthritis of both knees Social History [...] Description 11/01/2024 1:30 PM EDT Clinical Support [facility] MEDICINE [address] [place] [phone] Amanda Waldrop RN 11/10/2024 10:00 AM EDT Office Visit [facility] MEDICINE [address] [place] [phone] Kalpana Baptiste MD [address] [place] [phone] documented as of this encounter Visit Diagnoses Diagnosis Primary osteoarthritis of both knees documented in this encounter Additional Health Concerns Assessment Noted Time PHQ-9 Depression Total Score: 0 08/22/19 23 10:06 AM EDT documented as of this encounter Care Teams Refuse Driver Relationship Specialty Start Date End Date Kalpana Baptiste MD [address] [place] [phone] PCP - General Family Medicine 06/14/20 documented as of this encounter
--- OUTSIDE RECORDS SUMMARY | 2024-09-01 14:37 | XMS_ITS | Encounter Summary ---
Author Organization [employer] Address [address] [place] [address] Care Team Providers Care Steelscope Operator Name Role Phone Kalpana Baptiste MD Primary Care Provide r Reason for Visit * Reason Comments Med Refill Encounter Details Date Type Department Care Team ([facility] st Contact Info) Description 07/24/2023 Refill [facility] MEDICINE [address] [place], [place] [phone] Kalpana Baptiste MD [address] [place] [address] Moderate persistent asthma without complication; Primary osteoarthritis [...] Description 11/01/2024 1:30 PM EDT Clinical Support [facility] MEDICINE [address] [place] [phone] Amanda Waldrop RN 11/10/2024 10:00 AM EDT Office Visit [facility] MEDICINE [address] [place] [phone] Kalpana Baptiste MD [address] [place] [phone] documented as of this encounter Visit Diagnoses Diagnosis Moderate persistent asthma without complication Primary osteoarthritis of both knees Chronic gout of multiple sites, unspecified cause documented in this encounter Additional Health Concerns Assessment Noted Time PHQ-9 Depression Total Score: 0 08/22/19 23 10:06 AM EDT documented as of this encounter Care Teams Steelscope Operator Relationship Specialty Start Date End Date Kalpana Baptiste MD [address] [place] [phone] PCP - General Family Medicine 06/14/20 documented as of this encounter
--- OUTSIDE RECORDS SUMMARY | 2024-09-01 14:37 | XMS_ITS | Encounter Summary ---
Author Organization [employer] Address [address] [place] [address] Care Team Providers Care Funeral Home Attendant Name Role Phone Kalpana Baptiste MD Primary Care Provide r Reason for Visit * Reason Comments Med Refill Encounter Details Date Type Department Care Team ([facility] st Contact Info) Description 07/25/2023 Refill [facility] MEDICINE 230 [place], [place] [phone] Caryl Biggs MD [address] [place] [address] Chronic tension-type headache, not intractable Social History [...] Description 11/01/2024 1:30 PM EDT Clinical Support [facility] MEDICINE [address] [place] [phone] Amanda Waldrop RN 11/10/2024 10:00 AM EDT Office Visit [facility] MEDICINE [address] [place] [phone] Kalpana Baptiste MD [address] [place] [phone] documented as of this encounter Visit Diagnoses Diagnosis Chronic tension-type headache, not intractable Chronic tension type headache documented in this encounter Additional Health Concerns Assessment Noted Time PHQ-9 Depression Total Score: 0 08/22/19 23 10:06 AM EDT documented as of this encounter Care Teams Funeral Home Attendant Relationship Specialty Start Date End Date Kalpana Baptiste MD [address] [place] [phone] PCP - General Family Medicine 06/14/20 documented as of this encounter
--- OUTSIDE RECORDS SUMMARY | 2024-09-01 14:37 | XMS_ITS | Encounter Summary ---
Author Organization [employer] Address [address] 7t [place] [address] Care Team Providers Care District Court Reporter Name Role Phone Kalpana Baptiste MD Primary Care Provide r Reason for Visit * Reason Comments Med Refill Encounter Details Date Type Department Care Team ([facility] st Contact Info) Description 08/05/2024 Refill [facility] 230 [place], [place] [phone] Caryl Biggs MD 230 [place] [address] Social History Tobacco Use Types Packs/Day Years [...] Description 11/01/2024 1:30 PM EDT Clinical Support [facility] [address] [place] [phone] Amanda Waldrop RN 11/10/2024 10:00 AM EDT Office Visit [facility] [address] [place] [address] Kalpana Baptiste MD [address] [place] [address] documented as of this encounter Visit Diagnoses Not on filedocumented in this encounter Additional Health Concerns Assessment Noted Time PHQ-9 Depression Total Score: 0 05/06/19 25 2:15 PM EST documented as of this encounter Care Teams District Court Reporter Relationship Specialty Start Date End Date Kalpana Baptiste MD [address] [place] [phone] PCP - General Family Medicine 06/14/20 documented as of this encounter
--- OUTSIDE RECORDS SUMMARY | 2024-09-01 14:37 | XMS_ITS | Encounter Summary ---
Author Organization [employer] Address [address] [facility] [address] 7t [place] [address] Care Team Providers Care Security Architect Name Role Phone Kalpana Baptiste MD Primary Care Provide r Reason for Visit * Reason Comments Med Refill Encounter Details Date Type Department Care Team ([facility] st Contact Info) Description 08/02/2024 Refill [facility] 230 [place], [place] [phone] Kalpana Baptiste MD 230 [place] [address] Primary osteoarthritis of both knees Social History [...] Description 11/01/2024 1:30 PM EDT Clinical Support [facility] [address] [place] [phone] Amanda Waldrop RN 11/10/2024 10:00 AM EDT Office Visit [facility] [address] [place] [address] [phone] Kalpana Baptiste MD [address] [place] [phone] documented as of this encounter Visit Diagnoses Diagnosis Primary osteoarthritis of both knees documented in this encounter Additional Health Concerns Assessment Noted Time PHQ-9 Depression Total Score: 0 05/06/19 25 2:15 PM EST documented as of this encounter Care Teams Security Architect Relationship Specialty Start Date End Date Kalpana Baptiste MD [address] [place] [phone] PCP - General Family Medicine 06/14/20 documented as of this encounter
--- OUTSIDE RECORDS SUMMARY | 2024-09-01 14:37 | XMS_ITS | Encounter Summary ---
Author Organization [employer] Address [address] [facility] [address] 7t [place] [address] Care Team Providers Care Commutator Undercutter Name Role Phone Kalpana Baptiste MD Primary Care Provide r Reason for Visit * Reason Comments Med Refill Encounter Details Date Type Department Care Team ([facility] st Contact Info) Description 07/25/2023 Refill [facility] MED[facility]INE 230 [place], [place] [phone] Kalpana Baptiste MD 230 [place] [address] Chronic gout of multiple sites, unspecified cause; [...] Description 11/01/2024 1:30 PM EDT Clinical Support [facility] MED[facility]INE [address] [place] [phone] Amanda Waldrop RN 11/10/2024 10:00 AM EDT Office Visit [facility] [address] [place] [address] Kalpana Baptiste MD [address] [place] [address] documented as of this encounter Visit Diagnoses Diagnosis Chronic gout of multiple sites, unspecified cause Primary osteoarthritis of both knees Moderate persistent asthma without complication documented in this encounter Additional Health Concerns Assessment Noted Time PHQ-9 Depression Total Score: 0 08/22/19 23 10:06 AM EDT documented as of this encounter Care Teams Commutator Undercutter Relationship Specialty Start Date End Date Kalpana Baptiste MD [address] [place] [address] PCP - General Family Medicine 06/14/20 documented as of this encounter
--- OUTSIDE RECORDS SUMMARY | 2024-09-01 14:38 | XMS_ITS | Encounter Summary ---
Author Organization [employer] Address [address] [facility] [address] 7t [place] [address] Care Team Providers Care Residential Living Assistant Name Role Phone Kalpana Baptiste MD Primary Care Provide r Reason for Visit * Reason Comments Med Refill Encounter Details Date Type Department Care Team ([facility] st Contact Info) Description 07/08/2023 Refill [facility] MED[facility]INE 230 [place], [place] [phone] Caryl Biggs MD 230 [place] [address] Primary osteoarthritis of both knees Social History [...] Description 11/01/2024 1:30 PM EDT Clinical Support [facility] [address] [place] [phone] Amanda Waldrop RN 11/10/2024 10:00 AM EDT Office Visit [facility] [address] [place] [phone] Kalpana Baptiste MD [address] [place] [address] documented as of this encounter Visit Diagnoses Diagnosis Primary osteoarthritis of both knees documented in this encounter Additional Health Concerns Assessment Noted Time PHQ-9 Depression Total Score: 0 08/22/19 23 10:06 AM EDT documented as of this encounter Care Teams Residential Living Assistant Relationship Specialty Start Date End Date Kalpana Baptiste MD [address] [place] [address] 34687 PCP - General Family Medicine 06/14/20 documented as of this encounter
--- OUTSIDE RECORDS SUMMARY | 2024-09-01 14:38 | XMS_ITS | Encounter Summary ---
Author Organization [employer] Address [address] 7t [place] [address] Care Team Providers Care Tumor Registrar Name Role Phone Kalpana Baptiste MD Primary Care Provide r Reason for Visit * Reason Comments Med Refill Encounter Details Date Type Department Care Team ([facility] st Contact Info) Description 07/28/2023 Refill [facility] MEDICINE 230 [place], [place] [phone] Kalpana Baptiste MD 230 [place] [address] Moderate persistent asthma without complication; Chronic gout [...] Description 11/01/2024 1:30 PM EDT Clinical Support [facility] MEDICINE [address] [place] [phone] Amanda Waldrop RN 11/10/2024 10:00 AM EDT Office Visit [facility] [address] [place] [phone] Kalpana Baptiste MD [address] [place] [address] 70071 documented as of this encounter Visit Diagnoses Diagnosis Moderate persistent asthma without complication Chronic gout of multiple sites, unspecified cause Primary osteoarthritis of both knees documented in this encounter Additional Health Concerns Assessment Noted Time PHQ-9 Depression Total Score: 0 08/22/19 23 10:06 AM EDT documented as of this encounter Care Teams Tumor Registrar Relationship Specialty Start Date End Date Kalpana Baptiste MD [address] [place] [address] 84168 PCP - General Family Medicine 06/14/20 documented as of this encounter
--- OUTSIDE RECORDS SUMMARY | 2024-09-01 14:38 | XMS_ITS | Encounter Summary ---
Author Organization [employer] Address [address] [facility] [address] 7t [place] [address] Care Team Providers Care Testing Coordinator Name Role Phone Kalpana Baptiste MD Primary Care Provide r Reason for Visit * Reason Comments Med Refill Encounter Details Date Type Department Care Team ([facility] st Contact Info) Description 07/05/2023 Refill [facility] 230 [place], [place] [phone] Caryl Biggs MD 230 [place] [address] Primary osteoarthritis of both knees Social History [...] Description 11/01/2024 1:30 PM EDT Clinical Support [facility] [address] [place] [address] [phone] Amanda Waldrop RN 11/10/2024 10:00 AM EDT Office Visit [facility] [address] [place] [address] 9[address]29 Kalpana Baptiste MD [address] [place] [address] [phone] documented as of this encounter Visit Diagnoses Diagnosis Primary osteoarthritis of both knees documented in this encounter Additional Health Concerns Assessment Noted Time PHQ-9 Depression Total Score: 0 08/22/19 23 10:06 AM EDT documented as of this encounter Care Teams Testing Coordinator Relationship Specialty Start Date End Date Kalpana Baptiste MD [address] [place] [address] [phone] PCP - General Family Medicine 06/14/20 documented as of this encounter
--- OUTSIDE RECORDS SUMMARY | 2024-09-01 14:38 | XMS_ITS | Encounter Summary ---
Author Organization [employer] Address [address] [facility] [address] 7t [place] [address] Care Team Providers Care Russian Rubber Name Role Phone Kalpana Baptiste MD Primary Care Provide r Reason for Visit * Reason Comments Med Refill Encounter Details Date Type Department Care Team ([facility] st Contact Info) Description 06/30/2023 Refill [facility] MED[facility]INE 230 [place], [place] [phone] Kalpana Baptiste MD 230 [place] [address] Heartburn Social History Tobacco Use Types Packs/Day [...] Description 11/01/2024 1:30 PM EDT Clinical Support [facility] [address] [place] [address] 580[address] Amanda Waldrop RN 11/10/2024 10:00 AM EDT Office Visit [address] [address] Kalpana Baptiste MD [address] [place] [address] 20[address] documented as of this encounter Visit Diagnoses Diagnosis Heartburn documented in this encounter Additional Health Concerns Assessment Noted Time PHQ-9 Depression Total Score: 0 08/22/19 23 10:06 AM EDT documented as of this encounter Care Teams Russian Rubber Relationship Specialty Start Date End Date Kalpana Baptiste MD [address] [place] [phone] PCP - General Family Medicine 06/14/20 documented as of this encounter
--- OUTSIDE RECORDS SUMMARY | 2024-09-01 14:38 | XMS_ITS | Encounter Summary ---
Author Organization [employer] Address [address] [facility] 7t [place] [address] Care Team Providers Care Batter Depositor Name Role Phone Kalpana Baptiste MD Primary Care Provide r Reason for Visit * Reason Comments Med Refill Encounter Details Date Type Department Care Team ([facility] Contact Info) Description 08/15/2022 Refill [facility] MED[facility]INE [address] [place] [address] [phone] Kalpana Baptiste MD 230 [place] [address] Primary osteoarthritis of both knees Social History [...] Upcoming Encounters Date Type Department Care Team ([facility] Contact Info) Description 11/01/2024 1:30 PM EDT Clinical Support [facility]INE [address] [place] [address] [phone] Amanda Waldrop RN 11/10/2024 10:00 AM EDT Office Visit [facility] 230 [place] [address] Kalpana Baptiste MD [address] [place] [address] [phone] documented as of this encounter Visit Diagnoses Diagnosis Primary osteoarthritis of both knees documented in this encounter Care Teams Batter Depositor Relationship Specialty Start Date End Date Kalpana Baptiste MD [address] [place] [address] [phone] PCP - General Family Medicine 06/14/20 documented as of this encounter
--- OUTSIDE RECORDS SUMMARY | 2024-09-01 14:38 | XMS_ITS | Encounter Summary ---
Author Organization [employer] Address [address] [facility] 7t [place] [address] Care Team Providers Care Laborer Laboratory Name Role Phone Kalpana Baptiste MD Primary Care Provide r Reason for Visit * Reason Comments Med Refill Encounter Details Date Type Department Care Team ([facility] Contact Info) Description 10/09/2022 Refill [facility] MEDICINE [address] [place] [address] [phone] Marilyn Corral MD [address] [place] [address] [phone] Moderate persistent asthma without complication Social History [...] Department Care Team ([facility] Contact Info) Description 11/01/2024 1:30 PM EDT Clinical Support [facility] [address] [place] [address] [phone] Amanda Waldrop RN 11/10/2024 10:00 AM EDT Office Visit [facility] 230 [place] [address] Kalpana Baptiste MD 230 [place] [address] documented as of this encounter Visit Diagnoses Diagnosis Moderate persistent asthma without complication documented in this encounter Additional Health Concerns Assessment Noted Time PHQ-9 Depression Total Score: 0 08/22/19 23 10:06 AM EDT documented as of this encounter Care Teams Laborer Laboratory Relationship Specialty Start Date End Date Kalpana Baptiste MD 230 [place] [address] PCP - General Family Medicine 06/14/20 documented as of this encounter
--- OUTSIDE RECORDS SUMMARY | 2024-09-01 14:38 | XMS_ITS | Encounter Summary ---
Author Organization [employer] Address [address] [facility] [address] 7t [place] [address] Care Team Providers Care Psych Nurse Name Role Phone Kalpana Baptiste MD Primary Care Provide r Encounter Details Date Type Department Care Team ([facility] st Contact Info) Description 08/29/2023 Telephone [facility] 230 [place], [place] [phone] Kalpana Baptiste MD 230 [place], [place] [phone] Social History Tobacco Use Types Packs/Day Years Used Date Smoking Tobacco: Former Cigarettes Passive Smoke Exposure: Never Smokeless Tobacco: Never Alcohol Use Standard Drinks/Week Comments Never 0 (1 standard drink = 0.6 oz pur e alcohol) Depression Answer Date Recorded Patient Health Questionnaire-9 Score 0 08/21/2022 Housing Stability Answer Date Recorded What is your housing situation today? I have nora sailnas 02/18/[address] you li [...] 11/01/2024 1:30 PM EDT Clinical Support [facility] [address] [place] [address] [phone] Amanda Waldrop RN 11/10/2024 10:00 AM EDT Office Visit [facility] [address] [place] [address] 470[address] Kalpana Baptiste MD [address] [place] [address] 76[address] documented as of this encounter Visit Diagnoses Not on filedocumented in this encounter Additional Health Concerns Assessment Noted Time PHQ-9 Depression Total Score: 0 08/22/19 23 10:06 AM EDT documented as of this encounter Care Teams Psych Nurse Relationship Specialty Start Date End Date Kalpana Baptiste MD [address] [place] [address] [phone] PCP - General Family Medicine 06/14/20 documented as of this encounter
--- OUTSIDE RECORDS SUMMARY | 2024-09-01 14:38 | XMS_ITS | Encounter Summary ---
Author Organization [employer] Address [address] [facility] 7t [place] [address] Care Team Providers Care Zoo Keeper Name Role Phone Kalpana Baptiste MD Primary Care Provide r Reason for Visit * Reason Comments Med Refill Encounter Details Date Type Department Care Team ([facility] Contact Info) Description 08/23/2022 Refill [facility] MEDICINE 230 [place], [place] [phone] Kalpana Baptiste MD 230 [place] [address] Primary osteoarthritis of both knees Social History [...] Upcoming Encounters Date Type Department Care Team ([facility] Contact Info) Description 11/01/2024 1:30 PM EDT Clinical Support [address] [address] Amanda Waldrop RN 11/10/2024 10:00 AM EDT Office Visit [address] [address] Kalpana Baptiste MD [address] [place] [address]40 documented as of this encounter Visit Diagnoses Diagnosis Primary osteoarthritis of both knees documented in this encounter Additional Health Concerns Assessment Noted Time PHQ-9 Depression Total Score: 0 08/22/19 23 10:06 AM EDT documented as of this encounter Care Teams Zoo Keeper Relationship Specialty Start Date End Date Kalpana Baptiste MD [address] [place] [phone] PCP - General Family Medicine 06/14/20 documented as of this encounter
--- OUTSIDE RECORDS SUMMARY | 2024-09-01 14:38 | XMS_ITS | Encounter Summary ---
Author Organization [employer] Address [address] [facility] [address] 7t [place] [address] Care Team Providers Care Golf Club Facer Name Role Phone Kalpana Baptiste MD Primary Care Provide r Reason for Visit * Reason Comments Med Refill Encounter Details Date Type Department Care Team ([facility] st Contact Info) Description 12/26/2023 Refill [facility] MEDICINE 230 [place], [place] [phone] Kalpana Baptiste MD 230 [place] [address] Other hyperlipidemia; Chronic gout of multiple sites, [...] Description 11/01/2024 1:30 PM EDT Clinical Support [address] [address] Amanda Waldrop RN 11/10/2024 10:00 AM EDT Office Visit [facility] MEDICINE [address] [place] [address] Kalpana Baptiste MD [address] [place] [address] [phone] documented as of this encounter Visit Diagnoses Diagnosis Other hyperlipidemia Chronic gout of multiple sites, unspecified cause Abdominal pain, epigastric Allergic rhinitis, unspecified seasonality, unspecified trigger Moderate persistent asthma without complication documented in this encounter Additional Health Concerns Assessment Noted Time PHQ-9 Depression Total Score: 0 08/22/19 23 10:06 AM EDT documented as of this encounter Care Teams Golf Club Facer Relationship Specialty Start Date End Date Kalpana Baptiste MD [address] [place] [address] 13531 PCP - General Family Medicine 06/14/20 documented as of this encounter
--- OUTSIDE RECORDS SUMMARY | 2024-09-01 14:38 | XMS_ITS | Encounter Summary ---
Author Organization [employer] Address [address] [facility] 7t [place] [address] Care Team Providers Care Risk Investigator Name Role Phone Kalpana Baptiste MD Primary Care Provide r Reason for Visit * Reason Comments Med Refill Encounter Details Date Type Department Care Team (Late Contact Info) Description 10/04/2022 Refill [facility] 505 [place], [place] [phone] Tootie Tineo ANP 230 [place], [place] [phone] Social History Tobacco Use Types Packs/Day Years [...] Upcoming Encounters Date Type Department Care Team ([facility] Contact Info) Description 11/01/2024 1:30 PM EDT Clinical Support [address] [phone] Amanda Waldrop RN 11/10/2024 10:00 AM EDT Office Visit [address] [address] Kalpana Baptiste MD 230 [place] [address] documented as of this encounter Visit Diagnoses Not on filedocumented in this encounter Additional Health Concerns Assessment Noted Time PHQ-9 Depression Total Score: 0 08/22/19 23 10:06 AM EDT documented as of this encounter Care Teams Risk Investigator Relationship Specialty Start Date End Date Kalpana Baptiste MD 230 [place] [address] PCP - General Family Medicine 06/14/20 documented as of this encounter
--- OUTSIDE RECORDS SUMMARY | 2024-09-01 14:38 | XMS_ITS | Encounter Summary ---
Author Organization [facility] Address [address] [place] [address] Care Team Providers Care Social Contact Worker Name Role Phone Kalpana Baptiste MD Primary Care Provider Encounter Details Date Type Department Care Team (Late st Contact Info) Description 01/17/2016 Orders Only [facility] [address] [address] Aylin Gunn PA [address] [place] [address] [place]ology[place] [address] Social History Tobacco Use Types Packs/Day Years [...] Care Team (Late st Contact Info) Description 02/16/2025 9:00 AM EDT Lab [facility] BMT [address] [address] 02/16/2025 10:00 AM EDT Follow-Up [address] [address] Vickie Victor NP [address] [place] [address] documented as of this encounter Visit Diagnoses Not on filedocumented in this encounter Care Teams Social Contact Worker Relationship Specialty Start Date End Date Kalpana Baptiste MD 230 [place] [address] PCP - General 11/22/20 documented as of this encounter
--- OUTSIDE RECORDS SUMMARY | 2024-09-01 14:38 | XMS_ITS | Encounter Summary ---
Author Organization [employer] Address 75 [facility] 7t [place] [address] Care Team Providers Care Production Department Supervisor Name Role Phone Kalpana Baptiste MD Primary Care Provide r Reason for Visit * Reason Comments Med Refill Encounter Details Date Type Department Care Team ([facility] Contact Info) Description 08/15/2022 Refill [facility] MEDICINE [address] [place] [address] [phone] Marilyn Corral MD 230 [place] [address] Other hyperlipidemia; Allergic rhinitis, unspecified seasonality, unspecified [...] Upcoming Encounters Date Type Department Care Team ([facility] Contact Info) Description 11/01/2024 1:30 PM EDT Clinical Support [facility] MEDICINE 230 [place] [address] Amanda Waldrop RN 11/10/2024 10:00 AM EDT Office Visit [facility] MEDICINE 230 [place] [address] Kalpana Baptiste MD 230 [place] [address] documented as of this encounter Visit Diagnoses Diagnosis Other hyperlipidemia Allergic rhinitis, unspecified seasonality, unspecified trigger Chronic tension-type headache, not intractable Chronic tension type headache Abdominal pain, epigastric documented in this encounter Care Teams Production Department Supervisor Relationship Specialty Start Date End Date Kalpana Baptiste MD [address] [place] [address] PCP - General Family Medicine 06/14/20 documented as of this encounter
--- OUTSIDE RECORDS SUMMARY | 2024-09-01 14:38 | XMS_ITS | Encounter Summary ---
Author Organization [employer] Address [address] [facility] [address] 7[address] [place] [address] Care Team Providers Care Belt Loop Cutter Name Role Phone Kalpana Baptiste MD Primary Care Provide r Reason for Visit * Reason Comments Med Refill Encounter Details Date Type Department Care Team ([facility] st Contact Info) Description 11/10/2023 Refill [facility] MEDICINE 230 [place], [place] [phone] Kalpana Baptiste MD 230 [place] [address] Social History Tobacco Use Types Packs/Day Years [...] Description 11/01/2024 1:30 PM EDT Clinical Support [facility] MEDICINE [address] [place] [phone] Amanda Waldrop RN 11/10/2024 10:00 AM EDT Office Visit [facility] [address] [place] [phone] Kalpana Baptiste MD [address] [place] [phone] documented as of this encounter Visit Diagnoses Not on filedocumented in this encounter Additional Health Concerns Assessment Noted Time PHQ-9 Depression Total Score: 0 08/22/19 23 10:06 AM EDT documented as of this encounter Care Teams Belt Loop Cutter Relationship Specialty Start Date End Date Kalpana Baptiste MD [address] [place] [phone] PCP - General Family Medicine 06/14/20 documented as of this encounter
--- OUTSIDE RECORDS SUMMARY | 2024-09-01 14:38 | XMS_ITS | Encounter Summary ---
Author Organization [employer] Address [address] 7t [place] [address] Care Team Providers Care Teacher Adventure Education Name Role Phone Kalpana Baptiste MD Primary Care Provide r Reason for Visit * Reason Onset Date Comments Med Refill 10/13/2023 Encounter Details Date Type Department Care Team ([facility] st Contact Info) Description 10/13/2023 Telephone [facility] [address] [place], [place] [phone] Kalpana Baptiste MD 230 [place] [address] Med Refill Social History Tobacco Use Types [...] 1 g tablet To be sent to: [facility] - [place], [place] - [address] [place] [address] documented in this encounter Plan of Treatment Upcoming Encounters Date Type Department Care Team (Late st Contact Info) Description 11/01/2024 1:30 PM EDT Clinical Support [facility] [address] [place] [address] Amanda Waldrop RN 11/10/2024 10:00 AM EDT Office Visit [facility] [address] [place] [address] Klapana Baptiste MD 230 [place] [address] documented as of this encounter Visit Diagnoses Not on filedocumented in this encounter Additional Health Concerns Assessment Noted Time PHQ-9 Depression Total Score: 0 08/22/19 23 10:06 AM EDT documented as of this encounter Care Teams Teacher Adventure Education Relationship Specialty Start Date End Date Kalpana Baptiste MD 230 [place] [address] PCP - General Family Medicine 06/14/20 documented as of this encounter
--- OUTSIDE RECORDS SUMMARY | 2024-09-01 14:38 | XMS_ITS | Encounter Summary ---
Author Organization [facility] Address [address] [place] [address] Care Team Providers Care Blow Mold Operator Name Role Phone Kalpana Baptiste MD Primary Care Provider Encounter Details Date Type Department Care Team (Late st Contact Info) Description 01/15/2016 Orders Only [facility] [address] [address] Aylin Gunn PA [address] [place] [address] [place]ematology[place] [address] Social History Tobacco Use Types Packs/Day Years [...] Info) Description 02/16/2025 9:00 AM EDT [facility] BMT [address] [address] 02/16/2025 10:00 AM EDT Follow-Up [address] [address] Vickie Victor NP [address] [place] [address] documented as of this encounter Visit Diagnoses Not on filedocumented in this encounter Care Teams Blow Mold Operator Relationship Specialty Start Date End Date Kalpana Baptiste MD 230 [place] [address] PCP - General 11/22/20 documented as of this encounter
--- OUTSIDE RECORDS SUMMARY | 2024-09-01 14:38 | XMS_ITS | Encounter Summary ---
Author Organization [employer] Address [address] [facility] 7t [place] [address] Care Team Providers Care Mine Development Engineer Name Role Phone Kalpana Baptiste MD Primary Care Provide r Reason for Visit * Reason Comments Med Refill Encounter Details Date Type Department Care Team ([facility] Contact Info) Description 09/03/2022 Refill [facility] 230 [place], [place] [phone] Kalpana Baptiste MD 230 [place] [address] Primary osteoarthritis of both knees Social History [...] Care Team ([facility] Contact Info) Description 11/01/2024 1:30 PM EDT Clinical Support [address] [address] Amanda Waldrop RN 11/10/2024 10:00 AM EDT Office Visit [address] [address] Kalpana Baptiste MD [address] [place] [address] documented as of this encounter Visit Diagnoses Diagnosis Primary osteoarthritis of both knees documented in this encounter Additional Health Concerns Assessment Noted Time PHQ-9 Depression Total Score: 0 08/22/19 23 10:06 AM EDT documented as of this encounter Care Teams Mine Development Engineer Relationship Specialty Start Date End Date Kalpana Baptiste MD [address] [place] [address] PCP - General Family Medicine 06/14/20 documented as of this encounter
--- OUTSIDE RECORDS SUMMARY | 2024-09-01 14:38 | XMS_ITS | Encounter Summary ---
Author Organization [employer] Address [address] 7t [place] [address] Care Team Providers Care Chief Lock Operator Name Role Phone Kalpana Baptiste MD Primary Care Provide r Reason for Visit * Reason Comments Med Refill Encounter Details Date Type Department Care Team ([facility] st Contact Info) Description 08/22/2023 Refill [facility] 230 [place], [place] [phone] Kalpana Batpiste MD 230 [place] [address] Primary osteoarthritis of both knees Social History [...] Description 11/01/2024 1:30 PM EDT Clinical Support [facility] [address] [place] [address] Amanda Waldrop RN 11/10/2024 10:00 AM EDT Office Visit [facility] [address] [place] [address] Kalpana Baptiste MD [address] [place] [address] documented as of this encounter Visit Diagnoses Diagnosis Primary osteoarthritis of both knees documented in this encounter Additional Health Concerns Assessment Noted Time PHQ-9 Depression Total Score: 0 08/22/19 23 10:06 AM EDT documented as of this encounter Care Teams Chief Lock Operator Relationship Specialty Start Date End Date Kalpana Baptiste MD [address] [place] [address] PCP - General Family Medicine 06/14/20 documented as of this encounter
--- OUTSIDE RECORDS SUMMARY | 2024-09-01 14:38 | XMS_ITS | Encounter Summary ---
Author Organization [employer] Address [address] [facility] 7t [place] [address] Care Team Providers Care Electrical Design Engineer Name Role Phone Kalpana Baptiste MD Primary Care Provide r Reason for Visit * Reason Comments Transition Of Care (Tcm) HDF unscheduled . Encounter Details Date Type Department Care Team ([facility] Contact Info) Description 08/27/2024 Patient Outreach [facility] [address] [place] [address] Kalpana Baptiste MD 230 [place] [address] Transition Of Care (Tcm) (HDF unscheduled. ) [...] * Significant Event - Mar Garcia - 08/27/2024 12:14 PM EDT 08/27/24 1211 Hospital Discharges and Admission for PCM Type of Visit Hospital Admission Date of Admission/Visit 08/19/24 Date of Discharge 08/19/24 [facility] Diagnosis Benign neoplasm of meninges, Disposition Discharged Home Follow-Up Actions Follow-Up Needed Provider appointment Follow-Up Outcome Spoke to Patient Initial Contact Date 08/27/24 CC placed outgoing call to patient to schedule HDF, Patient stated she does not need to schedule anappointment with provider as she was already seen. documented in this encounter Plan of Treatment Upcoming Encounters Date Type Department Care Team (Late st Contact Info) Description 11/01/2024 1:30 PM EDT Clinical Support [facility] [address] [place] [phone] Amanda Waldrop RN 11/10/2024 10:00 AM EDT Office Visit [facility] [address] [place] [address] Kalpana Baptiste MD 230 [place], [place] [phone] documented as of this encounter Visit Diagnoses Not on filedocumented in this encounter Additional Health Concerns Assessment Noted Time PHQ-9 Depression Total Score: 0 05/06/19 25 2:15 PM EST documented as of this encounter Care Teams Electrical Design Engineer Relationship Specialty Start Date End Date Kalpana Baptiste MD 230 [facility] [address] PCP - General Family Medicine 06/14/20 documented as of this encounter
--- OUTSIDE RECORDS SUMMARY | 2024-09-01 14:38 | XMS_ITS | Encounter Summary ---
Author Organization [employer] Address [address] 7t [place] [address] Care Team Providers Care Mechanical Maintenance Supervisor Name Role Phone Kalpana Baptiste MD Primary Care Provide r Reason for Visit * Reason Comments Med Refill Encounter Details Date Type Department Care Team ([facility] st Contact Info) Description 09/15/2023 Refill [facility] 230 [place], [place] [phone] Neida Garrett DO 230 [place] [address] Heartburn Social History Tobacco Use Types Packs/Day [...] Description 11/01/2024 1:30 PM EDT Clinical Support [facility] [address] [place] [address] Amanda Waldrop RN 11/10/2024 10:00 AM EDT Office Visit [address] [address] Kalpana Baptiste MD [address] [place] [address] documented as of this encounter Visit Diagnoses Diagnosis Heartburn documented in this encounter Additional Health Concerns Assessment Noted Time PHQ-9 Depression Total Score: 0 08/22/19 23 10:06 AM EDT documented as of this encounter Care Teams Mechanical Maintenance Supervisor Relationship Specialty Start Date End Date Kalpana Baptiste MD [address] [place] [address] PCP - General Family Medicine 06/14/20 documented as of this encounter
--- OUTSIDE RECORDS SUMMARY | 2024-09-01 14:38 | XMS_ITS | Encounter Summary ---
Author Organization [employer] Address [address] [facility] [address] 7t [place] [address] Care Team Providers Care Litharge Supervisor Name Role Phone Kalpana Baptiste MD Primary Care Provide r Reason for Visit * Reason Comments Med Refill Encounter Details Date Type Department Care Team ([facility] st Contact Info) Description 06/05/2023 Refill [facility] 230 [place], [place] [phone] Kalpana Baptiste MD 230 [place] [address] Heartburn; Chronic tension-type headache, not intractable; Primary [...] Description 11/01/2024 1:30 PM EDT Clinical Support [address] [address] Amanda Waldrop RN 11/10/2024 10:00 AM EDT Office Visit [address] [address] Kalpana Baptiste MD [address] [place] [address] documented as of this encounter Visit Diagnoses Diagnosis Heartburn Chronic tension-type headache, not intractable Chronic tension type headache Primary osteoarthritis of both knees documented in this encounter Additional Health Concerns Assessment Noted Time PHQ-9 Depression Total Score: 0 08/22/19 23 10:06 AM EDT documented as of this encounter Care Teams Litharge Supervisor Relationship Specialty Start Date End Date Kalpana Baptiste MD [address] [place] [address] PCP - General Family Medicine 06/14/20 documented as of this encounter
--- OUTSIDE RECORDS SUMMARY | 2024-09-01 14:38 | XMS_ITS | Encounter Summary ---
Author Organization [employer] Address [address] [facility] 7t [place] [address] Care Team Providers Care Test Worker Name Role Phone Kalpana Baptiste MD Primary Care Provide r Reason for Visit * Reason Comments Med Refill Encounter Details Date Type Department Care Team ([facility] Contact Info) Description 12/19/2022 Refill [facility] [address] [place] [address] [phone] Kalpana Baptiste MD [address] [place] [address] [phone] Primary osteoarthritis of both knees Social History [...] Date Type Department Care Team ([facility] Contact Info) Description 11/01/2024 1:30 PM EDT Clinical Support [facility] [address] [place] [address] Amanda Waldrop RN 11/10/2024 10:00 AM EDT Office Visit [facility] 230 [place] [address] Kalpana Baptiste MD 230 [place] [address] documented as of this encounter Visit Diagnoses Diagnosis Primary osteoarthritis of both knees documented in this encounter Additional Health Concerns Assessment Noted Time PHQ-9 Depression Total Score: 0 08/22/19 23 10:06 AM EDT documented as of this encounter Care Teams Test Worker Relationship Specialty Start Date End Date Kalpana Baptiste MD 230 [place] [address] PCP - General Family Medicine 06/14/20 documented as of this encounter
--- OUTSIDE RECORDS SUMMARY | 2024-09-01 14:38 | XMS_ITS | Encounter Summary ---
Author Organization [employer] Address [address] 7t [place] [address] Care Team Providers Care Fashion Consultant Name Role Phone Kalpana Baptiste MD Primary Care Provide r Reason for Visit * Reason Comments Med Refill Encounter Details Date Type Department Care Team ([facility] st Contact Info) Description 06/27/2023 Refill [facility] 230 [place], [place] [phone] Kalpana Baptiste MD 230 [place] [address] Heartburn Social History Tobacco Use Types Packs/Day [...] Description 11/01/2024 1:30 PM EDT Clinical Support [facility] [address] [place] [address] Amanda Waldrop RN 11/10/2024 10:00 AM EDT Office Visit [address] [address] Kalpana Baptiste MD [address] [place] [address] documented as of this encounter Visit Diagnoses Diagnosis Heartburn documented in this encounter Additional Health Concerns Assessment Noted Time PHQ-9 Depression Total Score: 0 08/22/19 23 10:06 AM EDT documented as of this encounter Care Teams Fashion Consultant Relationship Specialty Start Date End Date Kalpana Baptiste MD [address] [place] [address] PCP - General Family Medicine 06/14/20 documented as of this encounter
--- OUTSIDE RECORDS SUMMARY | 2024-09-01 14:38 | XMS_ITS | Encounter Summary ---
Author Organization [employer] Address [address] [facility] [address] 7t [place] [address] Care Team Providers Care Miller Supervisor Name Role Phone Kalpana Baptiste MD Primary Care Provide r Reason for Visit * Reason Comments Med Refill Encounter Details Date Type Department Care Team ([facility] st Contact Info) Description 09/11/2023 Refill [facility] 230 [place], [place] [phone] Kalpana Baptiste MD 230 [place] [address] Acute otitis media, unspecified otitis media type [...] Description 11/01/2024 1:30 PM EDT Clinical Support [facility] [address] [place] [address] Amanda Waldrop RN 11/10/2024 10:00 AM EDT Office Visit [facility] [address] [place] [address] Kalpana Baptiste MD [address] [place] [address] documented as of this encounter Visit Diagnoses Diagnosis Acute otitis media, unspecified otitis media type documented in this encounter Additional Health Concerns Assessment Noted Time PHQ-9 Depression Total Score: 0 08/22/19 23 10:06 AM EDT documented as of this encounter Care Teams Miller Supervisor Relationship Specialty Start Date End Date Kalpana Baptiste MD [address] [place] [address] PCP - General Family Medicine 06/14/20 documented as of this encounter
--- OUTSIDE RECORDS SUMMARY | 2024-09-01 14:38 | XMS_ITS | Encounter Summary ---
Author Organization [employer] Address [address] 7t [place] [address] Care Team Providers Care Assignment Editor Name Role Phone Kalpana Baptiste MD Primary Care Provide r Reason for Visit * Reason Comments Med Refill Encounter Details Date Type Department Care Team ([facility] st Contact Info) Description 06/29/2023 Refill [facility] 230 [place], [place] [phone] Caryl Biggs MD 230 [place] [address] Primary osteoarthritis of both knees Social History [...] Description 11/01/2024 1:30 PM EDT Clinical Support [facility] [address] [place] [address] Amanda Waldrop RN 11/10/2024 10:00 AM EDT Office Visit [facility] [address] [place] [address] Kalpana Baptiste MD [address] [place] [address] documented as of this encounter Visit Diagnoses Diagnosis Primary osteoarthritis of both knees documented in this encounter Additional Health Concerns Assessment Noted Time PHQ-9 Depression Total Score: 0 08/22/19 23 10:06 AM EDT documented as of this encounter Care Teams Assignment Editor Relationship Specialty Start Date End Date Kalpana Baptiste MD [address] [place] [address] PCP - General Family Medicine 06/14/20 documented as of this encounter
--- OUTSIDE RECORDS SUMMARY | 2024-09-01 14:38 | XMS_ITS | Encounter Summary ---
Author Organization [employer] Address [address] 7t [place] [address] Care Team Providers Care Regional Safety Manager Name Role Phone Kalpana Baptiste MD Primary Care Provide r Reason for Visit * Reason Comments Med Refill Encounter Details Date Type Department Care Team ([facility] st Contact Info) Description 07/28/2023 Refill [facility] 230 [place], [place] [phone] Caryl Biggs MD 230 [place] [address] Chronic tension-type headache, not intractable Social History [...] Description 11/01/2024 1:30 PM EDT Clinical Support [facility] [address] [place] [address] Amanda Waldrop RN 11/10/2024 10:00 AM EDT Office Visit [facility] [address] [place] [address] Kalpana Baptiste MD [address] [place] [address] documented as of this encounter Visit Diagnoses Diagnosis Chronic tension-type headache, not intractable Chronic tension type headache documented in this encounter Additional Health Concerns Assessment Noted Time PHQ-9 Depression Total Score: 0 08/22/19 23 10:06 AM EDT documented as of this encounter Care Teams Regional Safety Manager Relationship Specialty Start Date End Date Kalpana Baptiste MD [address] [place] [address] PCP - General Family Medicine 06/14/20 documented as of this encounter
--- OUTSIDE RECORDS SUMMARY | 2024-09-01 14:38 | XMS_ITS | Encounter Summary ---
Author Organization [employer] Address [address] [facility] [facility] [address] 7t [place] [address] Care Team Providers Care Family Resource Management Professor Name Role Phone Kalpana Baptiste MD Primary Care Provide r Reason for Visit * Reason Comments Med Refill Encounter Details Date Type Department Care Team ([facility] st Contact Info) Description 09/15/2023 Refill [facility] 230 [place], [place] [phone] Kalpana Baptiste MD 230 [place] [address] Chronic tension-type headache, not intractable; Dry eyes; [...] 11/01/2024 1:30 PM EDT Clinical Support [address] [address] Amanda Waldrop RN 11/10/2024 10:00 AM EDT Office Visit [address] [address] Kalpana Bapitste MD [address] [place] [address] documented as of this encounter Visit Diagnoses Diagnosis Chronic tension-type headache, not intractable Chronic tension type headache Dry eyes Unspecified tear film insufficiency Primary osteoarthritis of both knees documented in this encounter Additional Health Concerns Assessment Noted Time PHQ-9 Depression Total Score: 0 08/22/19 23 10:06 AM EDT documented as of this encounter Care Teams Family Resource Management Professor Relationship Specialty Start Date End Date Kalpana Baptiste MD [address] [place] [address] PCP - General Family Medicine 06/14/20 documented as of this encounter
--- OUTSIDE RECORDS SUMMARY | 2024-09-01 14:38 | XMS_ITS | Encounter Summary ---
Author Organization [employer] Address [address] [facility] [address] [facility] [address] 7t [place] [address] Care Team Providers Care Curriculum Coach Name Role Phone Kalpana Baptiste MD Primary Care Provide r Reason for Visit * Reason Comments Med Refill Encounter Details Date Type Department Care Team ([facility] st Contact Info) Description 08/11/2023 Refill [facility] 230 [place], [place] [phone] Kalpana Baptiste MD 230 [place] [address] Chronic gout of multiple sites, unspecified cause; [...] Description 11/01/2024 1:30 PM EDT Clinical Support [facility] MEDICINE [address] [place] [address] Amanda Waldrop RN 11/10/2024 10:00 AM EDT Office Visit [facility] [address] [place] [address] Kalpana Baptiste MD [address] [place] [address] documented as of this encounter Visit Diagnoses Diagnosis Chronic gout of multiple sites, unspecified cause Primary osteoarthritis of both knees Moderate persistent asthma without complication documented in this encounter Additional Health Concerns Assessment Noted Time PHQ-9 Depression Total Score: 0 08/22/19 23 10:06 AM EDT documented as of this encounter Care Teams Curriculum Coach Relationship Specialty Start Date End Date Kalpana Baptiste MD [address] [place] [address] PCP - General Family Medicine 06/14/20 documented as of this encounter
--- OUTSIDE RECORDS SUMMARY | 2024-09-01 14:38 | XMS_ITS | Encounter Summary ---
Author Organization [employer] Address [address] 7t [place] [address] Care Team Providers Care Lard Mixer Name Role Phone Kalpana Baptiste MD Primary Care Provide r Reason for Visit * Reason Onset Date Comments Med Refill 07/27/2024 Encounter Details Date Type Department Care Team ([facility] st Contact Info) Description 07/27/2024 Telephone [facility] MEDICINE 230 [place], [place] [phone] Kalpana Baptiste MD 230 [place] [address] Med Refill Social History Tobacco Use Types [...] encounter Miscellaneous Notes * Telephone Encounter - Merary Denis - 07/27/2024 11:58 AM EDT TC from pt requesting medication refill. Medications needing refill : traMADol (Ultram) 50 MG tablet To be sent to: [facility] - [address] documented in this encounter Plan of Treatment Upcoming Encounters Date Type Department Care Team (Late st Contact Info) Description 11/01/2024 1:30 PM EDT Clinical Support [facility] MEDICINE [address] [place] [address] Amanda Waldrop RN 11/10/2024 10:00 AM EDT Office Visit [facility]INE [address] [place] [address] Kalpana Baptiste MD 230 [place] [address] documented as of this encounter Visit Diagnoses Not on filedocumented in this encounter Additional Health Concerns Assessment Noted Time PHQ-9 Depression Total Score: 0 05/06/19 25 2:15 PM EST documented as of this encounter Care Teams Lard Mixer Relationship Specialty Start Date End Date Kalpana Baptiste MD 230 [place] [address] PCP - General Family Medicine 06/14/20 documented as of this encounter
--- OUTSIDE RECORDS SUMMARY | 2024-09-01 14:38 | XMS_ITS | Encounter Summary ---
Author Organization [employer] Address [address] 7t [place] [address] Care Team Providers Care Senior Net Developer Architect Name Role Phone Kalpana Baptiste MD Primary Care Provide r Reason for Visit * Reason Comments Med Refill Encounter Details Date Type Department Care Team ([facility] st Contact Info) Description 08/28/2023 Refill [facility]INE 230 [place], [place] [phone] Kalpana Baptiste MD 230 [place] [address] Primary osteoarthritis of both knees Social History [...] Description 11/01/2024 1:30 PM EDT Clinical Support [facility] [address] [place] [address] Amanda Waldrop RN 11/10/2024 10:00 AM EDT Office Visit [facility] [address] [place] [phone] Kalpana Baptiste MD [address] [place] [address] documented as of this encounter Visit Diagnoses Diagnosis Primary osteoarthritis of both knees documented in this encounter Additional Health Concerns Assessment Noted Time PHQ-9 Depression Total Score: 0 08/22/19 23 10:06 AM EDT documented as of this encounter Care Teams Senior Net Developer Architect Relationship Specialty Start Date End Date Kalpana Baptiste MD [address] [place] [address] PCP - General Family Medicine 06/14/20 documented as of this encounter
--- OUTSIDE RECORDS SUMMARY | 2024-09-01 14:38 | XMS_ITS | Encounter Summary ---
Author Organization [employer] Address [address] [facility] [address] 7t [place] [address] Care Team Providers Care Plunket Nurse Name Role Phone Kalpana Baptiste MD Primary Care Provide r Reason for Visit * Reason Comments Med Refill Encounter Details Date Type Department Care Team ([facility] st Contact Info) Description 09/19/2023 Refill [facility] MED[facility]INE 230 [place], [place] [phone] Kalpana Baptiste MD 230 [place] [address] Primary osteoarthritis of both knees; Chronic tension-type [...] Description 11/01/2024 1:30 PM EDT Clinical Support [address] [address] Amanda Waldrop RN 11/10/2024 10:00 AM EDT Office Visit [address] [address] Kalpana Baptiste MD [address] [place] [address] documented as of this encounter Visit Diagnoses Diagnosis Primary osteoarthritis of both knees Chronic tension-type headache, not intractable Chronic tension type headache Dry eyes Unspecified tear film insufficiency documented in this encounter Additional Health Concerns Assessment Noted Time PHQ-9 Depression Total Score: 0 08/22/19 23 10:06 AM EDT documented as of this encounter Care Teams Plunket Nurse Relationship Specialty Start Date End Date Kalpana Baptiste MD [address] [place] [phone] PCP - General Family Medicine 06/14/20 documented as of this encounter
--- OUTSIDE RECORDS SUMMARY | 2024-09-01 14:38 | XMS_ITS | Encounter Summary ---
Author Organization [employer] Address 75 [facility] 7t [place] [address] Care Team Providers Care Dope Worker Name Role Phone Kalpana Baptiste MD Primary Care Provide r Reason for Visit * Reason Comments Med Refill Encounter Details Date Type Department Care Team ([facility] Contact Info) Description 10/04/2022 Refill [facility] MEDICINE [address] [place] [address] [phone] Marilyn Corral MD [address] [place] [address] [phone] Moderate persistent asthma without complication Social History [...] Upcoming Encounters Date Type Department Care Team ([facility] Contact Info) Description 11/01/2024 1:30 PM EDT Clinical Support [facility] MEDICINE [address] [place] [address] [phone] Amanda Waldrop RN 11/10/2024 10:00 AM EDT Office Visit [facility] 230 [place] [address] Kalpana Baptiste MD [address] [place] [address] documented as of this encounter Visit Diagnoses Diagnosis Moderate persistent asthma without complication documented in this encounter Additional Health Concerns Assessment Noted Time PHQ-9 Depression Total Score: 0 08/22/19 23 10:06 AM EDT documented as of this encounter Care Teams Dope Worker Relationship Specialty Start Date End Date Kalpana Baptiste MD [address] [place] [address] PCP - General Family Medicine 06/14/20 documented as of this encounter
--- OUTSIDE RECORDS SUMMARY | 2024-09-01 14:38 | XMS_ITS | Encounter Summary ---
Author Organization [employer] Address 75 [facility] 7t [place] [address] Care Team Providers Care Roll Winder Name Role Phone Kalpana Baptiste MD Primary Care Provide r Reason for Visit * Reason Comments Med Refill Encounter Details Date Type Department Care Team ([facility] st Contact Info) Description 08/31/2024 Refill [facility] MEDICINE 230 [place], [place] [phone] Kalpana Baptiste MD 230 [place] [address] Type 2 diabetes mellitus with other specified complication, unspecified whether fci insulin use ([facility]); Heartburn Social History Tobacco Use Types Packs/Day [...] Description 11/01/2024 1:30 PM EDT Clinical Support [facility] MEDICINE [address] [place] [phone] Amanda Waldrop RN 11/10/2024 10:00 AM EDT Office Visit [facility] MEDICINE [address] [place] [phone] Kalpana Baptiste MD [address] [place] [address] documented as of this encounter Visit Diagnoses Diagnosis Type 2 diabetes mellitus with other specified complication, unspecified whether fci insulin use ([facility]) Heartburn documented in this encounter Additional Health Concerns Assessment Noted Time PHQ-9 Depression Total Score: 0 05/06/19 25 2:15 PM EST documented as of this encounter Care Teams Roll Winder Relationship Specialty Start Date End Date Kalpana Baptiste MD [address] [place] [phone] PCP - General Family Medicine 06/14/20 documented as of this encounter
--- OUTSIDE RECORDS SUMMARY | 2024-09-01 14:38 | XMS_ITS | Encounter Summary ---
Author Organization [employer] Address 75 [facility] 7t [place] [address] Care Team Providers Care Metal Model Maker Name Role Phone Kalpana Baptiste MD Primary Care Provide r Reason for Visit * Reason Comments Med Refill Encounter Details Date Type Department Care Team (Late Contact Info) Description 11/20/2022 Refill [facility] [address] [place] [phone] Abe Dial AGNP Overactive bladder Social History [...] Department Care Team (Late Contact Info) Description 11/01/2024 1:30 PM EDT Clinical Support [facility] [address] [place] [address] [phone] Amanda Waldrop RN 11/10/2024 10:00 AM EDT Office Visit [facility] [address] [place] [address] Kalpana Baptiste MD 230 [place] [address] documented as of this encounter Visit Diagnoses Diagnosis Overactive bladder Hypertonicity of bladder documented in this encounter Additional Health Concerns Assessment Noted Time PHQ-9 Depression Total Score: 0 08/22/19 23 10:06 AM EDT documented as of this encounter Care Teams Metal Model Maker Relationship Specialty Start Date End Date Kalpana Baptiste MD 230 [place] [address] PCP - General Family Medicine 06/14/20 documented as of this encounter
--- OUTSIDE RECORDS SUMMARY | 2024-09-01 14:38 | XMS_ITS | Encounter Summary ---
Author Organization [employer] Address [address] [facility] [address] 7t [place] [address] Care Team Providers Care Food And Drug Inspector Name Role Phone Kalpana Baptiste MD Primary Care Provide r Reason for Visit * Reason Comments Med Refill Encounter Details Date Type Department Care Team ([facility] st Contact Info) Description 06/09/2023 Refill [facility] MEDICINE 230 [place], [place] [phone] Kalpana Baptiste MD 230 [place] [address] Chronic tension-type headache, not intractable; Primary osteoarthritis [...] Description 11/01/2024 1:30 PM EDT Clinical Support [address] [address] Amanda Waldrop RN 11/10/2024 10:00 AM EDT Office Visit [address] [address] Kalpana Baptiste MD [address] [place] [phone] documented as of this encounter Visit Diagnoses Diagnosis Chronic tension-type headache, not intractable Chronic tension type headache Primary osteoarthritis of both knees Heartburn documented in this encounter Additional Health Concerns Assessment Noted Time PHQ-9 Depression Total Score: 0 08/22/19 23 10:06 AM EDT documented as of this encounter Care Teams Food And Drug Inspector Relationship Specialty Start Date End Date Kalpana Baptiste MD [address] [place] [phone] PCP - General Family Medicine 06/14/20 documented as of this encounter
--- OUTSIDE RECORDS SUMMARY | 2024-09-01 14:38 | XMS_ITS | Encounter Summary ---
Author Organization [employer] Address 75 [facility] 7t [place] [address] Care Team Providers Care Early Childhood Name Role Phone Kalpana Baptiste MD Primary Care Provide r Reason for Visit * Reason Comments Med Refill Encounter Details Date Type Department Care Team (Late Contact Info) Description 12/09/2022 Refill [facility] MEDICINE [address] [place] [phone] Abe Dial AGNP Indigestion; Overactive bladder Social [...] 1:30 PM EDT Clinical Support [facility] MEDICINE [address] [place] [address] Amanda Waldrop RN 11/10/2024 10:00 AM EDT Office Visit [facility] MEDICINE [address] [place] [address] Kalpana Baptiste MD 230 [place] [address] documented as of this encounter Visit Diagnoses Diagnosis Indigestion Dyspepsia and other specified disorders of function of stomach Overactive bladder Hypertonicity of bladder documented in this encounter Additional Health Concerns Assessment Noted Time PHQ-9 Depression Total Score: 0 08/22/19 23 10:06 AM EDT documented as of this encounter Care Teams Early Childhood Relationship Specialty Start Date End Date Kalpana Baptiste MD 230 [place] [address] PCP - General Family Medicine 06/14/20 documented as of this encounter
--- OUTSIDE RECORDS SUMMARY | 2024-09-01 14:38 | XMS_ITS | Encounter Summary ---
Author Organization [employer] Address 75 [facility] 7t [place] [address] Care Team Providers Care Warp Dyeing Vat Tender Name Role Phone Kalpana Baptiste MD Primary Care Provide r Reason for Visit * Reason Comments Med Refill Encounter Details Date Type Department Care Team ([facility] Contact Info) Description 12/13/2022 Refill [facility] MEDICINE [address] [place] [address] [phone] Kalpana Baptiste MD [address] [place] [address] [phone] Primary osteoarthritis of both knees Social History [...] Upcoming Encounters Date Type Department Care Team ([facility] Contact Info) Description 11/01/2024 1:30 PM EDT Clinical Support [facility] MEDICINE [address] [place] [address] Amanda Waldrop RN 11/10/2024 10:00 AM EDT Office Visit [facility] MEDICINE 230 [place] [address] Kalpana Baptiste MD 230 [place] [address] documented as of this encounter Visit Diagnoses Diagnosis Primary osteoarthritis of both knees documented in this encounter Additional Health Concerns Assessment Noted Time PHQ-9 Depression Total Score: 0 08/22/19 23 10:06 AM EDT documented as of this encounter Care Teams Warp Dyeing Vat Tender Relationship Specialty Start Date End Date Kalpana Baptiste MD 230 [place] [address] PCP - General Family Medicine 06/14/20 documented as of this encounter
--- OUTSIDE RECORDS SUMMARY | 2024-09-01 14:38 | XMS_ITS | Encounter Summary ---
Author Organization [employer] Address [address] [facility] [address] 7t [place] [address] Care Team Providers Care Campground Caretaker Name Role Phone Kalpana Baptiste MD Primary Care Provide r Reason for Visit * Reason Comments Med Refill Encounter Details Date Type Department Care Team ([facility] st Contact Info) Description 06/06/2023 Refill [facility]INE 230 [place], [place] [phone] Kalpana Baptiste MD 230 [place] [address] Primary osteoarthritis of both knees; Chronic tension-type [...] Description 11/01/2024 1:30 PM EDT Clinical Support [address] [address] Amanda Waldrop RN 11/10/2024 10:00 AM EDT Office Visit [address] [address] Kalpana Baptiste MD [address] [place] [address] documented as of this encounter Visit Diagnoses Diagnosis Primary osteoarthritis of both knees Chronic tension-type headache, not intractable Chronic tension type headache Heartburn documented in this encounter Additional Health Concerns Assessment Noted Time PHQ-9 Depression Total Score: 0 08/22/19 23 10:06 AM EDT documented as of this encounter Care Teams Campground Caretaker Relationship Specialty Start Date End Date Kalpana Baptiste MD [address] [place] [address] PCP - General Family Medicine 06/14/20 documented as of this encounter
--- OUTSIDE RECORDS SUMMARY | 2024-09-01 14:39 | XMS_ITS | Data Portability ---
Author Organization [place] [facility] Address 100 [facility] 100 [place] [address] Assessment Encounter Date Assessment Date Assessment LastModified [...] % eye drops,suspe nsion [address] [facility][id number], [address] [facility], [place], [address], 5 10:13:58 Patient TargetsNo targets recorded. 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 Procedures Surgical History Date Name Laterality Status Provider Name and Address Organization Details Recorded Time 06/07/2024 Comp Audio with Tymps (97426 & 29870) completed VANE NGUYENSHAHID, MONICA [address] [facility],[address], [address], [facility] 06/07/2024 09:35:44 Imaging Results Imaging Date Name Status LastModified by Organiz ation Details LastModified Time 06/07/2024 audiogram completed [employer] Information no t available 06/07/2024 13:28:12 Procedure Notes None recorded. Medical Equipment None Reported. Allergies Allergen ID Allergen Name Allergen Category Reaction Reaction Severity Criticality Documentation Date Start Date Code Code System Note Provider Name and Address Organization Details Recorded Time 044946 aspirin medicatio n Not available Not available Not available 06/07/2024 1191 RxNorm Suzette mathew [place] [facility] 09:58:34 837833 Product containin g penicilli n (product) medicatio n Not available Not available Not available 06/07/2024 67200 8001 SNOMED Suzette mathew [place] [facility] 09:58:43 Medications Name Sig Start Date [...] Not Available Not Available No t Available [employer] Leon Lite kit USE TEST BLOOD SUGAR TWICE [...] Updated DateTime 06/07/2024 170.18 cm 37.3 kg/m2 691336.98 g Suzette Dunlap [place] - [facility] 06/07/2024 09:58:20 Social History None recorded. [...] SNOMED-CT Code Diagnosis ICD10 Code Diagnosis Note [id number] ANKUSH CARRION MD [facility] [address] [phone] 06/07/2024 09:23:18 06/07/2024 10:19:54 Disorder of left Eustachian tube [id number] 771541 H69.92 Right Ear:Mild SNHL with good speech discrimina tion.Type A tympanogra m.Left Ear:Mild to severe MHL with good speech discrimina tion.Type B tympanogra m. Mixed cond uctive and sensorineural hearing loss of left ear [id number] 9107 H90.A32 Granulatio ns on tympanic membrane 905370744 H73.899 Health Concerns Section Related Observation LastModified by Organization Detai ls LastModified Time None Recorded Concern Status LastModified by Organization Details LastModified Time None Recorded Advance Directives Directive None Recorded Payers Encounter Date Sequence Insurance Name Policy Number Policy [place] Covered Member ID [place] Member ID Guarantor Name 06/07/2024 1 [place] [facility] Santaclaudio Denis [id number] [place] Notes Date Note Type Note [...] no sinus infections lately ANKUSH CARRION MD [address] [place] [address], [phone], [facility] - [facility] 06/17/2024 09:20:04 OBGyn Episode No OBEpisode recorded.
--- OUTSIDE RECORDS SUMMARY | 2024-09-01 14:39 | XMS_ITS | Encounter Summary ---
Author Organization [employer] Address [address] [facility] [address] 7t [place] [address] Care Team Providers Care Recovery Operator Name Role Phone Kalpana Baptiste MD Primary Care Provide r Reason for Visit * Reason Comments Med Refill Encounter Details Date Type Department Care Team ([facility] st Contact Info) Description 02/12/2024 Refill [facility] MEDICINE 230 [place], [place] [phone] Caryl Biggs MD 230 [place] [address] Primary osteoarthritis of both knees Social History [...] your housing situation today? I have nora salians 02/18/[address] you li [...] PM EDT Clinical Support [facility] MEDICINE [address] [place] [phone] Amanda Waldrop RN 11/10/2024 10:00 AM EDT Office Visit [facility] MEDICINE [address] [place] [address] Kalpana Baptiste MD [address] [place] [address] documented as of this encounter Visit Diagnoses Diagnosis Primary osteoarthritis of both knees documented in this encounter Additional Health Concerns Assessment Noted Time PHQ-9 Depression Total Score: 0 08/22/19 23 10:06 AM EDT documented as of this encounter Care Teams Recovery Operator Relationship Specialty Start Date End Date Kalpana Baptiste MD [address] [place] [address] PCP - General Family Medicine 06/14/20 documented as of this encounter
--- OUTSIDE RECORDS SUMMARY | 2024-09-01 14:39 | XMS_ITS | Encounter Summary ---
Author Organization [employer] Address [address] [facility] [address] 7t [place] [address] Care Team Providers Care Third Miller Name Role Phone Kalpana Baptiste MD Primary Care Provide r Reason for Visit * Reason Comments Med Refill Encounter Details Date Type Department Care Team ([facility] st Contact Info) Description 05/13/2024 Refill [facility] MEDICINE 230 [place], [place] [phone] Kalpana Baptiste MD 230 [place] [address] Heartburn Social History Tobacco Use Types Packs/Day [...] Description 11/01/2024 1:30 PM EDT Clinical Support [facility] MEDICINE [address] [place] [phone] Amanda Waldrop RN 11/10/2024 10:00 AM EDT Office Visit [facility] MEDICINE [address] [place] [address] Kalpana Baptiste MD [address] [place] [address] documented as of this encounter Visit Diagnoses Diagnosis Heartburn documented in this encounter Additional Health Concerns Assessment Noted Time PHQ-9 Depression Total Score: 0 05/06/19 25 2:15 PM EST documented as of this encounter Care Teams Third Miller Relationship Specialty Start Date End Date Kalpana Baptiste MD [address] [place] [address] PCP - General Family Medicine 06/14/20 documented as of this encounter
--- OUTSIDE RECORDS SUMMARY | 2024-09-01 14:39 | XMS_ITS | Encounter Summary ---
Author Organization [employer] Address [address] [facility] [address] 7t [place] [address] Care Team Providers Care Manager Environmental Health And Safety Name Role Phone Kalpana Baptiste MD Primary Care Provide r Encounter Details Date Type Department Care Team ([facility] st Contact Info) Description 02/12/2023 Abstract [facility] MEDICINE 230 [place] [address] Therese Brown Social History Tobacco Use Types [...] Description 11/01/2024 1:30 PM EDT Clinical Support [facility] MEDICINE [address] [place] [address] [phone] Amanda Waldrop RN 11/10/2024 10:00 AM EDT Office Visit [address] [phone] Kalpana Baptiste MD [address] [place] [address] [phone] documented as of this encounter Procedures Procedure Name Priority Date/Time Associated Diagnosis Comments COLONOSCOPY Routine 07/06/2015 documented in this encounter Results * Colonoscopy (07/06/2015) Colonoscopy Normal Normal Narrative Therese rBown - 07/06/2015 Recommended 5 year follow up [facility] Provider HEALTH MAINTENANCE Final Result documented in this encounter Visit Diagnoses Not on filedocumented in this encounter Additional Health Concerns Assessment Noted Time PHQ-9 Depression Total Score: 0 08/22/19 23 10:06 AM EDT documented as of this encounter Care Teams Manager Environmental Health And Safety Relationship Specialty Start Date End Date Kalpana Baptiste MD [address] [place] [address] [phone] PCP - General Family Medicine 06/14/20 documented as of this encounter
--- OUTSIDE RECORDS SUMMARY | 2024-09-01 14:39 | XMS_ITS | Encounter Summary ---
Author Organization [employer] Address 75 [facility] [address] 7t [place] [address] Care Team Providers Care Job Placement Officer Name Role Phone Kalpana Baptiste MD Primary Care Provide r Reason for Visit * Reason Comments Med Refill Encounter Details Date Type Department Care Team ([facility] st Contact Info) Description 03/23/2024 Refill [facility] MEDICINE 230 [place], [place] [phone] Kalpana Baptiste MD 230 [place] [address] Type 2 diabetes mellitus with other specified complication, unspecified whether watermelon inspector insulin use ([facility]); Primary osteoarthritis of both knees Social [...] Description 11/01/2024 1:30 PM EDT Clinical Support [facility] MEDICINE [address] [place] [address] Amanda Waldrop RN 11/10/2024 10:00 AM EDT Office Visit [facility] MEDICINE [address] [place] [phone] Kalpana Baptiste MD [address] [place] [address] documented as of this encounter Visit Diagnoses Diagnosis Type 2 diabetes mellitus with other specified complication, unspecified whether watermelon inspector insulin use ([facility]) Primary osteoarthritis of both knees documented in this encounter Additional Health Concerns Assessment Noted Time PHQ-9 Depression Total Score: 0 08/22/19 23 10:06 AM EDT documented as of this encounter Care Teams Job Placement Officer Relationship Specialty Start Date End Date Kalpana Baptiste MD [address] [place] [phone] PCP - General Family Medicine 06/14/20 documented as of this encounter
--- OUTSIDE RECORDS SUMMARY | 2024-09-01 14:39 | XMS_ITS | Clinical Summary ---
Author Organization [facility] Address [address] [place] [address] [place] [address] Phone Care Team Providers Care Graphics Intern Name Role Phone Kalpana Baptiste MD Primary [...] Visit [facility] [address] [place], [place] [address] Eben Us MD Stage 3b chronic kidney disease (HCC) (Primary Dx); Renal disorder due to type 2 diabetes mellitus <Diabetic nephropathy> (HCC); Persistent proteinuria; Essential hypertension from Last 3 Months Immunizations Immunization Administration Dates Next Due DTP / HiB [...] Office Visit [facility] [address] [address] Eben Us MD [address] [phone] Health Maintenance Due Date Last Done Comments Breast Cancer Screening 1965 Colorectal Cancer Screening: Annual FOBT 2012 Colorectal Cancer Screening: Colonoscopy 2012 Colorectal Cancer Screening: Sigmoidoscopy 2012 Diabetes: Ophthalmology Exam 06/05/2020 Diabetes: Pedal Pulse Checked 06/05/2020 Diabetes: Sensory Foot Exam 06/05/2020 Diabetes: Visual Foot Exam 06/05/2020 Pneumococcal Vaccine: 50+ Ye ars (4 of 4 - PCV20 or PCV21) 03/24/2021 03/24/2016, 03/24/2016, 08/10/2014, Additional history exists Hepatitis B Vaccine (1 of 3 - Risk 3-dose series) 2023 11/15/2014, 08/10/2014, 12/01/2013, Additional history exists Diabetes: Hemoglobin A1C 05/27/2024 024, 08/21/2022, 08/11/2017 Pneumococcal Vaccine: Peds ( 0 to 5 Years) and At-Risk Patients (6 to 49 Years) Discontinued 03/24/2016, 03/24/2016, 08/10/2014, Additional history exists Influenza [...] order comments [place] [address] * (ABNORMAL) Albumin, urine, random (07/15/2024 12:47 [...] ORDERABLES Final Re sult Performing Organization Address [facility] de Phone Number EL[place] See order comments [place] [address] * (ABNORMAL) Urinalysis with microscopic (07/15/2024 12:47 PM EDT) Color Urine Yellow See orde r comments Appearance Urine Clear See order comments pH Urine 5.0 5.0 - 9.0 See order comments Glucose Urine Negative Negative mg/dL See order comments Blood, Urine Small (1+)(A) Negative See order comments Specific [place] Urine 1.015 1.005 - 1.025 See order [...] R esult - Final Performing Organization Address [facility] de Phone Number [place] See order comments [place] [address] * (ABNORMAL) Creatinine (07/15/2024 12:28 PM EDT) Creatinine Serum 1.76(H) 0.5 - 1.4 mg/dL See order comments eGFR 29 See order comments Comment: Chronic Kidney Disease: ??Estimated GFR < 60 mL/min/1.73m2 Severe Kidney Disease: ??Estimated GFR < 15 mL/min/1.73m2 07/15/2024 12:2 8 PM EDT 07/15/2024 12:28 PM EDT Eben Us MD LAB BLOOD ORDERABLES Final Re sult Performing Organization Address [facility]/ZIP Co de Phone Number EL[place] See order comments [place] [address] * (ABNORMAL) PTH, Intact (07/15/2024 12:28 PM EDT) Parathyroid Hormone, Intact 117.4(H) 8.7 - 77.1 pg/mL See order comments 07/15/2024 12:2 8 PM EDT 07/15/2024 12:28 PM EDT Eben Us MD LAB [id number] SOLICITED RESULTS Final Result Performing Organization Address [facility] de Phone Number [place] See order comments [place] [address] * (ABNORMAL) Vitamin D 25 Hydroxy (07/15/2024 [...] order comments [place] [address] * (ABNORMAL) CBC and Differential (07/15/2024 12:28 [...] ORDERABLES Final Re sult Performing Organization Address [facility] de Phone Number GARDINER See order comments [place] [address] * (ABNORMAL) BUN (07/15/2024 12:28 PM EDT) BUN 22(H) 9 - 16 mg/dL See order comments 07/15/2024 12:2 8 PM EDT 07/15/2024 12:28 PM EDT us Eben Us MD LAB BLOOD ORDERABLES Final Re sult Performing Organization Address [facility] de Phone Number G[place]INER See order comments [place] [address] * Magnesium (07/15/2024 12:28 PM EDT) Magnesium 1.7 1.6 - 2.6 mg/dL See order comments Blood (Blood, Venous) 07/15/2024 12:28 PM EDT 07/15/2024 12:28 PM EDT us Eben Us MD LAB BLOOD ORDERABLES Final Re sult Performing Organization Address [facility] de Phone Number [place] See order comments [place] [address] * Calcium (07/15/2024 12:28 PM EDT) Calcium 9.0 8.4 - 10.2 mg/dL See order comments Blood (Blood, Venous) 07/15/2024 12:28 PM EDT 07/15/2024 12:28 PM EDT us Eben Us MD LAB BLOOD ORDERABLES Final Re sult Performing Organization Address [facility] Phone Number G[place]INER See order comments [place] [address] * Albumin (07/15/2024 12:28 PM EDT) Albumin 4.3 3.5 - 5.0 g/dL See order comments Blood (Blood, Venous) 07/15/2024 12:28 PM EDT 07/15/2024 12:28 PM EDT us Eben Us MD LAB BLOOD ORDERABLES Final Re sult Performing Organization Address [facility] Phone Number G[place]INER See order comments [place] [address] * (ABNORMAL) Electrolyte panel (07/15/2024 12:28 PM [...] ORDERABLES Final Re sult Performing Organization Address [facility] Phone Number [place]ER See order comments [place] [address] from Last 3 Months Insurance Medicaid ID Medicaid ID Care Teams Graphics Intern Relationship Specialty Start Date End Date Kalpana Baptiste MD [address] [place] [phone] PCP - General Internal Medicine 07/03/21
--- OUTSIDE RECORDS SUMMARY | 2024-09-01 14:39 | XMS_ITS | Encounter Summary ---
Author Organization [employer] Address [address] [facility] 7t [place] [address] Care Team Providers Care Welt Trimming Machine Operator Name Role Phone Kalpana Baptiste MD Primary Care Provide r Reason for Visit * Reason Comments Med Refill Encounter Details Date Type Department Care Team ([facility] Contact Info) Description 11/13/[address] [facility] [address] [place] [address] [phone] Kalpana Baptiste MD [address] [place] [address] [phone] Primary osteoarthritis of both knees Social History [...] Upcoming Encounters Date Type Department Care Team ([facility] Contact Info) Description 11/01/2024 1:30 PM EDT Clinical Support [facility] [address] [place] [phone] Amanda Waldrop RN 11/10/2024 10:00 AM EDT Office Visit [facility] [address] [place] [address] Kalpana Baptiste MD [address] [place] [address] documented as of this encounter Visit Diagnoses Diagnosis Primary osteoarthritis of both knees documented in this encounter Additional Health Concerns Assessment Noted Time PHQ-9 Depression Total Score: 0 08/22/19 23 10:06 AM EDT documented as of this encounter Care Teams Welt Trimming Machine Operator Relationship Specialty Start Date End Date Kalpana Baptiste MD [address] [place] [address] PCP - General Family Medicine 06/14/20 documented as of this encounter
--- OUTSIDE RECORDS SUMMARY | 2024-09-01 14:39 | XMS_ITS | Encounter Summary ---
Author Organization [employer] Address [address] [facility] [address] 7[address] [place] [address] Care Team Providers Care Utility Sales Representative Name Role Phone Kalpana Baptiste MD Primary Care Provide r Reason for Visit * Reason Comments Med Refill Encounter Details Date Type Department Care Team ([facility] st Contact Info) Description 02/11/2024 Refill [facility] 230 [place], [place] [phone] Caryl Biggs MD 230 [place] [address] Primary osteoarthritis of both knees Social History [...] Description 11/01/2024 1:30 PM EDT Clinical Support [facility] [address] [place] [phone] Amanda Waldrop RN 11/10/2024 10:00 AM EDT Office Visit [facility] [address] [place] [phone] Kalpana Baptiste MD [address] [place] [phone] documented as of this encounter Visit Diagnoses Diagnosis Primary osteoarthritis of both knees documented in this encounter Additional Health Concerns Assessment Noted Time PHQ-9 Depression Total Score: 0 08/22/19 23 10:06 AM EDT documented as of this encounter Care Teams Utility Sales Representative Relationship Specialty Start Date End Date Kalpana Baptiste MD [address] [place] [phone] PCP - General Family Medicine 06/14/20 documented as of this encounter
--- OUTSIDE RECORDS SUMMARY | 2024-09-01 14:39 | XMS_ITS | Encounter Summary ---
Author Organization [employer] Address [address] [facility] [address] 7t [place] [address] Care Team Providers Care Deposit Clerk Name Role Phone Kalpana Baptiste MD Primary Care Provide r Reason for Visit * Reason Comments Med Refill Encounter Details Date Type Department Care Team ([facility] st Contact Info) Description 01/28/2024 Refill [facility] 230 [place], [place] [phone] Caryl Biggs MD 230 [place] [address] Primary osteoarthritis of both knees Social History [...] Description 11/01/2024 1:30 PM EDT Clinical Support [facility] [address] [place] [phone] Amanda Waldrop RN 11/10/2024 10:00 AM EDT Office Visit [facility] [address] [place] [phone] Kalpana Baptiste MD [address] [place] [phone] documented as of this encounter Visit Diagnoses Diagnosis Primary osteoarthritis of both knees documented in this encounter Additional Health Concerns Assessment Noted Time PHQ-9 Depression Total Score: 0 08/22/19 23 10:06 AM EDT documented as of this encounter Care Teams Deposit Clerk Relationship Specialty Start Date End Date Kalpana Baptiste MD [address] [place] [phone] PCP - General Family Medicine 06/14/20 documented as of this encounter
--- OUTSIDE RECORDS SUMMARY | 2024-09-01 14:39 | XMS_ITS | Encounter Summary ---
Author Organization [employer] Address [address] [facility] [address] 7t [place] [address] Care Team Providers Care Farm Loan Representative Name Role Phone Kalpana Baptiste MD Primary Care Provide r Reason for Visit * Reason Comments Med Refill Encounter Details Date Type Department Care Team ([facility] st Contact Info) Description 02/04/2024 Refill [facility] 230 [place], [place] [phone] Caryl Biggs MD 230 [place] [address] Social History Tobacco Use Types Packs/Day Years [...] Description 11/01/2024 1:30 PM EDT Clinical Support [facility] [address] [place] [phone] Amanda Waldrop RN 11/10/2024 10:00 AM EDT Office Visit [facility] [address] [place] [phone] Kalpana Baptiste MD [address] [place] [phone] documented as of this encounter Visit Diagnoses Not on filedocumented in this encounter Additional Health Concerns Assessment Noted Time PHQ-9 Depression Total Score: 0 08/22/19 23 10:06 AM EDT documented as of this encounter Care Teams Farm Loan Representative Relationship Specialty Start Date End Date Kalpana Baptiste MD [address] [place] [phone] PCP - General Family Medicine 06/14/20 documented as of this encounter
--- OUTSIDE RECORDS SUMMARY | 2024-09-01 14:39 | XMS_ITS | Encounter Summary ---
Author Organization [employer] Address [address] [facility] 7t [place] [address] Care Team Providers Care Student Support Counselor Name Role Phone Kalpana Baptiste MD Primary Care Provide r Reason for Visit * Reason Comments Med Refill Encounter Details Date Type Department Care Team (Late Contact Info) Description 10/23/2022 Refill [facility] [address] [place], [place] [phone] Tootie Tineo ANP 230 [place], [place] [phone] Social History Tobacco Use Types Packs/Day Years [...] [facility] Info) Description 11/01/2024 1:30 PM EDT Clinical Support [address] [phone] Amanda Waldrop RN 11/10/2024 10:00 AM EDT Office Visit [address] [phone] Kalpana Baptiste MD 230 [place] [address] documented as of this encounter Visit Diagnoses Not on filedocumented in this encounter Additional Health Concerns Assessment Noted Time PHQ-9 Depression Total Score: 0 08/22/19 23 10:06 AM EDT documented as of this encounter Care Teams Student Support Counselor Relationship Specialty Start Date End Date Kalpana Baptiste MD 230 [place] [address] PCP - General Family Medicine 06/14/20 documented as of this encounter
--- OUTSIDE RECORDS SUMMARY | 2024-09-01 14:39 | XMS_ITS | Encounter Summary ---
Author Organization [employer] Address [address] [facility] [address] 7t [place] [address] Care Team Providers Care Beading Machine Operator Name Role Phone Kalpana Baptiste MD Primary Care Provide r Reason for Visit * Reason Comments Med Refill Encounter Details Date Type Department Care Team ([facility] st Contact Info) Description 03/31/[address] [facility] 230 [place], [place] [phone] Kalpana Baptiste MD 230 [place] [address] Type 2 diabetes mellitus with other specified complication, unspecified whether terminal superintendent insulin use ([facility]); Primary osteoarthritis of both knees Social [...] Description 11/01/2024 1:30 PM EDT Clinical Support [facility] [address] [place] [phone] Amanda Waldrop RN 11/10/2024 10:00 AM EDT Office Visit [facility] [address] [place] [phone] Kalpana Baptiste MD [address] [place] [phone] documented as of this encounter Visit Diagnoses Diagnosis Type 2 diabetes mellitus with other specified complication, unspecified whether terminal superintendent insulin use ([facility]) Primary osteoarthritis of both knees documented in this encounter Additional Health Concerns Assessment Noted Time PHQ-9 Depression Total Score: 0 08/22/19 23 10:06 AM EDT documented as of this encounter Care Teams Beading Machine Operator Relationship Specialty Start Date End Date Kalpana Baptiste MD [address] [place] [phone] PCP - General Family Medicine 06/14/20 documented as of this encounter
--- OUTSIDE RECORDS SUMMARY | 2024-09-01 14:39 | XMS_ITS | Encounter Summary ---
Author Organization [employer] Address [address] [facility] [address] 7t [place] [address] Care Team Providers Care Director Smb Sales Name Role Phone Kalpana Baptiste MD Primary Care Provide r Reason for Visit * Reason Comments Med Refill Encounter Details Date Type Department Care Team ([facility] st Contact Info) Description 03/23/2024 Refill [facility] 230 [place], [place] [phone] Kalpana Baptiste MD 230 [place] [address] Primary osteoarthritis of both knees; Type 2 diabetes mellitus with other specified complication, unspecified whether iron miner blasting insulin use ([facility]) Social History Tobacco Use Types Packs/Day [...] Description 11/01/2024 1:30 PM EDT Clinical Support [facility] [address] [place] [phone] Amanda Waldrop RN 11/10/2024 10:00 AM EDT Office Visit [facility] [address] [place] [phone] Kalpana Baptiste MD [address] [place] [phone] documented as of this encounter Visit Diagnoses Diagnosis Primary osteoarthritis of both knees Type 2 diabetes mellitus with other specified complication, unspecified whether iron miner blasting insulin use ([facility]) documented in this encounter Additional Health Concerns Assessment Noted Time PHQ-9 Depression Total Score: 0 08/22/19 23 10:06 AM EDT documented as of this encounter Care Teams Director Smb Sales Relationship Specialty Start Date End Date Kalpana Baptiste MD [address] [place] [phone] PCP - General Family Medicine 06/14/20 documented as of this encounter
--- OUTSIDE RECORDS SUMMARY | 2024-09-01 14:39 | XMS_ITS ---
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
--- OUTSIDE RECORDS SUMMARY | 2024-09-01 14:39 | XMS_ITS | Encounter Summary ---
Author Organization [employer] Address [address] [facility] [address] 7t [place] [address] Care Team Providers Care Wood Window And Door Craftsman Name Role Phone Kalpana Baptiste MD Primary Care Provide r Reason for Visit * Reason Comments Med Refill Encounter Details Date Type Department Care Team ([facility] st Contact Info) Description 02/02/2024 Refill [facility] [address] [place], [place] [phone] Caryl Biggs MD [address] [place] [address] Primary osteoarthritis of both knees Social History [...] 11/01/2024 1:30 PM EDT Clinical Support [facility] [address] [place] [phone] Amanda Waldrop RN 11/10/2024 10:00 AM EDT Office Visit [facility] [address] [place] [phone] Kalpana Baptiste MD [address] [place] [phone] documented as of this encounter Visit Diagnoses Diagnosis Primary osteoarthritis of both knees documented in this encounter Additional Health Concerns Assessment Noted Time PHQ-9 Depression Total Score: 0 08/22/19 23 10:06 AM EDT documented as of this encounter Care Teams Wood Window And Door Craftsman Relationship Specialty Start Date End Date Kalpana Baptiste MD [address] [place] [phone] PCP - General Family Medicine 06/14/20 documented as of this encounter
--- OUTSIDE RECORDS SUMMARY | 2024-09-01 14:39 | XMS_ITS | Encounter Summary ---
Author Organization [employer] Address [address] [facility] [address] 7t [place] [address] Care Team Providers Care Recording Artist Name Role Phone Kalpana Baptiste MD Primary Care Provide r Reason for Visit * Reason Comments Med Refill Encounter Details Date Type Department Care Team ([facility] st Contact Info) Description 02/09/2024 Refill [facility] 230 [place], [place] [phone] Caryl Biggs MD 230 [place] [address] Primary osteoarthritis of both knees Social History [...] Description 11/01/2024 1:30 PM EDT Clinical Support [facility] [address] [place] [phone] Amanda Waldrop RN 11/10/2024 10:00 AM EDT Office Visit [facility] [address] [place] [phone] Kalpana Baptiste MD [address] [place] [phone] documented as of this encounter Visit Diagnoses Diagnosis Primary osteoarthritis of both knees documented in this encounter Additional Health Concerns Assessment Noted Time PHQ-9 Depression Total Score: 0 08/22/19 23 10:06 AM EDT documented as of this encounter Care Teams Recording Artist Relationship Specialty Start Date End Date Kalpana Baptiste MD [address] [place] [phone] PCP - General Family Medicine 06/14/20 documented as of this encounter
--- OUTSIDE RECORDS SUMMARY | 2024-09-01 14:39 | XMS_ITS | Encounter Summary ---
Author Organization [employer] Address [address] [facility] [address] 7t [place] [address] Care Team Providers Care Polymer Materials Consultant Name Role Phone Kalpana Baptiste MD Primary Care Provide r Reason for Visit * Reason Comments Med Refill Encounter Details Date Type Department Care Team ([facility] st Contact Info) Description 02/18/2023 Refill [facility] 230 [place], [place] [phone] Kalpana Baptiste MD 230 [place] [address] Primary osteoarthritis of both knees Social History [...] 1:30 PM EDT Clinical Support [facility] [address] [place] [phone] Amanda Waldrop RN 11/10/2024 10:00 AM EDT Office Visit [facility] [address] [place] [phone] Kalpana Baptiste MD [address] [place] [phone] documented as of this encounter Visit Diagnoses Diagnosis Primary osteoarthritis of both knees documented in this encounter Additional Health Concerns Assessment Noted Time PHQ-9 Depression Total Score: 0 08/22/19 23 10:06 AM EDT documented as of this encounter Care Teams Polymer Materials Consultant Relationship Specialty Start Date End Date Kalpana Baptiste MD [address] [place] [phone] PCP - General Family Medicine 06/14/20 documented as of this encounter
--- OUTSIDE RECORDS SUMMARY | 2024-09-01 14:39 | XMS_ITS | Referral Summary ---
Author Organization [facility] Address [address] [place] [address] Care Team Providers Care Lehr Attendant Name Role Phone Kalpana Baptiste MD Primary Care Provider Encounters Date Type Department Care Team Description 08/17/2024 10:30 AM EDT Follow-Up [facility] [address] [place] [address] [phone] Vickie Victor NP Myelofibrosis (HCC) (Primary Dx); Chronic yooli-bypegi-yjlf disease (HCC) 08/17/2024 9:30 AM EDT Lab [facility] [address] [place] [address] [phone] Myelofibrosis (HCC) (Primary Dx); Chronic vcyrq-pfxwdc-zlkt disease (HCC) 07/27/2024 Social Work [facility] [address] [place] [address] [phone] Nan Main, JOSE Lack of access to transportation (Primary Dx); Myelofibrosis from Last 3 Months Allergies Active Allergy [...] with or without food. 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 Type 2 diabetes mellitus 03/29/2015 Acute pharyngitis 12/29/2013 Cough 06/16/2013 Chronic zszyb-oxrmgi-swyh disease 05/19/2013 Headache 03/24/2013 Dysuria 12/30/2012 Abdominal [...] Sign Reading Time Taken Comments Blood Pressure 154/88 08/17/2024 9:21 AM EDT Pulse 67 08/17/2024 9:21 AM EDT Temperature 36.7 ??C (98 ??F) 08/17/2024 9:21 AM EDT Respiratory Rate 18 08/17/2024 9:21 AM EDT Oxygen Saturation 99% 08/17/2024 9:21 AM EDT Inhaled Oxygen Concentration - - Weight 104.2 kg (229 lb 11.5 oz) 08/17/2024 9:21 AM EDT Height 166.3 cm (5' 5.47 ) 03/06/2012 1 0:46 AM EDT Body Mass Index - - Plan of Treatment Upcoming Encounters Date Type Department Care Team (Late st Contact Info) Description 02/16/2025 9:00 AM EDT Lab [facility] [address] [place] [address] 02/16/2025 10:00 AM EDT Follow-Up [facility] [address] [place] [phone] Vickie Victor NP [address] [place] [address] Procedures * Due to [place] state law, this organization might not be sharing negative HIV tests. Procedure Name Priority Date/Time Associated Diagnosis Comments LACTATE DEHYDROGENASE STAT 08/17/2024 9:19 AM EDT Myelofibrosis (HCC) URIC ACID Routine 08/17/2024 9:19 AM EDT Myelofibrosis (HCC) CBC AUTO DIFFERENTIAL STAT 08/17/2024 9:19 AM EDT Myelofibrosis (HCC) COMPREHENSIVE METABOLIC PANEL STAT 08/17/2024 9:19 AM EDT Myelofibrosis (HCC) MAGNESIUM STAT 08/17/2024 9:19 AM EDT Myelofibrosis (HCC) HEMOGLOBIN A1C Routine 08/11/2017 10:41 AM EDT History of allogeneic stem cell transplant VITAMIN D, 25-HYDROXY, TOTAL, IMMUNOASSAY Routine 08/11/2017 10:41 AM EDT History of allogeneic stem cell transplant HEPATITIS C ANTIBODY, CONVERSION Routine 08/09/2013 3:20 PM EDT HIV-1/2 ANTIGEN/ANTIBODIES 4TH GENERATION W/REFLEX Routine 08/09/2013 3:20 PM EDT PHOSPHORUS Routine 10/08/2012 3:[address] CHEST W CONTRAST Routine 08/12/2012 9 :56 PM EDT from Last 3 Months or Most Recently Relevant to Health Maintenance Results * Due to [place] state law, this organization might not be sharing negative HIV tests. * (ABNORMAL) CBC Auto Differential (08/17/2024 9:19 AM EDT) WBC 6.3 3.8 - 10.8 10*3/uL 08/17/2024 9:55 AM EDT [facility] RBC 3.42(L) 3.80 - 5.10 10*6/uL 08/17/2024 9:55 AM EDT [facility] Hemoglobin 10.2(L) 11.7 - 15.5 g/dL 08/17/2024 9:55 AM EDT [facility] Hematocrit 31.0(L) 35.0 - 45.0 % 08/17/2024 9:55 AM EDT [facility] MCV 90.6 80.0 - 100.0 fL 08/17/2024 9:55 AM EDT [facility] MCH 29.8 27.0 - 33.0 pg 08/17/2024 9:55 AM EDT [facility] MCHC 32.9 32.0 - 36.0 g/dL 08/17/2024 9:55 AM EDT [facility] RDW 14.1 11.0 - 15.0 % 08/17/2024 9:55 AM EDT [facility] Platelets 268 140 - 400 10*3/uL 08/17/2024 9:55 AM EDT [facility] MPV 9.4 7.5 - 12.5 fL 08/17/2024 9:55 AM EDT [facility] Neutrophil % 48.2 % 08/17/2024 9:55 AM EDT [facility] Immature Grans % 1.1(H) 0.0 - 0.9 % 08/17/2024 9:55 AM EDT [facility] Lymphocyte % 40.1 % 08/17/2024 9:55 AM EDT [facility] Monocyte % 9.4 % 08/17/2024 9:55 AM EDT [facility] Eosinophil % 1.0 % 08/17/2024 9:55 AM EDT [facility] Basophil % 0.2 % 08/17/2024 9:55 AM EDT [facility] Neutrophil # 3.05 1.50 - 7.80 10*3/uL 08/17/2024 9:55 AM EDT [facility] Immature Grans # 0.07(H) <=0.03 10*3/uL 08/17/2024 9:55 AM EDT [facility] Lymphocyte # 2.50 0.85 - 3.90 10*3/uL 08/17/2024 9:55 AM EDT [facility] Monocyte # 0.60 0.20 - 0.95 10*3/uL 08/17/2024 9:55 AM EDT [facility] Eosinophil # 0.10 0.02 - 0.50 10*3/uL 08/17/2024 9:55 AM EDT [facility] Basophil # <0.03 0.00 - 0.20 10*3/uL 08/17/2024 9:55 AM EDT [facility] nRBC % 0.0 /100 WBCs 08/17/2024 9:55 AM EDT [facility] nRBC # <0.01 <0.01 10*3/uL 08/17/2024 9:55 AM EDT [facility] Total Neutrophil #, Preliminary 3.05 1.50 - 7.80 10*3/uL 08/17/2024 9:55 AM EDT [facility] Blood Structure of peripheral vein / Unknown Venipuncture / Unknown 08/17/2024 9:19 AM EDT 08/17/2024 9:50 AM EDT us Aylin MORROW LAB BLOOD ORDERABLES Gabi l Result [facility] [address] [place] [address], * (ABNORMAL) Uric Acid (08/17/2024 9:19 AM EDT) Uric Acid 12.2(H) 1.9 - 7.5 mg/dL 08/17/2024 10:50 AM EDT [facility] Blood Structure of peripheral vein / Unknown Venipuncture / Unknown 08/17/2024 9:19 AM EDT 08/17/2024 9:50 AM EDT [facility] LAB BLOOD ORDERABLES Gabi l Result [facility] [address] [place] [phone], [place] * Magnesium (08/17/2024 9:19 AM EDT) MG 2.0 1.6 - 2.4 mg/dL 08/17/2024 10:50 AM EDT [facility] Blood Structure of peripheral vein / Unknown Venipuncture / Unknown 08/17/2024 9:19 AM EDT 08/17/2024 9:50 AM EDT [facility] MOR[facility] LAB BLOOD ORDERABLES Gabi l Result Performing Organization Address City/[facility]/ZIP Co de Phone Number [facility] [address] [place] [address], [place] * (ABNORMAL) Lactate Dehydrogenase (08/17/2024 9:19 AM EDT) LDH 232(H) 135 - 225 U/L 08/17/2024 10:31 AM EDT [facility] Blood Structure of peripheral vein / Unknown Venipuncture / Unknown 08/17/2024 9:19 AM EDT 08/17/2024 9:50 AM EDT [facility] M[facility] LAB BLOOD ORDERABLES Gabi l Result [facility] [address] [place] [id number], [place] * (ABNORMAL) Comprehensive Metabolic Panel (08/17/2024 9:19 AM EDT) NA 139 135 - 145 mmol/L 08/17/2024 10:50 AM EDT [facility] K 4.2 3.5 - 5.3 mmol/L 08/17/2024 10:50 AM EDT [facility] Cl 108(H) 98 - 107 mmol/L 08/17/2024 10:50 AM EDT [facility] CO2 18(L) 22 - 32 mmol/L 08/17/2024 10:50 AM EDT [facility] Anion Gap 13 5 - 15 08/17/2024 10:50 AM [employer] Glucose 113(H) 65 - 99 mg/dL 08/17/2024 10:50 AM BionovoT [facility] Creatinine 1.77(H) 0.50 - 1.20 mg/dL 08/17/2024 10:50 AM [employer] Calcium 9.4 8.6 - 10.5 mg/dL 08/17/2024 10:50 AM [employer]ion[employer] [facility] Total Protein 7.4 6.0 - 8.0 g/dL 08/17/2024 10:50 AM [employer]ion[employer] [facility] Albumin 4.3 3.5 - 5.2 g/dL 08/17/2024 10:50 AM [employer]ion[employer] [facility] Bilirubin, Total 0.3 0.2 - 1.2 mg/dL 08/17/2024 10:50 AM [employer]ionovo[employer] [facility] Alkaline Phosphatase 70 35 - 129 U/L 08/17/2024 10:50 AM [employer]ion[employer] [facility] AST 61(H) 10 - 40 U/L 08/17/2024 10:50 AM EDT [facility] ALT 107(H) 10 - 40 U/L 08/17/2024 10:50 AM [employer]ion[employer]T [facility] BUN 25(H) 7 - 23 mg/dL 08/17/2024 10:50 AM EDT [facility] eGFR 32(L) >=60 mL/min/1 .73m2 08/17/2024 10:50 AM EDT [facility] Comment:The estimated glomer ular filtration rate (eGFR) is calculated using a new formula developed by the NKF-ASN task force to eliminate race-based correction factors. The new formula uses serum/plasma creatinine, age, and gender to determine eGFR. A value below 60mls/min might indicate kidney disease and will be flagged. For additional information, see Narvaez et al, Am J Kidney Dis. 2021;79(2):268- 288, A Unifying Approach for GFR estimation: Recommendations of the NKF-ASN Task Force on Reassessing the Inclusion of Race in Diagnosing Kidney Disease . Globulin, Total 3.1 2.1 - 4.2 g/dL 08/17/2024 10:50 AM EDT [facility] A/G Ratio 1.4(L) 1.5 - 3.0 08/17/2024 10:50 AM EDT [facility] Blood Structure of peripheral vein / Unknown Venipuncture / Unknown 08/17/2024 9:19 AM EDT 08/17/2024 9:50 AM EDT us Aylin MORROW LAB BLOOD ORDERABLES Gabi acuna Result [facility] [address] [place] [address], * (ABNORMAL) Vitamin D, 25-Hydroxy, Total, Immunoassay (08/11/2017 10:41 AM EDT) Calcidiol+ercalc idiol 24(L) 30 - 100 ng/mL 08/11/2017 7:50 PM EDT [facility] Comment: Vitamin D Status ? 25-OH Vitamin D: Deficiency: ?<20 ng/mL Insufficiency: ? 20 - 29 ng/mL Optimal: ? > or = 30 ng/mL For 25-OH Vitamin D testing on patients on D2-supplementation and patients for whom quantitation of D2 and D3 fractions is required, the QuestAssureD(TM) 25-OH VIT D, (D2,D3), LC/MS/MS is recommended: order code [id number] (patients >2yrs). For more information on this test, go to: http://education.[employer].com/faq/REM757 (This link is being provided for informational/educational purposes only.) Blood specimen (specimen) Structure of peripheral vein / Unknown Venipuncture / Unknown 08/11/2017 10:41 AM EDT 08/11/2017 10:57 AM EDT Narrative [facility] - 08/11/2017 7:50 PM EDT [facility] Received Date: Aylin MORROW LAB BLOOD ORDERABLES Gabi acuna Result [facility] [address] [facility] [address], [place] [address], [facility] [address] [facility] [address], [place] [address], * (ABNORMAL) Hemoglobin A1c (08/11/2017 10:41 AM EDT) [facility] Hemoglobin A1C 5.8(H) <5.7 % of total Hgb 08/11/2017 7:12 PM EDT [facility] Comment: For someone without known diabetes, a [...] (MG/DL) 120 (calc) 08/11/2017 7:12 PM EDT [facility] eAG (MMOL/L) 6.6 (calc) 08/11/2017 7:12 PM EDT [facility] Blood specimen (specimen) Structure of peripheral vein / Unknown Venipuncture / Unknown 08/11/2017 10:41 AM EDT 08/11/2017 10:57 AM EDT Narrative [facility] - 08/11/2017 7:12 PM EDT [facility] Received Date:[id number] Aylin MORROW LAB BLOOD ORDERABLES Gabi l Result [facility] [address] [facility] [address] [facility], [place] [address], [facility] [address], [place] [address], * HEPATITIS C ANTIBODY, CONVERSION (08/09/2013 3:20 PM EDT) Hepatitis C Antibody 0.06 <1.00 [facility] HCV Interpretation Negative [facility] Comment: Not infected with HCV, unless recent infection is suspected or other evidence exists to indicate HCV infection. 08/09/2013 3:20 PM EDT 08/09/2013 4:45 PM EDT us Vivek Bernal MD PhD LAB HISTORICAL RESULTS Final Re sult [facility] [address] [place] [address], * HIV-1/2 Antigen/Antibodies 4th Generation w/Reflex (08/09/2013 3:20 PM EDT) HIV 1,2 Ab/Ag Stat NEGATIVE NEGATIVE [facility] 08/09/2013 3:20 PM EDT 08/09/2013 4:45 PM EDT us Vivek Bernal MD PhD LAB BLOOD ORDERABLES Final Resu lt Performing Organization Address City/[facility]/ZIP Co de Phone Number [facility] [address] [place] [address], [place] * Phosphorus (10/08/2012 3:00 AM EDT) Phosphorus Blood 3.6 2.5 - 4.5 mg/dL [facility] 10/08/2012 3:00 AM EDT 10/08/2012 4:14 AM EDT us Neida Sotelo LAB BLOOD ORDERABLES Final Re sult Performing Organization Address [facility] Co de Phone Number [facility] [address] [place] [phone], [place] * CT Chest W Contrast (08/12/2012 [...] Documents on File Type Date Recorded Patient Enrollment Management Director Expl anation Advance Directive 08/27/2012 12:00 AM Adva nce Care Directives Advance Directive 08/27/2012 12:00 AM Adva nce Care Directives Advance Directive 07/22/2012 12:00 AM emre Silva edical Dec Making (Adv.Dir) Care Teams Lehr Attendant Relationship Specialty Start Date End Date Kalpana Baptiste MD [address] [place] [phone] PCP - General 11/22/20
--- OUTSIDE RECORDS SUMMARY | 2024-09-01 14:39 | XMS_ITS | Encounter Summary ---
Author Organization [employer] Address [address] [facility] [address] [place] [address] Care Team Providers Care Napper Grinder Name Role Phone Kalpana Baptiste MD Primary Care Provide r Reason for Visit * Reason Comments Med Refill Encounter Details Date Type Department Care Team ([facility] Contact Info) Description 01/24/2023 Refill [facility] [address] [place] [address] [phone] Kalpana Baptiste MD [address] [place] [address] [phone] Primary osteoarthritis of both knees Social History [...] Team ([facility] Contact Info) Description 11/01/2024 1:30 PM EDT Clinical Support [facility] [address] [place] [phone] Amanda Waldrop RN 11/10/2024 10:00 AM EDT Office Visit [facility] [address] [place] [address] Kalpana Baptiste MD [address] [place] [address] documented as of this encounter Visit Diagnoses Diagnosis Primary osteoarthritis of both knees documented in this encounter Additional Health Concerns Assessment Noted Time PHQ-9 Depression Total Score: 0 08/22/19 23 10:06 AM EDT documented as of this encounter Care Teams Napper Grinder Relationship Specialty Start Date End Date Kalpana Baptiste MD [address] [place] [address] PCP - General Family Medicine 06/14/20 documented as of this encounter
--- OUTSIDE RECORDS SUMMARY | 2024-09-01 14:39 | XMS_ITS | Clinical Summary ---
Author Organization [facility] Address [address] [place] [address] Care Team Providers Care Personnel Coordinator Name Role Phone Kalpana Baptiste MD [...] 03/29/2015 Acute pharyngitis 12/29/2013 Cough 06/16/2013 Chronic mpkgk-xbolwy-vrqk disease 05/19/2013 Headache 03/24/2013 Dysuria 12/30/2012 Abdominal pain, epigastric 10/29/2012 Status post bone marrow transplant 08/27/2012 Anxiety disorder 06/24/2012 Depression 06/24/2012 Lower back pain 06/03/2012 Spleen enlargement 05/13/2012 Hypertension 03/06/2012 Asthma 03/06/2012 Hyperlipidemia 03/06/2012 Myelofibrosis 03/06/2012 Encounters Date Type Department Care Team Description 08/17/2024 10:30 AM EDT Follow-Up [facility] [address] [place] [phone] Vickie Victor, JACKELIN Myelofibrosis (HCC) (Primary Dx); Chronic xqdvn-crqjlu-xsed disease (HCC) 08/17/2024 9:30 AM EDT Lab [facility] [address] [place] [phone] Myelofibrosis (HCC) (Primary Dx); Chronic lcfcl-fhjsev-lwkb disease (HCC) 07/27/2024 Social Work [facility] [address] [place] [phone] Nan Main, HEAT PLANT SPECIALIST Lack of access to transportation (Primary Dx); Myelofibrosis from Last 3 Months Immunizations Immunization Administration Dates Next Due DTP-Haemophilus [...] Info) Description 02/16/2025 9:00 AM EDT Lab [facility] [address] [place] [address] 02/16/2025 10:00 AM EDT Follow-Up [facility] [address] [place] [address] Vickie Victor NP [address] [place] [address] Health Maintenance Due Date Last Done Comments [...] 03/24/2021 03/24/2016, 03/24/2016, 08/10/2014, Additional history exists RSV Vaccine (60+ years old a nd patients) (1 - Risk 60-74 years 1-dose series) 2023 Alcohol/Substance Use Screening 05/05/2024 Depression Screening and Follow-Up 05/05/2024 Social Drivers of Health Cindy ual Screening 05/05/2024 Mammogram 08/21/2024 08/21/2022, 02/02, 02/11/2018 COVID-19 Vaccine (5 - Modern a risk 2023- season) 2024 02/25/2024, 05/08/2021, 07/05/2020, Additional history exists Hemoglobin A1C 02/04/2025 08/05/2024, 11/03, 01/28/2023, Additional history exists Basic Metabolic Panel 02/16/2025 08/17/2024 , 05/20/2024, 05/19/2024, Additional history exists Urine Microalbumin 07/15/2025 07/15/2024, 01/24/2022 Hemoglobin 08/17/2025 08/17/2024, 06/2023, 08/06/2023, Additional history exists DTaP,Tdap,and Td Vaccines (6 [...] Additional history exists Procedures * Due to [place] [employer] law, this organization might not be sharing [...] to Health Maintenance Results * Due to [place] [employer] law, this organization might not be sharing negative HIV tests. * (ABNORMAL) CBC Auto Differential (08/17/2024 9:19 AM EDT) WBC 6.3 3.8 - 10.8 10*3/uL 08/17/2024 9:55 AM EDT [facility] RBC 3.42(L) 3.80 - 5.10 10*6/uL 08/17/2024 9:55 AM EDT [facility] Hemoglobin 10.2(L) 11.7 - 15.5 g/dL 08/17/2024 9:55 AM EDT [facility] Hematocrit 31.0(L) 35.0 - 45.0 % 08/17/2024 9:55 AM EDT [facility] MCV 90.6 80.0 - 100.0 fL 08/17/2024 9:55 AM EDT [facility] MCH 29.8 27.0 - 33.0 pg 08/17/2024 9:55 AM EDT [facility] MCHC 32.9 32.0 - 36.0 g/dL 08/17/2024 9:55 AM EDT [facility] RDW 14.1 11.0 - 15.0 % 08/17/2024 9:55 AM EDT [facility] Platelets 268 140 - 400 10*3/uL 08/17/2024 9:55 AM EDT [facility] MPV 9.4 7.5 - 12.5 fL 08/17/2024 9:55 AM EDT [facility] Neutrophil % 48.2 % 08/17/2024 9:55 AM EDT [facility] Immature Grans % 1.1(H) 0.0 - 0.9 % 08/17/2024 9:55 AM EDT [facility] Lymphocyte % 40.1 % 08/17/2024 9:55 AM EDT [facility] Monocyte % 9.4 % 08/17/2024 9:55 AM EDT [facility] Eosinophil % 1.0 % 08/17/2024 9:55 AM EDT [facility] Basophil % 0.2 % 08/17/2024 9:55 AM EDT [facility] Neutrophil # 3.05 1.50 - 7.80 10*3/uL 08/17/2024 9:55 AM EDT [facility] Immature Grans # 0.07(H) <=0.03 10*3/uL 08/17/2024 9:55 AM EDT [facility] Lymphocyte # 2.50 0.85 - 3.90 10*3/uL 08/17/2024 9:55 AM EDT [facility] Monocyte # 0.60 0.20 - 0.95 10*3/uL 08/17/2024 9:55 AM EDT [facility] Eosinophil # 0.10 0.02 - 0.50 10*3/uL 08/17/2024 9:55 AM EDT [facility] Basophil # <0.03 0.00 - 0.20 10*3/uL 08/17/2024 9:55 AM EDT [facility] nRBC % 0.0 /100 WBCs 08/17/2024 9:55 AM EDT [facility] nRBC # <0.01 <0.01 10*3/uL 08/17/2024 9:55 AM EDT [facility] Total Neutrophil #, Preliminary 3.05 1.50 - 7.80 10*3/uL 08/17/2024 9:55 AM EDT [facility] Blood Structure of peripheral vein / Unknown Venipuncture / Unknown 08/17/2024 9:19 AM EDT 08/17/2024 9:50 AM EDT [facility] LAB BLOOD ORDERABLES Gabi l Result Performing Organization Address City/[facility]/ZIP Co de Phone Number [facility] [address] [place] [address], * (ABNORMAL) Uric Acid (08/17/2024 9:19 AM EDT) Uric Acid 12.2(H) 1.9 - 7.5 mg/dL 08/17/2024 10:50 AM EDT [facility] Blood Structure of peripheral vein / Unknown Venipuncture / Unknown 08/17/2024 9:19 AM EDT 08/17/2024 9:50 AM EDT A[facility] MOR[facility] LAB BLOOD ORDERABLES Gabi l Result Performing Organization Address [facility] Co de Phone Number [facility] [address] [place] [address], [place] * Magnesium (08/17/2024 9:19 AM EDT) MG 2.0 1.6 - 2.4 mg/dL 08/17/2024 10:50 AM EDT [facility] Blood Structure of peripheral vein / Unknown Venipuncture / Unknown 08/17/2024 9:19 AM EDT 08/17/2024 9:50 AM EDT A[facility]in MORROW LAB BLOOD ORDERABLES Gabi l Result [facility] [address] [place] [address], [place] * (ABNORMAL) Lactate Dehydrogenase (08/17/2024 9:19 AM EDT) LDH 232(H) 135 - 225 U/L 08/17/2024 10:31 AM EDT [facility] Blood Structure of peripheral vein / Unknown Venipuncture / Unknown 08/17/2024 9:19 AM EDT 08/17/2024 9:50 AM EDT us Aylin MORROW LAB BLOOD ORDERABLES Gabi l Result [facility] [address] [place] [address], * (ABNORMAL) Comprehensive Metabolic Panel (08/17/2024 9:19 AM EDT) NA 139 135 - 145 mmol/L 08/17/2024 10:50 AM EDT [facility] K 4.2 3.5 - 5.3 mmol/L 08/17/2024 10:50 AM EDT [facility] Cl 108(H) 98 - 107 mmol/L 08/17/2024 10:50 AM EDT [facility] CO2 18(L) 22 - 32 mmol/L 08/17/2024 10:50 AM EDT [facility] Anion Gap 13 5 - 15 08/17/2024 10:50 AM EDT [facility] Glucose 113(H) 65 - 99 mg/dL 08/17/2024 10:50 AM EDT [facility] Creatinine 1.77(H) 0.50 - 1.20 mg/dL 08/17/2024 10:50 AM EDT [facility] Calcium 9.4 8.6 - 10.5 mg/dL 08/17/2024 10:50 AM EDT [facility] Total Protein 7.4 6.0 - 8.0 g/dL 08/17/2024 10:50 AM EDT [facility] Albumin 4.3 3.5 - 5.2 g/dL 08/17/2024 10:50 AM EDT [facility] Bilirubin, Total 0.3 0.2 - 1.2 mg/dL 08/17/2024 10:50 AM EDT [facility] Alkaline Phosphatase 70 35 - 129 U/L 08/17/2024 10:50 AM EDT [facility] AST 61(H) 10 - 40 U/L 08/17/2024 10:50 AM EDT [facility] ALT 107(H) 10 - 40 U/L 08/17/2024 10:50 AM EDT [facility] BUN 25(H) 7 - 23 mg/dL 08/17/2024 10:50 AM EDT [facility] eGFR 32(L) >=60 mL/min/1 .73m2 08/17/2024 10:50 AM EDT [facility] Comment:The estimated glomer ular [...] - 4.2 g/dL 08/17/2024 10:50 AM EDT [facility] A/G Ratio 1.4(L) 1.5 - 3.0 08/17/2024 10:50 AM EDT [facility] Blood Structure of peripheral vein / Unknown Venipuncture / Unknown 08/17/2024 9:19 AM EDT 08/17/2024 9:50 AM EDT Aylin MORROW LAB BLOOD ORDERABLES Gabi acuna Result [employer] [facility] [address] [place] [address], * (ABNORMAL) Vitamin D, 25-Hydroxy, Total, Immunoassay (08/11/2017 10:41 AM EDT) Calcidiol+ercalc idiol 24(L) 30 - 100 ng/mL 08/11/2017 7:50 PM EDT [facility] Comment: Vitamin D Status ? 25-OH Vitamin D: Deficiency: ?<20 ng/mL Insufficiency: ? 20 - 29 ng/mL Optimal: ? > or = 30 ng/mL For 25-OH Vitamin D testing on patients on D2-supplementation and patients for whom quantitation of D2 and D3 fractions is required, the QuestAssureD(TM) 25-OH VIT D, (D2,D3), LC/MS/MS is recommended: order code [id number] (patients >2yrs). For more information on this test, go to: http://education.amcure/faq/OZE028 (This link is being provided for informational/educational purposes only.) Blood specimen (specimen) Structure of peripheral vein / Unknown Venipuncture / Unknown 08/11/2017 10:41 AM EDT 08/11/2017 10:57 AM EDT Narrative [facility] - 08/11/2017 7:50 PM EDT [facility] Received Date: us Aylin MORROW LAB BLOOD ORDERABLES Gabi l Result [facility] [address] [facility] 3rd Floor, [place] [address], [place] [phone] [employer] [facility] [address] [facility] 3rd Floor, [place] [address], [place] [phone] * (ABNORMAL) Hemoglobin A1c (08/11/2017 10:41 AM EDT) Hemoglobin A1C 5.8(H) <5.7 % of total Hgb 08/11/2017 7:12 PM EDT [facility] Comment: For someone without known diabetes, a [...] (MG/DL) 120 (calc) 08/11/2017 7:12 PM EDT [facility] eAG (MMOL/L) 6.6 (calc) 08/11/2017 7:12 PM EDT [facility] Blood specimen (specimen) Structure of peripheral vein / Unknown Venipuncture / Unknown 08/11/2017 10:41 AM EDT 08/11/2017 10:57 AM EDT Narrative [facility] - 08/11/2017 7:12 PM EDT [facility] Received Date:[id number] Aylin MORROW LAB BLOOD ORDERABLES Gabi l Result [facility] [address] [facility] [address] [facility], [place] [address], [facility] [address], [place] [address], * HEPATITIS C ANTIBODY, CONVERSION (08/09/2013 3:20 PM EDT) Pathologist [facility] Hepatitis C Antibody 0.06 <1.00 [facility] HCV Interpretation Negative [facility] Comment: Not infected with HCV, unless recent infection is suspected or other evidence exists to indicate HCV infection. 08/09/2013 3:20 PM EDT 08/09/2013 4:45 PM EDT us Vivek Bernal MD PhD LAB HISTORICAL RESULTS Final Re sult Performing Organization Address City/[facility]/ZIP Co de Phone Number [facility] [address] [place] [address], [place] * HIV-1/2 Antigen/Antibodies 4th Generation w/Reflex (08/09/2013 3:20 PM EDT) HIV 1,2 Ab/Ag Stat NEGATIVE NEGATIVE [facility] 08/09/2013 3:20 PM EDT 08/09/2013 4:45 PM EDT us Vivek Bernal MD PhD LAB BLOOD ORDERABLES Final Resu lt Performing Organization Address [facility] Co de Phone Number [facility] [address] [place] [address], [place] * Phosphorus (10/08/2012 3:00 AM EDT) Phosphorus Blood 3.6 2.5 - 4.5 mg/dL [facility] 10/08/2012 3:00 AM EDT 10/08/2012 4:14 AM EDT us Neida Sotelo LAB BLOOD ORDERABLES Final Re sult Performing Organization Address [facility] Co de Phone Number [facility] [address] [place] [address], [place] * CT Chest W Contrast (08/12/2012 [...] IV POWER INJ us Historical Conversion Provider IM CT PROCEDURES Final Result from Last 3 Months or Most Recently Relevant to Health Maintenance Insurance [address] [place] [address] Advance Directives Documents on File Type Date Recorded Patient Tub Tender Expl anation Advance Directive 08/27/2012 12:00 AM Adva nce Care Directives Advance Directive 08/27/2012 12:00 AM Adva nce Care Directives Advance Directive 07/22/2012 12:00 AM emre [email or web address] Dec Making (Adv.Dir) Care Teams Personnel Coordinator Relationship Specialty Start Date End Date Kalpana Baptiste MD [address] [place] [address] PCP - General 11/22/20
--- OUTSIDE RECORDS SUMMARY | 2024-09-01 14:39 | XMS_ITS | Encounter Summary ---
Author Organization [employer] Address [address] [facility] [address] [place] [address] Care Team Providers Care Silk Opener Name Role Phone Kalpana Baptiste MD Primary Care Provide r Reason for Visit * Reason Comments Med Refill Encounter Details Date Type Department Care Team ([facility] st Contact Info) Description 03/29/2024 Refill [facility] MEDICINE [address] [place], [place] [phone] Kalpana Baptiste MD [address] [place] [address] Type 2 diabetes mellitus with other specified complication, unspecified whether intermediate accountant insulin use ([facility]); Primary osteoarthritis of both knees Social [...] 1:30 PM EDT Clinical Support [facility] MEDICINE [address] [place] [phone] Amanda Waldrop RN 11/10/2024 10:00 AM EDT Office Visit [facility] MEDICINE [address] [place] [phone] Kalpana Baptiste MD [address] [place] [phone] documented as of this encounter Visit Diagnoses Diagnosis Type 2 diabetes mellitus with other specified complication, unspecified whether intermediate accountant insulin use ([facility]) Primary osteoarthritis of both knees documented in this encounter Additional Health Concerns Assessment Noted Time PHQ-9 Depression Total Score: 0 08/22/19 23 10:06 AM EDT documented as of this encounter Care Teams Silk Opener Relationship Specialty Start Date End Date Kalpana Baptiste MD [address] [place] [phone] PCP - General Family Medicine 06/14/20 documented as of this encounter
--- OUTSIDE RECORDS SUMMARY | 2024-09-01 14:39 | XMS_ITS | Encounter Summary ---
Author Organization [employer] Address [address] [facility] [facility] [address] [place] [address] Care Team Providers Care Gas Station Operator Name Role Phone Kalpana Baptiste MD Primary Care Provide r Reason for Visit * Reason Comments Med Refill Encounter Details Date Type Department Care Team ([facility] st Contact Info) Description 02/18/2024 Refill [facility] MEDICINE [address] [place], [place] [phone] Caryl Biggs MD [address] [place] [address] Primary osteoarthritis of both knees Social History [...] Description 11/01/2024 1:30 PM EDT Clinical Support [facility] MEDICINE [address] [place] [phone] Amanda Waldrop RN 11/10/2024 10:00 AM EDT Office Visit [facility] MEDICINE [address] [place] [phone] Kalpana Baptiste MD [address] [place] [phone] documented as of this encounter Visit Diagnoses Diagnosis Primary osteoarthritis of both knees documented in this encounter Additional Health Concerns Assessment Noted Time PHQ-9 Depression Total Score: 0 08/22/19 23 10:06 AM EDT documented as of this encounter Care Teams Gas Station Operator Relationship Specialty Start Date End Date Kalpana Baptiste MD [address] [place] [phone] PCP - General Family Medicine 06/14/20 documented as of this encounter
--- OUTSIDE RECORDS SUMMARY | 2024-09-01 14:40 | XMS_ITS | Encounter Summary ---
Author Organization [employer] Address [address] [facility] [address] [place] [address] Care Team Providers Care Sand Slinger Name Role Phone Kalpana Baptiste MD Primary Care Provide r Reason for Visit * Reason Comments Med Refill Encounter Details Date Type Department Care Team ([facility] st Contact Info) Description 07/06/2024 Refill [facility] MEDICINE [address] [place], [place] [phone] Kalpana Baptiste MD [address] [place] [address] Primary osteoarthritis of both knees Social History [...] PM EDT Clinical Support [facility] MEDICINE [address] [place] [phone] Amanda Waldrop RN 11/10/2024 10:00 AM EDT Office Visit [facility] MEDICINE [address] [place] [phone] Kalpana Baptiste MD [address] [place] [phone] documented as of this encounter Visit Diagnoses Diagnosis Primary osteoarthritis of both knees documented in this encounter Additional Health Concerns Assessment Noted Time PHQ-9 Depression Total Score: 0 05/06/19 25 2:15 PM EST documented as of this encounter Care Teams Sand Slinger Relationship Specialty Start Date End Date Kalpana Baptiste MD [address] [place] [phone] PCP - General Family Medicine 06/14/20 documented as of this encounter
--- OUTSIDE RECORDS SUMMARY | 2024-09-01 14:40 | XMS_ITS | Encounter Summary ---
Author Organization [employer] Address [address] [facility] 7t [place] [address] Care Team Providers Care Sales Operations Consultant Name Role Phone Kalpana Baptiste MD Primary Care Provide r Encounter Details Date Type Department Care Team (Latest Contact Info) Description 06/07/2020 Abstract [facility] CONVERSIONS Dental, Provider, DDS Social [...] Care Team ( st Contact Info) Description 11/01/2024 1:30 PM EDT Clinical Support [facility] MEDICINE [address] [place] [phone] Amanda Waldrop RN 11/10/2024 10:00 AM EDT Office Visit [facility] MEDICINE [address] [place] [phone] Kalpana Baptiste MD [address] [place] [phone] documented as of this encounter Visit Diagnoses Not on filedocumented in this encounter Care Teams Sales Operations Consultant Relationship Specialty Start Date End Date Kalpana Baptiste MD [address] [place] [address] [phone] PCP - General Family Medicine 06/14/20 documented as of this encounter
--- OUTSIDE RECORDS SUMMARY | 2024-09-01 14:40 | XMS_ITS | Encounter Summary ---
Author Organization [employer] Address [address] [facility] [address] [place] [address] Care Team Providers Care Railroad Construction Director Name Role Phone Kalpana Baptiste MD Primary Care Provide r Reason for Visit * Reason Comments Med Refill Encounter Details Date Type Department Care Team ([facility] st Contact Info) Description 05/14/2023 Refill [facility] [address] [place], [place] [phone] Kalpana Baptiste MD [address] [place] [address] Primary osteoarthritis of both knees; Heartburn Social [...] 11/01/2024 1:30 PM EDT Clinical Support [facility] [address] [place] [phone] Amanda Waldrop RN 11/10/2024 10:00 AM EDT Office Visit [facility] [address] [place] [phone] Kalpana Baptiste MD [address] [place] [phone] documented as of this encounter Visit Diagnoses Diagnosis Primary osteoarthritis of both knees Heartburn documented in this encounter Additional Health Concerns Assessment Noted Time PHQ-9 Depression Total Score: 0 08/22/19 23 10:06 AM EDT documented as of this encounter Care Teams Railroad Construction Director Relationship Specialty Start Date End Date Kalpana Baptiste MD [address] [place] [phone] PCP - General Family Medicine 06/14/20 documented as of this encounter
--- OUTSIDE RECORDS SUMMARY | 2024-09-01 14:40 | XMS_ITS | Encounter Summary ---
Author Organization [employer] Address [address] [facility] [address] [place] [address] Care Team Providers Care Ladle Repairer Name Role Phone Kalpana Baptiste MD Primary Care Provide r Reason for Visit * Reason Comments Med Refill Encounter Details Date Type Department Care Team ([facility] st Contact Info) Description 04/16/2023 Refill [facility] MEDICINE [address] [place], [place] [phone] Kalpana Baptiste MD [address] [place] [address] Chronic tension-type headache, not intractable Social History [...] 11/01/2024 1:30 PM EDT Clinical Support [facility] MEDICINE [address] [place] [phone] Amanda Waldrop RN 11/10/2024 10:00 AM EDT Office Visit [facility] MEDICINE [address] [place] [phone] Kalpana Baptiste MD [address] [place] [phone] documented as of this encounter Visit Diagnoses Diagnosis Chronic tension-type headache, not intractable Chronic tension type headache documented in this encounter Additional Health Concerns Assessment Noted Time PHQ-9 Depression Total Score: 0 08/22/19 23 10:06 AM EDT documented as of this encounter Care Teams Ladle Repairer Relationship Specialty Start Date End Date Kalpana Baptiste MD [address] [place] [phone] PCP - General Family Medicine 06/14/20 documented as of this encounter
--- OUTSIDE RECORDS SUMMARY | 2024-09-01 14:40 | XMS_ITS | Encounter Summary ---
Author Organization [employer] Address [address] [address] [place] [address] Care Team Providers Care Line Staker Name Role Phone Kalpana Baptiste MD Primary Care Provide r Reason for Visit * Reason Onset Date Comments Med Refill 06/03/2023 Encounter Details Date Type Department Care Team ([facility] st Contact Info) Description 06/03/2023 Telephone [facility] MEDICINE [address] [place], [place] [phone] Kalpana Baptiste MD [address] [place] [address] Med Refill Social History Tobacco Use Types [...] Metformin 500 mg To be sent to: [facility] [place], [place] - [address] [place] [address] documented in this encounter Plan of Treatment Upcoming Encounters Date Type Department Care Team (Late st Contact Info) Description 11/01/2024 1:30 PM EDT Clinical Support [facility] MEDICINE [address] [place] [phone] Amanda Waldrop RN 11/10/2024 10:00 AM EDT Office Visit [facility] MEDICINE [address] [place] [phone] Kalpana Baptiste MD [address] [place] [address] documented as of this encounter Visit Diagnoses Not on filedocumented in this encounter Additional Health Concerns Assessment Noted Time PHQ-9 Depression Total Score: 0 08/22/19 23 10:06 AM EDT documented as of this encounter Care Teams Line Staker Relationship Specialty Start Date End Date Kalpana Baptiste MD [address] [place] [address] PCP - General Family Medicine 06/14/20 documented as of this encounter
--- OUTSIDE RECORDS SUMMARY | 2024-09-01 14:40 | XMS_ITS | Encounter Summary ---
Author Organization [employer] Address [address] [place] [address] Care Team Providers Care Sonar Technician Name Role Phone Kalpana Baptiste MD Primary Care Provide r Reason for Visit * Reason Comments Med Refill Encounter Details Date Type Department Care Team ([facility] st Contact Info) Description 05/15/2023 Refill [facility] [address] [place], [place] [phone] Kalpana Baptiste MD [address] [place] [phone] Primary osteoarthritis of both knees; Heartburn Social [...] PM EDT Clinical Support [facility] [address] [place] [phone] Amanda Waldrop RN 11/10/2024 10:00 AM EDT Office Visit [facility] [address] [place] [phone] Kalpana Baptiste MD [address] [place] [phone] documented as of this encounter Visit Diagnoses Diagnosis Primary osteoarthritis of both knees Heartburn documented in this encounter Additional Health Concerns Assessment Noted Time PHQ-9 Depression Total Score: 0 08/22/19 23 10:06 AM EDT documented as of this encounter Care Teams Sonar Technician Relationship Specialty Start Date End Date Kalpana Baptiste MD [address] [place] [phone] PCP - General Family Medicine 06/14/20 documented as of this encounter
--- OUTSIDE RECORDS SUMMARY | 2024-09-01 14:40 | XMS_ITS | Encounter Summary ---
Author Organization [employer] Address [address] [place] [address] Care Team Providers Care Mushroom Spawn Maker Name Role Phone Kalpana Baptiste MD Primary Care Provide r Reason for Visit * Reason Comments Med Refill Encounter Details Date Type Department Care Team ([facility] st Contact Info) Description 04/21/2023 Refill [facility] [address] [place], [place] [phone] Kalpana Baptiste MD [address] [place] [phone] Primary osteoarthritis of both knees Social History [...] 1:30 PM EDT Clinical Support [facility] [address] [place] [phone] Amanda Waldrop RN 11/10/2024 10:00 AM EDT Office Visit [facility] [address] [place] [phone] Kalpana Baptiste MD [address] [place] [phone] documented as of this encounter Visit Diagnoses Diagnosis Primary osteoarthritis of both knees documented in this encounter Additional Health Concerns Assessment Noted Time PHQ-9 Depression Total Score: 0 08/22/19 23 10:06 AM EDT documented as of this encounter Care Teams Mushroom Spawn Maker Relationship Specialty Start Date End Date Kalpana Baptiste MD [address] [place] [phone] PCP - General Family Medicine 06/14/20 documented as of this encounter
--- OUTSIDE RECORDS SUMMARY | 2024-09-01 14:40 | XMS_ITS | Encounter Summary ---
Author Organization [email or web address] Address [address] [place] [address] Care Team Providers Care Vice President Medical Affairs Name Role Phone Kalpana Baptiste MD Primary Care Provide r Reason for Visit * Reason Comments Med Refill Encounter Details Date Type Department Care Team ([facility] st Contact Info) Description 03/07/2023 Refill [facility] [address] [place], [place] [phone] Kalpana Baptiste MD [address] [place] [phone] Primary osteoarthritis of both knees; Chronic tension-type [...] 11/01/2024 1:30 PM EDT Clinical Support [facility] [address] [place] [phone] Amanda Waldrop RN 11/10/2024 10:00 AM EDT Office Visit [facility] [address] [place] [phone] Kalpana Baptiste MD [address] [place] [phone] documented as of this encounter Visit Diagnoses Diagnosis Primary osteoarthritis of both knees Chronic tension-type headache, not intractable Chronic tension type headache documented in this encounter Additional Health Concerns Assessment Noted Time PHQ-9 Depression Total Score: 0 08/22/19 23 10:06 AM EDT documented as of this encounter Care Teams Vice President Medical Affairs Relationship Specialty Start Date End Date Kalpana Baptiste MD [address] [place] [phone] PCP - General Family Medicine 06/14/20 documented as of this encounter
--- OUTSIDE RECORDS SUMMARY | 2024-09-01 14:40 | XMS_ITS | Encounter Summary ---
Author Organization [employer] Address [address] [place] [address] Care Team Providers Care Pilot Control Operator Name Role Phone Kalpana Baptiste MD Primary Care Provide r Reason for Visit * Reason Comments Med Refill Encounter Details Date Type Department Care Team ([facility] st Contact Info) Description 05/14/2023 Refill [facility] [address] [place], [place] [phone] Marilyn Corral MD [address] [place], [place] [phone] Type 2 diabetes mellitus with other specified complication, unspecified whether intermediate card tender insulin use ([facility]) Social History Tobacco Use Types [...] Description 11/01/2024 1:30 PM EDT Clinical Support [address] [phone] Amanda Waldrop RN 11/10/2024 10:00 AM EDT Office Visit [address] [phone] Kalpana Baptiste MD [address] [place] [phone] documented as of this encounter Visit Diagnoses Diagnosis Type 2 diabetes mellitus with other specified complication, unspecified whether intermediate card tender insulin use ([facility]) documented in this encounter Additional Health Concerns Assessment Noted Time PHQ-9 Depression Total Score: 0 08/22/19 23 10:06 AM EDT documented as of this encounter Care Teams Pilot Control Operator Relationship Specialty Start Date End Date Kalpana Baptiste MD [address] [place] [phone] PCP - General Family Medicine 06/14/20 documented as of this encounter
--- OUTSIDE RECORDS SUMMARY | 2024-09-01 14:40 | XMS_ITS | Clinical Summary ---
Author Organization [employer] Address [address] [facility] [address] [place] [address] Care Team Providers Care Bulk System Operator Name Role Phone Kalpana Baptiste [...] tablet Take 1 tablet by mouth. Active citalopram (CeleXA) 10 MG [...] Take 1 mg by mouth at bedtime. 018 Active tolterodine LA (Detrol LA) 4 MG 24 hr capsuleIndication s:Overactive bladder Take 1 capsule (4 mg) by mouth in the morning. 90 capsule 1 023 Active melatonin 3 MG tablet TAKE 1 TABLET BY MOUTH EVERY DAY AT BEDTIME FOR SLEEP 023 Active dicyclomine (Bentyl) 20 MG tablet TAKE 1 TABLET BY MOUTH FOUR TIMES A DAY NEEDED ABDOMINAL PAIN 023 Active cefuroxime (Ceftin) 500 MG tablet Take 500 mg by mouth 2 times daily. 023 Active ondansetron ODT (Zofran-ODT) 4 MG disintegrating tablet DISSOLVE 1 TABLET BY MOUTH EVERY 8 HOURS NEEDED FOR NAUSEA AND VOMITING 023 Active Acetaminophen Extra Strength 500 MG tabletIndications :Chronic tension-type headache, not intractable TAKE ONE TO TWO TABLETS BY MOUTH THREE TIMES A DAY NEEDED . MAXIMUM DAILY DOSE OF 6 TABLETS / 24 HOURS. (VIAL) 100 tablet 1 024 Active Blood Glucose Monitoring Suppl ([employer] Lite) w/Device kitIndications:Ty pe 2 diabetes mellitus with stage 3 chronic kidney disease, without long-term current use of insulin, unspecified whether stage 3a or 3b CKD ([facility]) Use to test blood sugar 2 times daily 1 kit Active azithromycin (Zithromax) 250 MG tabletIndications :Acute otitis media, unspecified otitis media type Take 2 tabs PO daily x 1d then 1 tab PO daily on D2 to D5 6 tablet Active polyvinyl alcohol (Liquifilm Tears) 1.4 % ophthalmic solutionIndicatio ns:Dry eyes one drop in each eye at least 2 times a day, more if burning 15 mL 1 Active Blood Glucose Monitoring Suppl ([employer] Lite) w/Device kitIndications: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 ([facility]) Use to test blood sugar 2 times daily 1 kit Active dextran 70-hypromellose PF (GenTeal Tears Moderate PF) 0.1-0.3 % ophthalmic solutionIndicatio ns:Dry eyes INSTILL ONE DROP IN EACH EYE THREE TIMES A DAY (MORNING, NOON, AND BEDTIME) NEEDED (BULK) 36 each 1 Active fluticasone (Flonase) 50 MCG/ACT nasal spray [...] mellitus with other specified complication, unspecified whether mcfp insulin use ([facility]) TAKE ONE TABLET BY MOUTH TWICE A DAY WITH MEALS 56 tablet Active amLODIPine (Norvasc) 10 MG tabletIndications :Primary hypertension Take 1 tablet (10 mg) by mouth Once per day. 30 tablet 3 Active losartan (Cozaar) 25 MG tabletIndications :Primary hypertension Take 1 tablet (25 mg) by mouth Once per day. 30 tablet 025 2025 Active hydroCHLOROthiazi de 12.5 MG tabletIndications :Primary hypertension Take 1 tablet (12.5 mg) by mouth Once per day. 30 tablet 025 2025 Active albuterol (2.5 MG/3ML) 0.083% nebulizer solution INHALE THE CONTENTS OF 1 VIAL VIA NEBULIZER THREE TIMES A DAY DIRECTED (BULK) 75 mL 5 Active naloxone (Narcan) 4 mg/0.1 mL nasal spray ADMINISTER 1 SPRAY INTO AFFECTED NOSTRIL NEEDED FOR OPIOID REVERSAL (BULK) 2 each Active cholecalciferol (Vitamin D-3) 25 MCG (1000 UT) capsule Take 1 capsule (25 mcg) by mouth Once per day. TAKE 1 CAPSULE BY MOUTH ONCE A DAY (VIAL) 30 capsule 11 02/28/2 025 Active tobramycin-dexAME THasone (Tobradex) ophthalmic suspension USE 3 DROPS INTO LEFT EAR TWICE A DAY FOR 2 WEEKS Active traMADol (Ultram) 50 MG tabletIndications :Primary osteoarthritis of both knees TAKE ONE TABLET BY MOUTH EVERY 6 HOURS IF NEEDED FOR SEVERE PAIN (VIAL) 100 tablet 025 Active FreeStyle lancetsIndication s:Type 2 diabetes mellitus with stage 3 chronic kidney disease, without long-term current use of insulin, unspecified whether stage 3a or 3b CKD ([facility]) USE 1 LANCET TWO TIMES A DAY (BULK) 100 each 11 025 Active sucralfate (Carafate) 1 g tabletIndications :Heartburn TAKE ONE TABLET BY MOUTH THREE TIMES A DAY, BEFORE BREAKFAST, BEFORE LUNCH, AND BEFORE DINNER (VIAL) 90 tablet 2 Active canagliflozin (Invokana) 100 MG Take by mouth. 2024 Discontinued mirtazapine (Remeron) 15 MG tablet Take 1 tablet by mouth at bed time. 022 2023 Discontinued(D uplicate order (will not trigger notification to Pharmacy)) FreeStyle lancetsIndication s:Type 2 diabetes mellitus with stage 3 chronic kidney disease, without long-term current use of insulin, unspecified whether stage 3a or 3b CKD ([facility]) 1 each by Other route 2 times daily. 100 each 11 024 2024 Discontinued dextran 70-hypromellose (artificial tears) 0.1-0.3 % ophthalmic solutionIndicatio ns:Dry eyes Administer 1 drop into both eyes if needed in the morning, at noon, and at bedtime for dry eyes. 30 mL 1 024 2024 SITagliptin (Januvia) 50 MG tabletIndications :Type 2 diabetes mellitus with other specified complication, unspecified whether long chain dyeing machine operator insulin use ([facility]) TAKE ONE TABLET BY MOUTH EVERY DAY (VIAL) 90 tablet 3 024 2024 Discontinued sucralfate (Carafate) 1 g tabletIndications :Heartburn TAKE ONE TABLET BY MOUTH THREE TIMES A DAY, BEFORE BREAKFAST, BEFORE LUNCH, AND BEFORE DINNER (VIAL) 90 tablet 2 025 2024 Discontinued guaiFENesin (Robitussin) 100 MG/5ML liquidIndications :Influenza A Take 10 mL (200 mg) by mouth if needed in the morning, at noon, and at bedtime for cough for up to 10 days. 120 mL 025 2024 predniSONE (Deltasone) 20 MG tabletIndications :Moderate persistent asthma with acute exacerbation Take 2 tablets (40 mg) by mouth Once per day for 5 days. 10 tablet 025 2024 Active Problems Problem Noted Date Diagnosed Date Influenza A 08/05/2024 Assessment & Plan (08/05/2024 2:47 PM EDT): Advised to drink plenty of fluids and rest Acetaminophen as needed I prescribed for patient cough syrup as needed Elevated LFTs 05/06/2024 Right wrist pain 02/25/2024 [...] renewed, she will be call for her [employer]ANG[employer] appointment Steatosis of liver 05/14/2022 CKD stage 3 due to type 2 diabetes mellitus 01/05 Diabetic nephropathy 02/01/2021 Proteinuria 02/01/2021 Vitamin D deficiency 03/20/2017 Moderate persistent asthma with acute exacerbati on 06/01/2015 Assessment & Plan (02/25/2024 4:27 PM EDT): Stable c/w same interventions Type 2 diabetes mellitus 03/29/2015 Overview (12/16/2022): Last Assessment & Plan: Today A1c 6.7 Lab Results Component Value Date CREATININE 1.91 (H) 08/17/2022 - Diabetic eye exam: referral to eye care today - Diabetic foot exam: done today - Continue lifestyle modifications - Continue current medications Assessment & Plan (08/05/2024 2:46 PM EDT): Diabetes is: controlled - Lab Results Component Value Date HGBA1C 5.1 08/05/2024 HGBA1C 6.0 02/25/2024 HGBA1C 5.7 11/25/2023 - Lab Results Component Value Date MICROALBUR 900.0 09/05/2022 CREATININE 1.93 (H) 03/18/2024 -Changes: Today I decided to discontinue her Januvia A1c is trending down (in spite of A1c is not to trust because of her underlying chronic anemia) patient tells me her glucose levels has been stable at home - Diabetic eye exam: Up-to-date - Diabetic foot exam: Referral done today - Continue lifestyle modifications - Follow up: 3 months Assessment & Plan (08/21/2023 1:45 PM EDT): [...] ordered Acute pharyngitis 12/29/2013 Cough 06/16/2013 Chronic jjgwq-uiojhx-xxxe disease 05/19/2013 Headache 03/24/2013 Dysuria 12/30/2012 Abdominal pain, epigastric 10/29/2012 Status post bone marrow transplant 08/27/2012 Anxiety disorder 06/24/2012 Major depressive disorder, single episode 2012 Low back pain 06/03/2012 Splenomegaly 05/13/2012 Asthma 03/06/2012 Assessment & Plan (08/05/2024 2:47 PM EDT): Patient today has some aphthous ulceration likely triggered by her influenza A I will prescribe for her short course of prednisone and also advised to use albuterol as needed (every 6 hours) Hyperlipidemia 03/06/2012 Myelofibrosis 03/06/2012 Assessment & Plan (02/25/2024 4:30 PM EDT): Continue to follow with specialist Hypertensive disorder 03/06/2012 Assessment & Plan (08/05/2024 2:48 PM EDT): Today blood pressure is slightly elevated she tells me she did not took her medications because of how she is feeling weak a little bit of upset stomach, I advised to take her medications every day without missing any dose and low- sodium diet Assessment & Plan (05/06/2024 3:04 PM EST): [...] Encounters Date Type Department Care Team Description 08/31/2024 Refill [facility] [address] [place] [address] Kalpana Baptiste MD Type 2 diabetes mellitus with other specified complication, unspecified whether mcfp insulin use ([facility]); Heartburn 08/27/2024 Patient Outreach [facility] [address], [place] [phone] Kalpana Baptiste MD Transition Of Care (Tcm) (HDF unscheduled. ) 08/24/2024 Patient Outreach [facility] [address], [place] [phone] Kalpana Baptiste MD Transition Of Care (Tcm) (HDF unscheduled. ) 08/22/2024 Refill [facility] [address] [place] [address] Kalpana Baptiste MD Type 2 diabetes mellitus with stage 3 chronic kidney disease, without long-term current use of insulin, unspecified whether stage 3a or 3b CKD (CMS/HCC) 08/13/2024 Outside Procedure [facility] [address] [place] [address] Jonathon, Beata, OD Presbyopia (Primary Dx) 08/12/2024 9:00 AM EDT Office Visit [facility] [address] [place] [address] Jonathon, Beata, OD Hyperopia of both eyes (Primary Dx) 08/12/2024 Travel 08/05/2024 1:00 PM EDT Office Visit [facility] [address] [place] [address] Kalpana Baptiste MD Influenza A (Primary Dx); Type 2 diabetes mellitus with stage 3 chronic kidney disease, without long-term current use of insulin, unspecified whether stage 3a or 3b CKD (CMS/HCC); Cough, unspecified type; Moderate persistent asthma with acute exacerbation; Dyslipidemia; Moderate persistent asthma, unspecified whether complicated; Primary hypertension 08/05/2024 Refill [facility] [address] [place] [address] Caryl Biggs MD 08/05/2024 Travel 08/02/2024 Refill [facility] [address] [place] [address] Kalpana Baptiste MD Primary osteoarthritis of both knees 07/29/2024 Telephone [facility] [address] [place] [address] Kalpana Baptiste MD telephone call 07/27/2024 Refill [facility] [address] [place] [address] Kalpana Baptiste MD Primary osteoarthritis of both knees 07/27/2024 Telephone [facility] [address] [place] [address] Kalpana Baptiste MD Med Refill 07/27/2024 Patient Outreach [facility] [address] [place] [address] Kalpana Baptiste MD Pre-visit Planning (SDOH screening completed on 05/06/2024) 07/16/2024 Population Health Risk Score [facility] () [address] [phone] Provider, Population Health Generic 07/06/2024 Refill [facility] [address] [place] [address] Kalpana Baptiste MD Primary osteoarthritis of both knees 07/02/2024 Refill [facility] [address] [place] [address] Kalpana Baptiste MD 07/02/2024 Refill [facility] [address] [place] [address] Kalpana Baptiste MD Primary osteoarthritis of both knees 06/22/2024 1:00 PM EST Office Visit [facility] [address] [place] [address] Beata Holt, OD Diabetes type 2, no ocular involvement (CMS/HCC) (Primary Dx); Dry eyes, bilateral; History of meningioma; Chalazion of left lower eyelid; Early cataracts, bilateral; Presbyopia 06/22/2024 Refill [facility] [address] [facility], [place] [phone] Kalpana Baptiste MD Heartburn 06/22/2024 Travel 06/10/2024 Orders Only [facility] [address] [facility], [place] [phone] Kalpana Baptiste MD Hepatic steatosis (Primary Dx) 06/08/2024 Refill [facility] [address] [facility], [place] [phone] Kalpana Baptiste MD Primary osteoarthritis of both knees from Last 3 Months Immunizations Name Administration [...] Sign Reading Time Taken Comments Blood Pressure 147/87 08/05/2024 12:57 PM EDT Pulse 81 08/05/2024 12:57 PM EDT Temperature 36.7 ??C (98 ??F) 08/05/2024 12:57 PM EDT Respiratory Rate 20 08/05/2024 12:57 PM EDT Oxygen Saturation 99% 05/06/2024 1:59 PM EST Inhaled Oxygen Concentration - - Weight 104 kg (229 lb) 08/05/2024 12:57 PM EDT Height 170.2 cm (5' 7 ) 08/05/2024 12:57 PM EDT Body Mass Index 35.87 08/05/2024 12:57 PM EDT Plan of Treatment Upcoming Encounters Date Type Department Care Team (Late st Contact Info) Description 11/01/2024 1:30 PM EDT Clinical Support [facility] [address] [place] [phone] Amanda Waldrop RN 11/10/2024 10:00 AM EDT Office Visit [facility] [address] [place] [phone] Kalpana Baptiste MD [address] [place] [phone] Health Maintenance Due Date Last Done Comments [...] exists Lipid Panel 08/20/2024 08/21/2023, 07/03, 02/20/2021 Mammogram 08/25/2024 08/26/2023, 08/03, 08/21/2022, Additional history exists Dental X-Ray: Bitewings 12/18/2024 12/18/2023, 07/01 Diabetes: Hemoglobin A1C 02/04/2025 025, 02/25/2024, 11/25/2023, Additional history exists Depression Screening 05/06/2025 05/06/2024, 05/06/19 SDOH Screening 05/06/2025 05/06/2024 Dental X-Ray: Full Mouth 07/02/2025 07/01/2022 Tobacco Screening 08/05/2025 08/05/2024 Eye Exam 06/22/2026 06/22/2024, 06/05, 06/22/2024, Additional [...] Name Priority Date/Time Associated Diagnosis Comments POCT INFLUENZA A (ID NOW RAPID MOLECULAR) Routine 08/05/2024 1:29 PM EDT Cough, unspecified type POCT RAPID COVID ANTIGEN Routine 08/05/2024 1:28 PM EDT Cough, unspecified type POCT INFLUENZA B (ID NOW RAPID MOLECULAR) Routine 08/05/2024 1:27 PM EDT Cough, unspecified type POCT GLYCATED HEMOGLOBIN, TOTAL Routine 08/05/2024 1:00 PM EDT Type 2 diabetes mellitus with stage 3 chronic kidney disease, without long-term current use of insulin, unspecified whether stage 3a or 3b CKD (CMS/HCC) POCT GLUCOSE Routine 08/05/2024 12:59 PM EDT Type 2 diabetes mellitus with stage 3 chronic kidney disease, without long-term current use of insulin, unspecified whether stage 3a or 3b CKD (CMS/HCC) HEPATITIS PANEL, GENERAL Routine 07/09/2024 9:57 AM EST Elevated LFTs US ABDOMEN COMPLETE Routine 06/10/2024 2 :37 PM EST Elevated LFTs BITEWING - SINGLE RADIOGRAPHIC IMAGE Routine 12/18/2023 [...] Recently Relevant to Health Maintenance Results * (ABNORMAL) POCT Rapid Influenza A WHEELER ID NOW (08/05/2024 1:29 PM EDT) Pathologist [facility] Influenza A Positive( A) Negative, Indeterminate [facility] QC Media Lot # [id number] [facility] Lot# Expiration Date [facility] Swab 08/05/2024 1:29 PM EDT us Kalpana Steele MD POINT OF CARE TEST EN TER/EDIT ORDERABLES Final Result [facility] [address] [place] [phone] * POCT Rapid Covid-19 BinaxNOW (08/05/2024 1:28 PM EDT) Pathologist [facility] Rapid COVID Ag Negative QC Media Lot # [id number] Lot# Expiration Date [id number] Swab 08/05/2024 1:28 PM EDT Kalpana Steele MD POINT OF CARE TEST EN TER/EDIT ORDERABLES Final Result * POCT Rapid Influenza B WHEELER ID NOW (08/05/2024 1:27 PM EDT) Influenza B Negative Negative, Indeterminate [facility] QC Media Lot # [id number] [facility] Lot# Expiration Date [id number] [facility] Swab 08/05/2024 1:27 PM EDT Kalpana Steele MD POINT OF CARE TEST EN TER/EDIT ORDERABLES Final Result [facility] [address] [place] [phone] * POCT HGB A1C (08/05/2024 1:00 PM EDT) Pathologist [facility] Hemoglobin A1C 5.1 4.0 - 6.0 % QC Media Lot # [id number] Lot# Expiration Date Blood 08/05/2024 1:00 PM EDT Kalpana Steele MD POINT OF CARE TEST EN TER/EDIT ORDERABLES Final Result * POCT Glucose (08/05/2024 12:59 PM EDT) Pathologist [facility] Glucose Blood, POC 99 60 - 200 mg/dL QC Media Lot # [id number] Lot# Expiration Date Blood Capillary blood specimen / Unknown 08/05/2024 12:59 PM EDT Kalpana Steele MD POINT OF CARE TEST EN TER/EDIT ORDERABLES Final Result * Hepatitis A,B,C Profile (07/09/2024 9:57 AM EST) Hepatitis A IgM Nonreactive Nonreactive [facility] Comment:IgM antibodies to LUCIANO V not detected; does not exclude earlyacute or recovered HAV infection. ~Hepatitis B Surface Antibody NONREACTIVE Nonreactive [facility] Comment:Nonreactive: < 8.00 mIU/mL Hepatitis B Core Antibody Nonreactive Nonreactive [facility] Hepatitis C Antibody Nonreactive Nonreactive [facility] Comment:Antibodies to HCV no t detected; does not exclude early acuteHCV infection. Hepatitis B Surface Ag Negative Negative [facility] Blood Venous blood specimen / Unknown 07/09/2024 9:57 AM EST 07/09/2024 9:57 AM EST us Kalpana Steele MD LAB BLOOD ORDERABLES Final Result [facility] [address] [place] [phone] * US Abdomen Complete (06/10/2024 2:37 PM EST) Anatomical Region Laterality Modality Abdomen Ultrasound 06/10/2024 2:37 PM EST Narrative 06/10/2024 2:39 PM EST ? [facility] ?[address] ?[place] [address] ? Ultrasound Report ? Signed ? Patient: Santa Kate ?MR#: [id number] ?? 74 ? : 1965 ?Acct:[id number] ? Age/Sex: 59 / F ?ADM Date: 06/04/24 ? Loc: HO.US ? Attending Dr: Kalpana Steele MD ? Ordering Physician: Kalpana Baptiste MD ?? Date of Service: 06/04/24 ?? Procedure(s): US abdomen complete ?? Accession Number(s): [id number] ? cc: Kalpana Baptiste MD ? CLINICAL [...] DD/ 1437 ? TD/TT: 06/10/24 1437 ? Car Repair Supervisor: ? Procedure Note Donvargas, Image - 06/10/2024 [place] [address] Ultrasound Report Signed Patient: Damian Kate#: [id number] 74 : 1965Acct:[id number] Age/Sex: 59 / FADM Date: 06/04/24 Loc: HO.US Attending Dr: Kalpana Steele MD Ordering Physician: Kalpana Baptiste MD Date of Service: 06/04/24 Procedure(s): US abdomen complete Accession Number(s): [id number] cc: Kalpana Baptiste MD CLINICAL HISTORY: elevated [...] 06/10/24 1438 DD/ 1437 TD/TT: 06/10/24 1437 Car Repair Supervisor: us Kalpana Steele MD IMG US PROCEDURES Fin al Result * BI Mammogram Screening Tomosynthesis Bilateral (08/26/2023 2:30 PM EDT) Anatomical Region Laterality Modality Breast Bilateral Mammography 08/26/2023 2:30 PM EDT Narrative 09/22/2023 4:39 AM EDT ? [facility] [place] ? [address] [facility] ?[place] [address] ? Mammography Report ? Signed ? Patient: Lavinia,Santa ?MR#: [id number] ?? 74 ? : 1965 ?Acct:[id number] ? Age/Sex: 58 / F ?ADM Date: 04/23/24 ? Loc: HO.MAMMO ? Attending Dr: Kalpana Steele MD ? Ordering Physician: Kalpana Baptiste MD ?Results: ?? 2Benign Findings ? Date of Service: 08/26/23 ?Follow Up: 1 Year From Orig ?? inal Mammogram ? Procedure(s): MM tomosynthesis screening BI ?? Accession Number(s): [id number] ? cc: Kalpana Baptiste MD ? EXAMINATION: [...] 0435 ? DD/ 1430 ? TD/TT: ? Car Repair Supervisor: ? Procedure Note Donotuseinterpreter, Image - 09/22/2023 [place] [facility] [address] [place] [address] Mammography Report Signed Patient: Damian Kate#: [id number] 74 : 1965Acct:[id number] Age/Sex: 58 / FADM Date: 08/26/23 Loc: HO.MAMMO Attending Dr: Kalpana Steele MD Ordering Physician: Kalpana Baptiste MDResults: 2Benign Findings Date of Service: 08/26/23Follow Up: 1 Year From Orig inal Mammogram Procedure(s): MM tomosynthesis screening BI Accession Number(s): [id number] cc: Kalpana Baptiste MD EXAMINATION: MM SCREENING [...] in OV> 09/22/23 0435 DD/ 1430 TD/TT: Car Repair Supervisor: Kalpana Steele MD IMG BI PROCEDURES Chad nick Result - Final * (ABNORMAL) Lipid Panel, Standard (08/21/2023 1:45 PM EDT) Triglycerides 552(H) <150 mg/dL [facility] Comment:Desirable Triglyceri de: less than 150 mg/dLBorderline High Triglyceride 150-199 mg/dLHigh Triglyceride: 200-499 mg/dLVery High Triglyceride: greater than or equal to 5OO mg/dL Cholesterol 268(H) <200 mg/dL [facility] Comment:Desirable Cholestero l: less than 200 mg/dLBorderline High Cholesterol: 200-239 mg/dLHigh Cholesterol: greater than 239 mg/dL LDL Cholesterol Calculated TNP <100 mg/dL [facility] Comment:Unable to calculate the LDL. The formula of Friedwald,Stock, and Mendoza is only valid if the triglycerides areless than 400 mg/dl. HDL Cholesterol 50 >40 mg/dL [facility] Comment:Desirable HDL: great er than 40 mg/dL Note: This HDL assay may give artificially low results in patients with liver disease. Blood Venous blood specimen / Unknown 08/21/2023 1:45 PM EDT 08/21/2023 3:52 PM EDT Kalpana Steele MD LAB BLOOD ORDERABLES Final Result [facility] [address] [place] [phone] * Hm Colonoscopy (07/06/2015) Colonoscopy Normal Normal Narrative Therese Brown - 07/06/2015 Recommended 5 year follow up us Historical Provider HEALTH MAINTENANCE Final Result from Last 3 Months or Most Recently Relevant to Health Maintenance Insurance C[facility] MEDICAID STAND ADULT Care Teams Bulk System Operator Relationship Specialty Start Date End Date Kalpana Baptiste MD [address] [place] [address] PCP - General Family Medicine 06/14/20
--- OUTSIDE RECORDS SUMMARY | 2024-09-01 14:40 | XMS_ITS | Encounter Summary ---
Author Organization [employer] Address [address] [facility] [address] [place] [address] Care Team Providers Care Care Transition Mgr Name Role Phone Kalpana Baptiste MD Primary Care Provide r Reason for Visit * Reason Comments Med Refill Encounter Details Date Type Department Care Team ([facility] Contact Info) Description 06/10/2022 Refill [facility] [address] [place], [place] [phone] Neida Garrett DO [address] [place], [place] [phone] Social History Tobacco Use Types Packs/Day Years [...] 11/01/2024 1:30 PM EDT Clinical Support [facility] [address] [place], [place] [phone] Amanda Waldrop RN 11/10/2024 10:00 AM EDT Office Visit [facility] [address] [place] [address] Kalpana Baptiste MD [address] [place] [address] documented as of this encounter Visit Diagnoses Not on filedocumented in this encounter Care Teams Care Transition Mgr Relationship Specialty Start Date End Date Kalpana Baptiste MD [address] [place] [phone] PCP - General Family Medicine 06/14/20 documented as of this encounter
--- OUTSIDE RECORDS SUMMARY | 2024-09-01 14:40 | XMS_ITS | Encounter Summary ---
Author Organization [employer] Address [address] [facility] 7t [place] [address] Care Team Providers Care Felt Dyeing Machine Tender Name Role Phone Kalpana Baptiste MD Primary Care Provide r Reason for Visit * Reason Comments Med Refill Encounter Details Date Type Department Care Team ([facility] Contact Info) Description 06/01/2022 Refill [facility]S [address] [place], [place] [phone] Neida Garrett DO [address] [place], [place] [phone] Social History Tobacco Use Types Packs/Day Years [...] Upcoming Encounters Date Type Department Care Team ([facility] Contact Info) Description 11/01/2024 1:30 PM EDT Clinical Support [facility] [address] [place], [place] [phone] Amanda Waldrop RN 11/10/2024 10:00 AM EDT Office Visit [facility] [address] [place] [phone] Kalpana Baptiste MD [address] [place] [address] documented as of this encounter Visit Diagnoses Not on filedocumented in this encounter Care Teams Felt Dyeing Machine Tender Relationship Specialty Start Date End Date Kalpana Baptiste MD [address] [place] [phone] PCP - General Family Medicine 06/14/20 documented as of this encounter
--- OUTSIDE RECORDS SUMMARY | 2024-09-01 14:40 | XMS_ITS | Encounter Summary ---
Author Organization [employer] Address [address] [facility] [address] 7t [place] [address] Care Team Providers Care Chief Of Planning Name Role Phone Kalpana Baptiste MD Primary Care Provide r Reason for Visit * Reason Comments Med Refill Encounter Details Date Type Department Care Team ([facility] st Contact Info) Description 03/11/2023 Refill [facility] [address] [place], [place] [phone] Kalpana Baptiste MD [address] [place] [address] Chronic tension-type headache, not intractable; Primary osteoarthritis [...] 1:30 PM EDT Clinical Support [facility] MED[facility]INE [address] [place] [phone] Amanda Waldrop RN 11/10/2024 10:00 AM EDT Office Visit [facility] [address] [place] [phone] Kalpana Baptiste MD [address] [place] [phone] documented as of this encounter Visit Diagnoses Diagnosis Chronic tension-type headache, not intractable Chronic tension type headache Primary osteoarthritis of both knees documented in this encounter Additional Health Concerns Assessment Noted Time PHQ-9 Depression Total Score: 0 08/22/19 23 10:06 AM EDT documented as of this encounter Care Teams Chief Of Planning Relationship Specialty Start Date End Date Kalpana Baptiste MD [address] [place] [phone] PCP - General Family Medicine 06/14/20 documented as of this encounter
--- OUTSIDE RECORDS SUMMARY | 2024-09-01 14:40 | XMS_ITS | Encounter Summary ---
Author Organization [employer] Address [address] [facility] 7t [place] [address] Care Team Providers Care Hydrate Thickener Operator Name Role Phone Kalpana Baptiste MD Primary Care Provide r Reason for Visit * Reason Comments Med Refill Encounter Details Date Type Department Care Team ([facility] Contact Info) Description 06/11/2022 Refill [facility] MED & PEDS [address] [place], [place] [phone] Neida Garrett DO [address] [place], [place] [phone] Social History Tobacco Use Types Packs/Day Years [...] Encounters Date Type Department Care Team ([facility] Contact Info) Description 11/01/2024 1:30 PM EDT Clinical Support [facility] MEDICINE [address] [place], [place] [phone] Amanda Waldrop RN 11/10/2024 10:00 AM EDT Office Visit [facility] [address] [place] [address] Kalpana Baptiste MD [address] [place] [phone] documented as of this encounter Visit Diagnoses Not on filedocumented in this encounter Care Teams Hydrate Thickener Operator Relationship Specialty Start Date End Date Kalpana Baptiste MD [address] [place] [phone] PCP - General Family Medicine 06/14/20 documented as of this encounter
--- OUTSIDE RECORDS SUMMARY | 2024-09-01 14:40 | XMS_ITS | Encounter Summary ---
Author Organization [employer] Address [address] [facility] [address] 7[address] [place] [address] Care Team Providers Care Insurance Loss Control Surveyor Name Role Phone Kalpana Baptiste MD Primary Care Provide r Reason for Visit * Reason Comments Med Refill Encounter Details Date Type Department Care Team ([facility] st Contact Info) Description 04/21/2023 Refill [facility] MED[facility] [address] [place], [place] [phone] Kalpana Baptiste MD 230 [place] [address] Chronic tension-type headache, not intractable Social History [...] Description 11/01/2024 1:30 PM EDT Clinical Support [facility] [address] [place] [phone] Amanda Waldrop RN 11/10/2024 10:00 AM EDT Office Visit [facility] [address] [place] [phone] Kalpana Baptiste MD [address] [place] [phone] documented as of this encounter Visit Diagnoses Diagnosis Chronic tension-type headache, not intractable Chronic tension type headache documented in this encounter Additional Health Concerns Assessment Noted Time PHQ-9 Depression Total Score: 0 08/22/19 23 10:06 AM EDT documented as of this encounter Care Teams Insurance Loss Control Surveyor Relationship Specialty Start Date End Date Kalpana Baptiste MD [address] [place] [phone] PCP - General Family Medicine 06/14/20 documented as of this encounter
--- OUTSIDE RECORDS SUMMARY | 2024-09-01 14:40 | XMS_ITS | Encounter Summary ---
Author Organization [employer] Address [address] [facility] [address] 7[address] [place] [address] Care Team Providers Care Roll Cutting Operator Name Role Phone Kalpana Baptiste MD Primary Care Provide r Encounter Details Date Type Department Care Team ([facility] Contact Info) Description 05/17/2022 Orders Only [facility] MED[facility] [address] [place] [address] [phone] Marilyn Corral MD [address] [place], [place] [phone] Acute idiopathic gout involving toe of right [...] Upcoming Encounters Date Type Department Care Team ([facility] Contact Info) Description 11/01/2024 1:30 PM EDT Clinical Support [facility] [address] [place] [address] [phone] Amanda Waldrop RN 11/10/2024 10:00 AM EDT Office Visit [facility] [address] [place] [phone] Kalpana Baptiste MD [address] [place] [phone] documented as of this encounter Visit Diagnoses Diagnosis Acute idiopathic gout involving toe of right foot documented in this encounter Care Teams Roll Cutting Operator Relationship Specialty Start Date End Date Kalpana Baptiste MD [address] [place] [phone] PCP - General Family Medicine 06/14/20 documented as of this encounter
--- OUTSIDE RECORDS SUMMARY | 2024-09-01 14:40 | XMS_ITS | Encounter Summary ---
Author Organization [employer] Address [address] [facility] [address] [place] [address] Care Team Providers Care State Manager Name Role Phone Kalpana Baptiste MD Primary Care Provide r Reason for Visit * Reason Comments Med Refill Encounter Details Date Type Department Care Team ([facility] st Contact Info) Description 04/02/[address] [facility] [address] [place], [place] [phone] Kalpana Baptiste MD 230 [place] [address] Primary osteoarthritis of both knees; Type 2 diabetes mellitus with other specified complication, unspecified whether terminal supervisor insulin use ([facility]) Social History Tobacco Use Types Packs/Day Years [...] 11/01/2024 1:30 PM EDT Clinical Support [facility] [address] [place] [phone] Amanda Waldrop RN 11/10/2024 10:00 AM EDT Office Visit [facility] [address] [place] [phone] Kalpana Baptiste MD [address] [place] [phone] documented as of this encounter Visit Diagnoses Diagnosis Primary osteoarthritis of both knees Type 2 diabetes mellitus with other specified complication, unspecified whether terminal supervisor insulin use ([facility]) documented in this encounter Additional Health Concerns Assessment Noted Time PHQ-9 Depression Total Score: 0 08/22/19 23 10:06 AM EDT documented as of this encounter Care Teams State Manager Relationship Specialty Start Date End Date Kalpana Baptiste MD [address] [place] [phone] PCP - General Family Medicine 06/14/20 documented as of this encounter
--- OUTSIDE RECORDS SUMMARY | 2024-09-01 14:40 | XMS_ITS | Clinical Summary ---
Author Organization [address] [place] [address] Address [address] [place] [address] Phone Care Team Providers Care Fare Enforcement Officer Name Role Phone Kalpana Baptiste MD [...] Max Daily Amount: 15 mg 6 tablet Active Additional Information Patient not taking.Reported on 08/19/2024 fluticasone propionate (FLONASE) 50 mcg/actuation nasal spray Administer 2 sprays into each nostril 1 (one) time each day. Shake gently. Before first use, prime pump. After use, clean tip and replace cap. 16 g 11 5 Active Active Problems Problem Noted Date Diagnosed Date High cholesterol 08/13/2024 Migraines 08/13/2024 Osteoporosis 08/13/2024 Myelodysplastic syndrome ([facility] V24, [facility] V 28) 08/13/2024 Disorder of left eustachian tube 06/07/2024 Mixed conductive and sensorineural hearing loss of left ear 06/07/2024 Other specified disorders of tympanic membrane, unspecified ear 06/07/2024 Elevated LFTs 05/06/2024 Left otitis externa 02/25/2024 Urinary incontinence, mixed 02/25/2024 Right wrist pain 02/25/2024 Tendinitis of hand 01/30/2024 Recurrent otitis media of left ear 11/25/2023 Diarrhea 09/23/2023 Acute otitis media 08/21/2023 Dry eyes 08/21/2023 Chronic gout of multiple sites 06/02/2023 Large granular lymphocytic l eukemia ([facility] V24, [facility] V28) 05/06/2023 Heartburn 01/28/2023 Primary insomnia 01/28/2023 Abdominal bloating 12/16/2022 Alopecia 12/16/2022 Biliary dyskinesia 12/16/2022 Cholecystitis without calculus 12/16/2022 Contusion of right foot 12/16/2022 Dyslipidemia 12/16/2022 Dyspnea on exertion 12/16/2022 Fall 12/16/2022 Gastroesophageal reflux disease 12/16/2022 Heel spur 12/16/2022 Meningioma ([facility] V24, [facility] V28) 12/16/2022 Urinary tract infection 12/16/2022 Pain of foot 12/16/2022 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 I gave the patient a BP log. Acute kidney failure, unspecified ([facility] V24) 05/14/2022 Chronic gouty arthritis 05/14/2022 Overview (08/13/2024): Last Assessment & Plan: Pain on her foot likely due to gout arthritis flare, I advise to finsh her prednisone, I will refer patient to rheumatology and I will order labs including uric acid and if not at goal I will likely start patient on allopurinol Cobalamin deficiency 05/14/2022 History of total hysterectomy 05/14/2022 Steatosis of liver 05/14/2022 Primary osteoarthritis of both knees 05/14/2022 Overview (08/13/2024): Last Assessment & Plan: Patient has not had surgery due to her anemia I will order CBC today if hgb still too low I will communicate with hematology to plan and try to conduct patient to have her b/l knee replacement for improvement of her quality of life 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 ([facility] V24, [facility] V28) 02/01/2021 Diabetic nephropathy associa nick with type 2 diabetes mellitus ([facility] V24, [facility] V28) 02/01/2021 Proteinuria 02/01/2021 Vitamin D deficiency 03/20/2017 Moderate persistent asthma 06/01/2015 Type 2 diabetes mellitus ([facility] V24, [facility] V 28) 03/29/2015 Overview (08/13/2024): Last Assessment & Plan: Today A1c 6.7 Lab Results Component Value Date CREATININE 1.91 (H) 08/17/2022 - Diabetic eye exam: referral to eye care today - Diabetic foot exam: done today - Continue lifestyle modifications - Continue current medications Allergic rhinitis 03/02/2015 Anemia 03/02/2015 Depressive disorder 03/02/2015 Indigestion 03/02/2015 Chronic myeloproliferative d isease ([facility] V24, [facility] V28) 03/02/2015 Obstructive sleep apnea syndrome 03/02/2015 Overview (08/13/2024): Last Assessment & Plan: Referral to sleep medicine ordered Obesity 03/02/2015 Acute pharyngitis 12/29/2013 Cough 06/16/2013 Chronic trljf-vwitqa-qinh di sease ([facility] V24, [facility] V28) 05/19/2013 Headache 03/24/2013 Dysuria 12/30/2012 Epigastric pain 10/29/2012 Status post bone marrow albarran splant ([facility] V24, [facility] V28) 08/27/2012 Anxiety disorder 06/24/2012 Major depressive disorder, single episode 2012 Lower back pain 06/03/2012 Spleen enlargement 05/13/2012 Asthma 03/06/2012 Hyperlipidemia 03/06/2012 Hypertension 03/06/2012 Myelofibrosis ([facility] V24, [facility] V28) 012 Encounters Date Type Department Care Team Description 08/19/2024 1:19 PM EDT - 08/19/2024 11:59 PM EDT Hospital Encounter [facility] Radiation Oncology [address] [phone] Dafne Villalpando NP Meningioma ([facility] V24, [facility] V28) (Primary Dx) Discharge Disposition: Home or Self Care 07/28/2024 11:39 AM EDT - 07/28/2024 11:59 PM EDT Hospital Encounter [facility] MRI [address] [place] [phone] Meningioma ([facility] V24, [facility] V28) Discharge Disposition: Home or Self Care 07/21/2024 Telephone [facility] [address] [phone] Macrina Caballero PA 06/15/2024 2:45 PM EST Office Visit Orthopedic Surgery [facility] [address] [facility] [address] [place] [phone] Lee Delaney, DPM Metatarsalgia of both feet (Primary Dx); Pain in right wrist; Dermatophytosis of nail; Pain in toe of right foot; Pain in toe of left foot; Diabetic mononeuropathy simplex ([facility] V24, [facility] V28) from Last 3 Months Surgical History Surgery Date Site/Laterality Comments BONE MARROW TRANSPLANT TOTAL ABDOMINAL HYSTERECTOMY W/ BILATERAL SALPINGOOPHORECTOMY TOTAL KNEE ARTHROPLASTY Medical History Medical History Date Comments Hypertension Asthma Diabetes mellitus ([facility] V24, [facility] V28) GERD (gastroesophageal reflux disease) CKD (chronic kidney disease) Myelofibrosis ([facility] V24, [facility] V28) Gout BERNIE (obstructive sleep apnea) Diabetic neuropathy ([facility] V24, [facility] V28) Osteoarthritis Family History Medical History Relation Name [...] Sign Reading Time Taken Comments Blood Pressure 133/74 08/19/2024 1:38 PM EDT Pulse 71 08/19/2024 1:38 PM EDT Temperature 35.6 ??C (96.1 ??F) 08/19/2024 1:38 PM ED T Respiratory Rate 16 08/19/2024 1:38 PM EDT Oxygen Saturation 100% 08/19/2024 1:38 PM EDT Inhaled Oxygen Concentration - - Weight 105 kg (231 lb) 08/19/2024 1:38 PM EDT Height 170.2 cm (5' 7 ) 08/19/2024 1:38 PM EDT Body Mass Index 36.18 08/19/2024 1:38 PM EDT Plan of Treatment Upcoming Encounters Date Type Department Care Team (Late st Contact Info) Description 09/14/2024 11:00 AM EDT Office Visit Orthopedic Surgery - [place] [id number] [phone] Lee Delaney, DPM [address] [address] 08/19/2025 9:30 AM EDT Appointment [facility] [address] [facility] 2nd [place] [phone] Dafne Villalpando NP [address] [place] [address] Health Maintenance Due Date Last Done Comments [...] Influencers of Health Screening 04/14/2022 RSV Immunization Adult Patients (1 - Risk 60-74 years 1-dose series) 2023 COVID-19 Vaccine (5 - Moderna risk 2023- season) 2024 02/25/2024, 05/08/2021, 07/05/2020, Additional history exists Diabetes: Blood Sugar Control Test (HGBA1C) 02/04/2025 08/05/2024, 02/25/2024, 08/11/2017 Depression Screening 05/06/2025 05/06/2024 Diabetes: Annual Urine Albumin-Creatinine Ratio (uACR) 07/15/2025 07/15/2024 Diabetes: Annual GFR (Glomerular Filtration Rate) 08/17/2025 08/17/2024, 05/20/2024, 05/19/2024, Additional history exists Hypertension/CHF/CAD Annual BMP Blood Test 08/17/2025 08/17/2024, 05/20/2024, 05/19/2024, Additional history exists Cholesterol Screening (Lipid Panel) [...] Completed 02/04/2024, , 02/20/2021, Additional history exists HPV Vaccines Aged Out No longer eligi ble based on patient's age to complete this topic Meningococcal B Vaccine Aged Out No l onger eligible based on patient's age to complete this topic RSV Immunization Patients Under 20 months Aged Out No longer eligible based on patient's age to complete this topic Varicella Vaccines Aged Out No longer eligible based on patient's age to complete this topic Procedures Procedure Name Priority Date/Time Associated Diagnosis Comments MR BRAIN WO AND W CONTRAST Routine 07/28/2024 1:19 PM EDT Meningioma (CMS/HCC V24, CMS/HCC V28) BASIC METABOLIC PANEL Routine 05/20/2024 6:02 AM EST from Last 3 Months or Most Recently Relevant to Health Maintenance Results * MR Brain wo and w Contrast (07/28/2024 1:19 PM EDT) Anatomical Region Laterality Modality Head and Neck Magnetic Resonan ce 07/31/2024 8:39 PM EDT Impressions 08/01/2024 10:53 AM EDT Postcraniotomy changes at the right vertex with a stable area of encephalomalacia in the underlying right paramedian frontal lobe. ??No evidence of a residual or recurrent meningioma. -------- FINAL REPORT -------- Dictated By: Waqar Arellano Dictated Date: 07/31/2024 20:39 ET Assigned Physician: Waqar Arellano Reviewed and Electronically Signed By: Waqar Arellano Signed Date: 08/01/2024 10:53 ET Workstation ID: [id number] Transcribed By: Self Edit Transcribed Date: 07/31/2024 20:39 ET Narrative 08/01/2024 10:53 AM EDT PROCEDURE: Contrast-enhanced MRI of the brain. HISTORY: Meningioma, monitor. TECHNIQUE: Multiplanar multisequence MRI of the brain with and without intravenous contrast. IV CONTRAST DOSE: 20 mL intravenous Dotarem from a 20 mL vial with 0 mL discarded. COMPARISON: 07/15/2023. FINDINGS: BRAIN: Stable small area of encephalomalacia in the right paramedian frontal lobe near the vertex, likely postoperative given an overlying craniotomy defect. ??Scattered stable T2 hyperintensities in the supratentorial white matter suggestive of mild chronic microvascular ischemic disease. ??No diffusion abnormality. ??No mass or extra-axial fluid collection. ??No hydrocephalus. ??The major intracranial flow voids are preserved. Age commensurate ventricles and sulci. ??No abnormal enhancement. ??Small partially empty sella. ORBITS: Normal. SINUSES/MASTOIDS: Normal. CALVARIUM: Postcraniotomy changes of the right vertex. OTHER: The visualized skull base soft tissues are normal. ??Mild degenerative changes of the visualized cervical spine. Procedure Note Waqar Arellano MD - 08/01/2024 PROCEDURE: Contrast-enhanced MRI of the brain. HISTORY: Meningioma, monitor. TECHNIQUE: Multiplanar multisequence MRI of the brain with and withoutintravenous contrast. IV CONTRAST DOSE: 20 mL intravenous Dotarem from a 20 mL vial with 0 mLdiscarded. COMPARISON: 07/15/2023. FINDINGS: BRAIN: Stable small area of encephalomalacia in the right paramedianfrontal lobe near the vertex, likely postoperative given an overlyingcraniotomy defect. Scattered stable T2 hyperintensities in thesupratentorial white matter suggestive of mild chronic microvascularischemic disease. No diffusion abnormality. No mass or extra-axial fluidcollection. No hydrocephalus. The major intracranial flow voids arepreserved. Age commensurate ventricles and sulci. No abnormalenhancement. Small partially empty sella. ORBITS: Normal. SINUSES/MASTOIDS: Normal. CALVARIUM: Postcraniotomy changes of the right vertex. OTHER: The visualized skull base soft tissues are normal. Milddegenerative changes of the visualized cervical spine. IMPRESSION: Postcraniotomy changes at the right vertex with a stable area ofencephalomalacia in the underlying right paramedian frontal lobe. Noevidence of a residual or recurrent meningioma. -------- FINAL REPORT -------- Dictated By: Waqar Arellano Dictated Date: 07/31/2024 20:39 ET Assigned Physician: Waqar Arellano Reviewed and Electronically Signed By: Waqar Arellano Signed Date: 08/01/2024 10:53 ET Workstation ID: [id number] Transcribed By: Self Edit Transcribed Date: 07/31/2024 20:39 ET Dafne Villalpando CREDIT ADMINISTRATION OFFICER IMG MRI PROCEDURES Fi nal Result * (ABNORMAL) Basic metabolic panel (05/20/2024 6:02 AM EST) Sodium 138 133 - 145 mmol/L LAB CHEMISTRY METHOD 05/20/2024 9:07 AM [facility] Potassium 4.0 3.5 - 5.5 mmol/L LAB CHEMISTRY METHOD 05/20/2024 9:07 AM [facility] Chloride 111(H) 96 - 110 mmol/L LAB CHEMISTRY METHOD 05/20/2024 9:07 AM [facility] CO2 24 21 - 32 mmol/L LAB CHEMISTRY METHOD 05/20/2024 9:07 AM [facility] Anion Gap 3 3 - 11 LAB CHEMISTRY METHOD 05/20/2024 9:07 AM [facility] Glucose 106(H) 70 - 100 mg/dL LAB CHEMISTRY METHOD 05/20/2024 9:07 AM [facility] BUN 18 5 - 25 mg/dL LAB CHEMISTRY METHOD 05/20/2024 9:07 AM [facility] Creatinine 1.75(H) 0.50 - 1.10 mg/dL LAB CHEMISTRY METHOD 05/20/2024 9:07 AM [facility] eGFR 33(L) >=60 mL/min/1. 73m2 LAB CHEMISTRY METHOD 05/20/2024 9:07 AM [facility] Comment:Calculation based on the??Chronic Kidney Disease Epidemiology Collaboration (CKD-EPI) equation refit??without adjustment for race. BUN/Creatinine Ratio 10.3 LAB CHEMISTRY METHOD 05/20/2024 9:07 AM EST [facility] Calcium 8.0(L) 8.5 - 10.5 mg/dL LAB CHEMISTRY METHOD 05/20/2024 9:07 AM EST [facility] Blood Venous blood specimen / Unknown Venipuncture / Unknown 05/20/2024 6:02 AM EST 05/20/2024 6:38 AM EST Clarice MORROW LAB BLOOD ORDERABLES Gabi acuna Result [facility] ([facility] [address] [place] [address], from Last 3 Months or Most Recently Relevant to Health Maintenance Additional Health Concerns Infection Onset Date Last Indicated Norovirus 05/20/2024 05/20/2024 Insurance MEDICAID - [place] Advance Directives Documents on File Type Date Recorded Patient Lithoplate Maker Expl anation Advance Directives and Living Will 05/21/2024 8:51 AM Advance Directives and Living Will 05/19/2024 11:42 AM [facility] Care Pro xy * Full Code [...] Healthcare Agent Relationshi p Communication Veronique Dominique [facility] Health Care Agent Salome Kate [facility] Health Care Agent Care Teams Fare Enforcement Officer Relationship Specialty Start Date End Date Kalpana Baptiste MD [address] [place] [phone] PCP - General Internal Medicine 05/18/24
--- OUTSIDE RECORDS SUMMARY | 2024-09-01 14:40 | XMS_ITS | Encounter Summary ---
Author Organization [facility] Address [address] [place] [address] Care Team Providers Care Loading Rack Supervisor Name Role Phone Kalpana Baptiste MD Primary Care Provider Reason for Visit * Reason Onset Date Comments BMT appt 05/31/2020 Encounter Details Date Type Department Care Team (Late st Contact Info) Description 05/31/2020 Telephone [facility] Central Scheduling Department [address] [place] [address] Telephone Intake, Staff BMT appt Social History [...] PM EST Pt of Dr. Bernal at [facility] Calling to schedule a follow up appt CS unable to book as requested. BM Line not available Please call for appt at [phone] documented in this encounter Plan of Treatment Upcoming Encounters Date Type Department Care Team (Late st Contact Info) Description 02/16/2025 9:00 AM EDT Lab [facility] [address] [place] [phone] 02/16/2025 10:00 AM EDT Follow-Up [facility] [address] [place] [address] Vickie Victor NP [address] [place] [address] documented as of this encounter Visit Diagnoses Not on filedocumented in this encounter Care Teams Loading Rack Supervisor Relationship Specialty Start Date End Date Kalpana Baptiste MD [address] [place] [address] PCP - General 11/22/20 documented as of this encounter
--- OUTSIDE RECORDS SUMMARY | 2024-09-01 14:40 | XMS_ITS | Encounter Summary ---
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 marine 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 ([facility]) Social History Tobacco Use Types [...] Description 11/01/2024 1:30 PM EDT Clinical Support [address] [address] Amanda Waldrop RN 11/10/2024 10:00 AM EDT Office Visit [address] [address] Kalpana Baptiste MD [address] [place] [phone] documented as of this encounter Visit Diagnoses Diagnosis Type 2 diabetes mellitus with other specified complication, 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
--- OUTSIDE RECORDS SUMMARY | 2024-09-01 14:40 | XMS_ITS | Encounter Summary ---
Author Organization [employer] Address [address] [facility] [address] [place] [address] Care Team Providers Care Bus Person Dishwasher Name Role Phone Kalpana Baptiste MD Primary Care Provide r Reason for Visit * Reason Comments Med Refill Encounter Details Date Type Department Care Team ([facility] st Contact Info) Description 04/08/2023 Refill [facility] [address] [place], [place] [phone] Kalpana Baptiste MD [address] [place] [address] Chronic tension-type headache, not intractable Social History [...] Description 11/01/2024 1:30 PM EDT Clinical Support [facility] [address] [place] [phone] Amanda Waldrop RN 11/10/2024 10:00 AM EDT Office Visit [facility] [address] [place] [phone] Kalpana Baptiste MD [address] [place] [phone] documented as of this encounter Visit Diagnoses Diagnosis Chronic tension-type headache, not intractable Chronic tension type headache documented in this encounter Additional Health Concerns Assessment Noted Time PHQ-9 Depression Total Score: 0 08/22/19 23 10:06 AM EDT documented as of this encounter Care Teams Bus Person Dishwasher Relationship Specialty Start Date End Date Kalpana Baptiste MD [address] [place] [phone] PCP - General Family Medicine 06/14/20 documented as of this encounter
== END 2024-09-01 13:20 | disposition home or self-care (01) ==
LOC: HO.MAMMO 13:19
PROVIDERS: PCP Internal Medicine; Visit Provider Internal Medicine
DX: Z12.31 Encounter for screening mammogram for malignant neoplasm of breast (principal)
CPT/HCPCS: 77063; 77067

== ENCOUNTER → 2024-09-01 14:00 | Outpatient (BNV) | payer MEDICAID, SELFPAY | PROVIDERS: PCP Internal Medicine; Visit Provider Internal Medicine | DX: Z12.31 Encounter for screening mammogram for malignant neoplasm of breast (principal) | CPT/HCPCS: 77063; 77067 ==

== ENCOUNTER 2024-09-26 14:40 | Emergency (ER) | payer MEDICAID, SELFPAY ==
--- NOTE | 2024-09-26 14:53 | ED_ITS ---
HPI - Dental/Oral General Chief complaint: Dental/Oral Stated complaint: dental pain Time Seen by Provider: 09/26/24 18:46 Source: patient, RN notes reviewed and old records reviewed Mode of arrival: ambulatory Limitations: no limitations History of Present Illness ED Provider: Capri ANDRADE Narrative: 59-year-old female with past medical history significant for diabetes, obesity, hypertension, hyperlipidemia, asthma obstructive sleep apnea presents for evaluation of dental pain and facial swelling. Patient reports seeing her dentist on Friday, 2 days ago for dental pain to the lower, sent her mandible. She was put on clindamycin 150 mg to be taken every 8 hours for pain. She was discharged with Tylenol for pain control She reports since then her pain has worsened, she has swelling to her lower lip in front of the area of the dental pain She reports some chills but has not had any fevers She has a penicillin allergy which is why she was given clindamycin No other complaints or concerns at this time Related Data Home Medications ?Medication ?Instructions ?Recorded ?Confirmed citalopram 40 mg tablet 40 mg PO DAILY 02/15/20 06/28/24 cholecalciferol (vitamin D3) 25 25 mcg PO DAILY 02/16/20 06/28/24 mcg (1,000 unit) capsule mirtazapine 15 mg tablet 30 mg PO BEDTIME PRN Sleep 11/28/20 06/28/24 albuterol sulfate 2.5 mg/3 mL 2.5 mg inhalation TID 10/07/21 06/28/24 (0.083 %) solution for nebulization albuterol sulfate 90 mcg/actuation 2 puff inhalation Q4-6H PRN 10/07/21 06/28/24 aerosol inhaler (ProAir HFA) Shortness Of Breath diclofenac sodium 1 % topical gel 2 g topical BID 10/07/21 06/28/24 fluticasone propionate 50 2 spray intranasal DAILY PRN 10/07/21 06/28/24 mcg/actuation nasal Allergy Symptoms spray,suspension lidocaine 5 % topical patch 1 patch topical DAILY 10/07/21 06/28/24 (Lidoderm) loratadine 10 mg tablet 10 mg PO DAILY PRN Allergy Symptoms 10/07/21 06/28/24 ruxolitinib 5 mg tablet (Jakafi) 5 mg PO BID 10/07/21 06/28/24 amlodipine 5 mg tablet (Norvasc) 10 mg PO DAILY 02/18/23 06/28/24 cyanocobalamin (vitamin B-12) 1,000 mcg IM QMONTH 02/18/23 06/28/24 1,000 mcg/mL injection solution fluticasone propionate 110 1 puff inhalation Q12H 02/18/23 06/28/24 mcg/actuation HFA aerosol inhaler (Flovent HFA) lisinopril 5 mg tablet 5 mg PO DAILY 02/18/23 06/28/24 pravastatin 40 mg tablet 40 mg PO BEDTIME 02/18/23 06/28/24 Previous Rx's ?Medication ?Instructions ?Recorded metformin 500 mg tablet 500 mg PO BIDWM #60 tabs 01/18/22 sitagliptin phosphate 50 mg tablet 50 mg PO DAILY 90 days #90 tabs 01/18/22 (Januvia) famotidine 40 mg tablet (Pepcid) 40 mg PO BEDTIME 30 days #30 tabs 07/26/22 pantoprazole 40 mg tablet,delayed 40 mg PO DAILY@0630 #30 tabs 07/26/22 release (Protonix) ferrous sulfate 325 mg (65 mg 325 mg PO DAILY #30 tabs 08/08/22 iron) tablet acetaminophen 325 mg tablet 650 mg (2 x 325 mg) PO Q6H PRN 03/12/23 Pain, Mild (Pain Scale 1-3) 30 days #240 tabs docusate sodium 100 mg capsule 100 mg PO BID 14 days #28 caps 03/12/23 enoxaparin 40 mg/0.4 mL 40 mg (0.4 mL) subcut Q24H 35 days 03/12/23 subcutaneous syringe #14 mL oxycodone 5 mg tablet 5 mg PO Q4H PRN Pain, Severe (Pain 03/12/23 Scale 7-10) 7 days #42 tabs walker #1 ea 03/24/23 colchicine 0.6 mg tablet 0.6 mg PO DAILY #30 tabs 04/08/23 ibuprofen 600 mg tablet 600 mg PO Q6H PRN fever or pain 04/08/23 #30 tabs prednisone 20 mg tablet 40 mg (2 x 20 mg) PO DAILY #10 tabs 04/08/23 allopurinol 100 mg tablet 100 mg PO DAILY #90 tabs 06/03/23 ruxolitinib 5 mg tablet (Jakafi) 5 mg PO BID #180 tabs 12/15/23 morphine 15 mg immediate release 15 mg PO Q8H PRN pain #10 tabs 03/19/24 tablet clindamycin HCl 300 mg capsule 300 mg PO TID #21 caps 09/26/24 tramadol 50 mg tablet 50 mg PO Q8H PRN severe pain 09/26/24 (scale score 7-10) #12 tabs Allergies Allergy/AdvReac Type Severity Reaction Status Date / Time aspirin [ASPIRIN] Allergy Intermediate SWELLING/ITCHING, Verified 09/26/24 14:57 rash Penicillins Allergy Intermediate ITCHING Verified 09/26/24 14:57 vancomycin [VANCOMYCIN] AdvReac Intermediate RED MAN Verified 09/26/24 14:57 SYNDROME PER MD Review of Systems 2 Constitutional: Constitutional: Denies body ache(s), Reports chills and Denies fever(s) Eyes: Eyes: Denies blurry vision ENT: Reports mouth pain, Denies sore throat, Denies throat swelling and Denies tongue swelling Cardiovascular: Cardiovascular: Denies chest pain, Denies chest pain at rest and Denies dyspnea Respiratory: Respiratory: Denies cough and Denies dyspnea Gastrointestinal: Gastrointestinal: Denies abdominal pain, Denies nausea and Denies vomiting Musculoskeletal: Musculoskeletal: Denies back pain Integumentary/Breasts: Skin/Breast: Denies rash Psychiatric: Psychiatric: Denies anxiety Allergic/Immunologic: Allergic/Immunologic: Denies throat swelling and Denies tongue swelling PMFSH Past Medical History Medical History (Updated 09/26/24 @ 19:46 by Yeyo Farooq) BERNIE (obstructive sleep apnea) Acute hypoxic respiratory failure Morbid obesity Anemia Hx of radiation therapy Hx of transfusion of packed red blood cells COVID-19 vaccine series completed Osteoarthritis of wrist Obesity due to excess calories Osteoarthritis of knees, bilateral Hiatal hernia History of myelofibrosis History of depression Anemia BERNIE (obstructive sleep apnea) Biliary dyskinesia CKD stage 3 due to type 2 diabetes mellitus Chronic myeloproliferative disease History of gastritis GERD (gastroesophageal reflux disease) Diabetic neuropathy associated with type 2 diabetes mellitus Diabetic nephropathy Morbid obesity due to excess calories Hypertension Diabetes type 2, controlled Asthma Vitamin B12 deficiency Dyslipidemia Surgical History Bone marrow replaced by transplant History of resection of meningioma H/O stem cell transplant Hx of colonoscopy Hx of breast reduction, elective Hx of esophagogastroduodenoscopy History of partial hysterectomy Family History Family History Father Heart problem HTN (hypertension) Mother Diabetes Family/Other Diabetes HTN (hypertension) Heart problem Sister Cancer Social History Social History Household Members: None Housing: Apartment Are you a primary managed care analyst to a significant other at home: No Do you presently have visiting nurse or other home services: No Alcohol intake: never Patient Tobacco Use Status: Never used Tobacco Advance Directives: Yes Advance Directives on File: Yes Advance Directives Date on File: 03/13/23 service: No Current occupational status: disabled Physical Exam 2 Vital Signs: Vital Signs: Last Vital Signs Temp 98.0 F 09/26/24 14:54 Pulse 103 H 09/26/24 14:54 Resp 18 09/26/24 14:54 BP 154/89 H 09/26/24 14:54 Pulse Ox 99 09/26/24 14:54 O2 Del Method Room Air 09/26/24 14:54 BMI result Body Mass Index 35.1 Const: General: healthy appearing, comfortable, no acute distress, alert and awake Nutritional Appearance: well nourished Orientation/consciousness: p atient oriented x3 HEENT: Other: Mild edema to the lower lip and gingival edema. There is no significant abscess, no induration. No Jamir's angina. No dental fractures. No anterior neck edema. No trismus Head: Yes normocephalic and Yes atraumatic Eyes: Eyelids: Yes eyelids normal Conjunctivae: conjunctivae normal S clerae: sclerae normal Corneas: corneas normal Pupils: Equal, round and reactive pupils present EOM: EOMs intact bilaterally Neck: Neck: Yes full ROM Resp: Effort & Inspection: normal respiratory effort, able to speak in complete sentences and not labored Skin: General skin exam: elasticity normal Neuro: General: patient oriented x3 Cranial nerves: Yes Equal, round and reactive pupils present and Yes Bilaterally intact EOM present Cognition (Neuro): normal cognition Course Course Course Narrative: This is an RME performed by Karli Summers CNP: Additional HPI, ROS, PE not included below will be deferred to primary provider. Patient is a 59-year-old female who presents emergency department for evaluation of frontal lower dental pain onset 4 days ago. She was seen by dentist 2 days ago, was given a course of antibiotics; clindamycin QID. She has since developed swelling to the lip and pain extending down through jaw, tactile fever, chills, headache. Pain 10/10, poor PO tolerance due to severity of pain. No swelling of the posterior oropharanx, no identifiable abscess, dentin exposure #22-27 corresponding with areas of pain. Plan: serum labs Medications Administered Discontinued Medications Generic Name Dose Route Start Last Admin Trade Name Freq PRN Reason Stop Dose Admin Clindamycin HCl 300 mg 09/26/24 18:59 09/26/24 19:32 Clindamycin Hcl 300 Mg Capsule PO 09/26/24 19:00 300 mg ONCE ONE Administration Tramadol HCl 50 mg 09/26/24 18:59 09/26/24 19:32 Tramadol Hcl 50 Mg Tablet PO 09/26/24 19:00 50 mg ONCE ONE Administration Medical Decision Making Medical Decision Making [facility] Narrative: Patient appears to have a mild dental infection with associated facial pain. She has lower lip edema that is focal and localized in the area of her dental pain, this is likely reactive to her infectious process and not an allergic reaction to the clindamycin. She is only on clindamycin 150 mg, we will increase the dose to 300 mg t.i.d. x1 full week. She was given tramadol for pain control. There was no evidence for complicated infection Differential Diagnosis Differential Diagnoses: The differential diagnosis associated with the presentation includes Gingivitis Dental abscess Dental pain Cellulitis Jamir's angina Anaphylaxis less likely Lab Data [facility] Lab Attestation statement: I reviewed the patient's lab results. No leukocytosis. The patient has chronic normocytic anemia, her hemoglobin hematocrit are at or just above her baseline. No significant left shift. She has chronic kidney disease, her BUN and creatinine of 23 and 1.85 respectively are consistent with a baseline. Her carbon dioxide level is slightly low at 21 and likely due to tachypnea from her discomfort 09/26/24 15:36 09/26/24 15:36 Labs: Lab Results 09/26/24 Range/Units 15:36 WBC 8.4 (4.8-10.8) X10*3/uL RBC 3.47 L (4.20-5.50) X10*6/uL Hgb 10.4 L (12.0-16.0) g/dl Hct 30.1 L (37.0-47.0) % MCV 86.7 (80.0-98.0) fL MCH 30.0 (27.0-33.0) pg MCHC 34.6 (31.0-35.0) g/dl RDW 13.6 (11.0-16.0) % Plt Count 280 (160-400) X10*3/uL MPV 8.8 L (9.4-12.3) fL Immature Gran % (Auto) 0.5 H (0.0-0.4) % Neut % (Auto) 67.4 (45-73) % Lymph % (Auto) 20.7 (20-40) % Lamar % (Auto) 10.1 (2-11) % Eos % (Auto) 1.1 (0-4) % Baso % (Auto) 0.2 (0-2) % Lymph # (Auto) 1.7 (1.2-4.9) X10*3/uL Lamar # (Auto) 0.9 (0.1-1.2) X10*3/uL Eos # (Auto) 0.1 (0.0-0.4) X10*3/uL Baso # (Auto) 0.0 (0.0-0.2) X10*3/uL Abs Immat Gran (auto) 0.04 H (0.00-0.03) X10*3/uL Absolute Neuts (auto) 5.7 (2.0-8.3) x10*3/uL Absolute Nucleated RBC 0.000 (0.0-0.012) X10*3/uL Nucleated RBC % (auto) 0.0 (0.0-0.2) /100WBC Sodium 142 (135-145) mmol/L Potassium 4.7 (3.3-5.1) mmol/L Chloride 107 (96-108) mmol/L Carbon Dioxide 21 L (22-29) mmol/L Anion Gap 19 (12-20) BUN 23 H (9-16) mg/dL Creatinine 1.85 H (0.5-1.4) mg/dL Estim Creat Clear Calc 39.1 Estimated GFR 28 Random Glucose 121 H (60-115) mg/dL Calcium 9.8 D (8.4-10.2) mg/dL Discharge Plan Discharge Clinical Impression: Pain, dental, Acute facial pain Patient Disposition: Home, Self-Care Instructions: Toothache (ED) Additional Instructions: Your workup today was reassuring. I agree that you likely have a dental infection. You should increase her clindamycin to 300 mg 3 times a day for 1 week. I sent a new prescription to your pharmacy You may continue to use Tylenol as needed for pain. You may use tramadol for more severe, breakthrough pain. This may make you drowsy, do not drink alcohol or drive after taking it You may also use [id number] Orajel or benzocaine to help with your local pain Prescriptions: New clindamycin HCl 300 mg capsule 300 mg PO TID Qty: 21 0RF tramadol 50 mg tablet 50 mg PO Q8H PRN (Reason: severe pain (scale score 7-10)) Qty: 12 0RF No Action metformin 500 mg tablet 500 mg PO BIDWM Qty: 60 4RF Januvia 50 mg tablet 50 mg PO DAILY 90 Days Qty: 90 0RF Rx Instructions: Dose reduced based on GFR ferrous sulfate 325 mg (65 mg iron) tablet 325 mg PO DAILY Qty: 30 6RF citalopram 40 mg Tablet 40 mg PO DAILY allopurinol 100 mg Tablet 100 mg PO DAILY Qty: 90 4RF Jakafi 5 mg Tablet 5 mg PO BID Qty: 180 4RF lidocaine [Lidoderm] 5 % Adhesive Patch,Medicated 1 patch TOPICAL DAILY Rx Instructions: leave on most painful area for up to 12 hrs fluticasone propionate 50 mcg/actuation Dumont,Suspension 2 spray INTRANASAL DAILY PRN (Reason: Allergy Symptoms) Rx Instructions: administer into each nostril loratadine 10 mg Tablet 10 mg PO DAILY PRN (Reason: Allergy Symptoms) diclofenac sodium 1 % Gel 2 g TOPICAL BID Rx Instructions: apply to single elbow, wrist or hand; for hand includes palm/fingers/back of hand albuterol sulfate 2.5 mg /3 mL (0.083 %) solution for nebulization 2.5 mg inhalation TID albuterol sulfate [ProAir HFA] 90 mcg/actuation Hfa Aerosol Inhaler 2 puff INHALATION Q4-6H PRN (Reason: Shortness Of Breath) Jakafi 5 mg Tablet 5 mg PO BID amlodipine [Norvasc] 5 mg tablet 10 mg PO DAILY cyanocobalamin (vitamin B-12) 1,000 mcg/mL Solution 1,000 mcg IM QMONTH lisinopril 5 mg Tablet 5 mg PO DAILY pravastatin 40 mg Tablet 40 mg PO BEDTIME fluticasone propionate [Flovent HFA] 110 mcg/actuation Hfa Aerosol Inhaler 1 puff INHALATION Q12H acetaminophen 325 mg Tablet 650 mg PO Q6H PRN (Reason: Pain, Mild (Pain Scale 1-3)) 30 Days Qty: 240 0RF docusate sodium 100 mg Capsule 100 mg PO BID 14 Days Qty: 28 0RF oxycodone 5 mg Tablet 5 mg PO Q4H PRN (Reason: Pain, Severe (Pain Scale 7-10)) 7 Days Qty: 42 0RF Rx Instructions: Partial Fill upon patient request. enoxaparin 40 mg/0.4 mL Syringe 40 mg subcut Q24H 35 Days Qty: 14 0RF prednisone 20 mg tablet 40 mg PO DAILY Qty: 10 0RF colchicine 0.6 mg tablet 0.6 mg PO DAILY Qty: 30 0RF ibuprofen 600 mg tablet 600 mg PO Q6H PRN (Reason: fever or pain) Qty: 30 0RF morphine 15 mg tablet 15 mg PO Q8H PRN (Reason: pain) Qty: 10 0RF Rx Instructions: Partial Fill upon patient request. cholecalciferol (vitamin D3) 25 mcg (1,000 unit) capsule 25 mcg PO DAILY mirtazapine 15 mg tablet 30 mg PO BEDTIME PRN (Reason: Sleep) famotidine [Pepcid] 40 mg tablet 40 mg PO BEDTIME 30 Days Qty: 30 6RF pantoprazole [Protonix] 40 mg tablet,delayed release (DR/EC) 40 mg PO DAILY@0630 Qty: 30 6RF (DME) najma Vargas See Rx Instructions .MEDSUPPLY Qty: 1 0RF Rx Instructions: Folding Front wheeled najma Print Language: Italian
[2024-09-26 14:54] VITALS: BP 154/89; PULSE 103; RESP 18; TEMP 36.7; O2SAT 99; BMI 35.1
[2024-09-26 15:40] LABS: MANUAL DIFF FLAG NO
[2024-09-26 15:41] LABS: Basophils Percent Auto 0.2 % (0-2); Eosinophils Absolute Auto 0.1 X10*3/uL (0.0-0.4); Eosinophils Percent Auto 1.1 % (0-4); Hematocrit 30.1 % (37.0-47.0); Hemoglobin 10.4 g/dl (12.0-16.0); Imm Gran Abs Auto 0.04 X10*3/uL (0.00-0.03); Imm Gran Pct Auto 0.5 % (0.0-0.4); Lymphocytes Absolute Auto 1.7 X10*3/uL (1.2-4.9); Lymphocytes Percent Auto 20.7 % (20-40); Mean Corpuscular HGB Conc 34.6 g/dl (31.0-35.0); Mean Corpuscular Volume 86.7 fL (80.0-98.0); Mean Platelet Volume 8.8 fL (9.4-12.3); Monocytes Absolute Auto 0.9 X10*3/uL (0.1-1.2); Monocytes Percent Auto 10.1 % (2-11); Neutrophils Absolute Auto 5.7 x10*3/uL (2.0-8.3); Neutrophils Percent Auto 67.4 % (45-73); Platelet Count 280 X10*3/uL (160-400); Red Blood Count 3.47 X10*6/uL (4.20-5.50); Red Cell Distribution Width 13.6 % (11.0-16.0); White Blood Count 8.4 X10*3/uL (4.8-10.8)
[2024-09-26 15:54] LABS: Anion Gap 19 (12-20); Blood Urea Nitrogen 23 mg/dL (9-16); Calcium 9.8 mg/dL (8.4-10.2); Carbon Dioxide 21 mmol/L (22-29); Chloride 107 mmol/L (96-108); Creatinine Clr Calc Pharmacy 39.1; Estimated Glomerular Filt Rate 28; Glucose Random 121 mg/dL (60-115); Potassium 4.7 mmol/L (3.3-5.1); Sodium 142 mmol/L (135-145)
[2024-09-26] MEDS: traMADoL HCL 50 MG TABLET PO (19:32)
[2024-09-26] MEDS: Clindamycin HCL 300 MG CAPSULE PO (19:32)
[2024-09-26 19:52] VITALS: BP 145/80; PULSE 100; RESP 18; TEMP 36.7; O2SAT 99
== END 2024-09-26 19:52 | disposition home or self-care (01) ==
PROVIDERS: Nurse Practitioner Family; Emergency Provider Emergency Medicine; PCP Internal Medicine
DX: K08.89 Other specified disorders of teeth and supporting structures (principal); R51.9 Headache, unspecified; Z79.899 Other long term (current) drug therapy
CPT/HCPCS: 36415; 80048; 85025; 99283

== ENCOUNTER 2025-01-28 12:02 | Outpatient (REF) | payer MEDICAID, SELFPAY ==
--- OUTSIDE RECORDS SUMMARY | 2025-01-26 14:00 | XMS_ITS | Encounter Summary ---
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 Encounter Details Date Type Department Care Team (Latest Contact Info) Description 01/26/2025 2:00 PM EDT Clinical Support [facility] [address] [place] [address] Amanda Waldrop RN Long-term current use of opiate analgesic (Primary Dx) Social History Tobacco Use Types Packs/Day Years Used Date Smoking Tobacco: Former Cigarettes Passive Smoke Exposure: Past Smokeless Tobacco: Never Alcohol Use Standard Drinks/Week Comments Never 0 (1 standard drink = 0.6 oz pur e alcohol) Depression Answer Date Recorded Patient Health Questionnaire-9 Score 0 10/15/2024 Patient Health Questionnaire-9 Score 0 10/15/2024 Last PHQ-9: Questionnaire Data Not on file 0 10/15/2024 Housing Stability Answer Date Recorded What is [...] from getting things needed for daily living? Yes, it has kept me from medical appointments or getting medications. 10/15/2024 Intimate Partner Violence Answer Date R ecorded Within the last year, have y ou been afraid of your partner or ex-partner? 2 10/15/2024 Within the last year, have y ou been humiliated or emotionally abused in other ways by your partner or ex-partner? 2 Within the last year, have y ou been kicked, hit, slapped, or otherwise physically hurt by your partner or ex-partner? 2 10/15/2024 Within the last year, have y ou been raped or forced to have any kind of sexual activity by your partner or ex-partner? 2 10/15/2024 Utilities Answer Date Recorded In the past 12 months, has t he electric, gas, oil or water company threatened to shut off services in your home? No 05/06/2024 Depression Answer Date Recorded Patient Health Questionnaire-2 Score 0 10/15/2024 Internet Access Answer Date Recorded Internet Access [...] Progress Notes * Amanda Waldrop RN - 01/26/2025 2:00 PM EDT SUBJECTIVE: Santa Kate is a 59 y.o. 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 States she takes between 3-4 doses a day. The patient last took Tramadol (Ultram) on: 01/25/2025 Medication is: 70% % effective at alleviating pain. OBJECTIVE: WINDOW CLERK checked: 01/26/2025 Pill count completed for Tramadol (Ultram), count today is 89 , anticipated count should be 79, this is as expected. Vital Signs Pain Score: 8 Pain Loc: Back Pain Education: Yes Additional pain site: both knee's Last PCP visit: 10/26/2024 Controlled substance agreement signed: Controlled Substance Agreement 11/01/2024 SENIOR SOFTWARE ENGINEERING MANAGER Tier: 2 Current Medications[1] Smoking status: Denies ETOH use: Denies Illicit substances: Denies Marijuana use: No Lab Results Component Value Date POCTHC Negative 01/26/2025 POCCOCAINEUR Negative 01/26/2025 POCOPIATEUR Negative 01/26/2025 DOAUR Negative 01/26/2025 POCAMPHETAMI Negative 01/26/2025 POCBENZODIUR Negative 01/26/2025 POCBARBSCRN Negative 01/26/2025 POCMETHADOUR Negative 01/26/2025 POCBUPSCRN Negative 01/26/2025 POCTCAUR Negative 01/26/2025 POCMDMAUR Negative 01/26/2025 POCOXYCODONE Negative 01/26/2025 POCPHENCYCUR Negative 01/26/2025 PROPOXUR Negative 01/26/2025 FENTANYLURIN Negative 01/26/2025 ASSESSMENT: Encounter Diagnosis Name Primary? Long-term current use of opiate analgesic Yes PLAN: Information on pain group given: Previously discussed Information on acupuncture given: Previously discussed Narcan education provided: Previously discussed Narcan prescription: active Santa Kate will continue taking medication as prescribed and follow up at the next SENIOR SOFTWARE ENGINEERING MANAGER visit orsooner if needed. Santa Kate has verbalized understanding of care plan. Future Appointments Date Time Provider Department Center 01/28/2025 11:00 AM Kalpana Steele MD MEDICINE [facility] 05/03/2025 1:00 PM Amanda Waldrop RN MEDICINE [facility] 06/22/2025 1:00 PM Gloria VIZCAINO DENT [facility] Amanda Waldrop RN [1] Current Outpatient Medications: traMADol (Ultram) 50 MG tablet, Take 1 tablet (50 mg) by mouth every 6 (six) hours if needed for severe pain for up to 28 days. Do not start before January 19, 2025., Disp: 112 tablet, Rfl: 0 Acetaminophen Extra Strength 500 MG tablet, TAKE ONE TO TWO TABLETS BY MOUTH THREE TIMES A DAY NEEDED . MAXIMUM DAILY DOSE OF 6 TABLETS / 24 HOURS. (VIAL), Disp: 100 tablet, Rfl: 1 albuterol (2.5 MG/3ML) 0.083% nebulizer solution, INHALE THE CONTENTS OF 1 VIAL VIA NEBULIZER THREETIMES A DAY DIRECTED (BULK), Disp: 75 mL, Rfl: 5 albuterol (Ventolin HFA) 108 (90 Base) MCG/ACT inhaler, INHALE TWO PUFFS BY MOUTH EVERY 6 HOURS NEEDED FOR SHORTNESS OF BREATH OR WHEEZING (BULK), Disp: 18 g, Rfl: 11 Alcohol Swabs (Easy Touch Alcohol Prep Medium) 70 % pads, USE 1 SWAB ONCE DAILY (BULK), Disp: 100 each, Rfl: 11 amLODIPine (Norvasc) 10 MG tablet, TAKE ONE TABLET BY MOUTH EVERY DAY (VIAL), Disp: 90 tablet, Rfl:1 Blood Glucose Monitoring Suppl (ScaleXtreme Lite) w/Device kit, Use to test blood sugar 2 times daily, Disp: 1 kit, Rfl: 0 cholecalciferol (Vitamin D-3) 25 MCG (1000 UT) capsule, Take 1 capsule (25 mcg) by mouth Once per day. TAKE 1 CAPSULE BY MOUTH ONCE A DAY (VIAL), Disp: 30 capsule, Rfl: 11 citalopram (CeleXA) 10 MG tablet, Take 10 mg by mouth Once per day., Disp: , Rfl: colchicine 0.6 MG tablet, TAKE ONE TABLET BY MOUTH EVERY MORNING (VIAL), Disp: 28 tablet, Rfl: 11 cyanocobalamin (Vitamin B-12) 1000 MCG/ML injection, Inject 1 mL into the muscle., Disp: , Rfl: dextran 70-hypromellose PF (GenTeal Tears Moderate PF) 0.1-0.3 % ophthalmic solution, INSTILL ONE DROP IN EACH EYE THREE TIMES A DAY (MORNING, NOON, AND BEDTIME) NEEDED (BULK), Disp: 36 each, Rfl:1 dicyclomine (Bentyl) 20 MG tablet, , Disp: , Rfl: fluticasone (Flonase) 50 MCG/ACT nasal spray, USE 2 SPRAYS IN EACH NOSTRIL EVERY MORNING NEEDED (BULK), Disp: 48 g, Rfl: 3 fluticasone (Flovent HFA) 110 MCG/ACT inhaler, Inhale 1 puff every 12 (twelve) hours., Disp: , Rfl: FreeStyle lancets, USE 1 LANCET TWO TIMES A DAY (BULK), Disp: 100 each, Rfl: 11 FREESTYLE LITE test strip, USE TO TEST BLOOD SUGAR ONCE DAILY AND DIRECTED (BULK), Disp: 50 strip, Rfl: 11 hydroCHLOROthiazide 12.5 MG tablet, Take 1 tablet (12.5 mg) by mouth Once per day., Disp: 30 tablet, Rfl: 11 ketotifen (Alaway) 0.025 % ophthalmic solution, Administer 1 drop into affected eye(s) every 12 (twelve) hours., Disp: , Rfl: lidocaine (Lidoderm) 5 % patch, APPLY 1 PATCH TOPICALLY ONCE PER DAY. REMOVE & DISCARD PATCH WITHIN 12 HOURS OR DIRECTED BY MD. (BULK), Disp: 30 patch, Rfl: 1 loratadine (Claritin) 10 MG tablet, TAKE ONE TABLET BY MOUTH EVERY MORNING (VIAL), Disp: 30 tablet,Rfl: 11 losartan (Cozaar) 25 MG tablet, Take 1 tablet (25 mg) by mouth Once per day., Disp: 30 tablet, Rfl:11 melatonin 3 MG tablet, TAKE 1 TABLET BY MOUTH EVERY DAY AT BEDTIME FOR SLEEP, Disp: , Rfl: metFORMIN (Glucophage) 500 MG tablet, TAKE ONE TABLET BY MOUTH TWICE A DAY WITH MEALS, Disp: 56 tablet, Rfl: 11 naloxone (Narcan) 4 mg/0.1 mL nasal spray, ADMINISTER 1 SPRAY INTO AFFECTED NOSTRIL NEEDED FOR OPIOID REVERSAL (BULK), Disp: 2 each, Rfl: 2 Qayvfkya-Uxoosnzzk-BC 1 % solution, Administer 3 drops into affected ear(s) 4 times daily. (Patientnot taking: Reported on 10/26/2024), Disp: 10 mL, Rfl: 0 ondansetron ODT (Zofran-ODT) 4 MG disintegrating tablet, , Disp: , Rfl: oxyCODONE (Roxicodone) 5 MG immediate release tablet, Take 1 tablet by mouth every 6 (six) hours ifneeded for severe pain. (Patient not taking: Reported on 10/26/2024), Disp: , Rfl: pantoprazole (ProtoNix) 40 MG EC tablet, TAKE 1 TABLET BY MOUTH ONCE DAILY (VIAL), Disp: 30 tablet,Rfl: 11 polyvinyl alcohol (Liquifilm Tears) 1.4 % ophthalmic solution, one drop in each eye at least 2 times a day, more if burning, Disp: 15 mL, Rfl: 1 pravastatin (Pravachol) 40 MG tablet, TAKE ONE TABLET BY MOUTH AT BEDTIME (VIAL), Disp: 30 tablet, Rfl: 11 ruxolitinib (Jakafi) 5 MG chemo tablet, Take 5 mg by mouth., Disp: , Rfl: sucralfate (Carafate) 1 g tablet, TAKE ONE TABLET BY MOUTH THREE TIMES A DAY, BEFORE BREAKFAST, BEFORE LUNCH, AND BEFORE DINNER (VIAL), Disp: 90 tablet, Rfl: 5 tolterodine LA (Detrol LA) 4 MG 24 hr capsule, Take 1 capsule (4 mg) by mouth in the morning., Disp: 90 capsule, Rfl: 1 documented in this encounter Plan of Treatment Upcoming Encounters Date Type Department Care Team (Late st Contact Info) Description 05/03/2025 1:00 PM EST Clinical Support [facility] MEDICINE [address] [place] [address] Amanda Waldrop RN 06/22/2025 1:00 PM EST Office Visit [facility] ADULT DENTAL [address] [place] [address] Gloria Corey [address] [place] [address] documented as of this encounter Procedures Procedure Name Priority Date/Time Associated Diagnosis Comments POCT MARY-14 URINE DRUG SCREEN Routine 01/26/2025 2:23 PM EDT Long-term current use of opiate analgesic documented in this encounter Results * POCT MARY-14 Urine Drug Screen (01/26/2025 2:23 PM EDT) THC Negative Negative Cocaine Screen, Urine Negative Negative Opiate Screen, Urine Negative Negative Methamphetamine Screen Urine Negative Negative Amphetamine Screen, Urine Negative Negative Benzodiazepines Screen, Urine Negative Negative Barbiturate Screen, Urine Negative Negative Methadone Screen, Urine Negative Negative Buprenophine Screen, Urine Negative Negative TCA, Urine Negative Negative MDMA Urine Negative Negative ng/mL Oxycodone Screen, Urine Negative Negative Phencyclidine (PCP), Urine Negative Negative Propoxyphene, Urine Negative Negative Fentanyl, Urine Negative Negative Urine Urine specimen obtained by clean catch procedure / Unknown 01/26/2025 2:23 PM EDT Amanda Muñoz, RN - 01/26/2025 2:23 PM EDT UTOX cup Lot#[id number] Exp. 02/08/26 Internal Pass Control Kalpana Steele MD POINT OF CARE TEST EN TER/EDIT ORDERABLES Final Result documented in this encounter Visit Diagnoses Diagnosis Long-term current use of opiate analgesic- Primary Encounter for long-term (current) use of other medications documented in this encounter Additional Health Concerns Assessment Noted Time PHQ-9 Depression Total Score: 0 10/16/19 25 3:24 PM EDT documented as of this encounter Care Teams Roof Service Technician Relationship Specialty Start Date End Date Kalpana Baptiste MD [address] [place] [id number] PCP - General Family Medicine 06/14/20 documented as of this encounter
--- OUTSIDE RECORDS SUMMARY | 2025-01-28 11:00 | XMS_ITS | Encounter Summary ---
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) (Primary Dx); Type 2 diabetes mellitus with stage 3 chronic kidney disease, without long-term current use of insulin, unspecified whether stage 3a or 3b CKD (CMS/HCC); Encounter for immunization Social History Tobacco Use Types Packs/Day Years [...] the past 12 months, has t he [place], gas, oil or water [employer] threatened to shut off services in your [...] Sign Reading Time Taken Comments Blood Pressure 130/92 01/28/2025 11:08 AM EDT Pulse 76 01/28/2025 11:08 AM EDT Temperature 36.1 C (96.9 F) 01/28/2025 11:08 AM EDT Respiratory Rate 15 01/28/2025 11:08 AM EDT Oxygen Saturation 95% 01/28/2025 11:08 AM EDT Inhaled Oxygen Concentration - - Weight 104 kg (229 lb) 01/28/2025 11:08 AM EDT Height 170.2 cm (5' 7 ) 01/28/2025 11:08 AM EDT Body Mass Index 35.87 01/28/2025 11:08 AM EDT documented in this encounter Plan of Treatment Upcoming Encounters Date Type Department Care Team (Late st Contact Info) Description 05/03/2025 1:00 PM EST Clinical Support [facility] MEDICINE [address] [place] [address] Amanda Waldrop RN 06/22/2025 1:00 PM EST Office Visit [facility] ADULT DENTAL [address] [place] [address] Gloria Corey [address] [place] [address] Scheduled Orders Name Type Priority Associated Diagnoses Orde r Schedule Lipid Panel, Standard Lab Routine Type 2 diabetes mellitus with stage 3 chronic kidney disease, without long-term current use of insulin, unspecified whether stage 3a or 3b CKD (CMS/HCC) Expected: 01/28/2025 (Approximate), Expires: 01/28/2026 Albumin, Random Urine W/Creatinine Lab Routine Type 2 diabetes mellitus with stage 3 chronic kidney disease, without long-term current use of insulin, unspecified whether stage 3a or 3b CKD (CMS/HCC) Expected: 01/28/2025 (Approximate), Expires: 01/28/2026 Comprehensive Metabolic Panel Lab Routine Type 2 diabetes mellitus with stage 3 chronic kidney disease, without long-term current use of insulin, unspecified whether stage 3a or 3b CKD (CMS/HCC) Expected: 01/28/2025 (Approximate), Expires: 01/28/2026 documented as of this encounter Procedures Procedure Name Priority Date/Time Associated Diagnosis Comments POCT GLUCOSE Routine 01/28/2025 11:42 AM EDT Type 2 diabetes mellitus with stage 3 chronic kidney disease, without long-term current use of insulin, unspecified whether stage 3a or 3b CKD (CMS/HCC) documented in this encounter Results * POCT Glucose (01/28/2025 11:42 AM EDT) [facility] Glucose Blood, POC 102 60 - 200 mg/dL QC Media Lot # [id number] Lot# Expiration Date Blood Capillary blood specimen / Unknown 01/28/2025 11:42 AM EDT Kalpana Steele MD POINT OF CARE TEST EN TER/EDIT ORDERABLES Final Result documented in this encounter Visit Diagnoses Diagnosis CKD stage 3 due to type 2 diabetes mellitus ([facility])- Primary Type 2 diabetes mellitus with stage 3 chronic kidney disease, without long-term current use of insulin, unspecified whether stage 3a or 3b CKD ([facility]) Encounter for immunization documented in this encounter Additional Health Concerns Assessment Noted Time PHQ-9 Depression Total Score: 0 10/16/19 25 3:24 PM EDT documented as of this encounter Care Teams Stock Car Driver Relationship Specialty Start Date End Date Kalpana Baptiste MD [address] [place] [address] PCP - General Family Medicine 06/14/20 documented as of this encounter
[2025-01-28 13:04] LABS: MANUAL DIFF FLAG NO
[2025-01-28 13:31] LABS: Hematocrit 30.2 % (37.0-47.0); Hemoglobin 10.0 g/dl (12.0-16.0); Imm Gran Abs Auto 0.02 X10*3/uL (0.00-0.03); Imm Gran Pct Auto 0.4 % (0.0-0.4); Lymphocytes Absolute Auto 1.9 X10*3/uL (1.2-4.9); Mean Corpuscular HGB Conc 33.1 g/dl (31.0-35.0); Mean Corpuscular Hemoglobin 30.3 pg (27.0-33.0); Mean Corpuscular Volume 91.5 fL (80.0-98.0); NRBC Abs Auto 0.000 X10*3/uL (0.0-0.012); NRBC Pct Auto 0.0 /100WBC (0.0-0.2); Platelet Count 229 X10*3/uL (160-400); Red Blood Count 3.30 X10*6/uL (4.20-5.50); White Blood Count 4.6 X10*3/uL (4.8-10.8)
--- OUTSIDE RECORDS SUMMARY | 2025-01-28 13:47 | XMS_ITS | Encounter Summary ---
Author Organization [employer] Address [address] 7[address] [place] [address] Care Team Providers Care Platform Architect Name Role Phone Kalpana Baptiste MD Primary Care Provide r Betsy Wray RN Unavailable [phone] Erika Saldivar Unavailable Reason for Visit * Reason Comments Med Refill Encounter Details Date Type Department Care Team (Late st Contact Info) Description 07/14/2023 Refill [facility] MEDICINE [address] [place], [place] [phone] Caryl Biggs MD [address] [place], [place] [phone] Primary osteoarthritis of both knees Social History [...] Description 05/03/2025 1:00 PM EST Clinical Support [facility] MEDICINE [address] [place] [address] Amanda Waldrop RN 06/22/2025 1:00 PM EST Office Visit [facility] ADULT DENTAL [address] [place] [address] Leora, Gloria [address] [place] [address] documented as of this encounter Visit Diagnoses Diagnosis Primary osteoarthritis of both knees documented in this encounter Additional Health Concerns Assessment Noted Time PHQ-9 Depression Total Score: 0 08/22/19 23 10:06 AM EDT documented as of this encounter Care Teams Platform Architect Relationship Specialty Start Date End Date Kalpana Baptiste MD [address] [place] [address] PCP - General Family Medicine 06/14/20 Betsy Wray RN [address] [place] [address] Registered Nurse Family Medicine 09/28/24 12/30/24 Erika Saldivar 09/28/24 01/10/25 documented as of this encounter
--- OUTSIDE RECORDS SUMMARY | 2025-01-28 13:47 | XMS_ITS | Encounter Summary ---
Author Organization [employer] Address [address] [facility] 7t [place] [address] Care Team Providers Care Emergency Dept Tech Name Role Phone Kalpana Baptiste MD Primary Care Provide r Betsy Wray RN Unavailable [phone] Erika Saldivar Unavailable Reason for Visit * Reason Comments Med Refill Encounter Details Date Type Department Care Team (Late st Contact Info) Description 07/24/2023 Refill [facility] MEDICINE [address] [place], [place] [phone] Kalpana Baptiste MD [address] [place], [place] [phone] Moderate persistent asthma without complication; Primary osteoarthritis [...] housing situation today? I have nora sing 02/18/[address] you li [...] Description 05/03/2025 1:00 PM EST Clinical Support [facility] MEDICINE [address] [place] [address] Amanda Waldrop RN 06/22/2025 1:00 PM EST Office Visit [facility] ADULT DENTAL [address] [place] [address] Leora Gloria [address] [place] [address] documented as of this encounter Visit Diagnoses Diagnosis Moderate persistent asthma without complication Primary osteoarthritis of both knees Chronic gout of multiple sites, unspecified cause documented in this encounter Additional Health Concerns Assessment Noted Time PHQ-9 Depression Total Score: 0 08/22/19 23 10:06 AM EDT documented as of this encounter Care Teams Emergency Dept Tech Relationship Specialty Start Date End Date Kalpana Baptiste MD [address] [place] [address] PCP - General Family Medicine 06/14/20 Betsy Wray, NEGAR [address] [place] [address] Registered Nurse Family Medicine 09/28/24 12/30/24 Erika Saldivar 09/28/24 01/10/25 documented as of this encounter
--- OUTSIDE RECORDS SUMMARY | 2025-01-28 13:47 | XMS_ITS | Encounter Summary ---
Author Organization [employer] Address [address] 7[address] [place] [address] Care Team Providers Care Aluminum Boat Inspector Name Role Phone Kalpana Baptiste MD Primary Care Provide r Betsy Wray RN Unavailable [phone] Erika Saldivar Unavailable Reason for Visit * Reason Comments Med Refill Encounter Details Date Type Department Care Team (Late st Contact Info) Description 07/10/2023 Refill [facility] [address] [place], [place] [phone] Caryl Biggs MD [address] [place], [place] [phone] Primary osteoarthritis of both knees Social History [...] EST Clinical Support [facility] [address] [place] [address] Amanda Waldrop RN 06/22/2025 1:00 PM EST Office Visit [facility] [address] [place] [address] Leora, Gloria [address] [place] [address] documented as of this encounter Visit Diagnoses Diagnosis Primary osteoarthritis of both knees documented in this encounter Additional Health Concerns Assessment Noted Time PHQ-9 Depression Total Score: 0 08/22/19 23 10:06 AM EDT documented as of this encounter Care Teams Aluminum Boat Inspector Relationship Specialty Start Date End Date Kalpana Baptiste MD [address] [place] [address] PCP - General Family Medicine 06/14/20 Betsy Wray RN [address] [place] [address] Registered Nurse Family Medicine 09/28/24 12/30/24 Erika Saldivar 09/28/24 01/10/25 documented as of this encounter
--- OUTSIDE RECORDS SUMMARY | 2025-01-28 13:47 | XMS_ITS | Encounter Summary ---
Author Organization [employer] Address [address] [facility] 7t [place] [address] Care Team Providers Care Camp Director Name Role Phone Kalpana Baptiste MD Primary Care Provide r Betsy Wray RN Unavailable [phone] Erika Saldivar Unavailable Reason for Visit * Reason Comments Med Refill Encounter Details Date Type Department Care Team (Late st Contact Info) Description 08/05/2024 Refill [facility] MEDICINE [address] [place], [place] [phone] Caryl Biggs MD [address] [place], [place] [phone] Social History Tobacco Use Types Packs/Day Years [...] your housing situation today? I have nora brad 05/06/[address] you li [...] Description 05/03/2025 1:00 PM EST Clinical Support [facility] MEDICINE [address] [place] [address] Amanda Waldrop RN 06/22/2025 1:00 PM EST Office Visit [facility] ADULT DENTAL [address] [place], [place] [phone] Leora, Gloria [address] [place] [address] documented as of this encounter Visit Diagnoses Not on filedocumented in this encounter Additional Health Concerns Assessment Noted Time PHQ-9 Depression Total Score: 0 05/06/19 25 2:15 PM EST documented as of this encounter Care Teams Camp Director Relationship Specialty Start Date End Date Kalpana Baptiste MD [address] [place] [address] PCP - General Family Medicine 06/14/20 Betsy Wray RN [address] [place] [address] Registered Nurse Family Medicine 09/28/24 12/30/24 Erika Saldivar 09/28/24 01/10/25 documented as of this encounter
--- OUTSIDE RECORDS SUMMARY | 2025-01-28 13:48 | XMS_ITS | Encounter Summary ---
Author Organization [employer] Address [address] [facility] 7t [place] [address] Care Team Providers Care Steamtable Attendant Railroad Name Role Phone Kalpana Baptiste MD Primary Care Provide r Betsy Wray RN Unavailable [phone] Erika Saldivar Unavailable Reason for Visit * Reason Comments Med Refill Encounter Details Date Type Department Care Team (Late st Contact Info) Description 07/28/2023 Refill [facility] [address] [place], [place] [phone] Caryl Biggs MD [address] [place], [place] [phone] Chronic tension-type headache, not intractable Social History [...] Description 05/03/2025 1:00 PM EST Clinical Support [facility] [address] [place] [address] Amanda Waldrop RN 06/22/2025 1:00 PM EST Office Visit [facility] ADULT DENTAL [address] [place] [address] Leora, Gloria [address] [place] [address] documented as of this encounter Visit Diagnoses Diagnosis Chronic tension-type headache, not intractable Chronic tension type headache documented in this encounter Additional Health Concerns Assessment Noted Time PHQ-9 Depression Total Score: 0 08/22/19 23 10:06 AM EDT documented as of this encounter Care Teams Steamtable Attendant Railroad Relationship Specialty Start Date End Date Kalpana Baptiste MD [address] [place] [address] PCP - General Family Medicine 06/14/20 Betsy Wray RN [address] [place] [address] Registered Nurse Family Medicine 09/28/24 12/30/24 Erika Saldivar 09/28/24 01/10/25 documented as of this encounter
--- OUTSIDE RECORDS SUMMARY | 2025-01-28 13:48 | XMS_ITS | Encounter Summary ---
Author Organization [employer] Address 75 [facility] 7t [place] [address] Care Team Providers Care Can Patcher Name Role Phone Kalpana Baptiste MD Primary Care Provide r Betsy Wray RN Unavailable [phone] Erika Saldivar Unavailable Reason for Visit * Reason Comments Med Refill Encounter Details Date Type Department Care Team (Late st Contact Info) Description 08/28/2023 Refill [facility] MEDICINE [address] [place], [place] [phone] Kalpana Baptiste MD 230 [place], [place] [phone] Primary osteoarthritis of both knees Social History [...] 1:00 PM EST Clinical Support [facility] MEDICINE 230 [place] [address] Amanda Waldrop RN 06/22/2025 1:00 PM EST Office Visit [facility] ADULT DENTAL 230 [place] [address] Leora, Gloria 230 [place] [address] documented as of this encounter Visit Diagnoses Diagnosis Primary osteoarthritis of both knees documented in this encounter Additional Health Concerns Assessment Noted Time PHQ-9 Depression Total Score: 0 08/22/19 23 10:06 AM EDT documented as of this encounter Care Teams Can Patcher Relationship Specialty Start Date End Date Kalpana Baptiste MD 230 [place] [address] PCP - General Family Medicine 06/14/20 Betsy Wray RN 505 [place] [address] Registered Nurse Family Medicine 09/28/24 12/30/24 Erika Saldivar 09/28/24 01/10/25 documented as of this encounter
--- OUTSIDE RECORDS SUMMARY | 2025-01-28 13:48 | XMS_ITS | Encounter Summary ---
Author Organization [employer] Address 75 [facility] 7t [place] [address] Care Team Providers Care Boom Cat Operator Name Role Phone Kalpana Baptiste MD Primary Care Provide r Betsy Wray RN Unavailable [phone] Erika Saldivar Unavailable Reason for Visit * Reason Comments Med Refill Encounter Details Date Type Department Care Team (Late st Contact Info) Description 07/24/2023 Refill [facility] MEDICINE 230 [place], [place] [phone] Caryl Biggs MD 230 [place], [place] [phone] Chronic tension-type headache, not intractable Social History [...] Description 05/03/2025 1:00 PM EST Clinical Support [facility] MEDICINE 230 [place] [address] Amanda Waldrop RN 06/22/2025 1:00 PM EST Office Visit [facility] ADULT DENTAL 230 [place] [address] Leora, Gloria 230 [place] [address] documented as of this encounter Visit Diagnoses Diagnosis Chronic tension-type headache, not intractable Chronic tension type headache documented in this encounter Additional Health Concerns Assessment Noted Time PHQ-9 Depression Total Score: 0 08/22/19 23 10:06 AM EDT documented as of this encounter Care Teams Boom Cat Operator Relationship Specialty Start Date End Date Kalpana Baptiste MD 230 [place] [address] PCP - General Family Medicine 06/14/20 Betsy Wray RN [address] [place] [address] Registered Nurse Family Medicine 09/28/24 12/30/24 Erika Saldivar 09/28/24 01/10/25 documented as of this encounter
--- OUTSIDE RECORDS SUMMARY | 2025-01-28 13:48 | XMS_ITS | Encounter Summary ---
Author Organization [employer] Address 75 [facility] 7t [place] [address] Care Team Providers Care Pharmaceutical Laboratory Technician Name Role Phone Kalpana Baptiste MD Primary Care Provide r Betsy Wray RN Unavailable [phone] Erika Saldivar Unavailable Reason for Visit * Reason Comments Med Refill Encounter Details Date Type Department Care Team (Late st Contact Info) Description 08/22/2023 Refill [facility] MEDICINE 230 [place], [place] [phone] Kalpana Baptiste MD 230 [place], [place] [phone] Primary osteoarthritis of both knees Social History [...] Description 05/03/2025 1:00 PM EST Clinical Support [facility] MEDICINE 230 [place] [address] Amanda Waldrop RN 06/22/2025 1:00 PM EST Office Visit [facility] ADULT DENTAL 230 [place] [address] Leora, Gloria 230 [place] [address] documented as of this encounter Visit Diagnoses Diagnosis Primary osteoarthritis of both knees documented in this encounter Additional Health Concerns Assessment Noted Time PHQ-9 Depression Total Score: 0 08/22/19 23 10:06 AM EDT documented as of this encounter Care Teams Pharmaceutical Laboratory Technician Relationship Specialty Start Date End Date Kalpana Baptiste MD 230 [place] [address] PCP - General Family Medicine 06/14/20 Betsy Wray RN 505 [place] [address] Registered Nurse Family Medicine 09/28/24 12/30/24 Erika Saldivar 09/28/24 01/10/25 documented as of this encounter
--- OUTSIDE RECORDS SUMMARY | 2025-01-28 13:48 | XMS_ITS | Encounter Summary ---
Author Organization [employer] Address 75 [facility] 7t [place] [address] Care Team Providers Care Boxing Trainer Name Role Phone Kalpana Baptiste MD Primary Care Provide r Betsy Wray RN Unavailable [phone] Erika Saldivar Unavailable Reason for Visit * Reason Comments Med Refill Encounter Details Date Type Department Care Team (Late st Contact Info) Description 06/06/2023 Refill [facility] MEDICINE 230 [place], [place] [phone] Kalpana Baptiste MD 230 [place], [place] [phone] Primary osteoarthritis of both knees; Chronic tension-type [...] Description 05/03/2025 1:00 PM EST Clinical Support [facility] MEDICINE 230 [place] [address] Amanda Waldrop RN 06/22/2025 1:00 PM EST Office Visit [facility] ADULT DENTAL 230 [place] [address] LeoraPierreGloria 230 [place] [address] documented as of this encounter Visit Diagnoses Diagnosis Primary osteoarthritis of both knees Chronic tension-type headache, not intractable Chronic tension type headache Heartburn documented in this encounter Additional Health Concerns Assessment Noted Time PHQ-9 Depression Total Score: 0 08/22/19 23 10:06 AM EDT documented as of this encounter Care Teams Boxing Trainer Relationship Specialty Start Date End Date Kalpana Baptiste MD 230 [place] [address] PCP - General Family Medicine 06/14/20 Betsy Wray, NEGAR [address] [place] [address] Registered Nurse Family Medicine 09/28/24 12/30/24 Erika Saldivar 09/28/24 01/10/25 documented as of this encounter
--- OUTSIDE RECORDS SUMMARY | 2025-01-28 13:48 | XMS_ITS | Encounter Summary ---
Author Organization [employer] Address 75 [facility] 7t [place] [address] Care Team Providers Care Arm Rest Builder Name Role Phone Kalpana Baptiste MD Primary Care Provide r Betsy Wray RN Unavailable [phone] Erika Saldivar Unavailable Reason for Visit * Reason Comments Med Refill Encounter Details Date Type Department Care Team (Late st Contact Info) Description 12/23/2024 Refill [facility] MEDICINE 230 [place], [place] [phone] Kalpana Baptiste MD 230 [place], [place] [phone] Primary osteoarthritis of both knees Social History [...] the past 12 months, has t he [employer], gas, oil or water [employer] threatened to shut off services in your [...] Description 05/03/2025 1:00 PM EST Clinical Support [facility] MEDICINE 230 [place] [address] Amanda Waldrop RN 06/22/2025 1:00 PM EST Office Visit [facility] ADULT DENTAL 230 [place] [address] Gloria Corey [address] [place] [address] documented as of this encounter Visit Diagnoses Diagnosis Primary osteoarthritis of both knees documented in this encounter Additional Health Concerns Assessment Noted Time PHQ-9 Depression Total Score: 0 10/16/19 25 3:24 PM EDT documented as of this encounter Care Teams Arm Rest Builder Relationship Specialty Start Date End Date Kalpana Baptiste MD 230 [place] [address] PCP - General Family Medicine 06/14/20 Betsy Wray RN 505 [place] [address] Registered Nurse Family Medicine 09/28/24 12/30/24 Erika Saldivar 09/28/24 01/10/25 documented as of this encounter
--- OUTSIDE RECORDS SUMMARY | 2025-01-28 13:48 | XMS_ITS | Encounter Summary ---
Author Organization [employer] Address [address] [facility] [address] 7t [place] [address] Care Team Providers Care Synoptic Meteorologist Name Role Phone Kalpana Baptiste MD Primary Care Provide r Betsy Wray RN Unavailable [phone] Erika Saldivar Unavailable Reason for Visit * Reason Comments Med Refill Encounter Details Date Type Department Care Team (Late st Contact Info) Description 06/29/2023 Refill [facility] MEDICINE 230 [place], [place] [phone] Caryl Biggs MD 230 [place], [place] [phone] Primary osteoarthritis of both knees Social History [...] Description 05/03/2025 1:00 PM EST Clinical Support [facility] MEDICINE 230 [place] [address] Amanda Waldrop RN 06/22/2025 1:00 PM EST Office Visit [facility] ADULT DENTAL 230 [place] [address] Leora, Gloria [address] [place] [address] documented as of this encounter Visit Diagnoses Diagnosis Primary osteoarthritis of both knees documented in this encounter Additional Health Concerns Assessment Noted Time PHQ-9 Depression Total Score: 0 08/22/19 23 10:06 AM EDT documented as of this encounter Care Teams Synoptic Meteorologist Relationship Specialty Start Date End Date Kalpana Baptiste MD 230 [place] [address] PCP - General Family Medicine 06/14/20 Betsy Wray RN 505 [place] [address] Registered Nurse Family Medicine 09/28/24 12/30/24 Erika Saldivar 09/28/24 01/10/25 documented as of this encounter
--- OUTSIDE RECORDS SUMMARY | 2025-01-28 13:48 | XMS_ITS | Encounter Summary ---
Author Organization [facility] Address [address] [place] [address] Care Team Providers Care Temperature Regulator Pyrometer Name Role Phone Kalpana Baptiste MD Primary Care Provider Encounter Details Date Type Department Care Team (Late Contact Info) Description 01/17/2016 Orders Only [facility] [address] [address] Aylin Gunn PA [address] [place] [address] [place]ematology[place] [address] Social History Tobacco Use Types Packs/Day Years Used Date Smoking Tobacco: Never Assessed Comments Unknown Sex and Gender Information Value Date Recorded Sex Assigned at Not on file Legal Sex Female 8:19 AM EDT Gender Identity Not on file Sexual Orientation Not on file documented as of this encounter Plan of Treatment Upcoming Encounters Date Type Department Care Team (Late Contact Info) Description 02/16/2025 9:00 AM EDT Lab [facility] BMT [address] [address] 02/16/2025 10:00 AM EDT Follow-Up [address] [address] Vickie Victor NP [address] [place] [address] documented as of this encounter Visit Diagnoses Not on filedocumented in this encounter Care Teams Temperature Regulator Pyrometer Relationship Specialty Start Date End Date Kalpana Baptiste MD 230 [place] [address] PCP - General 11/22/20 documented as of this encounter
--- OUTSIDE RECORDS SUMMARY | 2025-01-28 13:48 | XMS_ITS | Encounter Summary ---
Author Organization [employer] Address 75 [facility] 7t [place] [address] Care Team Providers Care Concrete Products Machine Operator Name Role Phone Kalpana Baptiste MD Primary Care Provide r Betsy Wray RN Unavailable [phone] Erika Saldivar Unavailable Reason for Visit * Reason Comments Med Refill Encounter Details Date Type Department Care Team ([facility] st Contact Info) Description 08/23/2022 Refill [facility] MEDICINE 230 [place], [place] [phone] Kalpana Baptiste MD 230 [place], [place] [phone] Primary osteoarthritis of both knees Social History [...] Description 05/03/2025 1:00 PM EST Clinical Support [facility] MEDICINE 230 [place], [place] [phone] Amanda Waldrop RN 06/22/2025 1:00 PM EST Office Visit [facility] ADULT DENTAL 230 [place], [place] [phone] Leora, Gloria 230 [place] [address] documented as of this encounter Visit Diagnoses Diagnosis Primary osteoarthritis of both knees documented in this encounter Additional Health Concerns Assessment Noted Time PHQ-9 Depression Total Score: 0 08/22/19 23 10:06 AM EDT documented as of this encounter Care Teams Concrete Products Machine Operator Relationship Specialty Start Date End Date Kalpana Baptiste MD 230 [place] [address] PCP - General Family Medicine 06/14/20 Betsy Wray RN 505 [place] [address] Registered Nurse Family Medicine 09/28/24 12/30/24 Eirka Saldivar 09/28/24 01/10/25 documented as of this encounter
--- OUTSIDE RECORDS SUMMARY | 2025-01-28 13:48 | XMS_ITS | Encounter Summary ---
Author Organization [employer] Address 75 [facility] 7t [place] [address] Care Team Providers Care Wringer Operator Name Role Phone Kalpana Baptiste MD Primary Care Provide r Betsy Wray RN Unavailable [phone] Erika Saldivar Unavailable Reason for Visit * Reason Onset Date Comments Med Refill 07/27/2024 Encounter Details Date Type Department Care Team ([facility] st Contact Info) Description 07/27/2024 Telephone [facility] MEDICINE 230 [place], [place] [phone] Kalpana Baptiste MD 230 [place], [place] [phone] Med Refill Social History Tobacco Use Types [...] 50 MG tablet To be sent to: [facility] - [address] documented in this encounter Plan of Treatment Upcoming Encounters Date Type Department Care Team (Late st Contact Info) Description 05/03/2025 1:00 PM EST Clinical Support [facility] MEDICINE 230 [place] [address] Amanda Waldrop RN 06/22/2025 1:00 PM EST Office Visit [facility] ADULT DENTAL 230 [place], [place] [phone] Gloria Corey 230 [place] [address] documented as of this encounter Visit Diagnoses Not on filedocumented in this encounter Additional Health Concerns Assessment Noted Time PHQ-9 Depression Total Score: 0 05/06/19 25 2:15 PM EST documented as of this encounter Care Teams Wringer Operator Relationship Specialty Start Date End Date Kalpana Baptiste MD 230 [place] [address] PCP - General Family Medicine 06/14/20 Betsy Wray RN 505 [place] [address] Registered Nurse Family Medicine 09/28/24 12/30/24 Erika Saldivar 09/28/24 01/10/25 documented as of this encounter
--- OUTSIDE RECORDS SUMMARY | 2025-01-28 13:48 | XMS_ITS | Encounter Summary ---
Author Organization [employer] Address 75 [facility] 7[place] [address] Care Team Providers Care Aluminizer Name Role Phone Kalpana Baptiste MD Primary Care Provide r Betsy Wray RN Unavailable [phone] Erika Saldivar Unavailable Reason for Visit * Reason Comments Med Refill Encounter Details Date Type Department Care Team (Late Contact Info) Description 12/09/2022 Refill [facility] MEDICINE [address] [place] [phone] Abe Dial AGNP Indigestion; Overactive bladder Social [...] Department Care Team (Late Contact Info) Description 05/03/2025 1:00 PM EST Clinical Support [facility] [address] [place] [phone] Amanda Waldrop RN 06/22/2025 1:00 PM EST Office Visit [facility] ADULT DENTAL 230 [place], [place] [phone] Gloria Corey 230 [place], [place] [phone] documented as of this encounter Visit Diagnoses Diagnosis Indigestion Dyspepsia and other specified disorders of function of stomach Overactive bladder Hypertonicity of bladder documented in this encounter Additional Health Concerns Assessment Noted Time PHQ-9 Depression Total Score: 0 08/22/19 23 10:06 AM EDT documented as of this encounter Care Teams Aluminizer Relationship Specialty Start Date End Date Kalpana Baptiste MD 230 [place], [place] [phone] PCP - General Family Medicine 06/14/20 Betsy Wray RN 505 [place] [address] Registered Nurse Family Medicine 09/28/24 12/30/24 Erika Saldivar 09/28/24 01/10/25 documented as of this encounter
--- OUTSIDE RECORDS SUMMARY | 2025-01-28 13:48 | XMS_ITS | Encounter Summary ---
Author Organization [employer] Address [address] [facility] [address] 7t [place] [address] Care Team Providers Care Riffler Tender Name Role Phone Kalpana Baptiste MD Primary Care Provide r Betsy Wray RN Unavailable [phone] Erika Saldivar Unavailable Encounter Details Date Type Department Care Team ([facility] st Contact Info) Description 08/29/2023 Telephone [facility] MEDICINE 230 [place], [place] [phone] Kalpana Baptiste MD 230 [place] [address] Social History Tobacco Use Types Packs/Day Years [...] Description 05/03/2025 1:00 PM EST Clinical Support [facility] MEDICINE 230 [place] [address] Amanda Waldrop RN 06/22/2025 1:00 PM EST Office Visit [facility] ADULT DENTAL 230 [place] [address] Leora, Gloria 230 [place] [address] documented as of this encounter Visit Diagnoses Not on filedocumented in this encounter Additional Health Concerns Assessment Noted Time PHQ-9 Depression Total Score: 0 08/22/19 23 10:06 AM EDT documented as of this encounter Care Teams Riffler Tender Relationship Specialty Start Date End Date Kalpana Baptiste MD 230 [place] [address] PCP - General Family Medicine 06/14/20 Betsy Wray RN 505 [place] [address] Registered Nurse Family Medicine 09/28/24 12/30/24 Erika Saldivar 09/28/24 01/10/25 documented as of this encounter
--- OUTSIDE RECORDS SUMMARY | 2025-01-28 13:48 | XMS_ITS | Encounter Summary ---
Author Organization [employer] Address 75 [facility] 7t [place] [address] Care Team Providers Care Sofa Back Upholsterer Name Role Phone Kalpana Baptiste MD Primary Care Provide r Betsy Wray RN Unavailable [phone] Erika Saldivar Unavailable Reason for Visit * Reason Comments Med Refill Encounter Details Date Type Department Care Team (Late st Contact Info) Description 08/02/2024 Refill [facility] MEDICINE 230 [place], [place] [phone] Kalpana Baptiste MD 230 [place], [place] [phone] Primary osteoarthritis of both knees Social History [...] Description 05/03/2025 1:00 PM EST Clinical Support [facility] MEDICINE 230 [place] [address] Amanda Waldrop RN 06/22/2025 1:00 PM EST Office Visit [facility] ADULT DENTAL 230 [place] [address] Pierre Coreyaris [address] [place] [address] documented as of this encounter Visit Diagnoses Diagnosis Primary osteoarthritis of both knees documented in this encounter Additional Health Concerns Assessment Noted Time PHQ-9 Depression Total Score: 0 05/06/19 25 2:15 PM EST documented as of this encounter Care Teams Sofa Back Upholsterer Relationship Specialty Start Date End Date Kalpana Baptiste MD 230 [place] [address] PCP - General Family Medicine 06/14/20 Betsy Wray RN 505 [place] [address] Registered Nurse Family Medicine 09/28/24 12/30/24 Erika Saldivar 09/28/24 01/10/25 documented as of this encounter
--- OUTSIDE RECORDS SUMMARY | 2025-01-28 13:48 | XMS_ITS | Encounter Summary ---
Author Organization [employer] Address [address] [facility] [address] 7t [place] [address] Care Team Providers Care Pet Handler Name Role Phone Kalpana Baptiste MD Primary Care Provide r Betsy Wray RN Unavailable [phone] Erika Saldivar Unavailable Reason for Visit * Reason Comments Med Refill Encounter Details Date Type Department Care Team (Late st Contact Info) Description 07/08/2023 Refill [facility] MEDICINE 230 [place], [place] [phone] Caryl Biggs MD 230 [place], [place] [phone] Primary osteoarthritis of both knees Social History [...] Description 05/03/2025 1:00 PM EST Clinical Support [facility] MEDICINE 230 [place] [address] Amanda Waldrop RN 06/22/2025 1:00 PM EST Office Visit [facility] ADULT DENTAL [address] [place] [address] Leora, Gloria [address] [place] [address] documented as of this encounter Visit Diagnoses Diagnosis Primary osteoarthritis of both knees documented in this encounter Additional Health Concerns Assessment Noted Time PHQ-9 Depression Total Score: 0 08/22/19 23 10:06 AM EDT documented as of this encounter Care Teams Pet Handler Relationship Specialty Start Date End Date Kalpana Baptiste MD 230 [place] [address] PCP - General Family Medicine 06/14/20 Betsy Wray RN 505 [place] [address] Registered Nurse Family Medicine 09/28/24 12/30/24 Erika Saldivar 09/28/24 01/10/25 documented as of this encounter
--- OUTSIDE RECORDS SUMMARY | 2025-01-28 13:48 | XMS_ITS | Encounter Summary ---
Author Organization [employer] Address 75 [facility] 7t [place] [address] Care Team Providers Care Line Service Supervisor Name Role Phone Kalpana Baptiste MD Primary Care Provide r Betsy Wray RN Unavailable [phone] Erika Saldivar Unavailable Reason for Visit * Reason Comments Med Refill Encounter Details Date Type Department Care Team (Late st Contact Info) Description 09/19/2023 Refill [facility] MEDICINE 230 [place], [place] [phone] Kalpana Baptiste MD 230 [place], [place] [phone] Primary osteoarthritis of both knees; Chronic tension-type [...] Description 05/03/2025 1:00 PM EST Clinical Support [facility] MEDICINE 230 [place] [address] Amanda Waldrop RN 06/22/2025 1:00 PM EST Office Visit [facility] ADULT DENTAL 230 [place] [address] Leora, Gloria [address] [place] [address] documented as of this encounter Visit Diagnoses Diagnosis Primary osteoarthritis of both knees Chronic tension-type headache, not intractable Chronic tension type headache Dry eyes Unspecified tear film insufficiency documented in this encounter Additional Health Concerns Assessment Noted Time PHQ-9 Depression Total Score: 0 08/22/19 23 10:06 AM EDT documented as of this encounter Care Teams Line Service Supervisor Relationship Specialty Start Date End Date Kalpana Baptiste MD 230 [place] [address] PCP - General Family Medicine 06/14/20 Betsy Wray, NEGAR 505 [place] [address] Registered Nurse Family Medicine 09/28/24 12/30/24 Erika Saldivar 09/28/24 01/10/25 documented as of this encounter
--- OUTSIDE RECORDS SUMMARY | 2025-01-28 13:48 | XMS_ITS | Encounter Summary ---
Author Organization [employer] Address [address] [facility] [address] 7[address] [place] [address] Care Team Providers Care Fashion Show Director Name Role Phone Kalpnaa Baptiste MD Primary Care Provide r Betsy Wray RN Unavailable [phone] Erika Saldivar Unavailable Reason for Visit * Reason Comments Med Refill Encounter Details Date Type Department Care Team (Late st Contact Info) Description 09/15/[address] [facility] MEDICINE 230 [place] [address] Neida Garrett DO 230 [place], [place] [phone] Heartburn Social History Tobacco Use Types Packs/Day [...] Description 05/03/2025 1:00 PM EST Clinical Support [facility] MEDICINE 230 [place] [address] Amanda Waldrop RN 06/22/2025 1:00 PM EST Office Visit [facility] ADULT DENTAL [address] [place] [address] Gloria Corey [address] [place] [address] documented as of this encounter Visit Diagnoses Diagnosis Heartburn documented in this encounter Additional Health Concerns Assessment Noted Time PHQ-9 Depression Total Score: 0 08/22/19 23 10:06 AM EDT documented as of this encounter Care Teams Fashion Show Director Relationship Specialty Start Date End Date Kalpana Baptiste MD 230 [place] [address] PCP - General Family Medicine 06/14/20 Betsy Wray RN 505 [place] [address] Registered Nurse Family Medicine 09/28/24 12/30/24 Erika Saldivar 09/28/24 01/10/25 documented as of this encounter
--- OUTSIDE RECORDS SUMMARY | 2025-01-28 13:48 | XMS_ITS | Encounter Summary ---
Author Organization [facility] Address [address] [place] [address] Care Team Providers Care Fur Liner Name Role Phone Kalpana Baptiste MD Primary Care Provider Encounter Details Date Type Department Care Team (Late Contact Info) Description 01/15/2016 Orders Only [facility] [address] [address] Aylin Gunn PA [address] [place] [address] [place]ematology[place] [address] Social History Tobacco Use Types Packs/Day Years [...] Info) Description 02/16/2025 9:00 AM EDT Lab [facility] BMT [address] [address] 02/16/2025 10:00 AM EDT Follow-Up [address] [address] Vickie Victor NP [address] [place] [address] documented as of this encounter Visit Diagnoses Not on filedocumented in this encounter Care Teams Fur Liner Relationship Specialty Start Date End Date Kalpana Baptiste MD [address] [place] [address] PCP - General 11/22/20 documented as of this encounter
--- OUTSIDE RECORDS SUMMARY | 2025-01-28 13:48 | XMS_ITS | Encounter Summary ---
Author Organization [employer] Address [address] [facility] 7t [place] [address] Care Team Providers Care Account Resolution Analyst Name Role Phone Kalpana Baptiste MD Primary Care Provide r Betsy Wray RN Unavailable [phone] Erika Saldivar Unavailable Reason for Visit * Reason Comments Med Refill Encounter Details Date Type Department Care Team (Late st Contact Info) Description 12/26/2023 Refill [facility] MEDICINE [address] [place], [place] [phone] Kalpana Baptiste MD [address] [place], [place] [phone] Other hyperlipidemia; Chronic gout of multiple sites, [...] Description 05/03/2025 1:00 PM EST Clinical Support [facility] MEDICINE [address] [place] [address] Amanda Waldrop RN 06/22/2025 1:00 PM EST Office Visit [facility] ADULT DENTAL [address] [place] [address] Pierre Coreyaris [address] [place] [address] documented as of this encounter Visit Diagnoses Diagnosis Other hyperlipidemia Chronic gout of multiple sites, unspecified cause Abdominal pain, epigastric Allergic rhinitis, unspecified seasonality, unspecified trigger Moderate persistent asthma without complication documented in this encounter Additional Health Concerns Assessment Noted Time PHQ-9 Depression Total Score: 0 08/22/19 23 10:06 AM EDT documented as of this encounter Care Teams Account Resolution Analyst Relationship Specialty Start Date End Date Kalpana Baptiste MD [address] [place] [address] PCP - General Family Medicine 06/14/20 Betsy Wray RN [address] [place] [address] Registered Nurse Family Medicine 09/28/24 12/30/24 Erika Saldivar 09/28/24 01/10/25 documented as of this encounter
--- OUTSIDE RECORDS SUMMARY | 2025-01-28 13:48 | XMS_ITS | Encounter Summary ---
Author Organization [employer] Address 75 [facility] 7t [place] [address] Care Team Providers Care Printed Circuit Board Designer Name Role Phone Kalpana Baptiste MD Primary Care Provide r Betsy Wray RN Unavailable [phone] Erika Saldivar Unavailable Reason for Visit * Reason Comments Med Refill Encounter Details Date Type Department Care Team (Late st Contact Info) Description 09/15/2023 Refill [facility] MEDICINE [address] [place], [place] [phone] Kalpana Baptiste MD [address] [place], [place] [phone] Chronic tension-type headache, not intractable; Dry eyes; [...] Description 05/03/2025 1:00 PM EST Clinical Support [facility] MEDICINE [address] [place] [address] Amanda Waldrop RN 06/22/2025 1:00 PM EST Office Visit [facility] ADULT DENTAL [address] [place] [address] Leora, Gloria [address] [place] [address] documented as of this encounter Visit Diagnoses Diagnosis Chronic tension-type headache, not intractable Chronic tension type headache Dry eyes Unspecified tear film insufficiency Primary osteoarthritis of both knees documented in this encounter Additional Health Concerns Assessment Noted Time PHQ-9 Depression Total Score: 0 08/22/19 23 10:06 AM EDT documented as of this encounter Care Teams Printed Circuit Board Designer Relationship Specialty Start Date End Date Kalpana Baptiste MD [address] [place] [address] PCP - General Family Medicine 06/14/20 Betsy Wray, NEGAR [address] [place] [address] Registered Nurse Family Medicine 09/28/24 12/30/24 Erika Saldivar 09/28/24 01/10/25 documented as of this encounter
--- OUTSIDE RECORDS SUMMARY | 2025-01-28 13:48 | XMS_ITS | Encounter Summary ---
Author Organization [employer] Address 75 [facility] 7t [place] [address] Care Team Providers Care Principal Ios Developer Name Role Phone Kalpana Baptiste MD Primary Care Provide r Betsy Wray RN Unavailable [phone] Erika Saldivar Unavailable Reason for Visit * Reason Comments Med Refill Encounter Details Date Type Department Care Team (Late Contact Info) Description 11/20/2022 Refill [facility] MEDICINE [address] [place] [address] Abe Dial AGNP Overactive bladder Social History [...] Description 05/03/2025 1:00 PM EST Clinical Support [facility] MEDICINE [address] [place] [address] Amanda Waldrop RN 06/22/2025 1:00 PM EST Office Visit [facility] ADULT DENTAL [address] [place] [phone] Gloria Corey [address] [place], [place] [phone] documented as of this encounter Visit Diagnoses Diagnosis Overactive bladder Hypertonicity of bladder documented in this encounter Additional Health Concerns Assessment Noted Time PHQ-9 Depression Total Score: 0 08/22/19 23 10:06 AM EDT documented as of this encounter Care Teams Principal Ios Developer Relationship Specialty Start Date End Date Kalpana Baptiste MD [address] [place], [place] [phone] PCP - General Family Medicine 06/14/20 Betsy Wray RN [address] [place] [address] Registered Nurse Family Medicine 09/28/24 12/30/24 Erika Saldivar 09/28/24 01/10/25 documented as of this encounter
--- OUTSIDE RECORDS SUMMARY | 2025-01-28 13:48 | XMS_ITS | Encounter Summary ---
Author Organization [employer] Address [address] [facility] [address] 7t [place] [address] Care Team Providers Care Industrial Maintenance Technician Name Role Phone Kalpana Baptiste MD Primary Care Provide r Reason for Visit * Reason Comments Med Refill Encounter Details Date Type Department Care Team ([facility] st Contact Info) Description 01/13/2025 Refill [facility] MEDICINE [address] [place], [place] [phone] Kalpana Baptiste MD 230 [place] [address] Primary osteoarthritis of both knees Social History [...] Clinical Support [facility] MEDICINE [address] [place] [address] Amanda Waldrop RN 06/22/2025 1:00 PM EST Office Visit [facility] ADULT DENTAL [address] [place] [address] Gloria Corey [address] [place] [address] documented as of this encounter Visit Diagnoses Diagnosis Primary osteoarthritis of both knees documented in this encounter Additional Health Concerns Assessment Noted Time PHQ-9 Depression Total Score: 0 10/16/19 25 3:24 PM EDT documented as of this encounter Care Teams Industrial Maintenance Technician Relationship Specialty Start Date End Date Kalpana Baptiste MD [address] [place] [address] PCP - General Family Medicine 06/14/20 documented as of this encounter
--- OUTSIDE RECORDS SUMMARY | 2025-01-28 13:48 | XMS_ITS | Encounter Summary ---
Author Organization [employer] Address 75 [facility] 7t [place] [address] Care Team Providers Care Hydrostatic Tester Name Role Phone Kalpana Baptiste MD Primary Care Provide r Betsy Wray RN Unavailable [phone] Erika Saldivar Unavailable Reason for Visit * Reason Comments Med Refill Encounter Details Date Type Department Care Team (Late st Contact Info) Description 07/25/2023 Refill [facility] [address] [place], [place] [phone] Kalpana Baptiste MD [address] [place], [place] [phone] Chronic gout of multiple sites, unspecified cause; [...] [facility] [address] [place] [address] Amanda Waldrop RN 06/22/2025 1:00 PM EST Office Visit [facility] ADULT [facility]AL [address] [place] [address] Leora Gloria [address] [place] [address] documented as of this encounter Visit Diagnoses Diagnosis Chronic gout of multiple sites, unspecified cause Primary osteoarthritis of both knees Moderate persistent asthma without complication documented in this encounter Additional Health Concerns Assessment Noted Time PHQ-9 Depression Total Score: 0 08/22/19 23 10:06 AM EDT documented as of this encounter Care Teams Hydrostatic Tester Relationship Specialty Start Date End Date Kalpana Baptiste MD [address] [place] [address] PCP - General Family Medicine 06/14/20 Betsy Wray, NEGAR [address] [place] [address] Registered Nurse Family Medicine 09/28/24 12/30/24 Erika Saldivar 09/28/24 01/10/25 documented as of this encounter
--- OUTSIDE RECORDS SUMMARY | 2025-01-28 13:48 | XMS_ITS | Encounter Summary ---
Author Organization [employer] [facility] Address [address] [facility] 7t [place] [address] Care Team Providers Care Home Manager Name Role Phone Kalpana Baptiste MD Primary Care Provide r Betsy Wray RN Unavailable [phone] Erika Saldivar Unavailable Reason for Visit * Reason Comments Med Refill Encounter Details Date Type Department Care Team ([facility] Contact Info) Description 08/15/2022 Refill [facility] MEDICINE [address] [place], [place] [phone] Kalpana Baptiste MD [address] [place], [place] [phone] Primary osteoarthritis of both knees Social History [...] [facility] Info) Description 05/03/2025 1:00 PM EST Clinical Support [facility] MEDICINE [address] [place] [address] Amanda Waldrop, NEGAR 06/22/2025 1:00 PM EST Office Visit [facility] ADULT DENTAL [address] [place], [place] [phone] Gloria Corey [address] [place], [place] [phone] documented as of this encounter Visit Diagnoses Diagnosis Primary osteoarthritis of both knees documented in this encounter Care Teams Home Manager Relationship Specialty Start Date End Date Kalpana Baptiste MD [address] [place], [place] [phone] PCP - General Family Medicine 06/14/20 Betsy Wray RN [address] [place] [address] Registered Nurse Family Medicine 09/28/24 12/30/24 Erika Saldivar 09/28/24 01/10/25 documented as of this encounter
--- OUTSIDE RECORDS SUMMARY | 2025-01-28 13:48 | XMS_ITS | Encounter Summary ---
Author Organization [employer] [facility] [employer] Address 75 [facility] 7t [place] [address] Care Team Providers Care Zipper Joiner Name Role Phone Kalpana Baptiste MD Primary Care Provide r Betsy Wray RN Unavailable [phone] Erika Saldivar Unavailable Reason for Visit * Reason Comments Med Refill Encounter Details Date Type Department Care Team (Late st Contact Info) Description 06/05/2023 Refill [facility] MEDICINE [address] [place], [place] [phone] Kalpana Baptiste MD [address] [place], [place] [phone] Heartburn; Chronic tension-type headache, not intractable; Primary [...] Description 05/03/2025 1:00 PM EST Clinical Support [facility] MEDICINE [address] [place] [address] Amanda Waldrop RN 06/22/2025 1:00 PM EST Office Visit [facility] ADULT DENTAL [address] [place] [address] LeoraPierreGloria [address] [place] [address] documented as of this encounter Visit Diagnoses Diagnosis Heartburn Chronic tension-type headache, not intractable Chronic tension type headache Primary osteoarthritis of both knees documented in this encounter Additional Health Concerns Assessment Noted Time PHQ-9 Depression Total Score: 0 08/22/19 23 10:06 AM EDT documented as of this encounter Care Teams Zipper Joiner Relationship Specialty Start Date End Date Kalpana Baptiste MD [address] [place] [address] PCP - General Family Medicine 06/14/20 Betsy Wray, NEGAR [address] [place] [address] Registered Nurse Family Medicine 09/28/24 12/30/24 Erika Saldivar 09/28/24 01/10/25 documented as of this encounter
--- OUTSIDE RECORDS SUMMARY | 2025-01-28 13:48 | XMS_ITS | Encounter Summary ---
Author Organization [employer] Address 75 [facility] 7t [place] [address] Care Team Providers Care University Controller Name Role Phone Kalpana Baptiste MD Primary Care Provide r Betsy Wray RN Unavailable [phone] Erika Saldivar Unavailable Reason for Visit * Reason Comments Med Refill Encounter Details Date Type Department Care Team (Late st Contact Info) Description 07/25/2023 Refill [facility] MEDICINE [address] [place], [place] [phone] Caryl Biggs MD [address] [place], [place] [phone] Chronic tension-type headache, not intractable Social History [...] Description 05/03/2025 1:00 PM EST Clinical Support [facility] MEDICINE [address] [place] [address] Amanda Waldrop RN 06/22/2025 1:00 PM EST Office Visit [facility] ADULT DENTAL [address] [place] [address] Leora, Gloria [address] [place] [address] documented as of this encounter Visit Diagnoses Diagnosis Chronic tension-type headache, not intractable Chronic tension type headache documented in this encounter Additional Health Concerns Assessment Noted Time PHQ-9 Depression Total Score: 0 08/22/19 23 10:06 AM EDT documented as of this encounter Care Teams University Controller Relationship Specialty Start Date End Date Kalpana Baptiste MD [address] [place] [address] PCP - General Family Medicine 06/14/20 Betsy Wray RN [address] [place] [address] Registered Nurse Family Medicine 09/28/24 12/30/24 Erika Saldivar 09/28/24 01/10/25 documented as of this encounter
--- OUTSIDE RECORDS SUMMARY | 2025-01-28 13:48 | XMS_ITS | Encounter Summary ---
Author Organization [employer] Address 75 [facility] 7t [place] [address] Care Team Providers Care Block Breaker Operator Name Role Phone Kalpana Baptiste MD Primary Care Provide r Betsy Wray RN Unavailable [phone] Erika Saldivar Unavailable Reason for Visit * Reason Onset Date Comments Med Refill 10/13/2023 Encounter Details Date Type Department Care Team ([facility] st Contact Info) Description 10/13/2023 Telephone [facility] MEDICINE [address] [place], [place] [phone] Kalpana Baptiste MD [address] [place], [place] [phone] Med Refill Social History Tobacco Use Types [...] enough money to get more: Never True 10/ Transportation Answer Date Recorded In the past [...] encounter Miscellaneous Notes * Telephone Encounter - eNida Bower LPN - 10/13/2023 2:55 PM EDT Medication pended to PCP. * Telephone Encounter - Aicha Saldivar - 10/13/2023 2:48 PM EDT TC from pt requesting medication refill. Medications needing refill : sucralfate (Carafate) 1 g tablet To be sent to: [facility] - [address] documented in this encounter Plan of Treatment Upcoming Encounters Date Type Department Care Team (Late st Contact Info) Description 05/03/2025 1:00 PM EST Clinical Support [facility] MEDICINE [address] [place], [place] [phone] Amanda Waldrop RN 06/22/2025 1:00 PM EST Office Visit [facility] ADULT DENTAL [address] [place], [place] [phone] Gloria Corey [address] [place] [address] documented as of this encounter Visit Diagnoses Not on filedocumented in this encounter Additional Health Concerns Assessment Noted Time PHQ-9 Depression Total Score: 0 04/19/20 23 10:06 AM EDT documented as of this encounter Care Teams Block Breaker Operator Relationship Specialty Start Date End Date Kalpana Baptiste MD 230 [place] [address] PCP - General Family Medicine 06/14/20 Betsy Wray RN [address] [place] [address] Registered Nurse Family Medicine 09/28/24 12/30/24 Erika Saldivar 09/28/24 01/10/25 documented as of this encounter
--- OUTSIDE RECORDS SUMMARY | 2025-01-28 13:48 | XMS_ITS | Encounter Summary ---
Author Organization [employer] Address 75 [facility] 7t [place] [address] Care Team Providers Care Christian Counselor Name Role Phone Kalpana Baptiste MD Primary Care Provide r Betsy Wray RN Unavailable [phone] Erika Saldivar Unavailable Reason for Visit * Reason Comments Med Refill Encounter Details Date Type Department Care Team (Late st Contact Info) Description 09/11/2023 Refill [facility] MEDICINE [address] [place], [place] [phone] Kalpana Baptiste MD [address] [place], [place] [phone] Acute otitis media, unspecified otitis media type [...] 1:00 PM EST Clinical Support [facility] MEDICINE [address] [place] [address] Amanda Waldrop RN 06/22/2025 1:00 PM EST Office Visit [facility] ADULT DENTAL [address] [place] [address] Leora, Gloria [address] [place] [address] documented as of this encounter Visit Diagnoses Diagnosis Acute otitis media, unspecified otitis media type documented in this encounter Additional Health Concerns Assessment Noted Time PHQ-9 Depression Total Score: 0 08/22/19 23 10:06 AM EDT documented as of this encounter Care Teams Christian Counselor Relationship Specialty Start Date End Date Kalpana Baptiste MD [address] [place] [address] PCP - General Family Medicine 06/14/20 Betsy Wray RN [address] [place] [address] Registered Nurse Family Medicine 09/28/24 12/30/24 Erika Saldivar 09/28/24 01/10/25 documented as of this encounter
--- OUTSIDE RECORDS SUMMARY | 2025-01-28 13:48 | XMS_ITS | Encounter Summary ---
Author Organization [employer] Address 75 [facility] 7t [place] [address] Care Team Providers Care Biomedical Equipment Support Specialist Name Role Phone Kalpana Baptiste MD Primary Care Provide r Betsy Wray RN Unavailable [phone] Erika Saldivar Unavailable Reason for Visit * Reason Comments Med Refill Encounter Details Date Type Department Care Team (Late st Contact Info) Description 08/11/2023 Refill [facility] MEDICINE [address] [place], [place] [phone] Kalpana Baptiste MD [address] [place], [place] [phone] Chronic gout of multiple sites, unspecified cause; [...] Description 05/03/2025 1:00 PM EST Clinical Support [facility] MEDICINE [address] [place] [address] Amanda Waldrop RN 06/22/2025 1:00 PM EST Office Visit [facility] ADULT DENTAL [address] [place] [address] Leora Gloria [address] [place] [address] documented as of this encounter Visit Diagnoses Diagnosis Chronic gout of multiple sites, unspecified cause Primary osteoarthritis of both knees Moderate persistent asthma without complication documented in this encounter Additional Health Concerns Assessment Noted Time PHQ-9 Depression Total Score: 0 08/22/19 23 10:06 AM EDT documented as of this encounter Care Teams Biomedical Equipment Support Specialist Relationship Specialty Start Date End Date Kalpana Baptiste MD [address] [place] [address] PCP - General Family Medicine 06/14/20 Betsy Wray, NEGAR [address] [place] [address] Registered Nurse Family Medicine 09/28/24 12/30/24 Erika Saldivar 09/28/24 01/10/25 documented as of this encounter
--- OUTSIDE RECORDS SUMMARY | 2025-01-28 13:48 | XMS_ITS | Encounter Summary ---
Author Organization [employer] Address 75 [facility] 7t [place] [address] Care Team Providers Care Tobacco Sizer Name Role Phone Kalpana Baptiste MD Primary Care Provide r Betsy Wray RN Unavailable [phone] Erika Saldivar Unavailable Reason for Visit * Reason Comments Med Refill Encounter Details Date Type Department Care Team (Late st Contact Info) Description 06/09/2023 Refill [facility] MEDICINE [address] [place], [place] [phone] Kalpana Baptiste MD [address] [place], [place] [phone] Chronic tension-type headache, not intractable; Primary osteoarthritis [...] 1:00 PM EST Clinical Support [facility] MEDICINE [address] [place] [address] Amanda Waldrop RN 06/22/2025 1:00 PM EST Office Visit [facility] ADULT DENTAL [address] [place] [address] LeoraPierreGloria [address] [place] [address] documented as of this encounter Visit Diagnoses Diagnosis Chronic tension-type headache, not intractable Chronic tension type headache Primary osteoarthritis of both knees Heartburn documented in this encounter Additional Health Concerns Assessment Noted Time PHQ-9 Depression Total Score: 0 08/22/19 23 10:06 AM EDT documented as of this encounter Care Teams Tobacco Sizer Relationship Specialty Start Date End Date Kalpana Baptiste MD [address] [place] [address] PCP - General Family Medicine 06/14/20 Betsy Wray, NEGAR [address] [place] [address] Registered Nurse Family Medicine 09/28/24 12/30/24 Erika Saldivar 09/28/24 01/10/25 documented as of this encounter
--- OUTSIDE RECORDS SUMMARY | 2025-01-28 13:48 | XMS_ITS | Encounter Summary ---
Author Organization [employer] Address 75 [facility] 7t [place] [address] Care Team Providers Care Unit Aid Name Role Phone Kalpana Baptiste MD Primary Care Provide r Betsy Wray RN Unavailable [phone] Erika Saldivar Unavailable Reason for Visit * Reason Comments Med Refill Encounter Details Date Type Department Care Team (Late st Contact Info) Description 06/30/2023 Refill [facility] MEDICINE [address] [place], [place] [phone] Kalpana Baptiste MD [address] [place], [place] [phone] Heartburn Social History Tobacco Use Types Packs/Day [...] Clinical Support [facility] MEDICINE [address] [place] [address] Amanda Waldrop RN 06/22/2025 1:00 PM EST Office Visit [facility] ADULT DENTAL [address] [place] [address] Gloria Corey [address] [place] [address] documented as of this encounter Visit Diagnoses Diagnosis Heartburn documented in this encounter Additional Health Concerns Assessment Noted Time PHQ-9 Depression Total Score: 0 08/22/19 23 10:06 AM EDT documented as of this encounter Care Teams Unit Aid Relationship Specialty Start Date End Date Kalpana Baptiste MD [address] [place] [address] PCP - General Family Medicine 06/14/20 Betsy Wray RN [address] [place] [address] Registered Nurse Family Medicine 09/28/24 12/30/24 Erika Saldivar 09/28/24 01/10/25 documented as of this encounter
--- OUTSIDE RECORDS SUMMARY | 2025-01-28 13:48 | XMS_ITS | Encounter Summary ---
Author Organization [employer] Address 75 [facility] 7t [place] [address] Care Team Providers Care Overnight Stocker Name Role Phone Kalpana Baptiste MD Primary Care Provide r Betsy Wray RN Unavailable [phone] Erika Saldivar Unavailable Reason for Visit * Reason Comments Med Refill Encounter Details Date Type Department Care Team (Late st Contact Info) Description 06/27/2023 Refill [facility] MEDICINE 230 [place], [place] [phone] Kalpana Baptiste MD [address] [place], [place] [phone] Heartburn Social History Tobacco Use Types Packs/Day [...] 05/03/2025 1:00 PM EST Clinical Support [facility] MEDICINE [address] [place] [address] Amanda Waldrop RN 06/22/2025 1:00 PM EST Office Visit [facility] ADULT DENTAL [address] [place] [address] Gloria Corey [address] [place] [address] documented as of this encounter Visit Diagnoses Diagnosis Heartburn documented in this encounter Additional Health Concerns Assessment Noted Time PHQ-9 Depression Total Score: 0 08/22/19 23 10:06 AM EDT documented as of this encounter Care Teams Overnight Stocker Relationship Specialty Start Date End Date Kalpana Baptiste MD [address] [place] [address] PCP - General Family Medicine 06/14/20 Betsy Wray RN [address] [place] [address] Registered Nurse Family Medicine 09/28/24 12/30/24 Erika Salidvar 09/28/24 01/10/25 documented as of this encounter
--- OUTSIDE RECORDS SUMMARY | 2025-01-28 13:48 | XMS_ITS | Encounter Summary ---
Author Organization [employer] Address 75 [facility] 7t [place] [address] Care Team Providers Care Plow Mechanic Name Role Phone Kalpana Baptiste MD Primary Care Provide r Betsy Wray RN Unavailable [phone] Erika Saldivar Unavailable Reason for Visit * Reason Comments Med Refill Encounter Details Date Type Department Care Team (Late st Contact Info) Description 09/03/2022 Refill [facility] [address] [place], [place] [phone] Kalpana Baptiste MD [address] [place], [place] [phone] Primary osteoarthritis of both knees Social History [...] 1:00 PM EST Clinical Support [facility] [address] [place], [place] [phone] Amanda Waldrop RN 06/22/2025 1:00 PM EST Office Visit [facility] ADULT DENTAL [address] [place], [place] [phone] Leora, Gloria [address] [place] [address] documented as of this encounter Visit Diagnoses Diagnosis Primary osteoarthritis of both knees documented in this encounter Additional Health Concerns Assessment Noted Time PHQ-9 Depression Total Score: 0 08/22/19 23 10:06 AM EDT documented as of this encounter Care Teams Plow Mechanic Relationship Specialty Start Date End Date Kalpana Baptiste MD [address] [place] [address] PCP - General Family Medicine 06/14/20 Betsy Wray RN 505 [place] [address] Registered Nurse Family Medicine 09/28/24 12/30/24 Erika Saldivar 09/28/24 01/10/25 documented as of this encounter
--- OUTSIDE RECORDS SUMMARY | 2025-01-28 13:48 | XMS_ITS | Encounter Summary ---
Author Organization [employer] [facility] Address 75 [facility] 7t [place] [address] Care Team Providers Care C2 Tactical Analysis Technician Name Role Phone Kalpana Baptiste MD Primary Care Provide r Betsy Wray RN Unavailable [phone] Erika Saldivar Unavailable Reason for Visit * Reason Comments Med Refill Encounter Details Date Type Department Care Team (Late Contact Info) Description 12/19/2022 Refill [facility] MED[facility]INE [address] [place] [address] [phone] Kalpana Baptiste MD [address] [place] [address] [phone] Primary osteoarthritis of both knees Social History [...] Description 05/03/2025 1:00 PM EST Clinical Support [facility] [address] [place] [address] [phone] Amanda Waldrop RN 06/22/2025 1:00 PM EST Office Visit [facility] ADULT DENTAL 230 [place], [place] [phone] Glorai Corey 230 [place], [place] [phone] documented as of this encounter Visit Diagnoses Diagnosis Primary osteoarthritis of both knees documented in this encounter Additional Health Concerns Assessment Noted Time PHQ-9 Depression Total Score: 0 08/22/19 23 10:06 AM EDT documented as of this encounter Care Teams C2 Tactical Analysis Technician Relationship Specialty Start Date End Date Kalpana Baptiste MD 230 [place], [place] [phone] PCP - General Family Medicine 06/14/20 Betsy Wray RN 505 [place] [address] Registered Nurse Family Medicine 09/28/24 12/30/24 Erika Saldivar 09/28/24 01/10/25 documented as of this encounter
--- OUTSIDE RECORDS SUMMARY | 2025-01-28 13:48 | XMS_ITS | Encounter Summary ---
Author Organization [employer] Address 75 [facility] 7t [place] [address] Care Team Providers Care Management Professionals Name Role Phone Kalpana Baptiste MD Primary Care Provide r Betsy Wray RN Unavailable [phone] Erika Saldivar Unavailable Reason for Visit * Reason Comments Med Refill Encounter Details Date Type Department Care Team (Late st Contact Info) Description 07/28/2023 Refill [facility] 230 [place], [place] [phone] Kalpana Baptiste MD 230 [place], [place] [phone] Moderate persistent asthma without complication; Chronic gout [...] 1:00 PM EST Clinical Support [facility] [address] [place] [address] Amanda Waldrop RN 06/22/2025 1:00 PM EST Office Visit [facility]ULT [facility] [address] [place] [address] Leora Gloria [address] [place] [address] documented as of this encounter Visit Diagnoses Diagnosis Moderate persistent asthma without complication Chronic gout of multiple sites, unspecified cause Primary osteoarthritis of both knees documented in this encounter Additional Health Concerns Assessment Noted Time PHQ-9 Depression Total Score: 0 08/22/19 23 10:06 AM EDT documented as of this encounter Care Teams Management Professionals Relationship Specialty Start Date End Date Kalpana Baptiste MD 230 [place] [address] PCP - General Family Medicine 06/14/20 Betsy Wray, NEGAR 505 [place] [address] Registered Nurse Family Medicine 09/28/24 12/30/24 Erika Saldivar 09/28/24 01/10/25 documented as of this encounter
--- OUTSIDE RECORDS SUMMARY | 2025-01-28 13:48 | XMS_ITS | Encounter Summary ---
Author Organization [employer] Address 75 [facility] 7t [place] [address] Care Team Providers Care Sub Prior Name Role Phone Kalpana Baptiste MD Primary Care Provide r Betsy Wray RN Unavailable [phone] Erika Saldivar Unavailable Reason for Visit * Reason Comments Med Refill Encounter Details Date Type Department Care Team (Late st Contact Info) Description 12/29/2024 Refill [facility] 230 [place], [place] [phone] Kalpana Baptiste MD 230 [place], [place] [phone] Chronic bilateral low back pain, unspecified whether sciatica present Social History Tobacco Use Types Packs/Day Years [...] the past 12 months, has t he [employer], gas, oil or water [employer] threatened to shut off services in your [...] [facility] 230 [place] [address] Amanda Waldrop RN 06/22/2025 1:00 PM EST Office Visit [facility] ADULT DENTAL 230 [place] [address] Gloria Corey [address] [place] [address] documented as of this encounter Visit Diagnoses Diagnosis Chronic bilateral low back pain, unspecified whether sciatica present documented in this encounter Additional Health Concerns Assessment Noted Time PHQ-9 Depression Total Score: 0 10/16/19 25 3:24 PM EDT documented as of this encounter Care Teams Sub Prior Relationship Specialty Start Date End Date Kalpana Baptiste MD 230 [place] [address] PCP - General Family Medicine 06/14/20 Betsy Wray RN [address] [place] [address] Registered Nurse Family Medicine 09/28/24 12/30/24 Erika Saldivar 09/28/24 01/10/25 documented as of this encounter
--- OUTSIDE RECORDS SUMMARY | 2025-01-28 13:48 | XMS_ITS | Encounter Summary ---
Author Organization [employer] [facility] Address 75 [facility] 7t [place] [address] Care Team Providers Care Budget Examiner Name Role Phone Kalpana Baptiste MD Primary Care Provide r Betsy Wray RN Unavailable [phone] Erika Saldivar Unavailable Reason for Visit * Reason Comments Med Refill Encounter Details Date Type Department Care Team (Late Contact Info) Description 12/13/2022 Refill [facility] MEDICINE [address] [place] [address] [phone] Kalpana Baptiste MD [address] [place] [address] [phone] Primary osteoarthritis of both knees Social History [...] Description 05/03/2025 1:00 PM EST Clinical Support [facility] MED[facility]INE [address] [place] [address] [phone] Amanda Waldrop RN 06/22/2025 1:00 PM EST Office Visit [facility] ADULT DENTAL 230 [place], [place] [phone] Gloria Corey 230 [place], [place] [phone] documented as of this encounter Visit Diagnoses Diagnosis Primary osteoarthritis of both knees documented in this encounter Additional Health Concerns Assessment Noted Time PHQ-9 Depression Total Score: 0 08/22/19 23 10:06 AM EDT documented as of this encounter Care Teams Budget Examiner Relationship Specialty Start Date End Date Kalpana Baptiste MD 230 [place], [place] [phone] PCP - General Family Medicine 06/14/20 Betsy Wray RN 505 [place] [address] Registered Nurse Family Medicine 09/28/24 12/30/24 Erika Saldivar 09/28/24 01/10/25 documented as of this encounter
--- OUTSIDE RECORDS SUMMARY | 2025-01-28 13:48 | XMS_ITS | Encounter Summary ---
Author Organization [employer] Address [address] [facility] [address] 7t [place] [address] Care Team Providers Care Sexual Assault Nurse Name Role Phone Kalpana Baptiste MD Primary Care Provide r Betsy Wray RN Unavailable [phone] Erika Saldivar Unavailable Reason for Visit * Reason Comments Med Refill Encounter Details Date Type Department Care Team (Late st Contact Info) Description 07/05/2023 Refill [facility] MED[facility]INE 230 [place], [place] [phone] Caryl Biggs MD 230 [place], [place] [phone] Primary osteoarthritis of both knees Social History [...] Description 05/03/2025 1:00 PM EST Clinical Support [facility] MED[facility]INE 230 [place] [address] Amanda Waldrop RN 06/22/2025 1:00 PM EST Office Visit [facility] ADULT DENTAL 230 [place] [address] Leora, Gloria [address] [place] [address] documented as of this encounter Visit Diagnoses Diagnosis Primary osteoarthritis of both knees documented in this encounter Additional Health Concerns Assessment Noted Time PHQ-9 Depression Total Score: 0 08/22/19 23 10:06 AM EDT documented as of this encounter Care Teams Sexual Assault Nurse Relationship Specialty Start Date End Date Kalpana Baptiste MD 230 [place] [address] PCP - General Family Medicine 06/14/20 Betsy Wray RN 505 [place] [address] Registered Nurse Family Medicine 09/28/24 12/30/24 Erika Saldivar 09/28/24 01/10/25 documented as of this encounter
--- OUTSIDE RECORDS SUMMARY | 2025-01-28 13:48 | XMS_ITS | Encounter Summary ---
Author Organization [employer] Address 75 [facility] 7t [place] [address] Care Team Providers Care Mainspring Torque Tester Name Role Phone Kalpana Baptiste MD Primary Care Provide r Betsy Wray RN Unavailable [phone] Erika Saldivar Unavailable Reason for Visit * Reason Comments Med Refill Encounter Details Date Type Department Care Team ([facility] Contact Info) Description 08/15/2022 Refill [facility]INE 230 [place] [address] Marilyn Corral MD 230 [place] [address] Other hyperlipidemia; Allergic rhinitis, unspecified seasonality, unspecified [...] Description 05/03/2025 1:00 PM EST Clinical Support [facility]INE 230 [place], [place] [phone] Amanda Waldrop RN 06/22/2025 1:00 PM EST Office Visit [facility] ADULT DENTAL 230 [place], [place] [phone] Pierre Coreyaris 230 [place], [place] [phone] documented as of this encounter Visit Diagnoses Diagnosis Other hyperlipidemia Allergic rhinitis, unspecified seasonality, unspecified trigger Chronic tension-type headache, not intractable Chronic tension type headache Abdominal pain, epigastric documented in this encounter Care Teams Mainspring Torque Tester Relationship Specialty Start Date End Date Kalpana Baptiste MD 230 [place] [address] PCP - General Family Medicine 06/14/20 Betsy Wray RN [address] [place] [address] Registered Nurse Family Medicine 09/28/24 12/30/24 Erika Saldivar 09/28/24 01/10/25 documented as of this encounter
--- OUTSIDE RECORDS SUMMARY | 2025-01-28 13:48 | XMS_ITS | Encounter Summary ---
Author Organization [employer] Address 75 [facility] 7t [place] [address] Care Team Providers Care Harpooner Name Role Phone Kalpana Baptiste MD Primary Care Provide r Betsy Wray RN Unavailable [phone] Erika Saldivar Unavailable Reason for Visit * Reason Comments Med Refill Encounter Details Date Type Department Care Team (Late st Contact Info) Description 12/22/2024 Refill [facility] MEDICINE 230 [place], [place] [phone] Kalpana Baptiste MD 230 [place], [place] [phone] Chronic tension-type headache, not intractable Social History [...] the past 12 months, has t he [employer], gas, oil or water [employer] threatened to shut off services in your [...] Description 05/03/2025 1:00 PM EST Clinical Support [facility]INE [address] [place] [address] Amanda Waldrop RN 06/22/2025 1:00 PM EST Office Visit [facility] ADULT DENTAL 230 [place] [address] Gloria Corey 230 [place] [address] documented as of this encounter Visit Diagnoses Diagnosis Chronic tension-type headache, not intractable Chronic tension type headache documented in this encounter Additional Health Concerns Assessment Noted Time PHQ-9 Depression Total Score: 0 10/16/19 25 3:24 PM EDT documented as of this encounter Care Teams Harpooner Relationship Specialty Start Date End Date Kalpana Baptiste MD 230 [place] [address] PCP - General Family Medicine 06/14/20 Betsy Wray RN 505 [place] [address] Registered Nurse Family Medicine 09/28/24 12/30/24 Erika Saldivar 09/28/24 01/10/25 documented as of this encounter
--- OUTSIDE RECORDS SUMMARY | 2025-01-28 13:49 | XMS_ITS | Encounter Summary ---
Author Organization [employer] Address 75 [facility] 7t [place] [address] Care Team Providers Care Bad Work Gatherer Name Role Phone Kalpana Baptiste MD Primary Care Provide r Betsy Wray RN Unavailable [phone] Erika Saldivar Unavailable Reason for Visit * Reason Comments Med Refill Encounter Details Date Type Department Care Team ([facility] Contact Info) Description 10/04/2022 Refill [facility] MEDICINE [address] [place] [phone] Marilyn Corral MD [address] [place] [address] [phone] Moderate persistent asthma without complication Social History [...] Upcoming Encounters Date Type Department Care Team ([facility] Contact Info) Description 05/03/2025 1:00 PM EST Clinical Support [facility] MEDICINE [address] [place] [address] [phone] Amanda Waldrop RN 06/22/2025 1:00 PM EST Office Visit [facility] ADULT DENTAL 230 [place], [place] [phone] Gloria Corey 230 [place], [place] [phone] documented as of this encounter Visit Diagnoses Diagnosis Moderate persistent asthma without complication documented in this encounter Additional Health Concerns Assessment Noted Time PHQ-9 Depression Total Score: 0 08/22/19 23 10:06 AM EDT documented as of this encounter Care Teams Bad Work Gatherer Relationship Specialty Start Date End Date Kalpana Baptiste MD 230 [place], [place] [phone] PCP - General Family Medicine 06/14/20 Betsy Wray RN 505 [place] [address] Registered Nurse Family Medicine 09/28/24 12/30/24 Erika Saldivar 09/28/24 01/10/25 documented as of this encounter
--- OUTSIDE RECORDS SUMMARY | 2025-01-28 13:49 | XMS_ITS | Encounter Summary ---
Author Organization [employer] Address 75 [facility] 7t [place] [address] Care Team Providers Care Linter Drier Operator Name Role Phone Kalpana Baptiste MD Primary Care Provide r Betsy Wray RN Unavailable [phone] Erika Saldivar Unavailable Reason for Visit * Reason Comments Med Refill Encounter Details Date Type Department Care Team ([facility] st Contact Info) Description 02/18/2023 Refill [facility] MEDICINE 230 [place], [place] [phone] Kalpana Baptiste MD 230 [place], [place] [phone] Primary osteoarthritis of both knees Social History [...] 1:00 PM EST Clinical Support [facility] MED[facility]INE 230 [place] [address] Amanda Waldrop RN 06/22/2025 1:00 PM EST Office Visit [facility] ADULT DENTAL 230 [place] [address] Leora, Gloria 230 [place] [address] documented as of this encounter Visit Diagnoses Diagnosis Primary osteoarthritis of both knees documented in this encounter Additional Health Concerns Assessment Noted Time PHQ-9 Depression Total Score: 0 08/22/19 23 10:06 AM EDT documented as of this encounter Care Teams Linter Drier Operator Relationship Specialty Start Date End Date Kalpana Baptiste MD 230 [place] [address] PCP - General Family Medicine 06/14/20 Betsy Wray RN 505 [place] [address] Registered Nurse Family Medicine 09/28/24 12/30/24 Erika Saldivar 09/28/24 01/10/25 documented as of this encounter
--- OUTSIDE RECORDS SUMMARY | 2025-01-28 13:49 | XMS_ITS | Encounter Summary ---
Author Organization [employer] Address 75 [facility] 7t [place] [address] Care Team Providers Care Recovery Advocate Name Role Phone Kalpana Baptiste MD Primary Care Provide r Encounter Details Date Type Department Care Team (Latest Contact Info) Description 01/26/2025 Travel Social History Tobacco Use Types Packs/Day [...] the past 12 months, has t he [employer], gas, oil or water [employer] threatened to shut off services in your [...] Description 05/03/2025 1:00 PM EST Clinical Support [facility] MEDICINE 230 [place] [address] Amanda Waldrop RN 06/22/2025 1:00 PM EST Office Visit [facility] ADULT DENTAL 230 [place] [address] Gloria Corey 230 [place] [address] documented as of this encounter Visit Diagnoses Not on filedocumented in this encounter Additional Health Concerns Assessment Noted Time PHQ-9 Depression Total Score: 0 10/16/19 25 3:24 PM EDT documented as of this encounter Care Teams Recovery Advocate Relationship Specialty Start Date End Date Kalpana Baptiste MD 230 [place] [address] PCP - General Family Medicine 06/14/20 documented as of this encounter
--- OUTSIDE RECORDS SUMMARY | 2025-01-28 13:49 | XMS_ITS | Encounter Summary ---
Author Organization [employer] Address 75 [facility] 7t [place] [address] Care Team Providers Care Recyclable Products Sorter Name Role Phone Kalpana Baptiste MD Primary Care Provide r Betsy Wray RN Unavailable [phone] Erika Saldivar Unavailable Reason for Visit * Reason Comments Med Refill Encounter Details Date Type Department Care Team (Late st Contact Info) Description 11/10/2023 Refill [facility] MEDICINE 230 [place], [place] [phone] Kalpana Baptiste MD 230 [place], [place] [phone] Social History Tobacco Use Types Packs/Day Years [...] EST Clinical Support [facility] MEDICINE 230 [place] [address] Amanda Waldrop RN 06/22/2025 1:00 PM EST Office Visit [facility] ADULT DENTAL 230 [place] [address] Leora, Gloria [address] [place] [address] documented as of this encounter Visit Diagnoses Not on filedocumented in this encounter Additional Health Concerns Assessment Noted Time PHQ-9 Depression Total Score: 0 08/22/19 23 10:06 AM EDT documented as of this encounter Care Teams Recyclable Products Sorter Relationship Specialty Start Date End Date Kalpana Baptiste MD 230 [place] [address] PCP - General Family Medicine 06/14/20 Betsy Wray RN 505 [place] [address] Registered Nurse Family Medicine 09/28/24 12/30/24 Erika Saldivar 09/28/24 01/10/25 documented as of this encounter
--- OUTSIDE RECORDS SUMMARY | 2025-01-28 13:49 | XMS_ITS | Encounter Summary ---
Author Organization [employer] Address 75 [facility] 7t [place] [address] Care Team Providers Care Director Fraud Name Role Phone Kalpana Baptiste MD Primary Care Provide r Betsy Wray RN Unavailable [phone] Erika Saldivar Unavailable Encounter Details Date Type Department Care Team ([facility] st Contact Info) Description 12/02/2024 Patient Outreach [facility] MEDICINE 230 [place], [place] [phone] Kalpana Baptiste MD 230 [place] [address] Social History Tobacco Use Types Packs/Day Years [...] the past 12 months, has t he [employer], gas, oil or water company threatened to [...] Description 05/03/2025 1:00 PM EST Clinical Support [facility] [address] [place] [address] Amanda Waldrop RN 06/22/2025 1:00 PM EST Office Visit [facility] ADULT DENTAL [address] [place] [address] Gloria Corey [address] [place] [address] documented as of this encounter Visit Diagnoses Diagnosis Chronic bilateral low back pain, unspecified whether sciatica present documented in this encounter Additional Health Concerns Assessment Noted Time PHQ-9 Depression Total Score: 0 10/16/19 25 3:24 PM EDT documented as of this encounter Care Teams Director Fraud Relationship Specialty Start Date End Date Kalpana Baptiste MD 230 [place] [address] PCP - General Family Medicine 06/14/20 Betsy Wray RN [address] [place] [address] Registered Nurse Family Medicine 09/28/24 12/30/24 Erika Saldivar 09/28/24 01/10/25 documented as of this encounter
--- OUTSIDE RECORDS SUMMARY | 2025-01-28 13:49 | XMS_ITS | Encounter Summary ---
Author Organization [employer] Address [address] [facility] [address] 7t [place] [address] Care Team Providers Care Photovoltaic Installation Technician Name Role Phone Kalpana Baptiste MD Primary Care Provide r Betsy Wray RN Unavailable [phone] Erika Saldivar Unavailable Encounter Details Date Type Department Care Team (Late st Contact Info) Description 02/12/2023 Abstract [facility] MEDICINE 230 [place] [address] Therese Brown Social History Tobacco Use Types [...] 1:00 PM EST Clinical Support [facility] MEDICINE 230 [place], [place] [phone] Amanda Waldrop RN 06/22/2025 1:00 PM EST Office Visit [facility] ADULT DENTAL [address] [place] [address] Gloria Corey [address] [place] [address] documented as of this encounter Procedures Procedure [...] documented as of this encounter Care Teams Photovoltaic Installation Technician Relationship Specialty Start Date End Date Kalpana Baptiste MD 230 [place] [address] PCP - General Family Medicine 06/14/20 Betsy Wray RN 505 [place] [address] Registered Nurse Family Medicine 09/28/24 12/30/24 Erika Saldivar 09/28/24 01/10/25 documented as of this encounter
--- OUTSIDE RECORDS SUMMARY | 2025-01-28 13:49 | XMS_ITS | Encounter Summary ---
Author Organization [employer] [facility] Address 75 [facility] 7t [place] [address] Care Team Providers Care Ur Coordinator Name Role Phone Kalpana Baptiste MD Primary Care Provide r Betsy Wray RN Unavailable [phone] Erika Saldivar Unavailable Reason for Visit * Reason Comments Med Refill Encounter Details Date Type Department Care Team (Late Contact Info) Description 11/13/2022 Refill [facility] MEDICINE [address] [place] [address] [phone] Kalpana Baptiste MD [address] [place] [address] [phone] Primary osteoarthritis of both knees Social History [...] Description 05/03/2025 1:00 PM EST Clinical Support [facility] MEDICINE [address] [place] [address] [phone] Amanda Waldrop RN 06/22/2025 1:00 PM EST Office Visit [facility] ADULT DENTAL 230 [place], [place] [phone] Gloria Corey 230 [place], [place] [phone] documented as of this encounter Visit Diagnoses Diagnosis Primary osteoarthritis of both knees documented in this encounter Additional Health Concerns Assessment Noted Time PHQ-9 Depression Total Score: 0 08/22/19 23 10:06 AM EDT documented as of this encounter Care Teams Ur Coordinator Relationship Specialty Start Date End Date Kalpana Baptiste MD 230 [place], [place] [phone] PCP - General Family Medicine 06/14/20 Betsy Wray RN 505 [place] [address] Registered Nurse Family Medicine 09/28/24 12/30/24 Erika Saldivar 09/28/24 01/10/25 documented as of this encounter
--- OUTSIDE RECORDS SUMMARY | 2025-01-28 13:49 | XMS_ITS | Encounter Summary ---
Author Organization [facility] [address] [facility] Address [address] [facility] 7t [place] [address] Care Team Providers Care Postdoctoral Fellow Name Role Phone Kalpana Baptiste MD Primary Care Provide r Betsy Wray RN Unavailable [phone] Erika Saldivar Unavailable Reason for Visit * Reason Comments Med Refill Encounter Details Date Type Department Care Team (Late Contact Info) Description 01/24/2023 Refill [facility] [address] [place] [address] [phone] Kalpana Baptiste MD [address] [place] [address] [phone] Primary osteoarthritis of both knees Social History [...] Description 05/03/2025 1:00 PM EST Clinical Support [facility] [address] [place] [address] [phone] Amanda Waldrop RN 06/22/2025 1:00 PM EST Office Visit [facility] ADULT DENTAL [address] [place], [place] [phone] Gloria Corey [address] [place], [place] [phone] documented as of this encounter Visit Diagnoses Diagnosis Primary osteoarthritis of both knees documented in this encounter Additional Health Concerns Assessment Noted Time PHQ-9 Depression Total Score: 0 08/22/19 23 10:06 AM EDT documented as of this encounter Care Teams Postdoctoral Fellow Relationship Specialty Start Date End Date Kalpana Baptiste MD [address] [place], [place] [phone] PCP - General Family Medicine 06/14/20 Betsy Wray RN [address] [place] [address] Registered Nurse Family Medicine 09/28/24 12/30/24 Erika Saldivar 09/28/24 01/10/25 documented as of this encounter
--- OUTSIDE RECORDS SUMMARY | 2025-01-28 13:49 | XMS_ITS | Encounter Summary ---
Author Organization [employer] Address [address] [facility] 7t [place] [address] Care Team Providers Care Box Toe Maker Name Role Phone Kalpana Baptiste MD Primary Care Provide r Encounter Details Date Type Department Care Team ([facility] Contact Info) Description 01/28/2025 Orders Only GENERIC EXTERNAL DATA DEPARTMENT Provider, Generic External Data Social History Tobacco Use Types Packs/Day Years [...] the past 12 months, has t he [employer], gas, oil or water [employer] threatened to shut off services in your [...] 05/03/2025 1:00 PM EST Clinical Support [facility] MEDICINE [address] [place] [address] Amanda Waldrop RN 06/22/2025 1:00 PM EST Office Visit [facility] ADULT DENTAL [address] [place] [address] Gloria Corey [address] [place] [address] documented as of this encounter Procedures Procedure Name Priority Date/Time Associated Diagnosis Comments CBC WITH AUTO DIFFERENTIAL Routine 01/28/2025 12:11 PM EDT documented in this encounter Results * (ABNORMAL) CBC auto differential (01/28/2025 12:11 PM EDT) White Blood Count 4.6(L) 4.8 - 10.8 X10*3/uL [facility] Red Blood Count 3.30(L) 4.20 - 5.50 X10*6/uL [facility] Hemoglobin 10.0(L) 12.0 - 16.0 g/dl [facility] Hematocrit 30.2(L) 37.0 - 47.0 % [facility] Mean Corpuscular Volume 91.5 80.0 - 98.0 fL [facility] Mean Corpuscular Hemoglobin 30.3 27.0 - 33.0 pg [facility] Mean Corpuscular HGB Conc 33.1 31.0 - 35.0 g/dl [facility] Red Cell Distribution Width 13.5 11.0 - 16.0 % [facility] Platelet Count 229 160 - 400 X10*3/uL [facility] Mean Platelet Volume 9.7 9.4 - 12.3 fL [facility] Neutrophils Percent Auto 46.1 45 - 73 % [facility] Imm Gran Pct Auto 0.4 0.0 - 0.4 % [facility] Lymphocytes Percent Auto 42.2(H) 20 - 40 % [facility] Monocytes Percent Auto 9.6 2 - 11 % [facility] Eosinophils Percent Auto 1.5 0 - 4 % [facility] Basophils Percent Auto 0.2 0 - 2 % [facility] NRBC Pct Auto 0.0 0.0 - 0.2 /100WBC [facility] Neutrophils Absolute Auto 2.1 2.0 - 8.3 x10*3/uL [facility] Imm Gran Abs Auto 0.02 0.00 - 0.03 X10*3/uL [facility] Lymphocytes Absolute Auto 1.9 1.2 - 4.9 X10*3/uL [facility] Monocytes Absolute Auto 0.4 0.1 - 1.2 X10*3/uL [facility] Eosinophils Absolute Auto 0.1 0.0 - 0.4 X10*3/uL [facility] Basophils Absolute Auto 0.0 0.0 - 0.2 X10*3/uL [facility] NRBC Abs Auto 0.000 0.0 - 0.012 X10*3/uL [facility] 01/28/2025 12:1 1 PM EDT 01/28/2025 12:58 PM EDT us Generic External Data Provider LAB BLOOD ORDERAB LES Final Result Performing Organization Address City/State/[facility] Co de Phone Number [facility] [address] [place] [address] [phone] documented in this encounter Visit Diagnoses Not on filedocumented in this encounter Additional Health Concerns Assessment Noted Time PHQ-9 Depression Total Score: 0 10/16/19 25 3:24 PM EDT documented as of this encounter Care Teams Box Toe Maker Relationship Specialty Start Date End Date Kalpana Baptiste MD [address] [place] [phone] PCP - General Family Medicine 06/14/20 documented as of this encounter
--- OUTSIDE RECORDS SUMMARY | 2025-01-28 13:49 | XMS_ITS | Encounter Summary ---
Author Organization [employer] Address [address] 7t [place] [address] Care Team Providers Care Director Of Corporate Real Estate Name Role Phone Kalpana Baptiste MD Primary Care Provide r Reason for Visit * Reason Comments Med Refill Encounter Details Date Type Department Care Team ([facility] st Contact Info) Description 01/17/2025 Refill [facility] [address] [place], [place] [phone] Kalpana Baptiste MD [address] [place] [address] Primary osteoarthritis of both knees Social History [...] Description 05/03/2025 1:00 PM EST Clinical Support [facility] [address] [place] [address] Amanda Waldrop RN 06/22/2025 1:00 PM EST Office Visit [facility] ADULT DENTAL [address] [place] [address] Gloria Corey [address] [place] [address] documented as of this encounter Visit Diagnoses Diagnosis Primary osteoarthritis of both knees documented in this encounter Additional Health Concerns Assessment Noted Time PHQ-9 Depression Total Score: 0 10/16/19 25 3:24 PM EDT documented as of this encounter Care Teams Director Of Corporate Real Estate Relationship Specialty Start Date End Date Kalpana Baptiste MD [address] [place] [phone] PCP - General Family Medicine 06/14/20 documented as of this encounter
--- OUTSIDE RECORDS SUMMARY | 2025-01-28 13:49 | XMS_ITS | Encounter Summary ---
Author Organization [employer] Address [address] [facility] 7t [place] [address] Care Team Providers Care Tax Accounting Assistant Name Role Phone Kalpana Baptiste MD Primary Care Provide r Betsy Wray RN Unavailable [phone] Erika Saldivar Unavailable Reason for Visit * Reason Comments Med Refill Encounter Details Date Type Department Care Team (Late st Contact Info) Description 10/01/2024 Refill [facility] [address] [place], [place] [phone] Kalpana Baptiste MD [address] [place], [place] [phone] Primary osteoarthritis of both knees Social History [...] Description 05/03/2025 1:00 PM EST Clinical Support [facility] [address] [place] [address] Amanda Waldrop RN 06/22/2025 1:00 PM EST Office Visit [facility] ADULT DENTAL [address] [place] [address] Pierre Coreyaris [address] [place] [address] documented as of this encounter Visit Diagnoses Diagnosis Primary osteoarthritis of both knees documented in this encounter Additional Health Concerns Assessment Noted Time PHQ-9 Depression Total Score: 0 05/06/19 25 2:15 PM EST documented as of this encounter Care Teams Tax Accounting Assistant Relationship Specialty Start Date End Date Kalpana Baptiste MD [address] [place] [address] PCP - General Family Medicine 06/14/20 Betsy Wray RN [address] [place] [address] Registered Nurse Family Medicine 09/28/24 12/30/24 Erika Saldivar 09/28/24 01/10/25 documented as of this encounter
--- OUTSIDE RECORDS SUMMARY | 2025-01-28 13:49 | XMS_ITS | Encounter Summary ---
Author Organization [employer] Address [address] [facility] 7t [place] [address] Care Team Providers Care Parking Lot Spotter Name Role Phone Kalpana Baptiste MD Primary Care Provide r Betsy Wray RN Unavailable [phone] Erika Saldivar Unavailable Reason for Visit * Reason Comments Med Refill Encounter Details Date Type Department Care Team (Late st Contact Info) Description 02/04/2024 Refill [facility] MEDICINE [address] [place], [place] [phone] Caryl Biggs MD [address] [place], [place] [phone] Social History Tobacco Use Types Packs/Day Years [...] 05/03/2025 1:00 PM EST Clinical Support [facility] MEDICINE [address] [place] [address] Amanda Waldrop RN 06/22/2025 1:00 PM EST Office Visit [facility] ADULT DENTAL [address] [place] [address] Leora, Gloria [address] [place] [address] documented as of this encounter Visit Diagnoses Not on filedocumented in this encounter Additional Health Concerns Assessment Noted Time PHQ-9 Depression Total Score: 0 08/22/19 23 10:06 AM EDT documented as of this encounter Care Teams Parking Lot Spotter Relationship Specialty Start Date End Date Kalpana Baptiste MD [address] [place] [address] PCP - General Family Medicine 06/14/20 Betsy Wray RN [address] [place] [address] Registered Nurse Family Medicine 09/28/24 12/30/24 Erika Saldivar 09/28/24 01/10/25 documented as of this encounter
--- OUTSIDE RECORDS SUMMARY | 2025-01-28 13:49 | XMS_ITS | Clinical Summary ---
Author Organization [facility] Address [address] [place] [address] Care Team Providers Care Receptionist Scheduler Name Role Phone Kalpana Baptiste MD Primary [...] with or without food. 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 Type 2 diabetes mellitus 03/29/2015 Acute pharyngitis 12/29/2013 Cough 06/16/2013 Chronic pmfwz-yismpa-bunx disease 05/19/2013 Headache 03/24/2013 Dysuria 12/30/2012 Abdominal pain, epigastric 10/29/2012 Status post bone marrow transplant 08/27/2012 Anxiety disorder 06/24/2012 Depression 06/24/2012 Lower back pain 06/03/2012 Spleen enlargement 05/13/2012 Hypertension 03/06/2012 Asthma 03/06/2012 Hyperlipidemia 03/06/2012 Myelofibrosis 03/06/2012 Encounters Date Type Department Care Team Description 01/21/2025 Refill [facility] [address] [place] [address] Aylin Gunn PA 01/17/2025 [facility] Clinical Specialty Pharmacy [facility] [address] [place] [address] Ana Tom RPh from Last 3 Months Immunizations Immunization Administration [...] 67 08/17/2024 9:21 AM EDT Temperature 36.7 C (98 F) 08/17/2024 9:21 AM EDT Respiratory Rate 18 [...] Info) Description 02/16/2025 9:00 AM EDT Lab [facility] [address] [place] [address] 02/16/2025 10:00 AM EDT Follow-Up [facility] [address] [place] [address] Vickie Victor NP [address] [place] [address] Health Maintenance Due Date Last Done Comments [...] Screening 05/05/2024 Depression Screening and Follow-Up 05/05/2024 [facility] Cindy ual Screening 05/05/2024 Mammogram 08/21/2024 08/21/2022, 02/02, 02/11/2018 COVID-19 Vaccine (5 - Modern a risk season) 2025 02/25/2024, 05/08/2021, 07/05/2020, Additional history exists Influenza Vaccine (#1) 2025 , 02/12/2023, 02/20/2021, Additional history exists Hemoglobin A1C 02/04/2025 08/05/2024, 07/2 07/2023, 01/28/2023, Additional history exists Basic Metabolic Panel 02/16/2025 08/17/2024 , 05/20/2024, 05/19/2024, Additional history exists Urine Microalbumin 07/15/2025 07/15/2024, 01/24/2022 Hemoglobin 08/17/2025 08/17/2024, 10/0 06/2023, 08/06/2023, Additional history exists DTaP,Tdap,and Td Vaccines (6 - Td or Tdap) 01/18/2029 01/18/2019, 08/10/2014, 12/01/2013, Additional history exists CT Lung Cancer Screening (12 months, previous LungRADS 1 or 2) Discontinued 08/12/2012 HIV Screening Completed 08/09/2013 Hepatitis C Screening Completed 08/09/2013 Hepatitis B Vaccines Completed 11/15/2014, 08/10/2014, 12/01/2013, Additional history exists Zoster Vaccines Completed 08/21/2021, 08/03, 06/13/2021, Additional history exists Procedures * Due to [place] state law, this organization might not be sharing negative HIV tests. Procedure Name Priority Date/Time Associated Diagnosis Comments CBC AUTO DIFFERENTIAL STAT 08/17/2024 9:19 AM [...] - 10.8 10*3/uL 08/17/2024 9:55 AM EDT [employer] [facility] RBC 3.42(L) 3.80 - 5.10 10*6/uL 08/17/2024 9:55 AM EDT [employer] [facility] Hemoglobin 10.2(L) 11.7 - 15.5 g/dL 08/17/2024 9:55 AM EDT [employer] [facility] Hematocrit 31.0(L) 35.0 - 45.0 % 08/17/2024 9:55 AM EDT [employer] [facility] MCV 90.6 80.0 - 100.0 fL 08/17/2024 9:55 AM EDT [facility] [employer] [facility] MCH 29.8 27.0 - 33.0 pg 08/17/2024 9:55 AM EDT [employer] [facility] MCHC 32.9 32.0 - 36.0 g/dL 08/17/2024 9:55 AM EDT [employer] RDW 14.1 11.0 - 15.0 % 08/17/2024 9:55 AM EDT [employer] [facility] Platelets 268 140 - 400 10*3/uL 08/17/2024 9:55 AM EDT [employer] [facility] MPV 9.4 7.5 - 12.5 fL 08/17/2024 9:55 AM EDT [facility] [facility] Neutrophil % 48.2 % 08/17/2024 9:55 AM EDT [employer] [facility] Immature Grans % 1.1(H) 0.0 - 0.9 % 08/17/2024 9:55 AM EDT [facility] [employer] [facility] Lymphocyte % 40.1 % 08/17/2024 9:55 AM EDT [facility] [facility] Monocyte % 9.4 % 08/17/2024 9:55 AM EDT [employer] Eosinophil % 1.0 % 08/17/2024 9:55 AM EDT [facility] [facility] Basophil % 0.2 % 08/17/2024 9:55 AM EDT [employer] Neutrophil # 3.05 1.50 - 7.80 10*3/uL 08/17/2024 9:55 AM EDT [facility] [facility] Immature Grans # 0.07(H) <=0.03 10*3/uL 08/17/2024 9:55 AM EDT [employer] [facility] Lymphocyte # 2.50 0.85 - 3.90 10*3/uL 08/17/2024 9:55 AM EDT [employer] [facility] Monocyte # 0.60 0.20 - 0.95 10*3/uL 08/17/2024 9:55 AM EDT [facility] Eosinophil # 0.10 0.02 - 0.50 10*3/uL 08/17/2024 9:55 AM EDT [facility] Basophil # <0.03 0.00 - 0.20 10*3/uL 08/17/2024 9:55 AM EDT [employer] [facility] LAB[facility] nRBC % 0.0 /100 WBCs 08/17/2024 9:55 AM EDT [employer] [employer] [facility] nRBC # <0.01 <0.01 10*3/uL 08/17/2024 9:55 AM EDT [facility] Total Neutrophil #, Preliminary 3.05 1.50 - 7.80 10*3/uL 08/17/2024 9:55 AM EDT [employer] [facility] Blood Structure of peripheral vein / Unknown Venipuncture / Unknown 08/17/2024 9:19 AM EDT 08/17/2024 9:50 AM EDT us Aylin MORROW LAB BLOOD ORDERABLES Gabi l Result [facility] [employer] [facility] LAB[facility] [address] [place] [address], * (ABNORMAL) Comprehensive Metabolic Panel (08/17/2024 9:19 AM EDT) NA 139 135 - 145 mmol/L 08/17/2024 10:50 AM EDT [employer] [facility] K 4.2 3.5 - 5.3 mmol/L 08/17/2024 10:50 AM EDT [employer] [facility] Cl 108(H) 98 - 107 mmol/L 08/17/2024 10:50 AM EDT [employer] [facility] CO2 18(L) 22 - 32 mmol/L 08/17/2024 10:50 AM EDT [facility] Anion Gap 13 5 - 15 08/17/2024 10:50 AM EDT [facility] Glucose 113(H) 65 - 99 mg/dL 08/17/2024 10:50 AM EDT [facility] [facility] Creatinine 1.77(H) 0.50 - 1.20 mg/dL 08/17/2024 10:50 AM EDT [employer] [facility] Calcium 9.4 8.6 - 10.5 mg/dL 08/17/2024 10:50 AM [employer] [facility] Total Protein 7.4 6.0 - 8.0 g/dL 08/17/2024 10:50 AM [employer] [facility] Albumin 4.3 3.5 - 5.2 g/dL 08/17/2024 10:50 AM [employer] [facility] Bilirubin, Total 0.3 0.2 - 1.2 mg/dL 08/17/2024 10:50 AM [employer] [facility] Alkaline Phosphatase 70 35 - 129 U/L 08/17/2024 10:50 AM EDT [facility] [facility] AST 61(H) 10 - 40 U/L 08/17/2024 10:50 AM [employer] [facility] ALT 107(H) 10 - 40 U/L 08/17/2024 10:50 AM [employer] [facility] BUN 25(H) 7 - 23 mg/dL 08/17/2024 10:50 AM [employer] [facility] eGFR 32(L) >=60 mL/min/1 .73m2 08/17/2024 10:50 AM [employer] [facility] Comment:The estimated glomer ular [...] - 4.2 g/dL 08/17/2024 10:50 AM EDT [facility] A/G Ratio 1.4(L) 1.5 - 3.0 08/17/2024 10:50 AM EDT [facility] Blood Structure of peripheral vein / Unknown Venipuncture / Unknown 08/17/2024 9:19 AM EDT 08/17/2024 9:50 AM EDT Aylin MORROW LAB BLOOD ORDERABLES Gabi l Result [facility] [address] [place] [address], * (ABNORMAL) Vitamin D, 25-Hydroxy, Total, Immunoassay (08/11/2017 10:41 AM EDT) Calcidiol+ercalc idiol 24(L) 30 - 100 ng/mL 08/11/2017 7:50 PM EDT [employer] [facility] Comment: Vitamin D Status 25-OH Vitamin D: Deficiency: <20 ng/mL Insufficiency: 20 - 29 ng/mL Optimal: > or = 30 ng/mL For 25-OH Vitamin D testing on patients on D2-supplementation and patients for whom quantitation of D2 and D3 fractions is required, the QuestAssureD(TM) 25-OH VIT D, (D2,D3), LC/MS/MS is recommended: order code [id number] (patients >2yrs). For more information on this test, go to: http://education.vzaar/faq/GBY673 (This link is being provided for informational/educational purposes only.) Blood specimen (specimen) Structure of peripheral vein / Unknown Venipuncture / Unknown 08/11/2017 10:41 AM EDT 08/11/2017 10:57 AM EDT Mariajose NealyWear [facility] - 08/11/2017 7:50 PM EDT [facility] Received Date:[id number] us Aylin MORROW LAB BLOOD ORDERABLES Gabi l Result [facility] [address] [facility] 3rd Floor, [place] [address], [employer] [facility] [address] [facility] 3rd Floor, [place] [address], * (ABNORMAL) Hemoglobin A1c (08/11/2017 10:41 AM EDT) Hemoglobin A1C 5.8(H) <5.7 % of total Hgb 08/11/2017 7:12 PM EDT [facility] Comment: For someone without known diabetes, a [...] (MG/DL) 120 (calc) 08/11/2017 7:12 PM EDT [facility] eAG (MMOL/L) 6.6 (calc) 08/11/2017 7:12 PM EDT [facility] Blood specimen (specimen) Structure of peripheral vein / Unknown Venipuncture / Unknown 08/11/2017 10:41 AM EDT 08/11/2017 10:57 AM EDT Mariajose NealyWear NANCY - 08/11/2017 7:12 PM EDT [facility] Received Date:[id number] us Aylin MORROW LAB BLOOD ORDERABLES Gabi l Result [facility] [address], [place] [address], [place] [phone] [employer] [address], [place] [address], [place] [phone] * HEPATITIS C ANTIBODY, CONVERSION (08/09/2013 3:20 PM EDT) Pathologist [facility] Hepatitis C Antibody 0.06 <1.00 [facility] HCV Interpretation Negative [facility] Comment: Not infected with HCV, unless recent infection is suspected or other evidence exists to indicate HCV infection. 08/09/2013 3:20 PM EDT 08/09/2013 4:45 PM EDT Vivek Bernal MD PhD LAB HISTORICAL RESULTS Final Re sult Performing Organization Address City/[facility]/ZIP Co de Phone Number [facility] [address] [place] [address], [place] * HIV-1/2 Antigen/Antibodies 4th Generation w/Reflex (08/09/2013 3:20 PM EDT) Pathologist [facility] HIV 1,2 Ab/Ag Stat NEGATIVE NEGATIVE [facility] 08/09/2013 3:20 PM EDT 08/09/2013 4:45 PM EDT Vivek Bernal MD PhD LAB BLOOD ORDERABLES Final Resu lt Performing Organization Address City/[facility]/ZIP Co de Phone Number [facility] [address] [place] [address], [place] * Phosphorus (10/08/2012 3:00 AM EDT) Pathologist [facility] Phosphorus Blood 3.6 2.5 - 4.5 mg/dL [facility] 10/08/2012 3:00 AM EDT 10/08/2012 4:14 AM EDT us Neida Sotelo LAB BLOOD ORDERABLES Final Re sult [facility] [address] [place] [address], [place] * CT Chest W Contrast (08/12/2012 [...] INJ Narrative 08/13/2012 9:51 AM EDT EXAMINATION: Helical CT of the Chest INDICATION: [...] Most Recently Relevant to Health Maintenance Insurance [facility] Advance Directives Documents on File Type Date Recorded Patient Adoption Social Worker Expl anation Advance Directive 08/27/2012 12:00 AM Adva nce Care Directives Advance Directive 08/27/2012 12:00 AM Adva nce Care Directives Advance Directive 07/22/2012 12:00 AM emre Silva edical Dec Making (Adv.Dir) Care Teams Receptionist Scheduler Relationship Specialty Start Date End Date Kalpana Baptiste MD [address] [place] [id number] PCP - General 11/22/20
--- OUTSIDE RECORDS SUMMARY | 2025-01-28 13:49 | XMS_ITS | Encounter Summary ---
Author Organization [employer] Address [address] [facility] 7t [place] [address] Care Team Providers Care Medical Receptionist Biller Name Role Phone Kalpana Baptiste MD Primary Care Provide r Betsy Wray RN Unavailable [phone] Erika Saldivar Unavailable Reason for Visit * Reason Comments Med Refill Encounter Details Date Type Department Care Team (Late st Contact Info) Description 11/24/2024 Refill [facility] 230 [place], [place] [phone] Kalpana Baptiste MD 230 [place], [place] [phone] Abdominal pain, epigastric; Heartburn; Chronic gout of multiple sites, unspecified cause; Primary osteoarthritis of both knees; Allergic rhinitis, unspecified seasonality, unspecified trigger; Moderate [...] Description 05/03/2025 1:00 PM EST Clinical Support [facility] 230 [place] [address] Amanda Waldrop RN 06/22/2025 1:00 PM EST Office Visit [facility]ULT [facility] 230 [place] [address] Gloria Corey 230 [place] [address] documented as of this encounter Visit Diagnoses Diagnosis Abdominal pain, epigastric Heartburn Chronic gout of multiple sites, unspecified cause Primary osteoarthritis of both knees Allergic rhinitis, unspecified seasonality, unspecified trigger Moderate persistent asthma without complication documented in this encounter Additional Health Concerns Assessment Noted Time PHQ-9 Depression Total Score: 0 10/16/19 25 3:24 PM EDT documented as of this encounter Care Teams Medical Receptionist Biller Relationship Specialty Start Date End Date Kalpana Baptiste MD 230 [place] [address] PCP - General Family Medicine 06/14/20 Betsy Wray RN 505 [place] [address] Registered Nurse Family Medicine 09/28/24 12/30/24 Erika Saldivar 09/28/24 01/10/25 documented as of this encounter
--- OUTSIDE RECORDS SUMMARY | 2025-01-28 13:49 | XMS_ITS ---
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
--- OUTSIDE RECORDS SUMMARY | 2025-01-28 13:49 | XMS_ITS | Encounter Summary ---
Author Organization [employer] Address [address] 7t [place] [address] Care Team Providers Care Television Schedule Coordinator Name Role Phone Kalpana Baptiste MD Primary Care Provide r Betsy Wray RN Unavailable [phone] Erika Saldivar Unavailable Reason for Visit * Reason Comments Med Refill Encounter Details Date Type Department Care Team (Late st Contact Info) Description 02/12/2024 Refill [facility] 230 [place], [place] [phone] Caryl Biggs MD 230 [place], [place] [phone] Primary osteoarthritis of both knees Social History [...] Description 05/03/2025 1:00 PM EST Clinical Support [facility] 230 [place] [address] Amanda Waldrop RN 06/22/2025 1:00 PM EST Office Visit [facility] ADULT DENTAL 230 [place] [address] Leora, Gloria 230 [place] [address] documented as of this encounter Visit Diagnoses Diagnosis Primary osteoarthritis of both knees documented in this encounter Additional Health Concerns Assessment Noted Time PHQ-9 Depression Total Score: 0 08/22/19 23 10:06 AM EDT documented as of this encounter Care Teams Television Schedule Coordinator Relationship Specialty Start Date End Date Kalpana Baptiste MD [address] [place] [address] PCP - General Family Medicine 06/14/20 Betsy Wray RN 505 [place] [address] Registered Nurse Family Medicine 09/28/24 12/30/24 Erika Saldivar 09/28/24 01/10/25 documented as of this encounter
--- OUTSIDE RECORDS SUMMARY | 2025-01-28 13:49 | XMS_ITS | Encounter Summary ---
Author Organization [employer] Address [address] [facility] [facility] [address] 7t [place] [address] Care Team Providers Care Statistical Programmer Analyst Name Role Phone Kalpana Baptiste MD Primary Care Provide r Betsy Wray RN Unavailable [phone] Erika Saldivar Unavailable Reason for Visit * Reason Comments Med Refill Encounter Details Date Type Department Care Team (Late st Contact Info) Description 02/02/2024 Refill [facility] 230 [place], [place] [phone] Caryl Biggs MD 230 [place], [place] [phone] Primary osteoarthritis of both knees Social History [...] Description 05/03/2025 1:00 PM EST Clinical Support [facility] [address] [place] [address] Amanda Wladrop RN 06/22/2025 1:00 PM EST Office Visit [facility] ADULT DENTAL 230 [place] [address] Leora, Gloria [address] [place] [address] documented as of this encounter Visit Diagnoses Diagnosis Primary osteoarthritis of both knees documented in this encounter Additional Health Concerns Assessment Noted Time PHQ-9 Depression Total Score: 0 08/22/19 23 10:06 AM EDT documented as of this encounter Care Teams Statistical Programmer Analyst Relationship Specialty Start Date End Date Kalpana Baptiste MD 230 [place] [address] PCP - General Family Medicine 06/14/20 Betsy Wray RN 505 [place] [address] Registered Nurse Family Medicine 09/28/24 12/30/24 Erika Saldivar 09/28/24 01/10/25 documented as of this encounter
--- OUTSIDE RECORDS SUMMARY | 2025-01-28 13:49 | XMS_ITS | Encounter Summary ---
Author Organization [employer] Address [address] 7t [place] [address] Care Team Providers Care Lead Bi Developer Name Role Phone Kalpana Baptiste MD Primary Care Provide r Betsy Wray RN Unavailable [phone] Erika Saldivar Unavailable Reason for Visit * Reason Comments Med Refill Encounter Details Date Type Department Care Team (Late st Contact Info) Description 02/11/2024 Refill [facility] 230 [place], [place] [phone] Caryl Biggs MD 230 [place], [place] [phone] Primary osteoarthritis of both knees Social History [...] 05/03/2025 1:00 PM EST Clinical Support [facility] MEDICINE 230 [place] [address] Amanda Waldrop RN 06/22/2025 1:00 PM EST Office Visit [facility] ADULT DENTAL [address] [place] [address] Leora, Gloria [address] [place] [address] documented as of this encounter Visit Diagnoses Diagnosis Primary osteoarthritis of both knees documented in this encounter Additional Health Concerns Assessment Noted Time PHQ-9 Depression Total Score: 0 08/22/19 23 10:06 AM EDT documented as of this encounter Care Teams Lead Bi Developer Relationship Specialty Start Date End Date Kalpana Baptiste MD 230 [place] [address] PCP - General Family Medicine 06/14/20 Betsy Wray RN 505 [place] [address] Registered Nurse Family Medicine 09/28/24 12/30/24 Erika Saldivar 09/28/24 01/10/25 documented as of this encounter
--- OUTSIDE RECORDS SUMMARY | 2025-01-28 13:49 | XMS_ITS | Encounter Summary ---
Author Organization [employer] Address [address] [facility] 7t [place] [address] Care Team Providers Care Brake Coupler Dinkey Name Role Phone Kalpana Baptiste MD Primary Care Provide r Betsy Wray RN Unavailable [phone] Erika Saldivar Unavailable Reason for Visit * Reason Comments Med Refill Encounter Details Date Type Department Care Team (Late st Contact Info) Description 10/27/[address] [facility] 230 [place], [place] [phone] Kalpana Baptiste MD 230 [place], [place] [phone] Indigestion; Primary osteoarthritis of both knees Social History [...] the past 12 months, has t he [employer], gas, oil or water [employer] threatened to shut off services in your [...] 05/03/2025 1:00 PM EST Clinical Support [facility] [address] [place] [address] Amanda Waldrop RN 06/22/2025 1:00 PM EST Office Visit [facility] ADULT DENTAL [address] [place] [address] Gloria Corey 230 [place] [address] documented as of this encounter Visit Diagnoses Diagnosis Indigestion Dyspepsia and other specified disorders of function of stomach Primary osteoarthritis of both knees documented in this encounter Additional Health Concerns Assessment Noted Time PHQ-9 Depression Total Score: 0 10/16/19 3:24 PM EDT documented as of this encounter Care Teams Brake Coupler Dinkey Relationship Specialty Start Date End Date Kalpana Baptiste MD 230 [place] [address] PCP - General Family Medicine 06/14/20 Betsy Wray RN 505 [place] [address] Registered Nurse Family Medicine 09/28/24 12/30/24 Erika Saldivar 09/28/24 01/10/25 documented as of this encounter
--- OUTSIDE RECORDS SUMMARY | 2025-01-28 13:49 | XMS_ITS | Encounter Summary ---
Author Organization [employer] Address [address] [facility] 7t [place] [address] Care Team Providers Care Perch Mender Name Role Phone Kalpana Baptiste MD Primary Care Provide r Betsy Wray RN Unavailable [phone] Erika Saldivar Unavailable Reason for Visit * Reason Comments Med Refill Encounter Details Date Type Department Care Team (Late st Contact Info) Description 09/21/2024 Refill [facility] 230 [place], [place] [phone] Kalpana Baptiste MD 230 [place], [place] [phone] Type 2 diabetes mellitus with other specified complication, unspecified whether custodial insulin use ([facility]) Social History Tobacco Use Types Packs/Day [...] Description 05/03/2025 1:00 PM EST Clinical Support [facility] [address] [place] [address] Amanda Waldrop RN 06/22/2025 1:00 PM EST Office Visit [facility] ADULT DENTAL 230 [place] [address] Gloria Corey [address] [place] [address] documented as of this encounter Visit Diagnoses Diagnosis Type 2 diabetes mellitus with other specified complication, unspecified whether buttermaker continuous churn insulin use ([facility]) documented in this encounter Additional Health Concerns Assessment Noted Time PHQ-9 Depression Total Score: 0 05/06/19 25 2:15 PM EST documented as of this encounter Care Teams Perch Mender Relationship Specialty Start Date End Date Kalpana Baptiste MD 230 [place] [address] PCP - General Family Medicine 06/14/20 Betsy Wray RN [address] [place] [address] [place] [address] Registered Nurse Family Medicine 09/28/24 12/30/24 Erika Saldivar 09/28/24 01/10/25 documented as of this encounter
--- OUTSIDE RECORDS SUMMARY | 2025-01-28 13:49 | XMS_ITS | Encounter Summary ---
Author Organization [employer] Address [address] [facility] 7[place] [address] Care Team Providers Care Weekend Anchor Name Role Phone Kalpana Baptiste MD Primary Care Provide r Betsy Wray RN Unavailable [phone] Erika Saldivar Unavailable Reason for Visit * Reason Comments Med Refill Encounter Details Date Type Department Care Team (Late Contact Info) Description 10/04/2022 Refill [facility] 505 [place] [address] Tootie Tineo, ANP 230 [place], [place] [phone] Social History Tobacco Use Types Packs/Day Years [...] Description 05/03/2025 1:00 PM EST Clinical Support [facility] 230 [place] [address] Amanda Waldrop, NEGAR 06/22/2025 1:00 PM EST Office Visit [facility] ADULT DENTAL 230 [place], [place] [phone] Pierre Coreyaris 230 [place], [place] [phone] documented as of this encounter Visit Diagnoses Not on filedocumented in this encounter Additional Health Concerns Assessment Noted Time PHQ-9 Depression Total Score: 0 08/22/19 23 10:06 AM EDT documented as of this encounter Care Teams Weekend Anchor Relationship Specialty Start Date End Date Kalpana Baptiste MD 230 [place], [place] [phone] PCP - General Family Medicine 06/14/20 Betsy Wray RN 505 [place] [address] Registered Nurse Family Medicine 09/28/24 12/30/24 Erika Saldivar 09/28/24 01/10/25 documented as of this encounter
--- OUTSIDE RECORDS SUMMARY | 2025-01-28 13:49 | XMS_ITS | Encounter Summary ---
Author Organization [employer] Address [address] [facility] 7t [place] [address] Care Team Providers Care Conservation Engineer Name Role Phone Kalpana Baptiste MD Primary Care Provide r Betsy Wray RN Unavailable [phone] Erika Saldivar Unavailable Reason for Visit * Reason Comments Med Refill Encounter Details Date Type Department Care Team (Late st Contact Info) Description 01/28/2024 Refill [facility] MED[facility]INE 230 [place], [place] [phone] Caryl Biggs MD 230 [place], [place] [phone] Primary osteoarthritis of both knees Social History [...] Description 05/03/2025 1:00 PM EST Clinical Support [facility] 230 [place] [address] Amanda Waldrop RN 06/22/2025 1:00 PM EST Office Visit [facility] ADULT DENTAL 230 [place] [address] Leora, Gloria 230 [place] [address] documented as of this encounter Visit Diagnoses Diagnosis Primary osteoarthritis of both knees documented in this encounter Additional Health Concerns Assessment Noted Time PHQ-9 Depression Total Score: 0 08/22/19 23 10:06 AM EDT documented as of this encounter Care Teams Conservation Engineer Relationship Specialty Start Date End Date Kalpana Baptiste MD [address] [place] [address] PCP - General Family Medicine 06/14/20 Betsy Wray RN 505 [place] [address] Registered Nurse Family Medicine 09/28/24 12/30/24 Erika Saldivar 09/28/24 01/10/25 documented as of this encounter
--- OUTSIDE RECORDS SUMMARY | 2025-01-28 13:49 | XMS_ITS | Encounter Summary ---
Author Organization [employer] Address [address] [facility] [address] [facility] [address] 7t [place] [address] Care Team Providers Care Fruit Loader Machine Operator Name Role Phone Kalpana Baptiste MD Primary Care Provide r Betsy Wray RN Unavailable [phone] Erika Saldivar Unavailable Reason for Visit * Reason Comments Med Refill Encounter Details Date Type Department Care Team (Late st Contact Info) Description 02/09/2024 Refill [facility] 230 [place], [place] [phone] Caryl Biggs MD 230 [place], [place] [phone] Primary osteoarthritis of both knees Social History [...] Description 05/03/2025 1:00 PM EST Clinical Support [facility] 230 [place] [address] Amanda Waldrop RN 06/22/2025 1:00 PM EST Office Visit [facility] ADULT DENTAL 230 [place] [address] Leora, Gloria 230 [place] [address] documented as of this encounter Visit Diagnoses Diagnosis Primary osteoarthritis of both knees documented in this encounter Additional Health Concerns Assessment Noted Time PHQ-9 Depression Total Score: 0 08/22/19 23 10:06 AM EDT documented as of this encounter Care Teams Fruit Loader Machine Operator Relationship Specialty Start Date End Date Kalpana Baptiste MD 230 [place] [address] PCP - General Family Medicine 06/14/20 Betsy Wray RN 505 [place] [address] Registered Nurse Family Medicine 09/28/24 12/30/24 Erika Saldivar 09/28/24 01/10/25 documented as of this encounter
--- OUTSIDE RECORDS SUMMARY | 2025-01-28 13:49 | XMS_ITS | Encounter Summary ---
Author Organization [employer] Address [address] [facility] 7t [place] [address] Care Team Providers Care Field Cane Scaler Name Role Phone Kalpana Baptiste MD Primary Care Provide r Betsy Wray RN Unavailable [phone] Erika Saldivar Unavailable Encounter Details Date Type Department Care Team ([facility] st Contact Info) Description 10/13/2024 Telephone [facility] MEDICINE 230 [place] [address] Marielle Gerard, PharmD 230 [place] [address] Social History Tobacco Use Types Packs/Day Years [...] the past 12 months, has t he [employer], gas, oil or water company threatened to [...] AM EDT documented as of this encounter Functional Status * Over the past 2 weeks, how often have you been bothered by any of the following problems? Question Answer Date of Assessment Author Patient Health Questionnaire -2 Score 0 10/15/2024 3:24 PM EDT Betsy Wray RN * Little interest or pleasure in doing things Answer Date of Assessment Author Not at all 10/15/2024 3:24 PM EDT Tootie Wray RN * Feeling down, depressed, or hopeless Answer Date of Assessment Author Not at all 10/15/2024 3:24 PM EDT Tootie Wray RN * Trouble falling or staying asleep, or sleeping too much Answer Date of Assessment Author Not at all 10/15/2024 3:24 PM Tootie García RN * Feeling tired or having little energy Answer Date of Assessment Author Not at all 10/15/2024 3:24 PM Tootie García RN * Poor appetite or overeating Answer Date of Assessment Author Not at all 10/15/2024 3:24 PM Tootie García RN * Feeling bad about yourself - or that you are a failure or have let yourself or your family down Answer Date of Assessment Author Not at all 10/15/2024 3:24 PM Tootie García RN * Trouble concentrating on things, such as reading the newspaper or watching television Answer Date of Assessment Author Not at all 10/15/2024 3:24 PM Tootie García RN * Moving or speaking so slowly that other people could have noticed? Or the opposite - being so fidgety or restless that you have been moving around a lot more than usual. Answer Date of Assessment Author Not at all 10/15/2024 3:24 PM Tootie García RN * Thoughts that you would be better off or hurting yourself in some way Answer Date of Assessment Author Not at all 10/15/2024 3:24 PM Tootie García RN * Patient Health Questionnaire-9 Score Answer Date of Assessment Author 0 10/15/2024 3:24 PM Tootie García RN * Over the last 2 weeks, how often have you been bothered by any of the following problems? Question Answer Date of Assessment Author Feeling nervous, anxious, or on edge 0 10/15/2024 3:25 PM Betsy García RN Not being able to stop or co ntrol worrying 0 10/15/2024 3:25 PM Betsy García RN Worrying too much about diff erent things 0 10/15/2024 3:25 PM Betsy García RN Trouble relaxing 0 10/15/2024 3:25 PM EDT Betsy Lau RN Being so restless that it is hard to sit still 0 10/15/2024 3:25 PM EDT Betsy Wray RN Becoming easily annoyed or irritable 0 10/15/2024 3:25 PM EDT Betsy Wray RN Feeling afraid as if somethi ng awful might happen 0 10/15/2024 3:25 PM EDT Betsy Wray RN HOLGER-7 Total Score 0 10/15/2024 3:25 PM EDT Betsy Wray RN documented as of this encounter Plan of Treatment Upcoming Encounters Date Type Department Care Team (Late st Contact Info) Description 05/03/2025 1:00 PM EST Clinical Support [facility] MEDICINE 230 [place] [address] Amanda Waldrop RN 06/22/2025 1:00 PM EST Office Visit [facility] ADULT DENTAL [address] [place] [address] Gloria Corey 230 [place] [address] documented as of this encounter Visit Diagnoses Not on filedocumented in this encounter Additional Health Concerns Assessment Noted Time PHQ-9 Depression Total Score: 0 05/06/19 25 2:15 PM EST documented as of this encounter Care Teams Field Cane Scaler Relationship Specialty Start Date End Date Kalpana Baptiste MD 230 [place] [address] PCP - General Family Medicine 06/14/20 Betsy Wray RN 505 [place] [address] Registered Nurse Family Medicine 09/28/24 12/30/24 Erika Saldivar 09/28/24 01/10/25 documented as of this encounter
--- OUTSIDE RECORDS SUMMARY | 2025-01-28 13:49 | XMS_ITS | Encounter Summary ---
Author Organization [employer] Address 75 [facility] 7t [place] [address] Care Team Providers Care Video Production Assistant Name Role Phone Kalpana Baptiste MD Primary Care Provide r Betsy Wray RN Unavailable [phone] Erika Saldivar Unavailable Reason for Visit * Reason Comments Med Refill Encounter Details Date Type Department Care Team (Late st Contact Info) Description 09/20/2024 Refill [facility] MEDICINE 230 [place], [place] [phone] Kalpana Baptiste MD 230 [place], [place] [phone] Type 2 diabetes mellitus with other specified complication, unspecified whether retirement insulin use ([facility]) Social History Tobacco Use Types [...] Description 05/03/2025 1:00 PM EST Clinical Support [facility]ICINE [address] [place] [address] Amanda Waldrop RN 06/22/2025 1:00 PM EST Office Visit [facility] ADULT DENTAL [address] [place] [address] Gloria Corey [address] [place] [address] documented as of this encounter Visit Diagnoses Diagnosis Type 2 diabetes mellitus with other specified complication, unspecified whether terminal operations manager insulin use ([facility]) documented in this encounter Additional Health Concerns Assessment Noted Time PHQ-9 Depression Total Score: 0 05/06/19 25 2:15 PM EST documented as of this encounter Care Teams Video Production Assistant Relationship Specialty Start Date End Date Kalpana Baptiste MD 230 [place] [address] PCP - General Family Medicine 06/14/20 Betsy Wray RN [address] [place] [address] [place] [address] Registered Nurse Family Medicine 09/28/24 12/30/24 Erika Saldivar 09/28/24 01/10/25 documented as of this encounter
--- OUTSIDE RECORDS SUMMARY | 2025-01-28 13:49 | XMS_ITS | Encounter Summary ---
Author Organization [employer] Address 75 [facility] 7t [place] [address] Care Team Providers Care Drill Doctor Name Role Phone Kalpana Baptiste MD Primary Care Provide r Betsy Wray RN Unavailable [phone] Erika Saldivar Unavailable Reason for Visit * Reason Comments Med Refill Encounter Details Date Type Department Care Team ([facility] Contact Info) Description 10/09/2022 Refill [facility] MEDICINE [address] [place] [phone] Marilyn Corral MD [address] [place] [id number] Moderate persistent asthma without complication Social History [...] Upcoming Encounters Date Type Department Care Team ([facility] Contact Info) Description 05/03/2025 1:00 PM EST Clinical Support [facility] [address] [place] [address] [phone] Amanda Waldrop RN 06/22/2025 1:00 PM EST Office Visit [facility] ADULT DENTAL 230 [place], [place] [phone] Gloria Corey 230 [place], [place] [phone] documented as of this encounter Visit Diagnoses Diagnosis Moderate persistent asthma without complication documented in this encounter Additional Health Concerns Assessment Noted Time PHQ-9 Depression Total Score: 0 08/22/19 23 10:06 AM EDT documented as of this encounter Care Teams Drill Doctor Relationship Specialty Start Date End Date Kalpana Baptiste MD 230 [place], [place] [phone] PCP - General Family Medicine 06/14/20 Betsy Wray RN 505 [place] [address] Registered Nurse Family Medicine 09/28/24 12/30/24 Erika Saldivar 09/28/24 01/10/25 documented as of this encounter
--- OUTSIDE RECORDS SUMMARY | 2025-01-28 13:49 | XMS_ITS | Encounter Summary ---
Author Organization [employer] Address [address] [facility] 7t [place] [address] Care Team Providers Care Machine Baster Name Role Phone Kalpana Baptiste MD Primary Care Provide r Encounter Details Date Type Department Care Team (Latest Contact Info) Description 01/28/2025 Travel Social History Tobacco Use Types Packs/Day [...] the past 12 months, has t he [place], gas, oil or water [employer] threatened to shut off services in your [...] Description 05/03/2025 1:00 PM EST Clinical Support [facility] MEDICINE [address] [place] [address] Amanda Waldrop RN 06/22/2025 1:00 PM EST Office Visit [facility] ADULT DENTAL [address] [place] [address] Gloria Corey [address] [place] [address] documented as of this encounter Visit Diagnoses Not on filedocumented in this encounter Additional Health Concerns Assessment Noted Time PHQ-9 Depression Total Score: 0 10/16/19 25 3:24 PM EDT documented as of this encounter Care Teams Machine Baster Relationship Specialty Start Date End Date Kalpana Baptiste MD [address] [place] [address] PCP - General Family Medicine 06/14/20 documented as of this encounter
--- OUTSIDE RECORDS SUMMARY | 2025-01-28 13:49 | XMS_ITS | Encounter Summary ---
Author Organization [employer] Address [address] [facility] [address] 7t [place] [address] Care Team Providers Care Crayon Sawyer Name Role Phone Kalpana Baptiste MD Primary Care Provide r Betsy Wray RN Unavailable [phone] Erika Saldivar Unavailable Reason for Visit * Reason Comments Med Refill Encounter Details Date Type Department Care Team (Late st Contact Info) Description 02/18/2024 Refill [facility] MEDICINE [address] [place], [place] [phone] Caryl Biggs MD [address] [place], [place] [phone] Primary osteoarthritis of both knees Social History [...] 1:00 PM EST Clinical Support [facility] MEDICINE [address] [place] [address] Amanda Waldrop RN 06/22/2025 1:00 PM EST Office Visit [facility] ADULT DENTAL [address] [place] [address] Leora, Gloria [address] [place] [address] documented as of this encounter Visit Diagnoses Diagnosis Primary osteoarthritis of both knees documented in this encounter Additional Health Concerns Assessment Noted Time PHQ-9 Depression Total Score: 0 08/22/19 23 10:06 AM EDT documented as of this encounter Care Teams Crayon Sawyer Relationship Specialty Start Date End Date Kalpana Baptiste MD [address] [place] [address] PCP - General Family Medicine 06/14/20 Betsy Wray RN [address] [place] [address] Registered Nurse Family Medicine 09/28/24 12/30/24 Erika Saldivar 09/28/24 01/10/25 documented as of this encounter
--- OUTSIDE RECORDS SUMMARY | 2025-01-28 13:49 | XMS_ITS | Encounter Summary ---
Author Organization [employer] Address 75 [facility] 7t [place] [address] Care Team Providers Care Steel Rule Die Maker Name Role Phone Kalpana Baptiste MD Primary Care Provide r Reason for Visit * Reason Onset Date Comments chart prep 01/26/2025 Encounter Details Date Type Department Care Team ([facility] Contact Info) Description 01/26/2025 Telephone [facility] MEDICINE [address] [place], [place] [phone] Kalpana Baptiste MD [address] [place] [address] chart prep Social History Tobacco Use Types Packs/Day Years [...] encounter Miscellaneous Notes * Telephone Encounter - Izabel Kemp MA - 01/26/2025 9:58 AM EDT Chart Prep Labs: done Images: done Referrals: complete Vaccines due: Covid, Flu, PCV20, and RSV Screenings: colonoscopy and foot exam Overdue care gaps: Glucose, PHQ-9, and HOLGER-7 documented in this encounter Plan of Treatment Upcoming Encounters Date Type Department Care Team ([facility] st Contact Info) Description 05/03/2025 1:00 PM EST [facility] [address] [place] [address] [place] [address] Amanda Waldrop RN 06/22/2025 1:00 PM EST Office Visit [facility] ADULT DENTAL [address] [place] [address] LeoraGloria [address] [place] [address] documented as of this encounter Visit Diagnoses Not on filedocumented in this encounter Additional Health Concerns Assessment Noted Time PHQ-9 Depression Total Score: 0 10/16/19 25 3:24 PM EDT documented as of this encounter Care Teams Steel Rule Die Maker Relationship Specialty Start Date End Date Kalpana Baptiste MD [address] [place] [address] PCP - General Family Medicine 06/14/20 documented as of this encounter
--- OUTSIDE RECORDS SUMMARY | 2025-01-28 13:49 | XMS_ITS | Encounter Summary ---
Author Organization [employer] Address 75 [facility] 7[place] [address] Care Team Providers Care Oil Well Directional Surveyor Name Role Phone Kalpana Baptiset MD Primary Care Provide r Betsy Wray RN Unavailable [phone] Erika Saldivar Unavailable Reason for Visit * Reason Comments Med Refill Encounter Details Date Type Department Care Team (Late Contact Info) Description 10/23/2022 Refill [facility] CHC MED & PEDS [address] [place] [address] Tootie Tineo, ANP [address] [place], [place] [phone] Social History Tobacco Use Types Packs/Day Years [...] Description 05/03/2025 1:00 PM EST Clinical Support [facility] MEDICINE [address] [place] [address] Amanda Waldrop, NEGAR 06/22/2025 1:00 PM EST Office Visit [facility] ADULT DENTAL [address] [place], [place] [phone] Pierre Coreyaris [address] [place], [place] [phone] documented as of this encounter Visit Diagnoses Not on filedocumented in this encounter Additional Health Concerns Assessment Noted Time PHQ-9 Depression Total Score: 0 08/22/19 23 10:06 AM EDT documented as of this encounter Care Teams Oil Well Directional Surveyor Relationship Specialty Start Date End Date Kalpana Baptiste MD [address] [place], [place] [phone] PCP - General Family Medicine 06/14/20 Betsy Wray RN [address] [place] [address] Registered Nurse Family Medicine 09/28/24 12/30/24 Erika Saldivar 09/28/24 01/10/25 documented as of this encounter
--- OUTSIDE RECORDS SUMMARY | 2025-01-28 13:50 | XMS_ITS | Encounter Summary ---
Author Organization [employer] Address [address] [facility] [address] 7t [place] [address] Care Team Providers Care Supervisor Feed House Name Role Phone Kalpana Baptiste MD Primary Care Provide r Betsy Wray RN Unavailable [phone] Erika Saldivar Unavailable Reason for Visit * Reason Comments Med Refill Encounter Details Date Type Department Care Team (Late st Contact Info) Description 04/16/2023 Refill [facility] MEDICINE [address] [place], [place] [phone] Kalpana Baptiste MD 230 [place], [place] [phone] Chronic tension-type headache, not intractable Social History [...] Description 05/03/2025 1:00 PM EST Clinical Support [facility] MEDICINE [address] [place] [address] Amanda Waldrop RN 06/22/2025 1:00 PM EST Office Visit [facility] ADULT DENTAL [address] [place] [address] LeoraPierreGloria [address] [place] [address] documented as of this encounter Visit Diagnoses Diagnosis Chronic tension-type headache, not intractable Chronic tension type headache documented in this encounter Additional Health Concerns Assessment Noted Time PHQ-9 Depression Total Score: 0 08/22/19 23 10:06 AM EDT documented as of this encounter Care Teams Supervisor Feed House Relationship Specialty Start Date End Date Kalpana Baptiste MD [address] [place] [address] PCP - General Family Medicine 06/14/20 Betsy Wray RN [address] [place] [phone] Registered Nurse Family Medicine 09/28/24 12/30/24 Erika Saldivar 09/28/24 01/10/25 documented as of this encounter
--- OUTSIDE RECORDS SUMMARY | 2025-01-28 13:50 | XMS_ITS | Encounter Summary ---
Author Organization [employer] Address 75 [facility] 7t [place] [address] Care Team Providers Care Rubber Compounder Name Role Phone Kalpana Baptiste MD Primary Care Provide r Betsy Wray RN Unavailable [phone] Erika Saldivar Unavailable Reason for Visit * Reason Comments Med Refill Encounter Details Date Type Department Care Team ([facility] Contact Info) Description 06/11/[address] [facility] CHC MED & PEDS [address] [place] [address] Neida Garrett DO 230 [place] [address] Social History Tobacco Use Types Packs/Day Years [...] Upcoming Encounters Date Type Department Care Team ([facility] Contact Info) Description 05/03/2025 1:00 PM EST Clinical Support [facility] MEDICINE [address] [place] [address] Amanda Waldrop, NEGAR 06/22/2025 1:00 PM EST Office Visit [facility] ADULT DENTAL [address] [place], [place] [phone] Gloria Corey [address] [place] [address] documented as of this encounter Visit Diagnoses Not on filedocumented in this encounter Care Teams Rubber Compounder Relationship Specialty Start Date End Date Kalpana Baptiste MD [address] [place] [phone] PCP - General Family Medicine 06/14/20 Betsy Wray, NEGAR [address] [place] [address] Registered Nurse Family Medicine 09/28/24 12/30/24 Erika Saldivar 09/28/24 01/10/25 documented as of this encounter
--- OUTSIDE RECORDS SUMMARY | 2025-01-28 13:50 | XMS_ITS | Encounter Summary ---
Author Organization [employer] Address 75 [facility] 7t [place] [address] Care Team Providers Care Press Assistant And Feeder Name Role Phone Kalpana Baptiste MD Primary Care Provide r Betsy Wray RN Unavailable [phone] Erika Saldivar Unavailable Reason for Visit * Reason Comments Med Refill Encounter Details Date Type Department Care Team (Late st Contact Info) Description 10/19/2024 Refill [facility] MEDICINE [address] [place], [place] [phone] Kalpana Baptiste MD [address] [place], [place] [phone] Primary osteoarthritis of both knees Social History [...] the past 12 months, has t he [employer], gas, oil or water [employer] threatened to shut off services in your [...] Description 05/03/2025 1:00 PM EST Clinical Support [facility] MEDICINE [address] [place] [address] Amanda Waldrop RN 06/22/2025 1:00 PM EST Office Visit [facility] ADULT DENTAL [address] [place] [address] Gloria Corey [address] [place] [address] documented as of this encounter Visit Diagnoses Diagnosis Primary osteoarthritis of both knees documented in this encounter Additional Health Concerns Assessment Noted Time PHQ-9 Depression Total Score: 0 10/16/19 25 3:24 PM EDT documented as of this encounter Care Teams Press Assistant And Feeder Relationship Specialty Start Date End Date Kalpana Baptiste MD [address] [place] [address] PCP - General Family Medicine 06/14/20 Betsy Wray RN 505 [place] [address] Registered Nurse Family Medicine 09/28/24 12/30/24 Erika Saldivar 09/28/24 01/10/25 documented as of this encounter
--- OUTSIDE RECORDS SUMMARY | 2025-01-28 13:50 | XMS_ITS | Clinical Summary ---
Author Organization [facility] Address [address] [facility] [address] [place] [address] Phone Care Team Providers Care Publicity Consultant Name Role Phone Kalpana Baptiste MD [...] Active Problems Problem Noted Date Diagnosed Date halfway current use of opiate analgesic 2024 Anxiety 10/26/2024 Encounter for screening colonoscopy 10/26/2024 Enteritis caused by rotavirus 10/09/2024 Acute metabolic acidosis 10/04/2024 Migraine 08/13/2024 Osteoporosis 08/13/2024 Disorder of left Eustachian tube 06/07/2024 Mixed conductive and sensorineural hearing loss of left ear 06/07/2024 Other specified disorders of tympanic membrane, unspecified ear 06/07/2024 Mixed urinary incontinence 02/25/2024 Otitis externa of left ear 02/25/2024 Pain in right wrist 02/25/2024 Tendinitis of hand 01/30/2024 Otitis media of left ear 11/25/2023 Otitis media of left ear 11/25/2023 Diarrhea 09/23/2023 Acute otitis media 08/21/2023 Dry eyes 08/21/2023 Gouty arthritis of multiple sites 06/02/2023 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 Preprocedural examination done 02/12/2023 Heartburn 01/28/2023 Primary insomnia 01/28/2023 Gastroesophageal reflux disease 12/16/2022 01/10/2023 Foot pain [...] 12/1601/10/2023 Urinary tract infectious disease 12/16/2022 01/10/2023 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 Patient encounter status 08/21/2022 Overview (09/09/2022): Last [...] Steatosis of liver 05/14/2022 Renal stone 05/14/2022 Primary gonarthrosis, bilateral 05/14/2022 Overview (12/28/2024): Last Assessment & Plan: Patient has not had surgery due to her anemia I will order CBC today if hgb still too low I will communicate with hematology to plan and try to conduct patient to have her b/l knee replacement for improvement of her quality of life Essential hypertension 02/01/2021 Proteinuria 02/01/2021 Renal disorder [...] Referral to sleep medicine ordered Obesity 03/02/2015 Epigastric pain 10/29/2012 History of bone marrow transplant 08/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 [address] [facility] [address] [place] [phone] Eben Us MD 12/28/2024 1:45 PM EDT Office Visit [facility] [address] [phone] Eben Us MD Stage 3b chronic kidney disease (HCC) (Primary Dx); Renal disorder due to type 2 diabetes mellitus <Diabetic nephropathy> (HCC); Proteinuria, not otherwise specified; Renal stone from Last 3 Months Immunizations Immunization Administration Dates Next Due DTP / HiB 08/09/2013 DTaP 5 08/10/2014,12/01/2013 Hep B, Adolescent or Pediatric 07/23/2010,2010 Hepatitis A 10/14/2018 Hepatitis B 11/15/2014, 5,12/01/2013,08/09 Hib (PRP-OMP) 08/10/2014,12/01/2013 IPV 08/10/2014,12/01/2013,08/09/2013 Influenza (IM) Preservative Free 02/04/2024,03/06,01/26/2014 Influenza Split 01/09/2012 Influenza TIV (IM) 02/23/2014 Influenza, Quadrivalent, Pre servative Free 02/12/2023,02/20/2021,02/18/2020,02/11,02/17/2017 Influenza, Quadrivalent, Wit h Preservative 01/18/2019,03/02/2015 MMR 12/24/2000,02/06/2000 Meningococcal MCV4P 08/09/2013 Moderna SARS-COV-2 05/08/2021,07/05/2020, 021 Pneumococcal Conjugate 13-Valent 03/24/2016 Pneumococcal Polysaccharide 03/24/2016,0 [...] Sign Reading Time Taken Comments Blood Pressure 134/62 12/28/2024 1:50 PM EDT Pulse 66 12/28/2024 1:50 PM EDT Temperature - - Respiratory Rate - - Oxygen Saturation 99% 12/28/2024 1:50 PM EDT Inhaled Oxygen Concentration - - Weight 103 kg (227 lb 9.6 oz) 12/28/2024 1:50 PM EDT Height 170.2 cm (5' 7 ) 08/27/2018 12:00 PM EDT Body Mass Index 35.65 08/27/2018 12:00 PM EDT Plan of Treatment Upcoming Encounters Date Type Department Care Team (Late st Contact Info) Description 02/08/2025 1:30 PM EDT Office Visit [facility] [address] [phone] Neida Fernandes ARNP [address] [phone] Health Maintenance Due Date Last Done Comments Breast Cancer Screening 1965 Colorectal Cancer Screening: Annual FOBT 2012 Colorectal Cancer Screening: Sigmoidoscopy 2012 Diabetes: [...] 12/01/2013, Additional history exists Diabetes: Hemoglobin A1C 11/04/202408/05/2 025, 02/25/2024, 08/21/2022, Additional history exists Influenza Vaccine (#1) 2025 4, 02/12/2023, 02/20/2021, Additional history exists Colorectal Cancer Screening: Colonoscopy 10/26/2034 10/26/2024 Pneumococcal Vaccine: Peds ( 0 to 5 Years) and At-Risk Patients (6 to 49 Years) Discontinued 03/24/2016, 03/24/2016, 08/10/2014, Additional history exists Procedures Procedure Name Priority Date/Time Associated Diagnosis Comments PTH, INTACT Routine 01/18/2025 1:51 PM EDT URINE CULTURE Routine 01/18/2025 1:51 PM EDT MAGNESIUM Routine 01/18/2025 1:51 PM EDT VITAMIN D 25 HYDROXY Routine 01/18/2025 1:51 PM EDT URINE ALBUMIN / CREATININE RATIO Routine 01/18/2025 1:51 PM EDT PROTEIN / CREATININE RATIO, URINE Routine 01/18/2025 1:51 PM EDT CBC Routine 01/18/2025 1:51 PM EDT RENAL FUNCTION PANEL Routine 01/18/2025 1:51 PM EDT URINALYSIS WITH MICROSCOPIC Routine 01/18/2025 1:51 PM EDT RESULT Routine 01/18/2025 1:51 PM EDT MICROSCOPIC EXAMINATION - DO NOT USE Routine 01/18/2025 1:51 PM EDT from Last 3 Months Results * (ABNORMAL) Result (01/18/2025 1:51 PM EDT) Result Comment(A ) [facility] Comment: Beta hemolytic Streptococcus, group B 10,000-25,000 colony forming units per mL Penicillin and ampicillin are drugs of choice for treatment of beta-hemolytic streptococcal infections. Susceptibility testing of penicillins and other beta-lactam agents approved by the FDA for treatment of beta-hemolytic streptococcal infections need not be performed routinely because nonsusceptible isolates are extremely rare in any beta-hemolytic streptococcus and have not been reported for Streptococcus pyogenes (group A). (CLSI) 01/18/2025 1:51 PM EDT 01/18/2025 Eben Us MD LAB MICROBIOLOGY - GENERAL OR DERABLES Final Result [facility] [address] [place] [address] * Microscopic Examination (01/18/2025 1:51 PM EDT) WBC, Urine None seen 0 - 5 /hpf [facility] RBC, Urine None seen 0 - 2 /hpf [facility] Squamous Epithelial, Urine 0-10 0 - 10 /hpf [facility] Casts None seen None seen /lpf [facility] Bacteria, Urine None seen None seen/Few [facility] 01/18/2025 1:51 PM EDT 01/18/2025 Eben Us MD LAB MICROBIOLOGY - GENERAL OR DERABLES Final Result [facility] [address] [place] [address] * (ABNORMAL) Protein, Total, Random Urine w/Creatinine (Protein/Creat Ratio) (01/18/2025 1:51 PM EDT) Creatinine, Ur 77.6 Not Estab. mg/dL [facility] Protein, Ur 30.0 Not Estab. mg/dL [facility] Urine Protein/Creati nine Ratio 387(H) 0 - 200 mg/g creat [facility] 01/18/2025 1:51 PM EDT 01/18/2025 Comment: Eben Us MD LAB URINE ORDERABLES Final Re sult [facility] [address] [place] [address] * (ABNORMAL) Urine Albumin / Creatinine Ratio (01/18/2025 1:51 PM EDT) Albumin, Urine 162.4 Not Estab. ug/mL [facility] Albumin/Creatin ine Ratio 209(H) 0 - 29 mg/g creat [facility] Comment: Normal: 0 - 29 Moderately increased: 30 - 300 Severely increased: >300 01/18/2025 1:51 PM EDT 01/18/2025 Comment: Eben Us MD LAB URINE ORDERABLES Final Re sult Performing Organization Address City/[facility]/ZIP Co de Phone Number [facility] [address] [place] [address] * (ABNORMAL) Vitamin D 25 Hydroxy (01/18/2025 1:51 PM EDT) Vitamin D, 25-OH, Total 25.2(L) 30.0 - 100.0 ng/mL [facility] Comment: Vitamin D deficiency has been defined by the [place] of Medicine and an Endocrine Society practice guideline as a level of serum 25-OH vitamin D less than 20 ng/mL (1,2). The Endocrine Society went on to further define vitamin D insufficiency as a level between 21 and 29 ng/mL (2). 1. IOM ([place] of Medicine). 2010. Dietary reference intakes for calcium and D. [place]: The National Academies Press. 2. [employer]oc MF, [place] RENDON, Althea LUCIANO, et al. Evaluation, treatment, and prevention of vitamin D deficiency: an Endocrine Society clinical practice guideline. JCEM. 2010; 96(7):1911-30. 01/18/2025 1:51 PM EDT 01/18/2025 Comment:UC us Eben Us MD LAB BLOOD ORDERABLES Final Re sult [facility] [address] [place] [address] * (ABNORMAL) Urinalysis with microscopic (01/18/2025 1:51 PM EDT) Specific [place], Urine 1.015 1.005 - 1.030 [facility] pH Urine 5.5 5.0 - 7.5 [facility] Color, Urine Yellow Yellow [facility] Appearance Urine Clear Clear [facility] WBC Esterase Urine Negative Negative [facility] [phone] Protein, Ur 1+(A) Negative/Tra ce [facility] Glucose, Ur Negative Negative [facility] [phone] Ketones, Urine Negative Negative [facility] Blood Urine Trace(A) Negative [facility] Bilirubin Urine Negative Negative [facility] Urobilinogen Urine 0.2 0.2 - 1.0 mg/dL [facility] Nitrite, Urine Negative Negative [facility] Microscopic Examination See below: [facility] [phone] Comment:Microscopic was steve cated and was performed. 01/18/2025 1:51 PM EDT 01/18/2025 Eben Us MD LAB URINE ORDERABLES Final Re sult Performing Organization Address [facility] de Phone Number [facility] [address] [place] [address] * (ABNORMAL) CBC (01/18/2025 1:51 PM EDT) WBC 3.8 3.4 - 10.8 x10E3/uL [facility] RBC 3.21(L) 3.77 - 5.28 x10E6/uL [facility] Hemoglobin 9.8(L) 11.1 - 15.9 g/dL [facility] Hematocrit 29.9(L) 34.0 - 46.6 % [facility] MCV 93 79 - 97 fL [facility] MCH 30.5 26.6 - 33.0 pg [facility] MCHC 32.8 31.5 - 35.7 g/dL [facility] RDW 13.9 11.7 - 15.4 % [facility] Platelets 215 150 - 450 x10E3/uL [facility] 01/18/2025 1:51 PM EDT 01/18/2025 Eben Us MD LAB BLOOD ORDERABLES Final Re sult Performing Organization Address City/[facility]/ZIP Co de Phone Number [facility] [address] [place] [address] * (ABNORMAL) Urine Culture (01/18/2025 1:51 PM EDT) Culture Result, Urine Final report(A) [facility] 01/18/2025 1:51 PM EDT 01/18/2025 Comment: Eben Us MD LAB URINE ORDERABLES Final Re sult [facility] [address] [place] [address] * (ABNORMAL) PTH, Intact (01/18/2025 1:51 PM EDT) PTH 95(H) 15 - 65 pg/mL [facility] 01/18/2025 1:51 PM EDT 01/18/2025 Eben Us MD LAB BLOOD ORDERABLES Final Re sult Performing Organization Address City/[facility]/ZIP Co de Phone Number [facility] [address] [place] [address] * Magnesium (01/18/2025 1:51 PM EDT) Magnesium 2.0 1.6 - 2.3 mg/dL [facility] 01/18/2025 1:51 PM EDT 01/18/2025 Comment: Eben Us MD LAB BLOOD ORDERABLES Final Re sult Performing Organization Address City/[facility]/ZIP Co de Phone Number [facility] [address] [place] [address] * (ABNORMAL) Renal Function Panel (01/18/2025 1:51 PM EDT) Glucose 95 70 - 99 mg/dL [facility] BUN 37(H) 8 - 27 mg/dL [facility] Creatinine 2.08(H) 0.57 - 1.00 mg/dL [facility] eGFR CKD-EPI CR 2020 27(L) >59 mL/min/1.7 3 [facility] BUN/Creatinine Ratio 18 12 - 28 [facility] Sodium 143 134 - 144 mmol/L [facility] Potassium 4.6 3.5 - 5.2 mmol/L [facility] Chloride 107(H) 96 - 106 mmol/L [facility] Bicarbonate (CO2) 19(L) 20 - 29 mmol/L [facility] Calcium 8.9 8.7 - 10.3 mg/dL [facility] Albumin 4.3 3.9 - 4.9 g/dL [facility] Phosphorus 3.5 3.0 - 4.3 mg/dL [facility] 01/18/2025 1:51 PM EDT 01/18/2025 Comment: Eben Us MD LAB BLOOD ORDERABLES Final Re sult [facility] [address] [place] [address] from Last 3 Months Insurance [place] Care Teams Publicity Consultant Relationship Specialty Start Date End Date Kalpana Baptiste MD [address] [place] [phone] PCP - General Internal Medicine 07/03/21
--- OUTSIDE RECORDS SUMMARY | 2025-01-28 13:50 | XMS_ITS | Encounter Summary ---
Author Organization [employer] Address [address] [facility] [address] 7t [place] [address] Care Team Providers Care Social Media Sr Strategy Manager Name Role Phone Kalpana Baptiste MD Primary Care Provide r Betsy Wray RN Unavailable [phone] Erika Saldivar Unavailable Reason for Visit * Reason Comments Med Refill Encounter Details Date Type Department Care Team (Late st Contact Info) Description 04/08/[address] [facility] MEDICINE [address] [place], [place] [phone] Kalpana Baptiste MD 230 [place], [place] [phone] Chronic tension-type headache, not intractable Social History [...] 05/03/2025 1:00 PM EST Clinical Support [facility] [address] [place] [address] Amanda Waldrop RN 06/22/2025 1:00 PM EST Office Visit [facility] ADULT DENTAL [address] [place] [address] LeoraPierreGloria [address] [place] [address] documented as of this encounter Visit Diagnoses Diagnosis Chronic tension-type headache, not intractable Chronic tension type headache documented in this encounter Additional Health Concerns Assessment Noted Time PHQ-9 Depression Total Score: 0 08/22/19 23 10:06 AM EDT documented as of this encounter Care Teams Social Media Sr Strategy Manager Relationship Specialty Start Date End Date Kalpana Baptiste MD [address] [place] [address] PCP - General Family Medicine 06/14/20 Betsy Wray RN [address] [place] [address] Registered Nurse Family Medicine 09/28/24 12/30/24 Erika Saldivar 09/28/24 01/10/25 documented as of this encounter
--- OUTSIDE RECORDS SUMMARY | 2025-01-28 13:50 | XMS_ITS | Encounter Summary ---
Author Organization [employer] Address [address] [facility] 7t [place] [address] Care Team Providers Care Side Seam Tender Name Role Phone Kalpana Baptiste MD Primary Care Provide r Betsy Wray RN Unavailable [phone] Erika Saldivar Unavailable Reason for Visit * Reason Comments Med Refill Encounter Details Date Type Department Care Team ([facility] Contact Info) Description 06/10/2022 Refill [facility] [address] [place] [address] Neida Garrett DO [address] [place] [address] Social History Tobacco Use Types Packs/Day Years [...] Upcoming Encounters Date Type Department Care Team ([facility] Contact Info) Description 05/03/2025 1:00 PM EST Clinical Support [facility] MEDICINE [address] [place] [address] Amanda Waldrop, NEGAR 06/22/2025 1:00 PM EST Office Visit [facility] ADULT DENTAL [address] [place], [place] [phone] Gloria Corey [address] [place] [address] documented as of this encounter Visit Diagnoses Not on filedocumented in this encounter Care Teams Side Seam Tender Relationship Specialty Start Date End Date Kalpana Baptiste MD [address] [place] [address] [phone] PCP - General Family Medicine 06/14/20 Betsy Wray, NEGAR [address] [place] [address] Registered Nurse Family Medicine 09/28/24 12/30/24 Erika Saldivar 09/28/24 01/10/25 documented as of this encounter
--- OUTSIDE RECORDS SUMMARY | 2025-01-28 13:50 | XMS_ITS | Encounter Summary ---
Author Organization [facility] Address [address] [place] [address] Care Team Providers Care Jewelry Designer Name Role Phone Kalpana Baptiste MD Primary Care Provider Reason for Visit * Reason Onset Date Comments BMT appt 05/31/2020 Encounter Details Date Type Department Care Team ([facility] Contact Info) Description 05/31/2020 Telephone [facility] Central Scheduling Department [address] [place] [address] Telephone Intake, Staff BMT appt Social History [...] PM EST Pt of [facility]. Bernal at [facility] Calling to schedule a follow up appt CS unable to book as requested. BM Line not available Please call for appt at [phone] documented in this encounter Plan of Treatment Upcoming Encounters Date Type Department Care Team ([facility] Contact Info) Description 02/16/2025 9:00 AM EDT Lab [facility] [address] [place] [phone] 02/16/2025 10:00 AM EDT Follow-Up [facility] [address] [place] [address] Vickie Victor NP [address] [place] [address] documented as of this encounter Visit Diagnoses Not on filedocumented in this encounter Care Teams Jewelry Designer Relationship Specialty Start Date End Date Kalpana Baptiste MD [address] [place] [address] PCP - General 11/22/20 documented as of this encounter
--- OUTSIDE RECORDS SUMMARY | 2025-01-28 13:50 | XMS_ITS | Encounter Summary ---
Author Organization [employer] Address [address] [facility] [address] 7t [place] [address] Care Team Providers Care Tube Operator Name Role Phone Kalpana Baptiste MD Primary Care Provide r Betsy Wray RN Unavailable [phone] Erika Saldivar Unavailable Reason for Visit * Reason Comments Med Refill Encounter Details Date Type Department Care Team (Late st Contact Info) Description 03/31/2024 Refill [facility] MEDICINE 230 [place], [place] [phone] Kalpana Baptiste MD [address] [place], [place] [phone] Type 2 diabetes mellitus with other specified complication, unspecified whether intermediate insulin use ([facility]); Primary osteoarthritis of both knees [...] housing situation today? I have nora brad 02/18/[address] you li [...] Description 05/03/2025 1:00 PM EST Clinical Support [facility] MEDICINE [address] [place] [address] Amanda Waldrop RN 06/22/2025 1:00 PM EST Office Visit [facility] ADULT DENTAL [address] [place] [address] Gloria Corey [address] [place] [address] documented as of this encounter Visit Diagnoses Diagnosis Type 2 diabetes mellitus with other specified complication, unspecified whether intermediate insulin use ([facility]) Primary osteoarthritis of both knees documented in this encounter Additional Health Concerns Assessment Noted Time PHQ-9 Depression Total Score: 0 08/22/19 23 10:06 AM EDT documented as of this encounter Care Teams Tube Operator Relationship Specialty Start Date End Date Kalpana Baptiste MD [address] [place] [address] PCP - General Family Medicine 06/14/20 Betsy Wray RN [address] [place] [address] Registered Nurse Family Medicine 09/28/24 12/30/24 Erika Saldivar 09/28/24 01/10/25 documented as of this encounter
--- OUTSIDE RECORDS SUMMARY | 2025-01-28 13:50 | XMS_ITS | Encounter Summary ---
Author Organization [employer] Address [address] [facility] [address] 7t [place] [address] Care Team Providers Care Set Up Mechanic Heading Machines Name Role Phone Kalpana Baptiste MD Primary Care Provide r Betsy Wray RN Unavailable [phone] Erika Saldivar Unavailable Reason for Visit * Reason Comments Med Refill Encounter Details Date Type Department Care Team (Late st Contact Info) Description 03/23/2024 Refill [facility] MEDICINE [address] [place], [place] [phone] Kalpana Baptiste MD [address] [place], [place] [phone] Type 2 diabetes mellitus with other specified complication, unspecified whether residential insulin use ([facility]); Primary osteoarthritis of both knees Social History [...] 1:00 PM EST Clinical Support [facility] MEDICINE [address] [place] [address] Amanda Waldrop RN 06/22/2025 1:00 PM EST Office Visit [facility] ADULT DENTAL [address] [place] [address] Gloria Corey [address] [place] [address] documented as of this encounter Visit Diagnoses Diagnosis Type 2 diabetes mellitus with other specified complication, unspecified whether residential insulin use ([facility]) Primary osteoarthritis of both knees documented in this encounter Additional Health Concerns Assessment Noted Time PHQ-9 Depression Total Score: 0 08/22/19 23 10:06 AM EDT documented as of this encounter Care Teams Set Up Mechanic Heading Machines Relationship Specialty Start Date End Date Kalpana Baptiste MD [address] [place] [address] PCP - General Family Medicine 06/14/20 Betsy Wray RN [address] [place] [address] Registered Nurse Family Medicine 09/28/24 12/30/24 Erika Saldivar 09/28/24 01/10/25 documented as of this encounter
--- OUTSIDE RECORDS SUMMARY | 2025-01-28 13:50 | XMS_ITS | Encounter Summary ---
Author Organization [employer] Address [address] [facility] 7t [place] [address] Care Team Providers Care Sulfuric Acid Plant Operator Name Role Phone Kalpana Baptiste MD Primary Care Provide r Betsy Wray RN Unavailable [phone] Erika Saldivar Unavailable Reason for Visit * Reason Comments Med Refill Encounter Details Date Type Department Care Team (Late st Contact Info) Description 05/14/2023 Refill [facility] MEDICINE [address] [place], [place] [phone] Kalpana Baptiste MD [address] [place], [place] [phone] Primary osteoarthritis of both knees; Heartburn Social [...] Support [facility] MEDICINE [address] [place] [address] Amanda Waldrop RN 06/22/2025 1:00 PM EST Office Visit [facility] ADULT DENTAL [address] [place] [address] Leora, Gloria [address] [place] [address] documented as of this encounter Visit Diagnoses Diagnosis Primary osteoarthritis of both knees Heartburn documented in this encounter Additional Health Concerns Assessment Noted Time PHQ-9 Depression Total Score: 0 08/22/19 23 10:06 AM EDT documented as of this encounter Care Teams Sulfuric Acid Plant Operator Relationship Specialty Start Date End Date Kalpana Baptiste MD [address] [place] [address] PCP - General Family Medicine 06/14/20 Betsy Wray RN [address] [place] [address] Registered Nurse Family Medicine 09/28/24 12/30/24 Erika Saldviar 09/28/24 01/10/25 documented as of this encounter
--- OUTSIDE RECORDS SUMMARY | 2025-01-28 13:50 | XMS_ITS | Encounter Summary ---
Author Organization [employer] Address 75 [facility] 7t [place] [address] Care Team Providers Care System Support Developer Name Role Phone Kalpana Baptiste MD Primary Care Provide r Betsy Wray RN Unavailable [phone] Erika Saldivar Unavailable Reason for Visit * Reason Comments Med Refill Encounter Details Date Type Department Care Team (Late st Contact Info) Description 07/06/2024 Refill [facility] MEDICINE [address] [place], [place] [phone] Kalpana Baptiste MD [address] [place], [place] [phone] Primary osteoarthritis of both knees Social History [...] Description 05/03/2025 1:00 PM EST Clinical Support [facility] [address] [place] [address] Amanda Waldrop RN 06/22/2025 1:00 PM EST Office Visit [facility] ADULT DENTAL [address] [place] [address] Pierre Coreyaris [address] [place] [address] documented as of this encounter Visit Diagnoses Diagnosis Primary osteoarthritis of both knees documented in this encounter Additional Health Concerns Assessment Noted Time PHQ-9 Depression Total Score: 0 05/06/19 25 2:15 PM EST documented as of this encounter Care Teams System Support Developer Relationship Specialty Start Date End Date Kalpana Baptiste MD [address] [place] [address] PCP - General Family Medicine 06/14/20 Betsy Wray RN [address] [place] [address] Registered Nurse Family Medicine 09/28/24 12/30/24 Erika Saldivar 09/28/24 01/10/25 documented as of this encounter
--- OUTSIDE RECORDS SUMMARY | 2025-01-28 13:50 | XMS_ITS | Encounter Summary ---
Author Organization [employer] Address [address] [facility] 7t [place] [address] Care Team Providers Care Cashier Name Role Phone Kalpana Baptiste MD Primary Care Provide r Betsy Wray RN Unavailable [phone] Erika Saldivar Unavailable Reason for Visit * Reason Onset Date Comments Med Refill 06/03/2023 Encounter Details Date Type Department Care Team ([facility] st Contact Info) Description 06/03/2023 Telephone [facility] MEDICINE [address] [place], [place] [phone] Kalpana Baptiste MD 230 [place], [place] [phone] Med Refill Social History Tobacco Use Types [...] Metformin 500 mg To be sent to: [facility] [address] documented in this encounter Plan of Treatment Upcoming Encounters Date Type Department Care Team (Late st Contact Info) Description 05/03/2025 1:00 PM EST Clinical Support [facility] MEDICINE [address] [place], [place] [phone] Amanda Waldrop RN 06/22/2025 1:00 PM EST Office Visit [facility] ADULT DENTAL [address] [place], [place] [phone] Gloria Corey [address] [place] [address] documented as of this encounter Visit Diagnoses Not on filedocumented in this encounter Additional Health Concerns Assessment Noted Time PHQ-9 Depression Total Score: 0 08/22/19 23 10:06 AM EDT documented as of this encounter Care Teams Cashier Relationship Specialty Start Date End Date Kalpana Baptiste MD [address] [place] [address] PCP - General Family Medicine 06/14/20 Betsy Wray RN [address] [place] [address] Registered Nurse Family Medicine 09/28/24 12/30/24 Erika Saldivar 09/28/24 01/10/25 documented as of this encounter
--- OUTSIDE RECORDS SUMMARY | 2025-01-28 13:50 | XMS_ITS | Encounter Summary ---
Author Organization [employer] [facility] Address [address] [facility] 7t [place] [address] Care Team Providers Care Flat Sorter Processor Name Role Phone Kalpana Baptiste MD Primary Care Provide r Betsy Wray RN Unavailable [phone] Erika Saldivar Unavailable Encounter Details Date Type Department Care Team (Latest Contact Info) Description 06/07/[address] [facility] CONVERSIONS Dental, Provider, DDS Social [...] 1:00 PM EST Clinical Support [facility] MEDICINE [address] [place], [place] [phone] Amanda Waldrop, NEGAR 06/22/2025 1:00 PM EST Office Visit [facility] ADULT DENTAL [address] [place], [place] [phone] Gloria Corey 230 [place] [address] documented as of this encounter Visit Diagnoses Not on filedocumented in this encounter Care Teams Flat Sorter Processor Relationship Specialty Start Date End Date Kalpana Baptiste MD 230 [place], [place] [phone] PCP - General Family Medicine 06/14/20 Betsy Wray RN [address] [place] [address] [place] [address] Registered Nurse Family Medicine 09/28/24 12/30/24 Erika Saldivar 09/28/24 01/10/25 documented as of this encounter
--- OUTSIDE RECORDS SUMMARY | 2025-01-28 13:50 | XMS_ITS | Encounter Summary ---
Author Organization [employer] Address [address] [facility] 7t [place] [address] Care Team Providers Care Pvc Loader Name Role Phone Kalpana Baptiste MD Primary Care Provide r Betsy Wray RN Unavailable [phone] Erika Saldivar Unavailable Reason for Visit * Reason Comments Med Refill Encounter Details Date Type Department Care Team (Late st Contact Info) Description 03/07/2023 Refill [facility] MED[facility]INE [address] [place], [place] [phone] Kalpana Baptiste MD 230 [place], [place] [phone] Primary osteoarthritis of both knees; Chronic tension-type [...] Description 05/03/2025 1:00 PM EST Clinical Support [facility] MEDICINE [address] [place] [address] Amanda Waldrop RN 06/22/2025 1:00 PM EST Office Visit [facility] ADULT DENTAL [address] [place] [address] Leora, Gloria [address] [place] [address] documented as of this encounter Visit Diagnoses Diagnosis Primary osteoarthritis of both knees Chronic tension-type headache, not intractable Chronic tension type headache documented in this encounter Additional Health Concerns Assessment Noted Time PHQ-9 Depression Total Score: 0 08/22/19 23 10:06 AM EDT documented as of this encounter Care Teams Pvc Loader Relationship Specialty Start Date End Date Kalpana Baptiste MD [address] [place] [address] PCP - General Family Medicine 06/14/20 Betsy Wary RN [address] [place] [address] Registered Nurse Family Medicine 09/28/24 12/30/24 Erika Saldivar 09/28/24 01/10/25 documented as of this encounter
--- OUTSIDE RECORDS SUMMARY | 2025-01-28 13:50 | XMS_ITS | Encounter Summary ---
Author Organization [employer] Address [address] [facility] 7t [place] [address] Care Team Providers Care Pmp Certified Project Manager Name Role Phone Kalpana Baptiste MD Primary Care Provide r Betsy Wray RN Unavailable [phone] Erika Saldivar Unavailable Encounter Details Date Type Department Care Team ([facility] Contact Info) Description 05/17/2022 Orders Only [facility] MEDICINE [address] [place] [phone] Marilyn Corral MD [address] [place] [address] Acute idiopathic gout involving toe of right [...] [facility] Info) Description 05/03/2025 1:00 PM EST Clinical Support [facility] MEDICINE [address] [place] [address] Amanda Waldrop RN 06/22/2025 1:00 PM EST Office Visit [facility] ADULT DENTAL [address] [place], [place] [phone] Pierre Coreyaris [address] [place], [place] [phone] documented as of this encounter Visit Diagnoses Diagnosis Acute idiopathic gout involving toe of right foot documented in this encounter Care Teams Pmp Certified Project Manager Relationship Specialty Start Date End Date Kalpana Baptiste MD [address] [place] [address] [phone] PCP - General Family Medicine 06/14/20 Betsy Wray RN [address] [place] [address] Registered Nurse Family Medicine 09/28/24 12/30/24 Erika Saldivar 09/28/24 01/10/25 documented as of this encounter
--- OUTSIDE RECORDS SUMMARY | 2025-01-28 13:50 | XMS_ITS | Clinical Summary ---
Author Organization [facility] Address [address] [place] [address] Phone Care Team Providers Care Screed Operator Name Role Phone Kalpana Baptiste MD Primary Care Provide r Allergies Active Allergy Reactions Criticality Noted Date Comments Aspirin Rash,Flushing,Itchin g,U nknown,Other High 03/03/2019 Other reaction(s): Flushing, Other (see comments), unspecified Other reaction(s): SWELLING/ITCHING, rash Other Reaction(s): itching Penicillins Rash 03/03/2019 Vancomycin 03/05/2024 Medications loratadine 10 mg capsule Take 10 mg [...] mg total) by mouth at bedtime. Active sucralfate (CARAFATE) 1 gram tablet Take by mouth 3 (three) times a day. Active amLODIPine (NORVASC) 10 mg tablet Take 1 tablet (10 mg total) by mouth 1 (one) time each day. 30 each 5 Active fluticasone propionate (FLONASE) 50 mcg/actuation nasal spray Administer 2 sprays into each nostril 1 (one) time each day. Shake gently. Before first use, prime pump. After use, clean tip and replace cap. 16 g 11 5 Active hydroCHLOROthi azide (MICROZIDE) 12.5 mg capsule Take 1 capsule (12.5 mg total) by mouth 1 (one) time each day. Active losartan (COZAAR) 25 mg tablet Take 1 tablet (25 mg total) by mouth 1 (one) time each day. Active cholecalcifero l (VITAMIN D-3) 25 mcg (1,000 unit) capsule Take 25 mcg by mouth daily. 5 Active ruxolitinib (JAKAFI) 5 mg tablet Take 1 tablet (5 mg total) by mouth 2 (two) times a day 2 Active metFORMIN (GLUCOPHAGE) 500 mg tablet Take 1 tablet (500 mg total) by mouth 2 (two) times a day with meals. 8 Active oxyCODONE (ROXICODONE) 5 mg immediate release tablet Take 1 tablet (5 mg total) by mouth every 6 (six) hours if needed for severe pain. 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, [facility] V28) 05/06/2023 Heartburn 01/28/2023 Primary insomnia 01/28/2023 Abdominal bloating 12/16/2022 Alopecia 12/16/2022 Biliary dyskinesia 12/16/2022 Cholecystitis without calculus 12/16/2022 Contusion of right foot 12/16/2022 Dyslipidemia 12/16/2022 Dyspnea on exertion 12/16/2022 Fall 12/16/2022 Gastroesophageal reflux disease 12/16/2022 Heel spur 12/16/2022 Meningioma ([facility] V24, [facility] V28) 12/16/2022 Urinary tract infection 12/16/2022 Pain of foot 12/16/2022 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 I gave the patient a BP log. Acute kidney failure, unspecified ([facility] V24) 05/14/2022 Chronic gouty arthritis 05/14/2022 Overview [...] due to type 2 di abetes mellitus ([facility] V24, [facility] V28) 02/01/2021 Diabetic nephropathy associa nick with type 2 diabetes mellitus ([facility] V24, [facility] V28) 02/01/2021 Proteinuria 02/01/2021 Vitamin D deficiency 03/20/2017 Moderate persistent asthma 06/01/2015 Type 2 diabetes mellitus ([facility] V24, [facility] V 28) 03/29/2015 Overview (08/13/2024): Last Assessment & Plan: Today A1c 6.7 Lab Results Component Value Date CREATININE 1.91 (H) 08/17/2022 - Diabetic eye exam: referral to eye care today - Diabetic foot exam: done today - Continue lifestyle modifications - Continue current medications Allergic rhinitis 03/02/2015 Anemia 03/02/2015 Depressive disorder 03/02/2015 Indigestion 03/02/2015 Chronic myeloproliferative d isease ([facility] V24, [facility] V28) 03/02/2015 Obstructive sleep apnea syndrome 03/02/2015 Overview (08/13/2024): Last Assessment & Plan: Referral to sleep medicine ordered Obesity 03/02/2015 Acute pharyngitis 12/29/2013 Cough 06/16/2013 Chronic fxmdm-xcwpvx-ftnh di sease ([facility] V24, [facility] V28) 05/19/2013 Headache 03/24/2013 Dysuria 12/30/2012 Epigastric pain 10/29/2012 Status post bone marrow albarran splant ([facility] V24, [facility] V28) 08/27/2012 Anxiety disorder 06/24/2012 Major depressive disorder, single episode 2012 Lower back pain 06/03/2012 Spleen enlargement 05/13/2012 Asthma 03/06/2012 Hyperlipidemia 03/06/2012 Hypertension 03/06/2012 Myelofibrosis ([facility] V24, [facility] V28) 012 Encounters Date Type Department Care Team Description 01/17/2025 10:45 AM EDT Office Visit Orthopedic Surgery [facility] [address] [phone] Lee Delaney DPM Primary osteoarthritis of both feet (Primary Dx); Metatarsalgia of both feet; Diabetic mononeuropathy simplex ([facility] V24, [facility] V28); Dermatophytosis of nail 12/09/2024 9:00 AM EDT Office Visit Orthopedic [facility] [address] [phone] Lee Delaney DPM Primary osteoarthritis of both feet (Primary Dx); Dermatophytosis of nail; Pain in toe of right foot; Pain in toe of left foot; Diabetic mononeuropathy simplex ([facility] V24, [facility] V28); Metatarsalgia of both feet from Last 3 Months Surgical History Surgery Date Site/Laterality Comments BONE MARROW TRANSPLANT TOTAL ABDOMINAL HYSTERECTOMY W/ BILATERAL SALPINGOOPHORECTOMY TOTAL KNEE ARTHROPLASTY Medical History Medical History Date Comments Hypertension Asthma Diabetes mellitus ([facility] V24, [facility] V28) GERD (gastroesophageal reflux disease) CKD (chronic kidney disease) Myelofibrosis ([facility] V24, [facility] V28) Gout BERNIE (obstructive sleep apnea) Diabetic neuropathy ([facility] V24, [facility] V28) Osteoarthritis Family History Medical History Relation Name Comments Heart disease Father Chronic Kidney Disease Mother Diabetes Mother Heart disease Mother htn Mother Breast cancer Sister Diabetes Sister Relation Name Status Comments Father Mother Sister Social History Tobacco Use Types Packs/Day Years Used Date Smoking Tobacco: Never Smokeless Tobacco: Never Tobacco Cessation:Counseling Given: No Food Risk Answer Date Recorded Within the past 12 months we worried whether our food would run out before we got money to buy more. Not asked 10/07/2024 Within the past 12 months th e food we bought just didn't last and we didn't have money to get more. Not asked 10/07/2024 Interpersonal Safety Answer Date Record ed Physical Abuse 10/04/2024 Verbal Abuse 10/04/2024 Comments Unknown Sex and Gender Information Value Date Recorded Sex Assigned at Not on file Legal Sex Female 12:42 AM EST Gender Identity Not on file Sexual Orientation Not on file Obstetrics History Last Filed Vital Signs Vital Sign Reading Time Taken Comments Blood Pressure 142/74 10/09/2024 3:00 PM EDT Pulse 59 10/09/2024 3:00 PM EDT Temperature 36.9 C (98.4 F) 10/09/2024 3:00 PM EDT Respiratory Rate 18 10/09/2024 3:00 PM EDT Oxygen Saturation 99% 10/09/2024 3:00 PM EDT Inhaled Oxygen Concentration - - Weight 104 kg (230 lb) 12/09/2024 8:37 AM EDT Height 173.7 cm (5' 8.39 ) 12/09/2024 8:37 AM ED T Body Mass Index 34.58 12/09/2024 8:37 AM EDT Plan of Treatment Upcoming Encounters Date Type Department Care Team (Late st Contact Info) Description 03/22/2025 9:45 AM EST Office Visit Orthopedic Surgery [facility] [address] [phone] Lee Delaney DPM [address] [phone] 08/19/2025 9:30 AM EDT Appointment [facility] Radiation Oncology [address] [place] [phone] Dafne Villalpando NP [address] [place] [address] Health Maintenance Due Date Last Done Comments [...] 04/14/2022 Osteoporosis Screening (Bone Density Screening) 04/14/2022 RSV Immunization Adult Patients (1 - Risk 60-74 years 1-dose series) 2023 Depression Screening 05/05/2024 COVID-19 Vaccine (5 - Moderna risk 2023- season) 2025 02/25/2024, 05/08/2021, 07/05/2020, Additional history exists Influenza Vaccine (#1) 2025 , 02/12/2023, 02/20/2021, Additional history exists Diabetes: Blood Sugar Control Test (HGBA1C) 02/04/2025 08/05/2024, 02/25/2024, 08/11/2017 Diabetes: Annual Urine Albumin-Creatinine Ratio (uACR) 07/15/2025 07/15/2024 Social Influencers of Health Screening 10/07/2025 10/07/2024 Diabetes: Annual GFR (Glomerular Filtration Rate) 10/09/2025 10/09/2024, 10/08/2024, 10/07/2024, Additional history exists Hypertension/CHF/CAD Annual BMP Blood Test 10/09/2025 10/09/2024, 10/08/2024, 10/07/2024, Additional history exists Cholesterol Screening (Lipid Panel) [...] history exists Zoster Vaccines Completed 08/21/2021, 06/13/2021 HPV Vaccines Aged Out No longer eligi [...] Procedure Name Priority Date/Time Associated Diagnosis Comments XR FOOT 3+ VIEWS BILAT Routine 01/17/2025 11:26 AM EDT Pain INJECTION TENDON OR LIGAMENT Routine 12/09/2024 9:00 AM EDT Primary osteoarthritis of both feet INJECTION TENDON OR LIGAMENT Routine 12/09/2024 9:00 AM EDT Primary osteoarthritis of both feet BASIC METABOLIC PANEL Routine 10/09/2024 5:34 AM EDT from Last 3 Months or Most Recently Relevant to Health Maintenance Results * XR Foot 3+ Views bilat (01/17/2025 11:26 AM EDT) Anatomical Region Laterality Modality Lower Extremities, Foot Bilateral Computed Radiography Narrative 01/17/2025 12:21 PM EDT Right foot 3 views No fracture. No radiopaque foreign joint spaces Arthritis moderate severe Thickening calcaneal spurring noted Nonweightbearing films Left foot 3 views No fracture. No radiopaque foreign joint spaces Arthritis moderate severe Thickening calcaneal spurring noted Nonweightbearing films Lee Delaney DPM IMG XR PROCEDURES Final R esult * Injection tendon or ligament (12/09/2024 9:00 AM EDT) Lee Mcleod DPM - 12/09/2024 9:00 AM EDT Lee Delaney DPM 12/09/2024 12:57 PM Injection tendon or ligament Indications: pain Details: 25 G needle Medications: 0.5 mL lidocaine (PF) 1 %; 20 mg triamcinolone acetonide 40 mg/mL Informed Consent: Site: Foot ligament tendon Lee Delaney DPM IN CLINIC/BEDSIDE ORDERAB LES Final Result * Injection tendon or ligament (12/09/2024 9:00 AM EDT) Lee Mcleod DPM - 12/09/2024 9:00 AM EDT Lee Delaney DPM 12/09/2024 12:57 PM Injection tendon or ligament Indications: pain Details: 25 G needle Medications: 0.5 mL lidocaine (PF) 1 %; 20 mg triamcinolone acetonide 40 mg/mL Informed Consent: Site: Foot ligament tendon Lee Delaney DPM IN CLINIC/BEDSIDE ORDERAB LES Final Result * (ABNORMAL) Basic metabolic panel (10/09/2024 5:34 AM EDT) [facility] Sodium 140 133 - 145 mmol/L LAB CHEMISTRY METHOD 10/09/2024 7:26 AM [facility] Potassium 3.6 3.5 - 5.5 mmol/L LAB CHEMISTRY METHOD 10/09/2024 7:26 AM [facility] Chloride 112(H) 96 - 110 mmol/L LAB CHEMISTRY METHOD 10/09/2024 7:26 AM [facility] CO2 20(L) 21 - 32 mmol/L LAB CHEMISTRY METHOD 10/09/2024 7:26 AM [facility] Anion Gap 8 3 - 11 LAB CHEMISTRY METHOD 10/09/2024 7:26 AM [facility] Glucose 97 70 - 100 mg/dL LAB CHEMISTRY METHOD 10/09/2024 7:26 AM EDT [facility] BUN 13 5 - 25 mg/dL LAB CHEMISTRY METHOD 10/09/2024 7:26 AM [facility] Creatinine 1.56(H) 0.50 - 1.10 mg/dL LAB CHEMISTRY METHOD 10/09/2024 7:26 AM EDT [facility] eGFR 38(L) >=60 mL/min/1. 73m2 LAB CHEMISTRY METHOD 10/09/2024 7:26 AM EDT [facility] Comment:Calculation based on the Chronic Kidney Disease Epidemiology Collaboration (CKD-EPI) equation refit without adjustment for race. BUN/Creatinine Ratio 8.3 LAB CHEMISTRY METHOD 10/09/2024 7:26 AM [facility] Calcium 8.0(L) 8.5 - 10.5 mg/dL LAB CHEMISTRY METHOD 10/09/2024 7:26 AM EDT [facility] Blood Venous blood specimen / Unknown Venipuncture / Unknown 10/09/2024 5:34 AM EDT 10/09/2024 6:25 AM EDT Ferny Guzman MD LAB BLOOD ORDERABLES Final Re sult [facility] [address] [place] [address], from Last 3 Months or Most Recently Relevant to Health Maintenance Additional Health Concerns Infection Onset Date Last Indicated Rotavirus 10/04/2024 10/04/2024 Insurance MEDICAID - [place] Advance Directives Documents on File Type Date Recorded 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 Do not modify or discontinue any currently active code status orders. * Full Code - Default Date Activated Date Inactivated Comments 05/18/2024 6:31 [...] Healthcare Agent Relationshi p Communication Veronique Dominique [facility] Health Care Agent Salome Kate [facility] Health Care Agent Care Teams Screed Operator Relationship Specialty Start Date End Date Kalpana Baptiste MD [address] [place] [phone] PCP - General Internal Medicine 05/18/24
--- OUTSIDE RECORDS SUMMARY | 2025-01-28 13:50 | XMS_ITS | Encounter Summary ---
Author Organization [employer] Address [address] [facility] 7t [place] [address] Care Team Providers Care Surface Lay Out Technician Name Role Phone Kalpana Baptiste MD Primary Care Provide r Betsy Wray RN Unavailable [phone] Erika Saldivar Unavailable Reason for Visit * Reason Comments Med Refill Encounter Details Date Type Department Care Team (Late st Contact Info) Description 04/02/2024 Refill [facility] MED[facility] [address] [place], [place] [phone] Kalpana Baptiste MD [address] [place], [place] [phone] Primary osteoarthritis of both knees; Type 2 diabetes mellitus with other specified complication, unspecified whether salvage determiner insulin use ([facility]) Social History Tobacco Use Types Packs/Day Years [...] Description 05/03/2025 1:00 PM EST Clinical Support [facility] [address] [place] [address] Amanda Waldrop RN 06/22/2025 1:00 PM EST Office Visit [facility] ADULT DENTAL [address] [place] [address] Gloria Corey [address] [place] [address] documented as of this encounter Visit Diagnoses Diagnosis Primary osteoarthritis of both knees Type 2 diabetes mellitus with other specified complication, unspecified whether group home insulin use ([facility]) documented in this encounter Additional Health Concerns Assessment Noted Time PHQ-9 Depression Total Score: 0 08/22/19 23 10:06 AM EDT documented as of this encounter Care Teams Surface Lay Out Technician Relationship Specialty Start Date End Date Kalpana Baptiste MD [address] [place] [address] PCP - General Family Medicine 06/14/20 Betsy Wray RN [address] [place] [address] Registered Nurse Family Medicine 09/28/24 12/30/24 Erika Saldivar 09/28/24 01/10/25 documented as of this encounter
--- OUTSIDE RECORDS SUMMARY | 2025-01-28 13:50 | XMS_ITS | Encounter Summary ---
Author Organization [employer] Address [address] [facility] 7t [place] [address] Care Team Providers Care Patient Account Specialist Name Role Phone Kalpana Baptiste MD Primary Care Provide r Betsy Wray RN Unavailable [phone] Erika Saldivar Unavailable Reason for Visit * Reason Comments Med Refill Encounter Details Date Type Department Care Team (Late st Contact Info) Description 05/15/2023 Refill [facility] MED[facility] [address] [place], [place] [phone] Marilyn Corral MD [address] [place], [place] [phone] Type 2 diabetes mellitus with other specified complication, unspecified whether custodial insulin use ([facility]) Social History Tobacco Use Types Packs/Day Years [...] 05/03/2025 1:00 PM EST Clinical Support [facility] [address] [place] [address] Amanda Waldrop RN 06/22/2025 1:00 PM EST Office Visit [facility] ADULT DENTAL [address] [place] [address] Gloria Corey [address] [place] [address] documented as of this encounter Visit Diagnoses Diagnosis Type 2 diabetes mellitus with other specified complication, unspecified whether 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
--- OUTSIDE RECORDS SUMMARY | 2025-01-28 13:50 | XMS_ITS | Encounter Summary ---
Author Organization [employer] Address [address] [facility] 7t [place] [address] Care Team Providers Care Woodworker Helper Name Role Phone Kalpana Baptiste MD Primary Care Provide r Betsy Wray RN Unavailable [phone] Erika Saldivar Unavailable Reason for Visit * Reason Comments Med Refill Encounter Details Date Type Department Care Team (Late st Contact Info) Description 05/14/2023 Refill [facility] [address] [place], [place] [phone] Marilyn Corral MD [address] [place], [place] [phone] Type 2 diabetes mellitus with other specified complication, unspecified whether mcc insulin use (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) documented in this encounter Additional Health Concerns Assessment Noted Time PHQ-9 Depression Total Score: 0 08/22/19 23 10:06 AM EDT documented as of this encounter Care Teams Woodworker Helper Relationship Specialty Start Date End Date Kalpana Baptiste MD [address] [place] [address] PCP - General Family Medicine 06/14/20 Betsy Wray RN [address] [place] [address] Registered Nurse Family Medicine 09/28/24 12/30/24 Erika Saldivar 09/28/24 01/10/25 documented as of this encounter
--- OUTSIDE RECORDS SUMMARY | 2025-01-28 13:50 | XMS_ITS | Encounter Summary ---
Author Organization [employer] Address [address] [facility] 7t [place] [address] Care Team Providers Care Value Analyst Name Role Phone Kalpana Baptiste MD Primary Care Provide r Betsy Wray RN Unavailable [phone] Erika Saldivar Unavailable Reason for Visit * Reason Comments Med Refill Encounter Details Date Type Department Care Team ([facility] Contact Info) Description 06/01/2022 Refill [facility] PEDS [address] [place] [address] Neida Garrett DO [address] [place] [address] Social History Tobacco Use Types Packs/Day Years [...] Upcoming Encounters Date Type Department Care Team ([facility] Contact Info) Description 05/03/2025 1:00 PM EST Clinical Support [facility] MEDICINE [address] [place] [address] Amanda Waldrop, NEGAR 06/22/2025 1:00 PM EST Office Visit [facility] ADULT DENTAL [address] [place], [place] [phone] Gloria Corey [address] [place] [address] documented as of this encounter Visit Diagnoses Not on filedocumented in this encounter Care Teams Value Analyst Relationship Specialty Start Date End Date Kalpana Baptiste MD [address] [place] [phone] PCP - General Family Medicine 06/14/20 Betsy Wray, NEGAR [address] [place] [phone] Registered Nurse Family Medicine 09/28/24 12/30/24 Erika Saldivar 09/28/24 01/10/25 documented as of this encounter
--- OUTSIDE RECORDS SUMMARY | 2025-01-28 13:50 | XMS_ITS | Clinical Summary ---
Author Organization [employer] Address [address] [facility] [address] [place] [address] Care Team Providers Care Material Mover Name Role Phone Kalpana Baptiste MD Primary Care Provide r Allergies Active Allergy Reactions Criticality Noted Date Comments Aspirin Rash High Other reaction(s): Flushing, Other (see comments), unspecified Other reaction(s): SWELLING/ITCHING, rash Other Reaction(s): itching Penicillins Angioedema,Itching,Rash High Other reaction(s): Flushing, Other (see comments), unspecified Other Reaction(s): itching Vancomycin High 05/16/2021 Other reaction(s): Rash, Rash 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 Active cyanocobalamin (Vitamin B-12) 1000 MCG/ML injection Inject 1 mL into the muscle. Active fluticasone (Flovent HFA) 110 MCG/ACT inhaler Inhale 1 puff every 12 (twelve) hours. Active ketotifen (Alaway) 0.025 % ophthalmic solution Administer 1 drop into affected eye(s) every 12 (twelve) hours. Active ruxolitinib (Jakafi) 5 MG chemo tablet Take 5 mg by mouth. Active tolterodine LA (Detrol LA) 4 MG 24 hr capsuleIndication s:Overactive bladder Take 1 capsule (4 mg) by mouth in the morning. 90 capsule 1 023 Active melatonin 3 MG tablet TAKE 1 TABLET BY MOUTH EVERY DAY AT BEDTIME FOR SLEEP Active dicyclomine (Bentyl) 20 MG tablet Active ondansetron ODT (Zofran-ODT) 4 MG disintegrating tablet Active Blood Glucose Monitoring Suppl (FreeStyle [place] Lite) w/Device kitIndications:Ty pe 2 diabetes mellitus with stage 3 chronic kidney disease, without long-term current use of insulin, unspecified whether stage 3a or 3b CKD ([facility]) Use to test blood sugar 2 times daily 1 kit Active polyvinyl alcohol (Liquifilm Tears) 1.4 % ophthalmic solutionIndicatio ns:Dry eyes one drop in each eye at least 2 times a day, more if burning 15 mL 1 Active dextran 70-hypromellose PF (GenTeal Tears Moderate PF) 0.1-0.3 % ophthalmic solutionIndicatio ns:Dry eyes INSTILL ONE DROP IN EACH EYE THREE TIMES A DAY (MORNING, NOON, AND BEDTIME) NEEDED (BULK) 36 each Active fluticasone (Flonase) 50 MCG/ACT nasal spray USE 2 SPRAYS IN EACH NOSTRIL EVERY MORNING NEEDED (BULK) 48 g 3 Active pravastatin (Pravachol) 40 MG tabletIndications :Other hyperlipidemia TAKE ONE TABLET BY MOUTH AT BEDTIME (VIAL) 30 tablet 11 Active Neomycin-Polymyxi n-HC 1 % solutionIndicatio ns:Chronic otitis externa of left ear, unspecified type Administer 3 drops into affected ear(s) 4 times daily. 10 mL Active Additional Information Patient not taking.Reported on 10/26/2024 Alcohol Swabs (Easy Touch Alcohol Prep Medium) 70 % pads USE 1 SWAB ONCE DAILY (BULK) 100 each Active FREESTYLE LITE test strip USE TO TEST BLOOD SUGAR ONCE DAILY AND DIRECTED (BULK) 50 strip Active metFORMIN (Glucophage) 500 MG tabletIndications :Type 2 diabetes mellitus with other specified complication, unspecified whether penitentiary insulin use ([facility]) TAKE ONE TABLET BY MOUTH TWICE A DAY WITH MEALS 56 tablet 11 12/10/2 024 Active losartan (Cozaar) 25 MG tabletIndications :Primary hypertension Take 1 tablet (25 mg) by mouth Once per day. 30 tablet 025 2025 Active hydroCHLOROthiazi de 12.5 MG tabletIndications :Primary hypertension Take 1 tablet (12.5 mg) by mouth Once per day. 30 tablet 025 2025 Active cholecalciferol (Vitamin D-3) 25 MCG (1000 UT) capsule Take 1 capsule (25 mcg) by mouth Once per day. TAKE 1 CAPSULE BY MOUTH ONCE A DAY (VIAL) 30 capsule 025 Active FreeStyle lancetsIndication s:Type 2 diabetes mellitus with stage 3 chronic kidney disease, without long-term current use of insulin, unspecified whether stage 3a or 3b CKD ([facility]) USE 1 LANCET TWO TIMES A DAY (BULK) 100 each 025 Active oxyCODONE (Roxicodone) 5 MG immediate release tablet Take 1 tablet by mouth every 6 (six) hours if needed for severe pain. 025 Active pantoprazole (ProtoNix) 40 MG EC tabletIndications :Indigestion TAKE 1 TABLET BY MOUTH ONCE DAILY (VIAL) 30 tablet 025 Active naloxone (Narcan) 4 mg/0.1 mL nasal spray ADMINISTER 1 SPRAY INTO AFFECTED NOSTRIL NEEDED FOR OPIOID REVERSAL (BULK) 2 each 2 Active albuterol (2.5 MG/3ML) 0.083% nebulizer solution INHALE THE CONTENTS OF 1 VIAL VIA NEBULIZER THREE TIMES A DAY DIRECTED (BULK) 75 mL 025 Active colchicine 0.6 MG tabletIndications :Chronic gout of multiple sites, unspecified cause TAKE ONE TABLET BY MOUTH EVERY MORNING (VIAL) 28 tablet 025 Active loratadine (Claritin) 10 MG tabletIndications :Allergic rhinitis, unspecified seasonality, unspecified trigger TAKE ONE TABLET BY MOUTH EVERY MORNING (VIAL) 30 tablet 025 Active albuterol (Ventolin HFA) 108 (90 Base) MCG/ACT inhalerIndication s:Moderate persistent asthma without complication INHALE TWO PUFFS BY MOUTH EVERY 6 HOURS NEEDED FOR SHORTNESS OF BREATH OR WHEEZING (BULK) 18 g 11 025 Active sucralfate (Carafate) 1 g tabletIndications :Heartburn TAKE ONE TABLET BY MOUTH THREE TIMES A DAY, BEFORE BREAKFAST, BEFORE LUNCH, AND BEFORE DINNER (VIAL) 90 tablet 5 025 Active Acetaminophen Extra Strength 500 MG tabletIndications :Chronic tension-type headache, not intractable TAKE ONE TO TWO TABLETS BY MOUTH THREE TIMES A DAY NEEDED . MAXIMUM DAILY DOSE OF 6 TABLETS / 24 HOURS. (VIAL) 100 tablet 1 025 Active lidocaine (Lidoderm) 5 % patchIndications: Chronic bilateral low back pain, unspecified whether sciatica present APPLY 1 PATCH TOPICALLY ONCE PER DAY. REMOVE & DISCARD PATCH WITHIN 12 HOURS OR DIRECTED BY MD. (BULK) 30 patch 1 025 Active traMADol (Ultram) 50 MG tabletIndications :Primary osteoarthritis of both knees Take 1 tablet (50 mg) by mouth every 6 (six) hours if needed for severe pain for up to 28 days. Do not start before January 19, 2025. 112 tablet 025 2024 Active amLODIPine (Norvasc) 10 MG tabletIndications :Primary hypertension TAKE ONE TABLET BY MOUTH EVERY DAY (VIAL) 90 tablet 1 025 Active Tirzepatide (Mounjaro) 2.5 MG/0.5ML solution auto-injectorIndi cations:Type 2 diabetes mellitus with stage 3 chronic kidney disease, without long-term current use of insulin, unspecified whether stage 3a or 3b CKD ([facility]) Inject 2.5 mg under the skin 1 (one) time per week. 2 mL 2 025 Active mirtazapine (Remeron) 15 MG tablet Take 1 tablet by mouth at bed time. 022 2023 Discontinued(D uplicate order (will not trigger notification to Pharmacy)) amLODIPine (Norvasc) 10 MG tabletIndications :Primary hypertension Take 1 tablet (10 mg) by mouth Once per day. 30 tablet 3 025 2024 Discontinued lidocaine (Lidoderm) 5 % patchIndications: Chronic bilateral low back pain, unspecified whether sciatica present Apply 1 patch topically Once per day. Remove & discard patch within 12 hours or as directed by . 30 patch 1 025 2024 Discontinued Acetaminophen Extra Strength 500 MG tabletIndications :Chronic tension-type headache, not intractable TAKE ONE TO TWO TABLETS BY MOUTH THREE TIMES A DAY NEEDED . MAXIMUM DAILY DOSE OF 6 TABLETS / 24 HOURS. (VIAL) 100 tablet 1 025 2024 Discontinued traMADol (Ultram) 50 MG tabletIndications :Primary osteoarthritis of both knees Take 1 tablet (50 mg) by mouth every 6 (six) hours if needed for severe pain for up to 28 days. 112 tablet 025 2024 Discontinued(R eorder (will not trigger notification to Pharmacy)) Active Problems Problem Noted Date Diagnosed Date Long-term current use of opiate analgesic 2024 Anxiety 10/26/2024 Chronic kidney disease, stage 3 10/26/2024 Encounter for screening colonoscopy 10/26/2024 Depression 10/26/2024 Calculus of kidney 10/26/2024 Diabetes 10/26/2024 Gastroenteritis and colitis, viral 10/09/2024 Rotavirus enteritis 10/09/2024 Fqlgm-fr-[id number] kidney injury 10/09/2024 Acute metabolic acidosis 10/04/2024 Migraines 08/13/2024 Osteoporosis 08/13/2024 Myelodysplastic syndrome 08/13/2024 Influenza A 08/05/2024 Assessment & Plan (08/05/2024 2:47 PM EDT): Advised to drink plenty of fluids and rest Acetaminophen as needed I prescribed for patient cough syrup as needed Mixed conductive and sensorineural hearing loss of left ear 06/07/2024 Other specified disorders of tympanic membrane, unspecified ear 06/07/2024 Disorder of left eustachian tube 06/07/2024 Elevated LFTs 05/06/2024 Right wrist pain 02/25/2024 Left otitis externa 02/25/2024 Urinary incontinence, mixed 02/25/2024 Assessment & Plan (10/26/2024 4:25 PM EDT): Pads will be prescribed for patient Assessment & Plan (02/25/2024 4:30 PM EDT): [...] 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 Assessment & Plan (10/26/2024 4:25 PM EDT): Continue to be followed by specialist Assessment & Plan (02/25/2024 4:30 PM EDT): [...] injury 12/16/2022 Urinary tract infectious disease 12/16/2022 Urinary tract infection 12/16/2022 Health care maintenance 08/21/2022 Assessment & [...] Chronic gouty arthritis 05/14/2022 Assessment & Plan (10/26/2024 4:26 PM EDT): Bariatric shower chair will be prescribed Roller walker with seat and brakes will be prescribed Continue with pain meds as needed Assessment & Plan (08/21/2022 11:04 AM EDT): [...] renewed, she will be call for her MACHINE ENGINEER appointment Steatosis of liver 05/14/2022 CKD stage 3 due to type 2 diabetes mellitus 01/05 Diabetic nephropathy 02/01/2021 Proteinuria 02/01/2021 Diabetic nephropathy associa nick with type 2 diabetes mellitus 02/01/2021 Vitamin D deficiency 03/20/2017 Moderate persistent asthma with acute exacerbati on 06/01/2015 Assessment & Plan (02/25/2024 4:27 PM EDT): Stable c/w same interventions Moderate persistent asthma 06/01/2015 Type 2 diabetes mellitus 03/29/2015 Overview (12/16/2022): Last Assessment & Plan: Today A1c 6.7 Lab Results Component Value Date CREATININE 1.91 (H) 08/17/2022 - Diabetic eye exam: referral to eye care today - Diabetic foot exam: done today - Continue lifestyle modifications - Continue current medications Assessment & Plan (10/26/2024 4:25 PM EDT): Diabetes is: controlled - Lab Results Component Value Date HGBA1C 5.1 08/05/2024 HGBA1C 6.0 02/25/2024 HGBA1C 5.7 11/25/2023 - Lab Results Component Value Date MICROALBUR 900.0 09/05/2022 CREATININE 1.85 (H) 09/26/2024 -Changes: None - Diabetic eye exam: Up-to-date - Diabetic foot exam: Pending - Continue lifestyle modifications - Continue current medications - Follow up: 3 months Assessment & Plan (08/05/2024 2:46 PM EDT): [...] ordered Acute pharyngitis 12/29/2013 Cough 06/16/2013 Chronic swyxn-cdrdrv-tfuw disease 05/19/2013 Headache 03/24/2013 Dysuria 12/30/2012 Abdominal pain, epigastric 10/29/2012 Status post bone marrow transplant 08/27/2012 Anxiety disorder 06/24/2012 Major depressive disorder, single episode 2012 Low back pain 06/03/2012 Lower back pain 06/03/2012 Splenomegaly 05/13/2012 Spleen enlargement 05/13/2012 Asthma 03/06/2012 Assessment & Plan (08/05/2024 2:47 PM EDT): Patient today has some aphthous ulceration likely triggered by her influenza A I will prescribe for her short course of prednisone and also advised to use albuterol as needed (every 6 hours) High cholesterol 03/06/2012 Myelofibrosis 03/06/2012 Assessment & Plan (10/26/2024 4:25 PM EDT): Continue to be followed by specialist Assessment & Plan (02/25/2024 4:30 PM EDT): [...] Encounters Date Type Department Care Team Description 01/28/2025 11:00 AM EDT Office Visit [facility] MED[facility] [address] [place] [address] Kalpana Baptiste MD CKD stage 3 due to type 2 diabetes mellitus ([facility]) (Primary Dx); Type 2 diabetes mellitus with stage 3 chronic kidney disease, without long-term current use of insulin, unspecified whether stage 3a or 3b CKD ([facility]); Encounter for immunization 01/28/2025 Orders Only GENERIC EXTERNAL DATA DEPARTMENT Provider, Generic External Data 01/28/2025 Travel 01/26/2025 2:00 PM EDT Clinical Support [facility] [address] [place] [address] Amanda Waldrop RN Long-term current use of opiate analgesic (Primary Dx) 01/26/2025 Travel 01/26/2025 Telephone [facility] [address] [place] [address] Kalpana Baptiste MD chart prep 01/19/2025 Refill [facility] [address] [place] [address] Kalpana Baptiste MD Primary hypertension 01/17/2025 Refill [facility] [address] [place] [address] Kalpana Baptiste MD Primary osteoarthritis of both knees 01/14/2025 Refill [facility] [address] [place] [address] Kalpana Baptiste MD Primary osteoarthritis of both knees 01/14/2025 Telephone [facility] MED[facility]INE [address] [place] [phone] Kalpana Baptiste MD PT1 01/14/2025 Telephone [facility] [address] [place] [phone] Kalpana Baptiste MD Med Refill 01/13/2025 Refill [facility] [address] [place] [phone] Kalpana Baptiste MD Primary osteoarthritis of both knees 01/12/2025 Refill [facility] [address] [place] [phone] Kalpana Baptiste MD Chronic tension-type headache, not intractable; Primary osteoarthritis of both knees; Chronic bilateral low back pain, unspecified whether sciatica present 01/10/2025 Patient Outreach [facility] [address] [place] [phone] Kalpana Baptiste MD Care Coordination ([facility] Erika Saldivar [facility] f/u, program graduation) 12/30/2024 Patient Outreach [facility] [address] [place] [phone] Kalpana Baptiste MD Care Coordination ([facility] f/u call- program graduation) 12/29/2024 Refill [facility] [address] [place] [phone] Kalpana Baptiste MD Chronic bilateral low back pain, unspecified whether sciatica present 12/27/2024 Patient Outreach [facility] [address] [place] [phone] Kalpana Baptiste MD Care Coordination ([facility] Erika Saldivar, appt reminder & transportation ) 12/23/2024 Refill [facility] [address] [place] [phone] Kalpana Baptiste MD Primary osteoarthritis of both knees 12/22/2024 Refill [facility] [address] [place] [phone] Kalpana Baptiste MD Chronic tension-type headache, not intractable 12/21/2024 Refill [facility] [address] [place] [address] Kalpana Baptiste MD Primary osteoarthritis of both knees 12/21/2024 Refill [facility] [address] [place] [phone] Kalpana Baptiste MD Chronic gout of multiple sites, unspecified cause; Allergic rhinitis, unspecified seasonality, unspecified trigger; Moderate persistent asthma without complication; Heartburn 12/20/2024 Patient Outreach [facility] MED[facility]INE [address] [place] [phone] Kalpana Baptiste MD Care Coordination ([facility]/W Erika Saldivar [facility] f/u, transportation) 12/20/2024 Patient Outreach [facility] [address] [place] [phone] Kalpana Baptiste MD Care Management ([facility]- f/u call) 12/07/2024 Telephone [facility] MED[facility]INE [address] [place] [phone] Kalpana Baptiste MD Med Refill 12/06/2024 Refill [facility] [address] [place] [phone] Kalpana Baptiste MD Chronic tension-type headache, not intractable 12/03/2024 Orders Only [facility] [address] [place] [phone] Kalpana Baptiste MD Chronic bilateral low back pain, unspecified whether sciatica present (Primary Dx) 12/02/2024 Patient Outreach [facility] [address] [place] [phone] Kalpana Baptiste MD 11/24/2024 Refill [facility] [address] [place] [phone] Kalpana Baptiste MD Abdominal pain, epigastric; Heartburn; Chronic gout of multiple sites, unspecified cause; Primary osteoarthritis of both knees; Allergic rhinitis, unspecified seasonality, unspecified trigger; Moderate persistent asthma without complication 11/16/2024 Refill [facility] [address] [place] [phone] Kalpana Baptiste MD Primary osteoarthritis of both knees 11/16/[address] [address] Kalpana Baptiste MD Med Refill 11/16/[address] [phone] Kalpana Baptiste MD Primary osteoarthritis of both knees; Indigestion 11/16/2024 Patient Outreach [address] [address] Kalpana Baptiste MD Care Coordination ([facility]/W Michael Wilksoh f/u call_lvm) 11/16/2024 Patient Outreach [facility] MED & PEDS [address] [place] [phone] Kalpana Baptiste MD Care Coordination ([facility] f/u call- LVM) 11/09/2024 Patient Outreach [address] [phone] Kalpana Baptiste MD Care Coordination ([facility]/Allegra Saldivar, Appt reminder_lvm ) 11/08/2024 Patient Outreach [facility] MED [facility] PEDS [address] [place] [phone] Kalpana Baptiste MD 11/04/2024 Patient Outreach [address] [phone] Kalpana Baptiste MD Care Coordination ([facility]/Allegra Saldivar, Sdoh f/u) 11/01/2024 1:30 PM EDT Clinical Support [address] [phone] Amanda Waldrop RN Long-term current use of opiate analgesic (Primary Dx) 11/01/[address] [phone] Amanda Waldrop RN MACHINE ENGINEER Renewal today 11/01/2024 Travel 11/01/2024 Patient Outreach [facility] MED & PEDS [address] [place] [address] [place] [address] Kalpana Baptiste MD Care Coordination ([facility] f/u call) 10/29/2024 Patient Outreach [facility] MED & PEDS [address] [place] [address] Kalpana Baptiste MD from Last 3 Months Immunizations Immunization Administration [...] 01/09/2012 Influenza, seasonal, injecta ble, preservative free 01/28/2025,02/04/2024,03/24/2016,01/26 MMR 12/24/2000,02/06/2000 Meningococcal MCV4P ACYW-135 08/09/2013 Moderna Covid-19 Vaccine 12+ 05/08/2021,07/06/19 21,06/06/2020 Pfizer Covid-19 Vaccine 12+ 02/25/2024 Pneumococcal Conjugate PCV 13 03/24/2016 Pneumococcal Conjugate PCV 20 01/28/2025 Pneumococcal Polysaccharide PPSV23 03/24,08/10/2014,08/09/2013,07/08,01/17/2009 Pneumococcal, Unspecified 01/17/2009 [...] Mass Index 35.87 01/28/2025 11:08 AM EDT Plan of Treatment Upcoming Encounters Date Type Department Care Team (Late st Contact Info) Description 05/03/2025 1:00 PM EST Clinical Support [facility] [address] [place] [address] Amanda Waldrop, RN 06/22/2025 1:00 PM EST Office Visit [facility] ADULT DENTAL [address], [place] [phone] Gloria Corey [address] [place] [address] Health Maintenance Due Date Last Done Comments CT Colonography 1963 FIT DNA/Cologuard 1963 FIT 1963 FOBT 1963 Sigmoidoscopy 1963 Disability Screening 1963 Pap Smear 1984 HPV/Cotest 1993 Hepatitis A Vaccines (2 of 2 - Risk 2-dose series) 04/15/2019 10/14/2018 Colonoscopy 07/05/2020 07/06/2015 Colorectal Cancer Screening 07/05/2020 Dental Oral Exam 12/30/2022 07/01/2022 Dental Prophylaxis 12/30/2022 07/01/2022 RSV Patients and Patients Aged 60 years or older (1 - Risk 60-74 years 1-dose series) 2023 Diabetes: Foot Exam 08/22/2023 08/21/2022, Lipid Panel 08/20/2024 08/21/2023, 07/03, 02/20/2021 Dental X-Ray: Bitewings 12/18/2024 12/18/2023, 07/01 COVID-19 Vaccine (5 - Moderna risk 2023- season) 2025 02/25/2024, 05/08/2021, 07/05/2020, Additional history exists Diabetes: Hemoglobin A1C 02/04/2025 025, 02/25/2024, 11/25/2023, Additional history exists Dental X-Ray: Full Mouth 07/02/2025 07/01/2022 Mammogram 09/01/2025 09/01/2024, 08/04, 08/21/2022, Additional history exists Depression Screening 10/15/2025 10/15/2024, 10/16/19 25 SDOH Screening 10/15/2025 10/15/2024 Alcohol/Substance Use Screening 10/26/2025 10/26/2024 Tobacco Screening 01/28/2026 01/28/2025 Eye Exam 06/22/2026 06/22/2024, 06/05, 06/22/2024, Additional history exists DTaP/Tdap/Td Vaccines (6 - Td or Tdap) 01/18/2029 01/18/2019, 08/10/2014, 12/01/2013, Additional history exists HIV Screening Completed 08/09/2013 Meningococcal Vaccine Aged Out 08/09/2013 No nuno juvenal eligible based on patient's age to complete this topic HIB Vaccines Aged Out 08/10/2014, 11/04, 08/09/2013 No longer eligible based on patient's age to complete this topic IPV Vaccines Completed 08/10/2014, 11/04, 08/09/2013 Hepatitis B Vaccines Completed 11/15/2014, 08/10/2014, 12/01/2013, Additional history exists Zoster Vaccines Completed 08/21/2021, 08/03, 06/13/2021, Additional history exists Hepatitis C Screening Completed 07/09/2024, 021 Influenza Vaccine Completed 01/28/2025, , 02/12/2023, Additional history exists Pneumococcal Vaccine: 50+ Years Completed 01/28/2025, 03/24/2016, 03/24/2016, Additional history exists Cervical Cancer Screening Discontinued [...] AUTO DIFFERENTIAL Routine 01/28/2025 12:11 PM EDT POCT GLUCOSE Routine 01/28/2025 11:42 AM EDT Type 2 diabetes mellitus with stage 3 chronic kidney disease, without long-term current use of insulin, unspecified whether stage 3a or 3b CKD ([facility]) POCT MARY-14 URINE DRUG SCREEN Routine 01/26/2025 2:23 PM EDT Long-term current use of opiate analgesic POCT MARY-14 URINE DRUG SCREEN Routine 11/01/2024 1:32 PM EDT Long-term current use of opiate analgesic BI MAMMOGRAM SCREENING TOMOSYNTHESIS BILATERAL Routine 09/01/2024 1:30 PM EDT POCT GLYCATED HEMOGLOBIN, TOTAL Routine 08/05/2024 1:00 PM EDT Type 2 diabetes mellitus with stage 3 chronic kidney disease, without long-term current use of insulin, unspecified whether stage 3a or 3b CKD (CMS/HCC) HEPATITIS PANEL, GENERAL Routine 07/09/2024 9:57 AM EST Elevated LFTs BITEWING - SINGLE RADIOGRAPHIC IMAGE Routine 12/18/2023 11:00 AM EDT Full coverage crown needed for root canal-treated tooth LIPID PANEL, STANDARD Routine 08/21/2023 1:45 PM [...] Relevant to Health Maintenance Results * (ABNORMAL) CBC auto differential (01/28/2025 12:11 PM EDT) White Blood Count 4.6(L) 4.8 - 10.8 X10*3/uL [facility] Red Blood Count 3.30(L) 4.20 - 5.50 X10*6/uL [facility] Hemoglobin 10.0(L) 12.0 - 16.0 g/dl [facility] Hematocrit 30.2(L) 37.0 - 47.0 % [facility] Mean Corpuscular Volume 91.5 80.0 - 98.0 fL [facility] Mean Corpuscular Hemoglobin 30.3 27.0 - 33.0 pg [facility] Mean Corpuscular HGB Conc 33.1 31.0 - 35.0 g/dl [facility] Red Cell Distribution Width 13.5 11.0 - 16.0 % [facility] Platelet Count 229 160 - 400 X10*3/uL [facility] Mean Platelet Volume 9.7 9.4 - 12.3 fL [facility] Neutrophils Percent Auto 46.1 45 - 73 % [facility] Imm Gran Pct Auto 0.4 0.0 - 0.4 % [facility] Lymphocytes Percent Auto 42.2(H) 20 - 40 % [facility] Monocytes Percent Auto 9.6 2 - 11 % [facility] Eosinophils Percent Auto 1.5 0 - 4 % [facility] Basophils Percent Auto 0.2 0 - 2 % [facility] NRBC Pct Auto 0.0 0.0 - 0.2 /100WBC [facility] Neutrophils Absolute Auto 2.1 2.0 - 8.3 x10*3/uL [facility] Imm Gran Abs Auto 0.02 0.00 - 0.03 X10*3/uL [facility] Lymphocytes Absolute Auto 1.9 1.2 - 4.9 X10*3/uL [facility] Monocytes Absolute Auto 0.4 0.1 - 1.2 X10*3/uL [facility] Eosinophils Absolute Auto 0.1 0.0 - 0.4 X10*3/uL [facility] Basophils Absolute Auto 0.0 0.0 - 0.2 X10*3/uL [facility] NRBC Abs Auto 0.000 0.0 - 0.012 X10*3/uL [facility] 01/28/2025 12:1 1 PM EDT 01/28/2025 12:58 PM EDT us Generic External Data Provider LAB BLOOD ORDERAB LES Final Result [facility] [address] [place] [address] [phone] * POCT Glucose (01/28/2025 11:42 AM EDT) Glucose Blood, POC 102 60 - 200 mg/dL QC Media Lot # [id number] Lot# Expiration Date Blood Capillary blood specimen / Unknown 01/28/2025 11:42 AM EDT us Kalpana Steele MD POINT OF CARE TEST EN TER/EDIT ORDERABLES Final Result * POCT MARY-14 Urine Drug Screen (01/26/2025 2:23 PM EDT) Only the most recent of2 resultswithin the time period is included. THC Negative Negative Cocaine Screen, Urine Negative [...] procedure / Unknown 01/26/2025 2:23 PM EDT Narrative Amanda Waldrop RN - 01/26/2025 2:23 PM EDT UTOX cup Lot#[id number] Exp. 02/08/26 Internal Pass Control us Kalpana Steele MD POINT OF CARE TEST EN TER/EDIT ORDERABLES Final Result * BI Mammogram Screening Tomosynthesis Bilateral (09/01/2024 1:30 PM EDT) Anatomical Region Laterality Modality Breast Bilateral Mammography 09/01/2024 1:30 PM EDT Narrative 09/07/2024 8:43 AM EDT [facility] [address] [place] [address] Mammography Report Signed Patient: Santa Kate MR#: [id number] 74 : 1965 Acct:[id number] Age/Sex: 59 / F ADM Date: 09/01/24 Loc: HO.MAMMO Attending Dr: Kalpana Steele MD Ordering Physician: Kalpana Baptiste MD Results: 2Benign Findings Date of Service: 09/01/24 Follow Up: 1 Year From Orig inal Mammogram Procedure(s): MM tomosynthesis screening BI Accession Number(s): [id number] cc: Kalpana Baptiste MD EXAMINATION: MM SCREENING DIGITAL BREAST TOMOSYNTHESIS, BILATERAL CLINICAL INFORMATION: Screening. Asymptomatic. COMPARISON: Mammography: Comparison is made with available priors TECHNIQUE: Digital breast mammography with tomosynthesis is performed in both the craniocaudal and mediolateral oblique views along with computer-aided detection (CAD). FINDINGS: There are scattered areas of fibroglandular density (ACR BI-RADS breast composition Category b). Bilateral reduction mammoplasty. There are no significant masses, abnormal calcifications, or other abnormalities. MM/MM tomosynthesis screening BI IMPRESSION: No mammographic evidence of malignancy. ASSESSMENT: BI-RADS BI-RADS 2 - Benign Findings RECOMMENDATION: Routine annual mammography screening. 1 year F/U This examination should not preclude the clinical evaluation of a suspicious palpable abnormality. This patient's information was entered into a reminder system with a target due date for their next mammogram. Electronically signed by: Tenisha Gutierrez DO 09/07/2024 08:41 AM EDT Dictated By: Tenisha Gutierrez DO Signed By: <Electronically signed by Tenisha Gutierrez DO in OV> 09/07/24 0841 DD/ 1330 TD/TT: 09/01/[address] Commissioner: Procedure Note Donotuseinterpreter, Image - 09/07/2024 [facility] [address] [place] [address] Mammography Report Signed Patient: Damian Kate#: [id number] 74 : 1965Acct:[id number] Age/Sex: 59 / FADM Date: 09/01/24 Loc: HO.MAMMO Attending Dr: Kalpana Steele MD Ordering Physician: Kalpana Baptiste MDResults: 2Benign Findings Date of Service: 09/01/24Follow Up: 1 Year From Orig inal Mammogram Procedure(s): MM tomosynthesis screening BI Accession Number(s): [id number] cc: Kalpana Baptiste MD EXAMINATION: MM SCREENING DIGITAL BREAST TOMOSYNTHESIS, BILATERAL CLINICAL INFORMATION: Screening. Asymptomatic. COMPARISON: Mammography: Comparison is made with available priors TECHNIQUE: Digital breast mammography with tomosynthesis is performed in both the craniocaudal and mediolateral oblique views along with computer-aided detection (CAD). FINDINGS: There are scattered areas of fibroglandular density (ACR BI-RADS breast composition Category b). Bilateral reduction mammoplasty. There are no significant masses, abnormal calcifications, or other abnormalities. MM/MM tomosynthesis screening BI IMPRESSION: No mammographic evidence of malignancy. ASSESSMENT: BI-RADS BI-RADS 2 - Benign Findings RECOMMENDATION: Routine annual mammography screening. 1 year F/U This examination should not preclude the clinical evaluation of a suspicious palpable abnormality. This patient's information was entered into a reminder system with a target due date for their next mammogram. Electronically signed by: Tenisha Gutierrez DO 09/07/2024 08:41 AM EDT Dictated By: Tenisha Gutierrez DO Signed By: <Electronically signed by Tenisha Gutierrez DO in OV> 09/07/24 0841 DD/ 1330 TD/TT: 09/01/[address] Commissioner: Kalpana Stelee MD IMG BI PROCEDURES Fin al Result * POCT HGB A1C (08/05/2024 1:00 PM EDT) Hemoglobin A1C 5.1 4.0 - 6.0 % QC Media Lot # [id number] Lot# Expiration Date Blood 08/05/2024 1:00 PM EDT Kalpana Steele MD POINT OF CARE TEST EN TER/EDIT ORDERABLES Final Result * Hepatitis A,B,C Profile (07/09/2024 9:57 AM EST) Hepatitis A IgM Nonreactive Nonreactive [facility] Comment:IgM antibodies to LUCIANO V not detected; does not exclude earlyacute or recovered HAV infection. ~Hepatitis B Surface Antibody NONREACTIVE Nonreactive [facility] Comment:Nonreactive: < 8.00 mIU/mL Hepatitis B Core Antibody Nonreactive Nonreactive [facility] Hepatitis C Antibody Nonreactive Nonreactive [facility] Comment:Antibodies to HCV no t detected; does not exclude early acuteHCV infection. Hepatitis B Surface Ag Negative Negative [facility] Blood Venous blood specimen / Unknown 07/09/2024 9:57 AM EST 07/09/2024 9:57 AM EST Kalpana Steele MD LAB BLOOD ORDERABLES Final Result [facility] [address] [place] [address] [phone] * (ABNORMAL) Lipid Panel, Standard (08/21/2023 1:45 PM EDT) Triglycerides 552(H) <150 mg/dL [facility] Comment:Desirable Triglyceri de: less than 150 mg/dLBorderline High Triglyceride 150-199 mg/dLHigh Triglyceride: 200-499 mg/dLVery High Triglyceride: greater than or equal to 5OO mg/dL Cholesterol 268(H) <200 mg/dL [facility] Comment:Desirable Cholestero l: less than 200 mg/dLBorderline High Cholesterol: 200-239 mg/dLHigh Cholesterol: greater than 239 mg/dL LDL Cholesterol Calculated TNP <100 mg/dL [facility] Comment:Unable to calculate the LDL. The formula of Friedwald,Stock, and Mendoza is only valid if the triglycerides areless than 400 mg/dl. HDL Cholesterol 50 >40 mg/dL [facility] Comment:Desirable HDL: great er than 40 mg/dL Note: This HDL assay may give artificially low results in patients with liver disease. Blood Venous blood specimen / Unknown 08/21/2023 1:45 PM EDT 08/21/2023 3:52 PM EDT us Kalpana Steele MD LAB BLOOD ORDERABLES Final Result [facility] [address] [place] [address] [phone] * Colonoscopy (07/06/2015) Colonoscopy Normal Normal Narrative Therese Brown - 07/06/2015 Recommended 5 year follow up Historical Provider HEALTH MAINTENANCE Final Result from Last 3 Months or Most Recently Relevant to Health Maintenance Insurance [facility] MEDICAID STAND ADULT Care Teams Material Mover Relationship Specialty Start Date End Date Kalpana Baptiste MD [address] [place] [address] PCP - General Family Medicine 06/14/20
--- OUTSIDE RECORDS SUMMARY | 2025-01-28 13:50 | XMS_ITS | Encounter Summary ---
Author Organization [employer] Address [address] 7[address] [place] [address] Care Team Providers Care Blow Pit Operator Name Role Phone Kalpana Baptiste MD Primary Care Provide r Betsy Wray RN Unavailable [phone] Erika Saldivar Unavailable Reason for Visit * Reason Comments Med Refill Encounter Details Date Type Department Care Team (Late st Contact Info) Description 03/29/2024 Refill [facility] MEDICINE [address] [place], [place] [phone] Kalpana Baptiste MD [address] [place], [place] [phone] Type 2 diabetes mellitus with other specified complication, unspecified whether alf insulin use ([facility]); Primary osteoarthritis of both knees Social History [...] Description 05/03/2025 1:00 PM EST Clinical Support [facility] MEDICINE [address] [place] [address] Amanda Waldrop RN 06/22/2025 1:00 PM EST Office Visit [facility] ADULT DENTAL [address] [place] [address] Gloria Corey [address] [place] [address] documented as of this encounter Visit Diagnoses Diagnosis Type 2 diabetes mellitus with other specified complication, unspecified whether alf insulin use ([facility]) Primary osteoarthritis of both knees documented in this encounter Additional Health Concerns Assessment Noted Time PHQ-9 Depression Total Score: 0 08/22/19 23 10:06 AM EDT documented as of this encounter Care Teams Blow Pit Operator Relationship Specialty Start Date End Date Kalpana Baptiste MD [address] [place] [address] PCP - General Family Medicine 06/14/20 Betsy Wray RN [address] [place] [address] Registered Nurse Family Medicine 09/28/24 12/30/24 Erika Saldivar 09/28/24 01/10/25 documented as of this encounter
--- OUTSIDE RECORDS SUMMARY | 2025-01-28 13:50 | XMS_ITS | Encounter Summary ---
Author Organization [employer] Address [address] [facility] 7t [place] [address] Care Team Providers Care Staffing Analyst Name Role Phone Kalpana Baptiste MD Primary Care Provide r Betsy Wray RN Unavailable [phone] Erika Saldivar Unavailable Reason for Visit * Reason Comments Med Refill Encounter Details Date Type Department Care Team (Late st Contact Info) Description 05/15/[address] [facility] MEDICINE [address] [place], [place] [phone] Kalpana Baptiste MD [address] [place], [place] [phone] Primary osteoarthritis of both knees; Heartburn Social [...] 05/03/2025 1:00 PM EST Clinical Support [facility] MED[facility]INE [address] [place] [address] Amanda Waldrop RN 06/22/2025 1:00 PM EST Office Visit [facility] ADULT DENTAL [address] [place] [address] Leora, Gloria [address] [place] [address] documented as of this encounter Visit Diagnoses Diagnosis Primary osteoarthritis of both knees Heartburn documented in this encounter Additional Health Concerns Assessment Noted Time PHQ-9 Depression Total Score: 0 08/22/19 23 10:06 AM EDT documented as of this encounter Care Teams Staffing Analyst Relationship Specialty Start Date End Date Kalpana Baptiste MD [address] [place] [address] PCP - General Family Medicine 06/14/20 Betsy Wray RN [address] [place] [address] Registered Nurse Family Medicine 09/28/24 12/30/24 Erika Saldivar 09/28/24 01/10/25 documented as of this encounter
--- OUTSIDE RECORDS SUMMARY | 2025-01-28 13:50 | XMS_ITS | Encounter Summary ---
Author Organization [employer] Address [address] [facility] 7t [place] [address] Care Team Providers Care Extrusion Machine Operator Name Role Phone Kalpana Baptiste MD Primary Care Provide r Betsy Wray RN Unavailable [phone] Erika Saldivar Unavailable Reason for Visit * Reason Comments Med Refill Encounter Details Date Type Department Care Team (Late st Contact Info) Description 03/11/2023 Refill [facility] MEDICINE [address] [place], [place] [phone] Kalpana Baptiste MD [address] [place], [place] [phone] Chronic tension-type headache, not intractable; Primary osteoarthritis [...] Description 05/03/2025 1:00 PM EST Clinical Support [facility] MEDICINE [address] [place] [address] Amanda Waldrop RN 06/22/2025 1:00 PM EST Office Visit [facility] ADULT DENTAL [address] [place] [address] LeoraPierreGloria [address] [place] [address] documented as of this encounter Visit Diagnoses Diagnosis Chronic tension-type headache, not intractable Chronic tension type headache Primary osteoarthritis of both knees documented in this encounter Additional Health Concerns Assessment Noted Time PHQ-9 Depression Total Score: 0 08/22/19 23 10:06 AM EDT documented as of this encounter Care Teams Extrusion Machine Operator Relationship Specialty Start Date End Date Kalpana Baptiste MD [address] [place] [address] PCP - General Family Medicine 06/14/20 Betsy Wray RN [address] [place] [address] Registered Nurse Family Medicine 09/28/24 12/30/24 Erika Saldivar 09/28/24 01/10/25 documented as of this encounter
--- OUTSIDE RECORDS SUMMARY | 2025-01-28 13:50 | XMS_ITS | Encounter Summary ---
Author Organization [employer] Address [address] [facility] 7t [place] [address] Care Team Providers Care Supervisor Grower Name Role Phone Kalpana Baptiste MD Primary Care Provide r Betsy Wray RN Unavailable [phone] Erika Saldivar Unavailable Reason for Visit * Reason Comments Med Refill Encounter Details Date Type Department Care Team (Late st Contact Info) Description 03/23/2024 Refill [facility] MEDICINE [address] [place], [place] [phone] Kalpana Baptiste MD [address] [place], [place] [phone] Primary osteoarthritis of both knees; Type 2 diabetes mellitus with other specified complication, 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) Social History [...] Description 05/03/2025 1:00 PM EST Clinical Support [facility] [address] [place] [address] Amanda Waldrop RN 06/22/2025 1:00 PM EST Office Visit [facility] ADULT DENTAL [address] [place] [address] Gloria Corey [address] [place] [address] documented as of this encounter Visit Diagnoses Diagnosis Primary osteoarthritis of both knees Type 2 diabetes mellitus with other specified complication, unspecified whether chcf 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) documented in this encounter Additional Health Concerns Assessment Noted Time PHQ-9 Depression Total Score: 0 08/22/19 23 10:06 AM EDT documented as of this encounter Care Teams Supervisor Grower Relationship Specialty Start Date End Date Kalpana Baptiste MD [address] [place] [address] PCP - General Family Medicine 06/14/20 Betsy Wray RN [address] [place] [address] Registered Nurse Family Medicine 09/28/24 12/30/24 Erika Saldivar 09/28/24 01/10/25 documented as of this encounter
--- OUTSIDE RECORDS SUMMARY | 2025-01-28 13:50 | XMS_ITS | Encounter Summary ---
Author Organization [id number] Address [address] [facility] 7t [place] [address] Care Team Providers Care Entry Level Management Name Role Phone Kalpana Baptiste MD Primary Care Provide r Betsy Wray RN Unavailable [phone] Erika Saldivar Unavailable Reason for Visit * Reason Comments Med Refill Encounter Details Date Type Department Care Team ([facility] st Contact Info) Description 04/21/2023 Refill [facility] [address] [place], [place] [phone] Kalpana Baptiste MD [address] [place], [place] [phone] Primary osteoarthritis of both knees Social History [...] EST Clinical Support [facility] [address] [place] [address] Amanda Waldrop RN 06/22/2025 1:00 PM EST Office Visit [facility] ADULT DENTAL [address] [place] [address] Leora, Gloria [address] [place] [address] documented as of this encounter Visit Diagnoses Diagnosis Primary osteoarthritis of both knees documented in this encounter Additional Health Concerns Assessment Noted Time PHQ-9 Depression Total Score: 0 08/22/19 23 10:06 AM EDT documented as of this encounter Care Teams Entry Level Management Relationship Specialty Start Date End Date Kalpana Baptiste MD [address] [place] [address] PCP - General Family Medicine 06/14/20 Betsy Wray RN [address] [place] [address] Registered Nurse Family Medicine 09/28/24 12/30/24 Erika Saldivar 09/28/24 01/10/25 documented as of this encounter
--- OUTSIDE RECORDS SUMMARY | 2025-01-28 13:50 | XMS_ITS | Encounter Summary ---
Author Organization [employer] Address [address] [facility] [address] [address] 7[address] [place] [address] Care Team Providers Care Operator Name Role Phone Kalpana Baptiste MD Primary Care Provide r Betsy Wray RN Unavailable [phone] Erika Saldivar Unavailable Reason for Visit * Reason Comments Med Refill Encounter Details Date Type Department Care Team (Late st Contact Info) Description 04/21/2023 Refill [facility] MEDICINE [address] [place], [place] [phone] Kalpana Baptiste MD [address] [place], [place] [phone] Chronic tension-type headache, not intractable Social History [...] Description 05/03/2025 1:00 PM EST Clinical Support [facility] MEDICINE [address] [place] [address] Amanda Waldrop RN 06/22/2025 1:00 PM EST Office Visit [facility] ADULT DENTAL [address] [place] [address] LeoraPierreGloria [address] [place] [address] documented as of this encounter Visit Diagnoses Diagnosis Chronic tension-type headache, not intractable Chronic tension type headache documented in this encounter Additional Health Concerns Assessment Noted Time PHQ-9 Depression Total Score: 0 08/22/19 23 10:06 AM EDT documented as of this encounter Care Teams Operator Relationship Specialty Start Date End Date Kalpana Baptiste MD [address] [place] [address] PCP - General Family Medicine 06/14/20 Betsy Wray RN [address] [place] [address] Registered Nurse Family Medicine 09/28/24 12/30/24 Erika Saldivar 09/28/24 01/10/25 documented as of this encounter
--- OUTSIDE RECORDS SUMMARY | 2025-01-28 13:50 | XMS_ITS | Encounter Summary ---
Author Organization [employer] Address [address] [facility] 7t [place] [address] Care Team Providers Care Hospice Liaison Name Role Phone Kalpana Baptiste MD Primary Care Provide r Betsy Wray RN Unavailable [phone] Erika Saldivar Unavailable Reason for Visit * Reason Comments Med Refill Encounter Details Date Type Department Care Team (Late st Contact Info) Description 05/13/[address] [facility] MEDICINE [address] [place], [place] [phone] Kalpana Baptiste MD [address] [place], [place] [phone] Heartburn Social History Tobacco Use Types Packs/Day [...] PM EST Clinical Support [facility] MEDICINE [address] [place] [address] Amanda Waldrop RN 06/22/2025 1:00 PM EST Office Visit [facility] ADULT DENTAL [address] [place] [address] Leora, Gloria [address] [place] [address] documented as of this encounter Visit Diagnoses Diagnosis Heartburn documented in this encounter Additional Health Concerns Assessment Noted Time PHQ-9 Depression Total Score: 0 05/06/19 25 2:15 PM EST documented as of this encounter Care Teams Hospice Liaison Relationship Specialty Start Date End Date Kalpana Baptiste MD [address] [place] [address] PCP - General Family Medicine 06/14/20 Betsy Wray RN [address] [place] [address] Registered Nurse Family Medicine 09/28/24 12/30/24 Erika Saldivar 09/28/24 01/10/25 documented as of this encounter
[2025-01-28 13:57] LABS: Alanine Aminotransferase 65 U/L (0-31); Albumin Level 4.5 g/dL (3.5-5.0); Alkaline Phosphatase 76 U/L (39-117); Anion Gap 14 (12-20); Aspartate Amino Transferase 55 U/L (5-31); Blood Urea Nitrogen 35 mg/dL (9-16); Calcium 8.9 mg/dL (8.4-10.2); Carbon Dioxide 26 mmol/L (22-29); Chloride 107 mmol/L (96-108); Estimated Glomerular Filt Rate 22; Potassium 4.5 mmol/L (3.3-5.1); Sodium 142 mmol/L (135-145); Total Protein 7.3 g/dL (6.5-8.0)
[2025-01-28 14:09] LABS: Microalbum/Creatinine Ratio Ur 105.2 ug/mg cr (<30)
[2025-01-28 14:27] LABS: Alanine Aminotransferase 67 U/L (0-31); Albumin Level 4.5 g/dL (3.5-5.0); Alkaline Phosphatase 77 U/L (39-117); Anion Gap 16 (12-20); Aspartate Amino Transferase 59 U/L (5-31); Blood Urea Nitrogen 35 mg/dL (9-16); Calcium 8.9 mg/dL (8.4-10.2); Carbon Dioxide 26 mmol/L (22-29); Chloride 107 mmol/L (96-108); Cholesterol 191 mg/dL (<200); Estimated Glomerular Filt Rate 21; HDL Cholesterol 61 mg/dL (>40); Potassium 4.5 mmol/L (3.3-5.1); Sodium 144 mmol/L (135-145); Total Protein 7.4 g/dL (6.5-8.0); Triglycerides 204 mg/dL (<150)
== END 2025-01-28 12:03 | disposition home or self-care (01) ==
LOC: HO.HHCL 12:02
PROVIDERS: PCP Internal Medicine; Referring Provider Internal Medicine Medical Oncology; Visit Provider Internal Medicine
DX: E11.22 Type 2 diabetes mellitus with diabetic chronic kidney disease (principal); N18.30 Chronic kidney disease, stage 3 unspecified; D63.1 Anemia in chronic kidney disease; R16.1 Splenomegaly, not elsewhere classified
CPT/HCPCS: 36415; 80053; 80061; 82043; 82570; 85025

== ENCOUNTER 2025-04-17 22:09 | Emergency (ER) | payer MEDICAID, SELFPAY ==
--- NOTE | ~2025-04-17 | XR_ITS ---
CLINICAL HISTORY: Decreased ROM, pain 3 view right hand Comparison: None provided Findings: Calcific density (3 mm long axis) adjacent to distal 3rd interphalangeal joint is nonspecific. Differential considerations include ligament calcification and small foreign body. Small avulsion fragment considered less likely. Mild osteoarthritis is multifocal. No dislocation. No retained metallic foreign body. IMPRESSION: 1. 3 mm calcification adjacent to 3rd distal interphalangeal joint is nonspecific. Please correlate for any potential small foreign body. 2. Mild multifocal osteoarthritis. This document has been electronically signed by: Jeremy Elaine MD on 04/17/2025 23:44:23
[2025-04-17 22:15] VITALS: BP 121/73; PULSE 87; RESP 16; TEMP 36.8; O2SAT 98; BMI 28.2
--- OUTSIDE RECORDS SUMMARY | 2025-04-18 02:43 | XMS_ITS | Encounter Summary ---
Author Organization [employer] Address [address] [facility] 7t [place] [address] Care Team Providers Care Card Brusher Name Role Phone Kalpana Baptiste MD Primary Care Provide r Betsy Wray RN Unavailable Unavailable Erika Saldivar Unavailable Reason for Visit * Reason Comments Med Refill Encounter Details Date Type Department Care Team ([facility] st Contact Info) Description 09/11/2023 Refill [facility] MEDICINE [address] [place], [place] [phone] Kalpana Baptiste MD [address] [place] [address] Acute otitis media, unspecified otitis media type [...] 1:00 PM EST Clinical Support [facility] MEDICINE [address] [place] [address] Amanda Waldrop RN 06/22/2025 12:45 PM EST Office Visit [facility] ADULT DENTAL [address] [place] [address] Leora, Gloria [address] [place] [address] 07/05/2025 1:00 PM EST Office Visit [facility] OPTOMETRY [address] [place] [address] Jonathon, Beata, OD [address] [place] [address] documented as of this encounter Visit Diagnoses Diagnosis Acute otitis media, unspecified otitis media type documented in this encounter Additional Health Concerns Assessment Noted Time PHQ-9 Depression Total Score: 0 08/22/19 23 10:06 AM EDT documented as of this encounter Care Teams Card Brusher Relationship Specialty Start Date End Date Kalpana Baptiste MD [address] [place] [address] PCP - General Family Medicine 06/14/20 Betsy Wray RN [address] [place] [address] Registered Nurse Family Medicine 5/27/25 8/28/25 Erika Saldivar 09/28/24 01/10/25 documented as of this encounter
--- OUTSIDE RECORDS SUMMARY | 2025-04-18 02:43 | XMS_ITS | Encounter Summary ---
Author Organization [employer] Address [address] [facility] 7t [place] [address] Care Team Providers Care Vp Purchasing Name Role Phone Kalpana Baptiste MD Primary Care Provide r Betsy Wray RN Unavailable Unavailable Erika Saldivar Unavailable Reason for Visit * Reason Comments Med Refill Encounter Details Date Type Department Care Team ([facility] st Contact Info) Description 08/05/2024 Refill [facility] MEDICINE [address] [place], [place] [phone] Caryl Biggs MD [address] [place] [address] Social History Tobacco Use Types Packs/Day Years [...] Clinical Support [facility] MEDICINE [address] [place] [address] Amanda Waldrop RN 06/22/2025 12:45 PM EST Office Visit [facility] ADULT DENTAL [address] [place] [address] Pierre Coreyaris [address] [place] [address] 07/05/2025 1:00 PM EST Office Visit [facility] OPTOMETRY [address] [place] [address] Jonathon, Beata, OD [address] [place] [address] documented as of this encounter Visit Diagnoses Not on filedocumented in this encounter Additional Health Concerns Assessment Noted Time PHQ-9 Depression Total Score: 0 05/06/19 25 2:15 PM EST documented as of this encounter Care Teams Vp Purchasing Relationship Specialty Start Date End Date Kalpana Baptiste MD [address] [place] [address] PCP - General Family Medicine 06/14/20 Betsy Wary RN [address] [place] [address] Registered Nurse Family Medicine 09/28/24 12/30/24 Erika Saldivar 09/28/24 01/10/25 documented as of this encounter
--- OUTSIDE RECORDS SUMMARY | 2025-04-18 02:43 | XMS_ITS | Encounter Summary ---
Author Organization [employer] Address 75 [facility] 7t [place] [address] Care Team Providers Care Renal Medicine Physician Name Role Phone Kalpana Baptiste MD Primary Care Provide r Betsy Wray RN Unavailable Unavailable Erika Saldivar Unavailable Reason for Visit * Reason Comments Med Refill Encounter Details Date Type Department Care Team ([facility] st Contact Info) Description 06/05/2023 Refill [facility] MEDICINE [address] [place] [address] Kalpana Baptiste MD 230 [place] [address] Heartburn; Chronic tension-type headache, not intractable; Primary [...] Description 05/03/2025 1:00 PM EST Clinical Support [facility] MEDICINE [address] [place] [address] Amanda Waldrop RN 06/22/2025 12:45 PM EST Office Visit [facility] ADULT DENTAL [address] [place] [address] Leora, Gloria [address] [place] [address] 07/05/2025 1:00 PM EST Office Visit [facility] OPTOMETRY [address] [place] [address] Jonathon, Beata, OD 230 [place] [address] documented as of this encounter Visit Diagnoses Diagnosis Heartburn Chronic tension-type headache, not intractable Chronic tension type headache Primary osteoarthritis of both knees documented in this encounter Additional Health Concerns Assessment Noted Time PHQ-9 Depression Total Score: 0 08/22/19 23 10:06 AM EDT documented as of this encounter Care Teams Renal Medicine Physician Relationship Specialty Start Date End Date Kalpana Baptiste MD [address] [place] [address] PCP - General Family Medicine 06/14/20 Betsy Wray RN [address] [place] [address] Registered Nurse Family Medicine 09/28/24 12/30/24 Erika Saldivar 09/28/24 01/10/25 documented as of this encounter
--- OUTSIDE RECORDS SUMMARY | 2025-04-18 02:43 | XMS_ITS | Encounter Summary ---
Author Organization [employer] [facility] Address 75 [facility] 7t [place] [address] Care Team Providers Care Shipyard Laborer Name Role Phone Kalpana Baptiste MD Primary Care Provide r Betsy Wray RN Unavailable Unavailable Erika Saldivar Unavailable Reason for Visit * Reason Comments Med Refill Encounter Details Date Type Department Care Team ([facility] Contact Info) Description 08/15/2022 Refill [facility] MEDICINE [address] [place] [address] Kalpana Baptiste MD 230 [place] [address] Primary osteoarthritis of both knees Social History [...] Upcoming Encounters Date Type Department Care Team ([facility] Contact Info) Description 05/03/2025 1:00 PM EST Clinical Support [facility] MEDICINE [address] [place] [address] Amanda Waldrop, NEGAR 06/22/2025 12:45 PM EST Office Visit [facility] ADULT DENTAL [address] [place] [address] LeoraGloria [address] [place] [address] 07/05/2025 1:00 PM EST Office Visit [facility] OPTOMETRY [address] [place] [address] Beata Holt, OD 230 [place] [address] documented as of this encounter Visit Diagnoses Diagnosis Primary osteoarthritis of both knees documented in this encounter Care Teams Shipyard Laborer Relationship Specialty Start Date End Date Kalpana Baptiste MD [address] [place] [address] PCP - General Family Medicine 06/14/20 Betsy Wray RN [address] [place] [address] Registered Nurse Family Medicine 09/28/24 12/30/24 Erika Saldivar 09/28/24 01/10/25 documented as of this encounter
--- OUTSIDE RECORDS SUMMARY | 2025-04-18 02:43 | XMS_ITS | Encounter Summary ---
Author Organization [employer] Address 75 [facility] 7t [place] [address] Care Team Providers Care Plant Health Manager Name Role Phone Kalpana Baptiste MD Primary Care Provide r Betsy Wray RN Unavailable Unavailable Erika Saldivar Unavailable Reason for Visit * Reason Comments Med Refill Encounter Details Date Type Department Care Team ([facility] st Contact Info) Description 07/24/2023 Refill [facility] MEDICINE [address] [place], [place] [phone] Kalpana Baptiste MD [address] [place] [address] Moderate persistent asthma without complication; Primary osteoarthritis [...] 1:00 PM EST Clinical Support [facility] MEDICINE [address] [place] [address] Amanda Waldrop RN 06/22/2025 12:45 PM EST Office Visit [facility] ADULT DENTAL [address] [place] [address] Leora, Gloria [address] [place] [address] 07/05/2025 1:00 PM EST Office Visit [facility] OPTOMETRY [address] [place] [address] Jonathon, Beata, OD [address] [place] [address] documented as of this encounter Visit Diagnoses Diagnosis Moderate persistent asthma without complication Primary osteoarthritis of both knees Chronic gout of multiple sites, unspecified cause documented in this encounter Additional Health Concerns Assessment Noted Time PHQ-9 Depression Total Score: 0 08/22/19 23 10:06 AM EDT documented as of this encounter Care Teams Plant Health Manager Relationship Specialty Start Date End Date Kalpana Baptiste MD 230 [place] [address] PCP - General Family Medicine 06/14/20 Betsy Wray RN [address] [facility] [place] [address] Registered Nurse Family Medicine 09/28/24 12/30/24 Erika Saldivar 09/28/24 01/10/25 documented as of this encounter
--- OUTSIDE RECORDS SUMMARY | 2025-04-18 02:43 | XMS_ITS | Encounter Summary ---
Author Organization [employer] Address 75 [facility] 7t [place] [address] Care Team Providers Care Tar Heel Name Role Phone Kalpana Baptiste MD Primary Care Provide r Betsy Wray RN Unavailable Unavailable Erika Saldivar Unavailable Reason for Visit * Reason Comments Med Refill Encounter Details Date Type Department Care Team ([facility] st Contact Info) Description 07/28/[address] [facility] MEDICINE [address] [place], [place] [phone] Caryl Biggs MD 230 [place] [address] Chronic tension-type headache, not intractable Social History [...] [facility] MEDICINE [address] [place] [address] Amanda Waldrop RN 06/22/2025 12:45 PM EST Office Visit [facility] ADULT DENTAL [address] [place] [address] Leora, Gloria [address] [place] [address] 07/05/2025 1:00 PM EST Office Visit [facility] OPTOMETRY [address] [place] [address] Jonathon, Beata, OD 230 [place] [address] documented as of this encounter Visit Diagnoses Diagnosis Chronic tension-type headache, not intractable Chronic tension type headache documented in this encounter Additional Health Concerns Assessment Noted Time PHQ-9 Depression Total Score: 0 08/22/19 23 10:06 AM EDT documented as of this encounter Care Teams Tar Heel Relationship Specialty Start Date End Date Kalpana Baptiste MD [address] [place] [address] PCP - General Family Medicine 06/14/20 Betsy Wray RN [address] [place] [address] Registered Nurse Family Medicine 5/27/25 8/28/25 Erika Saldivar 09/28/24 01/10/25 documented as of this encounter
--- OUTSIDE RECORDS SUMMARY | 2025-04-18 02:43 | XMS_ITS | Encounter Summary ---
Author Organization [employer] Address 75 [facility] 7t [place] [address] Care Team Providers Care Pedicurist Name Role Phone Kalpana Baptiste MD Primary Care Provide r Betsy Wray RN Unavailable Unavailable Erika Saldivar Unavailable Reason for Visit * Reason Comments Med Refill Encounter Details Date Type Department Care Team ([facility] st Contact Info) Description 09/19/2023 Refill [facility] MEDICINE [address] [place], [place] [phone] Kalpana Baptiste MD 230 [place] [address] Primary osteoarthritis of both knees; Chronic tension-type [...] Description 05/03/2025 1:00 PM EST Clinical Support [facility] MEDICINE [address] [place] [address] Amanda Waldrop RN 06/22/2025 12:45 PM EST Office Visit [facility] ADULT DENTAL [address] [place] [address] Leora, Gloria [address] [place] [address] 07/05/2025 1:00 PM EST Office Visit [facility] OPTOMETRY [address] [place] [address] Jonathon, Beata, OD 230 [place] [address] documented as of this encounter Visit Diagnoses Diagnosis Primary osteoarthritis of both knees Chronic tension-type headache, not intractable Chronic tension type headache Dry eyes Unspecified tear film insufficiency documented in this encounter Additional Health Concerns Assessment Noted Time PHQ-9 Depression Total Score: 0 08/22/19 23 10:06 AM EDT documented as of this encounter Care Teams Pedicurist Relationship Specialty Start Date End Date Kalpana Baptiste MD [address] [place] [address] PCP - General Family Medicine 06/14/20 Betsy Wray RN [address] [place] [address] Registered Nurse Family Medicine 09/28/24 12/30/24 Erika Saldivar 09/28/24 01/10/25 documented as of this encounter
--- OUTSIDE RECORDS SUMMARY | 2025-04-18 02:43 | XMS_ITS | Encounter Summary ---
Author Organization [email or web address] Address 75 [facility] 7t [place] [address] Care Team Providers Care Spinning Bath Patroller Name Role Phone Kalpana Baptiste MD Primary Care Provide r Betsy Wray RN Unavailable Unavailable Erika Saldivar Unavailable Reason for Visit * Reason Comments Med Refill Encounter Details Date Type Department Care Team ([facility] st Contact Info) Description 06/29/2023 Refill [facility] MEDICINE 230 [place], [place] [phone] Caryl Biggs MD 230 [place] [address] Primary osteoarthritis of both knees Social History [...] 05/03/2025 1:00 PM EST Clinical Support [facility] MEDICINE [address] [place] [address] Amanda Waldrop RN 06/22/2025 12:45 PM EST Office Visit [facility] ADULT DENTAL [address] [place] [address] Pierre Coreyaris 230 [place] [address] 07/05/2025 1:00 PM EST Office Visit [facility] OPTOMETRY [address] [place] [address] Jonathon, Beata, OD [address] [place] [address] documented as of this encounter Visit Diagnoses Diagnosis Primary osteoarthritis of both knees documented in this encounter Additional Health Concerns Assessment Noted Time PHQ-9 Depression Total Score: 0 08/22/19 23 10:06 AM EDT documented as of this encounter Care Teams Spinning Bath Patroller Relationship Specialty Start Date End Date Kalpana Baptiste MD [address] [place] [address] PCP - General Family Medicine 06/14/20 Betsy Wray RN [address] [place] [address] Registered Nurse Family Medicine 09/28/24 12/30/24 Erika Saldivar 09/28/24 01/10/25 documented as of this encounter
--- OUTSIDE RECORDS SUMMARY | 2025-04-18 02:43 | XMS_ITS | Encounter Summary ---
Author Organization [employer] Address 75 [facility] 7t [place] [address] Care Team Providers Care Rural Carrier Associate Name Role Phone Kalpana Baptiste MD Primary Care Provide r Betsy Wray RN Unavailable Unavailable Erika Saldivar Unavailable Reason for Visit * Reason Comments Med Refill Encounter Details Date Type Department Care Team ([facility] st Contact Info) Description 08/02/2024 Refill [facility] MEDICINE [address] [place], [place] [phone] Kalpana Baptiste MD [address] [place], [place] [phone] Primary osteoarthritis of both knees Social History [...] housing situation today? [place] have [place] 05/06/[address] you [...] Clinical Support [facility] MEDICINE [address] [place] [address] Amanda Waldrop, NEGAR 06/22/2025 12:45 PM EST Office Visit [facility] ADULT DENTAL [address] [place] [address] Leora, Gloria [address] [place] [address] 07/05/2025 1:00 PM EST Office Visit [facility] OPTOMETRY [address] [place] [address] Jonathon, Beata, OD 230 [place] [address] documented as of this encounter Visit Diagnoses Diagnosis Primary osteoarthritis of both knees documented in this encounter Additional Health Concerns Assessment Noted Time PHQ-9 Depression Total Score: 0 05/06/19 25 2:15 PM EST documented as of this encounter Care Teams Rural Carrier Associate Relationship Specialty Start Date End Date Kalpana Baptiste MD [address] [place] [address] PCP - General Family Medicine 06/14/20 Betsy Wray RN [address] [place] [address] Registered Nurse Family Medicine 09/28/24 12/30/24 Erika Saldivar 09/28/24 01/10/25 documented as of this encounter
--- OUTSIDE RECORDS SUMMARY | 2025-04-18 02:43 | XMS_ITS | Encounter Summary ---
Author Organization [employer] Address 75 [facility] 7t [place] [address] Care Team Providers Care Card Stripper Name Role Phone Kalpana Baptiste MD Primary Care Provide r Betsy Wray RN Unavailable Unavailable Erika Saldivar Unavailable Reason for Visit * Reason Comments Med Refill Encounter Details Date Type Department Care Team ([facility] st Contact Info) Description 07/08/2023 Refill [facility] MEDICINE [address] [place], [place] [phone] Caryl Biggs MD [address] [place] [address] Primary osteoarthritis of both knees Social History [...] Description 05/03/2025 1:00 PM EST Clinical Support [facility] MEDICINE [address] [place] [address] Amanda Waldrop RN 06/22/2025 12:45 PM EST Office Visit [facility] ADULT DENTAL [address] [place] [address] Pierre Coreyaris [address] [place] [address] 07/05/2025 1:00 PM EST Office Visit [facility] OPTOMETRY [address] [place] [address] Jonathon, Beata, OD 230 [place] [address] documented as of this encounter Visit Diagnoses Diagnosis Primary osteoarthritis of both knees documented in this encounter Additional Health Concerns Assessment Noted Time PHQ-9 Depression Total Score: 0 08/22/19 23 10:06 AM EDT documented as of this encounter Care Teams Card Stripper Relationship Specialty Start Date End Date Kalpana Baptiste MD [address] [place] [address] PCP - General Family Medicine 06/14/20 Betsy Wray RN [address] [place] [address] Registered Nurse Family Medicine 09/28/24 12/30/24 Erika Saldivar 09/28/24 01/10/25 documented as of this encounter
--- OUTSIDE RECORDS SUMMARY | 2025-04-18 02:43 | XMS_ITS | Encounter Summary ---
Author Organization [employer] Address 75 [facility] 7t [place] [address] Care Team Providers Care Reconditioning Associate Name Role Phone Kalpana Baptiste MD Primary Care Provide r Betsy Wray RN Unavailable Unavailable Erika Saldivar Unavailable Reason for Visit * Reason Comments Med Refill Encounter Details Date Type Department Care Team ([facility] st Contact Info) Description 07/10/2023 Refill [facility] MEDICINE [address] [place], [place] [phone] Caryl Biggs MD 230 [place] [address] Primary osteoarthritis of both knees Social History [...] Description 05/03/2025 1:00 PM EST Clinical Support [facility] MEDICINE [address] [place] [address] Amanda Waldrop RN 06/22/2025 12:45 PM EST Office Visit [facility] ADULT DENTAL [address] [place] [address] Pierre Coreyaris [address] [place] [address] 07/05/2025 1:00 PM EST Office Visit [facility] OPTOMETRY [address] [place] [address] Jonathon, Beata, OD 230 [place] [address] documented as of this encounter Visit Diagnoses Diagnosis Primary osteoarthritis of both knees documented in this encounter Additional Health Concerns Assessment Noted Time PHQ-9 Depression Total Score: 0 08/22/19 23 10:06 AM EDT documented as of this encounter Care Teams Reconditioning Associate Relationship Specialty Start Date End Date Kalpana Baptiste MD [address] [place] [address] PCP - General Family Medicine 06/14/20 Betsy Wray RN [address] [place] [address] Registered Nurse Family Medicine 09/28/24 12/30/24 Erika Saldivar 09/28/24 01/10/25 documented as of this encounter
--- OUTSIDE RECORDS SUMMARY | 2025-04-18 02:43 | XMS_ITS | Encounter Summary ---
Author Organization [employer] Address 75 [facility] 7t [place] [address] Care Team Providers Care Master Data Analyst Name Role Phone Kalpana Baptiste MD Primary Care Provide r Betsy Wray RN Unavailable Unavailable Erika Saldivar Unavailable Reason for Visit * Reason Comments Med Refill Encounter Details Date Type Department Care Team ([facility] st Contact Info) Description 08/23/2022 Refill [facility] MEDICINE [address] [place], [place] [phone] Kalpana Baptiste MD 230 [place] [address] Primary osteoarthritis of both knees Social History [...] Description 05/03/2025 1:00 PM EST Clinical Support [facility] MEDICINE [address] [place] [address] Amanda Waldrop RN 06/22/2025 12:45 PM EST Office Visit [facility] ADULT DENTAL [address] [place] [address] Pierre Coreyaris [address] [place] [address] 07/05/2025 1:00 PM EST Office Visit [facility] OPTOMETRY [address] [place] [address] Beata Holt, OD 230 [place] [address] documented as of this encounter Visit Diagnoses Diagnosis Primary osteoarthritis of both knees documented in this encounter Additional Health Concerns Assessment Noted Time PHQ-9 Depression Total Score: 0 08/22/19 23 10:06 AM EDT documented as of this encounter Care Teams Master Data Analyst Relationship Specialty Start Date End Date Kalpana Baptiste MD [address] [place] [address] PCP - General Family Medicine 06/14/20 Betsy Wray RN [address] [place] [address] Registered Nurse Family Medicine 09/28/24 12/30/24 Erika Saldivar 09/28/24 01/10/25 documented as of this encounter
--- OUTSIDE RECORDS SUMMARY | 2025-04-18 02:43 | XMS_ITS | Encounter Summary ---
Author Organization [email or web address] Address 75 [facility] 7t [place] [address] Care Team Providers Care Solidworks Drafter Name Role Phone Kalpana Baptiste MD Primary Care Provide r Betsy Wrya RN Unavailable Unavailable Erika Saldivar Unavailable Reason for Visit * Reason Comments Med Refill Encounter Details Date Type Department Care Team ([facility] st Contact Info) Description 06/06/2023 Refill [facility] MEDICINE 230 [place], [place] [phone] Kalpana Baptiste MD [address] [place] [address] Primary osteoarthritis of both knees; Chronic tension-type [...] Description 05/03/2025 1:00 PM EST Clinical Support [facility] MEDICINE [address] [place] [address] Amanda Waldrop RN 06/22/2025 12:45 PM EST Office Visit [facility] ADULT DENTAL [address] [place] [address] Leora, Gloria [address] [place] [address] 07/05/2025 1:00 PM EST Office Visit [facility] OPTOMETRY [address] [place] [address] Jonathon, Beata, OD 230 [place] [address] documented as of this encounter Visit Diagnoses Diagnosis Primary osteoarthritis of both knees Chronic tension-type headache, not intractable Chronic tension type headache Heartburn documented in this encounter Additional Health Concerns Assessment Noted Time PHQ-9 Depression Total Score: 0 08/22/19 23 10:06 AM EDT documented as of this encounter Care Teams Solidworks Drafter Relationship Specialty Start Date End Date Kalpana Baptiste MD [address] [place] [address] PCP - General Family Medicine 06/14/20 Betsy Wray RN [address] [place] [address] Registered Nurse Family Medicine 09/28/24 12/30/24 Erika Saldivar 09/28/24 01/10/25 documented as of this encounter
--- OUTSIDE RECORDS SUMMARY | 2025-04-18 02:43 | XMS_ITS | Encounter Summary ---
Author Organization [employer] Address 75 [facility] 7t [place] [address] Care Team Providers Care Electrical Subcontractor Name Role Phone Kalpana Baptiste MD Primary Care Provide r Betsy Wray RN Unavailable Unavailable Erika Saldivar Unavailable Reason for Visit * Reason Comments Med Refill Encounter Details Date Type Department Care Team ([facility] st Contact Info) Description 07/25/2023 Refill [facility] MEDICINE [address] [place], [place] [phone] Caryl Biggs MD [address] [place] [address] Chronic tension-type headache, not intractable Social History [...] Clinical Support [facility] MEDICINE [address] [place] [address] Amanda Waldrop RN 06/22/2025 12:45 PM EST Office Visit [facility] ADULT DENTAL [address] [place] [address] Leora, Gloria [address] [place] [address] 07/05/2025 1:00 PM EST Office Visit [facility] OPTOMETRY [address] [place] [address] Jonathon, Beata, OD [address] [place] [address] documented as of this encounter Visit Diagnoses Diagnosis Chronic tension-type headache, not intractable Chronic tension type headache documented in this encounter Additional Health Concerns Assessment Noted Time PHQ-9 Depression Total Score: 0 08/22/19 23 10:06 AM EDT documented as of this encounter Care Teams Electrical Subcontractor Relationship Specialty Start Date End Date Kalpana Baptiste MD [address] [place] [address] PCP - General Family Medicine 06/14/20 Betsy Wray RN [address] [place] [address] Registered Nurse Family Medicine 5/27/25 8/28/25 Erika Saldivar 09/28/24 01/10/25 documented as of this encounter
--- OUTSIDE RECORDS SUMMARY | 2025-04-18 02:43 | XMS_ITS | Encounter Summary ---
Author Organization [employer] Address 75 [facility] 7t [place] [address] Care Team Providers Care Supervisor Nuclear Medicine Name Role Phone Kalpana Baptiste MD Primary Care Provide r Betsy Wray RN Unavailable Unavailable Erika Saldivar Unavailable Reason for Visit * Reason Comments Med Refill Encounter Details Date Type Department Care Team ([facility] st Contact Info) Description 07/24/2023 Refill [facility] MEDICINE [address] [place], [place] [phone] Caryl Biggs MD [address] [place] [address] Chronic tension-type headache, not intractable Social History [...] Description 05/03/2025 1:00 PM EST Clinical Support [facility] MEDICINE [address] [place] [address] Amanda Waldrop RN 06/22/2025 12:45 PM EST Office Visit [facility] ADULT DENTAL [address] [place] [address] Leora, Gloria [address] [place] [address] 07/05/2025 1:00 PM EST Office Visit [facility] OPTOMETRY [address] [place] [address] Jonathon, Beata, OD 230 [place] [address] documented as of this encounter Visit Diagnoses Diagnosis Chronic tension-type headache, not intractable Chronic tension type headache documented in this encounter Additional Health Concerns Assessment Noted Time PHQ-9 Depression Total Score: 0 08/22/19 23 10:06 AM EDT documented as of this encounter Care Teams Supervisor Nuclear Medicine Relationship Specialty Start Date End Date Kalpana Baptiste MD [address] [place] [address] PCP - General Family Medicine 06/14/20 Betsy Wray RN [address] [place] [address] Registered Nurse Family Medicine 5/27/25 8/28/25 Erika Saldivar 09/28/24 01/10/25 documented as of this encounter
--- OUTSIDE RECORDS SUMMARY | 2025-04-18 02:43 | XMS_ITS | Encounter Summary ---
Author Organization [employer] Address 75 [facility] 7t [place] [address] Care Team Providers Care Dump Truck Operator Name Role Phone Kalpana Baptiste MD Primary Care Provide r Betsy Wray RN Unavailable Unavailable Erika Saldivar Unavailable Reason for Visit * Reason Comments Med Refill Encounter Details Date Type Department Care Team ([facility] st Contact Info) Description 06/09/2023 Refill [facility] MEDICINE [address] [place], [place] [phone] Kalpana Baptiste MD 230 [place] [address] Chronic tension-type headache, not intractable; Primary osteoarthritis [...] 1:00 PM EST Clinical Support [facility] MEDICINE [address] [place] [address] Amanda Waldrop RN 06/22/2025 12:45 PM EST Office Visit [facility] ADULT DENTAL [address] [place] [address] Leora, Gloria [address] [place] [address] 07/05/2025 1:00 PM EST Office Visit [facility] OPTOMETRY [address] [place] [address] Jonathon, Beata, OD 230 [place] [address] documented as of this encounter Visit Diagnoses Diagnosis Chronic tension-type headache, not intractable Chronic tension type headache Primary osteoarthritis of both knees Heartburn documented in this encounter Additional Health Concerns Assessment Noted Time PHQ-9 Depression Total Score: 0 08/22/19 23 10:06 AM EDT documented as of this encounter Care Teams Dump Truck Operator Relationship Specialty Start Date End Date Kalpana Baptiste MD [address] [place] [address] PCP - General Family Medicine 06/14/20 Betsy Wray RN [address] [place] [address] Registered Nurse Family Medicine 09/28/24 12/30/24 Erika Saldivar 09/28/24 01/10/25 documented as of this encounter
--- OUTSIDE RECORDS SUMMARY | 2025-04-18 02:43 | XMS_ITS | Encounter Summary ---
Author Organization [employer] Address 75 [facility] 7t [place] [address] Care Team Providers Care Reprint Sorter Name Role Phone Kalpana Baptiste MD Primary Care Provide r Betsy Wray RN Unavailable Unavailable Erika Saldivar Unavailable Reason for Visit * Reason Comments Med Refill Encounter Details Date Type Department Care Team ([facility] st Contact Info) Description 09/15/2023 Refill [facility] MEDICINE [address] [place] [address] Kalpana Baptiste MD 230 [place] [address] Chronic tension-type headache, not intractable; Dry eyes; [...] Description 05/03/2025 1:00 PM EST Clinical Support [facility] MEDICINE 230 [place] [address] Amanda Waldrop RN 06/22/2025 12:45 PM EST Office Visit [facility] ADULT DENTAL [address] [place] [address] Leora, Gloria [address] [place] [address] 07/05/2025 1:00 PM EST Office Visit [facility] OPTOMETRY [address] [place] [address] Jonathon, Beata, OD [address] [place] [address] documented as of this encounter Visit Diagnoses Diagnosis Chronic tension-type headache, not intractable Chronic tension type headache Dry eyes Unspecified tear film insufficiency Primary osteoarthritis of both knees documented in this encounter Additional Health Concerns Assessment Noted Time PHQ-9 Depression Total Score: 0 08/22/19 23 10:06 AM EDT documented as of this encounter Care Teams Reprint Sorter Relationship Specialty Start Date End Date Kalpana Baptiste MD [address] [place] [address] PCP - General Family Medicine 06/14/20 Betsy Wray RN [address] [place] [address] Registered Nurse Family Medicine 09/28/24 12/30/24 Erika Saldivar 09/28/24 01/10/25 documented as of this encounter
--- OUTSIDE RECORDS SUMMARY | 2025-04-18 02:43 | XMS_ITS | Encounter Summary ---
Author Organization [facility] [employer] Address 75 [facility] 7t [place] [address] Care Team Providers Care Territory Service Representative Name Role Phone Kalpana Baptiste MD Primary Care Provide r Betsy Wray RN Unavailable Unavailable Erika Saldivar Unavailable Reason for Visit * Reason Comments Med Refill Encounter Details Date Type Department Care Team ([facility] st Contact Info) Description 07/05/2023 Refill [facility] MEDICINE [address] [place], [place] [phone] Caryl Biggs MD 230 [place] [address] Primary osteoarthritis of both knees Social History [...] [facility] MEDICINE [address] [place] [address] Amanda Waldrop RN 06/22/2025 12:45 PM EST Office Visit [facility] ADULT DENTAL [address] [place] [address] Pierre Coreyaris [address] [place] [address] 07/05/2025 1:00 PM EST Office Visit [facility] OPTOMETRY [address] [place] [address] Jonathon, Beata, OD 230 [place] [address] documented as of this encounter Visit Diagnoses Diagnosis Primary osteoarthritis of both knees documented in this encounter Additional Health Concerns Assessment Noted Time PHQ-9 Depression Total Score: 0 08/22/19 23 10:06 AM EDT documented as of this encounter Care Teams Territory Service Representative Relationship Specialty Start Date End Date Kalpana Baptiste MD [address] [place] [address] PCP - General Family Medicine 06/14/20 Betsy Wray RN [address] [place] [address] Registered Nurse Family Medicine 09/28/24 12/30/24 Erika Saldivar 09/28/24 01/10/25 documented as of this encounter
--- OUTSIDE RECORDS SUMMARY | 2025-04-18 02:43 | XMS_ITS | Encounter Summary ---
Author Organization [employer] Address 75 [facility] 7t [place] [address] Care Team Providers Care Space Control Agent Name Role Phone Kalpana Baptiste MD Primary Care Provide r Betsy Wray RN Unavailable Unavailable Eriak Saldivar Unavailable Reason for Visit * Reason Comments Med Refill Encounter Details Date Type Department Care Team ([facility] st Contact Info) Description 09/03/2022 Refill [facility] MEDICINE [address] [place], [place] [phone] Kalpana Baptiste MD 230 [place] [address] Primary osteoarthritis of both knees Social History [...] Description 05/03/2025 1:00 PM EST Clinical Support [facility] MEDICINE [address] [place] [address] Amanda Waldrop RN 06/22/2025 12:45 PM EST Office Visit [facility] ADULT DENTAL [address] [place] [address] Pierre Coreyaris [address] [place] [address] 07/05/2025 1:00 PM EST Office Visit [facility] OPTOMETRY [address] [place] [address] Beata [place], OD 230 [place] [address] documented as of this encounter Visit Diagnoses Diagnosis Primary osteoarthritis of both knees documented in this encounter Additional Health Concerns Assessment Noted Time PHQ-9 Depression Total Score: 0 08/22/19 23 10:06 AM EDT documented as of this encounter Care Teams Space Control Agent Relationship Specialty Start Date End Date Kalpana Baptiste MD [address] [place] [address] PCP - General Family Medicine 06/14/20 Betsy Wray RN [address] [place] [address] Registered Nurse Family Medicine 09/28/24 12/30/24 Erika Saldivar 09/28/24 01/10/25 documented as of this encounter
--- OUTSIDE RECORDS SUMMARY | 2025-04-18 02:43 | XMS_ITS | Encounter Summary ---
Author Organization [employer] Address 75 [facility] 7t [place] [address] Care Team Providers Care Set Up Mechanic Coating Machines Name Role Phone Kalpana Baptiste MD Primary Care Provide r Betsy Wray RN Unavailable Unavailable Erika Saldivar Unavailable Reason for Visit * Reason Comments Med Refill Encounter Details Date Type Department Care Team ([facility] st Contact Info) Description 06/27/2023 Refill [facility] MEDICINE 230 [place], [place] [phone] Kalpana Baptiste MD 230 [place] [address] Heartburn Social History Tobacco Use Types Packs/Day [...] Description 05/03/2025 1:00 PM EST Clinical Support [facility] MEDICINE 230 [place] [address] Amanda Waldrop RN 06/22/2025 12:45 PM EST Office Visit [facility] ADULT DENTAL 230 [place] [address] Leora Gloria 230 [place] [address] 07/05/2025 1:00 PM EST Office Visit [facility] OPTOMETRY [address] [place] [address] Jonathon, Beata, OD 230 [place] [address] documented as of this encounter Visit Diagnoses Diagnosis Heartburn documented in this encounter Additional Health Concerns Assessment Noted Time PHQ-9 Depression Total Score: 0 08/22/19 23 10:06 AM EDT documented as of this encounter Care Teams Set Up Mechanic Coating Machines Relationship Specialty Start Date End Date Kalpana Baptiste MD [address] [place] [address] PCP - General Family Medicine 06/14/20 Betsy Wray RN [address] [place] [address] Registered Nurse Family Medicine 09/28/24 12/30/24 Erika Saldivar 09/28/24 01/10/25 documented as of this encounter
--- OUTSIDE RECORDS SUMMARY | 2025-04-18 02:43 | XMS_ITS | Encounter Summary ---
Author Organization [employer] Address 75 [facility] 7t [place] [address] Care Team Providers Care Machine Welt Butter Name Role Phone Kalpana Baptiste MD Primary Care Provide r Betsy Wray RN Unavailable Unavailable Erika Saldivar Unavailable Encounter Details Date Type Department Care Team ([facility] st Contact Info) Description 08/29/2023 Telephone [facility] MEDICINE 230 [place], [place] [phone] Kalpana Baptiste MD 230 [place] [address] Social History Tobacco Use Types Packs/Day Years [...] Description 05/03/2025 1:00 PM EST Clinical Support [facility] MEDICINE [address] [place] [address] Amanda Waldrop RN 06/22/2025 12:45 PM EST Office Visit [facility] ADULT DENTAL [address] [place] [address] Leora Gloria [address] [place] [address] 07/05/2025 1:00 PM EST Office Visit [facility] OPTOMETRY [address] [place] [address] Jonathon, Beata, OD 230 [place] [address] documented as of this encounter Visit Diagnoses Not on filedocumented in this encounter Additional Health Concerns Assessment Noted Time PHQ-9 Depression Total Score: 0 08/22/19 23 10:06 AM EDT documented as of this encounter Care Teams Machine Welt Butter Relationship Specialty Start Date End Date Kalpana Baptiste MD 230 [place] [address] PCP - General Family Medicine 06/14/20 Betsy Wray RN [address] [place] [address] Registered Nurse Family Medicine 09/28/24 12/30/24 Erika Saldivar 09/28/24 01/10/25 documented as of this encounter
--- OUTSIDE RECORDS SUMMARY | 2025-04-18 02:43 | XMS_ITS | Encounter Summary ---
Author Organization [employer] Address 75 [facility] 7t [place] [address] Care Team Providers Care Waiter Name Role Phone Kalpana Baptiste MD Primary Care Provide r Betsy Wray RN Unavailable Unavailable Erika Saldivar Unavailable Reason for Visit * Reason Comments Med Refill Encounter Details Date Type Department Care Team ([facility] Contact Info) Description 08/15/2022 Refill [facility] MEDICINE 230 [place] [address] Marilyn Corral MD 230 [place] [address] Other hyperlipidemia; Allergic rhinitis, unspecified seasonality, unspecified [...] ([facility] Contact Info) Description 05/03/2025 1:00 PM EST Clinical Support [facility] MEDICINE [address] [place] [address] Amanda Waldrop RN 06/22/2025 12:45 PM EST Office Visit [facility] ADULT DENTAL [address] [place] [address] Pierre Coreyaris 230 [place] [address] 07/05/2025 1:00 PM EST Office Visit [facility] OPTOMETRY [address] [place] [address] Jonathon, Beata, OD 230 [place] [address] documented as of this encounter Visit Diagnoses Diagnosis Other hyperlipidemia Allergic rhinitis, unspecified seasonality, unspecified trigger Chronic tension-type headache, not intractable Chronic tension type headache Abdominal pain, epigastric documented in this encounter Care Teams Waiter Relationship Specialty Start Date End Date Kalpana Baptiste MD [address] [place] [address] PCP - General Family Medicine 06/14/20 Betsy Wray RN [address] [place] [address] Registered Nurse Family Medicine 09/28/24 12/30/24 Erika Saldivar 09/28/24 01/10/25 documented as of this encounter
--- OUTSIDE RECORDS SUMMARY | 2025-04-18 02:43 | XMS_ITS | Encounter Summary ---
Author Organization [employer] Address 75 [facility] 7t [place] [address] Care Team Providers Care Candy Vendor Name Role Phone Kalpana Baptiste MD Primary Care Provide r Betsy Wray RN Unavailable Unavailable Erika Saldivar Unavailable Reason for Visit * Reason Comments Med Refill Encounter Details Date Type Department Care Team ([facility] st Contact Info) Description 07/28/2023 Refill [facility] MEDICINE [address] [place], [place] [phone] Kalpana Baptiste MD 230 [place] [address] Moderate persistent asthma without complication; Chronic gout [...] [facility] [address] [place] [address] Amanda Waldrop RN 06/22/2025 12:45 PM EST Office Visit [facility] ADULT DENTAL [address] [place] [address] Leora, Gloria [address] [place] [address] 07/05/2025 1:00 PM EST Office Visit [facility] OPTOMETRY [address] [place] [address] Jonathon, Beata, OD 230 [place] [address] documented as of this encounter Visit Diagnoses Diagnosis Moderate persistent asthma without complication Chronic gout of multiple sites, unspecified cause Primary osteoarthritis of both knees documented in this encounter Additional Health Concerns Assessment Noted Time PHQ-9 Depression Total Score: 0 08/22/19 23 10:06 AM EDT documented as of this encounter Care Teams Candy Vendor Relationship Specialty Start Date End Date Kalpana Baptiste MD 230 [place] [address] PCP - General Family Medicine 06/14/20 Betsy Wray RN 230 [facility] [place] [address] Registered Nurse Family Medicine 09/28/24 12/30/24 Erika Saldivar 09/28/24 01/10/25 documented as of this encounter
--- OUTSIDE RECORDS SUMMARY | 2025-04-18 02:43 | XMS_ITS | Encounter Summary ---
Author Organization [employer] Address 75 [facility] 7t [place] [address] Care Team Providers Care Grill Attendant Name Role Phone Kalpana Baptiste MD Primary Care Provide r Betsy Wray RN Unavailable Unavailable Erika Saldivar Unavailable Reason for Visit * Reason Comments Med Refill Encounter Details Date Type Department Care Team ([facility] st Contact Info) Description 06/30/2023 Refill [facility] MEDICINE 230 [place], [place] [phone] Kalpana Baptiste MD 230 [place] [address] Heartburn Social History Tobacco Use Types Packs/Day [...] Description 05/03/2025 1:00 PM EST Clinical Support [facility] MEDICINE [address] [place] [address] Amanda Waldrop RN 06/22/2025 12:45 PM EST Office Visit [facility] ADULT DENTAL [address] [place] [address] Leora Gloria [address] [place] [address] 07/05/2025 1:00 PM EST Office Visit [facility] OPTOMETRY [address] [place] [address] Jonathon, Beata, OD 230 [place] [address] documented as of this encounter Visit Diagnoses Diagnosis Heartburn documented in this encounter Additional Health Concerns Assessment Noted Time PHQ-9 Depression Total Score: 0 08/22/19 23 10:06 AM EDT documented as of this encounter Care Teams Grill Attendant Relationship Specialty Start Date End Date Kalpana Baptiste MD [address] [place] [address] PCP - General Family Medicine 06/14/20 Betsy Wray RN [address] [place] [address] Registered Nurse Family Medicine 09/28/24 12/30/24 Erika Saldivar 09/28/24 01/10/25 documented as of this encounter
--- OUTSIDE RECORDS SUMMARY | 2025-04-18 02:43 | XMS_ITS | Encounter Summary ---
Author Organization [employer] Address 75 [facility] 7t [place] [address] Care Team Providers Care Work Over Rig Operator Name Role Phone Kalpana Baptiste MD Primary Care Provide r Betsy Wray RN Unavailable Unavailable Erika Saldivar Unavailable Reason for Visit * Reason Comments Med Refill Encounter Details Date Type Department Care Team ([facility] st Contact Info) Description 07/14/[address] [facility] MEDICINE 230 [place], [place] [phone] Caryl Biggs MD 230 [place] [address] Primary osteoarthritis of both knees Social History [...] Description 05/03/2025 1:00 PM EST Clinical Support [facility] MEDICINE [address] [place] [address] Amanda Waldrop RN 06/22/2025 12:45 PM EST Office Visit [facility] ADULT DENTAL [address] [place] [address] Pierre Coreyaris [address] [place] [address] 07/05/2025 1:00 PM EST Office Visit [facility] OPTOMETRY [address] [place] [address] Jonathon, Beata, OD 230 [place] [address] documented as of this encounter Visit Diagnoses Diagnosis Primary osteoarthritis of both knees documented in this encounter Additional Health Concerns Assessment Noted Time PHQ-9 Depression Total Score: 0 08/22/19 23 10:06 AM EDT documented as of this encounter Care Teams Work Over Rig Operator Relationship Specialty Start Date End Date Kalpana Baptiste MD [address] [place] [address] PCP - General Family Medicine 06/14/20 Betsy Wray RN [address] [place] [address] Registered Nurse Family Medicine 09/28/24 12/30/24 Erika Saldivar 09/28/24 01/10/25 documented as of this encounter
--- OUTSIDE RECORDS SUMMARY | 2025-04-18 02:43 | XMS_ITS | Encounter Summary ---
Author Organization [employer] Address 75 [facility] 7t [place] [address] Care Team Providers Care Clarity Developer Name Role Phone Kalpana Baptiste MD Primary Care Provide r Betsy Wray RN Unavailable Unavailable Erika Saldivar Unavailable Reason for Visit * Reason Onset Date Comments Med Refill 07/27/2024 Encounter Details Date Type Department Care Team ([facility] st Contact Info) Description 07/27/2024 Telephone [facility] MEDICINE 230 [place], [place] [phone] Kalpana Baptiste MD 230 [place], [place] [phone] Med Refill Social History Tobacco Use Types [...] 50 MG tablet To be sent to: [facility] - [address] documented in this encounter Plan of Treatment Upcoming Encounters Date Type Department Care Team (Late st Contact Info) Description 05/03/2025 1:00 PM EST Clinical Support [facility] MEDICINE [address] [place] [address] Amanda Waldrop, NEGAR 06/22/2025 12:45 PM EST Office Visit [facility] ADULT DENTAL [address] [place] [address] Gloria Corey [address] [place] [address] 07/05/2025 1:00 PM EST Office Visit [facility] OPTOMETRY [address] [place] [address] Beata [place], OD 230 [place] [address] documented as of this encounter Visit Diagnoses Not on filedocumented in this encounter Additional Health Concerns Assessment Noted Time PHQ-9 Depression Total Score: 0 05/06/19 25 2:15 PM EST documented as of this encounter Care Teams Clarity Developer Relationship Specialty Start Date End Date Kalpana Baptiste MD 230 [place], [place] [phone] PCP - General Family Medicine 06/14/20 Betsy Wray RN 230 [place] [address] Registered Nurse Family Medicine 09/28/24 12/30/24 Erika Saldivar 09/28/24 01/10/25 documented as of this encounter
--- OUTSIDE RECORDS SUMMARY | 2025-04-18 02:43 | XMS_ITS | Encounter Summary ---
Author Organization [employer] Address 75 [facility] 7t [place] [address] Care Team Providers Care President And Chief Operating Officer Name Role Phone Kalpana Baptiste MD Primary Care Provide r Betsy Wray RN Unavailable Unavailable Erika Saldivar Unavailable Reason for Visit * Reason Comments Med Refill Encounter Details Date Type Department Care Team ([facility] st Contact Info) Description 09/15/2023 Refill [facility] MEDICINE 230 [place], [place] [phone] Neida Garrett DO 230 [place] [address] Heartburn Social History Tobacco Use Types Packs/Day [...] Description 05/03/2025 1:00 PM EST Clinical Support [facility] MEDICINE [address] [place] [address] Amanda Waldrop RN 06/22/2025 12:45 PM EST Office Visit [facility] ADULT DENTAL [address] [place] [address] Leora Gloria 230 [place] [address] 07/05/2025 1:00 PM EST Office Visit [facility] OPTOMETRY [address] [place] [address] Jonathon, Beata, OD 230 [place] [address] documented as of this encounter Visit Diagnoses Diagnosis Heartburn documented in this encounter Additional Health Concerns Assessment Noted Time PHQ-9 Depression Total Score: 0 08/22/19 23 10:06 AM EDT documented as of this encounter Care Teams President And Chief Operating Officer Relationship Specialty Start Date End Date Kalpana Baptiste MD [address] [place] [address] PCP - General Family Medicine 06/14/20 Betsy Wray RN [address] [place] [address] Registered Nurse Family Medicine 09/28/24 12/30/24 Erika Saldivar 09/28/24 01/10/25 documented as of this encounter
--- OUTSIDE RECORDS SUMMARY | 2025-04-18 02:43 | XMS_ITS | Encounter Summary ---
Author Organization [employer] Address 75 [facility] 7t [place] [address] Care Team Providers Care Chief Informatics Officer Name Role Phone Kalpana Baptiste MD Primary Care Provide r Betsy Wray RN Unavailable Unavailable Erika Saldivar Unavailable Reason for Visit * Reason Comments Med Refill Encounter Details Date Type Department Care Team ([facility] st Contact Info) Description 07/25/2023 Refill [facility] MEDICINE 230 [place], [place] [phone] Kalpana Baptiste MD 230 [place] [address] Chronic gout of multiple sites, unspecified cause; [...] Support [facility] MEDICINE [address] [place] [address] Amanda Waldrop RN 06/22/2025 12:45 PM EST Office Visit [facility] ADULT DENTAL [address] [place] [address] Leora, Gloria [address] [place] [address] 07/05/2025 1:00 PM EST Office Visit [facility] OPTOMETRY [address] [place] [address] Jonathon, Beata, OD 230 [place] [address] documented as of this encounter Visit Diagnoses Diagnosis Chronic gout of multiple sites, unspecified cause Primary osteoarthritis of both knees Moderate persistent asthma without complication documented in this encounter Additional Health Concerns Assessment Noted Time PHQ-9 Depression Total Score: 0 08/22/19 23 10:06 AM EDT documented as of this encounter Care Teams Chief Informatics Officer Relationship Specialty Start Date End Date Kalpana Baptiste MD 230 [place] [address] PCP - General Family Medicine 06/14/20 Betsy Wray RN [address] [facility] [place] [address] Registered Nurse Family Medicine 09/28/24 12/30/24 Erika Saldivar 09/28/24 01/10/25 documented as of this encounter
--- OUTSIDE RECORDS SUMMARY | 2025-04-18 02:44 | XMS_ITS | Encounter Summary ---
Author Organization [employer] Address [address] [facility] 7t [place] [address] Care Team Providers Care Quality Eng Name Role Phone Kalpana Baptiste MD Primary Care Provide r Betsy Wray RN Unavailable Unavailable Erika Saldivar Unavailable Reason for Visit * Reason Comments Med Refill Encounter Details Date Type Department Care Team ([facility] st Contact Info) Description 12/22/2024 Refill [facility] MEDICINE [address] [place], [place] [phone] Kalpana Baptiste MD [address] [place], [place] [phone] Chronic tension-type headache, not intractable Social History [...] the past 12 months, has t he [employer], gas, oil or water company threatened to [...] PM EST Clinical Support [facility] MEDICINE [address] [place] [address] Amanda Waldrop RN 06/22/2025 12:45 PM EST Office Visit [facility] ADULT DENTAL [address] [place] [address] Gloria Corey [address] [place] [address] 07/05/2025 1:00 PM EST Office Visit [facility] OPTOMETRY [address] [place] [address] Beata Holt, OD [address] [place], [place] [phone] documented as of this encounter Visit Diagnoses Diagnosis Chronic tension-type headache, not intractable Chronic tension type headache documented in this encounter Additional Health Concerns Assessment Noted Time PHQ-9 Depression Total Score: 0 10/16/19 3:24 PM EDT documented as of this encounter Care Teams Quality Eng Relationship Specialty Start Date End Date Kalpana Baptiste MD [address] [place], [place] [phone] PCP - General Family Medicine 06/14/20 Betsy Wray RN [address] [place] [address] Registered Nurse Family Medicine 09/28/24 12/30/24 Erika Saldivar 09/28/24 01/10/25 documented as of this encounter
--- OUTSIDE RECORDS SUMMARY | 2025-04-18 02:44 | XMS_ITS | Encounter Summary ---
Author Organization [employer] Address [address] [facility] 7t [place] [address] Care Team Providers Care Waxer Operator Name Role Phone Kalpana Baptiste MD Primary Care Provide r Betsy Wray RN Unavailable Unavailable Erika Saldivar Unavailable Reason for Visit * Reason Comments Med Refill Encounter Details Date Type Department Care Team ([facility] st Contact Info) Description 11/10/2023 Refill [facility] MEDICINE [address] [place], [place] [phone] Kalpana Baptiste MD [address] [place], [place] [phone] Social History Tobacco Use Types Packs/Day Years [...] Clinical Support [facility] MEDICINE [address] [place] [address] Amanda Waldrop RN 06/22/2025 12:45 PM EST Office Visit [facility] ADULT DENTAL [address] [place] [address] Leora Gloria [address] [place] [address] 07/05/2025 1:00 PM EST Office Visit [facility] OPTOMETRY [address] [place] [address] Jonathon, Beata, OD [address] [place] [address] documented as of this encounter Visit Diagnoses Not on filedocumented in this encounter Additional Health Concerns Assessment Noted Time PHQ-9 Depression Total Score: 0 08/22/19 23 10:06 AM EDT documented as of this encounter Care Teams Waxer Operator Relationship Specialty Start Date End Date Kalpana Baptiste MD [address] [place] [phone] PCP - General Family Medicine 06/14/20 Betsy Wray RN [address] [place] [phone] Registered Nurse Family Medicine 09/28/24 12/30/24 Erika Saldivar 09/28/24 01/10/25 documented as of this encounter
--- OUTSIDE RECORDS SUMMARY | 2025-04-18 02:44 | XMS_ITS | Encounter Summary ---
Author Organization [employer] Address [address] [facility] [address] 7t [place] [address] Care Team Providers Care Mixer Blender Name Role Phone Kalpana Baptiste MD Primary Care Provide r Reason for Visit * Reason Comments Med Refill Encounter Details Date Type Department Care Team ([facility] st Contact Info) Description 04/06/2025 Refill [facility] MEDICINE [address] [place], [place] [phone] Kalpana Baptiste MD [address] [place] [address] Primary osteoarthritis of both knees Social History [...] 1:00 PM EST Clinical Support [facility] MEDICINE [address] [place] [address] Amanda Waldrop, NEGAR 06/22/2025 12:45 PM EST Office Visit [facility] ADULT DENTAL [address] [place] [address] Gloria Corey [address] [place] [address] 07/05/2025 1:00 PM EST Office Visit [facility] OPTOMETRY [address] [place] [address] Beata Holt, OD [address] [place] [address] documented as of this encounter Goals Goal Patient Goal Type Associated Problems Recent Progress Patient-Stated? Author Help patients manage their type 2 diabetes Care Plan Help patients manage their type 2 diabetes No Eliazar Mohr Weekly blood pressure task Care Plan Weekly blood pressure task No Onur, Eliazar Help patients manage their type 2 diabetes Care Plan Help patients manage their type 2 diabetes No Mohr, Eliazar Patient has chronic kidney disease Care Plan Patient has chronic kidney disease No Mohr, Eliazar Help patients manage their type 2 diabetes Care Plan Help patients manage their type 2 diabetes No Onur, Eliazar Patient has diabetic neuropathy Care Plan Patient has diabetic neuropathy No Onur, Eliazar Weekly blood pressure task Care Plan Weekly blood pressure task No Mohr, Eliazar Weekly blood pressure task Care Plan Weekly blood pressure task No Eliazar Mohr Patient has chronic kidney disease Care Plan Patient has chronic kidney disease No Eliazar Mohr Patient has chronic kidney disease Care Plan Patient has chronic kidney disease No Eliazar Mohr Patient has diabetic neuropathy Care Plan Patient has diabetic neuropathy No Mohr, Eliazar Patient has diabetic neuropathy Care Plan Patient has diabetic neuropathy No Onur, Eliazar Weekly blood pressure task Care Plan Weekly blood pressure task No Mohr, Eliazar Weekly blood pressure task Care Plan Weekly blood pressure task No Mohr, Eliazar Weekly blood pressure task Care Plan Weekly blood pressure task No Eliazar Mohr Patient has chronic kidney disease Care Plan Patient has chronic kidney disease No Eliazar Mohr Patient has chronic kidney disease Care Plan Patient has chronic kidney disease No Eliazar Mohr Patient has chronic kidney disease Care Plan Patient has chronic kidney disease No Onur Eliazar Patient has diabetic neuropathy Care Plan Patient has diabetic neuropathy No Onur, Eliazar Patient has diabetic neuropathy Care Plan Patient has diabetic neuropathy No Onur, Eliazar Patient has diabetic neuropathy Care Plan Patient has diabetic neuropathy No Eliazar Mohr Weekly blood pressure task Care Plan Weekly blood pressure task No Kalpana Baptiste MD Weekly blood pressure task Care Plan Weekly blood pressure task No Kalpana Baptiste MD Weekly blood pressure task Care Plan Weekly blood pressure task No Kalpana Baptiste MD Patient has chronic kidney disease Care Plan Patient has chronic kidney disease No Kalpana Baptiste MD Patient has chronic kidney disease Care Plan Patient has chronic kidney disease No Kalpana Baptiste MD Patient has chronic kidney disease Care Plan Patient has chronic kidney disease No Kalpana Baptiste MD Patient has diabetic neuropathy Care Plan Patient has diabetic neuropathy No Kalpana Baptiste MD Patient has diabetic neuropathy Care Plan Patient has diabetic neuropathy No Kalpana Baptiste MD Patient has diabetic neuropathy Care Plan Patient has diabetic neuropathy No Kalpana Baptiste MD Weekly blood pressure task Care Plan Weekly blood pressure task No Amanda Waldrop RN Weekly blood pressure task Care Plan Weekly blood pressure task No Amanda Waldrop RN Weekly blood pressure task Care Plan Weekly blood pressure task No Amanda Waldrop RN Patient has chronic kidney disease Care Plan Patient has chronic kidney disease No Amanda Waldrop RN Patient has chronic kidney disease Care Plan Patient has chronic kidney disease No Amanda Waldrop RN Patient has chronic kidney disease Care Plan Patient has chronic kidney disease No Amanda Waldrop RN Patient has diabetic neuropathy Care Plan Patient has diabetic neuropathy No Amanda Waldrop RN Patient has diabetic neuropathy Care Plan Patient has diabetic neuropathy No Amanda Waldrop RN Patient has diabetic neuropathy Care Plan Patient has diabetic neuropathy No Amanda Waldrop RN documented as of this encounter Visit Diagnoses Diagnosis Primary osteoarthritis of both knees documented in this encounter Additional Health Concerns Active Problems Noted Date Diagnosed Date Help patients manage their type 2 diabetes 03/16 Weekly blood pressure task 03/16/2025 Help patients manage their type 2 diabetes 03/16 Patient has chronic kidney disease 03/16/2025 Help patients manage their type 2 diabetes 03/16 Patient has diabetic neuropathy 03/16/2025 Weekly blood pressure task 03/16/2025 Weekly blood pressure task 03/16/2025 Patient has chronic kidney disease 03/16/2025 Patient has chronic kidney disease 03/16/2025 Patient has diabetic neuropathy 03/16/2025 Patient has diabetic neuropathy 03/16/2025 Weekly blood pressure task 03/16/2025 Weekly blood pressure task 03/16/2025 Weekly blood pressure task 03/16/2025 Patient has chronic kidney disease 03/16/2025 Patient has chronic kidney disease 03/16/2025 Patient has chronic kidney disease 03/16/2025 Patient has diabetic neuropathy 03/16/2025 Patient has diabetic neuropathy 03/16/2025 Patient has diabetic neuropathy 03/16/2025 Weekly blood pressure task 03/22/2025 Weekly blood pressure task 03/22/2025 Weekly blood pressure task 03/22/2025 Patient has chronic kidney disease 03/22/2025 Patient has chronic kidney disease 03/22/2025 Patient has chronic kidney disease 03/22/2025 Patient has diabetic neuropathy 03/22/2025 Patient has diabetic neuropathy 03/22/2025 Patient has diabetic neuropathy 03/22/2025 Weekly blood pressure task 04/05/2025 Weekly blood pressure task 04/05/2025 Weekly blood pressure task 04/05/2025 Patient has chronic kidney disease 04/05/2025 Patient has chronic kidney disease 04/05/2025 Patient has chronic kidney disease 04/05/2025 Patient has diabetic neuropathy 04/05/2025 Patient has diabetic neuropathy 04/05/2025 Patient has diabetic neuropathy 04/05/2025 Assessment Noted Time PHQ-9 Depression Total Score: 0 10/16/19 25 3:24 PM EDT documented as of this encounter Care Teams Mixer Blender Relationship Specialty Start Date End Date Kalpana Baptiste MD [address] [place] [phone] PCP - General Family Medicine 06/14/20 documented as of this encounter
--- OUTSIDE RECORDS SUMMARY | 2025-04-18 02:44 | XMS_ITS | Encounter Summary ---
Author Organization [employer] Address [address] [facility] 7t [place] [address] Care Team Providers Care Program Project Analyst Name Role Phone Kalpana Baptiste MD Primary Care Provide r Reason for Visit * Reason Onset Date Comments Med Refill 04/14/2025 Encounter Details Date Type Department Care Team ([facility] st Contact Info) Description 04/14/2025 Refill [facility] MEDICINE [address] [place], [place] [phone] Kalpana Baptiste MD [address] [place] [address] Overactive bladder Social History Tobacco Use Types [...] Telephone Encounter - Neida Bower LPN - 04/15/2025 7:57 AM EST Last seen 01/28/25. * Telephone Encounter - Terri Perez - 04/14/2025 4:36 PM EST TC from pt requesting medication refill. Medications needing refill : tolterodine LA (Detrol LA) 4 MG 24 hr capsule naloxone (Narcan) 4 mg/0.1 mL nasal spray To be sent to: [facility] - [place], [place] - [address] [place] [address] documented in this encounter Plan of Treatment Upcoming Encounters Date Type Department Care Team (Late st Contact Info) Description 05/03/2025 1:00 PM EST Clinical Support [facility] MEDICINE [address] [place] [address] Amanda Waldrop RN 06/22/2025 12:45 PM EST Office Visit [facility] ADULT DENTAL [address] [place] [address] Leora Gloria [address] [place] [address] 07/05/2025 1:00 PM EST Office Visit [facility] OPTOMETRY [address] [place] [address] Jonathon, Beata, OD [address] [place] [address] documented as of this encounter Goals Goal Patient Goal Type Associated Problems Recent Progress Patient-Stated? Author Help patients manage their type 2 diabetes Care Plan Help patients manage their type 2 diabetes No Eliazar Mohr Weekly blood pressure task Care Plan Weekly blood pressure task No Eliazar Mohr Help patients manage their type 2 diabetes Care Plan Help patients manage their type 2 diabetes No Eliazar Mohr Patient has chronic kidney disease Care Plan Patient has chronic kidney disease No Eliazar Mohr Help patients manage their type 2 diabetes Care Plan Help patients manage their type 2 diabetes No Eliazar Mohr Patient has diabetic neuropathy Care Plan Patient has diabetic neuropathy No Eliazar Mohr Weekly blood pressure task Care Plan Weekly blood pressure task No Eliazar Mohr Weekly blood pressure task Care Plan Weekly blood pressure task No Eliazar Mohr Patient has chronic kidney disease Care Plan Patient has chronic kidney disease No Eliazar Mohr Patient has chronic kidney disease Care Plan Patient has chronic kidney disease No Eliazar Mohr Patient has diabetic neuropathy Care Plan Patient has diabetic neuropathy No Eliazar Mohr Patient has diabetic neuropathy Care Plan Patient has diabetic neuropathy No Eliazar Mohr Weekly blood pressure task Care Plan Weekly blood pressure task No Eliazar Mohr Weekly blood pressure task Care Plan Weekly blood pressure task No Eliazar Mohr Weekly blood pressure task Care Plan Weekly blood pressure task No Mohr, Eliazar Patient has chronic kidney disease Care Plan Patient has chronic kidney disease No Mohr, Eliazar Patient has chronic kidney disease Care Plan Patient has chronic kidney disease No Mohr, Eliazar Patient has chronic kidney disease Care Plan Patient has chronic kidney disease No Onur, Eliazar Patient has diabetic neuropathy [...] Patient has chronic kidney disease No Amanda aWldrop RN Patient has diabetic neuropathy Care Plan Patient has diabetic neuropathy No Amanda Waldrop RN Patient has diabetic neuropathy Care Plan Patient has diabetic neuropathy No Amanda Waldrop RN Patient has diabetic neuropathy Care Plan Patient has diabetic neuropathy No Amanda Waldrop RN Weekly blood pressure task Care Plan Weekly blood pressure task No Silvana Bowerfer, INDUSTRIAL MAINTENANCE MILLWRIGHT Weekly blood pressure task Care Plan Weekly blood pressure task No SathishVidhyaNeida, INDUSTRIAL MAINTENANCE MILLWRIGHT Weekly blood pressure task Care Plan Weekly blood pressure task No SathishVidhyaNeida, INDUSTRIAL MAINTENANCE MILLWRIGHT Patient has chronic kidney disease Care Plan Patient has chronic kidney disease No Sathish Neida, INDUSTRIAL MAINTENANCE MILLWRIGHT Patient has chronic kidney disease Care Plan Patient has chronic kidney disease No SathishVidhyaNeida, INDUSTRIAL MAINTENANCE MILLWRIGHT Patient has chronic kidney disease Care Plan Patient has chronic kidney disease No SathishVidhyaNeida, INDUSTRIAL MAINTENANCE MILLWRIGHT Patient has diabetic neuropathy Care Plan Patient has diabetic neuropathy No SathishVidhyaNeida, INDUSTRIAL MAINTENANCE MILLWRIGHT Patient has diabetic neuropathy Care Plan Patient has diabetic neuropathy No SathishVidhyaNeida, INDUSTRIAL MAINTENANCE MILLWRIGHT Patient has diabetic neuropathy Care Plan Patient has diabetic neuropathy No SathishNeida INDUSTRIAL MAINTENANCE MILLWRIGHT Weekly blood pressure task Care Plan Weekly blood pressure task No Mohr, Eliazar Weekly blood pressure task Care Plan Weekly blood pressure task No Mohr, Eliazar Weekly blood pressure task Care Plan Weekly blood pressure task No Onur Eliazar Patient has chronic kidney disease Care Plan Patient has chronic kidney disease No Onur, Eliazar Patient has chronic kidney disease Care Plan Patient has chronic kidney disease No Mohr, Eliazar Patient has chronic kidney disease Care Plan Patient has chronic kidney disease No Onur Eliazar Patient has diabetic neuropathy Care Plan Patient has diabetic neuropathy No Onur Eliazar Patient has diabetic neuropathy Care Plan Patient has diabetic neuropathy No Onur Eliazar Patient has diabetic neuropathy Care Plan Patient has diabetic neuropathy No Onur Eliazar Weekly blood pressure task Care Plan Weekly blood pressure task No Terri Perez Weekly blood pressure task Care Plan Weekly blood pressure task No Terri ePrez Weekly blood pressure task Care Plan Weekly blood pressure task No Terri Perez Patient has chronic kidney disease Care Plan Patient has chronic kidney disease No Terri Perez Patient has chronic kidney disease Care Plan Patient has chronic kidney disease No Terri Perez Patient has chronic kidney disease Care Plan Patient has chronic kidney disease No Terri Perez Patient has diabetic neuropathy Care Plan Patient has diabetic neuropathy No Terri Perez Patient has diabetic neuropathy Care Plan Patient has diabetic neuropathy No Terri Perez Patient has diabetic neuropathy Care Plan Patient has diabetic neuropathy No Terri Perez documented as of this encounter Visit Diagnoses [...] neuropathy 04/05/2025 Patient has diabetic neuropathy 04/05/2025 Weekly blood pressure task 04/07/2025 Weekly blood pressure task 04/07/2025 Weekly blood pressure task 04/07/2025 Patient has chronic kidney disease 04/07/2025 Patient has chronic kidney disease 04/07/2025 Patient has chronic kidney disease 04/07/2025 Patient has diabetic neuropathy 04/07/2025 Patient has diabetic neuropathy 04/07/2025 Patient has diabetic neuropathy 04/07/2025 Weekly blood pressure task 04/11/2025 Weekly blood pressure task 04/11/2025 Weekly blood pressure task 04/11/2025 Patient has chronic kidney disease 04/11/2025 Patient has chronic kidney disease 04/11/2025 Patient has chronic kidney disease 04/11/2025 Patient has diabetic neuropathy 04/11/2025 Patient has diabetic neuropathy 04/11/2025 Patient has diabetic neuropathy 04/11/2025 Weekly blood pressure task 04/14/2025 Weekly blood pressure task 04/14/2025 Weekly blood pressure task 04/14/2025 Patient has chronic kidney disease 04/14/2025 Patient has chronic kidney disease 04/14/2025 Patient has chronic kidney disease 04/14/2025 Patient has diabetic neuropathy 04/14/2025 Patient has diabetic neuropathy 04/14/2025 Patient has diabetic neuropathy 04/14/2025 Assessment Noted Time PHQ-9 Depression Total Score: 0 10/16/19 25 3:24 PM EDT documented as of this encounter Care Teams Program Project Analyst Relationship Specialty Start Date End Date Kalpana Baptiste MD [address] [place] [id number] PCP - General Family Medicine 06/14/20 documented as of this encounter
--- OUTSIDE RECORDS SUMMARY | 2025-04-18 02:44 | XMS_ITS | Encounter Summary ---
Author Organization [employer] Address [address] [facility] [address] 7[address] [place] [address] Care Team Providers Care Long Term Care Administrator Name Role Phone Kalpana Baptiste MD Primary Care Provide r Encounter Details Date Type Department Care Team ([facility] st Contact Info) Description 02/09/2025 Orders Only [facility] MEDICINE [address] [place], [place] [phone] Kalpana Baptiste MD [address] [place], [place] [phone] Social History Tobacco Use Types Packs/Day Years [...] Description 05/03/2025 1:00 PM EST Clinical Support [facility] MEDICINE [address] [place] [address] Amanda Waldrop RN 06/22/2025 12:45 PM EST Office Visit [facility] ADULT DENTAL [address] [place], [place] [phone] Gloria Corey [address] [place] [address] 07/05/2025 1:00 PM EST Office Visit [facility] OPTOMETRY [address] [place], [place] [phone] Beata Holt, OD [address] [place] [address] documented as of this encounter Visit Diagnoses Not on filedocumented in this encounter Additional Health Concerns Assessment Noted Time PHQ-9 Depression Total Score: 0 10/16/19 25 3:24 PM EDT documented as of this encounter Care Teams Long Term Care Administrator Relationship Specialty Start Date End Date Kalpana Baptiste MD [address] [place] [address] PCP - General Family Medicine 06/14/20 documented as of this encounter
--- OUTSIDE RECORDS SUMMARY | 2025-04-18 02:44 | XMS_ITS | Encounter Summary ---
Author Organization [employer] Address [address] [facility] 7t [place] [address] Care Team Providers Care Crop Setting Out Machine Operator Name Role Phone Kalpana Baptiste MD Primary Care Provide r Reason for Visit * Reason Onset Date Comments Med Refill 03/16/2025 Encounter Details Date Type Department Care Team ([facility] Contact Info) Description 03/16/2025 Telephone [facility] MEDICINE [address] [place], [place] [phone] Kalpana Baptiste MD [address] [place] [address] Med Refill Social History Tobacco Use Types [...] Telephone Encounter - Neida Bower LPN - 03/16/2025 3:46 PM EST Script was sent to [facility] on 03/10/25 90 day supply with 3 refills. * Telephone Encounter - Eliazar Mohr - 03/16/2025 3:41 PM EST TC from pt requesting medication refill. Medications needing refill : fluticasone (Flonase) 50 MCG/ACT nasal spray (Discontinued) To be sent to: [facility] - [place], [place] - [address] [facility] documented in this encounter Plan of Treatment Upcoming Encounters Date Type Department Care Team (Late st Contact Info) Description 05/03/2025 1:00 PM EST Clinical Support [facility] MEDICINE [address] [place] [address] Amanda Waldrop RN 06/22/2025 12:45 PM EST Office Visit [facility] ADULT DENTAL [address] [place] [address] Leora, Gloria [address] [place] [address] 07/05/2025 1:00 PM EST Office Visit [facility] OPTOMETRY [address] [place] [address] Jonathon, Beata, OD [address] [place] [address] documented as of this encounter Goals Goal [...] kidney disease No Mohr, Eliazar Patient has diabetic neuropathy Care Plan Patient has diabetic neuropathy No Mohr, Eliazar Patient has diabetic neuropathy Care Plan Patient has diabetic neuropathy No Mohr, Eliazar Patient has diabetic neuropathy Care Plan Patient has diabetic neuropathy No Eliazar Mohr documented as of this encounter Visit Diagnoses Not on filedocumented in this encounter Additional Health Concerns Active [...] neuropathy 03/16/2025 Patient has diabetic neuropathy 03/16/2025 Assessment Noted Time PHQ-9 Depression Total Score: 0 10/16/19 25 3:24 PM EDT documented as of this encounter Care Teams Crop Setting Out Machine Operator Relationship Specialty Start Date End Date Kalpana Baptiste MD [address] [place] [id number] PCP - General Family Medicine 06/14/20 documented as of this encounter
--- OUTSIDE RECORDS SUMMARY | 2025-04-18 02:44 | XMS_ITS ---
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 No medications schedul ed. No medications scheduled. Past Treatment and Therapy Plans
--- OUTSIDE RECORDS SUMMARY | 2025-04-18 02:44 | XMS_ITS | Data Portability ---
Author Organization [place] [facility], Allergy Address [address] [facility] 100 [place] [address] Assessment Encounter Date Assessment Date Assessment LastModified [...] 0.1 % eye drops,suspe nsion 2024 025 [facility]Pharmacy #[id number], [address] [place], [address], 10:13:58 Patient TargetsNo targets recorded. Patient InstructionsNo [...] Recorded Time Disorder of left Eustachian tube [id number] 109 Active 2024 VANE EMANUEL, AUD [address] [facility],[address] [address], [place], [address], [facility] - 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 5 09:42:07 Granulation s on tympanic membrane 096609521 Active 2024 ANKUSH CARRION MD [address] [facility],[address] [address], [place], [address], [facility] 5 10:13:26 Problem Notes None recorded. Procedures Surgical History Date Name Laterality Status Provider Name and Address Organization Details Recorded Time 06/07/2024 Comp Audio with Tymps - 63917 & 28886 completed VANE EMANUEL, [facility] [address] [facility],[address], [address], [facility] 06/07/2024 09:35:44 Imaging Results None recorded. Procedure Notes None recorded. Medical Equipment None Reported. Allergies Allergen ID Allergen Name Allergen Category Reaction Reaction Severity Criticality Documentation Date Start Date Code Code System Note Provider Name and Address Organization Details Recorded Time 606679 aspirin medicatio n Not available Not available Not available 06/07/2024 1191 RxNorm Suzette mathew [place] [facility] 5 09:58:34 481004 Product containin g penicilli n (product) medicatio n Not available Not available Not available 06/07/2024 07006 8001 SNOMED Suzette mathew [place] [facility] 5 09:58:43 Medications Name Sig Start Date Stop [...] Not Available Not Available No t Available FreeStyle Ripplemead Lite kit USE TEST BLOOD SUGAR TWICE [...] Updated DateTime 06/07/2024 170.18 cm 37.3 kg/m2 739264.98 g Suzette Dunlap [place] - [facility] 06/07/2024 09:58:20 Social History None recorded. [...] Diagnosis SNOMED-CT Code Diagnosis ICD10 Code Diagnosis IMO Codes Diagnosis Note [id number] ANKUSH CARRION MD [facility] [address] [address] 06/07/2024 09:23:18 06/07/2024 10:19:54 Disorder of left Eustachian tube [id number] 619290 H69.92 Right Ear:Mild SNHL with good speech discrimina tion.Type A tympanogra m.Left Ear:Mild to severe MHL with good speech discrimina tion.Type B tympanogra m. Mixed cond uctive and sensorineural hearing loss of left ear [id number] 9107 H90.A32 Granulatio ns on tympanic membrane 770794223 H73.899 Health Concerns Section Related Observation LastModified by Organization Detai ls LastModified Time None Recorded Concern Status LastModified by Organization Details LastModified Time None Recorded Advance Directives Directive None Recorded Payers Insurance Date Sequence Insurance Name Policy Number Policy [place] Covered Member ID [place] Member ID Guarantor Name 07/01/2024 1 [place] Santa Kate Colon [id number] Santakhang Kate Notes Date Note Type Note Provider Name [...] no sinus infections lately ANKUSH CARRION MD [address] [place] [address], [id number], [place] - [facility] 06/17/2024 09:20:04 OBGyn Episode No OBEpisode recorded.
--- OUTSIDE RECORDS SUMMARY | 2025-04-18 02:44 | XMS_ITS | Encounter Summary ---
Author Organization [employer] Address 75 [facility] 7t [place] [address] Care Team Providers Care Gericare Aide Teacher Name Role Phone Kalpana Baptiste MD Primary Care Provide r Betsy Wray RN Unavailable Unavailable Erika Saldivar Unavailable Reason for Visit * Reason Comments Med Refill Encounter Details Date Type Department Care Team ([facility] st Contact Info) Description 02/04/2024 Refill [facility] MED[facility] 230 [place], [place] [phone] Caryl Biggs MD 230 [place] [address] Social History Tobacco Use Types Packs/Day Years [...] Description 05/03/2025 1:00 PM EST Clinical Support [facility] 230 [place] [address] Amanda Waldrop RN 06/22/2025 12:45 PM EST Office Visit [facility] ADULT DENTAL 230 [place] [address] Leora Gloria 230 [place] [address] 07/05/2025 1:00 PM EST Office Visit [facility] OPTOMETRY [address] [place] [address] Jonathon, Beata, OD 230 [place] [address] documented as of this encounter Visit Diagnoses Not on filedocumented in this encounter Additional Health Concerns Assessment Noted Time PHQ-9 Depression Total Score: 0 08/22/19 23 10:06 AM EDT documented as of this encounter Care Teams Gericare Aide Teacher Relationship Specialty Start Date End Date Kalpana Baptiste MD [address] [place] [address] PCP - General Family Medicine 06/14/20 Betsy Wray RN [address] [place] [address] Registered Nurse Family Medicine 09/28/24 12/30/24 Erika Saldivar 09/28/24 01/10/25 documented as of this encounter
--- OUTSIDE RECORDS SUMMARY | 2025-04-18 02:44 | XMS_ITS | Encounter Summary ---
Author Organization [employer] Address 75 [facility] 7t [place] [address] Care Team Providers Care Mold Designer Name Role Phone Kalpana Baptiste MD Primary Care Provide r Betsy Wray RN Unavailable Unavailable Erika Saldivar Unavailable Reason for Visit * Reason Comments Med Refill Encounter Details Date Type Department Care Team ([facility] st Contact Info) Description 12/26/2023 Refill [facility] 230 [place], [place] [phone] Kalpana Baptiste MD 230 [place] [address] Other hyperlipidemia; Chronic gout of multiple sites, [...] 05/03/2025 1:00 PM EST Clinical Support [facility] 230 [place] [address] Amanda Waldrop RN 06/22/2025 12:45 PM EST Office Visit [facility] ADULT DENTAL 230 [place] [address] Gloria Corey [address] [place] [address] 07/05/2025 1:00 PM EST Office Visit [facility] OPT[facility] [address] [place] [address] Jonathon, Beata, OD 230 [place] [address] documented as of this encounter Visit Diagnoses Diagnosis Other hyperlipidemia Chronic gout of multiple sites, unspecified cause Abdominal pain, epigastric Allergic rhinitis, unspecified seasonality, unspecified trigger Moderate persistent asthma without complication documented in this encounter Additional Health Concerns Assessment Noted Time PHQ-9 Depression Total Score: 0 08/22/19 23 10:06 AM EDT documented as of this encounter Care Teams Mold Designer Relationship Specialty Start Date End Date Kalpana Baptiste MD 230 [place] [address] PCP - General Family Medicine 06/14/20 Betsy Wray RN [address] [place] [address] Registered Nurse Family Medicine 09/28/24 12/30/24 Erika Saldivar 09/28/24 01/10/25 documented as of this encounter
--- OUTSIDE RECORDS SUMMARY | 2025-04-18 02:44 | XMS_ITS | Encounter Summary ---
Author Organization [employer] Address 75 [facility] 7t [place] [address] Care Team Providers Care Director Law Enforcement Name Role Phone Kalpana Baptiste MD Primary Care Provide r Betsy Wray RN Unavailable Unavailable Erika Saldivar Unavailable Reason for Visit * Reason Comments Med Refill Encounter Details Date Type Department Care Team ([facility] st Contact Info) Description 12/23/[address] [facility] MEDICINE 230 [place], [place] [phone] Kalpana Baptiste MD 230 [place], [place] [phone] Primary osteoarthritis of both knees Social History [...] the past 12 months, has t he [employer], gas, oil or water company threatened to [...] Support [facility] MEDICINE 230 [place] [address] Amanda Waldrop RN 06/22/2025 12:45 PM EST Office Visit [facility] ADULT DENTAL 230 [place] [address] Gloria Corey 230 [place] [address] 07/05/2025 1:00 PM EST Office Visit [facility] OPTOMETRY [address] [place], [place] [phone] JonathonBeata, OD 230 [place], [place] [phone] documented as of this encounter Visit Diagnoses Diagnosis Primary osteoarthritis of both knees documented in this encounter Additional Health Concerns Assessment Noted Time PHQ-9 Depression Total Score: 0 10/16/19 25 3:24 PM EDT documented as of this encounter Care Teams Director Law Enforcement Relationship Specialty Start Date End Date Kalpana Baptiste MD 230 [place], [place] [phone] PCP - General Family Medicine 06/14/20 Betsy Wray RN 230 [place] [address] Registered Nurse Family Medicine 09/28/24 12/30/24 Erika Saldivar 09/28/24 01/10/25 documented as of this encounter
--- OUTSIDE RECORDS SUMMARY | 2025-04-18 02:44 | XMS_ITS | Encounter Summary ---
Author Organization [employer] Address 75 [facility] 7t [place] [address] Care Team Providers Care Telephony Engineer Name Role Phone Kalpana Baptiste MD Primary Care Provide r Betsy Wray RN Unavailable Unavailable Erika Saldivar Unavailable Reason for Visit * Reason Comments Med Refill Encounter Details Date Type Department Care Team (Late Contact Info) Description 12/13/2022 Refill [facility] MEDICINE [address] [place] [phone] Kalpana Baptiste MD [address] [place] [address] [phone] Primary osteoarthritis of both knees Social History [...] [facility] MED[facility] [address] [place] [address] Amanda Waldrop RN 06/22/2025 12:45 PM EST Office Visit [facility] ADULT DENTAL 230 [place] [address] Pierre Coreyaris 230 [place] [address] 07/05/2025 1:00 PM EST Office Visit [facility] OPTOMETRY [address] [place] [address] Beata Holt, OD 230 [place] [address] documented as of this encounter Visit Diagnoses Diagnosis Primary osteoarthritis of both knees documented in this encounter Additional Health Concerns Assessment Noted Time PHQ-9 Depression Total Score: 0 08/22/19 23 10:06 AM EDT documented as of this encounter Care Teams Telephony Engineer Relationship Specialty Start Date End Date Kalpana Baptiste MD 230 [place], [place] [phone] PCP - General Family Medicine 06/14/20 Betsy Wray RN 230 [place] [address] Registered Nurse Family Medicine 09/28/24 12/30/24 Erika Saldivar 09/28/24 01/10/25 documented as of this encounter
--- OUTSIDE RECORDS SUMMARY | 2025-04-18 02:44 | XMS_ITS | Encounter Summary ---
Author Organization [employer] Address 75 [facility] 7t [place] [address] Care Team Providers Care Malt House Loader Name Role Phone Kalpana Baptiste MD Primary Care Provide r Betsy Wray RN Unavailable Unavailable Erika Saldivar Unavailable Reason for Visit * Reason Comments Med Refill Encounter Details Date Type Department Care Team ([facility] st Contact Info) Description 02/12/2024 Refill [facility] MEDICINE 230 [place], [place] [phone] Caryl Biggs MD 230 [place] [address] Primary osteoarthritis of both knees Social History [...] 05/03/2025 1:00 PM EST Clinical Support [facility] MED[facility] 230 [place] [address] Amanda Waldrop RN 06/22/2025 12:45 PM EST Office Visit [facility] ADULT DENTAL [address] [place] [address] Pierre Coreyaris 230 [place] [address] 07/05/2025 1:00 PM EST Office Visit [facility] OPTOMETRY [address] [place] [address] Jonathon, Beata, OD 230 [place] [address] documented as of this encounter Visit Diagnoses Diagnosis Primary osteoarthritis of both knees documented in this encounter Additional Health Concerns Assessment Noted Time PHQ-9 Depression Total Score: 0 08/22/19 23 10:06 AM EDT documented as of this encounter Care Teams Malt House Loader Relationship Specialty Start Date End Date Kalpana Baptiste MD [address] [place] [address] PCP - General Family Medicine 06/14/20 Betsy Wray RN [address] [place] [address] Registered Nurse Family Medicine 09/28/24 12/30/24 Erika Saldivar 09/28/24 01/10/25 documented as of this encounter
--- OUTSIDE RECORDS SUMMARY | 2025-04-18 02:44 | XMS_ITS | Encounter Summary ---
Author Organization [employer] Address 75 [facility] 7t [place] [address] Care Team Providers Care Television Agent Name Role Phone Kalpana Baptiste MD Primary Care Provide r Betsy Wray RN Unavailable Unavailable Erika Saldivar Unavailable Reason for Visit * Reason Comments Med Refill Encounter Details Date Type Department Care Team ([facility] Contact Info) Description 10/04/2022 Refill [facility] MEDICINE [address] [place] [address] [phone] Marilyn Corral MD 230 [place], [place] [phone] Moderate persistent asthma without complication Social History [...] Date Type Department Care Team ([facility] Contact Info) Description 05/03/2025 1:00 PM EST Clinical Support [facility] MEDICINE [address] [place] [address] [phone] Amanda Waldrop, RN 06/22/2025 12:45 PM EST Office Visit [facility] ADULT DENTAL 230 [place] [address] Pierre Coreyaris 230 [place], [place] [phone] 07/05/2025 1:00 PM EST Office Visit [facility] OPTOMETRY [address] [place] [address] Beata Holt, OD 230 [place], [place] [phone] documented as of this encounter Visit Diagnoses Diagnosis Moderate persistent asthma without complication documented in this encounter Additional Health Concerns Assessment Noted Time PHQ-9 Depression Total Score: 0 08/22/19 23 10:06 AM EDT documented as of this encounter Care Teams Television Agent Relationship Specialty Start Date End Date Kalpana Baptiste MD 230 [place], [place] [phone] PCP - General Family Medicine 06/14/20 Betsy Wray RN [address] [place] [address] Registered Nurse Family Medicine 09/28/24 12/30/24 Erika Saldivar 09/28/24 01/10/25 documented as of this encounter
--- OUTSIDE RECORDS SUMMARY | 2025-04-18 02:44 | XMS_ITS | Encounter Summary ---
Author Organization [employer] Address 75 [facility] 7t [place] [address] Care Team Providers Care Deputy Director Of Finance Name Role Phone Kalpana Baptiste MD Primary Care Provide r Betsy Wray RN Unavailable Unavailable Erika Saldivar Unavailable Reason for Visit * Reason Comments Med Refill Encounter Details Date Type Department Care Team (Late Contact Info) Description 10/23/2022 Refill [facility] [address] [place] [address] Tootie Tineo ANP 230 [place] [address] Social History Tobacco Use Types Packs/Day Years [...] EST Clinical Support [facility] 230 [place] [address] Amanda Waldrop RN 06/22/2025 12:45 PM EST Office Visit [facility] ADULT DENTAL [address] [place] [address] Leora Gloria [address] [place] [address] 07/05/2025 1:00 PM EST Office Visit [facility] OPTOMETRY [address] [place] [address] Beata Holt, OD 230 [place] [address] documented as of this encounter Visit Diagnoses Not on filedocumented in this encounter Additional Health Concerns Assessment Noted Time PHQ-9 Depression Total Score: 0 08/22/19 23 10:06 AM EDT documented as of this encounter Care Teams Deputy Director Of Finance Relationship Specialty Start Date End Date Kalpana Baptiste MD 230 [place], [place] [phone] PCP - General Family Medicine 06/14/20 Betsy Wray RN [address] [place] [address] Registered Nurse Family Medicine 09/28/24 12/30/24 Erika Saldivar 09/28/24 01/10/25 documented as of this encounter
--- OUTSIDE RECORDS SUMMARY | 2025-04-18 02:44 | XMS_ITS | Encounter Summary ---
Author Organization [employer] Address 75 [facility] 7t [place] [address] Care Team Providers Care Underwater Roboticist Name Role Phone Kalpana Baptiste MD Primary Care Provide r Betsy Wray RN Unavailable Unavailable Erika Saldivar Unavailable Reason for Visit * Reason Comments Med Refill Encounter Details Date Type Department Care Team ([facility] st Contact Info) Description 08/22/2023 Refill [facility] MEDICINE 230 [place], [place] [phone] Kalpana Baptiste MD 230 [place] [address] Primary osteoarthritis of both knees Social History [...] Description 05/03/2025 1:00 PM EST Clinical Support [facility] MEDICINE 230 [place] [address] Amanda Waldrop RN 06/22/2025 12:45 PM EST Office Visit [facility] ADULT DENTAL 230 [place] [address] Pierre Coreyaris 230 [place] [address] 07/05/2025 1:00 PM EST Office Visit [facility] OPTOMETRY [address] [place] [address] Ojnathon, Beata, OD 230 [place] [address] documented as of this encounter Visit Diagnoses Diagnosis Primary osteoarthritis of both knees documented in this encounter Additional Health Concerns Assessment Noted Time PHQ-9 Depression Total Score: 0 08/22/19 23 10:06 AM EDT documented as of this encounter Care Teams Underwater Roboticist Relationship Specialty Start Date End Date Kalpana Baptiste MD [address] [place] [address] PCP - General Family Medicine 06/14/20 Betsy Wray RN [address] [place] [address] Registered Nurse Family Medicine 09/28/24 12/30/24 Erika Saldivar 09/28/24 01/10/25 documented as of this encounter
--- OUTSIDE RECORDS SUMMARY | 2025-04-18 02:44 | XMS_ITS | Encounter Summary ---
Author Organization [employer] Address 75 [facility] 7t [place] [address] Care Team Providers Care Obiee Lead Developer Name Role Phone Kalpana Baptiste MD Primary Care Provide r Betsy Wray RN Unavailable Unavailable Erika Saldivar Unavailable Reason for Visit * Reason Comments Med Refill Encounter Details Date Type Department Care Team ([facility] st Contact Info) Description 11/24/2024 Refill [facility] 230 [place] [address] Kalpana Baptiste MD 230 [place] [address] Abdominal pain, epigastric; Heartburn; Chronic gout of [...] 1:00 PM EST Clinical Support [facility] 230 [place] [address] Amanda Waldrop RN 06/22/2025 12:45 PM EST Office Visit [facility] ADULT DENTAL 230 [place] [address] Gloria Corey [address] [place] [address] 07/05/2025 1:00 PM EST Office Visit [facility] OPT[facility] [address] [place], [place] [phone] Beata Holt, OD 230 [place] [address] documented as of this encounter Visit Diagnoses Diagnosis Abdominal pain, epigastric Heartburn Chronic gout of multiple sites, unspecified cause Primary osteoarthritis of both knees Allergic rhinitis, unspecified seasonality, unspecified trigger Moderate persistent asthma without complication documented in this encounter Additional Health Concerns Assessment Noted Time PHQ-9 Depression Total Score: 0 10/16/19 25 3:24 PM EDT documented as of this encounter Care Teams Obiee Lead Developer Relationship Specialty Start Date End Date Kalpana Baptiste MD [address] [place] [address] PCP - General Family Medicine 06/14/20 Betsy Wray RN [address] [place] [address] Registered Nurse Family Medicine 09/28/24 12/30/24 Erika Saldivar 09/28/24 01/10/25 documented as of this encounter
--- OUTSIDE RECORDS SUMMARY | 2025-04-18 02:44 | XMS_ITS | Encounter Summary ---
Author Organization [employer] Address 75 [facility] 7t [place] [address] Care Team Providers Care Web Applications Programmer Name Role Phone Kalpana Baptiste MD Primary Care Provide r Reason for Visit * Reason Comments Med Refill Encounter Details Date Type Department Care Team ([facility] st Contact Info) Description 02/17/2025 Refill [facility] 230 [place], [place] [phone] Kalpana Baptiste MD 230 [place] [address] Chronic tension-type headache, not intractable; Chronic bilateral low back pain, unspecified whether sciatica present; Type 2 diabetes mellitus with other specified complication, unspecified whether usp insulin use (HCC); Primary osteoarthritis of both knees Social History [...] the past 12 months, has t he [employer], gas, oil or water [employer] threatened to shut off services in your [...] Description 05/03/2025 1:00 PM EST Clinical Support [facility] MED[facility]INE 230 [place] [address] Amanda Waldrop RN 06/22/2025 12:45 PM EST Office Visit [facility] ADULT DENTAL [address] [place] [address] Gloria Corey [address] [place] [address] 07/05/2025 1:00 PM EST Office Visit [facility] OPTOMETRY [address] [place], [place] [phone] Beata Holt, OD 230 [place] [address] documented as of this encounter Visit Diagnoses Diagnosis Chronic tension-type headache, not intractable Chronic tension type headache Chronic bilateral low back pain, unspecified whether sciatica present Type 2 diabetes mellitus with other specified complication, unspecified whether meterman insulin use (HCC) Primary osteoarthritis of both knees documented in this encounter Additional Health Concerns Assessment Noted Time PHQ-9 Depression Total Score: 0 10/16/19 25 3:24 PM EDT documented as of this encounter Care Teams Web Applications Programmer Relationship Specialty Start Date End Date Kalpana Baptiste MD 230 [place] [address] PCP - General Family Medicine 06/14/20 documented as of this encounter
--- OUTSIDE RECORDS SUMMARY | 2025-04-18 02:44 | XMS_ITS | Encounter Summary ---
Author Organization [facility] Address [address] [place] [address] Care Team Providers Care Plant Ecologist Name Role Phone Kalpana Baptiste MD Primary Care Provider Encounter Details Date Type Department Care Team (Late Contact Info) Description 01/15/2016 Orders Only [facility] Building [address] [place] [address] Aylin Gunn PA [address] [place] [address] [place]ematology[place] [address] Social History Tobacco Use Types Packs/Day Years Used Date Smoking Tobacco: Never Assessed Comments Unknown Sex and Gender Information Value Date Recorded Sex Assigned at Not on file Legal Sex Female 8:19 AM EDT Gender Identity Not on file Sexual Orientation Not on file documented as of this encounter Plan of Treatment Upcoming Encounters Date Type Department Care Team (Late Contact Info) Description 08/10/2025 2:00 PM EDT Lab [facility] ACC Draw Site Fifth Floor [address] [place] [address] 08/10/2025 3:00 PM EDT Follow-Up [facility] [address] [place] [address] Vivek Bernal MD PhD [address] [place] [address] documented as of this encounter Visit Diagnoses Not on filedocumented in this encounter Care Teams Plant Ecologist Relationship Specialty Start Date End Date Kalpana Baptiste MD 230 [place] [address] PCP - General 11/22/20 documented as of this encounter
--- OUTSIDE RECORDS SUMMARY | 2025-04-18 02:44 | XMS_ITS | Encounter Summary ---
Author Organization [employer] Address 75 [facility] 7t [place] [address] Care Team Providers Care Freight Sorter Name Role Phone Kalpana Baptiste MD Primary Care Provide r Betsy Wray RN Unavailable Unavailable Erika Saldivar Unavailable Reason for Visit * Reason Comments Med Refill Encounter Details Date Type Department Care Team (Late Contact Info) Description 11/13/2022 Refill [facility] MEDICINE [address] [place] [address] [phone] Kalpana Baptiste MD [address] [place] [address] [phone] Primary osteoarthritis of both knees Social History [...] 1:00 PM EST Clinical Support [facility] MEDICINE [address] [place] [address] Amanda Waldrop RN 06/22/2025 12:45 PM EST Office Visit [facility] ADULT DENTAL [address] [place] [address] Pierre Coreyaris [address] [place] [address] 07/05/2025 1:00 PM EST Office Visit [facility] OPTOMETRY [address] [place] [address] Beata Holt, OD 230 [place] [address] documented as of this encounter Visit Diagnoses Diagnosis Primary osteoarthritis of both knees documented in this encounter Additional Health Concerns Assessment Noted Time PHQ-9 Depression Total Score: 0 08/22/19 23 10:06 AM EDT documented as of this encounter Care Teams Freight Sorter Relationship Specialty Start Date End Date Kalpana Baptiste MD 230 [place], [place] [phone] PCP - General Family Medicine 06/14/20 Betsy Wray RN [address] [place] [address] Registered Nurse Family Medicine 09/28/24 12/30/24 Erika Saldivar 09/28/24 01/10/25 documented as of this encounter
--- OUTSIDE RECORDS SUMMARY | 2025-04-18 02:44 | XMS_ITS | Encounter Summary ---
Author Organization [employer] Address 75 [facility] 7t [place] [address] Care Team Providers Care Cable Testers Helper Name Role Phone Kalpana Baptiste MD Primary Care Provide r Betsy Wray RN Unavailable Unavailable Erika Saldivar Unavailable Reason for Visit * Reason Comments Med Refill Encounter Details Date Type Department Care Team (Late Contact Info) Description 12/19/2022 Refill [facility] MEDICINE [address] [place] [address] [phone] Kalpana Baptiste MD [address] [place] [address] [phone] Primary osteoarthritis of both knees Social History [...] Clinical Support [facility] MEDICINE [address] [place] [address] Aamnda Waldrop RN 06/22/2025 12:45 PM EST Office Visit [facility] ADULT DENTAL 230 [place] [address] Pierre Coreyaris 230 [place] [address] 07/05/2025 1:00 PM EST Office Visit [facility] OPTOMETRY [address] [place] [address] Beata Holt, OD 230 [place] [address] documented as of this encounter Visit Diagnoses Diagnosis Primary osteoarthritis of both knees documented in this encounter Additional Health Concerns Assessment Noted Time PHQ-9 Depression Total Score: 0 08/22/19 23 10:06 AM EDT documented as of this encounter Care Teams Cable Testers Helper Relationship Specialty Start Date End Date Kalpana Baptiste MD 230 [place], [place] [phone] PCP - General Family Medicine 06/14/20 Betsy Wray RN 230 [place] [address] Registered Nurse Family Medicine 09/28/24 12/30/24 Erika Saldivar 09/28/24 01/10/25 documented as of this encounter
--- OUTSIDE RECORDS SUMMARY | 2025-04-18 02:44 | XMS_ITS | Encounter Summary ---
Author Organization [employer] Address [address] [facility] [address] 7t [place] [address] Care Team Providers Care Clinical Leader Name Role Phone Kalpana Baptiste MD Primary Care Provide r Encounter Details Date Type Department Care Team ([facility] st Contact Info) Description 03/22/2025 Orders Only [facility] MEDICINE [address] [place], [place] [phone] Kalpana Baptiste MD [address] [place], [place] [phone] Social History Tobacco Use Types Packs/Day Years [...] [facility] MEDICINE [address] [place] [address] Amanda Waldrop RN 06/22/2025 12:45 PM EST Office Visit [facility] ADULT DENTAL [address] [place], [place] [phone] Gloria Corey [address] [place] [address] 07/05/2025 1:00 PM EST Office Visit [facility] OPTOMETRY [address] [place], [place] [phone] Beata Holt, OD 230 [place] [address] documented as of this encounter Goals Goal Patient Goal Type Associated Problems Recent Progress Patient-Stated? Author Help patients manage their type 2 diabetes Care Plan Help patients manage their type 2 diabetes No Onur, Eliazar Weekly blood pressure task Care Plan Weekly blood pressure task No Mohr, Eliazar Help patients manage their type 2 diabetes Care Plan Help patients manage their type 2 diabetes No Mohr, Eliazar Patient has chronic kidney disease Care Plan Patient has chronic kidney disease No Mohr, Eliazar Help patients manage their type 2 diabetes Care Plan Help patients manage their type 2 diabetes No Mohr, Eliazar Patient has diabetic neuropathy [...] Plan Patient has diabetic neuropathy No Kalpana Baptsite MD Patient has diabetic neuropathy Care Plan Patient has diabetic neuropathy No Kalpana Baptiste MD documented as of this encounter Procedures Procedure Name Priority Date/Time Associated Diagnosis Comments XR HAND 3+ VIEWS RIGHT Routine 04/17/2025 11:44 PM EST documented in this encounter Results * XR Hand 3+ Views Right (04/17/2025 11:44 PM EST) Anatomical Region Laterality Modality Upper Extremities, Hand Right Radiogra phic Imaging 04/17/2025 11:4 4 PM EST Narrative 04/17/2025 11:45 PM EST [place] [address] XRay Report Signed Patient: Santa Kate MR#: [id number] 74 : 1965 Acct:[id number] Age/Sex: 60 / F ADM Date: 04/17/25 Loc: .ED Attending Dr: Ordering Physician: Generic ED Physician Date of Service: 04/17/25 Procedure(s): XR hand RT min 3V Accession Number(s): [id number] cc: Kalpana Baptiste MD; Generic ED Physician Reason for Exam: Decreased ROM, pain CLINICAL HISTORY: Decreased ROM, pain 3 view right hand Comparison: None provided Findings: Calcific density (3 mm long axis) adjacent to distal 3rd interphalangeal joint is nonspecific. Differential considerations include ligament calcification and small foreign body. Small avulsion fragment considered less likely. Mild osteoarthritis is multifocal. No dislocation. No retained metallic foreign body. IMPRESSION: 1. 3 mm calcification adjacent to 3rd distal interphalangeal joint is nonspecific. Please correlate for any potential small foreign body. 2. Mild multifocal osteoarthritis. This document has been electronically signed by: Jeremy Elaine MD on 04/17/2025 23:44:23 Dictated By: Jeremy Elaine MD Signed By: <Electronically signed by Jeremy Elaine MD in [place]> 04/17/252344 DD/ 43 TD/TT: 04/17/252343 [employer] Rub[employer] Plate: Procedure Note Donotuseinterpreter, Image - 04/17/2025 [place] [address] XRay Report Signed Patient: Damian Kate#: [id number] 74 : 1965Acct:[id number] Age/Sex: 60 / FADM Date: 04/17/25 Loc: HO.ED Attending Dr: Ordering Physician: Generic ED Physician Date of Service: 04/17/25 Procedure(s): XR hand RT min 3V Accession Number(s): [id number] cc: Kalpana Baptiste MD; Generic ED Physician Reason for Exam: Decreased ROM, pain CLINICAL HISTORY: Decreased ROM, pain 3 view right hand Comparison: None provided Findings: Calcific density (3 mm long axis) adjacent to distal 3rd interphalangeal joint is nonspecific. Differential considerations include ligament calcification and small foreign body. Small avulsion fragment considered less likely. Mild osteoarthritis is multifocal. No dislocation. No retained metallic foreign body. IMPRESSION: 1. 3 mm calcification adjacent to 3rd distal interphalangeal joint is nonspecific. Please correlate for any potential small foreign body. 2. Mild multifocal osteoarthritis. This document has been electronically signed by: Jeremy Elaine MD on 04/17/2025 23:44:23 Dictated By: Jeremy Elaine MD Signed By: <Electronically signed by Jeremy Elaine MD in [place]> 04/17/252344 DD/ 43 TD/TT: 04/17/252343 Vul[employer] Rubber Plate: [facility] External Provider IMG XR PROCEDURES Edited Result - Final documented in this encounter Visit Diagnoses Not [...] neuropathy 03/22/2025 Patient has diabetic neuropathy 03/22/2025 Assessment Noted Time PHQ-9 Depression Total Score: 0 10/16/19 25 3:24 PM EDT documented as of this encounter Care Teams Clinical Leader Relationship Specialty Start Date End Date Kalpana Baptiste MD [address] [place] [phone] PCP - General Family Medicine 06/14/20 documented as of this encounter
--- OUTSIDE RECORDS SUMMARY | 2025-04-18 02:44 | XMS_ITS | Encounter Summary ---
Author Organization [employer] Address 75 [facility] 7t [place] [address] Care Team Providers Care Cook Taco Name Role Phone Kalpana Baptiste MD Primary Care Provide r Betsy Wray RN Unavailable Unavailable Erika Saldivar Unavailable Reason for Visit * Reason Comments Med Refill Encounter Details Date Type Department Care Team (Late Contact Info) Description 12/09/2022 Refill [facility] MEDICINE [address] [place] [phone] Abe Dial AGNP Indigestion; Overactive bladder Social [...] 1:00 PM EST Clinical Support [facility] MEDICINE [address] [place], [place] [phone] Amanda Waldrop RN 06/22/2025 12:45 PM EST Office Visit [facility] ADULT DENTAL [address] [place], [place] [phone] Gloria Corey [address] [place] [address] 07/05/2025 1:00 PM EST Office Visit [facility] OPTOMETRY [address] [place], [place] [phone] Beata Holt, OD [address] [place] [address] documented as of this encounter Visit Diagnoses Diagnosis Indigestion Dyspepsia and other specified disorders of function of stomach Overactive bladder Hypertonicity of bladder documented in this encounter Additional Health Concerns Assessment Noted Time PHQ-9 Depression Total Score: 0 08/22/19 23 10:06 AM EDT documented as of this encounter Care Teams Cook Taco Relationship Specialty Start Date End Date Kalpana Baptiste MD [address] [place], [place] [phone] PCP - General Family Medicine 06/14/20 Betsy Wray RN [address] [place] [address] Registered Nurse Family Medicine 09/28/24 12/30/24 Erika Saldivar 09/28/24 01/10/25 documented as of this encounter
--- OUTSIDE RECORDS SUMMARY | 2025-04-18 02:44 | XMS_ITS | Encounter Summary ---
Author Organization [employer] Address 75 [facility] 7t [place] [address] Care Team Providers Care Senior Strategy Manager Name Role Phone Kalpana Baptiste MD Primary Care Provide r Betsy Wray RN Unavailable Unavailable Erika Saldivar Unavailable Reason for Visit * Reason Comments Med Refill Encounter Details Date Type Department Care Team ([facility] st Contact Info) Description 08/11/2023 Refill [facility] MEDICINE [address] [place], [place] [phone] Kalpana Baptiste MD [address] [place] [address] Chronic gout of multiple sites, unspecified cause; [...] Description 05/03/2025 1:00 PM EST Clinical Support [facility] MEDICINE [address] [place] [address] Amanda Waldrop RN 06/22/2025 12:45 PM EST Office Visit [facility] ADULT DENTAL [address] [place] [address] Leora, Gloria [address] [place] [address] 07/05/2025 1:00 PM EST Office Visit [facility] OPTOMETRY [address] [place] [address] Jonathon, Beata, OD 230 [place] [address] documented as of this encounter Visit Diagnoses Diagnosis Chronic gout of multiple sites, unspecified cause Primary osteoarthritis of both knees Moderate persistent asthma without complication documented in this encounter Additional Health Concerns Assessment Noted Time PHQ-9 Depression Total Score: 0 08/22/19 23 10:06 AM EDT documented as of this encounter Care Teams Senior Strategy Manager Relationship Specialty Start Date End Date Kalpana Baptiste MD [address] [place] [address] PCP - General Family Medicine 06/14/20 Betsy Wray RN 230 [facility] [place] [address] Registered Nurse Family Medicine 09/28/24 12/30/24 Erika Saldivar 09/28/24 01/10/25 documented as of this encounter
--- OUTSIDE RECORDS SUMMARY | 2025-04-18 02:44 | XMS_ITS | Encounter Summary ---
Author Organization [employer] Address [address] [facility] [address] 7t [place] [address] Care Team Providers Care Cost Report Clerk Name Role Phone Kalpana Baptiste MD Primary Care Provide r Betsy Wray RN Unavailable Unavailable Erika Saldivar Unavailable Encounter Details Date Type Department Care Team (Late st Contact Info) Description 02/12/2023 Abstract [facility] MEDICINE [address] [place] [address] Therese Brown Social History Tobacco Use Types Packs/Day Years Used Date Smoking Tobacco: Former Cigarettes Passive Smoke Exposure: Never Smokeless Tobacco: Never Alcohol Use Standard Drinks/Week Comments Never 0 (1 standard drink = 0.6 oz pur e alcohol) Depression Answer Date Recorded Patient Health Questionnaire-9 Score 0 08/21/2022 Housing Stability Answer Date Recorded What is your housing situation today? I have [place] 02/10/[address] you [...] Description 05/03/2025 1:00 PM EST Clinical Support [facility] MEDICINE [address] [place] [address] Amanda Waldrop RN 06/22/2025 12:45 PM EST Office Visit [facility] ADULT DENTAL [address] [place] [address] Gloria Corey [address] [place] [address] 07/05/2025 1:00 PM EST Office Visit [facility] OPTOMETRY [address] [place] [address] Jonathon, Beata, OD [address] [place] [address] documented as of this encounter Procedures Procedure [...] documented as of this encounter Care Teams Cost Report Clerk Relationship Specialty Start Date End Date Kalpana Baptiste MD [address] [place] [address] PCP - General Family Medicine 06/14/20 Betsy Wray RN [address] [place] [address] Registered Nurse Family Medicine 09/28/24 12/30/24 Erika Saldivar 09/28/24 01/10/25 documented as of this encounter
--- OUTSIDE RECORDS SUMMARY | 2025-04-18 02:44 | XMS_ITS | Encounter Summary ---
Author Organization [employer] Address 75 [facility] 7t [place] [address] Care Team Providers Care City Distribution Clerk Name Role Phone Kalpana Baptiste MD Primary Care Provide r Betsy Wray RN Unavailable Unavailable Erika Saldivar Unavailable Reason for Visit * Reason Comments Med Refill Encounter Details Date Type Department Care Team ([facility] st Contact Info) Description 02/18/2024 Refill [facility] MEDICINE [address] [place], [place] [phone] Caryl Biggs MD 230 [place] [address] Primary osteoarthritis of both knees Social History [...] Description 05/03/2025 1:00 PM EST Clinical Support [facility] MEDICINE [address] [place] [address] Amanda Waldrop RN 06/22/2025 12:45 PM EST Office Visit [facility] ADULT DENTAL [address] [place] [address] Pierre Coreyaris [address] [place] [address] 07/05/2025 1:00 PM EST Office Visit [facility] OPTOMETRY [address] [place] [address] Jonathon, Beata, OD [address] [place] [address] documented as of this encounter Visit Diagnoses Diagnosis Primary osteoarthritis of both knees documented in this encounter Additional Health Concerns Assessment Noted Time PHQ-9 Depression Total Score: 0 08/22/19 23 10:06 AM EDT documented as of this encounter Care Teams City Distribution Clerk Relationship Specialty Start Date End Date Kalpana Baptiste MD [address] [place] [address] PCP - General Family Medicine 06/14/20 Betsy Wray RN [address] [place] [address] Registered Nurse Family Medicine 09/28/24 12/30/24 Erika Saldivar 09/28/24 01/10/25 documented as of this encounter
--- OUTSIDE RECORDS SUMMARY | 2025-04-18 02:44 | XMS_ITS | Encounter Summary ---
Author Organization [facility] Address [address] [place] [address] Care Team Providers Care Breaker Layer Name Role Phone Kalpana Baptiste MD Primary Care Provider Encounter Details Date Type Department Care Team (Late Contact Info) Description 01/17/2016 Orders Only [facility] Building [address] [place] [address] Aylin Gunn PA [address] [place] [address] [place]ematology[place] [address] Social History Tobacco Use Types Packs/Day Years [...] Info) Description 08/10/2025 2:00 PM EDT Lab [facility] ACC Draw Site Fifth Floor [address] [place] [address] 08/10/2025 3:00 PM EDT Follow-Up [facility] [address] [place] [address] Vivek Bernal MD PhD [address] [place] [address] documented as of this encounter Visit Diagnoses Not on filedocumented in this encounter Care Teams Breaker Layer Relationship Specialty Start Date End Date Kalpana Baptiste MD [address] [place] [address] PCP - General 11/22/20 documented as of this encounter
--- OUTSIDE RECORDS SUMMARY | 2025-04-18 02:44 | XMS_ITS | Encounter Summary ---
Author Organization [employer] Address 75 [facility] 7t [place] [address] Care Team Providers Care Sample Carrier Name Role Phone Kalpana Baptiste MD Primary Care Provide r Betsy Wray RN Unavailable Unavailable Erika Saldivar Unavailable Reason for Visit * Reason Comments Med Refill Encounter Details Date Type Department Care Team ([facility] st Contact Info) Description 02/02/2024 Refill [facility] MEDICINE [address] [place], [place] [phone] Caryl Biggs MD 230 [place] [address] Primary osteoarthritis of both knees Social History [...] Support [facility] MEDICINE [address] [place] [address] Amanda Waldrop RN 06/22/2025 12:45 PM EST Office Visit [facility] ADULT DENTAL [address] [place] [address] Pierre Coreyaris [address] [place] [address] 07/05/2025 1:00 PM EST Office Visit [facility] OPTOMETRY [address] [place] [address] Jonathon, Betaa, OD [address] [place] [address] documented as of this encounter Visit Diagnoses Diagnosis Primary osteoarthritis of both knees documented in this encounter Additional Health Concerns Assessment Noted Time PHQ-9 Depression Total Score: 0 08/22/19 23 10:06 AM EDT documented as of this encounter Care Teams Sample Carrier Relationship Specialty Start Date End Date Kalpana Baptiste MD [address] [place] [address] PCP - General Family Medicine 06/14/20 Betsy Wray RN [address] [place] [address] Registered Nurse Family Medicine 09/28/24 12/30/24 Erika Saldivar 09/28/24 01/10/25 documented as of this encounter
--- OUTSIDE RECORDS SUMMARY | 2025-04-18 02:44 | XMS_ITS | Encounter Summary ---
Author Organization [employer] Address 75 [facility] 7t [place] [address] Care Team Providers Care Cryogenics Repairer Name Role Phone Kalpana Baptiste MD Primary Care Provide r Betsy Wray RN Unavailable Unavailable Erika Saldivar Unavailable Reason for Visit * Reason Comments Med Refill Encounter Details Date Type Department Care Team ([facility] st Contact Info) Description 02/18/2023 Refill [facility] MEDICINE 230 [place], [place] [phone] Kalpana Baptiste MD [address] [place] [address] Primary osteoarthritis of both knees Social History [...] Clinical Support [facility] MEDICINE [address] [place] [address] Amanda Waldrop RN 06/22/2025 12:45 PM EST Office Visit [facility] ADULT DENTAL [address] [place] [address] Pierre Coreyaris [address] [place] [address] 07/05/2025 1:00 PM EST Office Visit [facility] OPTOMETRY [address] [place] [address] Jonathon, Beata, OD [address] [place] [address] documented as of this encounter Visit Diagnoses Diagnosis Primary osteoarthritis of both knees documented in this encounter Additional Health Concerns Assessment Noted Time PHQ-9 Depression Total Score: 0 08/22/19 23 10:06 AM EDT documented as of this encounter Care Teams Cryogenics Repairer Relationship Specialty Start Date End Date Kalpana Baptiste MD [address] [place] [address] PCP - General Family Medicine 06/14/20 Betsy Wray RN [address] [place] [address] Registered Nurse Family Medicine 09/28/24 12/30/24 Erika Saldivar 09/28/24 01/10/25 documented as of this encounter
--- OUTSIDE RECORDS SUMMARY | 2025-04-18 02:44 | XMS_ITS | Encounter Summary ---
Author Organization [employer] Address [address] [facility] [address] 7t [place] [address] Care Team Providers Care Office Administrator Name Role Phone Kalpana Baptiste MD Primary Care Provide r Reason for Visit * Reason Comments Med Refill Encounter Details Date Type Department Care Team ([facility] st Contact Info) Description 01/13/2025 Refill [facility] MEDICINE 230 [place], [place] [phone] Kalpana Baptiste MD [address] [place] [address] Primary osteoarthritis of both knees Social History [...] Description 05/03/2025 1:00 PM EST Clinical Support [facility] MEDICINE [address] [place] [address] Amanda Waldrop, NEGAR 06/22/2025 12:45 PM EST Office Visit [facility] ADULT DENTAL [address] [place] [address] Gloria Corey [address] [place] [address] 07/05/2025 1:00 PM EST Office Visit [facility] OPTOMETRY [address] [place] [address] Beata Holt, OD 230 [place] [address] documented as of this encounter Visit Diagnoses Diagnosis Primary osteoarthritis of both knees documented in this encounter Additional Health Concerns Assessment Noted Time PHQ-9 Depression Total Score: 0 10/16/19 25 3:24 PM EDT documented as of this encounter Care Teams Office Administrator Relationship Specialty Start Date End Date Kalpana Baptiste MD [address] [place] [address] PCP - General Family Medicine 06/14/20 documented as of this encounter
--- OUTSIDE RECORDS SUMMARY | 2025-04-18 02:44 | XMS_ITS | Encounter Summary ---
Author Organization [employer] Address 75 [facility] 7t [place] [address] Care Team Providers Care Customer Sales Service Manager Name Role Phone Kalpana Baptiste MD Primary Care Provide r Betsy Wray RN Unavailable Unavailable Erika Saldivar Unavailable Reason for Visit * Reason Comments Med Refill Encounter Details Date Type Department Care Team ([facility] st Contact Info) Description 12/29/2024 Refill [facility] MEDICINE 230 [place], [place] [phone] Kalpana Baptiste MD [address] [place], [place] [phone] Chronic bilateral low back pain, unspecified whether [...] the past 12 months, has t he [employer], gas, oil or water [employer] threatened to shut off services in your [...] Description 05/03/2025 1:00 PM EST Clinical Support [facility] MEDICINE 230 [place] [address] Amanda Waldrop RN 06/22/2025 12:45 PM EST Office Visit [facility] ADULT DENTAL [address] [place] [address] Gloria Corey [address] [place] [address] 07/05/2025 1:00 PM EST Office Visit [facility] OPTOMETRY [address] [place] [address] Beata Holt, OD 230 [place], [place] [phone] documented as of this encounter Visit Diagnoses Diagnosis Chronic bilateral low back pain, unspecified whether sciatica present documented in this encounter Additional Health Concerns Assessment Noted Time PHQ-9 Depression Total Score: 0 10/16/19 25 3:24 PM EDT documented as of this encounter Care Teams Customer Sales Service Manager Relationship Specialty Start Date End Date Kalpana Baptiste MD [address] [place], [place] [phone] PCP - General Family Medicine 06/14/20 Betsy Wray RN [address] [place] [address] Registered Nurse Family Medicine 09/28/24 12/30/24 Erika Saldivar 09/28/24 01/10/25 documented as of this encounter
--- OUTSIDE RECORDS SUMMARY | 2025-04-18 02:44 | XMS_ITS | Clinical Summary ---
Author Organization [facility] Address [address] [place] [address] Care Team Providers Care Redevelopment Specialist Name Role Phone Kalpana Baptiste MD [...] with or without food. 60 tablet 10 04/01/2025 7:32 PM EST 01/21/2025 Active folic acid (FOLVITE) 1 mg tablet Take 1 mg by mouth once a day. Active canagliflozin (INVOKANA) 100 mg tablet Take 100 mg by mouth once a day. Active SITagliptin phosphate (JANUVIA) 100 mg tablet Take 50 mg by mouth once a day. Active tolterodine (DETROL) 2 mg tablet Take 2 mg by mouth 2 times a day. 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 Anxiety disorder 06/24/2012 Depression 06/24/2012 Lower back pain 06/03/2012 Spleen enlargement 05/13/2012 Hypertension 03/06/2012 Asthma 03/06/2012 Hyperlipidemia 03/06/2012 Myelofibrosis 03/06/2012 Encounters Date Type Department Care Team Description 02/16/2025 10:00 AM EDT Follow-Up [facility] [address] [place] [address] Vickie Victor, JACKELIN Myelofibrosis (Primary Dx) 02/16/2025 9:00 AM EDT Lab [facility] [address] [place] [phone] Myelofibrosis (Primary Dx) 01/21/2025 Refill [facility] [address] [place] [address] Aylin Gunn PA 01/17/2025 CM Clinical Specialty Pharmacy [facility] [address] [place] [phone] Ana Tom RPh from Last 3 Months [...] Sign Reading Time Taken Comments Blood Pressure 135/85 02/16/2025 8:35 AM EDT Pulse 67 02/16/2025 8:35 AM EDT Temperature 36.7 C (98.1 F) 02/16/2025 8:35 AM EDT Respiratory Rate 18 02/16/2025 8:35 AM EDT Oxygen Saturation 98% 02/16/2025 8:35 AM EDT Inhaled Oxygen Concentration - - Weight 103.3 kg (227 lb 11.8 oz) 02/16/2025 8:35 AM EDT Height 166.3 cm (5' 5.47 ) 03/06/2012 1 0:46 AM EDT Body Mass Index - - Plan of Treatment Upcoming Encounters Date Type Department Care Team (Late st Contact Info) Description 08/10/2025 2:00 PM EDT Lab [facility] ACC Draw Site Fifth Floor [address] [place] [address] 08/10/2025 3:00 PM EDT Follow-Up [facility] [address] [place] [address] Vivek Bernal MD PhD [address] [place] [address] Health Maintenance Due Date Last Done Comments CKD: Referral to Nephrology 1963 Cervical Cancer Screening 1963 Cologuard 1963 Colon Cancer Screening 1963 Colonoscopy 1963 FOBT / Fit Test 1963 HPV and Pap Smear 1963 PTH 1963 Pap Smear 1963 Sigmoidoscopy 1963 Ophthalmology Exam 1973 RSV Vaccine (60+ years old a nd patients) (1 - Risk 50-74 years 1-dose series) 2013 CT Lung Cancer Screening (Baseline) 08/12/2013 08/12/2012 Phosphorus 10/08/2013 10/08/2012, 0609/2012, 10/06/2012, Additional history exists 25 Hydroxy / Vitamin D 08/11/2018 8, 08/10/2014, 02/03/2013, Additional history exists Alcohol/Substance Use Screening 05/05/2024 Depression Screening and Follow-Up 05/05/2024 Social Drivers of Health Cindy ual Screening 05/05/2024 Mammogram 08/21/2024 08/21/2022, 02/02, 02/11/2018 COVID-19 Vaccine (2 6 season) 2025 02/25/2024, 05/08/2021, 07/05/2020, Additional history exists Hemoglobin A1C 02/04/2025 08/05/2024, 072 07/2023, 01/28/2023, Additional history exists Basic Metabolic Panel 06/19/2025 02/16/2025 , 01/28/2025, 01/18/2025, Additional history exists Urine Microalbumin 01/18/2026 01/18/2025, 0 07/15/2024, 01/24/2022 Hemoglobin 02/16/2026 02/16/2025, 08/03, 02/04/2024, Additional history exists DTaP,Tdap,and Td Vaccines (6 - Td or Tdap) 01/18/2029 01/18/2019, 08/10/2014, 12/01/2013, Additional history exists CT Lung Cancer Screening (12 months, previous LungRADS 1 or 2) Discontinued 08/12/2012 HIV Screening Completed 08/09/2013 Hepatitis C Screening Completed 08/09/2013 Hepatitis B Vaccines Completed 11/15/2014, 08/10/2014, 12/01/2013, Additional history exists Zoster Vaccines Completed 08/21/2021, 08/03, 06/13/2021, Additional history exists Influenza Vaccine Completed 01/28/2025, , 02/12/2023, Additional history exists Pneumococcal Vaccine: 50+ Years Completed 01/28/2025, 03/24/2016, 03/24/2016, Additional history exists Procedures * Due to [place] state law, this organization might not be sharing negative HIV tests. Procedure Name Priority Date/Time Associated Diagnosis Comments URIC ACID Routine 02/16/2025 8:41 AM EDT Myelofibrosis LACTATE DEHYDROGENASE STAT 02/16/2025 8:41 AM EDT Myelofibrosis COMPREHENSIVE METABOLIC PANEL STAT 02/16/2025 8:41 AM EDT Myelofibrosis CBC AUTO DIFFERENTIAL STAT 02/16/2025 8:41 AM EDT Myelofibrosis HEMOGLOBIN A1C Routine 08/11/2017 10:41 AM EDT [...] to Health Maintenance Results * Due to [place] state law, this organization might not be sharing negative HIV tests. * (ABNORMAL) CBC Auto Differential (02/16/2025 8:41 AM EDT) WBC 4.6 3.8 - 10.8 10*3/uL 02/16/2025 9:03 AM EDT [facility] RBC 3.31(L) 3.80 - 5.10 10*6/uL 02/16/2025 9:03 AM EDT [email or web address] Hemoglobin 10.0(L) 11.7 - 15.5 g/dL 02/16/2025 9:03 AM EDT [email or web address] Hematocrit 30.1(L) 35.0 - 45.0 % 02/16/2025 9:03 AM EDT [facility] MCV 90.9 80.0 - 100.0 fL 02/16/2025 9:03 AM EDT [facility] MCH 30.2 27.0 - 33.0 pg 02/16/2025 9:03 AM EDT [facility] MCHC 33.2 32.0 - 36.0 g/dL 02/16/2025 9:03 AM EDT [facility] RDW 13.2 11.0 - 15.0 % 02/16/2025 9:03 AM EDT [facility] Platelets 193 140 - 400 10*3/uL 02/16/2025 9:03 AM EDT [facility] MPV 9.4 7.5 - 12.5 fL 02/16/2025 9:03 AM EDT [facility] Neutrophil % 42.9 % 02/16/2025 9:03 AM EDT [facility] Immature Grans % 0.4 0.0 - 0.9 % 02/16/2025 9:03 AM EDT [facility] Lymphocyte % 42.7 % 02/16/2025 9:03 AM EDT [facility] Monocyte % 12.5 % 02/16/2025 9:03 AM EDT [email or web address] Eosinophil % 1.3 % 02/16/2025 9:03 AM EDT [facility] Basophil % 0.2 % 02/16/2025 9:03 AM EDT [facility] Neutrophil # 1.96 1.50 - 7.80 10*3/uL 02/16/2025 9:03 AM EDT [facility] Immature Grans # <0.03 <=0.03 10*3/uL 02/16/2025 9:03 AM EDT [facility] Lymphocyte # 2.00 0.85 - 3.90 10*3/uL 02/16/2025 9:03 AM EDT [facility] Monocyte # 0.60 0.20 - 0.95 10*3/uL 02/16/2025 9:03 AM EDT [facility] Eosinophil # 0.10 0.02 - 0.50 10*3/uL 02/16/2025 9:03 AM EDT [facility] Basophil # <0.03 0.00 - 0.20 10*3/uL 02/16/2025 9:03 AM EDT [facility] nRBC % 0.0 /100 WBCs 02/16/2025 9:03 AM EDT [facility] nRBC # <0.01 <0.01 10*3/uL 02/16/2025 9:03 AM EDT [facility] Total Neutrophil #, Preliminary 1.96 1.50 - 7.80 10*3/uL 02/16/2025 9:03 AM EDT [facility] Blood Structure of peripheral vein / Unknown Venipuncture / Unknown 02/16/2025 8:41 AM EDT 02/16/2025 8:58 AM EDT us Vickie Howard LIEUTENANT SHIFT SUPERVISOR LAB BLOOD ORDERABLES Final Resul t Performing Organization Address [facility] Co de Phone Number [facility] [address] [place] [address], [place] * (ABNORMAL) Uric Acid (02/16/2025 8:41 AM EDT) Uric Acid 12.0(H) 1.9 - 7.5 mg/dL 02/16/2025 9:36 AM EDT [facility] Blood Structure of peripheral vein / Unknown Venipuncture / Unknown 02/16/2025 8:41 AM EDT 02/16/2025 9:06 AM EDT us Vickie Howard LIEUTENANT SHIFT SUPERVISOR LAB BLOOD ORDERABLES Final Resul t Performing Organization Address [facility] de Phone Number [facility] [address] [place] [address], [place] * (ABNORMAL) Lactate Dehydrogenase (02/16/2025 8:41 AM EDT) LDH 262(H) 135 - 240 U/L 02/16/2025 9:38 AM EDT [facility] Blood Structure of peripheral vein / Unknown Venipuncture / Unknown 02/16/2025 8:41 AM EDT 02/16/2025 8:58 AM EDT us Vickie Howard LIEUTENANT SHIFT SUPERVISOR LAB BLOOD ORDERABLES Final Resul t Performing Organization Address [facility] de Phone Number [facility] [address] [place] [address], * (ABNORMAL) Comprehensive Metabolic Panel (02/16/2025 8:41 AM EDT) NA 141 135 - 145 mmol/L 02/16/2025 9:36 AM EDT [facility] K 4.1 3.5 - 5.3 mmol/L 02/16/2025 9:36 AM EDT [facility] Cl 107 97 - 110 mmol/L 02/16/2025 9:36 AM EDT [facility] CO2 24 22 - 32 mmol/L 02/16/2025 9:36 AM EDT [facility] Anion Gap 10 - 15 02/16/2025 9:36 AM EDT [facility] Glucose 117(H) 65 - 99 mg/dL 02/16/2025 9:36 AM EDT [facility] Creatinine 2.28(H) 0.50 - 1.20 mg/dL 02/16/2025 9:36 AM [facility] Calcium 8.9 8.6 - 10.5 mg/dL 02/16/2025 9:36 AM EDT [facility] Total Protein 7.2 6.0 - 8.0 g/dL 02/16/2025 9:36 AM EDT [facility] Albumin 4.4 3.5 - 5.2 g/dL 02/16/2025 9:36 AM EDT [facility] Bilirubin, Total 0.3 0.2 - 1.2 mg/dL 02/16/2025 9:36 AM EDT [facility] Alkaline Phosphatase 86 35 - 129 U/L 02/16/2025 9:36 AM EDT [facility] AST 47(H) 10 - 40 U/L 02/16/2025 9:36 AM EDT [facility] ALT 48(H) 10 - 40 U/L 02/16/2025 9:36 AM [employer] BUN 40(H) 7 - 23 mg/dL 02/16/2025 9:36 AM EDT [facility] eGFR 24(L) >=60 mL/min/1 .73m2 02/16/2025 9:36 AM EDT [email or web address] Comment:The estimated glomer ular [...] in Diagnosing Kidney Disease . Globulin, Total 2.8 2.1 - 4.2 g/dL 02/16/2025 9:36 AM EDT [email or web address] A/G Ratio 1.6 1.5 - 3.0 02/16/2025 9:36 AM EDT [email or web address] Blood Structure of peripheral vein / Unknown Venipuncture / Unknown 02/16/2025 8:41 AM EDT 02/16/2025 9:06 AM EDT us Vickie Howard NP LAB BLOOD ORDERABLES Final Resul t [facility] [address] [place] [address], * (ABNORMAL) Vitamin D, 25-Hydroxy, Total, Immunoassay (08/11/2017 10:41 AM EDT) Calcidiol+ercalc idiol 24(L) 30 - 100 ng/mL 08/11/2017 7:50 PM EDT [facility] Comment: Vitamin D Status 25-OH Vitamin D: Deficiency: <20 ng/mL Insufficiency: 20 - 29 ng/mL Optimal: > or = 30 ng/mL For 25-OH Vitamin D testing on patients on D2-supplementation and patients for whom quantitation of D2 and D3 fractions is required, the QuestAssureD(TM) 25-OH VIT D, (D2,D3), LC/MS/MS is recommended: order code [id number] (patients >2yrs). For more information on this test, go to: http://education.PlayerDuel/faq/LEZ258 (This link is being provided for informational/educational purposes only.) Blood specimen (specimen) Structure of peripheral vein / Unknown Venipuncture / Unknown 08/11/2017 10:41 AM EDT 08/11/2017 10:57 AM EDT Narrative [facility] - 08/11/2017 7:50 PM EDT [facility] Received Date: us Aylin MORROW LAB BLOOD ORDERABLES Gabi acuna Result [facility] [address], [place] [address], [facility] [address], [place] [address], * (ABNORMAL) Hemoglobin A1c (08/11/2017 10:41 AM EDT) Hemoglobin A1C 5.8(H) <5.7 % of total Hgb 08/11/2017 7:12 PM EDT [facility] Comment: For someone without known diabetes, a [...] (MG/DL) 120 (calc) 08/11/2017 7:12 PM EDT [facility] eAG (MMOL/L) 6.6 (calc) 08/11/2017 7:12 PM EDT [facility] Blood specimen (specimen) Structure of peripheral vein / Unknown Venipuncture / Unknown 08/11/2017 10:41 AM EDT 08/11/2017 10:57 AM EDT Narrative [facility] - 08/11/2017 7:12 PM EDT [facility] Received Date:[id number] Aylin MORROW LAB BLOOD ORDERABLES Gabi l Result [facility] [address] [facility] 3rd Floor, [place] [address], [place] [phone] [facility] 200 [facility] 3rd Floor, [place] [address], [place] [phone] * HEPATITIS C ANTIBODY, CONVERSION (08/09/2013 3:20 PM EDT) [facility] Hepatitis C Antibody 0.06 <1.00 [facility] HCV Interpretation Negative [facility] Comment: Not infected with HCV, unless recent infection is suspected or other evidence exists to indicate HCV infection. 08/09/2013 3:20 PM EDT 08/09/2013 4:45 PM EDT Vivek Bernal MD PhD LAB HISTORICAL RESULTS Final Re sult Performing Organization Address [facility]/ZIP Co de Phone Number [facility] [address] [place] [address], [place] * HIV-1/2 Antigen/Antibodies 4th Generation w/Reflex (08/09/2013 3:20 PM EDT) [facility] HIV 1,2 Ab/Ag Stat NEGATIVE NEGATIVE [facility] 08/09/2013 3:20 PM EDT 08/09/2013 4:45 PM EDT Vivek Bernal MD PhD LAB BLOOD ORDERABLES Final Resu lt [facility] [address] [place] [address], [place] * Phosphorus (10/08/2012 3:00 AM EDT) Phosphorus Blood 3.6 2.5 - 4.5 mg/dL [facility] 10/08/2012 3:00 AM EDT 10/08/2012 4:14 AM EDT us Neida Sotelo LAB BLOOD ORDERABLES Final Re sult [facility] [address] [place] [address], [place] * CT Chest W Contrast (08/12/2012 [...] Most Recently Relevant to Health Maintenance Insurance [facility] Advance Directives Documents on File Type Date Recorded Patient Ibm Mainframe Developer Expl anation Advance Directive 08/27/2012 12:00 AM Adva nce Care Directives Advance Directive 08/27/2012 12:00 AM Adva nce Care Directives Advance Directive 07/22/2012 12:00 AM emre Silva edical Dec Making (Adv.Dir) Care Teams Redevelopment Specialist Relationship Specialty Start Date End Date Kalpana Baptiste MD [address] [place] [address] PCP - General 11/22/20
--- OUTSIDE RECORDS SUMMARY | 2025-04-18 02:44 | XMS_ITS | Encounter Summary ---
Author Organization [employer] Address [address] [facility] [address] 7t [place] [address] Care Team Providers Care Field Identification Specialist Name Role Phone Kalpana Baptiste MD Primary Care Provide r Reason for Visit * Reason Comments Med Refill Encounter Details Date Type Department Care Team ([facility] st Contact Info) Description 01/17/2025 Refill [facility] MEDICINE [address] [place], [place] [phone] Kalpana Baptiste MD [address] [place] [address] Primary osteoarthritis of both knees Social History [...] Clinical Support [facility] [address] [place] [address] Amanda Waldrop, NEGAR 06/22/2025 12:45 PM EST Office Visit [facility] ADULT DENTAL [address] [place] [address] Gloria Corey [address] [place] [address] 07/05/2025 1:00 PM EST Office Visit [facility] OPTOMETRY [address] [place] [address] Beata Holt, OD [address] [place] [address] documented as of this encounter Visit Diagnoses Diagnosis Primary osteoarthritis of both knees documented in this encounter Additional Health Concerns Assessment Noted Time PHQ-9 Depression Total Score: 0 10/16/19 25 3:24 PM EDT documented as of this encounter Care Teams Field Identification Specialist Relationship Specialty Start Date End Date Kalpana Baptiste MD [address] [place] [address] PCP - General Family Medicine 06/14/20 documented as of this encounter
--- OUTSIDE RECORDS SUMMARY | 2025-04-18 02:44 | XMS_ITS | Encounter Summary ---
Author Organization [employer] Address [address] [facility] 7t [place] [address] Care Team Providers Care Tv Technician Name Role Phone Kalpana Baptiste MD Primary Care Provide r Betsy Wray RN Unavailable Unavailable Erika Salidvar Unavailable Reason for Visit * Reason Comments Med Refill Encounter Details Date Type Department Care Team ([facility] Contact Info) Description 10/09/2022 Refill [facility] MEDICINE [address] [place] [address] [phone] Marilyn Corral MD [address] [place], [place] [phone] Moderate persistent asthma without complication Social History [...] Upcoming Encounters Date Type Department Care Team ([facility] Contact Info) Description 05/03/2025 1:00 PM EST Clinical Support [facility] MEDICINE [address] [place] [address] [phone] Amanda Waldrop, RN 06/22/2025 12:45 PM EST Office Visit [facility] ADULT DENTAL [address] [place] [address] Pierre Coreyaris [address] [place], [place] [phone] 07/05/2025 1:00 PM EST Office Visit [facility] OPTOMETRY [address] [place] [address] Beata Holt, OD [address] [place], [place] [phone] documented as of this encounter Visit Diagnoses Diagnosis Moderate persistent asthma without complication documented in this encounter Additional Health Concerns Assessment Noted Time PHQ-9 Depression Total Score: 0 08/22/19 23 10:06 AM EDT documented as of this encounter Care Teams Tv Technician Relationship Specialty Start Date End Date Kalpana Baptiste MD [address] [place], [place] [phone] PCP - General Family Medicine 06/14/20 Betsy Wray RN [address] [place] [phone] Registered Nurse Family Medicine 09/28/24 12/30/24 Erika Saldivar 09/28/24 01/10/25 documented as of this encounter
--- OUTSIDE RECORDS SUMMARY | 2025-04-18 02:44 | XMS_ITS | Encounter Summary ---
Author Organization [employer] Address [address] [facility] 7t [place] [address] Care Team Providers Care Baton Teacher Name Role Phone Kalpana Baptiste MD Primary Care Provide r Betsy Wray RN Unavailable Unavailable Erika Saldivar Unavailable Reason for Visit * Reason Onset Date Comments Med Refill 10/13/2023 Encounter Details Date Type Department Care Team (Late st Contact Info) Description 10/13/2023 Telephone [facility] MEDICINE [address] [place], [place] [phone] Kalpana Baptiste MD [address] [place], [place] [phone] Med Refill Social History Tobacco Use Types [...] 1 g [facility] [address] documented in this encounter Plan of Treatment Upcoming Encounters Date Type Department Care Team (Late st Contact Info) Description 05/03/2025 1:00 PM EST Clinical Support [facility] MEDICINE [address] [place], [place] [phone] Amanda Wadlrop RN 06/22/2025 12:45 PM EST Office Visit [facility] ADULT DENTAL [address] [place], [place] [phone] Gloria Corey [address] [place] [address] 07/05/2025 1:00 PM EST Office Visit [facility] OPTOMETRY [address] [place], [place] [phone] Beata Holt, OD [address] [place] [address] documented as of this encounter Visit Diagnoses Not on filedocumented in this encounter Additional Health Concerns Assessment Noted Time PHQ-9 Depression Total Score: 0 08/22/19 23 10:06 AM EDT documented as of this encounter Care Teams Baton Teacher Relationship Specialty Start Date End Date Kalpana Baptiste MD [address] [place] [address] PCP - General Family Medicine 06/14/20 Betsy Wray RN [address] [place] [address] Registered Nurse Family Medicine 09/28/24 12/30/24 Erika Saldivar 09/28/24 01/10/25 documented as of this encounter
--- OUTSIDE RECORDS SUMMARY | 2025-04-18 02:44 | XMS_ITS | Encounter Summary ---
Author Organization [employer] Address [address] [facility] 7t [place] [address] Care Team Providers Care Degreasing Wheel Operator Name Role Phone Kalpana Baptiste MD Primary Care Provide r Betsy Wray RN Unavailable Unavailable Erika Saldivar Unavailable Reason for Visit * Reason Comments Med Refill Encounter Details Date Type Department Care Team ([facility] st Contact Info) Description 08/28/2023 Refill [facility] MEDICINE [address] [place], [place] [phone] Kalpana Baptiste MD [address] [place], [place] [phone] Primary osteoarthritis of both knees Social History [...] Clinical Support [facility] MEDICINE [address] [place] [address] Amanda Waldrop RN 06/22/2025 12:45 PM EST Office Visit [facility] ADULT DENTAL [address] [place] [address] Pierre Coreyaris [address] [place] [address] 07/05/2025 1:00 PM EST Office Visit [facility] OPTOMETRY [address] [place] [address] Jonathon, Beata, OD [address] [place] [address] documented as of this encounter Visit Diagnoses Diagnosis Primary osteoarthritis of both knees documented in this encounter Additional Health Concerns Assessment Noted Time PHQ-9 Depression Total Score: 0 08/22/19 23 10:06 AM EDT documented as of this encounter Care Teams Degreasing Wheel Operator Relationship Specialty Start Date End Date Kalpana Baptiste MD [address] [place] [address] PCP - General Family Medicine 06/14/20 Betsy Wray RN [address] [place] [phone] Registered Nurse Family Medicine 09/28/24 12/30/24 Erika Saldivar 09/28/24 01/10/25 documented as of this encounter
--- OUTSIDE RECORDS SUMMARY | 2025-04-18 02:44 | XMS_ITS | Encounter Summary ---
Author Organization [employer] Address [address] [facility] 7t [place] [address] Care Team Providers Care Loan Operations Specialist Name Role Phone Kalpana Baptiste MD Primary Care Provide r Betsy Wray RN Unavailable Unavailable Erika Saldivar Unavailable Reason for Visit * Reason Comments Med Refill Encounter Details Date Type Department Care Team ([facility] Contact Info) Description 01/24/2023 Refill [facility] MEDICINE [address] [place] [address] [phone] Kalpana Baptiste MD [address] [place] [address] [phone] Primary osteoarthritis of both knees Social History [...] PM EST Clinical Support [facility] [address] [place] [phone] Amanda Waldrop RN 06/22/2025 12:45 PM EST Office Visit [facility] ADULT DENTAL [address] [place] [address] Pierre Coreyaris [address] [place] [address] 07/05/2025 1:00 PM EST Office Visit [facility] OPTOMETRY [address] [place] [address] Beata Holt, OD [address] [place] [address] documented as of this encounter Visit Diagnoses Diagnosis Primary osteoarthritis of both knees documented in this encounter Additional Health Concerns Assessment Noted Time PHQ-9 Depression Total Score: 0 08/22/19 23 10:06 AM EDT documented as of this encounter Care Teams Loan Operations Specialist Relationship Specialty Start Date End Date Kalpana Baptiste MD [address] [place], [place] [phone] PCP - General Family Medicine 06/14/20 Betsy Wray RN [address] [place] [address] Registered Nurse Family Medicine 09/28/24 12/30/24 Erika Saldivar 09/28/24 01/10/25 documented as of this encounter
--- OUTSIDE RECORDS SUMMARY | 2025-04-18 02:44 | XMS_ITS | Encounter Summary ---
Author Organization [employer] Address [address] [facility] 7t [place] [address] Care Team Providers Care Keymodule Assembly Supervisor Name Role Phone Kalpana Baptiste MD Primary Care Provide r Betsy Wray RN Unavailable Unavailable Erika Saldivar Unavailable Reason for Visit * Reason Comments Med Refill Encounter Details Date Type Department Care Team (Late Contact Info) Description 11/20/2022 Refill [facility] [address] [place] [id number] Abe Dial AGNP Overactive bladder Social History [...] Description 05/03/2025 1:00 PM EST Clinical Support [facility] [address] [place], [place] [phone] Amanda Waldrop RN 06/22/2025 12:45 PM EST Office Visit [facility] ADULT DENTAL [address] [place], [place] [phone] Gloria Corey [address] [place], [place] [phone] 07/05/2025 1:00 PM EST Office Visit [facility] OPTOMETRY [address] [place], [place] [phone] Beata Holt, OD [address] [place], [place] [phone] documented as of this encounter Visit Diagnoses Diagnosis Overactive bladder Hypertonicity of bladder documented in this encounter Additional Health Concerns Assessment Noted Time PHQ-9 Depression Total Score: 0 08/22/19 23 10:06 AM EDT documented as of this encounter Care Teams Keymodule Assembly Supervisor Relationship Specialty Start Date End Date Kalpana Baptiste MD [address] [place] [address] [phone] PCP - General Family Medicine 06/14/20 Betsy Wray RN [address] [place] [phone] Registered Nurse Family Medicine 09/28/24 12/30/24 Erika Saldivar 09/28/24 01/10/25 documented as of this encounter
--- OUTSIDE RECORDS SUMMARY | 2025-04-18 02:44 | XMS_ITS | Encounter Summary ---
Author Organization [employer] Address [address] [facility] [address] 7[address] [place] [address] Care Team Providers Care Open Developer Operator Name Role Phone Kalpana Baptiste MD Primary Care Provide r Reason for Visit * Reason Comments Med Refill Encounter Details Date Type Department Care Team ([facility] st Contact Info) Description 02/01/[address] [facility] MEDICINE [address] [place], [place] [phone] Kalpana Baptiste MD [address] [place] [address] Primary osteoarthritis of both knees Social History [...] PM EST Clinical Support [facility] MEDICINE [address] [place] [address] Amanda Waldrop, NEGAR 06/22/2025 12:45 PM EST Office Visit [facility] ADULT DENTAL [address] [place] [address] Gloria Corey [address] [place] [address] 07/05/2025 1:00 PM EST Office Visit [facility] OPTOMETRY [address] [place] [address] Beata Holt, OD [address] [place] [address] documented as of this encounter Visit Diagnoses Diagnosis Primary osteoarthritis of both knees documented in this encounter Additional Health Concerns Assessment Noted Time PHQ-9 Depression Total Score: 0 10/16/19 25 3:24 PM EDT documented as of this encounter Care Teams Open Developer Operator Relationship Specialty Start Date End Date Kalpana Baptiste MD [address] [place] [address] PCP - General Family Medicine 06/14/20 documented as of this encounter
--- OUTSIDE RECORDS SUMMARY | 2025-04-18 02:44 | XMS_ITS | Encounter Summary ---
Author Organization [employer] Address [address] [facility] 7t [place] [address] Care Team Providers Care Tank Cleaner Name Role Phone Kalpana Baptiste MD Primary Care Provide r Betsy Wray RN Unavailable Unavailable Erika Saldivar Unavailable Reason for Visit * Reason Comments Med Refill Encounter Details Date Type Department Care Team (Late Contact Info) Description 10/04/2022 Refill [facility] [address] [place] [address] Tootie Tineo ANP [address] [place] [address] Social History Tobacco Use Types Packs/Day Years [...] 1:00 PM EST Clinical Support [facility] [address] [place] [address] Amanda Waldrop RN 06/22/2025 12:45 PM EST Office Visit [facility] ADULT DENTAL [address] [place] [address] Leora Gloria [address] [place] [address] 07/05/2025 1:00 PM EST Office Visit [facility] OPTOMET[facility] [address] [place] [address] Beata Holt, OD [address] [place] [address] documented as of this encounter Visit Diagnoses Not on filedocumented in this encounter Additional Health Concerns Assessment Noted Time PHQ-9 Depression Total Score: 0 08/22/19 23 10:06 AM EDT documented as of this encounter Care Teams Tank Cleaner Relationship Specialty Start Date End Date Kaplana Baptiste MD [address] [place], [place] [phone] PCP - General Family Medicine 06/14/20 Betsy Wray RN [address] [place] [address] Registered Nurse Family Medicine 09/28/24 12/30/24 Erika Saldivar 09/28/24 01/10/25 documented as of this encounter
--- OUTSIDE RECORDS SUMMARY | 2025-04-18 02:45 | XMS_ITS | Encounter Summary ---
Author Organization [employer] Address [address] [facility] 7t [place] [address] Care Team Providers Care Geosciences Faculty Member Name Role Phone Kalpana Baptiste MD Primary Care Provide r Betsy Wray RN Unavailable Unavailable Erika Saldivar Unavailable Reason for Visit * Reason Comments Med Refill Encounter Details Date Type Department Care Team ([facility] st Contact Info) Description 09/20/2024 Refill [facility] [address] [place], [place] [phone] Kalpana Baptiste MD [address] [place], [place] [phone] Type 2 diabetes mellitus with other specified complication, unspecified whether buttermaker insulin use ([facility]) Social History Tobacco Use Types [...] [facility] [address] [place] [address] Amanda Waldrop RN 06/22/2025 12:45 PM EST Office Visit [facility] ADULT DENTAL [address] [place] [address] Leora, Gloria [address] [place] [address] 07/05/2025 1:00 PM EST Office Visit [facility] OPTOMETRY [address] [place] [address] Jonathon, Beata, OD 230 [place] [address] documented as of this encounter Visit Diagnoses Diagnosis Type 2 diabetes mellitus with other specified complication, unspecified whether halfway insulin use (HCC) documented in this encounter Additional Health Concerns Assessment Noted Time PHQ-9 Depression Total Score: 0 05/06/19 25 2:15 PM EST documented as of this encounter Care Teams Geosciences Faculty Member Relationship Specialty Start Date End Date Kalpana Baptiste MD [address] [place], [place] [phone] PCP - General Family Medicine 06/14/20 Betsy Wray RN [address] [place] [address] Registered Nurse Family Medicine 09/28/24 12/30/24 Erika Saldivar 09/28/24 01/10/25 documented as of this encounter
--- OUTSIDE RECORDS SUMMARY | 2025-04-18 02:45 | XMS_ITS | Encounter Summary ---
Author Organization [employer] Address [address] [facility] 7t [place] [address] Care Team Providers Care Operating Engineer Apprentice Name Role Phone Kalpana Baptiste MD Primary Care Provide r Betsy Wray RN Unavailable Unavailable Erika Saldivar Unavailable Reason for Visit * Reason Comments Med Refill Encounter Details Date Type Department Care Team ([facility] st Contact Info) Description 03/23/2024 Refill [facility] [address] [place], [place] [phone] Kalpana Baptiste MD [address] [place] [address] Type 2 diabetes mellitus with other specified complication, unspecified whether parts counterman insulin use ([facility]); Primary osteoarthritis of both knees [...] Clinical Support [facility] MEDICINE [address] [place] [address] Amanda Waldrop RN 06/22/2025 12:45 PM EST Office Visit [facility] ADULT DENTAL [address] [place] [address] Gloria Corey [address] [place] [address] 07/05/2025 1:00 PM EST Office Visit [facility] OPTOMETRY [address] [place] [address] Jonathon, Beata, OD [address] [place] [address] documented as of this encounter Visit Diagnoses Diagnosis Type 2 diabetes mellitus with other specified complication, unspecified whether parts counterman insulin use (HCC) Primary osteoarthritis of both knees documented in this encounter Additional Health Concerns Assessment Noted Time PHQ-9 Depression Total Score: 0 08/22/19 23 10:06 AM EDT documented as of this encounter Care Teams Operating Engineer Apprentice Relationship Specialty Start Date End Date Kalpana Baptiste MD [address] [place] [address] PCP - General Family Medicine 06/14/20 Betsy Wray, NEGAR [address] [facility] [place] [address] Registered Nurse Family Medicine 09/28/24 12/30/24 Erika Saldivar 09/28/24 01/10/25 documented as of this encounter
--- OUTSIDE RECORDS SUMMARY | 2025-04-18 02:45 | XMS_ITS | Encounter Summary ---
Author Organization [employer] Address [address] [facility] 7t [place] [address] Care Team Providers Care Patient Transport Orderly Name Role Phone Kalpana Baptiste MD Primary Care Provide r Betsy Wray RN Unavailable Unavailable Erika Saldivar Unavailable Encounter Details Date Type Department Care Team (Latest Contact Info) Description 06/07/2020 Abstract [facility] CONVERSIONS Dental, Provider, DDS Social History [...] 05/03/2025 1:00 PM EST Clinical Support [facility] MEDICINE [address] [place] [address] Amanda Waldrop, RN 06/22/2025 12:45 PM EST Office Visit [facility] ADULT DENTAL [address] [place] [address] Gloria Corey [address] [place] [address] 07/05/2025 1:00 PM EST Office Visit [facility] OPTOMETRY [address] [place] [address] Beata Holt, OD [address] [place] [address] documented as of this encounter Visit Diagnoses Not on filedocumented in this encounter Care Teams Patient Transport Orderly Relationship Specialty Start Date End Date Kalpana Baptiste MD [address] [place], [place] [phone] PCP - General Family Medicine 06/14/20 Betsy Wray RN [address] [place] [address] Registered Nurse Family Medicine 09/28/24 12/30/24 Erika Saldivar 09/28/24 01/10/25 documented as of this encounter
--- OUTSIDE RECORDS SUMMARY | 2025-04-18 02:45 | XMS_ITS | Encounter Summary ---
Author Organization [employer] Address [address] [facility] 7t [place] [address] Care Team Providers Care Sounding Device Operator Name Role Phone Kalpana Baptiste MD Primary Care Provide r Betsy Wray RN Unavailable Unavailable Erika Saldivar Unavailable Reason for Visit * Reason Comments Med Refill Encounter Details Date Type Department Care Team ([facility] st Contact Info) Description 02/09/2024 Refill [facility] MED[facility]INE [address] [place], [place] [phone] Caryl Biggs MD [address] [place] [address] Primary osteoarthritis of both knees Social History [...] 05/03/2025 1:00 PM EST Clinical Support [facility] MED[facility]INE [address] [place] [address] Amanda Waldrop RN 06/22/2025 12:45 PM EST Office Visit [facility] ADULT DENTAL [address] [place] [address] Pierre Coreyaris [address] [place] [address] 07/05/2025 1:00 PM EST Office Visit [facility] OPTOMETRY [address] [place] [address] Jonathon, Beata, OD [address] [place] [address] documented as of this encounter Visit Diagnoses Diagnosis Primary osteoarthritis of both knees documented in this encounter Additional Health Concerns Assessment Noted Time PHQ-9 Depression Total Score: 0 08/22/19 23 10:06 AM EDT documented as of this encounter Care Teams Sounding Device Operator Relationship Specialty Start Date End Date Kalpana Baptiste MD [address] [place] [phone] PCP - General Family Medicine 06/14/20 Betsy Wray RN [address] [place] [address] Registered Nurse Family Medicine 09/28/24 12/30/24 Erika Saldivar 09/28/24 01/10/25 documented as of this encounter
--- OUTSIDE RECORDS SUMMARY | 2025-04-18 02:45 | XMS_ITS | Encounter Summary ---
Author Organization [employer] Address [address] [facility] 7t [place] [address] Care Team Providers Care Housing Officer Name Role Phone Kalpana Baptiste MD Primary Care Provide r Betsy Wray RN Unavailable Unavailable Erika Saldivar Unavailable Reason for Visit * Reason Onset Date Comments Med Refill 06/03/2023 Encounter Details Date Type Department Care Team ([facility] st Contact Info) Description 06/03/2023 Telephone [facility] MEDICINE [address] [place], [place] [phone] Kalpana Baptiste MD [address] [place], [place] [phone] Med Refill Social History Tobacco Use Types [...] Metformin 500 mg To be sent to: [facility] - [address] documented in this encounter Plan of Treatment Upcoming Encounters Date Type Department Care Team (Late st Contact Info) Description 05/03/2025 1:00 PM EST Clinical Support [facility] MEDICINE [address] [place], [place] [phone] Amanda Waldrop RN 06/22/2025 12:45 PM EST Office Visit [facility] ADULT DENTAL [address] [place], [place] [phone] Gloria Corey [address] [place] [address] 07/05/2025 1:00 PM EST Office Visit [facility] OPTOMETRY [address] [place], [place] [phone] Beata Holt, OD 230 [place] [address] documented as of this encounter Visit Diagnoses Not on filedocumented in this encounter Additional Health Concerns Assessment Noted Time PHQ-9 Depression Total Score: 0 08/22/19 23 10:06 AM EDT documented as of this encounter Care Teams Housing Officer Relationship Specialty Start Date End Date Kalpana Baptiste MD [address] [place] [address] PCP - General Family Medicine 06/14/20 Betsy Wray RN [address] [place] [address] Registered Nurse Family Medicine 09/28/24 12/30/24 Erika Saldivar 09/28/24 01/10/25 documented as of this encounter
--- OUTSIDE RECORDS SUMMARY | 2025-04-18 02:45 | XMS_ITS | Clinical Summary ---
Author Organization [employer] Address [address] [place] [address] Care Team Providers Care Embedded Linux Developer Name Role Phone Kalpana Baptiste MD [...] tablet Take 5 mg by mouth. Active melatonin 3 MG tablet TAKE 1 TABLET BY MOUTH EVERY DAY AT BEDTIME FOR SLEEP Active dicyclomine (Bentyl) 20 MG tablet 023 Active ondansetron ODT (Zofran-ODT) 4 MG disintegrating tablet 023 Active Blood Glucose Monitoring Suppl (FreeStyle Sheridan Lite) w/Device kitIndications:Ty pe 2 diabetes mellitus with stage 3 chronic kidney disease, without long-term current use of insulin, unspecified whether stage 3a or 3b CKD (HCC) Use to test blood sugar 2 times daily 1 kit 024 Active polyvinyl alcohol (Liquifilm Tears) 1.4 % ophthalmic solutionIndicatio ns:Dry eyes one drop in each eye at least 2 times a day, more if burning 15 mL 1 024 Active dextran 70-hypromellose PF (GenTeal Tears Moderate PF) 0.1-0.3 % ophthalmic solutionIndicatio ns:Dry eyes INSTILL ONE DROP IN EACH EYE THREE TIMES A DAY (MORNING, NOON, AND BEDTIME) NEEDED (BULK) 36 each 1 024 Active pravastatin (Pravachol) 40 MG tabletIndications :Other hyperlipidemia TAKE ONE TABLET BY MOUTH AT BEDTIME (VIAL) 30 tablet 11 024 Active Neomycin-Polymyxi n-HC 1 % solutionIndicatio ns:Chronic otitis externa of left ear, unspecified type Administer 3 drops into affected ear(s) 4 times daily. 10 mL 024 Active Additional Information Patient not taking.Reported on 10/26/2024 hydroCHLOROthiazi de 12.5 MG tabletIndications :Primary hypertension [...] unspecified whether stage 3a or 3b CKD (HCC) USE 1 LANCET TWO TIMES A DAY (BULK) 100 each 11 025 Active oxyCODONE (Roxicodone) 5 MG immediate release tablet Take 1 tablet by mouth every 6 (six) hours if needed for severe pain. 06/07/2 025 Active pantoprazole (ProtoNix) 40 MG EC tabletIndications :Indigestion TAKE 1 TABLET BY MOUTH ONCE DAILY (VIAL) 30 tablet 11 Active albuterol (2.5 MG/3ML) 0.083% nebulizer solution INHALE THE CONTENTS OF 1 VIAL VIA NEBULIZER THREE TIMES A DAY DIRECTED (BULK) 75 mL Active colchicine 0.6 MG tabletIndications :Chronic gout [...] OF BREATH OR WHEEZING (BULK) 18 g 025 Active sucralfate (Carafate) 1 g tabletIndications :Heartburn TAKE ONE TABLET BY MOUTH THREE TIMES A DAY, BEFORE BREAKFAST, BEFORE LUNCH, AND BEFORE DINNER (VIAL) 90 tablet 5 025 Active amLODIPine (Norvasc) 10 MG tabletIndications :Primary hypertension TAKE ONE TABLET BY MOUTH EVERY DAY (VIAL) 90 tablet 1 025 Active Acetaminophen Extra Strength 500 MG [...] MD. (BULK) 30 patch 1 025 Active metFORMIN (Glucophage) 500 MG tabletIndications :Type 2 diabetes mellitus with other specified complication, unspecified whether intermediate project manager insulin use (HCC) TAKE ONE TABLET BY MOUTH TWICE A DAY WITH MEALS 56 tablet 11 025 Active fluticasone (Flonase) 50 MCG/ACT nasal spray USE 2 SPRAYS IN EACH NOSTRIL EVERY MORNING NEEDED (BULK) 48 g 3 Active losartan (Cozaar) 25 MG tabletIndications :Primary hypertension TAKE ONE TABLET BY MOUTH EVERY DAY (VIAL) 30 tablet 11 Active Mounjaro 5 MG/0.5ML solution auto-injectorIndi cations:Type 2 diabetes mellitus with stage 3 chronic kidney disease, without long-term current use of insulin, unspecified whether stage 3a or 3b CKD (HCC) INJECT 5MG UNDER THE SKIN ONCE WEEKLY (START AFTER COMPLETING 4 WEEKS OF 2.5MG) 2 mL 1 Active Alcohol Swabs (Easy Touch Alcohol Prep Medium) 70 % pads Apply 1 each topically Once per day. 100 each 11 025 Active glucose blood (FREESTYLE LITE) test stripIndications: Type 2 diabetes mellitus with stage 3 chronic kidney disease, without long-term current use of insulin, unspecified whether stage 3a or 3b CKD (HCC) USE TO CHECK BLOOD SUGAR ONCE A DAY 50 each 025 Active traMADol (Ultram) 50 MG tabletIndications :Primary osteoarthritis of both knees Take 1 tablet (50 mg) by mouth every 6 (six) hours if needed for severe pain for up to 28 days. Do not start before April 14, 2025. 112 tablet 025 2025 Active naloxone (Narcan) 4 mg/0.1 mL nasal spray ADMINISTER 1 SPRAY INTO AFFECTED NOSTRIL NEEDED FOR OPIOID REVERSAL (BULK) 2 each 2 Active tolterodine LA (Detrol LA) 4 MG 24 hr capsuleIndication s:Overactive bladder TAKE 1 CAPSULE BY MOUTH EVERY MORNING 90 capsule 1 025 Active mirtazapine (Remeron) 15 MG tablet Take 1 tablet by mouth at bed time. 022 2023 Discontinued(D uplicate order (will not trigger notification to Pharmacy)) tolterodine LA (Detrol LA) 4 MG 24 hr capsuleIndication s:Overactive bladder Take 1 capsule (4 mg) by mouth in the morning. 90 capsule 1 023 2024 Discontinued(R eorder (will not trigger notification to Pharmacy)) Alcohol Swabs (Easy Touch Alcohol Prep Medium) 70 % pads USE 1 SWAB ONCE DAILY (BULK) 100 each 11 024 2024 Discontinued(R eorder (will not trigger notification to Pharmacy)) FREESTYLE LITE test strip USE TO TEST BLOOD SUGAR ONCE DAILY AND DIRECTED (BULK) 50 strip 11 024 2024 Discontinued(R eorder (will not trigger notification to Pharmacy)) losartan (Cozaar) 25 MG tabletIndications :Primary hypertension Take 1 tablet (25 mg) by mouth Once per day. 30 tablet 11 025 2024 Discontinued naloxone (Narcan) 4 mg/0.1 mL nasal spray ADMINISTER 1 SPRAY INTO AFFECTED NOSTRIL NEEDED FOR OPIOID REVERSAL (BULK) 2 each 2 025 2024 Discontinued(R eorder (will not trigger notification to Pharmacy)) Mounjaro 5 MG/0.5ML solution auto-injectorIndi cations:Type 2 diabetes mellitus with stage 3 chronic kidney disease, without long-term current use of insulin, unspecified whether stage 3a or 3b CKD ([facility]) INJECT 5MG UNDER THE SKIN ONCE WEEKLY (START AFTER COMPLETING 4 WEEKS OF 2.5MG DOSE) 2 mL 1 025 2024 Discontinued traMADol (Ultram) 50 MG tabletIndications :Primary osteoarthritis of both knees Take 1 tablet (50 mg) by mouth every 6 (six) hours if needed for severe pain for up to 28 days. Do not start before March 16, 2025. 112 tablet 2024 Discontinued(R eorder (will not trigger notification to Pharmacy)) glucose blood (FREESTYLE LITE) test strip To read glucose 50 strip 11 025 2024 Discontinued Active Problems Problem Noted Date Diagnosed Date Long-term current use of opiate analgesic 2024 Anxiety 10/26/2024 Chronic kidney disease, stage 3 ([facility]/HCC) 2024 Encounter for screening colonoscopy 10/26/2024 Depression 10/26/2024 Calculus of kidney 10/26/2024 Diabetes 10/26/2024 Gastroenteritis and colitis, viral 10/09/2024 Rotavirus enteritis 10/09/2024 [id number]-[id number] kidney injury 10/09/2024 Acute metabolic acidosis 10/04/2024 Migraines 08/13/2024 Osteoporosis 08/13/2024 Myelodysplastic syndrome (CMS/HCC) 08/13/2024 Influenza A 08/05/2024 Assessment & Plan [...] on next appointment 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) Assessment & Plan (10/26/2024 4:25 PM EDT): [...] spur 12/16/2022 History of gastritis 12/16/2022 Meningioma (CMS/HCC) 12/16/2022 Osteoarthritis of wrist 12/16/2022 Pain of [...] renewed, she will be call for her SECONDS INSPECTOR appointment Steatosis of liver 05/14/2022 CKD stage [...] - Continue current medications Assessment & Plan (01/28/2025 4:34 PM EDT): Diabetes is: controlled - Lab Results Component Value Date HGBA1C 5.1 08/05/2024 HGBA1C 6.0 02/25/2024 HGBA1C 5.7 11/25/2023 - Lab Results Component Value Date MICROALBUR 84.0 01/28/2025 CREATININE 2.31 (H) 01/28/2025 CREATININE 2.23 (H) 01/28/2025 -Changes: I will start patient today on Mounjaro 2.5 mg weekly continue with metformin - Diabetic eye up-to-date - Diabetic foot exam: Pending - Continue lifestyle modifications - Continue current medications - Follow up: 3 months Assessment & Plan (10/26/2024 4:25 PM EDT): [...] -Changes: Today I decided to discontinue her Pradeep A1c is trending down (in spite of [...] rhinitis 03/02/2015 Anemia 03/02/2015 Chronic myeloproliferative disease (CMS/HCC) Depressive disorder 03/02/2015 Indigestion 03/02/2015 Obesity 03/02/2015 Obstructive sleep apnea syndrome 03/02/2015 Assessment & Plan (06/21/2022 5:04 PM EST): Referral to sleep medicine ordered Acute pharyngitis 12/29/2013 Cough 06/16/2013 Chronic hbtlm-gmfkqw-mcdt disease (CMS/HCC) 05/05 Headache 03/24/2013 Dysuria 12/30/2012 Abdominal pain, epigastric [...] (every 6 hours) High cholesterol 03/06/2012 Myelofibrosis (CMS/HCC) 03/06/2012 Assessment & Plan (10/26/2024 4:25 PM [...] Encounters Date Type Department Care Team Description 04/15/2025 Refill [facility] [address] [place] [address] Kalpana Baptiste MD Chronic tension-type headache, not intractable; Primary osteoarthritis of both knees 04/14/2025 Refill [facility] [address] [place] [address] Kalpana Baptiste MD Overactive bladder 04/11/2025 Refill [facility] [address] [place] [address] Kalpana Baptiste MD Primary osteoarthritis of both knees 04/06/2025 Refill [facility] [address] [place] [address] Kalpana Baptiste MD Primary osteoarthritis of both knees 04/06/2025 Refill [facility] [address] [place] [address] Kalpana Baptiste MD Type 2 diabetes mellitus with stage 3 chronic kidney disease, without long-term current use of insulin, unspecified whether stage 3a or 3b CKD (HCC) 04/04/2025 Refill [facility] [address] [place] [address] Kalpana Baptiste MD Primary osteoarthritis of both knees 03/22/2025 Orders Only [facility] [address] [place] [address] Kalpana Baptiste MD 03/21/2025 Refill [facility] [address] [place] [address] Kalpana Baptiste MD Primary hypertension; Type 2 diabetes mellitus with stage 3 chronic kidney disease, without long-term current use of insulin, unspecified whether stage 3a or 3b CKD (HCC) 03/16/2025 Telephone [facility] [address] [place] [address] Kalpana Baptiste MD Med Refill 03/16/2025 Telephone [facility] [address] [place] [address] Kalpana Baptiste MD Med Refill; Tramadol at pharmacy as of 03/14/25 03/10/2025 Refill [facility] [address] [place] [address] Kalpana Baptiste MD Primary osteoarthritis of both knees 03/10/2025 Refill [facility] [address] [place] [address] Kalpana Baptiste MD Chronic tension-type headache, not intractable; Chronic bilateral low back pain, unspecified whether sciatica present; Type 2 diabetes mellitus with other specified complication, unspecified whether senior care insulin use (HCC) 02/17/2025 Refill [facility] [address] [place] [address] Kalpana Baptiste MD Chronic tension-type headache, not intractable; Chronic bilateral low back pain, unspecified whether sciatica present; Type 2 diabetes mellitus with other specified complication, unspecified whether intermediate project manager insulin use (HCC); Primary osteoarthritis of both knees 02/10/2025 Telephone [facility] [address] [place] [address] Kalpana Baptiste MD Med Refill 02/09/2025 Orders Only [facility] [address] [place] [address] Kalpana Baptiste MD 02/08/2025 Refill [facility] [address] [place] [address] Kalpana Baptiste MD Type 2 diabetes mellitus with stage 3 chronic kidney disease, without long-term current use of insulin, unspecified whether stage 3a or 3b CKD (HCC) 02/08/2025 Refill [facility] [address] [place] [address] Kalpana Baptiste MD Primary osteoarthritis of both knees 02/01/2025 Refill [facility] [address] [place] [address] Kalpana Baptiste MD Primary osteoarthritis of both knees 01/28/2025 11:00 AM EDT Office Visit [facility] [address] [place] [address] Kalpana Baptiste MD CKD stage 3 due to type 2 diabetes mellitus ([facility]) (Primary Dx); Type 2 diabetes mellitus with stage 3 chronic kidney disease, without long-term current use of insulin, unspecified whether stage 3a or 3b CKD ([facility]); Encounter for immunization 01/28/2025 Orders Only GENERIC EXTERNAL DATA DEPARTMENT Provider, Generic External Data 01/28/2025 Travel 01/26/2025 2:00 PM EDT Clinical Support [facility] [address] [place] [phone] Amanda Waldrop RN Long-term current use of opiate analgesic (Primary Dx) 01/26/2025 Travel 01/26/[address] [address] Kalpana Baptiste MD chart prep 01/19/2025 Refill [facility] [address] [place] [address] Kalpana Baptiste MD Primary hypertension 01/17/2025 Refill [facility] [address] [place] [address] Kalpana Baptiste MD Primary osteoarthritis of both knees from Last 3 Months Immunizations Immunization Administration [...] Support [facility] [address] [place] [address] Amanda Waldrop RN 06/22/2025 12:45 PM EST Office Visit [facility] ADULT DENTAL [address] [place] [address] Gloria Corey [address] [place] [address] 07/05/2025 1:00 PM EST Office Visit [facility] OPTOMETRY [address] [place] [address] Jonathon, Beata, OD [address] [place] [address] Health Maintenance Due Date Last Done Comments CT Colonography 1965 FIT DNA/Cologuard 1965 FIT 1965 FOBT 1965 Sigmoidoscopy 1965 Disability Screening 1965 Pap Smear 1984 HPV/Cotest 1993 RSV Patients and Patients Aged 60 years or older (1 - Risk 50-74 years 1-dose series) 2013 Hepatitis A Vaccines (2 of 2 - Risk 2-dose series) 04/15/2019 10/14/2018 Colonoscopy 07/05/2020 07/06/2015 Colorectal Cancer Screening 07/05/2020 Dental Oral Exam 12/30/2022 07/01/2022 Dental Prophylaxis 12/30/2022 07/01/2022 Diabetes: Foot Exam 08/22/2023 08/21/2022, Dental X-Ray: Bitewings 12/18/2024 12/18/2023, 07/01 COVID-19 Vaccine (5 - 2025-26 season) 2025 02/25/2024, 05/08/2021, 07/05/2020, Additional history exists Diabetes: Hemoglobin A1C 02/04/2025 025, 02/25/2024, 11/25/2023, Additional history exists Dental X-Ray: Full Mouth 07/02/2025 07/01/2022 Mammogram 09/01/2025 09/01/2024, 08/04, 08/21/2022, Additional history exists Depression Screening 10/15/2025 10/15/2024, 10/16/19 SDOH Screening 10/15/2025 10/15/2024 Alcohol/Substance Use Screening 10/26/2025 10/26/2024 Lipid Panel 01/28/2026 01/28/2025, 08/03, 07/13/2021, Additional history exists Tobacco Screening 01/28/2026 01/28/2025 Eye Exam 06/22/2026 [...] on patient's age to complete this topic Goals Goal Patient Goal Type Associated Problems [...] Care Plan Weekly blood pressure task No MohrEliazar unger Weekly blood pressure task Care Plan Weekly [...] Care Plan Weekly blood pressure task No Neida Bower LPN Weekly blood pressure task Care Plan Weekly blood pressure task No Neida Bower LPN Weekly blood pressure task Care Plan Weekly blood pressure task No Silvana Bowerfer BRAINER Patient has chronic kidney disease Care Plan Patient has chronic kidney disease No Neida Bower LPN Patient has chronic kidney disease Care Plan Patient has chronic kidney disease No Neida Bower LPN Patient has chronic kidney disease Care Plan Patient has chronic kidney disease No Neida Bower LPN Patient has diabetic neuropathy Care Plan Patient has diabetic neuropathy No Neida Bower LPN Patient has diabetic neuropathy Care Plan Patient has diabetic neuropathy No Neida Bower LPN Patient has diabetic neuropathy Care Plan Patient has diabetic neuropathy No Neida Bower LPN Weekly blood pressure task Care Plan Weekly blood pressure task No Eliazar Mohr Weekly blood pressure task Care Plan Weekly blood pressure task No Onur, Eliazar Weekly blood pressure task Care Plan Weekly blood pressure task No Onur, Eliazar Patient has chronic kidney [...] Patient has diabetic neuropathy No Terri Perez Procedures Procedure Name Priority Date/Time Associated Diagnosis Comments XR HAND 3+ VIEWS RIGHT Routine 5 11:44 PM EST COMPREHENSIVE METABOLIC PANEL Routine 01/28/2025 12:11 PM EDT CBC WITH AUTO DIFFERENTIAL Routine 01/28/2025 12:11 PM EDT COMPREHENSIVE METABOLIC PANEL Routine 01/28/2025 12:11 PM EDT Type 2 diabetes mellitus with stage 3 chronic kidney disease, without long-term current use of insulin, unspecified whether stage 3a or 3b CKD (CMS/[facility]) ALBUMIN, RANDOM URINE W/CREATININE Routine 01/28/2025 12:11 PM EDT Type 2 diabetes mellitus with stage 3 chronic kidney disease, without long-term current use of insulin, unspecified whether stage 3a or 3b CKD (CMS/HCC) LIPID PANEL, STANDARD Routine 01/28/2025 12:11 PM EDT Type 2 diabetes mellitus with stage 3 chronic kidney disease, without long-term current use of insulin, unspecified whether stage 3a or 3b CKD (CMS/HCC) POCT GLUCOSE Routine 01/28/2025 11:42 AM EDT Type 2 diabetes mellitus with stage 3 chronic kidney disease, without long-term current use of insulin, unspecified whether stage 3a or 3b CKD (CMS/HCC) POCT MARY-14 URINE DRUG SCREEN Routine 01/26/2025 [...] coverage crown needed for root canal-treated tooth PERIODIC ORAL EVALUATION - ESTABLISHED PATIENT Routine 07/01/2022 2:00 PM EST PROPHYLAXIS - ADULT Routine 07/01/2022 1 :00 PM EST Dental calculus Periodontal disease INTRAORAL - COMPLETE SERIES OF RADIOGRAPHIC IMAGES Routine 07/01/2022 1:00 PM EST Dental calculus Periodontal disease Dental caries HM COLONOSCOPY Routine 07/06/2015 from Last 3 Months or Most Recently Relevant to Health Maintenance Results * XR Hand 3+ Views Right (04/17/2025 11:44 PM EST) Anatomical Region Laterality Modality Upper Extremities, Hand Right Radiogra phic Imaging 04/17/2025 11:4 4 PM EST Narrative 04/17/2025 11:45 PM EST [address] [address] XRay Report Signed Patient: Santa Kate MR#: [id number] [birth year] : 1965 Acct:[id number] Age/Sex: 60 / F ADM Date: 04/17/25 Loc: HO.ED Attending Dr: Ordering Physician: Generic ED Physician Date of Service: 04/17/25 Procedure(s): XR hand RT min 3V Accession Number(s): [id number] cc: Kalpana Baptiste MD; Generic ED Physician [...] signed by Jeremy Elaine MD in OV> 04/17/255 DD/ 43 TD/TT: 04/17/252343 Mold Filling Operator: Procedure Note Donotuseinterpreter, Image - 04/17/[address] [address] XRay Report Signed Patient: Dante KateR#: [id number] 74 : 1965Acct:[id number] Age/Sex: 60 / FADM Date: 04/17/25 Loc: HO.ED Attending Dr: Ordering Physician: Generic ED Physician Date of Service: 04/17/25 Procedure(s): XR hand RT min 3V Accession Number(s): [id number] cc: Kalpana Baptiste MD; Generic ED Physician [...] in OV> 04/17/252344 DD/ 43 TD/TT: 04/17/252343 Mold Filling Operator: us [facility] External Provider IMG XR PROCEDURES Edited Result - Final * (ABNORMAL) Albumin, Random Urine W/Creatinine (01/28/2025 12:11 PM EDT) Creatinine, Urine 79.84 mg/dL [facility] Microalbumin Urine 84.0 mg/L [facility] Microalbum Creatinine Ratio Ur 105.2(H) <30 ug/mg cr [facility] Comment:Albumin/Creatinine R atio Reference Ranges: Normal: < 30 ug/mg creatinine Microalbuminuria: 30 - 300 ug/mg creatinineClinical Albuminuria: > 300 ug/mg creatinine Urine (Urine, Random) 01/28/2025 12:11 PM EDT 01/28/2025 1:16 PM EDT Kalpana Steele MD LAB URINE ORDERABLES Final Result [facility] [address] [place] [phone] * (ABNORMAL) CBC auto differential (01/28/2025 12:11 PM EDT) White Blood Count 4.6(L) 4.8 - 10.8 X10*3/uL [facility] Red Blood Count 3.30(L) 4.20 - 5.50 X10*6/uL [facility] Hemoglobin 10.0(L) 12.0 - 16.0 g/dl [facility] Hematocrit 30.2(L) 37.0 - 47.0 % [facility] Mean Corpuscular Volume 91.5 80.0 - 98.0 fL [facility] Mean Corpuscular Hemoglobin 30.3 27.0 - 33.0 pg [facility] Mean Corpuscular HGB Conc 33.1 31.0 - 35.0 g/dl [facility] Red Cell Distribution Width 13.5 11.0 - 16.0 % [facility] Platelet Count 229 160 - 400 X10*3/uL [facility] Mean Platelet Volume 9.7 9.4 - 12.3 fL [facility] Neutrophils Percent Auto 46.1 45 - 73 % [facility] Imm Gran Pct Auto 0.4 0.0 - 0.4 % [facility] Lymphocytes Percent Auto 42.2(H) 20 - 40 % [facility] Monocytes Percent Auto 9.6 2 - 11 % [facility] Eosinophils Percent Auto 1.5 0 - 4 % [facility] Basophils Percent Auto 0.2 0 - 2 % [facility] NRBC Pct Auto 0.0 0.0 - 0.2 /100WBC [facility] Neutrophils Absolute Auto 2.1 2.0 - 8.3 x10*3/uL [facility] Imm Gran Abs Auto 0.02 0.00 - 0.03 X10*3/uL [facility] Lymphocytes Absolute Auto 1.9 1.2 - 4.9 X10*3/uL [facility] Monocytes Absolute Auto 0.4 0.1 - 1.2 X10*3/uL [facility] Eosinophils Absolute Auto 0.1 0.0 - 0.4 X10*3/uL [facility] Basophils Absolute Auto 0.0 0.0 - 0.2 X10*3/uL [facility] NRBC Abs Auto 0.000 0.0 - 0.012 X10*3/uL [facility] 01/28/2025 12:1 1 PM EDT 01/28/2025 12:58 PM EDT us Generic External Data Provider LAB BLOOD ORDERAB LES Final Result [facility] [address] [place] [address] [phone] * (ABNORMAL) Lipid Panel, Standard (01/28/2025 12:11 PM EDT) Triglycerides 204(H) <150 mg/dL [facility] Comment:Desirable Triglyceri de: less than 150 mg/dLBorderline High Triglyceride 150-199 mg/dLHigh Triglyceride: 200-499 mg/dLVery High Triglyceride: greater than or equal to 5OO mg/dL Cholesterol 191 <200 mg/dL [facility] Comment:Desirable Cholestero l: less than 200 mg/dLBorderline High Cholesterol: 200-239 mg/dLHigh Cholesterol: greater than 239 mg/dL LDL Cholesterol Calculated 90 <100 mg/dL [facility] Comment:Desirable LDL: less than 100 mg/dLNear Optimal/Above Optimal LDL: 110- 129 mg/dLBorderline High LDL: 130-159 mg/dLHigh LDL: 160-189 mg/dLVery High LDL: greater than or equal to 190 mg/dL HDL Cholesterol 61 >40 mg/dL [facility] Comment:Desirable HDL: great er than 40 mg/dL Note: This HDL assay may give artificially low results in patients with liver disease. Blood Venous blood specimen / Unknown 01/28/2025 12:11 PM EDT 01/28/2025 12:58 PM EDT us Kalpana Steele MD LAB BLOOD ORDERABLES Final Result Performing Organization Address City/[facility]/ZIP Co de Phone Number [facility] [address] [place] [address] [phone] * (ABNORMAL) Comprehensive Metabolic Panel (01/28/2025 12:11 PM EDT) Only the most recent of2 resultswithin the time period is included. Sodium 142 135 - 145 mmol/L [facility] Potassium 4.5 3.3 - 5.1 mmol/L [facility] Chloride 107 96 - 108 mmol/L [facility] Carbon Dioxide 26 22 - 29 mmol/L [facility] Anion Gap 14 12 - 20 [facility] Urea Nitrogen (BUN) 35(H) 9 - 16 mg/dL [facility] Creatinine, Serum 2.23(H) 0.5 - 1.4 mg/dL [facility] Estimated Glomerular Filt Rate 22 [facility] Comment:Chronic Kidney Disea se: Estimated GFR < 60 mL/min/1.77y1Ematkn Kidney Disease: Estimated GFR < 15 mL/min/1.73m2 Glucose 101 60 - 115 mg/dL [facility] Calcium 8.9 8.4 - 10.2 mg/dL [facility] Bilirubin, Total 0.4 0.0 - 1.0 mg/dL [facility] Aspartate Amino Transferase 55(H) 5 - 31 U/L [facility] Alanine Aminotransferase 65(H) 0 - 31 U/L [facility] Total Protein 7.3 6.5 - 8.0 g/dL [facility] Albumin Level 4.5 3.5 - 5.0 g/dL [facility] Alkaline Phosphatase 76 39 - 117 U/L [facility] 01/28/2025 12:1 1 PM EDT 01/28/2025 12:58 PM EDT us Generic External Data Provider LAB BLOOD ORDERAB LES Final Result Performing Organization Address City/[facility]/ZIP Co de Phone Number [facility] [address] [place] [address] [phone] * POCT Glucose (01/28/2025 11:42 AM [...] - 01/26/2025 2:23 PM EDT UTOX cup Lot#[id number] Exp. 02/08/26 Internal Pass Control Kalpana Steele MD POINT OF CARE TEST EN TER/EDIT ORDERABLES Final Result * BI Mammogram Screening Tomosynthesis Bilateral (09/01/2024 1:30 PM EDT) Anatomical Region Laterality Modality Breast Bilateral Mammography 09/01/2024 1:30 PM EDT Narrative 09/07/2024 8:43 AM EDT [facility] [address] [place] [address] Mammography Report Signed Patient: Santa Kate MR#: [id number] 76 : 1965 Acct:[id number] Age/Sex: 59 / F ADM Date: 09/01/24 Loc: HO.MAMMO Attending Dr: Kalpana Steele MD Ordering Physician: Kalpana Baptiste MD Results: 2Benign Findings Date of Service: 09/01/24 Follow Up: 1 Year From Orig inal Mammogram Procedure(s): MM tomosynthesis screening BI Accession Number(s): [id number] cc: Kalpana Baptiste MD EXAMINATION: MM SCREENING [...] 09/07/24 0841 DD/ 1330 TD/TT: 09/01/24 1345 Mold Filling Operator: Procedure Note Donotuseinterpreter, Image - 09/07/2024 [facility] [address] [place] [address] Dr. [place], [place] [address] Mammography Report Signed Patient: Damian Kate#: [id number] [birth year] : 1965Acct:[id number] Age/Sex: 59 / FADM Date: 09/01/24 Loc: HO.MAMMO Attending Dr: Kalpana Steele MD Ordering Physician: Kalpana Baptiste MDResults: 2Benign Findings Date of Service: 09/01/24Follow Up: 1 Year From Orig ina Mammogram Procedure(s): MM tomosynthesis screening BI Accession Number(s): [id number] cc: Kalpana Baptiste MD EXAMINATION: MM SCREENING [...] 09/07/24 0841 DD/ 1330 TD/TT: 09/01/24 1345 Mold Filling Operator: us Kalpana Steele MD IMG BI PROCEDURES Fin al Result * POCT HGB A1C (08/05/2024 1:00 PM EDT) Hemoglobin A1C 5.1 4.0 - 6.0 % QC Media Lot # [id number] Lot# Expiration Date Blood 08/05/2024 1:00 PM EDT Kalpana Steele MD POINT OF CARE TEST EN TER/EDIT ORDERABLES Final Result * Hepatitis A,B,C Profile (07/09/2024 9:57 AM EST) Hepatitis A IgM Nonreactive Nonreactive [facility] Comment:IgM antibodies to LUCIANO V not detected; does not exclude earlyacute or recovered HAV infection. ~Hepatitis B Surface Antibody NONREACTIVE Nonreactive [facility] Comment:Nonreactive: < 8.00 mIU/mL Hepatitis B Core Antibody Nonreactive Nonreactive [facility] Hepatitis C Antibody Nonreactive Nonreactive [facility] Comment:Antibodies to HCV no t detected; does not exclude early acuteHCV infection. Hepatitis B Surface Ag Negative Negative [facility] Blood Venous blood specimen / Unknown 07/09/2024 9:57 AM EST 07/09/2024 9:57 AM EST Kalpana Steele MD LAB BLOOD ORDERABLES Final Result [facility] [address] [place] [phone] * Hm Colonoscopy (07/06/2015) Colonoscopy Normal Normal Narrative Therese Brwon - 07/06/2015 Recommended 5 year follow up Historical Provider HEALTH MAINTENANCE Final Result from Last 3 Months or Most Recently Relevant to Health Maintenance Additional Health Concerns Active Problems Noted Date [...] neuropathy 04/14/2025 Patient has diabetic neuropathy 04/14/2025 Insurance [facility] MEDICAID STAND ADULT Care Teams Embedded Linux Developer Relationship Specialty Start Date End Date Kalpana Baptiste MD [address] [place] [phone] PCP - General Family Medicine 06/14/20
--- OUTSIDE RECORDS SUMMARY | 2025-04-18 02:45 | XMS_ITS | Encounter Summary ---
Author Organization [employer] Address 75 [facility] 7t [place] [address] Care Team Providers Care Edi Manager Name Role Phone Kalpana Baptiste MD Primary Care Provide r Betsy Wray RN Unavailable Unavailable Erika Saldivar Unavailable Reason for Visit * Reason Comments Med Refill Encounter Details Date Type Department Care Team ([facility] st Contact Info) Description 04/02/2024 Refill [facility] MEDICINE [address] [place], [place] [phone] Kalpana Baptiste MD [address] [place] [address] Primary osteoarthritis of both knees; Type 2 diabetes mellitus with other specified complication, unspecified whether joint terminal attack controller insulin use ([facility]) Social History Tobacco Use Types Packs/Day [...] Description 05/03/2025 1:00 PM EST Clinical Support [facility] MEDICINE [address] [place] [address] Amanda Waldrop RN 06/22/2025 12:45 PM EST Office Visit [facility] ADULT DENTAL [address] [place] [address] Pierre Coreyaris [address] [place] [address] 07/05/2025 1:00 PM EST Office Visit [facility] OPTOMETRY [address] [place] [address] Jonathon, Beata, OD 230 [place] [address] documented as of this encounter Visit Diagnoses Diagnosis Primary osteoarthritis of both knees Type 2 diabetes mellitus with other specified complication, unspecified whether senior care insulin use (HCC) documented in this encounter Additional Health Concerns Assessment Noted Time PHQ-9 Depression Total Score: 0 08/22/19 23 10:06 AM EDT documented as of this encounter Care Teams Edi Manager Relationship Specialty Start Date End Date Kalpana Baptiste MD [address] [place] [address] PCP - General Family Medicine 06/14/20 Betsy Wray, NEGAR [address] [facility] [place] [address] Registered Nurse Family Medicine 09/28/24 12/30/24 Erika Saldivar 09/28/24 01/10/25 documented as of this encounter
--- OUTSIDE RECORDS SUMMARY | 2025-04-18 02:45 | XMS_ITS | Encounter Summary ---
Author Organization [employer] Address 75 [facility] 7t [place] [address] Care Team Providers Care Radio Mechanic Helper Name Role Phone Kalpana Baptiste MD Primary Care Provide r Betsy Wray RN Unavailable Unavailable Erika Saldivar Unavailable Reason for Visit * Reason Comments Med Refill Encounter Details Date Type Department Care Team ([facility] st Contact Info) Description 07/06/2024 Refill [facility] MEDICINE [address] [place], [place] [phone] Kalpana Baptiste MD 230 [place], [place] [phone] Primary osteoarthritis of both knees Social History [...] [facility] MEDICINE [address] [place] [address] Amanda Waldrop, NEGAR 06/22/2025 12:45 PM EST Office Visit [facility] ADULT DENTAL [address] [place] [address] Leora, Gloria 230 [place] [address] 07/05/2025 1:00 PM EST Office Visit [facility] OPTOMETRY [address] [place] [address] Jonathon, Beata, OD [address] [place] [address] documented as of this encounter Visit Diagnoses Diagnosis Primary osteoarthritis of both knees documented in this encounter Additional Health Concerns Assessment Noted Time PHQ-9 Depression Total Score: 0 05/06/19 25 2:15 PM EST documented as of this encounter Care Teams Radio Mechanic Helper Relationship Specialty Start Date End Date Kalpana Baptiste MD [address] [place] [address] PCP - General Family Medicine 06/14/20 Betsy Wray RN [address] [place] [address] Registered Nurse Family Medicine 09/28/24 12/30/24 Erika Saldivar 09/28/24 01/10/25 documented as of this encounter
--- OUTSIDE RECORDS SUMMARY | 2025-04-18 02:45 | XMS_ITS | Encounter Summary ---
Author Organization [employer] Address 75 [facility] 7t [place] [address] Care Team Providers Care Postulant Name Role Phone Kalpana Baptiste MD Primary Care Provide r Betsy Wray RN Unavailable Unavailable Erika Saldivar Unavailable Reason for Visit * Reason Comments Med Refill Encounter Details Date Type Department Care Team ([facility] st Contact Info) Description 03/31/2024 Refill [facility] MEDICINE [address] [place], [place] [phone] Kalpana Baptiste MD [address] [place] [address] Type 2 diabetes mellitus with other specified complication, unspecified whether manager long term care insulin use ([facility]); Primary osteoarthritis of both knees Social [...] Clinical Support [facility] MEDICINE [address] [place] [address] Amanda Waldrop RN 06/22/2025 12:45 PM EST Office Visit [facility] ADULT DENTAL [address] [place] [address] Gloria Corey [address] [place] [address] 07/05/2025 1:00 PM EST Office Visit [facility] OPTOMETRY [address] [place] [address] Jonathon, Beata, OD 230 [place] [address] documented as of this encounter Visit Diagnoses Diagnosis Type 2 diabetes mellitus with other specified complication, unspecified whether manager long term care insulin use (HCC) Primary osteoarthritis of both knees documented in this encounter Additional Health Concerns Assessment Noted Time PHQ-9 Depression Total Score: 0 08/22/19 23 10:06 AM EDT documented as of this encounter Care Teams Postulant Relationship Specialty Start Date End Date Kalpana Baptiste MD [address] [place] [address] PCP - General Family Medicine 06/14/20 Betsy Wray, NEGAR 230 [place] [address] Registered Nurse Family Medicine 09/28/24 12/30/24 Erika Saldivar 09/28/24 01/10/25 documented as of this encounter
--- OUTSIDE RECORDS SUMMARY | 2025-04-18 02:45 | XMS_ITS | Encounter Summary ---
Author Organization [employer] Address 75 [facility] 7t [place] [address] Care Team Providers Care Cylinder Machine Operator Pulp Drier Name Role Phone Kalpana Baptiste MD Primary Care Provide r Betsy Wray RN Unavailable Unavailable Erika Saldivar Unavailable Reason for Visit * Reason Comments Med Refill Encounter Details Date Type Department Care Team ([facility] st Contact Info) Description 03/07/2023 Refill [facility] MEDICINE [address] [place], [place] [phone] Kalpana Baptiste MD [address] [place] [address] Primary osteoarthritis of both knees; Chronic tension-type [...] PM EST Clinical Support [facility] MEDICINE [address] [place] [address] Amanda Waldrop RN 06/22/2025 12:45 PM EST Office Visit [facility] ADULT DENTAL [address] [place] [address] Leora, Gloria [address] [place] [address] 07/05/2025 1:00 PM EST Office Visit [facility] OPTOMETRY [address] [place] [address] Jonathon, Beata, OD 230 [place] [address] documented as of this encounter Visit Diagnoses Diagnosis Primary osteoarthritis of both knees Chronic tension-type headache, not intractable Chronic tension type headache documented in this encounter Additional Health Concerns Assessment Noted Time PHQ-9 Depression Total Score: 0 08/22/19 23 10:06 AM EDT documented as of this encounter Care Teams Cylinder Machine Operator Pulp Drier Relationship Specialty Start Date End Date Kalpana Baptiste MD [address] [place] [id number] PCP - General Family Medicine 06/14/20 Betsy Wray RN [address] [place] [address]. [place] [address] Registered Nurse Family Medicine 09/28/24 12/30/24 Erika Saldivar 09/28/24 01/10/25 documented as of this encounter
--- OUTSIDE RECORDS SUMMARY | 2025-04-18 02:45 | XMS_ITS | Encounter Summary ---
Author Organization [employer] Address 75 [facility] 7t [place] [address] Care Team Providers Care Projection Camera Operator Name Role Phone Kalpana Baptiste MD Primary Care Provide r Betsy Wray RN Unavailable Unavailable Erika Saldivar Unavailable Reason for Visit * Reason Comments Med Refill Encounter Details Date Type Department Care Team ([facility] st Contact Info) Description 04/21/2023 Refill [facility] MEDICINE [address] [place], [place] [phone] Kalpana Baptiste MD 230 [place] [address] Primary osteoarthritis of both knees Social History [...] Description 05/03/2025 1:00 PM EST Clinical Support [facility] MEDICINE [address] [place] [address] Amanda Waldrop RN 06/22/2025 12:45 PM EST Office Visit [facility] ADULT DENTAL [address] [place] [address] Pierre Coreyaris [address] [place] [address] 07/05/2025 1:00 PM EST Office Visit [facility] OPTOMETRY [address] [place] [address] Jonathon, Beata, OD [address] [place] [address] documented as of this encounter Visit Diagnoses Diagnosis Primary osteoarthritis of both knees documented in this encounter Additional Health Concerns Assessment Noted Time PHQ-9 Depression Total Score: 0 08/22/19 23 10:06 AM EDT documented as of this encounter Care Teams Projection Camera Operator Relationship Specialty Start Date End Date Kalpana Baptiste MD [address] [place] [address] PCP - General Family Medicine 06/14/20 Betsy Wray RN [address] [place] [address] Registered Nurse Family Medicine 09/28/24 12/30/24 Erkia Saldivar 09/28/24 01/10/25 documented as of this encounter
--- OUTSIDE RECORDS SUMMARY | 2025-04-18 02:45 | XMS_ITS | Encounter Summary ---
Author Organization [employer] Address 75 [facility] 7t [place] [address] Care Team Providers Care Optical Element Coater Name Role Phone Kalpana Baptiste MD Primary Care Provide r Betsy Wray RN Unavailable Unavailable Erika Saldivar Unavailable Reason for Visit * Reason Comments Med Refill Encounter Details Date Type Department Care Team ([facility] st Contact Info) Description 01/28/2024 Refill [facility] MEDICINE [address] [place], [place] [phone] Caryl Biggs MD 230 [place] [address] Primary osteoarthritis of both knees Social History [...] [facility] [address] [place] [address] Amanda Waldrop RN 06/22/2025 12:45 PM EST Office Visit [facility] ADULT DENTAL [address] [place] [address] Pierre Coreyaris [address] [place] [address] 07/05/2025 1:00 PM EST Office Visit [facility] OPTOMETRY [address] [place] [address] Jonathon, Beata, OD [address] [place] [address] documented as of this encounter Visit Diagnoses Diagnosis Primary osteoarthritis of both knees documented in this encounter Additional Health Concerns Assessment Noted Time PHQ-9 Depression Total Score: 0 08/22/19 23 10:06 AM EDT documented as of this encounter Care Teams Optical Element Coater Relationship Specialty Start Date End Date Kalpana Baptiste MD [address] [place] [address] PCP - General Family Medicine 06/14/20 Betsy Wray RN [address] [place] [address] Registered Nurse Family Medicine 09/28/24 12/30/24 Erika Saldivar 09/28/24 01/10/25 documented as of this encounter
--- OUTSIDE RECORDS SUMMARY | 2025-04-18 02:45 | XMS_ITS | Encounter Summary ---
Author Organization [employer] Address 75 [facility] 7t [place] [address] Care Team Providers Care Auto Wash Buffer Name Role Phone Kalpana Baptiste MD Primary Care Provide r Betsy Wray RN Unavailable Unavailable Erika Saldivar Unavailable Reason for Visit * Reason Comments Med Refill Encounter Details Date Type Department Care Team ([facility] st Contact Info) Description 02/11/2024 Refill [facility] MEDICINE [address] [place], [place] [phone] Caryl Biggs MD [address] [place] [address] Primary osteoarthritis of both knees Social History [...] Clinical Support [facility] MEDICINE [address] [place] [address] Amanda Waldrop RN 06/22/2025 12:45 PM EST Office Visit [facility] ADULT DENTAL [address] [place] [address] Pierre Coreyaris [address] [place] [address] 07/05/2025 1:00 PM EST Office Visit [facility] OPTOMETRY [address] [place] [address] Jonathon, Beata, OD [address] [place] [address] documented as of this encounter Visit Diagnoses Diagnosis Primary osteoarthritis of both knees documented in this encounter Additional Health Concerns Assessment Noted Time PHQ-9 Depression Total Score: 0 08/22/19 23 10:06 AM EDT documented as of this encounter Care Teams Auto Wash Buffer Relationship Specialty Start Date End Date Kalpana Baptiste MD [address] [place] [address] PCP - General Family Medicine 06/14/20 eBtsy Wray RN [address] [place] [address] Registered Nurse Family Medicine 09/28/24 12/30/24 Erika Saldivar 09/28/24 01/10/25 documented as of this encounter
--- OUTSIDE RECORDS SUMMARY | 2025-04-18 02:45 | XMS_ITS | Encounter Summary ---
Author Organization [employer] Address 75 [facility] 7 [place] [address] Care Team Providers Care Molding Manager Name Role Phone Kalpana Baptiste MD Primary Care Provide r Betsy Wray RN Unavailable Unavailable Erika Saldivar Unavailable Encounter Details Date Type Department Care Team (Late st Contact Info) Description 10/13/[address] [facility] MEDICINE [address] [place] [address] Marielle Gerard, PharmD 230 [place] [address] Social History Tobacco Use Types Packs/Day Years [...] Author Not at all 10/15/2024 3:24 PM INGRIDT Tootie Wray RN * Trouble falling or [...] or on edge 0 10/15/2024 3:25 PM EDT Betsy Wray RN Not being able to stop or co ntrol worrying 0 10/15/2024 3:25 PM INGRIDT Betsy Wray RN Worrying too much about diff erent [...] 05/03/2025 1:00 PM EST Clinical Support [facility] MEDICINE [address] [place] [address] Amanda Waldrop RN 06/22/2025 12:45 PM EST Office Visit [facility] ADULT DENTAL [address] [place] [address] Leora Gloria [address] [place] [address] 07/05/2025 1:00 PM EST Office Visit [facility] OPTOMETRY [address] [place] [address] Jonathon, Beata, OD [address] [place] [address] documented as of this encounter Visit Diagnoses Not on filedocumented in this encounter Additional Health Concerns Assessment Noted Time PHQ-9 Depression Total Score: 0 05/06/19 25 2:15 PM EST documented as of this encounter Care Teams Molding Manager Relationship Specialty Start Date End Date Kalpana Baptiste MD [address] [place] [phone] PCP - General Family Medicine 06/14/20 Betsy Wray RN [address] [place] [address] Registered Nurse Family Medicine 09/28/24 12/30/24 Erika Saldivar 09/28/24 01/10/25 documented as of this encounter
--- OUTSIDE RECORDS SUMMARY | 2025-04-18 02:45 | XMS_ITS | Encounter Summary ---
Author Organization [employer] Address 75 [facility] 7t [place] [address] Care Team Providers Care Goat Herder Name Role Phone Kalpana Baptiste MD Primary Care Provide r Betsy Wray RN Unavailable Unavailable Erika Saldivar Unavailable Reason for Visit * Reason Comments Med Refill Encounter Details Date Type Department Care Team ([facility] st Contact Info) Description 03/29/2024 Refill [facility] MEDICINE [address] [place], [place] [phone] Kalpana Baptiste MD [address] [place] [address] Type 2 diabetes mellitus with other specified complication, unspecified whether ferry terminal supervisor insulin use ([facility]); Primary osteoarthritis of [...] Description 05/03/2025 1:00 PM EST Clinical Support [facility] MEDICINE [address] [place] [address] Amanda Waldrop RN 06/22/2025 12:45 PM EST Office Visit [facility] ADULT DENTAL [address] [place] [address] Gloria Corey [address] [place] [address] 07/05/2025 1:00 PM EST Office Visit [facility] OPTOMETRY [address] [place] [address] Jonathon, Beata, OD 230 [place] [address] documented as of this encounter Visit Diagnoses Diagnosis Type 2 diabetes mellitus with other specified complication, unspecified whether ferry terminal supervisor insulin use (HCC) Primary osteoarthritis of both knees documented in this encounter Additional Health Concerns Assessment Noted Time PHQ-9 Depression Total Score: 0 08/22/19 23 10:06 AM EDT documented as of this encounter Care Teams Goat Herder Relationship Specialty Start Date End Date Kalpana Baptiste MD [address] [place] [address] PCP - General Family Medicine 06/14/20 Betsy Wray, NEGAR 230 [facility] [place] [address] Registered Nurse Family Medicine 09/28/24 12/30/24 Erika Saldivar 09/28/24 01/10/25 documented as of this encounter
--- OUTSIDE RECORDS SUMMARY | 2025-04-18 02:45 | XMS_ITS | Encounter Summary ---
Author Organization [employer] Address 75 [facility] 7t [place] [address] Care Team Providers Care Appeals Analyst Name Role Phone Kalpana Baptiste MD Primary Care Provide r Reason for Visit * Reason Comments Med Refill Encounter Details Date Type Department Care Team ([facility] st Contact Info) Description 04/15/2025 Refill [facility] MEDICINE [address] [place], [place] [phone] Kalpana Baptiste MD [address] [place] [address] Chronic tension-type headache, not intractable; Primary osteoarthritis [...] Description 05/03/2025 1:00 PM EST Clinical Support [facility] MEDICINE [address] [place] [address] Amanda Waldrop RN 06/22/2025 12:45 PM EST Office Visit [facility] ADULT DENTAL [address] [place] [address] Gloria Corey [address] [place] [address] 07/05/2025 1:00 PM EST Office Visit [facility] OPTOMETRY [address] [place] [address] Beata Holt, OD 230 [place] [address] documented as of this encounter Goals Goal Patient Goal Type Associated Problems Recent Progress Patient-Stated? Author Help patients manage their type 2 diabetes Care Plan Help patients manage their type 2 diabetes No Mohr, Eliazar Weekly blood pressure task [...] Patient has diabetic neuropathy No Mohr, Eliazar Weekly blood pressure task [...] Patient has diabetic neuropathy No Mohr, Eliazar Weekly blood pressure task [...] Care Plan Weekly blood pressure task No Vidhya Bowernifer IMPORT COORDINATION AND PRODUCTION HEAD Patient has chronic kidney disease Care Plan Patient has chronic kidney disease No SathishVidhya crossnifer, IMPORT COORDINATION AND PRODUCTION HEAD Patient has chronic kidney disease Care Plan Patient has chronic kidney disease No Sathish, Neida, IMPORT COORDINATION AND PRODUCTION HEAD Patient has chronic kidney disease Care Plan Patient has chronic kidney disease No SathishVidhya crossnifer, IMPORT COORDINATION AND PRODUCTION HEAD Patient has diabetic neuropathy Care Plan Patient has diabetic neuropathy No SathishVidhya crossnifer, IMPORT COORDINATION AND PRODUCTION HEAD Patient has diabetic neuropathy Care Plan Patient has diabetic neuropathy No Sathish, Neida, IMPORT COORDINATION AND PRODUCTION HEAD Patient has diabetic neuropathy Care Plan Patient has diabetic neuropathy No Silvana Bowerfer IMPORT COORDINATION AND PRODUCTION HEAD Weekly blood pressure task Care Plan Weekly blood pressure task No Eliazar Mohr Weekly blood pressure task Care Plan Weekly blood pressure task No Eliazar Mohr Weekly blood pressure task Care Plan Weekly blood pressure task No Onur Eliazar Patient has chronic kidney disease Care Plan Patient has chronic kidney disease No Onur Eliazar Patient has chronic kidney disease Care Plan Patient has chronic kidney disease No Onur Eliazar Patient has chronic kidney [...] documented as of this encounter Care Teams Appeals Analyst Relationship Specialty Start Date End Date Kalpana Baptiste MD [address] [place] [address] PCP - General Family Medicine 06/14/20 documented as of this encounter
--- OUTSIDE RECORDS SUMMARY | 2025-04-18 02:45 | XMS_ITS | Clinical Summary ---
Author Organization [facility] Address [address] [facility] [address] [place] [address] Phone Care Team Providers Care Live In Caregiver Name Role Phone Kalpana Baptiste MD Primary [...] hours if needed for mild pain Active fluticasone HFA (FLOVENT HFA) 110 MCG/ACT inhaler Inhale 1 puff 2 (two) times a day Rinse mouth with water after use to reduce aftertaste and incidence of candidiasis. Do not swallow. Active folic acid (FOLVITE) 1 MG tablet Take 1 mg by mouth 1 (one) time each day Active Canagliflozin (Invokana) 100 MG tablet Take by mouth Active mirtazapine (REMERON) 15 MG tablet Take 15 mg by mouth every night Active traMADol (ULTRAM) 50 MG tablet Take 50 mg by mouth every 6 (six) hours if needed for moderate pain Active QUEtiapine (SEROquel) 50 MG tablet Take 50 mg by mouth every night Active FLUoxetine (PROzac) 10 MG tablet Take 10 mg by mouth 1 (one) time each day Active atorvastatin (LIPITOR) 20 MG tablet Take 20 mg by mouth 1 (one) time each day Active colchicine 0.6 MG tablet Take 0.6 mg by mouth 1 (one) time each day Active famotidine (PEPCID) 20 MG tablet Take 20 mg by mouth in the morning and 20 mg in the evening. Active hydroCHLOROthia zide 12.5 MG tablet Take 12.5 mg by mouth 1 (one) time each day Active loratadine (CLARITIN) 10 MG tablet Take 10 mg by mouth 1 (one) time each day Active losartan (COZAAR) 25 MG tablet Take 25 mg by mouth 1 (one) time each day Active Naloxone HCl 4 MG/0.1ML liquid Administer into affected nostril(s) Active pantoprazole (PROTONIX) 40 MG EC tablet Take 40 mg by mouth 1 (one) time each day before breakfast Do not crush, chew, or split. Active Active Problems Problem Noted Date Diagnosed Date alf current use of opiate analgesic 2024 Anxiety [...] for improvement of her quality of life Steatotic liver disease 05/14/2022 Renal stone 05/14/2022 Primary gonarthrosis, bilateral [...] Encounters Date Type Department Care Team Description 02/08/2025 1:30 PM EDT Office Visit [facility] P. [address] [facility] [address] [place] [phone] Neida Fernandes ARNP Stage 3b chronic kidney disease (HCC) (Primary Dx); Essential hypertension; Persistent proteinuria; Anemia in chronic kidney disease 01/18/2025 Orders Only [facility]. [address] [facility] [address] [place] [phone] Eben Us MD from Last 3 Months Immunizations Immunization [...] Reading Time Taken Comments Blood Pressure 126/80 02/08/2025 2:05 PM EDT Pulse 67 02/08/2025 1:52 PM EDT Temperature - - Respiratory Rate - - Oxygen Saturation 99% 12/28/2024 1:50 PM EDT Inhaled Oxygen Concentration - - Weight 103 kg (227 lb 12.8 oz) 02/08/2025 1:52 P M EDT Height 170.2 cm (5' 7 ) 08/27/2018 12:00 PM EDT Body Mass Index 35.68 08/27/2018 12:00 PM EDT Plan of Treatment Upcoming Encounters Date Type Department Care Team (Late st Contact Info) Description 08/09/2025 2:15 PM EDT Office Visit [facility] [address] [phone] Neida Fernandes ARNP [address] [phone] Health Maintenance Due Date Last Done Comments Breast Cancer Screening 1965 Colorectal Cancer Screening: Annual FOBT 2012 Colorectal Cancer Screening: Sigmoidoscopy 2012 Diabetes: Ophthalmology Exam 06/05/2020 Diabetes: Pedal Pulse Checked 06/05/2020 Diabetes: Sensory Foot Exam 06/05/2020 Diabetes: Visual Foot Exam 06/05/2020 Hepatitis B Vaccine (1 of 3 - Risk 3-dose series) 2023 11/15/2014, 08/10/2014, 12/01/2013, Additional history exists Diabetes: Hemoglobin A1C 11/04/202408/05/ 025, 02/25/2024, 08/21/2022, Additional history exists Colorectal Cancer Screening: Colonoscopy 10/26/2034 10/26/2024 Influenza Vaccine Completed 01/28/2025, , 02/12/2023, Additional history exists Pneumococcal Vaccine: 50+ Years Completed 01/28/2025, 03/24/2016, 03/24/2016, Additional history exists Pneumococcal Vaccine: Peds ( 0 to 5 Years) and At-Risk Patients (6 to 49 Years) Discontinued 01/28/2025, 03/24/2016, 03/24/2016, Additional history exists Procedures Procedure Name Priority Date/Time Associated Diagnosis Comments BASIC METABOLIC PANEL Routine 03/08/2025 10:25 AM EST Stage 3b chronic kidney disease (HCC) Essential hypertension PTH, INTACT Routine 01/18/2025 1:51 PM EDT [...] from Last 3 Months Results * (ABNORMAL) Basic metabolic panel (03/08/2025 10:25 AM EST) Glucose 99 70 - 99 mg/dL [facility] BUN 29(H) 8 - 27 mg/dL [facility] Creatinine 2.79(H) 0.57 - 1.00 mg/dL [facility] eGFR CKD-EPI CR 2020 19(L) >59 mL/min/1.7 3 [facility] BUN/Creatinine Ratio 10(L) 12 - 28 [facility] Sodium 142 134 - 144 mmol/L [facility] Potassium 4.1 3.5 - 5.2 mmol/L [facility] Chloride 102 96 - 106 mmol/L [facility] Bicarbonate (CO2) 23 20 - 29 mmol/L [facility] Calcium 9.1 8.7 - 10.3 mg/dL [facility] Blood Venous blood / Unknown 03/08/2025 10:25 AM EST 03/08/2025 Neida Fernandes [facility] LAB BLOOD ORDERABLES Final Result [facility] [address] [place] [address] * (ABNORMAL) Result (01/18/2025 1:51 PM EDT) Result Comment(A ) [facility] Comment: Beta hemolytic Streptococcus, group B 10,000-25,000 [...] MICROBIOLOGY - GENERAL OR DERABLES Final Result [facility] [address] [place] [address] * Microscopic Examination (01/18/2025 1:51 PM EDT) WBC, Urine None seen 0 - 5 /hpf [facility] RBC, Urine None seen 0 - 2 /hpf [facility] Squamous Epithelial, Urine 0-10 0 - 10 /hpf [facility] Casts None seen None seen /lpf [facility] Bacteria, Urine None seen None seen/Few [facility] 01/18/2025 1:51 PM EDT 01/18/2025 Eben Us MD LAB MICROBIOLOGY - GENERAL OR DERABLES Final Result [facility] [address] [place] [address] * (ABNORMAL) Protein, Total, Random Urine w/Creatinine (Protein/Creat Ratio) (01/18/2025 1:51 PM EDT) Creatinine, Ur 77.6 Not Estab. mg/dL [facility] Protein, Ur 30.0 Not Estab. mg/dL [facility] Urine Protein/Creati nine Ratio 387(H) 0 - 200 mg/g creat [facility] 01/18/2025 1:51 PM EDT 01/18/2025 Comment:UC Eben Us MD LAB URINE ORDERABLES Final Re sult Performing Organization Address City/[facility]/ZIP Co de Phone Number [facility] [address] [place] [address] * (ABNORMAL) Urine Albumin / Creatinine Ratio (01/18/2025 1:51 PM EDT) Albumin, Urine 162.4 Not Estab. ug/mL [facility] Albumin/Creatin ine Ratio 209(H) 0 - 29 mg/g creat [facility] Comment: Normal: 0 - 29 Moderately increased: 30 - 300 Severely increased: >300 01/18/2025 1:51 PM EDT 01/18/2025 Comment:UC Eben Us MD LAB URINE ORDERABLES Final Re sult Performing Organization Address [facility] Co de Phone Number [facility] 3[facility] [address] [place] [address] * (ABNORMAL) Vitamin D 25 Hydroxy (01/18/2025 1:51 PM EDT) Vitamin D, 25-OH, Total 25.2(L) 30.0 - 100.0 ng/mL [facility] Comment: Vitamin D deficiency has been defined by the [place] of Medicine and an Endocrine Society practice guideline as a level of serum 25-OH vitamin D less than 20 ng/mL (1,2). The Endocrine Society went on to further define vitamin D insufficiency as a level between 21 and 29 ng/mL (2). 1. IOM ([place] of Medicine). 2010. Dietary reference intakes for calcium and D. [place] [facility]: The National Academies Press. 2. Enoc MF, [place], Althea LUCIANO, et al. Evaluation, treatment, and prevention of vitamin D deficiency: an Endocrine Society clinical practice guideline. JCEM. 2010; 96(7):1911-30. 01/18/2025 1:51 PM EDT 01/18/2025 Comment:UC us Eben Us MD LAB BLOOD ORDERABLES Final Re sult [facility] [address] [place] [address] * (ABNORMAL) Urinalysis with microscopic (01/18/2025 1:51 PM EDT) Specific Kinde, Urine 1.015 1.005 - 1.030 [facility] pH Urine 5.5 5.0 - 7.5 [facility] [phone] Color, Urine Yellow Yellow [facility] Appearance Urine Clear Clear [facility] WBC Esterase Urine Negative Negative [facility] [phone] Protein, Ur 1+(A) Negative/Tra ce [facility] Glucose, Ur Negative Negative [facility] Ketones, Urine Negative Negative [facility] Blood Urine Trace(A) Negative [facility] [phone] Bilirubin Urine Negative Negative [facility] Urobilinogen Urine 0.2 0.2 - 1.0 mg/dL [facility] Nitrite, Urine Negative Negative [facility] Microscopic Examination See below: [facility] Comment:Microscopic was steve cated and was performed. 01/18/2025 1:51 PM EDT 01/18/2025 Eben Us MD LAB URINE ORDERABLES Final Re sult Performing Organization Address City/[facility]/ZIP Co de Phone Number [facility] [address] [place] [address] * (ABNORMAL) CBC (01/18/2025 1:51 PM EDT) WBC 3.8 3.4 - 10.8 x10E3/uL [facility] RBC 3.21(L) 3.77 - 5.28 x10E6/uL [facility] Hemoglobin 9.8(L) 11.1 - 15.9 g/dL [facility] Hematocrit 29.9(L) 34.0 - 46.6 % [facility] MCV 93 79 - 97 fL [facility] MCH 30.5 26.6 - 33.0 pg [facility] MCHC 32.8 31.5 - 35.7 g/dL [facility] RDW 13.9 11.7 - 15.4 % [facility] Platelets 215 150 - 450 x10E3/uL [facility] 01/18/2025 1:51 PM EDT 01/18/2025 Eben Us MD LAB BLOOD ORDERABLES Final Re sult [facility] [address] [place] [address] * (ABNORMAL) Urine Culture (01/18/2025 1:51 PM EDT) Culture Result, Urine Final report(A) [facility] 01/18/2025 1:51 PM EDT 01/18/2025 Comment: Eben Us MD LAB URINE ORDERABLES Final Re sult [facility] [address] [place] [address] * (ABNORMAL) PTH, Intact (01/18/2025 1:51 PM EDT) PTH 95(H) 15 - 65 pg/mL [facility] 01/18/2025 1:51 PM EDT 01/18/2025 Eben Us MD LAB BLOOD ORDERABLES Final Re sult Performing Organization Address [facility]/ZIP Co de Phone Number [facility] [address] [place] [address] * Magnesium (01/18/2025 1:51 PM EDT) Magnesium 2.0 1.6 - 2.3 mg/dL [facility] 01/18/2025 1:51 PM EDT 01/18/2025 Comment: Ebne Us MD LAB BLOOD ORDERABLES Final Re sult Performing Organization Address City/[facility]/ZIP Co de Phone Number [facility] [address] [place] [address] * (ABNORMAL) Renal Function Panel (01/18/2025 1:51 PM EDT) Glucose 95 70 - 99 mg/dL [facility] BUN 37(H) 8 - 27 mg/dL [facility] Creatinine 2.08(H) 0.57 - 1.00 mg/dL [facility] eGFR CKD-EPI CR 2020 27(L) >59 mL/min/1.7 3 [facility] BUN/Creatinine Ratio 18 12 - 28 [facility] Sodium 143 134 - 144 mmol/L [facility] Potassium 4.6 3.5 - 5.2 mmol/L [facility] Chloride 107(H) 96 - 106 mmol/L [facility] Bicarbonate (CO2) 19(L) 20 - 29 mmol/L [facility] Calcium 8.9 8.7 - 10.3 mg/dL [facility] Albumin 4.3 3.9 - 4.9 g/dL [facility] Phosphorus 3.5 3.0 - 4.3 mg/dL [facility] 01/18/2025 1:51 PM EDT 01/18/2025 Comment: us Eben Us MD LAB BLOOD ORDERABLES Final Re sult [facility] [address] [place] [address] from Last 3 Months [place] Care Teams Live In Caregiver Relationship Specialty Start Date End Date Kalpana Baptiste MD [address] [place] [phone] PCP - General Internal Medicine 07/03/21
--- OUTSIDE RECORDS SUMMARY | 2025-04-18 02:45 | XMS_ITS | Encounter Summary ---
Author Organization [employer] Address [address] [place] [address] Care Team Providers Care Business Process Coordinator Name Role Phone Kalpana Baptiste MD Primary Care Provide r Betsy Wray RN Unavailable Unavailable Erika Saldivar Unavailable Reason for Visit * Reason Comments Med Refill Encounter Details Date Type Department Care Team ([facility] st Contact Info) Description 04/16/2023 Refill [facility] MEDICINE [address] [place], [place] [phone] Kalpana Baptiste MD [address] [place] [address] Chronic tension-type headache, not intractable Social History [...] [facility] [address] [place] [address] Amanda Waldrop RN 06/22/2025 12:45 PM EST Office Visit [facility] ADULT DENTAL [address] [place] [address] Leora, Gloria [address] [place] [address] 07/05/2025 1:00 PM EST Office Visit [facility] OPTOMETRY [address] [place] [address] Jonathon, Beata, OD [address] [place] [address] documented as of this encounter Visit Diagnoses Diagnosis Chronic tension-type headache, not intractable Chronic tension type headache documented in this encounter Additional Health Concerns Assessment Noted Time PHQ-9 Depression Total Score: 0 08/22/19 23 10:06 AM EDT documented as of this encounter Care Teams Business Process Coordinator Relationship Specialty Start Date End Date Kalpana Baptiste MD [address] [place] [phone] PCP - General Family Medicine 06/14/20 Betsy Wray RN [address] [place] [phone] Registered Nurse Family Medicine 09/28/24 12/30/24 Erika Saldivar 09/28/24 01/10/25 documented as of this encounter
--- OUTSIDE RECORDS SUMMARY | 2025-04-18 02:45 | XMS_ITS | Encounter Summary ---
Author Organization [facility] [facility] Address [address] [facility] [address] [place] [address] Care Team Providers Care Route Delivery Manager Name Role Phone Kalpana Baptiste MD Primary Care Provide r Betsy Wray RN Unavailable Unavailable Erika Saldivar Unavailable Reason for Visit * Reason Comments Med Refill Encounter Details Date Type Department Care Team ([facility] st Contact Info) Description 04/08/2023 Refill [facility] MEDICINE [address] [place], [place] [phone] Kalpana Baptiste MD [address] [place] [address] Chronic tension-type headache, not intractable Social History [...] EST Clinical Support [facility] MEDICINE [address] [place] [address] Amanda Waldrop RN 06/22/2025 12:45 PM EST Office Visit [facility] ADULT DENTAL [address] [place] [address] Leora, Gloria [address] [place] [address] 07/05/2025 1:00 PM EST Office Visit [facility] OPTOMETRY [address] [place] [address] Jonathon, Beata, OD [address] [place] [address] documented as of this encounter Visit Diagnoses Diagnosis Chronic tension-type headache, not intractable Chronic tension type headache documented in this encounter Additional Health Concerns Assessment Noted Time PHQ-9 Depression Total Score: 0 08/22/19 23 10:06 AM EDT documented as of this encounter Care Teams Route Delivery Manager Relationship Specialty Start Date End Date Kalpana Baptiste MD [address] [place] [phone] PCP - General Family Medicine 06/14/20 Betsy Wray RN [address] [place] [phone] Registered Nurse Family Medicine 09/28/24 12/30/24 Erika Saldivar 09/28/24 01/10/25 documented as of this encounter
--- OUTSIDE RECORDS SUMMARY | 2025-04-18 02:45 | XMS_ITS | Clinical Summary ---
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 Heartburn 01/28/2023 Primary insomnia 01/28/2023 Abdominal bloating 12/16/2022 Alopecia 12/16/2022 Biliary dyskinesia 12/16/2022 Cholecystitis without calculus 12/16/2022 Contusion of right foot 12/16/2022 Dyslipidemia 12/16/2022 Dyspnea on exertion 12/16/2022 Fall 12/16/2022 Gastroesophageal reflux disease 12/16/2022 Heel spur 12/16/2022 Meningioma 12/16/2022 Urinary tract infection 12/16/2022 Pain of foot 12/16/2022 Neuropathy due to type 2 diabetes mellitus 12/16 Osteoarthritis of wrist 12/16/2022 Dental calculus 07/01/2022 Dental caries 07/01/2022 Periodontal disease 07/01/2022 Elevated blood pressure reading 06/21/2022 Overview (08/13/2024): Last Assessment & Plan: 154/86 before leaving Patient has BP kit at home, she is to monitory BP twice a day until F/up. I gave the patient a BP log. Acute kidney failure, unspecified 05/14/2022 Chronic gouty arthritis 05/14/2022 Overview (08/13/2024): [...] type 2 diabetes mellitus 01/05 Diabetic nephropathy associa nick with type 2 diabetes mellitus 02/01/2021 Proteinuria 02/01/2021 Vitamin D deficiency 03/20/2017 Moderate persistent asthma 06/01/2015 Type 2 diabetes mellitus 03/29/2015 Overview (08/13/2024): Last Assessment & Plan: Today A1c 6.7 Lab Results Component Value Date CREATININE 1.91 (H) 08/17/2022 - Diabetic eye exam: referral to eye care today - Diabetic foot exam: done today - Continue lifestyle modifications - Continue current medications Allergic rhinitis 03/02/2015 Anemia 03/02/2015 Depressive disorder 03/02/2015 Indigestion 03/02/2015 Chronic myeloproliferative disease 03/02/2015 Obstructive sleep apnea syndrome 03/02/2015 Overview (08/13/2024): Last Assessment & Plan: Referral to sleep medicine ordered Obesity 03/02/2015 Acute pharyngitis 12/29/2013 Cough 06/16/2013 Chronic uhxkq-eftszl-tfct disease 05/19/2013 Headache 03/24/2013 Dysuria 12/30/2012 Epigastric pain 10/29/2012 Status post bone marrow transplant 08/27/2012 Anxiety disorder 06/24/2012 Major depressive disorder, single episode 2012 Lower back pain 06/03/2012 Spleen enlargement 05/13/2012 Asthma 03/06/2012 Hyperlipidemia 03/06/2012 Hypertension 03/06/2012 Myelofibrosis 03/06/2012 Encounters Date Type Department Care Team Description 03/22/2025 9:45 AM EST Office Visit Orthopedic Surgery - [place] [address] 175 [facility] [address] [place] [address] Lee Delaney DPM Primary osteoarthritis of both feet (Primary Dx); Metatarsalgia of both feet; Diabetic mononeuropathy simplex ([facility] V24, [facility] V28); Dermatophytosis of nail; Pain in toe of left foot; Pain in toe of right foot 01/17/2025 10:45 AM EDT Office Visit Orthopedic Surgery [facility] [address] [facility] [address] [place] [address] Lee Delaney DPM Primary osteoarthritis of both feet (Primary Dx); Metatarsalgia of both feet; Diabetic mononeuropathy simplex ([facility] V24, [facility] V28); Dermatophytosis of nail from Last 3 Months Surgical History Surgery Date Site/Laterality Comments BONE MARROW TRANSPLANT TOTAL ABDOMINAL HYSTERECTOMY W/ BILATERAL SALPINGOOPHORECTOMY TOTAL KNEE ARTHROPLASTY Medical History Medical History Date Comments Hypertension Asthma Diabetes mellitus ([facility] V24, [facility] V28) GERD (gastroesophageal reflux disease) CKD (chronic kidney disease) Myelofibrosis ([facility] V24, [facility] V28) Gout BERNIE (obstructive sleep apnea) Diabetic neuropathy ([facility] V24, [facility] V28) Osteoarthritis Family History Medical History Relation [...] Safety Answer Date Record ed Physical Abuse Unrecognized value 10/04/2024 Verbal Abuse Unrecognized value 10/04/2024 Comments Unknown Sex and Gender Information [...] Care Team (Late st Contact Info) Description 06/22/2025 10:15 AM EST Office Visit Orthopedic Surgery [place] [address] [phone] Lee Delaney, DPM [address] [address] 08/19/2025 9:30 AM EDT Appointment [facility] Radiation Oncology [address] [place] [phone] Dafne Villalpando NP [address] [place] [address] Health Maintenance Due Date Last Done Comments Breast Cancer Screening 1965 Colorectal Cancer Screening: Colonoscopy 1963 Diabetes: Annual Foot Exam 1973 Diabetes: Annual Retina Eye Exam 1973 Cervical Cancer Screening: Pap Smear 1984 RSV Immunization Adult Patients (1 - Risk 50-74 years 1-dose series) 2013 Hepatitis A Vaccines (2 of 2 - Risk 2-dose series) 04/15/2019 10/14/2018 Hepatitis C Screening 04/14/2022 Osteoporosis Screening (Bone Density Screening) 04/14/2022 Depression Screening 05/05/2024 COVID-19 Vaccine ( season) 2025 02/25/2024, 05/08/2021, 07/05/2020, Additional history exists Diabetes: Blood Sugar Control Test (HGBA1C) 02/04/2025 08/05/2024, 02/25/2024, 08/11/2017 Diabetes: Annual Urine Albumin-Creatinine Ratio (uACR) 07/15/2025 07/15/2024 Social Influencers of Health Screening 10/07/2025 10/07/2024 Diabetes: Annual GFR (Glomerular Filtration Rate) 02/16/2026 02/16/2025, 01/28/2025, 10/09/2024, Additional history exists Hypertension/CHF/CAD Annual BMP Blood Test 02/16/2026 02/16/2025, 01/28/2025, 10/09/2024, Additional history exists DTaP,Tdap,and Td Vaccines (7 - Td or Tdap) 01/18/2029 01/18/2019, 08/10/2014, 12/01/2013, Additional history exists Cholesterol Screening (Lipid Panel) 01/28/2030 01/28/2025, 08/21/2023 MMR Vaccines Aged Out 12/24/2000, 02/06/2000 No [...] Vaccines Completed 08/21/2021, 06/13/2021 Influenza Vaccine Completed 01/28/2025, , 02/12/2023, Additional history exists Pneumococcal Vaccine: 50+ Years Completed 01/28/2025, 03/24/2016, 03/24/2016, Additional history exists HPV Vaccines Aged Out [...] BILAT Routine 01/17/2025 11:26 AM EDT Pain BASIC METABOLIC PANEL Routine 10/09/2024 5:34 AM [...] severe Thickening calcaneal spurring noted Nonweightbearing films us Lee Delaney DPM IMG XR PROCEDURES Final R esult * (ABNORMAL) Basic metabolic panel (10/09/2024 5:34 AM EDT) Sodium 140 133 - 145 mmol/L LAB CHEMISTRY METHOD 10/09/2024 7:26 AM [facility] Potassium 3.6 3.5 - 5.5 mmol/L LAB CHEMISTRY METHOD 10/09/2024 7:26 AM [facility] Chloride 112(H) 96 - 110 mmol/L LAB CHEMISTRY METHOD 10/09/2024 7:26 AM [facility] CO2 20(L) 21 - 32 mmol/L LAB CHEMISTRY METHOD 10/09/2024 7:26 AM [facility] Anion Gap 8 3 - 11 LAB CHEMISTRY METHOD 10/09/2024 7:26 AM [facility] Glucose 97 70 - 100 mg/dL LAB CHEMISTRY METHOD 10/09/2024 7:26 AM EDT [facility] BUN 13 5 - 25 mg/dL LAB CHEMISTRY METHOD 10/09/2024 7:26 AM T [facility] Creatinine 1.56(H) 0.50 - 1.10 mg/dL LAB CHEMISTRY METHOD 10/09/2024 7:26 AM [facility] eGFR 38(L) >=60 mL/min/1. 73m2 LAB CHEMISTRY METHOD 10/09/2024 7:26 AM EDT [facility] Comment:Calculation based on the Chronic Kidney Disease Epidemiology Collaboration (CKD-EPI) equation refit without adjustment for race. BUN/Creatinine Ratio 8.3 LAB CHEMISTRY METHOD 10/09/2024 7:26 AM [facility] Calcium 8.0(L) 8.5 - 10.5 mg/dL LAB CHEMISTRY METHOD 10/09/2024 7:26 AM T [facility] Blood Venous blood specimen / Unknown Venipuncture / Unknown 10/09/2024 5:34 AM EDT 10/09/2024 6:25 AM EDT Ferny Guzman MD LAB BLOOD ORDERABLES Final Re sult [facility] [address] [place] [address], from Last 3 Months or Most Recently Relevant to Health Maintenance Additional Health Concerns Infection Onset Date Last Indicated Rotavirus 10/04/2024 10/04/2024 Insurance MEDICAID - [place] Advance Directives Documents on File Type Date Recorded Patient Information Engineer Jed anderson Advance Directives and Living Will 05/21/2024 8:51 AM Advance Directives and Living Will 05/19/2024 11:42 AM [facility] * Full Code - [...] Agents on File Name Relationship Healthcare Agent [facility] Veronique Dominique [facility] Health Care Agent Salome Kate [facility] Health Care Agent Care Teams Night Custodian Relationship Specialty Start Date End Date Kalpana Baptiste MD [address] [place] [phone] PCP - General Internal Medicine 05/18/24
--- OUTSIDE RECORDS SUMMARY | 2025-04-18 02:45 | XMS_ITS | Encounter Summary ---
Author Organization [employer] Address 75 [facility] 7t [place] [address] Care Team Providers Care Director Of Cardiac Rehabilitation Name Role Phone Kalpana Baptiste MD Primary Care Provide r Betsy Wray RN Unavailable Unavailable Erika Saldivar Unavailable Reason for Visit * Reason Comments Med Refill Encounter Details Date Type Department Care Team ([facility] st Contact Info) Description 10/19/2024 Refill [facility] MEDICINE [address] [place], [place] [phone] Kalpana Baptiste MD 230 [place], [place] [phone] Primary osteoarthritis of both knees Social History [...] the past 12 months, has t he [employer], gas, oil or water company threatened to [...] [facility] 230 [place] [address] Amanda Waldrop RN 06/22/2025 12:45 PM EST Office Visit [facility] ADULT DENTAL [address] [place] [address] Gloria Corey [address] [place] [address] 07/05/2025 1:00 PM EST Office Visit [facility] OPTOMETRY [address] [place], [place] [phone] JonathonBeata, OD [address] [place], [place] [phone] documented as of this encounter Visit Diagnoses Diagnosis Primary osteoarthritis of both knees documented in this encounter Additional Health Concerns Assessment Noted Time PHQ-9 Depression Total Score: 0 10/16/19 25 3:24 PM EDT documented as of this encounter Care Teams Director Of Cardiac Rehabilitation Relationship Specialty Start Date End Date Kalpana Baptiste MD [address] [place], [place] [phone] PCP - General Family Medicine 06/14/20 Betsy Wray RN [address] [place] [address] Registered Nurse Family Medicine 09/28/24 12/30/24 Erika Saldivar 09/28/24 01/10/25 documented as of this encounter
--- OUTSIDE RECORDS SUMMARY | 2025-04-18 02:45 | XMS_ITS | Encounter Summary ---
Author Organization [employer] Address 75 [facility] 7t [place] [address] Care Team Providers Care Lumber Puller Name Role Phone Kalpana Baptiste MD Primary Care Provide r Betsy Wray RN Unavailable Unavailable Erika Saldivar Unavailable Reason for Visit * Reason Comments Med Refill Encounter Details Date Type Department Care Team ([facility] st Contact Info) Description 05/13/2024 Refill [facility] MEDICINE [address] [place], [place] [phone] Kalpana Baptiste MD [address] [place] [address] Heartburn Social History Tobacco Use Types Packs/Day [...] Description 05/03/2025 1:00 PM EST Clinical Support [facility] MEDICINE [address] [place] [address] Amanda Walrdop, NEGAR 06/22/2025 12:45 PM EST Office Visit [facility] ADULT DENTAL [address] [place] [address] Leora, Gloria [address] [place] [address] 07/05/2025 1:00 PM EST Office Visit [facility] OPTOMETRY [address] [place] [address] Jonathon, Beata, OD 230 [place] [address] documented as of this encounter Visit Diagnoses Diagnosis Heartburn documented in this encounter Additional Health Concerns Assessment Noted Time PHQ-9 Depression Total Score: 0 05/06/19 25 2:15 PM EST documented as of this encounter Care Teams Lumber Puller Relationship Specialty Start Date End Date Kalpana Baptiste MD [address] [place] [address] PCP - General Family Medicine 06/14/20 Betsy Wray RN [address] [place] [address] Registered Nurse Family Medicine 09/28/24 12/30/24 Erika Saldivar 09/28/24 01/10/25 documented as of this encounter
--- OUTSIDE RECORDS SUMMARY | 2025-04-18 02:45 | XMS_ITS | Encounter Summary ---
Author Organization [employer] Address 75 [facility] 7t [place] [address] Care Team Providers Care Product Architect Name Role Phone Kalpana Baptiste MD Primary Care Provide r Betsy Wray RN Unavailable Unavailable Erika Saldivar Unavailable Reason for Visit * Reason Comments Med Refill Encounter Details Date Type Department Care Team ([facility] st Contact Info) Description 10/27/2024 Refill [facility] MEDICINE 230 [place], [place] [phone] Kalpana Baptiste MD [address] [place] [address] Indigestion; Primary osteoarthritis of both knees Social [...] the past 12 months, has t he [employer], gas, oil or water company threatened to [...] Description 05/03/2025 1:00 PM EST Clinical Support [facility] MEDICINE [address] [place] [address] Amanda Waldrop RN 06/22/2025 12:45 PM EST Office Visit [facility] ADULT DENTAL [address] [place] [address] Gloria Corey 230 [place] [address] 07/05/2025 1:00 PM EST Office Visit [facility] OPTOMETRY [address] [place] [address] Beata Holt, OD 230 [place] [address] documented as of this encounter Visit Diagnoses Diagnosis Indigestion Dyspepsia and other specified disorders of function of stomach Primary osteoarthritis of both knees documented in this encounter Additional Health Concerns Assessment Noted Time PHQ-9 Depression Total Score: 0 10/16/19 25 3:24 PM EDT documented as of this encounter Care Teams Product Architect Relationship Specialty Start Date End Date Kalpana Baptiste MD [address] [place] [address] PCP - General Family Medicine 06/14/20 Betsy Wray RN [address] [place] [address] Registered Nurse Family Medicine 09/28/24 12/30/24 Erika Saldivar 09/28/24 01/10/25 documented as of this encounter
--- OUTSIDE RECORDS SUMMARY | 2025-04-18 02:45 | XMS_ITS | Encounter Summary ---
Author Organization [employer] Address 75 [facility] 7t [place] [address] Care Team Providers Care Hand Cutter Name Role Phone Kalpana Baptiste MD Primary Care Provide r Betsy Wray RN Unavailable Unavailable Erika Saldivar Unavailable Reason for Visit * Reason Comments Med Refill Encounter Details Date Type Department Care Team ([facility] st Contact Info) Description 03/11/2023 Refill [facility] MEDICINE [address] [place] [address] Kalpana Baptiste MD 230 [place] [address] Chronic tension-type headache, not intractable; Primary osteoarthritis [...] Support [facility] MEDICINE [address] [place] [address] Amanda Waldrop RN 06/22/2025 12:45 PM EST Office Visit [facility] ADULT DENTAL [address] [place] [address] Leora, Gloria [address] [place] [address] 07/05/2025 1:00 PM EST Office Visit [facility] OPTOMETRY [address] [place] [address] Jonathon, Beata, OD 230 [place] [address] documented as of this encounter Visit Diagnoses Diagnosis Chronic tension-type headache, not intractable Chronic tension type headache Primary osteoarthritis of both knees documented in this encounter Additional Health Concerns Assessment Noted Time PHQ-9 Depression Total Score: 0 08/22/19 23 10:06 AM EDT documented as of this encounter Care Teams Hand Cutter Relationship Specialty Start Date End Date Kalpana Baptiste MD [address] [place] [address] PCP - General Family Medicine 06/14/20 Betsy Wray RN [address] [place] [address]. [place] [address] Registered Nurse Family Medicine 09/28/24 12/30/24 Erika Saldivar 09/28/24 01/10/25 documented as of this encounter
--- OUTSIDE RECORDS SUMMARY | 2025-04-18 02:45 | XMS_ITS | Encounter Summary ---
Author Organization [employer] Address 75 [facility] 7t [place] [address] Care Team Providers Care Online Merchandising Specialist Name Role Phone Kalpana Baptiste MD Primary Care Provide r Betsy Wray RN Unavailable Unavailable Erika Saldivar Unavailable Reason for Visit * Reason Comments Med Refill Encounter Details Date Type Department Care Team ([facility] st Contact Info) Description 09/21/2024 Refill [facility] MEDICINE 230 [place], [place] [phone] Kalpana Baptiste MD 230 [place], [place] [phone] Type 2 diabetes mellitus with other specified complication, unspecified whether buttermaker helper insulin use ([facility]) Social History Tobacco Use Types Packs/Day Years [...] 05/03/2025 1:00 PM EST Clinical Support [facility] MEDICINE [address] [place] [address] Amanda Waldrop RN 06/22/2025 12:45 PM EST Office Visit [facility] ADULT DENTAL [address] [place] [address] Leora, Gloria [address] [place] [address] 07/05/2025 1:00 PM EST Office Visit [facility] OPTOMETRY [address] [place] [address] Jonathon, Beata, OD 230 [place] [address] documented as of this encounter Visit Diagnoses Diagnosis Type 2 diabetes mellitus with other specified complication, unspecified whether senior living insulin use (HCC) documented in this encounter Additional Health Concerns Assessment Noted Time PHQ-9 Depression Total Score: 0 05/06/19 25 2:15 PM EST documented as of this encounter Care Teams Online Merchandising Specialist Relationship Specialty Start Date End Date Kalpana Baptiste MD 230 [place], [place] [phone] PCP - General Family Medicine 06/14/20 Betsy Wray RN 230 [place] [address] Registered Nurse Family Medicine 09/28/24 12/30/24 Erika Saldivar 09/28/24 01/10/25 documented as of this encounter
--- OUTSIDE RECORDS SUMMARY | 2025-04-18 02:45 | XMS_ITS | Encounter Summary ---
Author Organization [employer] Address 75 [facility] 7t [place] [address] Care Team Providers Care Maternity Nurse Name Role Phone Kalpana Baptiste MD Primary Care Provide r Betsy Wray RN Unavailable Unavailable Erika Saldivar Unavailable Reason for Visit * Reason Comments Med Refill Encounter Details Date Type Department Care Team ([facility] st Contact Info) Description 10/01/2024 Refill [facility] MEDICINE 230 [place], [place] [phone] Kalpana Baptiste MD 230 [place], [place] [phone] Primary osteoarthritis of both knees Social History [...] PM EST Clinical Support [facility] MEDICINE [address] [place] [address] Amanda Waldrop, NEGAR 06/22/2025 12:45 PM EST Office Visit [facility] ADULT DENTAL 230 [place] [address] Leora, Gloria 230 [place] [address] 07/05/2025 1:00 PM EST Office Visit [facility] OPTOMETRY [address] [place] [address] Jonathon, Beata, OD 230 [place] [address] documented as of this encounter Visit Diagnoses Diagnosis Primary osteoarthritis of both knees documented in this encounter Additional Health Concerns Assessment Noted Time PHQ-9 Depression Total Score: 0 05/06/19 25 2:15 PM EST documented as of this encounter Care Teams Maternity Nurse Relationship Specialty Start Date End Date Kalpana Baptiste MD 230 [place] [address] PCP - General Family Medicine 06/14/20 Betsy Wray RN [address] [place] [address] Registered Nurse Family Medicine 09/28/24 12/30/24 Erika Saldivar 09/28/24 01/10/25 documented as of this encounter
--- OUTSIDE RECORDS SUMMARY | 2025-04-18 02:45 | XMS_ITS | Encounter Summary ---
Author Organization [employer] Address 75 [facility] 7t [place] [address] Care Team Providers Care Handbag Operator Name Role Phone Kalpana Baptiste MD Primary Care Provide r Betsy Wray RN Unavailable Unavailable Erika Saldivar Unavailable Reason for Visit * Reason Comments Med Refill Encounter Details Date Type Department Care Team ([facility] st Contact Info) Description 04/21/2023 Refill [facility] MEDICINE [address] [place], [place] [phone] Kalpana Baptiste MD [address] [place] [address] Chronic tension-type headache, not intractable Social History [...] Description 05/03/2025 1:00 PM EST Clinical Support [facility] MEDICINE [address] [place] [address] Amanda Waldrop RN 06/22/2025 12:45 PM EST Office Visit [facility] ADULT DENTAL [address] [place] [address] Leora, Gloria [address] [place] [address] 07/05/2025 1:00 PM EST Office Visit [facility] OPTOMETRY [address] [place] [address] Jonathon, Beata, OD 230 [place] [address] documented as of this encounter Visit Diagnoses Diagnosis Chronic tension-type headache, not intractable Chronic tension type headache documented in this encounter Additional Health Concerns Assessment Noted Time PHQ-9 Depression Total Score: 0 08/22/19 23 10:06 AM EDT documented as of this encounter Care Teams Handbag Operator Relationship Specialty Start Date End Date Kalpana Baptiste MD [address] [place] [address] PCP - General Family Medicine 06/14/20 Betsy Wray RN [address] [place] [address] Registered Nurse Family Medicine 09/28/24 12/30/24 Erika Saldivar 09/28/24 01/10/25 documented as of this encounter
--- OUTSIDE RECORDS SUMMARY | 2025-04-18 02:45 | XMS_ITS | Encounter Summary ---
Author Organization [employer] Address 75 [facility] 7t [place] [address] Care Team Providers Care Product Development Engineer Name Role Phone Kalpana Baptiste MD Primary Care Provide r Betsy Wray RN Unavailable Unavailable Erika Saldivar Unavailable Reason for Visit * Reason Comments Med Refill Encounter Details Date Type Department Care Team ([facility] st Contact Info) Description 03/23/2024 Refill [facility] MEDICINE [address] [place], [place] [phone] Kalpana Baptiste MD 230 [place] [address] Primary osteoarthritis of both knees; Type 2 diabetes mellitus with other specified complication, unspecified whether terminal press operator insulin use ([facility]) Social History Tobacco Use [...] 05/03/2025 1:00 PM EST Clinical Support [facility] MEDICINE [address] [place] [address] Amanda Waldrop RN 06/22/2025 12:45 PM EST Office Visit [facility] ADULT DENTAL [address] [place] [address] Pierre Coreyaris 230 [place] [address] 07/05/2025 1:00 PM EST Office Visit [facility] OPTOMETRY [address] [place] [address] Jonathon, Beata, OD 230 [place] [address] documented as of this encounter Visit Diagnoses Diagnosis Primary osteoarthritis of both knees Type 2 diabetes mellitus with other specified complication, unspecified whether fdc insulin use (HCC) documented in this encounter Additional Health Concerns Assessment Noted Time PHQ-9 Depression Total Score: 0 08/22/19 23 10:06 AM EDT documented as of this encounter Care Teams Product Development Engineer Relationship Specialty Start Date End Date Kalpana Baptiste MD 230 [place] [address] PCP - General Family Medicine 06/14/20 Betsy Wray, NEGAR 230 [facility] [address] Registered Nurse Family Medicine 09/28/24 12/30/24 Erika Saldivar 09/28/24 01/10/25 documented as of this encounter
--- OUTSIDE RECORDS SUMMARY | 2025-04-18 02:46 | XMS_ITS | Encounter Summary ---
Author Organization [employer] Address [address] [facility] 7t [place] [address] Care Team Providers Care Licensed Nursing Assistant Name Role Phone Kalpana Baptiste MD Primary Care Provide r Betsy Wray RN Unavailable Unavailable Erika Saldivar Unavailable Reason for Visit * Reason Comments Med Refill Encounter Details Date Type Department Care Team ([facility] Contact Info) Description 06/10/2022 Refill [facility] CHC MED & PEDS [address] [place], [place] [phone] Neida Garrett DO 230 [place] [address] Social History Tobacco Use Types Packs/Day Years [...] Team ([facility] Contact Info) Description 05/03/2025 1:00 PM EST Clinical Support [facility] MEDICINE [address] [place], [place] [phone] Amanda Waldrop RN 06/22/2025 12:45 PM EST Office Visit [facility] ADULT DENTAL [address] [place] [address] Pierre Coreyaris [address] [place] [address] 07/05/2025 1:00 PM EST Office Visit [facility] OPTOMETRY [address] [place] [address] Beata Holt, OD 230 [place] [address] documented as of this encounter Visit Diagnoses Not on filedocumented in this encounter Care Teams Licensed Nursing Assistant Relationship Specialty Start Date End Date Kalpana Baptiste MD [address] [place] [address] PCP - General Family Medicine 06/14/20 Betsy Wray RN [address] [place] [phone] Registered Nurse Family Medicine 09/28/24 12/30/24 Erika Saldivar 09/28/24 01/10/25 documented as of this encounter
--- OUTSIDE RECORDS SUMMARY | 2025-04-18 02:46 | XMS_ITS | Encounter Summary ---
Author Organization [employer] Address [address] [facility] 7t [place] [address] Care Team Providers Care Research And Development Specialist Name Role Phone Kalpana Baptiste MD Primary Care Provide r Betsy Wray RN Unavailable Unavailable Erika Saldivar Unavailable Reason for Visit * Reason Comments Med Refill Encounter Details Date Type Department Care Team ([facility] st Contact Info) Description 05/14/2023 Refill [facility] MEDICINE [address] [place], [place] [phone] Kalpana Baptiste MD 230 [place] [address] Primary osteoarthritis of both knees; Heartburn Social [...] [facility] [address] [place] [address] Amanda Waldrop RN 06/22/2025 12:45 PM EST Office Visit [facility] ADULT DENTAL [address] [place] [address] Leora, Gloria [address] [place] [address] 07/05/2025 1:00 PM EST Office Visit [facility] OPTOMETRY [address] [place] [address] Jonathon, Beata, OD 230 [place] [address] documented as of this encounter Visit Diagnoses Diagnosis Primary osteoarthritis of both knees Heartburn documented in this encounter Additional Health Concerns Assessment Noted Time PHQ-9 Depression Total Score: 0 08/22/19 23 10:06 AM EDT documented as of this encounter Care Teams Research And Development Specialist Relationship Specialty Start Date End Date Kalpana Baptiste MD [address] [place] [phone] PCP - General Family Medicine 06/14/20 Betsy Wray RN [address] [place] [address] Registered Nurse Family Medicine 09/28/24 12/30/24 Erika aSldivar 09/28/24 01/10/25 documented as of this encounter
--- OUTSIDE RECORDS SUMMARY | 2025-04-18 02:46 | XMS_ITS | Encounter Summary ---
Author Organization [employer] Address [address] [facility] 7t [place] [address] Care Team Providers Care Construction Teacher Name Role Phone Kalpana Baptiste MD Primary Care Provide r Betsy Wray RN Unavailable Unavailable Erika Saldivar Unavailable Reason for Visit * Reason Comments Med Refill Encounter Details Date Type Department Care Team ([facility] st Contact Info) Description 05/14/2023 Refill [facility] MEDICINE [address], [place] [phone] Marilyn Corral MD 230 [place] [address] Type 2 diabetes mellitus with other specified complication, unspecified whether correction insulin use ([facility]) Social History Tobacco Use Types Packs/Day Years [...] 1:00 PM EST Clinical Support [facility] MEDICINE [address] [place] [address] Amanda Waldrop RN 06/22/2025 12:45 PM EST Office Visit [facility] ADULT DENTAL [address] [place] [address] Leora, Gloria [address] [place] [address] 07/05/2025 1:00 PM EST Office Visit [facility] OPTOMETRY [address] [place] [address] Jonathon, Beata, OD 230 [place] [address] documented as of this encounter Visit Diagnoses Diagnosis Type 2 diabetes mellitus with other specified complication, unspecified whether emt intermediate insulin use (HCC) documented in this encounter Additional Health Concerns Assessment Noted Time PHQ-9 Depression Total Score: 0 08/22/19 23 10:06 AM EDT documented as of this encounter Care Teams Construction Teacher Relationship Specialty Start Date End Date Kalpana Baptiste MD [address] [place] [phone] PCP - General Family Medicine 06/14/20 Betsy Wray RN [address] [place] [address] Registered Nurse Family Medicine 09/28/24 12/30/24 Erika Saldivar 09/28/24 01/10/25 documented as of this encounter
--- OUTSIDE RECORDS SUMMARY | 2025-04-18 02:46 | XMS_ITS | Encounter Summary ---
Author Organization [employer] Address [address] [facility] 7t [place] [address] Care Team Providers Care Drupal Developer Name Role Phone Kalpana Baptiste MD Primary Care Provide r Betsy Wray RN Unavailable Unavailable Erika Saldivar Unavailable Reason for Visit * Reason Comments Med Refill Encounter Details Date Type Department Care Team ([facility] st Contact Info) Description 05/15/2023 Refill [facility] MED[facility] [address] [place], [place] [phone] Marilyn Corral MD 230 [place] [address] Type 2 diabetes mellitus with other specified complication, unspecified whether fpc insulin use ([facility]) Social History Tobacco Use Types [...] [facility] MED[facility]INE [address] [place] [address] Amanda Waldrop RN 06/22/2025 12:45 PM EST Office Visit [facility] ADULT DENTAL [address] [place] [address] Leora, Gloria [address] [place] [address] 07/05/2025 1:00 PM EST Office Visit [facility] OPTOMETRY [address] [place] [address] Jonathon, Beata, OD 230 [place] [address] documented as of this encounter Visit Diagnoses Diagnosis Type 2 diabetes mellitus with other specified complication, unspecified whether intermediate manager insulin use (HCC) documented in this encounter Additional Health Concerns Assessment Noted Time PHQ-9 Depression Total Score: 0 08/22/19 23 10:06 AM EDT documented as of this encounter Care Teams Drupal Developer Relationship Specialty Start Date End Date Kalpana Baptiste MD [address] [place] [phone] PCP - General Family Medicine 06/14/20 Betsy Wray RN [address] [place] [address] Registered Nurse Family Medicine 09/28/24 12/30/24 Erika Saldivar 09/28/24 01/10/25 documented as of this encounter
--- OUTSIDE RECORDS SUMMARY | 2025-04-18 02:46 | XMS_ITS | Encounter Summary ---
Author Organization [employer] Address [address] [facility] 7t [place] [address] Care Team Providers Care Tetryl Blender Operator Name Role Phone Kalpana Baptiste MD Primary Care Provide r Betsy Wray RN Unavailable Unavailable Erika Saldivar Unavailable Encounter Details Date Type Department Care Team ([facility] Contact Info) Description 05/17/2022 Orders Only [facility] MEDICINE [address] [place] [address] [phone] Marilyn Corral MD [address] [place] [address] [phone] Acute idiopathic gout involving toe of right [...] Upcoming Encounters Date Type Department Care Team ([facility] Contact Info) Description 05/03/2025 1:00 PM EST Clinical Support [facility] MEDICINE [address] [place] [address] [phone] Amanda Waldrop, NEGAR 06/22/2025 12:45 PM EST Office Visit [facility] ADULT DENTAL [address] [place], [place] [phone] Leora Gloria 230 [place], [place] [phone] 07/05/2025 1:00 PM EST Office Visit [facility] OPTOMETRY [address] [place], [place] [phone] Beata Holt, OD [address] [place], [place] [phone] documented as of this encounter Visit Diagnoses Diagnosis 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
--- OUTSIDE RECORDS SUMMARY | 2025-04-18 02:46 | XMS_ITS | Encounter Summary ---
Author Organization [employer] Address [address] [facility] 7t [place] [address] Care Team Providers Care Recruiting Intern Name Role Phone Kalpana Baptiste MD Primary Care Provide r Betsy Wray RN Unavailable Unavailable Erika Saldivar Unavailable Reason for Visit * Reason Comments Med Refill Encounter Details Date Type Department Care Team ([facility] Contact Info) Description 06/11/2022 Refill [facility] CHC MED & PEDS [address] [place], [place] [phone] Neida Garrett DO 230 [place] [address] Social History Tobacco Use Types Packs/Day Years [...] Upcoming Encounters Date Type Department Care Team ([facility] Contact Info) Description 05/03/2025 1:00 PM EST Clinical Support [facility] MEDICINE 230 [place], [place] [phone] Amanda Waldrop RN 06/22/2025 12:45 PM EST Office Visit [facility] ADULT DENTAL [address] [place] [address] Pierre Coreyaris [address] [place] [address] 07/05/2025 1:00 PM EST Office Visit [facility] OPTOMETRY [address] [place] [address] Beata Hotl, OD 230 [place] [address] documented as of this encounter Visit Diagnoses Not on filedocumented in this encounter Care Teams Recruiting Intern Relationship Specialty Start Date End Date Kalpana Baptiste MD [address] [place] [address] PCP - General Family Medicine 06/14/20 Betsy Wray RN [address] [place] [phone] Registered Nurse Family Medicine 09/28/24 12/30/24 Erika Saldivar 09/28/24 01/10/25 documented as of this encounter
--- OUTSIDE RECORDS SUMMARY | 2025-04-18 02:46 | XMS_ITS | Encounter Summary ---
Author Organization [facility] Address [address] [place] [address] Care Team Providers Care Land Management Supervisor Name Role Phone Kalpana Baptiste MD Primary Care Provider Reason for Visit * Reason Onset Date Comments BMT appt 05/31/2020 Encounter Details Date Type Department Care Team (Late Contact Info) Description 05/31/2020 Telephone [facility] Central Scheduling Department [address] [place] [address] Telephone Intake, Staff BMT appt Social History [...] PM EST Pt of [facility]. Bernal at [facility] Calling to schedule a follow up appt CS unable to book as requested. BM Line not available Please call for appt at [phone] documented in this encounter Plan of Treatment Upcoming Encounters Date Type Department Care Team ([facility] Contact Info) Description 08/10/2025 2:00 PM EDT Lab [facility] Draw Site Fifth Floor [address] [place] [address] 08/10/2025 3:00 PM EDT Follow-Up [facility] Clinic [address] [place] [address] Vivek Bernal MD PhD [address] [place] [address] documented as of this encounter Visit Diagnoses Not on filedocumented in this encounter Care Teams Land Management Supervisor Relationship Specialty Start Date End Date Kalpana Baptiste MD [address] [place] [address] PCP - General 11/22/20 documented as of this encounter
--- OUTSIDE RECORDS SUMMARY | 2025-04-18 02:46 | XMS_ITS | Encounter Summary ---
Author Organization [employer] Address [address] [facility] 7t [place] [address] Care Team Providers Care Patient Case Coordinator Name Role Phone Kalpana Baptiste MD Primary Care Provide r Betsy Wray RN Unavailable Unavailable Erika Saldivar Unavailable Reason for Visit * Reason Comments Med Refill Encounter Details Date Type Department Care Team ([facility] st Contact Info) Description 05/15/2023 Refill [facility] MEDICINE [address] [place], [place] [phone] Kalpana Baptiste MD 230 [place] [address] Primary osteoarthritis of both knees; Heartburn Social [...] 1:00 PM EST Clinical Support [facility] MEDICINE [address] [place] [address] Amnada Waldrop RN 06/22/2025 12:45 PM EST Office Visit [facility] ADULT DENTAL [address] [place] [address] Leora, Gloria [address] [place] [address] 07/05/2025 1:00 PM EST Office Visit [facility] OPTOMETRY [address] [place] [address] Jonathon, Beata, OD 230 [place] [address] documented as of this encounter Visit Diagnoses Diagnosis Primary osteoarthritis of both knees Heartburn documented in this encounter Additional Health Concerns Assessment Noted Time PHQ-9 Depression Total Score: 0 08/22/19 23 10:06 AM EDT documented as of this encounter Care Teams Patient Case Coordinator Relationship Specialty Start Date End Date Kalpana Baptiste MD [address] [place] [phone] PCP - General Family Medicine 06/14/20 Betsy Wray RN [address] [place] [address] Registered Nurse Family Medicine 09/28/24 12/30/24 Erika Saldivar 09/28/24 01/10/25 documented as of this encounter
--- OUTSIDE RECORDS SUMMARY | 2025-04-18 02:46 | XMS_ITS | Encounter Summary ---
Author Organization [employer] Address [address] [facility] 7t [place] [address] Care Team Providers Care Trauma Doctor Name Role Phone Kalpana Baptiste MD Primary Care Provide r Betsy Wray RN Unavailable Unavailable Erika Saldivar Unavailable Reason for Visit * Reason Comments Med Refill Encounter Details Date Type Department Care Team ([facility] Contact Info) Description 06/01/2022 Refill [facility] CHC MED & PEDS [address] [place], [place] [phone] Neida Garrett DO [address] [place] [address] Social History Tobacco Use Types Packs/Day Years [...] 05/03/2025 1:00 PM EST Clinical Support [facility] MEDICINE [address] [place], [place] [phone] Amanda Waldrop RN 06/22/2025 12:45 PM EST Office Visit [facility] ADULT DENTAL [address] [place] [address] Pierre Coreyaris [address] [place] [address] 07/05/2025 1:00 PM EST Office Visit [facility] OPTOMETRY [address] [place] [address] Beata Holt, OD [address] [place] [address] documented as of this encounter Visit Diagnoses Not on filedocumented in this encounter Care Teams Trauma Doctor Relationship Specialty Start Date End Date Kalpana Baptiste MD [address] [place] [address] PCP - General Family Medicine 06/14/20 Betsy Wray RN [address] [place] [address] Registered Nurse Family Medicine 09/28/24 12/30/24 Erika Saldivar 09/28/24 01/10/25 documented as of this encounter
--- NOTE | 2025-04-18 02:58 | ED.EXTPRO ---
HPI - Extremity Problem General Chief complaint: Extremity Injury, Upper Stated complaint: hand/finger pain Time Seen by Provider: 04/18/25 02:31 Source: patient Limitations: language barrier History of Present Illness ED Provider: Mary Ellen Arenas PA-C HPI Narrative: 60-year-old female with a history of known osteoarthritis, morbid obesity, diabetes with peripheral neuropathy, hypertension, hyperlipidemia, sleep apnea, who presents with right hand and index finger pain x1 day. Patient did not sustain any trauma, she is not complaining of any overuse injury. Denies redness, warmth of the finger, she is able to flex and extend. No fever. Related Data Home Medications ?Medication ?Instructions ?Recorded ?Confirmed citalopram 40 mg tablet 40 mg PO DAILY 02/15/20 03/08/25 cholecalciferol (vitamin D3) 25 25 mcg PO DAILY 02/16/20 03/08/25 mcg (1,000 unit) capsule mirtazapine 15 mg tablet 30 mg PO BEDTIME PRN Sleep 11/28/20 03/08/25 albuterol sulfate 2.5 mg/3 mL 2.5 mg inhalation TID 10/07/21 03/08/25 (0.083 %) solution for nebulization albuterol sulfate 90 mcg/actuation 2 puff inhalation Q4-6H PRN 10/07/21 03/08/25 aerosol inhaler (ProAir HFA) Shortness Of Breath diclofenac sodium 1 % topical gel 2 g topical BID 10/07/21 03/08/25 fluticasone propionate 50 2 spray intranasal DAILY PRN 10/07/21 03/08/25 mcg/actuation nasal Allergy Symptoms spray,suspension lidocaine 5 % topical patch 1 patch topical DAILY 10/07/21 03/08/25 (Lidoderm) loratadine 10 mg tablet 10 mg PO DAILY PRN Allergy Symptoms 10/07/21 03/08/25 ruxolitinib 5 mg tablet (Jakafi) 5 mg PO BID 10/07/21 03/08/25 amlodipine 5 mg tablet (Norvasc) 10 mg PO DAILY 02/18/23 03/08/25 cyanocobalamin (vitamin B-12) 1,000 mcg IM QMONTH 02/18/23 03/08/25 1,000 mcg/mL injection solution fluticasone propionate 110 1 puff inhalation Q12H 02/18/23 03/08/25 mcg/actuation HFA aerosol inhaler (Flovent HFA) lisinopril 5 mg tablet 5 mg PO DAILY 02/18/23 03/08/25 pravastatin 40 mg tablet 40 mg PO BEDTIME 02/18/23 03/08/25 Previous Rx's ?Medication ?Instructions ?Recorded metformin 500 mg tablet 500 mg PO BIDWM #60 tabs 01/18/22 sitagliptin phosphate 50 mg tablet 50 mg PO DAILY 90 days #90 tabs 01/18/22 (Januvia) famotidine 40 mg tablet (Pepcid) 40 mg PO BEDTIME 30 days #30 tabs 07/26/22 pantoprazole 40 mg tablet,delayed 40 mg PO DAILY@0630 #30 tabs 07/26/22 release (Protonix) ferrous sulfate 325 mg (65 mg 325 mg PO DAILY #30 tabs 08/08/22 iron) tablet acetaminophen 325 mg tablet 650 mg (2 x 325 mg) PO Q6H PRN 03/12/23 Pain, Mild (Pain Scale 1-3) 30 days #240 tabs docusate sodium 100 mg capsule 100 mg PO BID 14 days #28 caps 03/12/23 enoxaparin 40 mg/0.4 mL 40 mg (0.4 mL) subcut Q24H 35 days 03/12/23 subcutaneous syringe #14 mL walker #1 ea 03/24/23 colchicine 0.6 mg tablet 0.6 mg PO DAILY #30 tabs 04/08/23 ibuprofen 600 mg tablet 600 mg PO Q6H PRN fever or pain 04/08/23 #30 tabs allopurinol 100 mg tablet 100 mg PO DAILY #90 tabs 06/03/23 ruxolitinib 5 mg tablet (Jakafi) 5 mg PO BID #180 tabs 12/15/23 morphine 15 mg immediate release 15 mg PO Q8H PRN pain #10 tabs 03/19/24 tablet tramadol 50 mg tablet 50 mg PO Q8H PRN severe pain 09/26/24 (scale score 7-10) #12 tabs meloxicam 15 mg tablet 15 mg PO DAILY PRN pain #15 tabs 04/18/25 prednisone 20 mg tablet 40 mg (2 x 20 mg) PO DAILY #8 tabs 04/18/25 Allergies Allergy/AdvReac Type Severity Reaction Status Date / Time aspirin (ASPIRIN) Allergy Intermediate SWELLING/ITCHING, Verified 04/17/25 22:19 rash Penicillins Allergy Intermediate ITCHING Verified 04/17/25 22:19 vancomycin (VANCOMYCIN) AdvReac Intermediate RED MAN Verified 04/17/25 22:19 SYNDROME PER [facility] Past Medical History Medical History (Updated 04/18/25 @ 03:08 by ODALYS Ellis) BERNIE (obstructive sleep apnea) Acute hypoxic respiratory failure Morbid obesity Anemia Hx of radiation therapy Hx of transfusion of packed red blood cells COVID-19 vaccine series completed Osteoarthritis of wrist Obesity due to excess calories Osteoarthritis of knees, bilateral Hiatal hernia History of myelofibrosis History of depression Anemia BERNIE (obstructive sleep apnea) Biliary dyskinesia CKD stage 3 due to type 2 diabetes mellitus Chronic myeloproliferative disease History of gastritis GERD (gastroesophageal reflux disease) Diabetic neuropathy associated with type 2 diabetes mellitus Diabetic nephropathy Morbid obesity due to excess calories Hypertension Diabetes type 2, controlled Asthma Vitamin B12 deficiency Dyslipidemia Surgical History Bone marrow replaced by transplant History of resection of meningioma H/O stem cell transplant Hx of colonoscopy Hx of breast reduction, elective Hx of esophagogastroduodenoscopy History of partial hysterectomy Family History Family History Father Heart problem HTN (hypertension) Mother Diabetes Family/Other Diabetes HTN (hypertension) Heart problem Sister Cancer Social History Social History Household Members: None Housing: Apartment Are you a primary childbirth and infant care teacher to a significant other at home: No Do you presently have visiting nurse or other home services: No Alcohol intake: never Patient Tobacco Use Status: Never used Tobacco Advance Directives: Yes Advance Directives on File: Yes Advance Directives Date on File: 03/13/23 Do you have a plan to hurt others: No Plan service: No Current occupational status: disabled Physical Exam Vital Signs: Vital Signs: Last Vital Signs Temp 98.3 F 04/17/25 22:15 Pulse 87 04/17/25 22:15 Resp 16 04/17/25 22:15 BP 121/73 04/17/25 22:15 Pulse Ox 98 04/17/25 22:15 O2 Del Method Room Air 04/17/25 22:15 BMI result Body Mass Index 28.2 Medical Decision Making Medical Decision Making [facility] Narrative: 60-year-old female with a history of known osteoarthritis, morbid obesity, diabetes with peripheral neuropathy, hypertension, hyperlipidemia, sleep apnea, who presents with right hand and index finger pain x1 day. Patient did not sustain any trauma, she is not complaining of any overuse injury. Denies redness, warmth of the finger, she is able to flex and extend. No fever. Problem: Known arthritis, diabetes History: Per patient I have considered the following differential diagnoses: Fracture, dislocation, tenosynovitis, cellulitis, arthritis, gout, septic joint Plan: X-rays ordered from triage the patient has a arthritis. She is able to flex and extend, this is not consistent with tenosynovitis. This is not a septic joint. I also I have no suspicion for gout given the absence of redness, decreased range of motion and there was no exquisite pain while palpating the finger. We will treat for arthritis flare I have independently reviewed the following tests: X-ray right hand: Differential Diagnosis Differential Diagnoses: The differential diagnosis associated with the presentation includes See [facility] Admission/Observation Consideration of admission/observation: Escalation of care including admission/observation considered Not applicable Radiology Impression Discussion of test interpretation with radiology: I have reviewed the radiologist's reading. Discharge Plan Discharge Clinical Impression: Osteoarthritis Qualifiers: Osteoarthritis location: hand Osteoarthritis type: unspecified Laterality: right Qualified Code(s): M19.041 - Primary osteoarthritis, right hand Patient Disposition: Home, Self-Care Instructions: Osteoarthritis (ED) Additional Instructions: The x-ray revealed that you have arthritis. See home care instructions. Use the meloxicam as directed. Use the prednisone as directed. Take both medications with food. Follow up with your primary care provider as needed. Prescriptions: New meloxicam 15 mg tablet 15 mg PO DAILY PRN (Reason: pain) Qty: 15 0RF prednisone 20 mg tablet 40 mg PO DAILY Qty: 8 0RF No Action metformin 500 mg tablet 500 mg PO BIDWM Qty: 60 4RF Januvia 50 mg tablet 50 mg PO DAILY 90 Days Qty: 90 0RF Rx Instructions: Dose reduced based on GFR ferrous sulfate 325 mg (65 mg iron) tablet 325 mg PO DAILY Qty: 30 6RF citalopram 40 mg Tablet 40 mg PO DAILY allopurinol 100 mg Tablet 100 mg PO DAILY Qty: 90 4RF Jakafi 5 mg Tablet 5 mg PO BID Qty: 180 4RF lidocaine [Lidoderm] 5 % Adhesive Patch,Medicated 1 patch TOPICAL DAILY Rx Instructions: leave on most painful area for up to 12 hrs fluticasone propionate 50 mcg/actuation [place],Suspension 2 spray INTRANASAL DAILY PRN (Reason: Allergy Symptoms) Rx Instructions: administer into each nostril loratadine 10 mg Tablet 10 mg PO DAILY PRN (Reason: Allergy Symptoms) diclofenac sodium 1 % Gel 2 g TOPICAL BID Rx Instructions: apply to single elbow, wrist or hand; for hand includes palm/fingers/back of hand albuterol sulfate 2.5 mg /3 mL (0.083 %) solution for nebulization 2.5 mg inhalation TID albuterol sulfate [ProAir HFA] 90 mcg/actuation Hfa Aerosol Inhaler 2 puff INHALATION Q4-6H PRN (Reason: Shortness Of Breath) Jakafi 5 mg Tablet 5 mg PO BID amlodipine [Norvasc] 5 mg tablet 10 mg PO DAILY cyanocobalamin (vitamin B-12) 1,000 mcg/mL Solution 1,000 mcg IM QMONTH lisinopril 5 mg Tablet 5 mg PO DAILY pravastatin 40 mg Tablet 40 mg PO BEDTIME fluticasone propionate [Flovent HFA] 110 mcg/actuation Hfa Aerosol Inhaler 1 puff INHALATION Q12H acetaminophen 325 mg Tablet 650 mg PO Q6H PRN (Reason: Pain, Mild (Pain Scale 1-3)) 30 Days Qty: 240 0RF docusate sodium 100 mg Capsule 100 mg PO BID 14 Days Qty: 28 0RF enoxaparin 40 mg/0.4 mL Syringe 40 mg subcut Q24H 35 Days Qty: 14 0RF tramadol 50 mg tablet 50 mg PO Q8H PRN (Reason: severe pain (scale score 7-10)) Qty: 12 0RF colchicine 0.6 mg tablet 0.6 mg PO DAILY Qty: 30 0RF ibuprofen 600 mg tablet 600 mg PO Q6H PRN (Reason: fever or pain) Qty: 30 0RF morphine 15 mg tablet 15 mg PO Q8H PRN (Reason: pain) Qty: 10 0RF Rx Instructions: Partial Fill upon patient request. cholecalciferol (vitamin D3) 25 mcg (1,000 unit) capsule 25 mcg PO DAILY mirtazapine 15 mg tablet 30 mg PO BEDTIME PRN (Reason: Sleep) famotidine [Pepcid] 40 mg tablet 40 mg PO BEDTIME 30 Days Qty: 30 6RF pantoprazole [Protonix] 40 mg tablet,delayed release (DR/EC) 40 mg PO DAILY@0630 Qty: 30 6RF (ALVA) najma Misc See Rx Instructions .MEDSUPPLY Qty: 1 0RF Rx Instructions: Abdi yao Print Language: Kinyarwanda
[2025-04-18 03:17] VITALS: BP 121/73; PULSE 87; RESP 16; TEMP 36.8; O2SAT 98
== END 2025-04-18 03:27 | disposition home or self-care (01) ==
PROVIDERS: Emergency Provider Emergency Medicine; PCP Internal Medicine
DX: M19.041 Primary osteoarthritis, right hand (principal); I12.9 Hypertensive chronic kidney disease with stage 1 through stage 4 chronic kidney disease, or unspecified chronic kidney disease; E11.22 Type 2 diabetes mellitus with diabetic chronic kidney disease; N18.30 Chronic kidney disease, stage 3 unspecified; E78.5 Hyperlipidemia, unspecified
CPT/HCPCS: 73130; 96372; 99283; 99284; J1885

== ENCOUNTER → 2025-04-17 23:19 | Outpatient (BNV) | payer MEDICAID, SELFPAY | PROVIDERS: PCP Internal Medicine; Visit Provider Radiology Neuroradiology | DX: M19.041 Primary osteoarthritis, right hand (principal) | CPT/HCPCS: 73130 ==